=== PATIENT | male | born 1935 | race Caucasian/White ===

== ENCOUNTER 2016-10-02 09:07 | Inpatient (IN) | payer OTHER ==
[2016-10-02 09:27] VITALS: BMI 34.9
--- NOTE | 2016-10-02 09:30 | PDOC ---
History of Present Illness - General History Source: Patient Exam Limitations: No Limitations - History of Present Illness Initial Comments: 10/02/16 09:51 The patient is a 81 year old male with significant medical hx of dementia, aortic aneurysm (mild ascending aortic aneurysm (4.2 cm) per 01/[address]), CAD ( stents x2 in 2010; thrombectomy & PCI of proximal and mid LAD with Promus Premier stents and PTCA of D1 on 12/18/2015 at [facility] for acute/subacute anteroseptal [place]), recent Tib/Fib fracture, HTN, hyperlipidemia, constipation, diverticulosis, DM and hypothyroidism, who presents to the ED with intermittent tremors since last night. Patient states he is not speaking properly but can't describe the issue well. Patient states he was also experiencing right lower abdominal pain last night that resolved itself. Patient denies feeling cold. Patient denies chest pain. Patient denies SOB. Patient denies fever, nausea, vomiting, diarrhea. PCP: Dr. Rowan <Daniel Leach - Last Filed: 10/02/16 13:17> <Desiree Aguilar - Last Filed: 10/02/16 19:02> - General Chief Complaint: Tremors Stated Complaint: shaking Time Seen by Provider: 10/02/16 09:15 Past History <Daniel Leach - Last Filed: 10/02/16 13:17> - Past Medical History Anemia: No Asthma: No Cancer: No Cardiac Disorders: Yes (2 cardiac stents) CVA: No COPD: No CHF: No DVT: No Dementia: Yes Diabetes: Yes (IDDM) Dialysis: No GI Disorders: Yes (DIVERTICULITIS) Disorders: No HTN: Yes Hypercholesterolemia: Yes HIV: No Kidney Stones: No Liver Disease: No Psychiatric Problems: No Suicide Attempt (Hx): No Seizures: No Thyroid Disease: Yes (HYPOTHYROIDISM) Lung CA: No - Surgical History Abdominal Surgery: Yes (FOR DIVERTICULITIS; partial colectomy) Appendectomy: No Cardiac Surgery: Yes (STENT X 2) Cholecystectomy: No Gastric Stapling: No GI Surgery: Yes Lung Surgery: No Neurologic Surgery: No Orthopedic Surgery: No - Immunization History Td Vaccination: No TDAP Vaccination: (unknown on last date now will receive on 12/18/2015) Immunization Up to Date: Yes (FLU ) - Psycho/Social/Smoking Cessation Hx Anxiety: No Suicidal Ideation: No Smoking Status: No Smoking History: Never smoked Have you smoked in the past 12 months: No Number of Cigarettes Smoked Daily: 0 Hx Alcohol Use: No Drug/Substance Use Hx: No Substance Use Type: None Hx Substance Use Treatment: No <AguilarDesiree - Last Filed: 10/02/16 19:02> - Past Medical History Allergies/Adverse Reactions: Allergies Allergy/AdvReac Type Severity Reaction Status Date / Time No Known Drug Allergies Allergy Verified 10/02/16 09:16 Home Medications: Ambulatory Orders Acetaminophen [Pain Relief] 650 mg PO PRN PRN 07/29/16 Albuterol 2.5/Ipratropium 0.5 [Duoneb -] 1 neb NEB Q4H PRN 07/29/16 Alprazolam [Xanax] 0.25 mg PO BID 07/29/16 Atorvastatin Ca [Lipitor] 80 mg PO HS 07/29/16 Bacitracin - [Bacitracin Topical Ointment -] 1 applic TP DAILY 07/29/16 Carvedilol 3.125 mg PO BID 07/29/16 Cetirizine HCl [Zyrtec -] 10 mg PO DAILY 07/29/16 Duloxetine HCl [Cymbalta] 60 mg PO DAILY 07/29/16 Enalapril Maleate 2.5 mg PO DAILY 07/29/16 Gabapentin 200 mg PO BID 07/29/16 Insulin Detemir [Levemir Flextouch] 40 unit SQ BID 07/29/16 Lipase/Protease/Amylase [Creon Dr 6,000 Units Capsule] 1 cap PO TID 07/29/16 Methylnaltrexone [place] [Relistor] 12 mg SQ DAILY 07/29/16 Montelukast Na [Singulair -] 10 mg PO HS 07/29/16 Omeprazole 20 mg PO BID 07/29/16 Oxycodone HCl 5 mg PO Q4H PRN 07/29/16 Polyethylene Glycol 3350 [Miralax 119 gm Btl -] 17 gm PO DAILY 07/29/16 Tamsulosin HCl [Flomax] 0.4 mg PO DAILY 07/29/16 Ticagrelor [Brilinta] 90 mg PO BID 07/29/16 Aspirin Coated [Ecotrin -] 81 mg PO DAILY tablet.ec 08/04/16 Chlorhexidine Gluconate [Peridex -] 15 ml MM BID cup 08/04/16 Ranolazine [Ranexa -] 500 mg PO BID tab 08/04/16 Acetylcysteine 10% [Mucomyst] 200 mg NEB TID 10/02/16 Prednisone [Deltasone -] 20 mg PO DAILY 10/02/16 Review of Systems - Review of Systems Able to Perform ROS?: Yes Comments:: 10/02/16 09:52 GENERAL/CONSTITUTIONAL: + shaking. No fever. No weakness. HEAD, EYES, EARS, NOSE AND THROAT: No change in vision. No ear pain or discharge. No sore throat. CARDIOVASCULAR: No chest pain or shortness of breath. RESPIRATORY: No cough, wheezing, or hemoptysis. GASTROINTESTINAL: No nausea, vomiting, diarrhea or constipation. GENITOURINARY: No dysuria, frequency, or change in urination. MUSCULOSKELETAL: No joint or muscle swelling or pain. No neck or back pain. SKIN: No rash NEUROLOGIC: No headache, vertigo, loss of consciousness, or change in strength/ sensation. ENDOCRINE: No increased thirst. No abnormal weight change. HEMATOLOGIC/LYMPHATIC: No anemia, easy bleeding, or history of blood clots. ALLERGIC/IMMUNOLOGIC: No hives or skin allergy. <Daniel Leach - Last Filed: 10/02/16 13:17> *Physical Exam - Vital Signs Last Vital Signs Temp Pulse Resp BP Pulse Ox 98.4 F 81 18 142/57 100 10/02/16 09:25 10/02/16 09:25 10/02/16 09:25 10/02/16 09:25 10/02/16 09:25 <Daniel Leach - Last Filed: 10/02/16 13:17> - Vital Signs Last Vital Signs Temp Pulse Resp BP Pulse Ox 98.4 F 81 18 142/57 100 10/02/16 09:25 10/02/16 09:25 10/02/16 09:25 10/02/16 09:25 10/02/16 09:25 - Physical Exam Comments: GENERAL: Awake, alert, and fully oriented, in no acute distress. Obese. HEAD: No signs of trauma EYES: PERRLA, EOMI, sclera anicteric, conjunctiva clear ENT: Auricles normal inspection, hearing grossly normal, nares patent, oropharynx clear without exudates. Dry mucosa. NECK: Normal ROM, supple, no lymphadenopathy, JVD, or masses LUNGS: Good air entry B/L. Dec breath sounds L base. HEART: Irregularly irregular. ABDOMEN: Soft, nontender, normoactive bowel sounds. No guarding, no rebound. No masses EXTREMITIES: Normal range of motion, no edema. No clubbing or cyanosis. No cords, erythema, or tenderness NEUROLOGICAL: Cranial nerves II through XII grossly intact. Normal speech, normal gait SKIN: Warm, Dry, normal turgor, no rashes or lesions noted. <Desiree Aguilar - Last Filed: 10/02/16 19:02> Heart Score/ECG Review - ECG Impressions Comment:: EKG read 09:28- afib, rate 68 bpm Compared with prior EKGs from 08/03/16 and 09/19/16- no afib present. <Desiree Aguilar - Last Filed: 10/02/16 19:02> ED Treatment Course - LABORATORY CBC & Chemistry Diagram: 10/02/16 10:00 10/02/16 10:00 <Daniel Leach - Last Filed: 10/02/16 13:17> - LABORATORY CBC & Chemistry Diagram: 10/02/16 10:00 10/02/16 10:00 <Desiree Aguilar - Last Filed: 10/02/16 19:02> Medical Decision Making - Medical Decision Making 10/02/16 12:40 Discussed case with PCP ( Dr. Rowan) at 12:40. 10/02/16 12:[address] Gonzales (cardiology) at 12:54. 10/02/16 13:[address] Gonzales at 13:17 <Daniel Leach - Last Filed: 10/02/16 13:17> - Medical Decision Making 10/02/16 13:21 Case d/w Dr. Gonzales. Pt with multiple comorbidities, now with new onset afib. Will evaluate. <Desiree Aguilar - Last Filed: 10/02/16 19:02> *DC/Admit/Observation/Transfer - Attestations Scribe Attestion: 10/02/16 09:53 Documentation prepared by Daniel Leach, acting as medical assistant instructor for Desiree Aguilar MD, . <Daniel Leach - Last Filed: 10/02/16 13:17> - Discharge Dispostion Admit: Yes <Desiree Aguilar - Last Filed: 10/02/16 19:02> Diagnosis at time of Disposition: Atrial fibrillation Qualifiers: Atrial fibrillation type: unspecified Qualified Code(s): I48.91 - Unspecified atrial fibrillation - Discharge Dispostion Condition at time of disposition: Stable - Referrals
[2016-10-02 10:35] LABS: BASOPHIL 0.8 % (0-2.0); BILIRUBIN,TOTAL 0.6 mg/dL (0.2-1.0); CALCIUM 8.6 mg/dL (8.5-10.1); CREATININE 1.2 mg/dL (0.7-1.3); EOSINOPHIL 1.7 % (0-4.5); MCHC 33.1 g/dl (32.0-35.9); MEAN CELL VOLUME 87.7 fl (80-96); NEUTROPHILS 76.3 % (42.8-82.8); PLATELET COUNT 247 K/MM3 (134-434); RDW 18.7 % (11.9-15.9); TOT PROT 6.7 g/dl (6.4-8.2); WHITE BLOOD COUNT 12.9 K/mm3 (4.0-10.0)
[2016-10-02 10:37] LABS: TROPONIN I 0.06 ng/ml (0.00-0.05)
[2016-10-02 10:41] LABS: URINE APPEARANCE CLEAR; URINE BILIRUBIN NEGATIVE (NEGATIVE); URINE BLOOD NEGATIVE (NEGATIVE); URINE COLOR LTYELLOW; URINE GLUCOSE (UA) 2+ (NEGATIVE); URINE KETONE NEGATIVE (NEGATIVE); URINE LEUK ESTERASE NEGATIVE (NEGATIVE); URINE NITRITE NEGATIVE (NEGATIVE); URINE PROTEIN NEGATIVE (NEGATIVE); URINE UROBILINOGEN NEGATIVE E.U./dl (0.2-1.0)
[2016-10-02 11:07] LABS: INR 1.05 (0.82-1.09); PROTHROMBIN TIME (PATIENT) 11.6 SEC (9.98-11.88)
[2016-10-02] MEDS ORDERED: POTASSIUM CHLORIDE TABS 20 MEQ TABLET.ER (FP) PO ONE ×3 (11:26→11:58)
--- NOTE | 2016-10-02 13:39 | CONSULT ---
Consult Consult Specialty:: Cardiology Referred by:: Dr. Aguilar/Dr. Rowan Reason for Consultation:: New onset atrial fibrillation - History of Present Illness History of Present Illness: 81 yo male with remote smoking history, HTN, hyperlipidemia, DM, CAD -> reported stents x2 in 2010 (no prior [place]), acute/subacute anteroseptal [place] on 12/17 and underwent thrombectomy and PCI of proximal and mid LAD with Promus Premier stents and PTCA of D1 at [facility], and ischemic cardiomyopathy (LVEF 34 % per 02/16/16 nuclear stress test), who presents to ED with intermittent tremors of hands/arms since last evening. Denies chest pain, palpitations, orthopnea, or dyspnea. Patient was noted to be in new onset atrial fibrillation per ECG. 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 No: Alzheimer's Cardio/Vascular: Yes: Aneurysm (mild ascending aortic aneurysm (4.2 cm) per chest CT), CAD (stents x2 in 2010; thrombectomy & PCI of proximal and mid LAD with Promus Premier stents and PTCA of D1 on 12/18/15 at [facility] for acute/ subacute anteroseptal [place]), HTN, Hyperlipdemia, Other (ischemic cardiomyopathy ( LVEF 34% per 02/16/16 nuclear study)) Gastrointestinal: Yes: Constipation, Diverticulosis Musculoskeletal: Yes: Other (rib fx's right) Endocrine: Yes: Diabetes Mellitus, Hypothyroidism - Past Surgical History Past Surgical History: Yes: Arthrosocopy (Right knee arthroscopy w/ partial medial and lateral meniscectomy 09/01/15), Colectomy Additional Surgical History: Left tib/fib fracture s/p lM linda 07/14/16 - Alcohol/Substance Use Hx Alcohol Use: No History of Substance Use: reports: None - Smoking History Smoking history: Never smoked Have you smoked in the past 12 months: No Aproximately how many cigarettes per day: 0 - Social History Usual Living Arrangement: Correction (since last d/c) 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 History of Recent Travel: No Home Medications - Allergies Allergies/Adverse Reactions: Allergies Allergy/AdvReac Type Severity Reaction Status Date / Time No Known Drug Allergies Allergy Verified 10/02/16 09:16 - Home Medications Home Medications: Ambulatory Orders Acetaminophen [Pain Relief] 650 mg PO PRN PRN 07/29/16 Albuterol 2.5/Ipratropium 0.5 [Duoneb -] 1 neb NEB Q4H PRN 07/29/16 Alprazolam [Xanax] 0.25 mg PO BID 07/29/16 Atorvastatin Ca [Lipitor] 80 mg PO HS 07/29/16 Bacitracin - [Bacitracin Topical Ointment -] 1 applic TP DAILY 07/29/16 Carvedilol 3.125 mg PO BID 07/29/16 Cetirizine HCl [Zyrtec -] 10 mg PO DAILY 07/29/16 Duloxetine HCl [Cymbalta] 60 mg PO DAILY 07/29/16 Enalapril Maleate 2.5 mg PO DAILY 07/29/16 Gabapentin 200 mg PO BID 07/29/16 Insulin Detemir [Levemir Flextouch] 40 unit SQ BID 07/29/16 Lipase/Protease/Amylase [Creon Dr 6,000 Units Capsule] 1 cap PO TID 07/29/16 Methylnaltrexone [place] [Relistor] 12 mg SQ DAILY 07/29/16 Montelukast Na [Singulair -] 10 mg PO HS 07/29/16 Omeprazole 20 mg PO BID 07/29/16 Oxycodone HCl 5 mg PO Q4H PRN 07/29/16 Polyethylene Glycol 3350 [Miralax 119 gm Btl -] 17 gm PO DAILY 07/29/16 Tamsulosin HCl [Flomax] 0.4 mg PO DAILY 07/29/16 Ticagrelor [Brilinta] 90 mg PO BID 07/29/16 Aspirin Coated [Ecotrin -] 81 mg PO DAILY tablet.ec 08/04/16 Chlorhexidine Gluconate [Peridex -] 15 ml MM BID cup 08/04/16 Ranolazine [Ranexa -] 500 mg PO BID tab 08/04/16 Acetylcysteine 10% [Mucomyst] 200 mg NEB TID 10/02/16 Prednisone [Deltasone -] 20 mg PO DAILY 10/02/16 Family Disease History - Family Disease History Family History: Denies (premature CAD or SCD) Review of Systems - Review of Systems Constitutional: reports: No Symptoms Eyes: reports: No Symptoms HENT: reports: No Symptoms Neck: reports: No Symptoms Cardiovascular: reports: No Symptoms Respiratory: reports: No Symptoms Gastrointestinal: reports: No Symptoms Genitourinary: reports: No Symptoms Neurological: reports: Tremors Endocrine: reports: No Symptoms Hematology/Lymphatic: reports: No Symptoms Vital Signs: Vital Signs Temperature 98.3 F 10/02/16 10:55 Pulse Rate 63 10/02/16 10:55 Respiratory Rate 20 10/02/16 10:55 Blood Pressure 141/80 10/02/16 10:55 O2 Sat by Pulse Oximetry (%) 100 10/02/16 10:55 Constitutional: Yes: No Distress Eyes: Yes: Conjunctiva Clear, EOM Intact HENT: Yes: Atraumatic, Normocephalic Respiratory: Yes: CTA Bilaterally Gastrointestinal: Yes: Normal Bowel Sounds, Soft. No: Tenderness Cardiovascular: Yes: Pulse Irregular JVD: No Carotid Bruit: No Heart Sounds: Yes: S1, S2 Murmur: No: Systolic Murmur Edema: No Neurological: Yes: Alert, Oriented Psychiatric: Yes: WNL - Other Data Labs, Other Data: INR, PTT INR 1.05 (0.82-1.09) 10/02/16 10:00 10/02/16 ECG: Atrial fibrillation, rate 68 bpm, anteroseptal infarct (old), non- specific ST-T abnormalities. Imaging - Results Chest X-ray: Image Reviewed (No effusions) Assessment/Plan 81 yo male with remote smoking history, HTN, hyperlipidemia, DM, CAD -> reported stents x2 in 2010 (no prior [place]), acute/subacute anteroseptal [place] on 12/17 and underwent thrombectomy and PCI of proximal and mid LAD with Promus Premier stents and PTCA of D1 at [facility], and ischemic cardiomyopathy (LVEF 34 % per 02/16/16 nuclear stress test). Patient presented to ED with intermittent tremors of hands/arms since last evening. Patient was also incidently noted to be in new onset atrial fibrillation. Currently rate controlled. Denies chest pain, palpitations, orthopnea, or dyspnea. [id number] score = 5 (6.7% annual risk of stroke) Risks and benefits of anticoagulation were discussed with patient. It was decided to try coumadin 5 mg po daily. INR goal 2-3. Do not need to cover with lovenox. Patient currently has Medicare, however, if patient can afford one of the NOACs (novel oral anticoagulants), then he can be changed to Xarelto or Eliquis. Patient will be at increased risk of bleeding given that he is also on aspirin and Brilinta for anteroseptal [place] on 12/18/15. However, Brilinta should ideally be continued until 11/2016 (1 year after [place]). Will continue Brilinta until that time unless patient should develop bleeding complications prior to that date. No further cardiac testing needed at this time. Will continue patient's home cardiac medical regimen. Will follow. Call with questions.
[2016-10-02] MEDS ORDERED: WARFARIN NA 5 MG TABLET (UD) ONE (14:08)
[2016-10-02] MEDS ORDERED: WARFARIN NA 5 MG TABLET (UD) PO ONE (14:15)
--- NOTE | 2016-10-02 17:17 | EKG ---
Test Reason : Blood Pressure : / mmHG Vent. Rate : 068 BPM Atrial Rate : 064 BPM P-R Int : 000 ms QRS Dur : 102 ms QT Int : 482 ms P-R-T Axes : 000 -02 089 degrees QTc Int : 512 ms ATRIAL FIBRILLATION ANTEROSEPTAL INFARCT (CITED ON OR BEFORE 18-DEC-2015) ABNORMAL ECG WHEN COMPARED WITH ECG OF 19-SEP-2016 15:31, ATRIAL FIBRILLATION HAS REPLACED SINUS RHYTHM Confirmed by DAVID LEDESMA, JEN ([id number]) on 10/02/2016 5:16:54 PM Referred By: Confirmed By:JEN HERNANDEZ MD
--- NOTE | 2016-10-02 17:24 | EKG ---
Test Reason : Blood Pressure : / mmHG Vent. Rate : 063 BPM Atrial Rate : 070 BPM P-R Int : 000 ms QRS Dur : 096 ms QT Int : 470 ms P-R-T Axes : 000 -12 185 degrees QTc Int : 480 ms ATRIAL FIBRILLATION ANTEROSEPTAL INFARCT (CITED ON OR BEFORE 18-DEC-2015) ABNORMAL ECG WHEN COMPARED WITH ECG OF 02-OCT-2016 09:25, NO SIGNIFICANT CHANGE WAS FOUND Confirmed by DAVID LEDESMA, JEN ([id number]) on 10/02/2016 5:23:47 PM Referred By: Confirmed By:JEN HERNANDEZ MD
[2016-10-02] MEDS ORDERED: PT OWN MED DRAWER 7, Y5N ONE (21:43)
[2016-10-02] MEDS: CARVEDILOL 3.125 MG TABLET (FP) PO SCH (22:33)
[2016-10-02] MEDS: TICAGRELOR 90 MG TABLET PO SCH (22:33)
[2016-10-02] MEDS: ATORVASTATIN CA 80 MG TABLET (FP) PO SCH (22:33)
[2016-10-03 07:30] LABS: INR 1.02 (0.82-1.09); PROTHROMBIN TIME (PATIENT) 11.2 SEC (9.98-11.88)
[2016-10-03 07:37] LABS: CALCIUM 8.7 mg/dL (8.5-10.1)
[2016-10-03 07:40] LABS: CREATININE 1.1 mg/dL (0.7-1.3)
--- NOTE | 2016-10-03 08:05 | HP ---
Admitting History and Physical - Admission History of Present Illness: 81 year old male with significant medical hx of dementia, aortic aneurysm (mild ascending aortic aneurysm (4.2 cm) per 01/[address]), CAD ( stents x2 in 2010; thrombectomy & PCI of proximal and mid LAD with Promus Premier stents and PTCA of D1 on 12/18/2015 at [facility] for acute/subacute anteroseptal [place]), recent Tib/ Fib fracture, HTN, hyperlipidemia, constipation, diverticulosis, DM and hypothyroidism, who presents to the ED with intermittent tremors since last night. Patient states he is not speaking properly but can't describe the issue well. Patient states he was also experiencing right lower abdominal pain last night that resolved itself. 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 No: Alzheimer's Cardiovascular: Yes: Aneurysm (mild ascending aortic aneurysm (4.2 cm) per 01/[address]), CAD (stents x2 in 2010; thrombectomy & PCI of proximal and mid LAD with Promus Premier stents and PTCA of D1 on 12/18/15 at [facility] for acute/ subacute anteroseptal [place]), HTN, Hyperlipdemia, Other (ischemic cardiomyopathy ( LVEF 34% per 02/16/16 nuclear study)) Gastrointestinal: Yes: Constipation, Diverticulosis Heme/Onc: Yes: Anemia Musculoskeletal: Yes: Other (rib fx's right) Endocrine: Yes: Diabetes Mellitus, Hypothyroidism - Past Surgical History Past Surgical History: Yes: Arthrosocopy (Right knee arthroscopy w/ partial medial and lateral meniscectomy 09/01/15), Colectomy - Smoking History Smoking history: Never smoked Have you smoked in the past 12 months: No Aproximately how many cigarettes per day: 0 - Alcohol/Substance Use Hx Alcohol Use: No History of Substance Use: reports: None - Social History 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 History of Recent Travel: No Home Medications - Allergies Allergies/Adverse Reactions: Allergies Allergy/AdvReac Type Severity Reaction Status Date / Time No Known Drug Allergies Allergy Verified 10/02/16 09:16 - Home Medications Home Medications: Ambulatory Orders Acetaminophen [Pain Relief] 650 mg PO PRN PRN 07/29/16 Albuterol 2.5/Ipratropium 0.5 [Duoneb -] 1 neb NEB Q4H PRN 07/29/16 Alprazolam [Xanax] 0.25 mg PO BID 07/29/16 Atorvastatin Ca [Lipitor] 80 mg PO HS 07/29/16 Bacitracin - [Bacitracin Topical Ointment -] 1 applic TP DAILY 07/29/16 Carvedilol 3.125 mg PO BID 07/29/16 Cetirizine HCl [Zyrtec -] 10 mg PO DAILY 07/29/16 Duloxetine HCl [Cymbalta] 60 mg PO DAILY 07/29/16 Enalapril Maleate 2.5 mg PO DAILY 07/29/16 Gabapentin 200 mg PO BID 07/29/16 Insulin Detemir [Levemir Flextouch] 40 unit SQ BID 07/29/16 Lipase/Protease/Amylase [Creon Dr 6,000 Units Capsule] 1 cap PO TID 07/29/16 Methylnaltrexone [place] [Relistor] 12 mg SQ DAILY 07/29/16 Montelukast Na [Singulair -] 10 mg PO HS 07/29/16 Omeprazole 20 mg PO BID 07/29/16 Oxycodone HCl 5 mg PO Q4H PRN 07/29/16 Polyethylene Glycol 3350 [Miralax 119 gm Btl -] 17 gm PO DAILY 07/29/16 Tamsulosin HCl [Flomax] 0.4 mg PO DAILY 07/29/16 Ticagrelor [Brilinta] 90 mg PO BID 07/29/16 Aspirin Coated [Ecotrin -] 81 mg PO DAILY tablet.ec 08/04/16 Chlorhexidine Gluconate [Peridex -] 15 ml MM BID cup 08/04/16 Ranolazine [Ranexa -] 500 mg PO BID tab 08/04/16 Acetylcysteine 10% [Mucomyst] 200 mg NEB TID 10/02/16 Prednisone [Deltasone -] 20 mg PO DAILY 10/02/16 Review of Systems - Review of Systems Cardiovascular: denies: Chest Pain, Palpitations, Shortness of Breath Respiratory: reports: SOB on Exertion Gastrointestinal: reports: Bloating Physical Examination Vital Signs: Vital Signs Temperature 98.0 F 10/03/16 02:44 Pulse Rate 65 10/03/16 02:44 Respiratory Rate 18 10/03/16 02:44 Blood Pressure 116/67 10/03/16 02:44 O2 Sat by Pulse Oximetry (%) 94 L 10/02/16 15:40 Cardiovascular: Yes: Murmur, S1, S2 Respiratory: Yes: Regular, CTA Bilaterally Gastrointestinal: Yes: Normal Bowel Sounds, Soft, Abdomen, Obese, Distention. No: Tenderness Edema: No Imaging - Results X-ray: Report Reviewed Cat Scan: Report Reviewed Problem List - Problems (1) Atrial fibrillation Assessment/Plan: CARDIO CONSULT NOTED ON COUMADIN MONITOR LABS Code(s): I48.91 - UNSPECIFIED ATRIAL FIBRILLATION Qualifiers: Atrial fibrillation type: unspecified Qualified Code(s): I48.91 - Unspecified atrial fibrillation (2) CAD in [place] artery Assessment/Plan: CONTINUE WITH ASA/BRILLINTA Code(s): I25.10 - ATHSCL HEART DISEASE OF [place] CORONARY ARTERY W/O ANG PCTRS (3) Abdominal distension (gaseous) Assessment/Plan: ADD SIMITHICONE ON PPI Code(s): R14.0 - ABDOMINAL DISTENSION (GASEOUS) (4) Diabetes Assessment/Plan: INSULIN BGM Code(s): E11.9 - TYPE 2 DIABETES MELLITUS WITHOUT COMPLICATIONS Qualifiers: Diabetes mellitus type: type 2 (5) Fracture, tibia and fibula, shaft Code(s): S82.209A - UNSP FRACTURE OF SHAFT OF UNSP TIBIA, INIT FOR CLOS FX S82.409A - UNSP FRACTURE OF SHAFT OF UNSP FIBULA, INIT FOR CLOS FX Qualifiers : Encounter type: initial encounter Fracture type: closed Laterality : left Qualified Code(s): S82.202A - Unspecified fracture of shaft of left tibia, initial encounter for closed fracture; S82.402A - Unspecified fracture of shaft of left fibula, initial encounter for closed fracture
[2016-10-03] MEDS ORDERED: ALPRAZolam 0.25 MG TABLET PO PRN (08:07)
[2016-10-03] MEDS ORDERED: ALBUTEROL SO4 2.5/IPRATROPIUM 0.5 INH SOL 3 ML VIAL.NEB. NEB PRN (08:07)
[2016-10-03] MEDS ORDERED: PATIENT'S OWN MEDICATION (NON-FORMULARY) (Acetaminophen [Pain Relief] 650 MG) PO PRN (08:07)
[2016-10-03] MEDS: CARVEDILOL 3.125 MG TABLET (FP) PO SCH ×2 (09:00→22:33)
[2016-10-03] MEDS: FUROSEMIDE 40 MG TABLET (FP) PO SCH (09:00)
[2016-10-03] MEDS: LISINOPRIL 5 MG TABLET (FP) PO SCH (09:00)
[2016-10-03] MEDS: TICAGRELOR 90 MG TABLET PO SCH ×2 (09:00→22:38)
[2016-10-03] MEDS: SPIRONOLACTONE 25 MG TABLET (FP) PO SCH (09:00)
[2016-10-03] MEDS: ASPIRIN COATED 81 MG TABLET.EC PO SCH (09:00)
[2016-10-03] MEDS: ACETAMINOPHEN 325 MG TABLET (FP) PO PRN (09:01)
[2016-10-03] MEDS: predniSONE 10 MG TABLET (UD) PO SCH (10:03)
[2016-10-03] MEDS: TAMSULOSIN HCL 0.4 MG CAP.ER.24H (FP) PO SCH (10:03)
[2016-10-03] MEDS: GABAPENTIN 100 MG CAPSULE (FP) PO SCH ×2 (10:03→22:33)
[2016-10-03] MEDS: DULoxetine HCL 30 MG CAPSULE.DR (FP) PO SCH (10:03)
[2016-10-03] MEDS: POLYETHYLENE GLYCOL 3350 119 GM BTL PO SCH (10:04)
[2016-10-03] MEDS: SIMETHICONE 80 MG TAB.CHEW (FP) PO SCH ×4 (10:04→22:33)
[2016-10-03] MEDS: LORATADINE 10 MG TABLET PO SCH (10:04)
[2016-10-03] MEDS: PANTOPRAZOLE 40 MG TABLET (FP) PO SCH (10:04)
[2016-10-03] MEDS: RANOLAZINE E.R. 500 MG TABLET (FP) PO SCH ×2 (10:04→22:33)
--- NOTE | 2016-10-03 10:32 | PN ---
Progress Note, Physician History of Present Illness: Reports some chest discomfort last night. Denies dyspnea. - Current Medication List Current Medications: Active Medications Acetaminophen (Tylenol -) 650 mg PO Q6H PRN PRN Reason: FEVER OR PAIN Last Admin: 10/03/16 09:01 Dose: 650 mg Albuterol/Ipratropium (Duoneb -) 1 amp NEB Q4H PRN PRN Reason: sob Alprazolam (Xanax -) 0.25 mg PO BID PRN PRN Reason: ANXIETY Aspirin (Ecotrin -) 81 mg PO DAILY [facility] Last Admin: 10/03/16 09:00 Dose: 81 mg Atorvastatin Calcium (Lipitor -) 80 mg PO HS [facility] Last Admin: 10/02/16 22:33 Dose: 80 mg Carvedilol (Coreg -) 3.125 mg PO BID [facility] Last Admin: 10/03/16 09:00 Dose: 3.125 mg Duloxetine HCl (Cymbalta -) 60 mg PO DAILY [facility] Last Admin: 10/03/16 10:03 Dose: 60 mg Furosemide (Lasix -) 40 mg PO DAILY [facility] Last Admin: 10/03/16 09:00 Dose: 40 mg Gabapentin (Neurontin -) 200 mg PO BID [facility] Last Admin: 10/03/16 10:03 Dose: 200 mg Insulin Aspart (Novolog Vial Sliding Scale -) 1 vial SQ ACHS [facility] PRN Reason: Protocol Insulin Detemir (Levemir Vial) 25 units SQ BIDI [facility] Lisinopril (Prinivil) 5 mg PO DAILY [facility] Last Admin: 10/03/16 09:00 Dose: 5 mg Loratadine (Claritin -) 10 mg PO DAILY [facility] Last Admin: 10/03/16 10:04 Dose: 10 mg Methylnaltrexone [place] (Relistor -) 12 mg SQ DAILY [facility] Montelukast Sodium (Singulair -) 10 mg PO HS [facility] Pancrelipase (Creon Dr 6,000 Units Capsule) 1 cap PO TID [facility] Pantoprazole Sodium (Protonix -) 40 mg PO DAILY [facility] Last Admin: 10/03/16 10:04 Dose: 40 mg Polyethylene Glycol (Miralax (For Daily Use) -) 17 gm PO DAILY [facility] Last Admin: 10/03/16 10:04 Dose: Not Given Prednisone (Deltasone -) 10 mg PO DAILY [facility] Last Admin: 10/03/16 10:03 Dose: 10 mg Ranolazine (Ranexa -) 500 mg PO BID [facility] Last Admin: 10/03/16 10:04 Dose: 500 mg Simethicone (Mylicon -) 80 mg PO QID [facility] Last Admin: 10/03/16 10:04 Dose: 80 mg Spironolactone (Aldactone -) 25 mg PO DAILY [facility] Last Admin: 10/03/16 09:00 Dose: 25 mg Tamsulosin HCl (Flomax -) 0.4 mg PO DAILY@0830 [facility] Last Admin: 10/03/16 10:03 Dose: 0.4 mg Ticagrelor (Brilinta -) 90 mg PO BID [facility] Last Admin: 10/03/16 09:00 Dose: 90 mg Warfarin Sodium (Coumadin -) 5 mg PO DAILY@1800 [facility] - Objective Vital Signs: Vital Signs Temperature 98.0 F 10/03/16 02:44 Pulse Rate 65 10/03/16 02:44 Respiratory Rate 18 10/03/16 02:44 Blood Pressure 116/67 10/03/16 02:44 O2 Sat by Pulse Oximetry (%) 94 L 10/02/16 15:40 Constitutional: Yes: No Distress Eyes: Yes: Conjunctiva Clear, EOM Intact HENT: Yes: Atraumatic, Normocephalic Cardiovascular: Yes: Regular Rate and Rhythm Respiratory: Yes: CTA Bilaterally Gastrointestinal: Yes: Normal Bowel Sounds. No: Soft, Tenderness Edema: No Neurological: Yes: Alert, Oriented, Cran Nerves II-XII Intact Labs: CBC, BMP 10/03/16 05:35 INR, PTT INR 1.02 (0.82-1.09) 10/03/16 05:35 Assessment/Plan 81 yo male with remote smoking history, HTN, hyperlipidemia, DM, CAD -> reported stents x2 in 2010 (no prior SC), acute/subacute anteroseptal SC on 12/17 and underwent thrombectomy and PCI of proximal and mid LAD with Promus Premier stents and PTCA of D1 at [facility], and ischemic cardiomyopathy (LVEF 34 % per 02/16/16 nuclear stress test). Patient presented to ED with intermittent tremors of hands/arms. Patient was also incidently noted to be in new onset atrial fibrillation, but rate controlled. Currently rate controlled. [id number] score = 5 (6.7% annual risk of stroke) Risks and benefits of anticoagulation were discussed with patient. It was decided to start anticoagulation with coumadin (INR goal 2-3). Patient currently has Medicare, however, if patient can afford one of the NOACs (novel oral anticoagulants), then he can be changed to Xarelto or Eliquis. Patient will be at increased risk of bleeding given that he is also on aspirin and Brilinta for anteroseptal SC on 12/18/15. However, Brilinta should ideally be continued until 11/2016 (1 year after SC). Will continue Brilinta until that time unless patient should develop bleeding complications prior to that date. RECS: Continue current cardiac meds. Continue coumadin 5 mg po daily, goal INR 2-3. Monitor INR daily. Will repeat ECG and check troponin this AM given reported chest pain last evening. Will follow. Call with questions.
[2016-10-03] MEDS: INSULIN SLIDING SCALE (NOVOLOG) 1 VIAL SQ SCH ×3 (11:51→22:34)
[2016-10-03] MEDS: Methylnaltrexone Bromide 12 MG/0.6 ML KIT SQ SCH (11:54)
[2016-10-03] MEDS: LIPASE/PROTEASE/AMYLASE 6,000 UNIT CAPSULE PO SCH ×2 (14:20→22:38)
[2016-10-03] MEDS: INSULIN DETEMIR 100 UNITS/ML MDV SQ SCH (16:51)
[2016-10-03] MEDS: WARFARIN NA 5 MG TABLET (UD) PO SCH (17:16)
--- NOTE | 2016-10-03 18:18 | EKG ---
Test Reason : Blood Pressure : / mmHG Vent. Rate : 056 BPM Atrial Rate : 056 BPM P-R Int : 334 ms QRS Dur : 096 ms QT Int : 520 ms P-R-T Axes : 077 010 203 degrees QTc Int : 501 ms SINUS BRADYCARDIA WITH 1ST DEGREE A-V BLOCK WITH FREQUENT PREMATURE VENTRICULAR COMPLEXES ANTEROSEPTAL INFARCT (CITED ON OR BEFORE 18-DEC-2015) PROLONGED QT ABNORMAL ECG WHEN COMPARED WITH ECG OF 02-OCT-2016 15:01, SINUS RHYTHM HAS REPLACED ATRIAL FIBRILLATION VENTRICULAR ECTOPIES ARE SEEN Confirmed by DAVID LEDESMA, JEN ([id number]) on 10/03/2016 6:18:02 PM Referred By: Pasquale VÁZUQEZ Confirmed By:JEN HERNANDEZ MD
--- NOTE | 2016-10-03 18:44 | CONS ---
DATE OF CONSULTATION: 10/03/2016 REFERRING PHYSICIAN: Rodriguez Rowan MD HISTORY OF PRESENT ILLNESS: The patient is an 81-year-old man with past medical history of mild dementia, who was admitted with tremors. The patient also was noted to have slurred speech. He has a history of extensive medical problems including coronary artery disease, status post stenting, recent tibia and fibula fracture, diabetes, and mild dementia. Patient on admission underwent multiple studies including CT of the brain, which showed no acute intracranial hemorrhage, edema, midline shift, mass effect, or infarct. Chest x-ray on October 02, 2016, showed no evidence of pneumonia, congestive heart failure, pleural effusion, or pneumothorax. Blood work showed a slight elevation of WBC, 12.9, hemoglobin 11.9, platelet count normal at 247. On admission he had electrolyte abnormalities with elevated BUN 25, creatinine 1.2. His sodium was low at 133, low potassium 3.2, and low chloride 97, albumin notably low at 3.0. Troponin borderline high at 0.06. Followup chemistry showed elevation in BUN, 19, but normal creatinine 1.1, normal sodium 136, potassium normal 4.0. Patient notes that he does feel improved since admission and complains of chest pain, for which the nurse is aware. Patient is now seen in rehabilitation evaluation. Review of past medical and surgical history is extensive. History of TIA, aneurysm, coronary artery disease status post stenting x2, thrombectomy, NV, hypertension, hyperlipidemia, ischemic cardiomyopathy, left ventricular ejection fraction estimated at 34% in January 2016 on nuclear study, history of diverticulosis, rib fractures, diabetes, hypothyroidism, arthroscopic surgery on his right knee, undergoing both medial and lateral meniscectomy in August 2015, history of colectomy. SOCIAL HISTORY: Lives with family in a private house. He has no stairs to enter and stays on the 1st level. Premorbidly, he was limited with his mobility but states he was independent. CURRENT FUNCTION: Patient evaluated by Physical Therapy. Able to transfer sit to stand with supervision. Ambulated 20 feet with a rolling walker, contact guard of 1. REVIEW OF SYSTEMS: No current headache. No lightheadedness, dizziness. No blurry vision, double vision, or change in vision. No nausea, vomiting, difficulty swallowing, difficulty chewing. Does get short of breath with exertion but is more complaining of tremor. No numbness, tingling. He has chronic problems with his right knee. No bowel or bladder incontinence, fever, chills. He may have gained some weight but no unexplained weight loss. No reported falls. No rash. EXAMINATION: General: The patient is an overweight man seen lying in bed. He is in no acute distress. HEENT: He is normocephalic and atraumatic. His extraocular muscles appear intact although his eyes seem discoordinated. He does not report any double vision. No facial weakness. Neck: Supple. Extremities: Without any tenderness. Pitting edema in the lower extremities. Neuromuscular: He is awake, alert. He did not know the month but he knew he was in the hospital and why he was in the hospital. Cranial nerves 2-12 appear grossly intact. Again, his eyes do not seem to be coordinated but he has no loss of vision. He has fairly good strength and range of his upper extremities. No noted tremor. Symmetric reflexes. Normal sensation. He does have medial joint line tenderness in the right knee. Proximal weakness in both lower extremities 3+/5 but good distal strength, normal sensation to light touch and pinprick in the lower extremities but depressed to absent reflexes. Unable to stand or ambulate him at this time as no assistive device is available. OVERALL IMPRESSION: 1. Deficits in mobility and activities of daily living. 2. Deconditioning with proximal lower extremity weakness. 3. Tremors, uncertain etiology. 4. Right knee osteoarthritis with a history of arthroscopic surgery. 5. Electrolyte abnormalities, improved. 6. Mild dementia. 7. History of diabetes. 8. History of ischemic cardiomyopathy. 9. History of coronary artery disease, status post myocardial infarction. 10. History of aneurysm 4.2 cm. 11. Elevated risk for deep vein thrombosis due to immobility. 12. History of tibia and fibula fracture per history. 13. History of colectomy. PLAN, SUGGESTION: 1. Continue physical therapy at the bedside for bed mobility transfers, gait training, strengthening, reconditioning, family training if appropriate. 2. Out of bed to chair with assistance. 3. Cardiac precaution. 4. Safety/fall precaution. 5. Monitor blood work including sodium and potassium, which have been low. 6. Patient has a low albumin. Would monitor. 7. Skin precautions. Disposition may depend on availability of family for assistance and supervision, possibly home with home care versus short-term rehab in a custodial facility. Thank you very much for this consultation. ADRIEL LABOY M.D. [id number]
[2016-10-03] MEDS ORDERED: SODIUM PHOSPHATE/NA BIPHOS 133 ML ENEMA RC ONE (21:00)
[2016-10-03] MEDS ORDERED: PT OWN MED DRAWER 7, Y5N ONE (21:50)
[2016-10-03] MEDS: MONTELUKAST NA 10 MG TABLET PO SCH (22:33)
[2016-10-03] MEDS: LACTULOSE 20 GM/30 ML UDC (FOR ORAL USE ONLY) PO SCH (22:38)
[2016-10-03] MEDS: ATORVASTATIN CA 80 MG TABLET (FP) PO SCH (22:38)
[2016-10-04] MEDS: INSULIN SLIDING SCALE (NOVOLOG) 1 VIAL SQ SCH ×4 (06:11→23:36)
[2016-10-04] MEDS: LIPASE/PROTEASE/AMYLASE 6,000 UNIT CAPSULE PO SCH ×3 (06:16→17:00)
[2016-10-04] MEDS: LACTULOSE 20 GM/30 ML UDC (FOR ORAL USE ONLY) PO SCH (06:16)
[2016-10-04] MEDS: ACETAMINOPHEN 325 MG TABLET (FP) PO PRN (06:16)
[2016-10-04] MEDS: INSULIN DETEMIR 100 UNITS/ML MDV SQ SCH ×2 (06:21→16:59)
[2016-10-04 07:30] LABS: MCH 29.5 pg (25.7-33.7); MCHC 33.1 g/dl (32.0-35.9); MEAN CELL VOLUME 89.2 fl (80-96); PLATELET COUNT 254 K/MM3 (134-434); RDW 18.8 % (11.9-15.9); WHITE BLOOD COUNT 11.9 K/mm3 (4.0-10.0)
[2016-10-04 07:47] LABS: INR 1.07 (0.82-1.09); PROTHROMBIN TIME (PATIENT) 11.8 SEC (9.98-11.88)
[2016-10-04 08:18] LABS: CREATININE 1.2 mg/dL (0.7-1.3)
[2016-10-04] MEDS: TAMSULOSIN HCL 0.4 MG CAP.ER.24H (FP) PO SCH (08:22)
--- NOTE | 2016-10-04 08:40 | CONSULT ---
Consult Consult Specialty:: GI Referred by:: Dr Rowan Reason for Consultation:: Abdominal pain - History of Present Illness Chief Complaint: abdominal pain History of Present Illness: 81 M with h/o HTN, HLD, CAD s/P PCI, EF 34%, admitted with tremor and found to be in AF. Subsequently called for abdominal pain. He is well-known to our practice and often has abdomoinal snowden related to constipation. He has already responded to laxative therapy and has had several large BMs with resolution of pain - History Source History Provided By: Patient, Medical Record Limitations to Obtaining History: No Limitations - Past Medical History AIDS NURSE: Yes: TIA. No: Alzheimer's Cardio/Vascular: Yes: Aneurysm (mild ascending aortic aneurysm (4.2 cm) per chest CT), CAD (stents x2 in 2010; thrombectomy & PCI of proximal and mid LAD with Promus Premier stents and PTCA of D1 on 12/18/15 [facility] for [facility]), HTN, Hyperlipdemia, Other (ischemic cardiomyopathy ( LVEF 34% per 02/16/16 nuclear study)) Gastrointestinal: Yes: Constipation, Diverticulosis Musculoskeletal: Yes: Other (rib fx's right) Endocrine: Yes: Diabetes Mellitus, Hypothyroidism - Past Surgical History Past Surgical History: Yes: Arthrosocopy (Right knee arthroscopy w/ partial medial and lateral meniscectomy 09/01/15), Colectomy Additional Surgical History: Left tib/fib fracture s/p lM linda 07/14/16 - Alcohol/Substance Use Hx Alcohol Use: No History of Substance Use: reports: None - Smoking History Smoking history: Never smoked Have you smoked in the past 12 months: No Aproximately how many cigarettes per day: 0 - Social History Usual Living Arrangement: [facility] (since last d/c) 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 History of Recent Travel: No Home Medications - Allergies Allergies/Adverse Reactions: Allergies Allergy/AdvReac Type Severity Reaction Status Date / Time No Known Drug Allergies Allergy Verified 10/02/16 09:16 - Home Medications Home Medications: Ambulatory Orders Acetaminophen [Pain Relief] 650 mg PO PRN PRN 07/29/16 Albuterol 2.5/Ipratropium 0.5 [Duoneb -] 1 neb NEB Q4H PRN 07/29/16 Alprazolam [Xanax] 0.25 mg PO BID 07/29/16 Atorvastatin Ca [Lipitor] 80 mg PO HS 07/29/16 Bacitracin - [Bacitracin Topical Ointment -] 1 applic TP DAILY 07/29/16 Carvedilol 3.125 mg PO BID 07/29/16 Cetirizine HCl [Zyrtec -] 10 mg PO DAILY 07/29/16 Duloxetine HCl [Cymbalta] 60 mg PO DAILY 07/29/16 Enalapril Maleate 2.5 mg PO DAILY 07/29/16 Gabapentin 200 mg PO BID 07/29/16 Insulin Detemir [Levemir Flextouch] 40 unit SQ BID 07/29/16 Lipase/Protease/Amylase [Surendra Dr 6,000 Units Capsule] 1 cap PO TID 07/29/16 Methylnaltrexone [place] [Relistor] 12 mg SQ DAILY 07/29/16 Montelukast Na [Singulair -] 10 mg PO HS 07/29/16 Omeprazole 20 mg PO BID 07/29/16 Oxycodone HCl 5 mg PO Q4H PRN 07/29/16 Polyethylene Glycol 3350 [Miralax 119 gm Btl -] 17 gm PO DAILY 07/29/16 Tamsulosin HCl [Flomax] 0.4 mg PO DAILY 07/29/16 Ticagrelor [Brilinta] 90 mg PO BID 07/29/16 Aspirin Coated [Ecotrin -] 81 mg PO DAILY tablet.ec 08/04/16 Chlorhexidine Gluconate [Peridex -] 15 ml MM BID cup 08/04/16 Ranolazine [Ranexa -] 500 mg PO BID tab 08/04/16 Acetylcysteine 10% [Mucomyst] 200 mg NEB TID 10/02/16 Prednisone [Deltasone -] 20 mg PO DAILY 10/02/16 Physical Exam-GI Vital Signs: Vital Signs Temperature 98.2 F 10/04/16 06:00 Pulse Rate 78 10/04/16 06:00 Respiratory Rate 20 10/04/16 06:00 Blood Pressure 111/50 10/04/16 06:00 O2 Sat by Pulse Oximetry (%) 93 L 10/03/16 22:00 Constitutional: Yes: Obese HENT: Yes: Normocephalic Neck: Yes: Supple Cardiovascular: Yes: Regular Rate and Rhythm Respiratory: Yes: CTA Bilaterally Gastrointestinal Inspection: Yes: Distention ...Auscultate: Yes: Normoactive Bowel Sounds ...Palpate: No: Tenderness ...Percussion: Yes: Tympanitic Labs: CBC, BMP 10/04/16 05:35 10/04/16 05:35 INR, PTT INR 1.07 (0.82-1.09) 10/04/16 05:35 Hepatic Panel Total Bilirubin 0.6 mg/dL (0.2-1.0) 10/02/16 10:00 AST 12 U/L (15-37) L 10/02/16 10:00 ALT 18 U/L (12-78) 10/02/16 10:00 Alkaline Phosphatase 104 U/L (45-117) 10/02/16 10:00 Albumin 3.0 g/dl (3.4-5.0) L 10/02/16 10:00 Imaging - Results Cat Scan: Report Reviewed (2 cm hypodense lesion in the liver on CT done 09/19) Assessment/Plan 81 M with above history now with abdominal pain relieved with BM Laxative regimen ordered including enemas AXR as quite distended Liver lesion (new) noted ion CT a few weeks ago. Rec AFP, [id number] at this time
--- NOTE | 2016-10-04 09:17 | PN ---
Progress Note, Physician History of Present Illness: feels better - Current Medication List Current Medications: Active Medications Acetaminophen (Tylenol -) 650 mg PO Q6H PRN PRN Reason: FEVER OR PAIN Last Admin: 10/04/16 06:16 Dose: 650 mg Albuterol/Ipratropium (Duoneb -) 1 amp NEB Q4H PRN PRN Reason: sob Alprazolam (Xanax -) 0.25 mg PO BID PRN PRN Reason: ANXIETY Aspirin (Ecotrin -) 81 mg PO DAILY [facility] Last Admin: 10/03/16 09:00 Dose: 81 mg Atorvastatin Calcium (Lipitor -) 80 mg PO HS [facility] Last Admin: 10/03/16 22:38 Dose: 80 mg Bisacodyl (Dulcolax -) 5 mg PO DAILY [facility] Carvedilol (Coreg -) 3.125 mg PO BID [facility] Last Admin: 10/03/16 22:33 Dose: 3.125 mg Duloxetine HCl (Cymbalta -) 60 mg PO DAILY [facility] Last Admin: 10/03/16 10:03 Dose: 60 mg Furosemide (Lasix -) 40 mg PO DAILY [facility] Last Admin: 10/03/16 09:00 Dose: 40 mg Gabapentin (Neurontin -) 200 mg PO BID [facility] Last Admin: 10/03/16 22:33 Dose: 200 mg Insulin Aspart (Novolog Vial Sliding Scale -) 1 vial SQ ACHS [facility] PRN Reason: Protocol Last Admin: 10/04/16 06:11 Dose: Not Given Insulin Detemir (Levemir Vial) 25 units SQ BIDI [facility] Last Admin: 10/04/16 06:21 Dose: 25 units Lisinopril (Prinivil) 5 mg PO DAILY [facility] Last Admin: 10/03/16 09:00 Dose: 5 mg Loratadine (Claritin -) 10 mg PO DAILY [facility] Last Admin: 10/03/16 10:04 Dose: 10 mg Methylnaltrexone [place] (Relistor -) 12 mg SQ DAILY [facility] Last Admin: 10/03/16 11:54 Dose: 12 mg Montelukast Sodium (Singulair -) 10 mg PO HS [facility] Last Admin: 10/03/16 22:33 Dose: 10 mg Pancrelipase (Creon Dr 6,000 Units Capsule) 4 cap PO TIDCM [facility] Pantoprazole Sodium (Protonix -) 40 mg PO DAILY [facility] Last Admin: 10/03/16 10:04 Dose: 40 mg Polyethylene Glycol (Miralax (For Daily Use) -) 17 gm PO DAILY [facility] Last Admin: 10/03/16 10:04 Dose: Not Given Prednisone (Deltasone -) 10 mg PO DAILY [facility] Last Admin: 10/03/16 10:03 Dose: 10 mg Ranolazine (Ranexa -) 500 mg PO BID [facility] Last Admin: 10/03/16 22:33 Dose: 500 mg Simethicone (Mylicon -) 80 mg PO QID [facility] Last Admin: 10/03/16 22:33 Dose: 80 mg Spironolactone (Aldactone -) 25 mg PO DAILY [facility] Last Admin: 10/03/16 09:00 Dose: 25 mg Tamsulosin HCl (Flomax -) 0.4 mg PO DAILY@0830 [facility] Last Admin: 10/04/16 08:22 Dose: 0.4 mg Ticagrelor (Brilinta -) 90 mg PO BID [facility] Last Admin: 10/03/16 22:38 Dose: 90 mg Warfarin Sodium (Coumadin -) 5 mg PO DAILY@1800 [facility] Last Admin: 10/03/16 17:16 Dose: 5 mg - Objective Vital Signs: Vital Signs Temperature 97.8 F 10/04/16 08:40 Pulse Rate 64 10/04/16 08:40 Respiratory Rate 20 10/04/16 08:40 Blood Pressure 100/66 10/04/16 08:40 O2 Sat by Pulse Oximetry (%) 93 L 10/03/16 22:00 Cardiovascular: Yes: Regular Rate and Rhythm Respiratory: Yes: Regular, CTA Bilaterally Gastrointestinal: Yes: Normal Bowel Sounds, Soft, Distention Labs: CBC, BMP 10/04/16 05:35 10/04/16 05:35 INR, PTT INR 1.07 (0.82-1.09) 10/04/16 05:35 Problem List - Problems (1) Atrial fibrillation Assessment/Plan: CARDIO CONSULT NOTED ON COUMADIN MONITOR LABS Code(s): I48.91 - UNSPECIFIED ATRIAL FIBRILLATION Qualifiers: Atrial fibrillation type: unspecified Qualified Code(s): I48.91 - Unspecified atrial fibrillation (2) CAD in [place] artery Assessment/Plan: CONTINUE WITH ASA/BRILLINTA Code(s): I25.10 - ATHSCL HEART DISEASE OF [place] CORONARY ARTERY W/O ANG PCTRS (3) Abdominal distension (gaseous) Assessment/Plan: ADD SIMITHICONE ON PPI Code(s): R14.0 - ABDOMINAL DISTENSION (GASEOUS) (4) Diabetes Assessment/Plan: INSULIN BGM Code(s): E11.9 - TYPE 2 DIABETES MELLITUS WITHOUT COMPLICATIONS Qualifiers: Diabetes mellitus type: type 2 (5) Fracture, tibia and fibula, shaft Code(s): S82.209A - UNSP FRACTURE OF SHAFT OF UNSP TIBIA, INIT FOR CLOS FX S82.409A - UNSP FRACTURE OF SHAFT OF UNSP FIBULA, INIT FOR CLOS FX Qualifiers : Encounter type: initial encounter Fracture type: closed Laterality : left Qualified Code(s): S82.202A - Unspecified fracture of shaft of left tibia, initial encounter for closed fracture; S82.402A - Unspecified fracture of shaft of left fibula, initial encounter for closed fracture (6) Liver lesion Assessment/Plan: w/u ordered consider mri Code(s): K76.9 - LIVER DISEASE, UNSPECIFIED
[2016-10-04] MEDS: SPIRONOLACTONE 25 MG TABLET (FP) PO SCH (09:59)
[2016-10-04] MEDS: predniSONE 10 MG TABLET (UD) PO SCH (10:01)
[2016-10-04] MEDS: CARVEDILOL 3.125 MG TABLET (FP) PO SCH ×2 (10:01→23:30)
[2016-10-04] MEDS: ASPIRIN COATED 81 MG TABLET.EC PO SCH (10:01)
[2016-10-04] MEDS: FUROSEMIDE 40 MG TABLET (FP) PO SCH (10:02)
[2016-10-04] MEDS: POLYETHYLENE GLYCOL 3350 119 GM BTL PO SCH (10:02)
[2016-10-04] MEDS: LISINOPRIL 5 MG TABLET (FP) PO SCH (10:03)
[2016-10-04] MEDS: SIMETHICONE 80 MG TAB.CHEW (FP) PO SCH ×4 (10:03→23:29)
[2016-10-04] MEDS: GABAPENTIN 100 MG CAPSULE (FP) PO SCH ×2 (10:03→23:29)
[2016-10-04] MEDS: PANTOPRAZOLE 40 MG TABLET (FP) PO SCH (10:03)
[2016-10-04] MEDS: DULoxetine HCL 30 MG CAPSULE.DR (FP) PO SCH (10:04)
[2016-10-04] MEDS ORDERED: PT OWN MED DRAWER 7, Y5N ONE ×3 (10:09→23:27)
[2016-10-04] MEDS: RANOLAZINE E.R. 500 MG TABLET (FP) PO SCH ×2 (10:10→23:29)
[2016-10-04] MEDS: BISACODYL 5 MG TABLET.DR (FP) PO SCH (10:10)
[2016-10-04] MEDS: LORATADINE 10 MG TABLET PO SCH (10:11)
[2016-10-04] MEDS: TICAGRELOR 90 MG TABLET PO SCH ×2 (10:11→23:29)
--- NOTE | 2016-10-04 11:58 | PN ---
Progress Note, Physician History of Present Illness: Denies dyspnea or chest pain currently. - Current Medication List Current Medications: Active Medications Acetaminophen (Tylenol -) 650 mg PO Q6H PRN PRN Reason: FEVER OR PAIN Last Admin: 10/04/16 06:16 Dose: 650 mg Albuterol/Ipratropium (Duoneb -) 1 amp NEB Q4H PRN PRN Reason: sob Alprazolam (Xanax -) 0.25 mg PO BID PRN PRN Reason: ANXIETY Aspirin (Ecotrin -) 81 mg PO DAILY [facility] Last Admin: 10/04/16 10:01 Dose: 81 mg Atorvastatin Calcium (Lipitor -) 80 mg PO HS [facility] Last Admin: 10/03/16 22:38 Dose: 80 mg Bisacodyl (Dulcolax -) 5 mg PO DAILY [facility] Last Admin: 10/04/16 10:10 Dose: 5 mg Carvedilol (Coreg -) 3.125 mg PO BID [facility] Last Admin: 10/04/16 10:01 Dose: 3.125 mg Duloxetine HCl (Cymbalta -) 60 mg PO DAILY [facility] Last Admin: 10/04/16 10:04 Dose: 60 mg Furosemide (Lasix -) 40 mg PO DAILY [facility] Last Admin: 10/04/16 10:02 Dose: 40 mg Gabapentin (Neurontin -) 200 mg PO BID [facility] Last Admin: 10/04/16 10:03 Dose: 200 mg Insulin Aspart (Novolog Vial Sliding Scale -) 1 vial SQ ACHS [facility] PRN Reason: Protocol Last Admin: 10/04/16 11:47 Dose: Not Given Insulin Detemir (Levemir Vial) 25 units SQ BIDI [facility] Last Admin: 10/04/16 06:21 Dose: 25 units Lisinopril (Prinivil) 5 mg PO DAILY [facility] Last Admin: 10/04/16 10:03 Dose: 5 mg Loratadine (Claritin -) 10 mg PO DAILY [facility] Last Admin: 10/04/16 10:11 Dose: 10 mg Methylnaltrexone [place] (Relistor -) 12 mg SQ DAILY [facility] Last Admin: 10/03/16 11:54 Dose: 12 mg Montelukast Sodium (Singulair -) 10 mg PO HS [facility] Last Admin: 10/03/16 22:33 Dose: 10 mg Pancrelipase (Creon Dr 6,000 Units Capsule) 4 cap PO TIDCM [facility] Last Admin: 10/04/16 11:48 Dose: 4 cap Pantoprazole Sodium (Protonix -) 40 mg PO DAILY [facility] Last Admin: 10/04/16 10:03 Dose: 40 mg Polyethylene Glycol (Miralax (For Daily Use) -) 17 gm PO DAILY [facility] Last Admin: 10/04/16 10:02 Dose: 17 gm Prednisone (Deltasone -) 10 mg PO DAILY [facility] Last Admin: 10/04/16 10:01 Dose: 10 mg Ranolazine (Ranexa -) 500 mg PO BID [facility] Last Admin: 10/04/16 10:10 Dose: 500 mg Simethicone (Mylicon -) 80 mg PO QID [facility] Last Admin: 10/04/16 10:03 Dose: 80 mg Spironolactone (Aldactone -) 25 mg PO DAILY [facility] Last Admin: 10/04/16 09:59 Dose: 25 mg Tamsulosin HCl (Flomax -) 0.4 mg PO DAILY@0830 [facility] Last Admin: 10/04/16 08:22 Dose: 0.4 mg Ticagrelor (Brilinta -) 90 mg PO BID [facility] Last Admin: 10/04/16 10:11 Dose: 90 mg Warfarin Sodium (Coumadin -) 5 mg PO DAILY@1800 [facility] Last Admin: 10/03/16 17:16 Dose: 5 mg - Objective Vital Signs: Vital Signs Temperature 97.8 F 10/04/16 08:40 Pulse Rate 64 10/04/16 08:40 Respiratory Rate 20 10/04/16 08:40 Blood Pressure 100/66 10/04/16 08:40 O2 Sat by Pulse Oximetry (%) 93 L 10/03/16 22:00 Constitutional: Yes: Well Nourished, No Distress Eyes: Yes: Conjunctiva Clear, EOM Intact HENT: Yes: Atraumatic, Normocephalic Cardiovascular: Yes: Regular Rate and Rhythm. No: JVD Respiratory: Yes: CTA Bilaterally Edema: No Labs: CBC, BMP 10/04/16 05:35 10/04/16 05:35 INR, PTT INR 1.07 (0.82-1.09) 10/04/16 05:35 Assessment/Plan 81 yo male with remote smoking history, HTN, hyperlipidemia, DM, CAD -> reported stents x2 in 2010 (no prior [place]), acute/subacute anteroseptal [place] on 12/17 and underwent thrombectomy and PCI of proximal and mid LAD with Promus Premier stents and PTCA of D1 at [facility], and ischemic cardiomyopathy (LVEF 34 % per 02/16/16 nuclear stress test). Patient presented to ED with intermittent tremors of hands/arms. Patient was also incidently noted to be in new onset atrial fibrillation, but rate controlled. Currently rate controlled. [id number] score = 5 (6.7% annual risk of stroke) Risks and benefits of anticoagulation were discussed with patient. It was decided to start anticoagulation with coumadin (INR goal 2-3). Patient currently has Medicare, however, if patient can afford one of the NOACs (novel oral anticoagulants), then he can be changed to Xarelto or Eliquis. Patient will be at increased risk of bleeding given that he is also on aspirin and Brilinta for anteroseptal [place] on 12/18/15. However, Brilinta should ideally be continued until 11/2016 (1 year after [place]). Will continue Brilinta until that time unless patient should develop bleeding complications prior to that date. Trops 0.06 -> 0.04 (10/03) RECS: Continue current cardiac meds. Continue coumadin 5 mg po daily, goal INR 2-3. Monitor INR daily. Will follow. Call with questions.
[2016-10-04] MEDS: Methylnaltrexone Bromide 12 MG/0.6 ML KIT SQ SCH (12:40)
--- NOTE | 2016-10-04 16:51 | HOSP ---
Subjective - Review of Symptoms Subjective: requested by Dr Rowan to evaluate the patient as he was complaining to RN that he was having blurry vision Pt states he had sudden onset of blurry vision last night. he states he can see but things in a distance are not as clear as they typically are. Also feels like his L eye is droopy. denies CP, floaters, curtain like blindness, pruritis , discharge, photophobia HEENT R eye droop. PERRL, EOMI, no conjunctivitis or discharge appreciated, visual acuity intact Neuro CN II-XII grossly intact -no sign of conjunctivitis or uveitis. visual acuity intact. would recommend further workup and evaluation by optical engineering technician, inpatient or outpatient per PMD decision Physical Examination Vital Signs: Vital Signs Temperature 98 F 10/04/16 15:39 Pulse Rate 62 10/04/16 15:39 Respiratory Rate 18 10/04/16 15:39 Blood Pressure 124/62 10/04/16 15:39 O2 Sat by Pulse Oximetry (%) 95 10/04/16 09:00 Labs: CBC, BMP 10/04/16 05:35 10/04/16 05:35
[2016-10-04] MEDS ORDERED: INSULIN (NOVOLOG) ASPART 100 UNITS/ML 10ML VIAL ONE (16:54)
[2016-10-04] MEDS: WARFARIN NA 5 MG TABLET (UD) PO SCH (17:55)
[2016-10-04] MEDS: ATORVASTATIN CA 80 MG TABLET (FP) PO SCH (23:29)
[2016-10-04] MEDS: MONTELUKAST NA 10 MG TABLET PO SCH (23:30)
[2016-10-05] MEDS: INSULIN SLIDING SCALE (NOVOLOG) 1 VIAL SQ SCH ×4 (06:48→22:08)
[2016-10-05] MEDS: INSULIN DETEMIR 100 UNITS/ML MDV SQ SCH ×2 (06:54→17:34)
--- NOTE | 2016-10-05 07:40 | PN ---
Progress Note, Physician History of Present Illness: feels better - Current Medication List Current Medications: Active Medications Acetaminophen (Tylenol -) 650 mg PO Q6H PRN PRN Reason: FEVER OR PAIN Last Admin: 10/04/16 06:16 Dose: 650 mg Albuterol/Ipratropium (Duoneb -) 1 amp NEB Q4H PRN PRN Reason: sob Alprazolam (Xanax -) 0.25 mg PO BID PRN PRN Reason: ANXIETY Aspirin (Ecotrin -) 81 mg PO DAILY [facility] Last Admin: 10/04/16 10:01 Dose: 81 mg Atorvastatin Calcium (Lipitor -) 80 mg PO HS [facility] Last Admin: 10/04/16 23:29 Dose: 80 mg Bisacodyl (Dulcolax -) 5 mg PO DAILY [facility] Last Admin: 10/04/16 10:10 Dose: 5 mg Carvedilol (Coreg -) 3.125 mg PO BID [facility] Last Admin: 10/04/16 23:30 Dose: 3.125 mg Duloxetine HCl (Cymbalta -) 60 mg PO DAILY [facility] Last Admin: 10/04/16 10:04 Dose: 60 mg Furosemide (Lasix -) 40 mg PO DAILY [facility] Last Admin: 10/04/16 10:02 Dose: 40 mg Gabapentin (Neurontin -) 200 mg PO BID [facility] Last Admin: 10/04/16 23:29 Dose: 200 mg Insulin Aspart (Novolog Vial Sliding Scale -) 1 vial SQ ACHS [facility] PRN Reason: Protocol Last Admin: 10/05/16 06:48 Dose: Not Given Insulin Detemir (Levemir Vial) 25 units SQ BIDI [facility] Last Admin: 10/05/16 06:54 Dose: 25 units Lisinopril (Prinivil) 5 mg PO DAILY [facility] Last Admin: 10/04/16 10:03 Dose: 5 mg Loratadine (Claritin -) 10 mg PO DAILY [facility] Last Admin: 10/04/16 10:11 Dose: 10 mg Methylnaltrexone [place] (Relistor -) 12 mg SQ DAILY [facility] Last Admin: 10/04/16 12:40 Dose: 12 mg Montelukast Sodium (Singulair -) 10 mg PO HS [facility] Last Admin: 10/04/16 23:30 Dose: 10 mg Pancrelipase (Creon Dr 6,000 Units Capsule) 4 cap PO TIDCM [facility] Last Admin: 10/04/16 17:00 Dose: 4 cap Pantoprazole Sodium (Protonix -) 40 mg PO DAILY [facility] Last Admin: 10/04/16 10:03 Dose: 40 mg Polyethylene Glycol (Miralax (For Daily Use) -) 17 gm PO DAILY [facility] Last Admin: 10/04/16 10:02 Dose: 17 gm Prednisone (Deltasone -) 10 mg PO DAILY [facility] Last Admin: 10/04/16 10:01 Dose: 10 mg Ranolazine (Ranexa -) 500 mg PO BID [facility] Last Admin: 10/04/16 23:29 Dose: 500 mg Simethicone (Mylicon -) 80 mg PO QID [facility] Last Admin: 10/04/16 23:29 Dose: 80 mg Spironolactone (Aldactone -) 25 mg PO DAILY [facility] Last Admin: 10/04/16 09:59 Dose: 25 mg Tamsulosin HCl (Flomax -) 0.4 mg PO DAILY@0830 [facility] Last Admin: 10/04/16 08:22 Dose: 0.4 mg Ticagrelor (Brilinta -) 90 mg PO BID [facility] Last Admin: 10/04/16 23:29 Dose: 90 mg Warfarin Sodium (Coumadin -) 5 mg PO DAILY@1800 [facility] Last Admin: 10/04/16 17:55 Dose: 5 mg - Objective Vital Signs: Vital Signs Temperature 97.6 F 10/05/16 06:00 Pulse Rate 55 L 10/05/16 06:00 Respiratory Rate 20 10/05/16 06:00 Blood Pressure 117/67 10/05/16 06:00 O2 Sat by Pulse Oximetry (%) 96 10/04/16 22:00 Cardiovascular: Yes: Regular Rate and Rhythm Respiratory: Yes: Regular, CTA Bilaterally Gastrointestinal: Yes: Normal Bowel Sounds, Soft, Distention Edema: No Labs: CBC, BMP 10/04/16 05:35 10/04/16 05:35 INR, PTT INR 1.07 (0.82-1.09) 10/04/16 05:35 Problem List - Problems (1) Atrial fibrillation Assessment/Plan: CARDIO CONSULT NOTED ON COUMADIN MONITOR LABS Code(s): I48.91 - UNSPECIFIED ATRIAL FIBRILLATION Qualifiers: Atrial fibrillation type: unspecified Qualified Code(s): I48.91 - Unspecified atrial fibrillation (2) CAD in [place] artery Assessment/Plan: CONTINUE WITH ASA/BRILLINTA Code(s): I25.10 - ATHSCL HEART DISEASE OF [place] CORONARY ARTERY W/O ANG PCTRS (3) Abdominal distension (gaseous) Assessment/Plan: ADD SIMITHICONE ON PPI Code(s): R14.0 - ABDOMINAL DISTENSION (GASEOUS) (4) Diabetes Assessment/Plan: INSULIN BGM Code(s): E11.9 - TYPE 2 DIABETES MELLITUS WITHOUT COMPLICATIONS Qualifiers: Diabetes mellitus type: type 2 (5) Fracture, tibia and fibula, shaft Code(s): S82.209A - UNSP FRACTURE OF SHAFT OF UNSP TIBIA, INIT FOR CLOS FX S82.409A - UNSP FRACTURE OF SHAFT OF UNSP FIBULA, INIT FOR CLOS FX Qualifiers : Encounter type: initial encounter Fracture type: closed Laterality : left Qualified Code(s): S82.202A - Unspecified fracture of shaft of left tibia, initial encounter for closed fracture; S82.402A - Unspecified fracture of shaft of left fibula, initial encounter for closed fracture (6) Liver lesion Assessment/Plan: w/u ordered await mri results Code(s): K76.9 - LIVER DISEASE, UNSPECIFIED
[2016-10-05 07:57] LABS: INR 1.4 (0.82-1.09); PROTHROMBIN TIME (PATIENT) 15.5 SEC (9.98-11.88)
[2016-10-05] MEDS: GABAPENTIN 100 MG CAPSULE (FP) PO SCH ×2 (10:07→21:59)
[2016-10-05] MEDS: BISACODYL 5 MG TABLET.DR (FP) PO SCH (10:08)
[2016-10-05] MEDS: SPIRONOLACTONE 25 MG TABLET (FP) PO SCH (10:08)
[2016-10-05] MEDS: TAMSULOSIN HCL 0.4 MG CAP.ER.24H (FP) PO SCH (10:08)
[2016-10-05] MEDS: SIMETHICONE 80 MG TAB.CHEW (FP) PO SCH ×4 (10:08→21:59)
[2016-10-05] MEDS: ASPIRIN COATED 81 MG TABLET.EC PO SCH (10:08)
[2016-10-05] MEDS: LISINOPRIL 5 MG TABLET (FP) PO SCH (10:08)
[2016-10-05] MEDS: RANOLAZINE E.R. 500 MG TABLET (FP) PO SCH ×2 (10:09→22:00)
[2016-10-05] MEDS: predniSONE 10 MG TABLET (UD) PO SCH (10:09)
[2016-10-05] MEDS: FUROSEMIDE 40 MG TABLET (FP) PO SCH (10:09)
[2016-10-05] MEDS: LORATADINE 10 MG TABLET PO SCH (10:09)
[2016-10-05] MEDS: DULoxetine HCL 30 MG CAPSULE.DR (FP) PO SCH (10:09)
[2016-10-05] MEDS: CARVEDILOL 3.125 MG TABLET (FP) PO SCH ×2 (10:09→21:59)
[2016-10-05] MEDS: PANTOPRAZOLE 40 MG TABLET (FP) PO SCH (10:09)
[2016-10-05] MEDS: LIPASE/PROTEASE/AMYLASE 6,000 UNIT CAPSULE PO SCH ×3 (10:10→17:33)
[2016-10-05] MEDS ORDERED: PT OWN MED DRAWER 7, Y5N ONE ×3 (11:46→21:03)
[2016-10-05] MEDS: POLYETHYLENE GLYCOL 3350 119 GM BTL PO SCH (12:24)
[2016-10-05] MEDS: TICAGRELOR 90 MG TABLET PO SCH ×2 (12:24→21:59)
[2016-10-05] MEDS: Methylnaltrexone Bromide 12 MG/0.6 ML KIT SQ SCH (14:36)
--- NOTE | 2016-10-05 15:30 | PN ---
Progress Note, Physician History of Present Illness: No new complaints - Current Medication List Current Medications: Active Medications Acetaminophen (Tylenol -) 650 mg PO Q6H PRN PRN Reason: FEVER OR PAIN Last Admin: 10/04/16 06:16 Dose: 650 mg Albuterol/Ipratropium (Duoneb -) 1 amp NEB Q4H PRN PRN Reason: sob Alprazolam (Xanax -) 0.25 mg PO BID PRN PRN Reason: ANXIETY Aspirin (Ecotrin -) 81 mg PO DAILY [facility] Last Admin: 10/05/16 10:08 Dose: 81 mg Atorvastatin Calcium (Lipitor -) 80 mg PO HS [facility] Last Admin: 10/04/16 23:29 Dose: 80 mg Bisacodyl (Dulcolax -) 5 mg PO DAILY [facility] Last Admin: 10/05/16 10:08 Dose: 5 mg Carvedilol (Coreg -) 3.125 mg PO BID [facility] Last Admin: 10/05/16 10:09 Dose: 3.125 mg Duloxetine HCl (Cymbalta -) 60 mg PO DAILY [facility] Last Admin: 10/05/16 10:09 Dose: 60 mg Furosemide (Lasix -) 40 mg PO DAILY [facility] Last Admin: 10/05/16 10:09 Dose: 40 mg Gabapentin (Neurontin -) 200 mg PO BID [facility] Last Admin: 10/05/16 10:07 Dose: 200 mg Insulin Aspart (Novolog Vial Sliding Scale -) 1 vial SQ ACHS [facility] PRN Reason: Protocol Last Admin: 10/05/16 12:25 Dose: Not Given Insulin Detemir (Levemir Vial) 25 units SQ BIDI [facility] Last Admin: 10/05/16 06:54 Dose: 25 units Lisinopril (Prinivil) 5 mg PO DAILY [facility] Last Admin: 10/05/16 10:08 Dose: 5 mg Loratadine (Claritin -) 10 mg PO DAILY [facility] Last Admin: 10/05/16 10:09 Dose: 10 mg Methylnaltrexone [place] (Relistor -) 12 mg SQ DAILY [facility] Last Admin: 10/05/16 14:36 Dose: 12 mg Montelukast Sodium (Singulair -) 10 mg PO HS [facility] Last Admin: 10/04/16 23:30 Dose: 10 mg Pancrelipase (Creon Dr 6,000 Units Capsule) 4 cap PO TIDCM [facility] Last Admin: 10/05/16 12:25 Dose: 4 cap Pantoprazole Sodium (Protonix -) 40 mg PO DAILY [facility] Last Admin: 10/05/16 10:09 Dose: 40 mg Polyethylene Glycol (Miralax (For Daily Use) -) 17 gm PO DAILY [facility] Last Admin: 10/05/16 12:24 Dose: 17 gm Prednisone (Deltasone -) 10 mg PO DAILY [facility] Last Admin: 10/05/16 10:09 Dose: 10 mg Ranolazine (Ranexa -) 500 mg PO BID [facility] Last Admin: 10/05/16 10:09 Dose: 500 mg Simethicone (Mylicon -) 80 mg PO QID [facility] Last Admin: 10/05/16 14:36 Dose: 80 mg Spironolactone (Aldactone -) 25 mg PO DAILY [facility] Last Admin: 10/05/16 10:08 Dose: 25 mg Tamsulosin HCl (Flomax -) 0.4 mg PO DAILY@0830 [facility] Last Admin: 10/05/16 10:08 Dose: 0.4 mg Ticagrelor (Brilinta -) 90 mg PO BID [facility] Last Admin: 10/05/16 12:24 Dose: 90 mg Warfarin Sodium (Coumadin -) 5 mg PO DAILY@1800 [facility] Last Admin: 10/04/16 17:55 Dose: 5 mg - Objective Vital Signs: Vital Signs Temperature 97.8 F 10/05/16 10:00 Pulse Rate 62 10/05/16 10:00 Respiratory Rate 18 10/05/16 10:00 Blood Pressure 90/53 10/05/16 10:00 O2 Sat by Pulse Oximetry (%) 96 10/04/16 22:00 Constitutional: Yes: No Distress, Obese Eyes: Yes: Conjunctiva Clear HENT: Yes: Atraumatic Neck: Yes: Supple Cardiovascular: Yes: Other (regular and brett) Respiratory: Yes: CTA Bilaterally Gastrointestinal: Yes: Normal Bowel Sounds, Abdomen, Obese Extremities: Yes: Other (warm) Edema: No Peripheral Pulses WNL: Yes Neurological: Yes: Alert, Oriented Psychiatric: Yes: Alert, Oriented Labs: CBC, BMP 10/04/16 05:35 10/04/16 05:35 INR, PTT INR 1.40 (0.82-1.09) H D 10/05/16 05:35 - ....Imaging Other: Other (tele -> SB) Assessment/Plan 81 yo male with remote smoking history, HTN, hyperlipidemia, DM, CAD -> reported stents x2 in 2010 (no prior [place]), acute/subacute anteroseptal [place] on 12/17 and underwent thrombectomy and PCI of proximal and mid LAD with Promus Premier stents and PTCA of D1 at [facility], and ischemic cardiomyopathy (LVEF 34 % per 02/16/16 nuclear stress test). Patient presented to ED with intermittent tremors of hands/arms. Patient was also incidently noted to be in new onset atrial fibrillation, but rate controlled. Currently rate controlled. [id number] score = 5 (6.7% annual risk of stroke) Risks and benefits of anticoagulation were discussed with patient. It was decided to start anticoagulation with coumadin (INR goal 2-3). Patient currently has Medicare, however, if patient can afford one of the NOACs (novel oral anticoagulants), then he can be changed to Xarelto or Eliquis. Patient will be at increased risk of bleeding given that he is also on aspirin and Brilinta for anteroseptal [place] on 12/18/15. However, Brilinta should ideally be continued until 11/2016 (1 year after [place]). Will continue Brilinta until that time unless patient should develop bleeding complications prior to that date. Trops 0.06 -> 0.04 (10/03) No new complaints INR 1.4 today RECS: Continue current cardiac meds. Continue coumadin 5 mg po daily, goal INR 2-3. Monitor INR daily. Per IM Thanks! We'll see prn!
[2016-10-05] MEDS: WARFARIN NA 5 MG TABLET (UD) PO SCH (17:34)
[2016-10-05] MEDS: ATORVASTATIN CA 80 MG TABLET (FP) PO SCH (21:59)
[2016-10-05] MEDS: MONTELUKAST NA 10 MG TABLET PO SCH (22:00)
[2016-10-06] MEDS: INSULIN DETEMIR 100 UNITS/ML MDV SQ SCH ×2 (06:00→16:59)
[2016-10-06] MEDS: INSULIN SLIDING SCALE (NOVOLOG) 1 VIAL SQ SCH ×3 (06:06→16:59)
[2016-10-06 07:32] LABS: INR 1.76 (0.82-1.09); PROTHROMBIN TIME (PATIENT) 19.6 SEC (9.98-11.88)
[2016-10-06] MEDS ORDERED: PT OWN MED DRAWER 7, Y5N ONE (07:57)
[2016-10-06] MEDS ORDERED: BISACODYL 10 MG SUPP.RECT RC ONE (09:09)
[2016-10-06] MEDS ORDERED: TAMSULOSIN HCL 0.4 MG CAP.ER.24H (FP) PO ONE (09:09)
--- NOTE | 2016-10-06 09:10 | PN ---
Progress Note, Physician History of Present Illness: C/O LEG PAIN C/O CONSTIPATION C/O DIFFICULTY URINATING - Current Medication List Current Medications: Active Medications Acetaminophen (Tylenol -) 650 mg PO Q6H PRN PRN Reason: FEVER OR PAIN Last Admin: 10/04/16 06:16 Dose: 650 mg Albuterol/Ipratropium (Duoneb -) 1 amp NEB Q4H PRN PRN Reason: sob Aspirin (Ecotrin -) 81 mg PO DAILY [facility] Last Admin: 10/05/16 10:08 Dose: 81 mg Atorvastatin Calcium (Lipitor -) 80 mg PO HS [facility] Last Admin: 10/05/16 21:59 Dose: 80 mg Bisacodyl (Dulcolax -) 5 mg PO DAILY [facility] Last Admin: 10/05/16 10:08 Dose: 5 mg Bisacodyl (Dulcolax Suppository -) 10 mg NC ONCE ONE Stop: 10/06/16 09:10 Carvedilol (Coreg -) 3.125 mg PO BID [facility] Last Admin: 10/05/16 21:59 Dose: 3.125 mg Duloxetine HCl (Cymbalta -) 60 mg PO DAILY [facility] Last Admin: 10/05/16 10:09 Dose: 60 mg Furosemide (Lasix -) 40 mg PO DAILY [facility] Last Admin: 10/05/16 10:09 Dose: 40 mg Gabapentin (Neurontin -) 200 mg PO BID [facility] Last Admin: 10/05/16 21:59 Dose: 200 mg Insulin Aspart (Novolog Vial Sliding Scale -) 1 vial SQ [facility] PRN Reason: Protocol Last Admin: 10/06/16 06:06 Dose: Not Given Insulin Detemir (Levemir Vial) 25 units SQ BIDI [facility] Last Admin: 10/06/16 06:00 Dose: 25 units Lisinopril (Prinivil) 5 mg PO DAILY [facility] Last Admin: 10/05/16 10:08 Dose: 5 mg Loratadine (Claritin -) 10 mg PO DAILY [facility] Last Admin: 10/05/16 10:09 Dose: 10 mg Methylnaltrexone [place] (Relistor -) 12 mg SQ DAILY [facility] Last Admin: 10/05/16 14:36 Dose: 12 mg Montelukast Sodium (Singulair -) 10 mg PO HS [facility] Last Admin: 10/05/16 22:00 Dose: 10 mg Pancrelipase (Creon Dr 6,000 Units Capsule) 4 cap PO TIDCM [facility] Last Admin: 10/05/16 17:33 Dose: 4 cap Pantoprazole Sodium (Protonix -) 40 mg PO DAILY [facility] Last Admin: 10/05/16 10:09 Dose: 40 mg Polyethylene Glycol (Miralax (For Daily Use) -) 17 gm PO BID [facility] Prednisone (Deltasone -) 10 mg PO DAILY [facility] Last Admin: 10/05/16 10:09 Dose: 10 mg Ranolazine (Ranexa -) 500 mg PO BID [facility] Last Admin: 10/05/16 22:00 Dose: 500 mg Simethicone (Mylicon -) 80 mg PO QID [facility] Last Admin: 10/05/16 21:59 Dose: 80 mg Spironolactone (Aldactone -) 25 mg PO DAILY [facility] Last Admin: 10/05/16 10:08 Dose: 25 mg Tamsulosin HCl (Flomax -) 0.4 mg PO DAILY@0830 [facility] Last Admin: 10/05/16 10:08 Dose: 0.4 mg Ticagrelor (Brilinta -) 90 mg PO BID [facility] Last Admin: 10/05/16 21:59 Dose: 90 mg Warfarin Sodium (Coumadin -) 5 mg PO DAILY@1800 [facility] Last Admin: 10/05/16 17:34 Dose: 5 mg - Objective Vital Signs: Vital Signs Temperature 97.6 F 10/05/16 22:00 Pulse Rate 66 10/05/16 22:00 Respiratory Rate 20 10/05/16 22:00 Blood Pressure 110/71 10/05/16 22:00 O2 Sat by Pulse Oximetry (%) 95 10/05/16 21:00 Neck: Yes: Supple Cardiovascular: Yes: Regular Rate and Rhythm Respiratory: Yes: Regular, CTA Bilaterally Gastrointestinal: Yes: Normal Bowel Sounds, Soft, Distention Labs: CBC, BMP 10/04/16 05:35 10/04/16 05:35 INR, PTT INR 1.76 (0.82-1.09) H 10/06/16 05:35 Problem List - Problems (1) Atrial fibrillation Assessment/Plan: CARDIO CONSULT NOTED ON COUMADIN MONITOR LABS Code(s): I48.91 - UNSPECIFIED ATRIAL FIBRILLATION Qualifiers: Atrial fibrillation type: unspecified Qualified Code(s): I48.91 - Unspecified atrial fibrillation (2) CAD in [place] artery Assessment/Plan: CONTINUE WITH ASA/BRILLINTA Code(s): I25.10 - ATHSCL HEART DISEASE OF [place] CORONARY ARTERY W/O ANG PCTRS (3) Abdominal distension (gaseous) Assessment/Plan: CONSTIPATION MEDS ADJUSTED ADD SIMITHICONE ON PPI Code(s): R14.0 - ABDOMINAL DISTENSION (GASEOUS) (4) Diabetes Assessment/Plan: INSULIN BGM Code(s): E11.9 - TYPE 2 DIABETES MELLITUS WITHOUT COMPLICATIONS Qualifiers: Diabetes mellitus type: type 2 (5) Fracture, tibia and fibula, shaft Assessment/Plan: XRAY ORTHO Code(s): S82.209A - UNSP FRACTURE OF SHAFT OF UNSP TIBIA, INIT FOR CLOS FX S82.409A - UNSP FRACTURE OF SHAFT OF UNSP FIBULA, INIT FOR CLOS FX Qualifiers : Encounter type: initial encounter Fracture type: closed Laterality : left Qualified Code(s): S82.202A - Unspecified fracture of shaft of left tibia, initial encounter for closed fracture; S82.402A - Unspecified fracture of shaft of left fibula, initial encounter for closed fracture (6) Liver lesion Assessment/Plan: MRI NOTED CONSIDER PET SCAN Code(s): K76.9 - LIVER DISEASE, UNSPECIFIED
[2016-10-06] MEDS: DULoxetine HCL 30 MG CAPSULE.DR (FP) PO SCH (09:37)
[2016-10-06] MEDS: TAMSULOSIN HCL 0.4 MG CAP.ER.24H (FP) PO SCH (09:37)
[2016-10-06] MEDS: FUROSEMIDE 40 MG TABLET (FP) PO SCH (09:37)
[2016-10-06] MEDS: LORATADINE 10 MG TABLET PO SCH (09:37)
[2016-10-06] MEDS: LIPASE/PROTEASE/AMYLASE 6,000 UNIT CAPSULE PO SCH ×3 (09:37→16:59)
[2016-10-06] MEDS: RANOLAZINE E.R. 500 MG TABLET (FP) PO SCH ×2 (09:37→22:57)
[2016-10-06] MEDS: SPIRONOLACTONE 25 MG TABLET (FP) PO SCH (09:37)
[2016-10-06] MEDS: LISINOPRIL 5 MG TABLET (FP) PO SCH (09:37)
[2016-10-06] MEDS: POLYETHYLENE GLYCOL 3350 119 GM BTL PO SCH ×2 (09:38→22:56)
[2016-10-06] MEDS: predniSONE 10 MG TABLET (UD) PO SCH (09:38)
[2016-10-06] MEDS: BISACODYL 5 MG TABLET.DR (FP) PO SCH (09:38)
[2016-10-06] MEDS: ASPIRIN COATED 81 MG TABLET.EC PO SCH (09:38)
[2016-10-06] MEDS: SIMETHICONE 80 MG TAB.CHEW (FP) PO SCH ×4 (09:38→22:56)
[2016-10-06] MEDS: CARVEDILOL 3.125 MG TABLET (FP) PO SCH ×3 (09:38→23:00)
[2016-10-06] MEDS: PANTOPRAZOLE 40 MG TABLET (FP) PO SCH (09:38)
[2016-10-06] MEDS: GABAPENTIN 100 MG CAPSULE (FP) PO SCH ×2 (09:38→22:56)
[2016-10-06] MEDS: TICAGRELOR 90 MG TABLET PO SCH (09:51)
[2016-10-06] MEDS: Methylnaltrexone Bromide 12 MG/0.6 ML KIT SQ SCH (11:29)
--- NOTE | 2016-10-06 14:48 | CONSULT ---
Consult - text type - Consultation Consultation Note: FULL CONSULT DICTATED IMP: DELAYED UNION LEFT TIBIA/FIBULA SHAFT FX PLAN: WHEN MEDICALLY OPTIMIZED I WOULD BONE GRAFT HIM IN THE OR. CAN BE ELECTIVELY SCHEDULED OUTPATIENT PROCEDURE
[2016-10-06] MEDS: WARFARIN NA 5 MG TABLET (UD) PO SCH (16:59)
[2016-10-06] MEDS: ATORVASTATIN CA 80 MG TABLET (FP) PO SCH (22:56)
[2016-10-06] MEDS: MONTELUKAST NA 10 MG TABLET PO SCH (22:57)
[2016-10-06] MEDS: ACETAMINOPHEN 325 MG TABLET (FP) PO PRN (23:00)
[2016-10-07] MEDS: INSULIN SLIDING SCALE (NOVOLOG) 1 VIAL SQ SCH ×5 (00:31→22:11)
[2016-10-07] MEDS: TICAGRELOR 90 MG TABLET PO SCH ×3 (00:32→22:10)
[2016-10-07] MEDS: INSULIN DETEMIR 100 UNITS/ML MDV SQ SCH ×2 (07:28→17:33)
--- NOTE | 2016-10-07 09:17 | PN ---
Progress Note (short form) - Note Progress Note: Pt seen, comfortable, we discussed his orthopedic plan again. 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 Surgical clearance as per Dr Rowan. Can be done as an out pt.
[2016-10-07] MEDS: POLYETHYLENE GLYCOL 3350 119 GM BTL PO SCH ×2 (09:38→22:10)
[2016-10-07] MEDS: DULoxetine HCL 30 MG CAPSULE.DR (FP) PO SCH (09:47)
[2016-10-07] MEDS: LIPASE/PROTEASE/AMYLASE 6,000 UNIT CAPSULE PO SCH ×3 (09:47→17:33)
[2016-10-07] MEDS: TAMSULOSIN HCL 0.4 MG CAP.ER.24H (FP) PO SCH (09:47)
[2016-10-07] MEDS: FUROSEMIDE 40 MG TABLET (FP) PO SCH (09:47)
[2016-10-07] MEDS: SIMETHICONE 80 MG TAB.CHEW (FP) PO SCH ×4 (09:47→22:11)
[2016-10-07] MEDS: BISACODYL 5 MG TABLET.DR (FP) PO SCH (09:48)
[2016-10-07] MEDS: LORATADINE 10 MG TABLET PO SCH (09:48)
[2016-10-07] MEDS: ASPIRIN COATED 81 MG TABLET.EC PO SCH (09:48)
[2016-10-07] MEDS: PANTOPRAZOLE 40 MG TABLET (FP) PO SCH (09:48)
[2016-10-07] MEDS: LISINOPRIL 5 MG TABLET (FP) PO SCH (09:48)
[2016-10-07] MEDS: SPIRONOLACTONE 25 MG TABLET (FP) PO SCH (09:48)
[2016-10-07] MEDS: predniSONE 10 MG TABLET (UD) PO SCH (09:48)
[2016-10-07] MEDS: CARVEDILOL 3.125 MG TABLET (FP) PO SCH ×2 (09:48→22:10)
[2016-10-07] MEDS: RANOLAZINE E.R. 500 MG TABLET (FP) PO SCH ×2 (09:48→22:11)
[2016-10-07] MEDS: GABAPENTIN 100 MG CAPSULE (FP) PO SCH ×2 (09:48→22:11)
[2016-10-07] MEDS ORDERED: PT OWN MED DRAWER 7, Y5N ONE ×2 (09:49→21:30)
[2016-10-07 11:32] LABS: BASOPHIL 0.7 % (0-2.0); EOSINOPHIL 3.7 % (0-4.5); MCH 29.3 pg (25.7-33.7); MCHC 33.1 g/dl (32.0-35.9); MEAN CELL VOLUME 88.6 fl (80-96); NEUTROPHILS 76.2 % (42.8-82.8); PLATELET COUNT 212 K/MM3 (134-434); RDW 18.6 % (11.9-15.9); WHITE BLOOD COUNT 11.2 K/mm3 (4.0-10.0)
[2016-10-07 11:43] LABS: INR 2.2 (0.82-1.09); PROTHROMBIN TIME (PATIENT) 24.6 SEC (9.98-11.88)
--- NOTE | 2016-10-07 12:21 | PN ---
Progress Note, Physician History of Present Illness: C/O LEG PAIN C/O CONSTIPATION C/O DIFFICULTY URINATING - Current Medication List Current Medications: Active Medications Acetaminophen (Tylenol -) 650 mg PO Q6H PRN PRN Reason: FEVER OR PAIN Last Admin: 10/06/16 23:00 Dose: 650 mg Albuterol/Ipratropium (Duoneb -) 1 amp NEB Q4H PRN PRN Reason: sob Aspirin (Ecotrin -) 81 mg PO DAILY [facility] Last Admin: 10/07/16 09:48 Dose: 81 mg Atorvastatin Calcium (Lipitor -) 80 mg PO HS [facility] Last Admin: 10/06/16 22:56 Dose: 80 mg Bisacodyl (Dulcolax -) 5 mg PO DAILY [facility] Last Admin: 10/07/16 09:48 Dose: 5 mg Carvedilol (Coreg -) 3.125 mg PO BID [facility] Last Admin: 10/07/16 09:48 Dose: 3.125 mg Duloxetine HCl (Cymbalta -) 60 mg PO DAILY [facility] Last Admin: 10/07/16 09:47 Dose: 60 mg Furosemide (Lasix -) 40 mg PO DAILY [facility] Last Admin: 10/07/16 09:47 Dose: 40 mg Gabapentin (Neurontin -) 200 mg PO BID [facility] Last Admin: 10/07/16 09:48 Dose: 200 mg Insulin Aspart (Novolog Vial Sliding Scale -) 1 vial SQ ACHS [facility] PRN Reason: Protocol Last Admin: 10/07/16 11:46 Dose: 2 units Insulin Detemir (Levemir Vial) 25 units SQ BIDI [facility] Last Admin: 10/07/16 07:28 Dose: 25 units Lisinopril (Prinivil) 5 mg PO DAILY [facility] Last Admin: 10/07/16 09:48 Dose: 5 mg Loratadine (Claritin -) 10 mg PO DAILY [facility] Last Admin: 10/07/16 09:48 Dose: 10 mg Methylnaltrexone [place] (Relistor -) 12 mg SQ DAILY [facility] Last Admin: 10/06/16 11:29 Dose: 12 mg Montelukast Sodium (Singulair -) 10 mg PO HS [facility] Last Admin: 10/06/16 22:57 Dose: 10 mg Pancrelipase (Creon Dr 6,000 Units Capsule) 4 cap PO TIDCM [facility] Last Admin: 10/07/16 11:47 Dose: 4 cap Pantoprazole Sodium (Protonix -) 40 mg PO DAILY [facility] Last Admin: 10/07/16 09:48 Dose: 40 mg Polyethylene Glycol (Miralax (For Daily Use) -) 17 gm PO BID [facility] Last Admin: 10/07/16 09:38 Dose: 17 gm Prednisone (Deltasone -) 10 mg PO DAILY [facility] Last Admin: 10/07/16 09:48 Dose: 10 mg Ranolazine (Ranexa -) 500 mg PO BID [facility] Last Admin: 10/07/16 09:48 Dose: 500 mg Simethicone (Mylicon -) 80 mg PO QID [facility] Last Admin: 10/07/16 09:47 Dose: 80 mg Spironolactone (Aldactone -) 25 mg PO DAILY [facility] Last Admin: 10/07/16 09:48 Dose: 25 mg Tamsulosin HCl (Flomax -) 0.4 mg PO DAILY@0830 [facility] Last Admin: 10/07/16 09:47 Dose: 0.4 mg Ticagrelor (Brilinta -) 90 mg PO BID [facility] Last Admin: 10/07/16 09:50 Dose: 90 mg Warfarin Sodium (Coumadin -) 5 mg PO DAILY@1800 [facility] Last Admin: 10/06/16 16:59 Dose: 5 mg - Objective Vital Signs: Vital Signs Temperature 97.8 F 10/07/16 02:10 Pulse Rate 55 L 10/07/16 02:10 Respiratory Rate 58 H 10/07/16 02:10 Blood Pressure 108/40 10/07/16 02:10 O2 Sat by Pulse Oximetry (%) 97 10/06/16 21:00 Cardiovascular: Yes: Regular Rate and Rhythm Respiratory: Yes: Regular, CTA Bilaterally Gastrointestinal: Yes: Normal Bowel Sounds, Soft Labs: CBC, BMP 10/07/16 11:00 10/07/16 11:00 INR, PTT INR 2.20 (0.82-1.09) H 10/07/16 11:00 Problem List - Problems (1) Atrial fibrillation Assessment/Plan: CARDIO CONSULT NOTED ON COUMADIN MONITOR LABS--INR 2.2 Code(s): I48.91 - UNSPECIFIED ATRIAL FIBRILLATION Qualifiers: Atrial fibrillation type: unspecified Qualified Code(s): I48.91 - Unspecified atrial fibrillation (2) CAD in [place] artery Assessment/Plan: CONTINUE WITH ASA/BRILLINTA Code(s): I25.10 - ATHSCL HEART DISEASE OF [place] CORONARY ARTERY W/O ANG PCTRS (3) Abdominal distension (gaseous) Assessment/Plan: CONSTIPATION MEDS ADJUSTED ADD SIMITHICONE ON PPI FUA Code(s): R14.0 - ABDOMINAL DISTENSION (GASEOUS) (4) Diabetes Code(s): E11.9 - TYPE 2 DIABETES MELLITUS WITHOUT COMPLICATIONS Qualifiers: Diabetes mellitus type: type 2 (5) Fracture, tibia and fibula, shaft Assessment/Plan: XRAY ORTHO Code(s): S82.209A - UNSP FRACTURE OF SHAFT OF UNSP TIBIA, INIT FOR CLOS FX S82.409A - UNSP FRACTURE OF SHAFT OF UNSP FIBULA, INIT FOR CLOS FX Qualifiers : Encounter type: initial encounter Fracture type: closed Laterality : left Qualified Code(s): S82.202A - Unspecified fracture of shaft of left tibia, initial encounter for closed fracture; S82.402A - Unspecified fracture of shaft of left fibula, initial encounter for closed fracture (6) Liver lesion Assessment/Plan: MRI NOTED CONSIDER PET SCAN OUTPATIENT VS F/U MRI Code(s): K76.9 - LIVER DISEASE, UNSPECIFIED
[2016-10-07] MEDS: Methylnaltrexone Bromide 12 MG/0.6 ML KIT SQ SCH (12:37)
[2016-10-07 12:56] LABS: ALBUMIN 2.9 g/dl (3.4-5.0); ALK PHOS 115 U/L (45-117); ANION GAP 13 (8-16); BILIRUBIN,TOTAL 0.4 mg/dL (0.2-1.0); CALCIUM 8.8 mg/dL (8.5-10.1); CO2 26 mmol/L (21-32); CREATININE 1.1 mg/dL (0.7-1.3); GLUCOSE,RANDOM 209 mg/dL (74-106); SGOT/AST 10 U/L (15-37); SGPT/ALT 20 U/L (12-78); TOT PROT 6.2 g/dl (6.4-8.2)
--- NOTE | 2016-10-07 14:48 | PN ---
GI Progress Note Subjective: Patient seen. Feeling better. Abdominal pain resolved for the most part. Seems to get relief with enemas which were ordered MRI reviewed. Benign vs malignant lesion AFP and CA19-9 negative - Objective Vital Signs: Vital Signs Temperature 97.8 F 10/07/16 02:10 Pulse Rate 55 L 10/07/16 02:10 Respiratory Rate 58 H 10/07/16 02:10 Blood Pressure 108/40 10/07/16 02:10 O2 Sat by Pulse Oximetry (%) 97 10/06/16 21:00 Constitutional: Well Nourished HENT: Yes: Normocephalic Neck: Yes: Supple Cardiovascular: Yes: Regular Rate and Rhythm, Bradycardia Respiratory: Yes: CTA Bilaterally Gastrointestinal Inspection: Yes: WNL ...Auscultate: Yes: Normoactive Bowel Sounds ...Palpate: Yes: Soft, Tenderness (RLQ) Labs: CBC, BMP 10/07/16 11:00 10/07/16 11:00 INR, PTT INR 2.20 (0.82-1.09) H 10/07/16 11:00 CA19-9 20 AFP 1.4 - ....Imaging MRI: Image Reviewed (irregular lesion in) Assessment/Plan 81 M with above history now with abdominal pain relieved with BM Laxative regimen ordered including enemas AXR shows possible cecal volvulus which is unlikely based on clinical status- patinet eating and having regular BMs Liver lesion (new) noted ion CT a few weeks ago. AFP, CA19-9 negative MRI equivocal Family more inclined for conservative approach, and are deciding whether PET vs MRI in 3 months Poor candidate for liver resection.
[2016-10-07] MEDS: WARFARIN NA 5 MG TABLET (UD) PO SCH (17:32)
[2016-10-07] MEDS: ATORVASTATIN CA 80 MG TABLET (FP) PO SCH (22:10)
[2016-10-07] MEDS: MONTELUKAST NA 10 MG TABLET PO SCH (22:11)
[2016-10-07 23:43] LABS: URINE APPEARANCE CLEAR; URINE BILIRUBIN NEGATIVE (NEGATIVE); URINE BLOOD NEGATIVE (NEGATIVE); URINE COLOR STRAW; URINE GLUCOSE (UA) 3+ (NEGATIVE); URINE KETONE NEGATIVE (NEGATIVE); URINE LEUK ESTERASE NEGATIVE (NEGATIVE); URINE NITRITE NEGATIVE (NEGATIVE); URINE PROTEIN NEGATIVE (NEGATIVE); URINE UROBILINOGEN NEGATIVE E.U./dl (0.2-1.0)
[2016-10-08] MEDS: ACETAMINOPHEN 325 MG TABLET (FP) PO PRN ×2 (05:30→23:50)
[2016-10-08] MEDS: INSULIN SLIDING SCALE (NOVOLOG) 1 VIAL SQ SCH ×4 (06:31→22:54)
[2016-10-08] MEDS: INSULIN DETEMIR 100 UNITS/ML MDV SQ SCH ×2 (06:32→17:35)
[2016-10-08] MEDS: oxyCODONE HCL 5 MG TABLET PO PRN ×2 (07:10→22:39)
[2016-10-08 08:00] LABS: BASOPHIL 0.6 % (0-2.0); EOSINOPHIL 3.4 % (0-4.5); MCH 29.7 pg (25.7-33.7); MCHC 33.9 g/dl (32.0-35.9); MEAN CELL VOLUME 87.5 fl (80-96); MEAN PLT VOLUME 9.1 fl (7.5-11.1); PLATELET COUNT 196 K/MM3 (134-434); RDW 19.1 % (11.9-15.9)
[2016-10-08 08:07] LABS: INR 2.31 (0.82-1.09); PROTHROMBIN TIME (PATIENT) 25.8 SEC (9.98-11.88)
[2016-10-08] MEDS ORDERED: PT OWN MED DRAWER 7, Y5N ONE ×3 (08:19→21:59)
[2016-10-08] MEDS: TAMSULOSIN HCL 0.4 MG CAP.ER.24H (FP) PO SCH (08:23)
[2016-10-08] MEDS: LIPASE/PROTEASE/AMYLASE 6,000 UNIT CAPSULE PO SCH ×3 (08:23→17:36)
[2016-10-08 08:40] LABS: ALBUMIN 2.7 g/dl (3.4-5.0); BILIRUBIN,TOTAL 0.4 mg/dL (0.2-1.0); CALCIUM 8.3 mg/dL (8.5-10.1); CREATININE 1.4 mg/dL (0.7-1.3)
[2016-10-08] MEDS: RANOLAZINE E.R. 500 MG TABLET (FP) PO SCH ×2 (10:07→22:39)
[2016-10-08] MEDS: DULoxetine HCL 30 MG CAPSULE.DR (FP) PO SCH (10:07)
[2016-10-08] MEDS: CARVEDILOL 3.125 MG TABLET (FP) PO SCH ×2 (10:09→22:38)
[2016-10-08] MEDS: GABAPENTIN 100 MG CAPSULE (FP) PO SCH ×2 (10:09→22:39)
[2016-10-08] MEDS: PANTOPRAZOLE 40 MG TABLET (FP) PO SCH (10:09)
[2016-10-08] MEDS: LISINOPRIL 5 MG TABLET (FP) PO SCH (10:10)
[2016-10-08] MEDS: LORATADINE 10 MG TABLET PO SCH (10:10)
[2016-10-08] MEDS: SPIRONOLACTONE 25 MG TABLET (FP) PO SCH (10:10)
[2016-10-08] MEDS: predniSONE 10 MG TABLET (UD) PO SCH (10:11)
[2016-10-08] MEDS: ASPIRIN COATED 81 MG TABLET.EC PO SCH (10:11)
[2016-10-08] MEDS: BISACODYL 5 MG TABLET.DR (FP) PO SCH (10:11)
[2016-10-08] MEDS: FUROSEMIDE 40 MG TABLET (FP) PO SCH (10:12)
[2016-10-08] MEDS: SIMETHICONE 80 MG TAB.CHEW (FP) PO SCH ×4 (10:12→22:39)
[2016-10-08] MEDS: TICAGRELOR 90 MG TABLET PO SCH ×2 (10:15→22:38)
[2016-10-08] MEDS: POLYETHYLENE GLYCOL 3350 119 GM BTL PO SCH ×2 (10:16→22:38)
--- NOTE | 2016-10-08 10:17 | PN ---
Progress Note, Physician History of Present Illness: C/O LEG PAIN C/O CONSTIPATION C/O DIFFICULTY URINATING - Current Medication List Current Medications: Active Medications Acetaminophen (Tylenol -) 650 mg PO Q6H PRN PRN Reason: FEVER OR PAIN Last Admin: 10/08/16 05:30 Dose: 650 mg Albuterol/Ipratropium (Duoneb -) 1 amp NEB Q4H PRN PRN Reason: sob Aspirin (Ecotrin -) 81 mg PO DAILY [facility] Last Admin: 10/07/16 09:48 Dose: 81 mg Atorvastatin Calcium (Lipitor -) 80 mg PO HS [facility] Last Admin: 10/07/16 22:10 Dose: 80 mg Bisacodyl (Dulcolax -) 5 mg PO DAILY [facility] Last Admin: 10/07/16 09:48 Dose: 5 mg Carvedilol (Coreg -) 3.125 mg PO BID [facility] Last Admin: 10/07/16 22:10 Dose: 3.125 mg Duloxetine HCl (Cymbalta -) 60 mg PO DAILY [facility] Last Admin: 10/07/16 09:47 Dose: 60 mg Furosemide (Lasix -) 40 mg PO DAILY [facility] Last Admin: 10/07/16 09:47 Dose: 40 mg Gabapentin (Neurontin -) 200 mg PO BID [facility] Last Admin: 10/07/16 22:11 Dose: 200 mg Insulin Aspart (Novolog Vial Sliding Scale -) 1 vial SQ ACHS [facility] PRN Reason: Protocol Last Admin: 10/08/16 06:31 Dose: 2 units Insulin Detemir (Levemir Vial) 25 units SQ BIDI [facility] Last Admin: 10/08/16 06:32 Dose: 25 units Lisinopril (Prinivil) 5 mg PO DAILY [facility] Last Admin: 10/07/16 09:48 Dose: 5 mg Loratadine (Claritin -) 10 mg PO DAILY [facility] Last Admin: 10/07/16 09:48 Dose: 10 mg Methylnaltrexone [place] (Relistor -) 12 mg SQ DAILY [facility] Last Admin: 10/07/16 12:37 Dose: Not Given Montelukast Sodium (Singulair -) 10 mg PO HS [facility] Last Admin: 10/07/16 22:11 Dose: 10 mg Oxycodone HCl (Roxicodone -) 5 mg PO QID PRN Last Admin: 10/08/16 07:10 Dose: 5 mg Pancrelipase (Creon Dr 6,000 Units Capsule) 4 cap PO TIDCM [facility] Last Admin: 10/08/16 08:23 Dose: 4 cap Pantoprazole Sodium (Protonix -) 40 mg PO DAILY [facility] Last Admin: 10/07/16 09:48 Dose: 40 mg Polyethylene Glycol (Miralax (For Daily Use) -) 17 gm PO BID [facility] Last Admin: 10/07/16 22:10 Dose: 17 gm Prednisone (Deltasone -) 10 mg PO DAILY [facility] Last Admin: 10/07/16 09:48 Dose: 10 mg Ranolazine (Ranexa -) 500 mg PO BID [facility] Last Admin: 10/07/16 22:11 Dose: 500 mg Simethicone (Mylicon -) 80 mg PO QID [facility] Last Admin: 10/07/16 22:11 Dose: 80 mg Spironolactone (Aldactone -) 25 mg PO DAILY [facility] Last Admin: 10/07/16 09:48 Dose: 25 mg Tamsulosin HCl (Flomax -) 0.4 mg PO DAILY@0830 [facility] Last Admin: 10/08/16 08:23 Dose: 0.4 mg Ticagrelor (Brilinta -) 90 mg PO BID [facility] Last Admin: 10/07/16 22:10 Dose: 90 mg Warfarin Sodium (Coumadin -) 5 mg PO DAILY@1800 [facility] Last Admin: 10/07/16 17:32 Dose: 5 mg - Objective Vital Signs: Vital Signs Temperature 98.2 F 10/08/16 06:23 Pulse Rate 52 L 10/08/16 06:23 Respiratory Rate 20 10/08/16 06:23 Blood Pressure 94/42 10/08/16 06:23 O2 Sat by Pulse Oximetry (%) 94 L 10/07/16 21:00 Cardiovascular: Yes: Regular Rate and Rhythm Respiratory: Yes: Regular, CTA Bilaterally Gastrointestinal: Yes: Normal Bowel Sounds, Soft. No: Tenderness Edema: No Labs: CBC, BMP 10/08/16 05:35 10/08/16 05:35 INR, PTT INR 2.31 (0.82-1.09) H 10/08/16 05:35 Problem List - Problems (1) Atrial fibrillation Assessment/Plan: CARDIO CONSULT NOTED ON COUMADIN MONITOR LABS--INR 2.2 INR, PTT INR 2.31 (0.82-1.09) H 10/08/16 05:35 Code(s): I48.91 - UNSPECIFIED ATRIAL FIBRILLATION Qualifiers: Atrial fibrillation type: unspecified Qualified Code(s): I48.91 - Unspecified atrial fibrillation (2) CAD in [place] artery Assessment/Plan: CONTINUE WITH ASA/BRILLINTA Code(s): I25.10 - ATHSCL HEART DISEASE OF [place] CORONARY ARTERY W/O ANG PCTRS (3) Abdominal distension (gaseous) Assessment/Plan: CONSTIPATION MEDS ADJUSTED ADD SIMITHICONE ON PPI FUA Code(s): R14.0 - ABDOMINAL DISTENSION (GASEOUS) (4) Diabetes Assessment/Plan: INSULIN BGM Code(s): E11.9 - TYPE 2 DIABETES MELLITUS WITHOUT COMPLICATIONS Qualifiers: Diabetes mellitus type: type 2 (5) Fracture, tibia and fibula, shaft Assessment/Plan: XRAY ORTHO Code(s): S82.209A - UNSP FRACTURE OF SHAFT OF UNSP TIBIA, INIT FOR CLOS FX S82.409A - UNSP FRACTURE OF SHAFT OF UNSP FIBULA, INIT FOR CLOS FX Qualifiers : Encounter type: initial encounter Fracture type: closed Laterality : left Qualified Code(s): S82.202A - Unspecified fracture of shaft of left tibia, initial encounter for closed fracture; S82.402A - Unspecified fracture of shaft of left fibula, initial encounter for closed fracture (6) Liver lesion Assessment/Plan: MRI NOTED CONSIDER PET SCAN OUTPATIENT VS F/U MRI Code(s): K76.9 - LIVER DISEASE, UNSPECIFIED
[2016-10-08] MEDS ORDERED: ALBUTEROL SO4 2.5/IPRATROPIUM 0.5 INH SOL 3 ML VIAL.NEB. NEB SCH ×2 (10:45→13:39)
[2016-10-08] MEDS: Methylnaltrexone Bromide 12 MG/0.6 ML KIT SQ SCH (12:11)
[2016-10-08] MEDS: WARFARIN NA 5 MG TABLET (UD) PO SCH (17:36)
[2016-10-08] MEDS: ALBUTEROL SO4 2.5/IPRATROPIUM 0.5 INH SOL 3 ML VIAL.NEB. NEB SCH (21:45)
[2016-10-08] MEDS: ATORVASTATIN CA 80 MG TABLET (FP) PO SCH (22:38)
[2016-10-08] MEDS: MONTELUKAST NA 10 MG TABLET PO SCH (22:39)
[2016-10-09] MEDS: INSULIN SLIDING SCALE (NOVOLOG) 1 VIAL SQ SCH ×4 (06:08→22:38)
[2016-10-09] MEDS: INSULIN DETEMIR 100 UNITS/ML MDV SQ SCH ×2 (06:09→19:14)
--- NOTE | 2016-10-09 06:09 | HOSP ---
Physical Examination Vital Signs: Vital Signs Temperature 97.7 F 10/09/16 02:00 Pulse Rate 57 L 10/09/16 02:00 Respiratory Rate 18 10/09/16 02:00 Blood Pressure 84/52 10/09/16 02:00 O2 Sat by Pulse Oximetry (%) 94 L 10/08/16 21:00 Labs: CBC, BMP 10/08/16 05:35 10/08/16 05:35 Hospitalist Encounter Assessment: I was paged by the nurse to come examine the patient who complains of chest pain. When questioning the patient he states he had sharp left sided chest pain around 0414 ( two hours prior to encounter) but reports the pain resolved. He now reports resolution of chest pain and denies any shortness of breath, palpitations, nausea, vomiting, diaphoresis. PHYSICAL EXAM: Vitals: 127/61, 58 HR, 98.1 F, 97% O2 sat @ RA, 198 glucose Cardiovascular: Bradycardia with regular rhythm. Normal S1 and S2. No murmurs, rubs or gallops Pulmonology: Speaking without difficulty and no use of accessory muscles. Lungs clear throughout lung bases with no wheezes. 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 -Patient's post commander and PCP called by nurse and messages left to their intelligence applications services. Visit type - Emergency Visit Emergency Visit: No - New Patient This patient is new to me today: Yes Date on this admission: 10/09/16 - Critical Care Critical Care patient: No
[2016-10-09] MEDS: ALBUTEROL SO4 2.5/IPRATROPIUM 0.5 INH SOL 3 ML VIAL.NEB. NEB SCH ×5 (06:35→23:30)
[2016-10-09] MEDS ORDERED: PT OWN MED DRAWER 7, Y5N ONE ×4 (08:27→22:24)
[2016-10-09] MEDS: LIPASE/PROTEASE/AMYLASE 6,000 UNIT CAPSULE PO SCH ×3 (08:30→19:15)
[2016-10-09] MEDS: TAMSULOSIN HCL 0.4 MG CAP.ER.24H (FP) PO SCH (08:30)
--- NOTE | 2016-10-09 08:37 | PN ---
Progress Note, Physician History of Present Illness: C/O LEG PAIN C/O CONSTIPATION C/O DIFFICULTY URINATING HAD CHEST PAIN - Current Medication List Current Medications: Active Medications Acetaminophen (Tylenol -) 650 mg PO Q6H PRN PRN Reason: FEVER OR PAIN Last Admin: 10/08/16 23:50 Dose: 650 mg Albuterol/Ipratropium (Duoneb -) 1 amp NEB Q4HWA [facility] Last Admin: 10/09/16 06:35 Dose: 1 amp Aspirin (Ecotrin -) 81 mg PO DAILY [facility] Last Admin: 10/08/16 10:11 Dose: 81 mg Atorvastatin Calcium (Lipitor -) 80 mg PO HS [facility] Last Admin: 10/08/16 22:38 Dose: 80 mg Bisacodyl (Dulcolax -) 5 mg PO DAILY [facility] Last Admin: 10/08/16 10:11 Dose: 5 mg Carvedilol (Coreg -) 3.125 mg PO BID [facility] Last Admin: 10/08/16 22:38 Dose: 3.125 mg Duloxetine HCl (Cymbalta -) 60 mg PO DAILY [facility] Last Admin: 10/08/16 10:07 Dose: 60 mg Furosemide (Lasix -) 40 mg PO DAILY [facility] Last Admin: 10/08/16 10:12 Dose: 40 mg Gabapentin (Neurontin -) 200 mg PO BID [facility] Last Admin: 10/08/16 22:39 Dose: 200 mg Insulin Aspart (Novolog Vial Sliding Scale -) 1 vial SQ ACHS [facility] PRN Reason: Protocol Last Admin: 10/09/16 06:08 Dose: Not Given Insulin Detemir (Levemir Vial) 25 units SQ BIDI [facility] Last Admin: 10/09/16 06:09 Dose: 25 units Lisinopril (Prinivil) 5 mg PO DAILY [facility] Last Admin: 10/08/16 10:10 Dose: 5 mg Loratadine (Claritin -) 10 mg PO DAILY [facility] Last Admin: 10/08/16 10:10 Dose: 10 mg Methylnaltrexone [place] (Relistor -) 12 mg SQ DAILY [facility] Last Admin: 10/08/16 12:11 Dose: Not Given Montelukast Sodium (Singulair -) 10 mg PO HS [facility] Last Admin: 10/08/16 22:39 Dose: 10 mg Oxycodone HCl (Roxicodone -) 5 mg PO QID PRN Last Admin: 10/08/16 22:39 Dose: 5 mg Pancrelipase (Creon Dr 6,000 Units Capsule) 4 cap PO TIDCM [facility] Last Admin: 10/09/16 08:30 Dose: 4 cap Pantoprazole Sodium (Protonix -) 40 mg PO DAILY [facility] Last Admin: 10/08/16 10:09 Dose: 40 mg Polyethylene Glycol (Miralax (For Daily Use) -) 17 gm PO BID [facility] Last Admin: 10/08/16 22:38 Dose: 17 gm Prednisone (Deltasone -) 5 mg PO DAILY [facility] Ranolazine (Ranexa -) 500 mg PO BID [facility] Last Admin: 10/08/16 22:39 Dose: 500 mg Simethicone (Mylicon -) 80 mg PO QID [facility] Last Admin: 10/08/16 22:39 Dose: 80 mg Spironolactone (Aldactone -) 25 mg PO DAILY [facility] Last Admin: 10/08/16 10:10 Dose: 25 mg Tamsulosin HCl (Flomax -) 0.4 mg PO DAILY@0830 [facility] Last Admin: 10/09/16 08:30 Dose: 0.4 mg Ticagrelor (Brilinta -) 90 mg PO BID [facility] Last Admin: 10/08/16 22:38 Dose: 90 mg Warfarin Sodium (Coumadin -) 5 mg PO DAILY@1800 [facility] Last Admin: 10/08/16 17:36 Dose: 5 mg - Objective Vital Signs: Vital Signs Temperature 98.1 F 10/09/16 06:00 Pulse Rate 58 L 10/09/16 06:00 Respiratory Rate 20 10/09/16 06:00 Blood Pressure 127/60 10/09/16 06:00 O2 Sat by Pulse Oximetry (%) 94 L 10/08/16 21:00 Cardiovascular: Yes: Regular Rate and Rhythm Respiratory: Yes: Regular, CTA Bilaterally Gastrointestinal: Yes: Normal Bowel Sounds, Soft Labs: CBC, BMP 10/08/16 05:35 10/08/16 05:35 INR, PTT INR 2.31 (0.82-1.09) H 10/08/16 05:35 Problem List - Problems (1) Atrial fibrillation Assessment/Plan: CARDIO CONSULT NOTED ON COUMADIN MONITOR LABS--INR 2.2 INR, PTT INR 2.31 (0.82-1.09) H 10/08/16 05:35 Code(s): I48.91 - UNSPECIFIED ATRIAL FIBRILLATION Qualifiers: Atrial fibrillation type: unspecified Qualified Code(s): I48.91 - Unspecified atrial fibrillation (2) CAD in [place] artery Assessment/Plan: CONTINUE WITH ASA/BRILLINTA FOLLOW UP CE AND EKG Code(s): I25.10 - ATHSCL HEART DISEASE OF [place] CORONARY ARTERY W/O ANG PCTRS (3) Abdominal distension (gaseous) Assessment/Plan: CONSTIPATION MEDS ADJUSTED ADD SIMITHICONE ON PPI FUA NOTED--[place] Code(s): R14.0 - ABDOMINAL DISTENSION (GASEOUS) (4) Diabetes Assessment/Plan: INSULIN BGM Code(s): E11.9 - TYPE 2 DIABETES MELLITUS WITHOUT COMPLICATIONS Qualifiers: Diabetes mellitus type: type 2 (5) Fracture, tibia and fibula, shaft Assessment/Plan: XRAY ORTHO Code(s): S82.209A - UNSP FRACTURE OF SHAFT OF UNSP TIBIA, INIT FOR CLOS FX S82.409A - UNSP FRACTURE OF SHAFT OF UNSP FIBULA, INIT FOR CLOS FX Qualifiers : Encounter type: initial encounter Fracture type: closed Laterality : left Qualified Code(s): S82.202A - Unspecified fracture of shaft of left tibia, initial encounter for closed fracture; S82.402A - Unspecified fracture of shaft of left fibula, initial encounter for closed fracture (6) Liver lesion Assessment/Plan: MRI NOTED CONSIDER PET SCAN OUTPATIENT VS F/U MRI Code(s): K76.9 - LIVER DISEASE, UNSPECIFIED
[2016-10-09 08:58] LABS: BASOPHIL 0.9 % (0-2.0); EOSINOPHIL 3.9 % (0-4.5); MCH 29.7 pg (25.7-33.7); MCHC 33.7 g/dl (32.0-35.9); MEAN PLT VOLUME 9.3 fl (7.5-11.1); PLATELET COUNT 218 K/MM3 (134-434); RDW 18.5 % (11.9-15.9); WHITE BLOOD COUNT 9.4 K/mm3 (4.0-10.0)
--- NOTE | 2016-10-09 09:04 | PN ---
Progress Note, Physician History of Present Illness: Denies dyspnea. He reports intermittent left sided chest discomfort/epigastric discomfort only when waking in morning. Currently denies chest pain. - Current Medication List Current Medications: Active Medications Acetaminophen (Tylenol -) 650 mg PO Q6H PRN PRN Reason: FEVER OR PAIN Last Admin: 10/08/16 23:50 Dose: 650 mg Albuterol/Ipratropium (Duoneb -) 1 amp NEB Q4HWA [facility] Last Admin: 10/09/16 06:35 Dose: 1 amp Aspirin (Ecotrin -) 81 mg PO DAILY [facility] Last Admin: 10/08/16 10:11 Dose: 81 mg Atorvastatin Calcium (Lipitor -) 80 mg PO HS [facility] Last Admin: 10/08/16 22:38 Dose: 80 mg Bisacodyl (Dulcolax -) 5 mg PO DAILY [facility] Last Admin: 10/08/16 10:11 Dose: 5 mg Carvedilol (Coreg -) 3.125 mg PO BID [facility] Last Admin: 10/08/16 22:38 Dose: 3.125 mg Duloxetine HCl (Cymbalta -) 60 mg PO DAILY [facility] Last Admin: 10/08/16 10:07 Dose: 60 mg Furosemide (Lasix -) 40 mg PO DAILY [facility] Last Admin: 10/08/16 10:12 Dose: 40 mg Gabapentin (Neurontin -) 200 mg PO BID [facility] Last Admin: 10/08/16 22:39 Dose: 200 mg Insulin Aspart (Novolog Vial Sliding Scale -) 1 vial SQ ACHS [facility] PRN Reason: Protocol Last Admin: 10/09/16 06:08 Dose: Not Given Insulin Detemir (Levemir Vial) 25 units SQ BIDI [facility] Last Admin: 10/09/16 06:09 Dose: 25 units Lisinopril (Prinivil) 5 mg PO DAILY [facility] Last Admin: 10/08/16 10:10 Dose: 5 mg Loratadine (Claritin -) 10 mg PO DAILY [facility] Last Admin: 10/08/16 10:10 Dose: 10 mg Methylnaltrexone [place] (Relistor -) 12 mg SQ DAILY [facility] Last Admin: 10/08/16 12:11 Dose: Not Given Montelukast Sodium (Singulair -) 10 mg PO HS [facility] Last Admin: 10/08/16 22:39 Dose: 10 mg Oxycodone HCl (Roxicodone -) 5 mg PO QID PRN Last Admin: 10/08/16 22:39 Dose: 5 mg Pancrelipase (Creon Dr 6,000 Units Capsule) 4 cap PO TIDCM [facility] Last Admin: 10/09/16 08:30 Dose: 4 cap Pantoprazole Sodium (Protonix -) 40 mg PO DAILY [facility] Last Admin: 10/08/16 10:09 Dose: 40 mg Polyethylene Glycol (Miralax (For Daily Use) -) 17 gm PO TID [facility] Prednisone (Deltasone -) 5 mg PO DAILY [facility] Ranolazine (Ranexa -) 500 mg PO BID [facility] Last Admin: 10/08/16 22:39 Dose: 500 mg Simethicone (Mylicon -) 80 mg PO QID [facility] Last Admin: 10/08/16 22:39 Dose: 80 mg Spironolactone (Aldactone -) 25 mg PO DAILY [facility] Last Admin: 10/08/16 10:10 Dose: 25 mg Tamsulosin HCl (Flomax -) 0.4 mg PO DAILY@0830 [facility] Last Admin: 10/09/16 08:30 Dose: 0.4 mg Ticagrelor (Brilinta -) 90 mg PO BID [facility] Last Admin: 10/08/16 22:38 Dose: 90 mg Warfarin Sodium (Coumadin -) 5 mg PO DAILY@1800 [facility] Last Admin: 10/08/16 17:36 Dose: 5 mg - Objective Vital Signs: Vital Signs Temperature 98.1 F 10/09/16 06:00 Pulse Rate 58 L 10/09/16 06:00 Respiratory Rate 20 10/09/16 06:00 Blood Pressure 127/60 10/09/16 06:00 O2 Sat by Pulse Oximetry (%) 94 L 10/08/16 21:00 Constitutional: Yes: No Distress Eyes: Yes: Conjunctiva Clear, EOM Intact HENT: Yes: Atraumatic, Normocephalic Cardiovascular: Yes: Regular Rate and Rhythm. No: JVD, Murmur Respiratory: Yes: CTA Bilaterally Gastrointestinal: Yes: Normal Bowel Sounds, Soft Edema: No Neurological: Yes: Alert, Oriented, Cran Nerves II-XII Intact Labs: INR, PTT INR 2.31 (0.82-1.09) H 10/08/16 05:35 Assessment/Plan 81 yo male with remote smoking history, HTN, hyperlipidemia, DM, CAD -> reported stents x2 in 2010 (no prior TN), acute/subacute anteroseptal TN on 12/17 and underwent thrombectomy and PCI of proximal and mid LAD with Promus Premier stents and PTCA of D1 at [facility], and ischemic cardiomyopathy (LVEF 34 % per 02/16/16 nuclear stress test). Patient presented to ED with intermittent tremors of hands/arms. Patient was also incidently noted to be in new onset atrial fibrillation, but rate controlled. Currently rate controlled. [id number] score = 5 (6.7% annual risk of stroke) Risks and benefits of anticoagulation were discussed with patient. It was decided to start anticoagulation with coumadin (INR goal 2-3). Patient currently has Medicare, however, if patient can afford one of the NOACs (novel oral anticoagulants), then he can be changed to Xarelto or Eliquis. Patient will be at increased risk of bleeding given that he is also on aspirin and Brilinta for anteroseptal TN on 12/18/15. However, Brilinta should ideally be continued until 11/2016 (1 year after TN). Will continue Brilinta until that time unless patient should develop bleeding complications prior to that date. 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 LVEF 34%. Patient with intermittent epigastric discomfort in AM only. Suspect GI cause of his symptoms as his trop this AM was negative and ECG today did not demonstrate any acute ECG changes. RECS: Continue current cardiac meds. Continue coumadin 5 mg po daily, goal INR 2-3. Monitor INR daily. Will follow. Call with questions.
--- NOTE | 2016-10-09 09:26 | PN ---
Progress Note (short form) - Note Progress Note: Ortho Pt seen and examined s/p left tib IM linda with delayed union incisions well healed, mild ttp, good rom nvi a/p will need bone graft for delayed union can be done as outpatient may d/c from ortho pov d/w Dr. Harris
[2016-10-09] MEDS: SPIRONOLACTONE 25 MG TABLET (FP) PO SCH (10:20)
[2016-10-09] MEDS: Methylnaltrexone Bromide 12 MG/0.6 ML KIT SQ SCH (10:20)
[2016-10-09] MEDS: SIMETHICONE 80 MG TAB.CHEW (FP) PO SCH ×4 (10:21→22:25)
[2016-10-09] MEDS: BISACODYL 5 MG TABLET.DR (FP) PO SCH (10:21)
[2016-10-09] MEDS: DULoxetine HCL 30 MG CAPSULE.DR (FP) PO SCH (10:21)
[2016-10-09] MEDS: CARVEDILOL 3.125 MG TABLET (FP) PO SCH ×2 (10:21→22:26)
[2016-10-09] MEDS: GABAPENTIN 100 MG CAPSULE (FP) PO SCH ×2 (10:21→22:25)
[2016-10-09] MEDS: ASPIRIN COATED 81 MG TABLET.EC PO SCH (10:21)
[2016-10-09] MEDS: FUROSEMIDE 40 MG TABLET (FP) PO SCH (10:21)
[2016-10-09] MEDS: predniSONE 5 MG TABLET (UD) PO SCH (10:21)
[2016-10-09] MEDS: LORATADINE 10 MG TABLET PO SCH (10:21)
[2016-10-09] MEDS: TICAGRELOR 90 MG TABLET PO SCH ×2 (10:21→22:27)
[2016-10-09] MEDS: PANTOPRAZOLE 40 MG TABLET (FP) PO SCH (10:22)
[2016-10-09] MEDS: RANOLAZINE E.R. 500 MG TABLET (FP) PO SCH ×2 (10:22→22:26)
[2016-10-09] MEDS: LISINOPRIL 5 MG TABLET (FP) PO SCH (10:22)
[2016-10-09 10:54] LABS: ALBUMIN 3.1 g/dl (3.4-5.0); BILIRUBIN,TOTAL 0.4 mg/dL (0.2-1.0); CALCIUM 8.6 mg/dL (8.5-10.1); CREATININE 1.2 mg/dL (0.7-1.3); TOT PROT 6.4 g/dl (6.4-8.2)
[2016-10-09 10:57] LABS: TROPONIN I 0.02 ng/ml (0.00-0.05)
[2016-10-09] MEDS: POLYETHYLENE GLYCOL 3350 119 GM BTL PO SCH ×2 (13:51→22:30)
[2016-10-09] MEDS ORDERED: SODIUM PHOSPHATE/NA BIPHOS 133 ML ENEMA RC ONE (14:15)
[2016-10-09 15:46] LABS: INR 2.31 (0.82-1.09); PROTHROMBIN TIME (PATIENT) 25.9 SEC (9.98-11.88)
[2016-10-09] MEDS: WARFARIN NA 5 MG TABLET (UD) PO SCH (19:12)
[2016-10-09] MEDS: MONTELUKAST NA 10 MG TABLET PO SCH (22:26)
[2016-10-09] MEDS: ATORVASTATIN CA 80 MG TABLET (FP) PO SCH (22:26)
[2016-10-10] MEDS ORDERED: INSULIN (NOVOLOG) ASPART 100 UNITS/ML 10ML VIAL ONE (06:13)
[2016-10-10] MEDS: INSULIN SLIDING SCALE (NOVOLOG) 1 VIAL SQ SCH ×3 (06:27→17:08)
[2016-10-10] MEDS: INSULIN DETEMIR 100 UNITS/ML MDV SQ SCH ×2 (06:29→17:07)
[2016-10-10] MEDS: POLYETHYLENE GLYCOL 3350 119 GM BTL PO SCH ×2 (06:29→14:49)
[2016-10-10] MEDS: ALBUTEROL SO4 2.5/IPRATROPIUM 0.5 INH SOL 3 ML VIAL.NEB. NEB SCH ×4 (07:21→17:29)
[2016-10-10] MEDS ORDERED: PT OWN MED DRAWER 7, Y5N ONE (08:01)
[2016-10-10] MEDS: TAMSULOSIN HCL 0.4 MG CAP.ER.24H (FP) PO SCH (08:05)
[2016-10-10] MEDS: LIPASE/PROTEASE/AMYLASE 6,000 UNIT CAPSULE PO SCH ×3 (08:05→17:09)
--- NOTE | 2016-10-10 10:21 | PN ---
Progress Note, Physician History of Present Illness: No new complaints. Resting comfortably. - Current Medication List Current Medications: Active Medications Acetaminophen (Tylenol -) 650 mg PO Q6H PRN PRN Reason: FEVER OR PAIN Last Admin: 10/08/16 23:50 Dose: 650 mg Albuterol/Ipratropium (Duoneb -) 1 amp NEB Q4HWA [facility] Last Admin: 10/10/16 07:21 Dose: 1 amp Aspirin (Ecotrin -) 81 mg PO DAILY [facility] Last Admin: 10/09/16 10:21 Dose: 81 mg Atorvastatin Calcium (Lipitor -) 80 mg PO HS [facility] Last Admin: 10/09/16 22:26 Dose: 80 mg Bisacodyl (Dulcolax -) 5 mg PO DAILY [facility] Last Admin: 10/09/16 10:21 Dose: 5 mg Carvedilol (Coreg -) 3.125 mg PO BID [facility] Last Admin: 10/09/16 22:26 Dose: 3.125 mg Duloxetine HCl (Cymbalta -) 60 mg PO DAILY [facility] Last Admin: 10/09/16 10:21 Dose: 60 mg Furosemide (Lasix -) 40 mg PO DAILY [facility] Last Admin: 10/09/16 10:21 Dose: 40 mg Gabapentin (Neurontin -) 200 mg PO BID [facility] Last Admin: 10/09/16 22:25 Dose: 200 mg Insulin Aspart (Novolog Vial Sliding Scale -) 1 vial SQ ACHS [facility] PRN Reason: Protocol Last Admin: 10/10/16 06:27 Dose: Not Given Insulin Detemir (Levemir Vial) 25 units SQ BIDI [facility] Last Admin: 10/10/16 06:29 Dose: 25 units Lisinopril (Prinivil) 5 mg PO DAILY [facility] Last Admin: 10/09/16 10:22 Dose: 5 mg Loratadine (Claritin -) 10 mg PO DAILY [facility] Last Admin: 10/09/16 10:21 Dose: 10 mg Methylnaltrexone Ke[place] (Relistor -) 12 mg SQ DAILY [facility] Last Admin: 10/09/16 10:20 Dose: 12 mg Montelukast Sodium (Singulair -) 10 mg PO HS [facility] Last Admin: 10/09/16 22:26 Dose: 10 mg Oxycodone HCl (Roxicodone -) 5 mg PO QID PRN Last Admin: 10/08/16 22:39 Dose: 5 mg Pancrelipase (Creon Dr 6,000 Units Capsule) 4 cap PO TIDCM [facility] Last Admin: 10/10/16 08:05 Dose: 4 cap Pantoprazole Sodium (Protonix -) 40 mg PO DAILY [facility] Last Admin: 10/09/16 10:22 Dose: 40 mg Polyethylene Glycol (Miralax (For Daily Use) -) 17 gm PO TID [facility] Last Admin: 10/10/16 06:29 Dose: 17 gm Prednisone (Deltasone -) 5 mg PO DAILY [facility] Last Admin: 10/09/16 10:21 Dose: 5 mg Ranolazine (Ranexa -) 500 mg PO BID [facility] Last Admin: 10/09/16 22:26 Dose: 500 mg Simethicone (Mylicon -) 80 mg PO QID [facility] Last Admin: 10/09/16 22:25 Dose: 80 mg Spironolactone (Aldactone -) 25 mg PO DAILY [facility] Last Admin: 10/09/16 10:20 Dose: 25 mg Tamsulosin HCl (Flomax -) 0.4 mg PO DAILY@0830 [facility] Last Admin: 10/10/16 08:05 Dose: 0.4 mg Ticagrelor (Brilinta -) 90 mg PO BID [facility] Last Admin: 10/09/16 22:27 Dose: 90 mg Warfarin Sodium (Coumadin -) 5 mg PO DAILY@1800 [facility] Last Admin: 10/09/16 19:12 Dose: 5 mg - Objective Vital Signs: Vital Signs Temperature 97.5 F L 10/10/16 08:00 Pulse Rate 53 L 10/10/16 08:00 Respiratory Rate 20 10/10/16 08:00 Blood Pressure 114/55 10/10/16 08:00 O2 Sat by Pulse Oximetry (%) 92 L 10/09/16 21:00 Constitutional: Yes: No Distress Eyes: Yes: Conjunctiva Clear, EOM Intact HENT: Yes: Atraumatic, Normocephalic Cardiovascular: Yes: Regular Rate and Rhythm. No: JVD, Murmur Respiratory: Yes: CTA Bilaterally Edema: No Labs: CBC, BMP 10/09/16 05:35 10/09/16 05:35 INR, PTT INR 2.31 (0.82-1.09) H 10/09/16 14:55 Assessment/Plan 81 yo male with remote smoking history, HTN, hyperlipidemia, DM, CAD -> reported stents x2 in 2010 (no prior NE), acute/subacute anteroseptal NE on 12/17 and underwent thrombectomy and PCI of proximal and mid LAD with Promus Premier stents and PTCA of D1 at [facility], and ischemic cardiomyopathy (LVEF 34 % per 02/16/16 nuclear stress test). Patient presented to ED with intermittent tremors of hands/arms. Patient was also incidently noted to be in new onset atrial fibrillation, but rate controlled. Currently rate controlled. [id number] score = 5 (6.7% annual risk of stroke) Risks and benefits of anticoagulation were discussed with patient. It was decided to start anticoagulation with coumadin (INR goal 2-3). Patient currently has Medicare, however, if patient can afford one of the NOACs (novel oral anticoagulants), then he can be changed to Xarelto or Eliquis. Patient will be at increased risk of bleeding given that he is also on aspirin and Brilinta for anteroseptal NE on 12/18/15. However, Brilinta should ideally be continued until 11/2016 (1 year after NE). Will continue Brilinta until that time unless patient should develop bleeding complications prior to that date. 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 LVEF 34%. Patient with intermittent epigastric discomfort in AM only. Suspect GI cause of his symptoms as his trop this AM was negative and ECG today did not demonstrate any acute ECG changes. RECS: Continue current cardiac meds. Continue coumadin 5 mg po daily, goal INR 2-3. INR 2.31 on 10/09. INR today pending. Monitor INR daily. Patient may be discharged from cardiac standpoint with outpatient follow-up. Patient will also need INR check in 1 week. Will see prn. Call with questions.
[2016-10-10] MEDS: GABAPENTIN 100 MG CAPSULE (FP) PO SCH (10:40)
[2016-10-10] MEDS: SIMETHICONE 80 MG TAB.CHEW (FP) PO SCH ×3 (10:41→17:09)
[2016-10-10] MEDS: CARVEDILOL 3.125 MG TABLET (FP) PO SCH (10:42)
[2016-10-10] MEDS: RANOLAZINE E.R. 500 MG TABLET (FP) PO SCH (10:42)
[2016-10-10] MEDS: LORATADINE 10 MG TABLET PO SCH (10:42)
[2016-10-10] MEDS: predniSONE 5 MG TABLET (UD) PO SCH (10:42)
[2016-10-10] MEDS: BISACODYL 5 MG TABLET.DR (FP) PO SCH (10:42)
[2016-10-10] MEDS: ASPIRIN COATED 81 MG TABLET.EC PO SCH (10:42)
[2016-10-10] MEDS: LISINOPRIL 5 MG TABLET (FP) PO SCH (10:42)
[2016-10-10] MEDS: PANTOPRAZOLE 40 MG TABLET (FP) PO SCH (10:42)
[2016-10-10] MEDS: SPIRONOLACTONE 25 MG TABLET (FP) PO SCH (10:42)
[2016-10-10] MEDS: FUROSEMIDE 40 MG TABLET (FP) PO SCH (10:42)
[2016-10-10] MEDS: TICAGRELOR 90 MG TABLET PO SCH (10:43)
[2016-10-10] MEDS: Methylnaltrexone Bromide 12 MG/0.6 ML KIT SQ SCH (10:44)
[2016-10-10] MEDS: DULoxetine HCL 30 MG CAPSULE.DR (FP) PO SCH (10:47)
--- NOTE | 2016-10-10 10:52 | DS ---
Physical Examination Vital Signs: Vital Signs Temperature 97.5 F L 10/10/16 08:00 Pulse Rate 53 L 10/10/16 08:00 Respiratory Rate 20 10/10/16 08:00 Blood Pressure 114/55 10/10/16 08:00 O2 Sat by Pulse Oximetry (%) 92 L 10/09/16 21:00 Constitutional: Yes: Calm Neck: Yes: Trachea Midline Cardiovascular: Yes: Regular Rate and Rhythm, S1, S2 Respiratory: Yes: CTA Bilaterally Gastrointestinal: Yes: Normal Bowel Sounds, Soft Edema: Yes Neurological: Yes: Alert, Oriented Labs: CBC, BMP 10/09/16 05:35 10/09/16 05:35 Discharge Summary Reason For Visit: ATRIAL FIBRILLATION Current Active Problems ASHD (arteriosclerotic heart disease) (Acute) Atrial fibrillation (Acute) CAD in [place] artery (Acute) Chest pain (Acute) Encephalopathy (Acute) Hemoglobin drop (Acute) Liver lesion (Acute) Pleural effusion (Acute) Hospital Course: 81 year old male with significant medical hx of dementia, aortic aneurysm (mild ascending aortic aneurysm (4.2 cm) per 01/[address]), CAD ( stents x2 in 2010; thrombectomy & PCI of proximal and mid LAD with Promus Premier stents and PTCA of D1 on 12/18/2015 at [facility] for acute/subacute anteroseptal [place]), recent Tib/ Fib fracture, HTN, hyperlipidemia, constipation, diverticulosis, DM and hypothyroidism, who presents to the ED with intermittent tremors since last night. Patient states he is not speaking properly but can't describe the issue well. Patient states he was also experiencing right lower abdominal pain last night that resolved itself. seen by ortho for left leg pain delay union will need bone graft as outpatient had abdominal MRI for liver lobe lesion outpatient FU seen by cardio on Coumadin for new onset afib brilinta and aspirin for stents in heart to continue tilll november of 2016 started on aldactone needs outpatinet FU with MD and Cardio Condition: Stable - Instructions Diet, Activity, Other Instructions: couamdin for atrial fibrillation INR check in one week Referrals: Rodriguez Rowan MD [Primary Care Provider] - 1 Week (for INR check) Fan Lynne MD [Staff Physician] - 2 Weeks (for leg pain- needs bone graft) Brian Burrell MD [Staff Physician] - 2 Weeks (liver lobe lesion) Disposition: HOME - Home Medications Comprehensive Discharge Medication List: Ambulatory Orders Acetaminophen [Pain Relief] 650 mg PO PRN PRN 07/29/16 Albuterol 2.5/Ipratropium 0.5 [Duoneb -] 1 neb NEB Q4H PRN 07/29/16 Alprazolam [Xanax] 0.25 mg PO BID 07/29/16 Atorvastatin Ca [Lipitor] 80 mg PO HS 07/29/16 Bacitracin - [Bacitracin Topical Ointment -] 1 applic TP DAILY 07/29/16 Carvedilol 3.125 mg PO BID 07/29/16 Cetirizine HCl [Zyrtec -] 10 mg PO DAILY 07/29/16 Duloxetine HCl [Cymbalta] 60 mg PO DAILY 07/29/16 Enalapril Maleate 2.5 mg PO DAILY 07/29/16 Gabapentin 200 mg PO BID 07/29/16 Insulin Detemir [Levemir Flextouch] 40 unit SQ BID 07/29/16 Lipase/Protease/Amylase [Creon Dr 6,000 Units Capsule] 1 cap PO TID 07/29/16 Methylnaltrexone [place]ell [Relistor] 12 mg SQ DAILY 07/29/16 Montelukast Na [Singulair -] 10 mg PO HS 07/29/16 Omeprazole 20 mg PO BID 07/29/16 Oxycodone HCl 5 mg PO Q4H PRN 07/29/16 Polyethylene Glycol 3350 [Miralax 119 gm Btl -] 17 gm PO DAILY 07/29/16 Tamsulosin HCl [Flomax] 0.4 mg PO DAILY 07/29/16 Ticagrelor [Brilinta] 90 mg PO BID 07/29/16 Aspirin Coated [Ecotrin -] 81 mg PO DAILY tablet.ec 08/04/16 Chlorhexidine Gluconate [Peridex -] 15 ml MM BID cup 08/04/16 Ranolazine [Ranexa -] 500 mg PO BID tab 08/04/16 Acetylcysteine 10% [Mucomyst] 200 mg NEB TID 10/02/16 Prednisone [Deltasone -] 20 mg PO DAILY 10/02/16
[2016-10-10 11:28] LABS: INR 3.13 (0.82-1.09); PROTHROMBIN TIME (PATIENT) 35.2 SEC (9.98-11.88)
--- NOTE | 2016-10-10 13:51 | PN ---
Progress Note (short form) - Note Progress Note: Ortho Pt seen and examined s/p left tib IM linda with delayed union incisions well healed, mild ttp, good rom nvi a/p will need bone graft for delayed union and dynamization can be done as outpatient may d/c from ortho pov f/u in the office in 1 week to schedule d/w Dr. Lynne
[2016-10-10 15:42] VITALS: BP 67/34; PULSE 61; TEMP 98.1
--- NOTE | 2016-10-10 16:37 | EKG ---
Test Reason : Blood Pressure : / mmHG Vent. Rate : 051 BPM Atrial Rate : 051 BPM P-R Int : 330 ms QRS Dur : 098 ms QT Int : 504 ms P-R-T Axes : 093 -19 155 degrees QTc Int : 464 ms SINUS BRADYCARDIA WITH 1ST DEGREE A-V BLOCK CANNOT RULE OUT SEPTAL INFARCT (CITED ON OR BEFORE 18-DEC-2015) ABNORMAL ECG WHEN COMPARED WITH ECG OF 03-OCT-2016 10:47, PREMATURE VENTRICULAR COMPLEXES ARE NO LONGER PRESENT T WAVE VARIATION Confirmed by JEN HERNANDEZ MD ([id number]) on 10/10/2016 4:37:45 PM Referred By: Confirmed By:JEN HERNANDEZ MD
--- NOTE | 2016-10-10 16:37 | EKG ---
Test Reason : Blood Pressure : / mmHG Vent. Rate : 070 BPM Atrial Rate : 070 BPM P-R Int : 418 ms QRS Dur : 100 ms QT Int : 430 ms P-R-T Axes : 118 -20 146 degrees QTc Int : 464 ms SINUS RHYTHM WITH 1ST DEGREE A-V BLOCK ANTEROSEPTAL INFARCT (CITED ON OR BEFORE 18-DEC-2015) ABNORMAL ECG WHEN COMPARED WITH ECG OF 09-OCT-2016 05:07, NO SIGNIFICANT CHANGE WAS FOUND Confirmed by JEN HERNANDEZ MD ([id number]) on 10/10/2016 4:37:07 PM Referred By: Pasquale VÁZQUEZ Confirmed By:JEN HERNANDEZ MD
[2016-10-10] MEDS: WARFARIN NA 5 MG TABLET (UD) PO SCH (17:09)
--- NOTE | 2016-10-12 15:40 | CONS ---
DATE OF CONSULTATION: 10/06/2016 ORTHOPEDIC CONSULTATION HISTORY OF PRESENT ILLNESS: Patient is an 81-year-old male, well known to me. He is status post intramedullary rodding of his left tibia/fibula shaft fracture. He had been in the rehabilitation center for quite some time and was discharged recently, now presents back to the hospital for medical conditions. Patient still complaining of some pain in his left leg. PHYSICAL EXAMINATION: Calf is soft, nontender. Good range of motion in the ankle and toes. Incisions are well healed, otherwise neurovascularly intact. X-rays which were reviewed in the hospital show paucity of callus at the level of the fracture, but otherwise good alignment, intact hardware. IMPRESSION: Delayed union of left tibia/fibula shaft fracture. PLAN: Once medical conditions are optimized, patient can be booked for a dynamization of the linda, iliac crest harvesting, and bone grafting of the fracture. I would schedule this once medical condition has optimized either during this admission or as an outpatient. TIFFANY MARTINEZ M.D. [id number]
== END 2016-10-10 18:27 | DRG 310 ==
LOC: JER 09:07 → JERBED 12:49 → J4W 15:26 → J8W 10-09 14:35
PROVIDERS: ADMIT Family Medicine; ATTEND Family Medicine
DX: I48.91 Unspecified atrial fibrillation (principal); I71.2 Thoracic aortic aneurysm, without rupture; E11.9 Type 2 diabetes mellitus without complications; E78.00 Pure hypercholesterolemia, unspecified; E03.9 Hypothyroidism, unspecified; K57.90 Diverticulosis of intestine, part unspecified, without perforation or abscess without bleeding; I25.10 Atherosclerotic heart disease of native coronary artery without angina pectoris; I25.2 Old myocardial infarction; K59.09 Other constipation; D64.9 Anemia, unspecified; R14.0 Abdominal distension (gaseous); I25.5 Ischemic cardiomyopathy; K76.9 Liver disease, unspecified; S82.292G Other fracture of shaft of left tibia, subsequent encounter for closed fracture with delayed healing; S82.492 Other fracture of shaft of left fibula; X58.XXXD Exposure to other specified factors, subsequent encounter; F03.90 Unspecified dementia, unspecified severity, without behavioral disturbance, psychotic disturbance, mood disturbance, and anxiety; Z95.5 Presence of coronary angioplasty implant and graft
CPT/HCPCS: 36415; 70450-TC; 71010-TC; 71020-TC; 73590-TC-LT; 74000-TC; 74020-TC; 74183-TC; 80048; 80053; 81003; 82105; 82550; 82553; 84484; 85025; 85027; 85610; 85730; 86301; 93005; 93010; 94640; 97116-GP; 97163-GP; 99283-25; A9576

== ENCOUNTER → 2016-11-24 | Emergency (ER) | payer OTHER ==
[~2016-11-24] MED LIST: FAMOTIDINE 20 MG/50 ML IVPB 50 ML IVPB ONE; FUROSEMIDE 40 MG/5 ML UNIT-DOSE CUP PO ONE; MAG HYDROX/AL HYDROX/SIMETH 30 ML UNIT-DOSE CUP PO ONE; POTASSIUM CHLORIDE TABS 20 MEQ TABLET.ER (FP) PO ONE; SIMETHICONE 80 MG TAB.CHEW (FP) PO ONE
[2016-11-24 10:13] VITALS: TEMP 97.4; BMI 34.9
--- NOTE | 2016-11-24 10:30 | PDOC ---
History of Present Illness - General History Source: Patient, Family (Daughter ), Old Records Exam Limitations: No Limitations - History of Present Illness Initial Comments: 11/24/16 11:29 The patient is an 81 year old male, with a significant past medical history of multiple comorbidities including hypertension, hyperlipidemia, diabetes, hypothyroidism, diverticulitis, atrial fibrillation, aortic aneurysm (mild ascending aortic aneurysm (4.2 cm) per 01/[address]), coronary artery disease ( stents x2 in 2010; thrombectomy & PCI of proximal and mid LAD with Promus Premier stents and PTCA of D1 on 12/18/2015 at [facility] for acute/subacute anteroseptal [place]), recent left Tib/Fib fracture (07/11/2016) and mild dementia, who presents to the emergency department with midsternal nonradiating chest pressure since yesterday. The patient describes the chest pressure as a tightness. The patient denies nausea, diaphoresis, palpitations or shortness of breath. The patient denies any recent illnesses. The patient denies any trauma. The patients daughter is at the bedside. The patients daughter reports that the patient is regularly followed by a merchandiser retail representative. The patients primary language is Somali, patients daughter is translating. Allergies: None reported. Past Surgical History: Stents x 2; Partial Colectomy; Right Knee Arthroscopy w/ partial medial and lateral meniscectomy (09/01/2015); Left Tibia Fracture s/p lM linda (07/14/2016). Social History: Non smoker. Denies alcohol or drug use. PCP: Dr. Rowan <Mary Grace Falcon - Last Filed: 11/24/16 15:12> <Kameron Rojo - Last Filed: 11/24/16 17:39> - General Chief Complaint: Chest Pain Stated Complaint: CHEST TIGHTNESS Time Seen by Provider: 11/24/16 10:30 Past History <Mary Grace Falcon - Last Filed: 11/24/16 15:12> - Past Medical History Anemia: No Asthma: No Cancer: No Cardiac Disorders: Yes (2 cardiac stents, A.FIB) CVA: No COPD: No CHF: No DVT: No Dementia: Yes Diabetes: Yes (IDDM) Dialysis: No GI Disorders: Yes (DIVERTICULITIS, colectomy) Disorders: No HTN: Yes Hypercholesterolemia: Yes HIV: No Kidney Stones: No Liver Disease: No Psychiatric Problems: No Suicide Attempt (Hx): No Seizures: No Thyroid Disease: Yes (HYPOTHYROIDISM) Lung CA: No - Surgical History Abdominal Surgery: Yes (FOR DIVERTICULITIS; partial colectomy) Appendectomy: No Cardiac Surgery: Yes (STENT X 2) Cholecystectomy: No Gastric Stapling: No GI Surgery: Yes Lung Surgery: No Neurologic Surgery: No Orthopedic Surgery: No - Immunization History Td Vaccination: No TDAP Vaccination: (unknown on last date now will receive on 12/18/2015) Immunization Up to Date: Yes (FLU ) - Psycho/Social/Smoking Cessation Hx Anxiety: No Suicidal Ideation: No Smoking Status: No Smoking History: Never smoked Have you smoked in the past 12 months: No Number of Cigarettes Smoked Daily: 0 Information on smoking cessation initiated: No Hx Alcohol Use: No Drug/Substance Use Hx: No Substance Use Type: None Hx Substance Use Treatment: No <Kameron Rojo - Last Filed: 11/24/16 17:39> - Past Medical History Allergies/Adverse Reactions: Allergies Allergy/AdvReac Type Severity Reaction Status Date / Time No Known Drug Allergies Allergy Verified 11/24/16 10:08 Home Medications: Ambulatory Orders Acetaminophen [Pain Relief] 650 mg PO PRN PRN 07/29/16 Albuterol 2.5/Ipratropium 0.5 [Duoneb -] 1 neb NEB Q4H PRN 07/29/16 Alprazolam [Xanax] 0.25 mg PO BID 07/29/16 Atorvastatin Ca [Lipitor] 80 mg PO HS 07/29/16 Bacitracin - [Bacitracin Topical Ointment -] 1 applic TP DAILY 07/29/16 Carvedilol 3.125 mg PO BID 07/29/16 Cetirizine HCl [Zyrtec -] 10 mg PO DAILY 07/29/16 Duloxetine HCl [Cymbalta] 60 mg PO DAILY 07/29/16 Gabapentin 200 mg PO BID 07/29/16 Lipase/Protease/Amylase [Creon Dr 6,000 Units Capsule] 1 cap PO TID 07/29/16 Methylnaltrexone Palmer [Relistor] 12 mg SQ DAILY 07/29/16 Montelukast Na [Singulair -] 10 mg PO HS 07/29/16 Omeprazole 20 mg PO BID 07/29/16 Polyethylene Glycol 3350 [Miralax 119 gm Btl -] 17 gm PO DAILY 07/29/16 Tamsulosin HCl [Flomax] 0.4 mg PO DAILY 07/29/16 Ticagrelor [Brilinta] 90 mg PO BID 07/29/16 Aspirin Coated [Ecotrin -] 81 mg PO DAILY tablet.ec 08/04/16 Ranolazine [Ranexa -] 500 mg PO BID tab 08/04/16 Insulin (Levemir) [Levemir Vial] 25 units SQ BIDI ml 10/10/16 Spironolactone [Aldactone -] 25 mg PO DAILY #30 tablet 10/10/16 Warfarin Na [Coumadin -] 5 mg PO DAILY@1800 #20 tablet 10/10/16 Oxycodone HCl 5 mg PO Q6H PRN #50 capsule MDD 4 11/24/16 Review of Systems - Review of Systems Able to Perform ROS?: Yes Comments:: 11/24/16 11:03 GENERAL/CONSTITUTIONAL: No fever or chills. No weakness. HEAD, EYES, EARS, NOSE AND THROAT: No change in vision. No ear pain or discharge. No sore throat. CARDIOVASCULAR: +Chest pressure. No shortness of breath. RESPIRATORY: No cough, wheezing, or hemoptysis. GASTROINTESTINAL: No nausea, vomiting, diarrhea or constipation. GENITOURINARY: No dysuria, frequency, or change in urination. MUSCULOSKELETAL: No joint or muscle swelling or pain. No neck or back pain. SKIN: No rash. NEUROLOGIC: No headache, vertigo, loss of consciousness, or change in strength/ sensation. ENDOCRINE: No increased thirst. No abnormal weight change. HEMATOLOGIC/LYMPHATIC: No anemia, easy bleeding, or history of blood clots. ALLERGIC/IMMUNOLOGIC: No hives or skin allergy. <Mary Grace Falcon - Last Filed: 11/24/16 15:12> *Physical Exam - Vital Signs Last Vital Signs Temp Pulse Resp BP Pulse Ox 97.4 F L 65 18 120/62 100 11/24/16 10:08 11/24/16 10:08 11/24/16 10:08 11/24/16 10:08 11/24/16 10:08 - Physical Exam Comments: 11/24/16 11:00 GENERAL: Awake, alert, and fully oriented, in no acute distress. HEAD: No signs of trauma. EYES: PERRLA, EOMI, sclera anicteric, conjunctiva clear. ENT: Auricles normal inspection, hearing grossly normal, nares patent, oropharynx clear without exudates. Moist mucosa. NECK: Normal ROM, supple, no lymphadenopathy, JVD, or masses. LUNGS: Breath sounds equal, clear to auscultation bilaterally. No wheezes, and no crackles. HEART: Distant heart sounds but otherwise unremarkable. Regular rate and rhythm , normal S1 and S2, no murmurs, rubs or gallops. ABDOMEN: Obese abdomen. Soft, nontender, normoactive bowel sounds. No guarding, no rebound. No masses. EXTREMITIES: Normal range of motion, no edema. No clubbing or cyanosis. No cords , erythema, or tenderness. NEUROLOGICAL: Cranial nerves II through XII intact. Normal speech, gait deferred. SKIN: Warm, dry, normal turgor, no rashes or lesions noted. <Mary Grace Falcon - Last Filed: 11/24/16 15:12> - Vital Signs Last Vital Signs Temp Pulse Resp BP Pulse Ox 97.4 F L 65 18 120/62 100 11/24/16 10:08 11/24/16 10:08 11/24/16 10:08 11/24/16 10:08 11/24/16 10:08 <Kameron Rojo - Last Filed: 11/24/16 17:39> ED Treatment Course - LABORATORY CBC & Chemistry Diagram: 11/24/16 10:50 11/24/16 10:50 <Mary Grace Falcon - Last Filed: 11/24/16 15:12> - LABORATORY CBC & Chemistry Diagram: 11/24/16 10:50 11/24/16 10:50 <Kameron Rojo - Last Filed: 11/24/16 17:39> Medical Decision Making - Medical Decision Making 11/24/16 15:12 EXAM: RAD/CHEST X-RAY PORTABLE Reviewed By: Dr. Salvatore Cheney IMPRESSION: No evidence of CHF, pulmonary infiltrates. Right pleural effusion cannot be entirely excluded. <Mary Grace Falcon - Last Filed: 11/24/16 15:12> *DC/Admit/Observation/Transfer - Attestations Scribe Attestion: 11/24/16 10:41 Documentation prepared by Mary Grace Falcon, acting as biomedical field service engineer for Kameron Rojo MD/. <Mary Grace Falcon - Last Filed: 11/24/16 15:12> - Attestations Physician Attestion: 11/24/16 10:30 I, Dr. Kameron Rojo, attest that this document has been prepared under my direction and personally reviewed by me in its entirety. I further attest, that it accurately reflects all work, treatment, procedures and medical decision -making performed by me. <Kameron Rojo - Last Filed: 11/24/16 17:39> Diagnosis at time of Disposition: Atypical chest pain - Discharge Dispostion Disposition: HOME Condition at time of disposition: Good - Referrals Referrals: Rodriguez Rowan MD [Primary Care Provider] - - Patient Instructions Printed Discharge Instructions: DI for Atypical Chest Pain Additional Instructions: Mr Cook- Your second set of enzymes are negative. So this is not your heart. Follow up with your doctors next week. Return to us in the meantime if any problems. Best- Dr. Kamerno Rojo
[2016-11-24 11:42] LABS: BASOPHIL 1.1 % (0-2.0); EOSINOPHIL 8.8 % (0-4.5); MCH 29.5 pg (25.7-33.7); MCHC 33.7 g/dl (32.0-35.9); MEAN CELL VOLUME 87.6 fl (80-96); MEAN PLT VOLUME 8.3 fl (7.5-11.1); NEUTROPHILS 65.3 % (42.8-82.8); PLATELET COUNT 252 K/MM3 (134-434); RDW 16.2 % (11.9-15.9); WHITE BLOOD COUNT 7.7 K/mm3 (4.0-10.0)
[2016-11-24 11:54] LABS: INR 2.2 (0.82-1.09); PROTHROMBIN TIME (PATIENT) 24.6 SEC (9.98-11.88)
[2016-11-24 12:11] LABS: ALBUMIN 2.9 g/dl (3.4-5.0); ANION GAP 8 (8-16); CALCIUM 8.6 mg/dL (8.5-10.1); CO2 29 mmol/L (21-32); CREATININE 1.1 mg/dL (0.7-1.3); GLUCOSE,RANDOM 218 mg/dL (74-106); MAGNESIUM 1.6 mg/dL (1.8-2.4); SGOT/AST 10 U/L (15-37); SGPT/ALT 11 U/L (12-78)
[2016-11-24 12:16] LABS: ALK PHOS 137 U/L (45-117); BILIRUBIN,TOTAL 0.5 mg/dL (0.2-1.0); TOT PROT 6.7 g/dl (6.4-8.2); TROPONIN I 0.02 ng/ml (0.00-0.05)
--- NOTE | 2016-11-24 15:16 | EKG ---
Test Reason : Blood Pressure : / mmHG Vent. Rate : 063 BPM Atrial Rate : 063 BPM P-R Int : 354 ms QRS Dur : 098 ms QT Int : 458 ms P-R-T Axes : -26 -15 218 degrees QTc Int : 468 ms SINUS RHYTHM WITH 1ST DEGREE A-V BLOCK ANTEROSEPTAL INFARCT (CITED ON OR BEFORE 18-DEC-2015) NONSPECIFIC ST ABNORMALITY ABNORMAL ECG WHEN COMPARED WITH ECG OF 09-OCT-2016 09:05, NO SIGNIFICANT CHANGE WAS FOUND Confirmed by MADI RUTH MD ([id number]) on 11/24/2016 3:16:22 PM Referred By: Confirmed By:MADI RUTH MD
[2016-11-24 16:19] LABS: TROPONIN I < 0.02 ng/ml (0.00-0.05)
[2016-11-24 17:04] VITALS: BP 114/64; PULSE 71
== END ==
LOC: JER 10:01
PROC: 3E033GC Introduction of Other Therapeutic Substance into Peripheral Vein, Percutaneous Approach (ICD-10-PCS; principal; 2016-11-24)
DX: R07.89 Other chest pain (principal); I25.2 Old myocardial infarction; I10 Essential (primary) hypertension; I48.91 Unspecified atrial fibrillation; Z79.01 Long term (current) use of anticoagulants; E11.9 Type 2 diabetes mellitus without complications; Z79.4 Long term (current) use of insulin; E78.00 Pure hypercholesterolemia, unspecified; E03.9 Hypothyroidism, unspecified; F03.90 Unspecified dementia, unspecified severity, without behavioral disturbance, psychotic disturbance, mood disturbance, and anxiety; Z95.5 Presence of coronary angioplasty implant and graft; I71.9 Aortic aneurysm of unspecified site, without rupture; Z87.81 Personal history of (healed) traumatic fracture
CPT/HCPCS: 36415; 71010-TC; 80053; 82550; 83690; 83735; 83880; 84484; 85025; 85610; 93005; 93010; 96365; 99283-25

== ENCOUNTER 2017-06-17 23:10 | Inpatient (IN) | payer OTHER ==
[2017-06-17 23:29] VITALS: BMI 35.7
--- NOTE | 2017-06-18 00:36 | PDOC ---
History of Present Illness - General History Source: Patient Exam Limitations: No Limitations - History of Present Illness Initial Comments: 06/18/17 04:34 The patient is a 82 year old male with a significant past medical history of hypertension, hyperlipidemia, diabetes, hypothyroidism, diverticulitis, atrial fibrillation, aortic aneurysm (mild ascending aortic aneurysm (4.2 cm) per 01/[address]), coronary artery disease (stents x2 in 2010; thrombectomy & PCI of proximal and mid LAD with Promus Premier stents and PTCA of D1 on 12/18/2015 at [facility] for acute/subacute anteroseptal [place]), recent left Tib/Fib fracture () and mild dementia, who presents to the ED with oozing from a lesion on his left atkinson this morning. Patient states he has had a similar occurrence 6 months ago, with it clearing up in a week with appliance of bacitracin. Patient also complains of left ankle pain and swelling, along with chills. Patient states he typically experiences chills from a potassium deficiency. Patient is not ambulatory due to the left ankle pain. Allergies: None reported. Past Surgical History: Stents x 2; Partial Colectomy; Right Knee Arthroscopy w/ partial medial and lateral meniscectomy (09/01/2015); Left Tibia Fracture s/p lM linda (07/14/2016). Social History: Non smoker. Denies alcohol or drug use. PCP: Dr. Rowan <Daniel Leach - Last Filed: 06/18/17 04:34> <Edelmira Lloyd - Last Filed: 06/22/17 22:01> - General Chief Complaint: Pain Stated Complaint: ANKLE PAIN Time Seen by Provider: 06/18/17 00:02 Past History <Daniel Leach - Last Filed: 06/18/17 04:34> - Past Medical History Anemia: No Asthma: No Cancer: No Cardiac Disorders: Yes (2 cardiac stents) CVA: No COPD: No CHF: No DVT: No Dementia: Yes Diabetes: Yes (IDDM) Dialysis: No GI Disorders: Yes (DIVERTICULITIS, colectomy) Disorders: No HTN: Yes Hypercholesterolemia: Yes Kidney Stones: No Liver Disease: No Psychiatric Problems: No Seizures: No Thyroid Disease: Yes (HYPOTHYROIDISM) Lung CA: No - Surgical History Abdominal Surgery: Yes (FOR DIVERTICULITIS; partial colectomy) Appendectomy: No Cardiac Surgery: Yes (STENT X 2) Cholecystectomy: No Gastric Stapling: No GI Surgery: Yes Lung Surgery: No Neurologic Surgery: No Orthopedic Surgery: No - Immunization History Td Vaccination: No TDAP Vaccination: (unknown on last date now will receive on 12/18/2015) Immunization Up to Date: Yes (FLU ) - Suicide/Smoking/Psychosocial Hx Smoking Status: No Smoking History: Never smoked Have you smoked in the past 12 months: No Number of Cigarettes Smoked Daily: 0 Information on smoking cessation initiated: No Hx Alcohol Use: No Drug/Substance Use Hx: No Substance Use Type: None Hx Substance Use Treatment: No <Edelmira Lloyd - Last Filed: 06/22/17 22:01> - Past Medical History Allergies/Adverse Reactions: Allergies Allergy/AdvReac Type Severity Reaction Status Date / Time No Known Drug Allergies Allergy Verified 06/17/17 23:26 Home Medications: Ambulatory Orders Acetaminophen [Pain Relief] 650 mg PO PRN PRN 07/29/16 Albuterol 2.5/Ipratropium 0.5 [Duoneb -] 1 neb NEB Q4H PRN 07/29/16 Alprazolam [Xanax] 0.25 mg PO BID 07/29/16 Atorvastatin Ca [Lipitor] 80 mg PO HS 07/29/16 Bacitracin - [Bacitracin Topical Ointment -] 1 applic TP DAILY 07/29/16 Carvedilol 3.125 mg PO BID 07/29/16 Cetirizine HCl [Zyrtec -] 10 mg PO DAILY 07/29/16 Duloxetine HCl [Cymbalta] 60 mg PO DAILY 07/29/16 Gabapentin 200 mg PO BID 07/29/16 Lipase/Protease/Amylase [Creon Dr 6,000 Units Capsule] 1 cap PO TID 07/29/16 Methylnaltrexone [place] [Relistor] 12 mg SQ DAILY 07/29/16 Montelukast Na [Singulair -] 10 mg PO HS 07/29/16 Omeprazole 20 mg PO BID 07/29/16 Polyethylene Glycol 3350 [Miralax 119 gm Btl -] 17 gm PO DAILY 07/29/16 Tamsulosin HCl [Flomax] 0.4 mg PO DAILY 07/29/16 Ticagrelor [Brilinta] 90 mg PO BID 07/29/16 Aspirin Coated [Ecotrin -] 81 mg PO DAILY tablet.ec 08/04/16 Ranolazine [Ranexa -] 500 mg PO BID tab 08/04/16 Insulin (Levemir) [Levemir Vial] 25 units SQ BIDI ml 10/10/16 Spironolactone [Aldactone -] 25 mg PO DAILY #30 tablet 10/10/16 Warfarin Na [Coumadin -] 5 mg PO DAILY@1800 #20 tablet 10/10/16 Acetaminophen [Tylenol .Regular Strength -] 650 mg PO Q4H PRN #0 tablet Albuterol 0.083% Nebulizer Gloria [Ventolin 0.083% Nebulizer Soln -] 1 amp NEB QIDR amp 06/21/17 Insulin (Levemir) [Levemir Vial] 42 units SQ BID@07,22 ml 06/21/17 Insulin Sliding Scale [Novolog Vial Sliding Scale -] 1 vial SQ ACHS units 06/21 Iron Sucrose Injection [Venofer Injection -] 300 mg IVPB DAILY vial 06/21/17 Review of Systems - Review of Systems Able to Perform ROS?: Yes Comments:: 06/18/17 04:34 GENERAL/CONSTITUTIONAL: No fever or chills. No weakness. HEAD, EYES, EARS, NOSE AND THROAT: No change in vision. No ear pain or discharge. No sore throat. CARDIOVASCULAR: No chest pain or shortness of breath. RESPIRATORY: No cough, wheezing, or hemoptysis. GASTROINTESTINAL: No nausea, vomiting, diarrhea or constipation. GENITOURINARY: No dysuria, frequency, or change in urination. MUSCULOSKELETAL: + left ankle swelling. + left lower leg redness. No neck or back pain. SKIN: No rash NEUROLOGIC: No headache, vertigo, loss of consciousness, or change in strength/ sensation. ENDOCRINE: No increased thirst. No abnormal weight change. HEMATOLOGIC/LYMPHATIC: No anemia, easy bleeding, or history of blood clots. ALLERGIC/IMMUNOLOGIC: No hives or skin allergy. <Daniel Leach - Last Filed: 06/18/17 04:34> *Physical Exam - Vital Signs Last Vital Signs Temp Pulse Resp BP Pulse Ox 98.7 F 56 L 18 118/67 97 06/17/17 23:27 06/17/17 23:27 06/17/17 23:27 06/17/17 23:27 06/18/17 00:47 - Physical Exam Comments: 06/18/17 04:35 GENERAL: Awake, alert, and fully oriented, in no acute distress HEAD: No signs of trauma EYES: PERRLA, EOMI, sclera anicteric, conjunctiva clear ENT: Auricles normal inspection, hearing grossly normal, nares patent, oropharynx clear without exudates. Moist mucosa NECK: Normal ROM, supple, no lymphadenopathy, JVD, or masses LUNGS: Breath sounds equal, clear to auscultation bilaterally. No wheezes, and no crackles HEART: Afib. irregularly irregular, normal S1 and S2, no murmurs, rubs or gallops ABDOMEN: Soft, nontender, normoactive bowel sounds. No guarding, no rebound. No masses EXTREMITIES: Right leg normal. Left ankle swollen left lower leg was celulitic and red. Normal range of motion, no edema. NEUROLOGICAL: Cranial nerves II through XII grossly intact. Normal speech, normal gait SKIN: Warm, Dry, normal turgor, no rashes or lesions noted. <Daniel Leach - Last Filed: 06/18/17 04:34> - Vital Signs Last Vital Signs Temp Pulse Resp BP Pulse Ox 98.7 F 56 L 18 118/67 97 06/17/17 23:27 06/17/17 23:27 06/17/17 23:27 06/17/17 23:27 06/17/17 23:27 <Edelmira Lloyd - Last Filed: 06/22/17 22:01> ED Treatment Course - LABORATORY CBC & Chemistry Diagram: 06/18/17 01:10 06/18/17 01:10 - ADDITIONAL ORDERS Additional order review: Laboratory Results 06/18/17 06/18/17 06/18/17 02:10 01:10 01:10 PT with INR 41.30 H INR 3.66 H D Sodium Potassium Chloride Carbon Dioxide Anion Gap BUN Creatinine Creat Clearance w eGFR Random Glucose Lactic Acid 1.7 Calcium Total Bilirubin AST ALT Alkaline Phosphatase C-Reactive Protein Total Protein Albumin Acetone, Qual Negative 06/18/17 06/18/17 01:10 01:10 PT with INR INR Sodium 136 Potassium 4.0 Chloride 101 Carbon Dioxide 23 D Anion Gap 12 BUN 24 H D Creatinine 1.5 H D Creat Clearance w eGFR 44.92 Random Glucose 264 H D Lactic Acid Calcium 8.3 L Total Bilirubin 0.5 AST 7 L D ALT 12 Alkaline Phosphatase 144 H C-Reactive Protein 13.0 H D Total Protein 7.1 Albumin 2.8 L Acetone, Qual 06/18/17 01:10 RBC 4.22 MCV 82.4 MCHC 32.2 RDW 16.6 H MPV 8.8 Neutrophils % 72.8 Lymphocytes % 12.4 Monocytes % 13.3 H Eosinophils % 1.0 D Basophils % 0.5 <Daniel Leach - Last Filed: 06/18/17 04:34> - LABORATORY CBC & Chemistry Diagram: 06/22/17 10:45 06/22/17 10:45 <Edelmira Lloyd - Last Filed: 06/22/17 22:01> Medical Decision Making - Medical Decision Making 06/22/17 21:59 Pt will be admitted for his inability to ambulate and his cellulitis of the lower leg/foot area. Pt teated with abx. Admitted to PMD. WBC elevated mildly at 11+. Dr. Rowan aware of the patient. <Edelmira Lloyd - Last Filed: 06/22/17 22:01> *DC/Admit/Observation/Transfer - Attestations Scribe Attestion: 06/18/17 04:37 Documentation prepared by Daniel Leach, acting as director medical surgical for Edelmira Lloyd MD. <Daniel Leach - Last Filed: 06/18/17 04:34> - Discharge Dispostion Admit: Yes <Edelmira Lloyd - Last Filed: 06/22/17 22:01> Diagnosis at time of Disposition: Ankle pain, Inability to ambulate due to ankle or foot Cellulitis of leg Qualifiers: Laterality: left Qualified Code(s): L03.116 - Cellulitis of left lower limb - Discharge Dispostion Disposition: TRANSFER ACUTE CARE/OTHER HOSP Condition at time of disposition: Guarded
[2017-06-18 01:25] LABS: BASOPHIL 0.5 % (0-2.0); MCH 26.5 pg (25.7-33.7); MCHC 32.2 g/dl (32.0-35.9); MEAN CELL VOLUME 82.4 fl (80-96); MEAN PLT VOLUME 8.8 fl (7.5-11.1); NEUTROPHILS 72.8 % (42.8-82.8); PLATELET COUNT 246 K/MM3 (134-434); RDW 16.6 % (11.9-15.9)
[2017-06-18 02:08] LABS: ALBUMIN 2.8 g/dl (3.4-5.0); ALK PHOS 144 U/L (45-117); ANION GAP 12 (8-16); BILIRUBIN,TOTAL 0.5 mg/dL (0.2-1.0); CALCIUM 8.3 mg/dL (8.5-10.1); CO2 23 mmol/L (21-32); CREATININE 1.5 mg/dL (0.7-1.3); SGOT/AST 7 U/L (15-37); SGPT/ALT 12 U/L (12-78); TOT PROT 7.1 g/dl (6.4-8.2)
[2017-06-18 02:09] LABS: GLUCOSE,RANDOM 264 mg/dL (74-106)
[2017-06-18 02:31] LABS: INR 3.66 (0.82-1.09); PROTHROMBIN TIME (PATIENT) 41.3 SEC (9.98-11.88)
[2017-06-18] MEDS ORDERED: VANCOMYCIN 1,000 MG in DEXTROSE 5%-WATER - 250 ML IVPB ONE (03:33)
[2017-06-18] MEDS ORDERED: CLINDAMYCIN 600MG PREMIX IVPB 50 ML IVPB ONE ×2 (03:34→04:18)
[2017-06-18] MEDS ORDERED: VANCOMYCIN 1 GRAM (PRE-DOCKED) 250 ML IVPB ONE (04:18)
[2017-06-18 04:55] LABS: URINE APPEARANCE CLEAR; URINE BILIRUBIN NEGATIVE (NEGATIVE); URINE BLOOD NEGATIVE (NEGATIVE); URINE COLOR YELLOW; URINE GLUCOSE (UA) 3+ (NEGATIVE); URINE KETONE NEGATIVE (NEGATIVE); URINE LEUK ESTERASE NEGATIVE (NEGATIVE); URINE NITRITE NEGATIVE (NEGATIVE); URINE PROTEIN NEGATIVE (NEGATIVE); URINE UROBILINOGEN NEGATIVE mg/dL (0.2-1.0)
[2017-06-18] MEDS: TAMSULOSIN HCL 0.4 MG CAP.ER.24H (FP) PO SCH (09:04)
--- NOTE | 2017-06-18 09:28 | CON.ORTH ---
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 No: Alzheimer's Cardio/Vascular: Yes: Aneurysm (mild ascending aortic aneurysm (4.2 cm) per chest CT), CAD (stents x2 in 2010; thrombectomy & PCI of proximal and mid LAD with Promus Premier stents and PTCA of D1 on 12/18/15 at [facility] for acute/ subacute anteroseptal [place]), HTN, Hyperlipdemia, Other (ischemic cardiomyopathy ( LVEF 34% per 02/16/16 nuclear study)) Gastrointestinal: Yes: Constipation, Diverticulosis Musculoskeletal: Yes: Other (rib fx's right) Endocrine: Yes: Diabetes Mellitus, Hypothyroidism - Past Surgical History Past Surgical History: Yes: Arthrosocopy (Right knee arthroscopy w/ partial medial and lateral meniscectomy 09/01/15), Colectomy - Alcohol/Substance Use Hx Alcohol Use: No History of Substance Use: reports: None - Smoking History Smoking history: Never smoked Have you smoked in the past 12 months: No Aproximately how many cigarettes per day: 0 - Social History Usual Living Arrangement: Group Home (since last d/c) 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 History of Recent Travel: No Home Medications - Allergies Allergies/Adverse Reactions: Allergies Allergy/AdvReac Type Severity Reaction Status Date / Time No Known Drug Allergies Allergy Verified 06/17/17 23:26 - Home Medications Home Medications: Ambulatory Orders Acetaminophen [Pain Relief] 650 mg PO PRN PRN 07/29/16 Albuterol 2.5/Ipratropium 0.5 [Duoneb -] 1 neb NEB Q4H PRN 07/29/16 Alprazolam [Xanax] 0.25 mg PO BID 07/29/16 Atorvastatin Ca [Lipitor] 80 mg PO HS 07/29/16 Bacitracin - [Bacitracin Topical Ointment -] 1 applic TP DAILY 07/29/16 Carvedilol 3.125 mg PO BID 07/29/16 Cetirizine HCl [Zyrtec -] 10 mg PO DAILY 07/29/16 Duloxetine HCl [Cymbalta] 60 mg PO DAILY 07/29/16 Gabapentin 200 mg PO BID 07/29/16 Lipase/Protease/Amylase [Creon Dr 6,000 Units Capsule] 1 cap PO TID 07/29/16 Methylnaltrexone [place] [Relistor] 12 mg SQ DAILY 07/29/16 Montelukast Na [Singulair -] 10 mg PO HS 07/29/16 Omeprazole 20 mg PO BID 07/29/16 Polyethylene Glycol 3350 [Miralax 119 gm Btl -] 17 gm PO DAILY 07/29/16 Tamsulosin HCl [Flomax] 0.4 mg PO DAILY 07/29/16 Ticagrelor [Brilinta] 90 mg PO BID 07/29/16 Aspirin Coated [Ecotrin -] 81 mg PO DAILY tablet.ec 08/04/16 Ranolazine [Ranexa -] 500 mg PO BID tab 08/04/16 Insulin (Levemir) [Levemir Vial] 25 units SQ BIDI ml 10/10/16 Spironolactone [Aldactone -] 25 mg PO DAILY #30 tablet 10/10/16 Warfarin Na [Coumadin -] 5 mg PO DAILY@1800 #20 tablet 10/10/16 Oxycodone HCl 5 mg PO Q6H PRN #50 capsule MDD 4 11/24/16 Unobtainable 06/18/17 Physical Exam for Ortho Vital Signs: Vital Signs Temperature 98.7 F 06/17/17 23:27 Pulse Rate 59 L 06/18/17 07:43 Respiratory Rate 18 06/18/17 07:43 Blood Pressure 122/65 06/18/17 07:43 O2 Sat by Pulse Oximetry (%) 99 06/18/17 07:43 Labs: INR, PTT INR 3.66 (0.82-1.09) H D 06/18/17 02:10 - Lower Extremity Leg: Yes: Left, Erythema, Pain, Swelling, Tenderness, Other (small wound on anterior aspect of tibia, no active drainage, +ttp, good rom of ankle and knee, nvi) Imaging - Results X-ray: Report Reviewed, Image Reviewed Assessment/Plan 82 year old male with a significant past medical history of hypertension, hyperlipidemia, diabetes, hypothyroidism, diverticulitis, atrial fibrillation, aortic aneurysm (mild ascending aortic aneurysm (4.2 cm) per 01/[address]), coronary artery disease (stents x2 in 2010; thrombectomy & PCI of proximal and mid LAD with Promus Premier stents and PTCA of D1 on 12/18/2015 at [facility] for acute/subacute anteroseptal [place]), recent left Tib/Fib fracture (07/11/2016) and mild dementia, who presented to the ED with oozing from a lesion on his left atkinson this morning. Patient states he has had a similar occurrence 6 months ago, with it clearing up in a week with appliance of bacitracin. Currently no active draining. Pt had been doing well until 2 weeks ago when the pain started worsening. a/p- s/p Left tibia IM linda with non-union ?drainage from anterior wound XRays of tib/fib ordered Cellulitis vs infected hardware vs non-union ID consult will advise after xrays d/w Dr. Lynne
--- NOTE | 2017-06-18 10:20 | HP ---
Admitting History and Physical - Primary Care Physician PCP: Rodriguez Rowan - Admission Chief Complaint: Cellulitis History of Present Illness: The patient is a 82 year old male with a significant past medical history of hypertension, hyperlipidemia, diabetes, hypothyroidism, diverticulitis, atrial fibrillation, aortic aneurysm (mild ascending aortic aneurysm (4.2 cm) per 01/[address]), coronary artery disease (stents x2 in 2010; thrombectomy & PCI of proximal and mid LAD with Promus Premier stents and PTCA of D1 on 12/18/2015 at [facility] for acute/subacute anteroseptal [place]), recent left Tib/Fib fracture () and mild dementia, who presents to the ED with oozing from a lesion on his left atkinson this morning. Patient states he has had a similar occurrence 6 months ago, with it clearing up in a week with appliance of bacitracin. Patient also complains of left ankle pain and swelling, along with chills. History Source: Patient Limitations to Obtaining History: No Limitations - Past Medical History [employer]ER M113: Yes: TIA. No: Alzheimer's Cardiovascular: Yes: Aneurysm (mild ascending aortic aneurysm (4.2 cm) per 01/[address]), CAD (stents x2 in 2010; thrombectomy & PCI of proximal and mid LAD with Promus Premier stents and PTCA of D1 on 12/18/15 at [facility] for acute/ subacute anteroseptal [place]), HTN, Hyperlipdemia, Other (ischemic cardiomyopathy ( LVEF 34% per 02/16/16 nuclear study)) Gastrointestinal: Yes: Constipation, Diverticulosis Heme/Onc: Yes: Anemia Musculoskeletal: Yes: Other (rib fx's right) Endocrine: Yes: Diabetes Mellitus, Hypothyroidism - Past Surgical History Past Surgical History: Yes: Arthrosocopy (Right knee arthroscopy w/ partial medial and lateral meniscectomy 09/01/15), Colectomy - Smoking History Smoking history: Never smoked Have you smoked in the past 12 months: No Aproximately how many cigarettes per day: 0 - Alcohol/Substance Use Hx Alcohol Use: No History of Substance Use: reports: None - Social History 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 History of Recent Travel: No Home Medications - Allergies Allergies/Adverse Reactions: Allergies Allergy/AdvReac Type Severity Reaction Status Date / Time No Known Drug Allergies Allergy Verified 06/17/17 23:26 - Home Medications Home Medications: Ambulatory Orders Acetaminophen [Pain Relief] 650 mg PO PRN PRN 07/29/16 Albuterol 2.5/Ipratropium 0.5 [Duoneb -] 1 neb NEB Q4H PRN 07/29/16 Alprazolam [Xanax] 0.25 mg PO BID 07/29/16 Atorvastatin Ca [Lipitor] 80 mg PO HS 07/29/16 Bacitracin - [Bacitracin Topical Ointment -] 1 applic TP DAILY 07/29/16 Carvedilol 3.125 mg PO BID 07/29/16 Cetirizine HCl [Zyrtec -] 10 mg PO DAILY 07/29/16 Duloxetine HCl [Cymbalta] 60 mg PO DAILY 07/29/16 Gabapentin 200 mg PO BID 07/29/16 Lipase/Protease/Amylase [Creon Dr 6,000 Units Capsule] 1 cap PO TID 07/29/16 Methylnaltrexone [place] [Relistor] 12 mg SQ DAILY 07/29/16 Montelukast Na [Singulair -] 10 mg PO HS 07/29/16 Omeprazole 20 mg PO BID 07/29/16 Polyethylene Glycol 3350 [Miralax 119 gm Btl -] 17 gm PO DAILY 07/29/16 Tamsulosin HCl [Flomax] 0.4 mg PO DAILY 07/29/16 Ticagrelor [Brilinta] 90 mg PO BID 07/29/16 Aspirin Coated [Ecotrin -] 81 mg PO DAILY tablet.ec 08/04/16 Ranolazine [Ranexa -] 500 mg PO BID tab 08/04/16 Insulin (Levemir) [Levemir Vial] 25 units SQ BIDI ml 10/10/16 Spironolactone [Aldactone -] 25 mg PO DAILY #30 tablet 10/10/16 Warfarin Na [Coumadin -] 5 mg PO DAILY@1800 #20 tablet 10/10/16 Oxycodone HCl 5 mg PO Q6H PRN #50 capsule MDD 4 11/24/16 Unobtainable 06/18/17 Review of Systems - Review of Systems Constitutional: reports: Chills Eyes: reports: No Symptoms HENT: reports: No Symptoms Neck: reports: No Symptoms Cardiovascular: reports: No Symptoms Respiratory: reports: No Symptoms Gastrointestinal: reports: No Symptoms Genitourinary: reports: No Symptoms Breasts: reports: No Symptoms Reported Musculoskeletal: reports: Decreased ROM, Extremity Pain, Joint Pain, Joint Swelling Integumentary: reports: No Symptoms Physical Examination Vital Signs: Vital Signs Temperature 98.7 F 06/17/17 23:27 Pulse Rate 59 L 06/18/17 07:43 Respiratory Rate 18 06/18/17 07:43 Blood Pressure 122/65 06/18/17 07:43 O2 Sat by Pulse Oximetry (%) 99 06/18/17 07:43 Constitutional: Yes: Well Nourished, No Distress, Calm Cardiovascular: Yes: Regular Rate and Rhythm Respiratory: Yes: Regular Gastrointestinal: Yes: Normal Bowel Sounds Musculoskeletal: Yes: Joint Swelling (left ankle) Edema: Yes Edema: LLE: 1+ Peripheral Pulses WNL: No Peripheral Pulses: Left Doralis Pedis: 1+ Wound/Incision: Yes: Open to air, Draining (serous fluid), Reddened Neurological: Yes: Alert, Oriented Psychiatric: Yes: Alert, Oriented Imaging - Results Chest X-ray: Report Reviewed X-ray: Report Reviewed (ankle Xray, no fracture or dislocation) Problem List - Problems (1) Cellulitis of leg Assessment/Plan: -IV abx -to be seen by ID -seen by orthopedic -ankle xray negative for any fracture or dislocation -pain management Code(s): L03.119 - CELLULITIS OF UNSPECIFIED PART OF LIMB (2) Inability to ambulate due to ankle or foot Code(s): R26.2 - DIFFICULTY IN WALKING, NOT ELSEWHERE CLASSIFIED (3) Unsteady gait Assessment/Plan: -uses cane and walker at home -will order physical therapy Code(s): R26.81 - UNSTEADINESS ON FEET (4) Atrial fibrillation Assessment/Plan: -paroxysmal, chronic -on warfarin, will hold, INR >3.0 -repeat labs in AM Code(s): I48.91 - UNSPECIFIED ATRIAL FIBRILLATION Qualifiers: Atrial fibrillation type: unspecified Qualified Code(s): I48.91 - Unspecified atrial fibrillation Assessment/Plan see problem list
[2017-06-18] MEDS ORDERED: PT OWN MED DRAWER 7, Y5N ONE ×2 (10:58→17:18)
[2017-06-18] MEDS: RANOLAZINE E.R. 500 MG TABLET (FP) PO SCH ×2 (11:00→21:19)
[2017-06-18] MEDS: PANTOPRAZOLE 20 MG TABLET (FP) PO SCH ×2 (11:00→21:19)
[2017-06-18] MEDS: DULoxetine HCL 30 MG CAPSULE.DR (FP) PO SCH (11:00)
[2017-06-18] MEDS: GABAPENTIN 100 MG CAPSULE (FP) PO SCH ×2 (11:00→21:19)
[2017-06-18] MEDS: ASPIRIN COATED 81 MG TABLET.EC PO SCH (11:00)
[2017-06-18] MEDS: LIPASE/PROTEASE/AMYLASE 6,000 UNIT CAPSULE PO SCH ×3 (11:02→17:21)
[2017-06-18] MEDS: CARVEDILOL 3.125 MG TABLET (FP) PO SCH ×2 (11:02→21:19)
[2017-06-18] MEDS: LORATADINE 10 MG TABLET PO SCH (11:02)
[2017-06-18] MEDS: POLYETHYLENE GLYCOL 3350 119 GM BTL PO SCH (11:05)
[2017-06-18] MEDS: Methylnaltrexone Bromide 12 MG/0.6 ML KIT SQ SCH (11:05)
--- NOTE | 2017-06-18 11:05 | EKG ---
Test Reason : Blood Pressure : / mmHG Vent. Rate : 051 BPM Atrial Rate : 053 BPM P-R Int : 000 ms QRS Dur : 146 ms QT Int : 478 ms P-R-T Axes : -03 -14 263 degrees QTc Int : 440 ms SINUS BRADYCARDIA WITH 1ST DEGREE A-V BLOCK RIGHT BUNDLE BRANCH BLOCK ANTEROSEPTAL INFARCT (CITED ON OR BEFORE 18-DEC-2015) ABNORMAL ECG WHEN COMPARED WITH ECG OF 24-NOV-2016 10:08, RIGHT BUNDLE BRANCH BLOCK IS NOW PRESENT Confirmed by RAFAEL SMITH MD ([id number]) on 06/18/2017 11:04:54 AM Referred By: Confirmed By:RAFAEL SMITH MD
[2017-06-18] MEDS ORDERED: CLINDAMYCIN 300 MG PREMIX IVPB 50 ML IVPB SCH (12:00)
[2017-06-18] MEDS: TICAGRELOR 90 MG TABLET PO SCH ×2 (12:08→21:20)
[2017-06-18] MEDS: ALBUTEROL SO4 0.083% IH SOL 2.5 MG/3 ML VIAL.NEB. NEB SCH ×2 (12:35→17:04)
--- NOTE | 2017-06-18 13:49 | PN ---
Progress Note (short form) - Note Progress Note: ID consult patient is poor historian- pmh DM, HT, CAD s/p fracutb of left tib/fib in 06/2016 s/p shilpa notes 5 month history of leg pain? worsening recently now unable to walk notes area of erythema and induration on anterior aspect of left lower leg no drainage noted elevated inflammatory markers no history of MRSA cellulitis of LLE would get xray of tib/fib ancef for now will d/c Dr Rowan- he has had chronic pain but no erythema of the leg, was seen by ortho has a malunion he has declined repair. erythema of the leg is new Problem List - Problems (1) Cellulitis of leg Code(s): L03.119 - CELLULITIS OF UNSPECIFIED PART OF LIMB Qualifiers: Laterality: left Qualified Code(s): L03.116 - Cellulitis of left lower limb (2) Fracture, tibia and fibula, shaft Code(s): S82.209A - UNSP FRACTURE OF SHAFT OF UNSP TIBIA, INIT FOR CLOS FX S82.409A - UNSP FRACTURE OF SHAFT OF UNSP FIBULA, INIT FOR CLOS FX Qualifiers : Encounter type: initial encounter Fracture type: closed Laterality : left Qualified Code(s): S82.202A - Unspecified fracture of shaft of left tibia, initial encounter for closed fracture; S82.402A - Unspecified fracture of shaft of left fibula, initial encounter for closed fracture
[2017-06-18] MEDS ORDERED: ceFAZolin 2 GRAM PREMIX BAG IVPB SCH (14:00)
[2017-06-18] MEDS ORDERED: DEXTROSE 5%-WATER 100 ML IVPB ONE (17:19)
[2017-06-18] MEDS: CEFTRIAXONE 2 GM in DEXTROSE 5%-WATER 100 ML IVPB SCH (17:22)
[2017-06-18] MEDS: INSULIN DETEMIR 100 UNITS/ML MDV SQ SCH (17:22)
[2017-06-18] MEDS: oxyCODONE HCL 5 MG TABLET PO PRN (17:36)
[2017-06-18] MEDS ORDERED: cefTRIAXone 2 GM/100 ML BAG (PRE-DOCKED) IVPB SCH (18:00)
[2017-06-18] MEDS: ACETAMINOPHEN 325 MG TABLET (FP) PO PRN (20:50)
[2017-06-18] MEDS: ATORVASTATIN CA 80 MG TABLET (FP) PO SCH (21:19)
[2017-06-18] MEDS: MONTELUKAST NA 10 MG TABLET PO SCH (21:20)
[2017-06-19] MEDS: ALBUTEROL SO4 0.083% IH SOL 2.5 MG/3 ML VIAL.NEB. NEB SCH ×4 (00:05→17:31)
[2017-06-19] MEDS: INSULIN DETEMIR 100 UNITS/ML MDV SQ SCH ×2 (06:18→17:58)
[2017-06-19] MEDS ORDERED: INSULIN (NOVOLOG) ASPART 100 UNITS/ML 10ML VIAL ONE ×3 (06:57→17:23)
[2017-06-19] MEDS ORDERED: INSULIN (NOVOLOG) ASPART 100 UNITS/ML 10ML VIAL SQ ONE (07:15)
[2017-06-19 07:27] LABS: BASOPHIL 0.6 % (0-2.0); MCH 26.8 pg (25.7-33.7); MCHC 32.7 g/dl (32.0-35.9); MEAN PLT VOLUME 9.1 fl (7.5-11.1); NEUTROPHILS 76.9 % (42.8-82.8); PLATELET COUNT 201 K/MM3 (134-434); RDW 16.4 % (11.9-15.9); WHITE BLOOD COUNT 8.9 K/mm3 (4.0-10.0)
[2017-06-19 07:39] LABS: INR 3.95 (0.82-1.09); PROTHROMBIN TIME (PATIENT) 44.7 SEC (9.98-11.88)
[2017-06-19] MEDS ORDERED: PT OWN MED DRAWER 7, Y5N ONE ×4 (08:29→18:28)
[2017-06-19 08:31] LABS: ALBUMIN 2.3 g/dl (3.4-5.0); ALK PHOS 110 U/L (45-117); ANION GAP 7 (8-16); BILIRUBIN,TOTAL 0.7 mg/dL (0.2-1.0); CALCIUM 8.1 mg/dL (8.5-10.1); CO2 25 mmol/L (21-32); CREATININE 1.3 mg/dL (0.7-1.3); GLUCOSE,RANDOM 294 mg/dL (74-106); SGOT/AST 5 U/L (15-37); SGPT/ALT 11 U/L (12-78); TOT PROT 6.4 g/dl (6.4-8.2)
[2017-06-19] MEDS: LIPASE/PROTEASE/AMYLASE 6,000 UNIT CAPSULE PO SCH ×3 (08:34→18:02)
[2017-06-19] MEDS: TAMSULOSIN HCL 0.4 MG CAP.ER.24H (FP) PO SCH (08:34)
[2017-06-19] MEDS: DULoxetine HCL 30 MG CAPSULE.DR (FP) PO SCH (10:00)
[2017-06-19] MEDS ORDERED: DEXTROSE 5%-WATER 100 ML IVPB ONE (10:32)
--- NOTE | 2017-06-19 10:32 | PN ---
Progress Note, Physician Chief Complaint: LLE Open Cellulitis History of Present Illness: NAD, in bed -seen by ID -IV abx -Warfarin on hold for INR >3.0 -WBC decreased -H/H mild drop - Current Medication List Current Medications: Active Medications Acetaminophen (Tylenol -) 650 mg PO Q4H PRN PRN Reason: FEVER OR PAIN Last Admin: 06/18/17 20:50 Dose: 650 mg Albuterol Sulfate (Ventolin 0.083% Nebulizer Soln -) 1 amp NEB QIDR [facility] Last Admin: 06/19/17 06:26 Dose: 1 amp Aspirin (Ecotrin -) 81 mg PO DAILY [facility] Last Admin: 06/18/17 11:00 Dose: 81 mg Atorvastatin Calcium (Lipitor -) 80 mg PO HS [facility] Last Admin: 06/18/17 21:19 Dose: 80 mg Carvedilol (Coreg -) 3.125 mg PO BID [facility] Last Admin: 06/18/17 21:19 Dose: 3.125 mg Duloxetine HCl (Cymbalta -) 60 mg PO DAILY [facility] Last Admin: 06/18/17 11:00 Dose: 60 mg Gabapentin (Neurontin -) 200 mg PO BID [facility] Last Admin: 06/18/17 21:19 Dose: 200 mg Ceftriaxone Sodium 2 gm/ (Dextrose) 100 mls @ 200 mls/hr IVPB DAILY [facility] Last Admin: 06/18/17 17:22 Dose: 200 mls/hr Insulin Aspart (Novolog Vial Sliding Scale -) 1 vial SQ ACHS [facility] PRN Reason: Protocol Insulin Detemir (Levemir Vial) 25 units SQ BIDI [facility] Last Admin: 06/19/17 06:18 Dose: 25 units Loratadine (Claritin -) 10 mg PO DAILY [facility] Last Admin: 06/18/17 11:02 Dose: 10 mg Methylnaltrexone [place] (Relistor -) 12 mg SQ DAILY [facility] Last Admin: 06/18/17 11:05 Dose: 12 mg Montelukast Sodium (Singulair -) 10 mg PO HS [facility] Last Admin: 06/18/17 21:20 Dose: 10 mg Oxycodone HCl (Roxicodone -) 5 mg PO Q6H PRN PRN Reason: PAIN LEVEL 6-10 Last Admin: 06/18/17 17:36 Dose: 5 mg Pancrelipase (Creon Dr 6,000 Units Capsule) 1 cap PO TIDCM [facility] Last Admin: 06/19/17 08:34 Dose: 1 cap Pantoprazole Sodium (Protonix -) 20 mg PO BID [facility] Last Admin: 06/18/17 21:19 Dose: 20 mg Polyethylene Glycol (Miralax (For Daily Use) -) 17 gm PO DAILY [facility] Last Admin: 06/18/17 11:05 Dose: 17 gm Ranolazine (Ranexa -) 500 mg PO BID [facility] Last Admin: 06/18/17 21:19 Dose: 500 mg Tamsulosin HCl (Flomax -) 0.4 mg PO DAILY@0830 [facility] Last Admin: 06/19/17 08:34 Dose: 0.4 mg Ticagrelor (Brilinta -) 90 mg PO BID [facility] Last Admin: 06/18/17 21:20 Dose: 90 mg - Objective Vital Signs: Vital Signs Temperature 99.5 F 06/19/17 06:00 Pulse Rate 61 06/19/17 06:00 Respiratory Rate 18 06/19/17 06:00 Blood Pressure 112/51 06/19/17 06:00 O2 Sat by Pulse Oximetry (%) 96 06/18/17 21:00 Constitutional: Yes: Well Nourished, No Distress, Calm Cardiovascular: Yes: Regular Rate and Rhythm Respiratory: Yes: Regular Gastrointestinal: Yes: Normal Bowel Sounds Musculoskeletal: Yes: Muscle Pain (LLE) Edema: Yes Edema: LLE: 1+ Peripheral Pulses WNL: No Peripheral Pulses: Left Doralis Pedis: 1+ Integumentary: Yes: Erythema (LLE) Wound/Incision: Yes: Well Approximated, Open to air Neurological: Yes: Alert, Oriented Psychiatric: Yes: Alert, Oriented Labs: CBC, BMP 06/19/17 06:00 06/19/17 06:00 INR, PTT INR 3.95 (0.82-1.09) H 06/19/17 06:00 Problem List - Problems (1) Cellulitis of leg Assessment/Plan: -responding well to IV abx -seen by ID -seen by orthopedic -ankle xray negative for any fracture or dislocation -pain management Code(s): L03.119 - CELLULITIS OF UNSPECIFIED PART OF LIMB Qualifiers: Laterality: left Qualified Code(s): L03.116 - Cellulitis of left lower limb (2) Inability to ambulate due to ankle or foot Assessment/Plan: Physical therapy Code(s): R26.2 - DIFFICULTY IN WALKING, NOT ELSEWHERE CLASSIFIED (3) Unsteady gait Assessment/Plan: -uses cane and walker at home -physical therapy Code(s): R26.81 - UNSTEADINESS ON FEET (4) Atrial fibrillation Assessment/Plan: -paroxysmal, chronic -on warfarin, will hold, INR >3.0 -repeat labs in AM Code(s): I48.91 - UNSPECIFIED ATRIAL FIBRILLATION Qualifiers: Atrial fibrillation type: unspecified Qualified Code(s): I48.91 - Unspecified atrial fibrillation (5) Anemia Assessment/Plan: -stool ob -iron profile -Vit B 12 Code(s): D64.9 - ANEMIA, UNSPECIFIED (6) Diabetes mellitus, insulin dependent (IDDM), uncontrolled Assessment/Plan: -recheck A1C -on Insulin -Endocrinology consult Code(s): E10.65 - TYPE 1 DIABETES MELLITUS WITH HYPERGLYCEMIA Qualifiers: Diabetes mellitus complication detail: with unspecified neuropathy Assessment/Plan see problem list
[2017-06-19] MEDS: CARVEDILOL 3.125 MG TABLET (FP) PO SCH ×2 (10:34→21:39)
[2017-06-19] MEDS: TICAGRELOR 90 MG TABLET PO SCH ×2 (10:34→21:38)
[2017-06-19] MEDS: RANOLAZINE E.R. 500 MG TABLET (FP) PO SCH ×2 (10:34→21:39)
[2017-06-19] MEDS: LORATADINE 10 MG TABLET PO SCH (10:34)
[2017-06-19] MEDS: CEFTRIAXONE 2 GM in DEXTROSE 5%-WATER 100 ML IVPB SCH (10:35)
[2017-06-19] MEDS: ASPIRIN COATED 81 MG TABLET.EC PO SCH (10:35)
[2017-06-19] MEDS: PANTOPRAZOLE 20 MG TABLET (FP) PO SCH ×2 (10:35→21:39)
[2017-06-19] MEDS: GABAPENTIN 100 MG CAPSULE (FP) PO SCH ×2 (10:35→21:39)
[2017-06-19] MEDS: Methylnaltrexone Bromide 12 MG/0.6 ML KIT SQ SCH (10:36)
--- NOTE | 2017-06-19 10:36 | CONS ---
INFECTIOUS DISEASE CONSULTATION DATE OF CONSULTATION: 06/18/2017 REQUESTING PHYSICIAN: Rodriguez Rowan MD HISTORY OF PRESENT ILLNESS: This is an 82-year-old man with a past medical history of coronary artery disease and diabetes as well as hypertension. In June of 2016, he had a left tibiofibular fracture. At which time, he had rodding of his leg. He reports he was doing well with that leg until about 4 or 5 months ago when he started having chronic pain. I spoke with Dr. Rowan who referred him back to his orthopedist who reported that there was some malunion at the site, and he offered repeat surgery which the patient declined. He apparently had been doing well until recently when he developed erythema from a lesion on his left anterior atkinson. The leg was so painful he could not ambulate, and he came to the emergency room. He had chills at home, but he denied any fever. PAST MEDICAL HISTORY: Notable for hypertension, hyperlipidemia, diabetes, hypothyroidism, diverticulitis, atrial fibrillation, aortic aneurysm, coronary artery disease. He is status post stenting. PAST SURGICAL HISTORY: He has a history of the left tibiofibular fracture as well as he has had a partial colectomy, right knee arthroscopy, and stents in the past. He has a history of diverticulitis in the past and colectomy. SOCIAL HISTORY: There is no history of any cigarette use. ALLERGIES: He has no known drug allergies. MEDICATIONS: Include DuoNebs, Xanax, Lipitor, Coreg, Zyrtec, Cymbalta, gabapentin, Creon, Relistor, Singulair, omeprazole, MiraLAX, tamsulosin, Brilinta, Ecotrin, Ranexa, insulin, Aldactone, Coumadin, and oxycodone. FAMILY HISTORY: Noncontributory. REVIEW OF SYSTEMS: He notes chills. He denies fever. He notes pain which he says has been chronic for the last several months and is worsening in his leg. The erythema is apparently new. PHYSICAL EXAMINATION: Vital Signs: T-max was 100.8. Current temperature is 99.6. Pulse of 70, blood pressure is 113/61, respiratory rate is 18. He is saturating 99% on room air. HEENT: He is normocephalic. Eyes are anicteric. Neck: Supple. Lungs: Clear to auscultation. Heart: Regular rate and rhythm. Abdomen: Soft, nontender. It is obese and protuberant. Extremities: Notable for swelling of his left leg with erythema of the anterior part of his leg noticed with some swelling of the ankle. DIAGNOSTIC DATA: His white count is 11,000, hemoglobin 11.2, platelets are 246. INR is 3.6. BUN and creatinine are 24 and 1.5, with a CRP of 13. Urinalysis has 3+ glucose. X-ray of the ankle was done which shows the linda and the screw but does not show the affected area. Chest x-ray shows cardiomegaly. No evidence of any infiltrates. In summary, this is an 82-year-old man with cellulitis of the left lower extremity with elevated inflammatory markers. No history of methicillin-resistant Staphylococcus aureus. Would get an x-ray of the tibia-fibula, treat with Ancef for now. I spoke with Dr. Rowan who reports that the erythema of the leg is new. Further recommendations to follow based on his cultures. Michelle [id number] MTDD
[2017-06-19] MEDS: POLYETHYLENE GLYCOL 3350 119 GM BTL PO SCH (10:37)
[2017-06-19] MEDS: INSULIN SLIDING SCALE (NOVOLOG) 1 VIAL SQ SCH ×3 (12:01→21:49)
--- NOTE | 2017-06-19 13:42 | PN ---
Progress Note (short form) - Note Progress Note: fevers resolved, pain unchanged no abdominal pain , no dysuria Vital Signs Period Temp Pulse Resp BP Sys/[place] Pulse Ox Last 24 Hr 98 F-100.5 F 61-75 18-20 112-133/51-73 96-99 cor-rrr lungs clear abd soft,nt ext less erythema of the leg CBC, BMP 06/19/17 06:00 06/19/17 06:00 Laboratory Tests 01/11/16 06/19/17 06:00 06:00 C-Reactive Protein 1.1 H Random Vancomycin 22.154 Microbiology 06/18/17 01:10 Blood - Peripheral Venous Blood Culture - Preliminary Group D Strep Or Entero Coccus 06/18/17 01:10 Blood - Peripheral Venous Blood Culture - Preliminary NO GROWTH OBTAINED AFTER 24 HOURS, INCUBATION TO CONTINUE FOR 4 DAYS. a/p enterococcal bacteremia- ?source vancomycin therapeutic repeat blood cultures echo pending ct abd/pelvis to look for source ua negative is anemic- consider GI evaluation, will order stool guaic cardiology consult vanco level in am cellulitis of LLE would get xray of tib/fib will d/c rocephin Problem List - Problems (1) Cellulitis of leg Code(s): L03.119 - CELLULITIS OF UNSPECIFIED PART OF LIMB Qualifiers: Laterality: left Qualified Code(s): L03.116 - Cellulitis of left lower limb (2) Fracture, tibia and fibula, shaft Code(s): S82.209A - UNSP FRACTURE OF SHAFT OF UNSP TIBIA, INIT FOR CLOS FX S82.409A - UNSP FRACTURE OF SHAFT OF UNSP FIBULA, INIT FOR CLOS FX Qualifiers : Encounter type: initial encounter Fracture type: closed Laterality : left Qualified Code(s): S82.202A - Unspecified fracture of shaft of left tibia, initial encounter for closed fracture; S82.402A - Unspecified fracture of shaft of left fibula, initial encounter for closed fracture
--- NOTE | 2017-06-19 15:01 | CON.CARD ---
Consult Consult Specialty:: Cardiology Referred by:: Dr. Rowan Reason for Consultation:: CAD and paroxysmal atrial fibrillation - History of Present Illness Chief Complaint: Left leg pain with a history of CAD and paroxysmal atrial fibrillation History of Present Illness: 82 year old man with a PMHx of hypertension, DM-II, hyperlipidemia, hypothyroidism, diverticulitis, paroxysmal atrial fibrillation on Warfarin, mild ascending aortic aneurysm (4.2 cm) per 01/09/[address], CAD s/p stents x2 in 2010; thrombectomy & PCI of proximal and mid LAD with Promus Premier stents and PTCA of D1 on 12/18/2015 at [facility] for acute/subacute anteroseptal [place], recent (07/11/2016) left Tib/Fib fracture and mild dementia admitted 2016 with left leg pain with evidence of cellulitis.Seen by Ortho and ID. Abx started. Patient has been stable from cardiac stand point. He has no recent chest pain, SOB or palpitation. He is able to ambulate in the house. - History Source History Provided By: Patient, Family Member Limitations to Obtaining History: No Limitations - Past Medical History [employer]: Yes: TIA. No: Alzheimer's Cardio/Vascular: Yes: Aneurysm (mild ascending aortic aneurysm (4.2 cm) per chest CT), CAD (stents x2 in 2010; thrombectomy & PCI of proximal and mid LAD with Promus Premier stents and PTCA of D1 on 12/18/15 at [facility] for acute/ subacute anteroseptal [place]), HTN, Hyperlipdemia, Other (ischemic cardiomyopathy ( LVEF 34% per 02/16/16 nuclear study)) Gastrointestinal: Yes: Constipation, Diverticulosis Musculoskeletal: Yes: Other (rib fx's right) Endocrine: Yes: Diabetes Mellitus, Hypothyroidism - Past Surgical History Past Surgical History: Yes: Arthrosocopy (Right knee arthroscopy w/ partial medial and lateral meniscectomy 09/01/15), Colectomy - Alcohol/Substance Use Hx Alcohol Use: No History of Substance Use: reports: None - Smoking History Smoking history: Never smoked Have you smoked in the past 12 months: No Aproximately how many cigarettes per day: 0 - Social History Usual Living Arrangement: [facility] (since last d/c) 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 History of Recent Travel: No Home Medications - Allergies Allergies/Adverse Reactions: Allergies Allergy/AdvReac Type Severity Reaction Status Date / Time No Known Drug Allergies Allergy Verified 06/17/17 23:26 - Home Medications Home Medications: Ambulatory Orders Acetaminophen [Pain Relief] 650 mg PO PRN PRN 07/29/16 Albuterol 2.5/Ipratropium 0.5 [Duoneb -] 1 neb NEB Q4H PRN 07/29/16 Alprazolam [Xanax] 0.25 mg PO BID 07/29/16 Atorvastatin Ca [Lipitor] 80 mg PO HS 07/29/16 Bacitracin - [Bacitracin Topical Ointment -] 1 applic TP DAILY 07/29/16 Carvedilol 3.125 mg PO BID 07/29/16 Cetirizine HCl [Zyrtec -] 10 mg PO DAILY 07/29/16 Duloxetine HCl [Cymbalta] 60 mg PO DAILY 07/29/16 Gabapentin 200 mg PO BID 07/29/16 Lipase/Protease/Amylase [Creon Dr 6,000 Units Capsule] 1 cap PO TID 07/29/16 Methylnaltrexone [place] [Relistor] 12 mg SQ DAILY 07/29/16 Montelukast Na [Singulair -] 10 mg PO HS 07/29/16 Omeprazole 20 mg PO BID 07/29/16 Polyethylene Glycol 3350 [Miralax 119 gm Btl -] 17 gm PO DAILY 07/29/16 Tamsulosin HCl [Flomax] 0.4 mg PO DAILY 07/29/16 Ticagrelor [Brilinta] 90 mg PO BID 07/29/16 Aspirin Coated [Ecotrin -] 81 mg PO DAILY tablet.ec 08/04/16 Ranolazine [Ranexa -] 500 mg PO BID tab 08/04/16 Insulin (Levemir) [Levemir Vial] 25 units SQ BIDI ml 10/10/16 Spironolactone [Aldactone -] 25 mg PO DAILY #30 tablet 10/10/16 Warfarin Na [Coumadin -] 5 mg PO DAILY@1800 #20 tablet 10/10/16 Oxycodone HCl 5 mg PO Q6H PRN #50 capsule MDD 4 11/24/16 Unobtainable 06/18/17 Review of Systems - Review of Systems Constitutional: reports: Chills Eyes: reports: No Symptoms HENT: reports: No Symptoms Neck: reports: No Symptoms Cardiovascular: reports: No Symptoms Respiratory: reports: No Symptoms Gastrointestinal: reports: No Symptoms Genitourinary: reports: No Symptoms Musculoskeletal: reports: Other (Left leg and ankle pain.) Integumentary: reports: Lesions Neurological: reports: No Symptoms Endocrine: reports: No Symptoms Hematology/Lymphatic: reports: No Symptoms Psychiatric: reports: No Symptoms (2-3) Vital Signs: Vital Signs Temperature 100.0 F H 06/19/17 14:00 Pulse Rate 62 06/19/17 14:00 Respiratory Rate 18 06/19/17 14:00 Blood Pressure 120/65 06/19/17 14:00 O2 Sat by Pulse Oximetry (%) 99 06/19/17 09:00 Constitutional: Yes: Well Nourished, No Distress, Calm Eyes: Yes: WNL, Conjunctiva Clear, EOM Intact HENT: Yes: Atraumatic, Normocephalic Neck: Yes: WNL, Supple, Trachea Midline Respiratory: Yes: Regular, CTA Bilaterally Gastrointestinal: Yes: Normal Bowel Sounds, Soft Cardiovascular: Yes: Regular Rate and Rhythm JVD: No Carotid Bruit: No PMI: Non-Displaced Heart Sounds: Yes: S1, S2 Murmur: Yes: Systolic Murmur, Grade 1 Edema: LLE: 1+, RLE: Trace (erythema and warmths) Peripheral Pulses WNL: Yes Integumentary: Yes: Erythema (leg) Neurological: Yes: Alert, Oriented - Other Data Labs, Other Data: CBC, BMP 06/19/17 06:00 06/19/17 06:00 INR, PTT INR 3.95 (0.82-1.09) H 06/19/17 06:00 Imaging - Results EKG: Image Reviewed Assessment/Plan 82 year old man with a PMHx of hypertension, DM-II, hyperlipidemia, hypothyroidism, diverticulitis, paroxysmal atrial fibrillation on Warfarin, mild ascending aortic aneurysm (4.2 cm) per 01/09/[address], CAD s/p stents x2 in 2010; thrombectomy & PCI of proximal and mid LAD with Promus Premier stents and PTCA of D1 on 12/18/2015 at [facility] for acute/subacute anteroseptal [place], recent (07/11/2016) left Tib/Fib fracture and mild dementia admitted 2016 with left leg pain with evidence of cellulitis.Seen by Ortho and ID. Abx started. Patient has been stable from cardiac stand point without symptoms of angina, CHF or palpitation. Paroxysmal atrial fibrillation: No recurrent palpitation or recurrent atrial fibrillation. ECG showed sinus rhythm with mild bradycardia and first degree AVB. Continue Carvedilol and warfarin with target INR 2-3. CAD and [place] s/p stents x2 in 2010; thrombectomy & PCI of proximal and mid LAD with Promus Premier stents and PTCA of D1 on 12/18/2015 at [facility]. No recurrent angina or symptoms of CHF. Continue Atorvastatin and Carvedilol Please call us for reconsult as needed.
--- NOTE | 2017-06-19 15:13 | CONSULT ---
Consult - text type - Consultation Consultation Note: FULL CONSULT DICTATED IMP: CHRONIC NONUNION LEFT TIBIAL SHAFT FX PLAN: PATIENT NEEDS EXCHANGE RODDING AND BONE GRAFTING BUT FIRST CURRENT INFECTIOUS PROCESS MUST BE DEALT WITH. ONCE OPTIMIZED HE CAN BE FOLLOWED AT [facility] FOR THIS PROCEDURE
[2017-06-19] MEDS ORDERED: INSULIN DETEMIR 100 UNITS/ML MDV SQ ONE (18:29)
[2017-06-19] MEDS: ATORVASTATIN CA 80 MG TABLET (FP) PO SCH (21:38)
[2017-06-19] MEDS: MONTELUKAST NA 10 MG TABLET PO SCH (21:39)
[2017-06-20] MEDS: ALBUTEROL SO4 0.083% IH SOL 2.5 MG/3 ML VIAL.NEB. NEB SCH ×4 (00:28→17:30)
--- NOTE | 2017-06-20 00:45 | CONS ---
DATE OF CONSULTATION: 06/19/2017 HISTORY: Patient is an 82-year-old male, well-known to me. He is status post intramedullary rodding of his left tibia, about a year ago, for a left tibia-fibula fracture. Patient initially did very well, but was developing a delayed union. Multiple attempts to bring the patient to the operating room were constantly postponed due to patient's recurrent medical conditions that kept on delaying the procedure. Patient eventually developed a nonunion of his left distal tibia. Patient was referred to the [facility] for treatment of this nonunion as the patient needed at least exchange rodding, fibula osteotomy, and bone grafting. This was a few months ago. Patient now presents with enterococcal bacteremia and some pain and swelling in his left leg. He is now on broad-spectrum antibiotics. PHYSICAL EXAMINATION: Patient has good range of motion of the knee, ankle, and toes. His calf is soft and nontender. He does have a small erythema area anteriorly over the fracture site, but there is no drainage in this region. No fluctuance. X-rays, which are evaluated, showed a hypertrophic nonunion of the left tibial shaft. 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 PLAN: The bacteremia needs to be dealt with first as the patient needs to be medically cleared and optimized prior to any operative procedure for his left tibia. He will eventually need again a removal of his current linda and exchange rodding with a reamed intramedullary nailing, questionable fibula osteotomy, bone grafting. I recommend that this patient go to a tertiary facility to an orthopedic traumatologist who specializes in taking care of this most difficult and challenging problem. Patient will be optimized medically and then we can arrange for the patient to be followed up with such a specialist. TIFFANY MARTINEZ M.D. [id number]
[2017-06-20] MEDS: INSULIN DETEMIR 100 UNITS/ML MDV SQ SCH ×2 (06:08→22:56)
[2017-06-20] MEDS: INSULIN SLIDING SCALE (NOVOLOG) 1 VIAL SQ SCH ×5 (06:09→21:43)
[2017-06-20 07:37] LABS: BASOPHIL 0.6 % (0-2.0); EOSINOPHIL 3.1 % (0-4.5); MCH 26.7 pg (25.7-33.7); MCHC 32.8 g/dl (32.0-35.9); MEAN CELL VOLUME 81.4 fl (80-96); MEAN PLT VOLUME 9.3 fl (7.5-11.1); NEUTROPHILS 76.1 % (42.8-82.8); PLATELET COUNT 213 K/MM3 (134-434); RDW 16.9 % (11.9-15.9); WHITE BLOOD COUNT 8.4 K/mm3 (4.0-10.0)
[2017-06-20 07:39] LABS: INR 3.14 (0.82-1.09); PROTHROMBIN TIME (PATIENT) 35.4 SEC (9.98-11.88)
[2017-06-20 08:04] LABS: ALBUMIN 2.3 g/dl (3.4-5.0); ALK PHOS 112 U/L (45-117); ANION GAP 11 (8-16); BILIRUBIN,TOTAL 0.7 mg/dL (0.2-1.0); CALCIUM 8.5 mg/dL (8.5-10.1); CO2 23 mmol/L (21-32); CREATININE 1.1 mg/dL (0.7-1.3); GLUCOSE,RANDOM 220 mg/dL (74-106); SGOT/AST 12 U/L (15-37); SGPT/ALT 13 U/L (12-78); TOT PROT 6.4 g/dl (6.4-8.2)
[2017-06-20 08:07] LABS: SERUM IRON 17 ug/dL (38-169); TOTAL IRON BINDING CAPACITY 204 ug/dL (250-450); UIBC 187 ug/dL (111-343)
--- NOTE | 2017-06-20 08:20 | PN ---
Progress Note, Physician - Current Medication List Current Medications: Active Medications Acetaminophen (Tylenol -) 650 mg PO Q4H PRN PRN Reason: FEVER OR PAIN Last Admin: 06/18/17 20:50 Dose: 650 mg Albuterol Sulfate (Ventolin 0.083% Nebulizer Soln -) 1 amp NEB QIDR [facility] Last Admin: 06/20/17 06:56 Dose: 1 amp Aspirin (Ecotrin -) 81 mg PO DAILY [facility] Last Admin: 06/19/17 10:35 Dose: 81 mg Atorvastatin Calcium (Lipitor -) 80 mg PO HS [facility] Last Admin: 06/19/17 21:38 Dose: 80 mg Carvedilol (Coreg -) 3.125 mg PO BID [facility] Last Admin: 06/19/17 21:39 Dose: 3.125 mg Duloxetine HCl (Cymbalta -) 60 mg PO DAILY [facility] Last Admin: 06/19/17 10:00 Dose: 60 mg Gabapentin (Neurontin -) 200 mg PO BID [facility] Last Admin: 06/19/17 21:39 Dose: 200 mg Insulin Aspart (Novolog Vial Sliding Scale -) 1 vial SQ ACHS [facility] PRN Reason: Protocol Last Admin: 06/20/17 06:09 Dose: 2 units Insulin Detemir (Levemir Vial) 25 units SQ BIDI [facility] Last Admin: 06/20/17 06:08 Dose: 25 units Loratadine (Claritin -) 10 mg PO DAILY [facility] Last Admin: 06/19/17 10:34 Dose: 10 mg Methylnaltrexone [place] (Relistor -) 12 mg SQ DAILY [facility] Last Admin: 06/19/17 10:36 Dose: 12 mg Montelukast Sodium (Singulair -) 10 mg PO HS [facility] Last Admin: 06/19/17 21:39 Dose: 10 mg Oxycodone HCl (Roxicodone -) 5 mg PO Q6H PRN PRN Reason: PAIN LEVEL 6-10 Last Admin: 06/18/17 17:36 Dose: 5 mg Pancrelipase (Creon Dr 6,000 Units Capsule) 1 cap PO TIDCM [facility] Last Admin: 06/19/17 18:02 Dose: 1 cap Pantoprazole Sodium (Protonix -) 20 mg PO BID [facility] Last Admin: 06/19/17 21:39 Dose: 20 mg Polyethylene Glycol (Miralax (For Daily Use) -) 17 gm PO DAILY [facility] Last Admin: 06/19/17 10:37 Dose: 17 gm Ranolazine (Ranexa -) 500 mg PO BID [facility] Last Admin: 06/19/17 21:39 Dose: 500 mg Tamsulosin HCl (Flomax -) 0.4 mg PO DAILY@0830 [facility] Last Admin: 06/19/17 08:34 Dose: 0.4 mg Ticagrelor (Brilinta -) 90 mg PO BID [facility] Last Admin: 06/19/17 21:38 Dose: 90 mg - Objective Vital Signs: Vital Signs Temperature 98.1 F 06/20/17 06:00 Pulse Rate 71 06/20/17 06:00 Respiratory Rate 24 06/20/17 06:00 Blood Pressure 106/52 06/20/17 06:00 O2 Sat by Pulse Oximetry (%) 99 06/19/17 21:00 Labs: CBC, BMP 06/20/17 06:00 INR, PTT INR 3.14 (0.82-1.09) H 06/20/17 06:00 Problem List - Problems (1) Bacteremia due to Enterobacter species Assessment/Plan: --IV ABX PER ID --ON VANCO--MONITOR LEVEL --GI --CT Code(s): R78.81 - BACTEREMIA B96.89 - OTH BACTERIAL AGENTS THE CAUSE OF DISEASES CLASSD [id number] Assessment/Plan - Problems (1) Cellulitis of leg Assessment/Plan: -responding well to IV abx -seen by ID -seen by orthopedic -ankle xray negative --no new fracture -pain management Code(s): L03.119 - CELLULITIS OF UNSPECIFIED PART OF LIMB Qualifiers: Laterality: left Qualified Code(s): L03.116 - Cellulitis of left lower limb (2) Inability to ambulate due to ankle or foot Assessment/Plan: Physical therapy Code(s): R26.2 - DIFFICULTY IN WALKING, NOT ELSEWHERE CLASSIFIED (3) Unsteady gait Assessment/Plan: -uses cane and walker at home -physical therapy Code(s): R26.81 - UNSTEADINESS ON FEET (4) Atrial fibrillation Assessment/Plan: -paroxysmal, chronic -on warfarin, will hold, INR >3.0 -repeat labs Code(s): I48.91 - UNSPECIFIED ATRIAL FIBRILLATION Qualifiers: Atrial fibrillation type: unspecified Qualified Code(s): I48.91 - Unspecified atrial fibrillation (5) Anemia Assessment/Plan: -stool ob -iron profile -Vit B 12 -gi consult Code(s): D64.9 - ANEMIA, UNSPECIFIED (6) Diabetes mellitus, insulin dependent (IDDM), uncontrolled Assessment/Plan: -recheck A1C -on Insulin -Endocrinology consult Code(s): E10.65 - TYPE 1 DIABETES MELLITUS WITH HYPERGLYCEMIA Qualifiers: Diabetes mellitus complication detail: with unspecified neuropathy
[2017-06-20] MEDS ORDERED: cefTRIAXone 2 GM/100 ML BAG (PRE-DOCKED) IVPB SCH (09:45)
[2017-06-20] MEDS ORDERED: CEFTRIAXONE 2 GM in DEXTROSE 5%-WATER 100 ML IVPB SCH (10:00)
[2017-06-20] MEDS ORDERED: DEXTROSE 5%-WATER 100 ML IVPB ONE (10:14)
[2017-06-20] MEDS: LIPASE/PROTEASE/AMYLASE 6,000 UNIT CAPSULE PO SCH ×3 (10:20→17:43)
[2017-06-20] MEDS: TAMSULOSIN HCL 0.4 MG CAP.ER.24H (FP) PO SCH (10:21)
[2017-06-20] MEDS: ACETAMINOPHEN 325 MG TABLET (FP) PO PRN ×2 (10:22→20:51)
[2017-06-20] MEDS: oxyCODONE HCL 5 MG TABLET PO PRN (10:23)
[2017-06-20] MEDS: RANOLAZINE E.R. 500 MG TABLET (FP) PO SCH ×2 (10:24→21:01)
[2017-06-20] MEDS: ASPIRIN COATED 81 MG TABLET.EC PO SCH (10:24)
[2017-06-20] MEDS: DULoxetine HCL 30 MG CAPSULE.DR (FP) PO SCH (10:24)
[2017-06-20] MEDS: CARVEDILOL 3.125 MG TABLET (FP) PO SCH ×2 (10:24→21:02)
[2017-06-20] MEDS: LORATADINE 10 MG TABLET PO SCH (10:24)
[2017-06-20] MEDS: GABAPENTIN 100 MG CAPSULE (FP) PO SCH ×2 (10:24→21:01)
[2017-06-20] MEDS: POLYETHYLENE GLYCOL 3350 119 GM BTL PO SCH (10:25)
[2017-06-20] MEDS: PANTOPRAZOLE 20 MG TABLET (FP) PO SCH ×2 (10:25→21:01)
[2017-06-20] MEDS: Methylnaltrexone Bromide 12 MG/0.6 ML KIT SQ SCH (10:29)
[2017-06-20] MEDS: TICAGRELOR 90 MG TABLET PO SCH ×2 (10:29→21:09)
[2017-06-20] MEDS ORDERED: PT OWN MED DRAWER 7, Y5N ONE ×4 (10:29→21:46)
[2017-06-20] MEDS ORDERED: FENTANYL PATCH WASTE TD PRN (11:59)
[2017-06-20] MEDS ORDERED: fentaNYL 12mcg/hr PATCH.TD72 TD SCH (12:00)
[2017-06-20] MEDS: AMPICILLIN - 2 GM in SODIUM CHLORIDE 100 ML IVPB SCH ×4 (12:03→21:02)
[2017-06-20] MEDS: IRON SUCROSE INJECTION 300 MG in SODIUM CHLORIDE 235 ML IVPB SCH (12:39)
--- NOTE | 2017-06-20 14:26 | PN ---
Progress Note (short form) - Note Progress Note: fevers resolved, pain unchanged no abdominal pain , no dysuria Vital Signs Period Temp Pulse Resp BP Sys/[place] Pulse Ox Last 24 Hr 98.1 F-98.8 F 69-73 18-24 106-132/52-75 98-99 cor-rrr llungs clear abd soft,nt ext unchanged, erythema of the anterior lower leg unchanged CBC, BMP 06/20/17 06:00 06/20/17 06:00 Microbiology 06/18/17 01:10 Blood - Peripheral Venous Blood Culture - Preliminary Enterococcus Faecalis 06/18/17 01:10 Blood - Peripheral Venous Blood Culture - Preliminary Group D Strep Or Entero Coccus 06/19/17 06:00 Blood - Peripheral Venous Blood Culture - Preliminary NO GROWTH OBTAINED AFTER 24 HOURS, INCUBATION TO CONTINUE FOR 4 DAYS. 06/19/17 06:00 Blood - Peripheral Venous Blood Culture - Preliminary NO GROWTH OBTAINED AFTER 24 HOURS, INCUBATION TO CONTINUE FOR 4 DAYS. a/p enterococcal bacteremia- ?source amp/rocephin, gent resistant echo pending ct abd/pelvis to look for source ua negative is anemic- consider GI evaluation, will order stool guaic cardiology consult cellulitis of LLE would get xray of tib/fib will d/c rocephin Problem List - Problems (1) Cellulitis of leg Code(s): L03.119 - CELLULITIS OF UNSPECIFIED PART OF LIMB Qualifiers: Laterality: left Qualified Code(s): L03.116 - Cellulitis of left lower limb (2) Fracture, tibia and fibula, shaft Code(s): S82.209A - UNSP FRACTURE OF SHAFT OF UNSP TIBIA, INIT FOR CLOS FX S82.409A - UNSP FRACTURE OF SHAFT OF UNSP FIBULA, INIT FOR CLOS FX Qualifiers : Encounter type: initial encounter Fracture type: closed Laterality : left Qualified Code(s): S82.202A - Unspecified fracture of shaft of left tibia, initial encounter for closed fracture; S82.402A - Unspecified fracture of shaft of left fibula, initial encounter for closed fracture
[2017-06-20] MEDS ORDERED: INSULIN DETEMIR 100 UNITS/ML MDV SQ SCH (16:30)
[2017-06-20] MEDS ORDERED: INSULIN (NOVOLOG) ASPART 100 UNITS/ML 10ML VIAL ONE (18:04)
--- NOTE | 2017-06-20 19:10 | CON.GI ---
Consult Consult Specialty:: GI Referred by:: Dr Rowan Reason for Consultation:: E faecalis bacteremia - History of Present Illness Chief Complaint: Foot infection History of Present Illness: 82 M well-known to our service with chronic narcotic-induced constipation HTN, HLD, recent anteroseptal OR, CAD with 2 stents, now admitted with LLE lesion with infection. Also c/o tactile fever with chills and rigors at home. I am called to address E faecalis septicemia. He is chronically anemic and has normocytic anemia with Hgb 10 which is his baseline. He denies abd pain, no N/V or diarrhea. 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 No: Alzheimer's Cardio/Vascular: Yes: Aneurysm (mild ascending aortic aneurysm (4.2 cm) per chest CT), CAD (stents x2 in 2010; thrombectomy & PCI of proximal and mid LAD with Promus Premier stents and PTCA of D1 on 12/18/15 at [facility] for acute/ subacute anteroseptal OR), HTN, Hyperlipdemia, Other (ischemic cardiomyopathy ( LVEF 34% per 02/16/16 nuclear study)) Gastrointestinal: Yes: Constipation, Diverticulosis Musculoskeletal: Yes: Other (rib fx's right) Endocrine: Yes: Diabetes Mellitus, Hypothyroidism - Past Surgical History Past Surgical History: Yes: Arthrosocopy (Right knee arthroscopy w/ partial medial and lateral meniscectomy 09/01/15), Colectomy - Alcohol/Substance Use Hx Alcohol Use: No History of Substance Use: reports: None - Smoking History Smoking history: Never smoked Have you smoked in the past 12 months: No Aproximately how many cigarettes per day: 0 - Social History Usual Living Arrangement: [facility] (since last d/c) 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 History of Recent Travel: No Home Medications - Allergies Allergies/Adverse Reactions: Allergies Allergy/AdvReac Type Severity Reaction Status Date / Time No Known Drug Allergies Allergy Verified 06/17/17 23:26 - Home Medications Home Medications: Ambulatory Orders Acetaminophen [Pain Relief] 650 mg PO PRN PRN 07/29/16 Albuterol 2.5/Ipratropium 0.5 [Duoneb -] 1 neb NEB Q4H PRN 07/29/16 Alprazolam [Xanax] 0.25 mg PO BID 07/29/16 Atorvastatin Ca [Lipitor] 80 mg PO HS 07/29/16 Bacitracin - [Bacitracin Topical Ointment -] 1 applic TP DAILY 07/29/16 Carvedilol 3.125 mg PO BID 07/29/16 Cetirizine HCl [Zyrtec -] 10 mg PO DAILY 07/29/16 Duloxetine HCl [Cymbalta] 60 mg PO DAILY 07/29/16 Gabapentin 200 mg PO BID 07/29/16 Lipase/Protease/Amylase [Creon Dr 6,000 Units Capsule] 1 cap PO TID 07/29/16 Methylnaltrexone [place] [Relistor] 12 mg SQ DAILY 07/29/16 Montelukast Na [Singulair -] 10 mg PO HS 07/29/16 Omeprazole 20 mg PO BID 07/29/16 Polyethylene Glycol 3350 [Miralax 119 gm Btl -] 17 gm PO DAILY 07/29/16 Tamsulosin HCl [Flomax] 0.4 mg PO DAILY 07/29/16 Ticagrelor [Brilinta] 90 mg PO BID 07/29/16 Aspirin Coated [Ecotrin -] 81 mg PO DAILY tablet.ec 08/04/16 Ranolazine [Ranexa -] 500 mg PO BID tab 08/04/16 Insulin (Levemir) [Levemir Vial] 25 units SQ BIDI ml 10/10/16 Spironolactone [Aldactone -] 25 mg PO DAILY #30 tablet 10/10/16 Warfarin Na [Coumadin -] 5 mg PO DAILY@1800 #20 tablet 10/10/16 Oxycodone HCl 5 mg PO Q6H PRN #50 capsule MDD 4 11/24/16 Unobtainable 06/18/17 Physical Exam-GI Vital Signs: Vital Signs Temperature 99.5 F 06/20/17 17:46 Pulse Rate 69 06/20/17 17:46 Respiratory Rate 20 06/20/17 17:46 Blood Pressure 122/67 06/20/17 17:46 O2 Sat by Pulse Oximetry (%) 98 06/20/17 09:00 Constitutional: Yes: Well Nourished (states he is feeling better.) Gastrointestinal Inspection: Yes: Distention ...Auscultate: Yes: Hypoactive Bowel Sounds ...Palpate: No: Tenderness ...Percussion: Yes: Tympanitic Labs: CBC, BMP 06/20/17 06:00 06/20/17 06:00 INR, PTT INR 3.14 (0.82-1.09) H 06/20/17 06:00 Imaging - Results Cat Scan: Report Reviewed (no acute process, moderate stool throughout colon) Assessment/Plan E faecalis sepsis. While it is a bowel organism. it can be isolated in several different places, in this case most likely from infection on leg. Rec culture wound. Not a good candidate for colonoscopy due to advanced age, multiple co-morbid conditions. CT negative for acute pathology. Normal colon 5 years ago Ab rx per iD cardiac diet
[2017-06-20] MEDS: ATORVASTATIN CA 80 MG TABLET (FP) PO SCH (21:01)
[2017-06-20] MEDS: MONTELUKAST NA 10 MG TABLET PO SCH (21:01)
[2017-06-20] MEDS: CEFTRIAXONE 2 GM in SODIUM CHLORIDE 100 ML IVPB SCH (21:51)
--- NOTE | 2017-06-20 22:27 | CONSULT ---
Consult Consult Specialty:: encocrine Referred by:: robi bradford np Reason for Consultation:: iddm hyperglycemia - History of Present Illness Chief Complaint: left leg pain and swelling History of Present Illness: 82 year old male with a significant past medical history of hypertension, hyperlipidemia, diabetes, hypothyroidism, diverticulitis, atrial fibrillation, aortic aneurysm (mild ascending aortic aneurysm (4.2 cm) per 01/[address]), coronary artery disease (stents x2 in 2010; thrombectomy & PCI of proximal and mid LAD with Promus Premier stents and PTCA of D1 on 12/18/2015 at [facility] for acute/subacute anteroseptal SD), recent left Tib/Fib fracture (07/11/2016) and mild dementia, who presents to the ED with oozing from a lesion on his left atkinson this morning. Patient states he has had a similar occurrence 6 months ago, with it clearing up in a week with appliance of bacitracin.has frequent high blood sugars despite taking more insulin has dependent on higher doses of short acting insulin and fears low sugars. - History Source History Provided By: Patient - Past Medical History TRUCKER: Yes: TIA. No: Alzheimer's Cardio/Vascular: Yes: Aneurysm (mild ascending aortic aneurysm (4.2 cm) per chest CT), CAD (stents x2 in 2010; thrombectomy & PCI of proximal and mid LAD with Promus Premier stents and PTCA of D1 on 12/18/15 at [facility] for acute/ subacute anteroseptal SD), HTN, Hyperlipdemia, Other (ischemic cardiomyopathy ( LVEF 34% per 02/16/16 nuclear study)) Gastrointestinal: Yes: Constipation, Diverticulosis Musculoskeletal: Yes: Other (rib fx's right) Endocrine: Yes: Diabetes Mellitus, Hypothyroidism - Past Surgical History Past Surgical History: Yes: Arthrosocopy (Right knee arthroscopy w/ partial medial and lateral meniscectomy 09/01/15), Colectomy - Alcohol/Substance Use Hx Alcohol Use: No History of Substance Use: reports: None - Smoking History Smoking history: Never smoked Have you smoked in the past 12 months: No Aproximately how many cigarettes per day: 0 - Social History Usual Living Arrangement: [facility] (since last d/c) 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 History of Recent Travel: No Home Medications - Allergies Allergies/Adverse Reactions: Allergies Allergy/AdvReac Type Severity Reaction Status Date / Time No Known Drug Allergies Allergy Verified 06/17/17 23:26 - Home Medications Home Medications: Ambulatory Orders Acetaminophen [Pain Relief] 650 mg PO PRN PRN 07/29/16 Albuterol 2.5/Ipratropium 0.5 [Duoneb -] 1 neb NEB Q4H PRN 07/29/16 Alprazolam [Xanax] 0.25 mg PO BID 07/29/16 Atorvastatin Ca [Lipitor] 80 mg PO HS 07/29/16 Bacitracin - [Bacitracin Topical Ointment -] 1 applic TP DAILY 07/29/16 Carvedilol 3.125 mg PO BID 07/29/16 Cetirizine HCl [Zyrtec -] 10 mg PO DAILY 07/29/16 Duloxetine HCl [Cymbalta] 60 mg PO DAILY 07/29/16 Gabapentin 200 mg PO BID 07/29/16 Lipase/Protease/Amylase [Creon Dr 6,000 Units Capsule] 1 cap PO TID 07/29/16 Methylnaltrexone [place] [Relistor] 12 mg SQ DAILY 07/29/16 Montelukast Na [Singulair -] 10 mg PO HS 07/29/16 Omeprazole 20 mg PO BID 07/29/16 Polyethylene Glycol 3350 [Miralax 119 gm Btl -] 17 gm PO DAILY 07/29/16 Tamsulosin HCl [Flomax] 0.4 mg PO DAILY 07/29/16 Ticagrelor [Brilinta] 90 mg PO BID 07/29/16 Aspirin Coated [Ecotrin -] 81 mg PO DAILY tablet.ec 08/04/16 Ranolazine [Ranexa -] 500 mg PO BID tab 08/04/16 Insulin (Levemir) [Levemir Vial] 25 units SQ BIDI ml 10/10/16 Spironolactone [Aldactone -] 25 mg PO DAILY #30 tablet 10/10/16 Warfarin Na [Coumadin -] 5 mg PO DAILY@1800 #20 tablet 10/10/16 Oxycodone HCl 5 mg PO Q6H PRN #50 capsule MDD 4 11/24/16 Unobtainable 06/18/17 Review of Systems - Review of Systems Constitutional: reports: Lethargy, Weakness Eyes: reports: Blurred Vision HENT: reports: No Symptoms Neck: reports: No Symptoms Cardiovascular: reports: Palpitations, Shortness of Breath Respiratory: reports: Exercise Intolerance, SOB on Exertion Gastrointestinal: reports: Bloating, Constipation Genitourinary: reports: No Symptoms Breasts: reports: No Symptoms Reported Musculoskeletal: reports: Extremity Pain, Joint Swelling, Muscle Pain, Muscle Cramps, Muscle Weakness Integumentary: reports: Change in Color Neurological: reports: No Symptoms Endocrine: reports: Unexplained Weight Gain Hematology/Lymphatic: reports: No Symptoms Physical Exam Vital Signs: Vital Signs Temperature 99.5 F 06/20/17 17:46 Pulse Rate 69 06/20/17 17:46 Respiratory Rate 20 06/20/17 17:46 Blood Pressure 122/67 06/20/17 17:46 O2 Sat by Pulse Oximetry (%) 98 06/20/17 21:00 Constitutional: Yes: Anxious Eyes: Yes: EOM Intact HENT: Yes: Normocephalic Neck: Yes: Trachea Midline Cardiovascular: Yes: Regular Rate and Rhythm Respiratory: Yes: CTA Bilaterally Gastrointestinal: Yes: Normal Bowel Sounds ...Rectal Exam: Yes: Deferred Renal/: Yes: WNL Breast(s): Yes: WNL Musculoskeletal: Yes: Joint Stiffness, Joint Swelling, Muscle Pain, Muscle Weakness Extremities: Yes: WNL, Delayed Capillary Refill Edema: Yes Edema: LLE: 3+ Integumentary: Yes: WNL Wound/Incision: Yes: Clean/Dry Labs: CBC, BMP 06/20/17 06:00 06/20/17 06:00 Problem List - Problems (1) ASHD (arteriosclerotic heart disease) Code(s): I25.10 - ATHSCL HEART DISEASE OF [place] CORONARY ARTERY W/O ANG PCTRS (2) Ankle pain Code(s): M25.579 - PAIN IN UNSPECIFIED ANKLE AND JOINTS OF UNSPECIFIED FOOT (3) Bacteremia due to Enterobacter species Code(s): R78.81 - BACTEREMIA B96.89 - OTH BACTERIAL AGENTS THE CAUSE OF DISEASES CLASSD [id number] (4) CAD in [place] artery Code(s): I25.10 - ATHSCL HEART DISEASE OF [place] CORONARY ARTERY W/O ANG PCTRS (5) Cellulitis of leg Code(s): L03.119 - CELLULITIS OF UNSPECIFIED PART OF LIMB Qualifiers: Laterality: left Qualified Code(s): L03.116 - Cellulitis of left lower limb (6) 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 Code(s): E11.311 - TYPE 2 DIABETES W UNSP DIABETIC RETINOPATHY W MACULAR EDEMA Assessment/Plan Current Active Problems ASHD (arteriosclerotic heart disease) (Acute) Anemia (Acute) Ankle pain (Acute) Bacteremia due to Enterobacter species (Acute) CAD in [place] artery (Acute) Cellulitis of leg (Acute) Chest pain (Acute) Encephalopathy (Acute) Hemoglobin drop (Acute) Inability to ambulate due to ankle or foot (Acute) Pleural effusion (Acute) Unsteady gait (Acute) Abnormal Lab Results 06/19/17 06/20/17 06/20/17 11:05 06:00 06:00 RBC 3.73 L Hgb 10.0 L Hct 30.3 L RDW 16.9 H Monocytes % 10.9 H PT with INR 35.40 H INR 3.14 H Sodium BUN Random Glucose Iron 17 L TIBC 204 L Iron Saturation 8 L AST C-Reactive Protein Albumin 06/20/17 06/20/17 06:00 06:00 RBC Hgb Hct RDW Monocytes % PT with INR INR Sodium 133 L BUN 21 H Random Glucose 220 H D Iron TIBC Iron Saturation AST 12 L D C-Reactive Protein 17.7 H D Albumin 2.3 L Laboratory Results - last 24 hr 06/19/17 06/19/17 06/20/17 11:05 21:46 06:00 WBC RBC Hgb Hct MCV MCH MCHC RDW Plt Count MPV Neutrophils % Lymphocytes % Monocytes % Eosinophils % Basophils % PT with INR INR Sodium Potassium Chloride Carbon Dioxide Anion Gap BUN Creatinine Creat Clearance w eGFR POC Glucometer 303 Random Glucose Calcium Iron 17 L TIBC 204 L Iron Saturation 8 L Total Bilirubin AST ALT Alkaline Phosphatase C-Reactive Protein Total Protein Albumin Random Vancomycin 21.789 06/20/17 06/20/17 06/20/17 06:00 06:00 06:00 WBC 8.4 RBC 3.73 L Hgb 10.0 L Hct 30.3 L MCV 81.4 MCH 26.7 MCHC 32.8 RDW 16.9 H Plt Count 213 MPV 9.3 Neutrophils % 76.1 Lymphocytes % 9.3 Monocytes % 10.9 H Eosinophils % 3.1 Basophils % 0.6 PT with INR 35.40 H INR 3.14 H Sodium 133 L Potassium 3.9 Chloride 99 Carbon Dioxide 23 Anion Gap 11 BUN 21 H Creatinine 1.1 Creat Clearance w eGFR > 60 POC Glucometer Random Glucose 220 H D Calcium 8.5 Iron TIBC Iron Saturation Total Bilirubin 0.7 AST 12 L D ALT 13 Alkaline Phosphatase 112 C-Reactive Protein Total Protein 6.4 Albumin 2.3 L Random Vancomycin 06/20/17 06/20/17 06/20/17 06:00 06:07 11:35 WBC RBC Hgb Hct MCV MCH MCHC RDW Plt Count MPV Neutrophils % Lymphocytes % Monocytes % Eosinophils % Basophils % PT with INR INR Sodium Potassium Chloride Carbon Dioxide Anion Gap BUN Creatinine Creat Clearance w eGFR POC Glucometer 227 307 Random Glucose Calcium Iron TIBC Iron Saturation Total Bilirubin AST ALT Alkaline Phosphatase C-Reactive Protein 17.7 H D Total Protein Albumin Random Vancomycin 06/20/17 06/20/17 16:58 21:27 WBC RBC Hgb Hct MCV MCH MCHC RDW Plt Count MPV Neutrophils % Lymphocytes % Monocytes % Eosinophils % Basophils % PT with INR INR Sodium Potassium Chloride Carbon Dioxide Anion Gap BUN Creatinine Creat Clearance w eGFR POC Glucometer 284 261 Random Glucose Calcium Iron TIBC Iron Saturation Total Bilirubin AST ALT Alkaline Phosphatase C-Reactive Protein Total Protein Albumin Random Vancomycin plan: bgm qid novolog insulin doses levemir 37 units bid ck hb a1c
[2017-06-21] MEDS: ALBUTEROL SO4 0.083% IH SOL 2.5 MG/3 ML VIAL.NEB. NEB SCH ×5 (00:05→23:10)
[2017-06-21] MEDS: AMPICILLIN - 2 GM in SODIUM CHLORIDE 100 ML IVPB SCH ×2 (01:30→05:24)
[2017-06-21] MEDS: INSULIN DETEMIR 100 UNITS/ML MDV SQ SCH ×2 (06:12→22:46)
[2017-06-21] MEDS: INSULIN SLIDING SCALE (NOVOLOG) 1 VIAL SQ SCH ×4 (06:13→22:45)
--- NOTE | 2017-06-21 09:35 | PN ---
Progress Note, Physician Chief Complaint: ID Febrile despite antibiotic and the patient complains of LLE LUE pain - Current Medication List Current Medications: Active Medications Acetaminophen (Tylenol -) 650 mg PO Q4H PRN PRN Reason: FEVER OR PAIN Last Admin: 06/20/17 20:51 Dose: 650 mg Albuterol Sulfate (Ventolin 0.083% Nebulizer Soln -) 1 amp NEB QIDR [facility] Last Admin: 06/21/17 07:09 Dose: 1 amp Aspirin (Ecotrin -) 81 mg PO DAILY [facility] Last Admin: 06/20/17 10:24 Dose: 81 mg Atorvastatin Calcium (Lipitor -) 80 mg PO HS [facility] Last Admin: 06/20/17 21:01 Dose: 80 mg Carvedilol (Coreg -) 3.125 mg PO BID [facility] Last Admin: 06/20/17 21:02 Dose: 3.125 mg Duloxetine HCl (Cymbalta -) 60 mg PO DAILY [facility] Last Admin: 06/20/17 10:24 Dose: 60 mg Fentanyl (Duragesic 12mcg Patch -) 1 patch TD Q72H [facility] Stop: 06/27/17 11:59 Last Admin: 06/20/17 12:38 Dose: 1 patch Gabapentin (Neurontin -) 200 mg PO BID [facility] Last Admin: 06/20/17 21:01 Dose: 200 mg Ampicillin Sodium 2 gm/ Sodium (Chloride) 100 mls @ 200 mls/hr IVPB Q4H-IV [facility] Last Admin: 06/21/17 05:24 Dose: 200 mls/hr Iron Sucrose 300 mg/ Sodium (Chloride) 250 mls @ 166.667 mls/hr IVPB DAILY [facility] Stop: 06/22/17 11:29 Last Admin: 06/20/17 12:39 Dose: 166.667 mls/hr Ceftriaxone Sodium 2 gm/ (Sodium Chloride) 100 mls @ 200 mls/hr IVPB BID [facility] Last Admin: 06/20/17 21:51 Dose: 200 mls/hr Insulin Aspart (Novolog Vial Sliding Scale -) 1 vial SQ ACHS [facility] PRN Reason: Protocol Last Admin: 06/21/17 06:13 Dose: 9 units Insulin Detemir (Levemir Vial) 42 units SQ BID@,22 [facility] Last Admin: 06/21/17 06:12 Dose: 42 units Loratadine (Claritin -) 10 mg PO DAILY [facility] Last Admin: 06/20/17 10:24 Dose: 10 mg Methylnaltrexone [place] (Relistor -) 12 mg SQ DAILY [facility] Last Admin: 06/20/17 10:29 Dose: 12 mg Miscellaneous (Duragesic Patch Waste) 1 each TD PRN PRN PRN Reason: PAIN Montelukast Sodium (Singulair -) 10 mg PO HS [facility] Last Admin: 06/20/17 21:01 Dose: 10 mg Oxycodone HCl (Roxicodone -) 5 mg PO Q6H PRN PRN Reason: PAIN LEVEL 6-10 Last Admin: 06/20/17 10:23 Dose: 5 mg Pancrelipase (Creon Dr 6,000 Units Capsule) 1 cap PO TIDCM [facility] Last Admin: 06/20/17 17:43 Dose: 1 cap Pantoprazole Sodium (Protonix -) 20 mg PO BID [facility] Last Admin: 06/20/17 21:01 Dose: 20 mg Polyethylene Glycol (Miralax (For Daily Use) -) 17 gm PO DAILY [facility] Last Admin: 06/20/17 10:25 Dose: 17 gm Ranolazine (Ranexa -) 500 mg PO BID [facility] Last Admin: 06/20/17 21:01 Dose: 500 mg Tamsulosin HCl (Flomax -) 0.4 mg PO DAILY@0830 [facility] Last Admin: 06/20/17 10:21 Dose: 0.4 mg Ticagrelor (Brilinta -) 90 mg PO BID [facility] Last Admin: 06/20/17 21:09 Dose: 90 mg - Objective Vital Signs: Vital Signs Temperature 100.4 F H 06/21/17 06:38 Pulse Rate 68 06/21/17 06:38 Respiratory Rate 20 06/21/17 06:38 Blood Pressure 140/66 06/21/17 06:38 O2 Sat by Pulse Oximetry (%) 98 06/20/17 21:00 Constitutional: Yes: No Distress Cardiovascular: Yes: Regular Rate and Rhythm, S1, S2. No: Murmur Respiratory: Yes: WNL, Regular, CTA Bilaterally Gastrointestinal: Yes: WNL, Normal Bowel Sounds, Soft. No: Tenderness Extremities: Yes: Other (Left leg diffusely swollen HOT to touch Inguinal tenderness Pretiibal area fluctuant with multiple eschars no drainage however Very tender) Labs: CBC, BMP 06/20/17 06:00 06/20/17 06:00 INR, PTT INR 3.14 (0.82-1.09) H 06/20/17 06:00 Assessment/Plan Microbiology 06/18/17 01:10 Blood - Peripheral Venous Blood Culture - Final Enterococcus Faecalis 06/18/17 01:10 Blood - Peripheral Venous Blood Culture - Final Enterococcus Faecalis 06/19/17 06:00 Blood - Peripheral Venous Blood Culture - Preliminary NO GROWTH OBTAINED AFTER 48 HOURS, INCUBATION TO CONTINUE FOR 3 DAYS. 06/19/17 06:00 Blood - Peripheral Venous Blood Culture - Preliminary NO GROWTH OBTAINED AFTER 48 HOURS, INCUBATION TO CONTINUE FOR 3 DAYS. 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
[2017-06-21] MEDS: LORATADINE 10 MG TABLET PO SCH (09:53)
[2017-06-21] MEDS: RANOLAZINE E.R. 500 MG TABLET (FP) PO SCH ×2 (09:53→22:42)
[2017-06-21] MEDS: GABAPENTIN 100 MG CAPSULE (FP) PO SCH ×2 (09:53→22:42)
[2017-06-21] MEDS: TAMSULOSIN HCL 0.4 MG CAP.ER.24H (FP) PO SCH (09:53)
[2017-06-21] MEDS: ASPIRIN COATED 81 MG TABLET.EC PO SCH (09:54)
[2017-06-21] MEDS: CARVEDILOL 3.125 MG TABLET (FP) PO SCH ×2 (09:54→22:42)
[2017-06-21] MEDS: DULoxetine HCL 30 MG CAPSULE.DR (FP) PO SCH (09:54)
[2017-06-21] MEDS: PANTOPRAZOLE 20 MG TABLET (FP) PO SCH ×2 (09:54→22:42)
[2017-06-21] MEDS: CEFTRIAXONE 2 GM in SODIUM CHLORIDE 100 ML IVPB SCH ×2 (09:55→22:41)
[2017-06-21] MEDS: LIPASE/PROTEASE/AMYLASE 6,000 UNIT CAPSULE PO SCH ×3 (09:55→17:34)
[2017-06-21] MEDS: TICAGRELOR 90 MG TABLET PO SCH ×2 (09:56→22:49)
[2017-06-21] MEDS: IRON SUCROSE INJECTION 300 MG in SODIUM CHLORIDE 235 ML IVPB SCH (09:57)
[2017-06-21] MEDS: Methylnaltrexone Bromide 12 MG/0.6 ML KIT SQ SCH (09:57)
[2017-06-21] MEDS ORDERED: VANCOMYCIN 1,500 MG in DEXTROSE 5%-WATER - 500 ML IVPB ONE (10:00)
--- NOTE | 2017-06-21 10:05 | PN ---
Progress Note (short form) - Note Progress Note: Pt seen and examined. The area of most severe pain is the left knee, not the left tibia. He cannot bear weight because of the pain. PE Left knee looks ok: no swelling, erythema, or obvious signs of infection. Left knee is very tender to palpation, most laterally. Left tibia midshaft, there is an area of erythema, about 4cm, round. + tender Although there is a small eschar, there is no active drainage, I was unable to express any fluid or pus. pt is able to raise the left knee/leg against resistance with only mild pain. 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 Additional orthopedic surgery likely (IM linda exchange, possibly 2 stage, possible bone graft, etc)
--- NOTE | 2017-06-21 10:41 | PN ---
Progress Note, Physician Chief Complaint: LLE Open Cellulitis History of Present Illness: NAD, in bed -seen by ID -IV abx -Warfarin on hold for INR >3.0 -WBC decreased -H/H mild drop seen by ID and ortho, recommended transfer to [facility] for surgical intervention. - Current Medication List Current Medications: Active Medications Acetaminophen (Tylenol -) 650 mg PO Q4H PRN PRN Reason: FEVER OR PAIN Last Admin: 06/20/17 20:51 Dose: 650 mg Albuterol Sulfate (Ventolin 0.083% Nebulizer Soln -) 1 amp NEB QIDR [facility] Last Admin: 06/21/17 07:09 Dose: 1 amp Aspirin (Ecotrin -) 81 mg PO DAILY [facility] Last Admin: 06/21/17 09:54 Dose: 81 mg Atorvastatin Calcium (Lipitor -) 80 mg PO HS [facility] Last Admin: 06/20/17 21:01 Dose: 80 mg Carvedilol (Coreg -) 3.125 mg PO BID [facility] Last Admin: 06/21/17 09:54 Dose: 3.125 mg Duloxetine HCl (Cymbalta -) 60 mg PO DAILY [facility] Last Admin: 06/21/17 09:54 Dose: 60 mg Fentanyl (Duragesic 12mcg Patch -) 1 patch TD Q72H [facility] Stop: 06/27/17 11:59 Last Admin: 06/20/17 12:38 Dose: 1 patch Gabapentin (Neurontin -) 200 mg PO BID [facility] Last Admin: 06/21/17 09:53 Dose: 200 mg Iron Sucrose 300 mg/ Sodium (Chloride) 250 mls @ 166.667 mls/hr IVPB DAILY [facility] Stop: 06/22/17 11:29 Last Admin: 06/21/17 09:57 Dose: 166.667 mls/hr Ceftriaxone Sodium 2 gm/ (Sodium Chloride) 100 mls @ 200 mls/hr IVPB BID [facility] Last Admin: 06/21/17 09:55 Dose: 200 mls/hr Vancomycin HCl 1,500 mg/ (Dextrose) 500 mls @ 250 mls/hr IVPB ONCE ONE PRN Reason: Protocol Stop: 06/21/17 11:59 Insulin Aspart (Novolog Vial Sliding Scale -) 1 vial SQ ACHS [facility] PRN Reason: Protocol Last Admin: 06/21/17 06:13 Dose: 9 units Insulin Detemir (Levemir Vial) 42 units SQ BID@07,22 [facility] Last Admin: 06/21/17 06:12 Dose: 42 units Loratadine (Claritin -) 10 mg PO DAILY [facility] Last Admin: 06/21/17 09:53 Dose: 10 mg Methylnaltrexone [place] (Relistor -) 12 mg SQ DAILY [facility] Last Admin: 06/21/17 09:57 Dose: 12 mg Miscellaneous (Duragesic Patch Waste) 1 each TD PRN PRN PRN Reason: PAIN Montelukast Sodium (Singulair -) 10 mg PO HS [facility] Last Admin: 06/20/17 21:01 Dose: 10 mg Oxycodone HCl (Roxicodone -) 5 mg PO Q6H PRN PRN Reason: PAIN LEVEL 6-10 Last Admin: 06/20/17 10:23 Dose: 5 mg Pancrelipase (Creon Dr 6,000 Units Capsule) 1 cap PO TIDCM [facility] Last Admin: 06/21/17 09:55 Dose: 1 cap Pantoprazole Sodium (Protonix -) 20 mg PO BID [facility] Last Admin: 06/21/17 09:54 Dose: 20 mg Polyethylene Glycol (Miralax (For Daily Use) -) 17 gm PO DAILY [facility] Last Admin: 06/20/17 10:25 Dose: 17 gm Ranolazine (Ranexa -) 500 mg PO BID [facility] Last Admin: 06/21/17 09:53 Dose: 500 mg Tamsulosin HCl (Flomax -) 0.4 mg PO DAILY@0830 [facility] Last Admin: 06/21/17 09:53 Dose: 0.4 mg Ticagrelor (Brilinta -) 90 mg PO BID [facility] Last Admin: 06/21/17 09:56 Dose: 90 mg - Objective Vital Signs: Vital Signs Temperature 100.4 F H 06/21/17 06:38 Pulse Rate 68 06/21/17 06:38 Respiratory Rate 20 06/21/17 06:38 Blood Pressure 140/66 06/21/17 06:38 O2 Sat by Pulse Oximetry (%) 98 06/20/17 21:00 Constitutional: Yes: Well Nourished, No Distress, Calm Cardiovascular: Yes: Regular Rate and Rhythm Respiratory: Yes: Regular Gastrointestinal: Yes: Normal Bowel Sounds Musculoskeletal: Yes: Other (left knee pain) Extremities: Yes: Erythema Edema: Yes Edema: LLE: 2+ Peripheral Pulses WNL: Yes Integumentary: Yes: Erythema Wound/Incision: Yes: Clean/Dry, Well Approximated (4 mm), Open to air Neurological: Yes: Alert, Confusion Psychiatric: Yes: Alert Labs: CBC, BMP 06/20/17 06:00 06/20/17 06:00 INR, PTT INR 3.14 (0.82-1.09) H 06/20/17 06:00 Problem List - Problems (1) Cellulitis of leg Assessment/Plan: -IV abx -was febrile -seen by ID -vancomycin added -seen by orthopedic -ankle xray negative for any fracture or dislocation -pain management Code(s): L03.119 - CELLULITIS OF UNSPECIFIED PART OF LIMB Qualifiers: Laterality: left Qualified Code(s): L03.116 - Cellulitis of left lower limb (2) Inability to ambulate due to ankle or foot Assessment/Plan: Physical therapy Code(s): R26.2 - DIFFICULTY IN WALKING, NOT ELSEWHERE CLASSIFIED (3) Unsteady gait Assessment/Plan: -uses cane and walker at home -physical therapy Code(s): R26.81 - UNSTEADINESS ON FEET (4) Atrial fibrillation Assessment/Plan: -paroxysmal, chronic -on warfarin, will hold, INR >3.0 -repeat labs in AM Code(s): I48.91 - UNSPECIFIED ATRIAL FIBRILLATION Qualifiers: Atrial fibrillation type: unspecified Qualified Code(s): I48.91 - Unspecified atrial fibrillation (5) Anemia Assessment/Plan: -stool ob pending -Venofer Code(s): D64.9 - ANEMIA, UNSPECIFIED (6) Diabetes mellitus, insulin dependent (IDDM), uncontrolled Assessment/Plan: -recheck A1C -on Insulin -Endocrinology consult Code(s): E10.65 - TYPE 1 DIABETES MELLITUS WITH HYPERGLYCEMIA Qualifiers: Diabetes mellitus complication detail: with unspecified neuropathy Assessment/Plan Patient had intramedullary rodding of his left tibia 1 year ago s/p fracture. He developed delayed union of tibial shaft, was unable to reschedule repeat procedure due to patient's medical condition. Patient has been referred to [facility] orthopedic trauma division in the past. He has been seen by orthopedist and ID, who recommend that patient get transferred to [facility] for further intervention. Paperwork for transfer signed. Spoke to patient about it, he seems a little confused, Would hold fentanyl and oxycodone. Tried reaching on the number provided, no voicemail set up, unable to leave message. Called 's cell phone, left message to call back with my cell number. His daughter listed in demographics is . 12N- called the office and spoke to Dr Rowan about transfer
[2017-06-21 11:42] LABS: BASOPHIL 0.5 % (0-2.0); EOSINOPHIL 2.4 % (0-4.5); MCHC 33.1 g/dl (32.0-35.9); MEAN CELL VOLUME 81.6 fl (80-96); MEAN PLT VOLUME 8.2 fl (7.5-11.1); PLATELET COUNT 214 K/MM3 (134-434); RDW 16.5 % (11.9-15.9); WHITE BLOOD COUNT 8.6 K/mm3 (4.0-10.0)
[2017-06-21] MEDS: POLYETHYLENE GLYCOL 3350 119 GM BTL PO SCH (11:54)
[2017-06-21 11:57] LABS: INR 2.06 (0.82-1.09)
[2017-06-21 12:12] LABS: ALBUMIN 2.1 g/dl (3.4-5.0); ANION GAP 8 (8-16); BILIRUBIN,TOTAL 0.4 mg/dL (0.2-1.0); CALCIUM 7.9 mg/dL (8.5-10.1); CO2 24 mmol/L (21-32); CREATININE 1.3 mg/dL (0.7-1.3); GLUCOSE,RANDOM 256 mg/dL (74-106); SGOT/AST 21 U/L (15-37); SGPT/ALT 23 U/L (12-78); TOT PROT 6.3 g/dl (6.4-8.2)
[2017-06-21 12:13] LABS: ALK PHOS 119 U/L (45-117)
--- NOTE | 2017-06-21 14:25 | DS ---
Physical Examination Vital Signs: Vital Signs Temperature 100.4 F H 06/21/17 06:38 Pulse Rate 68 06/21/17 06:38 Respiratory Rate 20 06/21/17 06:38 Blood Pressure 140/66 06/21/17 06:38 O2 Sat by Pulse Oximetry (%) 98 06/20/17 21:00 Constitutional: Yes: Well Nourished, No Distress, Calm Cardiovascular: Yes: Regular Rate and Rhythm Respiratory: Yes: Regular Gastrointestinal: Yes: Normal Bowel Sounds Musculoskeletal: Yes: Other (Left knee pain) Extremities: Yes: Erythema, Other (LLE Edema with dry open wound, erythema and hot to touch) Edema: Yes (LLE) Peripheral Pulses WNL: Yes Integumentary: No: Other (Open cellulitis LLE) Wound/Incision: Yes: Open to air Neurological: Yes: Alert, Confusion Psychiatric: Yes: Alert Labs: CBC, BMP 06/21/17 11:30 06/21/17 11:30 Discharge Summary Reason For Visit: CELLULITIS OF LEG ANKLE PAIN Current Active Problems ASHD (arteriosclerotic heart disease) (Acute) Anemia (Acute) Ankle pain (Acute) Bacteremia due to Enterobacter species (Acute) CAD in [place] artery (Acute) Cellulitis of leg (Acute) Chest pain (Acute) Encephalopathy (Acute) Hemoglobin drop (Acute) Inability to ambulate due to ankle or foot (Acute) Pleural effusion (Acute) 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 (Acute) Unsteady gait (Acute) Hospital Course: The patient is a 82 year old male with a significant past medical history of hypertension, hyperlipidemia, diabetes, hypothyroidism, diverticulitis, atrial fibrillation, aortic aneurysm (mild ascending aortic aneurysm (4.2 cm) per 01/[address]), coronary artery disease (stents x2 in 2010; thrombectomy & PCI of proximal and mid LAD with Promus Premier stents and PTCA of D1 on 12/18/2015 at [facility] for acute/subacute anteroseptal [place]), recent left Tib/Fib fracture () and mild dementia, who presents to the ED with oozing from a lesion on his left [place] this morning. Patient states he has had a similar occurrence 6 months ago, with it clearing up in a week with appliance of bacitracin. Patient also complains of left ankle pain and swelling, along with chills. Upon his admission, His LLE xray showed mid shaft left tibial non union of the old fracture, showed leukocytosis with low grade temps. He was evaluated by ID and orthopedist, was started on IV abx. Orthopedist recommended linda exchange to be done at a tertiary care center. Condition: Guarded - Instructions Referrals: Rodriguez Rowan MD [Primary Care Provider] - - Home Medications Comprehensive Discharge Medication List: Ambulatory Orders Acetaminophen [Pain Relief] 650 mg PO PRN PRN 07/29/16 Albuterol 2.5/Ipratropium 0.5 [Duoneb -] 1 neb NEB Q4H PRN 07/29/16 Alprazolam [Xanax] 0.25 mg PO BID 07/29/16 Atorvastatin Ca [Lipitor] 80 mg PO HS 07/29/16 Bacitracin - [Bacitracin Topical Ointment -] 1 applic TP DAILY 07/29/16 Carvedilol 3.125 mg PO BID 07/29/16 Cetirizine HCl [Zyrtec -] 10 mg PO DAILY 07/29/16 Duloxetine HCl [Cymbalta] 60 mg PO DAILY 07/29/16 Gabapentin 200 mg PO BID 07/29/16 Lipase/Protease/Amylase [Creon Dr 6,000 Units Capsule] 1 cap PO TID 07/29/16 Methylnaltrexone [place] [Relistor] 12 mg SQ DAILY 07/29/16 Montelukast Na [Singulair -] 10 mg PO HS 07/29/16 Omeprazole 20 mg PO BID 07/29/16 Polyethylene Glycol 3350 [Miralax 119 gm Btl -] 17 gm PO DAILY 07/29/16 Tamsulosin HCl [Flomax] 0.4 mg PO DAILY 07/29/16 Ticagrelor [Brilinta] 90 mg PO BID 07/29/16 Aspirin Coated [Ecotrin -] 81 mg PO DAILY tablet.ec 08/04/16 Ranolazine [Ranexa -] 500 mg PO BID tab 08/04/16 Insulin (Levemir) [Levemir Vial] 25 units SQ BIDI ml 10/10/16 Spironolactone [Aldactone -] 25 mg PO DAILY #30 tablet 10/10/16 Warfarin Na [Coumadin -] 5 mg PO DAILY@1800 #20 tablet 10/10/16 Oxycodone HCl 5 mg PO Q6H PRN #50 capsule MDD 4 11/24/16 Unobtainable 06/18/17
[2017-06-21] MEDS ORDERED: PT OWN MED DRAWER 7, Y5N ONE ×2 (16:08→22:49)
[2017-06-21] MEDS: AMPICILLIN - 100 ML IVPB SCH ×3 (16:20→21:24)
[2017-06-21] MEDS: MONTELUKAST NA 10 MG TABLET PO SCH (22:42)
[2017-06-21] MEDS: ATORVASTATIN CA 80 MG TABLET (FP) PO SCH (22:42)
[2017-06-22] MEDS: AMPICILLIN - 100 ML IVPB SCH ×2 (01:40→05:22)
[2017-06-22] MEDS: ACETAMINOPHEN 325 MG TABLET (FP) PO PRN ×2 (02:31→16:56)
[2017-06-22] MEDS ORDERED: PT OWN MED DRAWER 7, Y5N ONE (04:24)
[2017-06-22] MEDS: ALBUTEROL SO4 0.083% IH SOL 2.5 MG/3 ML VIAL.NEB. NEB SCH ×3 (06:24→17:15)
[2017-06-22] MEDS: INSULIN DETEMIR 100 UNITS/ML MDV SQ SCH (06:35)
[2017-06-22] MEDS: INSULIN SLIDING SCALE (NOVOLOG) 1 VIAL SQ SCH ×3 (06:37→17:14)
--- NOTE | 2017-06-22 08:12 | PN ---
Progress Note, Physician Chief Complaint: ID Vancomycin Amp Ceftriaxone NAD Transfer pending - Current Medication List Current Medications: Active Medications Acetaminophen (Tylenol -) 650 mg PO Q4H PRN PRN Reason: FEVER OR PAIN Last Admin: 06/22/17 02:31 Dose: 650 mg Albuterol Sulfate (Ventolin 0.083% Nebulizer Soln -) 1 amp NEB QIDR [facility] Last Admin: 06/22/17 06:24 Dose: 1 amp Aspirin (Ecotrin -) 81 mg PO DAILY [facility] Last Admin: 06/21/17 09:54 Dose: 81 mg Atorvastatin Calcium (Lipitor -) 80 mg PO HS [facility] Last Admin: 06/21/17 22:42 Dose: 80 mg Carvedilol (Coreg -) 3.125 mg PO BID [facility] Last Admin: 06/21/17 22:42 Dose: 3.125 mg Duloxetine HCl (Cymbalta -) 60 mg PO DAILY [facility] Last Admin: 06/21/17 09:54 Dose: 60 mg Fentanyl (Duragesic 12mcg Patch -) 1 patch TD Q72H [facility] Stop: 06/27/17 11:59 Last Admin: 06/20/17 12:38 Dose: 1 patch Gabapentin (Neurontin -) 200 mg PO BID [facility] Last Admin: 06/21/17 22:42 Dose: 200 mg Iron Sucrose 300 mg/ Sodium (Chloride) 250 mls @ 166.667 mls/hr IVPB DAILY [facility] Stop: 06/22/17 11:29 Last Admin: 06/21/17 09:57 Dose: 166.667 mls/hr Ceftriaxone Sodium 2 gm/ (Sodium Chloride) 100 mls @ 200 mls/hr IVPB BID [facility] Last Admin: 06/21/17 22:41 Dose: 200 mls/hr Ampicillin Sodium (Ampicillin 2 Gm Ivpb (Pre-Docked)) 100 mls @ 200 mls/hr IVPB Q4H [facility] Last Admin: 06/22/17 05:22 Dose: 200 mls/hr Insulin Aspart (Novolog Vial Sliding Scale -) 1 vial SQ ACHS [facility] PRN Reason: Protocol Last Admin: 06/22/17 06:37 Dose: Not Given Insulin Detemir (Levemir Vial) 42 units SQ BID@07,22 [facility] Last Admin: 06/22/17 06:35 Dose: 42 units Loratadine (Claritin -) 10 mg PO DAILY [facility] Last Admin: 06/21/17 09:53 Dose: 10 mg Methylnaltrexone [place] (Relistor -) 12 mg SQ DAILY [facility] Last Admin: 06/21/17 09:57 Dose: 12 mg Montelukast Sodium (Singulair -) 10 mg PO HS [facility] Last Admin: 06/21/17 22:42 Dose: 10 mg Pancrelipase (Creon Dr 6,000 Units Capsule) 1 cap PO TIDCM [facility] Last Admin: 06/21/17 17:34 Dose: 1 cap Pantoprazole Sodium (Protonix -) 20 mg PO BID [facility] Last Admin: 06/21/17 22:42 Dose: 20 mg Polyethylene Glycol (Miralax (For Daily Use) -) 17 gm PO DAILY [facility] Last Admin: 06/21/17 11:54 Dose: 17 gm Ranolazine (Ranexa -) 500 mg PO BID [facility] Last Admin: 06/21/17 22:42 Dose: 500 mg Tamsulosin HCl (Flomax -) 0.4 mg PO DAILY@0830 [facility] Last Admin: 06/21/17 09:53 Dose: 0.4 mg Ticagrelor (Brilinta -) 90 mg PO BID [facility] Last Admin: 06/21/17 22:49 Dose: 90 mg - Objective Vital Signs: Vital Signs Temperature 98.1 F 06/22/17 07:00 Pulse Rate 66 06/22/17 07:00 Respiratory Rate 20 06/22/17 07:00 Blood Pressure 113/62 06/22/17 07:00 O2 Sat by Pulse Oximetry (%) 98 06/20/17 21:00 Constitutional: Yes: Obese Neck: Yes: WNL, Supple Cardiovascular: Yes: Regular Rate and Rhythm, S1, S2. No: Murmur Respiratory: Yes: WNL, Regular, CTA Bilaterally Gastrointestinal: Yes: WNL, Normal Bowel Sounds, Soft. 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 06/19/17 06:00 Blood - Peripheral Venous Blood Culture - Preliminary Laboratory Tests 06/20/17 06/21/17 06/21/17 06:00 11:30 11:30 WBC 8.6 Hgb 9.7 L Hct 29.4 L Plt Count 214 BUN 20 H Creatinine 1.3 Creat Clearance w eGFR 52.98 AST 21 D ALT 23 D C-Reactive Protein 17.7 H D Assessment Infected LLE hardware Enterococcal bacteremia Diabetes Mellitus Plan Antibiotic as ordered Transfer for anticipated surgery nonunion fracture with infected hardware Vanco added for additional gram positive coverage Hussein
--- NOTE | 2017-06-22 09:51 | PN ---
Progress Note (short form) - Note Progress Note: Ortho Pt seen and examined to be transferred to [facility] for definitive treatment d/w Dr. Lynne
--- NOTE | 2017-06-22 10:18 | PN ---
Progress Note, Physician Chief Complaint: LLE Open Cellulitis History of Present Illness: NAD, in bed -seen by ID -IV abx -Warfarin on hold for surgical intervention -on Heparin 5000 u BID -WBC decreased -H/H mild drop seen by ID and ortho, awaiting transfer to [facility] for surgical intervention. - Current Medication List Current Medications: Active Medications Acetaminophen (Tylenol -) 650 mg PO Q4H PRN PRN Reason: FEVER OR PAIN Last Admin: 06/22/17 02:31 Dose: 650 mg Albuterol Sulfate (Ventolin 0.083% Nebulizer Soln -) 1 amp NEB QIDR [facility] Last Admin: 06/22/17 06:24 Dose: 1 amp Aspirin (Ecotrin -) 81 mg PO DAILY [facility] Last Admin: 06/21/17 09:54 Dose: 81 mg Atorvastatin Calcium (Lipitor -) 80 mg PO HS [facility] Last Admin: 06/21/17 22:42 Dose: 80 mg Carvedilol (Coreg -) 3.125 mg PO BID [facility] Last Admin: 06/21/17 22:42 Dose: 3.125 mg Duloxetine HCl (Cymbalta -) 60 mg PO DAILY [facility] Last Admin: 06/21/17 09:54 Dose: 60 mg Fentanyl (Duragesic 12mcg Patch -) 1 patch TD Q72H [facility] Stop: 06/27/17 11:59 Last Admin: 06/20/17 12:38 Dose: 1 patch Gabapentin (Neurontin -) 200 mg PO BID [facility] Last Admin: 06/21/17 22:42 Dose: 200 mg Iron Sucrose 300 mg/ Sodium (Chloride) 250 mls @ 166.667 mls/hr IVPB DAILY [facility] Stop: 06/22/17 11:29 Last Admin: 06/21/17 09:57 Dose: 166.667 mls/hr Ceftriaxone Sodium 2 gm/ (Sodium Chloride) 100 mls @ 200 mls/hr IVPB BID [facility] Last Admin: 06/21/17 22:41 Dose: 200 mls/hr Ampicillin Sodium 2 gm/ Sodium (Chloride) 100 mls @ 200 mls/hr IVPB Q4H [facility] Insulin Aspart (Novolog Vial Sliding Scale -) 1 vial SQ ACHS [facility] PRN Reason: Protocol Last Admin: 06/22/17 06:37 Dose: Not Given Insulin Detemir (Levemir Vial) 42 units SQ BID@ [facility] Last Admin: 06/22/17 06:35 Dose: 42 units Loratadine (Claritin -) 10 mg PO DAILY [facility] Last Admin: 06/21/17 09:53 Dose: 10 mg Methylnaltrexone [place] (Relistor -) 12 mg SQ DAILY [facility] Last Admin: 06/21/17 09:57 Dose: 12 mg Montelukast Sodium (Singulair -) 10 mg PO HS [facility] Last Admin: 06/21/17 22:42 Dose: 10 mg Pancrelipase (Creon Dr 6,000 Units Capsule) 1 cap PO TIDCM [facility] Last Admin: 06/21/17 17:34 Dose: 1 cap Pantoprazole Sodium (Protonix -) 20 mg PO BID [facility] Last Admin: 06/21/17 22:42 Dose: 20 mg Polyethylene Glycol (Miralax (For Daily Use) -) 17 gm PO DAILY [facility] Last Admin: 06/21/17 11:54 Dose: 17 gm Ranolazine (Ranexa -) 500 mg PO BID [facility] Last Admin: 06/21/17 22:42 Dose: 500 mg Tamsulosin HCl (Flomax -) 0.4 mg PO DAILY@0830 [facility] Last Admin: 06/21/17 09:53 Dose: 0.4 mg Ticagrelor (Brilinta -) 90 mg PO BID [facility] Last Admin: 06/21/17 22:49 Dose: 90 mg - Objective Vital Signs: Vital Signs Temperature 98.1 F 06/22/17 07:00 Pulse Rate 66 06/22/17 07:00 Respiratory Rate 20 06/22/17 07:00 Blood Pressure 113/62 06/22/17 07:00 O2 Sat by Pulse Oximetry (%) 98 06/20/17 21:00 Constitutional: Yes: Well Nourished, No Distress, Calm Cardiovascular: Yes: Regular Rate and Rhythm Respiratory: Yes: Regular Extremities: Yes: Erythema (LLE) Edema: Yes (LLE) Peripheral Pulses WNL: Yes Integumentary: Yes: Erythema, Other (open cellulitis LLE) Wound/Incision: Yes: Open to air, Reddened Neurological: Yes: Alert, Confusion Psychiatric: Yes: Alert Labs: CBC, BMP 06/21/17 11:30 06/21/17 11:30 INR, PTT INR 2.06 (0.82-1.09) H D 06/21/17 11:30 Problem List - Problems (1) Cellulitis of leg Assessment/Plan: -IV abx -was febrile -seen by ID -vancomycin added -seen by orthopedic -ankle xray negative for any fracture or dislocation -pain management -awaiting bed at [facility] Code(s): L03.119 - CELLULITIS OF UNSPECIFIED PART OF LIMB Qualifiers: Laterality: left Qualified Code(s): L03.116 - Cellulitis of left lower limb (2) Inability to ambulate due to ankle or foot Assessment/Plan: Physical therapy Code(s): R26.2 - DIFFICULTY IN WALKING, NOT ELSEWHERE CLASSIFIED (3) Unsteady gait Assessment/Plan: -uses cane and walker at home -physical therapy Code(s): R26.81 - UNSTEADINESS ON FEET (4) Atrial fibrillation Assessment/Plan: -paroxysmal, chronic -on warfarin, will hold -Heparin 5000 u BID -repeat labs in AM Code(s): I48.91 - UNSPECIFIED ATRIAL FIBRILLATION Qualifiers: Atrial fibrillation type: unspecified Qualified Code(s): I48.91 - Unspecified atrial fibrillation (5) Anemia Assessment/Plan: -stool ob pending -Venofer Code(s): D64.9 - ANEMIA, UNSPECIFIED (6) Diabetes mellitus, insulin dependent (IDDM), uncontrolled Assessment/Plan: -recheck A1C -on Insulin -Endocrinology consult Code(s): E10.65 - TYPE 1 DIABETES MELLITUS WITH HYPERGLYCEMIA Qualifiers: Diabetes mellitus complication detail: with unspecified neuropathy (7) Bacteremia due to Enterobacter species Code(s): R78.81 - BACTEREMIA B96.89 - OTH BACTERIAL AGENTS THE CAUSE OF DISEASES CLASSD [id number] (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
[2017-06-22] MEDS: TAMSULOSIN HCL 0.4 MG CAP.ER.24H (FP) PO SCH (10:45)
[2017-06-22] MEDS: LIPASE/PROTEASE/AMYLASE 6,000 UNIT CAPSULE PO SCH ×3 (10:46→16:55)
[2017-06-22] MEDS: AMPICILLIN - 2 GM in SODIUM CHLORIDE 100 ML IVPB SCH ×4 (10:47→21:07)
[2017-06-22] MEDS: TICAGRELOR 90 MG TABLET PO SCH (10:48)
[2017-06-22] MEDS: LORATADINE 10 MG TABLET PO SCH (10:48)
[2017-06-22] MEDS: CARVEDILOL 3.125 MG TABLET (FP) PO SCH ×2 (10:48→21:03)
[2017-06-22] MEDS: DULoxetine HCL 30 MG CAPSULE.DR (FP) PO SCH (10:48)
[2017-06-22] MEDS: ASPIRIN COATED 81 MG TABLET.EC PO SCH (10:49)
[2017-06-22] MEDS: RANOLAZINE E.R. 500 MG TABLET (FP) PO SCH ×2 (10:49→21:03)
[2017-06-22] MEDS: PANTOPRAZOLE 20 MG TABLET (FP) PO SCH ×2 (10:49→21:03)
[2017-06-22] MEDS: GABAPENTIN 100 MG CAPSULE (FP) PO SCH ×2 (10:49→21:03)
[2017-06-22] MEDS: Methylnaltrexone Bromide 12 MG/0.6 ML KIT SQ SCH (10:50)
[2017-06-22] MEDS: IRON SUCROSE INJECTION 300 MG in SODIUM CHLORIDE 235 ML IVPB SCH (10:50)
[2017-06-22] MEDS: POLYETHYLENE GLYCOL 3350 119 GM BTL PO SCH (11:10)
[2017-06-22 11:16] LABS: BASOPHIL 0.4 % (0-2.0); EOSINOPHIL 3.3 % (0-4.5); MCH 26.7 pg (25.7-33.7); MCHC 32.2 g/dl (32.0-35.9); MEAN CELL VOLUME 82.8 fl (80-96); MEAN PLT VOLUME 8.9 fl (7.5-11.1); NEUTROPHILS 81.2 % (42.8-82.8); PLATELET COUNT 236 K/MM3 (134-434); RDW 17.2 % (11.9-15.9); WHITE BLOOD COUNT 10.3 K/mm3 (4.0-10.0)
[2017-06-22 11:29] LABS: INR 1.67 (0.82-1.09); PROTHROMBIN TIME (PATIENT) 18.6 SEC (9.98-11.88)
[2017-06-22 11:39] LABS: ALBUMIN 2.2 g/dl (3.4-5.0); ALK PHOS 123 U/L (45-117); ANION GAP 8 (8-16); BILIRUBIN,TOTAL 0.5 mg/dL (0.2-1.0); CALCIUM 8.4 mg/dL (8.5-10.1); CO2 24 mmol/L (21-32); CREATININE 1.4 mg/dL (0.7-1.3); GLUCOSE,RANDOM 204 mg/dL (74-106); SGOT/AST 30 U/L (15-37); SGPT/ALT 36 U/L (12-78); TOT PROT 6.6 g/dl (6.4-8.2)
[2017-06-22] MEDS ORDERED: INSULIN (NOVOLOG) ASPART 100 UNITS/ML 10ML VIAL ONE ×2 (11:41→17:13)
[2017-06-22] MEDS: CEFTRIAXONE 2 GM in SODIUM CHLORIDE 100 ML IVPB SCH ×2 (13:03→21:12)
[2017-06-22 21:02] VITALS: BP 123/56; PULSE 68; TEMP 97.6
[2017-06-22] MEDS: MONTELUKAST NA 10 MG TABLET PO SCH (21:03)
[2017-06-22] MEDS: ATORVASTATIN CA 80 MG TABLET (FP) PO SCH (21:03)
== END 2017-06-22 21:55 | disposition short-term general hospital (02) | DRG 559 ==
LOC: JER 23:10 → JERBED 06-18 04:11 → J8W 06-18 08:23
PROVIDERS: ADMIT Family Medicine; ATTEND Family Medicine
DX: T84.623A Infection and inflammatory reaction due to internal fixation device of left tibia, initial encounter (principal); A41.81 Sepsis due to Enterococcus; G93.40 Encephalopathy, unspecified; L03.116 Cellulitis of left lower limb; M84.662A Pathological fracture in other disease, left tibia, initial encounter for fracture; Y83.8 Other surgical procedures as the cause of abnormal reaction of the patient, or of later complication, without mention of misadventure at the time of the procedure; Y92.122 Bedroom in nursing home as the place of occurrence of the external cause; I25.5 Ischemic cardiomyopathy; E11.311 Type 2 diabetes mellitus with unspecified diabetic retinopathy with macular edema; I48.0 Paroxysmal atrial fibrillation; E03.9 Hypothyroidism, unspecified; I71.2 Thoracic aortic aneurysm, without rupture; E66.9 Obesity, unspecified; I10 Essential (primary) hypertension; Z68.39 Body mass index [BMI] 39.0-39.9, adult; K57.30 Diverticulosis of large intestine without perforation or abscess without bleeding; I25.10 Atherosclerotic heart disease of native coronary artery without angina pectoris; Z95.5 Presence of coronary angioplasty implant and graft; Z86.718 Personal history of other venous thrombosis and embolism; I25.2 Old myocardial infarction; F03.90 Unspecified dementia, unspecified severity, without behavioral disturbance, psychotic disturbance, mood disturbance, and anxiety; Z90.49 Acquired absence of other specified parts of digestive tract; Z86.73 Personal history of transient ischemic attack (TIA), and cerebral infarction without residual deficits; E78.5 Hyperlipidemia, unspecified; Z79.01 Long term (current) use of anticoagulants; R26.81 Unsteadiness on feet; D64.9 Anemia, unspecified; Z79.4 Long term (current) use of insulin
CPT/HCPCS: 36415; 71010-TC; 73590-TC-LT; 73610-TC-LT; 74176-TC; 80053; 81003; 82009; 82728; 83036; 83540; 83550; 83605; 85025; 85610; 85651; 86140; 87040; 87186; 93005; 93010; 93306-TC; 94640; 97116-GP; 99283-25; G0480; J1756

== ENCOUNTER 2017-07-03 12:34 | Inpatient (IN) | payer OTHER ==
[2017-07-03 12:43] VITALS: BMI 35.7
--- NOTE | 2017-07-03 13:37 | PDOC ---
History of Present Illness - General History Source: Patient, Family Exam Limitations: No Limitations <Cyndy Prado - Last Filed: 07/03/17 14:40> - General History Source: Patient Exam Limitations: No Limitations - History of Present Illness Initial Comments: 07/03/17 13:37 The patient is an 82 year old male with significant history of hypertension, hyperlipidemia, DM, CAD s/p stents, atrial fibrillation, recent LLE tib-fib fracture with osteomyelitis, and dementia. Approximately 2 weeks ago he presented to the ED for his LLE fracture and cellulitis and was admitted to the hospital for IV Rocephin and Ampicillin. He was transferred to [facility] for further management of his care. Approximately 3 days ago he was discharged to [facility]. Today, [facility] staff noticed he had removed his LUE PICC line and sent him to the ED. On evaluation, the patient complains of chest tightness and shortness of breath that began today. Per [facility] records, his doctor also noticed generalized edema that caused concern. Remainder of history is limited secondary to patient's dementia. <Parris Adhikari - Last Filed: 07/03/17 15:35> - General Chief Complaint: Shortness of Breath Stated Complaint: SOB Time Seen by Provider: 07/03/17 12:45 Past History - Past Medical History Anemia: No Asthma: No Cancer: No Cardiac Disorders: Yes (2 cardiac stents) CVA: No COPD: No CHF: No DVT: No Dementia: Yes Diabetes: Yes (IDDM) Dialysis: No GI Disorders: Yes (DIVERTICULITIS, colectomy) Disorders: No HTN: Yes Hypercholesterolemia: Yes Kidney Stones: No Liver Disease: No Psychiatric Problems: No Seizures: No Thyroid Disease: Yes (HYPOTHYROIDISM) Lung CA: No - Surgical History Abdominal Surgery: Yes (FOR DIVERTICULITIS; partial colectomy) Appendectomy: No Cardiac Surgery: Yes (STENT X 2) Cholecystectomy: No Gastric Stapling: No GI Surgery: Yes Lung Surgery: No Neurologic Surgery: No Orthopedic Surgery: No - Immunization History Td Vaccination: No TDAP Vaccination: (unknown on last date now will receive on 12/18/2015) Immunization Up to Date: Yes (FLU ) - Suicide/Smoking/Psychosocial Hx Smoking Status: No Smoking History: Unknown if ever smoked Have you smoked in the past 12 months: No Number of Cigarettes Smoked Daily: 0 Information on smoking cessation initiated: No Hx Alcohol Use: No Drug/Substance Use Hx: No Substance Use Type: None Hx Substance Use Treatment: No <Cyndy Prado - Last Filed: 07/03/17 14:40> <Parris Adhikari - Last Filed: 07/03/17 15:35> - Past Medical History Allergies/Adverse Reactions: Allergies Allergy/AdvReac Type Severity Reaction Status Date / Time No Known Drug Allergies Allergy Verified 07/03/17 12:43 Home Medications: Ambulatory Orders Acetaminophen [Pain Relief] 650 mg PO PRN PRN 07/29/16 Albuterol 2.5/Ipratropium 0.5 [Duoneb -] 1 neb NEB Q4H PRN 07/29/16 Alprazolam [Xanax] 0.25 mg PO BID 07/29/16 Atorvastatin Ca [Lipitor] 80 mg PO HS 07/29/16 Bacitracin - [Bacitracin Topical Ointment -] 1 applic TP DAILY 07/29/16 Carvedilol 3.125 mg PO BID 07/29/16 Cetirizine HCl [Zyrtec -] 10 mg PO DAILY 07/29/16 Duloxetine HCl [Cymbalta] 60 mg PO DAILY 07/29/16 Gabapentin 200 mg PO BID 07/29/16 Lipase/Protease/Amylase [Creon Dr 6,000 Units Capsule] 1 cap PO TID 07/29/16 Methylnaltrexone [place] [Relistor] 12 mg SQ DAILY 07/29/16 Montelukast Na [Singulair -] 10 mg PO HS 07/29/16 Omeprazole 20 mg PO BID 07/29/16 Polyethylene Glycol 3350 [Miralax 119 gm Btl -] 17 gm PO DAILY 07/29/16 Tamsulosin HCl [Flomax] 0.4 mg PO DAILY 07/29/16 Ticagrelor [Brilinta] 90 mg PO BID 07/29/16 Aspirin Coated [Ecotrin -] 81 mg PO DAILY tablet.ec 08/04/16 Ranolazine [Ranexa -] 500 mg PO BID tab 08/04/16 Insulin (Levemir) [Levemir Vial] 25 units SQ BIDI ml 10/10/16 Spironolactone [Aldactone -] 25 mg PO DAILY #30 tablet 10/10/16 Warfarin Na [Coumadin -] 5 mg PO DAILY@1800 #20 tablet 10/10/16 Acetaminophen [Tylenol .Regular Strength -] 650 mg PO Q4H PRN #0 tablet Albuterol 0.083% Nebulizer Gloria [Ventolin 0.083% Nebulizer Soln -] 1 amp NEB QIDR amp 06/21/17 Insulin (Levemir) [Levemir Vial] 42 units SQ BID@07,22 ml 06/21/17 Insulin Sliding Scale [Novolog Vial Sliding Scale -] 1 vial SQ ACHS units 06/21 Iron Sucrose Injection [Venofer Injection -] 300 mg IVPB DAILY vial 06/21/17 Ampicillin - [Ampicillin 2 gm Ivpb (Pre-Docked)] 2 gm IVPB DAILY 07/03/17 Ceftriaxone Na/Dextrose,Iso [Ceftriaxone 2 gm Piggyback] 2 gm IV DAILY 07/03/17 Famotidine [Pepcid] 20 mg PO DAILY 07/03/17 Review of Systems - Review of Systems Able to Perform ROS?: Yes Comments:: 07/03/17 13:44 GENERAL/CONSTITUTIONAL: No: fever, chills, weakness, loss of appetite. HEAD, EYES, EARS, NOSE AND THROAT: No: change in vision, ear pain, discharge, sore throat, throat swelling. CARDIOVASCULAR: Present: Generalized edema. No: chest pain, lightheadedness, palpitations, syncope RESPIRATORY: Present: Chest tightness, SOB. No: cough, wheezing, hemoptysis, stridor. GASTROINTESTINAL: No: nausea, vomiting, abdominal cramping, diarrhea, rectal bleeding, constipation. GENITOURINARY: No: dysuria, hematuria, frequency, urgency, flank pain. MUSCULOSKELETAL: No: back pain, neck pain, joint pain, muscle swelling or pain SKIN AND BREASTS: Present: LUE bruising. No: lesions, pallor, rash or easy bruising. NEUROLOGIC: No: headache, vertigo, paresthesias, weakness ENDOCRINE: No: unexplained weight gain or loss HEMATOLOGIC/LYMPHATIC: No: anemia, easy bleeding, swelling nodes <Parris Adhikari - Last Filed: 07/03/17 15:35> *Physical Exam - Vital Signs Last Vital Signs Temp Pulse Resp BP Pulse Ox 97.7 F 52 L 18 123/84 98 07/03/17 12:38 07/03/17 13:08 07/03/17 12:38 07/03/17 12:38 07/03/17 13:08 <Cyndy Prado - Last Filed: 07/03/17 14:40> - Vital Signs Last Vital Signs Temp Pulse Resp BP Pulse Ox 97.7 F 52 L 18 123/84 98 07/03/17 12:38 07/03/17 13:08 07/03/17 12:38 07/03/17 12:38 07/03/17 13:08 - Physical Exam Comments: 07/03/17 13:45 GENERAL: The patient is in no acute distress. +Generalized edema. HEAD: Normal with no signs of trauma. EYES: PERRLA, EOMI, sclera anicteric, conjunctiva clear. ENT: Ears normal, nares patent, oropharynx clear without exudates. Moist mucous membranes. NECK: Normal range of motion, supple without lymphadenopathy, JVD, or masses. LUNGS: Decreased breath sounds bilaterally. No crackles. HEART:Regular rate and rhythm, normal S1 and S2 without murmur, rub or gallop. ABDOMEN: Soft, nontender, normoactive bowel sounds. No guarding, no rebound. EXTREMITIES: +Left knee tenderness to palpation NEUROLOGICAL: Cranial nerves II through XII grossly intact. Normal speech. No focal neurological deficits. MUSCULOSKELETAL: Back non-tender to palpation, no CVA tenderness SKIN: +Ecchymosis surrounding LUE PICC line site, no warmth or erythema. Warm, Dry, normal turgor. <Parris Adhikari - Last Filed: 07/03/17 15:35> Heart Score/ECG Review #1 ECG reviewed & interpreted by me at: 14:19 07/03/17 14:19 Twelve-lead EKG was performed and reviewed by me. There is normal sinus rhythm with a lightly bradycardic rate 52bpm. The axis is normal. RBBB. The intervals are normal. There are no ST or T wave abnormalities. <Cyndy Prado - Last Filed: 07/03/17 14:40> ED Treatment Course - RADIOLOGY Radiology Studies Ordered: Category Date Time Status CHEST X-RAY PORTABLE* [RAD] Stat Radiology 07/03/17 13:27 Ordered <Cyndy Prado - Last Filed: 07/03/17 14:40> - LABORATORY CBC & Chemistry Diagram: 07/03/17 14:46 07/03/17 14:46 <Parris Adhikari - Last Filed: 07/03/17 15:35> Medical Decision Making - Medical Decision Making 07/03/17 13:36 A portion of this note was documented by scribe services under my direction. I have reviewed the details of the note, within reason, and agree with the documentation with the following case summary and management plan written by me. Nursing documentation reviewed and incorporated into medical decision making 07/03/17 14:16 This is an 82-year-old male with a history of diabetes, hypertension, hyperlipidemia [facility] Patient apparently sustained a tibial fracture, was sent to the [facility] where he was deemed at to be an operative candidate or 2 Patient's course complicated by osteomyelitis Pt started on antibiotics - Ceftriaxone and Ampicillin Today, seen by Dr Pitt in the jail Noted to be confused He pulled out his PICC line He appeared short of breath Pt apparently had no fevers Is notably fluid overloaded - anasarca Will do labs, including ABG CXR EKG Pt is a difficult IV placement Contacted IR for PICC placement CXR: fluid overloading, bilateral pleural effusions, ? infiltrate 07/03/17 14:40 Call placed to IR regarding PICC line. Told that this can only be done and patient is being discharged due to risk of infection. IR recommend central line placement. Left hand IV placed Pt seen in the ER by Dr. Pitt Will admit to tele Will give Lasix <Cyndy Prado - Last Filed: 07/03/17 14:40> - Medical Decision Making 07/03/17 15:33 Chest x-ray, read and interpreted by Dr. Cornejo. Impression: Since 06/18/2017, again noted is the prominent mediastinum with large heart and unfolded aorta. There are degenerative changes. There are degenerative changes. There is old rib trauma. There are new congestive changes with pleural fluid and questionable infiltrates. Follow up recommended. <Parris Adhikari - Last Filed: 07/03/17 15:35> *DC/Admit/Observation/Transfer - Discharge Dispostion Admit: Yes <Cyndy Prado - Last Filed: 07/03/17 14:40> - Attestations Scribe Attestion: 07/03/17 13:50 Documentation prepared by Parris Adhikari, acting as medical practice assistant for Cyndy Prado MD. <Parris Adhikari - Last Filed: 07/03/17 15:35> Diagnosis at time of Disposition: CHF (congestive heart failure) Qualifiers: Congestive heart failure type: unspecified congestive heart failure type Congestive heart failure chronicity: acute on chronic Qualified Code(s): I50.9 - Heart failure, unspecified - Discharge Dispostion Condition at time of disposition: Fair - Referrals
[2017-07-03] MEDS ORDERED: PICC LINE 8 ML FLUSH PROTOCOL IVPUSH PRN (14:11)
[2017-07-03] MEDS ORDERED: FUROSEMIDE 40 MG/4 ML INJECTABLE VIAL IVPUSH ONE (14:13)
[2017-07-03 14:27] LABS: ALLENS TEST POSITIVE; ART PUNCT SITE LEFT RADIAL; ARTERIAL BLD GAS O2 SATURATION 96.4 % (90-98.9); ARTERIAL BLOOD GAS BASE EXCESS 2.4 meq/l (-2-2); ARTERIAL BLOOD GAS HCO3 26.3 meq/L (22-26); ARTERIAL BLOOD GAS PO2 84.3 mmHg (68-100); ARTERIAL BLOOD GAS pH 7.44 (7.35-7.45); LPM/O2% 21%; PT. ON O2? NO; TYPE OF O2 ROOM AIR
[2017-07-03] MEDS ORDERED: FUROSEMIDE 40 MG/4 ML INJECTABLE VIAL ONE (14:36)
[2017-07-03 14:53] LABS: BASOPHIL 0.8 % (0-2.0); MCH 27.6 pg (25.7-33.7); MCHC 32.2 g/dl (32.0-35.9); MEAN CELL VOLUME 85.8 fl (80-96); MEAN PLT VOLUME 9.1 fl (7.5-11.1); NEUTROPHILS 75.3 % (42.8-82.8); PLATELET COUNT 282 K/MM3 (134-434); RDW 18.1 % (11.9-15.9); WHITE BLOOD COUNT 8.5 K/mm3 (4.0-10.0)
[2017-07-03 15:07] LABS: INR 3.33 (0.82-1.09); PROTHROMBIN TIME (PATIENT) 36.6 SEC (9.98-11.88)
--- NOTE | 2017-07-03 15:09 | HP ---
Admitting History and Physical - Primary Care Physician PCP: Rodriguez Rowan - Admission History of Present Illness: The patient is an 82 year old male with significant history of hypertension, hyperlipidemia, DM, CAD s/p stents, atrial fibrillation, recent LLE tib-fib fracture with h osteomyelitis, and dementia. Approximately 2 weeks ago he presented to the ED for his LLE fracture and cellulitis and was admitted to the hospital for IV Rocephin and Ampicillin. He was transferred to [facility] for further management of his care. Approximately 3 days ago he was discharged to [facility]. Today, [facility] staff noticed he had removed his LUE PICC line and sent him to the ED for change in mental status increased confusion and laboured breathing and no relief with nebulizer treatments. On evaluation, the patient complains of chest tightness and shortness of breath that began today. Per [facility] records, his doctor also noticed generalized edema that caused concern. 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 No: Alzheimer's Cardiovascular: Yes: Aneurysm (mild ascending aortic aneurysm (4.2 cm) per 01/[address]), CAD (stents x2 in 2010; thrombectomy & PCI of proximal and mid LAD with Promus Premier stents and PTCA of D1 on 12/18/15 at [facility] for acute/ subacute anteroseptal NM), HTN, Hyperlipdemia, Other (ischemic cardiomyopathy ( LVEF 34% per 02/16/16 nuclear study)) Gastrointestinal: Yes: Constipation, Diverticulosis Heme/Onc: Yes: Anemia Musculoskeletal: Yes: Other (rib fx's right) Endocrine: Yes: Diabetes Mellitus, Hypothyroidism - Past Surgical History Past Surgical History: Yes: Arthrosocopy (Right knee arthroscopy w/ partial medial and lateral meniscectomy 09/01/15), Colectomy - Smoking History Smoking history: Unknown if ever smoked Have you smoked in the past 12 months: No Aproximately how many cigarettes per day: 0 - Alcohol/Substance Use Hx Alcohol Use: No History of Substance Use: reports: None - Social History 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 History of Recent Travel: No Home Medications - Allergies Allergies/Adverse Reactions: Allergies Allergy/AdvReac Type Severity Reaction Status Date / Time No Known Drug Allergies Allergy Verified 07/03/17 12:43 - Home Medications Home Medications: Ambulatory Orders Acetaminophen [Pain Relief] 650 mg PO PRN PRN 07/29/16 Albuterol 2.5/Ipratropium 0.5 [Duoneb -] 1 neb NEB Q4H PRN 07/29/16 Alprazolam [Xanax] 0.25 mg PO BID 07/29/16 Atorvastatin Ca [Lipitor] 80 mg PO HS 07/29/16 Bacitracin - [Bacitracin Topical Ointment -] 1 applic TP DAILY 07/29/16 Carvedilol 3.125 mg PO BID 07/29/16 Cetirizine HCl [Zyrtec -] 10 mg PO DAILY 07/29/16 Duloxetine HCl [Cymbalta] 60 mg PO DAILY 07/29/16 Gabapentin 200 mg PO BID 07/29/16 Lipase/Protease/Amylase [Creon Dr 6,000 Units Capsule] 1 cap PO TID 07/29/16 Methylnaltrexone [place] [Relistor] 12 mg SQ DAILY 07/29/16 Montelukast Na [Singulair -] 10 mg PO HS 07/29/16 Omeprazole 20 mg PO BID 07/29/16 Polyethylene Glycol 3350 [Miralax 119 gm Btl -] 17 gm PO DAILY 07/29/16 Tamsulosin HCl [Flomax] 0.4 mg PO DAILY 07/29/16 Ticagrelor [Brilinta] 90 mg PO BID 07/29/16 Aspirin Coated [Ecotrin -] 81 mg PO DAILY tablet.ec 08/04/16 Ranolazine [Ranexa -] 500 mg PO BID tab 08/04/16 Insulin (Levemir) [Levemir Vial] 25 units SQ BIDI ml 10/10/16 Spironolactone [Aldactone -] 25 mg PO DAILY #30 tablet 10/10/16 Warfarin Na [Coumadin -] 5 mg PO DAILY@1800 #20 tablet 10/10/16 Acetaminophen [Tylenol .Regular Strength -] 650 mg PO Q4H PRN #0 tablet Albuterol 0.083% Nebulizer [place] [Ventolin 0.083% Nebulizer Soln -] 1 amp NEB QIDR amp 06/21/17 Insulin (Levemir) [Levemir Vial] 42 units SQ BID@07,22 ml 06/21/17 Insulin Sliding Scale [Novolog Vial Sliding Scale -] 1 vial SQ ACHS units 06/21 Iron Sucrose Injection [Venofer Injection -] 300 mg IVPB DAILY vial 06/21/17 Ampicillin - [Ampicillin 2 gm Ivpb (Pre-Docked)] 2 gm IVPB DAILY 07/03/17 Ceftriaxone Na/Dextrose,Iso [Ceftriaxone 2 gm Piggyback] 2 gm IV DAILY 07/03/17 Famotidine [Pepcid] 20 mg PO DAILY 07/03/17 Review of Systems - Review of Systems Cardiovascular: reports: Shortness of Breath Respiratory: reports: SOB Physical Examination Vital Signs: Vital Signs Temperature 97.7 F 07/03/17 12:38 Pulse Rate 52 L 07/03/17 13:08 Respiratory Rate 18 07/03/17 12:38 Blood Pressure 123/84 07/03/17 12:38 O2 Sat by Pulse Oximetry (%) 98 07/03/17 13:08 Constitutional: Yes: Calm Cardiovascular: Yes: Regular Rate and Rhythm, S1, S2 Respiratory: Yes: Accessory Muscle Use, Diminished, On Nasal O2, Rales, Tachypnea Gastrointestinal: Yes: Normal Bowel Sounds, Soft, Abdomen, Obese Edema: Yes Neurological: Yes: Alert, Oriented Labs: CBC, BMP 07/03/17 14:46 Imaging - Results Chest X-ray: Report Reviewed Problem List - Problems (1) CHF (congestive heart failure) Assessment/Plan: acute systolic heart failure echo done at [facility] show ejection fraction 25-30 percent tele cardio iv lasix bid daily cxr and weights Code(s): I50.9 - HEART FAILURE, UNSPECIFIED Qualifiers: Congestive heart failure type: unspecified congestive heart failure type Congestive heart failure chronicity: acute on chronic Qualified Code(s ): I50.9 - Heart failure, unspecified; I50.9 - Heart failure, unspecified; I50.9 - Heart failure, unspecified; I50.9 - Heart failure, unspecified (2) ASHD (arteriosclerotic heart disease) Assessment/Plan: brilinta and coreg ranexa Code(s): I25.10 - ATHSCL HEART DISEASE OF [place] CORONARY ARTERY W/O ANG PCTRS (3) Anxiety Assessment/Plan: xanax Code(s): F41.9 - ANXIETY DISORDER, UNSPECIFIED (4) Atrial fibrillation Assessment/Plan: coreg check INR couamdin dosing for inr btw 2-3 Code(s): I48.91 - UNSPECIFIED ATRIAL FIBRILLATION (5) COPD (chronic obstructive pulmonary disease) Assessment/Plan: bronchodilators singulair claritn Code(s): J44.9 - CHRONIC OBSTRUCTIVE PULMONARY DISEASE, UNSPECIFIED (6) Constipation due to opioid therapy Assessment/Plan: relistor Code(s): K59.09 - OTHER CONSTIPATION T40.2X5A - ADVERSE EFFECT OF OTHER OPIOIDS, INITIAL ENCOUNTER (7) Diabetes mellitus, insulin dependent (IDDM), uncontrolled Assessment/Plan: levemir bid hga1c bgm lipid panel Code(s): E10.65 - TYPE 1 DIABETES MELLITUS WITH HYPERGLYCEMIA (8) Hypothyroid Assessment/Plan: tsh Code(s): E03.9 - HYPOTHYROIDISM, UNSPECIFIED (9) Osteomyelitis Assessment/Plan: per [facility] discharge notes ampicilin 2grm q4 for 4 weeks till 08/11 rocephin 2gm bid for 4 weeks Code(s): M86.9 - OSTEOMYELITIS, UNSPECIFIED
[2017-07-03 15:16] LABS: ALBUMIN 2.3 g/dl (3.4-5.0); ANION GAP 9 (8-16); CO2 27 mmol/L (21-32); CREATININE 1.1 mg/dL (0.7-1.3); GLUCOSE,RANDOM 118 mg/dL (74-106); SGPT/ALT 21 U/L (12-78)
[2017-07-03] MEDS ORDERED: FENTANYL PATCH WASTE TD PRN (15:17)
[2017-07-03] MEDS ORDERED: ALPRAZolam 0.25 MG TABLET PO PRN (15:19)
[2017-07-03 15:20] LABS: ALK PHOS 108 U/L (45-117); BILIRUBIN,TOTAL 0.5 mg/dL (0.2-1.0); TROPONIN I 0.04 ng/ml (0.00-0.05)
[2017-07-03 15:22] LABS: CPK 160 IU/L (39-308); SGOT/AST 32 U/L (15-37)
[2017-07-03] MEDS: fentaNYL 12mcg/hr PATCH.TD72 TD SCH (15:57)
[2017-07-03] MEDS: WARFARIN NA 3 MG TABLET PO SCH (17:27)
[2017-07-03] MEDS: LIPASE/PROTEASE/AMYLASE 6,000 UNIT CAPSULE PO SCH (18:30)
[2017-07-03] MEDS ORDERED: FLU VACCINE QUAD 60 MCG/0.5 ML (MDV 17-18) IM ONE (19:14)
[2017-07-03] MEDS: AMPICILLIN - 2 GM in SODIUM CHLORIDE 100 ML IVPB SCH (22:04)
[2017-07-03] MEDS ORDERED: oxyCODONE HCL 5 MG TABLET PO PRN (22:55)
[2017-07-03] MEDS ORDERED: ACETAMINOPHEN 325 MG TABLET (FP) ONE (23:02)
[2017-07-03] MEDS: RANOLAZINE E.R. 500 MG TABLET (FP) PO SCH (23:04)
[2017-07-03] MEDS: MONTELUKAST NA 10 MG TABLET PO SCH (23:04)
[2017-07-03] MEDS: ATORVASTATIN CA 80 MG TABLET (FP) PO SCH (23:04)
[2017-07-03] MEDS: INSULIN DETEMIR 100 UNITS/ML MDV SQ SCH (23:04)
[2017-07-03] MEDS: PANTOPRAZOLE 20 MG TABLET (FP) PO SCH (23:04)
[2017-07-03] MEDS: CARVEDILOL 3.125 MG TABLET (FP) PO SCH (23:04)
[2017-07-03] MEDS: ACETAMINOPHEN 325 MG TABLET (FP) PO PRN (23:15)
[2017-07-04] MEDS: AMPICILLIN - 2 GM in SODIUM CHLORIDE 100 ML IVPB SCH ×6 (03:00→22:07)
[2017-07-04] MEDS ORDERED: FUROSEMIDE 40 MG/4 ML INJECTABLE VIAL IVPUSH SCH (06:00)
[2017-07-04] MEDS: INSULIN DETEMIR 100 UNITS/ML MDV SQ SCH ×2 (07:04→22:20)
[2017-07-04 07:08] LABS: THYROXINE (T4) 3.1 ug/dl (4.5-12.1)
[2017-07-04 07:17] LABS: THYROID STIMULATING HORMONE 27.1 uIU/ml (0.358-3.74)
--- NOTE | 2017-07-04 08:28 | PN ---
Progress Note, Physician History of Present Illness: sob no cp - Current Medication List Current Medications: Active Medications Acetaminophen (Tylenol -) 650 mg PO Q4H PRN PRN Reason: FEVER OR PAIN Last Admin: 07/03/17 23:15 Dose: 650 mg Alprazolam (Xanax -) 0.25 mg PO BID PRN PRN Reason: ANXIETY Aspirin (Asa -) 81 mg PO DAILY [facility] Atorvastatin Calcium (Lipitor -) 80 mg PO HS [facility] Last Admin: 07/03/17 23:04 Dose: 80 mg Carvedilol (Coreg -) 3.125 mg PO BID [facility] Last Admin: 07/03/17 23:04 Dose: 3.125 mg Duloxetine HCl (Cymbalta -) 60 mg PO DAILY [facility] Fentanyl (Duragesic 12mcg Patch -) 1 patch TD Q72H [facility] Stop: 07/10/17 15:17 Last Admin: 07/03/17 15:57 Dose: 1 patch Furosemide (Lasix Injection -) 60 mg IVPUSH BID@0600,1400 [facility] IV Flush (Picc Line Flush) 8 ml IVPUSH PRN PRN PRN Reason: Protocol Ampicillin Sodium 2 gm/ Sodium (Chloride) 100 mls @ 200 mls/hr IVPB Q6H-IV [facility] Last Admin: 07/04/17 03:00 Dose: 200 mls/hr Insulin Detemir (Levemir Vial) 30 units SQ BID@0700,2200 [facility] Last Admin: 07/04/17 07:04 Dose: 30 units Loratadine (Claritin -) 10 mg PO DAILY [facility] Methylnaltrexone [place] (Relistor -) 12 mg SQ DAILY [facility] Miscellaneous (Duragesic Patch Waste) 1 each TD PRN PRN PRN Reason: PAIN Montelukast Sodium (Singulair -) 10 mg PO HS [facility] Last Admin: 07/03/17 23:04 Dose: 10 mg Oxycodone HCl (Roxicodone -) 5 mg PO Q6H PRN PRN Reason: PAIN Pancrelipase (Creon Dr 6,000 Units Capsule) 1 cap PO TIDCM [facility] Last Admin: 07/03/17 18:30 Dose: Not Given Pantoprazole Sodium (Protonix -) 20 mg PO BID [facility] Last Admin: 07/03/17 23:04 Dose: 20 mg Ranolazine (Ranexa -) 500 mg PO BID [facility] Last Admin: 07/03/17 23:04 Dose: 500 mg Tamsulosin HCl (Flomax -) 0.4 mg PO DAILY@0830 [facility] Warfarin Sodium (Coumadin -) 3 mg PO DAILY@1800 [facility] Last Admin: 07/03/17 17:27 Dose: Not Given - Objective Vital Signs: Vital Signs Temperature 97.4 F L 07/04/17 02:00 Pulse Rate 60 07/04/17 06:00 Respiratory Rate 20 07/04/17 06:00 Blood Pressure 127/70 07/04/17 06:00 O2 Sat by Pulse Oximetry (%) 100 07/03/17 21:00 Cardiovascular: Yes: S1, S2 Respiratory: Yes: Diminished, Rales Gastrointestinal: Yes: Normal Bowel Sounds, Soft Edema: Yes Labs: CBC, BMP 07/03/17 14:46 07/03/17 14:46 INR, PTT INR 3.33 (0.82-1.09) H D 07/03/17 14:46 Assessment/Plan - Problems (1) CHF (congestive heart failure) Assessment/Plan: acute systolic heart failure echo done at [facility] show ejection fraction 25-30 percent tele cardio iv lasix 60 bid daily cxr and weights Code(s): I50.9 - HEART FAILURE, UNSPECIFIED Qualifiers: Congestive heart failure type: unspecified congestive heart failure type Congestive heart failure chronicity: acute on chronic Qualified Code(s ): I50.9 - Heart failure, unspecified; I50.9 - Heart failure, unspecified; I50.9 - Heart failure, unspecified; I50.9 - Heart failure, unspecified (2) ASHD (arteriosclerotic heart disease) Assessment/Plan: -on asa -?brilinta ranexa and coreg Code(s): I25.10 - ATHSCL HEART DISEASE OF [place] CORONARY ARTERY W/O ANG PCTRS (3) Anxiety Assessment/Plan: xanax Code(s): F41.9 - ANXIETY DISORDER, UNSPECIFIED (4) Atrial fibrillation Assessment/Plan: coreg check INR couamdin dosing for inr btw 2-3 Code(s): I48.91 - UNSPECIFIED ATRIAL FIBRILLATION (5) COPD (chronic obstructive pulmonary disease) Assessment/Plan: bronchodilators roxy rees Code(s): J44.9 - CHRONIC OBSTRUCTIVE PULMONARY DISEASE, UNSPECIFIED (6) Constipation due to opioid therapy Assessment/Plan: relistor Code(s): K59.09 - OTHER CONSTIPATION T40.2X5A - ADVERSE EFFECT OF OTHER OPIOIDS, INITIAL ENCOUNTER (7) Diabetes mellitus, insulin dependent (IDDM), uncontrolled Assessment/Plan: levemir bid hga1c bgm lipid panel Code(s): E10.65 - TYPE 1 DIABETES MELLITUS WITH HYPERGLYCEMIA (8) Hypothyroid Assessment/Plan: tsh resume synthroid 100 Code(s): E03.9 - HYPOTHYROIDISM, UNSPECIFIED (9) Osteomyelitis Assessment/Plan: per [facility] discharge notes ampicilin 2grm q4 for 4 weeks till 08/11 rocephin 2gm bid for 4 weeks ID and ORTHO Code(s): M86.9 - OSTEOMYELITIS, UNSPECIFIED
--- NOTE | 2017-07-04 08:59 | PN ---
Progress Note, Physician Chief Complaint: ID Full note dictated and discussed with Dr Rowan - Current Medication List Current Medications: Active Medications Acetaminophen (Tylenol -) 650 mg PO Q4H PRN PRN Reason: FEVER OR PAIN Last Admin: 07/03/17 23:15 Dose: 650 mg Alprazolam (Xanax -) 0.25 mg PO BID PRN PRN Reason: ANXIETY Aspirin (Asa -) 81 mg PO DAILY [facility] Atorvastatin Calcium (Lipitor -) 80 mg PO HS [facility] Last Admin: 07/03/17 23:04 Dose: 80 mg Carvedilol (Coreg -) 3.125 mg PO BID [facility] Last Admin: 07/03/17 23:04 Dose: 3.125 mg Duloxetine HCl (Cymbalta -) 60 mg PO DAILY [facility] Fentanyl (Duragesic 12mcg Patch -) 1 patch TD Q72H [facility] Stop: 07/10/17 15:17 Last Admin: 07/03/17 15:57 Dose: 1 patch Furosemide (Lasix Injection -) 60 mg IVPUSH BID@0600,1400 [facility] IV Flush (Picc Line Flush) 8 ml IVPUSH PRN PRN PRN Reason: Protocol Ampicillin Sodium 2 gm/ Sodium (Chloride) 100 mls @ 200 mls/hr IVPB Q6H-IV MANAN Last Admin: 07/04/17 03:00 Dose: 200 mls/hr Insulin Detemir (Levemir Vial) 30 units SQ BID@0700,2200 [facility] Last Admin: 07/04/17 07:04 Dose: 30 units Levothyroxine Sodium (Synthroid -) 100 mcg PO DAILY@0700 [facility] Loratadine (Claritin -) 10 mg PO DAILY [facility] Methylnaltrexone [place] (Relistor -) 12 mg SQ DAILY [facility] Miscellaneous (Duragesic Patch Waste) 1 each TD PRN PRN PRN Reason: PAIN Montelukast Sodium (Singulair -) 10 mg PO HS [facility] Last Admin: 07/03/17 23:04 Dose: 10 mg Oxycodone HCl (Roxicodone -) 5 mg PO Q6H PRN PRN Reason: PAIN Pancrelipase (Creon Dr 6,000 Units Capsule) 1 cap PO TIDCM [facility] Last Admin: 07/03/17 18:30 Dose: Not Given Pantoprazole Sodium (Protonix -) 20 mg PO BID [facility] Last Admin: 07/03/17 23:04 Dose: 20 mg Ranolazine (Ranexa -) 500 mg PO BID [facility] Last Admin: 07/03/17 23:04 Dose: 500 mg Tamsulosin HCl (Flomax -) 0.4 mg PO DAILY@0830 [facility] Warfarin Sodium (Coumadin -) 3 mg PO DAILY@1800 [facility] Last Admin: 07/03/17 17:27 Dose: Not Given - Objective Vital Signs: Vital Signs Temperature 97.4 F L 07/04/17 02:00 Pulse Rate 60 07/04/17 06:00 Respiratory Rate 20 07/04/17 06:00 Blood Pressure 127/70 07/04/17 06:00 O2 Sat by Pulse Oximetry (%) 100 07/03/17 21:00 Edema: Yes (positive less warm) Labs: CBC, BMP 07/03/17 14:46 07/03/17 14:46 INR, PTT INR 3.33 (0.82-1.09) H D 07/03/17 14:46 Assessment/Plan Microbiology Laboratory Tests 07/03/17 07/03/17 14:46 14:46 WBC 8.5 Hgb 11.2 L D Hct 34.7 L D Plt Count 282 BUN 11 D Creatinine 1.1 D Assessment Infected LE hardware Enterococcal bacteremia recent Plan PICC line Resume antibiotics as before Hussein LEDESMA
[2017-07-04 09:29] LABS: C-REACTIVE PROTEIN 1.9 MG/DL (0.00-0.3)
[2017-07-04] MEDS: ASPIRIN 81 MG CHEWABLE TABLETS PO SCH (09:49)
[2017-07-04] MEDS: CARVEDILOL 3.125 MG TABLET (FP) PO SCH ×2 (09:49→22:28)
[2017-07-04] MEDS: RANOLAZINE E.R. 500 MG TABLET (FP) PO SCH ×2 (09:49→22:28)
[2017-07-04] MEDS: PANTOPRAZOLE 20 MG TABLET (FP) PO SCH ×2 (09:49→22:28)
[2017-07-04] MEDS: DULoxetine HCL 30 MG CAPSULE.DR (FP) PO SCH (09:49)
[2017-07-04] MEDS: LORATADINE 10 MG TABLET PO SCH (09:50)
[2017-07-04] MEDS: TAMSULOSIN HCL 0.4 MG CAP.ER.24H (FP) PO SCH (09:50)
[2017-07-04] MEDS: LIPASE/PROTEASE/AMYLASE 6,000 UNIT CAPSULE PO SCH ×3 (09:50→17:37)
--- NOTE | 2017-07-04 10:29 | CONS ---
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 The patient was initially seen on June [address] Boss with a past medical history of diabetes, hypertension, and coronary artery disease. In June of 2016, he had sustained a fracture to the left tibia-fibular bone. At that time, he underwent placement of a linda. He had been doing well until 4 or 5 months prior to admission in late May of 2017 when he began experiencing chronic pain for which he was admitted. He developed an open wound on his left atkinson, which was very tender, and he was therefore unable to ambulate because of pain. At the time we saw him initially, he was noted to have cellulitis with elevated inflammatory markers and was empirically placed on broad spectrum antibiotics. Subsequently, blood cultures were found to be positive for enterococcus faecalis, and when I saw him in followup, I suspected that the underlying prosthesis was indeed infected and the cause of the bacteremia. Because of the potential for further aggressive surgical intervention, he was seen by orthopedics and then transferred to [facility] with a PICC line receiving ampicillin and ceftriaxone. He apparently only spent a brief few days in the hospital, and I do not have any details regarding the opinions of the physicians who saw him at that time. He is admitted now with apparently the PICC line having fallen out, and he is currently afebrile. At the time of admission, the patient was noted to be confused with labored breathing and experienced no relief with the nebulizer treatment. He also complained of some chest tightness and shortness of breath. He had been admitted by Dr. Pitt with clinical impression of congestive heart failure. Currently, he appears in no acute distress and notes he has been able to ambulate somewhat, although notes edema in both lower extremities. PAST MEDICAL HISTORY: Includes anxiety disorder, atrial fibrillation, COPD, ASHD, enterococcal bacteremia. MEDICATIONS AT HOME: Xanax, Lipitor, carvedilol, gabapentin, Relistor, Singulair, omeprazole, tamsulosin, aspirin, insulin, Coumadin, ampicillin, ceftriaxone. ALLERGIES: None known. SOCIAL HISTORY: Unkown if ever smoked. No history of alcohol use. FAMILY HISTORY: Reviewed and noncontributory. REVIEW OF SYSTEMS: All systems reviewed and noncontributory. PHYSICAL EXAMINATION: General: He was a heavyset male, alert and in no acute distress. Vital signs: The temperature was 97.4, pulse 60, blood pressure 123/84, respirations 18. Neck: Supple. Lungs: With diminished breath sounds bilaterally. Heart: S1, S2, regular rhythm, without audible murmur. Abdomen: Was distended, soft, and nontender. No organomegaly. Extremities: Revealed bilateral peripheral edema, lower extremities. An area of induration and redness previously noted in late May on the atkinson was markedly reduced, though still somewhat indurated. No fluctuance, purulence noted. A smaller area below the knee looking similar was also nontender. No apparent knee effusion or knee tenderness. LABORATORY DATA: The white count is 8.5, hemoglobin 11.2, platelets 282. INR 3.3. BUN 11, creatinine 1.1. Liver enzymes within normal limits. Two sets of blood cultures pending. ASSESSMENT: Enterococcus faecalis bacteremia June 18. 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 Recent x-ray dated June 18, 2017, showed an intramedullary tibial linda with healing fracture and callus formation in the mid-shaft tibia-fibula, a healed fracture distal left fibula. PLAN: Patient needs to continue on long-term antibiotic therapy. It would be important to obtain records from [facility] regarding the opinions of the surgeons and possibly Infectious Disease who may have seen the patient, as well. For now, he will be continued on ampicillin and ceftriaxone. Clinically, he appears much improved with regards to his leg as compared to end may at the time of discharge. A repeat ESR and CRP. 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 The case was discussed with Dr. Anum HOWELL M.D. EVELIO/[id number]
--- NOTE | 2017-07-04 10:54 | EKG ---
Test Reason : Blood Pressure : / mmHG Vent. Rate : 051 BPM Atrial Rate : 067 BPM P-R Int : 000 ms QRS Dur : 146 ms QT Int : 476 ms P-R-T Axes : 014 008 261 degrees QTc Int : 438 ms UNDETERMINED RHYTHM RIGHT BUNDLE BRANCH BLOCK ANTEROSEPTAL INFARCT , AGE UNDETERMINED ABNORMAL ECG WHEN COMPARED WITH ECG OF 03-JUL-2017 13:36, CURRENT UNDETERMINED RHYTHM PRECLUDES RHYTHM COMPARISON, NEEDS REVIEW Confirmed by MADELINE LEDESMA, PANCHO ([id number]) on 07/04/2017 10:54:24 AM Referred By: Pasquale VÁZQUEZ Confirmed By:PANCHO CORREA MD
[2017-07-04 10:59] LABS: INR 3.15 (0.82-1.09); PROTHROMBIN TIME (PATIENT) 34.7 SEC (9.98-11.88)
[2017-07-04] MEDS: CEFTRIAXONE 2 GM in DEXTROSE 5%-WATER - 100 ML IVPB SCH (11:05)
[2017-07-04] MEDS: Methylnaltrexone Bromide 12 MG/0.6 ML KIT SQ SCH (11:05)
--- NOTE | 2017-07-04 12:14 | PN ---
Progress Note (short form) - Note Progress Note: Pt seen and examined. He is well known to us. 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 We are not doing surgery on him. He was referred to [facility] for definitive treatment. He is not a surgical candidate at the present time because of his cardiac function/EF. He is on IV suppressive antibiotics. If he is not a surgical candidate then that is the only treatment option. I recommend he follow up at [facility] if he wants the surgery and understands the risks involved.
--- NOTE | 2017-07-04 13:37 | CON.CARD ---
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 Was [facility] [place] [facility] when noted PICC line was out and patient had confusion along with sob. In ER, patient c/o chest pain and sob. CXR with congestion. BNP elevated. 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 No: Alzheimer's Cardio/Vascular: Yes: Aneurysm (mild ascending aortic aneurysm (4.2 cm) per chest CT), CAD (stents x2 in 2010; thrombectomy & PCI of proximal and mid LAD with Promus Premier stents and PTCA of D1 on 12/18/15 at [facility] for acute/ subacute anteroseptal [place]), HTN, Hyperlipdemia, Other (ischemic cardiomyopathy ( LVEF 34% per 02/16/16 nuclear study)) Gastrointestinal: Yes: Constipation, Diverticulosis Musculoskeletal: Yes: Other (rib fx's right) Endocrine: Yes: Diabetes Mellitus, Hypothyroidism - Past Surgical History Past Surgical History: Yes: Arthrosocopy (Right knee arthroscopy w/ partial medial and lateral meniscectomy 09/01/15), Colectomy - Alcohol/Substance Use Hx Alcohol Use: No History of Substance Use: reports: None - Smoking History Smoking history: Unknown if ever smoked Have you smoked in the past 12 months: No Aproximately how many cigarettes per day: 0 - Social History Usual Living Arrangement: [facility] (since last d/c) 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 History of Recent Travel: No Home Medications - Allergies Allergies/Adverse Reactions: Allergies Allergy/AdvReac Type Severity Reaction Status Date / Time No Known Drug Allergies Allergy Verified 07/03/17 12:43 - Home Medications Home Medications: Ambulatory Orders Acetaminophen [Pain Relief] 650 mg PO PRN PRN 07/29/16 Albuterol 2.5/Ipratropium 0.5 [Duoneb -] 1 neb NEB Q4H PRN 07/29/16 Alprazolam [Xanax] 0.25 mg PO BID 07/29/16 Atorvastatin Ca [Lipitor] 80 mg PO HS 07/29/16 Bacitracin - [Bacitracin Topical Ointment -] 1 applic TP DAILY 07/29/16 Carvedilol 3.125 mg PO BID 07/29/16 Cetirizine HCl [Zyrtec -] 10 mg PO DAILY 07/29/16 Duloxetine HCl [Cymbalta] 60 mg PO DAILY 07/29/16 Gabapentin 200 mg PO BID 07/29/16 Lipase/Protease/Amylase [Creon Dr 6,000 Units Capsule] 1 cap PO TID 07/29/16 Methylnaltrexone [place] [Relistor] 12 mg SQ DAILY 07/29/16 Montelukast Na [Singulair -] 10 mg PO HS 07/29/16 Omeprazole 20 mg PO BID 07/29/16 Polyethylene Glycol 3350 [Miralax 119 gm Btl -] 17 gm PO DAILY 07/29/16 Tamsulosin HCl [Flomax] 0.4 mg PO DAILY 07/29/16 Ticagrelor [Brilinta] 90 mg PO BID 07/29/16 Aspirin Coated [Ecotrin -] 81 mg PO DAILY tablet.ec 08/04/16 Ranolazine [Ranexa -] 500 mg PO BID tab 08/04/16 Insulin (Levemir) [Levemir Vial] 25 units SQ BIDI ml 10/10/16 Spironolactone [Aldactone -] 25 mg PO DAILY #30 tablet 10/10/16 Warfarin Na [Coumadin -] 5 mg PO DAILY@1800 #20 tablet 10/10/16 Acetaminophen [Tylenol .Regular Strength -] 650 mg PO Q4H PRN #0 tablet Albuterol 0.083% Nebulizer [place] [Ventolin 0.083% Nebulizer Soln -] 1 amp NEB QIDR amp 06/21/17 Insulin (Levemir) [Levemir Vial] 42 units SQ BID@07,22 ml 06/21/17 Insulin Sliding Scale [Novolog Vial Sliding Scale -] 1 vial SQ ACHS units 06/21 Iron Sucrose Injection [Venofer Injection -] 300 mg IVPB DAILY vial 06/21/17 Ampicillin - [Ampicillin 2 gm Ivpb (Pre-Docked)] 2 gm IVPB DAILY 07/03/17 Ceftriaxone Na/Dextrose,Iso [Ceftriaxone 2 gm Piggyback] 2 gm IV DAILY 07/03/17 Famotidine [Pepcid] 20 mg PO DAILY 07/03/17 Vital Signs: Vital Signs Temperature 98.2 F 07/04/17 08:15 Pulse Rate 58 L 07/04/17 08:15 Respiratory Rate 18 07/04/17 08:15 Blood Pressure 114/66 07/04/17 08:15 O2 Sat by Pulse Oximetry (%) 100 07/03/17 21:00 Constitutional: Yes: No Distress Respiratory: Yes: Rales Gastrointestinal: Yes: Soft Cardiovascular: Yes: Regular Rate and Rhythm JVD: Yes Carotid Bruit: No Heart Sounds: Yes: S1, S2 Edema: Yes Edema: LLE: 1+, RLE: 1+ - Other Data Labs, Other Data: CBC, BMP 07/03/17 14:46 07/03/17 14:46 INR, PTT INR 3.15 (0.82-1.09) H 07/04/17 10:18 Troponin, BNP 07/03/17 14:46 Troponin I 0.04 D B-Natriuretic Peptide 4391.40 H Troponin, BNP 07/03/17 14:46 Troponin I 0.04 D B-Natriuretic Peptide 4391.40 H sinus bradycardia at 51bpm, 1 avb with wenkenbach, RBBB, anteroseptal infarct pattern Imaging - Results Chest X-ray: Report Reviewed EKG: Image Reviewed Problem List - Problems (1) CAD in [place] artery Code(s): I25.10 - ATHSCL HEART DISEASE OF [place] CORONARY ARTERY W/O ANG PCTRS (2) CHF (congestive heart failure) Code(s): I50.9 - HEART FAILURE, UNSPECIFIED Qualifiers: Congestive heart failure type: unspecified congestive heart failure type Congestive heart failure chronicity: acute on chronic Qualified Code(s ): I50.9 - Heart failure, unspecified; I50.9 - Heart failure, unspecified; I50.9 - Heart failure, unspecified; I50.9 - Heart failure, unspecified Assessment/Plan 82 year old with a pmhx of htn, dm, hld, hypothyroidism, diverticulitis, paroxysmal afib, mild asc aortic aneurysm 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 Was at [place] [facility] when noted PICC line was out and patient had confusion along with sob. In ER, patient c/o chest pain and sob. CXR with congestion. BNP elevated. Given IV lasix with improvement 1) Acute on chronic systolic CHF Known LVEF 35% with ischemic CM -On low dose carvedilol 3.125mg. Will monitor on tele and if can tolerate low dose beta chencho. BP will not allow at this time but if tolerates in future amrita-i/arb -Volume overloaded Furosemide 60mg IV q12 Monitor lytes, weights, I/O's and replete K if needed 2) CAD No acute ischemic ecg changes. On high dose statin On aspirin/brillinta/coumadin. See if any reason why he is on triple therapy and if not than would stop aspirin given risk of bleeding. Can stop ranexa 3) Afib In sinus rhythm Will continue carvedilol if tolerates it On coumadin goal INR 2-3
[2017-07-04] MEDS: FUROSEMIDE 40 MG/4 ML INJECTABLE VIAL IVPUSH SCH (15:21)
[2017-07-04] MEDS ORDERED: PT OWN MED DRAWER 7, Y5N ONE (17:14)
[2017-07-04] MEDS: WARFARIN NA 3 MG TABLET PO SCH (17:31)
[2017-07-04] MEDS: MONTELUKAST NA 10 MG TABLET PO SCH (22:28)
[2017-07-04] MEDS: ATORVASTATIN CA 80 MG TABLET (FP) PO SCH (22:28)
[2017-07-05] MEDS: AMPICILLIN - 2 GM in SODIUM CHLORIDE 100 ML IVPB SCH ×6 (03:00→22:58)
[2017-07-05] MEDS: FUROSEMIDE 40 MG/4 ML INJECTABLE VIAL IVPUSH SCH ×2 (06:49→14:30)
[2017-07-05] MEDS: INSULIN DETEMIR 100 UNITS/ML MDV SQ SCH ×2 (06:50→22:54)
[2017-07-05 06:54] LABS: INR 2.14 (0.82-1.09); PROTHROMBIN TIME (PATIENT) 24.2 SEC (9.98-11.88)
[2017-07-05] MEDS ORDERED: LEVOTHYROXINE NA 100 MCG TABLET (FP) PO SCH (07:00)
[2017-07-05 07:03] LABS: BASOPHIL 1.1 % (0-2.0); EOSINOPHIL 7.4 % (0-4.5); MCHC 31.8 g/dl (32.0-35.9); NEUTROPHILS 70.6 % (42.8-82.8); PLATELET COUNT 268 K/MM3 (134-434); RDW 18.2 % (11.9-15.9); WHITE BLOOD COUNT 7.9 K/mm3 (4.0-10.0)
[2017-07-05 07:11] LABS: ALBUMIN 2.1 g/dl (3.4-5.0); ANION GAP 8 (8-16); CALCIUM 7.8 mg/dL (8.5-10.1); CO2 30 mmol/L (21-32); CREATININE 1.1 mg/dL (0.7-1.3); GLUCOSE,RANDOM 127 mg/dL (74-106); SGOT/AST 15 U/L (15-37); SGPT/ALT 16 U/L (12-78)
[2017-07-05 07:13] LABS: ALK PHOS 98 U/L (45-117); BILIRUBIN,TOTAL 0.4 mg/dL (0.2-1.0); TOT PROT 6.2 g/dl (6.4-8.2)
[2017-07-05] MEDS ORDERED: FLU VACCINE QUAD 60 MCG/0.5 ML (MDV 17-18) IM ONE ×2 (07:45→10:00)
--- NOTE | 2017-07-05 08:19 | PN ---
Progress Note, Physician History of Present Illness: sob no cp CONFUSED - Current Medication List Current Medications: Active Medications Acetaminophen (Tylenol -) 650 mg PO Q4H PRN PRN Reason: FEVER OR PAIN Last Admin: 07/03/17 23:15 Dose: 650 mg Alprazolam (Xanax -) 0.25 mg PO BID PRN PRN Reason: ANXIETY Aspirin (Asa -) 81 mg PO DAILY [facility] Last Admin: 07/04/17 09:49 Dose: 81 mg Atorvastatin Calcium (Lipitor -) 80 mg PO HS [facility] Last Admin: 07/04/17 22:28 Dose: 80 mg Carvedilol (Coreg -) 3.125 mg PO BID [facility] Last Admin: 07/04/17 22:28 Dose: 3.125 mg Duloxetine HCl (Cymbalta -) 60 mg PO DAILY [facility] Last Admin: 07/04/17 09:49 Dose: 60 mg Fentanyl (Duragesic 12mcg Patch -) 1 patch TD Q72H [facility] Stop: 07/10/17 15:17 Last Admin: 07/03/17 15:57 Dose: 1 patch Furosemide (Lasix Injection -) 60 mg IVPUSH BID@0600,1400 [facility] Last Admin: 07/05/17 06:49 Dose: 60 mg IV Flush (Picc Line Flush) 8 ml IVPUSH PRN PRN PRN Reason: Protocol Ceftriaxone Sodium 2 gm/ (Dextrose) 100 mls @ 200 mls/hr IVPB DAILY [facility] Last Admin: 07/04/17 11:05 Dose: 200 mls/hr Ampicillin Sodium 2 gm/ Sodium (Chloride) 100 mls @ 200 mls/hr IVPB Q4H-IV [facility] Last Admin: 07/05/17 06:50 Dose: 200 mls/hr Influenza Virus Vaccine Quadrival (Flulaval Quad [id number]) 60 mcg IM .ONCE ONE Stop: 07/05/17 10:01 Insulin Detemir (Levemir Vial) 30 units SQ BID@0700,2200 [facility] Last Admin: 07/05/17 06:50 Dose: 30 units Levothyroxine Sodium (Synthroid -) 100 mcg PO DAILY@0700 [facility] Last Admin: 07/05/17 06:50 Dose: 100 mcg Loratadine (Claritin -) 10 mg PO DAILY [facility] Last Admin: 07/04/17 09:50 Dose: 10 mg Methylnaltrexone [place] (Relistor -) 12 mg SQ DAILY [facility] Last Admin: 07/04/17 11:05 Dose: 12 mg Miscellaneous (Duragesic Patch Waste) 1 each TD PRN PRN PRN Reason: PAIN Montelukast Sodium (Singulair -) 10 mg PO HS [facility] Last Admin: 07/04/17 22:28 Dose: 10 mg Oxycodone HCl (Roxicodone -) 5 mg PO Q6H PRN PRN Reason: PAIN Pancrelipase (Creon Dr 6,000 Units Capsule) 1 cap PO TIDCM [facility] Last Admin: 07/04/17 17:37 Dose: 1 cap Pantoprazole Sodium (Protonix -) 20 mg PO BID [facility] Last Admin: 07/04/17 22:28 Dose: 20 mg Ranolazine (Ranexa -) 500 mg PO BID [facility] Last Admin: 07/04/17 22:28 Dose: 500 mg Tamsulosin HCl (Flomax -) 0.4 mg PO DAILY@0830 [facility] Last Admin: 07/04/17 09:50 Dose: 0.4 mg Warfarin Sodium (Coumadin -) 3 mg PO DAILY@1800 [facility] Last Admin: 07/04/17 17:31 Dose: Not Given - Objective Vital Signs: Vital Signs Temperature 98.1 F 07/05/17 06:00 Pulse Rate 47 L 07/05/17 06:00 Respiratory Rate 20 07/05/17 06:00 Blood Pressure 119/67 07/05/17 06:00 O2 Sat by Pulse Oximetry (%) 98 07/04/17 21:00 Cardiovascular: Yes: Murmur, S1, S2 Respiratory: Yes: Rales Gastrointestinal: Yes: Normal Bowel Sounds, Soft Edema: Yes Edema: LLE: 3+, RLE: 3+ Labs: CBC, BMP 07/05/17 06:15 07/05/17 06:15 INR, PTT INR 2.14 (0.82-1.09) H D 07/05/17 06:15 Assessment/Plan - Problems (1) CHF (congestive heart failure) Assessment/Plan: acute systolic heart failure echo done at [facility] show ejection fraction 25-30 percent tele cardio iv lasix 60 bid daily cxr and weights Code(s): I50.9 - HEART FAILURE, UNSPECIFIED Qualifiers: Congestive heart failure type: unspecified congestive heart failure type Congestive heart failure chronicity: acute on chronic Qualified Code(s ): I50.9 - Heart failure, unspecified; I50.9 - Heart failure, unspecified; I50.9 - Heart failure, unspecified; I50.9 - Heart failure, unspecified (2) ASHD (arteriosclerotic heart disease) Assessment/Plan: -on asa -?brilinta ranexa and coreg Code(s): I25.10 - ATHSCL HEART DISEASE OF [place] CORONARY ARTERY W/O ANG PCTRS (3) Anxiety Assessment/Plan: xanax Code(s): F41.9 - ANXIETY DISORDER, UNSPECIFIED (4) Atrial fibrillation Assessment/Plan: coreg check INR couamdin dosing for inr btw 2-3 Code(s): I48.91 - UNSPECIFIED ATRIAL FIBRILLATION (5) COPD (chronic obstructive pulmonary disease) Assessment/Plan: bronchodilators singulair claritn Code(s): J44.9 - CHRONIC OBSTRUCTIVE PULMONARY DISEASE, UNSPECIFIED (6) Constipation due to opioid therapy Assessment/Plan: relistor Code(s): K59.09 - OTHER CONSTIPATION T40.2X5A - ADVERSE EFFECT OF OTHER OPIOIDS, INITIAL ENCOUNTER (7) Diabetes mellitus, insulin dependent (IDDM), uncontrolled Assessment/Plan: levemir bid hga1c bgm lipid panel Code(s): E10.65 - TYPE 1 DIABETES MELLITUS WITH HYPERGLYCEMIA (8) Hypothyroid Assessment/Plan: tsh resume synthroid 100 Code(s): E03.9 - HYPOTHYROIDISM, UNSPECIFIED (9) Osteomyelitis Assessment/Plan: per [facility] discharge notes ampicilin 2grm q4 for 4 weeks till 08/11 rocephin 2gm bid for 4 weeks ID and ORTHO Code(s): M86.9 - OSTEOMYELITIS, UNSPECIFIED (10) Confusion Assessment/Plan: CT OF HEAD NEURO
[2017-07-05] MEDS ORDERED: PT OWN MED DRAWER 7, Y5N ONE ×2 (08:37→22:58)
[2017-07-05] MEDS: CEFTRIAXONE 2 GM in DEXTROSE 5%-WATER - 100 ML IVPB SCH (10:10)
[2017-07-05] MEDS: Methylnaltrexone Bromide 12 MG/0.6 ML KIT SQ SCH (10:10)
[2017-07-05] MEDS: LIPASE/PROTEASE/AMYLASE 6,000 UNIT CAPSULE PO SCH ×3 (10:10→17:07)
[2017-07-05] MEDS: RANOLAZINE E.R. 500 MG TABLET (FP) PO SCH ×2 (10:11→22:54)
[2017-07-05] MEDS: CARVEDILOL 3.125 MG TABLET (FP) PO SCH ×2 (10:11→22:53)
[2017-07-05] MEDS: PANTOPRAZOLE 20 MG TABLET (FP) PO SCH ×2 (10:11→22:53)
[2017-07-05] MEDS: ACETAMINOPHEN 325 MG TABLET (FP) PO PRN (10:11)
[2017-07-05] MEDS: TAMSULOSIN HCL 0.4 MG CAP.ER.24H (FP) PO SCH (10:12)
[2017-07-05] MEDS: ASPIRIN 81 MG CHEWABLE TABLETS PO SCH (10:12)
[2017-07-05] MEDS: LORATADINE 10 MG TABLET PO SCH (10:12)
[2017-07-05] MEDS: DULoxetine HCL 30 MG CAPSULE.DR (FP) PO SCH (10:12)
--- NOTE | 2017-07-05 11:05 | PN ---
Progress Note, Physician Chief Complaint: Sitting comfortable eating breakfast Good urine output over 2 liters History of Present Illness: 82 year old with a pmhx of htn, dm, hld, hypothyroidism, diverticulitis, paroxysmal afib, mild asc aortic aneurysm 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 Was at residential when noted PICC line was out and patient had confusion along with sob. In ER, patient c/o chest pain and sob. CXR with congestion. BNP elevated. Given IV lasix with improvement - Current Medication List Current Medications: Active Medications Acetaminophen (Tylenol -) 650 mg PO Q4H PRN PRN Reason: FEVER OR PAIN Last Admin: 07/05/17 10:11 Dose: 650 mg Alprazolam (Xanax -) 0.25 mg PO BID PRN PRN Reason: ANXIETY Aspirin (Asa -) 81 mg PO DAILY [facility] Last Admin: 07/05/17 10:12 Dose: 81 mg Atorvastatin Calcium (Lipitor -) 80 mg PO HS MANAN Last Admin: 07/04/17 22:28 Dose: 80 mg Carvedilol (Coreg -) 3.125 mg PO BID MANAN Last Admin: 07/05/17 10:11 Dose: 3.125 mg Duloxetine HCl (Cymbalta -) 60 mg PO DAILY MANAN Last Admin: 07/05/17 10:12 Dose: 60 mg Fentanyl (Duragesic 12mcg Patch -) 1 patch TD Q72H MANAN Stop: 07/10/17 15:17 Last Admin: 07/03/17 15:57 Dose: 1 patch Furosemide (Lasix Injection -) 60 mg IVPUSH BID@0600,1400 MANAN Last Admin: 07/05/17 06:49 Dose: 60 mg IV Flush (Picc Line Flush) 8 ml IVPUSH PRN PRN PRN Reason: Protocol Ceftriaxone Sodium 2 gm/ (Dextrose) 100 mls @ 200 mls/hr IVPB DAILY MANAN Last Admin: 07/05/17 10:10 Dose: 200 mls/hr Ampicillin Sodium 2 gm/ Sodium (Chloride) 100 mls @ 200 mls/hr IVPB Q4H-IV MANAN Last Admin: 10/12/17 10:11 Dose: 200 mls/hr Insulin Detemir (Levemir Vial) 30 units SQ BID@0700,2200 [facility] Last Admin: 07/05/17 06:50 Dose: 30 units Levothyroxine Sodium (Synthroid -) 100 mcg PO DAILY@0700 [facility] Last Admin: 07/05/17 06:50 Dose: 100 mcg Loratadine (Claritin -) 10 mg PO DAILY [facility] Last Admin: 07/05/17 10:12 Dose: 10 mg Methylnaltrexone [place] (Relistor -) 12 mg SQ DAILY [facility] Last Admin: 07/05/17 10:10 Dose: 12 mg Miscellaneous (Duragesic Patch Waste) 1 each TD PRN PRN PRN Reason: PAIN Montelukast Sodium (Singulair -) 10 mg PO HS [facility] Last Admin: 07/04/17 22:28 Dose: 10 mg Oxycodone HCl (Roxicodone -) 5 mg PO Q6H PRN PRN Reason: PAIN Pancrelipase (Creon Dr 6,000 Units Capsule) 1 cap PO TIDCM [facility] Last Admin: 07/05/17 10:10 Dose: 1 cap Pantoprazole Sodium (Protonix -) 20 mg PO BID [facility] Last Admin: 07/05/17 10:11 Dose: 20 mg Ranolazine (Ranexa -) 500 mg PO BID [facility] Last Admin: 07/05/17 10:11 Dose: 500 mg Tamsulosin HCl (Flomax -) 0.4 mg PO DAILY@0830 [facility] Last Admin: 07/05/17 10:12 Dose: 0.4 mg Warfarin Sodium (Coumadin -) 3 mg PO DAILY@1800 [facility] Last Admin: 07/04/17 17:31 Dose: Not Given - Objective Vital Signs: Vital Signs Temperature 98.2 F 07/05/17 09:00 Pulse Rate 56 L 07/05/17 09:00 Respiratory Rate 20 07/05/17 09:00 Blood Pressure 124/66 07/05/17 09:00 O2 Sat by Pulse Oximetry (%) 98 07/04/17 21:00 Constitutional: Yes: No Distress Cardiovascular: Yes: Bradycardia, JVD, S1, S2. No: Bruit Respiratory: Yes: Diminished (b/l bases) Gastrointestinal: Yes: Normal Bowel Sounds, Soft Edema: Yes Edema: LLE: 1+, RLE: 1+ Labs: CBC, BMP 07/05/17 06:15 07/05/17 06:15 INR, PTT INR 2.14 (0.82-1.09) H D 07/05/17 06:15 Problem List - Problems (1) CAD in [place] artery Code(s): I25.10 - ATHSCL HEART DISEASE OF [place] CORONARY ARTERY W/O ANG PCTRS (2) CHF (congestive heart failure) Code(s): I50.9 - HEART FAILURE, UNSPECIFIED Qualifiers: Congestive heart failure type: unspecified congestive heart failure type Congestive heart failure chronicity: acute on chronic Qualified Code(s ): I50.9 - Heart failure, unspecified; I50.9 - Heart failure, unspecified; I50.9 - Heart failure, unspecified; I50.9 - Heart failure, unspecified Assessment/Plan 82 year old with a pmhx of htn, dm, hld, hypothyroidism, diverticulitis, paroxysmal afib, mild asc aortic aneurysm 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 Was at residential when noted PICC line was out and patient had confusion along with sob. In ER, patient c/o chest pain and sob. CXR with congestion. BNP elevated. Given IV lasix with improvement 1) Acute on chronic systolic CHF Known LVEF 35% with ischemic CM -On low dose carvedilol 3.125mg. Will monitor on tele and if can tolerate low dose beta chencho. BP will not allow at this time but if tolerates in future amrita-i/arb -Volume overloaded but diuresing well Furosemide 60mg IV q12 Monitor lytes, weights, I/O's and replete K if needed 2) CAD No acute ischemic ecg changes. On high dose statin On aspirin/brillinta/coumadin. See if any reason why he is on triple therapy Can stop ranexa 3) Afib In sinus rhythm Will continue carvedilol if tolerates it On coumadin goal INR 2-3
[2017-07-05 15:32] LABS: BASOPHIL 0.7 % (0-2.0); EOSINOPHIL 4.3 % (0-4.5); MCH 27.5 pg (25.7-33.7); MCHC 32.8 g/dl (32.0-35.9); MEAN CELL VOLUME 83.7 fl (80-96); MEAN PLT VOLUME 9.1 fl (7.5-11.1); NEUTROPHILS 80.8 % (42.8-82.8); PLATELET COUNT 307 K/MM3 (134-434); RDW 18.2 % (11.9-15.9); WHITE BLOOD COUNT 10.3 K/mm3 (4.0-10.0)
[2017-07-05 16:03] LABS: ALBUMIN 2.3 g/dl (3.4-5.0); ANION GAP 9 (8-16); CO2 31 mmol/L (21-32); CREATININE 1.3 mg/dL (0.7-1.3); GLUCOSE,RANDOM 240 mg/dL (74-106); SGOT/AST 12 U/L (15-37); SGPT/ALT 15 U/L (12-78)
[2017-07-05 16:05] LABS: ALK PHOS 111 U/L (45-117); BILIRUBIN,TOTAL 0.3 mg/dL (0.2-1.0); TOT PROT 6.7 g/dl (6.4-8.2)
[2017-07-05] MEDS: NYSTATIN POWDER 100,000 UNITS/GM - 15 GM TOPICAL POWDER TP SCH (17:06)
[2017-07-05] MEDS: WARFARIN NA 3 MG TABLET PO SCH (17:06)
--- NOTE | 2017-07-05 22:02 | CONSULT ---
Consult - text type - Consultation Consultation Note: NEUROLOGY CONSULTATION is greatly appreciated: This 82 yo man with complex medical history of HTN, DM, Chol, ASHD, AFib , COPD and "Dementia" is maintained on Insulins, carvedilol, atorvastatin, coumadin, spironolactone, amylase,, singulair, albuterol, renexa, brilinta. S/P left Tib-fib fracture after a fall requiring ORIF (07/09) complicated by osteomyelitis beginning in the spring and diagnosed here in May with enterococcal sepsis. S/P Pic placement and IV ampicillin and ceftriaxone at [facility] but apparently became increasingly confused and pulled out the central line. CT of Head (reviewed): Diffuse atrophy, ex vacuo hydrocephalus and diffuse microvascular changes. No acute changes. Admission labs sig for TSH = 27.1. Started on L-Thyroxin 100 mg today. GREGORY: Obese. Neck supple. No bruits, Diffuse, scattered abrasions and ecchymoses. NEURO: Awake, alert, cooperative but confused. Ox "[place] office", no , 2006. Full shafer. No facial. Full EOM's No drift. Minimal cogwheeling. Areflexic in legs. Plantars silent No vibration in feet. IMP: 1. Moderately severe, B/L cerebral dysfunction (OMS, Chronic features). 2. 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 Diabetic peripheral neuropathy with chronic ataxia SUUGEST: Agree with thyroid Rx. Endocrine consultation. Check B12, ESR, CRP, B1, ammonia levels and repeat TSH in a few days. Thiamine Rx if B1 is low. Rx of infection as per Dr. Savage. Neuro f/u for Rx of chronic OMS in 2 weeks. Thank you very much, Fan Hinton MD
[2017-07-05] MEDS: ATORVASTATIN CA 80 MG TABLET (FP) PO SCH (22:53)
[2017-07-05] MEDS: MONTELUKAST NA 10 MG TABLET PO SCH (22:53)
--- NOTE | 2017-07-05 23:24 | CONSULT ---
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 No: Alzheimer's Cardio/Vascular: Yes: Aneurysm (mild ascending aortic aneurysm (4.2 cm) per chest CT), CAD (stents x2 in 2010; thrombectomy & PCI of proximal and mid LAD with Promus Premier stents and PTCA of D1 on 12/18/15 at [facility] for acute/ subacute anteroseptal [place]), HTN, Hyperlipdemia, Other (ischemic cardiomyopathy ( LVEF 34% per 02/16/16 nuclear study)) Gastrointestinal: Yes: Constipation, Diverticulosis Musculoskeletal: Yes: Other (rib fx's right) Endocrine: Yes: Diabetes Mellitus, Hypothyroidism - Past Surgical History Past Surgical History: Yes: Arthrosocopy (Right knee arthroscopy w/ partial medial and lateral meniscectomy 09/01/15), Colectomy - Alcohol/Substance Use Hx Alcohol Use: No History of Substance Use: reports: None - Smoking History Smoking history: Unknown if ever smoked Have you smoked in the past 12 months: No Aproximately how many cigarettes per day: 0 - Social History Usual Living Arrangement: Prison (since last d/c) 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 History of Recent Travel: No Home Medications - Allergies Allergies/Adverse Reactions: Allergies Allergy/AdvReac Type Severity Reaction Status Date / Time No Known Drug Allergies Allergy Verified 07/03/17 12:43 - Home Medications Home Medications: Ambulatory Orders Acetaminophen [Pain Relief] 650 mg PO PRN PRN 07/29/16 Albuterol 2.5/Ipratropium 0.5 [Duoneb -] 1 neb NEB Q4H PRN 07/29/16 Alprazolam [Xanax] 0.25 mg PO BID 07/29/16 Atorvastatin Ca [Lipitor] 80 mg PO HS 07/29/16 Bacitracin - [Bacitracin Topical Ointment -] 1 applic TP DAILY 07/29/16 Carvedilol 3.125 mg PO BID 07/29/16 Cetirizine HCl [Zyrtec -] 10 mg PO DAILY 07/29/16 Duloxetine HCl [Cymbalta] 60 mg PO DAILY 07/29/16 Gabapentin 200 mg PO BID 07/29/16 Lipase/Protease/Amylase [Creon Dr 6,000 Units Capsule] 1 cap PO TID 07/29/16 Methylnaltrexone [place] [Relistor] 12 mg SQ DAILY 07/29/16 Montelukast Na [Singulair -] 10 mg PO HS 07/29/16 Omeprazole 20 mg PO BID 07/29/16 Polyethylene Glycol 3350 [Miralax 119 gm Btl -] 17 gm PO DAILY 07/29/16 Tamsulosin HCl [Flomax] 0.4 mg PO DAILY 07/29/16 Ticagrelor [Brilinta] 90 mg PO BID 07/29/16 Aspirin Coated [Ecotrin -] 81 mg PO DAILY tablet.ec 08/04/16 Ranolazine [Ranexa -] 500 mg PO BID tab 08/04/16 Insulin (Levemir) [Levemir Vial] 25 units SQ BIDI ml 10/10/16 Spironolactone [Aldactone -] 25 mg PO DAILY #30 tablet 10/10/16 Warfarin Na [Coumadin -] 5 mg PO DAILY@1800 #20 tablet 10/10/16 Acetaminophen [Tylenol .Regular Strength -] 650 mg PO Q4H PRN #0 tablet Albuterol 0.083% Nebulizer Gloria [Ventolin 0.083% Nebulizer Soln -] 1 amp NEB QIDR amp 06/21/17 Insulin (Levemir) [Levemir Vial] 42 units SQ BID@07,22 ml 06/21/17 Insulin Sliding Scale [Novolog Vial Sliding Scale -] 1 vial SQ ACHS units 06/21 Iron Sucrose Injection [Venofer Injection -] 300 mg IVPB DAILY vial 06/21/17 Ampicillin - [Ampicillin 2 gm Ivpb (Pre-Docked)] 2 gm IVPB DAILY 07/03/17 Ceftriaxone Na/Dextrose,Iso [Ceftriaxone 2 gm Piggyback] 2 gm IV DAILY 07/03/17 Famotidine [Pepcid] 20 mg PO DAILY 07/03/17 Review of Systems Unable to obtain ROS, reason: confused unable to obtain Physical Exam Vital Signs: Vital Signs Temperature 98.4 F 07/05/17 17:00 Pulse Rate 56 L 07/05/17 17:00 Respiratory Rate 20 07/05/17 17:00 Blood Pressure 108/46 07/05/17 17:00 O2 Sat by Pulse Oximetry (%) 98 07/05/17 09:00 Constitutional: Yes: Anxious Eyes: Yes: EOM Intact HENT: Yes: Normocephalic Neck: Yes: Trachea Midline Cardiovascular: Yes: Regular Rate and Rhythm, Pulse Irregular Respiratory: Yes: CTA Bilaterally Gastrointestinal: Yes: Normal Bowel Sounds ...Rectal Exam: Yes: Deferred Renal/: Yes: WNL Breast(s): Yes: WNL Musculoskeletal: Yes: WNL, Joint Swelling, Muscle Weakness Extremities: Yes: WNL Edema: Yes Edema: LLE: 1+, RLE: 1+ Neurological: Yes: Alert, Unsteady Gait, Weakness Labs: CBC, BMP 07/05/17 14:45 07/05/17 14:45 Problem List - Problems (1) ASHD (arteriosclerotic heart disease) Code(s): I25.10 - ATHSCL HEART DISEASE OF [place] CORONARY ARTERY W/O ANG PCTRS (2) CAD in [place] artery Code(s): I25.10 - ATHSCL HEART DISEASE OF [place] CORONARY ARTERY W/O ANG PCTRS (3) Chest pain Code(s): R07.9 - CHEST PAIN, UNSPECIFIED Qualifiers: Chest pain type: unspecified Qualified Code(s): R07.9 - Chest pain, unspecified; R07.9 - Chest pain, unspecified (4) Osteomyelitis Code(s): M86.9 - OSTEOMYELITIS, UNSPECIFIED Assessment/Plan Current Active Problems ASHD (arteriosclerotic heart disease) (Acute) CAD in [place] artery (Acute) CHF (congestive heart failure) (Acute) Chest pain (Acute) Encephalopathy (Acute) Hemoglobin drop (Acute) Osteomyelitis (Acute) Pleural effusion (Acute) diabetes mellitus hyperglycemia insulin resistant hypothyroidism tenisha thyroidits Abnormal Lab Results 07/05/17 07/05/17 07/05/17 06:15 06:15 06:15 WBC RBC 3.67 L Hgb 9.9 L D Hct 31.2 L MCHC 31.8 L RDW 18.2 H Eosinophils % 7.4 H ESR PT with INR 24.20 H INR 2.14 H D Sodium Chloride Random Glucose 127 H Calcium 7.8 L AST Total Protein 6.2 L Albumin 2.1 L 07/05/17 07/05/17 07/05/17 06:15 14:45 14:45 WBC 10.3 H D RBC 3.80 L Hgb 10.4 L Hct 31.8 L MCHC RDW 18.2 H Eosinophils % ESR 65 H PT with INR INR Sodium 135 L Chloride 95 L Random Glucose 240 H D Calcium 8.0 L AST 12 L Total Protein Albumin 2.3 L plan: Current Medications Generic Name Dose Route Start Last Admin Trade Name Freq PRN Reason Stop Dose Admin Acetaminophen 650 mg 07/03/17 22:55 07/05/17 10:11 Tylenol - PO 650 mg Q4H PRN Administration FEVER OR PAIN Alprazolam 0.25 mg 07/03/17 15:19 07/05/17 22:53 Xanax - PO 0.25 mg BID PRN Administration ANXIETY Aspirin 81 mg 07/04/17 10:00 07/05/17 10:12 Asa - PO 81 mg DAILY MANAN Administration Atorvastatin Calcium 80 mg 07/03/17 22:00 07/05/17 22:53 Lipitor - PO 80 mg HS MANAN Administration Carvedilol 3.125 mg 07/03/17 22:00 07/05/17 22:53 Coreg - PO 3.125 mg BID MANAN Administration Duloxetine HCl 60 mg 07/04/17 10:00 07/05/17 10:12 Cymbalta - PO 60 mg DAILY MANAN Administration Fentanyl 1 patch 07/03/17 15:30 07/03/17 15:57 Duragesic 12mcg Patch - TD 07/10/17 15:17 1 patch Q72H MANAN Administration Furosemide 60 mg 07/04/17 08:23 07/05/17 14:30 Lasix Injection - IVPUSH 60 mg BID@0600,1400 MANAN Administration IV Flush 8 ml 07/03/17 14:11 Picc Line Flush IVPUSH PRN PRN Protocol Ceftriaxone Sodium 2 gm/ 100 mls @ 200 mls/hr 07/04/17 10:00 07/05/17 10:10 Dextrose IVPB 200 mls/hr DAILY MANAN Administration Ampicillin Sodium 2 gm/ Sodium 100 mls @ 200 mls/hr 07/04/17 10:00 07/05/17 22: 58 Chloride IVPB 200 mls/hr Q4H-IV MANAN Administration Insulin Aspart 1 vial 07/06/17 07:00 Novolog Vial Sliding Scale - SQ ACHS [facility] Protocol Insulin Detemir 30 units 07/03/17 22:00 07/05/17 22:54 Levemir Vial SQ 30 units BID@0700,2200 MANAN Administration Levothyroxine Sodium 100 mcg 07/05/17 07:00 07/05/17 06:50 Synthroid - PO 100 mcg DAILY@0700 MANAN Administration Loratadine 10 mg 07/04/17 10:00 07/05/17 10:12 Claritin - PO 10 mg DAILY MANAN Administration Methylnaltrexone [place] 12 mg 07/04/17 10:00 07/05/17 10:10 Relistor - SQ 12 mg DAILY MANAN Administration Miscellaneous 1 each 07/03/17 15:17 Duragesic Patch Waste TD PRN PRN PAIN Montelukast Sodium 10 mg 07/03/17 22:00 07/05/17 22:53 Singulair - PO 10 mg HS MANAN Administration Nystatin 1 applic 07/05/17 14:15 07/05/17 17:06 Nystop Powder - TP 1 applic DAILY MANAN Administration Oxycodone HCl 5 mg 07/03/17 22:55 Roxicodone - PO Q6H PRN PAIN Pancrelipase 1 cap 07/03/17 17:30 07/05/17 17:07 Cretorri Hayes 6,000 Units Capsule PO 1 cap TIDCM MANAN Administration Pantoprazole Sodium 20 mg 07/03/17 22:00 07/05/17 22:53 Protonix - PO 20 mg BID MANAN Administration Ranolazine 500 mg 07/03/17 22:00 07/05/17 22:54 Ranexa - PO 500 mg BID MANAN Administration Tamsulosin HCl 0.4 mg 07/04/17 08:30 07/05/17 10:12 Flomax - PO 0.4 mg DAILY@0830 MANAN Administration Warfarin Sodium 3 mg 07/03/17 18:00 07/05/17 17:06 Coumadin - PO 3 mg DAILY@1800 MANAN Administration synthroid dose titrate 125mcg daiy give alone
[2017-07-06] MEDS: AMPICILLIN - 2 GM in SODIUM CHLORIDE 100 ML IVPB SCH ×6 (03:00→22:58)
[2017-07-06] MEDS: FUROSEMIDE 40 MG/4 ML INJECTABLE VIAL IVPUSH SCH ×2 (06:43→14:10)
[2017-07-06] MEDS: INSULIN SLIDING SCALE (NOVOLOG) 1 VIAL SQ SCH ×4 (06:43→22:58)
[2017-07-06] MEDS: LEVOTHYROXINE NA 125 MCG TABLET (FP) PO SCH (06:43)
[2017-07-06] MEDS: INSULIN DETEMIR 100 UNITS/ML MDV SQ SCH ×2 (06:44→22:58)
[2017-07-06 07:22] LABS: BASOPHIL 0.9 % (0-2.0); EOSINOPHIL 5.2 % (0-4.5); MCH 27.3 pg (25.7-33.7); MCHC 32.6 g/dl (32.0-35.9); MEAN CELL VOLUME 83.7 fl (80-96); NEUTROPHILS 76.4 % (42.8-82.8); PLATELET COUNT 264 K/MM3 (134-434); RDW 17.7 % (11.9-15.9); WHITE BLOOD COUNT 8.4 K/mm3 (4.0-10.0)
[2017-07-06 07:36] LABS: ANION GAP 6 (8-16); CO2 34 mmol/L (21-32)
[2017-07-06 07:40] LABS: INR 1.58 (0.82-1.09); PROTHROMBIN TIME (PATIENT) 17.8 SEC (9.98-11.88)
[2017-07-06 07:43] LABS: ALBUMIN 2.2 g/dl (3.4-5.0); ALK PHOS 104 U/L (45-117); BILIRUBIN,TOTAL 0.3 mg/dL (0.2-1.0); CALCIUM 8.1 mg/dL (8.5-10.1); CREATININE 1.3 mg/dL (0.7-1.3); GLUCOSE,RANDOM 219 mg/dL (74-106); SGOT/AST 9 U/L (15-37); SGPT/ALT 12 U/L (12-78); TOT PROT 6.1 g/dl (6.4-8.2)
--- NOTE | 2017-07-06 07:49 | PN ---
Progress Note, Physician History of Present Illness: sob no cp CONFUSED - Current Medication List Current Medications: Active Medications Acetaminophen (Tylenol -) 650 mg PO Q4H PRN PRN Reason: FEVER OR PAIN Last Admin: 07/05/17 10:11 Dose: 650 mg Alprazolam (Xanax -) 0.25 mg PO BID PRN PRN Reason: ANXIETY Last Admin: 07/05/17 22:53 Dose: 0.25 mg Aspirin (Asa -) 81 mg PO DAILY [facility] Last Admin: 07/05/17 10:12 Dose: 81 mg Atorvastatin Calcium (Lipitor -) 80 mg PO HS MANAN Last Admin: 07/05/17 22:53 Dose: 80 mg Carvedilol (Coreg -) 3.125 mg PO BID [facility] Last Admin: 07/05/17 22:53 Dose: 3.125 mg Duloxetine HCl (Cymbalta -) 60 mg PO DAILY [facility] Last Admin: 07/05/17 10:12 Dose: 60 mg Fentanyl (Duragesic 12mcg Patch -) 1 patch TD Q72H [facility] Stop: 07/10/17 15:17 Last Admin: 07/03/17 15:57 Dose: 1 patch Furosemide (Lasix Injection -) 60 mg IVPUSH BID@0600,1400 [facility] Last Admin: 07/06/17 06:43 Dose: 60 mg IV Flush (Picc Line Flush) 8 ml IVPUSH PRN PRN PRN Reason: Protocol Ceftriaxone Sodium 2 gm/ (Dextrose) 100 mls @ 200 mls/hr IVPB DAILY [facility] Last Admin: 07/05/17 10:10 Dose: 200 mls/hr Ampicillin Sodium 2 gm/ Sodium (Chloride) 100 mls @ 200 mls/hr IVPB Q4H-IV MANAN Last Admin: 07/06/17 06:41 Dose: 200 mls/hr Insulin Aspart (Novolog Vial Sliding Scale -) 1 vial SQ ACHS MANAN PRN Reason: Protocol Last Admin: 07/06/17 06:43 Dose: 5 units Insulin Detemir (Levemir Vial) 30 units SQ BID@0700,2200 [facility] Last Admin: 07/06/17 06:44 Dose: 30 units Levothyroxine Sodium (Synthroid -) 125 mcg PO DAILY@0700 [facility] Last Admin: 07/06/17 06:43 Dose: 125 mcg Loratadine (Claritin -) 10 mg PO DAILY [facility] Last Admin: 07/05/17 10:12 Dose: 10 mg Methylnaltrexone [place] (Relistor -) 12 mg SQ DAILY [facility] Last Admin: 07/05/17 10:10 Dose: 12 mg Miscellaneous (Duragesic Patch Waste) 1 each TD PRN PRN PRN Reason: PAIN Montelukast Sodium (Singulair -) 10 mg PO HS [facility] Last Admin: 07/05/17 22:53 Dose: 10 mg Nystatin (Nystop Powder -) 1 applic TP DAILY [facility] Last Admin: 07/05/17 17:06 Dose: 1 applic Oxycodone HCl (Roxicodone -) 5 mg PO Q6H PRN PRN Reason: PAIN Pancrelipase (Creon Dr 6,000 Units Capsule) 1 cap PO TIDCM [facility] Last Admin: 07/05/17 17:07 Dose: 1 cap Pantoprazole Sodium (Protonix -) 20 mg PO BID [facility] Last Admin: 07/05/17 22:53 Dose: 20 mg Ranolazine (Ranexa -) 500 mg PO BID [facility] Last Admin: 07/05/17 22:54 Dose: 500 mg Tamsulosin HCl (Flomax -) 0.4 mg PO DAILY@0830 [facility] Last Admin: 07/05/17 10:12 Dose: 0.4 mg Warfarin Sodium (Coumadin -) 3 mg PO DAILY@1800 [facility] Last Admin: 07/05/17 17:06 Dose: 3 mg - Objective Vital Signs: Vital Signs Temperature 98.3 F 07/06/17 06:00 Pulse Rate 58 L 07/06/17 06:00 Respiratory Rate 20 07/06/17 06:00 Blood Pressure 106/65 07/06/17 06:00 O2 Sat by Pulse Oximetry (%) 97 07/05/17 21:00 Cardiovascular: Yes: S1, S2 Respiratory: Yes: Rales Gastrointestinal: Yes: Normal Bowel Sounds, Soft Edema: Yes Labs: INR, PTT INR 2.14 (0.82-1.09) H D 07/05/17 06:15 Assessment/Plan - Problems (1) CHF (congestive heart failure) Assessment/Plan: acute systolic heart failure echo done at [facility] show ejection fraction 25-30 percent tele cardio iv lasix 60 bid daily cxr and weights Code(s): I50.9 - HEART FAILURE, UNSPECIFIED Qualifiers: Congestive heart failure type: unspecified congestive heart failure type Congestive heart failure chronicity: acute on chronic Qualified Code(s ): I50.9 - Heart failure, unspecified; I50.9 - Heart failure, unspecified; I50.9 - Heart failure, unspecified; I50.9 - Heart failure, unspecified (2) ASHD (arteriosclerotic heart disease) Assessment/Plan: -on asa -?brilinta ranexa and coreg Code(s): I25.10 - ATHSCL HEART DISEASE OF [place] CORONARY ARTERY W/O ANG PCTRS (3) Anxiety Assessment/Plan: xanax Code(s): F41.9 - ANXIETY DISORDER, UNSPECIFIED (4) Atrial fibrillation Assessment/Plan: coreg check INR couamdin dosing for inr btw 2-3 Code(s): I48.91 - UNSPECIFIED ATRIAL FIBRILLATION (5) COPD (chronic obstructive pulmonary disease) Assessment/Plan: bronchodilators singulair claritn Code(s): J44.9 - CHRONIC OBSTRUCTIVE PULMONARY DISEASE, UNSPECIFIED (6) Constipation due to opioid therapy Assessment/Plan: relistor Code(s): K59.09 - OTHER CONSTIPATION T40.2X5A - ADVERSE EFFECT OF OTHER OPIOIDS, INITIAL ENCOUNTER (7) Diabetes mellitus, insulin dependent (IDDM), uncontrolled Assessment/Plan: levemir bid hga1c bgm lipid panel Code(s): E10.65 - TYPE 1 DIABETES MELLITUS WITH HYPERGLYCEMIA (8) Hypothyroid Assessment/Plan: tsh resume synthroid 100 Code(s): E03.9 - HYPOTHYROIDISM, UNSPECIFIED (9) Osteomyelitis Assessment/Plan: per [facility] discharge notes ampicilin 2grm q4 for 4 weeks till 08/11 rocephin 2gm bid for 4 weeks ID and ORTHO Code(s): M86.9 - OSTEOMYELITIS, UNSPECIFIED (10) Confusion Assessment/Plan: CT OF HEAD NAD NEURO NOTED--
[2017-07-06] MEDS: DULoxetine HCL 30 MG CAPSULE.DR (FP) PO SCH (09:19)
[2017-07-06] MEDS: TAMSULOSIN HCL 0.4 MG CAP.ER.24H (FP) PO SCH (09:19)
[2017-07-06] MEDS: LORATADINE 10 MG TABLET PO SCH (09:19)
[2017-07-06] MEDS: RANOLAZINE E.R. 500 MG TABLET (FP) PO SCH ×2 (09:19→22:53)
[2017-07-06] MEDS: LIPASE/PROTEASE/AMYLASE 6,000 UNIT CAPSULE PO SCH ×3 (09:19→16:36)
[2017-07-06] MEDS: PANTOPRAZOLE 20 MG TABLET (FP) PO SCH ×2 (09:19→22:53)
[2017-07-06] MEDS: CARVEDILOL 3.125 MG TABLET (FP) PO SCH ×2 (09:19→22:53)
[2017-07-06] MEDS: ASPIRIN 81 MG CHEWABLE TABLETS PO SCH (09:19)
[2017-07-06] MEDS: CEFTRIAXONE 2 GM in DEXTROSE 5%-WATER - 100 ML IVPB SCH (09:19)
[2017-07-06] MEDS: NYSTATIN POWDER 100,000 UNITS/GM - 15 GM TOPICAL POWDER TP SCH (09:20)
[2017-07-06] MEDS: Methylnaltrexone Bromide 12 MG/0.6 ML KIT SQ SCH (09:20)
--- NOTE | 2017-07-06 10:59 | PN ---
Progress Note, Physician Chief Complaint: Diuresing No complaints of sob History of Present Illness: 82 year old with a pmhx of htn, dm, hld, hypothyroidism, diverticulitis, paroxysmal afib, mild asc aortic aneurysm 4.2cm, and CAD s/p stents x2 in 2010 ( thrombectoy and PCI of proximal and mid LAD and PTCA D1 on 12/18/15 at [facility] for [place]al [place]) who has been treated recently for Leg cellulitis on IV abx. [facility] at [facility] when noted PICC line was out and patient had confusion along with sob. In ER, patient c/o chest pain and sob. CXR with congestion. BNP elevated. Given IV lasix with improvement - Current Medication List Current Medications: Active Medications Acetaminophen (Tylenol -) 650 mg PO Q4H PRN PRN Reason: FEVER OR PAIN Last Admin: 07/05/17 10:11 Dose: 650 mg Alprazolam (Xanax -) 0.25 mg PO BID PRN PRN Reason: ANXIETY Last Admin: 07/05/17 22:53 Dose: 0.25 mg Aspirin (Asa -) 81 mg PO DAILY [facility] Last Admin: 07/06/17 09:19 Dose: 81 mg Atorvastatin Calcium (Lipitor -) 80 mg PO HS [facility] Last Admin: 07/05/17 22:53 Dose: 80 mg Carvedilol (Coreg -) 3.125 mg PO BID [facility] Last Admin: 07/06/17 09:19 Dose: 3.125 mg Duloxetine HCl (Cymbalta -) 60 mg PO DAILY [facility] Last Admin: 07/06/17 09:19 Dose: 60 mg Fentanyl (Duragesic 12mcg Patch -) 1 patch TD Q72H [facility] Stop: 07/10/17 15:17 Last Admin: 07/03/17 15:57 Dose: 1 patch Furosemide (Lasix Injection -) 60 mg IVPUSH BID@0600,1400 [facility] Last Admin: 07/06/17 06:43 Dose: 60 mg IV Flush (Picc Line Flush) 8 ml IVPUSH PRN PRN PRN Reason: Protocol Ceftriaxone Sodium 2 gm/ (Dextrose) 100 mls @ 200 mls/hr IVPB DAILY [facility] Last Admin: 07/06/17 09:19 Dose: 200 mls/hr Ampicillin Sodium 2 gm/ Sodium (Chloride) 100 mls @ 200 mls/hr IVPB Q4H-IV [facility] Last Admin: 07/06/17 09:20 Dose: 200 mls/hr Insulin Aspart (Novolog Vial Sliding Scale -) 1 vial SQ ACHS [facility] PRN Reason: Protocol Last Admin: 07/06/17 06:43 Dose: 5 units Insulin Detemir (Levemir Vial) 30 units SQ BID@0700,2200 [facility] Last Admin: 07/06/17 06:44 Dose: 30 units Levothyroxine Sodium (Synthroid -) 125 mcg PO DAILY@0700 [facility] Last Admin: 07/06/17 06:43 Dose: 125 mcg Loratadine (Claritin -) 10 mg PO DAILY [facility] Last Admin: 07/06/17 09:19 Dose: 10 mg Methylnaltrexone [place] (Relistor -) 12 mg SQ DAILY [facility] Last Admin: 07/06/17 09:20 Dose: 12 mg Miscellaneous (Duragesic Patch Waste) 1 each TD PRN PRN PRN Reason: PAIN Montelukast Sodium (Singulair -) 10 mg PO HS [facility] Last Admin: 07/05/17 22:53 Dose: 10 mg Nystatin (Nystop Powder -) 1 applic TP DAILY [facility] Last Admin: 07/06/17 09:20 Dose: 1 applic Oxycodone HCl (Roxicodone -) 5 mg PO Q6H PRN PRN Reason: PAIN Pancrelipase (Creon Dr 6,000 Units Capsule) 1 cap PO TIDCM [facility] Last Admin: 07/06/17 09:19 Dose: 1 cap Pantoprazole Sodium (Protonix -) 20 mg PO BID [facility] Last Admin: 07/06/17 09:19 Dose: 20 mg Ranolazine (Ranexa -) 500 mg PO BID [facility] Last Admin: 07/06/17 09:19 Dose: 500 mg Tamsulosin HCl (Flomax -) 0.4 mg PO DAILY@0830 [facility] Last Admin: 07/06/17 09:19 Dose: 0.4 mg Ticagrelor (Brilinta) 60 mg PO BID [facility] Warfarin Sodium (Coumadin -) 5 mg PO DAILY@1800 [facility] - Objective Vital Signs: Vital Signs Temperature 98.3 F 07/06/17 06:00 Pulse Rate 58 L 07/06/17 06:00 Respiratory Rate 20 07/06/17 06:00 Blood Pressure 106/65 07/06/17 06:00 O2 Sat by Pulse Oximetry (%) 97 07/05/17 21:00 Constitutional: Yes: No Distress Neck: Yes: Supple Cardiovascular: Yes: Regular Rate and Rhythm, S1, S2 Respiratory: Yes: CTA Bilaterally Edema: LLE: 1+, RLE: 1+ Labs: CBC, BMP 07/06/17 05:10 07/06/17 05:10 INR, PTT INR 1.58 (0.82-1.09) H 07/06/17 05:10 Problem List - Problems (1) CAD in [place] artery Code(s): I25.10 - ATHSCL HEART DISEASE OF [place] CORONARY ARTERY W/O ANG PCTRS (2) CHF (congestive heart failure) Code(s): I50.9 - HEART FAILURE, UNSPECIFIED Qualifiers: Congestive heart failure type: unspecified congestive heart failure type Congestive heart failure chronicity: acute on chronic Qualified Code(s ): I50.9 - Heart failure, unspecified; I50.9 - Heart failure, unspecified; I50.9 - Heart failure, unspecified; I50.9 - Heart failure, unspecified Assessment/Plan 82 year old with a pmhx of htn, dm, hld, hypothyroidism, diverticulitis, paroxysmal afib, mild asc aortic aneurysm 4.2cm, and CAD s/p stents x2 in 2010 ( thrombectoy and PCI of proximal and mid LAD and PTCA D1 on 12/18/15 at [facility] [place]al [place]) who has been treated recently for Leg cellulitis on IV abx. [facility] at [facility] when noted P[facility] line was out and patient had confusion along with sob. In ER, patient c/o chest pain and sob. CXR with congestion. BNP elevated. Given IV lasix with improvement 1) Acute on chronic systolic CHF Known LVEF 35% with ischemic CM -On low dose carvedilol 3.125mg. Will monitor on tele and if can tolerate low dose beta chencho. BP will not allow at this time but if tolerates in future amrita-i/arb -Volume overloaded but diuresing well Furosemide 60mg IV q12 Monitor lytes, weights, I/O's and replete K if needed 2) CAD No acute ischemic ecg changes. On high dose statin On aspirin/brillinta/coumadin. See if any reason why he is on triple therapy and if no particular reason stop brillinta and continue aspirin/coumadin Can stop ranexa 3) Afib In sinus rhythm Will continue carvedilol if tolerates it On coumadin goal INR 2-3 4) Endo Treat thyroid disease as per primary team which is likely contributing to patients edema/volume overload.
[2017-07-06] MEDS: TICAGRELOR 60 MG TABLET PO SCH ×2 (11:41→22:53)
[2017-07-06] MEDS: ACETAMINOPHEN 325 MG TABLET (FP) PO PRN ×2 (14:15→20:34)
[2017-07-06] MEDS: fentaNYL 12mcg/hr PATCH.TD72 TD SCH (16:35)
[2017-07-06] MEDS ORDERED: WARFARIN NA 5 MG TABLET (UD) PO SCH (18:00)
[2017-07-06] MEDS: ATORVASTATIN CA 80 MG TABLET (FP) PO SCH (22:53)
[2017-07-06] MEDS: MONTELUKAST NA 10 MG TABLET PO SCH (22:53)
[2017-07-06] MEDS ORDERED: PT OWN MED DRAWER 7, Y5N ONE (22:57)
[2017-07-07] MEDS ORDERED: PT OWN MED DRAWER 7, Y5N ONE ×5 (02:20→22:17)
[2017-07-07] MEDS: AMPICILLIN - 2 GM in SODIUM CHLORIDE 100 ML IVPB SCH ×6 (02:34→22:38)
[2017-07-07] MEDS: LEVOTHYROXINE NA 125 MCG TABLET (FP) PO SCH (06:33)
[2017-07-07] MEDS: FUROSEMIDE 40 MG/4 ML INJECTABLE VIAL IVPUSH SCH ×2 (06:33→14:12)
[2017-07-07] MEDS: INSULIN DETEMIR 100 UNITS/ML MDV SQ SCH ×2 (06:33→22:32)
[2017-07-07] MEDS: INSULIN SLIDING SCALE (NOVOLOG) 1 VIAL SQ SCH ×4 (06:38→22:32)
[2017-07-07] MEDS: ACETAMINOPHEN 325 MG TABLET (FP) PO PRN ×2 (09:05→18:59)
[2017-07-07] MEDS: RANOLAZINE E.R. 500 MG TABLET (FP) PO SCH ×2 (09:07→22:31)
[2017-07-07] MEDS: ASPIRIN 81 MG CHEWABLE TABLETS PO SCH (09:07)
[2017-07-07] MEDS: LORATADINE 10 MG TABLET PO SCH (09:07)
[2017-07-07] MEDS: DULoxetine HCL 30 MG CAPSULE.DR (FP) PO SCH (09:07)
[2017-07-07] MEDS: PANTOPRAZOLE 20 MG TABLET (FP) PO SCH ×2 (09:08→22:31)
[2017-07-07] MEDS: CARVEDILOL 3.125 MG TABLET (FP) PO SCH ×2 (09:08→22:31)
[2017-07-07] MEDS: TAMSULOSIN HCL 0.4 MG CAP.ER.24H (FP) PO SCH (09:08)
[2017-07-07] MEDS: TICAGRELOR 60 MG TABLET PO SCH ×2 (10:35→22:31)
[2017-07-07] MEDS: LIPASE/PROTEASE/AMYLASE 6,000 UNIT CAPSULE PO SCH ×3 (10:35→18:11)
[2017-07-07] MEDS: CEFTRIAXONE 2 GM in DEXTROSE 5%-WATER - 100 ML IVPB SCH (10:37)
[2017-07-07] MEDS: Methylnaltrexone Bromide 12 MG/0.6 ML KIT SQ SCH (10:37)
[2017-07-07] MEDS: NYSTATIN POWDER 100,000 UNITS/GM - 15 GM TOPICAL POWDER TP SCH (10:37)
--- NOTE | 2017-07-07 10:46 | CONS ---
DATE OF CONSULTATION: 07/06/2017 HISTORY OF PRESENT ILLNESS: The patient is an 82-year-old man with an extensive past medical history including diabetes as well as left lower extremity tibia and fibular fracture status post ORIF in 2015 and subsequent osteomyelitis in the spring who was readmitted from a snf facility after hospitalization both at [facility] from approximately June 18 to June 22, 2017 as well as [facility] with enterococcal sepsis. The patient was diagnosed with sepsis. He had undergone x-ray back on June 18, which showed intramedullary linda in the tibia, healing fracture with callus formation midshaft of the tibia-fibula, healed fracture of the distal left fibula. The patient underwent a PICC line placement and was treated with IV antibiotics and subsequently transferred to [facility]. From [facility], [facility] for [facility]. He pulled out his PICC line and became confused. He was brought back to [facility] on July 03. He had slight elevation of WBCs. His INR was near therapeutic at 2.14, but his WBCs were slightly elevated at 10.3. He had a low albumin of 2.3 and an elevated potassium of 5.4. Most recent blood work on July 06 showed normalization of WBCs to 8.4, hemoglobin stable at 10, platelet count 264, INR slightly sub therapeutic at 1.58 for his atrial fibrillation. He continues to have a low albumin. The patient was seen by Physical Therapy when he was here previously and ambulated 12 feet with moderate assistance favoring the left lower extremity. He also underwent a CAT scan, which showed a chronic left occipital infarct but no acute intracranial pathology. He is yet to be seen by Physical Therapy since his readmission. The patient himself seems much more aware of his surroundings and why he is here. He answers questions appropriately. Also, the patient is noted to have a TSH of 27 and had been started on L-Thyroxine yesterday. The patient is referred for rehabilitation evaluation. He also had a hemoglobin A1C of 9.9 and elevated CRP of 1.9. PAST MEDICAL/SURGICAL HISTORY: Atrial fibrillation on Coumadin, COPD, atherosclerotic heart disease, hypercholesterolemia, diabetes, possible diabetic peripheral neuropathy, hypertension, chronic anemia, left lower extremity tibia-fibula fracture status post ORIF as well as osteomyelitis, ischemic cardiomyopathy with ejection fraction in January 2016 of 34%. SOCIAL HISTORY: Per the patient, he lives with his in a private house without any stairs to enter. Premorbidly, he used a walker. Current function, he was walking while at [facility] with a walker and assistance. REVIEW OF SYSTEMS: He has some lightheadedness when he gets up but no headache, no eusebio dizziness, no blurred vision, double vision, or change in vision, no nausea or vomiting, difficulty swallowing, difficulty chewing. No chest pain but he does get short of breath with exertion. No abdominal discomfort. He is unsure when he moved his bowels. He thinks yesterday. States he is urinating fairly well. He has some swelling in the lower extremities, pain in the left lower extremity, but no other complaints currently of any joint arthralgias. No fever or chills. He is unsure whether he has lost any weight or gained weight. PHYSICAL EXAMINATION: General: The patient is seen lying in bed. He is awake and seems alert and cooperative. Extremities: Cranial nerves 2-12 appear grossly intact. He has good strength and range throughout his upper extremities without any focal weakness. In the lower extremities, he has at least antigravity strength in the hip girdle 3+/5, 4/5 knee extensors, and fairly good dorsiflexion and plantar flexion strength. He does have diminished sensation to pinprick distally in the lower extremities and absent reflexes in the lower extremities with depressed vibratory sensation distally in the lower extremities. Better sensation in the upper extremities. Unable to stand or ambulate him at this point. IMPRESSION: 1. Deficits in mobility and activities of daily living. 2. Deconditioning. 3. Hypothyroidism with elevated thyroid-stimulating hormone. 4. Subtherapeutic international normalized ratio with a history of atrial fibrillation. 5. Status post leukocytosis. 6. Anemia. 7. Hypoalbuminemia. 8. Elevated body mass index. 9. Diabetes with diabetic peripheral neuropathy. 10. History of ischemic cardiomyopathy and arteriosclerotic heart disease. 11. History of hypertension. 12. Status post altered mental status, possible mild underlying dementia. PLAN/SUGGESTION: 1. Physical therapy at the bedside for bed mobility transfers, gait is appropriate. 2. Out of bed to chair. 3. Monitor international normalized ratio and alter warfarin as appropriate. 4. Skin precautions. 5. Cardiopulmonary precaution. 6. Edema control in the lower extremities. 7. Return to nursing facility once medically stable. Thank you very much for this referral. ADRIEL LABOY M.D. [id number]
--- NOTE | 2017-07-07 11:29 | PN ---
Progress Note, Physician History of Present Illness: sob no cp CONFUSED - Current Medication List Current Medications: Active Medications Acetaminophen (Tylenol -) 650 mg PO Q4H PRN PRN Reason: FEVER OR PAIN Last Admin: 07/07/17 09:05 Dose: 650 mg Aspirin (Asa -) 81 mg PO DAILY [facility] Last Admin: 07/07/17 09:07 Dose: 81 mg Atorvastatin Calcium (Lipitor -) 80 mg PO HS [facility] Last Admin: 07/06/17 22:53 Dose: 80 mg Carvedilol (Coreg -) 3.125 mg PO BID [facility] Last Admin: 07/07/17 09:08 Dose: 3.125 mg Duloxetine HCl (Cymbalta -) 60 mg PO DAILY [facility] Last Admin: 07/07/17 09:07 Dose: 60 mg Fentanyl (Duragesic 12mcg Patch -) 1 patch TD Q72H [facility] Stop: 07/10/17 15:17 Last Admin: 07/06/17 16:35 Dose: 1 patch Furosemide (Lasix Injection -) 80 mg IVPUSH BID@0600,1400 [facility] IV Flush (Picc Line Flush) 8 ml IVPUSH PRN PRN PRN Reason: Protocol Ceftriaxone Sodium 2 gm/ (Dextrose) 100 mls @ 200 mls/hr IVPB DAILY [facility] Last Admin: 07/07/17 10:37 Dose: 200 mls/hr Ampicillin Sodium 2 gm/ Sodium (Chloride) 100 mls @ 200 mls/hr IVPB Q4H-IV [facility] Last Admin: 07/07/17 10:36 Dose: 200 mls/hr Insulin Aspart (Novolog Vial Sliding Scale -) 1 vial SQ ACHS [facility] PRN Reason: Protocol Last Admin: 07/07/17 06:38 Dose: Not Given Insulin Detemir (Levemir Vial) 30 units SQ BID@0700,2200 [facility] Last Admin: 07/07/17 06:33 Dose: 30 units Levothyroxine Sodium (Synthroid -) 125 mcg PO DAILY@0700 [facility] Last Admin: 07/07/17 06:33 Dose: 125 mcg Loratadine (Claritin -) 10 mg PO DAILY [facility] Last Admin: 07/07/17 09:07 Dose: 10 mg Methylnaltrexone [place] (Relistor -) 12 mg SQ DAILY [facility] Last Admin: 07/07/17 10:37 Dose: 12 mg Miscellaneous (Duragesic Patch Waste) 1 each TD PRN PRN PRN Reason: PAIN Last Admin: 07/06/17 18:28 Dose: 1 each Montelukast Sodium (Singulair -) 10 mg PO HS [facility] Last Admin: 07/06/17 22:53 Dose: 10 mg Nystatin (Nystop Powder -) 1 applic TP DAILY [facility] Last Admin: 07/07/17 10:37 Dose: 1 applic Pancrelipase (Creon Dr 6,000 Units Capsule) 1 cap PO TIDCM [facility] Last Admin: 07/07/17 10:35 Dose: 1 cap Pantoprazole Sodium (Protonix -) 20 mg PO BID [facility] Last Admin: 07/07/17 09:08 Dose: 20 mg Ranolazine (Ranexa -) 500 mg PO BID [facility] Last Admin: 07/07/17 09:07 Dose: 500 mg Tamsulosin HCl (Flomax -) 0.4 mg PO DAILY@0830 [facility] Last Admin: 07/07/17 09:08 Dose: 0.4 mg Ticagrelor (Brilinta) 60 mg PO BID [facility] Last Admin: 07/07/17 10:35 Dose: 60 mg Warfarin Sodium (Coumadin -) 5 mg PO DAILY@1800 [facility] Last Admin: 07/06/17 18:21 Dose: 5 mg - Objective Vital Signs: Vital Signs Temperature 98.1 F 07/07/17 10:00 Pulse Rate 62 07/07/17 10:00 Respiratory Rate 20 07/07/17 10:00 Blood Pressure 120/80 07/07/17 10:00 O2 Sat by Pulse Oximetry (%) 98 07/06/17 21:00 Cardiovascular: Yes: S1, S2 Respiratory: Yes: Diminished Gastrointestinal: Yes: Normal Bowel Sounds, Soft Labs: CBC, BMP 07/06/17 05:10 07/06/17 05:10 INR, PTT INR 1.58 (0.82-1.09) H 07/06/17 05:10 Assessment/Plan - Problems (1) CHF (congestive heart failure) Assessment/Plan: acute systolic heart failure echo done at [facility] show ejection fraction 25-30 percent tele cardio increase iv lasix 80 bid daily cxr and weights Code(s): I50.9 - HEART FAILURE, UNSPECIFIED Qualifiers: Congestive heart failure type: unspecified congestive heart failure type Congestive heart failure chronicity: acute on chronic Qualified Code(s ): I50.9 - Heart failure, unspecified; I50.9 - Heart failure, unspecified; I50.9 - Heart failure, unspecified; I50.9 - Heart failure, unspecified (2) ASHD (arteriosclerotic heart disease) Assessment/Plan: -on asa -?brilinta ranexa and coreg Code(s): I25.10 - ATHSCL HEART DISEASE OF [place] CORONARY ARTERY W/O ANG PCTRS (3) Anxiety Assessment/Plan: xanax Code(s): F41.9 - ANXIETY DISORDER, UNSPECIFIED (4) Atrial fibrillation Assessment/Plan: coreg check INR couamdin dosing for inr btw 2-3 Code(s): I48.91 - UNSPECIFIED ATRIAL FIBRILLATION (5) COPD (chronic obstructive pulmonary disease) Assessment/Plan: bronchodilators singulair claritn Code(s): J44.9 - CHRONIC OBSTRUCTIVE PULMONARY DISEASE, UNSPECIFIED (6) Constipation due to opioid therapy Assessment/Plan: relistor Code(s): K59.09 - OTHER CONSTIPATION T40.2X5A - ADVERSE EFFECT OF OTHER OPIOIDS, INITIAL ENCOUNTER (7) Diabetes mellitus, insulin dependent (IDDM), uncontrolled Assessment/Plan: levemir bid hga1c bgm lipid panel Code(s): E10.65 - TYPE 1 DIABETES MELLITUS WITH HYPERGLYCEMIA (8) Hypothyroid Assessment/Plan: tsh resume synthroid 100 Code(s): E03.9 - HYPOTHYROIDISM, UNSPECIFIED (9) Osteomyelitis Assessment/Plan: per [facility] discharge notes ampicilin 2grm q4 for 4 weeks till 08/11 rocephin 2gm bid for 4 weeks ID and ORTHO Code(s): M86.9 - OSTEOMYELITIS, UNSPECIFIED (10) Confusion Assessment/Plan: CT OF HEAD NAD NEURO NOTED--
--- NOTE | 2017-07-07 11:53 | PN ---
Progress Note, Physician History of Present Illness: The patient is breathing more comfortably. He is supine in no apparent distress. - Current Medication List Current Medications: Active Medications Acetaminophen (Tylenol -) 650 mg PO Q4H PRN PRN Reason: FEVER OR PAIN Last Admin: 07/07/17 09:05 Dose: 650 mg Aspirin (Asa -) 81 mg PO DAILY [facility] Last Admin: 07/07/17 09:07 Dose: 81 mg Atorvastatin Calcium (Lipitor -) 80 mg PO HS [facility] Last Admin: 07/06/17 22:53 Dose: 80 mg Carvedilol (Coreg -) 3.125 mg PO BID [facility] Last Admin: 07/07/17 09:08 Dose: 3.125 mg Duloxetine HCl (Cymbalta -) 60 mg PO DAILY [facility] Last Admin: 07/07/17 09:07 Dose: 60 mg Fentanyl (Duragesic 12mcg Patch -) 1 patch TD Q72H [facility] Stop: 07/10/17 15:17 Last Admin: 07/06/17 16:35 Dose: 1 patch Furosemide (Lasix Injection -) 80 mg IVPUSH BID@0600,1400 [facility] IV Flush (Picc Line Flush) 8 ml IVPUSH PRN PRN PRN Reason: Protocol Ceftriaxone Sodium 2 gm/ (Dextrose) 100 mls @ 200 mls/hr IVPB DAILY [facility] Last Admin: 07/07/17 10:37 Dose: 200 mls/hr Ampicillin Sodium 2 gm/ Sodium (Chloride) 100 mls @ 200 mls/hr IVPB Q4H-IV [facility] Last Admin: 07/07/17 10:36 Dose: 200 mls/hr Insulin Aspart (Novolog Vial Sliding Scale -) 1 vial SQ ACHS [facility] PRN Reason: Protocol Last Admin: 07/07/17 06:38 Dose: Not Given Insulin Detemir (Levemir Vial) 30 units SQ BID@0700,2200 [facility] Last Admin: 07/07/17 06:33 Dose: 30 units Levothyroxine Sodium (Synthroid -) 125 mcg PO DAILY@0700 [facility] Last Admin: 07/07/17 06:33 Dose: 125 mcg Loratadine (Claritin -) 10 mg PO DAILY [facility] Last Admin: 07/07/17 09:07 Dose: 10 mg Methylnaltrexone [place] (Relistor -) 12 mg SQ DAILY [facility] Last Admin: 07/07/17 10:37 Dose: 12 mg Miscellaneous (Duragesic Patch Waste) 1 each TD PRN PRN PRN Reason: PAIN Last Admin: 07/06/17 18:28 Dose: 1 each Montelukast Sodium (Singulair -) 10 mg PO HS [facility] Last Admin: 07/06/17 22:53 Dose: 10 mg Nystatin (Nystop Powder -) 1 applic TP DAILY [facility] Last Admin: 07/07/17 10:37 Dose: 1 applic Pancrelipase (Creon Dr 6,000 Units Capsule) 1 cap PO TIDCM [facility] Last Admin: 07/07/17 10:35 Dose: 1 cap Pantoprazole Sodium (Protonix -) 20 mg PO BID [facility] Last Admin: 07/07/17 09:08 Dose: 20 mg Ranolazine (Ranexa -) 500 mg PO BID [facility] Last Admin: 07/07/17 09:07 Dose: 500 mg Tamsulosin HCl (Flomax -) 0.4 mg PO DAILY@0830 [facility] Last Admin: 07/07/17 09:08 Dose: 0.4 mg Ticagrelor (Brilinta) 60 mg PO BID [facility] Last Admin: 07/07/17 10:35 Dose: 60 mg Warfarin Sodium (Coumadin -) 5 mg PO DAILY@1800 [facility] Last Admin: 07/06/17 18:21 Dose: 5 mg - Objective Vital Signs: Vital Signs Temperature 98.1 F 07/07/17 10:00 Pulse Rate 62 07/07/17 10:00 Respiratory Rate 20 07/07/17 10:00 Blood Pressure 120/80 07/07/17 10:00 O2 Sat by Pulse Oximetry (%) 98 07/06/17 21:00 Constitutional: Yes: Well Nourished, No Distress, Calm Eyes: Yes: WNL HENT: Yes: WNL, Atraumatic, Normocephalic Neck: Yes: WNL, Supple, Trachea Midline Cardiovascular: Yes: WNL, Regular Rate and Rhythm, Bradycardia Respiratory: Yes: Regular, Other (Distant breath sounds we have reduced her movement, basilar rales.) Gastrointestinal: Yes: WNL, Normal Bowel Sounds, Soft ...Rectal Exam: Yes: Deferred Musculoskeletal: Yes: WNL Extremities: Yes: WNL Edema: Yes (trace bilaterally) Peripheral Pulses WNL: Yes Integumentary: Yes: WNL Neurological: Yes: WNL Labs: CBC, BMP 07/06/17 05:10 07/06/17 05:10 INR, PTT INR 1.58 (0.82-1.09) H 07/06/17 05:10 Assessment/Plan The patient is clinically and symptomatically better. Responding to intravenous Lasix. Well beta blocked. Periods of Mobitz 1 on telemetry. Continue intravenous Lasix as currently. Strict salt and fluid restrictions. Continue the other medications as currently. The patient may benefit from nebulizers. Keep potassium around 4.0. Doing well.
[2017-07-07] MEDS: POLYETHYLENE GLYCOL 3350 119 GM BTL PO PRN (15:00)
[2017-07-07 15:52] LABS: INR 1.44 (0.82-1.09); PROTHROMBIN TIME (PATIENT) 16.3 SEC (9.98-11.88)
[2017-07-07] MEDS ORDERED: WARFARIN NA 5 MG, WARFARIN NA 2 MG PO ONE (18:00)
[2017-07-07] MEDS ORDERED: SODIUM PHOSPHATE/NA BIPHOS 133 ML ENEMA RC ONE (18:00)
[2017-07-07] MEDS ORDERED: WARFARIN NA 2 MG TABLET (UD) ONE (18:33)
[2017-07-07] MEDS ORDERED: WARFARIN NA 5 MG TABLET (UD) ONE (18:33)
[2017-07-07] MEDS: MONTELUKAST NA 10 MG TABLET PO SCH (22:31)
[2017-07-07] MEDS: ATORVASTATIN CA 80 MG TABLET (FP) PO SCH (22:31)
[2017-07-08] MEDS ORDERED: PT OWN MED DRAWER 7, Y5N ONE ×4 (01:56→16:52)
[2017-07-08] MEDS: AMPICILLIN - 2 GM in SODIUM CHLORIDE 100 ML IVPB SCH ×6 (02:40→22:36)
[2017-07-08] MEDS: FUROSEMIDE 40 MG/4 ML INJECTABLE VIAL IVPUSH SCH ×2 (06:59→13:32)
[2017-07-08] MEDS: ACETAMINOPHEN 325 MG TABLET (FP) PO PRN ×3 (07:00→18:22)
[2017-07-08] MEDS: LEVOTHYROXINE NA 125 MCG TABLET (FP) PO SCH (07:00)
[2017-07-08] MEDS: INSULIN DETEMIR 100 UNITS/ML MDV SQ SCH ×2 (07:01→22:39)
[2017-07-08] MEDS: INSULIN SLIDING SCALE (NOVOLOG) 1 VIAL SQ SCH ×4 (07:25→22:38)
[2017-07-08 07:52] LABS: BASOPHIL 0.9 % (0-2.0); EOSINOPHIL 4.8 % (0-4.5); MCH 27.2 pg (25.7-33.7); MCHC 32.6 g/dl (32.0-35.9); MEAN CELL VOLUME 83.6 fl (80-96); NEUTROPHILS 73.3 % (42.8-82.8); PLATELET COUNT 255 K/MM3 (134-434); RDW 18.4 % (11.9-15.9)
[2017-07-08] MEDS: LIPASE/PROTEASE/AMYLASE 6,000 UNIT CAPSULE PO SCH ×3 (08:00→17:35)
[2017-07-08] MEDS: TAMSULOSIN HCL 0.4 MG CAP.ER.24H (FP) PO SCH (08:16)
[2017-07-08 08:17] LABS: INR 1.63 (0.82-1.09); PROTHROMBIN TIME (PATIENT) 18.4 SEC (9.98-11.88)
[2017-07-08 08:20] LABS: ALBUMIN 2.2 g/dl (3.4-5.0); ANION GAP 10 (8-16); CALCIUM 8.2 mg/dL (8.5-10.1); CO2 31 mmol/L (21-32); CREATININE 1.3 mg/dL (0.7-1.3); GLUCOSE,RANDOM 167 mg/dL (74-106); SGOT/AST 13 U/L (15-37); SGPT/ALT 14 U/L (12-78)
[2017-07-08 08:22] LABS: ALK PHOS 91 U/L (45-117); BILIRUBIN,TOTAL 0.3 mg/dL (0.2-1.0); TOT PROT 6.3 g/dl (6.4-8.2)
--- NOTE | 2017-07-08 09:08 | PN ---
Progress Note, Physician - Current Medication List Current Medications: Active Medications Acetaminophen (Tylenol -) 650 mg PO Q4H PRN PRN Reason: FEVER OR PAIN Last Admin: 07/08/17 07:00 Dose: 650 mg Aspirin (Asa -) 81 mg PO DAILY [facility] Last Admin: 07/07/17 09:07 Dose: 81 mg Atorvastatin Calcium (Lipitor -) 80 mg PO HS [facility] Last Admin: 07/07/17 22:31 Dose: 80 mg Carvedilol (Coreg -) 3.125 mg PO BID [facility] Last Admin: 07/07/17 22:31 Dose: 3.125 mg Duloxetine HCl (Cymbalta -) 60 mg PO DAILY [facility] Last Admin: 07/07/17 09:07 Dose: 60 mg Fentanyl (Duragesic 12mcg Patch -) 1 patch TD Q72H [facility] Stop: 07/10/17 15:17 Last Admin: 07/06/17 16:35 Dose: 1 patch Furosemide (Lasix Injection -) 80 mg IVPUSH BID@0600,1400 [facility] Last Admin: 07/08/17 06:59 Dose: 80 mg IV Flush (Picc Line Flush) 8 ml IVPUSH PRN PRN PRN Reason: Protocol Ceftriaxone Sodium 2 gm/ (Dextrose) 100 mls @ 200 mls/hr IVPB DAILY [facility] Last Admin: 07/07/17 10:37 Dose: 200 mls/hr Ampicillin Sodium 2 gm/ Sodium (Chloride) 100 mls @ 200 mls/hr IVPB Q4H-IV [facility] Last Admin: 07/08/17 07:00 Dose: 200 mls/hr Insulin Aspart (Novolog Vial Sliding Scale -) 1 vial SQ ACHS [facility] PRN Reason: Protocol Last Admin: 07/08/17 07:25 Dose: 3 units Insulin Detemir (Levemir Vial) 30 units SQ BID@0700,2200 [facility] Last Admin: 07/08/17 07:01 Dose: 30 units Levothyroxine Sodium (Synthroid -) 125 mcg PO DAILY@0700 [facility] Last Admin: 07/08/17 07:00 Dose: 125 mcg Loratadine (Claritin -) 10 mg PO DAILY [facility] Last Admin: 07/07/17 09:07 Dose: 10 mg Methylnaltrexone [place] (Relistor -) 12 mg SQ DAILY [facility] Last Admin: 07/07/17 10:37 Dose: 12 mg Miscellaneous (Duragesic Patch Waste) 1 each TD PRN PRN PRN Reason: PAIN Last Admin: 07/06/17 18:28 Dose: 1 each Montelukast Sodium (Singulair -) 10 mg PO HS [facility] Last Admin: 07/07/17 22:31 Dose: 10 mg Nystatin (Nystop Powder -) 1 applic TP DAILY [facility] Last Admin: 07/07/17 10:37 Dose: 1 applic Pancrelipase (Creon Dr 6,000 Units Capsule) 1 cap PO TIDCM [facility] Last Admin: 07/07/17 18:11 Dose: 1 cap Pantoprazole Sodium (Protonix -) 20 mg PO BID [facility] Last Admin: 07/07/17 22:31 Dose: 20 mg Polyethylene Glycol (Miralax (For Daily Use) -) 17 gm PO DAILY PRN Last Admin: 07/07/17 15:00 Dose: 17 g Ranolazine (Ranexa -) 500 mg PO BID [facility] Last Admin: 07/07/17 22:31 Dose: 500 mg Tamsulosin HCl (Flomax -) 0.4 mg PO DAILY@0830 [facility] Last Admin: 07/08/17 08:16 Dose: 0.4 mg Ticagrelor (Brilinta) 60 mg PO BID [facility] Last Admin: 07/07/17 22:31 Dose: 60 mg Warfarin Sodium (Coumadin -) 5 mg PO DAILY@1800 [facility] Last Admin: 07/06/17 18:21 Dose: 5 mg - Objective Vital Signs: Vital Signs Temperature 98.4 F 07/08/17 06:00 Pulse Rate 55 L 07/08/17 06:00 Respiratory Rate 20 07/08/17 06:00 Blood Pressure 111/71 07/08/17 06:00 O2 Sat by Pulse Oximetry (%) 99 07/07/17 21:00 Cardiovascular: Yes: S1, S2 Respiratory: Yes: Regular, CTA Bilaterally Gastrointestinal: Yes: Normal Bowel Sounds, Soft Edema: Yes Labs: CBC, BMP 07/08/17 05:15 07/08/17 05:15 INR, PTT INR 1.63 (0.82-1.09) H 07/08/17 05:15 Assessment/Plan - Problems (1) CHF (congestive heart failure) Assessment/Plan: acute systolic heart failure echo done at [facility] show ejection fraction 25-30 percent tele cardio increase iv lasix 80 bid daily cxr and weights Code(s): I50.9 - HEART FAILURE, UNSPECIFIED Qualifiers: Congestive heart failure type: unspecified congestive heart failure type Congestive heart failure chronicity: acute on chronic Qualified Code(s ): I50.9 - Heart failure, unspecified; I50.9 - Heart failure, unspecified; I50.9 - Heart failure, unspecified; I50.9 - Heart failure, unspecified (2) ASHD (arteriosclerotic heart disease) Assessment/Plan: -on asa -?brilinta ranexa and coreg Code(s): I25.10 - ATHSCL HEART DISEASE OF [place] CORONARY ARTERY W/O ANG PCTRS (3) Anxiety Assessment/Plan: xanax Code(s): F41.9 - ANXIETY DISORDER, UNSPECIFIED (4) Atrial fibrillation Assessment/Plan: coreg check INR couamdin dosing for inr btw 2-3 Code(s): I48.91 - UNSPECIFIED ATRIAL FIBRILLATION (5) COPD (chronic obstructive pulmonary disease) Assessment/Plan: bronchodilators singulair claritn Code(s): J44.9 - CHRONIC OBSTRUCTIVE PULMONARY DISEASE, UNSPECIFIED (6) Constipation due to opioid therapy Assessment/Plan: relistor Code(s): K59.09 - OTHER CONSTIPATION T40.2X5A - ADVERSE EFFECT OF OTHER OPIOIDS, INITIAL ENCOUNTER (7) Diabetes mellitus, insulin dependent (IDDM), uncontrolled Assessment/Plan: levemir bid hga1c bgm lipid panel Code(s): E10.65 - TYPE 1 DIABETES MELLITUS WITH HYPERGLYCEMIA (8) Hypothyroid Assessment/Plan: tsh resume synthroid 100 Code(s): E03.9 - HYPOTHYROIDISM, UNSPECIFIED (9) Osteomyelitis Assessment/Plan: per [facility] discharge notes ampicilin 2grm q4 for 4 weeks till 08/11 rocephin 2gm bid for 4 weeks ID and ORTHO Code(s): M86.9 - OSTEOMYELITIS, UNSPECIFIED (10) Confusion Assessment/Plan: CT OF HEAD NAD NEURO NOTED--
[2017-07-08] MEDS: CARVEDILOL 3.125 MG TABLET (FP) PO SCH ×2 (10:34→22:17)
[2017-07-08] MEDS: ASPIRIN 81 MG CHEWABLE TABLETS PO SCH (10:34)
[2017-07-08] MEDS: Methylnaltrexone Bromide 12 MG/0.6 ML KIT SQ SCH (10:35)
[2017-07-08] MEDS: RANOLAZINE E.R. 500 MG TABLET (FP) PO SCH ×2 (10:35→22:37)
[2017-07-08] MEDS: PANTOPRAZOLE 20 MG TABLET (FP) PO SCH ×2 (10:35→22:37)
[2017-07-08] MEDS: NYSTATIN POWDER 100,000 UNITS/GM - 15 GM TOPICAL POWDER TP SCH (10:35)
[2017-07-08] MEDS: DULoxetine HCL 30 MG CAPSULE.DR (FP) PO SCH (10:35)
[2017-07-08] MEDS: TICAGRELOR 60 MG TABLET PO SCH ×2 (10:36→22:36)
[2017-07-08] MEDS: LORATADINE 10 MG TABLET PO SCH (10:37)
[2017-07-08] MEDS: CEFTRIAXONE 2 GM in DEXTROSE 5%-WATER - 100 ML IVPB SCH (11:44)
[2017-07-08] MEDS ORDERED: MAG HYDROX/AL HYDROX/SIMETH 30 ML UNIT-DOSE CUP PO ONE ×2 (13:45→18:15)
[2017-07-08] MEDS ORDERED: WARFARIN NA 2 MG TABLET (UD) ONE (16:51)
[2017-07-08] MEDS ORDERED: WARFARIN NA 5 MG TABLET (UD) ONE (16:51)
[2017-07-08] MEDS ORDERED: WARFARIN NA 5 MG, WARFARIN NA 4 MG PO ONE (18:00)
[2017-07-08] MEDS: ATORVASTATIN CA 80 MG TABLET (FP) PO SCH (22:17)
[2017-07-08] MEDS: MONTELUKAST NA 10 MG TABLET PO SCH (22:37)
[2017-07-09] MEDS: AMPICILLIN - 2 GM in SODIUM CHLORIDE 100 ML IVPB SCH ×6 (01:43→22:24)
[2017-07-09] MEDS: POLYETHYLENE GLYCOL 3350 119 GM BTL PO PRN (02:00)
[2017-07-09] MEDS: FUROSEMIDE 40 MG/4 ML INJECTABLE VIAL IVPUSH SCH ×2 (05:53→14:02)
[2017-07-09] MEDS: LEVOTHYROXINE NA 125 MCG TABLET (FP) PO SCH (06:16)
[2017-07-09] MEDS: INSULIN SLIDING SCALE (NOVOLOG) 1 VIAL SQ SCH ×4 (06:16→22:29)
[2017-07-09] MEDS: INSULIN DETEMIR 100 UNITS/ML MDV SQ SCH ×2 (07:06→22:29)
[2017-07-09] MEDS ORDERED: PT OWN MED DRAWER 7, Y5N ONE ×4 (08:08→22:09)
[2017-07-09] MEDS: ACETAMINOPHEN 325 MG TABLET (FP) PO PRN ×2 (08:13→12:06)
[2017-07-09] MEDS: LIPASE/PROTEASE/AMYLASE 6,000 UNIT CAPSULE PO SCH ×3 (08:51→18:03)
[2017-07-09] MEDS: TAMSULOSIN HCL 0.4 MG CAP.ER.24H (FP) PO SCH (08:51)
--- NOTE | 2017-07-09 09:34 | PN ---
Progress Note, Physician Chief Complaint: on iv lasix and iv abx says he is feeling cold having chills no fever documented has not had a BM - Current Medication List Current Medications: Active Medications Acetaminophen (Tylenol -) 650 mg PO Q4H PRN PRN Reason: FEVER OR PAIN Last Admin: 07/09/17 08:13 Dose: 650 mg Aspirin (Asa -) 81 mg PO DAILY [facility] Last Admin: 07/08/17 10:34 Dose: 81 mg Atorvastatin Calcium (Lipitor -) 80 mg PO HS [facility] Last Admin: 07/08/17 22:17 Dose: 80 mg Carvedilol (Coreg -) 3.125 mg PO BID [facility] Last Admin: 07/08/17 22:17 Dose: 3.125 mg Duloxetine HCl (Cymbalta -) 60 mg PO DAILY [facility] Last Admin: 07/08/17 10:35 Dose: 60 mg Fentanyl (Duragesic 12mcg Patch -) 1 patch TD Q72H [facility] Stop: 07/10/17 15:17 Last Admin: 07/06/17 16:35 Dose: 1 patch Furosemide (Lasix Injection -) 80 mg IVPUSH BID@0600,1400 [facility] Last Admin: 07/09/17 05:53 Dose: 80 mg IV Flush (Picc Line Flush) 8 ml IVPUSH PRN PRN PRN Reason: Protocol Ceftriaxone Sodium 2 gm/ (Dextrose) 100 mls @ 200 mls/hr IVPB DAILY [facility] Last Admin: 07/08/17 11:44 Dose: 200 mls/hr Ampicillin Sodium 2 gm/ Sodium (Chloride) 100 mls @ 200 mls/hr IVPB Q4H-IV [facility] Last Admin: 07/09/17 05:53 Dose: 200 mls/hr Insulin Aspart (Novolog Vial Sliding Scale -) 1 vial SQ ACHS [facility] PRN Reason: Protocol Last Admin: 07/09/17 06:16 Dose: Not Given Insulin Detemir (Levemir Vial) 30 units SQ BID@0700,2200 [facility] Last Admin: 07/09/17 07:06 Dose: Not Given Levothyroxine Sodium (Synthroid -) 125 mcg PO DAILY@0700 [facility] Last Admin: 07/09/17 06:16 Dose: 125 mcg Loratadine (Claritin -) 10 mg PO DAILY [facility] Last Admin: 07/08/17 10:37 Dose: 10 mg Methylnaltrexone [place] (Relistor -) 12 mg SQ DAILY [facility] Last Admin: 07/08/17 10:35 Dose: 12 mg Miscellaneous (Duragesic Patch Waste) 1 each TD PRN PRN PRN Reason: PAIN Last Admin: 07/06/17 18:28 Dose: 1 each Montelukast Sodium (Singulair -) 10 mg PO HS [facility] Last Admin: 07/08/17 22:37 Dose: 10 mg Nystatin (Nystop Powder -) 1 applic TP DAILY [facility] Last Admin: 07/08/17 10:35 Dose: 1 applic Pancrelipase (Creon Dr 6,000 Units Capsule) 1 cap PO TIDCM [facility] Last Admin: 07/09/17 08:51 Dose: 1 cap Pantoprazole Sodium (Protonix -) 20 mg PO BID [facility] Last Admin: 07/08/17 22:37 Dose: 20 mg Polyethylene Glycol (Miralax (For Daily Use) -) 17 gm PO DAILY [facility] Last Admin: 07/09/17 02:00 Dose: 17 g Ranolazine (Ranexa -) 500 mg PO BID [facility] Last Admin: 07/08/17 22:37 Dose: 500 mg Tamsulosin HCl (Flomax -) 0.4 mg PO DAILY@0830 [facility] Last Admin: 07/09/17 08:51 Dose: 0.4 mg Ticagrelor (Brilinta) 60 mg PO BID [facility] Last Admin: 07/08/17 22:36 Dose: 60 mg Warfarin Sodium (Coumadin -) 5 mg PO DAILY@1800 [facility] Last Admin: 07/06/17 18:21 Dose: 5 mg - Objective Vital Signs: Vital Signs Temperature 98.2 F 07/09/17 06:00 Pulse Rate 56 L 07/09/17 06:00 Respiratory Rate 20 07/09/17 06:00 Blood Pressure 130/67 07/09/17 06:00 O2 Sat by Pulse Oximetry (%) 98 07/08/17 21:00 Constitutional: Yes: Anxious, Obese Cardiovascular: Yes: Regular Rate and Rhythm, S1, S2 Respiratory: Yes: Diminished, On Nasal O2 Gastrointestinal: Yes: Soft, Abdomen, Obese Edema: Yes Neurological: Yes: Alert, Oriented Labs: CBC, BMP 07/08/17 05:15 07/08/17 05:15 INR, PTT INR 1.63 (0.82-1.09) H 07/08/17 05:15 Problem List - Problems (1) CHF (congestive heart failure) Assessment/Plan: on iv lasix 80mg bid jesse continue for another day Code(s): I50.9 - HEART FAILURE, UNSPECIFIED Qualifiers: Congestive heart failure type: unspecified congestive heart failure type Congestive heart failure chronicity: acute on chronic Qualified Code(s ): I50.9 - Heart failure, unspecified; I50.9 - Heart failure, unspecified; I50.9 - Heart failure, unspecified; I50.9 - Heart failure, unspecified (2) ASHD (arteriosclerotic heart disease) Assessment/Plan: brilinta and coreg ranexa Code(s): I25.10 - ATHSCL HEART DISEASE OF [place] CORONARY ARTERY W/O ANG PCTRS (3) Anxiety Assessment/Plan: xanax Code(s): F41.9 - ANXIETY DISORDER, UNSPECIFIED (4) Atrial fibrillation Assessment/Plan: INR is subtherapeutic will give extra dose of couamdin tonight coreg check INR couamdin dosing for inr btw 2-3 Code(s): I48.91 - UNSPECIFIED ATRIAL FIBRILLATION (5) COPD (chronic obstructive pulmonary disease) Assessment/Plan: bronchodilators singulair claritn Code(s): J44.9 - CHRONIC OBSTRUCTIVE PULMONARY DISEASE, UNSPECIFIED (6) Constipation due to opioid therapy Assessment/Plan: relistor Code(s): K59.09 - OTHER CONSTIPATION T40.2X5A - ADVERSE EFFECT OF OTHER OPIOIDS, INITIAL ENCOUNTER (7) Diabetes mellitus, insulin dependent (IDDM), uncontrolled Assessment/Plan: levemir bid hga1c bgm lipid panel Code(s): E10.65 - TYPE 1 DIABETES MELLITUS WITH HYPERGLYCEMIA (8) Hypothyroid Assessment/Plan: tsh noted to be 28 synthroid 125mcg daily repeat in two weeks Code(s): E03.9 - HYPOTHYROIDISM, UNSPECIFIED (9) Osteomyelitis Assessment/Plan: picc line to be placed tmw for discharge per [facility] discharge notes ampicilin 2grm q4 for 4 weeks till 08/11 rocephin 2gm bid for 4 weeks Code(s): M86.9 - OSTEOMYELITIS, UNSPECIFIED Assessment/Plan conitnue iv lasix today check inr in am picc line tommorow for dc to [facility]
[2017-07-09] MEDS: LORATADINE 10 MG TABLET PO SCH (09:55)
[2017-07-09] MEDS: RANOLAZINE E.R. 500 MG TABLET (FP) PO SCH ×2 (09:55→22:25)
[2017-07-09] MEDS: CARVEDILOL 3.125 MG TABLET (FP) PO SCH ×2 (09:55→22:25)
[2017-07-09] MEDS: ASPIRIN 81 MG CHEWABLE TABLETS PO SCH (09:55)
[2017-07-09] MEDS: DULoxetine HCL 30 MG CAPSULE.DR (FP) PO SCH (09:55)
[2017-07-09] MEDS: PANTOPRAZOLE 20 MG TABLET (FP) PO SCH ×2 (09:59→22:25)
[2017-07-09] MEDS: NYSTATIN POWDER 100,000 UNITS/GM - 15 GM TOPICAL POWDER TP SCH (10:34)
--- NOTE | 2017-07-09 10:38 | PN ---
Progress Note, Physician Chief Complaint: ID Asymptomatic Ambulating with assistance Ampicilin Ceftriaxone - Current Medication List Current Medications: Active Medications Acetaminophen (Tylenol -) 650 mg PO Q4H PRN PRN Reason: FEVER OR PAIN Last Admin: 07/09/17 08:13 Dose: 650 mg Aspirin (Asa -) 81 mg PO DAILY [facility] Last Admin: 07/09/17 09:55 Dose: 81 mg Atorvastatin Calcium (Lipitor -) 80 mg PO HS [facility] Last Admin: 07/08/17 22:17 Dose: 80 mg Carvedilol (Coreg -) 3.125 mg PO BID [facility] Last Admin: 07/09/17 09:55 Dose: 3.125 mg Duloxetine HCl (Cymbalta -) 60 mg PO DAILY [facility] Last Admin: 07/09/17 09:55 Dose: 60 mg Fentanyl (Duragesic 12mcg Patch -) 1 patch TD Q72H [facility] Stop: 07/10/17 15:17 Last Admin: 07/06/17 16:35 Dose: 1 patch Furosemide (Lasix Injection -) 80 mg IVPUSH BID@0600,1400 [facility] Last Admin: 07/09/17 05:53 Dose: 80 mg IV Flush (Picc Line Flush) 8 ml IVPUSH PRN PRN PRN Reason: Protocol Ceftriaxone Sodium 2 gm/ (Dextrose) 100 mls @ 200 mls/hr IVPB DAILY [facility] Last Admin: 07/08/17 11:44 Dose: 200 mls/hr Ampicillin Sodium 2 gm/ Sodium (Chloride) 100 mls @ 200 mls/hr IVPB Q4H-IV [facility] Last Admin: 07/09/17 05:53 Dose: 200 mls/hr Insulin Aspart (Novolog Vial Sliding Scale -) 1 vial SQ ACHS [facility] PRN Reason: Protocol Last Admin: 07/09/17 06:16 Dose: Not Given Insulin Detemir (Levemir Vial) 30 units SQ BID@0700,2200 [facility] Last Admin: 07/09/17 07:06 Dose: Not Given Levothyroxine Sodium (Synthroid -) 125 mcg PO DAILY@0700 [facility] Last Admin: 07/09/17 06:16 Dose: 125 mcg Loratadine (Claritin -) 10 mg PO DAILY [facility] Last Admin: 07/09/17 09:55 Dose: 10 mg Methylnaltrexone [place] (Relistor -) 12 mg SQ DAILY [facility] Last Admin: 07/08/17 10:35 Dose: 12 mg Miscellaneous (Duragesic Patch Waste) 1 each TD PRN PRN PRN Reason: PAIN Last Admin: 07/06/17 18:28 Dose: 1 each Montelukast Sodium (Singulair -) 10 mg PO HS [facility] Last Admin: 07/08/17 22:37 Dose: 10 mg Nystatin (Nystop Powder -) 1 applic TP DAILY [facility] Last Admin: 07/08/17 10:35 Dose: 1 applic Pancrelipase (Creon Dr 6,000 Units Capsule) 1 cap PO TIDCM [facility] Last Admin: 07/09/17 08:51 Dose: 1 cap Pantoprazole Sodium (Protonix -) 20 mg PO BID [facility] Last Admin: 07/09/17 09:59 Dose: 20 mg Polyethylene Glycol (Miralax (For Daily Use) -) 17 gm PO DAILY [facility] Last Admin: 07/09/17 02:00 Dose: 17 g Ranolazine (Ranexa -) 500 mg PO BID [facility] Last Admin: 07/09/17 09:55 Dose: 500 mg Tamsulosin HCl (Flomax -) 0.4 mg PO DAILY@0830 [facility] Last Admin: 07/09/17 08:51 Dose: 0.4 mg Ticagrelor (Brilinta) 60 mg PO BID [facility] Last Admin: 07/08/17 22:36 Dose: 60 mg Warfarin Sodium (Coumadin -) 5 mg PO DAILY@1800 [facility] Last Admin: 07/06/17 18:21 Dose: 5 mg Warfarin Sodium (Coumadin -) 7.5 mg PO ONCE@1800 [facility] Stop: 07/09/17 18:01 - Objective Vital Signs: Vital Signs Temperature 98.3 F 07/09/17 09:00 Pulse Rate 60 07/09/17 09:00 Respiratory Rate 20 07/09/17 09:00 Blood Pressure 102/45 07/09/17 09:00 O2 Sat by Pulse Oximetry (%) 98 07/09/17 09:00 Constitutional: Yes: Well Nourished, No Distress HENT: Yes: WNL, Atraumatic Neck: Yes: WNL, Supple Cardiovascular: Yes: Regular Rate and Rhythm, S1, S2. No: Murmur Respiratory: Yes: WNL, Regular, CTA Bilaterally Gastrointestinal: Yes: WNL, Normal Bowel Sounds, Soft Edema: Yes (indurated pretibial area) Labs: CBC, BMP 07/08/17 05:15 07/08/17 05:15 INR, PTT INR 1.63 (0.82-1.09) H 07/08/17 05:15 Assessment/Plan Microbiology 07/03/17 14:46 Blood - Peripheral Venous Blood Culture - Final NO GROWTH AFTER 5 DAYS INCUBATION 07/03/17 14:46 Blood - Peripheral Venous Blood Culture - Final NO GROWTH AFTER 5 DAYS INCUBATION Laboratory Tests 07/08/17 07/08/17 05:15 05:15 WBC 8.0 Hgb 9.6 L Hct 29.3 L Plt Count 255 BUN 18 Creatinine 1.3 Assessment Infected hardware with bacteremia Still on antibiotic to continue Plan Continue same guanaco Savage MD
[2017-07-09] MEDS: CEFTRIAXONE 2 GM in DEXTROSE 5%-WATER - 100 ML IVPB SCH (11:29)
[2017-07-09] MEDS: TICAGRELOR 60 MG TABLET PO SCH ×2 (11:29→22:25)
[2017-07-09] MEDS: Methylnaltrexone Bromide 12 MG/0.6 ML KIT SQ SCH (13:35)
--- NOTE | 2017-07-09 14:42 | PN ---
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 Was at long-term when noted PICC line was out and patient had confusion along with sob. In ER, patient c/o chest pain and sob. CXR with congestion. BNP elevated. Given IV lasix with improvement - Current Medication List Current Medications: Active Medications Acetaminophen (Tylenol -) 650 mg PO Q4H PRN PRN Reason: FEVER OR PAIN Last Admin: 07/09/17 12:06 Dose: 650 mg Aspirin (Asa -) 81 mg PO DAILY [facility] Last Admin: 07/09/17 09:55 Dose: 81 mg Atorvastatin Calcium (Lipitor -) 80 mg PO HS [facility] Last Admin: 07/08/17 22:17 Dose: 80 mg Carvedilol (Coreg -) 3.125 mg PO BID [facility] Last Admin: 07/09/17 09:55 Dose: 3.125 mg Duloxetine HCl (Cymbalta -) 60 mg PO DAILY [facility] Last Admin: 07/09/17 09:55 Dose: 60 mg Fentanyl (Duragesic 12mcg Patch -) 1 patch TD Q72H [facility] Stop: 07/10/17 15:17 Last Admin: 07/06/17 16:35 Dose: 1 patch Furosemide (Lasix Injection -) 80 mg IVPUSH BID@0600,1400 [facility] Last Admin: 07/09/17 14:02 Dose: 80 mg IV Flush (Picc Line Flush) 8 ml IVPUSH PRN PRN PRN Reason: Protocol Ceftriaxone Sodium 2 gm/ (Dextrose) 100 mls @ 200 mls/hr IVPB DAILY [facility] Last Admin: 07/09/17 11:29 Dose: 200 mls/hr Ampicillin Sodium 2 gm/ Sodium (Chloride) 100 mls @ 200 mls/hr IVPB Q4H-IV [facility] Last Admin: 07/09/17 14:04 Dose: 200 mls/hr Insulin Aspart (Novolog Vial Sliding Scale -) 1 vial SQ ACHS [facility] PRN Reason: Protocol Last Admin: 07/09/17 11:29 Dose: 3 units Insulin Detemir (Levemir Vial) 30 units SQ BID@0700,2200 [facility] Last Admin: 07/09/17 07:06 Dose: Not Given Levothyroxine Sodium (Synthroid -) 125 mcg PO DAILY@0700 [facility] Last Admin: 07/09/17 06:16 Dose: 125 mcg Loratadine (Claritin -) 10 mg PO DAILY [facility] Last Admin: 07/09/17 09:55 Dose: 10 mg Methylnaltrexone [place] (Relistor -) 12 mg SQ DAILY [facility] Last Admin: 07/09/17 13:35 Dose: 12 mg Miscellaneous (Duragesic Patch Waste) 1 each TD PRN PRN PRN Reason: PAIN Last Admin: 07/06/17 18:28 Dose: 1 each Montelukast Sodium (Singulair -) 10 mg PO HS [facility] Last Admin: 07/08/17 22:37 Dose: 10 mg Nystatin (Nystop Powder -) 1 applic TP DAILY [facility] Last Admin: 07/09/17 10:34 Dose: 1 applic Pancrelipase (Creon Dr 6,000 Units Capsule) 1 cap PO TIDCM [facility] Last Admin: 07/09/17 13:35 Dose: 1 cap Pantoprazole Sodium (Protonix -) 20 mg PO BID [facility] Last Admin: 07/09/17 09:59 Dose: 20 mg Polyethylene Glycol (Miralax (For Daily Use) -) 17 gm PO DAILY [facility] Last Admin: 07/09/17 02:00 Dose: 17 g Ranolazine (Ranexa -) 500 mg PO BID [facility] Last Admin: 07/09/17 09:55 Dose: 500 mg Tamsulosin HCl (Flomax -) 0.4 mg PO DAILY@0830 [facility] Last Admin: 07/09/17 08:51 Dose: 0.4 mg Ticagrelor (Brilinta) 60 mg PO BID [facility] Last Admin: 07/09/17 11:29 Dose: 60 mg Warfarin Sodium (Coumadin -) 5 mg PO DAILY@1800 [facility] Last Admin: 07/06/17 18:21 Dose: 5 mg Warfarin Sodium (Coumadin -) 7.5 mg PO ONCE@1800 [facility] Stop: 07/09/17 18:01 - Objective Vital Signs: Vital Signs Temperature 98.6 F 07/09/17 14:06 Pulse Rate 51 L 07/09/17 14:06 Respiratory Rate 20 07/09/17 14:06 Blood Pressure 112/53 07/09/17 14:06 O2 Sat by Pulse Oximetry (%) 98 07/09/17 09:00 Constitutional: Yes: No Distress, Calm, Other Eyes: Yes: Conjunctiva Clear HENT: Yes: Atraumatic, Normocephalic Neck: Yes: Supple, Trachea Midline Cardiovascular: Yes: Regular Rate and Rhythm Respiratory: Yes: Regular, CTA Bilaterally, Rales (bilat bases) Gastrointestinal: Yes: Normal Bowel Sounds, Soft Musculoskeletal: Yes: WNL Extremities: Yes: WNL Edema: Yes Edema: LUE: 1+, RUE: 1+ Labs: CBC, BMP 07/08/17 05:15 07/08/17 05:15 INR, PTT INR 1.63 (0.82-1.09) H 07/08/17 05:15 Problem List - Problems (1) CHF (congestive heart failure) Assessment/Plan: slowly improving. continue IV lasix. follow daily wts. increase coreg to 6.25 bid and add lisinopril 5 mg daily if bp and HR are stable starting tomorrow. Code(s): I50.9 - HEART FAILURE, UNSPECIFIED Qualifiers: Congestive heart failure type: unspecified congestive heart failure type Congestive heart failure chronicity: acute on chronic Qualified Code(s ): I50.9 - Heart failure, unspecified; I50.9 - Heart failure, unspecified; I50.9 - Heart failure, unspecified; I50.9 - Heart failure, unspecified (2) CAD in [place] artery Assessment/Plan: no need for brilinta at this point. continue asa and low dose bb. No angina. Code(s): I25.10 - ATHSCL HEART DISEASE OF [place] CORONARY ARTERY W/O ANG PCTRS (3) Atrial fibrillation Assessment/Plan: continue coumadin for INR 2-3. Code(s): I48.91 - UNSPECIFIED ATRIAL FIBRILLATION Qualifiers: Atrial fibrillation type: paroxysmal Qualified Code(s): I48.0 - Paroxysmal atrial fibrillation; I48.0 - Paroxysmal atrial fibrillation; I48.0 - Paroxysmal atrial fibrillation; I48.0 - Paroxysmal atrial fibrillation
[2017-07-09] MEDS: fentaNYL 12mcg/hr PATCH.TD72 TD SCH (15:13)
[2017-07-09] MEDS ORDERED: WARFARIN NA 7.5 MG TABLET (FP) PO ONE (18:00)
[2017-07-09] MEDS: MAG HYDROX/AL HYDROX/SIMETH 30 ML UNIT-DOSE CUP PO PRN (18:03)
[2017-07-09] MEDS: SIMETHICONE 80 MG TAB.CHEW (FP) PO SCH (20:22)
[2017-07-09] MEDS: MONTELUKAST NA 10 MG TABLET PO SCH (22:25)
[2017-07-09] MEDS: ATORVASTATIN CA 80 MG TABLET (FP) PO SCH (22:25)
--- NOTE | 2017-07-10 01:33 | PN ---
Progress Note, Physician Chief Complaint: still short of breath at slight exertion,blood sugars improved History of Present Illness: dm, hyperglycemia,insulin resistant,morbid obesity,htn,chf,cad,ashd - Current Medication List Current Medications: Active Medications Acetaminophen (Tylenol -) 650 mg PO Q4H PRN PRN Reason: FEVER OR PAIN Last Admin: 07/09/17 12:06 Dose: 650 mg Al Hydroxide/Mg Hydroxide (Mylanta Oral Suspension -) 30 ml PO Q8H PRN PRN Reason: INDIGESTION Last Admin: 07/09/17 18:03 Dose: 30 ml Aspirin (Asa -) 81 mg PO DAILY [facility] Last Admin: 07/09/17 09:55 Dose: 81 mg Atorvastatin Calcium (Lipitor -) 80 mg PO HS [facility] Last Admin: 07/09/17 22:25 Dose: 80 mg Carvedilol (Coreg -) 3.125 mg PO BID [facility] Last Admin: 07/09/17 22:25 Dose: 3.125 mg Duloxetine HCl (Cymbalta -) 60 mg PO DAILY [facility] Last Admin: 07/09/17 09:55 Dose: 60 mg Fentanyl (Duragesic 12mcg Patch -) 1 patch TD Q72H [facility] Stop: 07/10/17 15:17 Last Admin: 07/09/17 15:13 Dose: 1 patch Furosemide (Lasix Injection -) 80 mg IVPUSH BID@0600,1400 [facility] Last Admin: 07/09/17 14:02 Dose: 80 mg IV Flush (Picc Line Flush) 8 ml IVPUSH PRN PRN PRN Reason: Protocol Ceftriaxone Sodium 2 gm/ (Dextrose) 100 mls @ 200 mls/hr IVPB DAILY [facility] Last Admin: 07/09/17 11:29 Dose: 200 mls/hr Ampicillin Sodium 2 gm/ Sodium (Chloride) 100 mls @ 200 mls/hr IVPB Q4H-IV [facility] Last Admin: 07/09/17 22:24 Dose: 200 mls/hr Insulin Aspart (Novolog Vial Sliding Scale -) 1 vial SQ ACHS MANAN PRN Reason: Protocol Last Admin: 07/09/17 22:29 Dose: 7 units Insulin Detemir (Levemir Vial) 30 units SQ BID@0700,2200 [facility] Last Admin: 07/09/17 22:29 Dose: 30 units Levothyroxine Sodium (Synthroid -) 125 mcg PO DAILY@0700 [facility] Last Admin: 07/09/17 06:16 Dose: 125 mcg Loratadine (Claritin -) 10 mg PO DAILY [facility] Last Admin: 07/09/17 09:55 Dose: 10 mg Methylnaltrexone [place] (Relistor -) 12 mg SQ DAILY [facility] Last Admin: 07/09/17 13:35 Dose: 12 mg Miscellaneous (Duragesic Patch Waste) 1 each TD PRN PRN PRN Reason: PAIN Last Admin: 07/06/17 18:28 Dose: 1 each Montelukast Sodium (Singulair -) 10 mg PO HS [facility] Last Admin: 07/09/17 22:25 Dose: 10 mg Nystatin (Nystop Powder -) 1 applic TP DAILY [facility] Last Admin: 07/09/17 10:34 Dose: 1 applic Pancrelipase (Creon Dr 6,000 Units Capsule) 1 cap PO TIDCM [facility] Last Admin: 07/09/17 18:03 Dose: 1 cap Pantoprazole Sodium (Protonix -) 20 mg PO BID [facility] Last Admin: 07/09/17 22:25 Dose: 20 mg Polyethylene Glycol (Miralax (For Daily Use) -) 17 gm PO DAILY PRN Last Admin: 07/09/17 02:00 Dose: 17 g Ranolazine (Ranexa -) 500 mg PO BID [facility] Last Admin: 07/09/17 22:25 Dose: 500 mg Simethicone (Mylicon -) 40 mg PO BIDPC [facility] Last Admin: 07/09/17 20:22 Dose: 40 mg Tamsulosin HCl (Flomax -) 0.4 mg PO DAILY@0830 [facility] Last Admin: 07/09/17 08:51 Dose: 0.4 mg Ticagrelor (Brilinta) 60 mg PO BID [facility] Last Admin: 07/09/17 22:25 Dose: 60 mg Warfarin Sodium (Coumadin -) 5 mg PO DAILY@1800 [facility] Last Admin: 07/06/17 18:21 Dose: 5 mg - Objective Vital Signs: Vital Signs Temperature 97.4 F L 07/09/17 18:00 Pulse Rate 57 L 07/09/17 18:00 Respiratory Rate 20 07/09/17 18:00 Blood Pressure 123/68 07/09/17 18:00 O2 Sat by Pulse Oximetry (%) 98 07/09/17 09:00 Constitutional: Yes: Well Nourished, Anxious Eyes: Yes: EOM Intact HENT: Yes: Normocephalic Neck: Yes: Trachea Midline Cardiovascular: Yes: Tachycardia, S2 Respiratory: Yes: CTA Bilaterally Gastrointestinal: Yes: Normal Bowel Sounds ...Rectal Exam: Yes: Deferred Genitourinary: Yes: WNL Edema: Yes Edema: LLE: 1+, RLE: 1+ Neurological: Yes: Alert, Oriented Labs: CBC, BMP 07/08/17 05:15 07/08/17 05:15 INR, PTT INR 1.63 (0.82-1.09) H 07/08/17 05:15 Problem List - Problems (1) ASHD (arteriosclerotic heart disease) Code(s): I25.10 - ATHSCL HEART DISEASE OF [place] CORONARY ARTERY W/O ANG PCTRS (2) CAD in [place] artery Code(s): I25.10 - ATHSCL HEART DISEASE OF [place] CORONARY ARTERY W/O ANG PCTRS (3) Chest pain Code(s): R07.9 - CHEST PAIN, UNSPECIFIED Qualifiers: Chest pain type: unspecified Qualified Code(s): R07.9 - Chest pain, unspecified; R07.9 - Chest pain, unspecified (4) Osteomyelitis Code(s): M86.9 - OSTEOMYELITIS, UNSPECIFIED Assessment/Plan Current Active Problems ASHD (arteriosclerotic heart disease) (Acute) CAD in [place] artery (Acute) CHF (congestive heart failure) (Acute) Chest pain (Acute) Encephalopathy (Acute) Hemoglobin drop (Acute) Osteomyelitis (Acute) Pleural effusion (Acute) dm hyperglycmia,morbid obesity insuin resistant Laboratory Results - last 24 hr 07/09/17 07/09/17 07/09/17 05:55 11:00 16:39 POC Glucometer 145 167 217 07/09/17 21:33 POC Glucometer 252 plan: oxygen therapy diuretics as ordered bgm qid novolog insulin levemir 30 uinits bid
[2017-07-10] MEDS: AMPICILLIN - 2 GM in SODIUM CHLORIDE 100 ML IVPB SCH ×6 (02:30→20:59)
[2017-07-10] MEDS: ACETAMINOPHEN 325 MG TABLET (FP) PO PRN ×2 (03:12→21:05)
[2017-07-10] MEDS ORDERED: PT OWN MED DRAWER 7, Y5N ONE ×5 (06:06→20:52)
[2017-07-10] MEDS: LEVOTHYROXINE NA 125 MCG TABLET (FP) PO SCH (06:19)
[2017-07-10] MEDS: FUROSEMIDE 40 MG/4 ML INJECTABLE VIAL IVPUSH SCH ×2 (06:21→14:17)
[2017-07-10] MEDS: INSULIN DETEMIR 100 UNITS/ML MDV SQ SCH ×2 (06:26→21:04)
[2017-07-10] MEDS: INSULIN SLIDING SCALE (NOVOLOG) 1 VIAL SQ SCH ×4 (06:27→21:04)
[2017-07-10 06:57] LABS: INR 3.34 (0.82-1.09); PROTHROMBIN TIME (PATIENT) 37.7 SEC (9.98-11.88)
[2017-07-10] MEDS: LIPASE/PROTEASE/AMYLASE 6,000 UNIT CAPSULE PO SCH ×3 (08:12→16:51)
[2017-07-10] MEDS: TAMSULOSIN HCL 0.4 MG CAP.ER.24H (FP) PO SCH (08:12)
[2017-07-10] MEDS ORDERED: PICC LINE 8 ML FLUSH PROTOCOL IVPUSH PRN (09:10)
--- NOTE | 2017-07-10 09:10 | PN ---
Progress Note, Physician - Current Medication List Current Medications: Active Medications Acetaminophen (Tylenol -) 650 mg PO Q4H PRN PRN Reason: FEVER OR PAIN Last Admin: 07/10/17 03:12 Dose: 650 mg Al Hydroxide/Mg Hydroxide (Mylanta Oral Suspension -) 30 ml PO Q8H PRN PRN Reason: INDIGESTION Last Admin: 07/09/17 18:03 Dose: 30 ml Aspirin (Asa -) 81 mg PO DAILY [facility] Last Admin: 07/09/17 09:55 Dose: 81 mg Atorvastatin Calcium (Lipitor -) 80 mg PO HS [facility] Last Admin: 07/09/17 22:25 Dose: 80 mg Carvedilol (Coreg -) 3.125 mg PO BID [facility] Last Admin: 07/09/17 22:25 Dose: 3.125 mg Duloxetine HCl (Cymbalta -) 60 mg PO DAILY [facility] Last Admin: 07/09/17 09:55 Dose: 60 mg Fentanyl (Duragesic 12mcg Patch -) 1 patch TD Q72H [facility] Stop: 07/10/17 15:17 Last Admin: 07/09/17 15:13 Dose: 1 patch Furosemide (Lasix Injection -) 80 mg IVPUSH BID@0600,1400 [facility] Last Admin: 07/10/17 06:21 Dose: 80 mg IV Flush (Picc Line Flush) 8 ml IVPUSH PRN PRN PRN Reason: Protocol Ceftriaxone Sodium 2 gm/ (Dextrose) 100 mls @ 200 mls/hr IVPB DAILY [facility] Last Admin: 07/09/17 11:29 Dose: 200 mls/hr Ampicillin Sodium 2 gm/ Sodium (Chloride) 100 mls @ 200 mls/hr IVPB Q4H-IV [facility] Last Admin: 07/10/17 06:32 Dose: 200 mls/hr Insulin Aspart (Novolog Vial Sliding Scale -) 1 vial SQ ACHS MANAN PRN Reason: Protocol Last Admin: 07/10/17 06:27 Dose: 5 units Insulin Detemir (Levemir Vial) 30 units SQ BID@0700,2200 [facility] Last Admin: 07/10/17 06:26 Dose: 30 units Levothyroxine Sodium (Synthroid -) 125 mcg PO DAILY@0700 [facility] Last Admin: 07/10/17 06:19 Dose: 125 mcg Loratadine (Claritin -) 10 mg PO DAILY [facility] Last Admin: 07/09/17 09:55 Dose: 10 mg Methylnaltrexone [place] (Relistor -) 12 mg SQ DAILY [facility] Last Admin: 07/09/17 13:35 Dose: 12 mg Miscellaneous (Duragesic Patch Waste) 1 each TD PRN PRN PRN Reason: PAIN Last Admin: 07/06/17 18:28 Dose: 1 each Montelukast Sodium (Singulair -) 10 mg PO HS [facility] Last Admin: 07/09/17 22:25 Dose: 10 mg Nystatin (Nystop Powder -) 1 applic TP DAILY [facility] Last Admin: 07/09/17 10:34 Dose: 1 applic Pancrelipase (Creon Dr 6,000 Units Capsule) 1 cap PO TIDCM [facility] Last Admin: 07/10/17 08:12 Dose: 1 cap Pantoprazole Sodium (Protonix -) 20 mg PO BID [facility] Last Admin: 07/09/17 22:25 Dose: 20 mg Polyethylene Glycol (Miralax (For Daily Use) -) 17 gm PO DAILY PRN Last Admin: 07/09/17 02:00 Dose: 17 g Ranolazine (Ranexa -) 500 mg PO BID [facility] Last Admin: 07/09/17 22:25 Dose: 500 mg Simethicone (Mylicon -) 40 mg PO BIDPC [facility] Last Admin: 07/09/17 20:22 Dose: 40 mg Tamsulosin HCl (Flomax -) 0.4 mg PO DAILY@0830 [facility] Last Admin: 07/10/17 08:12 Dose: 0.4 mg Ticagrelor (Brilinta) 60 mg PO BID [facility] Last Admin: 07/09/17 22:25 Dose: 60 mg Warfarin Sodium (Coumadin -) 5 mg PO DAILY@1800 [facility] Last Admin: 07/06/17 18:21 Dose: 5 mg - Objective Vital Signs: Vital Signs Temperature 98.1 F 07/10/17 06:00 Pulse Rate 48 L 07/10/17 06:00 Respiratory Rate 18 07/10/17 06:00 Blood Pressure 111/53 07/10/17 06:00 O2 Sat by Pulse Oximetry (%) 98 07/09/17 21:00 Labs: CBC, BMP 07/08/17 05:15 07/08/17 05:15 INR, PTT INR 3.34 (0.82-1.09) H D 07/10/17 06:15
[2017-07-10 09:34] LABS: BASOPHIL 0.8 % (0-2.0); EOSINOPHIL 5.8 % (0-4.5); MCH 27.3 pg (25.7-33.7); MCHC 32.5 g/dl (32.0-35.9); MEAN PLT VOLUME 9.1 fl (7.5-11.1); NEUTROPHILS 72.1 % (42.8-82.8); PLATELET COUNT 238 K/MM3 (134-434); RDW 18.8 % (11.9-15.9); WHITE BLOOD COUNT 6.2 K/mm3 (4.0-10.0)
[2017-07-10] MEDS: SIMETHICONE 80 MG TAB.CHEW (FP) PO SCH ×2 (09:49→18:23)
[2017-07-10] MEDS: ASPIRIN 81 MG CHEWABLE TABLETS PO SCH (09:51)
[2017-07-10 09:52] LABS: CALCIUM 7.6 mg/dL (8.5-10.1)
[2017-07-10] MEDS: PANTOPRAZOLE 20 MG TABLET (FP) PO SCH ×2 (09:53→20:59)
[2017-07-10] MEDS: DULoxetine HCL 30 MG CAPSULE.DR (FP) PO SCH (09:53)
[2017-07-10] MEDS: RANOLAZINE E.R. 500 MG TABLET (FP) PO SCH ×2 (09:53→20:59)
[2017-07-10] MEDS: CEFTRIAXONE 2 GM in DEXTROSE 5%-WATER - 100 ML IVPB SCH (09:54)
[2017-07-10] MEDS: LORATADINE 10 MG TABLET PO SCH (09:54)
[2017-07-10] MEDS: Methylnaltrexone Bromide 12 MG/0.6 ML KIT SQ SCH (09:56)
[2017-07-10] MEDS: TICAGRELOR 60 MG TABLET PO SCH ×2 (09:57→21:05)
[2017-07-10 09:58] LABS: ALBUMIN 2.5 g/dl (3.4-5.0); ALK PHOS 91 U/L (45-117); ANION GAP 7 (8-16); BILIRUBIN,TOTAL 0.5 mg/dL (0.2-1.0); CO2 31 mmol/L (21-32); CREATININE 1.3 mg/dL (0.7-1.3); GLUCOSE,RANDOM 204 mg/dL (74-106); SGOT/AST 14 U/L (15-37); SGPT/ALT 15 U/L (12-78); TOT PROT 6.5 g/dl (6.4-8.2)
[2017-07-10] MEDS: NYSTATIN POWDER 100,000 UNITS/GM - 15 GM TOPICAL POWDER TP SCH (10:23)
[2017-07-10] MEDS ORDERED: INSULIN (NOVOLOG) ASPART 100 UNITS/ML 10ML VIAL ONE (12:20)
[2017-07-10] MEDS: CARVEDILOL 3.125 MG TABLET (FP) PO SCH ×2 (12:25→21:04)
--- NOTE | 2017-07-10 14:23 | PN ---
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 Was at assisted when noted PICC line was out and patient had confusion along with sob. In ER, patient c/o chest pain and sob. CXR with congestion. BNP elevated. Given IV lasix with improvement - Current Medication List Current Medications: Active Medications Acetaminophen (Tylenol -) 650 mg PO Q4H PRN PRN Reason: FEVER OR PAIN Last Admin: 07/10/17 03:12 Dose: 650 mg Al Hydroxide/Mg Hydroxide (Mylanta Oral Suspension -) 30 ml PO Q8H PRN PRN Reason: INDIGESTION Last Admin: 07/09/17 18:03 Dose: 30 ml Aspirin (Asa -) 81 mg PO DAILY [facility] Last Admin: 07/10/17 09:51 Dose: 81 mg Atorvastatin Calcium (Lipitor -) 80 mg PO HS [facility] Last Admin: 07/09/17 22:25 Dose: 80 mg Carvedilol (Coreg -) 3.125 mg PO BID [facility] Last Admin: 07/10/17 12:25 Dose: Not Given Duloxetine HCl (Cymbalta -) 60 mg PO DAILY [facility] Last Admin: 07/10/17 09:53 Dose: 60 mg Fentanyl (Duragesic 12mcg Patch -) 1 patch TD Q72H [facility] Stop: 07/10/17 15:17 Last Admin: 07/09/17 15:13 Dose: 1 patch Furosemide (Lasix Injection -) 80 mg IVPUSH BID@0600,1400 [facility] Last Admin: 07/10/17 14:17 Dose: 80 mg IV Flush (Picc Line Flush) 8 ml IVPUSH PRN PRN PRN Reason: Protocol IV Flush (Picc Line Flush) 8 ml IVPUSH PRN PRN PRN Reason: Protocol Ceftriaxone Sodium 2 gm/ (Dextrose) 100 mls @ 200 mls/hr IVPB DAILY [facility] Last Admin: 07/10/17 09:54 Dose: 200 mls/hr Ampicillin Sodium 2 gm/ Sodium (Chloride) 100 mls @ 200 mls/hr IVPB Q4H-IV [facility] Last Admin: 07/10/17 14:17 Dose: 200 mls/hr Insulin Aspart (Novolog Vial Sliding Scale -) 1 vial SQ ACHS [facility]NA[facility] PRN Reason: Protocol Last Admin: 07/10/17 12:21 Dose: 8 units Insulin Detemir (Levemir Vial) 30 units SQ BID@0700,2200 [facility] Last Admin: 07/10/17 06:26 Dose: 30 units Levothyroxine Sodium (Synthroid -) 125 mcg PO DAILY@0700 [facility] Last Admin: 07/10/17 06:19 Dose: 125 mcg Loratadine (Claritin -) 10 mg PO DAILY [facility] Last Admin: 07/10/17 09:54 Dose: 10 mg Methylnaltrexone [place] (Relistor -) 12 mg SQ DAILY [facility] Last Admin: 07/10/17 09:56 Dose: 12 mg Miscellaneous (Duragesic Patch Waste) 1 each TD PRN PRN PRN Reason: PAIN Last Admin: 07/06/17 18:28 Dose: 1 each Montelukast Sodium (Singulair -) 10 mg PO HS [facility] Last Admin: 07/09/17 22:25 Dose: 10 mg Nystatin (Nystop Powder -) 1 applic TP DAILY [facility] Last Admin: 07/10/17 10:23 Dose: 1 applic Pancrelipase (Creon Dr 6,000 Units Capsule) 1 cap PO TIDCM [facility] Last Admin: 07/10/17 12:23 Dose: 1 cap Pantoprazole Sodium (Protonix -) 20 mg PO BID [facility] Last Admin: 07/10/17 09:53 Dose: 20 mg Polyethylene Glycol (Miralax (For Daily Use) -) 17 gm PO DAILY [facility] Last Admin: 07/09/17 02:00 Dose: 17 g Ranolazine (Ranexa -) 500 mg PO BID [facility] Last Admin: 07/10/17 09:53 Dose: 500 mg Simethicone (Mylicon -) 40 mg PO BIDPC [facility] Last Admin: 07/10/17 09:49 Dose: 40 mg Tamsulosin HCl (Flomax -) 0.4 mg PO DAILY@0830 [facility] Last Admin: 07/10/17 08:12 Dose: 0.4 mg Ticagrelor (Brilinta) 60 mg PO BID [facility] Last Admin: 07/10/17 09:57 Dose: 60 mg Warfarin Sodium (Coumadin -) 5 mg PO DAILY@1800 [facility] Last Admin: 07/06/17 18:21 Dose: 5 mg - Objective Vital Signs: Vital Signs Temperature 97.8 F 07/10/17 09:00 Pulse Rate 63 07/10/17 09:00 Respiratory Rate 18 07/10/17 09:00 Blood Pressure 119/63 07/10/17 09:00 O2 Sat by Pulse Oximetry (%) 98 07/10/17 09:00 Constitutional: Yes: No Distress Eyes: Yes: Conjunctiva Clear, EOM Intact HENT: Yes: Atraumatic, Normocephalic Neck: Yes: Trachea Midline Cardiovascular: Yes: JVD Respiratory: Yes: CTA Bilaterally Gastrointestinal: Yes: Normal Bowel Sounds, Soft Edema: Yes Edema: LLE: 1+, RLE: 1+ Labs: CBC, BMP 07/10/17 09:30 07/10/17 09:30 INR, PTT INR 3.34 (0.82-1.09) H D 07/10/17 06:15 Problem List - Problems (1) CHF (congestive heart failure) Assessment/Plan: slowly improving. continue IV lasix. follow daily wts. increase coreg to 6.25 bid and add lisinopril 5 mg daily if bp and HR are stable starting tomorrow. Code(s): I50.9 - HEART FAILURE, UNSPECIFIED Qualifiers: Congestive heart failure type: unspecified congestive heart failure type Congestive heart failure chronicity: acute on chronic Qualified Code(s ): I50.9 - Heart failure, unspecified; I50.9 - Heart failure, unspecified; I50.9 - Heart failure, unspecified; I50.9 - Heart failure, unspecified (2) CAD in [place] artery Assessment/Plan: no need for brilinta at this point. continue asa and low dose bb. No angina. Code(s): I25.10 - ATHSCL HEART DISEASE OF [place] CORONARY ARTERY W/O ANG PCTRS (3) Atrial fibrillation Assessment/Plan: continue coumadin for INR 2-3. Code(s): I48.91 - UNSPECIFIED ATRIAL FIBRILLATION Qualifiers: Atrial fibrillation type: paroxysmal Qualified Code(s): I48.0 - Paroxysmal atrial fibrillation; I48.0 - Paroxysmal atrial fibrillation; I48.0 - Paroxysmal atrial fibrillation; I48.0 - Paroxysmal atrial fibrillation
[2017-07-10] MEDS: MONTELUKAST NA 10 MG TABLET PO SCH (20:59)
[2017-07-10] MEDS: ATORVASTATIN CA 80 MG TABLET (FP) PO SCH (20:59)
--- NOTE | 2017-07-10 22:35 | EKG ---
Test Reason : Blood Pressure : / mmHG Vent. Rate : 057 BPM Atrial Rate : 068 BPM P-R Int : 000 ms QRS Dur : 148 ms QT Int : 458 ms P-R-T Axes : 008 -15 -88 degrees QTc Int : 445 ms JUNCTIONAL RHYTHM WITH AV DISASSOCIATION RIGHT BUNDLE BRANCH BLOCK ANTEROLATERAL INFARCT (CITED ON OR BEFORE 18-DEC-2015) ABNORMAL ECG WHEN COMPARED WITH ECG OF 05-JUL-2017 02:56, FOLLOWUP EKG AND CLINICAL CORRELATION RECOMMENDED Confirmed by STALIN WESTBROOK MD ([id number]) on 07/10/2017 10:35:12 PM Referred By: Confirmed By:STALIN WESTBROOK MD
--- NOTE | 2017-07-10 22:44 | EKG ---
Test Reason : Blood Pressure : / mmHG Vent. Rate : 055 BPM Atrial Rate : 060 BPM P-R Int : 000 ms QRS Dur : 144 ms QT Int : 470 ms P-R-T Axes : 000 008 250 degrees QTc Int : 449 ms JUNCTIONAL ESCAPE RHYTHMWITH AV DISASSOCITION VENTRICULAR PREMATURE BEATS RIGHT BUNDLE BRANCH BLOCK ANTEROSEPTAL INFARCT (CITED ON OR BEFORE 18-DEC-2015) ABNORMAL ECG WHEN COMPARED WITH ECG OF 04-JUL-2017 09:00, CLINICAL CORRELATION IS RECOMMENDED FOLLOW UP EKG Confirmed by STALIN WESTBROOK MD ([id number]) on 07/10/2017 10:44:35 PM Referred By: Confirmed By:STALIN WESTBROOK MD
--- NOTE | 2017-07-10 22:47 | EKG ---
Test Reason : Blood Pressure : / mmHG Vent. Rate : 052 BPM Atrial Rate : 086 BPM P-R Int : 000 ms QRS Dur : 144 ms QT Int : 472 ms P-R-T Axes : 000 005 -87 degrees QTc Int : 438 ms JUNCTIOAL ESCAPE RHYTHM WITH AV DISASSOCTION RIGHT BUNDLE BRANCH BLOCK ANTEROSEPTAL INFARCT , AGE UNDETERMINED ABNORMAL ECG WHEN COMPARED WITH ECG OF 03-JUL-2017 12:56, NO MAJOR CHANGE SEEN CLINICAL CORRELATION IS RECOMMENDED Confirmed by STALIN WESTBROOK MD ([id number]) on 07/10/2017 10:46:40 PM Referred By: Confirmed By:STALIN WESTBROOK MD
[2017-07-11] MEDS: AMPICILLIN - 2 GM in SODIUM CHLORIDE 100 ML IVPB SCH ×6 (00:59→20:48)
[2017-07-11] MEDS: INSULIN SLIDING SCALE (NOVOLOG) 1 VIAL SQ SCH ×4 (06:05→21:55)
[2017-07-11] MEDS: FUROSEMIDE 40 MG/4 ML INJECTABLE VIAL IVPUSH SCH (06:14)
[2017-07-11] MEDS: LEVOTHYROXINE NA 125 MCG TABLET (FP) PO SCH (06:26)
[2017-07-11] MEDS: INSULIN DETEMIR 100 UNITS/ML MDV SQ SCH ×2 (07:38→21:39)
[2017-07-11 07:55] LABS: INR 4.16 (0.82-1.09)
[2017-07-11] MEDS: CEFTRIAXONE 2 GM in DEXTROSE 5%-WATER - 100 ML IVPB SCH ×2 (09:12→21:39)
[2017-07-11] MEDS: SIMETHICONE 80 MG TAB.CHEW (FP) PO SCH ×3 (09:13→18:27)
[2017-07-11] MEDS: DULoxetine HCL 30 MG CAPSULE.DR (FP) PO SCH (09:13)
[2017-07-11] MEDS: CARVEDILOL 3.125 MG TABLET (FP) PO SCH ×2 (09:14→21:39)
[2017-07-11] MEDS: TAMSULOSIN HCL 0.4 MG CAP.ER.24H (FP) PO SCH (09:14)
[2017-07-11] MEDS: LORATADINE 10 MG TABLET PO SCH (09:14)
[2017-07-11] MEDS: PANTOPRAZOLE 20 MG TABLET (FP) PO SCH ×2 (09:14→21:39)
[2017-07-11] MEDS: ASPIRIN 81 MG CHEWABLE TABLETS PO SCH (09:14)
[2017-07-11] MEDS: ACETAMINOPHEN 325 MG TABLET (FP) PO PRN ×3 (09:15→21:54)
[2017-07-11] MEDS: LIPASE/PROTEASE/AMYLASE 6,000 UNIT CAPSULE PO SCH ×4 (09:15→17:16)
--- NOTE | 2017-07-11 09:20 | PN ---
Progress Note, Physician History of Present Illness: c/o intermittent abd pain - Current Medication List Current Medications: Active Medications Acetaminophen (Tylenol -) 650 mg PO Q4H PRN PRN Reason: FEVER OR PAIN Last Admin: 07/11/17 09:15 Dose: 650 mg Al Hydroxide/Mg Hydroxide ([place] Oral Suspension -) 30 ml PO Q8H PRN PRN Reason: INDIGESTION Last Admin: 07/09/17 18:03 Dose: 30 ml Aspirin (Asa -) 81 mg PO DAILY [facility] Last Admin: 07/11/17 09:14 Dose: 81 mg Atorvastatin Calcium (Lipitor -) 80 mg PO HS [facility] Last Admin: 07/10/17 20:59 Dose: 80 mg Carvedilol (Coreg -) 3.125 mg PO BID [facility] Last Admin: 07/11/17 09:14 Dose: 3.125 mg Duloxetine HCl (Cymbalta -) 60 mg PO DAILY [facility] Last Admin: 07/11/17 09:13 Dose: 60 mg Furosemide (Lasix Injection -) 80 mg IVPUSH BID@0600,1400 [facility] Last Admin: 07/11/17 06:14 Dose: 80 mg IV Flush (Picc Line Flush) 8 ml IVPUSH PRN PRN PRN Reason: Protocol IV Flush (Picc Line Flush) 8 ml IVPUSH PRN PRN PRN Reason: Protocol Ceftriaxone Sodium 2 gm/ (Dextrose) 100 mls @ 200 mls/hr IVPB DAILY [facility] Last Admin: 07/11/17 09:12 Dose: 200 mls/hr Ampicillin Sodium 2 gm/ Sodium (Chloride) 100 mls @ 200 mls/hr IVPB Q4H-IV [facility] Last Admin: 07/11/17 09:12 Dose: 200 mls/hr Insulin Aspart (Novolog Vial Sliding Scale -) 1 vial SQ ACHS MANAN PRN Reason: Protocol Last Admin: 07/11/17 06:05 Dose: Not Given Insulin Detemir (Levemir Vial) 30 units SQ BID@0700,2200 [facility] Last Admin: 07/11/17 07:38 Dose: 30 units Levothyroxine Sodium (Synthroid -) 125 mcg PO DAILY@0700 [facility] Last Admin: 07/11/17 06:26 Dose: 125 mcg Loratadine (Claritin -) 10 mg PO DAILY [facility] Last Admin: 07/11/17 09:14 Dose: 10 mg Methylnaltrexone [place] (Relistor -) 12 mg SQ DAILY [facility] Last Admin: 07/10/17 09:56 Dose: 12 mg Miscellaneous (Duragesic Patch Waste) 1 each TD PRN PRN PRN Reason: PAIN Last Admin: 07/06/17 18:28 Dose: 1 each Montelukast Sodium (Singulair -) 10 mg PO HS [facility] Last Admin: 07/10/17 20:59 Dose: 10 mg Nystatin (Nystop Powder -) 1 applic TP DAILY [facility] Last Admin: 07/10/17 10:23 Dose: 1 applic Pancrelipase (Creon Dr 6,000 Units Capsule) 1 cap PO TIDCM [facility] Last Admin: 07/11/17 09:15 Dose: 1 cap Pantoprazole Sodium (Protonix -) 20 mg PO BID [facility] Last Admin: 07/11/17 09:14 Dose: 20 mg Polyethylene Glycol (Miralax (For Daily Use) -) 17 gm PO DAILY [facility] Last Admin: 07/09/17 02:00 Dose: 17 g Ranolazine (Ranexa -) 500 mg PO BID [facility] Last Admin: 07/10/17 20:59 Dose: 500 mg Simethicone (Mylicon -) 40 mg PO BIDPC [facility] Last Admin: 07/11/17 09:13 Dose: 40 mg Tamsulosin HCl (Flomax -) 0.4 mg PO DAILY@0830 [facility] Last Admin: 07/11/17 09:14 Dose: 0.4 mg Ticagrelor (Brilinta) 60 mg PO BID [facility] Last Admin: 07/10/17 21:05 Dose: 60 mg Warfarin Sodium (Coumadin -) 5 mg PO DAILY@1800 [facility] Last Admin: 07/06/17 18:21 Dose: 5 mg - Objective Vital Signs: Vital Signs Temperature 97.6 F 07/11/17 06:00 Pulse Rate 54 L 07/11/17 06:00 Respiratory Rate 20 07/11/17 06:00 Blood Pressure 117/60 07/11/17 06:00 O2 Sat by Pulse Oximetry (%) 98 07/10/17 19:55 Cardiovascular: Yes: Regular Rate and Rhythm Respiratory: Yes: Regular, CTA Bilaterally Gastrointestinal: Yes: Normal Bowel Sounds, Soft, Abdomen, Obese. No: Tenderness Labs: CBC, BMP 07/10/17 09:30 07/10/17 09:30 INR, PTT INR 4.16 (0.82-1.09) H* 07/11/17 05:18 Assessment/Plan - Problems (1) CHF (congestive heart failure) Assessment/Plan: acute systolic heart failure echo done at [facility] show ejection fraction 25-30 percent tele cardio increase iv lasix 80 bid-- po demadex 60 bid daily cxr and weights Code(s): I50.9 - HEART FAILURE, UNSPECIFIED Qualifiers: Congestive heart failure type: unspecified congestive heart failure type Congestive heart failure chronicity: acute on chronic Qualified Code(s ): I50.9 - Heart failure, unspecified; I50.9 - Heart failure, unspecified; I50.9 - Heart failure, unspecified; I50.9 - Heart failure, unspecified (2) ASHD (arteriosclerotic heart disease) Assessment/Plan: -on asa -on brilinta ranexa and coreg Code(s): I25.10 - ATHSCL HEART DISEASE OF [place] CORONARY ARTERY W/O ANG PCTRS (3) Anxiety Assessment/Plan: xanax Code(s): F41.9 - ANXIETY DISORDER, UNSPECIFIED (4) Atrial fibrillation Assessment/Plan: coreg check INR couamdin dosing for inr btw 2-3 inr high--hold coumadin Code(s): I48.91 - UNSPECIFIED ATRIAL FIBRILLATION (5) COPD (chronic obstructive pulmonary disease) Assessment/Plan: bronchodilators singulair claritn Code(s): J44.9 - CHRONIC OBSTRUCTIVE PULMONARY DISEASE, UNSPECIFIED (6) Constipation due to opioid therapy Assessment/Plan: relistor miralax gi Code(s): K59.09 - OTHER CONSTIPATION T40.2X5A - ADVERSE EFFECT OF OTHER OPIOIDS, INITIAL ENCOUNTER (7) Diabetes mellitus, insulin dependent (IDDM), uncontrolled Assessment/Plan: levemir bid hga1c bgm lipid panel Code(s): E10.65 - TYPE 1 DIABETES MELLITUS WITH HYPERGLYCEMIA (8) Hypothyroid Assessment/Plan: tsh resume synthroid 100 Code(s): E03.9 - HYPOTHYROIDISM, UNSPECIFIED (9) Osteomyelitis Assessment/Plan: picc line then snf per [facility] discharge notes ampicilin 2grm q4 for 4 weeks till 11/18 rocephin 2gm bid for 4 weeks ID and ORTHO Code(s): M86.9 - OSTEOMYELITIS, UNSPECIFIED (10) Confusion Assessment/Plan: CT OF HEAD NAD NEURO NOTED--
[2017-07-11] MEDS: POLYETHYLENE GLYCOL 3350 119 GM BTL PO SCH ×2 (09:46→21:39)
[2017-07-11] MEDS: RANOLAZINE E.R. 500 MG TABLET (FP) PO SCH ×2 (09:55→21:38)
[2017-07-11] MEDS: TORSEMIDE 20 MG TABLET (FP) PO SCH ×2 (09:55→14:00)
[2017-07-11] MEDS: NYSTATIN POWDER 100,000 UNITS/GM - 15 GM TOPICAL POWDER TP SCH ×2 (09:56→12:36)
[2017-07-11] MEDS: TICAGRELOR 60 MG TABLET PO SCH ×2 (09:56→12:37)
[2017-07-11] MEDS: Methylnaltrexone Bromide 12 MG/0.6 ML KIT SQ SCH ×2 (09:56→12:38)
--- NOTE | 2017-07-11 11:55 | PN ---
Progress Note (short form) - Note Progress Note: Patient complaining of intermittent abdominal pain midepigastric +constipation Vital Signs Period Temp Pulse Resp BP Sys/[place] Pulse Ox Last 24 Hr 97.4 F-98.4 F 51-61 20-20 99-152/54-85 98-100 cor-rrr lungs clear abd soft,mild midepigastric pain to deep palpation \ext no edema, erythema of left midleg noted CBC, BMP 07/10/17 09:30 07/10/17 09:30 Microbiology 07/03/17 14:46 Blood - Peripheral Venous Blood Culture - Final NO GROWTH AFTER 5 DAYS INCUBATION 07/03/17 14:46 Blood - Peripheral Venous Blood Culture - Final NO GROWTH AFTER 5 DAYS INCUBATION a/p d/w Dr Savage plan is to continue ampicillin and ceftriaxone for enterococcal bacteremia awaiting Picc line placement INR is elevated antibiotics renewed
[2017-07-11] MEDS ORDERED: PT OWN MED DRAWER 7, Y5N ONE ×4 (12:31→21:35)
--- NOTE | 2017-07-11 15:20 | PN ---
Progress Note, Physician Chief Complaint: less sob, tele neg History of Present Illness: 82 year old with a pmhx of htn, dm, hld, hypothyroidism, diverticulitis, paroxysmal afib, mild asc aortic aneurysm 4.2cm, and CAD s/p stents x2 in 2010 ( thrombectoy and PCI of proximal and mid LAD and PTCA D1 on 12/18/15 at [facility] for aterosptal [place]) who has been treated recently for Leg cellulitis on IV abx. Was at long-term when noted PICC line was out and patient had confusion along with sob. In ER, patient c/o chest pain and sob. CXR with congestion. BNP elevated. Given IV lasix with improvement Now on PO demadex. - Current Medication List Current Medications: Active Medications Acetaminophen (Tylenol -) 650 mg PO Q4H PRN PRN Reason: FEVER OR PAIN Last Admin: 07/11/17 09:15 Dose: 650 mg Al Hydroxide/Mg Hydroxide (Mylanta Oral Suspension -) 30 ml PO Q8H PRN PRN Reason: INDIGESTION Last Admin: 07/09/17 18:03 Dose: 30 ml Aspirin (Asa -) 81 mg PO DAILY [facility] Last Admin: 07/11/17 09:14 Dose: 81 mg Atorvastatin Calcium (Lipitor -) 80 mg PO HS [facility] Last Admin: 07/10/17 20:59 Dose: 80 mg Carvedilol (Coreg -) 3.125 mg PO BID [facility] Last Admin: 07/11/17 09:14 Dose: 3.125 mg Duloxetine HCl (Cymbalta -) 60 mg PO DAILY [facility] Last Admin: 07/11/17 09:13 Dose: 60 mg IV Flush (Picc Line Flush) 8 ml IVPUSH PRN PRN PRN Reason: Protocol IV Flush (Picc Line Flush) 8 ml IVPUSH PRN PRN PRN Reason: Protocol Ampicillin Sodium 2 gm/ Sodium (Chloride) 100 mls @ 200 mls/hr IVPB Q4H [facility] Last Admin: 07/11/17 12:35 Dose: Not Given Ceftriaxone Sodium 2 gm/ (Dextrose) 100 mls @ 200 mls/hr IVPB BID [facility] Insulin Aspart (Novolog Vial Sliding Scale -) 1 vial SQ ACHS MANAN PRN Reason: Protocol Last Admin: 07/11/17 12:26 Dose: 7 units Insulin Detemir (Levemir Vial) 30 units SQ BID@0700,2200 [facility] Last Admin: 07/11/17 07:38 Dose: 30 units Levothyroxine Sodium (Synthroid -) 125 mcg PO DAILY@0700 [facility] Last Admin: 07/11/17 06:26 Dose: 125 mcg Loratadine (Claritin -) 10 mg PO DAILY [facility] Last Admin: 07/11/17 09:14 Dose: 10 mg Methylnaltrexone [place] (Relistor -) 12 mg SQ DAILY [facility] Last Admin: 07/11/17 12:38 Dose: 12 mg Miscellaneous (Duragesic Patch Waste) 1 each TD PRN PRN PRN Reason: PAIN Last Admin: 07/06/17 18:28 Dose: 1 each Montelukast Sodium (Singulair -) 10 mg PO HS [facility] Last Admin: 07/10/17 20:59 Dose: 10 mg Nystatin (Nystop Powder -) 1 applic TP DAILY [facility] Last Admin: 07/11/17 12:36 Dose: 1 applic Pancrelipase (Creon Dr 6,000 Units Capsule) 1 cap PO TIDCM [facility] Last Admin: 07/11/17 12:37 Dose: 1 cap Pantoprazole Sodium (Protonix -) 20 mg PO BID [facility] Last Admin: 07/11/17 09:14 Dose: 20 mg Polyethylene Glycol (Miralax (For Daily Use) -) 17 gm PO BID [facility] Last Admin: 07/11/17 09:46 Dose: 17 grams Ranolazine (Ranexa -) 500 mg PO BID [facility] Last Admin: 07/11/17 09:55 Dose: 500 mg Simethicone (Mylicon -) 40 mg PO BIDPC [facility] Last Admin: 07/11/17 09:13 Dose: 40 mg Tamsulosin HCl (Flomax -) 0.4 mg PO DAILY@0830 [facility] Last Admin: 07/11/17 09:14 Dose: 0.4 mg Ticagrelor (Brilinta) 60 mg PO BID [facility] Last Admin: 07/11/17 12:37 Dose: 60 mg Torsemide (Demadex -) 60 mg PO BIDLASIX [facility] Last Admin: 07/11/17 09:55 Dose: 60 mg - Objective Vital Signs: Vital Signs Temperature 97.9 F 07/11/17 10:22 Pulse Rate 57 L 07/11/17 10:22 Respiratory Rate 20 07/11/17 10:22 Blood Pressure 99/54 07/11/17 10:22 O2 Sat by Pulse Oximetry (%) 100 07/11/17 09:00 Constitutional: Yes: No Distress, Calm Eyes: Yes: Conjunctiva Clear, EOM Intact HENT: Yes: Atraumatic, Normocephalic Neck: Yes: Supple, Trachea Midline Cardiovascular: Yes: Pulse Irregular Respiratory: Yes: CTA Bilaterally Musculoskeletal: Yes: WNL Extremities: Yes: WNL Edema: Yes Edema: LLE: 1+, RLE: 1+ Peripheral Pulses WNL: Yes Labs: CBC, BMP 07/10/17 09:30 07/10/17 09:30 INR, PTT INR 4.16 (0.82-1.09) H* 07/11/17 05:18 Problem List - Problems (1) CHF (congestive heart failure) Assessment/Plan: improving. continue PO demodex follow daily wts. continue coreg 3.125 bid (baseline bradycardia) and add lisinopril 5 mg daily if bp and HR are stable as outpatient. will see as needed. Code(s): I50.9 - HEART FAILURE, UNSPECIFIED Qualifiers: Congestive heart failure type: unspecified congestive heart failure type Congestive heart failure chronicity: acute on chronic Qualified Code(s ): I50.9 - Heart failure, unspecified; I50.9 - Heart failure, unspecified; I50.9 - Heart failure, unspecified; I50.9 - Heart failure, unspecified (2) CAD in [place] artery Assessment/Plan: no need for brilinta at this point. continue asa and low dose bb, ranexa. No angina. Code(s): I25.10 - ATHSCL HEART DISEASE OF [place] CORONARY ARTERY W/O ANG PCTRS (3) Atrial fibrillation Assessment/Plan: stable on medications. continue coumadin for INR 2-3. Code(s): I48.91 - UNSPECIFIED ATRIAL FIBRILLATION Qualifiers: Atrial fibrillation type: paroxysmal Qualified Code(s): I48.0 - Paroxysmal atrial fibrillation; I48.0 - Paroxysmal atrial fibrillation; I48.0 - Paroxysmal atrial fibrillation; I48.0 - Paroxysmal atrial fibrillation
--- NOTE | 2017-07-11 20:29 | CON.GI ---
Consult Consult Specialty:: GI Referred by:: Dr Rowan Reason for Consultation:: Constipation - History of Present Illness Chief Complaint: constipation and abdominal pain History of Present Illness: 82 M well-known to our service, with h/o HTN, HLD, DM, CAD s/p stents, AF on AC (Brilinta + ASA) recent LLE tib-fib fracture with subsequent osteomyelitis S/P Home IV ABRx, and dementia. He was admitted with chest pain and SOB. Called for constipation, a common problem for him. He tends to exaggerate the problem and tells his nurse that he is not having BMs but he has had witnessed BMs every day since admission. He is on relistor and miralax. 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 No: Alzheimer's Cardio/Vascular: Yes: Aneurysm (mild ascending aortic aneurysm (4.2 cm) per chest CT), CAD (stents x2 in 2010; thrombectomy & PCI of proximal and mid LAD with Promus Premier stents and PTCA of D1 on 12/18/15 at [facility] for acute/ subacute anteroseptal [place]), HTN, Hyperlipdemia, Other (ischemic cardiomyopathy ( LVEF 34% per 02/16/16 nuclear study)) Gastrointestinal: Yes: Constipation, Diverticulosis Musculoskeletal: Yes: Other (rib fx's right) Endocrine: Yes: Diabetes Mellitus, Hypothyroidism - Past Surgical History Past Surgical History: Yes: Arthrosocopy (Right knee arthroscopy w/ partial medial and lateral meniscectomy 09/01/15), Colectomy - Alcohol/Substance Use Hx Alcohol Use: No History of Substance Use: reports: None - Smoking History Smoking history: Unknown if ever smoked Have you smoked in the past 12 months: No Aproximately how many cigarettes per day: 0 - Social History Usual Living Arrangement: Group Home (since last d/c) 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 History of Recent Travel: No Home Medications - Allergies Allergies/Adverse Reactions: Allergies Allergy/AdvReac Type Severity Reaction Status Date / Time No Known Drug Allergies Allergy Verified 07/03/17 12:43 - Home Medications Home Medications: Ambulatory Orders Acetaminophen [Pain Relief] 650 mg PO PRN PRN 07/29/16 Albuterol 2.5/Ipratropium 0.5 [Duoneb -] 1 neb NEB Q4H PRN 07/29/16 Alprazolam [Xanax] 0.25 mg PO BID 07/29/16 Bacitracin - [Bacitracin Topical Ointment -] 1 applic TP DAILY 07/29/16 Carvedilol 3.125 mg PO BID 07/29/16 Cetirizine HCl [Zyrtec -] 10 mg PO DAILY 07/29/16 Duloxetine HCl [Cymbalta] 60 mg PO DAILY 07/29/16 Gabapentin 200 mg PO BID 07/29/16 Lipase/Protease/Amylase [Creon Dr 6,000 Units Capsule] 1 cap PO TID 07/29/16 Methylnaltrexone [place] [Relistor] 12 mg SQ DAILY 07/29/16 Montelukast Na [Singulair -] 10 mg PO HS 07/29/16 Omeprazole 20 mg PO BID 07/29/16 Polyethylene Glycol 3350 [Miralax 119 gm Btl -] 17 gm PO DAILY 07/29/16 Tamsulosin HCl [Flomax] 0.4 mg PO DAILY 07/29/16 Ticagrelor [Brilinta] 90 mg PO BID 07/29/16 Aspirin Coated [Ecotrin -] 81 mg PO DAILY tablet.ec 08/04/16 Ranolazine [Ranexa -] 500 mg PO BID tab 08/04/16 Insulin (Levemir) [Levemir Vial] 25 units SQ BIDI ml 10/10/16 Spironolactone [Aldactone -] 25 mg PO DAILY #30 tablet 10/10/16 Warfarin Na [Coumadin -] 5 mg PO DAILY@1800 #20 tablet 10/10/16 Acetaminophen [Tylenol .Regular Strength -] 650 mg PO Q4H PRN #0 tablet Ampicillin - [Ampicillin 2 gm Ivpb (Pre-Docked)] 2 gm IVPB DAILY 07/03/17 Ceftriaxone Na/Dextrose,Iso [Ceftriaxone 2 gm Piggyback] 2 gm IV DAILY 07/03/17 Famotidine [Pepcid] 20 mg PO DAILY 07/03/17 Atorvastatin Ca [Lipitor] 80 mg PO HS tablet 07/06/17 Furosemide Injection [Lasix Injection -] 60 mg IVPUSH BID@0600,1400 vial Insulin Sliding Scale [Novolog Vial Sliding Scale -] 1 vial SQ ACHS units 07/06 Levothyroxine [Synthroid -] 125 mcg PO DAILY@0700 tablet 07/06/17 Nystatin Powder [Nystop Powder -] 1 applic TP DAILY applic 07/06/17 Physical Exam-GI Vital Signs: Vital Signs Temperature 97.6 F 07/11/17 14:00 Pulse Rate 56 L 07/11/17 14:00 Respiratory Rate 20 07/11/17 10:22 Blood Pressure 134/65 07/11/17 14:00 O2 Sat by Pulse Oximetry (%) 100 07/11/17 09:00 Constitutional: Yes: Anxious, Moderate Distress HENT: Yes: Normocephalic Cardiovascular: Yes: Pulse Irregular Respiratory: Yes: CTA Bilaterally Gastrointestinal Inspection: Yes: WNL (obese) ...Auscultate: Yes: Normoactive Bowel Sounds ...Palpate: Yes: Soft, Tenderness (mild diffuse) Labs: CBC, BMP 07/10/17 09:30 07/10/17 09:30 INR, PTT INR 4.16 (0.82-1.09) H* 07/11/17 05:18 Hepatic Panel Total Bilirubin 0.5 mg/dL (0.2-1.0) D 07/10/17 09:30 AST 14 U/L (15-37) L 07/10/17 09:30 ALT 15 U/L (12-78) 07/10/17 09:30 Alkaline Phosphatase 91 U/L (45-117) 07/10/17 09:30 Albumin 2.5 g/dl (3.4-5.0) L 07/10/17 09:30 Assessment/Plan Patient with constipation being adequately treated at this time. He is somewhat hypochondriacal. Will revieew abd film done today-official read currently pending. Cursory review suggests stool in colon and non-specific bowel gas pattern. No evidence of obstruction.
[2017-07-11] MEDS: MAG HYDROX/AL HYDROX/SIMETH 30 ML UNIT-DOSE CUP PO PRN (20:47)
[2017-07-11] MEDS: ATORVASTATIN CA 80 MG TABLET (FP) PO SCH (21:38)
[2017-07-11] MEDS: MONTELUKAST NA 10 MG TABLET PO SCH (21:39)
[2017-07-11] MEDS ORDERED: INSULIN (NOVOLOG) ASPART 100 UNITS/ML 10ML VIAL ONE (21:52)
[2017-07-12] MEDS ORDERED: PT OWN MED DRAWER 7, Y5N ONE ×4 (00:46→21:23)
[2017-07-12] MEDS: AMPICILLIN - 2 GM in SODIUM CHLORIDE 100 ML IVPB SCH ×6 (00:49→21:32)
[2017-07-12] MEDS: TORSEMIDE 20 MG TABLET (FP) PO SCH ×2 (06:20→13:12)
[2017-07-12] MEDS: LEVOTHYROXINE NA 125 MCG TABLET (FP) PO SCH (06:20)
[2017-07-12] MEDS: INSULIN DETEMIR 100 UNITS/ML MDV SQ SCH ×3 (06:23→21:54)
[2017-07-12] MEDS: INSULIN SLIDING SCALE (NOVOLOG) 1 VIAL SQ SCH ×4 (06:24→21:55)
[2017-07-12 07:53] LABS: EOSINOPHIL 6.4 % (0-4.5); MCH 27.6 pg (25.7-33.7); MCHC 32.6 g/dl (32.0-35.9); MEAN CELL VOLUME 84.8 fl (80-96); MEAN PLT VOLUME 9.1 fl (7.5-11.1); NEUTROPHILS 67.9 % (42.8-82.8); PLATELET COUNT 220 K/MM3 (134-434); RDW 19.2 % (11.9-15.9); WHITE BLOOD COUNT 6.3 K/mm3 (4.0-10.0)
[2017-07-12 08:13] LABS: INR 2.73 (0.82-1.09); PROTHROMBIN TIME (PATIENT) 30.8 SEC (9.98-11.88)
[2017-07-12 08:35] LABS: ALBUMIN 2.7 g/dl (3.4-5.0); ALK PHOS 106 U/L (45-117); BILIRUBIN,TOTAL 0.3 mg/dL (0.2-1.0); CALCIUM 7.9 mg/dL (8.5-10.1); CO2 33 mmol/L (21-32); CREATININE 1.3 mg/dL (0.7-1.3); GLUCOSE,RANDOM 61 mg/dL (74-106); SGOT/AST 12 U/L (15-37); SGPT/ALT 14 U/L (12-78); TOT PROT 6.9 g/dl (6.4-8.2)
[2017-07-12 08:44] LABS: ANION GAP 7 (8-16)
[2017-07-12] MEDS: CEFTRIAXONE 2 GM in DEXTROSE 5%-WATER - 100 ML IVPB SCH ×2 (09:14→21:56)
[2017-07-12] MEDS: DULoxetine HCL 30 MG CAPSULE.DR (FP) PO SCH (09:15)
[2017-07-12] MEDS: LORATADINE 10 MG TABLET PO SCH (09:15)
[2017-07-12] MEDS: CARVEDILOL 3.125 MG TABLET (FP) PO SCH ×2 (09:15→21:53)
[2017-07-12] MEDS: ASPIRIN 81 MG CHEWABLE TABLETS PO SCH (09:15)
[2017-07-12] MEDS: SIMETHICONE 80 MG TAB.CHEW (FP) PO SCH ×2 (09:15→17:38)
[2017-07-12] MEDS: TAMSULOSIN HCL 0.4 MG CAP.ER.24H (FP) PO SCH (09:15)
[2017-07-12] MEDS: RANOLAZINE E.R. 500 MG TABLET (FP) PO SCH ×2 (09:15→21:53)
[2017-07-12] MEDS: PANTOPRAZOLE 20 MG TABLET (FP) PO SCH ×2 (09:15→21:52)
[2017-07-12] MEDS: LIPASE/PROTEASE/AMYLASE 6,000 UNIT CAPSULE PO SCH ×3 (09:16→17:38)
[2017-07-12] MEDS: Methylnaltrexone Bromide 12 MG/0.6 ML KIT SQ SCH (09:16)
[2017-07-12] MEDS: NYSTATIN POWDER 100,000 UNITS/GM - 15 GM TOPICAL POWDER TP SCH (09:16)
[2017-07-12] MEDS: POLYETHYLENE GLYCOL 3350 119 GM BTL PO SCH ×2 (09:16→21:56)
--- NOTE | 2017-07-12 09:35 | DS ---
Physical Examination Vital Signs: Vital Signs Temperature 97.8 F 07/12/17 09:33 Pulse Rate 56 L 07/12/17 09:33 Respiratory Rate 20 07/12/17 09:33 Blood Pressure 131/65 07/12/17 09:33 O2 Sat by Pulse Oximetry (%) 99 07/11/17 21:00 Cardiovascular: Yes: S1, S2 Respiratory: Yes: Regular, CTA Bilaterally Gastrointestinal: Yes: Normal Bowel Sounds, Soft, Abdomen, Obese Labs: CBC, BMP 07/12/17 05:25 07/12/17 05:25 Discharge Summary Reason For Visit: CHF/HYPERVOLEMIA Current Active Problems ASHD (arteriosclerotic heart disease) (Acute) CAD in [place] artery (Acute) CHF (congestive heart failure) (Acute) Chest pain (Acute) Encephalopathy (Acute) Hemoglobin drop (Acute) Osteomyelitis (Acute) Pleural effusion (Acute) Hospital Course: - Problems (1) CHF (congestive heart failure) Assessment/Plan: acute systolic heart failure echo done at [facility] show ejection fraction 25-30 percent tele cardio increase iv lasix 80 bid-- po demadex 60 bid daily cxr and weights Code(s): I50.9 - HEART FAILURE, UNSPECIFIED Qualifiers: Congestive heart failure type: unspecified congestive heart failure type Congestive heart failure chronicity: acute on chronic Qualified Code(s ): I50.9 - Heart failure, unspecified; I50.9 - Heart failure, unspecified; I50.9 - Heart failure, unspecified; I50.9 - Heart failure, unspecified (2) ASHD (arteriosclerotic heart disease) Assessment/Plan: -on asa -on brilinta ranexa and coreg Code(s): I25.10 - ATHSCL HEART DISEASE OF [place] CORONARY ARTERY W/O ANG PCTRS (3) Anxiety Assessment/Plan: xanax Code(s): F41.9 - ANXIETY DISORDER, UNSPECIFIED (4) Atrial fibrillation Assessment/Plan: coreg check INR couamdin dosing for inr btw 2-3 inr high--hold coumadin Code(s): I48.91 - UNSPECIFIED ATRIAL FIBRILLATION (5) COPD (chronic obstructive pulmonary disease) Assessment/Plan: bronchodilators singulair claritn Code(s): J44.9 - CHRONIC OBSTRUCTIVE PULMONARY DISEASE, UNSPECIFIED (6) Constipation due to opioid therapy Assessment/Plan: relistor miralax gi Code(s): K59.09 - OTHER CONSTIPATION T40.2X5A - ADVERSE EFFECT OF OTHER OPIOIDS, INITIAL ENCOUNTER (7) Diabetes mellitus, insulin dependent (IDDM), uncontrolled Assessment/Plan: levemir bid hga1c bgm lipid panel Code(s): E10.65 - TYPE 1 DIABETES MELLITUS WITH HYPERGLYCEMIA (8) Hypothyroid Assessment/Plan: tsh resume synthroid 100 Code(s): E03.9 - HYPOTHYROIDISM, UNSPECIFIED (9) Osteomyelitis Assessment/Plan: picc line then snf per [facility] discharge notes ampicilin 2grm q4 for 4 weeks till 08/11 rocephin 2gm bid for 4 weeks ID and ORTHO Code(s): M86.9 - OSTEOMYELITIS, UNSPECIFIED (10) Confusion Assessment/Plan: CT OF HEAD NAD NEURO NOTED-- Condition: Improved - Instructions Referrals: Rodriguez Rowan MD [Primary Care Provider] - Disposition: [facility] - Home Medications Comprehensive Discharge Medication List: Ambulatory Orders Acetaminophen [Pain Relief] 650 mg PO PRN PRN 07/29/16 Albuterol 2.5/Ipratropium 0.5 [Duoneb -] 1 neb NEB Q4H PRN 07/29/16 Alprazolam [Xanax] 0.25 mg PO BID 07/29/16 Bacitracin - [Bacitracin Topical Ointment -] 1 applic TP DAILY 07/29/16 Carvedilol 3.125 mg PO BID 07/29/16 Cetirizine HCl [Zyrtec -] 10 mg PO DAILY 07/29/16 Duloxetine HCl [Cymbalta] 60 mg PO DAILY 07/29/16 Gabapentin 200 mg PO BID 07/29/16 Lipase/Protease/Amylase [Creon Dr 6,000 Units Capsule] 1 cap PO TID 07/29/16 Methylnaltrexone [place] [Relistor] 12 mg SQ DAILY 07/29/16 Montelukast Na [Singulair -] 10 mg PO HS 07/29/16 Omeprazole 20 mg PO BID 07/29/16 Tamsulosin HCl [Flomax] 0.4 mg PO DAILY 07/29/16 Ticagrelor [Brilinta] 90 mg PO BID 07/29/16 Aspirin Coated [Ecotrin -] 81 mg PO DAILY tablet.ec 08/04/16 Ranolazine [Ranexa -] 500 mg PO BID tab 08/04/16 Insulin (Levemir) [Levemir Vial] 25 units SQ BIDI ml 10/10/16 Spironolactone [Aldactone -] 25 mg PO DAILY #30 tablet 10/10/16 Warfarin Na [Coumadin -] 5 mg PO DAILY@1800 #20 tablet 10/10/16 Acetaminophen [Tylenol .Regular Strength -] 650 mg PO Q4H PRN #0 tablet Ampicillin - [Ampicillin 2 gm Ivpb (Pre-Docked)] 2 gm IVPB DAILY 07/03/17 Ceftriaxone Na/Dextrose,Iso [Ceftriaxone 2 gm Piggyback] 2 gm IV DAILY 07/03/17 Famotidine [Pepcid] 20 mg PO DAILY 07/03/17 Atorvastatin Ca [Lipitor] 80 mg PO HS tablet 07/06/17 Insulin Sliding Scale [Novolog Vial Sliding Scale -] 1 vial SQ ACHS units 07/06 Levothyroxine [Synthroid -] 125 mcg PO DAILY@0700 tablet 07/06/17 Nystatin Powder [Nystop Powder -] 1 applic TP DAILY applic 07/06/17 Polyethylene Glycol 3350 [Miralax 119 gm Btl -] 17 gm PO BID bottle 07/12/17 Simethicone [Mylicon -] 40 mg PO BIDPC tab.chew 07/12/17 Torsemide [Demadex -] 60 mg PO BIDLASIX tablet 07/12/17 Warfarin Na [Coumadin] 3 mg PO DAILY #30 tablet 07/12/17
--- NOTE | 2017-07-12 19:48 | PN ---
Progress Note (short form) - Note Progress Note: NEUROLOGY FOLLOW-UP: Events reviewed, patient examined. On synthroid 125 ug qd. WBC now normal. Pt awake, alert, focused and cooperative. [facility], 2006. Trump. Recalls 1 of 3 at 3 mins. - Frontal release findings. Full shafer. No facial. No drift. Absent AJ's. Normal strength. Reduced vibration in feet but Romberg neg. Gait slightly wide-based. Sl shuffle. IMP: Still with mild B/L Cerebral dysfunction But clearly improved since admission with Rx of hypothyroidism and infection. Suggest: Continue Rx. Repeat TSH. Neuro f/u as out patient for continued eval and Rx of OMS. Thank you very much, Fan Hinton MD
[2017-07-12] MEDS: ATORVASTATIN CA 80 MG TABLET (FP) PO SCH (21:53)
[2017-07-12] MEDS: MONTELUKAST NA 10 MG TABLET PO SCH (21:53)
[2017-07-12] MEDS ORDERED: ALPRAZolam 0.25 MG TABLET PO ONE (22:45)
[2017-07-13] MEDS: AMPICILLIN - 2 GM in SODIUM CHLORIDE 100 ML IVPB SCH ×5 (01:19→16:41)
[2017-07-13] MEDS: TORSEMIDE 20 MG TABLET (FP) PO SCH ×2 (06:51→13:27)
[2017-07-13] MEDS: INSULIN SLIDING SCALE (NOVOLOG) 1 VIAL SQ SCH ×3 (06:51→16:41)
[2017-07-13] MEDS: INSULIN DETEMIR 100 UNITS/ML MDV SQ SCH (06:51)
[2017-07-13] MEDS: LEVOTHYROXINE NA 125 MCG TABLET (FP) PO SCH (06:51)
[2017-07-13 08:23] LABS: INR 1.94 (0.82-1.09); PROTHROMBIN TIME (PATIENT) 21.9 SEC (9.98-11.88)
[2017-07-13 08:41] LABS: ANION GAP 8 (8-16); CALCIUM 7.8 mg/dL (8.5-10.1); CO2 33 mmol/L (21-32); CREATININE 1.4 mg/dL (0.7-1.3); GLUCOSE,RANDOM 174 mg/dL (74-106)
--- NOTE | 2017-07-13 08:51 | DS ---
Physical Examination Vital Signs: Vital Signs Temperature 98.1 F 07/13/17 06:00 Pulse Rate 58 L 07/13/17 06:00 Respiratory Rate 16 07/13/17 06:00 Blood Pressure 119/69 07/13/17 06:00 O2 Sat by Pulse Oximetry (%) 99 07/12/17 21:00 Findings/Remarks: feels better Cardiovascular: Yes: S1, S2 Respiratory: Yes: Regular, CTA Bilaterally Gastrointestinal: Yes: Normal Bowel Sounds, Soft Edema: No Labs: CBC, BMP 07/12/17 05:25 Discharge Summary Reason For Visit: CHF/HYPERVOLEMIA Current Active Problems ASHD (arteriosclerotic heart disease) (Acute) CAD in [place] artery (Acute) CHF (congestive heart failure) (Acute) Chest pain (Acute) Encephalopathy (Acute) Hemoglobin drop (Acute) Osteomyelitis (Acute) Pleural effusion (Acute) Hospital Course: - The patient is an 82 year old male with significant history of hypertension, hyperlipidemia, DM, CAD s/p stents, atrial fibrillation, recent LLE tib-fib fracture with h osteomyelitis, and dementia. Approximately 2 weeks ago he presented to the ED for his LLE fracture and cellulitis and was admitted to the hospital for IV Rocephin and Ampicillin. He was transferred to [facility] for further management of his care. Approximately 3 days ago he was discharged to [facility]. Today, [place] staff noticed he had removed his LUE PICC line and sent him to the ED for change in mental status increased confusion and laboured breathing and no relief with nebulizer treatments. On evaluation, the patient complains of chest tightness and shortness of breath that began today. Per [place] records, his doctor also noticed generalized edema that caused concern. 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 No: Alzheimer's Cardiovascular: Yes: Aneurysm (mild ascending aortic aneurysm (4.2 cm) per 01/[address]), CAD (stents x2 in 2010; thrombectomy & PCI of proximal and mid LAD with Promus Premier stents and PTCA of D1 on 12/18/15 at [facility] for acute/ subacute anteroseptal CT), HTN, Hyperlipdemia, Other (ischemic cardiomyopathy ( LVEF 34% per 02/16/16 nuclear study)) Gastrointestinal: Yes: Constipation, Diverticulosis Heme/Onc: Yes: Anemia Musculoskeletal: Yes: Other (rib fx's right) Endocrine: Yes: Diabetes Mellitus, Hypothyroidism - Past Surgical History Past Surgical History: Yes: Arthrosocopy (Right knee arthroscopy w/ partial medial and lateral meniscectomy 09/01/15), Colectomy Problems (1) CHF (congestive heart failure) Assessment/Plan: acute systolic heart failure echo done at [facility] show ejection fraction 25-30 percent tele cardio increase iv lasix 80 bid-- po demadex 60 bid daily cxr and weights Code(s): I50.9 - HEART FAILURE, UNSPECIFIED Qualifiers: Congestive heart failure type: unspecified congestive heart failure type Congestive heart failure chronicity: acute on chronic Qualified Code(s ): I50.9 - Heart failure, unspecified; I50.9 - Heart failure, unspecified; I50.9 - Heart failure, unspecified; I50.9 - Heart failure, unspecified (2) ASHD (arteriosclerotic heart disease) Assessment/Plan: -on asa -on brilinta ranexa and coreg Code(s): I25.10 - ATHSCL HEART DISEASE OF [place] CORONARY ARTERY W/O ANG PCTRS (3) Anxiety Assessment/Plan: xanax Code(s): F41.9 - ANXIETY DISORDER, UNSPECIFIED (4) Atrial fibrillation Assessment/Plan: coreg check INR couamdin dosing for inr btw 2-3 inr high--hold coumadin Code(s): I48.91 - UNSPECIFIED ATRIAL FIBRILLATION (5) COPD (chronic obstructive pulmonary disease) Assessment/Plan: bronchodilators singulair claritn Code(s): J44.9 - CHRONIC OBSTRUCTIVE PULMONARY DISEASE, UNSPECIFIED (6) Constipation due to opioid therapy Assessment/Plan: relistor miralax gi Code(s): K59.09 - OTHER CONSTIPATION T40.2X5A - ADVERSE EFFECT OF OTHER OPIOIDS, INITIAL ENCOUNTER (7) Diabetes mellitus, insulin dependent (IDDM), uncontrolled Assessment/Plan: levemir bid hga1c bgm lipid panel Code(s): E10.65 - TYPE 1 DIABETES MELLITUS WITH HYPERGLYCEMIA (8) Hypothyroid Assessment/Plan: tsh resume synthroid 100 Code(s): E03.9 - HYPOTHYROIDISM, UNSPECIFIED (9) Osteomyelitis Assessment/Plan: picc line then snf per [facility] discharge notes ampicilin 2grm q4 for 4 weeks till 11/18 rocephin 2gm bid for 4 weeks ID and ORTHO Code(s): M86.9 - OSTEOMYELITIS, UNSPECIFIED (10) Confusion Assessment/Plan: CT OF HEAD NAD NEURO NOTED-- Condition: Improved - Instructions Referrals: Rodriguez Rowan MD [Primary Care Provider] - Disposition: [facility] - Home Medications Comprehensive Discharge Medication List: Ambulatory Orders Acetaminophen [Pain Relief] 650 mg PO PRN PRN 07/29/16 Albuterol 2.5/Ipratropium 0.5 [Duoneb -] 1 neb NEB Q4H PRN 07/29/16 Alprazolam [Xanax] 0.25 mg PO BID 07/29/16 Bacitracin - [Bacitracin Topical Ointment -] 1 applic TP DAILY 07/29/16 Carvedilol 3.125 mg PO BID 07/29/16 Cetirizine HCl [Zyrtec -] 10 mg PO DAILY 07/29/16 Duloxetine HCl [Cymbalta] 60 mg PO DAILY 07/29/16 Gabapentin 200 mg PO BID 07/29/16 Lipase/Protease/Amylase [Creon Dr 6,000 Units Capsule] 1 cap PO TID 07/29/16 Methylnaltrexone [place] [Relistor] 12 mg SQ DAILY 07/29/16 Montelukast Na [Singulair -] 10 mg PO HS 07/29/16 Omeprazole 20 mg PO BID 07/29/16 Tamsulosin HCl [Flomax] 0.4 mg PO DAILY 07/29/16 Ticagrelor [Brilinta] 90 mg PO BID 07/29/16 Aspirin Coated [Ecotrin -] 81 mg PO DAILY tablet.ec 08/04/16 Ranolazine [Ranexa -] 500 mg PO BID tab 08/04/16 Insulin (Levemir) [Levemir Vial] 25 units SQ BIDI ml 10/10/16 Spironolactone [Aldactone -] 25 mg PO DAILY #30 tablet 10/10/16 Warfarin Na [Coumadin -] 5 mg PO DAILY@1800 #20 tablet 10/10/16 Acetaminophen [Tylenol .Regular Strength -] 650 mg PO Q4H PRN #0 tablet Ampicillin - [Ampicillin 2 gm Ivpb (Pre-Docked)] 2 gm IVPB DAILY 07/03/17 Ceftriaxone Na/Dextrose,Iso [Ceftriaxone 2 gm Piggyback] 2 gm IV DAILY 07/03/17 Famotidine [Pepcid] 20 mg PO DAILY 07/03/17 Atorvastatin Ca [Lipitor] 80 mg PO HS tablet 07/06/17 Insulin Sliding Scale [Novolog Vial Sliding Scale -] 1 vial SQ ACHS units 07/06 Levothyroxine [Synthroid -] 125 mcg PO DAILY@0700 tablet 07/06/17 Nystatin Powder [Nystop Powder -] 1 applic TP DAILY applic 07/06/17 Polyethylene Glycol 3350 [Miralax 119 gm Btl -] 17 gm PO BID bottle 07/12/17 Simethicone [Mylicon -] 40 mg PO BIDPC tab.chew 07/12/17 Torsemide [Demadex -] 60 mg PO BIDLASIX tablet 07/12/17 Warfarin Na [Coumadin] 3 mg PO DAILY #30 tablet 07/12/17
[2017-07-13] MEDS ORDERED: PT OWN MED DRAWER 7, Y5N ONE (08:55)
[2017-07-13] MEDS: Methylnaltrexone Bromide 12 MG/0.6 ML KIT SQ SCH (09:06)
[2017-07-13] MEDS: RANOLAZINE E.R. 500 MG TABLET (FP) PO SCH (09:07)
[2017-07-13] MEDS: ACETAMINOPHEN 325 MG TABLET (FP) PO PRN (09:07)
[2017-07-13] MEDS: SIMETHICONE 80 MG TAB.CHEW (FP) PO SCH (09:08)
[2017-07-13] MEDS: ASPIRIN 81 MG CHEWABLE TABLETS PO SCH (09:08)
[2017-07-13] MEDS: DULoxetine HCL 30 MG CAPSULE.DR (FP) PO SCH (09:08)
[2017-07-13] MEDS: TAMSULOSIN HCL 0.4 MG CAP.ER.24H (FP) PO SCH (09:09)
[2017-07-13] MEDS: LORATADINE 10 MG TABLET PO SCH (09:09)
[2017-07-13] MEDS: LIPASE/PROTEASE/AMYLASE 6,000 UNIT CAPSULE PO SCH ×3 (09:09→16:41)
[2017-07-13] MEDS: CARVEDILOL 3.125 MG TABLET (FP) PO SCH (09:09)
[2017-07-13] MEDS: PANTOPRAZOLE 20 MG TABLET (FP) PO SCH (09:09)
[2017-07-13] MEDS: NYSTATIN POWDER 100,000 UNITS/GM - 15 GM TOPICAL POWDER TP SCH (09:10)
[2017-07-13] MEDS: POLYETHYLENE GLYCOL 3350 119 GM BTL PO SCH (09:10)
[2017-07-13] MEDS: CEFTRIAXONE 2 GM in DEXTROSE 5%-WATER - 100 ML IVPB SCH (09:10)
[2017-07-13 15:47] VITALS: BP 124/68; PULSE 60; TEMP 98.9
== END 2017-07-14 07:57 | DRG 291 ==
LOC: JER 12:34 → JERBED 14:15 → J4W 17:24
PROVIDERS: ADMIT Family Medicine; ATTEND Family Medicine
PROC: 02HV33Z Insertion of Infusion Device into Superior Vena Cava, Percutaneous Approach (ICD-10-PCS; principal; 2017-07-13)
DX: I11.0 Hypertensive heart disease with heart failure (principal); G92 Toxic encephalopathy; M86.9 Osteomyelitis, unspecified; I50.23 Acute on chronic systolic (congestive) heart failure; I25.10 Atherosclerotic heart disease of native coronary artery without angina pectoris; Z98.61 Coronary angioplasty status; F41.9 Anxiety disorder, unspecified; J44.9 Chronic obstructive pulmonary disease, unspecified; K59.09 Other constipation; E10.65 Type 1 diabetes mellitus with hyperglycemia; E03.9 Hypothyroidism, unspecified; Z79.4 Long term (current) use of insulin; I48.0 Paroxysmal atrial fibrillation; E11.42 Type 2 diabetes mellitus with diabetic polyneuropathy; E78.5 Hyperlipidemia, unspecified; E66.01 Morbid (severe) obesity due to excess calories; Z68.35 Body mass index [BMI] 35.0-35.9, adult
CPT/HCPCS: 36415; 36569; 36600; 70450-TC; 71010-TC; 74020-TC; 77001-TC; 80048; 80053; 82550; 82553; 82803; 83036; 83605; 83735; 83880; 84436; 84443; 84484; 85025; 85610; 85651; 86140; 87040; 90688; 93005; 93010; 97116-GP; 97161-GP; 99283-25; C1751

== ENCOUNTER 2017-09-25 16:27 | Inpatient (IN) | payer OTHER ==
--- NOTE | 2017-09-25 16:51 | PDOC ---
Rapid Medical Evaluation Time Seen by Provider: 09/25/17 16:48 Medical Evaluation: Allergies Allergy/AdvReac Type Severity Reaction Status Date / Time No Known Drug Allergies Allergy Verified 09/25/17 16:49 09/25/17 16:49 I have performed a brief in-person evaluation of this patient. The patient presents with a chief complaint of: Generalized pruritis x 2 days. H /o CAD w/ stents, CHF, afib on coumadin, HTN, HLD, COPD, LE cellulitis Pertinent physical exam findings: Stable w/ patch of erythema to anterior LLE ( present x 5 months per pt) I have ordered the following:labs The patient will proceed to the ED for further evaluation.
[2017-09-25 16:54] VITALS: BMI 34.9
[2017-09-25 17:48] LABS: URINE APPEARANCE CLEAR; URINE BILIRUBIN NEGATIVE (NEGATIVE); URINE BLOOD 1+ (NEGATIVE); URINE COLOR STRAW; URINE GLUCOSE (UA) 3+ (NEGATIVE); URINE KETONE NEGATIVE (NEGATIVE); URINE LEUK ESTERASE NEGATIVE (NEGATIVE); URINE NITRITE NEGATIVE (NEGATIVE); URINE PROTEIN NEGATIVE (NEGATIVE); URINE UROBILINOGEN NEGATIVE mg/dL (0.2-1.0)
[2017-09-25 17:48] LABS: BASO % 0.2 % (0-2.0); EOS % 0.2 % (0-4.5); HEMATOCRIT 39.5 % (35.4-49); LYMPH % 8.5 % (8-40); MCH 28.6 pg (25.7-33.7); MCHC 32.9 g/dl (32.0-35.9); MEAN CELL VOLUME 86.8 fl (80-96); MEAN PLT VOLUME 9.4 fl (7.5-11.1); MONO % 5.8 % (3.8-10.2); NEUT % 85.3 % (42.8-82.8); PLATELET COUNT 233 K/MM3 (134-434); RBC 4.55 M/mm3 (4.00-5.60); RDW 15.1 % (11.9-15.9); WHITE BLOOD COUNT 9.2 K/mm3 (4.0-10.0)
[2017-09-25 18:09] LABS: EPI CELLS RARE /HPF (FEW); URINE BACTERIA RARE /hpf (NONE SEEN); URINE MUCUS RARE
[2017-09-25 18:14] LABS: ALBUMIN 3.3 g/dl (3.4-5.0); ANION GAP 10 (8-16); BLOOD UREA NITROGEN 39 mg/dL (7-18); CALCIUM 8.8 mg/dL (8.5-10.1); CHLORIDE 94 mmol/L (98-107); CO2 28 mmol/L (21-32); LIPASE 56 U/L (73-393); POTASSIUM 4.2 mmol/L (3.5-5.1); SODIUM 132 mmol/L (136-145)
[2017-09-25] MEDS ORDERED: CLINDAMYCIN 600MG PREMIX IVPB 600 MG/50 ML BAG IVPB ONE ×2 (18:16→19:31)
[2017-09-25 18:19] LABS: ALK PHOS 169 U/L (45-117); BILIRUBIN,TOTAL 0.3 mg/dL (0.2-1.0); CREATININE 1.5 mg/dL (0.7-1.3); SGOT/AST 10 U/L (15-37); SGPT/ALT 23 U/L (12-78)
[2017-09-25 18:26] LABS: GLUCOSE,RANDOM 450 mg/dL (74-106)
[2017-09-25] MEDS ORDERED: SODIUM CHLORIDE 1,000 ML IV ONE (19:37)
--- NOTE | 2017-09-25 19:48 | PDOC ---
History of Present Illness - General History Source: Patient Exam Limitations: No Limitations - History of Present Illness Initial Comments: 09/25/17 19:48 Patient is an 82 year old male, from [facility], with a significant past medical history of CAD, IDDM, HTN, CHF and COPD, who presents to the ED with complaints of left atkinson infection that began 3 days ago. As per patient's daughter, patient began experiencing left atkinson itchiness sunday afternoon and has intensified with each passing day. She reports patient saw PCP last week and no infection or itchiness was presents during visit. Patient reports experiencing general body itching for 3 days, including groin. Patient's daughter states patient was in the hospital a few months ago for same problem. She reports patient is prescribed x3 doses of amoxicillin per day permanently. Denies chest pain, SOB. Denies nausea, vomiting. Denies fevers, chills. Denies numbness, tingling. Denies contact with any sick individuals, out of state travel. Denies any other symptoms. Allergies: None Social history: No smoking. No alcohol. No illicit drugs. Surgical history: Arthroscopy (Right knee arthroscopy w/ partial medial and lateral meniscectomy 09/01/15), Colectomy PMD: Dr. Rowan <Salvatore Brown - Last Filed: 09/25/17 19:48> <Sheree Hudson - Last Filed: 09/25/17 23:16> - General Chief Complaint: Redness To Affected Area Stated Complaint: WOUND Time Seen by Provider: 09/25/17 16:48 Past History <Salvatore Brown - Last Filed: 09/25/17 19:48> - Past Medical History Anemia: No Asthma: No Cancer: No Cardiac Disorders: Yes (2 cardiac stents) CVA: No COPD: No CHF: No DVT: No Dementia: Yes Diabetes: Yes (IDDM) Dialysis: No GI Disorders: Yes (DIVERTICULITIS, colectomy) Disorders: No HTN: Yes Hypercholesterolemia: Yes Kidney Stones: No Liver Disease: No Psychiatric Problems: No Seizures: No Thyroid Disease: Yes (HYPOTHYROIDISM) Lung CA: No - Surgical History Abdominal Surgery: Yes (FOR DIVERTICULITIS; partial colectomy) Appendectomy: No Cardiac Surgery: Yes (STENT X 2,ppm) Cholecystectomy: No Gastric Stapling: No GI Surgery: Yes Lung Surgery: No Neurologic Surgery: No Orthopedic Surgery: No - Immunization History Td Vaccination: No TDAP Vaccination: (unknown on last date now will receive on 12/18/2015) Immunization Up to Date: Yes (FLU ) - Suicide/Smoking/Psychosocial Hx Smoking Status: No Smoking History: Unknown if ever smoked Have you smoked in the past 12 months: No Number of Cigarettes Smoked Daily: 0 Information on smoking cessation initiated: No Hx Alcohol Use: No Drug/Substance Use Hx: No Substance Use Type: None Hx Substance Use Treatment: No <Sheree Hudson - Last Filed: 09/25/17 23:16> - Past Medical History Allergies/Adverse Reactions: Allergies Allergy/AdvReac Type Severity Reaction Status Date / Time No Known Drug Allergies Allergy Verified 09/25/17 16:49 Home Medications: Ambulatory Orders Alprazolam [Xanax] 0.25 mg PO BID 09/25/17 Amoxicillin - [Amoxicillin 500mg Capsule -] 500 mg PO BID 09/25/17 Atorvastatin Ca [Lipitor] 80 mg PO HS 09/25/17 Carvedilol 3.125 mg PO BID 09/25/17 Cetirizine HCl 10 mg PO DAILY 09/25/17 Docusate Sodium 100 mg PO DAILY 09/25/17 Duloxetine HCl [Cymbalta -] 60 mg PO DAILY 09/25/17 Folic Acid 1 mg PO DAILY 09/25/17 Furosemide [Lasix -] 40 mg PO BID 09/25/17 Gabapentin [Neurontin -] 100 mg PO BID 09/25/17 Insulin Glargine,Hum.rec.anlog [Lantus] 40 unit SQ 09/25/17 Insulin Sliding Scale [Novolog Vial Sliding Scale -] 0 units SQ TIDAC 09/25/17 Levothyroxine [Synthroid -] 175 mcg PO DAILY 09/25/17 Montelukast Sodium [Singulair] 10 mg PO DAILY 09/25/17 Polyethylene Glycol 3350 [Miralax (For Daily Use) -] 17 gm PO DAILY 09/25/17 Potassium Chloride [K-Dur -] 20 meq PO DAILY 09/25/17 Spironolactone 25 mg PO DAILY 09/25/17 Tamsulosin HCl [Flomax] 0.4 mg PO DAILY 09/25/17 Warfarin Sodium [Coumadin] 4 mg PO DAILY 09/25/17 Review of Systems - Review of Systems Able to Perform ROS?: Yes Comments:: 09/25/17 19:48 CONSTITUTIONAL: +General body itching. Absent: fever, chills, diaphoresis, generalized weakness, malaise, loss of appetite HEENT: Absent: rhinorrhea, nasal congestion, throat pain, throat swelling, difficulty swallowing, mouth swelling, ear pain, eye pain, visual Changes CARDIOVASCULAR: Absent: chest pain, syncope, palpitations, irregular heart rate, lightheadedness , peripheral edema RESPIRATORY: Absent: cough, shortness of breath, dyspnea with exertion, orthopnea, wheezing, stridor, hemoptysis GASTROINTESTINAL: Absent: abdominal pain, abdominal distension, nausea, vomiting, diarrhea, constipation, melena, hematochezia GENITOURINARY: Absent: dysuria, frequency, urgency, hesitancy, hematuria, flank pain, genital pain MUSCULOSKELETAL: Absent: myalgia, arthralgia, joint swelling SKIN: Absent: rash, itching, pallor HEMATOLOGIC/IMMUNOLOGIC: +Left lower leg infection. +Left lower leg itchiness. Absent: easy bleeding, easy bruising, lymphadenopathy, ENDOCRINE: Absent: unexplained weight gain, unexplained weight loss, heat intolerance, cold intolerance NEUROLOGIC: Absent: headache, focal weakness or paresthesias, dizziness, unsteady gait, seizure, mental status changes, bladder or bowel incontinence PSYCHIATRIC: Absent: anxiety, depression, suicidal or homicidal ideation, hallucinations. All Other Systems: Reviewed and Negative <Salvatore Brown - Last Filed: 09/25/17 19:48> *Physical Exam - Vital Signs Last Vital Signs Temp Pulse Resp BP Pulse Ox 98.5 F 84 18 113/85 100 09/25/17 16:51 09/25/17 16:51 09/25/17 16:51 09/25/17 16:51 09/25/17 16:51 - Physical Exam Comments: 09/25/17 19:49 GENERAL: Well developed, well nourished. Awake and alert. No acute distress. HEENT: Normocephalic, atraumatic. PERRLA, EOMI. No conjunctival pallor. Sclera are non- icteric. Moist mucous membranes. Oropharynx is clear. NECK: Supple. Full ROM. No JVD. Carotid pulses 2+ and symmetric, without bruits. No thyromegaly. No lymphadenopathy. CARDIOVASCULAR: Regular rate and rhythm. No murmurs, rubs, or gallops. Distal pulses are 2+ and symmetric. PULMONARY: No evidence of respiratory distress. Lungs clear to auscultation bilaterally. No wheezing, rales or rhonchi. ABDOMINAL: +Protruding belly Soft. Non-tender. Non-distended. No rebound or guarding. No organomegaly. Normoactive bowel sounds. PELVIC: +Fungal groin infection. MUSCULOSKELETAL Normal range of motion at all joints. No bony deformities or tenderness. No CVA tenderness. EXTREMITIES: +Plus 1 chronic edema. +Circumscribed erythematous area on left atkinson . +ungus in inguinal skin folds No cyanosis. No clubbing. No edema. No calf tenderness. SKIN: Warm and dry. Normal capillary refill. No rashes. No jaundice. NEUROLOGICAL: Alert, awake, appropriate. Cranial nerves 2-12 intact. No deficits to light touch and temperature in face, upper extremities and lower extremities. No motor deficits in the in face, upper extremities and lower extremities. Normoreflexic in the upper and lower extremities. Normal speech. Toes are down-going bilaterally. PSYCHIATRIC: Cooperative. Good eye contact. Appropriate mood and affect. <Salvatore Brown - Last Filed: 09/25/17 19:48> - Vital Signs Last Vital Signs Temp Pulse Resp BP Pulse Ox 98.5 F 84 18 113/85 100 09/25/17 16:51 09/25/17 16:51 09/25/17 16:51 09/25/17 16:51 09/25/17 16:51 <Sheree Hudson - Last Filed: 09/25/17 23:16> ED Treatment Course - LABORATORY CBC & Chemistry Diagram: 09/25/17 17:30 09/25/17 17:30 - ADDITIONAL ORDERS Additional order review: Laboratory Results 09/25/17 09/25/17 17:36 17:30 Sodium 132 L Potassium 4.2 Chloride 94 L Carbon Dioxide 28 Anion Gap 10 BUN 39 H Creatinine 1.5 H Creat Clearance w eGFR 44.92 Random Glucose 450 H* D Calcium 8.8 Total Bilirubin 0.3 D AST 10 L D ALT 23 D Alkaline Phosphatase 169 H D Total Protein 8.0 Albumin 3.3 L Lipase 56 L Urine Color Straw Urine Appearance Clear Urine pH 5.0 D Ur Specific [place] 1.012 Urine Protein Negative Urine Glucose (UA) 3+ H Urine Ketones Negative Urine Blood 1+ H Urine Nitrite Negative Urine Bilirubin Negative Urine Urobilinogen Negative Urine WBC (Auto) <1 Urine RBC (Auto) 2 Ur Epithelial Cells Rare Urine Bacteria Rare Urine Mucus Rare 09/25/17 17:30 RBC 4.55 D MCV 86.8 MCHC 32.9 RDW 15.1 D MPV 9.4 Neutrophils % 85.3 H D Lymphocytes % 8.5 D Monocytes % 5.8 Eosinophils % 0.2 D Basophils % 0.2 - Medications Given in the ED: ED Medications Discontinued Medications Generic Name Dose Route Start Last Admin Trade Name Freq PRN Reason Stop Dose Admin Clindamycin Phosphate 600 mg in 50 mls @ 100 mls/hr 09/25/17 18:16 09/25/17 19:36 Cleocin 600 Mg Premix Ivpb - IVPB 09/25/17 18:45 100 mls/hr ONCE ONE Administration <Salvatore Brown - Last Filed: 09/25/17 19:48> - LABORATORY CBC & Chemistry Diagram: 09/25/17 17:30 09/25/17 17:30 - ADDITIONAL ORDERS Additional order review: Laboratory Results 09/25/17 09/25/17 17:36 17:30 Sodium 132 L Potassium 4.2 Chloride 94 L Carbon Dioxide 28 Anion Gap 10 BUN 39 H Creatinine 1.5 H Creat Clearance w eGFR 44.92 Random Glucose 450 H* D Calcium 8.8 Total Bilirubin 0.3 D AST 10 L D ALT 23 D Alkaline Phosphatase 169 H D Total Protein 8.0 Albumin 3.3 L Lipase 56 L Urine Color Straw Urine Appearance Clear Urine pH 5.0 D Ur Specific [place] 1.012 Urine Protein Negative Urine Glucose (UA) 3+ H Urine Ketones Negative Urine Blood 1+ H Urine Nitrite Negative Urine Bilirubin Negative Urine Urobilinogen Negative Urine WBC (Auto) <1 Urine RBC (Auto) 2 Ur Epithelial Cells Rare Urine Bacteria Rare Urine Mucus Rare 09/25/17 17:30 RBC 4.55 D MCV 86.8 MCHC 32.9 RDW 15.1 D MPV 9.4 Neutrophils % 85.3 H D Lymphocytes % 8.5 D Monocytes % 5.8 Eosinophils % 0.2 D Basophils % 0.2 - Medications Given in the ED: ED Medications Discontinued Medications Generic Name Dose Route Start Last Admin Trade Name [place] PRN Reason Stop Dose Admin Clindamycin Phosphate 600 mg in 50 mls @ 100 mls/hr 09/25/17 18:16 09/25/17 19:36 Cleocin 600 Mg Premix Ivpb - IVPB 09/25/17 18:45 100 mls/hr ONCE ONE Administration <Sheree Hudson - Last Filed: 09/25/17 23:16> Medical Decision Making - Medical Decision Making 09/25/17 23:08 82-year-old male presented to the emergency department because of erythema on his left atkinson. He has a significant history of a left tibial fracture in June 2016 for left fibular fracture. Initially it was rodded. He was doing well, but about 4 months, he dev chronic pain. He is referred to an orthopedist and found some nonunion at the site. Patient was offered repeat surgery but declined. Later he started to develop with erythema from lesion on his left anterior atkinson. Reviewing his old records. There was orthopedic consult from Dr. 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 It was felt the patient would require is an exchange rodding and bone grafting, but the site was infected at the time and this had to be dealing with first. According to the family they were never able to pursue orthopedic surgery because of his cardiac condition which did not make him a good surgical candidate. Dr. Lynne in May 2017 recommended the patient [facility] in taking care of cases that were difficult and challenging like this. Infectious disease had recommended the pt take antibiotics chronically 09/25/17 23:15 <Sheree Hudson - Last Filed: 09/25/17 23:16> *DC/Admit/Observation/Transfer - Attestations Scribe Attestion: 09/25/17 19:49 Documentation prepared by Salvatore Brown, acting as medical coding specialist for Sheree Hudson MD/DO. <Salvatore Brown - Last Filed: 09/25/17 19:48> - Discharge Dispostion Admit: Yes <Sheree Hudson - Last Filed: 09/25/17 23:16> Diagnosis at time of Disposition: Diabetes mellitus, insulin dependent (IDDM), uncontrolled Qualifiers: Diabetes mellitus complication status: with skin complications Diabetes mellitus complication detail: with other skin complication Qualified Code(s): E10.628 - Type 1 diabetes mellitus with other skin complications Cellulitis of leg Qualifiers: Laterality: left Qualified Code(s): L03.116 - Cellulitis of left lower limb - Referrals Referrals: Rodriguez Rowan MD [Primary Care Provider] - - Patient Instructions - Post Discharge Activity
--- NOTE | 2017-09-26 05:11 | PN ---
Teaching Attending Note Name of Resident: Chas Field ATTENDING PHYSICIAN STATEMENT I saw and evaluated the patient. I reviewed the resident's note and discussed the case with the resident. I agree with the resident's findings and plan as documented. SUBJECTIVE: 82 M from [facility] with pmhx of IDDM, HTN, TIA, L. Tib/fib fx, linda placed, aortic aneurysm (4.2cm), CAD s/p Stents, CHF, COPD who presents with L. atkinson puritits 3 days ago, Saw PMD and has been on Amoxicilin. No fevers or chills. No chest pain, pressure or shortness of breath. OBJECTIVE: Physical: VS: Vital Signs Period Temp Pulse Resp BP Sys/[place] Pulse Ox Last 24 Hr 98.5 F-98.5 F 76-84 18-20 113-118/68-87 95-100 GEN: NAD, resting in bed, AA0X3 HEENT: NCAT, PERRL, throat without erythema or exudates CARD: RRR S1, S2 RESP: CTAB ABD: BSx4, NTD to palpation EXT: L. Atkinson with erythema and edema, surrounding excoriations, warm to palpation. RLE - C/C/E CBCD WBC 9.2 K/mm3 (4.0-10.0) 09/25/17 17:30 RBC 4.55 M/mm3 (4.00-5.60) D 09/25/17 17:30 Hgb 13.0 GM/dL (11.7-16.9) D 09/25/17 17:30 Hct 39.5 % (35.4-49) D 09/25/17 17:30 MCV 86.8 fl (80-96) 09/25/17 17:30 MCHC 32.9 g/dl (32.0-35.9) 09/25/17 17:30 RDW 15.1 % (11.9-15.9) D 09/25/17 17:30 Plt Count 233 K/MM3 (134-434) D 09/25/17 17:30 MPV 9.4 fl (7.5-11.1) 09/25/17 17:30 CMP Sodium 132 mmol/L (136-145) L 09/25/17 17:30 Potassium 4.2 mmol/L (3.5-5.1) 09/25/17 17:30 Chloride 94 mmol/L (98-107) L 09/25/17 17:30 Carbon Dioxide 28 mmol/L (21-32) 09/25/17 17:30 Anion Gap 10 (8-16) 09/25/17 17:30 BUN 39 mg/dL (7-18) H 09/25/17 17:30 Creatinine 1.5 mg/dL (0.7-1.3) H 09/25/17 17:30 Creat Clearance w eGFR 44.92 (>60) 09/25/17 17:30 Random Glucose 450 mg/dL (74-106) H* D 09/25/17 17:30 Calcium 8.8 mg/dL (8.5-10.1) 09/25/17 17:30 Total Bilirubin 0.3 mg/dL (0.2-1.0) D 09/25/17 17:30 AST 10 U/L (15-37) L D 09/25/17 17:30 ALT 23 U/L (12-78) D 09/25/17 17:30 Alkaline Phosphatase 169 U/L (45-117) H D 09/25/17 17:30 Total Protein 8.0 g/dl (6.4-8.2) 09/25/17 17:30 Albumin 3.3 g/dl (3.4-5.0) L 09/25/17 17:30 Home Medications Medication Instructions Recorded Alprazolam [Xanax] 0.25 mg PO BID 09/25/17 Amoxicillin - [Amoxicillin 500mg 500 mg PO BID 09/25/17 Capsule -] Atorvastatin Ca [Lipitor] 80 mg PO HS 09/25/17 Carvedilol 3.125 mg PO BID 09/25/17 Cetirizine HCl 10 mg PO DAILY 09/25/17 Docusate Sodium 100 mg PO DAILY 09/25/17 Duloxetine HCl [Cymbalta -] 60 mg PO DAILY 09/25/17 Folic Acid 1 mg PO DAILY 09/25/17 Furosemide [Lasix -] 40 mg PO BID 09/25/17 Gabapentin [Neurontin -] 100 mg PO BID 09/25/17 Insulin Glargine,Hum.rec.anlog 40 unit SQ HS 09/25/17 [Lantus] Insulin Sliding Scale [Novolog 0 units SQ TIDAC 09/25/17 Vial Sliding Scale -] Levothyroxine [Synthroid -] 175 mcg PO DAILY 09/25/17 Montelukast Sodium [Singulair] 10 mg PO DAILY 09/25/17 Polyethylene Glycol 3350 [Miralax 17 gm PO DAILY 09/25/17 (For Daily Use) -] Potassium Chloride [K-Dur -] 20 meq PO DAILY 09/25/17 Spironolactone 25 mg PO DAILY 09/25/17 Tamsulosin HCl [Flomax] 0.4 mg PO DAILY 09/25/17 Warfarin Sodium [Coumadin] 4 mg PO DAILY 09/25/17 REPEAT FS [id number] ASSESSMENT AND PLAN: 82 M from [facility] with pmhx of IDDM, HTN, TIA, aortic aneurysm (4.2cm), CAD s/ p Stents, CHF, COPD who presents with L. atkinson puritits 3 days ag, being admitted for cellulitis 1.) LLE Cellulitis - Vanco/Ceftriaxone - Prior Blood Cx + for E. Faecalis - Xray leg- Prev. hardware- ortho consult - ID consult - Cx - ESR/CRP 2.) Uncontrolled DM - FS, - RAISS - C/W Lantus - DM Diet 3.) CAD - C/W Home meds 4.) Afib - On Coumadin - Chk. PT/INR - C/W Coumadin if in theraputic range, on hold until INR comes back - C/W Coreg 5.) COPD - Not in Exacerbation - C/W home meds 6.) González?CKD - C/W home meds - Monitor CR 6.) Dvt Ppx - On Coumadin - Check INR Place in Med-Sx
--- NOTE | 2017-09-26 05:27 | HP ---
CHIEF COMPLAINT: Itching all over lower extremity and swelling and redness on left atkinson PCP: HISTORY OF PRESENT ILLNESS: Patient is an 82 year old male, from [facility], with a significant past medical history of CAD, IDDM, HTN, CHF and COPD, who presents to the ED with complaints of left atkinson infection that began 3 days ago. As per patient's daughter, patient began experiencing left atkinson itchiness Sunday afternoon and has intensified with each passing day. She reports patient saw PCP last week and no infection or itchiness was presents during visit. Patient reports experiencing general body itching for 3 days, including groin. Patient's daughter states patient was in the hospital a few months ago for same problem. She reports patient is prescribed x3 doses of amoxicillin per day permanently. Denies chest pain, SOB. Denies nausea, vomiting. Denies fevers, chills. Denies numbness, tingling. Denies contact with any sick individuals, out of state travel. Denies any other symptoms. ER course was notable for: (1)CBC, CMP (2) clindamycin 600 IV bp once (3) IVF NS 1L Bolus Recent Travel:denies PAST MEDICAL HISTORY: As per HPI PAST SURGICAL HISTORY: Arthroscopy (Right knee arthroscopy w/ partial medial and lateral meniscectomy 09/01/15), Colectomy Social History: Smoking:cigars long time ago, Alcohol:denies Drugs: denies Family History: Allergies No Known Drug Allergies Allergy (Verified 09/25/17 16:49) HOME MEDICATIONS: Home Medications Medication Instructions Recorded Alprazolam [Xanax] 0.25 mg PO BID 09/25/17 Amoxicillin - [Amoxicillin 500mg 500 mg PO BID 09/25/17 Capsule -] Atorvastatin Ca [Lipitor] 80 mg PO HS 09/25/17 Carvedilol 3.125 mg PO BID 09/25/17 Cetirizine HCl 10 mg PO DAILY 09/25/17 Docusate Sodium 100 mg PO DAILY 09/25/17 Duloxetine HCl [Cymbalta -] 60 mg PO DAILY 09/25/17 Folic Acid 1 mg PO DAILY 09/25/17 Furosemide [Lasix -] 40 mg PO BID 09/25/17 Gabapentin [Neurontin -] 100 mg PO BID 09/25/17 Insulin Glargine,Hum.rec.anlog 40 unit SQ HS 09/25/17 [Lantus] Insulin Sliding Scale [Novolog 0 units SQ TIDAC 09/25/17 Vial Sliding Scale -] Levothyroxine [Synthroid -] 175 mcg PO DAILY 09/25/17 Montelukast Sodium [Singulair] 10 mg PO DAILY 09/25/17 Polyethylene Glycol 3350 [Miralax 17 gm PO DAILY 09/25/17 (For Daily Use) -] Potassium Chloride [K-Dur -] 20 meq PO DAILY 09/25/17 Spironolactone 25 mg PO DAILY 09/25/17 Tamsulosin HCl [Flomax] 0.4 mg PO DAILY 09/25/17 Warfarin Sodium [Coumadin] 4 mg PO DAILY 09/25/17 REVIEW OF SYSTEMS CONSTITUTIONAL: Absent: fever, chills, diaphoresis, generalized weakness, malaise, loss of appetite, weight change HEENT: Absent: rhinorrhea, nasal congestion, throat pain, throat swelling, difficulty swallowing, mouth swelling, ear pain, eye pain, visual changes CARDIOVASCULAR: Absent: chest pain, syncope, palpitations, irregular heart rate, lightheadedness , peripheral edema right leg RESPIRATORY: Absent: cough, shortness of breath, dyspnea with exertion, orthopnea, wheezing, stridor, hemoptysis GASTROINTESTINAL: Absent: abdominal pain, abdominal distension, nausea, vomiting, diarrhea, constipation, melena, hematochezia GENITOURINARY: Absent: dysuria, frequency, urgency, hesitancy, hematuria, flank pain, genital pain MUSCULOSKELETAL: Absent: myalgia, arthralgia, joint swelling, back pain, neck pain SKIN: Absent: rash, itching, pallor HEMATOLOGIC/IMMUNOLOGIC: Absent: easy bleeding, easy bruising, lymphadenopathy, frequent infections ENDOCRINE: Absent: unexplained weight gain, unexplained weight loss, heat intolerance, cold intolerance NEUROLOGIC: Absent: headache, focal weakness or paresthesias, dizziness, unsteady gait, seizure, mental status changes, bladder or bowel incontinence PSYCHIATRIC: Absent: anxiety, depression, suicidal or homicidal ideation, hallucinations. PHYSICAL EXAMINATION Vital Signs - 24 hr 09/25/17 09/25/17 09/25/17 16:51 19:20 23:18 Temperature 98.5 F Pulse Rate 84 Pulse Rate [ 76 Right] Respiratory 18 20 Rate Blood Pressure 113/85 Blood Pressure 118/87 [Left Arm] O2 Sat by Pulse 100 100 100 Oximetry (%) 09/26/17 09/26/17 03:02 03:52 Temperature 98.5 F Pulse Rate 76 Pulse Rate [ Right] Respiratory 20 Rate Blood Pressure 115/68 Blood Pressure [Left Arm] O2 Sat by Pulse 95 Oximetry (%) GENERAL: Awake, alert, and fully oriented, in no acute distress. HEAD: Normal with no signs of trauma. EYES: sclera anicteric, conjunctiva clear. EARS, NOSE, THROAT: Moist mucous membranes. NECK: Normal range of motion, supple without lymphadenopathy, LUNGS: Breath sounds equal, clear to auscultation bilaterally. No wheezes, and no crackles. No accessory muscle use. HEART: Regular rate and rhythm, normal S1 and S2 without murmur, rub or gallop. ABDOMEN: Obese, soft, nontender, not distended, normoactive bowel sounds, no guarding, no rebound, inguinal erythematous changes. MUSCULOSKELETAL: Normal range of motion at all joints. No bony deformities or tenderness. No CVA tenderness. LOWER EXTREMITIES: 2+ pulses, warm, well-perfused. No calf tenderness.right leg trace peripheral edema. erythematous changes on left atkinson with some scar tissue NEUROLOGICAL: No focal deficit . Normal speech. Normal gait. PSYCHIATRIC: Cooperative. Good eye contact. Appropriate mood and affect. SKIN: Warm, dry, erythematous changes in Inguinal area with white borders, Laboratory Results - last 24 hr 09/25/17 09/25/17 09/25/17 17:30 17:30 17:36 WBC 9.2 RBC 4.55 D Hgb 13.0 D Hct 39.5 D MCV 86.8 MCH 28.6 MCHC 32.9 RDW 15.1 D Plt Count 233 D MPV 9.4 Neutrophils % 85.3 H D Lymphocytes % 8.5 D Monocytes % 5.8 Eosinophils % 0.2 D Basophils % 0.2 Sodium 132 L Potassium 4.2 Chloride 94 L Carbon Dioxide 28 Anion Gap 10 BUN 39 H Creatinine 1.5 H Creat Clearance w eGFR 44.92 Random Glucose 450 H* D Calcium 8.8 Total Bilirubin 0.3 D AST 10 L D ALT 23 D Alkaline Phosphatase 169 H D Total Protein 8.0 Albumin 3.3 L Lipase 56 L Urine Color Straw Urine Appearance Clear Urine pH 5.0 D Ur Specific [place] 1.012 Urine Protein Negative Urine Glucose (UA) 3+ H Urine Ketones Negative Urine Blood 1+ H Urine Nitrite Negative Urine Bilirubin Negative Urine Urobilinogen Negative Ur Leukocyte Esterase Negative Urine WBC (Auto) <1 Urine RBC (Auto) 2 Ur Epithelial Cells Rare Urine Bacteria Rare Urine Mucus Rare CBC, BMP 09/25/17 17:30 09/25/17 17:30 ASSESSMENT/PLAN: Patient is an 82 year old male, from [facility], with a significant past medical history of CAD, IDDM, HTN, CHF, 4.2 cm auortic aneurysm and COPD, who presents to the ED with complaints of left atkinson infection that began 3 days ago with itching and swelling was admitted for cellulites. # Cellulitis * afebrile with no leukocytosis * vancomycin IV, Ceftriaxone IV * Blood cx * Prior Blood Cx + for E. Faecalis * Xray leg- Prev. hardware- ortho consult * ID consult * ESR/CRP # Tinea inguinalis (Cruris) * consider clotrimazole topical * avoid fluconazole PO due to CKD * Loratadin 10 mg po daily for itching #uncontrolled DMII * BGM Q 4 hr * ISS * Lantus 40 units SQ HS * diabetic diet # Hypothyroidism * Continue synthroid 175 mcg Po daily # HTN * hold lasix 40 mg po BID, continue spirnolactone 25 mg po daily #HLD * continue Lipitor 80 mg po daily # COPD, * In no acute exacerbation * continue home meds singulair 10 mg po daily # Hyponatremia * NA 132 on admission * IV fluids NS THERON on CKD * BUN/Cr 39/1.5 * likely 2/2 dehydration vs infection * IV fluids * Avoid nephrotoxic agents * # AFIB * continue Coreg 3.125 Po BID * in no acute onset * repeat EKG * INR #CAD * Continue home meds * continue Coumadin 4 mg Po daily * check INR # Anxiety , * Xanax 0.25 mg PO BID * Cymbalta 60 mg po daily # peripheral neuropathy , * continue neurontin 100 mg PO BID * Cymbalta 60 mg po daily # Constipation , * Miralax 17 gm PO daily as needed * Colace 100 mg po daily # urinary retention , * Continue Flomax 0.4 mg PO daily # FEN * F: NS 1L bolus in ED , continue NS @ 100 CC/hr * E: Monitor Bun/Cr * N:low sodium, low diabetic diet # Proph * SCDS , Hold Coumadin 4 mg Po daily , continue after check INR # Admit * Admit to med surge Visit type - Emergency Visit Emergency Visit: Yes ED Registration Date: 09/25/17 Care time: The patient presented to the Emergency Department on the above date and was hospitalized for further evaluation of their emergent condition. - New Patient This patient is new to me today: Yes Date on this admission: 09/26/17 - Critical Care Critical Care patient: No
[2017-09-26] MEDS ORDERED: LEVOTHYROXINE NA 75 MCG TABLET (FP) ONE (05:59)
[2017-09-26] MEDS ORDERED: INSULIN (NOVOLOG) ASPART 100 UNITS/ML 10ML VIAL ONE ×2 (05:59→21:12)
[2017-09-26] MEDS ORDERED: VANCOMYCIN 1,250 MG in DEXTROSE 5%-WATER - 250 ML IVPB ONE (05:59)
[2017-09-26] MEDS ORDERED: LEVOTHYROXINE NA 100 MCG TABLET (FP) ONE (05:59)
[2017-09-26] MEDS ORDERED: HEPARIN NA (PORCINE) 5,000 UNITS/ML 1ML VIAL SQ SCH (06:00)
[2017-09-26] MEDS: INSULIN SLIDING SCALE (NOVOLOG) 1 VIAL SQ SCH ×4 (06:08→21:27)
[2017-09-26] MEDS: LEVOTHYROXINE 100 MCG, LEVOTHYROXINE 75 MCG PO SCH (06:09)
[2017-09-26 08:14] LABS: HEMOGLOBIN 12.4 GM/dL (11.7-16.9); MCHC 32.6 g/dl (32.0-35.9); MEAN CELL VOLUME 85.9 fl (80-96); MEAN PLT VOLUME 9.2 fl (7.5-11.1); PLATELET COUNT 207 K/MM3 (134-434); RBC 4.42 M/mm3 (4.00-5.60); RDW 15.3 % (11.9-15.9); WHITE BLOOD COUNT 4.9 K/mm3 (4.0-10.0)
[2017-09-26 08:35] LABS: ANION GAP 10 (8-16); BLOOD UREA NITROGEN 37 mg/dL (7-18); CALCIUM 8.7 mg/dL (8.5-10.1); CHLORIDE 98 mmol/L (98-107); CO2 25 mmol/L (21-32); CREATININE 1.2 mg/dL (0.7-1.3); POTASSIUM 3.8 mmol/L (3.5-5.1); SODIUM 133 mmol/L (136-145)
[2017-09-26 08:39] LABS: PROTHROMBIN TIME (PATIENT) 67.9 SEC (9.98-11.88)
--- NOTE | 2017-09-26 08:43 | PN ---
Progress Note, Physician - Current Medication List Current Medications: Active Medications Alprazolam (Xanax -) 0.25 mg PO BID [facility] Atorvastatin Calcium (Lipitor -) 80 mg PO HS [facility] Carvedilol (Coreg -) 3.125 mg PO BID [facility] Docusate Sodium (Colace -) 100 mg PO DAILY [facility] Duloxetine HCl (Cymbalta -) 60 mg PO DAILY [facility] Folic Acid (Folic Acid -) 1 mg PO DAILY [facility] Furosemide (Lasix -) 40 mg PO BID [facility] Gabapentin (Neurontin -) 100 mg PO BID [facility] CEFTRIAXONE 1 G/50 ML PREMIX (Ceftriaxone 1 Gm-D5w Bag) 50 mls @ 100 mls/hr IVPB DAILY [facility] Insulin Aspart (Novolog Vial Sliding Scale -) 1 vial SQ ACHS [facility] PRN Reason: Protocol Last Admin: 09/26/17 06:08 Dose: 8 units Insulin Detemir (Levemir Vial) 40 units SQ HS [facility] Levothyroxine Sodium 100 mcg/ (Levothyroxine Sodium 75 mcg) 175 mcg PO DAILY@ 0700 [facility] Last Admin: 09/26/17 06:09 Dose: 175 mcg Loratadine (Claritin -) 10 mg PO DAILY [facility] Montelukast Sodium (Singulair -) 10 mg PO DAILY [facility] Polyethylene Glycol (Miralax (For Daily Use) -) 17 gm PO DAILY [facility] Spironolactone (Aldactone -) 25 mg PO DAILY [facility] Tamsulosin HCl (Flomax -) 0.4 mg PO DAILY@0830 [facility] - Objective Vital Signs: Vital Signs Temperature 98.0 F 09/26/17 06:30 Pulse Rate 69 09/26/17 06:30 Respiratory Rate 18 09/26/17 06:30 Blood Pressure 116/65 09/26/17 06:30 O2 Sat by Pulse Oximetry (%) 95 09/26/17 03:52 Labs: CBC, BMP 09/26/17 07:00 Problem List - Problems (1) Cellulitis of leg Assessment/Plan: * afebrile with no leukocytosis * vancomycin IV, Ceftriaxone IV * Blood cx * Prior Blood Cx + for E. Faecalis * Xray leg- Prev. hardware- ortho consult * ID consult * ESR/CRP * ON PO AMOX OUT PATIENT Code(s): L03.119 - CELLULITIS OF UNSPECIFIED PART OF LIMB Qualifiers: Laterality: left Qualified Code(s): L03.116 - Cellulitis of left lower limb (2) Tinea cruris Assessment/Plan: LOTRISONE BID Code(s): B35.6 - TINEA CRURIS (3) Diabetes mellitus, insulin dependent (IDDM), uncontrolled Assessment/Plan: BGM INSULIN ENDO CONSULT Code(s): E10.65 - TYPE 1 DIABETES MELLITUS WITH HYPERGLYCEMIA Qualifiers: Diabetes mellitus complication status: with skin complications Diabetes mellitus complication detail: with other skin complication Qualified Code(s): E10.628 - Type 1 diabetes mellitus with other skin complications; E10.65 - Type 1 diabetes mellitus with hyperglycemia; E10.65 - Type 1 diabetes mellitus with hyperglycemia; E10.65 - Type 1 diabetes mellitus with hyperglycemia; E10.65 - Type 1 diabetes mellitus with hyperglycemia (4) Anemia Assessment/Plan: STABLE MONITOR Code(s): D64.9 - ANEMIA, UNSPECIFIED (5) Atrial fibrillation Assessment/Plan: INR, PTT INR 6.01 (0.82-1.09) H* D 09/26/17 07:00 HOLD COUMADIN MONITOR Code(s): I48.91 - UNSPECIFIED ATRIAL FIBRILLATION Qualifiers: Atrial fibrillation type: paroxysmal Qualified Code(s): I48.0 - Paroxysmal atrial fibrillation (6) CAD (coronary artery disease) Assessment/Plan: NO CP SAME MEDS Code(s): I25.10 - ATHSCL HEART DISEASE OF [place] CORONARY ARTERY W/O ANG PCTRS Qualifiers: Coronary Disease-Associated Artery/Lesion type: unspecified vessel or lesion type Associated angina: with stable angina (7) COPD (chronic obstructive pulmonary disease) Assessment/Plan: NEBS Code(s): J44.9 - CHRONIC OBSTRUCTIVE PULMONARY DISEASE, UNSPECIFIED
[2017-09-26 09:07] LABS: INR 6.01 (0.82-1.09)
[2017-09-26] MEDS: FUROSEMIDE 40 MG TABLET (FP) PO SCH ×2 (09:10→21:26)
[2017-09-26] MEDS: LORATADINE 10 MG TABLET PO SCH (09:10)
[2017-09-26] MEDS: FOLIC ACID 1 MG TABLET (FP) PO SCH (09:10)
[2017-09-26] MEDS: GABAPENTIN 100 MG CAPSULE (FP) PO SCH ×2 (09:10→21:26)
[2017-09-26] MEDS: CARVEDILOL 3.125 MG TABLET (FP) PO SCH ×2 (09:10→21:26)
[2017-09-26] MEDS: DULoxetine HCL 30 MG CAPSULE.DR (FP) PO SCH (09:10)
[2017-09-26] MEDS: ALPRAZolam 0.25 MG TABLET PO SCH ×2 (09:10→21:26)
[2017-09-26] MEDS: SPIRONOLACTONE 25 MG TABLET (FP) PO SCH (09:10)
[2017-09-26] MEDS: TAMSULOSIN HCL 0.4 MG CAP.ER.24H (FP) PO SCH (09:10)
[2017-09-26] MEDS: MONTELUKAST NA 10 MG TABLET PO SCH (09:10)
--- NOTE | 2017-09-26 09:10 | EKG ---
Test Reason : Blood Pressure : / mmHG Vent. Rate : 076 BPM Atrial Rate : 076 BPM P-R Int : 162 ms QRS Dur : 186 ms QT Int : 488 ms P-R-T Axes : 000 -76 085 degrees QTc Int : 549 ms Atrial-sensed ventricular-paced rhythm ABNORMAL ECG WHEN COMPARED WITH ECG OF 31-JUL-2017 09:00, ELECTRONIC VENTRICULAR PACEMAKER HAS REPLACED SINUS RHYTHM Confirmed by MD Madhu, Chris ([id number]) on 09/26/2017 9:09:35 AM Referred By: Confirmed By:Chris Leung MD
[2017-09-26] MEDS: DOCUSATE SODIUM 100 MG CAPSULE (FP) PO SCH (09:11)
[2017-09-26] MEDS: POLYETHYLENE GLYCOL 3350 119 GM BTL PO SCH (09:11)
--- NOTE | 2017-09-26 09:43 | PN ---
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
--- NOTE | 2017-09-26 09:58 | PN ---
Progress Note (short form) - Note Progress Note: Ortho Full consult dictated by Dr. Lynne a/p chronic infected non-union tibia ABx as per ID NTD january d/c from ortho pov
[2017-09-26] MEDS ORDERED: LEVOTHYROXINE NA 175 MCG TABLET PO SCH (10:00)
[2017-09-26] MEDS ORDERED: CLINDAMYCIN 300 MG PREMIX IVPB 300 MG/50 ML BAG IVPB SCH (10:00)
[2017-09-26 10:33] LABS: GLUCOSE,RANDOM 310 mg/dL (74-106)
--- NOTE | 2017-09-26 10:43 | CONS ---
DATE OF CONSULTATION: DATE OF DICTATION: 09/26/2017 The patient is an 82-year-old male with a history of chronically infected left tibial orthopedic hardware on chronic suppressive antibiotic therapy with amoxicillin, now readmitted with cellulitis of the left lower extremity. The patient cannot give a reliable history. According to the notes and family member, the patient had developed worsening generalized pruritus over the last several days. He had complained of left lower extremity pruritus which he began scratching. He developed worsening erythema, warmth, and swelling as well as pain of the left pretibial area. He had been seen recently by his primary care physician, and no skin infection was noted. He now presents with an area of erythema, warmth, and swelling in the left pretibial area. Cultures were obtained. He was empirically treated with vancomycin and ceftriaxone. He denies any associated fever or chills. No reports of any purulent wound drainage. The patient has a history of chronically infected left tibial orthopedic hardware. He had sustained a fracture of his left tibia in June of 2016. Subsequent to that, it became infected. He had recurrent episodes of enterococcus bacteremia presumably secondary to chronically infected orthopedic hardware. He was recently admitted in May of 2017 for cellulitis of the left lower extremity. He has been maintained on amoxicillin twice a day as long-term suppressive therapy. PAST MEDICAL HISTORY: Positive for diabetes mellitus, coronary artery disease status post coronary artery stents, congestive heart failure, atrial fibrillation, hypertension, hyperlipidemia, COPD, history of recurrent left lower extremity cellulitis. PAST SURGICAL HISTORY: Status post recent AICD, history of colectomy. ALLERGIES: No known allergies. MEDICATIONS: Xanax, amoxicillin 500 mg p.o. b.i.d., Lipitor, carvedilol, Colace, Cymbalta, folic acid, Lasix, Neurontin, insulin, Synthroid, Singulair, K-Dur, Flomax, Coumadin. SOCIAL HISTORY: Presently living at home, had been living in a nursing facility. No active tobacco or alcohol use. REVIEW OF SYSTEMS: Neurologic: No loss of consciousness, seizure activity, focal weakness. Cardiac: Status post AICD. Respiratory: Positive for COPD. Gastrointestinal: Negative vomiting or diarrhea. Genitourinary: Negative for urinary tract infection. LABORATORY DATA: White count 4.9, hematocrit 38.0, platelet count 207. BUN 39, creatinine 1.5, glucose 450. Urinalysis less than 1 white cell. Blood cultures, sedimentation rate, and C-reactive protein pending. PHYSICAL EXAMINATION: General: He is awake and alert. He is in no acute distress. Vital Signs: Temperature 98. Blood pressure 116/65. Pulse 69, regular. Respirations 18 per minute. HEENT: Sclerae are anicteric. Cardiovascular: Heart sounds S1, S2. Lungs: Clear bilaterally. Abdomen: Soft. No tenderness elicited. No mass, rebound, rigidity. Extremities: Lower extremity edema 1+ bilaterally. Examination of the left pretibial area, multiple dry excoriations are present as well as an area of erythema approximately 6 x 5 cm, ovoid in shape, over the left pretibial area. No wound drainage is noted. No crepitus, fluctuance, or lymphangitic streaking. IMPRESSION: 1. Recurrent cellulitis, left pretibial area. 2. Chronically infected left tibial orthopedic hardware, on long-term suppressive therapy with amoxicillin. 3. 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 4. Status post automatic implantable cardioverter-defibrillator. 5. Diabetes mellitus. PLAN: Await blood cultures, sedimentation rate, C-reactive protein. Empiric antibiotic coverage with vancomycin and ceftriaxone. Local wound care, elevation. Hold chronic suppressive amoxicillin while on IV antibiotics. Thank you for the kind referral. MADI WHITTAKER M.D. [id number]
--- NOTE | 2017-09-26 11:52 | CONS ---
DATE OF CONSULTATION: 09/26/2017 Patient is an 82-year-old male well-known to me. I did a tibial linda on him over a year ago. He was diagnosed having a nonunion and was initially sent to [facility], where they did not want to do surgery on him due to numerous medical conditions. He had come back later with draining around the fracture site and had been placed on chronic suppressive antibiotics, which he still had been on to this point. Patient was admitted through the ER with just redness over the nonunion site. The patient is not complaining of any pain. He actually says that he is walking with no pain and has no new complaints. PHYSICAL EXAMINATION: Extremities: On physical exam, he has good range of motion of his knee, ankle and toes. He has just slight erythema anteriorly over the fracture site, but no drainage and no fluctuance at this time and the calf is soft, nontender. X-rays, which were taken recently, show that the fracture has in fact healed. The last x-ray on May did not show that the fracture was healing, but at this period of time, the fracture looks like it is consolidated much more and appears to be healing. There is a small protuberance of bone anteriorly, which may be the source of irritation anteriorly. His labs at this period of time are within normal limits with a white count of 4.9. 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 No evidence of any problems or worsening of his condition at this time. I do not believe the patient needs to be admitted to the hospital, can go home. Weight-bearing as tolerated and continue his chronic suppressive antibiotics. TIFFANY MARTINEZ M.D. [id number]
[2017-09-26] MEDS: CEFTRIAXONE 1 G/50 ML PREMIX 50 ML IVPB SCH (11:55)
[2017-09-26] MEDS ORDERED: PHYTONADIONE 5 MG TABLET PO ONE (12:01)
[2017-09-26] MEDS: CLOTRIMAZOLE/BETAMET DIPROP 15 GM TUBE TP SCH ×2 (12:10→21:32)
[2017-09-26] MEDS ORDERED: INSULIN DETEMIR 100 UNITS/ML MDV SQ ONE (21:11)
[2017-09-26] MEDS: ATORVASTATIN CA 80 MG TABLET (FP) PO SCH (21:26)
[2017-09-26] MEDS ORDERED: INSULIN DETEMIR 100 UNITS/ML MDV SQ SCH ×2 (22:00)
[2017-09-27] MEDS ORDERED: LEVOTHYROXINE NA 100 MCG TABLET (FP) ONE (06:06)
[2017-09-27] MEDS ORDERED: LEVOTHYROXINE NA 75 MCG TABLET (FP) ONE (06:06)
[2017-09-27] MEDS: INSULIN SLIDING SCALE (NOVOLOG) 1 VIAL SQ SCH ×4 (06:17→21:45)
[2017-09-27] MEDS: LEVOTHYROXINE 100 MCG, LEVOTHYROXINE 75 MCG PO SCH (06:17)
[2017-09-27 08:57] LABS: BASO % 0.8 % (0-2.0); EOS % 3.9 % (0-4.5); HEMATOCRIT 37.2 % (35.4-49); HEMOGLOBIN 12.1 GM/dL (11.7-16.9); LYMPH % 12.7 % (8-40); MCH 27.9 pg (25.7-33.7); MCHC 32.5 g/dl (32.0-35.9); MEAN CELL VOLUME 85.8 fl (80-96); MEAN PLT VOLUME 8.9 fl (7.5-11.1); MONO % 8.3 % (3.8-10.2); NEUT % 74.3 % (42.8-82.8); PLATELET COUNT 212 K/MM3 (134-434); RBC 4.34 M/mm3 (4.00-5.60); RDW 15.5 % (11.9-15.9); WHITE BLOOD COUNT 7.6 K/mm3 (4.0-10.0)
[2017-09-27] MEDS: CEFTRIAXONE 1 G/50 ML PREMIX 50 ML IVPB SCH (09:04)
[2017-09-27] MEDS: FOLIC ACID 1 MG TABLET (FP) PO SCH (09:04)
[2017-09-27] MEDS: LORATADINE 10 MG TABLET PO SCH (09:04)
[2017-09-27] MEDS: CARVEDILOL 3.125 MG TABLET (FP) PO SCH ×2 (09:04→21:44)
[2017-09-27] MEDS: ALPRAZolam 0.25 MG TABLET PO SCH ×2 (09:04→21:44)
[2017-09-27] MEDS: SPIRONOLACTONE 25 MG TABLET (FP) PO SCH (09:04)
[2017-09-27] MEDS: MONTELUKAST NA 10 MG TABLET PO SCH (09:04)
[2017-09-27] MEDS: FUROSEMIDE 40 MG TABLET (FP) PO SCH ×2 (09:04→21:44)
[2017-09-27] MEDS: DOCUSATE SODIUM 100 MG CAPSULE (FP) PO SCH (09:05)
[2017-09-27] MEDS: POLYETHYLENE GLYCOL 3350 119 GM BTL PO SCH (09:05)
[2017-09-27] MEDS: GABAPENTIN 100 MG CAPSULE (FP) PO SCH ×2 (09:05→21:44)
[2017-09-27] MEDS: TAMSULOSIN HCL 0.4 MG CAP.ER.24H (FP) PO SCH (09:05)
[2017-09-27] MEDS: DULoxetine HCL 30 MG CAPSULE.DR (FP) PO SCH (09:05)
[2017-09-27] MEDS: CLOTRIMAZOLE/BETAMET DIPROP 15 GM TUBE TP SCH ×2 (09:06→21:50)
[2017-09-27 09:21] LABS: ALBUMIN 3.1 g/dl (3.4-5.0); ANION GAP 12 (8-16); BILIRUBIN,TOTAL 0.5 mg/dL (0.2-1.0); BLOOD UREA NITROGEN 31 mg/dL (7-18); CALCIUM 8.9 mg/dL (8.5-10.1); CHLORIDE 99 mmol/L (98-107); CO2 25 mmol/L (21-32); CREATININE 1.1 mg/dL (0.7-1.3); GLUCOSE,RANDOM 268 mg/dL (74-106); POTASSIUM 3.9 mmol/L (3.5-5.1); SGOT/AST 10 U/L (15-37); SGPT/ALT 20 U/L (12-78); SODIUM 136 mmol/L (136-145); TOT PROT 7.1 g/dl (6.4-8.2)
[2017-09-27 09:22] LABS: ALK PHOS 113 U/L (45-117); INR 1.74 (0.82-1.09); PROTHROMBIN TIME (PATIENT) 19.7 SEC (9.98-11.88)
[2017-09-27] MEDS ORDERED: VANCOMYCIN 1,000 MG in DEXTROSE 5%-WATER - 250 ML IVPB SCH (10:00)
--- NOTE | 2017-09-27 10:02 | PN ---
Progress Note, Physician History of Present Illness: Awake, alert OOB in chair No c/o leg pain No fever/ chills BC no growth - Current Medication List Current Medications: Active Medications Alprazolam (Xanax -) 0.25 mg PO BID [facility] Last Admin: 09/27/17 09:04 Dose: 0.25 mg Atorvastatin Calcium (Lipitor -) 80 mg PO HS [facility] Last Admin: 09/26/17 21:26 Dose: 80 mg Carvedilol (Coreg -) 3.125 mg PO BID [facility] Last Admin: 09/27/17 09:04 Dose: 3.125 mg Clotrimazole (Lotrisone Cream (Small Tube)) 1 applic TP BID [facility] Last Admin: 09/27/17 09:06 Dose: 1 applic Docusate Sodium (Colace -) 100 mg PO DAILY [facility] Last Admin: 09/27/17 09:05 Dose: 100 mg Duloxetine HCl (Cymbalta -) 60 mg PO DAILY [facility] Last Admin: 09/27/17 09:05 Dose: 60 mg Folic Acid (Folic Acid -) 1 mg PO DAILY [facility] Last Admin: 09/27/17 09:04 Dose: 1 mg Furosemide (Lasix -) 40 mg PO BID [facility] Last Admin: 09/27/17 09:04 Dose: 40 mg Gabapentin (Neurontin -) 100 mg PO BID [facility] Last Admin: 09/27/17 09:05 Dose: 100 mg CEFTRIAXONE 1 G/50 ML PREMIX (Ceftriaxone 1 Gm-D5w Bag) 50 mls @ 100 mls/hr IVPB DAILY [facility] Last Admin: 09/27/17 09:04 Dose: 100 mls/hr Vancomycin HCl 1,000 mg/ (Dextrose) 250 mls @ 166.667 mls/hr IVPB Q24H [facility] Insulin Aspart (Novolog Vial Sliding Scale -) 1 vial SQ ACHS [facility] PRN Reason: Protocol Last Admin: 09/27/17 06:17 Dose: 6 units Insulin Detemir (Levemir Vial) 42 units SQ HS [facility] Last Admin: 09/26/17 21:27 Dose: 42 units Levothyroxine Sodium 100 mcg/ (Levothyroxine Sodium 75 mcg) 175 mcg PO DAILY@ 0700 [facility] Last Admin: 09/27/17 06:17 Dose: 175 mcg Loratadine (Claritin -) 10 mg PO DAILY [facility] Last Admin: 09/27/17 09:04 Dose: 10 mg Montelukast Sodium (Singulair -) 10 mg PO DAILY [facility] Last Admin: 09/27/17 09:04 Dose: 10 mg Polyethylene Glycol (Miralax (For Daily Use) -) 17 gm PO DAILY [facility] Last Admin: 09/27/17 09:05 Dose: Not Given Spironolactone (Aldactone -) 25 mg PO DAILY [facility] Last Admin: 09/27/17 09:04 Dose: 25 mg Tamsulosin HCl (Flomax -) 0.4 mg PO DAILY@0830 [facility] Last Admin: 09/27/17 09:05 Dose: 0.4 mg - Objective Vital Signs: Vital Signs Temperature 97.8 F 09/27/17 06:40 Pulse Rate 82 09/27/17 06:40 Respiratory Rate 20 09/27/17 06:40 Blood Pressure 123/87 09/27/17 06:40 O2 Sat by Pulse Oximetry (%) 95 09/26/17 03:52 Constitutional: Yes: No Distress Eyes: Yes: Conjunctiva Clear Cardiovascular: Yes: Regular Rate and Rhythm, S1, S2 Respiratory: Yes: CTA Bilaterally Gastrointestinal: Yes: Normal Bowel Sounds, Soft. 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
--- NOTE | 2017-09-27 11:32 | PN ---
Progress Note, Physician Chief Complaint: Pruritis Chronically infected orthopedic hardware History of Present Illness: NAD, sitting in bed LLE mid tibial pruritic rash with eschar formation applying clotrimazole/betamethasone- is relieving his symptoms seen by ID on IV abx for another 24 hours on prison amoxicillin seen by Ortho -no intervention recommended at this time - Current Medication List Current Medications: Active Medications Alprazolam (Xanax -) 0.25 mg PO BID [facility] Last Admin: 09/27/17 09:04 Dose: 0.25 mg Atorvastatin Calcium (Lipitor -) 80 mg PO HS [facility] Last Admin: 09/26/17 21:26 Dose: 80 mg Carvedilol (Coreg -) 3.125 mg PO BID [facility] Last Admin: 09/27/17 09:04 Dose: 3.125 mg Clotrimazole (Lotrisone Cream (Small Tube)) 1 applic TP BID [facility] Last Admin: 09/27/17 09:06 Dose: 1 applic Docusate Sodium (Colace -) 100 mg PO DAILY [facility] Last Admin: 09/27/17 09:05 Dose: 100 mg Duloxetine HCl (Cymbalta -) 60 mg PO DAILY [facility] Last Admin: 09/27/17 09:05 Dose: 60 mg Folic Acid (Folic Acid -) 1 mg PO DAILY [facility] Last Admin: 09/27/17 09:04 Dose: 1 mg Furosemide (Lasix -) 40 mg PO BID [facility] Last Admin: 09/27/17 09:04 Dose: 40 mg Gabapentin (Neurontin -) 100 mg PO BID [facility] Last Admin: 09/27/17 09:05 Dose: 100 mg CEFTRIAXONE 1 G/50 ML PREMIX (Ceftriaxone 1 Gm-D5w Bag) 50 mls @ 100 mls/hr IVPB DAILY [facility] Last Admin: 09/27/17 09:04 Dose: 100 mls/hr Vancomycin HCl 1,000 mg/ (Dextrose) 250 mls @ 166.667 mls/hr IVPB Q24H [facility] Last Admin: 09/27/17 11:13 Dose: 166.667 mls/hr Insulin Aspart (Novolog Vial Sliding Scale -) 1 vial SQ ACHS [facility] PRN Reason: Protocol Last Admin: 09/27/17 11:07 Dose: 8 units Insulin Detemir (Levemir Vial) 42 units SQ [facility] Last Admin: 09/26/17 21:27 Dose: 42 units Levothyroxine Sodium 100 mcg/ (Levothyroxine Sodium 75 mcg) 175 mcg PO DAILY@ 0700 [facility] Last Admin: 09/27/17 06:17 Dose: 175 mcg Loratadine (Claritin -) 10 mg PO DAILY [facility] Last Admin: 09/27/17 09:04 Dose: 10 mg Montelukast Sodium (Singulair -) 10 mg PO DAILY [facility] Last Admin: 09/27/17 09:04 Dose: 10 mg Polyethylene Glycol (Miralax (For Daily Use) -) 17 gm PO DAILY [facility] Last Admin: 09/27/17 09:05 Dose: Not Given Spironolactone (Aldactone -) 25 mg PO DAILY [facility] Last Admin: 09/27/17 09:04 Dose: 25 mg Tamsulosin HCl (Flomax -) 0.4 mg PO DAILY@0830 [facility] Last Admin: 09/27/17 09:05 Dose: 0.4 mg - Objective Vital Signs: Vital Signs Temperature 97.8 F 09/27/17 06:40 Pulse Rate 82 09/27/17 06:40 Respiratory Rate 20 09/27/17 06:40 Blood Pressure 123/87 09/27/17 06:40 O2 Sat by Pulse Oximetry (%) 95 09/26/17 03:52 Constitutional: Yes: Well Nourished, No Distress, Calm Cardiovascular: Yes: Regular Rate and Rhythm Respiratory: Yes: Regular Gastrointestinal: Yes: WNL, Abdomen, Obese Musculoskeletal: Yes: WNL Extremities: Yes: Erythema (LLE) Edema: No Peripheral Pulses WNL: Yes Integumentary: Yes: Rash (LLE) Neurological: Yes: Alert, Oriented Psychiatric: Yes: Alert, Oriented Labs: CBC, BMP 09/27/17 08:30 09/27/17 08:30 INR, PTT INR 1.74 (0.82-1.09) H D 09/27/17 08:30 Problem List - Problems (1) Cellulitis of leg Assessment/Plan: -seen by ID and ortho -although ortho recommended no admission, was placed on IV abx by ID Code(s): L03.119 - CELLULITIS OF UNSPECIFIED PART OF LIMB Qualifiers: Laterality: left Qualified Code(s): L03.116 - Cellulitis of left lower limb (2) Diabetes mellitus, insulin dependent (IDDM), uncontrolled Assessment/Plan: -last A1C 9.4 in 06/2017 -repeat A1C -Levemir increased for better glycemic control -Novolog sliding scale -endocrinology consult Code(s): E10.65 - TYPE 1 DIABETES MELLITUS WITH HYPERGLYCEMIA Qualifiers: Diabetes mellitus complication status: with skin complications Diabetes mellitus complication detail: with other skin complication Qualified Code(s): E10.628 - Type 1 diabetes mellitus with other skin complications; E10.65 - Type 1 diabetes mellitus with hyperglycemia; E10.65 - Type 1 diabetes mellitus with hyperglycemia; E10.65 - Type 1 diabetes mellitus with hyperglycemia; E10.65 - Type 1 diabetes mellitus with hyperglycemia (3) Infected hardware in left leg Assessment/Plan: -seen by ortho -tibial fracture healed -chronic suppressive amoxicillin Code(s): T84.7XXA - INFECT/INFLM REACT DUE TO OTH INT ORTH PROSTH DEV/GRFT, INIT (4) Non-union of fracture Assessment/Plan: healing well Code(s): KAN4077 - (5) Atrial fibrillation Assessment/Plan: -on Coreg -INR yesterday was 6.0, given vit K 5 mg x 1 -INR today 1.72 -restart warfarin at 2.5 mg po daily and adjust to INR goal of 2.0-3.0 Code(s): I48.91 - UNSPECIFIED ATRIAL FIBRILLATION Qualifiers: Atrial fibrillation type: paroxysmal Qualified Code(s): I48.0 - Paroxysmal atrial fibrillation Assessment/Plan see problem list -Physical therapy -on AC -GI prophylaxis -DC tomorrow
[2017-09-27] MEDS: PANTOPRAZOLE 20 MG TABLET (FP) PO SCH (14:22)
[2017-09-27] MEDS ORDERED: WARFARIN NA 2.5 MG TABLET (FP) PO SCH (18:00)
[2017-09-27] MEDS ORDERED: PT OWN MED DRAWER 7, Y5N ONE (21:39)
[2017-09-27] MEDS ORDERED: INSULIN (NOVOLOG) ASPART 100 UNITS/ML 10ML VIAL ONE (21:40)
[2017-09-27] MEDS: ATORVASTATIN CA 80 MG TABLET (FP) PO SCH (21:44)
[2017-09-27] MEDS ORDERED: INSULIN DETEMIR 100 UNITS/ML MDV SQ SCH (22:00)
[2017-09-28] MEDS ORDERED: LEVOTHYROXINE NA 100 MCG TABLET (FP) ONE (06:02)
[2017-09-28] MEDS ORDERED: LEVOTHYROXINE NA 75 MCG TABLET (FP) ONE (06:02)
[2017-09-28] MEDS: LEVOTHYROXINE 100 MCG, LEVOTHYROXINE 75 MCG PO SCH (06:15)
[2017-09-28] MEDS: INSULIN SLIDING SCALE (NOVOLOG) 1 VIAL SQ SCH ×2 (06:16→11:22)
[2017-09-28 08:35] VITALS: PULSE 75
[2017-09-28 08:54] LABS: BASO % 0.7 % (0-2.0); EOS % 2.7 % (0-4.5); HEMATOCRIT 37.4 % (35.4-49); HEMOGLOBIN 12.3 GM/dL (11.7-16.9); LYMPH % 12.9 % (8-40); MCH 28.2 pg (25.7-33.7); MCHC 32.8 g/dl (32.0-35.9); MEAN CELL VOLUME 85.8 fl (80-96); MEAN PLT VOLUME 9.2 fl (7.5-11.1); NEUT % 73.7 % (42.8-82.8); PLATELET COUNT 214 K/MM3 (134-434); RBC 4.35 M/mm3 (4.00-5.60); RDW 15.2 % (11.9-15.9); WHITE BLOOD COUNT 9.1 K/mm3 (4.0-10.0)
[2017-09-28 09:02] LABS: INR 1.19 (0.82-1.09); PROTHROMBIN TIME (PATIENT) 13.5 SEC (9.98-11.88)
[2017-09-28 09:14] LABS: CHLORIDE 100 mmol/L (98-107); POTASSIUM 4.2 mmol/L (3.5-5.1); SODIUM 133 mmol/L (136-145)
--- NOTE | 2017-09-28 09:15 | DS ---
Physical Examination Vital Signs: Vital Signs Temperature 98.6 F 09/28/17 06:00 Pulse Rate 75 09/28/17 06:00 Respiratory Rate 12 09/28/17 06:00 Blood Pressure 112/64 09/28/17 06:00 O2 Sat by Pulse Oximetry (%) 97 09/27/17 21:00 Findings/Remarks: feels better Cardiovascular: Yes: S1, S2 Respiratory: Yes: Regular, CTA Bilaterally Gastrointestinal: Yes: Normal Bowel Sounds, Soft Edema: Yes (improved) Integumentary: Yes: Venous Stasis Changes Wound/Incision: Yes: Excoriated Labs: CBC, BMP 09/28/17 08:15 Discharge Summary Reason For Visit: DIABETES MELLITUTS,CELLULITIS OF LOWER EXTREMITY Current Active Problems Cellulitis of leg (Acute) Diabetes mellitus, insulin dependent (IDDM), uncontrolled (Acute) Tinea cruris (Acute) Hospital Course: - Problems (1) Cellulitis of leg Assessment/Plan: -seen by ID and ortho -although ortho recommended no admission, was placed on IV abx by ID--NOW CHANGE TO SUPRRESIVE RX Code(s): L03.119 - CELLULITIS OF UNSPECIFIED PART OF LIMB Qualifiers: Laterality: left Qualified Code(s): L03.116 - Cellulitis of left lower limb (2) Diabetes mellitus, insulin dependent (IDDM), uncontrolled Assessment/Plan: -last A1C 9.4 in 06/2017 -repeat A1C -Levemir increased for better glycemic control -Novolog sliding scale -endocrinology consult--LEVEMIR TO 44-NOW ON-50 Code(s): E10.65 - TYPE 1 DIABETES MELLITUS WITH HYPERGLYCEMIA Qualifiers: Diabetes mellitus complication status: with skin complications Diabetes mellitus complication detail: with other skin complication Qualified Code(s): E10.628 - Type 1 diabetes mellitus with other skin complications; E10.65 - Type 1 diabetes mellitus with hyperglycemia; E10.65 - Type 1 diabetes mellitus with hyperglycemia; E10.65 - Type 1 diabetes mellitus with hyperglycemia; E10.65 - Type 1 diabetes mellitus with hyperglycemia (3) Infected hardware in left leg Assessment/Plan: -seen by ortho -tibial fracture healed -chronic suppressive amoxicillin Code(s): T84.7XXA - INFECT/INFLM REACT DUE TO OTH INT ORTH PROSTH DEV/GRFT, INIT (4) Non-union of fracture Assessment/Plan: healing well Code(s): FNL3079 - (5) Atrial fibrillation Assessment/Plan: -on Coreg -INR yesterday was 6.0, given vit K 5 mg x 1 -INR today 1.1 WILL ADD ELIQUIS 5 BID FOR 3 DAYS--INR ON SUNDAY -restart warfarin at 2.5 mg po daily and adjust to INR goal of 2.0-3.0 Code(s): I48.91 - UNSPECIFIED ATRIAL FIBRILLATION Qualifiers: Atrial fibrillation type: paroxysmal Qualified Code(s): I48.0 - Paroxysmal atrial fibrillation Condition: Improved - Instructions Referrals: Rodriguez Rowan MD [Primary Care Provider] - 10/01/17 Disposition: VNS/HOME HEALTH CARE - Home Medications Comprehensive Discharge Medication List: Ambulatory Orders Alprazolam [Xanax] 0.25 mg PO BID 09/25/17 Amoxicillin - [Amoxicillin 500mg Capsule -] 500 mg PO BID 09/25/17 Atorvastatin Ca [Lipitor] 80 mg PO HS 09/25/17 Carvedilol 3.125 mg PO BID 09/25/17 Cetirizine HCl 10 mg PO DAILY 09/25/17 Docusate Sodium 100 mg PO DAILY 09/25/17 Duloxetine HCl [Cymbalta -] 60 mg PO DAILY 09/25/17 Folic Acid 1 mg PO DAILY 09/25/17 Furosemide [Lasix -] 40 mg PO BID 09/25/17 Gabapentin [Neurontin -] 100 mg PO BID 09/25/17 Insulin Sliding Scale [Novolog Vial Sliding Scale -] 0 units SQ TIDAC 09/25/17 Levothyroxine [Synthroid -] 175 mcg PO DAILY 09/25/17 Montelukast Sodium [Singulair] 10 mg PO DAILY 09/25/17 Polyethylene Glycol 3350 [Miralax 119 gm Btl -] 17 gm PO DAILY 09/25/17 Potassium Chloride [K-Dur -] 20 meq PO DAILY 09/25/17 Spironolactone 25 mg PO DAILY 09/25/17 Tamsulosin HCl [Flomax -] 0.4 mg PO DAILY 09/25/17 Clotrimazole/Betamet Diprop [Lotrisone -] 1 applic TP BID #60 grams 09/28/17 Insulin (Levemir) [Levemir Vial] 44 units SQ HS ml 09/28/17 Pantoprazole Sodium [Protonix -] 20 mg PO DAILY #30 tablet.ec 09/28/17 Warfarin Na [Coumadin -] 2.5 mg PO DAILY@1800 #30 tablet 09/28/17
[2017-09-28 09:56] LABS: ALBUMIN 3.1 g/dl (3.4-5.0); ALK PHOS 120 U/L (45-117); ANION GAP 8 (8-16); BILIRUBIN,TOTAL 0.6 mg/dL (0.2-1.0); BLOOD UREA NITROGEN 28 mg/dL (7-18); CALCIUM 8.8 mg/dL (8.5-10.1); CO2 25 mmol/L (21-32); CREATININE 1.1 mg/dL (0.7-1.3); GLUCOSE,RANDOM 250 mg/dL (74-106); SGOT/AST 8 U/L (15-37); SGPT/ALT 18 U/L (12-78); TOT PROT 7.4 g/dl (6.4-8.2)
--- NOTE | 2017-09-28 10:05 | PN ---
Progress Note, Physician History of Present Illness: Awake, alert OOB in chair No c/o leg pain Reports continued improvement L LE erythema No fever/ chills BC no growth - Current Medication List Current Medications: Active Medications Alprazolam (Xanax -) 0.25 mg PO BID [facility] Last Admin: 09/27/17 21:44 Dose: 0.25 mg Atorvastatin Calcium (Lipitor -) 80 mg PO HS [facility] Last Admin: 09/27/17 21:44 Dose: 80 mg Carvedilol (Coreg -) 3.125 mg PO BID [facility] Last Admin: 09/27/17 21:44 Dose: 3.125 mg Clotrimazole (Lotrisone Cream (Small Tube)) 1 applic TP BID [facility] Last Admin: 09/27/17 21:50 Dose: 1 applic Docusate Sodium (Colace -) 100 mg PO DAILY [facility] Last Admin: 09/27/17 09:05 Dose: 100 mg Duloxetine HCl (Cymbalta -) 60 mg PO DAILY [facility] Last Admin: 09/27/17 09:05 Dose: 60 mg Folic Acid (Folic Acid -) 1 mg PO DAILY [facility] Last Admin: 09/27/17 09:04 Dose: 1 mg Furosemide (Lasix -) 40 mg PO BID [facility] Last Admin: 09/27/17 21:44 Dose: 40 mg Gabapentin (Neurontin -) 100 mg PO BID [facility] Last Admin: 09/27/17 21:44 Dose: 100 mg CEFTRIAXONE 1 G/50 ML PREMIX (Ceftriaxone 1 Gm-D5w Bag) 50 mls @ 100 mls/hr IVPB DAILY [facility] Last Admin: 09/27/17 09:04 Dose: 100 mls/hr Vancomycin HCl 1,000 mg/ (Dextrose) 250 mls @ 166.667 mls/hr IVPB Q24H [facility] Last Admin: 09/27/17 11:13 Dose: 166.667 mls/hr Insulin Aspart (Novolog Vial Sliding Scale -) 1 vial SQ [facility] PRN Reason: Protocol Last Admin: 09/28/17 06:16 Dose: 8 units Insulin Detemir (Levemir Vial) 50 units SQ [facility] Levothyroxine Sodium 100 mcg/ (Levothyroxine Sodium 75 mcg) 175 mcg PO DAILY@ 0700 [facility] Last Admin: 09/28/17 06:15 Dose: 175 mcg Loratadine (Claritin -) 10 mg PO DAILY [facility] Last Admin: 09/27/17 09:04 Dose: 10 mg Montelukast Sodium (Singulair -) 10 mg PO DAILY [facility] Last Admin: 09/27/17 09:04 Dose: 10 mg Pantoprazole Sodium (Protonix -) 20 mg PO DAILY [facility] Last Admin: 09/27/17 14:22 Dose: 20 mg Polyethylene Glycol (Miralax (For Daily Use) -) 17 gm PO DAILY [facility] Last Admin: 09/27/17 09:05 Dose: Not Given Spironolactone (Aldactone -) 25 mg PO DAILY [facility] Last Admin: 09/27/17 09:04 Dose: 25 mg Tamsulosin HCl (Flomax -) 0.4 mg PO DAILY@0830 [facility] Last Admin: 09/27/17 09:05 Dose: 0.4 mg Warfarin Sodium (Coumadin -) 2.5 mg PO DAILY@1800 [facility] Last Admin: 09/27/17 18:10 Dose: 2.5 mg - Objective Vital Signs: Vital Signs Temperature 98.6 F 09/28/17 06:00 Pulse Rate 75 09/28/17 06:00 Respiratory Rate 12 09/28/17 06:00 Blood Pressure 112/64 09/28/17 06:00 O2 Sat by Pulse Oximetry (%) 97 09/27/17 21:00 Constitutional: Yes: No Distress Cardiovascular: Yes: Regular Rate and Rhythm, S1, S2 Respiratory: Yes: CTA Bilaterally Gastrointestinal: Yes: Normal Bowel Sounds, Soft. No: Tenderness Extremities: Yes: Other (erythema L pretibial area improved. 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
[2017-09-28] MEDS ORDERED: AMOXICILLIN 500 MG CAPSULE (FP) PO SCH (10:15)
--- NOTE | 2017-09-28 10:16 | PN ---
Progress Note (short form) - Note Progress Note: Ortho Pt seen adn examined, feeling mcuh better, no LLE pain + small ulcerations, minimal swelling, decreasing erythema, nontender, full rom knee and ankle nvi a/p chronic infected non-union tibia ABx as per ID NTD january d/c from ortho pov d/w Dr. Lynne
[2017-09-28] MEDS: LORATADINE 10 MG TABLET PO SCH (10:21)
[2017-09-28] MEDS: TAMSULOSIN HCL 0.4 MG CAP.ER.24H (FP) PO SCH (10:21)
[2017-09-28] MEDS: GABAPENTIN 100 MG CAPSULE (FP) PO SCH (10:21)
[2017-09-28] MEDS: POLYETHYLENE GLYCOL 3350 119 GM BTL PO SCH (10:22)
[2017-09-28] MEDS: PANTOPRAZOLE 20 MG TABLET (FP) PO SCH (10:22)
[2017-09-28] MEDS: DULoxetine HCL 30 MG CAPSULE.DR (FP) PO SCH (10:22)
[2017-09-28] MEDS: FOLIC ACID 1 MG TABLET (FP) PO SCH (10:22)
[2017-09-28] MEDS: CARVEDILOL 3.125 MG TABLET (FP) PO SCH (10:22)
[2017-09-28] MEDS: ALPRAZolam 0.25 MG TABLET PO SCH (10:23)
[2017-09-28] MEDS: DOCUSATE SODIUM 100 MG CAPSULE (FP) PO SCH (10:23)
[2017-09-28] MEDS: MONTELUKAST NA 10 MG TABLET PO SCH (10:24)
[2017-09-28] MEDS: SPIRONOLACTONE 25 MG TABLET (FP) PO SCH (10:26)
[2017-09-28] MEDS ORDERED: APIXABAN 5 MG TABLET PO SCH (10:30)
[2017-09-28] MEDS ORDERED: PT OWN MED DRAWER 7, Y5N ONE (11:19)
[2017-09-28] MEDS: FUROSEMIDE 40 MG TABLET (FP) PO SCH (11:25)
[2017-09-28 11:40] VITALS: BP 95/54; TEMP 98
[2017-09-28] MEDS ORDERED: INSULIN DETEMIR 100 UNITS/ML MDV SQ SCH (22:00)
== END 2017-09-28 13:31 | disposition home health service (06) | DRG 638 ==
LOC: JER 16:27 → JERBED 22:20 → J6S 09-26 03:36
PROVIDERS: ADMIT Family Medicine; ATTEND Family Medicine
DX: E10.65 Type 1 diabetes mellitus with hyperglycemia (principal); T81.4XXA Infection following a procedure, initial encounter; L03.116 Cellulitis of left lower limb; I25.110 Atherosclerotic heart disease of native coronary artery with unstable angina pectoris; E87.1 Hypo-osmolality and hyponatremia; N17.9 Acute kidney failure, unspecified; L97.829 Non-pressure chronic ulcer of other part of left lower leg with unspecified severity; Y83.8 Other surgical procedures as the cause of abnormal reaction of the patient, or of later complication, without mention of misadventure at the time of the procedure; E10.628 Type 1 diabetes mellitus with other skin complications; L29.9 Pruritus, unspecified; Z95.5 Presence of coronary angioplasty implant and graft; I50.9 Heart failure, unspecified; I48.91 Unspecified atrial fibrillation; J44.9 Chronic obstructive pulmonary disease, unspecified; E03.9 Hypothyroidism, unspecified; Z86.73 Personal history of transient ischemic attack (TIA), and cerebral infarction without residual deficits; N18.9 Chronic kidney disease, unspecified; Z87.891 Personal history of nicotine dependence; B35.6 Tinea cruris; K59.00 Constipation, unspecified; R33.9 Retention of urine, unspecified; Z79.4 Long term (current) use of insulin; Z95.810 Presence of automatic (implantable) cardiac defibrillator
CPT/HCPCS: 36415; 73590-TC-LT; 80048; 80053; 81003; 81015; 83036; 83690; 84439; 84443; 84481; 85025; 85027; 85610; 85651; 85730; 86140; 87040; 93005; 93010; 97116-GP; 99283-25

== ENCOUNTER 2017-11-09 12:04 | Inpatient (IN) | payer OTHER ==
[2017-11-09 12:25] VITALS: BMI 39.9
--- NOTE | 2017-11-09 12:34 | PDOC ---
Attending Attestation - HPI HPI: 11/09/17 13:19 The patient is a 82 year old male, with a significant past medical history of CAD(s/p stents x2), CHF, dementia, diabetes, diverticulitis (s/p partial colectomy), hypertension, hyperlipidemia, and hypothyroidism, who presents to the emergency department with 2 days of left sided chest pressure and associated shortness of breath for approximately 2 days. Today, patient reports his symptoms worsened. He endorses his shortness of breath is exacerbated with exertion. He reports associated lower extremity edema, but denies any associated diaphoresis or palpitations. He denies any abdominal pain, nausea, or vomiting. He denies any recent fever, chills, cough, headache, or dizziness. He denies any recent travel or sick contacts. Allergies: NKDA Past Surgical History: Cardiac stentsx2, partial colectomy Social History: Former smoker. No ETOH or recreational drug use. - Medical Decision Making 11/09/17 13:20 Documentation prepared by Fabian Ames, acting as medical engineer for Desiree Aguilar MD. <Fabian Ames - Last Filed: 11/09/17 13:19> - Resident Resident Name: Sae Chávez - ED Attending Attestation I have performed the following: I have examined & evaluated the patient, The case was reviewed & discussed with the resident, I agree w/resident's findings & plan, Exceptions are as noted - Physicial Exam PE: GENERAL: Awake, alert, and fully oriented, in no acute distress. +Mild tachypnea. HEAD: No signs of trauma EYES: PERRLA, EOMI, sclera anicteric, conjunctiva clear ENT: Auricles normal inspection, hearing grossly normal, nares patent, oropharynx clear without exudates. Moist mucosa NECK: Normal ROM, supple, no lymphadenopathy, JVD, or masses LUNGS: Good air entry B/L, +crackles at bases B/L. HEART: Regular rate and rhythm, normal S1 and S2, no murmurs, rubs or gallops ABDOMEN: Soft, nontender, normoactive bowel sounds. No guarding, no rebound. No masses EXTREMITIES: Normal range of motion. 2+ pitting edema BLE to level of ankles. No clubbing or cyanosis. No cords, erythema, or tenderness NEUROLOGICAL: Cranial nerves II through XII grossly intact. Normal speech, normal gait SKIN: Warm, Dry, normal turgor, no rashes or lesions noted. - Medical Decision Making Pt appears fluid-overloaded, noted to have tachypnea on arrival in ED, BLE edema. Will diurese in ED and plan for admission. <Desiree Aguilar - Last Filed: 11/09/17 15:48>
--- NOTE | 2017-11-09 12:38 | PDOC ---
History of Present Illness - General Chief Complaint: Shortness of Breath Stated Complaint: SOB Time Seen by Provider: 11/09/17 12:31 - History of Present Illness Initial Comments: 11/09/17 13:01 The patient is an 82 year old male with a history of HTN, HLD, DM, [place] s/p 2 stents, Hypothyroid, CHF who presents for evaluation of SOB and chest pain. The patient reports a 2 day history of SOB and left sided chest pressure worse with exertion. He states that today he was unable to take 2 steps without being symptomatic prompting his presentation to the ED for evaluation. He denies any radiation of the chest pain and notes that he has not had similar symptoms in the past. He also endorses some lower extremity swelling. He denies fevers, chills, cough, nausea, vomiting, abdominal pain, or changes with urination or bowel movements. Past History - Past Medical History Allergies/Adverse Reactions: Allergies Allergy/AdvReac Type Severity Reaction Status Date / Time No Known Drug Allergies Allergy Verified 11/09/17 12:25 Home Medications: Ambulatory Orders Alprazolam [Xanax] 0.25 mg PO BID 09/25/17 Amoxicillin - [Amoxicillin 500mg Capsule -] 500 mg PO BID 09/25/17 Atorvastatin Ca [Lipitor] 80 mg PO HS 09/25/17 Carvedilol 3.125 mg PO BID 09/25/17 Cetirizine HCl 10 mg PO DAILY 09/25/17 Docusate Sodium 100 mg PO DAILY 09/25/17 Duloxetine HCl [Cymbalta -] 60 mg PO DAILY 09/25/17 Folic Acid 1 mg PO DAILY 09/25/17 Furosemide [Lasix -] 40 mg PO BID 09/25/17 Gabapentin [Neurontin -] 100 mg PO BID 09/25/17 Insulin Sliding Scale [Novolog Vial Sliding Scale -] 0 units SQ TIDAC 09/25/17 Levothyroxine [Synthroid -] 175 mcg PO DAILY 09/25/17 Montelukast Sodium [Singulair] 10 mg PO DAILY 09/25/17 Polyethylene Glycol 3350 [Miralax 119 gm Btl -] 17 gm PO DAILY 09/25/17 Potassium Chloride [K-Dur -] 20 meq PO DAILY 09/25/17 Spironolactone 25 mg PO DAILY 09/25/17 Tamsulosin HCl [Flomax -] 0.4 mg PO DAILY 09/25/17 Apixaban [Eliquis -] 5 mg PO BID #6 tablet 09/28/17 Clotrimazole/Betamet Diprop [Lotrisone -] 1 applic TP BID #60 grams 09/28/17 Insulin (Levemir) [Levemir Vial] 50 units SQ HS ml 09/28/17 Pantoprazole Sodium [Protonix -] 20 mg PO DAILY #30 tablet.ec 09/28/17 Warfarin Na [Coumadin -] 2.5 mg PO DAILY@1800 #30 tablet 09/28/17 Anemia: No Asthma: No Cancer: No Cardiac Disorders: Yes (2 cardiac stents) CVA: No COPD: No CHF: No DVT: No Dementia: Yes Diabetes: Yes (IDDM) Dialysis: No GI Disorders: Yes (DIVERTICULITIS, colectomy) Disorders: No HTN: Yes Hypercholesterolemia: Yes Kidney Stones: No Liver Disease: No Psychiatric Problems: No Seizures: No Thyroid Disease: Yes (HYPOTHYROIDISM) Lung CA: No - Surgical History Abdominal Surgery: Yes (FOR DIVERTICULITIS; partial colectomy) Appendectomy: No Cardiac Surgery: Yes (STENT X 2,ppm) Cholecystectomy: No Gastric Stapling: No GI Surgery: Yes Lung Surgery: No Neurologic Surgery: No Orthopedic Surgery: No - Immunization History Td Vaccination: No TDAP Vaccination: (unknown on last date now will receive on 12/18/2015) Immunization Up to Date: Yes (FLU ) - Suicide/Smoking/Psychosocial Hx Smoking Status: No Smoking History: Former smoker Have you smoked in the past 12 months: No Number of Cigarettes Smoked Daily: 0 If you are a former smoker, when did you quit?: 40 years ago Information on smoking cessation initiated: No Hx Alcohol Use: No Drug/Substance Use Hx: No Substance Use Type: None Hx Substance Use Treatment: No Review of Systems - Review of Systems Comments:: 11/09/17 13:04 Constitutional: No fevers, chills, fatigue, malaise HEENT: No Rhinorrhea, nasal congestion, visual changes Cardiovascular: SOB. Dyspnea on exertion. No syncope, palpitations, lightheadedness Respiratory: Chest pain. No Cough, Hemoptysis, Gastrointestinal: No Abdominal pain, Nausea, Vomiting, Constipation, Diarrhea, Melena Genitourinary: No Dysuria, Frequency, Urgency, Hesitancy, Hematuria, Flank pain Musculoskeletal: No Myalgia, arthralgia Skin: No rashes, itching, bruising, pallor Neurologic: No Headache, Dizziness, Numbness, Weakness, or Tingling Psychiatric: No Hallucinations. No SI or HI *Physical Exam - Vital Signs Last Vital Signs Temp Pulse Resp BP Pulse Ox 97.2 F L 71 19 128/53 98 11/09/17 12:23 11/09/17 12:23 11/09/17 12:23 11/09/17 12:23 11/09/17 12:23 - Physical Exam Comments: 11/09/17 13:05 General Appearance: Nourished. No Apparent Distress HEENT: EOMI, SANDI. No Pharyngeal Erythema, Tonsillar Exudate, Tonsillar Erythema Neck: No Cervical Lymphadenopathy Respiratory/Chest: Lungs Clear, Normal Breath Sounds. No Crackles, Rales, Rhonchi, Wheezing Cardiovascular: Regular Rhythm, Regular Rate. No JVD, Murmur, Gallops, Rubs Gastrointestinal/Abdominal: Normal Bowel Sounds, Soft. No Guarding, Rebound, Tenderness Musculoskeletal: No CVA Tenderness Extremity: 2+ pitting edema in the lower extremities. Normal Capillary Refill Integumentary: Normal Color, Dry, Warm Neurologic: Fully Oriented, Alert, Normal Mood/Affect, Normal Response, Heart Score/ECG Review #1 ECG reviewed & interpreted by me at: 13:06 (Atrial-sensed ventricular-paced rhythm.) General ECG Interpretation: Normal Rate, Normal Intervals, No acute ischemic changes Compared to previous ECG there are: No significant change (09/25/17) ED Treatment Course - LABORATORY CBC & Chemistry Diagram: 11/09/17 13:00 11/09/17 13:00 Medical Decision Making - Medical Decision Making 11/09/17 13:08 The patient is an 82 year old male with a history of HTN, HLD, DM, [place] s/p 2 stents, Hypothyroid, CHF who presents for evaluation of SOB and chest pain. Differential includes but is not limited to: ACS, Pneumonia, CHF, Musculoskeletal, infectious, metabolic derangement. Given the patient's SOB and chest pain worse with exertion, we will obtain a cbc, cmp, troponin, bnp to evaluate further for acs or chf exacerbation. We will also obtain a chest plain film and ekg to evaluate further. We will continue to monitor and reassess. 11/09/17 15:29 CBC, cmp, troponin, are unremarkable. BNP is elevated to 5000s. We believe the patient requires observation admission given his significant co- morbidities. We discussed the case with Dr. Rowan who accepted the patient for admission. *DC/Admit/Observation/Transfer Diagnosis at time of Disposition: Shortness of breath CHF (congestive heart failure) Qualifiers: Heart failure type: unspecified Heart failure chronicity: unspecified Qualified Code(s): I50.9 - Heart failure, unspecified CAD (coronary artery disease) Qualifiers: Coronary Disease-Associated Artery/Lesion type: unspecified vessel or lesion type [place] vs. transplanted heart: [place] heart Associated angina: angina presence unspecified Qualified Code(s): I25.10 - Atherosclerotic heart disease of [place] coronary artery without angina pectoris Chest pain Qualifiers: Chest pain type: unspecified Qualified Code(s): R07.9 - Chest pain, unspecified - Discharge Dispostion Condition at time of disposition: Stable Admit: Yes - Referrals - Patient Instructions - Post Discharge Activity
[2017-11-09 13:24] LABS: EOS % 3.4 % (0-4.5); HEMATOCRIT 36.5 % (35.4-49); HEMOGLOBIN 11.6 GM/dL (11.7-16.9); LYMPH % 10.9 % (8-40); MCH 27.8 pg (25.7-33.7); MCHC 31.9 g/dl (32.0-35.9); MEAN CELL VOLUME 87.2 fl (80-96); MEAN PLT VOLUME 10.2 fl (7.5-11.1); MONO % 8.2 % (3.8-10.2); NEUT % 76.5 % (42.8-82.8); PLATELET COUNT 196 K/MM3 (134-434); RBC 4.19 M/mm3 (4.00-5.60); RDW 15.8 % (11.9-15.9); WHITE BLOOD COUNT 8.3 K/mm3 (4.0-10.0)
[2017-11-09 13:50] LABS: ANION GAP 10 (8-16); BILIRUBIN,TOTAL 0.4 mg/dL (0.2-1.0); BLOOD UREA NITROGEN 26 mg/dL (7-18); CALCIUM 8.6 mg/dL (8.5-10.1); CHLORIDE 100 mmol/L (98-107); CO2 28 mmol/L (21-32); CREATININE 1.4 mg/dL (0.7-1.3); GLUCOSE,RANDOM 229 mg/dL (74-106); POTASSIUM 4.4 mmol/L (3.5-5.1); SGOT/AST 24 U/L (15-37); SGPT/ALT 26 U/L (12-78); SODIUM 138 mmol/L (136-145); TOT PROT 7.2 g/dl (6.4-8.2)
[2017-11-09 13:53] LABS: ALK PHOS 140 U/L (45-117); N-TERMINAL BNP 5140.73 pg/ml (5-450)
[2017-11-09] MEDS ORDERED: FUROSEMIDE 40 MG/4 ML INJECTABLE VIAL IVPUSH ONE (15:49)
[2017-11-09] MEDS ORDERED: FUROSEMIDE 40 MG/4 ML INJECTABLE VIAL ONE (16:58)
[2017-11-09] MEDS ORDERED: PT OWN MED DRAWER 7, Y5N ONE (21:09)
[2017-11-09] MEDS: GABAPENTIN 100 MG CAPSULE (FP) PO SCH (21:17)
[2017-11-09] MEDS: INSULIN DETEMIR 100 UNITS/ML MDV SQ SCH (21:17)
[2017-11-09] MEDS: ALPRAZolam 0.25 MG TABLET PO SCH (21:17)
[2017-11-09] MEDS: APIXABAN 5 MG TABLET PO SCH (21:17)
[2017-11-09] MEDS: CARVEDILOL 3.125 MG TABLET (FP) PO SCH (21:17)
[2017-11-09] MEDS: ATORVASTATIN CA 80 MG TABLET (FP) PO SCH (21:18)
[2017-11-09] MEDS: INSULIN SLIDING SCALE (NOVOLOG) 1 VIAL SQ SCH (21:18)
[2017-11-09] MEDS: PANTOPRAZOLE SODIUM 40 MG VIAL IVPUSH SCH (21:18)
[2017-11-09] MEDS: AMOXICILLIN 500 MG CAPSULE (FP) PO SCH (21:21)
[2017-11-09] MEDS: CLOTRIMAZOLE/BETAMET DIPROP 15 GM TUBE TP SCH (21:21)
[2017-11-09] MEDS ORDERED: ACETAMINOPHEN 1000 MG/100 ML VIAL (NON FORMULARY) IVPB ONE (22:00)
[2017-11-10] MEDS ORDERED: LEVOTHYROXINE NA 50 MCG TABLET (FP) ONE (06:18)
[2017-11-10] MEDS ORDERED: LEVOTHYROXINE NA 125 MCG TABLET (FP) ONE (06:18)
[2017-11-10] MEDS: INSULIN SLIDING SCALE (NOVOLOG) 1 VIAL SQ SCH ×4 (06:42→21:12)
[2017-11-10] MEDS: LEVOTHYROXINE 125 MCG, LEVOTHYROXINE 50 MCG PO SCH (06:46)
[2017-11-10] MEDS: INSULIN DETEMIR 100 UNITS/ML MDV SQ SCH ×2 (06:46→21:12)
[2017-11-10] MEDS: FUROSEMIDE 40 MG/4 ML INJECTABLE VIAL IVPUSH SCH ×2 (06:46→13:17)
[2017-11-10] MEDS ORDERED: LEVOTHYROXINE NA 175 MCG TABLET PO SCH (07:00)
[2017-11-10 07:30] LABS: BASO % 1.2 % (0-2.0); EOS % 6.8 % (0-4.5); HEMATOCRIT 33.2 % (35.4-49); HEMOGLOBIN 10.8 GM/dL (11.7-16.9); LYMPH % 19.1 % (8-40); MCHC 32.6 g/dl (32.0-35.9); MEAN PLT VOLUME 9.9 fl (7.5-11.1); NEUT % 61.9 % (42.8-82.8); PLATELET COUNT 178 K/MM3 (134-434); RBC 3.86 M/mm3 (4.00-5.60); RDW 15.8 % (11.9-15.9); WHITE BLOOD COUNT 6.3 K/mm3 (4.0-10.0)
[2017-11-10 07:57] LABS: ALBUMIN 2.9 g/dl (3.4-5.0); ANION GAP 10 (8-16); BILIRUBIN,TOTAL 0.4 mg/dL (0.2-1.0); BLOOD UREA NITROGEN 26 mg/dL (7-18); CALCIUM 7.9 mg/dL (8.5-10.1); CHLORIDE 102 mmol/L (98-107); CHOLESTEROL 97 mg/dL (50-200); CO2 27 mmol/L (21-32); CREATININE 1.3 mg/dL (0.7-1.3); GLUCOSE,RANDOM 111 mg/dL (74-106); LDL CHOLESTEROL (ONLY SJRH) 54 mg/dL (5-100); POTASSIUM 3.5 mmol/L (3.5-5.1); SGOT/AST 14 U/L (15-37); SGPT/ALT 19 U/L (12-78); SODIUM 139 mmol/L (136-145); TOT PROT 6.4 g/dl (6.4-8.2); TRIGLYCERIDES 94 mg/dL (35-160)
[2017-11-10 07:58] LABS: ALK PHOS 120 U/L (45-117); HDL CHOLESTEROL 34 mg/dL (40-60)
[2017-11-10] MEDS ORDERED: DULoxetine HCL 30 MG CAPSULE.DR (FP) PO ONE (08:54)
[2017-11-10] MEDS ORDERED: PT OWN MED DRAWER 7, Y5N ONE ×2 (08:56→20:48)
[2017-11-10] MEDS: LORATADINE 10 MG TABLET PO SCH (09:01)
[2017-11-10] MEDS: SPIRONOLACTONE 25 MG TABLET (FP) PO SCH (09:01)
[2017-11-10] MEDS: TAMSULOSIN HCL 0.4 MG CAP.ER.24H (FP) PO SCH (09:01)
[2017-11-10] MEDS: ALPRAZolam 0.25 MG TABLET PO SCH ×2 (09:02→21:12)
[2017-11-10] MEDS: DOCUSATE SODIUM 100 MG CAPSULE (FP) PO SCH (09:02)
[2017-11-10] MEDS: APIXABAN 5 MG TABLET PO SCH ×2 (09:02→21:12)
[2017-11-10] MEDS: FOLIC ACID 1 MG TABLET (FP) PO SCH (09:02)
[2017-11-10] MEDS: CARVEDILOL 3.125 MG TABLET (FP) PO SCH ×2 (09:02→21:12)
[2017-11-10] MEDS: POTASSIUM CHLORIDE TABS 20 MEQ TABLET.ER (FP) PO SCH (09:02)
[2017-11-10] MEDS: GABAPENTIN 100 MG CAPSULE (FP) PO SCH ×2 (09:02→21:12)
[2017-11-10] MEDS: MONTELUKAST NA 10 MG TABLET PO SCH (09:02)
[2017-11-10] MEDS: CLOTRIMAZOLE/BETAMET DIPROP 15 GM TUBE TP SCH ×3 (09:03→21:12)
[2017-11-10] MEDS: PANTOPRAZOLE SODIUM 40 MG VIAL IVPUSH SCH ×2 (09:03→21:12)
[2017-11-10] MEDS: AMOXICILLIN 500 MG CAPSULE (FP) PO SCH ×2 (09:03→21:12)
[2017-11-10] MEDS: POLYETHYLENE GLYCOL 3350 119 GM BTL PO SCH (09:16)
[2017-11-10] MEDS ORDERED: DULoxetine HCL 60 MG CAPSULE.DR PO SCH (10:00)
--- NOTE | 2017-11-10 11:23 | HP ---
Admitting History and Physical - Admission History of Present Illness: 82 year old male with a history of HTN, HLD, DM, DC s/p 2 stents, Hypothyroid, CHF who presents for evaluation of SOB and chest pain. The patient reports a 2 day history of SOB and left sided chest pressure worse with exertion. He states that today he was unable to take 2 steps without being symptomatic prompting his presentation to the ED for evaluation. He denies any radiation of the chest pain and notes that he has not had similar symptoms in the past. He also endorses some lower extremity swelling. He denies fevers, chills, cough , nausea, vomiting, abdominal pain, or changes with urination or bowel movements. 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 No: Alzheimer's Cardiovascular: Yes: Aneurysm (mild ascending aortic aneurysm (4.2 cm) per 01/[address]), CAD (stents x2 in 2010; thrombectomy & PCI of proximal and mid LAD with Promus Premier stents and PTCA of D1 on 12/18/[address] [facility] for acute/ subacute anteroseptal [place]), HTN, Hyperlipdemia, Other (ischemic cardiomyopathy ( LVEF 34% per 02/16/16 nuclear study)) Gastrointestinal: Yes: Constipation, Diverticulosis Heme/Onc: Yes: Anemia Musculoskeletal: Yes: Other (rib fx's right) Endocrine: Yes: Diabetes Mellitus, Hypothyroidism - Past Surgical History Past Surgical History: Yes: Arthrosocopy (Right knee arthroscopy w/ partial medial and lateral meniscectomy 09/01/15), Colectomy - Smoking History Smoking history: Former smoker Have you smoked in the past 12 months: No Aproximately how many cigarettes per day: 0 If you are a former smoker, when did you quit?: 40 years ago - Alcohol/Substance Use Hx Alcohol Use: No History of Substance Use: reports: None - Social History 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 History of Recent Travel: No Home Medications - Allergies Allergies/Adverse Reactions: Allergies Allergy/AdvReac Type Severity Reaction Status Date / Time No Known Drug Allergies Allergy Verified 11/09/17 12:25 - Home Medications Home Medications: Ambulatory Orders Alprazolam [Xanax] 0.25 mg PO BID 09/25/17 Amoxicillin - [Amoxicillin 500mg Capsule -] 500 mg PO BID 09/25/17 Atorvastatin Ca [Lipitor] 80 mg PO HS 09/25/17 Carvedilol 3.125 mg PO BID 09/25/17 Cetirizine HCl 10 mg PO DAILY 09/25/17 Docusate Sodium 300 mg PO DAILY 09/25/17 Duloxetine HCl [Cymbalta -] 60 mg PO DAILY 09/25/17 Folic Acid 1 mg PO DAILY 09/25/17 Furosemide [Lasix -] 80 mg PO BID 09/25/17 Gabapentin [Neurontin -] 100 mg PO BID 09/25/17 Insulin Sliding Scale [Novolog Vial Sliding Scale -] 0 units SQ TIDAC 09/25/17 Levothyroxine [Synthroid -] 175 mcg PO DAILY 09/25/17 Montelukast Sodium [Singulair] 10 mg PO DAILY 09/25/17 Polyethylene Glycol 3350 [Miralax 119 gm Btl -] 17 gm PO DAILY 09/25/17 Potassium Chloride [K-Dur -] 20 meq PO DAILY 09/25/17 Spironolactone 25 mg PO DAILY 09/25/17 Tamsulosin HCl [Flomax -] 0.4 mg PO DAILY 09/25/17 Apixaban [Eliquis -] 5 mg PO BID #6 tablet 09/28/17 Clotrimazole/Betamet Diprop [Lotrisone -] 1 applic TP BID #60 grams 09/28/17 Insulin (Levemir) [Levemir Vial] 50 units SQ HS ml 09/28/17 Pantoprazole Sodium [Protonix -] 20 mg PO DAILY #30 tablet.ec 09/28/17 Warfarin Na [Coumadin -] 2.5 mg PO DAILY@1800 #30 tablet 09/28/17 Review of Systems - Review of Systems Cardiovascular: reports: Chest Pain, Shortness of Breath Respiratory: reports: SOB, SOB on Exertion Gastrointestinal: reports: Constipation. denies: Abdominal Pain Genitourinary: reports: No Symptoms Neurological: reports: No Symptoms Physical Examination Vital Signs: Vital Signs Temperature 97.8 F 11/10/17 09:20 Pulse Rate 72 11/10/17 09:20 Respiratory Rate 20 11/10/17 09:20 Blood Pressure 129/78 11/10/17 09:20 O2 Sat by Pulse Oximetry (%) 95 11/10/17 09:00 Cardiovascular: Yes: S1, S2 Respiratory: Yes: Regular, CTA Bilaterally Gastrointestinal: Yes: Normal Bowel Sounds, Soft. No: Tenderness Edema: Yes Labs: CBC, BMP 11/10/17 06:00 11/10/17 06:00 Imaging - Results X-ray: Report Reviewed Problem List - Problems (1) Chest pain Assessment/Plan: FOLLOW CE--MILD ELEVATED--MAY BE DUE TO DEMAND--CHF CARDIO CONTINUE WITH CURRENT MEDS Code(s): R07.9 - CHEST PAIN, UNSPECIFIED Qualifiers: Chest pain type: unspecified Qualified Code(s): R07.9 - Chest pain, unspecified (2) CAD (coronary artery disease) Assessment/Plan: ABOVE Code(s): I25.10 - ATHSCL HEART DISEASE OF [place] CORONARY ARTERY W/O ANG PCTRS Qualifiers: Coronary Disease-Associated Artery/Lesion type: unspecified vessel or lesion type [place] vs. transplanted heart: [place] heart Associated angina: angina presence unspecified Qualified Code(s): I25.10 - Atherosclerotic heart disease of [place] coronary artery without angina pectoris (3) CHF (congestive heart failure) Assessment/Plan: -IV LASIX -MONITOR LYTES Code(s): I50.9 - HEART FAILURE, UNSPECIFIED Qualifiers: Heart failure type: unspecified Heart failure chronicity: unspecified Qualified Code(s): I50.9 - Heart failure, unspecified (4) COPD (chronic obstructive pulmonary disease) Assessment/Plan: NEBS Code(s): J44.9 - CHRONIC OBSTRUCTIVE PULMONARY DISEASE, UNSPECIFIED (5) Diabetes mellitus, insulin dependent (IDDM), uncontrolled Assessment/Plan: INSULIN BGM Code(s): E10.65 - TYPE 1 DIABETES MELLITUS WITH HYPERGLYCEMIA Qualifiers:
--- NOTE | 2017-11-10 12:12 | EKG ---
Test Reason : Blood Pressure : / mmHG Vent. Rate : 080 BPM Atrial Rate : 080 BPM P-R Int : 152 ms QRS Dur : 188 ms QT Int : 508 ms P-R-T Axes : 104 -73 089 degrees QTc Int : 585 ms Atrial-sensed ventricular-paced rhythm WITH FREQUENT PREMATURE VENTRICULAR COMPLEXES ABNORMAL ECG WHEN COMPARED WITH ECG OF 09-NOV-2017 12:30, PREMATURE VENTRICULAR COMPLEXES ARE NOW PRESENT VENT. RATE HAS INCREASED BY 4 BPM Confirmed by SHAHZAD VALLES MD ([id number]) on 11/10/2017 12:11:55 PM Referred By: Pasquale VÁZQUEZ Confirmed By:SHAHZAD VALLES MD
--- NOTE | 2017-11-10 12:15 | EKG ---
Test Reason : Blood Pressure : / mmHG Vent. Rate : 076 BPM Atrial Rate : 076 BPM P-R Int : 148 ms QRS Dur : 180 ms QT Int : 492 ms P-R-T Axes : 112 -70 093 degrees QTc Int : 553 ms Atrial-sensed ventricular-paced rhythm ABNORMAL ECG WHEN COMPARED WITH ECG OF 25-SEP-2017 20:05, NO SIGNIFICANT CHANGE WAS FOUND Confirmed by SHAHZAD VALLES MD ([id number]) on 11/10/2017 12:14:29 PM Referred By: Confirmed By:SHAHZAD VALLES MD
--- NOTE | 2017-11-10 12:35 | CON.CARD ---
Consult Consult Specialty:: cardiology Referred by:: Anum Reason for Consultation:: Chest pain and shortness of breath - History of Present Illness Chief Complaint: Chest pain and shortness of breath History of Present Illness: The patient is an 82-year-old obese man, with a history of diabetes, hypertension, hyperlipidemia, paroxysmal atrial fibrillation on Coumadin, coronary artery disease, status post PCI, status post anteroseptal infarction with stenting of the proximal and mid LAD 12/07, hypothyroidism, diverticulosis, systolic heart failure, status post ICD implantation 08/03/17, now presenting with recurrent chest pains and shortness of breath. The patient is in mild respiratory distress. Chest pain-free at the moment. 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 No: Alzheimer's Cardio/Vascular: Yes: AFIB, Aneurysm (mild ascending aortic aneurysm (4.2 cm) per 01/[address]), CAD (stents x2 in 2010; thrombectomy & PCI of proximal and mid LAD with Promus Premier stents and PTCA of D1 on 12/18/15 at [facility] for acute/subacute anteroseptal [place]), CHF, HTN, Hyperlipdemia, Other (ischemic cardiomyopathy (LVEF 34% per 02/16/16 nuclear study)) Gastrointestinal: Yes: Constipation, Diverticulosis Musculoskeletal: Yes: Other (rib fx's right) Endocrine: Yes: Diabetes Mellitus, Hypothyroidism - Past Surgical History Past Surgical History: Yes: Arthrosocopy (Right knee arthroscopy w/ partial medial and lateral meniscectomy 09/01/15), Colectomy - Alcohol/Substance Use Hx Alcohol Use: No History of Substance Use: reports: None - Smoking History Smoking history: Former smoker Have you smoked in the past 12 months: No Aproximately how many cigarettes per day: 0 If you are a former smoker, when did you quit?: 40 years ago - Social History Usual Living Arrangement: Jail (since last d/c) 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 History of Recent Travel: No Home Medications - Allergies Allergies/Adverse Reactions: Allergies Allergy/AdvReac Type Severity Reaction Status Date / Time No Known Drug Allergies Allergy Verified 11/09/17 12:25 - Home Medications Home Medications: Ambulatory Orders Alprazolam [Xanax] 0.25 mg PO BID 09/25/17 Amoxicillin - [Amoxicillin 500mg Capsule -] 500 mg PO BID 09/25/17 Atorvastatin Ca [Lipitor] 80 mg PO HS 09/25/17 Carvedilol 3.125 mg PO BID 09/25/17 Cetirizine HCl 10 mg PO DAILY 09/25/17 Docusate Sodium 300 mg PO DAILY 09/25/17 Duloxetine HCl [Cymbalta -] 60 mg PO DAILY 09/25/17 Folic Acid 1 mg PO DAILY 09/25/17 Furosemide [Lasix -] 80 mg PO BID 09/25/17 Gabapentin [Neurontin -] 100 mg PO BID 09/25/17 Insulin Sliding Scale [Novolog Vial Sliding Scale -] 0 units SQ TIDAC 09/25/17 Levothyroxine [Synthroid -] 175 mcg PO DAILY 09/25/17 Montelukast Sodium [Singulair] 10 mg PO DAILY 09/25/17 Polyethylene Glycol 3350 [Miralax 119 gm Btl -] 17 gm PO DAILY 09/25/17 Potassium Chloride [K-Dur -] 20 meq PO DAILY 09/25/17 Spironolactone 25 mg PO DAILY 09/25/17 Tamsulosin HCl [Flomax -] 0.4 mg PO DAILY 09/25/17 Apixaban [Eliquis -] 5 mg PO BID #6 tablet 09/28/17 Clotrimazole/Betamet Diprop [Lotrisone -] 1 applic TP BID #60 grams 09/28/17 Insulin (Levemir) [Levemir Vial] 50 units SQ HS ml 09/28/17 Pantoprazole Sodium [Protonix -] 20 mg PO DAILY #30 tablet.ec 09/28/17 Warfarin Na [Coumadin -] 2.5 mg PO DAILY@1800 #30 tablet 09/28/17 Review of Systems - Review of Systems Constitutional: reports: No Symptoms Eyes: reports: No Symptoms HENT: reports: No Symptoms Neck: reports: No Symptoms Cardiovascular: reports: Chest Pain, Edema, Shortness of Breath Respiratory: reports: SOB Gastrointestinal: reports: No Symptoms Genitourinary: reports: No Symptoms Breasts: reports: No Symptoms Reported Musculoskeletal: reports: No Symptoms Integumentary: reports: No Symptoms Neurological: reports: No Symptoms Endocrine: reports: No Symptoms Hematology/Lymphatic: reports: No Symptoms Psychiatric: reports: No Symptoms Vital Signs: Vital Signs Temperature 97.8 F 11/10/17 09:20 Pulse Rate 72 11/10/17 09:20 Respiratory Rate 20 11/10/17 09:20 Blood Pressure 129/78 11/10/17 09:20 O2 Sat by Pulse Oximetry (%) 95 11/10/17 09:00 Constitutional: Yes: No Distress, Calm, Obese Eyes: Yes: WNL, Conjunctiva Clear HENT: Yes: WNL, Atraumatic, Normocephalic Neck: Yes: WNL, Supple, Trachea Midline Respiratory: Yes: Rales, SOB Gastrointestinal: Yes: WNL, Normal Bowel Sounds, Soft Renal/: Yes: WNL Cardiovascular: Yes: Regular Rate and Rhythm JVD: No Carotid Bruit: No PMI: Non-Displaced Heart Sounds: Yes: S1, S2 Murmur: Yes: Systolic Murmur, Grade 2 Musculoskeletal: Yes: WNL Edema: Yes Edema: LLE: 1+, RLE: 1+ Peripheral Pulses WNL: No Peripheral Pulses: 1+ Left Carotid, 1+ Right Carotid, 1+ Left Femoral, 1+ Right Femoral, 1+ Left Popliteal, 1+ Right Popliteal, 1+ Left Doralis Pedis, 1+ Right Dorsalis Pedis Integumentary: Yes: WNL Neurological: Yes: WNL, Alert, Oriented ...Motor Strength: WNL Psychiatric: Yes: WNL - Other Data Labs, Other Data: CBC, BMP 11/10/17 06:00 11/10/17 06:00 Troponin, BNP 11/09/17 11/09/17 11/10/17 13:00 18:00 06:00 Troponin I 0.04 D 0.06 H D 0.06 H B-Natriuretic Peptide 5140.73 H Troponin, BNP 11/09/17 11/09/17 11/10/17 13:00 18:00 06:00 Troponin I 0.04 D 0.06 H D 0.06 H B-Natriuretic Peptide 5140.73 H Assessment/Plan 82-year-old man, with multiple medical problems, now readmitted with recurrent chest pains and shortness of breath. Acute on chronic systolic heart failure. There is no evidence of ischemia nor acute coronary syndrome. No further angina. Continue Lasix 40 mg IV twice a day. Increase Coreg to 6.25 mg twice daily. Start lisinopril 5 mg daily. Start Imdur 30 mg daily. Strict fluid and salt restrictions. Please remove all fluids and ice cubes from the bedside. No need for further cardiac workup at this point. I will attempt to maximize his medical regimen.
[2017-11-10] MEDS: ATORVASTATIN CA 80 MG TABLET (FP) PO SCH (21:12)
[2017-11-11] MEDS ORDERED: ACETAMINOPHEN 325 MG TABLET (FP) ONE (00:18)
[2017-11-11] MEDS ORDERED: ACETAMINOPHEN 325 MG TABLET (FP) PO ONE (01:15)
[2017-11-11] MEDS ORDERED: ALBUTEROL SO4 2.5/IPRATROPIUM 0.5 INH SOL 3 ML VIAL.NEB. NEB ONE ×2 (03:46→04:15)
[2017-11-11] MEDS ORDERED: LEVOTHYROXINE NA 125 MCG TABLET (FP) ONE (05:27)
[2017-11-11] MEDS ORDERED: LEVOTHYROXINE NA 50 MCG TABLET (FP) ONE (05:27)
[2017-11-11] MEDS: FUROSEMIDE 40 MG/4 ML INJECTABLE VIAL IVPUSH SCH ×2 (06:27→14:08)
[2017-11-11] MEDS: INSULIN SLIDING SCALE (NOVOLOG) 1 VIAL SQ SCH ×4 (06:27→21:02)
[2017-11-11] MEDS: INSULIN DETEMIR 100 UNITS/ML MDV SQ SCH ×2 (06:27→21:02)
[2017-11-11] MEDS: LEVOTHYROXINE 125 MCG, LEVOTHYROXINE 50 MCG PO SCH (06:27)
[2017-11-11] MEDS: DOCUSATE SODIUM 100 MG CAPSULE (FP) PO SCH (09:01)
[2017-11-11] MEDS: MONTELUKAST NA 10 MG TABLET PO SCH (09:01)
[2017-11-11] MEDS: ALPRAZolam 0.25 MG TABLET PO SCH ×2 (09:01→21:05)
[2017-11-11] MEDS: CARVEDILOL 3.125 MG TABLET (FP) PO SCH ×2 (09:01→21:02)
[2017-11-11] MEDS: TAMSULOSIN HCL 0.4 MG CAP.ER.24H (FP) PO SCH (09:02)
[2017-11-11] MEDS: DULoxetine HCL 30 MG CAPSULE.DR (FP) PO SCH (09:02)
[2017-11-11] MEDS: SPIRONOLACTONE 25 MG TABLET (FP) PO SCH (09:02)
[2017-11-11] MEDS: LORATADINE 10 MG TABLET PO SCH (09:02)
[2017-11-11] MEDS: GABAPENTIN 100 MG CAPSULE (FP) PO SCH ×2 (09:03→21:05)
[2017-11-11] MEDS: FOLIC ACID 1 MG TABLET (FP) PO SCH (09:03)
[2017-11-11] MEDS: POTASSIUM CHLORIDE TABS 20 MEQ TABLET.ER (FP) PO SCH (09:03)
[2017-11-11] MEDS: POLYETHYLENE GLYCOL 3350 119 GM BTL PO SCH ×2 (09:03→21:04)
[2017-11-11] MEDS: APIXABAN 5 MG TABLET PO SCH ×2 (09:03→21:03)
[2017-11-11] MEDS: PANTOPRAZOLE SODIUM 40 MG VIAL IVPUSH SCH ×2 (09:04→21:02)
[2017-11-11] MEDS: CLOTRIMAZOLE/BETAMET DIPROP 15 GM TUBE TP SCH ×2 (09:04→21:03)
[2017-11-11] MEDS: AMOXICILLIN 500 MG CAPSULE (FP) PO SCH ×2 (09:05→21:02)
[2017-11-11] MEDS ORDERED: BISACODYL 5 MG TABLET.DR (FP) PO ONE (11:22)
--- NOTE | 2017-11-11 11:25 | PN ---
Progress Note, Physician - Current Medication List Current Medications: Active Medications Albuterol/Ipratropium (Duoneb -) 1 amp NEB RQID [facility] Alprazolam (Xanax -) 0.25 mg PO BID [facility] Last Admin: 11/11/17 09:01 Dose: 0.25 mg Amoxicillin (Amoxicillin -) 500 mg PO BID [facility] Last Admin: 11/11/17 09:05 Dose: 500 mg Apixaban (Eliquis -) 5 mg PO BID [facility] Last Admin: 11/11/17 09:03 Dose: 5 mg Atorvastatin Calcium (Lipitor -) 80 mg PO HS [facility] Last Admin: 11/10/17 21:12 Dose: 80 mg Bisacodyl (Dulcolax -) 10 mg PO ONCE ONE Stop: 11/11/17 11:23 Carvedilol (Coreg -) 3.125 mg PO BID [facility] Last Admin: 11/11/17 09:01 Dose: 3.125 mg Clotrimazole (Lotrisone Cream (Small Tube)) 1 applic TP BID [facility] Last Admin: 11/11/17 09:04 Dose: 1 applic Docusate Sodium (Colace -) 100 mg PO DAILY [facility] Last Admin: 11/11/17 09:01 Dose: 100 mg Duloxetine HCl (Cymbalta -) 60 mg PO DAILY [facility] Last Admin: 11/11/17 09:02 Dose: 60 mg Folic Acid (Folic Acid -) 1 mg PO DAILY [facility] Last Admin: 11/11/17 09:03 Dose: 1 mg Furosemide (Lasix Injection -) 40 mg IVPUSH BID@0600,1400 [facility] Last Admin: 11/11/17 06:27 Dose: 40 mg Gabapentin (Neurontin -) 100 mg PO BID [facility] Last Admin: 11/11/17 09:03 Dose: 100 mg Insulin Aspart (Novolog Vial Sliding Scale -) 1 vial SQ [facility] PRN Reason: Protocol Last Admin: 11/11/17 06:27 Dose: 2 units Insulin Detemir (Levemir Vial) 25 units SQ BID@0700,2200 [facility] Last Admin: 11/11/17 06:27 Dose: 25 units Levothyroxine Sodium 125 mcg/ (Levothyroxine Sodium 50 mcg) 175 mcg PO DAILY@ 0700 [facility] Last Admin: 11/11/17 06:27 Dose: 175 mcg Loratadine (Claritin -) 10 mg PO DAILY [facility] Last Admin: 11/11/17 09:02 Dose: 10 mg Montelukast Sodium (Singulair -) 10 mg PO DAILY [facility] Last Admin: 11/11/17 09:01 Dose: 10 mg Pantoprazole Sodium (Protonix Iv) 40 mg IVPUSH BID [facility] Last Admin: 11/11/17 09:04 Dose: 40 mg Polyethylene Glycol (Miralax (For Daily Use) -) 17 gm PO BID [facility] Potassium Chloride (K-Dur -) 20 meq PO DAILY [facility] Last Admin: 11/11/17 09:03 Dose: 20 meq Spironolactone (Aldactone -) 25 mg PO DAILY [facility] Last Admin: 11/11/17 09:02 Dose: 25 mg Tamsulosin HCl (Flomax -) 0.4 mg PO 0830 [facility] Last Admin: 11/11/17 09:02 Dose: 0.4 mg - Objective Vital Signs: Vital Signs Temperature 98.2 F 11/11/17 08:39 Pulse Rate 91 H 11/11/17 08:39 Respiratory Rate 20 11/11/17 08:39 Blood Pressure 123/71 11/11/17 08:39 O2 Sat by Pulse Oximetry (%) 95 11/11/17 08:39 Cardiovascular: Yes: Regular Rate and Rhythm Respiratory: Yes: On Nasal O2, Rales Gastrointestinal: Yes: Normal Bowel Sounds, Soft, Abdomen, Obese Labs: CBC, BMP 11/10/17 06:00 11/10/17 06:00 Problem List - Problems (1) Chest pain Assessment/Plan: RESOLVED FOLLOW CE--MILD ELEVATED--MAY BE DUE TO DEMAND--CHF CARDIO NOTED CONTINUE WITH CURRENT MEDS Code(s): R07.9 - CHEST PAIN, UNSPECIFIED Qualifiers: Chest pain type: unspecified Qualified Code(s): R07.9 - Chest pain, unspecified (2) CAD (coronary artery disease) Assessment/Plan: ABOVE Code(s): I25.10 - ATHSCL HEART DISEASE OF [place] CORONARY ARTERY W/O ANG PCTRS Qualifiers: Coronary Disease-Associated Artery/Lesion type: unspecified vessel or lesion type [place] vs. transplanted heart: [place] heart Associated angina: angina presence unspecified Qualified Code(s): I25.10 - Atherosclerotic heart disease of [place] coronary artery without angina pectoris (3) CHF (congestive heart failure) Assessment/Plan: -IV LASIX -MONITOR LYTES Code(s): I50.9 - HEART FAILURE, UNSPECIFIED Qualifiers: Heart failure type: unspecified Heart failure chronicity: unspecified Qualified Code(s): I50.9 - Heart failure, unspecified (4) COPD (chronic obstructive pulmonary disease) Assessment/Plan: NEBS Code(s): J44.9 - CHRONIC OBSTRUCTIVE PULMONARY DISEASE, UNSPECIFIED (5) Diabetes mellitus, insulin dependent (IDDM), uncontrolled Assessment/Plan: INSULIN BGM Code(s): E10.65 - TYPE 1 DIABETES MELLITUS WITH HYPERGLYCEMIA Qualifiers: (6) Constipation Assessment/Plan: -DULCOLOX -INCREASE MIRALAX Code(s): K59.00 - CONSTIPATION, UNSPECIFIED
[2017-11-11] MEDS: ALBUTEROL SO4 2.5/IPRATROPIUM 0.5 INH SOL 3 ML VIAL.NEB. NEB SCH ×3 (12:20→20:45)
[2017-11-11] MEDS ORDERED: PT OWN MED DRAWER 7, Y5N ONE (20:47)
[2017-11-11] MEDS: ACETAMINOPHEN 325 MG TABLET (FP) PO PRN (20:53)
[2017-11-11] MEDS: ATORVASTATIN CA 80 MG TABLET (FP) PO SCH (21:03)
[2017-11-12] MEDS ORDERED: LEVOTHYROXINE NA 50 MCG TABLET (FP) ONE (06:07)
[2017-11-12] MEDS ORDERED: LEVOTHYROXINE NA 125 MCG TABLET (FP) ONE (06:08)
[2017-11-12] MEDS: LEVOTHYROXINE 125 MCG, LEVOTHYROXINE 50 MCG PO SCH (06:11)
[2017-11-12] MEDS: FUROSEMIDE 40 MG/4 ML INJECTABLE VIAL IVPUSH SCH ×2 (06:11→13:40)
[2017-11-12] MEDS: INSULIN DETEMIR 100 UNITS/ML MDV SQ SCH ×2 (06:12→21:32)
[2017-11-12] MEDS: INSULIN SLIDING SCALE (NOVOLOG) 1 VIAL SQ SCH ×4 (06:12→21:32)
[2017-11-12] MEDS: ALBUTEROL SO4 2.5/IPRATROPIUM 0.5 INH SOL 3 ML VIAL.NEB. NEB SCH ×4 (08:00→19:47)
[2017-11-12] MEDS: TAMSULOSIN HCL 0.4 MG CAP.ER.24H (FP) PO SCH (08:18)
[2017-11-12] MEDS ORDERED: PT OWN MED DRAWER 7, Y5N ONE (09:28)
[2017-11-12] MEDS: PANTOPRAZOLE SODIUM 40 MG VIAL IVPUSH SCH ×2 (09:33→21:32)
[2017-11-12] MEDS: DULoxetine HCL 30 MG CAPSULE.DR (FP) PO SCH (09:34)
[2017-11-12] MEDS: DOCUSATE SODIUM 100 MG CAPSULE (FP) PO SCH (09:34)
[2017-11-12] MEDS: MONTELUKAST NA 10 MG TABLET PO SCH (09:35)
[2017-11-12] MEDS: CARVEDILOL 3.125 MG TABLET (FP) PO SCH ×2 (09:35→21:32)
[2017-11-12] MEDS: FOLIC ACID 1 MG TABLET (FP) PO SCH (09:35)
[2017-11-12] MEDS: LORATADINE 10 MG TABLET PO SCH (09:35)
[2017-11-12] MEDS: APIXABAN 5 MG TABLET PO SCH ×2 (09:35→21:31)
[2017-11-12] MEDS: GABAPENTIN 100 MG CAPSULE (FP) PO SCH ×2 (09:35→21:31)
[2017-11-12] MEDS: SPIRONOLACTONE 25 MG TABLET (FP) PO SCH (09:35)
[2017-11-12] MEDS: AMOXICILLIN 500 MG CAPSULE (FP) PO SCH ×2 (09:35→21:31)
[2017-11-12] MEDS: ALPRAZolam 0.25 MG TABLET PO SCH ×2 (09:35→21:31)
[2017-11-12] MEDS: POTASSIUM CHLORIDE TABS 20 MEQ TABLET.ER (FP) PO SCH (09:35)
[2017-11-12] MEDS: POLYETHYLENE GLYCOL 3350 119 GM BTL PO SCH ×3 (09:36→21:25)
--- NOTE | 2017-11-12 10:23 | PN ---
Progress Note, Physician Chief Complaint: Lesws SOB tele neg History of Present Illness: 82-year-old man, with multiple medical problems, now readmitted with recurrent chest pains and shortness of breath. Acute on chronic systolic heart failure. There is no evidence of ischemia nor acute coronary syndrome. No further angina. - Current Medication List Current Medications: Active Medications Acetaminophen (Tylenol -) 650 mg PO Q6H PRN PRN Reason: PAIN LEVEL 1 - 3 Last Admin: 11/11/17 20:53 Dose: 650 mg Albuterol/Ipratropium (Duoneb -) 1 amp NEB RQID [facility] Last Admin: 11/12/17 08:00 Dose: 1 amp Alprazolam (Xanax -) 0.25 mg PO BID [facility] Last Admin: 11/12/17 09:35 Dose: 0.25 mg Amoxicillin (Amoxicillin -) 500 mg PO BID [facility] Last Admin: 11/12/17 09:35 Dose: 500 mg Apixaban (Eliquis -) 5 mg PO BID [facility] Last Admin: 11/12/17 09:35 Dose: 5 mg Atorvastatin Calcium (Lipitor -) 80 mg PO HS [facility] Last Admin: 11/11/17 21:03 Dose: 80 mg Carvedilol (Coreg -) 3.125 mg PO BID [facility] Last Admin: 11/12/17 09:35 Dose: 3.125 mg Clotrimazole (Lotrisone Cream (Small Tube)) 1 applic TP BID [facility] Last Admin: 11/11/17 21:03 Dose: 1 applic Docusate Sodium (Colace -) 100 mg PO DAILY [facility] Last Admin: 11/12/17 09:34 Dose: 100 mg Duloxetine HCl (Cymbalta -) 60 mg PO DAILY [facility] Last Admin: 11/12/17 09:34 Dose: 60 mg Folic Acid (Folic Acid -) 1 mg PO DAILY [facility] Last Admin: 11/12/17 09:35 Dose: 1 mg Furosemide (Lasix Injection -) 40 mg IVPUSH BID@0600,1400 [facility] Last Admin: 11/12/17 06:11 Dose: 40 mg Gabapentin (Neurontin -) 100 mg PO BID [facility] Last Admin: 11/12/17 09:35 Dose: 100 mg Insulin Aspart (Novolog Vial Sliding Scale -) 1 vial SQ ACHS [facility] PRN Reason: Protocol Last Admin: 11/12/17 06:12 Dose: Not Given Insulin Detemir (Levemir Vial) 25 units SQ BID@0700,2200 [facility] Last Admin: 11/12/17 06:12 Dose: 25 units Levothyroxine Sodium 125 mcg/ (Levothyroxine Sodium 50 mcg) 175 mcg PO DAILY@ 0700 [facility] Last Admin: 11/12/17 06:11 Dose: 175 mcg Loratadine (Claritin -) 10 mg PO DAILY [facility] Last Admin: 11/12/17 09:35 Dose: 10 mg Montelukast Sodium (Singulair -) 10 mg PO DAILY [facility] Last Admin: 11/12/17 09:35 Dose: 10 mg Pantoprazole Sodium (Protonix Iv) 40 mg IVPUSH BID [facility] Last Admin: 11/12/17 09:33 Dose: 40 mg Polyethylene Glycol (Miralax (For Daily Use) -) 17 gm PO BID [facility] Last Admin: 11/12/17 09:45 Dose: 17 gm Potassium Chloride (K-Dur -) 20 meq PO DAILY [facility] Last Admin: 11/12/17 09:35 Dose: 20 meq Spironolactone (Aldactone -) 25 mg PO DAILY [facility] Last Admin: 11/12/17 09:35 Dose: 25 mg Tamsulosin HCl (Flomax -) 0.4 mg PO 0830 [facility] Last Admin: 11/12/17 08:18 Dose: 0.4 mg - Objective Vital Signs: Vital Signs Temperature 97.4 F L 11/12/17 06:00 Pulse Rate 74 11/12/17 06:00 Respiratory Rate 20 11/12/17 06:00 Blood Pressure 128/82 11/12/17 06:00 O2 Sat by Pulse Oximetry (%) 94 L 11/11/17 21:00 Constitutional: Yes: No Distress, Calm Eyes: Yes: Conjunctiva Clear, EOM Intact HENT: Yes: Atraumatic, Normocephalic Neck: Yes: Trachea Midline Cardiovascular: Yes: Regular Rate and Rhythm Respiratory: Yes: Rales (bilat bases) Musculoskeletal: Yes: WNL Extremities: Yes: WNL Edema: No Peripheral Pulses WNL: Yes Labs: CBC, BMP 11/10/17 06:00 11/10/17 06:00 Problem List - Problems (1) CHF (congestive heart failure) Assessment/Plan: Continue Lasix 40 mg IV twice a day. Increase Coreg to 6.25 mg twice daily. Start lisinopril 5 mg daily. Start Imdur 30 mg daily. Strict fluid and salt restrictions. No need for further cardiac workup at this point. Code(s): I50.9 - HEART FAILURE, UNSPECIFIED Qualifiers: Heart failure type: systolic Heart failure chronicity: acute on chronic Qualified Code(s): I50.23 - Acute on chronic systolic (congestive) heart failure (2) Atrial fibrillation Assessment/Plan: doing well, continue Eliquis for stroke prevention. Code(s): I48.91 - UNSPECIFIED ATRIAL FIBRILLATION Qualifiers: Atrial fibrillation type: paroxysmal Qualified Code(s): I48.0 - Paroxysmal atrial fibrillation
[2017-11-12] MEDS: ISOSORBIDE MONONITRATE 30 MG TAB.SR.24H (FP) PO SCH (10:58)
[2017-11-12] MEDS: LISINOPRIL 5 MG TABLET (FP) PO SCH (10:58)
[2017-11-12] MEDS: CLOTRIMAZOLE/BETAMET DIPROP 15 GM TUBE TP SCH ×2 (11:00→21:32)
[2017-11-12] MEDS ORDERED: INSULIN (NOVOLOG) ASPART 100 UNITS/ML 10ML VIAL ONE ×2 (11:02→16:28)
--- NOTE | 2017-11-12 15:14 | PN ---
Progress Note, Physician Chief Complaint: AWAKE C/O RIGHT SIDED ABD PAIN CONSTIPATED NO FEVER DENIES BLOOD IN URINE OR STOOL MY FIRST ENCOUNTER WITH THIS PATIENT EVENTS AND NOTES REVIEWED - Current Medication List Current Medications: Active Medications Acetaminophen (Tylenol -) 650 mg PO Q6H PRN PRN Reason: PAIN LEVEL 1 - 3 Last Admin: 11/11/17 20:53 Dose: 650 mg Albuterol/Ipratropium (Duoneb -) 1 amp NEB RQID [facility] Last Admin: 11/12/17 11:40 Dose: 1 amp Alprazolam (Xanax -) 0.25 mg PO BID [facility] Last Admin: 11/12/17 09:35 Dose: 0.25 mg Amoxicillin (Amoxicillin -) 500 mg PO BID [facility] Last Admin: 11/12/17 09:35 Dose: 500 mg Apixaban (Eliquis -) 5 mg PO BID [facility] Last Admin: 11/12/17 09:35 Dose: 5 mg Atorvastatin Calcium (Lipitor -) 80 mg PO HS [facility] Last Admin: 11/11/17 21:03 Dose: 80 mg Carvedilol (Coreg -) 3.125 mg PO BID [facility] Last Admin: 11/12/17 09:35 Dose: 3.125 mg Clotrimazole (Lotrisone Cream (Small Tube)) 1 applic TP BID [facility] Last Admin: 11/11/17 21:03 Dose: 1 applic Docusate Sodium (Colace -) 100 mg PO DAILY [facility] Last Admin: 11/12/17 09:34 Dose: 100 mg Duloxetine HCl (Cymbalta -) 60 mg PO DAILY [facility] Last Admin: 11/12/17 09:34 Dose: 60 mg Folic Acid (Folic Acid -) 1 mg PO DAILY [facility] Last Admin: 11/12/17 09:35 Dose: 1 mg Furosemide (Lasix Injection -) 40 mg IVPUSH BID@0600,1400 [facility] Last Admin: 11/12/17 13:40 Dose: 40 mg Gabapentin (Neurontin -) 100 mg PO BID [facility] Last Admin: 11/12/17 09:35 Dose: 100 mg Insulin Aspart (Novolog Vial Sliding Scale -) 1 vial SQ ACHS [facility] PRN Reason: Protocol Last Admin: 11/12/17 11:03 Dose: 7 units Insulin Detemir (Levemir Vial) 25 units SQ BID@0700,2200 [facility] Last Admin: 11/12/17 06:12 Dose: 25 units Isosorbide Mononitrate (Imdur -) 30 mg PO DAILY [facility] Last Admin: 11/12/17 10:58 Dose: 30 mg Levothyroxine Sodium 125 mcg/ (Levothyroxine Sodium 50 mcg) 175 mcg PO DAILY@ 0700 [facility] Last Admin: 11/12/17 06:11 Dose: 175 mcg Lisinopril (Prinivil) 5 mg PO DAILY [facility] Last Admin: 11/12/17 10:58 Dose: 5 mg Loratadine (Claritin -) 10 mg PO DAILY [facility] Last Admin: 11/12/17 09:35 Dose: 10 mg Montelukast Sodium (Singulair -) 10 mg PO DAILY [facility] Last Admin: 11/12/17 09:35 Dose: 10 mg Pantoprazole Sodium (Protonix Iv) 40 mg IVPUSH BID [facility] Last Admin: 11/12/17 09:33 Dose: 40 mg Polyethylene Glycol (Miralax (For Daily Use) -) 17 gm PO BID [facility] Last Admin: 11/12/17 09:45 Dose: 17 gm Potassium Chloride (K-Dur -) 20 meq PO DAILY [facility] Last Admin: 11/12/17 09:35 Dose: 20 meq Spironolactone (Aldactone -) 25 mg PO DAILY [facility] Last Admin: 11/12/17 09:35 Dose: 25 mg Tamsulosin HCl (Flomax -) 0.4 mg PO 0830 [facility] Last Admin: 11/12/17 08:18 Dose: 0.4 mg - Objective Vital Signs: Vital Signs Temperature 98.6 F 11/12/17 14:45 Pulse Rate 74 11/12/17 14:45 Respiratory Rate 20 11/12/17 14:45 Blood Pressure 111/60 11/12/17 14:45 O2 Sat by Pulse Oximetry (%) 96 11/12/17 09:00 Constitutional: Yes: Mild Distress Eyes: Yes: WNL HENT: Yes: WNL Neck: Yes: WNL Cardiovascular: Yes: Pulse Irregular Respiratory: Yes: WNL Gastrointestinal: Yes: Tenderness Genitourinary: Yes: WNL Musculoskeletal: Yes: Back Pain, Muscle Weakness Extremities: Yes: WNL Edema: Yes Edema: LLE: Trace, RLE: Trace Peripheral Pulses WNL: Yes Integumentary: Yes: WNL Wound/Incision: Yes: Clean/Dry Neurological: Yes: Pre-Existing Deficit, Unsteady Gait, Weakness ...Motor Strength: LLE, RLE Psychiatric: Yes: Other Labs: CBC, BMP 11/10/17 06:00 11/10/17 06:00 Problem List - Problems (1) Obesity (BMI 30-39.9) Code(s): E66.9 - OBESITY, UNSPECIFIED (2) CAD (coronary artery disease) Code(s): I25.10 - ATHSCL HEART DISEASE OF [place] CORONARY ARTERY W/O ANG PCTRS Qualifiers: Coronary Disease-Associated Artery/Lesion type: unspecified vessel or lesion type [place] vs. transplanted heart: [place] heart Associated angina: angina presence unspecified Qualified Code(s): I25.10 - Atherosclerotic heart disease of [place] coronary artery without angina pectoris (3) CHF (congestive heart failure) Code(s): I50.9 - HEART FAILURE, UNSPECIFIED Qualifiers: Heart failure type: systolic Heart failure chronicity: acute on chronic Qualified Code(s): I50.23 - Acute on chronic systolic (congestive) heart failure (4) Chest pain Code(s): R07.9 - CHEST PAIN, UNSPECIFIED Qualifiers: Chest pain type: unspecified Qualified Code(s): R07.9 - Chest pain, unspecified (5) Shortness of breath Code(s): R06.02 - SHORTNESS OF BREATH (6) ASHD (arteriosclerotic heart disease) Code(s): I25.10 - ATHSCL HEART DISEASE OF [place] CORONARY ARTERY W/O ANG PCTRS (7) Abdominal distension (gaseous) Code(s): R14.0 - ABDOMINAL DISTENSION (GASEOUS) (8) Abdominal pain Code(s): R10.9 - UNSPECIFIED ABDOMINAL PAIN Qualifiers: Abdominal location: right upper quadrant Qualified Code(s): R10.11 - Right upper quadrant pain (9) COPD (chronic obstructive pulmonary disease) Code(s): J44.9 - CHRONIC OBSTRUCTIVE PULMONARY DISEASE, UNSPECIFIED (10) Diabetes mellitus, insulin dependent (IDDM), uncontrolled Code(s): E10.65 - TYPE 1 DIABETES MELLITUS WITH HYPERGLYCEMIA Qualifiers: (11) Type 2 diabetes mellitus with diabetic chronic kidney disease Code(s): E11.22 - TYPE 2 DIABETES MELLITUS W DIABETIC CHRONIC KIDNEY DISEASE (12) 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
[2017-11-12] MEDS: ATORVASTATIN CA 80 MG TABLET (FP) PO SCH (21:31)
[2017-11-12] MEDS: ACETAMINOPHEN 325 MG TABLET (FP) PO PRN (22:14)
[2017-11-13] MEDS ORDERED: LEVOTHYROXINE NA 125 MCG TABLET (FP) ONE (06:12)
[2017-11-13] MEDS ORDERED: LEVOTHYROXINE NA 50 MCG TABLET (FP) ONE (06:12)
[2017-11-13] MEDS: INSULIN SLIDING SCALE (NOVOLOG) 1 VIAL SQ SCH ×4 (06:26→22:27)
[2017-11-13] MEDS: INSULIN DETEMIR 100 UNITS/ML MDV SQ SCH ×2 (06:26→22:26)
[2017-11-13] MEDS: FUROSEMIDE 40 MG/4 ML INJECTABLE VIAL IVPUSH SCH ×2 (06:28→13:08)
[2017-11-13] MEDS: LEVOTHYROXINE 125 MCG, LEVOTHYROXINE 50 MCG PO SCH (06:28)
[2017-11-13] MEDS: ALBUTEROL SO4 2.5/IPRATROPIUM 0.5 INH SOL 3 ML VIAL.NEB. NEB SCH ×4 (07:55→20:23)
--- NOTE | 2017-11-13 08:29 | PN ---
Progress Note, Physician History of Present Illness: pain better today - Current Medication List Current Medications: Active Medications Acetaminophen (Tylenol -) 650 mg PO Q6H PRN PRN Reason: PAIN LEVEL 1 - 3 Last Admin: 11/12/17 22:14 Dose: 650 mg Albuterol/Ipratropium (Duoneb -) 1 amp NEB RQID [facility] Last Admin: 11/12/17 19:47 Dose: 1 amp Alprazolam (Xanax -) 0.25 mg PO BID [facility] Last Admin: 11/12/17 21:31 Dose: 0.25 mg Amoxicillin (Amoxicillin -) 500 mg PO BID [facility] Last Admin: 11/12/17 21:31 Dose: 500 mg Apixaban (Eliquis -) 5 mg PO BID [facility] Last Admin: 11/12/17 21:31 Dose: 5 mg Atorvastatin Calcium (Lipitor -) 80 mg PO HS [facility] Last Admin: 11/12/17 21:31 Dose: 80 mg Carvedilol (Coreg -) 3.125 mg PO BID [facility] Last Admin: 11/12/17 21:32 Dose: Not Given Clotrimazole (Lotrisone Cream (Small Tube)) 1 applic TP BID [facility] Last Admin: 11/12/17 21:32 Dose: 1 applic Docusate Sodium (Colace -) 100 mg PO DAILY [facility] Last Admin: 11/12/17 09:34 Dose: 100 mg Duloxetine HCl (Cymbalta -) 60 mg PO DAILY [facility] Last Admin: 11/12/17 09:34 Dose: 60 mg Folic Acid (Folic Acid -) 1 mg PO DAILY [facility] Last Admin: 11/12/17 09:35 Dose: 1 mg Furosemide (Lasix Injection -) 40 mg IVPUSH BID@0600,1400 [facility] Last Admin: 11/13/17 06:28 Dose: 40 mg Gabapentin (Neurontin -) 100 mg PO BID [facility] Last Admin: 11/12/17 21:31 Dose: 100 mg Insulin Aspart (Novolog Vial Sliding Scale -) 1 vial SQ ACHS [facility] PRN Reason: Protocol Last Admin: 11/13/17 06:26 Dose: Not Given Insulin Detemir (Levemir Vial) 25 units SQ BID@0700,2200 [facility] Last Admin: 11/13/17 06:26 Dose: Not Given Isosorbide Mononitrate (Imdur -) 30 mg PO DAILY [facility] Last Admin: 11/12/17 10:58 Dose: 30 mg Levothyroxine Sodium 125 mcg/ (Levothyroxine Sodium 50 mcg) 175 mcg PO DAILY@ 0700 [facility] Last Admin: 11/13/17 06:28 Dose: 175 mcg Lisinopril (Prinivil) 5 mg PO DAILY [facility] Last Admin: 11/12/17 10:58 Dose: 5 mg Loratadine (Claritin -) 10 mg PO DAILY [facility] Last Admin: 11/12/17 09:35 Dose: 10 mg Montelukast Sodium (Singulair -) 10 mg PO DAILY [facility] Last Admin: 11/12/17 09:35 Dose: 10 mg Pantoprazole Sodium (Protonix Iv) 40 mg IVPUSH BID [facility] Last Admin: 11/12/17 21:32 Dose: 40 mg Polyethylene Glycol (Miralax (For Daily Use) -) 17 gm PO BID [facility] Last Admin: 11/12/17 21:25 Dose: Not Given Potassium Chloride (K-Dur -) 20 meq PO DAILY [facility] Last Admin: 11/12/17 09:35 Dose: 20 meq Spironolactone (Aldactone -) 25 mg PO DAILY [facility] Last Admin: 11/12/17 09:35 Dose: 25 mg Tamsulosin HCl (Flomax -) 0.4 mg PO 0830 [facility] Last Admin: 11/12/17 08:18 Dose: 0.4 mg - Objective Vital Signs: Vital Signs Temperature 98.6 F 11/13/17 06:00 Pulse Rate 73 11/13/17 06:00 Respiratory Rate 20 11/13/17 06:00 Blood Pressure 104/49 11/13/17 06:00 O2 Sat by Pulse Oximetry (%) 95 11/12/17 21:00 Cardiovascular: Yes: S1, S2 Respiratory: Yes: Regular, CTA Bilaterally Gastrointestinal: Yes: Normal Bowel Sounds, Soft. No: Tenderness Labs: CBC, BMP 11/10/17 06:00 11/10/17 06:00 Problem List - Problems (1) Chest pain Assessment/Plan: RESOLVED FOLLOW CE--MILD ELEVATED--MAY BE DUE TO DEMAND--CHF CARDIO NOTED CONTINUE WITH CURRENT MEDS Code(s): R07.9 - CHEST PAIN, UNSPECIFIED Qualifiers: Chest pain type: unspecified Qualified Code(s): R07.9 - Chest pain, unspecified (2) CAD (coronary artery disease) Assessment/Plan: ABOVE Code(s): I25.10 - ATHSCL HEART DISEASE OF [place] CORONARY ARTERY W/O ANG PCTRS Qualifiers: Coronary Disease-Associated Artery/Lesion type: unspecified vessel or lesion type [place] vs. transplanted heart: [place] heart Associated angina: angina presence unspecified Qualified Code(s): I25.10 - Atherosclerotic heart disease of [place] coronary artery without angina pectoris (3) CHF (congestive heart failure) Assessment/Plan: -improving -IV LASIX -MONITOR LYTES Code(s): I50.9 - HEART FAILURE, UNSPECIFIED Qualifiers: Heart failure type: systolic Heart failure chronicity: acute on chronic Qualified Code(s): I50.23 - Acute on chronic systolic (congestive) heart failure (4) COPD (chronic obstructive pulmonary disease) Assessment/Plan: NEBS Code(s): J44.9 - CHRONIC OBSTRUCTIVE PULMONARY DISEASE, UNSPECIFIED (5) Diabetes mellitus, insulin dependent (IDDM), uncontrolled Assessment/Plan: INSULIN BGM Code(s): E10.65 - TYPE 1 DIABETES MELLITUS WITH HYPERGLYCEMIA Qualifiers: (6) Constipation Assessment/Plan: -DULCOLOX -INCREASE MIRALAX Code(s): K59.00 - CONSTIPATION, UNSPECIFIED (7) Abdominal pain Assessment/Plan: -improved -go -xray - Code(s): R10.9 - UNSPECIFIED ABDOMINAL PAIN Qualifiers: Abdominal location: right upper quadrant Qualified Code(s): R10.11 - Right upper quadrant pain
[2017-11-13] MEDS ORDERED: PT OWN MED DRAWER 7, Y5N ONE ×2 (10:23→22:03)
[2017-11-13] MEDS: DULoxetine HCL 30 MG CAPSULE.DR (FP) PO SCH (10:31)
[2017-11-13] MEDS: GABAPENTIN 100 MG CAPSULE (FP) PO SCH ×2 (10:31→22:25)
[2017-11-13] MEDS: APIXABAN 5 MG TABLET PO SCH ×2 (10:31→22:24)
[2017-11-13] MEDS: LORATADINE 10 MG TABLET PO SCH (10:31)
[2017-11-13] MEDS: ISOSORBIDE MONONITRATE 30 MG TAB.SR.24H (FP) PO SCH (10:31)
[2017-11-13] MEDS: AMOXICILLIN 500 MG CAPSULE (FP) PO SCH ×2 (10:31→22:23)
[2017-11-13] MEDS: TAMSULOSIN HCL 0.4 MG CAP.ER.24H (FP) PO SCH (10:31)
[2017-11-13] MEDS: MONTELUKAST NA 10 MG TABLET PO SCH (10:31)
[2017-11-13] MEDS: FOLIC ACID 1 MG TABLET (FP) PO SCH (10:32)
[2017-11-13] MEDS: DOCUSATE SODIUM 100 MG CAPSULE (FP) PO SCH (10:32)
[2017-11-13] MEDS: CLOTRIMAZOLE/BETAMET DIPROP 15 GM TUBE TP SCH ×2 (10:32→22:32)
[2017-11-13] MEDS: POLYETHYLENE GLYCOL 3350 119 GM BTL PO SCH ×2 (10:33→22:24)
[2017-11-13] MEDS: PANTOPRAZOLE SODIUM 40 MG VIAL IVPUSH SCH ×2 (10:33→22:25)
[2017-11-13] MEDS: SPIRONOLACTONE 25 MG TABLET (FP) PO SCH (10:33)
[2017-11-13] MEDS: ALPRAZolam 0.25 MG TABLET PO SCH ×2 (10:34→22:25)
--- NOTE | 2017-11-13 10:49 | PN ---
Progress Note, Physician Chief Complaint: Less SOB tele neg History of Present Illness: 82-year-old man, with multiple medical problems, now readmitted with recurrent chest pains and shortness of breath. Acute on chronic systolic heart failure. There is no evidence of ischemia nor acute coronary syndrome. No further angina. - Current Medication List Current Medications: Active Medications Acetaminophen (Tylenol -) 650 mg PO Q6H PRN PRN Reason: PAIN LEVEL 1 - 3 Last Admin: 11/12/17 22:14 Dose: 650 mg Albuterol/Ipratropium (Duoneb -) 1 amp NEB RQID [facility] Last Admin: 11/13/17 07:55 Dose: 1 amp Alprazolam (Xanax -) 0.25 mg PO BID [facility] Last Admin: 11/13/17 10:34 Dose: 0.25 mg Amoxicillin (Amoxicillin -) 500 mg PO BID [facility] Last Admin: 11/13/17 10:31 Dose: 500 mg Apixaban (Eliquis -) 5 mg PO BID [facility] Last Admin: 11/13/17 10:31 Dose: 5 mg Atorvastatin Calcium (Lipitor -) 80 mg PO HS [facility] Last Admin: 11/12/17 21:31 Dose: 80 mg Carvedilol (Coreg -) 3.125 mg PO BID [facility] Last Admin: 11/12/17 21:32 Dose: Not Given Clotrimazole (Lotrisone Cream (Small Tube)) 1 applic TP BID [facility] Last Admin: 11/13/17 10:32 Dose: 1 applic Docusate Sodium (Colace -) 100 mg PO DAILY [facility] Last Admin: 11/13/17 10:32 Dose: 100 mg Duloxetine HCl (Cymbalta -) 60 mg PO DAILY [facility] Last Admin: 11/13/17 10:31 Dose: 60 mg Folic Acid (Folic Acid -) 1 mg PO DAILY [facility] Last Admin: 11/13/17 10:32 Dose: 1 mg Furosemide (Lasix Injection -) 40 mg IVPUSH BID@0600,1400 [facility] Last Admin: 11/13/17 06:28 Dose: 40 mg Gabapentin (Neurontin -) 100 mg PO BID [facility] Last Admin: 11/13/17 10:31 Dose: 100 mg Insulin Aspart (Novolog Vial Sliding Scale -) 1 vial SQ ACHS [facility] PRN Reason: Protocol Last Admin: 02/20/18 06:26 Dose: Not Given Insulin Detemir (Levemir Vial) 25 units SQ BID@0700,2200 [facility] Last Admin: 11/13/17 06:26 Dose: Not Given Isosorbide Mononitrate (Imdur -) 30 mg PO DAILY [facility] Last Admin: 11/13/17 10:31 Dose: 30 mg Levothyroxine Sodium 125 mcg/ (Levothyroxine Sodium 50 mcg) 175 mcg PO DAILY@ 0700 [facility] Last Admin: 11/13/17 06:28 Dose: 175 mcg Lisinopril (Prinivil) 5 mg PO DAILY [facility] Last Admin: 11/12/17 10:58 Dose: 5 mg Loratadine (Claritin -) 10 mg PO DAILY [facility] Last Admin: 11/13/17 10:31 Dose: 10 mg Montelukast Sodium (Singulair -) 10 mg PO DAILY [facility] Last Admin: 11/13/17 10:31 Dose: 10 mg Pantoprazole Sodium (Protonix Iv) 40 mg IVPUSH BID [facility] Last Admin: 11/13/17 10:33 Dose: 40 mg Polyethylene Glycol (Miralax (For Daily Use) -) 17 gm PO BID [facility] Last Admin: 11/13/17 10:33 Dose: Not Given Potassium Chloride (K-Dur -) 20 meq PO DAILY [facility] Last Admin: 11/12/17 09:35 Dose: 20 meq Spironolactone (Aldactone -) 25 mg PO DAILY [facility] Last Admin: 11/13/17 10:33 Dose: 25 mg Tamsulosin HCl (Flomax -) 0.4 mg PO 0830 [facility] Last Admin: 11/13/17 10:31 Dose: 0.4 mg - Objective Vital Signs: Vital Signs Temperature 98.6 F 11/13/17 06:00 Pulse Rate 73 11/13/17 06:00 Respiratory Rate 20 11/13/17 06:00 Blood Pressure 104/49 11/13/17 06:00 O2 Sat by Pulse Oximetry (%) 95 11/12/17 21:00 Constitutional: Yes: No Distress, Calm Eyes: Yes: Conjunctiva Clear, EOM Intact HENT: Yes: Atraumatic, Normocephalic Neck: Yes: Trachea Midline Cardiovascular: Yes: Regular Rate and Rhythm Respiratory: Yes: CTA Bilaterally Gastrointestinal: Yes: Normal Bowel Sounds, Soft Musculoskeletal: Yes: WNL. No: Back Pain, Joint Stiffness, Joint Swelling, Muscle Pain, Muscle Weakness, Other Edema: No Peripheral Pulses WNL: Yes Labs: CBC, BMP 11/10/17 06:00 11/10/17 06:00 Problem List - Problems (1) CHF (congestive heart failure) Assessment/Plan: Continue Lasix 40 mg IV twice a day. Increase Coreg to 6.25 mg twice daily. Continue lisinopril 5 mg daily. Continue Imdur 30 mg daily. Strict fluid and salt restrictions. No need for further cardiac workup at this point. Code(s): I50.9 - HEART FAILURE, UNSPECIFIED Qualifiers: Heart failure type: systolic Heart failure chronicity: acute on chronic Qualified Code(s): I50.23 - Acute on chronic systolic (congestive) heart failure (2) Atrial fibrillation Assessment/Plan: doing well, continue Eliquis for stroke prevention. d stable and well controlled. Code(s): I48.91 - UNSPECIFIED ATRIAL FIBRILLATION Qualifiers: Atrial fibrillation type: paroxysmal Qualified Code(s): I48.0 - Paroxysmal atrial fibrillation
[2017-11-13] MEDS ORDERED: INSULIN (NOVOLOG) ASPART 100 UNITS/ML 10ML VIAL ONE (11:21)
[2017-11-13 11:40] LABS: BASO % 1.2 % (0-2.0); EOS % 5.5 % (0-4.5); HEMATOCRIT 33.3 % (35.4-49); HEMOGLOBIN 10.6 GM/dL (11.7-16.9); LYMPH % 10.4 % (8-40); MCH 27.6 pg (25.7-33.7); MCHC 31.9 g/dl (32.0-35.9); MEAN CELL VOLUME 86.4 fl (80-96); MONO % 13.7 % (3.8-10.2); NEUT % 69.2 % (42.8-82.8); PLATELET COUNT 140 K/MM3 (134-434); RBC 3.85 M/mm3 (4.00-5.60); RDW 16.1 % (11.9-15.9); WHITE BLOOD COUNT 5.6 K/mm3 (4.0-10.0)
[2017-11-13 12:04] LABS: ALK PHOS 118 U/L (45-117); ANION GAP 6 (8-16); BILIRUBIN,TOTAL 0.7 mg/dL (0.2-1.0); BLOOD UREA NITROGEN 36 mg/dL (7-18); CALCIUM 7.9 mg/dL (8.5-10.1); CHLORIDE 99 mmol/L (98-107); CO2 30 mmol/L (21-32); CREATININE 1.5 mg/dL (0.7-1.3); GLUCOSE,RANDOM 281 mg/dL (74-106); POTASSIUM 3.9 mmol/L (3.5-5.1); SGOT/AST 8 U/L (15-37); SGPT/ALT 15 U/L (12-78); SODIUM 135 mmol/L (136-145); TOT PROT 6.6 g/dl (6.4-8.2)
[2017-11-13] MEDS: POTASSIUM CHLORIDE TABS 20 MEQ TABLET.ER (FP) PO SCH (12:44)
[2017-11-13] MEDS: LISINOPRIL 5 MG TABLET (FP) PO SCH (12:45)
[2017-11-13] MEDS: CARVEDILOL 3.125 MG TABLET (FP) PO SCH ×2 (12:45→22:23)
[2017-11-13] MEDS: ACETAMINOPHEN 325 MG TABLET (FP) PO PRN ×2 (13:18→23:44)
--- NOTE | 2017-11-13 20:25 | CON.GI ---
Consult Consult Specialty:: GI Referred by:: dr Rowan - History of Present Illness History of Present Illness: 82 y/o male with PMH CAD has chronic constipation, abdominal distention and abdominal bloating. 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 No: Alzheimer's Cardio/Vascular: Yes: AFIB, Aneurysm (mild ascending aortic aneurysm (4.2 cm) per 01/[address]), CAD (stents x2 in 2010; thrombectomy & PCI of proximal and mid LAD with Promus Premier stents and PTCA of D1 on 12/18/15 at [facility] for acute/subacute anteroseptal CA), CHF, HTN, Hyperlipdemia, Other (ischemic cardiomyopathy (LVEF 34% per 02/16/16 nuclear study)) Gastrointestinal: Yes: Constipation, Diverticulosis Musculoskeletal: Yes: Other (rib fx's right) Endocrine: Yes: Diabetes Mellitus, Hypothyroidism - Past Surgical History Past Surgical History: Yes: Arthrosocopy (Right knee arthroscopy w/ partial medial and lateral meniscectomy 09/01/15), Colectomy - Alcohol/Substance Use Hx Alcohol Use: No History of Substance Use: reports: None - Smoking History Smoking history: Former smoker Have you smoked in the past 12 months: No Aproximately how many cigarettes per day: 0 If you are a former smoker, when did you quit?: 40 years ago - Social History Usual Living Arrangement: Prison (since last d/c) 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 History of Recent Travel: No Home Medications - Allergies Allergies/Adverse Reactions: Allergies Allergy/AdvReac Type Severity Reaction Status Date / Time No Known Drug Allergies Allergy Verified 11/09/17 12:25 - Home Medications Home Medications: Ambulatory Orders Alprazolam [Xanax] 0.25 mg PO BID 09/25/17 Amoxicillin - [Amoxicillin 500mg Capsule -] 500 mg PO BID 09/25/17 Atorvastatin Ca [Lipitor] 80 mg PO HS 09/25/17 Carvedilol 3.125 mg PO BID 09/25/17 Cetirizine HCl 10 mg PO DAILY 09/25/17 Docusate Sodium 300 mg PO DAILY 09/25/17 Duloxetine HCl [Cymbalta -] 60 mg PO DAILY 09/25/17 Folic Acid 1 mg PO DAILY 09/25/17 Furosemide [Lasix -] 80 mg PO BID 09/25/17 Gabapentin [Neurontin -] 100 mg PO BID 09/25/17 Insulin Sliding Scale [Novolog Vial Sliding Scale -] 0 units SQ TIDAC 09/25/17 Levothyroxine [Synthroid -] 175 mcg PO DAILY 09/25/17 Montelukast Sodium [Singulair] 10 mg PO DAILY 09/25/17 Polyethylene Glycol 3350 [Miralax 119 gm Btl -] 17 gm PO DAILY 09/25/17 Potassium Chloride [K-Dur -] 20 meq PO DAILY 09/25/17 Spironolactone 25 mg PO DAILY 09/25/17 Tamsulosin HCl [Flomax -] 0.4 mg PO DAILY 09/25/17 Apixaban [Eliquis -] 5 mg PO BID #6 tablet 09/28/17 Clotrimazole/Betamet Diprop [Lotrisone -] 1 applic TP BID #60 grams 09/28/17 Insulin (Levemir) [Levemir Vial] 50 units SQ HS ml 09/28/17 Pantoprazole Sodium [Protonix -] 20 mg PO DAILY #30 tablet.ec 09/28/17 Warfarin Na [Coumadin -] 2.5 mg PO DAILY@1800 #30 tablet 09/28/17 Physical Exam-GI Vital Signs: Vital Signs Temperature 98.0 F 11/13/17 14:09 Pulse Rate 64 11/13/17 14:09 Respiratory Rate 18 11/13/17 14:09 Blood Pressure 112/53 11/13/17 14:09 O2 Sat by Pulse Oximetry (%) 95 11/13/17 09:00 Constitutional: Yes: Obese Eyes: Yes: Conjunctiva Clear HENT: Yes: Atraumatic Neck: Yes: Supple Cardiovascular: Yes: Regular Rate and Rhythm Respiratory: Yes: CTA Bilaterally ...Auscultate: No: Hypoactive Bowel Sounds ...Palpate: Yes: Soft, Tenderness (--mild diffuse). No: Firm/Rigid, Guarding, Hepatomegaly, Mass, Pulsatile Mass, Splenomegaly Labs: CBC, BMP 11/13/17 11:25 11/13/17 11:25 Problem List - Problems (1) IBS (irritable bowel syndrome) Assessment/Plan: with constipation suspect small bacterial overgrowth and pancreatic insufficicency R> Citroma 1 naty tonight and tomorrow at 8 am flagyl 250mg tid creon with meals Code(s): K58.9 - IRRITABLE BOWEL SYNDROME WITHOUT DIARRHEA
[2017-11-13] MEDS ORDERED: MAGNESIUM CITRATE 300 ML BOTTLE PO ONE ×2 (20:45→22:15)
[2017-11-13] MEDS: ATORVASTATIN CA 80 MG TABLET (FP) PO SCH (22:24)
[2017-11-13] MEDS: metroNIDAZOLE 250 MG TABLET PO SCH (22:24)
[2017-11-14] MEDS ORDERED: LEVOTHYROXINE NA 50 MCG TABLET (FP) ONE (06:21)
[2017-11-14] MEDS ORDERED: LEVOTHYROXINE NA 125 MCG TABLET (FP) ONE (06:22)
[2017-11-14] MEDS: LEVOTHYROXINE 125 MCG, LEVOTHYROXINE 50 MCG PO SCH (06:27)
[2017-11-14] MEDS: METOCLOPRAMIDE HCL 10 MG TABLET (FP) PO SCH ×3 (06:28→17:07)
[2017-11-14] MEDS: metroNIDAZOLE 250 MG TABLET PO SCH ×3 (06:28→21:51)
[2017-11-14] MEDS: INSULIN DETEMIR 100 UNITS/ML MDV SQ SCH ×2 (06:30→21:52)
[2017-11-14] MEDS: FUROSEMIDE 40 MG/4 ML INJECTABLE VIAL IVPUSH SCH ×2 (06:30→14:32)
[2017-11-14] MEDS: INSULIN SLIDING SCALE (NOVOLOG) 1 VIAL SQ SCH ×4 (06:30→21:52)
[2017-11-14] MEDS: ALBUTEROL SO4 2.5/IPRATROPIUM 0.5 INH SOL 3 ML VIAL.NEB. NEB SCH ×4 (08:45→20:46)
--- NOTE | 2017-11-14 08:53 | PN ---
Progress Note, Physician - Current Medication List Current Medications: Active Medications Acetaminophen (Tylenol -) 650 mg PO Q6H PRN PRN Reason: PAIN LEVEL 1 - 3 Last Admin: 11/13/17 23:44 Dose: 650 mg Albuterol/Ipratropium (Duoneb -) 1 amp NEB RQID [facility] Last Admin: 11/13/17 20:23 Dose: 1 amp Alprazolam (Xanax -) 0.25 mg PO BID [facility] Last Admin: 11/13/17 22:25 Dose: 0.25 mg Amoxicillin (Amoxicillin -) 500 mg PO BID [facility] Last Admin: 11/13/17 22:23 Dose: 500 mg Apixaban (Eliquis -) 5 mg PO BID [facility] Last Admin: 11/13/17 22:24 Dose: 5 mg Atorvastatin Calcium (Lipitor -) 80 mg PO HS [facility] Last Admin: 11/13/17 22:24 Dose: 80 mg Carvedilol (Coreg -) 3.125 mg PO BID [facility] Last Admin: 11/13/17 22:23 Dose: 3.125 mg Clotrimazole (Lotrisone Cream (Small Tube)) 1 applic TP BID [facility] Last Admin: 11/13/17 22:32 Dose: 1 applic Docusate Sodium (Colace -) 100 mg PO DAILY [facility] Last Admin: 11/13/17 10:32 Dose: 100 mg Duloxetine HCl (Cymbalta -) 60 mg PO DAILY [facility] Last Admin: 11/13/17 10:31 Dose: 60 mg Folic Acid (Folic Acid -) 1 mg PO DAILY [facility] Last Admin: 11/13/17 10:32 Dose: 1 mg Furosemide (Lasix Injection -) 60 mg IVPUSH BID@0600,1400 [facility] Gabapentin (Neurontin -) 100 mg PO BID [facility] Last Admin: 11/13/17 22:25 Dose: 100 mg Insulin Aspart (Novolog Vial Sliding Scale -) 1 vial SQ ACHS [facility] PRN Reason: Protocol Last Admin: 11/14/17 06:30 Dose: 2 units Insulin Detemir (Levemir Vial) 25 units SQ BID@0700,2200 [facility] Last Admin: 11/14/17 06:30 Dose: 25 units Isosorbide Mononitrate (Imdur -) 30 mg PO DAILY [facility] Last Admin: 11/13/17 10:31 Dose: 30 mg Levothyroxine Sodium 125 mcg/ (Levothyroxine Sodium 50 mcg) 175 mcg PO DAILY@ 0700 [facility] Last Admin: 11/14/17 06:27 Dose: 175 mcg Lisinopril (Prinivil) 5 mg PO DAILY [facility] Last Admin: 11/13/17 12:45 Dose: 5 mg Loratadine (Claritin -) 10 mg PO DAILY [facility] Last Admin: 11/13/17 10:31 Dose: 10 mg Metoclopramide HCl (Reglan -) 5 mg PO TIDAC [facility] Last Admin: 11/14/17 06:28 Dose: 5 mg Metronidazole (Flagyl -) 250 mg PO TID [facility] Last Admin: 11/14/17 06:28 Dose: 250 mg Montelukast Sodium (Singulair -) 10 mg PO DAILY [facility] Last Admin: 11/13/17 10:31 Dose: 10 mg Pancrelipase (Creon Dr 36,000 Units Capsule) 1 cap PO TIDCM [facility] Pantoprazole Sodium (Protonix Iv) 40 mg IVPUSH BID [facility] Last Admin: 11/13/17 22:25 Dose: 40 mg Polyethylene Glycol (Miralax (For Daily Use) -) 34 gm PO BID [facility] Last Admin: 11/13/17 22:24 Dose: 34 grams Potassium Chloride (K-Dur -) 20 meq PO DAILY [facility] Last Admin: 11/13/17 12:44 Dose: 20 meq Spironolactone (Aldactone -) 25 mg PO DAILY [facility] Last Admin: 11/13/17 10:33 Dose: 25 mg Tamsulosin HCl (Flomax -) 0.4 mg PO 0830 [facility] Last Admin: 11/13/17 10:31 Dose: 0.4 mg - Objective Vital Signs: Vital Signs Temperature 98.9 F 11/14/17 06:00 Pulse Rate 80 11/14/17 06:00 Respiratory Rate 20 11/14/17 06:00 Blood Pressure 100/66 11/14/17 06:00 O2 Sat by Pulse Oximetry (%) 95 11/13/17 21:00 Cardiovascular: Yes: Regular Rate and Rhythm Respiratory: Yes: Regular, CTA Bilaterally Gastrointestinal: Yes: Normal Bowel Sounds, Soft Edema: Yes Labs: CBC, BMP 11/13/17 11:25 11/13/17 11:25 Problem List - Problems (1) Chest pain Assessment/Plan: RESOLVED FOLLOW CE--MILD ELEVATED--MAY BE DUE TO DEMAND--CHF CARDIO NOTED CONTINUE WITH CURRENT MEDS Code(s): R07.9 - CHEST PAIN, UNSPECIFIED Qualifiers: Chest pain type: unspecified Qualified Code(s): R07.9 - Chest pain, unspecified (2) CAD (coronary artery disease) Assessment/Plan: ABOVE Code(s): I25.10 - ATHSCL HEART DISEASE OF [place] CORONARY ARTERY W/O ANG PCTRS Qualifiers: Coronary Disease-Associated Artery/Lesion type: unspecified vessel or lesion type [place] vs. transplanted heart: [place] heart Associated angina: angina presence unspecified Qualified Code(s): I25.10 - Atherosclerotic heart disease of [place] coronary artery without angina pectoris (3) CHF (congestive heart failure) Assessment/Plan: -improving -IV LASIX--Increase to 60 bid -MONITOR LYTES Code(s): I50.9 - HEART FAILURE, UNSPECIFIED Qualifiers: Heart failure type: systolic Heart failure chronicity: acute on chronic Qualified Code(s): I50.23 - Acute on chronic systolic (congestive) heart failure (4) COPD (chronic obstructive pulmonary disease) Assessment/Plan: NEBS Code(s): J44.9 - CHRONIC OBSTRUCTIVE PULMONARY DISEASE, UNSPECIFIED (5) Diabetes mellitus, insulin dependent (IDDM), uncontrolled Assessment/Plan: INSULIN BGM Code(s): E10.65 - TYPE 1 DIABETES MELLITUS WITH HYPERGLYCEMIA Qualifiers: (6) Constipation Assessment/Plan: -DULCOLOX -INCREASE MIRALAX -GI consult noted and appreciated Code(s): K59.00 - CONSTIPATION, UNSPECIFIED (7) Abdominal pain Assessment/Plan: -resolve -gi noted -xray no obstruction -us-fatty liver Code(s): R10.9 - UNSPECIFIED ABDOMINAL PAIN Qualifiers: Abdominal location: right upper quadrant Qualified Code(s): R10.11 - Right upper quadrant pain
[2017-11-14] MEDS: MAGNESIUM CITRATE 300 ML BOTTLE PO ONE ×2 (09:37→09:43)
[2017-11-14] MEDS: AMOXICILLIN 500 MG CAPSULE (FP) PO SCH ×2 (09:38→21:50)
[2017-11-14] MEDS: LIPASE/PROTEASE/AMYLASE 36,000 UNIT CAPSULE PO SCH ×3 (09:38→17:08)
[2017-11-14] MEDS: SPIRONOLACTONE 25 MG TABLET (FP) PO SCH (09:39)
[2017-11-14] MEDS: ISOSORBIDE MONONITRATE 30 MG TAB.SR.24H (FP) PO SCH (09:39)
[2017-11-14] MEDS: DULoxetine HCL 30 MG CAPSULE.DR (FP) PO SCH (09:39)
[2017-11-14] MEDS: ALPRAZolam 0.25 MG TABLET PO SCH ×2 (09:39→21:51)
[2017-11-14] MEDS: TAMSULOSIN HCL 0.4 MG CAP.ER.24H (FP) PO SCH (09:39)
[2017-11-14] MEDS: CARVEDILOL 3.125 MG TABLET (FP) PO SCH ×2 (09:40→21:51)
[2017-11-14] MEDS: LORATADINE 10 MG TABLET PO SCH (09:40)
[2017-11-14] MEDS: LISINOPRIL 5 MG TABLET (FP) PO SCH (09:40)
[2017-11-14] MEDS: GABAPENTIN 100 MG CAPSULE (FP) PO SCH ×2 (09:40→21:51)
[2017-11-14] MEDS: APIXABAN 5 MG TABLET PO SCH ×2 (09:40→21:51)
[2017-11-14] MEDS: MONTELUKAST NA 10 MG TABLET PO SCH (09:40)
[2017-11-14] MEDS: FOLIC ACID 1 MG TABLET (FP) PO SCH (09:40)
[2017-11-14] MEDS: DOCUSATE SODIUM 100 MG CAPSULE (FP) PO SCH (09:41)
[2017-11-14] MEDS: POLYETHYLENE GLYCOL 3350 119 GM BTL PO SCH ×2 (09:41→21:53)
[2017-11-14] MEDS: POTASSIUM CHLORIDE TABS 20 MEQ TABLET.ER (FP) PO SCH (09:41)
[2017-11-14] MEDS: PANTOPRAZOLE SODIUM 40 MG VIAL IVPUSH SCH ×2 (09:41→21:51)
[2017-11-14] MEDS: CLOTRIMAZOLE/BETAMET DIPROP 15 GM TUBE TP SCH ×2 (09:41→21:52)
[2017-11-14] MEDS ORDERED: INSULIN (NOVOLOG) ASPART 100 UNITS/ML 10ML VIAL ONE (12:16)
--- NOTE | 2017-11-14 14:55 | PN ---
Progress Note, Physician Chief Complaint: No SOB tele neg History of Present Illness: 82-year-old man, with multiple medical problems, now readmitted with recurrent chest pains and shortness of breath. Acute on chronic systolic heart failure. There is no evidence of ischemia nor acute coronary syndrome. No further angina. no sob lying flat now. - Current Medication List Current Medications: Active Medications Acetaminophen (Tylenol -) 650 mg PO Q6H PRN PRN Reason: PAIN LEVEL 1 - 3 Last Admin: 11/13/17 23:44 Dose: 650 mg Albuterol/Ipratropium (Duoneb -) 1 amp NEB RQID [facility] Last Admin: 11/14/17 11:20 Dose: 1 amp Alprazolam (Xanax -) 0.25 mg PO BID [facility] Last Admin: 11/14/17 09:39 Dose: 0.25 mg Amoxicillin (Amoxicillin -) 500 mg PO BID [facility] Last Admin: 11/14/17 09:38 Dose: 500 mg Apixaban (Eliquis -) 5 mg PO BID [facility] Last Admin: 11/14/17 09:40 Dose: 5 mg Atorvastatin Calcium (Lipitor -) 80 mg PO HS [facility] Last Admin: 11/13/17 22:24 Dose: 80 mg Carvedilol (Coreg -) 3.125 mg PO BID [facility] Last Admin: 11/14/17 09:40 Dose: 3.125 mg Clotrimazole (Lotrisone Cream (Small Tube)) 1 applic TP BID [facility] Last Admin: 11/14/17 09:41 Dose: 1 applic Docusate Sodium (Colace -) 100 mg PO DAILY [facility] Last Admin: 11/14/17 09:41 Dose: Not Given Duloxetine HCl (Cymbalta -) 60 mg PO DAILY [facility] Last Admin: 11/14/17 09:39 Dose: 60 mg Folic Acid (Folic Acid -) 1 mg PO DAILY [facility] Last Admin: 11/14/17 09:40 Dose: 1 mg Furosemide (Lasix Injection -) 60 mg IVPUSH BID@0600,1400 [facility] Last Admin: 11/14/17 14:32 Dose: 60 mg Gabapentin (Neurontin -) 100 mg PO BID [facility] Last Admin: 11/14/17 09:40 Dose: 100 mg Insulin Aspart (Novolog Vial Sliding Scale -) 1 vial SQ ACHS [facility] PRN Reason: Protocol Last Admin: 11/14/17 12:28 Dose: 7 units Insulin Detemir (Levemir Vial) 25 units SQ BID@0700,2200 [facility] Last Admin: 11/14/17 06:30 Dose: 25 units Isosorbide Mononitrate (Imdur -) 30 mg PO DAILY [facility] Last Admin: 11/14/17 09:39 Dose: 30 mg Levothyroxine Sodium 125 mcg/ (Levothyroxine Sodium 50 mcg) 175 mcg PO DAILY@ 0700 [facility] Last Admin: 11/14/17 06:27 Dose: 175 mcg Lisinopril (Prinivil) 5 mg PO DAILY [facility] Last Admin: 11/14/17 09:40 Dose: 5 mg Loratadine (Claritin -) 10 mg PO DAILY [facility] Last Admin: 11/14/17 09:40 Dose: 10 mg Metoclopramide HCl (Reglan -) 5 mg PO TIDAC [facility] Last Admin: 11/14/17 12:29 Dose: 5 mg Metronidazole (Flagyl -) 250 mg PO TID [facility] Last Admin: 11/14/17 14:32 Dose: 250 mg Montelukast Sodium (Singulair -) 10 mg PO DAILY [facility] Last Admin: 11/14/17 09:40 Dose: 10 mg Pancrelipase (Creon Dr 36,000 Units Capsule) 1 cap PO TIDCM [facility] Last Admin: 11/14/17 12:29 Dose: 1 cap Pantoprazole Sodium (Protonix Iv) 40 mg IVPUSH BID [facility] Last Admin: 11/14/17 09:41 Dose: 40 mg Polyethylene Glycol (Miralax (For Daily Use) -) 34 gm PO BID [facility] Last Admin: 11/14/17 09:41 Dose: Not Given Potassium Chloride (K-Dur -) 20 meq PO DAILY [facility] Last Admin: 11/14/17 09:41 Dose: 20 meq Spironolactone (Aldactone -) 25 mg PO DAILY [facility] Last Admin: 11/14/17 09:39 Dose: 25 mg Tamsulosin HCl (Flomax -) 0.4 mg PO 0830 [facility] Last Admin: 11/14/17 09:39 Dose: 0.4 mg - Objective Vital Signs: Vital Signs Temperature 98.3 F 11/14/17 10:00 Pulse Rate 68 11/14/17 10:00 Respiratory Rate 20 11/14/17 10:00 Blood Pressure 108/67 11/14/17 10:00 O2 Sat by Pulse Oximetry (%) 95 11/14/17 10:00 Constitutional: Yes: No Distress, Calm Eyes: Yes: Conjunctiva Clear, EOM Intact HENT: Yes: Atraumatic, Normocephalic Neck: Yes: Trachea Midline Cardiovascular: Yes: Regular Rate and Rhythm Respiratory: Yes: CTA Bilaterally Gastrointestinal: Yes: Normal Bowel Sounds, Soft Musculoskeletal: Yes: WNL Extremities: Yes: WNL Edema: No Peripheral Pulses WNL: Yes Labs: CBC, BMP 11/13/17 11:25 11/13/17 11:25 Problem List - Problems (1) CHF (congestive heart failure) Assessment/Plan: Continue Lasix 60 mg IV twice a day. change to PO tomorrow 60 BID. Increase Coreg to 6.25 mg twice daily. Continue lisinopril 5 mg daily. Continue Imdur 30 mg daily. Strict fluid and salt restrictions. No need for further cardiac workup at this point. Code(s): I50.9 - HEART FAILURE, UNSPECIFIED Qualifiers: Heart failure type: systolic Heart failure chronicity: acute on chronic Qualified Code(s): I50.23 - Acute on chronic systolic (congestive) heart failure (2) Atrial fibrillation Assessment/Plan: doing well, continue Eliquis for stroke prevention. d stable and well controlled. Code(s): I48.91 - UNSPECIFIED ATRIAL FIBRILLATION Qualifiers: Atrial fibrillation type: paroxysmal Qualified Code(s): I48.0 - Paroxysmal atrial fibrillation
[2017-11-14] MEDS ORDERED: PT OWN MED DRAWER 7, Y5N ONE (18:35)
[2017-11-14] MEDS: ATORVASTATIN CA 80 MG TABLET (FP) PO SCH (21:51)
[2017-11-15] MEDS: FUROSEMIDE 40 MG/4 ML INJECTABLE VIAL IVPUSH SCH (06:20)
[2017-11-15] MEDS: INSULIN SLIDING SCALE (NOVOLOG) 1 VIAL SQ SCH ×4 (06:20→21:43)
[2017-11-15] MEDS ORDERED: LEVOTHYROXINE NA 125 MCG TABLET (FP) ONE (06:22)
[2017-11-15] MEDS ORDERED: LEVOTHYROXINE NA 50 MCG TABLET (FP) ONE (06:22)
[2017-11-15] MEDS: METOCLOPRAMIDE HCL 10 MG TABLET (FP) PO SCH ×3 (06:31→16:47)
[2017-11-15] MEDS: INSULIN DETEMIR 100 UNITS/ML MDV SQ SCH ×2 (06:32→21:43)
[2017-11-15] MEDS: LEVOTHYROXINE 125 MCG, LEVOTHYROXINE 50 MCG PO SCH (06:32)
[2017-11-15] MEDS: metroNIDAZOLE 250 MG TABLET PO SCH ×3 (06:32→21:43)
[2017-11-15] MEDS: ALBUTEROL SO4 2.5/IPRATROPIUM 0.5 INH SOL 3 ML VIAL.NEB. NEB SCH ×4 (07:42→21:27)
[2017-11-15 07:43] LABS: BASO % 0.9 % (0-2.0); EOS % 6.2 % (0-4.5); HEMATOCRIT 30.7 % (35.4-49); HEMOGLOBIN 9.8 GM/dL (11.7-16.9); LYMPH % 12.6 % (8-40); MCH 27.7 pg (25.7-33.7); MCHC 32.1 g/dl (32.0-35.9); MEAN CELL VOLUME 86.3 fl (80-96); MONO % 14.1 % (3.8-10.2); NEUT % 66.2 % (42.8-82.8); PLATELET COUNT 134 K/MM3 (134-434); RBC 3.55 M/mm3 (4.00-5.60); RDW 15.6 % (11.9-15.9)
[2017-11-15 08:13] LABS: ALBUMIN 2.8 g/dl (3.4-5.0); ALK PHOS 111 U/L (45-117); ANION GAP 8 (8-16); BILIRUBIN,TOTAL 0.6 mg/dL (0.2-1.0); BLOOD UREA NITROGEN 40 mg/dL (7-18); CALCIUM 7.6 mg/dL (8.5-10.1); CHLORIDE 97 mmol/L (98-107); CO2 29 mmol/L (21-32); CREATININE 1.5 mg/dL (0.7-1.3); GLUCOSE,RANDOM 131 mg/dL (74-106); SGOT/AST 14 U/L (15-37); SGPT/ALT 17 U/L (12-78); SODIUM 134 mmol/L (136-145); TOT PROT 6.3 g/dl (6.4-8.2)
--- NOTE | 2017-11-15 08:37 | DS ---
Physical Examination Vital Signs: Vital Signs Temperature 98.0 F 11/15/17 05:00 Pulse Rate 72 11/15/17 05:00 Respiratory Rate 18 11/15/17 05:00 Blood Pressure 92/58 11/15/17 05:00 O2 Sat by Pulse Oximetry (%) 98 11/14/17 21:00 Labs: CBC, BMP 11/15/17 06:30 11/15/17 06:30 Discharge Summary Reason For Visit: SOB; CORONARY ARTERY DISEASE; CHF; CHEST PAIN Current Active Problems CAD (coronary artery disease) (Acute) CHF (congestive heart failure) (Acute) Chest pain (Acute) IBS (irritable bowel syndrome) (Acute) Obesity (BMI 30-39.9) (Acute) Shortness of breath (Acute) Condition: Stable - Instructions Referrals: Rodriguez Rowan MD [Primary Care Provider] - 1 Week - Home Medications Comprehensive Discharge Medication List: Ambulatory Orders Alprazolam [Xanax] 0.25 mg PO BID 09/25/17 Amoxicillin - [Amoxicillin 500mg Capsule -] 500 mg PO BID 09/25/17 Atorvastatin Ca [Lipitor] 80 mg PO HS 09/25/17 Cetirizine HCl 10 mg PO DAILY 09/25/17 Docusate Sodium 300 mg PO DAILY 09/25/17 Duloxetine HCl [Cymbalta -] 60 mg PO DAILY 09/25/17 Folic Acid 1 mg PO DAILY 09/25/17 Gabapentin [Neurontin -] 100 mg PO BID 09/25/17 Insulin Sliding Scale [Novolog Vial Sliding Scale -] 0 units SQ TIDAC 09/25/17 Levothyroxine [Synthroid -] 175 mcg PO DAILY 09/25/17 Montelukast Sodium [Singulair] 10 mg PO DAILY 09/25/17 Polyethylene Glycol 3350 [Miralax 119 gm Btl -] 17 gm PO DAILY 09/25/17 Potassium Chloride [K-Dur -] 20 meq PO DAILY 09/25/17 Spironolactone 25 mg PO DAILY 09/25/17 Tamsulosin HCl [Flomax -] 0.4 mg PO DAILY 09/25/17 Apixaban [Eliquis -] 5 mg PO BID #6 tablet 09/28/17 Clotrimazole/Betamet Diprop [Lotrisone -] 1 applic TP BID #60 grams 09/28/17 Furosemide [Lasix -] 60 mg PO BID tablet 11/15/17 Lipase/Protease/Amylase [Surendra Hayes 36,000 Units Capsule] 1 cap PO TIDCM #90 capsule. 11/15/17 Lisinopril [Prinivil] 5 mg PO DAILY #30 tablet 11/15/17 Metoclopramide HCl [Reglan -] 5 mg PO TIDAC #90 tablet 11/15/17 Pantoprazole Sodium [Protonix -] 40 mg PO BID #60 tablet.ec 11/15/17 metroNIDAZOLE [Flagyl -] 250 mg PO TID #15 tablet 11/15/17
[2017-11-15] MEDS: ISOSORBIDE MONONITRATE 30 MG TAB.SR.24H (FP) PO SCH (09:25)
[2017-11-15] MEDS ORDERED: PT OWN MED DRAWER 7, Y5N ONE ×3 (09:30→21:35)
[2017-11-15] MEDS: TAMSULOSIN HCL 0.4 MG CAP.ER.24H (FP) PO SCH (09:50)
[2017-11-15] MEDS: DULoxetine HCL 30 MG CAPSULE.DR (FP) PO SCH (09:50)
[2017-11-15] MEDS: LIPASE/PROTEASE/AMYLASE 36,000 UNIT CAPSULE PO SCH ×3 (09:50→16:48)
[2017-11-15] MEDS: POTASSIUM CHLORIDE TABS 20 MEQ TABLET.ER (FP) PO SCH (09:51)
[2017-11-15] MEDS: FOLIC ACID 1 MG TABLET (FP) PO SCH (09:52)
[2017-11-15] MEDS: SPIRONOLACTONE 25 MG TABLET (FP) PO SCH (09:52)
[2017-11-15] MEDS: GABAPENTIN 100 MG CAPSULE (FP) PO SCH ×2 (09:52→21:43)
[2017-11-15] MEDS: CARVEDILOL 3.125 MG TABLET (FP) PO SCH ×2 (09:52→21:42)
[2017-11-15] MEDS: MONTELUKAST NA 10 MG TABLET PO SCH (09:52)
[2017-11-15] MEDS: PANTOPRAZOLE 40 MG TABLET (FP) PO SCH ×2 (09:53→21:43)
[2017-11-15] MEDS: LISINOPRIL 5 MG TABLET (FP) PO SCH (09:53)
[2017-11-15] MEDS: LORATADINE 10 MG TABLET PO SCH (09:53)
[2017-11-15] MEDS: DOCUSATE SODIUM 100 MG CAPSULE (FP) PO SCH (09:53)
[2017-11-15] MEDS: AMOXICILLIN 500 MG CAPSULE (FP) PO SCH ×2 (09:53→21:43)
[2017-11-15] MEDS: APIXABAN 5 MG TABLET PO SCH ×2 (09:55→21:42)
[2017-11-15] MEDS: FUROSEMIDE 20 MG TABLET (FP) PO SCH ×3 (09:57→14:47)
[2017-11-15] MEDS: POLYETHYLENE GLYCOL 3350 119 GM BTL PO SCH ×2 (09:57→21:44)
[2017-11-15] MEDS: CLOTRIMAZOLE/BETAMET DIPROP 15 GM TUBE TP SCH ×2 (09:57→21:44)
[2017-11-15] MEDS: ALPRAZolam 0.25 MG TABLET PO SCH ×2 (10:49→21:44)
[2017-11-15] MEDS ORDERED: INSULIN (NOVOLOG) ASPART 100 UNITS/ML 10ML VIAL ONE ×2 (11:51→21:34)
[2017-11-15] MEDS: ACETAMINOPHEN 325 MG TABLET (FP) PO PRN ×2 (11:56→21:47)
--- NOTE | 2017-11-15 15:12 | PN ---
Progress Note, Physician Chief Complaint: No SOB tele neg History of Present Illness: 82-year-old man, with multiple medical problems, now readmitted with recurrent chest pains and shortness of breath. Acute on chronic systolic heart failure. There is no evidence of ischemia nor acute coronary syndrome. No further angina. no sob lying flat now. - Current Medication List Current Medications: Active Medications Acetaminophen (Tylenol -) 650 mg PO Q6H PRN PRN Reason: PAIN LEVEL 1 - 3 Last Admin: 11/15/17 11:56 Dose: 650 mg Albuterol/Ipratropium (Duoneb -) 1 amp NEB RQID [facility] Last Admin: 11/15/17 11:12 Dose: 1 amp Alprazolam (Xanax -) 0.25 mg PO BID [facility] Last Admin: 11/15/17 10:49 Dose: Not Given Amoxicillin (Amoxicillin -) 500 mg PO BID [facility] Last Admin: 11/15/17 09:53 Dose: 500 mg Apixaban (Eliquis -) 5 mg PO BID [facility] Last Admin: 11/15/17 09:55 Dose: 5 mg Atorvastatin Calcium (Lipitor -) 80 mg PO HS [facility] Last Admin: 11/14/17 21:51 Dose: 80 mg Carvedilol (Coreg -) 6.25 mg PO BID [facility] Last Admin: 11/15/17 09:52 Dose: Not Given Clotrimazole (Lotrisone Cream (Small Tube)) 1 applic TP BID [facility] Last Admin: 11/15/17 09:57 Dose: 1 applic Docusate Sodium (Colace -) 100 mg PO DAILY [facility] Last Admin: 11/15/17 09:53 Dose: 100 mg Duloxetine HCl (Cymbalta -) 60 mg PO DAILY [facility] Last Admin: 11/15/17 09:50 Dose: 60 mg Folic Acid (Folic Acid -) 1 mg PO DAILY [facility] Last Admin: 11/15/17 09:52 Dose: 1 mg Furosemide (Lasix -) 60 mg PO BIDLASIX [facility] Last Admin: 11/15/17 09:57 Dose: Not Given Gabapentin (Neurontin -) 100 mg PO BID [facility] Last Admin: 11/15/17 09:52 Dose: 100 mg Insulin Aspart (Novolog Vial Sliding Scale -) 1 vial SQ ACHS [facility] PRN Reason: Protocol Last Admin: 11/15/17 11:58 Dose: 2 units Insulin Detemir (Levemir Vial) 25 units SQ BID@0700,2200 [facility] Last Admin: 11/15/17 06:32 Dose: 25 units Isosorbide Mononitrate (Imdur -) 30 mg PO DAILY [facility] Last Admin: 11/15/17 09:25 Dose: 30 mg Levothyroxine Sodium 125 mcg/ (Levothyroxine Sodium 50 mcg) 175 mcg PO DAILY@ 0700 [facility] Last Admin: 11/15/17 06:32 Dose: 175 mcg Lisinopril (Prinivil) 5 mg PO DAILY [facility] Last Admin: 11/15/17 09:53 Dose: 5 mg Loratadine (Claritin -) 10 mg PO DAILY [facility] Last Admin: 11/15/17 09:53 Dose: 10 mg Metoclopramide HCl (Reglan -) 5 mg PO TIDAC [facility] Last Admin: 11/15/17 11:57 Dose: 5 mg Metronidazole (Flagyl -) 250 mg PO TID [facility] Last Admin: 11/15/17 14:46 Dose: 250 mg Montelukast Sodium (Singulair -) 10 mg PO DAILY [facility] Last Admin: 11/15/17 09:52 Dose: 10 mg Pancrelipase (Creon Dr 36,000 Units Capsule) 1 cap PO TIDCM [facility] Last Admin: 11/15/17 12:01 Dose: 1 cap Pantoprazole Sodium (Protonix -) 40 mg PO BID [facility] Last Admin: 11/15/17 09:53 Dose: 40 mg Polyethylene Glycol (Miralax (For Daily Use) -) 34 gm PO BID [facility] Last Admin: 11/15/17 09:57 Dose: Not Given Potassium Chloride (K-Dur -) 20 meq PO DAILY [facility] Last Admin: 11/15/17 09:51 Dose: 20 meq Spironolactone (Aldactone -) 25 mg PO DAILY [facility] Last Admin: 11/15/17 09:52 Dose: 25 mg Tamsulosin HCl (Flomax -) 0.4 mg PO 0830 [facility] Last Admin: 11/15/17 09:50 Dose: 0.4 mg - Objective Vital Signs: Vital Signs Temperature 98.2 F 11/15/17 10:00 Pulse Rate 78 11/15/17 10:00 Respiratory Rate 18 11/15/17 10:00 Blood Pressure 103/48 11/15/17 10:00 O2 Sat by Pulse Oximetry (%) 98 11/15/17 10:00 Constitutional: Yes: No Distress, Calm Eyes: Yes: Conjunctiva Clear, EOM Intact HENT: Yes: Normocephalic Neck: Yes: Trachea Midline Cardiovascular: Yes: Regular Rate and Rhythm Respiratory: Yes: CTA Bilaterally Gastrointestinal: Yes: Normal Bowel Sounds, Soft, Abdomen, Obese Edema: No Peripheral Pulses WNL: Yes Labs: CBC, BMP 11/15/17 06:30 11/15/17 06:30 Problem List - Problems (1) CHF (congestive heart failure) Assessment/Plan: Continue Lasix 60 mg PO twice a day. Increase Coreg to 6.25 mg twice daily. Continue lisinopril 5 mg daily. Continue Imdur 30 mg daily. Strict fluid and salt restrictions. No need for further cardiac workup at this point. will follow as outpatient Code(s): I50.9 - HEART FAILURE, UNSPECIFIED Qualifiers: Heart failure type: systolic Heart failure chronicity: acute on chronic Qualified Code(s): I50.23 - Acute on chronic systolic (congestive) heart failure (2) Atrial fibrillation Assessment/Plan: doing well, continue Eliquis for stroke prevention. d stable and well controlled. Code(s): I48.91 - UNSPECIFIED ATRIAL FIBRILLATION Qualifiers: Atrial fibrillation type: paroxysmal Qualified Code(s): I48.0 - Paroxysmal atrial fibrillation
[2017-11-15] MEDS: ATORVASTATIN CA 80 MG TABLET (FP) PO SCH (21:43)
[2017-11-16] MEDS ORDERED: LEVOTHYROXINE NA 50 MCG TABLET (FP) ONE (05:58)
[2017-11-16] MEDS ORDERED: LEVOTHYROXINE NA 125 MCG TABLET (FP) ONE (05:58)
[2017-11-16] MEDS: FUROSEMIDE 20 MG TABLET (FP) PO SCH ×2 (06:01→13:22)
[2017-11-16] MEDS: METOCLOPRAMIDE HCL 10 MG TABLET (FP) PO SCH ×3 (06:01→16:41)
[2017-11-16] MEDS: metroNIDAZOLE 250 MG TABLET PO SCH ×3 (06:01→21:30)
[2017-11-16] MEDS: LEVOTHYROXINE 125 MCG, LEVOTHYROXINE 50 MCG PO SCH (06:01)
[2017-11-16] MEDS: ACETAMINOPHEN 325 MG TABLET (FP) PO PRN ×3 (06:02→21:30)
[2017-11-16] MEDS: INSULIN DETEMIR 100 UNITS/ML MDV SQ SCH ×2 (06:06→21:38)
[2017-11-16] MEDS: INSULIN SLIDING SCALE (NOVOLOG) 1 VIAL SQ SCH ×4 (06:06→21:38)
[2017-11-16] MEDS ORDERED: INSULIN (NOVOLOG) ASPART 100 UNITS/ML 10ML VIAL ONE ×3 (06:18→21:27)
[2017-11-16] MEDS: ALBUTEROL SO4 2.5/IPRATROPIUM 0.5 INH SOL 3 ML VIAL.NEB. NEB SCH (07:38)
[2017-11-16] MEDS: LIPASE/PROTEASE/AMYLASE 36,000 UNIT CAPSULE PO SCH ×3 (09:00→16:41)
[2017-11-16] MEDS: AMOXICILLIN 500 MG CAPSULE (FP) PO SCH ×2 (09:00→21:30)
[2017-11-16] MEDS: DULoxetine HCL 30 MG CAPSULE.DR (FP) PO SCH (09:00)
[2017-11-16] MEDS: GABAPENTIN 100 MG CAPSULE (FP) PO SCH ×2 (09:03→21:30)
[2017-11-16] MEDS: PANTOPRAZOLE 40 MG TABLET (FP) PO SCH ×2 (09:03→21:30)
[2017-11-16] MEDS: TAMSULOSIN HCL 0.4 MG CAP.ER.24H (FP) PO SCH (09:03)
[2017-11-16] MEDS: FOLIC ACID 1 MG TABLET (FP) PO SCH (09:03)
[2017-11-16] MEDS: POTASSIUM CHLORIDE TABS 20 MEQ TABLET.ER (FP) PO SCH (09:03)
[2017-11-16] MEDS: MONTELUKAST NA 10 MG TABLET PO SCH (09:03)
[2017-11-16] MEDS: ISOSORBIDE MONONITRATE 30 MG TAB.SR.24H (FP) PO SCH (09:03)
[2017-11-16] MEDS: LISINOPRIL 5 MG TABLET (FP) PO SCH (09:03)
[2017-11-16] MEDS: CARVEDILOL 3.125 MG TABLET (FP) PO SCH ×2 (09:03→21:31)
[2017-11-16] MEDS: SPIRONOLACTONE 25 MG TABLET (FP) PO SCH (09:03)
[2017-11-16] MEDS: CLOTRIMAZOLE/BETAMET DIPROP 15 GM TUBE TP SCH ×2 (09:04→21:40)
[2017-11-16] MEDS: LORATADINE 10 MG TABLET PO SCH (09:04)
[2017-11-16] MEDS: DOCUSATE SODIUM 100 MG CAPSULE (FP) PO SCH (09:04)
[2017-11-16] MEDS: POLYETHYLENE GLYCOL 3350 119 GM BTL PO SCH ×2 (09:05→21:41)
[2017-11-16] MEDS: ALPRAZolam 0.25 MG TABLET PO SCH ×2 (09:05→23:23)
[2017-11-16] MEDS: APIXABAN 5 MG TABLET PO SCH ×2 (09:07→21:30)
--- NOTE | 2017-11-16 09:43 | EKG ---
Test Reason : Blood Pressure : / mmHG Vent. Rate : 067 BPM Atrial Rate : 067 BPM P-R Int : 000 ms QRS Dur : 182 ms QT Int : 526 ms P-R-T Axes : 000 -71 093 degrees QTc Int : 555 ms Ventricular-paced rhythm ABNORMAL ECG WHEN COMPARED WITH ECG OF 10-NOV-2017 09:34, PREMATURE VENTRICULAR COMPLEXES ARE NO LONGER PRESENT VENT. RATE HAS DECREASED BY 13 BPM Confirmed by MADI RUTH MD ([id number]) on 11/16/2017 9:42:45 AM Referred By: ERICA CUNNINGHAM DR Confirmed By:MADI RUTH MD
--- NOTE | 2017-11-16 14:41 | PN ---
Progress Note, Physician Chief Complaint: [patient was supposed to go home but having frequent loose BM has had about three since morning still having some abdominal discomfort breathing improved no Chest pain - Current Medication List Current Medications: Active Medications Acetaminophen (Tylenol -) 650 mg PO Q6H PRN PRN Reason: PAIN LEVEL 1 - 3 Last Admin: 11/16/17 13:59 Dose: 650 mg Alprazolam (Xanax -) 0.25 mg PO BID [facility] Last Admin: 11/16/17 09:05 Dose: Not Given Amoxicillin (Amoxicillin -) 500 mg PO BID [facility] Last Admin: 11/16/17 09:00 Dose: 500 mg Apixaban (Eliquis -) 5 mg PO BID [facility] Last Admin: 11/16/17 09:07 Dose: 5 mg Atorvastatin Calcium (Lipitor -) 80 mg PO HS [facility] Last Admin: 11/15/17 21:43 Dose: 80 mg Carvedilol (Coreg -) 6.25 mg PO BID [facility] Last Admin: 11/16/17 09:03 Dose: 6.25 mg Clotrimazole (Lotrisone Cream (Small Tube)) 1 applic TP BID [facility] Last Admin: 11/16/17 09:04 Dose: 1 applic Docusate Sodium (Colace -) 100 mg PO DAILY [facility] Last Admin: 11/16/17 09:04 Dose: Not Given Duloxetine HCl (Cymbalta -) 60 mg PO DAILY [facility] Last Admin: 11/16/17 09:00 Dose: 60 mg Folic Acid (Folic Acid -) 1 mg PO DAILY [facility] Last Admin: 11/16/17 09:03 Dose: 1 mg Furosemide (Lasix -) 60 mg PO BIDLASIX [facility] Last Admin: 11/16/17 13:22 Dose: 60 mg Gabapentin (Neurontin -) 100 mg PO BID [facility] Last Admin: 11/16/17 09:03 Dose: 100 mg Insulin Aspart (Novolog Vial Sliding Scale -) 1 vial SQ ACHS [facility] PRN Reason: Protocol Last Admin: 11/16/17 11:49 Dose: 5 units Insulin Detemir (Levemir Vial) 25 units SQ BID@0700,2200 [facility] Last Admin: 11/16/17 06:06 Dose: 25 units Isosorbide Mononitrate (Imdur -) 30 mg PO DAILY [facility] Last Admin: 11/16/17 09:03 Dose: 30 mg Levothyroxine Sodium 125 mcg/ (Levothyroxine Sodium 50 mcg) 175 mcg PO DAILY@ 0700 [facility] Last Admin: 11/16/17 06:01 Dose: 175 mcg Lisinopril (Prinivil) 5 mg PO DAILY [facility] Last Admin: 11/16/17 09:03 Dose: 5 mg Loratadine (Claritin -) 10 mg PO DAILY [facility] Last Admin: 11/16/17 09:04 Dose: 10 mg Metoclopramide HCl (Reglan -) 5 mg PO TIDAC [facility] Last Admin: 11/16/17 11:49 Dose: 5 mg Metronidazole (Flagyl -) 250 mg PO TID [facility] Last Admin: 11/16/17 13:22 Dose: 250 mg Montelukast Sodium (Singulair -) 10 mg PO DAILY [facility] Last Admin: 11/16/17 09:03 Dose: 10 mg Pancrelipase (Creon Dr 36,000 Units Capsule) 1 cap PO TIDCM [facility] Last Admin: 11/16/17 11:49 Dose: 1 cap Pantoprazole Sodium (Protonix -) 40 mg PO BID [facility] Last Admin: 11/16/17 09:03 Dose: 40 mg Polyethylene Glycol (Miralax (For Daily Use) -) 34 gm PO BID [facility] Last Admin: 11/16/17 09:05 Dose: Not Given Potassium Chloride (K-Dur -) 20 meq PO DAILY [facility] Last Admin: 11/16/17 09:03 Dose: 20 meq Spironolactone (Aldactone -) 25 mg PO DAILY [facility] Last Admin: 11/16/17 09:03 Dose: 25 mg Tamsulosin HCl (Flomax -) 0.4 mg PO 0830 [facility] Last Admin: 11/16/17 09:03 Dose: 0.4 mg - Objective Vital Signs: Vital Signs Temperature 97.7 F 11/16/17 14:33 Pulse Rate 74 11/16/17 14:33 Respiratory Rate 18 11/16/17 14:33 Blood Pressure 105/65 11/16/17 14:33 O2 Sat by Pulse Oximetry (%) 94 L 11/16/17 08:54 Constitutional: Yes: Calm Cardiovascular: Yes: Regular Rate and Rhythm, S1, S2 Respiratory: Yes: CTA Bilaterally, Diminished (at bases) Gastrointestinal: Yes: Normal Bowel Sounds, Soft, Distention Edema: Yes Neurological: Yes: Alert, Oriented Labs: CBC, BMP 11/15/17 06:30 11/15/17 06:30 Problem List - Problems (1) CHF (congestive heart failure) Assessment/Plan: improved lasix coreg lisinopril and imdur aldactone Code(s): I50.9 - HEART FAILURE, UNSPECIFIED Qualifiers: Heart failure type: systolic Heart failure chronicity: acute on chronic Qualified Code(s): I50.23 - Acute on chronic systolic (congestive) heart failure (2) Constipation Assessment/Plan: got miralax and citroma Code(s): K59.00 - CONSTIPATION, UNSPECIFIED (3) IBS (irritable bowel syndrome) Assessment/Plan: 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
[2017-11-16] MEDS ORDERED: PT OWN MED DRAWER 7, Y5N ONE ×2 (16:43→21:28)
[2017-11-16] MEDS: ATORVASTATIN CA 80 MG TABLET (FP) PO SCH (21:30)
[2017-11-17] MEDS ORDERED: MAG HYDROX/AL HYDROX/SIMETH 30 ML UNIT-DOSE CUP PO ONE ×2 (02:09→02:30)
[2017-11-17] MEDS ORDERED: LEVOTHYROXINE NA 50 MCG TABLET (FP) ONE (06:11)
[2017-11-17] MEDS ORDERED: LEVOTHYROXINE NA 125 MCG TABLET (FP) ONE (06:12)
[2017-11-17] MEDS: LEVOTHYROXINE 125 MCG, LEVOTHYROXINE 50 MCG PO SCH (06:15)
[2017-11-17] MEDS: METOCLOPRAMIDE HCL 10 MG TABLET (FP) PO SCH ×4 (06:15→16:45)
[2017-11-17] MEDS: FUROSEMIDE 20 MG TABLET (FP) PO SCH ×2 (06:15→13:54)
[2017-11-17] MEDS: INSULIN DETEMIR 100 UNITS/ML MDV SQ SCH ×2 (06:18→21:46)
[2017-11-17] MEDS: metroNIDAZOLE 250 MG TABLET PO SCH ×3 (06:19→21:44)
[2017-11-17] MEDS: INSULIN SLIDING SCALE (NOVOLOG) 1 VIAL SQ SCH ×4 (06:19→21:46)
[2017-11-17] MEDS ORDERED: INSULIN (NOVOLOG) ASPART 100 UNITS/ML 10ML VIAL ONE (06:56)
[2017-11-17] MEDS: LIPASE/PROTEASE/AMYLASE 36,000 UNIT CAPSULE PO SCH ×3 (08:02→16:45)
[2017-11-17] MEDS: PANTOPRAZOLE 40 MG TABLET (FP) PO SCH ×2 (09:44→21:44)
[2017-11-17] MEDS: DULoxetine HCL 30 MG CAPSULE.DR (FP) PO SCH (09:44)
[2017-11-17] MEDS: POTASSIUM CHLORIDE TABS 20 MEQ TABLET.ER (FP) PO SCH (09:44)
[2017-11-17] MEDS: TAMSULOSIN HCL 0.4 MG CAP.ER.24H (FP) PO SCH (09:45)
[2017-11-17] MEDS: CARVEDILOL 3.125 MG TABLET (FP) PO SCH ×2 (09:45→21:45)
[2017-11-17] MEDS: ISOSORBIDE MONONITRATE 30 MG TAB.SR.24H (FP) PO SCH (09:47)
[2017-11-17] MEDS: GABAPENTIN 100 MG CAPSULE (FP) PO SCH ×2 (09:47→21:44)
[2017-11-17] MEDS: SPIRONOLACTONE 25 MG TABLET (FP) PO SCH (09:47)
[2017-11-17] MEDS: APIXABAN 5 MG TABLET PO SCH ×2 (09:48→21:44)
[2017-11-17] MEDS: LORATADINE 10 MG TABLET PO SCH (09:48)
[2017-11-17] MEDS: DOCUSATE SODIUM 100 MG CAPSULE (FP) PO SCH (09:48)
[2017-11-17] MEDS: FOLIC ACID 1 MG TABLET (FP) PO SCH (09:48)
[2017-11-17] MEDS: MONTELUKAST NA 10 MG TABLET PO SCH (09:49)
[2017-11-17] MEDS: ALPRAZolam 0.25 MG TABLET PO SCH ×2 (09:49→21:45)
[2017-11-17] MEDS: POLYETHYLENE GLYCOL 3350 119 GM BTL PO SCH ×2 (09:49→21:47)
[2017-11-17] MEDS: LISINOPRIL 5 MG TABLET (FP) PO SCH (09:49)
[2017-11-17] MEDS ORDERED: PT OWN MED DRAWER 7, Y5N ONE ×3 (09:59→21:59)
[2017-11-17] MEDS: AMOXICILLIN 500 MG CAPSULE (FP) PO SCH ×2 (10:02→21:46)
[2017-11-17] MEDS: CLOTRIMAZOLE/BETAMET DIPROP 15 GM TUBE TP SCH ×2 (10:02→22:01)
[2017-11-17] MEDS: ACETAMINOPHEN 325 MG TABLET (FP) PO PRN ×2 (11:41→21:44)
--- NOTE | 2017-11-17 11:54 | PN ---
Progress Note (short form) - Note Progress Note: patient was supposed to be d/c today however the patient had 4 episodes of diarrhea this morning will hold the discharge for today. patient is also complaining of left hand cramping and cold his motor strength in both arms are symmetrical with 4/5 strength he has no numbness or tingling no acute neurological change, no chest pain plan: patient is still having episodes of diarrhea will send stool c dif place patient on contact isolation repeat electrolytes and magnesium will consider starting the patient on empiric treatment with metronidazole if the patient has elevated WBC or spikes a fever will continue management him for his chronic diseases will reevaluate the patient tomorrow Problem List - Problems (1) CAD (coronary artery disease) Assessment/Plan: stable Code(s): I25.10 - ATHSCL HEART DISEASE OF [place] CORONARY ARTERY W/O ANG PCTRS Qualifiers: Coronary Disease-Associated Artery/Lesion type: unspecified vessel or lesion type [place] vs. transplanted heart: [place] heart Associated angina: angina presence unspecified Qualified Code(s): I25.10 - Atherosclerotic heart disease of [place] coronary artery without angina pectoris (2) CHF (congestive heart failure) Assessment/Plan: patient is stable no acute exacerbation will c/w same medical management Code(s): I50.9 - HEART FAILURE, UNSPECIFIED Qualifiers: Heart failure type: systolic Heart failure chronicity: acute on chronic Qualified Code(s): I50.23 - Acute on chronic systolic (congestive) heart failure (3) Obesity (BMI 30-39.9) Assessment/Plan: recommended weight loss Code(s): E66.9 - OBESITY, UNSPECIFIED (4) Atrial fibrillation Assessment/Plan: on apixaban and rate control medication Code(s): I48.91 - UNSPECIFIED ATRIAL FIBRILLATION Qualifiers: Atrial fibrillation type: paroxysmal Qualified Code(s): I48.0 - Paroxysmal atrial fibrillation (5) COPD (chronic obstructive pulmonary disease) Assessment/Plan: not in acute exacerbation will continue same medical therapy from home Code(s): J44.9 - CHRONIC OBSTRUCTIVE PULMONARY DISEASE, UNSPECIFIED (6) Diabetes mellitus, insulin dependent (IDDM), uncontrolled Assessment/Plan: patient on insulin sliding scale Code(s): E10.65 - TYPE 1 DIABETES MELLITUS WITH HYPERGLYCEMIA Qualifiers: Visit type - Emergency Visit Emergency Visit: No - New Patient This patient is new to me today: Yes Date on this admission: 11/17/17 - Critical Care Critical Care patient: No - Discharge Referral Referred to [facility] Med P.C.: No
[2017-11-17 12:38] LABS: ALBUMIN 3.1 g/dl (3.4-5.0); ALK PHOS 127 U/L (45-117); ANION GAP 10 (8-16); BILIRUBIN,TOTAL 0.4 mg/dL (0.2-1.0); BLOOD UREA NITROGEN 34 mg/dL (7-18); CALCIUM 8.5 mg/dL (8.5-10.1); CHLORIDE 96 mmol/L (98-107); CO2 26 mmol/L (21-32); CREATININE 1.2 mg/dL (0.7-1.3); GLUCOSE,RANDOM 246 mg/dL (74-106); MAGNESIUM 1.9 mg/dL (1.8-2.4); POTASSIUM 4.6 mmol/L (3.5-5.1); SGOT/AST 22 U/L (15-37); SGPT/ALT 28 U/L (12-78); SODIUM 132 mmol/L (136-145)
[2017-11-17] MEDS: SODIUM CHLORIDE 1,000 ML IV SCH (16:45)
[2017-11-17] MEDS: ATORVASTATIN CA 80 MG TABLET (FP) PO SCH (22:01)
[2017-11-18] MEDS ORDERED: oxyCODONE HCL 5 MG TABLET PO ONE (04:41)
--- NOTE | 2017-11-18 04:49 | HOSP ---
Subjective - Review of Symptoms Subjective: Asked to see pt for ruq pain Pt reports non-radiating ruq pain since getting to hospital. reports pain 7/10 "squeezing" no aggravating or alleviating factors, not associated w food. His nurse gave him Tylenol w no effect. No recent back trauma, no sob, or cp. No vomiting. Pex Gen- alert, in nad, obese Hent- at/nc, leonides, trachea midline Resp- no cough, no cyanosis, lungs ctab Cards- rrr, no jvd, s1s s2 heard Gi- obese, ruq ttp, no guarding, no rebound, +bs a/p 1. ruq pain- check cmp, lipase, abd US. Give 1 dose of Roxicodone. Physical Examination Vital Signs: Vital Signs Temperature 98.1 F 11/17/17 22:00 Pulse Rate 84 11/17/17 22:00 Respiratory Rate 18 11/17/17 22:00 Blood Pressure 127/70 11/17/17 22:00 O2 Sat by Pulse Oximetry (%) 100 11/17/17 21:00 Labs: CBC, BMP 11/15/17 06:30 11/17/17 12:05
[2017-11-18] MEDS: FUROSEMIDE 20 MG TABLET (FP) PO SCH ×2 (05:33→13:18)
[2017-11-18] MEDS: metroNIDAZOLE 250 MG TABLET PO SCH ×3 (05:34→21:18)
[2017-11-18] MEDS: INSULIN SLIDING SCALE (NOVOLOG) 1 VIAL SQ SCH ×4 (06:03→21:22)
[2017-11-18] MEDS ORDERED: LEVOTHYROXINE NA 50 MCG TABLET (FP) ONE (06:10)
[2017-11-18] MEDS ORDERED: LEVOTHYROXINE NA 125 MCG TABLET (FP) ONE (06:10)
[2017-11-18] MEDS: METOCLOPRAMIDE HCL 10 MG TABLET (FP) PO SCH ×3 (06:30→16:14)
[2017-11-18] MEDS: LEVOTHYROXINE 125 MCG, LEVOTHYROXINE 50 MCG PO SCH (06:30)
[2017-11-18] MEDS: INSULIN DETEMIR 100 UNITS/ML MDV SQ SCH ×2 (06:32→21:22)
[2017-11-18 07:05] LABS: ANION GAP 11 (8-16); BLOOD UREA NITROGEN 29 mg/dL (7-18); CALCIUM 8.3 mg/dL (8.5-10.1); CHLORIDE 99 mmol/L (98-107); CO2 26 mmol/L (21-32); CREATININE 1.2 mg/dL (0.7-1.3); GLUCOSE,RANDOM 168 mg/dL (74-106); POTASSIUM 4.4 mmol/L (3.5-5.1); SODIUM 136 mmol/L (136-145)
[2017-11-18] MEDS ORDERED: PT OWN MED DRAWER 7, Y5N ONE ×9 (08:04→17:06)
[2017-11-18 09:12] LABS: ALBUMIN 2.9 g/dl (3.4-5.0); ALK PHOS 110 U/L (45-117); BILIRUBIN,TOTAL 0.4 mg/dL (0.2-1.0); LIPASE 108 U/L (73-393); SGOT/AST 25 U/L (15-37); SGPT/ALT 29 U/L (12-78); TOT PROT 6.8 g/dl (6.4-8.2)
[2017-11-18] MEDS: CARVEDILOL 3.125 MG TABLET (FP) PO SCH ×2 (09:21→22:54)
[2017-11-18] MEDS: AMOXICILLIN 500 MG CAPSULE (FP) PO SCH ×2 (09:21→21:18)
[2017-11-18] MEDS: POTASSIUM CHLORIDE TABS 20 MEQ TABLET.ER (FP) PO SCH (09:22)
[2017-11-18] MEDS: ISOSORBIDE MONONITRATE 30 MG TAB.SR.24H (FP) PO SCH (09:22)
[2017-11-18] MEDS: SPIRONOLACTONE 25 MG TABLET (FP) PO SCH (09:22)
[2017-11-18] MEDS: APIXABAN 5 MG TABLET PO SCH ×2 (09:22→21:18)
[2017-11-18] MEDS: GABAPENTIN 100 MG CAPSULE (FP) PO SCH ×2 (09:22→21:18)
[2017-11-18] MEDS: MONTELUKAST NA 10 MG TABLET PO SCH (09:22)
[2017-11-18] MEDS: LISINOPRIL 5 MG TABLET (FP) PO SCH (09:22)
[2017-11-18] MEDS: DOCUSATE SODIUM 100 MG CAPSULE (FP) PO SCH (09:22)
[2017-11-18] MEDS: LORATADINE 10 MG TABLET PO SCH (09:22)
[2017-11-18] MEDS: PANTOPRAZOLE 40 MG TABLET (FP) PO SCH ×2 (09:22→21:19)
[2017-11-18] MEDS: FOLIC ACID 1 MG TABLET (FP) PO SCH (09:22)
[2017-11-18] MEDS: DULoxetine HCL 30 MG CAPSULE.DR (FP) PO SCH (09:22)
[2017-11-18] MEDS: TAMSULOSIN HCL 0.4 MG CAP.ER.24H (FP) PO SCH (09:24)
[2017-11-18] MEDS: ALPRAZolam 0.25 MG TABLET PO SCH ×2 (09:32→21:18)
[2017-11-18] MEDS: POLYETHYLENE GLYCOL 3350 119 GM BTL PO SCH ×2 (09:32→21:19)
[2017-11-18] MEDS: LIPASE/PROTEASE/AMYLASE 36,000 UNIT CAPSULE PO SCH ×3 (10:35→17:17)
[2017-11-18] MEDS ORDERED: INSULIN (NOVOLOG) ASPART 100 UNITS/ML 10ML VIAL ONE ×2 (11:06→20:47)
--- NOTE | 2017-11-18 11:36 | PN ---
Progress Note (short form) - Note Progress Note: patient is not having any diarrhea today, he is complaining of abdominal cramping left hand cramping and cold resolved his motor strength in both arms are symmetrical with 4/5 strength he has no numbness or tingling no acute neurological change, no chest pain plan: patient is still having episodes of diarrhea will send stool c dif place patient on contact isolation will consider starting the patient on empiric treatment with metronidazole if the patient has elevated WBC or spikes a fever will continue management him for his chronic diseases will reevaluate the patient tomorrow for possible d/c Problem List - Problems (1) CAD (coronary artery disease) Assessment/Plan: stable Code(s): I25.10 - ATHSCL HEART DISEASE OF [place] CORONARY ARTERY W/O ANG PCTRS Qualifiers: Coronary Disease-Associated Artery/Lesion type: unspecified vessel or lesion type [place] vs. transplanted heart: [place] heart Associated angina: angina presence unspecified Qualified Code(s): I25.10 - Atherosclerotic heart disease of [place] coronary artery without angina pectoris (2) CHF (congestive heart failure) Assessment/Plan: patient is stable no acute exacerbation will c/w same medical management Code(s): I50.9 - HEART FAILURE, UNSPECIFIED Qualifiers: Heart failure type: systolic Heart failure chronicity: acute on chronic Qualified Code(s): I50.23 - Acute on chronic systolic (congestive) heart failure (3) Obesity (BMI 30-39.9) Assessment/Plan: recommended weight loss Code(s): E66.9 - OBESITY, UNSPECIFIED (4) Atrial fibrillation Assessment/Plan: on apixaban and rate control medication Code(s): I48.91 - UNSPECIFIED ATRIAL FIBRILLATION Qualifiers: Atrial fibrillation type: paroxysmal Qualified Code(s): I48.0 - Paroxysmal atrial fibrillation (5) COPD (chronic obstructive pulmonary disease) Code(s): J44.9 - CHRONIC OBSTRUCTIVE PULMONARY DISEASE, UNSPECIFIED (6) Diabetes mellitus, insulin dependent (IDDM), uncontrolled Code(s): E10.65 - TYPE 1 DIABETES MELLITUS WITH HYPERGLYCEMIA Qualifiers: Visit type - Emergency Visit Emergency Visit: No - New Patient This patient is new to me today: No - Critical Care Critical Care patient: No - Discharge Referral Referred to [facility] Med P.C.: No
[2017-11-18] MEDS: ACETAMINOPHEN 325 MG TABLET (FP) PO PRN ×3 (12:17→22:34)
[2017-11-18] MEDS: SODIUM CHLORIDE 1,000 ML IV SCH (14:55)
[2017-11-18] MEDS: CLOTRIMAZOLE/BETAMET DIPROP 15 GM TUBE TP SCH ×2 (14:59→21:20)
[2017-11-18] MEDS: ATORVASTATIN CA 80 MG TABLET (FP) PO SCH (21:18)
[2017-11-19] MEDS ORDERED: LEVOTHYROXINE NA 50 MCG TABLET (FP) ONE (06:03)
[2017-11-19] MEDS ORDERED: LEVOTHYROXINE NA 125 MCG TABLET (FP) ONE (06:04)
[2017-11-19] MEDS: ACETAMINOPHEN 325 MG TABLET (FP) PO PRN ×2 (06:22→14:08)
[2017-11-19] MEDS: LEVOTHYROXINE 125 MCG, LEVOTHYROXINE 50 MCG PO SCH (06:22)
[2017-11-19] MEDS: METOCLOPRAMIDE HCL 10 MG TABLET (FP) PO SCH ×3 (06:23→16:11)
[2017-11-19] MEDS: FUROSEMIDE 20 MG TABLET (FP) PO SCH ×2 (06:24→16:10)
[2017-11-19] MEDS: metroNIDAZOLE 250 MG TABLET PO SCH ×3 (06:24→22:09)
[2017-11-19] MEDS: INSULIN DETEMIR 100 UNITS/ML MDV SQ SCH ×2 (06:24→22:08)
[2017-11-19] MEDS: INSULIN SLIDING SCALE (NOVOLOG) 1 VIAL SQ SCH ×4 (06:25→22:08)
[2017-11-19 07:14] LABS: EOS % 3.4 % (0-4.5); HEMATOCRIT 32.7 % (35.4-49); HEMOGLOBIN 10.4 GM/dL (11.7-16.9); LYMPH % 18.7 % (8-40); MCH 27.2 pg (25.7-33.7); MCHC 31.7 g/dl (32.0-35.9); MEAN CELL VOLUME 85.6 fl (80-96); MEAN PLT VOLUME 10.2 fl (7.5-11.1); MONO % 16.4 % (3.8-10.2); NEUT % 60.5 % (42.8-82.8); PLATELET COUNT 101 K/MM3 (134-434); RBC 3.82 M/mm3 (4.00-5.60); RDW 15.8 % (11.9-15.9)
[2017-11-19 07:39] LABS: ALBUMIN 2.8 g/dl (3.4-5.0); ANION GAP 11 (8-16); BLOOD UREA NITROGEN 29 mg/dL (7-18); CALCIUM 7.9 mg/dL (8.5-10.1); CHLORIDE 99 mmol/L (98-107); CO2 24 mmol/L (21-32); GLUCOSE,RANDOM 158 mg/dL (74-106); POTASSIUM 4.3 mmol/L (3.5-5.1); SODIUM 134 mmol/L (136-145)
[2017-11-19 07:42] LABS: ALK PHOS 96 U/L (45-117); BILIRUBIN,TOTAL 0.4 mg/dL (0.2-1.0); CREATININE 1.2 mg/dL (0.7-1.3); SGOT/AST 23 U/L (15-37); SGPT/ALT 28 U/L (12-78); TOT PROT 6.3 g/dl (6.4-8.2)
[2017-11-19] MEDS ORDERED: PT OWN MED DRAWER 7, Y5N ONE ×6 (08:34→22:01)
[2017-11-19] MEDS: TAMSULOSIN HCL 0.4 MG CAP.ER.24H (FP) PO SCH (08:36)
[2017-11-19] MEDS: LIPASE/PROTEASE/AMYLASE 36,000 UNIT CAPSULE PO SCH ×3 (08:37→17:15)
[2017-11-19] MEDS: SODIUM CHLORIDE 1,000 ML IV SCH ×2 (09:31→14:50)
--- NOTE | 2017-11-19 09:31 | PN ---
Progress Note, Physician History of Present Illness: C/O ABDOMINAL PAIN DIARRHEA - Current Medication List Current Medications: Active Medications Acetaminophen (Tylenol -) 650 mg PO Q6H PRN PRN Reason: PAIN LEVEL 1 - 3 Last Admin: 11/19/17 06:22 Dose: 650 mg Alprazolam (Xanax -) 0.25 mg PO BID [facility] Last Admin: 11/18/17 21:18 Dose: 0.25 mg Amoxicillin (Amoxicillin -) 500 mg PO BID [facility] Last Admin: 11/18/17 21:18 Dose: 500 mg Apixaban (Eliquis -) 5 mg PO BID [facility] Last Admin: 11/18/17 21:18 Dose: 5 mg Atorvastatin Calcium (Lipitor -) 80 mg PO HS [facility] Last Admin: 11/18/17 21:18 Dose: 80 mg Carvedilol (Coreg -) 6.25 mg PO BID [facility] Last Admin: 11/18/17 22:54 Dose: Not Given Clotrimazole (Lotrisone Cream (Small Tube)) 1 applic TP BID [facility] Last Admin: 11/18/17 21:20 Dose: 1 applic Docusate Sodium (Colace -) 100 mg PO DAILY [facility] Last Admin: 11/18/17 09:22 Dose: 100 mg Duloxetine HCl (Cymbalta -) 60 mg PO DAILY [facility] Last Admin: 11/18/17 09:22 Dose: 60 mg Folic Acid (Folic Acid -) 1 mg PO DAILY [facility] Last Admin: 11/18/17 09:22 Dose: 1 mg Furosemide (Lasix -) 60 mg PO BIDLASIX [facility] Last Admin: 11/19/17 06:24 Dose: 60 mg Gabapentin (Neurontin -) 100 mg PO BID [facility] Last Admin: 11/18/17 21:18 Dose: 100 mg Sodium Chloride (Normal Saline -) 1,000 mls @ 75 mls/hr IV ASDIR [facility] Last Admin: 11/18/17 14:55 Dose: Not Given Insulin Aspart (Novolog Vial Sliding Scale -) 1 vial SQ ACHS [facility] PRN Reason: Protocol Last Admin: 11/19/17 06:25 Dose: Not Given Insulin Detemir (Levemir Vial) 25 units SQ BID@0700,2200 [facility] Last Admin: 11/19/17 06:24 Dose: 25 units Isosorbide Mononitrate (Imdur -) 30 mg PO DAILY [facility] Last Admin: 11/18/17 09:22 Dose: 30 mg Levothyroxine Sodium 125 mcg/ (Levothyroxine Sodium 50 mcg) 175 mcg PO DAILY@ 0700 [facility] Last Admin: 11/19/17 06:22 Dose: 175 mcg Lisinopril (Prinivil) 5 mg PO DAILY [facility] Last Admin: 11/18/17 09:22 Dose: 5 mg Loratadine (Claritin -) 10 mg PO DAILY [facility] Last Admin: 11/18/17 09:22 Dose: 10 mg Metoclopramide HCl (Reglan -) 5 mg PO TIDAC [facility] Last Admin: 11/19/17 06:23 Dose: 5 mg Metronidazole (Flagyl -) 250 mg PO TID [facility] Last Admin: 11/19/17 06:24 Dose: 250 mg Montelukast Sodium (Singulair -) 10 mg PO DAILY [facility] Last Admin: 11/18/17 09:22 Dose: 10 mg Pancrelipase (Creon Dr 36,000 Units Capsule) 1 cap PO TIDCM [facility] Last Admin: 11/19/17 08:37 Dose: 1 cap Pantoprazole Sodium (Protonix -) 40 mg PO BID [facility] Last Admin: 11/18/17 21:19 Dose: 40 mg Polyethylene Glycol (Miralax (For Daily Use) -) 34 gm PO BID [facility] Last Admin: 11/18/17 21:19 Dose: Not Given Potassium Chloride (K-Dur -) 20 meq PO DAILY [facility] Last Admin: 11/18/17 09:22 Dose: 20 meq Spironolactone (Aldactone -) 25 mg PO DAILY [facility] Last Admin: 11/18/17 09:22 Dose: 25 mg Tamsulosin HCl (Flomax -) 0.4 mg PO 0830 [facility] Last Admin: 11/19/17 08:36 Dose: 0.4 mg - Objective Vital Signs: Vital Signs Temperature 98 F 11/19/17 06:21 Pulse Rate 72 11/19/17 06:21 Respiratory Rate 20 11/19/17 06:21 Blood Pressure 118/66 11/19/17 06:21 O2 Sat by Pulse Oximetry (%) 96 11/18/17 21:00 Cardiovascular: Yes: S1, S2 Respiratory: Yes: Regular, CTA Bilaterally Gastrointestinal: Yes: Normal Bowel Sounds, Soft, Tenderness Labs: CBC, BMP 11/19/17 06:48 11/19/17 06:48 Problem List - Problems (1) Chest pain Code(s): R07.9 - CHEST PAIN, UNSPECIFIED Qualifiers: Chest pain type: unspecified Qualified Code(s): R07.9 - Chest pain, unspecified (2) CAD (coronary artery disease) Assessment/Plan: ABOVE Code(s): I25.10 - ATHSCL HEART DISEASE OF [place] CORONARY ARTERY W/O ANG PCTRS Qualifiers: Coronary Disease-Associated Artery/Lesion type: unspecified vessel or lesion type [place] vs. transplanted heart: [place] heart Associated angina: angina presence unspecified Qualified Code(s): I25.10 - Atherosclerotic heart disease of [place] coronary artery without angina pectoris (3) CHF (congestive heart failure) Assessment/Plan: -improving -PO LASIX -MONITOR LYTES Code(s): I50.9 - HEART FAILURE, UNSPECIFIED Qualifiers: Heart failure type: systolic Heart failure chronicity: acute on chronic Qualified Code(s): I50.23 - Acute on chronic systolic (congestive) heart failure (4) COPD (chronic obstructive pulmonary disease) Assessment/Plan: NEBS Code(s): J44.9 - CHRONIC OBSTRUCTIVE PULMONARY DISEASE, UNSPECIFIED (5) Diabetes mellitus, insulin dependent (IDDM), uncontrolled Assessment/Plan: INSULIN BGM Code(s): E10.65 - TYPE 1 DIABETES MELLITUS WITH HYPERGLYCEMIA Qualifiers: (6) Constipation Code(s): K59.00 - CONSTIPATION, UNSPECIFIED (7) Abdominal pain Assessment/Plan: -ct scan -gi noted--follow up -xray no obstruction -us-fatty liver Code(s): R10.9 - UNSPECIFIED ABDOMINAL PAIN Qualifiers: Abdominal location: right upper quadrant Qualified Code(s): R10.11 - Right upper quadrant pain (8) Pancytopenia Assessment/Plan: hem consult id consult follow labs Code(s): D61.818 - OTHER PANCYTOPENIA
[2017-11-19] MEDS: SPIRONOLACTONE 25 MG TABLET (FP) PO SCH (09:33)
[2017-11-19] MEDS: AMOXICILLIN 500 MG CAPSULE (FP) PO SCH ×2 (09:34→22:08)
[2017-11-19] MEDS: LORATADINE 10 MG TABLET PO SCH (09:37)
[2017-11-19] MEDS: DOCUSATE SODIUM 100 MG CAPSULE (FP) PO SCH (09:38)
[2017-11-19] MEDS: CARVEDILOL 3.125 MG TABLET (FP) PO SCH ×2 (09:39→22:09)
[2017-11-19] MEDS: APIXABAN 5 MG TABLET PO SCH ×2 (09:40→22:09)
[2017-11-19] MEDS: DULoxetine HCL 30 MG CAPSULE.DR (FP) PO SCH (09:40)
[2017-11-19] MEDS: POTASSIUM CHLORIDE TABS 20 MEQ TABLET.ER (FP) PO SCH (09:41)
[2017-11-19] MEDS: FOLIC ACID 1 MG TABLET (FP) PO SCH (09:41)
[2017-11-19] MEDS: ISOSORBIDE MONONITRATE 30 MG TAB.SR.24H (FP) PO SCH (09:41)
[2017-11-19] MEDS: POLYETHYLENE GLYCOL 3350 119 GM BTL PO SCH ×2 (09:42→22:10)
[2017-11-19] MEDS: LISINOPRIL 5 MG TABLET (FP) PO SCH (09:42)
[2017-11-19] MEDS: CLOTRIMAZOLE/BETAMET DIPROP 15 GM TUBE TP SCH ×2 (09:42→22:09)
[2017-11-19] MEDS: MONTELUKAST NA 10 MG TABLET PO SCH (09:43)
[2017-11-19] MEDS: PANTOPRAZOLE 40 MG TABLET (FP) PO SCH ×2 (09:43→22:09)
[2017-11-19] MEDS: GABAPENTIN 100 MG CAPSULE (FP) PO SCH ×2 (09:43→22:09)
[2017-11-19] MEDS: ALPRAZolam 0.25 MG TABLET PO SCH ×2 (09:43→22:09)
--- NOTE | 2017-11-19 10:57 | CON.ID ---
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 Patient was in CHF exacerbation, which has been treated. He was found to have abdominal pain and diarrhea, for which he is being evaluated. We were consulted for leukopenia. Patient was found to have a wbc of 2. Patient denies fever, chills, cough, chest pain. Patient endorses mild diarrhea and abdominal pain. Patient lives at home with his . Patient has no idea of his HIV status. Patient denies any recent infections or liver disease. Patient has never been a smoker, drinker, or drug user. Patient unsure if he had a flu shot, but states many people at home had the flu. 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 No: Alzheimer's Cardio/Vascular: Yes: AFIB, Aneurysm (mild ascending aortic aneurysm (4.2 cm) per 01/[address]), CAD (stents x2 in 2010; thrombectomy & PCI of proximal and mid LAD with Promus Premier stents and PTCA of D1 on 12/18/15 at [facility] for acute/subacute anteroseptal SC), CHF, HTN, Hyperlipdemia, Other (ischemic cardiomyopathy (LVEF 34% per 02/16/16 nuclear study)) Gastrointestinal: Yes: Constipation, Diverticulosis Musculoskeletal: Yes: Other (rib fx's right) Endocrine: Yes: Diabetes Mellitus, Hypothyroidism - Past Surgical History Past Surgical History: Yes: Arthrosocopy (Right knee arthroscopy w/ partial medial and lateral meniscectomy 09/01/15), Colectomy - Alcohol/Substance Use Hx Alcohol Use: No History of Substance Use: reports: None - Smoking History Smoking history: Former smoker Have you smoked in the past 12 months: No Aproximately how many cigarettes per day: 0 If you are a former smoker, when did you quit?: 40 years ago - Social History Usual Living Arrangement: [facility] (since last d/c) 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 History of Recent Travel: No Home Medications - Allergies Allergies/Adverse Reactions: Allergies Allergy/AdvReac Type Severity Reaction Status Date / Time No Known Drug Allergies Allergy Verified 11/09/17 12:25 - Home Medications Home Medications: Ambulatory Orders Alprazolam [Xanax] 0.25 mg PO BID 09/25/17 Amoxicillin - [Amoxicillin 500mg Capsule -] 500 mg PO BID 09/25/17 Atorvastatin Ca [Lipitor] 80 mg PO HS 09/25/17 Cetirizine HCl 10 mg PO DAILY 09/25/17 Docusate Sodium 300 mg PO DAILY 09/25/17 Duloxetine HCl [Cymbalta -] 60 mg PO DAILY 09/25/17 Folic Acid 1 mg PO DAILY 09/25/17 Gabapentin [Neurontin -] 100 mg PO BID 09/25/17 Insulin Sliding Scale [Novolog Vial Sliding Scale -] 0 units SQ TIDAC 09/25/17 Levothyroxine [Synthroid -] 175 mcg PO DAILY 09/25/17 Montelukast Sodium [Singulair] 10 mg PO DAILY 09/25/17 Polyethylene Glycol 3350 [Miralax 119 gm Btl -] 17 gm PO DAILY 09/25/17 Potassium Chloride [K-Dur -] 20 meq PO DAILY 09/25/17 Spironolactone 25 mg PO DAILY 09/25/17 Tamsulosin HCl [Flomax -] 0.4 mg PO DAILY 09/25/17 Apixaban [Eliquis -] 5 mg PO BID #6 tablet 09/28/17 Clotrimazole/Betamet Diprop [Lotrisone -] 1 applic TP BID #60 grams 09/28/17 Carvedilol [Coreg -] 6.25 mg PO BID #60 tablet 11/15/17 Furosemide [Lasix -] 60 mg PO BID tablet 11/15/17 Lipase/Protease/Amylase [Surendra Hayes 36,000 Units Capsule] 1 cap PO TIDCM #90 capsule. 11/15/17 Lisinopril [Prinivil] 5 mg PO DAILY #30 tablet 11/15/17 Metoclopramide HCl [Reglan -] 5 mg PO TIDAC #90 tablet 11/15/17 Pantoprazole Sodium [Protonix -] 40 mg PO BID #60 tablet.ec 11/15/17 metroNIDAZOLE [Flagyl -] 250 mg PO TID #15 tablet 11/15/17 Review of Systems - Review of Systems Constitutional: reports: No Symptoms. denies: Chills, Diaphoresis, Fever Cardiovascular: reports: No Symptoms. denies: Chest Pain Respiratory: reports: No Symptoms. denies: Cough, SOB Gastrointestinal: reports: Abdominal Pain, Diarrhea Physical Exam Vital Signs: Vital Signs Temperature 98 F 11/19/17 06:21 Pulse Rate 72 11/19/17 06:21 Respiratory Rate 20 11/19/17 06:21 Blood Pressure 118/66 11/19/17 06:21 O2 Sat by Pulse Oximetry (%) 96 11/18/17 21:00 Constitutional: Yes: Calm Eyes: Yes: WNL, Conjunctiva Clear, EOM Intact HENT: Yes: WNL, Atraumatic, Normocephalic Neck: Yes: Supple, Trachea Midline Cardiovascular: Yes: Regular Rate and Rhythm, S1, S2 Respiratory: Yes: Regular, CTA Bilaterally Gastrointestinal: Yes: Soft, Abdomen, Obese, Tenderness (RUQ). No: Hepatomegaly , Splenomegaly Edema: No Neurological: Yes: Alert, Oriented Psychiatric: Yes: Alert, Oriented Labs: CBC, BMP 11/19/17 06:48 11/19/17 06:48 Assessment/Plan Assessment: 1. Pancytopenia, of unknown etiology 2. Possible viral syndrome 3. Abdominal pain Plan: 1. No antibiotics necessary at this time 2. Flu swab 3. HIV testing, CMV testing 4. Rotavirus, Norovirus antigen testing 5. Hematology Consult
--- NOTE | 2017-11-19 13:37 | PN ---
Teaching Attending Note Name of Resident: Darin Loza ATTENDING PHYSICIAN STATEMENT I saw and evaluated the patient. I reviewed the resident's note and discussed the case with the resident. I agree with the resident's findings and plan as documented. 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 viral illness ? Marrow suppression from B-lactam (less likely) Check flu swab, HIV, CMV, stool for rotavirus/ norovirus Hematology evaluation
--- NOTE | 2017-11-19 17:00 | EKG ---
Test Reason : Blood Pressure : / mmHG Vent. Rate : 073 BPM Atrial Rate : 073 BPM P-R Int : 158 ms QRS Dur : 180 ms QT Int : 494 ms P-R-T Axes : 115 -71 080 degrees QTc Int : 544 ms Atrial-sensed ventricular-paced rhythm ABNORMAL ECG WHEN COMPARED WITH ECG OF 15-NOV-2017 09:09, VENT. RATE HAS INCREASED BY 6 BPM Confirmed by RAFAEL SMITH MD ([id number]) on 11/19/2017 5:00:20 PM Referred By: Confirmed By:RAFAEL SMITH MD
--- NOTE | 2017-11-19 18:30 | PN ---
Progress Note (short form) - Note Progress Note: PAtient seen and examined 82 year old M with pmh of HTN, HLD, DM, [place] s/p 2 stents, Hypothyroid, CHF, and left tibial hardware on chronic antibiotic therapy (amoxicillin) presented to the hospital 10 days prior with chest pain & SOB. Patient was in CHF exacerbation, which has been treated. He was found to have abdominal pain and diarrhea, for which he is being evaluated. We were consulted for leukopenia. Patient was found to have a wbc of 2. Patient denies fever, chills, cough, chest pain. Patient endorses mild diarrhea and abdominal pain. 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 No: Alzheimer's Cardio/Vascular: Yes: AFIB, Aneurysm (mild ascending aortic aneurysm (4.2 cm) per 01/[address]), CAD (stents x2 in 2010; thrombectomy & PCI of proximal and mid LAD with Promus Premier stents and PTCA of D1 on 12/18/15 at [facility] for acute/subacute anteroseptal [place]), CHF, HTN, Hyperlipdemia, Other (ischemic cardiomyopathy (LVEF 34% per 02/16/16 nuclear study)) Gastrointestinal: Yes: Constipation, Diverticulosis Musculoskeletal: Yes: Other (rib fx's right) Endocrine: Yes: Diabetes Mellitus, Hypothyroidism - Past Surgical History Past Surgical History: Yes: Arthrosocopy (Right knee arthroscopy w/ partial medial and lateral meniscectomy 09/01/15), Colectomy - Smoking History Smoking history: Former smoker - Social History Usual Living Arrangement: Care Home (since last d/c) - Allergies Allergies/Adverse Reactions: Allergies Allergy/AdvReac Type Severity Reaction Status Date / Time No Known Drug Allergies Allergy Verified 11/09/17 12:25 - Home Medications Home Medications: Ambulatory Orders Alprazolam [Xanax] 0.25 mg PO BID 09/25/17 Amoxicillin - [Amoxicillin 500mg Capsule -] 500 mg PO BID 09/25/17 Atorvastatin Ca [Lipitor] 80 mg PO HS 09/25/17 Cetirizine HCl 10 mg PO DAILY 09/25/17 Docusate Sodium 300 mg PO DAILY 09/25/17 Duloxetine HCl [Cymbalta -] 60 mg PO DAILY 09/25/17 Folic Acid 1 mg PO DAILY 09/25/17 Gabapentin [Neurontin -] 100 mg PO BID 09/25/17 Insulin Sliding Scale [Novolog Vial Sliding Scale -] 0 units SQ TIDAC 09/25/17 Levothyroxine [Synthroid -] 175 mcg PO DAILY 09/25/17 Montelukast Sodium [Singulair] 10 mg PO DAILY 09/25/17 Polyethylene Glycol 3350 [Miralax 119 gm Btl -] 17 gm PO DAILY 09/25/17 Potassium Chloride [K-Dur -] 20 meq PO DAILY 09/25/17 Spironolactone 25 mg PO DAILY 09/25/17 Tamsulosin HCl [Flomax -] 0.4 mg PO DAILY 09/25/17 Apixaban [Eliquis -] 5 mg PO BID #6 tablet 09/28/17 Clotrimazole/Betamet Diprop [Lotrisone -] 1 applic TP BID #60 grams 09/28/17 Carvedilol [Coreg -] 6.25 mg PO BID #60 tablet 11/15/17 Furosemide [Lasix -] 60 mg PO BID tablet 11/15/17 Lipase/Protease/Amylase [Surendra Hayes 36,000 Units Capsule] 1 cap PO TIDCM #90 capsule. 11/15/17 Lisinopril [Prinivil] 5 mg PO DAILY #30 tablet 11/15/17 Metoclopramide HCl [Reglan -] 5 mg PO TIDAC #90 tablet 11/15/17 Pantoprazole Sodium [Protonix -] 40 mg PO BID #60 tablet.ec 11/15/17 metroNIDAZOLE [Flagyl -] 250 mg PO TID #15 tablet 11/15/17 Vital Signs: Vital Signs Temperature 98 F 11/19/17 06:21 Pulse Rate 72 11/19/17 06:21 Respiratory Rate 20 11/19/17 06:21 Blood Pressure 118/66 11/19/17 06:21 O2 Sat by Pulse Oximetry (%) 96 11/18/17 21:00 Constitutional: Yes: Calm Eyes: Yes: WNL, Conjunctiva Clear, EOM Intact HENT: Yes: WNL, Atraumatic, Normocephalic Neck: Yes: Supple, Trachea Midline Cardiovascular: Yes: Regular Rate and Rhythm, S1, S2 Respiratory: Yes: Regular, CTA Bilaterally Gastrointestinal: Yes: Soft, Abdomen, Obese, Tenderness (RUQ). No: Hepatomegaly , Splenomegaly Edema: No Neurological: Yes: Alert, Oriented Psychiatric: Yes: Alert, Oriented Labs: Abnormal Lab Results 11/19/17 11/19/17 06:48 06:48 WBC 2.0 L D RBC 3.82 L Hgb 10.4 L Hct 32.7 L MCHC 31.7 L Plt Count 101 L D Monocytes % 16.4 H Sodium 134 L BUN 29 H Random Glucose 158 H Calcium 7.9 L Total Protein 6.3 L Albumin 2.8 L Active Medications Generic Name Dose Route Start Last Admin Trade Name Freq PRN Reason Stop Dose Admin Acetaminophen 650 mg 11/11/17 20:22 11/19/17 14:08 Tylenol - PO 650 mg Q6H PRN Administration PAIN LEVEL 1 - 3 Alprazolam 0.25 mg 11/16/17 23:15 11/19/17 09:43 Xanax - PO 0.25 mg BID MANAN Administration Amoxicillin 500 mg 11/09/17 22:00 11/19/17 09:34 Amoxicillin - PO 500 mg BID MANAN Administration Apixaban 5 mg 11/09/17 22:00 11/19/17 09:40 Eliquis - PO 5 mg BID MANAN Administration Atorvastatin Calcium 80 mg 11/09/17 22:00 11/18/17 21:18 Lipitor - PO 80 mg HS MANAN Administration Carvedilol 6.25 mg 11/15/17 10:00 11/19/17 09:39 Coreg - PO 6.25 mg BID MANAN Administration Clotrimazole 1 applic 11/09/17 22:00 11/19/17 09:42 Lotrisone Cream (Small Tube) TP 1 applic BID MANAN Administration Docusate Sodium 100 mg 11/10/17 10:00 11/19/17 09:38 Colace - PO 100 mg DAILY MANAN Administration Duloxetine HCl 60 mg 11/11/17 10:00 11/19/17 09:40 Cymbalta - PO 60 mg DAILY MANAN Administration Folic Acid 1 mg 11/10/17 10:00 11/19/17 09:41 Folic Acid - PO 1 mg DAILY MANAN Administration Furosemide 60 mg 11/15/17 10:00 11/19/17 16:10 Lasix - PO 60 mg BIDLASIX MANAN Administration Gabapentin 100 mg 11/09/17 22:00 11/19/17 09:43 Neurontin - PO 100 mg BID MANAN Administration Sodium Chloride 1,000 mls @ 75 mls/hr 11/17/17 14:45 11/19/17 14:50 Normal Saline - IV Not Given ASDIR MANAN Insulin Aspart 1 vial 11/09/17 22:00 11/19/17 16:17 Novolog Vial Sliding Scale - SQ 2 units ACHS MANAN Administration Protocol Insulin Detemir 25 units 11/09/17 22:00 11/19/17 06:24 Levemir Vial SQ 25 units BID@0700,2200 MANAN Administration Isosorbide Mononitrate 30 mg 11/12/17 10:45 11/19/17 09:41 Imdur - PO 30 mg DAILY MANAN Administration Levothyroxine Sodium 125 mcg/ 175 mcg 11/10/17 07:00 11/19/17 06:22 Levothyroxine Sodium 50 mcg PO 175 mcg DAILY@0700 MANAN Administration Lisinopril 5 mg 11/12/17 10:45 11/19/17 09:42 Prinivil PO 5 mg DAILY MANAN Administration Loratadine 10 mg 11/10/17 10:00 11/19/17 09:37 Claritin - PO 10 mg DAILY MANAN Administration Metoclopramide HCl 5 mg 11/14/17 07:00 11/19/17 16:11 Reglan - PO 5 mg TIDAC MANAN Administration Metronidazole 250 mg 11/13/17 22:00 11/19/17 16:09 Flagyl - PO 250 mg TID MANAN Administration Montelukast Sodium 10 mg 11/10/17 10:00 11/19/17 09:43 Singulair - PO 10 mg DAILY MANAN Administration Morphine Sulfate 4 mg 11/19/17 16:58 Morphine Sulfate IVPUSH Q4H PRN PAIN LEVEL 6-10 Pancrelipase 1 cap 11/14/17 08:00 11/19/17 17:15 Surendra Hayes 36,000 Units Capsule PO 1 cap TIDCM MANAN Administration Pantoprazole Sodium 40 mg 11/15/17 10:00 11/19/17 09:43 Protonix - PO 40 mg BID MANAN Administration Polyethylene Glycol 34 gm 11/13/17 22:00 11/19/17 09:42 Miralax (For Daily Use) - PO 17 grams BID MANAN Administration Potassium Chloride 20 meq 11/10/17 10:00 11/19/17 09:41 K-Dur - PO 20 meq DAILY MANAN Administration Spironolactone 25 mg 11/10/17 10:00 11/19/17 09:33 Aldactone - PO 25 mg DAILY MANAN Administration Tamsulosin HCl 0.4 mg 11/10/17 08:30 11/19/17 08:36 Flomax - PO 0.4 mg 0830 MANAN Administration A/P 82 year old M with pmh of HTN, HLD, DM, [place] s/p 2 stents, Hypothyroid, CHF, and left tibial hardware on chronic antibiotic therapy (amoxicillin) presented to the hospital 10 days prior with chest pain & SOB. Patient was in CHF exacerbation, which has been treated. He was found to have abdominal pain and diarrhea, for which he is being evaluated. We were consulted for leukopenia. Patient was found to have a wbc of 2. PAncytopenia--new onset check occult infection given chills. patient with chronic left tibial hardware infectionwillmoitor ? due to amoxicillin time frame makes marrow pathology lkess likely. will check flow monitor
[2017-11-19] MEDS: morphine SULFATE 4 MG/ML VIAL IVPUSH PRN (20:11)
[2017-11-19] MEDS: ATORVASTATIN CA 80 MG TABLET (FP) PO SCH (22:08)
[2017-11-20] MEDS: SODIUM CHLORIDE 1,000 ML IV SCH ×2 (01:32→14:00)
[2017-11-20] MEDS: morphine SULFATE 4 MG/ML VIAL IVPUSH PRN (04:15)
[2017-11-20] MEDS: ACETAMINOPHEN 325 MG TABLET (FP) PO PRN ×2 (05:40→14:47)
[2017-11-20] MEDS: INSULIN SLIDING SCALE (NOVOLOG) 1 VIAL SQ SCH ×4 (06:37→22:07)
[2017-11-20] MEDS ORDERED: LEVOTHYROXINE NA 125 MCG TABLET (FP) ONE (06:38)
[2017-11-20] MEDS ORDERED: LEVOTHYROXINE NA 50 MCG TABLET (FP) ONE (06:38)
[2017-11-20] MEDS: LEVOTHYROXINE 125 MCG, LEVOTHYROXINE 50 MCG PO SCH (06:52)
[2017-11-20] MEDS: FUROSEMIDE 20 MG TABLET (FP) PO SCH ×2 (06:53→14:42)
[2017-11-20] MEDS: METOCLOPRAMIDE HCL 10 MG TABLET (FP) PO SCH ×3 (06:53→18:54)
[2017-11-20] MEDS: metroNIDAZOLE 250 MG TABLET PO SCH ×2 (06:53→14:49)
[2017-11-20] MEDS: INSULIN DETEMIR 100 UNITS/ML MDV SQ SCH ×2 (06:54→22:06)
[2017-11-20] MEDS ORDERED: PT OWN MED DRAWER 7, Y5N ONE ×4 (08:54→22:02)
[2017-11-20] MEDS: TAMSULOSIN HCL 0.4 MG CAP.ER.24H (FP) PO SCH (08:56)
[2017-11-20] MEDS: LIPASE/PROTEASE/AMYLASE 36,000 UNIT CAPSULE PO SCH ×3 (08:56→17:55)
[2017-11-20] MEDS: LORATADINE 10 MG TABLET PO SCH (10:36)
[2017-11-20] MEDS: AMOXICILLIN 500 MG CAPSULE (FP) PO SCH ×2 (10:36→22:07)
[2017-11-20] MEDS: DOCUSATE SODIUM 100 MG CAPSULE (FP) PO SCH (10:37)
[2017-11-20] MEDS: DULoxetine HCL 30 MG CAPSULE.DR (FP) PO SCH (10:37)
[2017-11-20] MEDS: CARVEDILOL 3.125 MG TABLET (FP) PO SCH ×2 (10:37→22:06)
[2017-11-20] MEDS: APIXABAN 5 MG TABLET PO SCH ×2 (10:38→22:06)
[2017-11-20] MEDS: FOLIC ACID 1 MG TABLET (FP) PO SCH (10:38)
[2017-11-20] MEDS: POTASSIUM CHLORIDE TABS 20 MEQ TABLET.ER (FP) PO SCH (10:39)
[2017-11-20] MEDS: CLOTRIMAZOLE/BETAMET DIPROP 15 GM TUBE TP SCH ×2 (10:39→22:06)
[2017-11-20] MEDS: GABAPENTIN 100 MG CAPSULE (FP) PO SCH ×2 (10:40→22:06)
[2017-11-20] MEDS: LISINOPRIL 5 MG TABLET (FP) PO SCH (10:40)
[2017-11-20] MEDS: POLYETHYLENE GLYCOL 3350 119 GM BTL PO SCH ×2 (10:40→22:07)
[2017-11-20] MEDS: MONTELUKAST NA 10 MG TABLET PO SCH (10:40)
[2017-11-20] MEDS: ALPRAZolam 0.25 MG TABLET PO SCH ×2 (10:42→22:06)
--- NOTE | 2017-11-20 10:42 | PN ---
Progress Note, Physician History of Present Illness: Patient spiked a temp to 101 today. Patient had no acute events overnight. Has no longer had diarrhea. Patient continues to have abdominal pain. Flu swab negative, HIV testing negative. - Current Medication List Current Medications: Active Medications Acetaminophen (Tylenol -) 650 mg PO Q6H PRN PRN Reason: PAIN LEVEL 1 - 3 Last Admin: 11/20/17 05:40 Dose: 650 mg Alprazolam (Xanax -) 0.25 mg PO BID [facility] Last Admin: 11/19/17 22:09 Dose: 0.25 mg Amoxicillin (Amoxicillin -) 500 mg PO BID [facility] Last Admin: 11/19/17 22:08 Dose: 500 mg Apixaban (Eliquis -) 5 mg PO BID [facility] Last Admin: 11/19/17 22:09 Dose: 5 mg Atorvastatin Calcium (Lipitor -) 80 mg PO HS [facility] Last Admin: 11/19/17 22:08 Dose: 80 mg Carvedilol (Coreg -) 6.25 mg PO BID [facility] Last Admin: 11/19/17 22:09 Dose: 6.25 mg Clotrimazole (Lotrisone Cream (Small Tube)) 1 applic TP BID [facility] Last Admin: 11/19/17 22:09 Dose: 1 applic Docusate Sodium (Colace -) 100 mg PO DAILY [facility] Last Admin: 11/19/17 09:38 Dose: 100 mg Duloxetine HCl (Cymbalta -) 60 mg PO DAILY [facility] Last Admin: 11/19/17 09:40 Dose: 60 mg Folic Acid (Folic Acid -) 1 mg PO DAILY [facility] Last Admin: 11/19/17 09:41 Dose: 1 mg Furosemide (Lasix -) 60 mg PO BIDLASIX [facility] Last Admin: 11/20/17 06:53 Dose: 60 mg Gabapentin (Neurontin -) 100 mg PO BID [facility] Last Admin: 11/19/17 22:09 Dose: 100 mg Sodium Chloride (Normal Saline -) 1,000 mls @ 75 mls/hr IV ASDIR [facility] Last Admin: 11/20/17 01:32 Dose: 75 mls/hr Insulin Aspart (Novolog Vial Sliding Scale -) 1 vial SQ ACHS [facility] PRN Reason: Protocol Last Admin: 11/20/17 06:37 Dose: Not Given Insulin Detemir (Levemir Vial) 25 units SQ BID@0700,2200 [facility] Last Admin: 11/20/17 06:54 Dose: 25 units Isosorbide Mononitrate (Imdur -) 30 mg PO DAILY [facility] Last Admin: 11/19/17 09:41 Dose: 30 mg Levothyroxine Sodium 125 mcg/ (Levothyroxine Sodium 50 mcg) 175 mcg PO DAILY@ 0700 [facility] Last Admin: 11/20/17 06:52 Dose: 175 mcg Lisinopril (Prinivil) 5 mg PO DAILY [facility] Last Admin: 11/19/17 09:42 Dose: 5 mg Loratadine (Claritin -) 10 mg PO DAILY [facility] Last Admin: 11/19/17 09:37 Dose: 10 mg Metoclopramide HCl (Reglan -) 5 mg PO TIDAC [facility] Last Admin: 11/20/17 06:53 Dose: 5 mg Metronidazole (Flagyl -) 250 mg PO TID [facility] Last Admin: 11/20/17 06:53 Dose: 250 mg Montelukast Sodium (Singulair -) 10 mg PO DAILY [facility] Last Admin: 11/19/17 09:43 Dose: 10 mg Morphine Sulfate (Morphine Sulfate) 4 mg IVPUSH Q4H PRN PRN Reason: PAIN LEVEL 6-10 Last Admin: 11/20/17 04:15 Dose: 4 mg Pancrelipase (Creon Dr 36,000 Units Capsule) 1 cap PO TIDCM [facility] Last Admin: 11/20/17 08:56 Dose: 1 cap Pantoprazole Sodium (Protonix -) 40 mg PO BID [facility] Last Admin: 11/19/17 22:09 Dose: 40 mg Polyethylene Glycol (Miralax (For Daily Use) -) 34 gm PO BID [facility] Last Admin: 11/19/17 22:10 Dose: Not Given Potassium Chloride (K-Dur -) 20 meq PO DAILY [facility] Last Admin: 11/19/17 09:41 Dose: 20 meq Spironolactone (Aldactone -) 25 mg PO DAILY [facility] Last Admin: 11/19/17 09:33 Dose: 25 mg Tamsulosin HCl (Flomax -) 0.4 mg PO 0830 [facility] Last Admin: 11/20/17 08:56 Dose: 0.4 mg - Objective Vital Signs: Vital Signs Temperature 101 F H 11/20/17 06:00 Pulse Rate 66 11/20/17 06:00 Respiratory Rate 20 02/27/18 06:00 Blood Pressure 93/50 11/20/17 06:00 O2 Sat by Pulse Oximetry (%) 95 11/19/17 21:00 Constitutional: Yes: Calm Eyes: Yes: WNL, Conjunctiva Clear, EOM Intact HENT: Yes: WNL, Atraumatic, Normocephalic Neck: Yes: Supple, Trachea Midline Cardiovascular: Yes: Regular Rate and Rhythm, S1, S2 Respiratory: Yes: Regular, mild crackles at bases Gastrointestinal: Yes: Soft, Abdomen, Obese, Tenderness (RUQ), Distended. No: Hepatomegaly, Splenomegaly Edema: No Neurological: Yes: Alert, Oriented Psychiatric: Yes: Alert, Oriented Labs: Labs: CBC, BMP 11/19/17 06:48 Assessment/Plan Assessment: 1. Pancytopenia, of unknown etiology 2. Possible viral syndrome 3. Abdominal pain Plan: 1. F/u cx 2. F/u CMV, rotavirus, norovirus testing [facility] 4. F/u CBCs
[2017-11-20] MEDS: PANTOPRAZOLE 40 MG TABLET (FP) PO SCH ×2 (10:47→22:06)
[2017-11-20] MEDS: ISOSORBIDE MONONITRATE 30 MG TAB.SR.24H (FP) PO SCH (10:58)
[2017-11-20] MEDS: SPIRONOLACTONE 25 MG TABLET (FP) PO SCH (10:58)
[2017-11-20 11:01] LABS: BASO % 1.6 % (0-2.0); EOS % 1.3 % (0-4.5); HEMATOCRIT 31.1 % (35.4-49); HEMOGLOBIN 9.8 GM/dL (11.7-16.9); LYMPH % 16.4 % (8-40); MCH 27.1 pg (25.7-33.7); MCHC 31.6 g/dl (32.0-35.9); MEAN CELL VOLUME 85.9 fl (80-96); MEAN PLT VOLUME 10.7 fl (7.5-11.1); MONO % 13.8 % (3.8-10.2); NEUT % 66.9 % (42.8-82.8); PLATELET COUNT 100 K/MM3 (134-434); RBC 3.62 M/mm3 (4.00-5.60); RDW 15.9 % (11.9-15.9); WHITE BLOOD COUNT 2.4 K/mm3 (4.0-10.0)
[2017-11-20] MEDS ORDERED: INSULIN (NOVOLOG) ASPART 100 UNITS/ML 10ML VIAL ONE ×2 (11:50→19:11)
--- NOTE | 2017-11-20 18:44 | PN ---
Teaching Attending Note Name of Resident: Darin Loza ATTENDING PHYSICIAN STATEMENT I saw and evaluated the patient. I reviewed the resident's note and discussed the case with the resident. I agree with the resident's findings and plan as documented. SUBJECTIVE: OBJECTIVE: ASSESSMENT AND PLAN: Pancytopenia ? etiology ? meds Abdominal pain/ diarrhea D/C flagyl ( rare cause leukopenia/ thrombocytopenia) Empiric po vancomycin
[2017-11-20] MEDS: VANCOMYCIN 250 MG/5 ML ORAL SOLUTION PO SCH ×2 (18:53→23:43)
--- NOTE | 2017-11-20 19:51 | PN ---
Progress Note, Physician Chief Complaint: MET WITH FAMILY BEDSIDE DISCUSSING POSSIBILITIES OF THE ABD PAIN/PANCYTOPENIA PATIENT AWAKE IN CHAIR SITTING UP STILL WITH DIARRHEA, NON-BLOODY FEVER OVERNIGHT DOCUMENTED - Current Medication List Current Medications: Active Medications Acetaminophen (Tylenol -) 650 mg PO Q6H PRN PRN Reason: PAIN LEVEL 1 - 3 Last Admin: 11/20/17 14:47 Dose: 650 mg Alprazolam (Xanax -) 0.25 mg PO BID [facility] Last Admin: 11/20/17 10:42 Dose: Not Given Amoxicillin (Amoxicillin -) 500 mg PO BID [facility] Last Admin: 11/20/17 10:36 Dose: 500 mg Apixaban (Eliquis -) 5 mg PO BID [facility] Last Admin: 11/20/17 10:38 Dose: 5 mg Atorvastatin Calcium (Lipitor -) 80 mg PO HS [facility] Last Admin: 11/19/17 22:08 Dose: 80 mg Carvedilol (Coreg -) 6.25 mg PO BID [facility] Last Admin: 11/20/17 10:37 Dose: Not Given Clotrimazole (Lotrisone Cream (Small Tube)) 1 applic TP BID [facility] Last Admin: 11/20/17 10:39 Dose: 1 applic Docusate Sodium (Colace -) 100 mg PO DAILY [facility] Last Admin: 11/20/17 10:37 Dose: 100 mg Duloxetine HCl (Cymbalta -) 60 mg PO DAILY [facility] Last Admin: 11/20/17 10:37 Dose: 60 mg Folic Acid (Folic Acid -) 1 mg PO DAILY [facility] Last Admin: 11/20/17 10:38 Dose: 1 mg Furosemide (Lasix -) 60 mg PO BIDLASIX [facility] Last Admin: 11/20/17 14:42 Dose: 60 mg Gabapentin (Neurontin -) 100 mg PO BID [facility] Last Admin: 11/20/17 10:40 Dose: 100 mg Sodium Chloride (Normal Saline -) 1,000 mls @ 75 mls/hr IV ASDIR [facility] Last Admin: 11/20/17 14:00 Dose: Not Given Insulin Aspart (Novolog Vial Sliding Scale -) 1 vial SQ ACHS [facility] PRN Reason: Protocol Last Admin: 11/20/17 16:55 Dose: Not Given Insulin Detemir (Levemir Vial) 25 units SQ BID@0700,2200 [facility] Last Admin: 11/20/17 06:54 Dose: 25 units Isosorbide Mononitrate (Imdur -) 30 mg PO DAILY [facility] Last Admin: 11/20/17 10:58 Dose: Not Given Levothyroxine Sodium 125 mcg/ (Levothyroxine Sodium 50 mcg) 175 mcg PO DAILY@ 0700 [facility] Last Admin: 11/20/17 06:52 Dose: 175 mcg Lisinopril (Prinivil) 5 mg PO DAILY [facility] Last Admin: 11/20/17 10:40 Dose: Not Given Loratadine (Claritin -) 10 mg PO DAILY [facility] Last Admin: 11/20/17 10:36 Dose: 10 mg Metoclopramide HCl (Reglan -) 5 mg PO TIDAC [facility] Last Admin: 11/20/17 18:54 Dose: 5 mg Montelukast Sodium (Singulair -) 10 mg PO DAILY [facility] Last Admin: 11/20/17 10:40 Dose: 10 mg Morphine Sulfate (Morphine Sulfate) 4 mg IVPUSH Q4H PRN PRN Reason: PAIN LEVEL 6-10 Last Admin: 11/20/17 04:15 Dose: 4 mg Pancrelipase (Creon Dr 36,000 Units Capsule) 1 cap PO TIDCM [facility] Last Admin: 11/20/17 17:55 Dose: 1 cap Pantoprazole Sodium (Protonix -) 40 mg PO BID [facility] Last Admin: 11/20/17 10:47 Dose: 40 mg Polyethylene Glycol (Miralax (For Daily Use) -) 34 gm PO BID [facility] Last Admin: 11/20/17 10:40 Dose: Not Given Potassium Chloride (K-Dur -) 20 meq PO DAILY [facility] Last Admin: 11/20/17 10:39 Dose: 20 meq Spironolactone (Aldactone -) 25 mg PO DAILY [facility] Last Admin: 11/20/17 10:58 Dose: Not Given Tamsulosin HCl (Flomax -) 0.4 mg PO 0830 [facility] Last Admin: 11/20/17 08:56 Dose: 0.4 mg Vancomycin HCl (Vancomycin Oral Solution) 125 mg PO Q6HPO [facility] Last Admin: 11/20/17 18:53 Dose: 125 mg - Objective Vital Signs: Vital Signs Temperature 99.2 F 11/20/17 15:00 Pulse Rate 63 11/20/17 14:00 Respiratory Rate 22 11/20/17 14:00 Blood Pressure 110/62 11/20/17 14:00 O2 Sat by Pulse Oximetry (%) 95 11/20/17 09:00 Constitutional: Yes: Mild Distress Eyes: Yes: WNL HENT: Yes: WNL Neck: Yes: WNL Cardiovascular: Yes: Pulse Irregular Respiratory: Yes: On Nasal O2, SOB Gastrointestinal: Yes: Distention, Tenderness Genitourinary: Yes: Incontinence Musculoskeletal: Yes: Muscle Weakness Extremities: Yes: Other Edema: Yes Edema: LLE: Trace, RLE: Trace Peripheral Pulses WNL: Yes Integumentary: Yes: Rash Wound/Incision: Yes: Dressing Dry and Intact Neurological: Yes: Pre-Existing Deficit ...Motor Strength: LLE, RLE Psychiatric: Yes: Other Labs: CBC, BMP 11/20/17 05:35 11/19/17 06:48 Problem List - Problems (1) Obesity (BMI 30-39.9) Code(s): E66.9 - OBESITY, UNSPECIFIED (2) CAD (coronary artery disease) Code(s): I25.10 - ATHSCL HEART DISEASE OF [place] CORONARY ARTERY W/O ANG PCTRS Qualifiers: Coronary Disease-Associated Artery/Lesion type: unspecified vessel or lesion type [place] vs. transplanted heart: [place] heart Associated angina: angina presence unspecified Qualified Code(s): I25.10 - Atherosclerotic heart disease of [place] coronary artery without angina pectoris (3) CHF (congestive heart failure) Code(s): I50.9 - HEART FAILURE, UNSPECIFIED Qualifiers: Heart failure type: systolic Heart failure chronicity: acute on chronic Qualified Code(s): I50.23 - Acute on chronic systolic (congestive) heart failure (4) Chest pain Code(s): R07.9 - CHEST PAIN, UNSPECIFIED Qualifiers: Chest pain type: unspecified Qualified Code(s): R07.9 - Chest pain, unspecified (5) Shortness of breath Code(s): R06.02 - SHORTNESS OF BREATH (6) ASHD (arteriosclerotic heart disease) Code(s): I25.10 - ATHSCL HEART DISEASE OF [place] CORONARY ARTERY W/O ANG PCTRS (7) Abdominal distension (gaseous) Code(s): R14.0 - ABDOMINAL DISTENSION (GASEOUS) (8) Abdominal pain Code(s): R10.9 - UNSPECIFIED ABDOMINAL PAIN Qualifiers: Abdominal location: right upper quadrant Qualified Code(s): R10.11 - Right upper quadrant pain (9) COPD (chronic obstructive pulmonary disease) Code(s): J44.9 - CHRONIC OBSTRUCTIVE PULMONARY DISEASE, UNSPECIFIED (10) Diabetes mellitus, insulin dependent (IDDM), uncontrolled Code(s): E10.65 - TYPE 1 DIABETES MELLITUS WITH HYPERGLYCEMIA Qualifiers: (11) Type 2 diabetes mellitus with diabetic chronic kidney disease Code(s): E11.22 - TYPE 2 DIABETES MELLITUS W DIABETIC CHRONIC KIDNEY DISEASE (12) 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 Code(s): E11.311 - TYPE 2 DIABETES W UNSP DIABETIC RETINOPATHY W MACULAR EDEMA (13) Type 2 diabetes mellitus with hyperglycemia Code(s): E11.65 - TYPE 2 DIABETES MELLITUS WITH HYPERGLYCEMIA (14) Unsteady gait Code(s): R26.81 - UNSTEADINESS ON FEET (15) IBS (irritable bowel syndrome) Code(s): K58.9 - IRRITABLE BOWEL SYNDROME WITHOUT DIARRHEA Qualifiers: Irritable bowel syndrome type: with diarrhea Qualified Code(s): K58.0 - Irritable bowel syndrome with diarrhea (16) Pancytopenia Code(s): D61.818 - OTHER PANCYTOPENIA (17) Anxiety Code(s): F41.9 - ANXIETY DISORDER, UNSPECIFIED Assessment/Plan I DISCUSSED WITH FAMILY THAT LIKELY MULTIFACTORIAL PROBLEMS CONTRIBUTING TO ALL OF THE SYMPTOMS PATIENT IS COMPLAINING OF CT ABD/PELVIS NO ACUTE CHANGES PANCYTOPENIA POSSIBLE REACTION TO [facility] AMOXICILLAN THERAPY STOPPED FOR NOW, BUT WILL NEED TO READDRESS THE TREATMENT FOR HIS CHRONIC LEFT LOWER EXTREMITY INFECTION. PATIENT WAS ORDERED BY [facility] TO STAY ON AMOXICILLIN FOR LIFE TIME THERAPY. I CALLED GI AND PATIENT WILL BE SEEN TODAY FOR F/U TOLERATING MEALS ON IVF MAKING URINE TODAY F/U LABS PT WILL NEED SNF
[2017-11-20] MEDS ORDERED: ACETAMINOPHEN 1000 MG/100 ML VIAL (NON FORMULARY) IVPB PRN (19:52)
[2017-11-20] MEDS: ATORVASTATIN CA 80 MG TABLET (FP) PO SCH (22:06)
[2017-11-21] MEDS ORDERED: LEVOTHYROXINE NA 50 MCG TABLET (FP) ONE (06:15)
[2017-11-21] MEDS ORDERED: LEVOTHYROXINE NA 125 MCG TABLET (FP) ONE (06:15)
[2017-11-21] MEDS ORDERED: PT OWN MED DRAWER 7, Y5N ONE ×5 (06:16→23:57)
[2017-11-21] MEDS: FUROSEMIDE 20 MG TABLET (FP) PO SCH ×2 (06:17→14:30)
[2017-11-21] MEDS: VANCOMYCIN 250 MG/5 ML ORAL SOLUTION PO SCH ×3 (06:17→17:41)
[2017-11-21] MEDS: LEVOTHYROXINE 125 MCG, LEVOTHYROXINE 50 MCG PO SCH (06:17)
[2017-11-21] MEDS: METOCLOPRAMIDE HCL 10 MG TABLET (FP) PO SCH ×3 (06:18→16:01)
[2017-11-21] MEDS: INSULIN SLIDING SCALE (NOVOLOG) 1 VIAL SQ SCH ×4 (06:19→21:47)
[2017-11-21] MEDS: INSULIN DETEMIR 100 UNITS/ML MDV SQ SCH ×2 (06:20→21:46)
[2017-11-21] MEDS ORDERED: INSULIN DETEMIR 100 UNITS/ML MDV SQ ONE (06:56)
[2017-11-21] MEDS ORDERED: INSULIN (NOVOLOG) ASPART 100 UNITS/ML 10ML VIAL ONE ×2 (06:57→21:11)
[2017-11-21 07:34] LABS: BASO % 0.9 % (0-2.0); HEMATOCRIT 31.7 % (35.4-49); HEMOGLOBIN 10.2 GM/dL (11.7-16.9); LYMPH % 14.9 % (8-40); MCH 27.4 pg (25.7-33.7); MCHC 32.1 g/dl (32.0-35.9); MEAN CELL VOLUME 85.2 fl (80-96); MEAN PLT VOLUME 10.6 fl (7.5-11.1); MONO % 12.8 % (3.8-10.2); NEUT % 70.4 % (42.8-82.8); PLATELET COUNT 92 K/MM3 (134-434); RBC 3.72 M/mm3 (4.00-5.60); RDW 15.6 % (11.9-15.9); WHITE BLOOD COUNT 2.4 K/mm3 (4.0-10.0)
[2017-11-21 07:39] LABS: INR 1.65 (0.82-1.09); PROTHROMBIN TIME (PATIENT) 18.7 SEC (9.98-11.88)
[2017-11-21 07:42] LABS: ACTIVATED PTT 33.8 SECONDS (26.9-34.4)
[2017-11-21 07:50] LABS: ANION GAP 10 (8-16); BLOOD UREA NITROGEN 32 mg/dL (7-18); CALCIUM 7.3 mg/dL (8.5-10.1); CHLORIDE 102 mmol/L (98-107); CO2 22 mmol/L (21-32); CREATININE 1.4 mg/dL (0.7-1.3); GLUCOSE,RANDOM 143 mg/dL (74-106); MAGNESIUM 1.7 mg/dL (1.8-2.4); PHOSPHOROUS 3.4 mg/dL (2.5-4.9); POTASSIUM 4.6 mmol/L (3.5-5.1); SODIUM 134 mmol/L (136-145)
--- NOTE | 2017-11-21 08:24 | PN ---
Progress Note, Physician History of Present Illness: 82 year old M with pancytopenia. Patient switched from Flagyl to PO vanco today. Still complaining of diarrhea and abdominal pain. Denies chest pain, cough, sob, dysuria. - Current Medication List Current Medications: Active Medications Acetaminophen (Tylenol -) 650 mg PO Q6H PRN PRN Reason: PAIN LEVEL 1 - 3 Last Admin: 11/20/17 14:47 Dose: 650 mg Acetaminophen (Ofirmev Injection -) 1,000 mg IVPB Q6H PRN PRN Reason: PAIN LEVEL 6-10 Last Admin: 11/21/17 02:11 Dose: 1,000 mg Alprazolam (Xanax -) 0.25 mg PO BID [facility] Last Admin: 11/20/17 22:06 Dose: 0.25 mg Amoxicillin (Amoxicillin -) 500 mg PO BID [facility] Last Admin: 11/20/17 22:07 Dose: 500 mg Apixaban (Eliquis -) 5 mg PO BID [facility] Last Admin: 11/20/17 22:06 Dose: 5 mg Atorvastatin Calcium (Lipitor -) 80 mg PO HS [facility] Last Admin: 11/20/17 22:06 Dose: 80 mg Carvedilol (Coreg -) 6.25 mg PO BID [facility] Last Admin: 11/20/17 22:06 Dose: 6.25 mg Clotrimazole (Lotrisone Cream (Small Tube)) 1 applic TP BID [facility] Last Admin: 11/20/17 22:06 Dose: 1 applic Docusate Sodium (Colace -) 100 mg PO DAILY [facility] Last Admin: 11/20/17 10:37 Dose: 100 mg Duloxetine HCl (Cymbalta -) 60 mg PO DAILY [facility] Last Admin: 11/20/17 10:37 Dose: 60 mg Folic Acid (Folic Acid -) 1 mg PO DAILY [facility] Last Admin: 11/20/17 10:38 Dose: 1 mg Furosemide (Lasix -) 60 mg PO BIDLASIX [facility] Last Admin: 11/21/17 06:17 Dose: 60 mg Gabapentin (Neurontin -) 100 mg PO BID [facility] Last Admin: 11/20/17 22:06 Dose: 100 mg Sodium Chloride (Normal Saline -) 1,000 mls @ 75 mls/hr IV ASDIR [facility] Last Admin: 11/20/17 14:00 Dose: Not Given Insulin Aspart (Novolog Vial Sliding Scale -) 1 vial SQ [facility] PRN Reason: Protocol Last Admin: 11/21/17 06:19 Dose: Not Given Insulin Detemir (Levemir Vial) 25 units SQ BID@0700,2200 [facility] Last Admin: 11/21/17 06:20 Dose: 25 units Isosorbide Mononitrate (Imdur -) 30 mg PO DAILY [facility] Last Admin: 11/20/17 10:58 Dose: Not Given Levothyroxine Sodium 125 mcg/ (Levothyroxine Sodium 50 mcg) 175 mcg PO DAILY@ 0700 [facility] Last Admin: 11/21/17 06:17 Dose: 175 mcg Lisinopril (Prinivil) 5 mg PO DAILY [facility] Last Admin: 11/20/17 10:40 Dose: Not Given Loratadine (Claritin -) 10 mg PO DAILY [facility] Last Admin: 11/20/17 10:36 Dose: 10 mg Metoclopramide HCl (Reglan -) 5 mg PO TIDAC [facility] Last Admin: 11/21/17 06:18 Dose: 5 mg Montelukast Sodium (Singulair -) 10 mg PO DAILY [facility] Last Admin: 11/20/17 10:40 Dose: 10 mg Pancrelipase (Creon Dr 36,000 Units Capsule) 1 cap PO TIDCM [facility] Last Admin: 11/20/17 17:55 Dose: 1 cap Pantoprazole Sodium (Protonix -) 40 mg PO BID [facility] Last Admin: 11/20/17 22:06 Dose: 40 mg Polyethylene Glycol (Miralax (For Daily Use) -) 34 gm PO BID [facility] Last Admin: 11/20/17 22:07 Dose: Not Given Potassium Chloride (K-Dur -) 20 meq PO DAILY [facility] Last Admin: 11/20/17 10:39 Dose: 20 meq Spironolactone (Aldactone -) 25 mg PO DAILY [facility] Last Admin: 11/20/17 10:58 Dose: Not Given Tamsulosin HCl (Flomax -) 0.4 mg PO 0830 [facility] Last Admin: 11/20/17 08:56 Dose: 0.4 mg Vancomycin HCl (Vancomycin Oral Solution) 125 mg PO Q6HPO [facility] Last Admin: 11/21/17 06:17 Dose: 125 mg - Objective Vital Signs: Vital Signs Temperature 101.4 F H 11/21/17 06:00 Pulse Rate 69 02/28/18 06:00 Respiratory Rate 24 11/21/17 06:00 Blood Pressure 116/41 11/21/17 06:00 O2 Sat by Pulse Oximetry (%) 95 11/20/17 21:00 Constitutional: Yes: Calm Eyes: Yes: WNL, Conjunctiva Clear, EOM Intact HENT: Yes: WNL, Atraumatic, Normocephalic Neck: Yes: Supple, Trachea Midline Cardiovascular: Yes: Regular Rate and Rhythm, S1, S2 Respiratory: Yes: Regular, mild crackles at right base Gastrointestinal: Yes: Soft, Abdomen, Obese, Tenderness (RUQ), Distended. No: Hepatomegaly, Splenomegaly Edema: No Neurological: Yes: Alert, Oriented Psychiatric: Yes: Alert, Oriented Labs: CBC, BMP 11/21/17 07:12 11/21/17 07:12 INR, PTT INR 1.65 (0.82-1.09) H D 11/21/17 07:12
[2017-11-21] MEDS: ACETAMINOPHEN 325 MG TABLET (FP) PO PRN ×3 (08:31→21:16)
[2017-11-21] MEDS: TAMSULOSIN HCL 0.4 MG CAP.ER.24H (FP) PO SCH (08:32)
[2017-11-21] MEDS: LIPASE/PROTEASE/AMYLASE 36,000 UNIT CAPSULE PO SCH ×3 (08:54→17:40)
--- NOTE | 2017-11-21 09:16 | PN ---
Progress Note, Physician History of Present Illness: C/O ABDOMINAL PAIN DIARRHEA - Current Medication List Current Medications: Active Medications Acetaminophen (Tylenol -) 650 mg PO Q6H PRN PRN Reason: PAIN LEVEL 1 - 3 Last Admin: 11/21/17 08:31 Dose: 650 mg Acetaminophen (Ofirmev Injection -) 1,000 mg IVPB Q6H PRN PRN Reason: PAIN LEVEL 6-10 Last Admin: 11/21/17 02:11 Dose: 1,000 mg Alprazolam (Xanax -) 0.25 mg PO BID [facility] Last Admin: 11/20/17 22:06 Dose: 0.25 mg Amoxicillin (Amoxicillin -) 500 mg PO BID [facility] Last Admin: 11/20/17 22:07 Dose: 500 mg Apixaban (Eliquis -) 5 mg PO BID [facility] Last Admin: 11/20/17 22:06 Dose: 5 mg Atorvastatin Calcium (Lipitor -) 80 mg PO HS [facility] Last Admin: 11/20/17 22:06 Dose: 80 mg Carvedilol (Coreg -) 6.25 mg PO BID [facility] Last Admin: 11/20/17 22:06 Dose: 6.25 mg Clotrimazole (Lotrisone Cream (Small Tube)) 1 applic TP BID [facility] Last Admin: 11/20/17 22:06 Dose: 1 applic Docusate Sodium (Colace -) 100 mg PO DAILY [facility] Last Admin: 11/20/17 10:37 Dose: 100 mg Duloxetine HCl (Cymbalta -) 60 mg PO DAILY [facility] Last Admin: 11/20/17 10:37 Dose: 60 mg Folic Acid (Folic Acid -) 1 mg PO DAILY [facility] Last Admin: 11/20/17 10:38 Dose: 1 mg Furosemide (Lasix -) 60 mg PO BIDLASIX [facility] Last Admin: 11/21/17 06:17 Dose: 60 mg Gabapentin (Neurontin -) 100 mg PO BID [facility] Last Admin: 11/20/17 22:06 Dose: 100 mg Insulin Aspart (Novolog Vial Sliding Scale -) 1 vial SQ ACHS [facility] PRN Reason: Protocol Last Admin: 11/21/17 06:19 Dose: Not Given Insulin Detemir (Levemir Vial) 25 units SQ BID@0700,2200 [facility] Last Admin: 11/21/17 06:20 Dose: 25 units Isosorbide Mononitrate (Imdur -) 30 mg PO DAILY [facility] Last Admin: 11/20/17 10:58 Dose: Not Given Levothyroxine Sodium 125 mcg/ (Levothyroxine Sodium 50 mcg) 175 mcg PO DAILY@ 0700 [facility] Last Admin: 11/21/17 06:17 Dose: 175 mcg Lisinopril (Prinivil) 5 mg PO DAILY [facility] Last Admin: 11/20/17 10:40 Dose: Not Given Loratadine (Claritin -) 10 mg PO DAILY [facility] Last Admin: 11/20/17 10:36 Dose: 10 mg Metoclopramide HCl (Reglan -) 5 mg PO TIDAC [facility] Last Admin: 11/21/17 06:18 Dose: 5 mg Montelukast Sodium (Singulair -) 10 mg PO DAILY [facility] Last Admin: 11/20/17 10:40 Dose: 10 mg Pancrelipase (Creon Dr 36,000 Units Capsule) 1 cap PO TIDCM [facility] Last Admin: 11/20/17 17:55 Dose: 1 cap Pantoprazole Sodium (Protonix -) 40 mg PO BID [facility] Last Admin: 11/20/17 22:06 Dose: 40 mg Polyethylene Glycol (Miralax (For Daily Use) -) 34 gm PO BID [facility] Last Admin: 11/20/17 22:07 Dose: Not Given Potassium Chloride (K-Dur -) 20 meq PO DAILY [facility] Last Admin: 11/20/17 10:39 Dose: 20 meq Spironolactone (Aldactone -) 25 mg PO DAILY [facility] Last Admin: 11/20/17 10:58 Dose: Not Given Tamsulosin HCl (Flomax -) 0.4 mg PO 0830 [facility] Last Admin: 11/21/17 08:32 Dose: 0.4 mg Vancomycin HCl (Vancomycin Oral Solution) 125 mg PO Q6HPO [facility] Last Admin: 11/21/17 06:17 Dose: 125 mg - Objective Vital Signs: Vital Signs Temperature 101.4 F H 11/21/17 06:00 Pulse Rate 69 11/21/17 06:00 Respiratory Rate 24 11/21/17 06:00 Blood Pressure 116/41 11/21/17 06:00 O2 Sat by Pulse Oximetry (%) 95 11/20/17 21:00 Cardiovascular: Yes: S1, S2 Respiratory: Yes: Regular, CTA Bilaterally Gastrointestinal: Yes: Normal Bowel Sounds, Soft. No: Tenderness Labs: CBC, BMP 11/21/17 07:12 11/21/17 07:12 INR, PTT INR 1.65 (0.82-1.09) H D 11/21/17 07:12 Problem List - Problems (1) Chest pain Assessment/Plan: RESOLVED FOLLOW CE--MILD ELEVATED--MAY BE DUE TO DEMAND--CHF CARDIO NOTED CONTINUE WITH CURRENT MEDS Code(s): R07.9 - CHEST PAIN, UNSPECIFIED Qualifiers: Chest pain type: unspecified Qualified Code(s): R07.9 - Chest pain, unspecified (2) CAD (coronary artery disease) Assessment/Plan: ABOVE Code(s): I25.10 - ATHSCL HEART DISEASE OF [place] CORONARY ARTERY W/O ANG PCTRS Qualifiers: Coronary Disease-Associated Artery/Lesion type: unspecified vessel or lesion type [place] vs. transplanted heart: [place] heart Associated angina: angina presence unspecified Qualified Code(s): I25.10 - Atherosclerotic heart disease of [place] coronary artery without angina pectoris (3) CHF (congestive heart failure) Assessment/Plan: -improving -PO LASIX -MONITOR LYTES Code(s): I50.9 - HEART FAILURE, UNSPECIFIED Qualifiers: Heart failure type: systolic Heart failure chronicity: acute on chronic Qualified Code(s): I50.23 - Acute on chronic systolic (congestive) heart failure (4) COPD (chronic obstructive pulmonary disease) Code(s): J44.9 - CHRONIC OBSTRUCTIVE PULMONARY DISEASE, UNSPECIFIED (5) Diabetes mellitus, insulin dependent (IDDM), uncontrolled Assessment/Plan: INSULIN BGM Code(s): E10.65 - TYPE 1 DIABETES MELLITUS WITH HYPERGLYCEMIA Qualifiers: (6) Constipation Code(s): K59.00 - CONSTIPATION, UNSPECIFIED (7) Abdominal pain Assessment/Plan: -ct scan noted--GI follow up -xray no obstruction -us-fatty liver Code(s): R10.9 - UNSPECIFIED ABDOMINAL PAIN Qualifiers: Abdominal location: right upper quadrant Qualified Code(s): R10.11 - Right upper quadrant pain (8) Pancytopenia Assessment/Plan: hem consult noted--off flagyl id consult follow labs Code(s): D61.818 - OTHER PANCYTOPENIA
[2017-11-21 10:10] LABS: CMV IgM < 30.0 AU/mL (0.0-29.9)
[2017-11-21] MEDS: PANTOPRAZOLE 40 MG TABLET (FP) PO SCH ×2 (10:50→21:15)
[2017-11-21] MEDS: CARVEDILOL 3.125 MG TABLET (FP) PO SCH ×2 (10:50→21:47)
[2017-11-21] MEDS: GABAPENTIN 100 MG CAPSULE (FP) PO SCH ×2 (10:51→21:15)
[2017-11-21] MEDS: SPIRONOLACTONE 25 MG TABLET (FP) PO SCH (10:51)
[2017-11-21] MEDS: MONTELUKAST NA 10 MG TABLET PO SCH (10:51)
[2017-11-21] MEDS: DULoxetine HCL 30 MG CAPSULE.DR (FP) PO SCH (10:51)
[2017-11-21] MEDS: LISINOPRIL 5 MG TABLET (FP) PO SCH (10:51)
[2017-11-21] MEDS: POTASSIUM CHLORIDE TABS 20 MEQ TABLET.ER (FP) PO SCH (10:51)
[2017-11-21] MEDS: FOLIC ACID 1 MG TABLET (FP) PO SCH (10:52)
[2017-11-21] MEDS: ALPRAZolam 0.25 MG TABLET PO SCH ×2 (10:52→21:47)
[2017-11-21] MEDS: APIXABAN 5 MG TABLET PO SCH ×2 (10:52→21:15)
[2017-11-21] MEDS: ISOSORBIDE MONONITRATE 30 MG TAB.SR.24H (FP) PO SCH (10:52)
[2017-11-21] MEDS: LORATADINE 10 MG TABLET PO SCH (10:53)
[2017-11-21] MEDS: DOCUSATE SODIUM 100 MG CAPSULE (FP) PO SCH (10:53)
[2017-11-21] MEDS: POLYETHYLENE GLYCOL 3350 119 GM BTL PO SCH ×2 (11:07→21:47)
[2017-11-21] MEDS: CLOTRIMAZOLE/BETAMET DIPROP 15 GM TUBE TP SCH ×2 (11:31→21:47)
[2017-11-21] MEDS: AMOXICILLIN 500 MG CAPSULE (FP) PO SCH ×2 (12:41→21:15)
[2017-11-21] MEDS: traMADol HCL 50 MG TABLET PO PRN (18:45)
[2017-11-21] MEDS: ATORVASTATIN CA 80 MG TABLET (FP) PO SCH (21:15)
[2017-11-21] MEDS: MORPHINE SULFATE 10 MG/1 ML *VIAL IVPUSH PRN (21:41)
[2017-11-22] MEDS: traMADol HCL 50 MG TABLET PO PRN ×2 (03:35→11:01)
[2017-11-22] MEDS: MORPHINE SULFATE 10 MG/1 ML *VIAL IVPUSH PRN (04:11)
[2017-11-22] MEDS: INSULIN SLIDING SCALE (NOVOLOG) 1 VIAL SQ SCH ×4 (06:38→21:17)
[2017-11-22] MEDS: INSULIN DETEMIR 100 UNITS/ML MDV SQ SCH ×2 (06:38→21:18)
[2017-11-22] MEDS ORDERED: LEVOTHYROXINE NA 125 MCG TABLET (FP) ONE (07:08)
[2017-11-22] MEDS ORDERED: LEVOTHYROXINE NA 50 MCG TABLET (FP) ONE (07:09)
[2017-11-22] MEDS: FUROSEMIDE 20 MG TABLET (FP) PO SCH ×2 (07:10→14:01)
[2017-11-22] MEDS: LEVOTHYROXINE 125 MCG, LEVOTHYROXINE 50 MCG PO SCH (07:10)
[2017-11-22] MEDS: METOCLOPRAMIDE HCL 10 MG TABLET (FP) PO SCH ×3 (07:10→17:35)
[2017-11-22] MEDS: VANCOMYCIN 250 MG/5 ML ORAL SOLUTION PO SCH ×5 (07:11→23:51)
[2017-11-22 07:13] LABS: EOS % 2.5 % (0-4.5); HEMATOCRIT 29.3 % (35.4-49); HEMOGLOBIN 9.7 GM/dL (11.7-16.9); LYMPH % 25.2 % (8-40); MCH 28.1 pg (25.7-33.7); MEAN CELL VOLUME 85.3 fl (80-96); MEAN PLT VOLUME 10.9 fl (7.5-11.1); MONO % 14.5 % (3.8-10.2); NEUT % 56.8 % (42.8-82.8); PLATELET COUNT 87 K/MM3 (134-434); RBC 3.43 M/mm3 (4.00-5.60); RDW 15.7 % (11.9-15.9); WHITE BLOOD COUNT 2.1 K/mm3 (4.0-10.0)
[2017-11-22 07:42] LABS: ALBUMIN 2.6 g/dl (3.4-5.0); ANION GAP 7 (8-16); BLOOD UREA NITROGEN 39 mg/dL (7-18); CALCIUM 7.1 mg/dL (8.5-10.1); CHLORIDE 104 mmol/L (98-107); CO2 25 mmol/L (21-32); CREATININE 1.5 mg/dL (0.7-1.3); GLUCOSE,RANDOM 79 mg/dL (74-106); POTASSIUM 4.4 mmol/L (3.5-5.1); SGOT/AST 23 U/L (15-37); SGPT/ALT 22 U/L (12-78); SODIUM 136 mmol/L (136-145)
[2017-11-22 07:44] LABS: ALK PHOS 84 U/L (45-117); BILIRUBIN,TOTAL 0.5 mg/dL (0.2-1.0); TOT PROT 5.9 g/dl (6.4-8.2)
--- NOTE | 2017-11-22 08:13 | PN ---
Progress Note, Physician History of Present Illness: C/O ABDOMINAL PAIN DIARRHEA - Current Medication List Current Medications: Active Medications Acetaminophen (Tylenol -) 650 mg PO Q6H PRN PRN Reason: PAIN LEVEL 1 - 3 Last Admin: 11/21/17 21:16 Dose: 650 mg Alprazolam (Xanax -) 0.25 mg PO BID [facility] Last Admin: 11/21/17 21:47 Dose: Not Given Amoxicillin (Amoxicillin -) 500 mg PO BID [facility] Last Admin: 11/21/17 21:15 Dose: 500 mg Apixaban (Eliquis -) 5 mg PO BID [facility] Last Admin: 11/21/17 21:15 Dose: 5 mg Atorvastatin Calcium (Lipitor -) 80 mg PO HS [facility] Last Admin: 11/21/17 21:15 Dose: 80 mg Carvedilol (Coreg -) 6.25 mg PO BID [facility] Last Admin: 11/21/17 21:47 Dose: Not Given Clotrimazole (Lotrisone Cream (Small Tube)) 1 applic TP BID [facility] Last Admin: 11/21/17 21:47 Dose: 1 applic Docusate Sodium (Colace -) 100 mg PO DAILY [facility] Last Admin: 11/21/17 10:53 Dose: Not Given Duloxetine HCl (Cymbalta -) 60 mg PO DAILY [facility] Last Admin: 11/21/17 10:51 Dose: 60 mg Folic Acid (Folic Acid -) 1 mg PO DAILY [facility] Last Admin: 11/21/17 10:52 Dose: 1 mg Furosemide (Lasix -) 60 mg PO BIDLASIX [facility] Last Admin: 11/22/17 07:10 Dose: 60 mg Gabapentin (Neurontin -) 100 mg PO BID [facility] Last Admin: 11/21/17 21:15 Dose: 100 mg Insulin Aspart (Novolog Vial Sliding Scale -) 1 vial SQ ACHS [facility] PRN Reason: Protocol Last Admin: 11/22/17 06:38 Dose: Not Given Insulin Detemir (Levemir Vial) 25 units SQ BID@0700,2200 [facility] Last Admin: 11/22/17 06:38 Dose: Not Given Isosorbide Mononitrate (Imdur -) 30 mg PO DAILY [facility] Last Admin: 11/21/17 10:52 Dose: 30 mg Levothyroxine Sodium 125 mcg/ (Levothyroxine Sodium 50 mcg) 175 mcg PO DAILY@ 0700 [facility] Last Admin: 11/22/17 07:10 Dose: 175 mcg Lisinopril (Prinivil) 5 mg PO DAILY [facility] Last Admin: 11/21/17 10:51 Dose: 5 mg Loratadine (Claritin -) 10 mg PO DAILY [facility] Last Admin: 11/21/17 10:53 Dose: 10 mg Metoclopramide HCl (Reglan -) 5 mg PO TIDAC [facility] Last Admin: 11/22/17 07:10 Dose: 5 mg Montelukast Sodium (Singulair -) 10 mg PO DAILY [facility] Last Admin: 11/21/17 10:51 Dose: 10 mg Pancrelipase (Creon Dr 36,000 Units Capsule) 1 cap PO TIDCM [facility] Last Admin: 11/21/17 17:40 Dose: 1 cap Polyethylene Glycol (Miralax (For Daily Use) -) 34 gm PO BID [facility] Last Admin: 11/21/17 21:47 Dose: Not Given Potassium Chloride (K-Dur -) 20 meq PO DAILY [facility] Last Admin: 11/21/17 10:51 Dose: 20 meq Ranitidine HCl (Zantac -) 150 mg PO BID [facility] Spironolactone (Aldactone -) 25 mg PO DAILY [facility] Last Admin: 11/21/17 10:51 Dose: 25 mg Tamsulosin HCl (Flomax -) 0.4 mg PO 0830 [facility] Last Admin: 11/21/17 08:32 Dose: 0.4 mg Tramadol HCl (Ultram -) 50 mg PO Q8H PRN PRN Reason: PAIN LEVEL 7 - 10 Last Admin: 11/22/17 03:35 Dose: 50 mg Vancomycin HCl (Vancomycin Oral Solution) 125 mg PO Q6HPO [facility] Last Admin: 11/22/17 07:11 Dose: 125 mg - Objective Vital Signs: Vital Signs Temperature 98.8 F 11/22/17 06:00 Pulse Rate 62 11/22/17 06:00 Respiratory Rate 16 11/22/17 06:00 Blood Pressure 126/61 11/22/17 06:00 O2 Sat by Pulse Oximetry (%) 95 11/21/17 20:43 Cardiovascular: Yes: S1, S2 Respiratory: Yes: Regular, CTA Bilaterally Gastrointestinal: Yes: Normal Bowel Sounds, Soft, Distention Labs: CBC, BMP 11/22/17 05:35 INR, PTT INR 1.65 (0.82-1.09) H D 11/21/17 07:12 Problem List - Problems (1) Chest pain Code(s): R07.9 - CHEST PAIN, UNSPECIFIED Qualifiers: Chest pain type: unspecified Qualified Code(s): R07.9 - Chest pain, unspecified (2) CAD (coronary artery disease) Code(s): I25.10 - ATHSCL HEART DISEASE OF [place] CORONARY ARTERY W/O ANG PCTRS Qualifiers: Coronary Disease-Associated Artery/Lesion type: unspecified vessel or lesion type [place] vs. transplanted heart: [place] heart Associated angina: angina presence unspecified Qualified Code(s): I25.10 - Atherosclerotic heart disease of [place] coronary artery without angina pectoris (3) CHF (congestive heart failure) Assessment/Plan: -improving -PO LASIX -MONITOR LYTES Code(s): I50.9 - HEART FAILURE, UNSPECIFIED Qualifiers: Heart failure type: systolic Heart failure chronicity: acute on chronic Qualified Code(s): I50.23 - Acute on chronic systolic (congestive) heart failure (4) COPD (chronic obstructive pulmonary disease) Assessment/Plan: NEBS Code(s): J44.9 - CHRONIC OBSTRUCTIVE PULMONARY DISEASE, UNSPECIFIED (5) Diabetes mellitus, insulin dependent (IDDM), uncontrolled Assessment/Plan: INSULIN BGM Code(s): E10.65 - TYPE 1 DIABETES MELLITUS WITH HYPERGLYCEMIA Qualifiers: (6) Constipation Code(s): K59.00 - CONSTIPATION, UNSPECIFIED (7) Abdominal pain Assessment/Plan: -ct scan noted--GI follow up -xray no obstruction -us-fatty liver Code(s): R10.9 - UNSPECIFIED ABDOMINAL PAIN Qualifiers: Abdominal location: right upper quadrant Qualified Code(s): R10.11 - Right upper quadrant pain (8) Pancytopenia Assessment/Plan: hem consult noted--off flagyl id consult follow labs hem follow up Code(s): D61.818 - OTHER PANCYTOPENIA
[2017-11-22 09:04] LABS: ERYTHROCYTE SEDIMENTATION RATE 53 mm/hr (0-20)
[2017-11-22] MEDS: LIPASE/PROTEASE/AMYLASE 36,000 UNIT CAPSULE PO SCH ×3 (09:20→17:36)
[2017-11-22] MEDS: AMOXICILLIN 500 MG CAPSULE (FP) PO SCH ×2 (09:20→21:15)
[2017-11-22] MEDS: TAMSULOSIN HCL 0.4 MG CAP.ER.24H (FP) PO SCH (09:20)
--- NOTE | 2017-11-22 09:51 | PATH ---
Surgical Pathology Report Patient Name: EVELINA MORALES [facility]. Rec. #: [id number] /Age/Gender: 1935 (Age: 82) / M Account: [id number] Location: [address] [place] [address]/[facility] Taken: 11/20/2017 Received: 11/20/2017 Reported: 11/22/2017 Physicians: Kathryn Mcfarlane M.D. Specimen(s) Received PERIPHERAL BLOOD Clinical History Leukopenia Final Diagnosis Hematologic Myelodysplasia FISH Report performed and interpreted at [facility] in [place], [place] ([id number]) shows the following. INTERPRETATION: No evidence of deletion 5q or monosomy 5 is present. No evidence of deletion 7q or monosomy 7 is present. No evidence of trisomy 8 (+8) is present. No evidence of deletion 13q14 is present. No evidence of a rearrangement of 11q23. No evidence of a deletion of the p53 (17p13) locus. No evidence of deletion 20q12 is present. Comments: Correlation with pending cytogenetics ([id number]) is recommended. See Emerge report for details([id number]). Electronically Signed Daniela Ramirez M.D. Addendum Reported: 11/26/2017 Addendum Diagnosis COMPREHENSIVE FLOW CYTOMETRY [facility] [place] ([id number]) INTERPRETATION: The atypical flow cytometric findings seen. See Emerge report for details ([id number]). Daniela Ramirez M.D. Addendum Reported: 11/27/2017 Addendum Diagnosis CYTOGENETIC K[facility]YS[facility] ([id number][facility] shows the following: TEST RESULTS: Tissue Culture Failure DIAGNOSTIC INTERPRETATION: This unstimulated peripheral blood specimen did not produce any analyzable metaphase cells and, therefore, chromosome analysis is not possible. A bone marrow aspirate, when clinically appropriate, is recommended. See Emerge report for additional details ([id number]) Daniela Ramirez M.D.
--- NOTE | 2017-11-22 10:03 | PN ---
Progress Note (short form) - Note Progress Note: Pt seen and examined Appears lethargic and in abdominal pain. Constitutional: Yes:in pain Eyes: Yes: WNL, Conjunctiva Clear, EOM Intact HENT: Yes: WNL, Atraumatic, Normocephalic Neck: Yes: Supple, Trachea Midline Cardiovascular: Yes: Regular Rate and Rhythm, S1, S2 Respiratory: Yes: Regular, CTA Bilaterally Gastrointestinal: obese, +Tenderness (RUQ). Neurological: Yes: alert, but fatigued Psychiatric: Yes: Alert Last Vital Signs Temp Pulse Resp BP Pulse Ox 98.8 F 62 16 126/61 95 11/22/17 06:00 11/22/17 06:00 11/22/17 06:00 11/22/17 06:00 11/21/17 20:43 CBC, BMP 11/22/17 05:35 11/22/17 05:35 Current Medications Generic Name Dose Route Start Last Admin Trade Name Freq PRN Reason Stop Dose Admin Acetaminophen 650 mg 11/11/17 20:22 11/21/17 21:16 Tylenol - PO 650 mg Q6H PRN Administration PAIN LEVEL 1 - 3 Alprazolam 0.25 mg 11/16/17 23:15 11/21/17 21:47 Xanax - PO Not Given BID MANAN Amoxicillin 500 mg 11/09/17 22:00 11/22/17 09:20 Amoxicillin - PO 500 mg BID MANAN Administration Apixaban 5 mg 11/09/17 22:00 11/21/17 21:15 Eliquis - PO 5 mg BID MANAN Administration Atorvastatin Calcium 80 mg 11/09/17 22:00 11/21/17 21:15 Lipitor - PO 80 mg HS MANAN Administration Carvedilol 6.25 mg 11/15/17 10:00 11/21/17 21:47 Coreg - PO Not Given BID MANAN Clotrimazole 1 applic 11/09/17 22:00 11/21/17 21:47 Lotrisone Cream (Small Tube) TP 1 applic BID [facility]N Administration Docusate Sodium 100 mg 11/10/17 10:00 11/21/17 10:53 Colace - PO Not Given DAILY [facility]N Duloxetine HCl 60 mg 11/11/17 10:00 11/21/17 10:51 Cymbalta - PO 60 mg DAILY [facility]N Administration Folic Acid 1 mg 11/10/17 10:00 11/21/17 10:52 Folic Acid - PO 1 mg DAILY [facility] Administration Furosemide 60 mg 11/15/17 10:00 11/22/17 07:10 Lasix - PO 60 mg BIDLASIX MANAN Administration Gabapentin 100 mg 11/09/17 22:00 11/21/17 21:15 Neurontin - PO 100 mg BID MANAN Administration Insulin Aspart 1 vial 11/09/17 22:00 11/22/17 06:38 Novolog Vial Sliding Scale - SQ Not Given ACHS [facility] Protocol Insulin Detemir 25 units 11/09/17 22:00 11/22/17 06:38 Levemir Vial SQ Not Given BID@0700,2200 [facility] Isosorbide Mononitrate 30 mg 11/12/17 10:45 11/21/17 10:52 Imdur - PO 30 mg DAILY [facility] Administration Levothyroxine Sodium 125 mcg/ 175 mcg 11/10/17 07:00 11/22/17 07:10 Levothyroxine Sodium 50 mcg PO 175 mcg DAILY@0700 [facility] Administration Lisinopril 5 mg 11/12/17 10:45 11/21/17 10:51 Prinivil PO 5 mg DAILY [facility] Administration Loratadine 10 mg 11/10/17 10:00 11/21/17 10:53 Claritin - PO 10 mg DAILY [facility] Administration Metoclopramide HCl 5 mg 11/14/17 07:00 11/22/17 07:10 Reglan - PO 5 mg TIDAC MANAN Administration Montelukast Sodium 10 mg 11/10/17 10:00 11/21/17 10:51 Singulair - PO 10 mg DAILY [facility] Administration Pancrelipase 1 cap 11/14/17 08:00 11/22/17 09:20 Cretorri Hayes 36,000 Units Capsule PO 1 cap TIDCM [facility] Administration Polyethylene Glycol 34 gm 11/13/17 22:00 11/21/17 21:47 Miralax (For Daily Use) - PO Not Given BID [facility] Potassium Chloride 20 meq 11/10/17 10:00 11/21/17 10:51 K-Dur - PO 20 meq DAILY [facility] Administration Ranitidine HCl 150 mg 11/22/17 10:00 Zantac - PO BID [facility]NA[facility] Spironolactone 25 mg 11/10/17 10:00 11/21/17 10:51 Aldactone - PO 25 mg DAILY [facility] Administration Tamsulosin HCl 0.4 mg 11/10/17 08:30 11/22/17 09:20 Flomax - PO 0.4 mg 0830 [facility] Administration Tramadol HCl 50 mg 11/21/17 17:26 11/22/17 03:35 Ultram - PO 50 mg Q8H PRN Administration PAIN LEVEL 7 - 10 Vancomycin HCl 125 mg 11/20/17 18:00 11/22/17 07:11 Vancomycin Oral Solution PO 125 mg Q6HPO [facility] Administration chart reviewed in detail platelets trending down, do think its an acute component , meds( changes made were acknowledged) , infection (?Source abd), would take time for the marrow to recover. No evidence of hemolysis. Peripheral blood flow negative. would also consider slowing on tramadol. In the interim, due to his clinical condition, ordered stat coags, lactic acid, blood cultures, repeat Abd imaging as ordered previously was awaited. Unclear the reason for his abd pain. monitor cr. elevated INR ,likely poor po intake will follow closely d/w RN.
[2017-11-22] MEDS: LORATADINE 10 MG TABLET PO SCH (10:59)
[2017-11-22] MEDS: DULoxetine HCL 30 MG CAPSULE.DR (FP) PO SCH (10:59)
[2017-11-22] MEDS: DOCUSATE SODIUM 100 MG CAPSULE (FP) PO SCH (11:00)
[2017-11-22] MEDS: RANITIDINE HCL 150 MG TABLET (FP) PO SCH ×2 (11:00→21:15)
[2017-11-22] MEDS: GABAPENTIN 100 MG CAPSULE (FP) PO SCH ×2 (11:00→21:16)
[2017-11-22] MEDS: POTASSIUM CHLORIDE TABS 20 MEQ TABLET.ER (FP) PO SCH (11:00)
[2017-11-22] MEDS: APIXABAN 5 MG TABLET PO SCH ×2 (11:00→21:16)
[2017-11-22] MEDS: ALPRAZolam 0.25 MG TABLET PO SCH ×3 (11:00→21:16)
[2017-11-22] MEDS: SPIRONOLACTONE 25 MG TABLET (FP) PO SCH (11:01)
[2017-11-22] MEDS: MONTELUKAST NA 10 MG TABLET PO SCH (11:01)
[2017-11-22] MEDS: ISOSORBIDE MONONITRATE 30 MG TAB.SR.24H (FP) PO SCH (11:01)
[2017-11-22] MEDS: FOLIC ACID 1 MG TABLET (FP) PO SCH (11:01)
[2017-11-22] MEDS: CLOTRIMAZOLE/BETAMET DIPROP 15 GM TUBE TP SCH ×2 (11:02→21:17)
[2017-11-22] MEDS: CARVEDILOL 3.125 MG TABLET (FP) PO SCH ×2 (11:02→21:16)
[2017-11-22] MEDS: POLYETHYLENE GLYCOL 3350 119 GM BTL PO SCH ×2 (11:02→21:17)
[2017-11-22] MEDS: LISINOPRIL 5 MG TABLET (FP) PO SCH (11:03)
[2017-11-22 11:47] LABS: INR 1.47 (0.82-1.09); PROTHROMBIN TIME (PATIENT) 16.6 SEC (9.98-11.88)
[2017-11-22] MEDS ORDERED: CEFTRIAXONE IN IS-OSM DEXTROSE 2 GM/50 ML BAG IVPB ONE (14:45)
[2017-11-22 14:53] LABS: ARTERIAL BLD GAS O2 SATURATION 98.6 % (90-98.9); ARTERIAL BLOOD GAS BASE EXCESS -1.6 meq/l (-2-2); ARTERIAL BLOOD GAS PCO2 34.1 mmHg (35-45); ARTERIAL BLOOD GAS pH 7.42 (7.35-7.45)
[2017-11-22 14:59] LABS: ALLENS TEST POSITIVE
[2017-11-22 15:42] LABS: URINE APPEARANCE SLCLOUDY; URINE BILIRUBIN NEGATIVE (NEGATIVE); URINE BLOOD NEGATIVE (NEGATIVE); URINE COLOR LTYELLOW; URINE GLUCOSE (UA) NEGATIVE (NEGATIVE); URINE KETONE NEGATIVE (NEGATIVE); URINE LEUK ESTERASE NEGATIVE (NEGATIVE); URINE NITRITE NEGATIVE (NEGATIVE); URINE PROTEIN NEGATIVE (NEGATIVE); URINE UROBILINOGEN NEGATIVE mg/dL (0.2-1.0)
--- NOTE | 2017-11-22 15:42 | PN ---
Progress Note, Physician History of Present Illness: Patient continues to spike low grade temperatures. Patient with abdominal pain, improved from prior. Diarrhea has resolved. Patient still pancytopenic. - Current Medication List Current Medications: Active Medications Acetaminophen (Tylenol -) 650 mg PO Q6H PRN PRN Reason: PAIN LEVEL 1 - 3 Last Admin: 11/21/17 21:16 Dose: 650 mg Alprazolam (Xanax -) 0.25 mg PO BID ON [facility] Last Admin: 11/22/17 11:04 Dose: Not Given Amoxicillin (Amoxicillin -) 500 mg PO BID [facility] Last Admin: 11/22/17 09:20 Dose: 500 mg Apixaban (Eliquis -) 5 mg PO BID [facility] Last Admin: 11/22/17 11:00 Dose: 5 mg Atorvastatin Calcium (Lipitor -) 80 mg PO HS [facility] Last Admin: 11/21/17 21:15 Dose: 80 mg Carvedilol (Coreg -) 6.25 mg PO BID [facility] Last Admin: 11/22/17 11:02 Dose: 6.25 mg Clotrimazole (Lotrisone Cream (Small Tube)) 1 applic TP BID [facility] Last Admin: 11/22/17 11:02 Dose: 1 applic Docusate Sodium (Colace -) 100 mg PO DAILY [facility] Last Admin: 11/22/17 11:00 Dose: 100 mg Duloxetine HCl (Cymbalta -) 60 mg PO DAILY [facility] Last Admin: 11/22/17 10:59 Dose: 60 mg Folic Acid (Folic Acid -) 1 mg PO DAILY [facility] Last Admin: 11/22/17 11:01 Dose: 1 mg Furosemide (Lasix -) 60 mg PO BIDLASIX [facility] Last Admin: 11/22/17 14:01 Dose: 60 mg Gabapentin (Neurontin -) 100 mg PO BID [facility] Last Admin: 11/22/17 11:00 Dose: 100 mg Insulin Aspart (Novolog Vial Sliding Scale -) 1 vial SQ ACHS [facility] PRN Reason: Protocol Last Admin: 11/22/17 11:10 Dose: Not Given Insulin Detemir (Levemir Vial) 25 units SQ BID@0700,2200 [facility] Last Admin: 11/22/17 06:38 Dose: Not Given Isosorbide Mononitrate (Imdur -) 30 mg PO DAILY [facility] Last Admin: 11/22/17 11:01 Dose: 30 mg Levothyroxine Sodium 125 mcg/ (Levothyroxine Sodium 50 mcg) 175 mcg PO DAILY@ 0700 [facility] Last Admin: 11/22/17 07:10 Dose: 175 mcg Lisinopril (Prinivil) 5 mg PO DAILY [facility] Last Admin: 11/22/17 11:03 Dose: 5 mg Loratadine (Claritin -) 10 mg PO DAILY [facility] Last Admin: 11/22/17 10:59 Dose: 10 mg Metoclopramide HCl (Reglan -) 5 mg PO TIDAC [facility] Last Admin: 11/22/17 11:01 Dose: 5 mg Montelukast Sodium (Singulair -) 10 mg PO DAILY [facility] Last Admin: 11/22/17 11:01 Dose: 10 mg Pancrelipase (Creon Dr 36,000 Units Capsule) 1 cap PO TIDCM [facility] Last Admin: 11/22/17 12:02 Dose: 1 cap Polyethylene Glycol (Miralax (For Daily Use) -) 34 gm PO BID [facility] Last Admin: 11/22/17 11:02 Dose: 17 grams Potassium Chloride (K-Dur -) 20 meq PO DAILY [facility] Last Admin: 11/22/17 11:00 Dose: 20 meq Ranitidine HCl (Zantac -) 150 mg PO BID [facility] Last Admin: 11/22/17 11:00 Dose: 150 mg Spironolactone (Aldactone -) 25 mg PO DAILY [facility] Last Admin: 11/22/17 11:01 Dose: 25 mg Tamsulosin HCl (Flomax -) 0.4 mg PO 0830 [facility] Last Admin: 11/22/17 09:20 Dose: 0.4 mg Tramadol HCl (Ultram -) 50 mg PO Q8H PRN PRN Reason: PAIN LEVEL 7 - 10 Last Admin: 11/22/17 11:01 Dose: 50 mg Vancomycin HCl (Vancomycin Oral Solution) 125 mg PO Q6HPO [facility] Last Admin: 11/22/17 12:01 Dose: 125 mg - Objective Vital Signs: Vital Signs Temperature 99.5 F 11/22/17 13:53 Pulse Rate 74 11/22/17 13:53 Respiratory Rate 16 11/22/17 13:53 Blood Pressure 103/57 11/22/17 13:53 O2 Sat by Pulse Oximetry (%) 98 11/22/17 09:00 Constitutional: Yes: Calm Eyes: Yes: WNL, Conjunctiva Clear, EOM Intact HENT: Yes: WNL, Atraumatic, Normocephalic Neck: Yes: Supple, Trachea Midline Cardiovascular: Yes: Regular Rate and Rhythm, S1, S2 Respiratory: Yes: Regular, mild crackles at bases Gastrointestinal: Yes: Soft, Abdomen, Obese, Tenderness (RUQ), Distended. No: Hepatomegaly, Splenomegaly Edema: No Neurological: Yes: Alert, Oriented Psychiatric: Yes: Alert, Oriented Labs: CBC, BMP 11/22/17 05:35 11/22/17 05:35 INR, PTT INR 1.47 (0.82-1.09) H 11/22/17 11:10 Fibrinogen 324.0 mg/dL (238-498) 11/22/17 11:10 Assessment/Plan Assessment: 1. Pancytopenia, of unknown etiology 2. Possible viral syndrome 3. Abdominal pain Plan: - F/u new cx (11/22) - old cx ngtd - CMV negative - Continue po vanco - Recommend GI evaluation
--- NOTE | 2017-11-22 17:07 | PN ---
Teaching Attending Note Name of Resident: Darin Loza ATTENDING PHYSICIAN STATEMENT I saw and evaluated the patient. I reviewed the resident's note and discussed the case with the resident. I agree with the resident's findings and plan as documented. SUBJECTIVE: Low grade temp Still with abdominal pain No diarrhea Remains pancytopenic OBJECTIVE: Weak appearing Cor S1S2 Lungs clear Abdomen obese, soft, distended non-tender ASSESSMENT AND PLAN: Panytopenia Abdominal pain/ diarrhea ? viral syndrome Chronically infected L LE hardware Continue po vancomycin GI evaluation
--- NOTE | 2017-11-22 21:08 | CONSULT ---
Consult - text type - Consultation Consultation Note: NEUROLOGY CONSULTATION is greatly appreciated: This 82 yo man with h/o HTN, DM, Chol, hypothyroidism, ASHD, CHF, AFib, S/P PPM and diverticular disease, s/p partial colectomy, was admitted with SOB. On multiple medications including Eliquis. s/p left Tib-fib fracture (07/09) requiring ORIF, complicated by osteomyelitis. Seen by me here in with confusion. Although he had signs of chronic OMS and significant atrophy on CT, his TSH was 27.1 and his OMS improved on T4. Since admission he has been treated for presumed infection. On IV Morphine 11/21-11/22 for abdominal pain with increasing confusion. CT of head (reviewed): Moderately severe, diffuse atrophy with ex vacuo hydrocephalus and diffuse microvascular changes. GREGORY: Obese. neck supple. deep productive cough. No bruits. s/p PPM. s/p left ankle sx. Cor irreg. NEURO: Awake, alert, cooperative. Ox [facility], [place], December 2003. Trump. Recalls 0 of 3 @ 3 mins ++ Glabella, snout, suck, root Full shafer and EOM's. Gag OK No drift. ++ Myoclonus/asterixis. Symmetrical grasps. Depressed reflexes. Absent AJ's. Plantars silent. No obvious dystaxia Reduced vibration in feet is likely but pt withdraws all fours to pinch. IMP: Non-focal exam sig for moderately severe, Bilateral, cerebral dysfunction ( OMS, chronic features). Myoclonus/asterixis supports a Toxic-metabolic encephalopathy as a cause of worsening confusion. SUGGEST: Check B12, TSH, T4, Vanomycin level, ammonia level. D/C gabapentin, reglan Avoid narcotic anlgesics. Thank you very much, Fan Hinton MD
[2017-11-22] MEDS: ATORVASTATIN CA 80 MG TABLET (FP) PO SCH (21:15)
[2017-11-23] MEDS ORDERED: LEVOTHYROXINE NA 125 MCG TABLET (FP) ONE (06:32)
[2017-11-23] MEDS ORDERED: LEVOTHYROXINE NA 50 MCG TABLET (FP) ONE (06:32)
[2017-11-23] MEDS: LEVOTHYROXINE 125 MCG, LEVOTHYROXINE 50 MCG PO SCH (06:51)
[2017-11-23] MEDS: VANCOMYCIN 250 MG/5 ML ORAL SOLUTION PO SCH ×4 (06:51→23:11)
[2017-11-23] MEDS: FUROSEMIDE 20 MG TABLET (FP) PO SCH ×2 (06:53→13:14)
[2017-11-23] MEDS: INSULIN SLIDING SCALE (NOVOLOG) 1 VIAL SQ SCH ×4 (06:54→21:10)
[2017-11-23] MEDS: INSULIN DETEMIR 100 UNITS/ML MDV SQ SCH ×2 (06:54→21:09)
[2017-11-23] MEDS ORDERED: INSULIN (NOVOLOG) ASPART 100 UNITS/ML 10ML VIAL ONE (07:01)
[2017-11-23 07:05] LABS: EOS % 3.5 % (0-4.5); HEMATOCRIT 28.5 % (35.4-49); HEMOGLOBIN 9.3 GM/dL (11.7-16.9); LYMPH % 14.6 % (8-40); MCH 27.9 pg (25.7-33.7); MCHC 32.8 g/dl (32.0-35.9); MEAN CELL VOLUME 85.2 fl (80-96); MEAN PLT VOLUME 11.2 fl (7.5-11.1); NEUT % 69.9 % (42.8-82.8); PLATELET COUNT 91 K/MM3 (134-434); RBC 3.34 M/mm3 (4.00-5.60); RDW 15.9 % (11.9-15.9); WHITE BLOOD COUNT 3.6 K/mm3 (4.0-10.0)
[2017-11-23 08:14] LABS: ALBUMIN 2.6 g/dl (3.4-5.0); ANION GAP 8 (8-16); BLOOD UREA NITROGEN 39 mg/dL (7-18); CALCIUM 7.2 mg/dL (8.5-10.1); CHLORIDE 103 mmol/L (98-107); CO2 24 mmol/L (21-32); GLUCOSE,RANDOM 232 mg/dL (74-106); SODIUM 135 mmol/L (136-145)
[2017-11-23 08:27] LABS: ALK PHOS 81 U/L (45-117); BILIRUBIN,TOTAL 0.5 mg/dL (0.2-1.0); CREATININE 1.7 mg/dL (0.7-1.3); SGOT/AST 20 U/L (15-37); SGPT/ALT 18 U/L (12-78); TOT PROT 5.8 g/dl (6.4-8.2)
[2017-11-23 08:40] LABS: MAGNESIUM 1.4 mg/dL (1.8-2.4)
[2017-11-23] MEDS ORDERED: PT OWN MED DRAWER 7, Y5N ONE ×2 (08:57→20:54)
[2017-11-23] MEDS: TAMSULOSIN HCL 0.4 MG CAP.ER.24H (FP) PO SCH (09:04)
[2017-11-23] MEDS: LIPASE/PROTEASE/AMYLASE 36,000 UNIT CAPSULE PO SCH ×3 (09:04→17:37)
[2017-11-23] MEDS: ALPRAZolam 0.25 MG TABLET PO SCH (10:01)
[2017-11-23] MEDS: DOCUSATE SODIUM 100 MG CAPSULE (FP) PO SCH (10:01)
[2017-11-23] MEDS: ISOSORBIDE MONONITRATE 30 MG TAB.SR.24H (FP) PO SCH (10:02)
[2017-11-23] MEDS: LISINOPRIL 5 MG TABLET (FP) PO SCH (10:02)
[2017-11-23] MEDS: AMOXICILLIN 500 MG CAPSULE (FP) PO SCH ×2 (10:02→21:08)
[2017-11-23] MEDS: DULoxetine HCL 30 MG CAPSULE.DR (FP) PO SCH (10:02)
[2017-11-23] MEDS: MONTELUKAST NA 10 MG TABLET PO SCH (10:02)
[2017-11-23] MEDS: POTASSIUM CHLORIDE TABS 20 MEQ TABLET.ER (FP) PO SCH (10:02)
[2017-11-23] MEDS: CARVEDILOL 3.125 MG TABLET (FP) PO SCH (10:03)
[2017-11-23] MEDS: FOLIC ACID 1 MG TABLET (FP) PO SCH (10:03)
[2017-11-23] MEDS: RANITIDINE HCL 150 MG TABLET (FP) PO SCH ×2 (10:03→21:10)
[2017-11-23] MEDS: LORATADINE 10 MG TABLET PO SCH (10:03)
[2017-11-23] MEDS: APIXABAN 5 MG TABLET PO SCH ×2 (10:03→21:09)
[2017-11-23] MEDS: SPIRONOLACTONE 25 MG TABLET (FP) PO SCH (10:03)
[2017-11-23] MEDS: POLYETHYLENE GLYCOL 3350 119 GM BTL PO SCH ×2 (10:04→21:10)
[2017-11-23] MEDS: CLOTRIMAZOLE/BETAMET DIPROP 15 GM TUBE TP SCH ×2 (10:04→21:09)
--- NOTE | 2017-11-23 10:35 | PN ---
Progress Note, Physician History of Present Illness: C/O ABDOMINAL PAIN DIARRHEA - Current Medication List Current Medications: Active Medications Acetaminophen (Tylenol -) 650 mg PO Q6H PRN PRN Reason: PAIN LEVEL 1 - 3 Last Admin: 11/21/17 21:16 Dose: 650 mg Alprazolam (Xanax -) 0.25 mg PO BID [facility] Last Admin: 11/23/17 10:01 Dose: 0.25 mg Amoxicillin (Amoxicillin -) 500 mg PO BID [facility] Last Admin: 11/23/17 10:02 Dose: 500 mg Apixaban (Eliquis -) 5 mg PO BID [facility] Last Admin: 11/23/17 10:03 Dose: 5 mg Atorvastatin Calcium (Lipitor -) 80 mg PO HS [facility] Last Admin: 11/22/17 21:15 Dose: 80 mg Carvedilol (Coreg -) 6.25 mg PO BID [facility] Last Admin: 11/23/17 10:03 Dose: 6.25 mg Clotrimazole (Lotrisone Cream (Small Tube)) 1 applic TP BID [facility] Last Admin: 11/23/17 10:04 Dose: 1 applic Docusate Sodium (Colace -) 100 mg PO DAILY [facility] Last Admin: 11/23/17 10:01 Dose: 100 mg Duloxetine HCl (Cymbalta -) 60 mg PO DAILY [facility] Last Admin: 11/23/17 10:02 Dose: 60 mg Folic Acid (Folic Acid -) 1 mg PO DAILY [facility] Last Admin: 11/23/17 10:03 Dose: 1 mg Furosemide (Lasix -) 60 mg PO BIDLASIX [facility] Last Admin: 11/23/17 06:53 Dose: 60 mg Insulin Aspart (Novolog Vial Sliding Scale -) 1 vial SQ [facility] PRN Reason: Protocol Last Admin: 11/23/17 06:54 Dose: 2 units Insulin Detemir (Levemir Vial) 25 units SQ BID@0700,2200 [facility] Last Admin: 11/23/17 06:54 Dose: 25 units Isosorbide Mononitrate (Imdur -) 30 mg PO DAILY [facility] Last Admin: 11/23/17 10:02 Dose: 30 mg Levothyroxine Sodium 125 mcg/ (Levothyroxine Sodium 50 mcg) 175 mcg PO DAILY@ 0700 [facility] Last Admin: 11/23/17 06:51 Dose: 175 mcg Lisinopril (Prinivil) 5 mg PO DAILY [facility] Last Admin: 11/23/17 10:02 Dose: 5 mg Loratadine (Claritin -) 10 mg PO DAILY [facility] Last Admin: 11/23/17 10:03 Dose: 10 mg Montelukast Sodium (Singulair -) 10 mg PO DAILY [facility] Last Admin: 11/23/17 10:02 Dose: 10 mg Pancrelipase (Creon Dr 36,000 Units Capsule) 1 cap PO TIDCM [facility] Last Admin: 11/23/17 09:04 Dose: 1 cap Polyethylene Glycol (Miralax (For Daily Use) -) 34 gm PO BID [facility] Last Admin: 11/23/17 10:04 Dose: 17 grams Potassium Chloride (K-Dur -) 20 meq PO DAILY [facility] Last Admin: 11/23/17 10:02 Dose: Not Given Ranitidine HCl (Zantac -) 150 mg PO BID [facility] Last Admin: 11/23/17 10:03 Dose: 150 mg Spironolactone (Aldactone -) 25 mg PO DAILY [facility] Last Admin: 11/23/17 10:03 Dose: 25 mg Tamsulosin HCl (Flomax -) 0.4 mg PO 0830 [facility] Last Admin: 11/23/17 09:04 Dose: 0.4 mg Tramadol HCl (Ultram -) 50 mg PO Q8H PRN PRN Reason: PAIN LEVEL 7 - 10 Last Admin: 11/22/17 11:01 Dose: 50 mg Vancomycin HCl (Vancomycin Oral Solution) 125 mg PO Q6HPO [facility] Last Admin: 11/23/17 06:51 Dose: 125 mg - Objective Vital Signs: Vital Signs Temperature 98.1 F 11/23/17 09:43 Pulse Rate 82 11/23/17 09:43 Respiratory Rate 18 11/23/17 09:43 Blood Pressure 101/41 11/23/17 09:43 O2 Sat by Pulse Oximetry (%) 97 11/23/17 09:00 Cardiovascular: Yes: S1, S2 Respiratory: Yes: Regular, CTA Bilaterally Gastrointestinal: Yes: Normal Bowel Sounds, Soft. No: Tenderness Labs: CBC, BMP 11/23/17 05:35 11/23/17 05:35 INR, PTT INR 1.47 (0.82-1.09) H 11/22/17 11:10 Fibrinogen 324.0 mg/dL (238-498) 11/22/17 11:10 Problem List - Problems (1) Chest pain Code(s): R07.9 - CHEST PAIN, UNSPECIFIED Qualifiers: Chest pain type: unspecified Qualified Code(s): R07.9 - Chest pain, unspecified (2) CAD (coronary artery disease) Code(s): I25.10 - ATHSCL HEART DISEASE OF [place] CORONARY ARTERY W/O ANG PCTRS Qualifiers: Coronary Disease-Associated Artery/Lesion type: unspecified vessel or lesion type [place] vs. transplanted heart: [place] heart Associated angina: angina presence unspecified Qualified Code(s): I25.10 - Atherosclerotic heart disease of [place] coronary artery without angina pectoris (3) CHF (congestive heart failure) Assessment/Plan: -improving -PO LASIX -MONITOR LYTES Code(s): I50.9 - HEART FAILURE, UNSPECIFIED Qualifiers: Heart failure type: systolic Heart failure chronicity: acute on chronic Qualified Code(s): I50.23 - Acute on chronic systolic (congestive) heart failure (4) COPD (chronic obstructive pulmonary disease) Assessment/Plan: NEBS Code(s): J44.9 - CHRONIC OBSTRUCTIVE PULMONARY DISEASE, UNSPECIFIED (5) Diabetes mellitus, insulin dependent (IDDM), uncontrolled Assessment/Plan: INSULIN BGM Code(s): E10.65 - TYPE 1 DIABETES MELLITUS WITH HYPERGLYCEMIA Qualifiers: (6) Constipation Assessment/Plan: -DULCOLOX -INCREASE MIRALAX -GI consult noted and appreciated Code(s): K59.00 - CONSTIPATION, UNSPECIFIED (7) Abdominal pain Assessment/Plan: -ct scan noted--GI follow up -xray no obstruction -us-fatty liver Code(s): R10.9 - UNSPECIFIED ABDOMINAL PAIN Qualifiers: Abdominal location: right upper quadrant Qualified Code(s): R10.11 - Right upper quadrant pain (8) Pancytopenia Assessment/Plan: hem consult noted--off flagyl improving id consult follow labs hem follow up Code(s): D61.818 - OTHER PANCYTOPENIA (9) Change in mental state Assessment/Plan: improved today w/u negative Code(s): R41.82 - ALTERED MENTAL STATUS, UNSPECIFIED
[2017-11-23] MEDS ORDERED: MAGNESIUM 2GM/50ML STERILE WATER IVPB IVPB ONE ×2 (10:45→11:16)
[2017-11-23] MEDS: traMADol HCL 50 MG TABLET PO PRN (10:57)
--- NOTE | 2017-11-23 11:10 | PN ---
Progress Note, Physician History of Present Illness: Patient has been afebrile. Abdominal pain still present. Diarrhea has resolved. Patient's wbc mildly improved. - Current Medication List Current Medications: Active Medications Acetaminophen (Tylenol -) 650 mg PO Q6H PRN PRN Reason: PAIN LEVEL 1 - 3 Last Admin: 11/21/17 21:16 Dose: 650 mg Alprazolam (Xanax -) 0.25 mg PO BID [facility] Last Admin: 11/23/17 10:01 Dose: 0.25 mg Amoxicillin (Amoxicillin -) 500 mg PO BID [facility] Last Admin: 11/23/17 10:02 Dose: 500 mg Apixaban (Eliquis -) 5 mg PO BID [facility] Last Admin: 11/23/17 10:03 Dose: 5 mg Atorvastatin Calcium (Lipitor -) 80 mg PO HS [facility] Last Admin: 11/22/17 21:15 Dose: 80 mg Carvedilol (Coreg -) 6.25 mg PO BID [facility] Last Admin: 11/23/17 10:03 Dose: 6.25 mg Clotrimazole (Lotrisone Cream (Small Tube)) 1 applic TP BID [facility] Last Admin: 11/23/17 10:04 Dose: 1 applic Docusate Sodium (Colace -) 100 mg PO DAILY [facility] Last Admin: 11/23/17 10:01 Dose: 100 mg Duloxetine HCl (Cymbalta -) 60 mg PO DAILY [facility] Last Admin: 11/23/17 10:02 Dose: 60 mg Folic Acid (Folic Acid -) 1 mg PO DAILY [facility] Last Admin: 11/23/17 10:03 Dose: 1 mg Furosemide (Lasix -) 60 mg PO BIDLASIX [facility] Last Admin: 11/23/17 06:53 Dose: 60 mg Insulin Aspart (Novolog Vial Sliding Scale -) 1 vial SQ ACHS [facility] PRN Reason: Protocol Last Admin: 11/23/17 06:54 Dose: 2 units Insulin Detemir (Levemir Vial) 25 units SQ BID@0700,2200 [facility] Last Admin: 11/23/17 06:54 Dose: 25 units Isosorbide Mononitrate (Imdur -) 30 mg PO DAILY [facility] Last Admin: 11/23/17 10:02 Dose: 30 mg Levothyroxine Sodium 125 mcg/ (Levothyroxine Sodium 50 mcg) 175 mcg PO DAILY@ 0700 [facility] Last Admin: 11/23/17 06:51 Dose: 175 mcg Lisinopril (Prinivil) 5 mg PO DAILY [facility] Last Admin: 11/23/17 10:02 Dose: 5 mg Loratadine (Claritin -) 10 mg PO DAILY [facility] Last Admin: 11/23/17 10:03 Dose: 10 mg Montelukast Sodium (Singulair -) 10 mg PO DAILY [facility] Last Admin: 11/23/17 10:02 Dose: 10 mg Pancrelipase (Creon Dr 36,000 Units Capsule) 1 cap PO TIDCM [facility] Last Admin: 11/23/17 09:04 Dose: 1 cap Polyethylene Glycol (Miralax (For Daily Use) -) 34 gm PO BID [facility] Last Admin: 11/23/17 10:04 Dose: 17 grams Potassium Chloride (K-Dur -) 20 meq PO DAILY [facility] Last Admin: 11/23/17 10:02 Dose: Not Given Ranitidine HCl (Zantac -) 150 mg PO BID [facility] Last Admin: 11/23/17 10:03 Dose: 150 mg Spironolactone (Aldactone -) 25 mg PO DAILY [facility] Last Admin: 11/23/17 10:03 Dose: 25 mg Tamsulosin HCl (Flomax -) 0.4 mg PO 0830 [facility] Last Admin: 11/23/17 09:04 Dose: 0.4 mg Tramadol HCl (Ultram -) 50 mg PO Q8H PRN PRN Reason: PAIN LEVEL 7 - 10 Last Admin: 11/23/17 10:57 Dose: 50 mg Vancomycin HCl (Vancomycin Oral Solution) 125 mg PO Q6HPO [facility] Last Admin: 11/23/17 06:51 Dose: 125 mg - Objective Vital Signs: Vital Signs Temperature 98.1 F 11/23/17 09:43 Pulse Rate 82 11/23/17 09:43 Respiratory Rate 18 11/23/17 09:43 Blood Pressure 101/41 11/23/17 09:43 O2 Sat by Pulse Oximetry (%) 97 11/23/17 09:00 Constitutional: Yes: Calm Eyes: Yes: WNL, Conjunctiva Clear, EOM Intact HENT: Yes: WNL, Atraumatic, Normocephalic Neck: Yes: Supple, Trachea Midline Cardiovascular: Yes: Regular Rate and Rhythm, S1, S2 Respiratory: Yes: Regular, mild crackles at bases Gastrointestinal: Yes: Soft, Abdomen, Obese, Tenderness (RUQ), Distended. No: Hepatomegaly, Splenomegaly Edema: No Neurological: Yes: Alert, Oriented Psychiatric: Yes: Alert, Oriented Labs: CBC, BMP 11/23/17 05:35 11/23/17 05:35 INR, PTT INR 1.47 (0.82-1.09) H 11/22/17 11:10 Fibrinogen 324.0 mg/dL (238-498) 11/22/17 11:10 Assessment/Plan Assessment: 1. Pancytopenia, of unknown etiology 2. Possible viral syndrome 3. Abdominal pain Plan: - F/u new cx (11/22) - old cx ngtd - CMV negative - Continue po vanco - Awaiting GI evaluation
[2017-11-23] MEDS ORDERED: MAGNESIUM CITRATE 300 ML BOTTLE PO ONE (17:06)
--- NOTE | 2017-11-23 17:12 | PN ---
Progress Note, Physician History of Present Illness: Abdominal pain less however patient continue to have constipation and mild abdominal distention, patient was seen with his . He appears to have a somnulent affect. - Current Medication List Current Medications: Active Medications Acetaminophen (Tylenol -) 650 mg PO Q6H PRN PRN Reason: PAIN LEVEL 1 - 3 Last Admin: 11/21/17 21:16 Dose: 650 mg Alprazolam (Xanax -) 0.25 mg PO BID [facility] Last Admin: 11/23/17 10:01 Dose: 0.25 mg Amoxicillin (Amoxicillin -) 500 mg PO BID [facility] Last Admin: 11/23/17 10:02 Dose: 500 mg Apixaban (Eliquis -) 5 mg PO BID [facility] Last Admin: 11/23/17 10:03 Dose: 5 mg Atorvastatin Calcium (Lipitor -) 80 mg PO HS [facility] Last Admin: 11/22/17 21:15 Dose: 80 mg Carvedilol (Coreg -) 6.25 mg PO BID [facility] Last Admin: 11/23/17 10:03 Dose: 6.25 mg Clotrimazole (Lotrisone Cream (Small Tube)) 1 applic TP BID [facility] Last Admin: 11/23/17 10:04 Dose: 1 applic Docusate Sodium (Colace -) 100 mg PO DAILY [facility] Last Admin: 11/23/17 10:01 Dose: 100 mg Duloxetine HCl (Cymbalta -) 60 mg PO DAILY [facility] Last Admin: 11/23/17 10:02 Dose: 60 mg Folic Acid (Folic Acid -) 1 mg PO DAILY [facility] Last Admin: 11/23/17 10:03 Dose: 1 mg Furosemide (Lasix -) 60 mg PO BIDLASIX [facility] Last Admin: 11/23/17 13:14 Dose: 60 mg Insulin Aspart (Novolog Vial Sliding Scale -) 1 vial SQ ACHS [facility] PRN Reason: Protocol Last Admin: 11/23/17 16:53 Dose: 2 units Insulin Detemir (Levemir Vial) 25 units SQ BID@0700,2200 [facility] Last Admin: 11/23/17 06:54 Dose: 25 units Isosorbide Mononitrate (Imdur -) 30 mg PO DAILY [facility] Last Admin: 11/23/17 10:02 Dose: 30 mg Levothyroxine Sodium 125 mcg/ (Levothyroxine Sodium 50 mcg) 175 mcg PO DAILY@ 0700 [facility] Last Admin: 11/23/17 06:51 Dose: 175 mcg Lisinopril (Prinivil) 5 mg PO DAILY [facility] Last Admin: 11/23/17 10:02 Dose: 5 mg Loratadine (Claritin -) 10 mg PO DAILY [facility] Last Admin: 11/23/17 10:03 Dose: 10 mg Magnesium Citrate (Citroma -) 300 ml PO ONCE ONE Stop: 11/23/17 17:07 Montelukast Sodium (Singulair -) 10 mg PO DAILY [facility] Last Admin: 11/23/17 10:02 Dose: 10 mg Pancrelipase (Creon Dr 36,000 Units Capsule) 1 cap PO TIDCM [facility] Last Admin: 11/23/17 13:14 Dose: 1 cap Polyethylene Glycol (Miralax (For Daily Use) -) 34 gm PO BID [facility] Last Admin: 11/23/17 10:04 Dose: 17 grams Ranitidine HCl (Zantac -) 150 mg PO BID [facility] Last Admin: 11/23/17 10:03 Dose: 150 mg Spironolactone (Aldactone -) 25 mg PO DAILY [facility] Last Admin: 11/23/17 10:03 Dose: 25 mg Tamsulosin HCl (Flomax -) 0.4 mg PO 0830 [facility] Last Admin: 11/23/17 09:04 Dose: 0.4 mg Tramadol HCl (Ultram -) 50 mg PO Q8H PRN PRN Reason: PAIN LEVEL 7 - 10 Last Admin: 11/23/17 10:57 Dose: 50 mg Vancomycin HCl (Vancomycin Oral Solution) 125 mg PO Q6HPO [facility] Last Admin: 11/23/17 13:14 Dose: 125 mg - Objective Vital Signs: Vital Signs Temperature 98.1 F 11/23/17 14:00 Pulse Rate 60 11/23/17 14:00 Respiratory Rate 20 11/23/17 14:00 Blood Pressure 113/55 11/23/17 14:00 O2 Sat by Pulse Oximetry (%) 97 11/23/17 09:00 CBC,CMP WBC 3.6 K/mm3 (4.0-10.0) L D 11/23/17 05:35 RBC 3.34 M/mm3 (4.00-5.60) L 11/23/17 05:35 Hgb 9.3 GM/dL (11.7-16.9) L 11/23/17 05:35 Hct 28.5 % (35.4-49) L 11/23/17 05:35 MCV 85.2 fl (80-96) 11/23/17 05:35 MCH 27.9 pg (25.7-33.7) 11/23/17 05:35 MCHC 32.8 g/dl (32.0-35.9) 11/23/17 05:35 RDW 15.9 % (11.9-15.9) 11/23/17 05:35 Plt Count 91 K/MM3 (134-434) L 11/23/17 05:35 MPV 11.2 fl (7.5-11.1) H 11/23/17 05:35 Neutrophils % 69.9 % (42.8-82.8) D 11/23/17 05:35 Lymphocytes % 14.6 % (8-40) D 11/23/17 05:35 Monocytes % 11.0 % (3.8-10.2) H 11/23/17 05:35 Eosinophils % 3.5 % (0-4.5) 11/23/17 05:35 Basophils % 1.0 % (0-2.0) 11/23/17 05:35 ESR 53 mm/hr (0-20) H 11/22/17 05:35 Sodium 135 mmol/L (136-145) L 11/23/17 05:35 Potassium 5.0 mmol/L (3.5-5.1) 11/23/17 05:35 Chloride 103 mmol/L (98-107) 11/23/17 05:35 Carbon Dioxide 24 mmol/L (21-32) 11/23/17 05:35 Anion Gap 8 (8-16) 11/23/17 05:35 BUN 39 mg/dL (7-18) H 11/23/17 05:35 Creatinine 1.7 mg/dL (0.7-1.3) H 11/23/17 05:35 Creat Clearance w eGFR 38.88 (>60) 11/23/17 05:35 POC Glucometer 269 UNITS (80-120) 11/23/17 11:49 Random Glucose 232 mg/dL (74-106) H D 11/23/17 05:35 Hemoglobin A1c % 10.6 % (4.8-6.0) H D 11/10/17 06:00 Lactic Acid 1.0 mmol/L (0.0-2.0) 11/22/17 11:10 Calcium 7.2 mg/dL (8.5-10.1) L 11/23/17 05:35 Phosphorus 3.4 mg/dL (2.5-4.9) 11/21/17 07:12 Magnesium 1.4 mg/dL (1.8-2.4) L 11/23/17 05:35 Total Bilirubin 0.5 mg/dL (0.2-1.0) 11/23/17 05:35 AST 20 U/L (15-37) 11/23/17 05:35 ALT 18 U/L (12-78) 11/23/17 05:35 Alkaline Phosphatase 81 U/L (45-117) 11/23/17 05:35 Ammonia 31.68 umol/L (11-32) 11/22/17 22:00 LD Total 211 U/L (87-241) D 11/22/17 11:10 Creatine Kinase 55 IU/L (39-308) 11/19/17 06:48 Troponin I 0.04 ng/ml (0.00-0.05) 11/19/17 06:48 C-Reactive Protein 2.6 MG/DL (0.00-0.3) H 11/22/17 05:35 B-Natriuretic Peptide 5140.73 pg/ml (5-450) H 11/09/17 13:00 Total Protein 5.8 g/dl (6.4-8.2) L 11/23/17 05:35 Albumin 2.6 g/dl (3.4-5.0) L 11/23/17 05:35 Triglycerides 94 mg/dL (35-160) D 11/10/17 06:00 Cholesterol 97 mg/dL (50-200) 11/10/17 06:00 Total LDL Cholesterol 54 mg/dL (5-100) 11/10/17 06:00 HDL Cholesterol 34 mg/dL (40-60) L 11/10/17 06:00 Lipase Cancelled 11/18/17 08:30 Vitamin B12 631 pg/ml (180-914) D 11/23/17 05:35 Folate 1484 ng/mL (>498) 11/20/17 05:35 Folate Hemolysate 452.5 ng/mL (Not Estab.) 11/20/17 05:35 TSH 2.05 uIU/ml (0.358-3.74) D 11/23/17 05:35 Constitutional: Yes: Obese Eyes: Yes: Conjunctiva Clear HENT: Yes: Atraumatic Cardiovascular: Yes: Regular Rate and Rhythm Respiratory: Yes: Regular, CTA Bilaterally Gastrointestinal: Yes: Distention, Other (increase in tympany). No: Soft, Tenderness, Epigastrium, Tenderness, Rebound Labs: CBC, BMP 11/23/17 05:35 11/23/17 05:35 INR, PTT INR 1.47 (0.82-1.09) H 11/22/17 11:10 Fibrinogen 324.0 mg/dL (238-498) 11/22/17 11:10 Problem List - Problems (1) Abdominal pain Assessment/Plan: r/o secondary to IBS with constipation suspected bacterial overgrowth and pancreatic insufficiency Recommendation 1. flagyl 250mg tid for 14 days 2. creon 1 cap each meal 3. Patient has severe constipation and will need 1/2 bottle of citroma every 3 days. Code(s): R10.9 - UNSPECIFIED ABDOMINAL PAIN (2) Pancytopenia Assessment/Plan: recommendation 1.consider hematology consult to r/o myelodysplasia Code(s): D61.818 - OTHER PANCYTOPENIA
--- NOTE | 2017-11-23 18:15 | PN ---
Progress Note (short form) - Note Progress Note: NEUROLOGY FOLLOW-UP: Events reviewed and discussed with Pt's at bedside. TSH, B12 normal. Ammonia is elevated at 37.2 mg%. Elevated CRP. CT revealing atrophy discussed with who does note continued confusion, off narcotics. Pt. is lethargic, arousable. Ox [facility], not month or year. Pt. C/o RLQ pain and bloating. Daughter confirms there is abdominal distention. No drift. + Asterixis/myoclonus. Non-focal exam. 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 SUGGEST: Perhaps GI should Re-see for GI etiology/occult infection (even in face of benign appearing Abd/pelvic CT). Continue antibiotics and hydration. Avait Vanco level but doubt it will be toxic on PO Med. Thank you very much, Fan Hinton MD
--- NOTE | 2017-11-23 19:31 | PN ---
Teaching Attending Note Name of Resident: Darin Loza ATTENDING PHYSICIAN STATEMENT I saw and evaluated the patient. I reviewed the resident's note and discussed the case with the resident. I agree with the resident's findings and plan as documented. SUBJECTIVE: OBJECTIVE: ASSESSMENT AND PLAN:
[2017-11-23] MEDS: ATORVASTATIN CA 80 MG TABLET (FP) PO SCH (21:09)
[2017-11-23] MEDS: CARVEDILOL 6.25 MG TABLET (FP) PO SCH (21:09)
--- NOTE | 2017-11-23 21:27 | PN ---
Progress Note (short form) - Note Progress Note: PAtient seen and examined lethargic. 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 Patient was in CHF exacerbation, which has been treated. We were consulted for leukopenia. PAncytopenia--new onset tibial hardware infection +/- pediatrician active practice amoxicillin stable counts altered mental status--? toxic metabolic abdominal pain/diarrhea--diarrhea improved c.diif -. on po vanco reconsult gi ?? back pain --will discuss with ID --? ? CT T/L spine noncontrast will discuss with ID
[2017-11-24] MEDS ORDERED: LEVOTHYROXINE NA 50 MCG TABLET (FP) ONE (06:03)
[2017-11-24] MEDS ORDERED: LEVOTHYROXINE NA 125 MCG TABLET (FP) ONE (06:03)
[2017-11-24] MEDS: LEVOTHYROXINE 125 MCG, LEVOTHYROXINE 50 MCG PO SCH (06:23)
[2017-11-24] MEDS: FUROSEMIDE 20 MG TABLET (FP) PO SCH ×2 (06:24→14:16)
[2017-11-24] MEDS: VANCOMYCIN 250 MG/5 ML ORAL SOLUTION PO SCH ×4 (06:24→23:13)
[2017-11-24] MEDS: INSULIN SLIDING SCALE (NOVOLOG) 1 VIAL SQ SCH ×4 (06:25→21:13)
[2017-11-24] MEDS: INSULIN DETEMIR 100 UNITS/ML MDV SQ SCH ×2 (06:25→21:12)
[2017-11-24] MEDS ORDERED: PT OWN MED DRAWER 7, Y5N ONE ×4 (09:31→22:39)
[2017-11-24] MEDS: TAMSULOSIN HCL 0.4 MG CAP.ER.24H (FP) PO SCH (09:37)
[2017-11-24] MEDS: LIPASE/PROTEASE/AMYLASE 36,000 UNIT CAPSULE PO SCH ×3 (09:37→17:06)
[2017-11-24] MEDS: LORATADINE 10 MG TABLET PO SCH (09:38)
[2017-11-24] MEDS: CARVEDILOL 6.25 MG TABLET (FP) PO SCH ×2 (09:38→21:13)
[2017-11-24] MEDS: DOCUSATE SODIUM 100 MG CAPSULE (FP) PO SCH (09:38)
[2017-11-24] MEDS: SPIRONOLACTONE 25 MG TABLET (FP) PO SCH (09:38)
[2017-11-24] MEDS: AMOXICILLIN 500 MG CAPSULE (FP) PO SCH ×2 (09:38→21:13)
[2017-11-24] MEDS: APIXABAN 5 MG TABLET PO SCH ×2 (09:39→21:13)
[2017-11-24] MEDS: DULoxetine HCL 30 MG CAPSULE.DR (FP) PO SCH (09:39)
[2017-11-24] MEDS: ISOSORBIDE MONONITRATE 30 MG TAB.SR.24H (FP) PO SCH (09:40)
[2017-11-24] MEDS: POLYETHYLENE GLYCOL 3350 119 GM BTL PO SCH ×2 (09:40→21:14)
[2017-11-24] MEDS: FOLIC ACID 1 MG TABLET (FP) PO SCH (09:40)
[2017-11-24] MEDS: CLOTRIMAZOLE/BETAMET DIPROP 15 GM TUBE TP SCH ×2 (09:40→22:26)
[2017-11-24] MEDS: RANITIDINE HCL 150 MG TABLET (FP) PO SCH ×2 (09:41→21:13)
[2017-11-24] MEDS: MONTELUKAST NA 10 MG TABLET PO SCH (09:41)
[2017-11-24] MEDS: LISINOPRIL 5 MG TABLET (FP) PO SCH (09:41)
--- NOTE | 2017-11-24 10:28 | PN ---
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 Patient was in CHF exacerbation, which has been treated. He was found to have abdominal pain and diarrhea, for which he is being evaluated. We were consulted for leukopenia. Patient was found to have a wbc of 2. PAncytopenia-
--- NOTE | 2017-11-24 13:32 | PN ---
Progress Note, Physician Chief Complaint: SOB Abdominal pain History of Present Illness: complaining of abd pain - Current Medication List Current Medications: Active Medications Acetaminophen (Tylenol -) 650 mg PO Q6H PRN PRN Reason: PAIN LEVEL 1 - 3 Last Admin: 11/21/17 21:16 Dose: 650 mg Amoxicillin (Amoxicillin -) 500 mg PO BID [facility] Last Admin: 11/24/17 09:38 Dose: 500 mg Apixaban (Eliquis -) 5 mg PO BID [facility] Last Admin: 11/24/17 09:39 Dose: 5 mg Atorvastatin Calcium (Lipitor -) 80 mg PO HS [facility] Last Admin: 11/23/17 21:09 Dose: 80 mg Carvedilol (Coreg -) 6.25 mg PO BID [facility] Last Admin: 11/24/17 09:38 Dose: Not Given Clotrimazole (Lotrisone Cream (Small Tube)) 1 applic TP BID [facility] Last Admin: 11/24/17 09:40 Dose: 1 applic Docusate Sodium (Colace -) 100 mg PO DAILY [facility] Last Admin: 11/24/17 09:38 Dose: 100 mg Duloxetine HCl (Cymbalta -) 60 mg PO DAILY [facility] Last Admin: 11/24/17 09:39 Dose: 60 mg Folic Acid (Folic Acid -) 1 mg PO DAILY [facility] Last Admin: 11/24/17 09:40 Dose: 1 mg Furosemide (Lasix -) 60 mg PO BIDLASIX [facility] Last Admin: 11/24/17 06:24 Dose: 60 mg Insulin Aspart (Novolog Vial Sliding Scale -) 1 vial SQ ACHS [facility] PRN Reason: Protocol Last Admin: 11/24/17 11:31 Dose: Not Given Insulin Detemir (Levemir Vial) 25 units SQ BID@0700,2200 [facility] Last Admin: 11/24/17 06:25 Dose: 25 units Isosorbide Mononitrate (Imdur -) 30 mg PO DAILY [facility] Last Admin: 11/24/17 09:40 Dose: 30 mg Levothyroxine Sodium 125 mcg/ (Levothyroxine Sodium 50 mcg) 175 mcg PO DAILY@ 0700 [facility] Last Admin: 11/24/17 06:23 Dose: 175 mcg Lisinopril (Prinivil) 5 mg PO DAILY [facility] Last Admin: 11/24/17 09:41 Dose: 5 mg Loratadine (Claritin -) 10 mg PO DAILY [facility] Last Admin: 11/24/17 09:38 Dose: 10 mg Montelukast Sodium (Singulair -) 10 mg PO DAILY [facility] Last Admin: 11/24/17 09:41 Dose: 10 mg Pancrelipase (Creon Dr 36,000 Units Capsule) 1 cap PO TIDCM [facility] Last Admin: 11/24/17 12:06 Dose: 1 cap Polyethylene Glycol (Miralax (For Daily Use) -) 34 gm PO BID [facility] Last Admin: 11/24/17 09:40 Dose: 34 grams Ranitidine HCl (Zantac -) 150 mg PO BID [facility] Last Admin: 11/24/17 09:41 Dose: 150 mg Spironolactone (Aldactone -) 25 mg PO DAILY [facility] Last Admin: 11/24/17 09:38 Dose: 25 mg Tamsulosin HCl (Flomax -) 0.4 mg PO 0830 [facility] Last Admin: 11/24/17 09:37 Dose: 0.4 mg Tramadol HCl (Ultram -) 50 mg PO Q8H PRN PRN Reason: PAIN LEVEL 7 - 10 Last Admin: 11/23/17 10:57 Dose: 50 mg Vancomycin HCl (Vancomycin Oral Solution) 125 mg PO Q6HPO [facility] Last Admin: 11/24/17 12:06 Dose: 125 mg - Objective Vital Signs: Vital Signs Temperature 98.3 F 11/24/17 10:00 Pulse Rate 66 11/24/17 10:00 Respiratory Rate 20 11/24/17 10:00 Blood Pressure 94/46 11/24/17 10:00 O2 Sat by Pulse Oximetry (%) 95 11/24/17 10:00 Constitutional: Yes: Well Nourished, No Distress, Calm Respiratory: Yes: Regular Gastrointestinal: Yes: Abdomen, Obese Neurological: Yes: Alert, Pre-Existing Deficit Psychiatric: Yes: Alert Labs: CBC, BMP 11/23/17 05:35 11/23/17 05:35 INR, PTT INR 1.47 (0.82-1.09) H 11/22/17 11:10 Fibrinogen 324.0 mg/dL (238-498) 11/22/17 11:10 Problem List - Problems (1) Abdominal pain Assessment/Plan: -seen by GI -Abd Xray from 3/1/18 unremarkable -GI to re-evaluate the pt Code(s): R10.9 - UNSPECIFIED ABDOMINAL PAIN (2) CAD (coronary artery disease) Code(s): I25.10 - ATHSCL HEART DISEASE OF [place] CORONARY ARTERY W/O ANG PCTRS Qualifiers: Coronary Disease-Associated Artery/Lesion type: unspecified vessel or lesion type [place] vs. transplanted heart: [place] heart Associated angina: angina presence unspecified Qualified Code(s): I25.10 - Atherosclerotic heart disease of [place] coronary artery without angina pectoris (3) Small intestinal bacterial overgrowth Assessment/Plan: seen by GI Code(s): K63.89 - OTHER SPECIFIED DISEASES OF INTESTINE (4) Pancytopenia Assessment/Plan: -seen by hematology Code(s): D61.818 - OTHER PANCYTOPENIA (5) Atrial fibrillation Assessment/Plan: chronic -on AC Code(s): I48.91 - UNSPECIFIED ATRIAL FIBRILLATION Qualifiers: Atrial fibrillation type: paroxysmal Qualified Code(s): I48.0 - Paroxysmal atrial fibrillation (6) Diabetes mellitus, insulin dependent (IDDM), uncontrolled Assessment/Plan: -BGM insulin endocrine consult diabetic diet Code(s): E10.65 - TYPE 1 DIABETES MELLITUS WITH HYPERGLYCEMIA Qualifiers: Assessment/Plan see problem list
[2017-11-24] MEDS ORDERED: INSULIN (NOVOLOG) ASPART 100 UNITS/ML 10ML VIAL ONE (21:08)
[2017-11-24] MEDS: ATORVASTATIN CA 80 MG TABLET (FP) PO SCH (21:13)
[2017-11-25] MEDS: ACETAMINOPHEN 325 MG TABLET (FP) PO PRN (01:03)
[2017-11-25] MEDS ORDERED: PT OWN MED DRAWER 7, Y5N ONE ×5 (06:15→21:39)
[2017-11-25] MEDS: LEVOTHYROXINE 125 MCG, LEVOTHYROXINE 50 MCG PO SCH (06:26)
[2017-11-25] MEDS: INSULIN DETEMIR 100 UNITS/ML MDV SQ SCH ×2 (06:26→22:03)
[2017-11-25] MEDS: FUROSEMIDE 20 MG TABLET (FP) PO SCH ×2 (06:26→14:45)
[2017-11-25] MEDS: INSULIN SLIDING SCALE (NOVOLOG) 1 VIAL SQ SCH ×4 (06:26→22:03)
[2017-11-25] MEDS: VANCOMYCIN 250 MG/5 ML ORAL SOLUTION PO SCH ×4 (06:27→23:51)
--- NOTE | 2017-11-25 07:18 | RAPID ---
Physical Examination Vital Signs: Vital Signs Temperature 97.6 F 11/25/17 06:00 Pulse Rate 67 11/25/17 06:00 Respiratory Rate 18 11/25/17 06:00 Blood Pressure 90/61 11/25/17 06:00 O2 Sat by Pulse Oximetry (%) 99 11/24/17 20:28 Labs: CBC, BMP 11/23/17 05:35 11/23/17 05:35 Rapid Response - Rapid Response Assessment: Rapid response called for patient s/p fall after getting out of bed. Patient is on eliquis. Patient states that he was getting up to go to the bathroom and fell , hit the back of his head, L shoulder, and L hip. He denies loss of conciousness. Patient denies feeling lightheaded. Denies chest pain or SOB. It was an unwitnessed fall. PE: Head: atraumatic Cardiac: RRR Lungs: CTA Neuro: motor strength 5/5 b/l upper and lower extremities. Sensation intact. CN II-XII grossly intact Extremities: small abrasion on L elbow posteriorly A/P: 82yo patient s/p unwitnessed fall -CT head w/o contrast to r/o intracranial bleed -PTT level -XR L shoulder, L hip, L elbow to r/o acute fracture
[2017-11-25 07:42] LABS: BASO % 0.6 % (0-2.0); EOS % 8.7 % (0-4.5); HEMATOCRIT 27.9 % (35.4-49); HEMOGLOBIN 9.4 GM/dL (11.7-16.9); LYMPH % 11.4 % (8-40); MCH 28.2 pg (25.7-33.7); MCHC 33.5 g/dl (32.0-35.9); MONO % 10.7 % (3.8-10.2); NEUT % 68.6 % (42.8-82.8); PLATELET COUNT 111 K/MM3 (134-434); RBC 3.32 M/mm3 (4.00-5.60)
[2017-11-25 08:42] LABS: ALBUMIN 2.6 g/dl (3.4-5.0); CHLORIDE 103 mmol/L (98-107); SODIUM 135 mmol/L (136-145)
[2017-11-25 08:46] LABS: ALK PHOS 86 U/L (45-117); ANION GAP 8 (8-16); BILIRUBIN,TOTAL 0.6 mg/dL (0.2-1.0); BLOOD UREA NITROGEN 41 mg/dL (7-18); CALCIUM 7.7 mg/dL (8.5-10.1); CO2 24 mmol/L (21-32); CREATININE 1.5 mg/dL (0.7-1.3); GLUCOSE,RANDOM 225 mg/dL (74-106); SGOT/AST 25 U/L (15-37); SGPT/ALT 23 U/L (12-78); TOT PROT 5.9 g/dl (6.4-8.2)
[2017-11-25] MEDS: TAMSULOSIN HCL 0.4 MG CAP.ER.24H (FP) PO SCH (11:00)
[2017-11-25] MEDS: LIPASE/PROTEASE/AMYLASE 36,000 UNIT CAPSULE PO SCH ×3 (11:00→17:42)
[2017-11-25] MEDS: DULoxetine HCL 30 MG CAPSULE.DR (FP) PO SCH (11:22)
[2017-11-25] MEDS: traMADol HCL 50 MG TABLET PO PRN (11:22)
[2017-11-25] MEDS: DOCUSATE SODIUM 100 MG CAPSULE (FP) PO SCH (11:23)
[2017-11-25] MEDS: ISOSORBIDE MONONITRATE 30 MG TAB.SR.24H (FP) PO SCH (11:23)
[2017-11-25] MEDS: LORATADINE 10 MG TABLET PO SCH (11:23)
[2017-11-25] MEDS: SPIRONOLACTONE 25 MG TABLET (FP) PO SCH (11:24)
[2017-11-25] MEDS: AMOXICILLIN 500 MG CAPSULE (FP) PO SCH ×2 (11:24→22:02)
[2017-11-25] MEDS: FOLIC ACID 1 MG TABLET (FP) PO SCH (11:24)
[2017-11-25] MEDS: RANITIDINE HCL 150 MG TABLET (FP) PO SCH ×2 (11:24→22:02)
[2017-11-25] MEDS: MONTELUKAST NA 10 MG TABLET PO SCH (11:24)
[2017-11-25] MEDS: CARVEDILOL 6.25 MG TABLET (FP) PO SCH ×2 (11:24→22:02)
[2017-11-25] MEDS: CLOTRIMAZOLE/BETAMET DIPROP 15 GM TUBE TP SCH ×2 (11:24→22:02)
[2017-11-25] MEDS: APIXABAN 5 MG TABLET PO SCH ×2 (11:24→22:02)
[2017-11-25] MEDS: LISINOPRIL 5 MG TABLET (FP) PO SCH (11:24)
[2017-11-25] MEDS: POLYETHYLENE GLYCOL 3350 119 GM BTL PO SCH ×2 (11:25→22:03)
--- NOTE | 2017-11-25 17:13 | PN ---
Progress Note, Physician Chief Complaint: SOB Abdominal pain History of Present Illness: complaining of abd pain lethargic, confused daughter at bedside Fall this AM all workup negative Is getting Tramadol for abdominal pain---> could be contributing to confusion, would d/c and observe GI notified yesterday to re-evaluate pt for abdominal pain on PO abx - Current Medication List Current Medications: Active Medications Acetaminophen (Tylenol -) 650 mg PO Q6H PRN PRN Reason: PAIN LEVEL 1 - 3 Last Admin: 11/25/17 01:03 Dose: 650 mg Amoxicillin (Amoxicillin -) 500 mg PO BID [facility] Last Admin: 11/25/17 11:24 Dose: 500 mg Apixaban (Eliquis -) 5 mg PO BID [facility] Last Admin: 11/25/17 11:24 Dose: 5 mg Atorvastatin Calcium (Lipitor -) 80 mg PO HS [facility] Last Admin: 11/24/17 21:13 Dose: 80 mg Carvedilol (Coreg -) 6.25 mg PO BID [facility] Last Admin: 11/25/17 11:24 Dose: 6.25 mg Clotrimazole (Lotrisone Cream (Small Tube)) 1 applic TP BID [facility] Last Admin: 11/25/17 11:24 Dose: 1 applic Docusate Sodium (Colace -) 100 mg PO DAILY [facility] Last Admin: 11/25/17 11:23 Dose: 100 mg Duloxetine HCl (Cymbalta -) 60 mg PO DAILY [facility] Last Admin: 11/25/17 11:22 Dose: 60 mg Folic Acid (Folic Acid -) 1 mg PO DAILY [facility] Last Admin: 11/25/17 11:24 Dose: 1 mg Furosemide (Lasix -) 60 mg PO BIDLASIX [facility] Last Admin: 11/25/17 14:45 Dose: 60 mg Insulin Aspart (Novolog Vial Sliding Scale -) 1 vial SQ ACHS [facility] PRN Reason: Protocol Last Admin: 11/25/17 16:50 Dose: Not Given Insulin Detemir (Levemir Vial) 25 units SQ BID@0700,2200 [facility] Last Admin: 11/25/17 06:26 Dose: 25 units Isosorbide Mononitrate (Imdur -) 30 mg PO DAILY [facility] Last Admin: 11/25/17 11:23 Dose: 30 mg Levothyroxine Sodium 125 mcg/ (Levothyroxine Sodium 50 mcg) 175 mcg PO DAILY@ 0700 [facility] Last Admin: 11/25/17 06:26 Dose: 175 mcg Lisinopril (Prinivil) 5 mg PO DAILY [facility] Last Admin: 11/25/17 11:24 Dose: 5 mg Loratadine (Claritin -) 10 mg PO DAILY [facility] Last Admin: 11/25/17 11:23 Dose: 10 mg Montelukast Sodium (Singulair -) 10 mg PO DAILY [facility] Last Admin: 11/25/17 11:24 Dose: 10 mg Pancrelipase (Creon Dr 36,000 Units Capsule) 1 cap PO TIDCM [facility] Last Admin: 11/25/17 13:00 Dose: Not Given Polyethylene Glycol (Miralax (For Daily Use) -) 34 gm PO BID [facility] Last Admin: 11/25/17 11:25 Dose: 34 grams Ranitidine HCl (Zantac -) 150 mg PO BID [facility] Last Admin: 11/25/17 11:24 Dose: 150 mg Spironolactone (Aldactone -) 25 mg PO DAILY [facility] Last Admin: 11/25/17 11:24 Dose: 25 mg Tamsulosin HCl (Flomax -) 0.4 mg PO 0830 [facility] Last Admin: 11/25/17 11:00 Dose: Not Given Vancomycin HCl (Vancomycin Oral Solution) 125 mg PO Q6HPO [facility] Last Admin: 11/25/17 11:26 Dose: 125 mg - Objective Vital Signs: Vital Signs Temperature 98.3 F 11/25/17 13:56 Pulse Rate 69 11/25/17 13:56 Respiratory Rate 22 11/25/17 13:56 Blood Pressure 114/62 11/25/17 13:56 O2 Sat by Pulse Oximetry (%) 98 11/25/17 10:00 Constitutional: Yes: Well Nourished, No Distress, Calm Cardiovascular: Yes: Regular Rate and Rhythm Respiratory: Yes: Regular Musculoskeletal: Yes: WNL Extremities: Yes: WNL Neurological: Yes: Alert, Confusion, Lethargy Psychiatric: Yes: Alert Labs: CBC, BMP 11/25/17 06:20 11/25/17 06:20 INR, PTT INR 1.47 (0.82-1.09) H 11/22/17 11:10 Fibrinogen 324.0 mg/dL (238-498) 11/22/17 11:10 Problem List - Problems (1) Abdominal pain Assessment/Plan: -seen by GI -Abd Xray from 11/22/17 unremarkable -GI to re-evaluate the pt Code(s): R10.9 - UNSPECIFIED ABDOMINAL PAIN (2) CAD (coronary artery disease) Code(s): I25.10 - ATHSCL HEART DISEASE OF [place] CORONARY ARTERY W/O ANG PCTRS Qualifiers: Coronary Disease-Associated Artery/Lesion type: unspecified vessel or lesion type [place] vs. transplanted heart: [place] heart Associated angina: angina presence unspecified Qualified Code(s): I25.10 - Atherosclerotic heart disease of [place] coronary artery without angina pectoris (3) Small intestinal bacterial overgrowth Assessment/Plan: seen by GI Code(s): K63.89 - OTHER SPECIFIED DISEASES OF INTESTINE (4) Pancytopenia Assessment/Plan: -seen by hematology Code(s): D61.818 - OTHER PANCYTOPENIA (5) Atrial fibrillation Assessment/Plan: chronic -on AC Code(s): I48.91 - UNSPECIFIED ATRIAL FIBRILLATION Qualifiers: Atrial fibrillation type: paroxysmal Qualified Code(s): I48.0 - Paroxysmal atrial fibrillation (6) Diabetes mellitus, insulin dependent (IDDM), uncontrolled Assessment/Plan: -BGM insulin endocrine consult diabetic diet Code(s): E10.65 - TYPE 1 DIABETES MELLITUS WITH HYPERGLYCEMIA Qualifiers: (7) Change in mental state Assessment/Plan: -seen by Neurology -CT head unremarkable -MRI unable to do because of PPM -D/C tramadol and observe -Tyelnol only for pain for now -Metabolic encephalopathy? Code(s): R41.82 - ALTERED MENTAL STATUS, UNSPECIFIED Assessment/Plan see problem list
[2017-11-25] MEDS: ATORVASTATIN CA 80 MG TABLET (FP) PO SCH (22:02)
[2017-11-26] MEDS ORDERED: LEVOTHYROXINE NA 50 MCG TABLET (FP) ONE (05:33)
[2017-11-26] MEDS ORDERED: LEVOTHYROXINE NA 125 MCG TABLET (FP) ONE (05:33)
[2017-11-26] MEDS ORDERED: PT OWN MED DRAWER 7, Y5N ONE ×2 (05:34→12:10)
[2017-11-26] MEDS: FUROSEMIDE 20 MG TABLET (FP) PO SCH ×2 (05:39→14:19)
[2017-11-26] MEDS: VANCOMYCIN 250 MG/5 ML ORAL SOLUTION PO SCH ×2 (05:39→12:13)
[2017-11-26] MEDS: INSULIN DETEMIR 100 UNITS/ML MDV SQ SCH ×2 (06:33→22:19)
[2017-11-26] MEDS: INSULIN SLIDING SCALE (NOVOLOG) 1 VIAL SQ SCH ×4 (06:33→21:59)
[2017-11-26] MEDS: LEVOTHYROXINE 125 MCG, LEVOTHYROXINE 50 MCG PO SCH (06:33)
--- NOTE | 2017-11-26 08:53 | PN ---
Progress Note, Physician - Current Medication List Current Medications: Active Medications Acetaminophen (Tylenol -) 650 mg PO Q6H PRN PRN Reason: PAIN LEVEL 1 - 3 Last Admin: 11/25/17 01:03 Dose: 650 mg Amoxicillin (Amoxicillin -) 500 mg PO BID [facility] Last Admin: 11/25/17 22:02 Dose: 500 mg Apixaban (Eliquis -) 5 mg PO BID [facility] Last Admin: 11/25/17 22:02 Dose: 5 mg Atorvastatin Calcium (Lipitor -) 80 mg PO HS [facility] Last Admin: 11/25/17 22:02 Dose: 80 mg Carvedilol (Coreg -) 6.25 mg PO BID [facility] Last Admin: 11/25/17 22:02 Dose: Not Given Clotrimazole (Lotrisone Cream (Small Tube)) 1 applic TP BID [facility] Last Admin: 11/25/17 22:02 Dose: 1 applic Docusate Sodium (Colace -) 100 mg PO DAILY [facility] Last Admin: 11/25/17 11:23 Dose: 100 mg Duloxetine HCl (Cymbalta -) 60 mg PO DAILY [facility] Last Admin: 11/25/17 11:22 Dose: 60 mg Folic Acid (Folic Acid -) 1 mg PO DAILY [facility] Last Admin: 11/25/17 11:24 Dose: 1 mg Furosemide (Lasix -) 60 mg PO BIDLASIX [facility] Last Admin: 11/26/17 05:39 Dose: 60 mg Insulin Aspart (Novolog Vial Sliding Scale -) 1 vial SQ ACHS [facility] PRN Reason: Protocol Last Admin: 11/26/17 06:33 Dose: Not Given Insulin Detemir (Levemir Vial) 25 units SQ BID@0700,2200 [facility] Last Admin: 11/26/17 06:33 Dose: 25 units Isosorbide Mononitrate (Imdur -) 30 mg PO DAILY [facility] Last Admin: 11/25/17 11:23 Dose: 30 mg Levothyroxine Sodium 125 mcg/ (Levothyroxine Sodium 50 mcg) 175 mcg PO DAILY@ 0700 [facility] Last Admin: 11/26/17 06:33 Dose: 175 mcg Lisinopril (Prinivil) 5 mg PO DAILY [facility] Last Admin: 11/25/17 11:24 Dose: 5 mg Loratadine (Claritin -) 10 mg PO DAILY [facility] Last Admin: 11/25/17 11:23 Dose: 10 mg Montelukast Sodium (Singulair -) 10 mg PO DAILY [facility] Last Admin: 11/25/17 11:24 Dose: 10 mg Pancrelipase (Creon Dr 36,000 Units Capsule) 1 cap PO TIDCM [facility] Last Admin: 11/25/17 17:42 Dose: 1 cap Polyethylene Glycol (Miralax (For Daily Use) -) 34 gm PO BID [facility] Last Admin: 11/25/17 22:03 Dose: Not Given Ranitidine HCl (Zantac -) 150 mg PO BID [facility] Last Admin: 11/25/17 22:02 Dose: 150 mg Spironolactone (Aldactone -) 25 mg PO DAILY [facility] Last Admin: 11/25/17 11:24 Dose: 25 mg Tamsulosin HCl (Flomax -) 0.4 mg PO 0830 [facility] Last Admin: 11/25/17 11:00 Dose: Not Given Vancomycin HCl (Vancomycin Oral Solution) 125 mg PO Q6HPO [facility] Last Admin: 11/26/17 05:39 Dose: 125 mg - Objective Vital Signs: Vital Signs Temperature 98.2 F 11/26/17 05:20 Pulse Rate 78 11/26/17 05:20 Respiratory Rate 18 11/26/17 05:20 Blood Pressure 116/64 11/26/17 05:20 O2 Sat by Pulse Oximetry (%) 95 11/25/17 21:00 Cardiovascular: Yes: S1, S2 Respiratory: Yes: Rhonchi Gastrointestinal: Yes: Normal Bowel Sounds, Soft Labs: CBC, BMP 11/25/17 06:20 11/25/17 06:20 INR, PTT INR 1.47 (0.82-1.09) H 11/22/17 11:10 Fibrinogen 324.0 mg/dL (238-498) 11/22/17 11:10 Problem List - Problems (1) Chest pain Code(s): R07.9 - CHEST PAIN, UNSPECIFIED Qualifiers: Chest pain type: unspecified Qualified Code(s): R07.9 - Chest pain, unspecified (2) CAD (coronary artery disease) Code(s): I25.10 - ATHSCL HEART DISEASE OF [place] CORONARY ARTERY W/O ANG PCTRS Qualifiers: Coronary Disease-Associated Artery/Lesion type: unspecified vessel or lesion type [place] vs. transplanted heart: [place] heart Associated angina: angina presence unspecified Qualified Code(s): I25.10 - Atherosclerotic heart disease of [place] coronary artery without angina pectoris (3) CHF (congestive heart failure) Code(s): I50.9 - HEART FAILURE, UNSPECIFIED Qualifiers: Heart failure type: systolic Heart failure chronicity: acute on chronic Qualified Code(s): I50.23 - Acute on chronic systolic (congestive) heart failure (4) COPD (chronic obstructive pulmonary disease) Code(s): J44.9 - CHRONIC OBSTRUCTIVE PULMONARY DISEASE, UNSPECIFIED (5) Diabetes mellitus, insulin dependent (IDDM), uncontrolled Code(s): E10.65 - TYPE 1 DIABETES MELLITUS WITH HYPERGLYCEMIA Qualifiers: (6) Constipation Code(s): K59.00 - CONSTIPATION, UNSPECIFIED (7) Abdominal pain Code(s): R10.9 - UNSPECIFIED ABDOMINAL PAIN Qualifiers: Abdominal location: right upper quadrant Qualified Code(s): R10.11 - Right upper quadrant pain (8) Pancytopenia Code(s): D61.818 - OTHER PANCYTOPENIA (9) Change in mental state Code(s): R41.82 - ALTERED MENTAL STATUS, UNSPECIFIED Assessment/Plan - Problems (1) Abdominal pain Assessment/Plan: -seen by GI -Abd Xray from 11/22/17 unremarkable -GI to re-evaluate the pt Code(s): R10.9 - UNSPECIFIED ABDOMINAL PAIN (2) CAD (coronary artery disease) Code(s): I25.10 - ATHSCL HEART DISEASE OF [place] CORONARY ARTERY W/O ANG PCTRS Qualifiers: Coronary Disease-Associated Artery/Lesion type: unspecified vessel or lesion type [place] vs. transplanted heart: [place] heart Associated angina: angina presence unspecified Qualified Code(s): I25.10 - Atherosclerotic heart disease of [place] coronary artery without angina pectoris (3) Small intestinal bacterial overgrowth Assessment/Plan: seen by GI Code(s): K63.89 - OTHER SPECIFIED DISEASES OF INTESTINE (4) Pancytopenia Assessment/Plan: -seen by hematology Code(s): D61.818 - OTHER PANCYTOPENIA (5) Atrial fibrillation Assessment/Plan: chronic -on AC Code(s): I48.91 - UNSPECIFIED ATRIAL FIBRILLATION Qualifiers: Atrial fibrillation type: paroxysmal Qualified Code(s): I48.0 - Paroxysmal atrial fibrillation (6) Diabetes mellitus, insulin dependent (IDDM), uncontrolled Assessment/Plan: -BGM insulin endocrine consult diabetic diet Code(s): E10.65 - TYPE 1 DIABETES MELLITUS WITH HYPERGLYCEMIA Qualifiers: (7) Change in mental state Assessment/Plan: -seen by Neurology -CT head unremarkable -MRI unable to do because of PPM -D/C tramadol and observe -Tyelnol only for pain for now -Metabolic encephalopathy? -pt--snf Code(s): R41.82 - ALTERED MENTAL STATUS, UNSPECIFIED (8) Abnormal CxR Assessment/Plan: -r/o pna -CT
[2017-11-26] MEDS: ISOSORBIDE MONONITRATE 30 MG TAB.SR.24H (FP) PO SCH (10:46)
[2017-11-26] MEDS: AMOXICILLIN 500 MG CAPSULE (FP) PO SCH ×2 (10:46→21:57)
[2017-11-26] MEDS: LORATADINE 10 MG TABLET PO SCH (10:47)
[2017-11-26] MEDS: RANITIDINE HCL 150 MG TABLET (FP) PO SCH ×2 (10:47→21:58)
[2017-11-26] MEDS: APIXABAN 5 MG TABLET PO SCH ×2 (10:47→21:58)
[2017-11-26] MEDS: FOLIC ACID 1 MG TABLET (FP) PO SCH (10:47)
[2017-11-26] MEDS: MONTELUKAST NA 10 MG TABLET PO SCH (10:47)
[2017-11-26] MEDS: TAMSULOSIN HCL 0.4 MG CAP.ER.24H (FP) PO SCH (10:47)
[2017-11-26] MEDS: DULoxetine HCL 30 MG CAPSULE.DR (FP) PO SCH (10:47)
[2017-11-26] MEDS: CARVEDILOL 6.25 MG TABLET (FP) PO SCH ×2 (10:47→21:57)
[2017-11-26] MEDS: SPIRONOLACTONE 25 MG TABLET (FP) PO SCH (10:47)
[2017-11-26] MEDS: LISINOPRIL 5 MG TABLET (FP) PO SCH (10:48)
[2017-11-26] MEDS: DOCUSATE SODIUM 100 MG CAPSULE (FP) PO SCH (10:48)
[2017-11-26] MEDS: LIPASE/PROTEASE/AMYLASE 36,000 UNIT CAPSULE PO SCH ×3 (10:49→18:41)
[2017-11-26] MEDS: POLYETHYLENE GLYCOL 3350 119 GM BTL PO SCH ×2 (12:14→21:59)
[2017-11-26] MEDS: CLOTRIMAZOLE/BETAMET DIPROP 15 GM TUBE TP SCH ×2 (12:20→21:58)
--- NOTE | 2017-11-26 14:56 | PN ---
Progress Note, Physician History of Present Illness: Awake but lethargic Offers no complaints No c/o abdominal pain. No diarrhea Afebrile WBC now WNL. Plt count improved - Current Medication List Current Medications: Active Medications Acetaminophen (Tylenol -) 650 mg PO Q6H PRN PRN Reason: PAIN LEVEL 1 - 3 Last Admin: 11/25/17 01:03 Dose: 650 mg Amoxicillin (Amoxicillin -) 500 mg PO BID [facility] Last Admin: 11/26/17 10:46 Dose: 500 mg Apixaban (Eliquis -) 5 mg PO BID [facility] Last Admin: 11/26/17 10:47 Dose: 5 mg Atorvastatin Calcium (Lipitor -) 80 mg PO HS [facility] Last Admin: 11/25/17 22:02 Dose: 80 mg Carvedilol (Coreg -) 6.25 mg PO BID [facility] Last Admin: 11/26/17 10:47 Dose: 6.25 mg Clotrimazole (Lotrisone Cream (Small Tube)) 1 applic TP BID [facility] Last Admin: 11/26/17 12:20 Dose: 1 applic Docusate Sodium (Colace -) 100 mg PO DAILY [facility] Last Admin: 11/26/17 10:48 Dose: 100 mg Duloxetine HCl (Cymbalta -) 60 mg PO DAILY [facility] Last Admin: 11/26/17 10:47 Dose: 60 mg Folic Acid (Folic Acid -) 1 mg PO DAILY [facility] Last Admin: 11/26/17 10:47 Dose: 1 mg Furosemide (Lasix -) 60 mg PO BIDLASIX [facility] Last Admin: 11/26/17 14:19 Dose: 60 mg Insulin Aspart (Novolog Vial Sliding Scale -) 1 vial SQ ACHS [facility] PRN Reason: Protocol Last Admin: 11/26/17 11:30 Dose: Not Given Insulin Detemir (Levemir Vial) 25 units SQ BID@0700,2200 [facility] Last Admin: 11/26/17 06:33 Dose: 25 units Isosorbide Mononitrate (Imdur -) 30 mg PO DAILY [facility] Last Admin: 11/26/17 10:46 Dose: 30 mg Levothyroxine Sodium 125 mcg/ (Levothyroxine Sodium 50 mcg) 175 mcg PO DAILY@ 0700 [facility] Last Admin: 11/26/17 06:33 Dose: 175 mcg Lisinopril (Prinivil) 5 mg PO DAILY [facility] Last Admin: 03/05/18 10:48 Dose: 5 mg Loratadine (Claritin -) 10 mg PO DAILY [facility] Last Admin: 11/26/17 10:47 Dose: 10 mg Montelukast Sodium (Singulair -) 10 mg PO DAILY [facility] Last Admin: 11/26/17 10:47 Dose: 10 mg Pancrelipase (Creon Dr 36,000 Units Capsule) 1 cap PO TIDCM [facility] Last Admin: 11/26/17 12:13 Dose: 1 cap Polyethylene Glycol (Miralax (For Daily Use) -) 34 gm PO BID [facility] Last Admin: 11/26/17 12:14 Dose: Not Given Ranitidine HCl (Zantac -) 150 mg PO BID [facility] Last Admin: 11/26/17 10:47 Dose: 150 mg Spironolactone (Aldactone -) 25 mg PO DAILY [facility] Last Admin: 11/26/17 10:47 Dose: 25 mg Tamsulosin HCl (Flomax -) 0.4 mg PO 0830 [facility] Last Admin: 11/26/17 10:47 Dose: 0.4 mg Vancomycin HCl (Vancomycin Oral Solution) 125 mg PO Q6HPO [facility] Last Admin: 11/26/17 12:13 Dose: 125 mg - Objective Vital Signs: Vital Signs Temperature 98.2 F 11/26/17 05:20 Pulse Rate 78 11/26/17 05:20 Respiratory Rate 18 11/26/17 05:20 Blood Pressure 116/64 11/26/17 05:20 O2 Sat by Pulse Oximetry (%) 95 11/25/17 21:00 Constitutional: Yes: No Distress, Obese Cardiovascular: Yes: Regular Rate and Rhythm, S1, S2 Respiratory: Yes: CTA Bilaterally Gastrointestinal: Yes: Normal Bowel Sounds, Soft, Abdomen, Obese. No: Tenderness Labs: CBC, BMP 11/25/17 06:20 11/25/17 06:20 INR, PTT INR 1.47 (0.82-1.09) H 11/22/17 11:10 Fibrinogen 324.0 mg/dL (238-498) 11/22/17 11:10 Assessment/Plan Pancytopenia- improved Abdominal pain syndrome Hx chronically infected orthopedic hardware Will D/C po vancomycin Continue rivet maker suppressive therapy with amoxicillin
--- NOTE | 2017-11-26 18:24 | PN ---
Progress Note, Physician History of Present Illness: patient continues t have change in mental status but arousal to verbal stimuli there is no focal deficits noted. Noted to have 2 bowel movements today. Patient is receiving levimir 25 units twice daily with poor PO intake. (Patient seen with Dr. Puckett) - Current Medication List Current Medications: Active Medications Acetaminophen (Tylenol -) 650 mg PO Q6H PRN PRN Reason: PAIN LEVEL 1 - 3 Last Admin: 11/25/17 01:03 Dose: 650 mg Amoxicillin (Amoxicillin -) 500 mg PO BID [facility] Last Admin: 11/26/17 10:46 Dose: 500 mg Apixaban (Eliquis -) 5 mg PO BID [facility] Last Admin: 11/26/17 10:47 Dose: 5 mg Atorvastatin Calcium (Lipitor -) 80 mg PO HS [facility] Last Admin: 11/25/17 22:02 Dose: 80 mg Carvedilol (Coreg -) 6.25 mg PO BID [facility] Last Admin: 11/26/17 10:47 Dose: 6.25 mg Clotrimazole (Lotrisone Cream (Small Tube)) 1 applic TP BID [facility] Last Admin: 11/26/17 12:20 Dose: 1 applic Docusate Sodium (Colace -) 100 mg PO DAILY [facility] Last Admin: 11/26/17 10:48 Dose: 100 mg Duloxetine HCl (Cymbalta -) 60 mg PO DAILY [facility] Last Admin: 11/26/17 10:47 Dose: 60 mg Folic Acid (Folic Acid -) 1 mg PO DAILY [facility] Last Admin: 11/26/17 10:47 Dose: 1 mg Furosemide (Lasix -) 60 mg PO BIDLASIX [facility] Last Admin: 11/26/17 14:19 Dose: 60 mg Insulin Aspart (Novolog Vial Sliding Scale -) 1 vial SQ ACHS [facility] PRN Reason: Protocol Last Admin: 11/26/17 16:40 Dose: Not Given Insulin Detemir (Levemir Vial) 25 units SQ BID@0700,2200 [facility] Last Admin: 11/26/17 06:33 Dose: 25 units Isosorbide Mononitrate (Imdur -) 30 mg PO DAILY [facility] Last Admin: 11/26/17 10:46 Dose: 30 mg Levothyroxine Sodium 125 mcg/ (Levothyroxine Sodium 50 mcg) 175 mcg PO DAILY@ 0700 [facility] Last Admin: 11/26/17 06:33 Dose: 175 mcg Lisinopril (Prinivil) 5 mg PO DAILY [facility] Last Admin: 11/26/17 10:48 Dose: 5 mg Loratadine (Claritin -) 10 mg PO DAILY [facility] Last Admin: 11/26/17 10:47 Dose: 10 mg Montelukast Sodium (Singulair -) 10 mg PO DAILY [facility] Last Admin: 11/26/17 10:47 Dose: 10 mg Pancrelipase (Creon Dr 36,000 Units Capsule) 1 cap PO TIDCM [facility] Last Admin: 11/26/17 12:13 Dose: 1 cap Polyethylene Glycol (Miralax (For Daily Use) -) 34 gm PO BID [facility] Last Admin: 11/26/17 12:14 Dose: Not Given Ranitidine HCl (Zantac -) 300 mg PO BID [facility] Rifaximin (Xifaxan -) 550 mg PO BID [facility] Spironolactone (Aldactone -) 25 mg PO DAILY [facility] Last Admin: 11/26/17 10:47 Dose: 25 mg Tamsulosin HCl (Flomax -) 0.4 mg PO 0830 [facility] Last Admin: 11/26/17 10:47 Dose: 0.4 mg - Objective Vital Signs: Vital Signs Temperature 99.5 F 11/26/17 14:06 Pulse Rate 65 11/26/17 14:06 Respiratory Rate 18 11/26/17 14:06 Blood Pressure 114/68 11/26/17 14:06 O2 Sat by Pulse Oximetry (%) 95 11/26/17 09:00 Constitutional: Yes: Obese Eyes: Yes: Conjunctiva Clear HENT: Yes: Atraumatic Cardiovascular: Yes: Regular Rate and Rhythm Respiratory: Yes: Regular, CTA Bilaterally Neurological: Yes: Alert, Lethargy (response to verbal and tactile stimuli.). No: Pre-Existing Deficit Labs: CBC, BMP 11/25/17 06:20 11/25/17 06:20 INR, PTT INR 1.47 (0.82-1.09) H 11/22/17 11:10 Fibrinogen 324.0 mg/dL (238-498) 11/22/17 11:10 Problem List - Problems (1) Abdominal pain Assessment/Plan: associated with mild abdominal distention, no abdominal pain R/O secondary to bacterial overgrowth Recommendations: 1)discontinue augmentin and xifaxan as patient could not tolerate Po intake. 2) ceftriaxone 1 gram IVPB daily 3) fleet enemas prn Code(s): R10.9 - UNSPECIFIED ABDOMINAL PAIN (2) Pancytopenia Code(s): D61.818 - OTHER PANCYTOPENIA (3) Change in mental status Assessment/Plan: Recommendations: 1)will observe, off levimir and check finger sticks every 4 hours for 24hours, as patient hardly eats. 2) start D5/NS 75ml/hr Code(s): R41.82 - ALTERED MENTAL STATUS, UNSPECIFIED
[2017-11-26] MEDS: DEXTROSE 5%-NORMAL SALINE 1,000 ML IV SCH (18:49)
[2017-11-26] MEDS: ATORVASTATIN CA 80 MG TABLET (FP) PO SCH (21:58)
[2017-11-26] MEDS: RIFAXIMIN 550 MG TABLET (UD) PO SCH (21:59)
[2017-11-27] MEDS ORDERED: LEVOTHYROXINE NA 50 MCG TABLET (FP) ONE (05:59)
[2017-11-27] MEDS ORDERED: LEVOTHYROXINE NA 125 MCG TABLET (FP) ONE (05:59)
[2017-11-27] MEDS: FUROSEMIDE 20 MG TABLET (FP) PO SCH ×2 (06:12→14:37)
[2017-11-27] MEDS: INSULIN SLIDING SCALE (NOVOLOG) 1 VIAL SQ SCH ×3 (06:13→23:02)
[2017-11-27] MEDS: LEVOTHYROXINE 125 MCG, LEVOTHYROXINE 50 MCG PO SCH (06:13)
[2017-11-27] MEDS: INSULIN DETEMIR 100 UNITS/ML MDV SQ SCH (06:13)
[2017-11-27] MEDS: DEXTROSE 5%-NORMAL SALINE 1,000 ML IV SCH ×3 (06:20→19:56)
[2017-11-27] MEDS ORDERED: PT OWN MED DRAWER 7, Y5N ONE ×7 (06:59→18:13)
[2017-11-27] MEDS: TAMSULOSIN HCL 0.4 MG CAP.ER.24H (FP) PO SCH (08:49)
[2017-11-27] MEDS: LIPASE/PROTEASE/AMYLASE 36,000 UNIT CAPSULE PO SCH ×3 (08:59→18:11)
[2017-11-27] MEDS: LORATADINE 10 MG TABLET PO SCH (11:00)
[2017-11-27] MEDS: LISINOPRIL 5 MG TABLET (FP) PO SCH (11:00)
[2017-11-27] MEDS: FOLIC ACID 1 MG TABLET (FP) PO SCH (11:00)
[2017-11-27] MEDS: CARVEDILOL 6.25 MG TABLET (FP) PO SCH ×2 (11:01→23:01)
[2017-11-27] MEDS: SPIRONOLACTONE 25 MG TABLET (FP) PO SCH (11:01)
[2017-11-27] MEDS: CLOTRIMAZOLE/BETAMET DIPROP 15 GM TUBE TP SCH ×2 (11:01→23:01)
[2017-11-27] MEDS: MONTELUKAST NA 10 MG TABLET PO SCH (11:01)
[2017-11-27] MEDS: AMOXICILLIN 500 MG CAPSULE (FP) PO SCH ×2 (11:02→23:01)
[2017-11-27] MEDS: APIXABAN 5 MG TABLET PO SCH ×2 (11:02→23:01)
[2017-11-27] MEDS: ISOSORBIDE MONONITRATE 30 MG TAB.SR.24H (FP) PO SCH (11:05)
[2017-11-27] MEDS: RANITIDINE HCL 150 MG TABLET (FP) PO SCH (11:10)
[2017-11-27] MEDS: DULoxetine HCL 30 MG CAPSULE.DR (FP) PO SCH (11:15)
[2017-11-27] MEDS: POLYETHYLENE GLYCOL 3350 119 GM BTL PO SCH ×2 (11:15→23:02)
[2017-11-27] MEDS ORDERED: INSULIN (NOVOLOG) ASPART 100 UNITS/ML 10ML VIAL ONE ×2 (11:54→17:01)
[2017-11-27] MEDS: RIFAXIMIN 550 MG TABLET (UD) PO SCH ×2 (12:25→23:01)
[2017-11-27] MEDS: DOCUSATE SODIUM 100 MG CAPSULE (FP) PO SCH (12:26)
--- NOTE | 2017-11-27 14:30 | CONSULT ---
Admitting History and Physical - Primary Care Physician PCP: Sweetie Biswas - Admission History of Present Illness: 82 year old male with a history of HTN, HLD, DM, NE s/p 2 stents, Hypothyroid, CHF who presents for evaluation to ER in 11/10/17 with of SOB and chest pain. The patient reports a 2 day history of SOB and left sided chest pressure worse with exertion. During course of hospitalization he has become mor lethargic and confused, admitted o x 3, ambulating with a cane. Today pt is lethargic, able to be aroused but resistent to evaluation, opushing away trials of soda and applesauce. He is confused. He was choking and expectorating spaghetti lunch time.He tloerated puree,soups, drinks, but limited PO acceptance. History Source: Medical Record - Past Medical History BACK PANEL PADDER: Yes: TIA. No: Alzheimer's Cardiovascular: Yes: AFIB, Aneurysm (mild ascending aortic aneurysm (4.2 cm) per 01/[address]), CAD (stents x2 in 2010; thrombectomy & PCI of proximal and mid LAD with Promus Premier stents and PTCA of D1 on 12/18/15 [facility] for acute/subacute anteroseptal NE), CHF, HTN, Hyperlipdemia, Other (ischemic cardiomyopathy (LVEF 34% per 02/16/16 nuclear study)) Gastrointestinal: Yes: Constipation, Diverticulosis Heme/Onc: Yes: Anemia Musculoskeletal: Yes: Other (rib fx's right) Endocrine: Yes: Diabetes Mellitus, Hypothyroidism - Past Surgical History Past Surgical History: Yes: Arthrosocopy (Right knee arthroscopy w/ partial medial and lateral meniscectomy 09/01/15), Colectomy - Smoking History Smoking history: Former smoker Have you smoked in the past 12 months: No Aproximately how many cigarettes per day: 0 If you are a former smoker, when did you quit?: 40 years ago - Alcohol/Substance Use Hx Alcohol Use: No History of Substance Use: reports: None - Social History 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 History of Recent Travel: No History - Admission Reason For Visit: SOB; CORONARY ARTERY DISEASE; CHF; CHEST PAIN - Diagnostics X-ray: Report Reviewed CT Scan: Report Reviewed - General Mental Status: Confused, Lethargic Attention: Moderate Impairment Speech Evaluation - Communication Primary Language: MALAY Communication: Yes: Simple Responses - Speech Characteristics Articulation: Yes: Precise - Swallow Evaluation/Bedside Assessment Current Nutritional Intake: Regular, Thin Liquids Facial Symmetry at Rest: Symmetrical Against Resistance Opening: Normal Against Resistance Closing: Normal Lingual Movement: Normal, Symmetric Lingual Speed of Movement: Normal Lingual Movement Strgth Against Opposition: Normal Lingual Movement Characteristics: Normal Laryngeal Elevation: WFL Laryngeal Movement: Able to Palpate Bolus Size: Small Labial Seal: WFL Oral Prep Time: WFL A-P Transit: WFL Pocketing: None Coughing/Throat Clear: No Change in Voice: No Recommendations - Speech Evaluation, Impression/Plan Impression: Lethargic, arousable briefly, resistant, confused. Coughed with solids. Etiology of AMS/lethargy? - Dysphagia Impressions/Plan *Silent aspiration: cannot be R/O at bedside Dysphagia Treatment Plan: Small Bites, Chin Tuck/Down, Safe Rate, Elevate HOB during feed, Other (Feed only when alert) Recommendations: Modified Barium Swallow (if cough, congestion persists.) - Recommendations Diet Consistency: Dysphagia Pureed Medication Administration: Crushed with applesauce Liquids: [place] Thick Supplement: Magic Cup, Ensure Pudding
[2017-11-27] MEDS: RANITIDINE HCL 150 MG/10 ML UNIT-DOSE PO SCH ×2 (14:35→23:01)
--- NOTE | 2017-11-27 14:45 | PN ---
Progress Note, Physician Chief Complaint: patient seen and examined he is lethargic only eating apple sauce poo po intake jesse get patricia barry to see patient will do plate watch as well - Current Medication List Current Medications: Active Medications Acetaminophen (Tylenol -) 650 mg PO Q6H PRN PRN Reason: PAIN LEVEL 1 - 3 Last Admin: 11/25/17 01:03 Dose: 650 mg Amoxicillin (Amoxicillin -) 500 mg PO BID [facility] Last Admin: 11/27/17 11:02 Dose: 500 mg Apixaban (Eliquis -) 5 mg PO BID [facility] Last Admin: 11/27/17 11:02 Dose: 5 mg Atorvastatin Calcium (Lipitor -) 80 mg PO HS [facility] Last Admin: 11/26/17 21:58 Dose: 80 mg Carvedilol (Coreg -) 6.25 mg PO BID [facility] Last Admin: 11/27/17 11:01 Dose: 6.25 mg Clotrimazole (Lotrisone Cream (Small Tube)) 1 applic TP BID [facility] Last Admin: 11/27/17 11:01 Dose: 1 applic Docusate Sodium (Colace -) 100 mg PO DAILY [facility] Last Admin: 11/27/17 12:26 Dose: 100 mg Duloxetine HCl (Cymbalta -) 60 mg PO DAILY [facility] Last Admin: 11/27/17 11:15 Dose: Not Given Folic Acid (Folic Acid -) 1 mg PO DAILY [facility] Last Admin: 11/27/17 11:00 Dose: 1 mg Furosemide (Lasix -) 60 mg PO BIDLASIX [facility] Last Admin: 11/27/17 14:37 Dose: 60 mg Dextrose/Sodium Chloride (D5-Ns -) 1,000 mls @ 75 mls/hr IV ASDIR [facility] Stop: 11/29/17 07:49 Last Admin: 11/27/17 06:20 Dose: 75 mls/hr Insulin Aspart (Novolog Vial Sliding Scale -) 1 vial SQ ACHS [facility] PRN Reason: Protocol Last Admin: 11/27/17 12:00 Dose: 5 units Insulin Detemir (Levemir Vial) 25 units SQ BID@0700,2200 [facility] Last Admin: 11/27/17 06:13 Dose: Not Given Isosorbide Mononitrate (Ismo -) 10 mg PO BID@0800,1500 [facility] Levothyroxine Sodium 125 mcg/ (Levothyroxine Sodium 50 mcg) 175 mcg PO DAILY@ 0700 [facility] Last Admin: 11/27/17 06:13 Dose: 175 mcg Lisinopril (Prinivil) 5 mg PO DAILY [facility] Last Admin: 11/27/17 11:00 Dose: 5 mg Montelukast Sodium (Singulair -) 10 mg PO DAILY [facility] Last Admin: 11/27/17 11:01 Dose: 10 mg Pancrelipase (Creon Dr 36,000 Units Capsule) 1 cap PO TIDCM [facility] Last Admin: 11/27/17 12:25 Dose: 1 cap Polyethylene Glycol (Miralax (For Daily Use) -) 34 gm PO BID [facility] Last Admin: 11/27/17 11:15 Dose: Not Given Ranitidine HCl (Zantac Oral Solution -) 300 mg PO BID [facility] Last Admin: 11/27/17 14:35 Dose: Not Given Rifaximin (Xifaxan -) 550 mg PO BID [facility] Last Admin: 11/27/17 12:25 Dose: 550 mg Spironolactone (Aldactone -) 25 mg PO DAILY [facility] Last Admin: 11/27/17 11:01 Dose: 25 mg Tamsulosin HCl (Flomax -) 0.4 mg PO 0830 [facility] Last Admin: 11/27/17 08:49 Dose: 0.4 mg - Objective Vital Signs: Vital Signs Temperature 99.3 F 11/27/17 10:54 Pulse Rate 65 11/27/17 14:29 Respiratory Rate 20 11/27/17 14:29 Blood Pressure 138/61 11/27/17 14:29 O2 Sat by Pulse Oximetry (%) 95 11/26/17 21:00 Constitutional: Yes: Calm Cardiovascular: Yes: Regular Rate and Rhythm, S1, S2 Respiratory: Yes: CTA Bilaterally, Diminished (at the bases) Gastrointestinal: Yes: Normal Bowel Sounds, Soft Neurological: Yes: Lethargy Labs: CBC, BMP 11/25/17 06:20 11/25/17 06:20 INR, PTT INR 1.47 (0.82-1.09) H 11/22/17 11:10 Fibrinogen 324.0 mg/dL (238-498) 11/22/17 11:10 Problem List - Problems (1) Lethargy Assessment/Plan: ct head noted neurology on board endocrine for DM check tsh no signs of infection ( no fever , normal WBC count) hold cymbalta and dc singular and claritin calorie count patriciaerasmo barry Code(s): R53.83 - OTHER FATIGUE (2) CHF (congestive heart failure) Assessment/Plan: improved lasix coreg lisinopril and imdur aldactone pleural effusion on lasix Code(s): I50.9 - HEART FAILURE, UNSPECIFIED Qualifiers: Heart failure type: systolic Heart failure chronicity: acute on chronic Qualified Code(s): I50.23 - Acute on chronic systolic (congestive) heart failure (3) Constipation Assessment/Plan: miralax and colace Code(s): K59.00 - CONSTIPATION, UNSPECIFIED (4) IBS (irritable bowel syndrome) Assessment/Plan: 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
[2017-11-27] MEDS: ISOSORBIDE MONONITRATE 20 MG TABLET PO SCH (15:42)
--- NOTE | 2017-11-27 16:47 | PN ---
Progress Note, Physician Chief Complaint: Abdominal pain and constipation History of Present Illness: patient remains lethargic but responsive to verbal stimuli, he continues to report abdominal pain on palpation. patient constipated despite miralax and colace possible secondary to poor PO intake. He was evaluated by speech and swallow for aspiration on spaghetti at lunch time.Puree diet was recommended. - Current Medication List Current Medications: Active Medications Acetaminophen (Tylenol -) 650 mg PO Q6H PRN PRN Reason: PAIN LEVEL 1 - 3 Last Admin: 11/25/17 01:03 Dose: 650 mg Amoxicillin (Amoxicillin -) 500 mg PO BID [facility] Last Admin: 11/27/17 11:02 Dose: 500 mg Apixaban (Eliquis -) 5 mg PO BID [facility] Last Admin: 11/27/17 11:02 Dose: 5 mg Atorvastatin Calcium (Lipitor -) 80 mg PO HS [facility] Last Admin: 11/26/17 21:58 Dose: 80 mg Carvedilol (Coreg -) 6.25 mg PO BID [facility] Last Admin: 11/27/17 11:01 Dose: 6.25 mg Clotrimazole (Lotrisone Cream (Small Tube)) 1 applic TP BID [facility] Last Admin: 11/27/17 11:01 Dose: 1 applic Docusate Sodium (Colace -) 100 mg PO DAILY [facility] Last Admin: 11/27/17 12:26 Dose: 100 mg Duloxetine HCl (Cymbalta -) 60 mg PO DAILY [facility] Last Admin: 11/27/17 11:15 Dose: Not Given Folic Acid (Folic Acid -) 1 mg PO DAILY [facility] Last Admin: 11/27/17 11:00 Dose: 1 mg Furosemide (Lasix -) 60 mg PO BIDLASIX [facility] Last Admin: 11/27/17 14:37 Dose: 60 mg Dextrose/Sodium Chloride (D5-Ns -) 1,000 mls @ 75 mls/hr IV ASDIR [facility] Stop: 11/29/17 07:49 Last Admin: 11/27/17 06:20 Dose: 75 mls/hr Insulin Aspart (Novolog Vial Sliding Scale -) 1 vial SQ QID [facility] PRN Reason: Protocol Isosorbide Mononitrate (Ismo -) 10 mg PO BID@0800,1500 [facility] Last Admin: 11/27/17 15:42 Dose: 10 mg Levothyroxine Sodium 125 mcg/ (Levothyroxine Sodium 50 mcg) 175 mcg PO DAILY@ 0700 [facility] Last Admin: 11/27/17 06:13 Dose: 175 mcg Lisinopril (Prinivil) 5 mg PO DAILY [facility] Last Admin: 11/27/17 11:00 Dose: 5 mg Pancrelipase (Creon Dr 36,000 Units Capsule) 1 cap PO TIDCM [facility] Last Admin: 11/27/17 12:25 Dose: 1 cap Polyethylene Glycol (Miralax (For Daily Use) -) 34 gm PO BID [facility] Last Admin: 11/27/17 11:15 Dose: Not Given Ranitidine HCl (Zantac Oral Solution -) 300 mg PO BID [facility] Last Admin: 11/27/17 14:35 Dose: Not Given Rifaximin (Xifaxan -) 550 mg PO BID [facility] Last Admin: 11/27/17 12:25 Dose: 550 mg Spironolactone (Aldactone -) 25 mg PO DAILY [facility] Last Admin: 11/27/17 11:01 Dose: 25 mg Tamsulosin HCl (Flomax -) 0.4 mg PO 0830 [facility] Last Admin: 11/27/17 08:49 Dose: 0.4 mg - Objective Vital Signs: Vital Signs Temperature 99.4 F 11/27/17 14:40 Pulse Rate 64 11/27/17 15:36 Respiratory Rate 20 11/27/17 15:36 Blood Pressure 116/61 11/27/17 15:36 O2 Sat by Pulse Oximetry (%) 95 11/26/17 21:00 Constitutional: Yes: No Distress Eyes: Yes: Conjunctiva Clear HENT: Yes: Atraumatic Cardiovascular: Yes: Regular Rate and Rhythm Respiratory: Yes: CTA Bilaterally Gastrointestinal: Yes: Abdomen, Obese, Hypoactive Bowel Sounds, Tenderness, Epigastrium (Diffused). No: Vomiting Neurological: Yes: Lethargy (responsive to verbal commands), Unsteady Gait Labs: CBC, BMP 11/25/17 06:20 11/25/17 06:20 INR, PTT INR 1.47 (0.82-1.09) H 11/22/17 11:10 Fibrinogen 324.0 mg/dL (238-498) 11/22/17 11:10 Problem List - Problems (1) Abdominal pain Assessment/Plan: associated with mild abdominal distention, no abdominal pain R/O secondary to bacterial overgrowth Recommendations: 1)discontinue augmentin and xifaxan as patient could not tolerate Po intake. 2) ceftriaxone 1 gram IVPB daily 3) fleet enemas prn Code(s): R10.9 - UNSPECIFIED ABDOMINAL PAIN (2) Pancytopenia Code(s): D61.818 - OTHER PANCYTOPENIA (3) Change in mental status Assessment/Plan: Recommendations: 1)continue D5/NS 75ml/hr Code(s): R41.82 - ALTERED MENTAL STATUS, UNSPECIFIED (4) Constipation Assessment/Plan: secondary to decreased mobility Recommendation: 1) administer enema Code(s): K59.00 - CONSTIPATION, UNSPECIFIED
[2017-11-27 17:18] LABS: BASO % 0.4 % (0-2.0); EOS % 7.1 % (0-4.5); HEMATOCRIT 30.2 % (35.4-49); HEMOGLOBIN 10.2 GM/dL (11.7-16.9); LYMPH % 10.3 % (8-40); MCH 28.5 pg (25.7-33.7); MCHC 33.7 g/dl (32.0-35.9); MEAN CELL VOLUME 84.5 fl (80-96); MEAN PLT VOLUME 10.3 fl (7.5-11.1); NEUT % 74.2 % (42.8-82.8); PLATELET COUNT 196 K/MM3 (134-434); RBC 3.57 M/mm3 (4.00-5.60); RDW 15.8 % (11.9-15.9); WHITE BLOOD COUNT 4.5 K/mm3 (4.0-10.0)
[2017-11-27 17:39] LABS: ALBUMIN 2.5 g/dl (3.4-5.0); ANION GAP 7 (8-16); BLOOD UREA NITROGEN 22 mg/dL (7-18); CALCIUM 7.8 mg/dL (8.5-10.1); CHLORIDE 105 mmol/L (98-107); CO2 27 mmol/L (21-32); GLUCOSE,RANDOM 298 mg/dL (74-106); MAGNESIUM 1.7 mg/dL (1.8-2.4); POTASSIUM 4.5 mmol/L (3.5-5.1); SODIUM 139 mmol/L (136-145)
[2017-11-27 17:50] LABS: ALK PHOS 84 U/L (45-117); CREATININE 1.1 mg/dL (0.7-1.3); SGOT/AST 20 U/L (15-37); SGPT/ALT 23 U/L (12-78); TOT PROT 6.1 g/dl (6.4-8.2)
[2017-11-27] MEDS ORDERED: INSULIN SLIDING SCALE (NOVOLOG) 1 VIAL SQ SCH (18:00)
--- NOTE | 2017-11-27 19:04 | PN ---
Progress Note (short form) - Note Progress Note: Patient seen and examined, agree with plan and care of the patient. Case discussed with Miss Nowak Problem List - Problems (1) IBS (irritable bowel syndrome) Code(s): K58.9 - IRRITABLE BOWEL SYNDROME WITHOUT DIARRHEA Qualifiers: Irritable bowel syndrome type: with diarrhea Qualified Code(s): K58.0 - Irritable bowel syndrome with diarrhea
--- NOTE | 2017-11-27 20:42 | PN ---
Progress Note (short form) - Note Progress Note: Pt seen and examined improved than prior. but still drowsy, no abdominal pain Constitutional: Yes:in NAD Eyes: Yes: WNL, Conjunctiva Clear, EOM Intact HENT: Yes: WNL, Atraumatic, Normocephalic Neck: Yes: Supple, Trachea Midline Cardiovascular: Yes: Regular Rate and Rhythm, S1, S2 Respiratory: Yes: Regular, CTA Bilaterally Gastrointestinal: obese, negative Tenderness (RUQ). Neurological: Yes: alert, but fatigued Psychiatric: Yes: Alert Last Vital Signs Temp Pulse Resp BP Pulse Ox 98.3 F 79 20 121/57 98 11/27/17 20:08 11/27/17 20:08 11/27/17 20:08 11/27/17 20:08 11/27/17 11:05 CBC, BMP 11/27/17 16:00 11/27/17 16:00 Current Medications Generic Name Dose Route Start Last Admin Trade Name Freq PRN Reason Stop Dose Admin Acetaminophen 650 mg 11/11/17 20:22 11/25/17 01:03 Tylenol - PO 650 mg Q6H PRN Administration PAIN LEVEL 1 - 3 Amoxicillin 500 mg 11/09/17 22:00 11/27/17 11:02 Amoxicillin - PO 500 mg BID MANAN Administration Apixaban 5 mg 11/09/17 22:00 11/27/17 11:02 Eliquis - PO 5 mg BID MANAN Administration Atorvastatin Calcium 80 mg 11/09/17 22:00 11/26/17 21:58 Lipitor - PO 80 mg HS MANAN Administration Carvedilol 6.25 mg 11/23/17 19:12 11/27/17 11:01 Coreg - PO 6.25 mg BID MANAN Administration Clotrimazole 1 applic 11/09/17 22:00 11/27/17 11:01 Lotrisone Cream (Small Tube) TP 1 applic BID MANAN Administration Docusate Sodium 100 mg 11/10/17 10:00 11/27/17 12:26 Colace - PO 100 mg DAILY MANAN Administration Duloxetine HCl 60 mg 11/11/17 10:00 11/27/17 11:15 Cymbalta - PO Not Given DAILY MANAN Folic Acid 1 mg 11/10/17 10:00 11/27/17 11:00 Folic Acid - PO 1 mg DAILY MANAN Administration Furosemide 60 mg 11/15/17 10:00 11/27/17 14:37 Lasix - PO 60 mg BIDLASIX MANAN Administration Dextrose/Sodium Chloride 1,000 mls @ 75 mls/hr 11/26/17 18:30 11/27/17 19:56 D5-Ns - IV 11/29/17 07:49 75 mls/hr ASDIR MANAN Administration Insulin Aspart 1 vial 11/27/17 22:00 Novolog Vial Sliding Scale - SQ ACHS [facility] Protocol Isosorbide Mononitrate 10 mg 11/27/17 15:00 11/27/17 15:42 Ismo - PO 10 mg BID@0800,1500 [facility] Administration Levothyroxine Sodium 125 mcg/ 175 mcg 11/10/17 07:00 11/27/17 06:13 Levothyroxine Sodium 50 mcg PO 175 mcg DAILY@0700 [facility] Administration Lisinopril 5 mg 11/12/17 10:45 11/27/17 11:00 Prinivil PO 5 mg DAILY [facility] Administration Pancrelipase 1 cap 11/14/17 08:00 11/27/17 18:11 Surendra Hayes 36,000 Units Capsule PO Not Given TIDCM [facility] Polyethylene Glycol 34 gm 11/13/17 22:00 11/27/17 11:15 Miralax (For Daily Use) - PO Not Given BID [facility] Ranitidine HCl 300 mg 11/27/17 12:00 11/27/17 14:35 Zantac Oral Solution - PO Not Given BID [facility] Rifaximin 550 mg 11/26/17 22:00 11/27/17 12:25 Xifaxan - PO 550 mg BID [facility] Administration Sodium Phosphate 133 ml 11/28/17 06:00 Fleet Adult Rectal Enema - [place] 11/28/17 06:01 ONCE ONE Spironolactone 25 mg 11/10/17 10:00 11/27/17 11:01 Aldactone - PO 25 mg DAILY [facility] Administration Tamsulosin HCl 0.4 mg 11/10/17 08:30 11/27/17 08:49 Flomax - PO 0.4 mg 0830 MANAN Administration counts improved ?med related ?acute process resolving likely ACD ID c/s noted continue to monitor
[2017-11-27] MEDS: ATORVASTATIN CA 80 MG TABLET (FP) PO SCH (23:02)
[2017-11-28] MEDS ORDERED: LEVOTHYROXINE NA 50 MCG TABLET (FP) ONE (05:49)
[2017-11-28] MEDS ORDERED: LEVOTHYROXINE NA 125 MCG TABLET (FP) ONE (05:49)
[2017-11-28] MEDS ORDERED: SODIUM PHOSPHATE/NA BIPHOS 133 ML ENEMA PR ONE (06:00)
[2017-11-28] MEDS: FUROSEMIDE 20 MG TABLET (FP) PO SCH ×2 (06:27→15:40)
[2017-11-28] MEDS: LEVOTHYROXINE 125 MCG, LEVOTHYROXINE 50 MCG PO SCH (06:27)
[2017-11-28] MEDS: INSULIN SLIDING SCALE (NOVOLOG) 1 VIAL SQ SCH ×4 (06:28→21:40)
--- NOTE | 2017-11-28 08:59 | DS ---
Physical Examination Vital Signs: Vital Signs Temperature 99.6 F 11/28/17 06:00 Pulse Rate 81 11/28/17 06:00 Respiratory Rate 18 11/28/17 06:00 Blood Pressure 123/63 11/28/17 06:00 O2 Sat by Pulse Oximetry (%) 98 11/27/17 21:00 Findings/Remarks: UNABLE TO GET OUT OF BED, NURSES HAVE TRIED TO MOTIVATE PATIENT AND GET HIM OOB TO CHAIR WITH ASSIST UNABLE TO AT THIS TIME, I SPOKE WITH ADAM THE DAUGHTER AND WE BOTH AGREED AT THIS POINT THIS IS METABOLIC TOXIC ENCEPHALOPATHY AND PATIENT NEEDS PHYSICAL THERAPY AND TIME FOR THIS TO PASS UNTIL HE IS STRONGER Constitutional: Yes: Mild Distress Eyes: Yes: WNL HENT: Yes: WNL Neck: Yes: WNL Cardiovascular: Yes: Pulse Irregular Respiratory: Yes: WNL Gastrointestinal: Yes: WNL Renal/: Yes: WNL Musculoskeletal: Yes: Muscle Weakness Extremities: Yes: WNL Edema: No Peripheral Pulses WNL: Yes Integumentary: Yes: WNL Wound/Incision: Yes: Clean/Dry Neurological: Yes: Confusion, Unsteady Gait, Weakness ...Motor Strength: LLE, RLE Psychiatric: Yes: Other Labs: CBC, BMP 11/27/17 16:00 11/27/17 16:00 Discharge Summary Reason For Visit: SOB; CORONARY ARTERY DISEASE; CHF; CHEST PAIN Current Active Problems Abdominal pain (Acute) CAD (coronary artery disease) (Acute) CHF (congestive heart failure) (Acute) Change in mental state (Acute) Change in mental status (Acute) Chest pain (Acute) Constipation (Acute) IBS (irritable bowel syndrome) (Acute) Lethargy (Acute) Obesity (BMI 30-39.9) (Acute) Pancytopenia (Acute) Pancytopenia (Acute) Shortness of breath (Acute) Small intestinal bacterial overgrowth (Acute) Hospital Course: ADMITTED WITH ABD PAIN, CHEST PAIN WORKED UP AND PATIENT DEVELOPED WITH PANCYTOPENIA LIKELY B-LACTAM REACTION TO AMOXICILLAN. TOXIC METABOLIC ENCEPHALOPATHY THAT NEEDS REHAB AND TIME FOR THIS TO CORRECT. CT BRAIN NO ACUTE CHANGES. Condition: Stable - Instructions Diet, Activity, Other Instructions: ADA LOW SODIUM BGM AC/HS AGGRESSIVE PT AND INCENTIVE SPIROMETRY Referrals: Rodriguez Rowan MD [Primary Care Provider] - 1 Week Disposition: [facility] - Home Medications Comprehensive Discharge Medication List: Ambulatory Orders Joshuazolam [Xanax] 0.25 mg PO BID 09/25/17 Amoxicillin - [Amoxicillin 500mg Capsule -] 500 mg PO BID 09/25/17 Atorvastatin Ca [Lipitor] 80 mg PO HS 09/25/17 Cetirizine HCl 10 mg PO DAILY 09/25/17 Docusate Sodium 300 mg PO DAILY 09/25/17 Duloxetine HCl [Cymbalta -] 60 mg PO DAILY 09/25/17 Folic Acid 1 mg PO DAILY 09/25/17 Gabapentin [Neurontin -] 100 mg PO BID 09/25/17 Insulin Sliding Scale [Novolog Vial Sliding Scale -] 0 units SQ TIDAC 09/25/17 Levothyroxine [Synthroid -] 175 mcg PO DAILY 09/25/17 Montelukast Sodium [Singulair] 10 mg PO DAILY 09/25/17 Polyethylene Glycol 3350 [Miralax 119 gm Btl -] 17 gm PO DAILY 09/25/17 Potassium Chloride [K-Dur -] 20 meq PO DAILY 09/25/17 Spironolactone 25 mg PO DAILY 09/25/17 Tamsulosin HCl [Flomax -] 0.4 mg PO DAILY 09/25/17 Apixaban [Eliquis -] 5 mg PO BID #6 tablet 09/28/17 Clotrimazole/Betamet Diprop [Lotrisone -] 1 applic TP BID #60 grams 09/28/17 Carvedilol [Coreg -] 6.25 mg PO BID #60 tablet 11/15/17 Furosemide [Lasix -] 60 mg PO BID tablet 11/15/17 Lipase/Protease/Amylase [Surendra Hayes 36,000 Units Capsule] 1 cap PO TIDCM #90 capsule. 11/15/17 Lisinopril [Prinivil] 5 mg PO DAILY #30 tablet 11/15/17 Metoclopramide HCl [Reglan -] 5 mg PO TIDAC #90 tablet 11/15/17 Pantoprazole Sodium [Protonix -] 40 mg PO BID #60 tablet.ec 11/15/17 metroNIDAZOLE [Flagyl -] 250 mg PO TID #15 tablet 11/15/17
[2017-11-28] MEDS: LIPASE/PROTEASE/AMYLASE 36,000 UNIT CAPSULE PO SCH ×3 (09:00→17:57)
[2017-11-28] MEDS: POLYETHYLENE GLYCOL 3350 119 GM BTL PO SCH ×2 (11:03→21:41)
[2017-11-28] MEDS ORDERED: PT OWN MED DRAWER 7, Y5N ONE ×2 (11:08→17:50)
[2017-11-28] MEDS: SPIRONOLACTONE 25 MG TABLET (FP) PO SCH (11:11)
[2017-11-28] MEDS: DOCUSATE SODIUM 100 MG CAPSULE (FP) PO SCH (11:11)
[2017-11-28] MEDS: LISINOPRIL 5 MG TABLET (FP) PO SCH (11:11)
[2017-11-28] MEDS: FOLIC ACID 1 MG TABLET (FP) PO SCH (11:11)
[2017-11-28] MEDS: TAMSULOSIN HCL 0.4 MG CAP.ER.24H (FP) PO SCH (11:11)
[2017-11-28] MEDS: CARVEDILOL 6.25 MG TABLET (FP) PO SCH ×2 (11:12→21:39)
[2017-11-28] MEDS: RANITIDINE HCL 150 MG/10 ML UNIT-DOSE PO SCH ×2 (11:17→21:38)
[2017-11-28] MEDS: RIFAXIMIN 550 MG TABLET (UD) PO SCH ×2 (11:18→21:39)
[2017-11-28] MEDS: ISOSORBIDE MONONITRATE 20 MG TABLET PO SCH ×2 (11:18→17:48)
[2017-11-28] MEDS: APIXABAN 5 MG TABLET PO SCH ×2 (11:19→21:39)
[2017-11-28] MEDS: AMOXICILLIN 500 MG CAPSULE (FP) PO SCH ×2 (11:20→21:39)
[2017-11-28] MEDS: CLOTRIMAZOLE/BETAMET DIPROP 15 GM TUBE TP SCH ×2 (11:20→21:40)
--- NOTE | 2017-11-28 11:54 | CONSULT ---
Consult Consult Specialty:: endocrine Referred by:: dr.annabi iglesias Reason for Consultation:: diabetes mellitus - History of Present Illness Chief Complaint: difficulty with sugar on current diet History of Present Illness: 82 year old male with a history of HTN, HLD, DM, RI s/p 2 stents, Hypothyroid, CHF who presents for evaluation of SOB and chest pain. The patient reports higher sugars since new diet with diet,takes high dose insulin has had mostly high sugars no hypoglycemia,denies chest pain fever or cough.has diificulty with ambulation feels weak in legs family aware need for snf given his frail condition. 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 No: Alzheimer's Cardio/Vascular: Yes: AFIB, Aneurysm (mild ascending aortic aneurysm (4.2 cm) per 01/[address]), CAD (stents x2 in 2010; thrombectomy & PCI of proximal and mid LAD with Promus Premier stents and PTCA of D1 on 12/18/[address] [facility] for acute/subacute anteroseptal RI), CHF, HTN, Hyperlipdemia, Other (ischemic cardiomyopathy (LVEF 34% per 02/16/16 nuclear study)) Gastrointestinal: Yes: Constipation, Diverticulosis Musculoskeletal: Yes: Other (rib fx's right) Endocrine: Yes: Diabetes Mellitus, Hypothyroidism - Past Surgical History Past Surgical History: Yes: Arthrosocopy (Right knee arthroscopy w/ partial medial and lateral meniscectomy 09/01/15), Colectomy - Alcohol/Substance Use Hx Alcohol Use: No History of Substance Use: reports: None - Smoking History Smoking history: Former smoker Have you smoked in the past 12 months: No Aproximately how many cigarettes per day: 0 If you are a former smoker, when did you quit?: 40 years ago - Social History Usual Living Arrangement: [facility] (since last d/c) 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 History of Recent Travel: No Home Medications - Allergies Allergies/Adverse Reactions: Allergies Allergy/AdvReac Type Severity Reaction Status Date / Time No Known Drug Allergies Allergy Verified 11/09/17 12:25 - Home Medications Home Medications: Ambulatory Orders Amoxicillin - [Amoxicillin 500mg Capsule -] 500 mg PO BID 09/25/17 Atorvastatin Ca [Lipitor] 80 mg PO HS 09/25/17 Docusate Sodium 300 mg PO DAILY 09/25/17 Duloxetine HCl [Cymbalta -] 60 mg PO DAILY 09/25/17 Folic Acid 1 mg PO DAILY 09/25/17 Insulin Sliding Scale [Novolog Vial Sliding Scale -] 0 units SQ TIDAC 09/25/17 Levothyroxine [Synthroid -] 175 mcg PO DAILY 09/25/17 Montelukast Sodium [Singulair] 10 mg PO DAILY 09/25/17 Polyethylene Glycol 3350 [Miralax 119 gm Btl -] 17 gm PO DAILY 09/25/17 Potassium Chloride [K-Dur -] 20 meq PO DAILY 09/25/17 Spironolactone 25 mg PO DAILY 09/25/17 Tamsulosin HCl [Flomax -] 0.4 mg PO DAILY 09/25/17 Apixaban [Eliquis -] 5 mg PO BID #6 tablet 09/28/17 Clotrimazole/Betamet Diprop [Lotrisone -] 1 applic TP BID #60 grams 09/28/17 Carvedilol [Coreg -] 6.25 mg PO BID #60 tablet 11/15/17 Furosemide [Lasix -] 60 mg PO BID tablet 11/15/17 Lipase/Protease/Amylase [Surendra Hayes 36,000 Units Capsule] 1 cap PO TIDCM #90 capsule. 11/15/17 Lisinopril [Prinivil] 5 mg PO DAILY #30 tablet 11/15/17 Metoclopramide HCl [Reglan -] 5 mg PO TIDAC #90 tablet 11/15/17 Pantoprazole Sodium [Protonix -] 40 mg PO BID #60 tablet.ec 11/15/17 Acetaminophen [Tylenol .Regular Strength -] 650 mg PO Q6H PRN tablet 11/28/17 Insulin (Levemir) [Levemir Vial] 10 units SQ BID@0700,2200 ml 11/28/17 Insulin Sliding Scale [Novolog Vial Sliding Scale -] 1 vial SQ ACHS units 11/28 Insulin Sliding Scale [Novolog Vial Sliding Scale -] 1 vial SQ ACHS units 11/28 Levothyroxine [Synthroid -] 175 mcg PO DAILY@0700 tablet 11/28/17 Review of Systems - Review of Systems Constitutional: reports: No Symptoms Eyes: reports: No Symptoms HENT: reports: No Symptoms Gastrointestinal: reports: No Symptoms Genitourinary: reports: No Symptoms Breasts: reports: No Symptoms Reported Musculoskeletal: reports: Joint Pain, Muscle Cramps Integumentary: reports: No Symptoms Neurological: reports: Numbness, Unsteady Gait, Weakness Endocrine: reports: Unexplained Weight Gain Physical Exam Vital Signs: Vital Signs Temperature 99.6 F 11/28/17 06:00 Pulse Rate 81 11/28/17 06:00 Respiratory Rate 18 11/28/17 06:00 Blood Pressure 123/63 11/28/17 06:00 O2 Sat by Pulse Oximetry (%) 98 11/27/17 21:00 Constitutional: Yes: Calm Eyes: Yes: EOM Intact HENT: Yes: Normocephalic Neck: Yes: WNL Cardiovascular: Yes: Regular Rate and Rhythm Respiratory: Yes: WNL Gastrointestinal: Yes: WNL ...Rectal Exam: Yes: Deferred Renal/: Yes: WNL Musculoskeletal: Yes: Back Pain Extremities: Yes: WNL Psychiatric: Yes: Alert, Oriented Labs: CBC, BMP 11/27/17 16:00 11/27/17 16:00 Problem List - Problems (1) Type 2 diabetes mellitus with diabetic neuropathic arthropathy Code(s): E11.610 - TYPE 2 DIABETES MELLITUS W DIABETIC NEUROPATHIC ARTHROPATHY (2) Constipation Code(s): K59.00 - CONSTIPATION, UNSPECIFIED (3) IBS (irritable bowel syndrome) Code(s): K58.9 - IRRITABLE BOWEL SYNDROME WITHOUT DIARRHEA Qualifiers: Irritable bowel syndrome type: with diarrhea Qualified Code(s): K58.0 - Irritable bowel syndrome with diarrhea Assessment/Plan Current Active Problems Abdominal pain (Acute) CAD (coronary artery disease) (Acute) CHF (congestive heart failure) (Acute) Change in mental state (Acute) Change in mental status (Acute) Chest pain (Acute) Constipation (Acute) IBS (irritable bowel syndrome) (Acute) Lethargy (Acute) Obesity (BMI 30-39.9) (Acute) Pancytopenia (Acute) Pancytopenia (Acute) Shortness of breath (Acute) Small intestinal bacterial overgrowth (Acute) diabetes mellitus hyperglycemia Abnormal Lab Results 11/27/17 11/27/17 16:00 16:00 RBC 3.57 L Hgb 10.2 L Hct 30.2 L Eosinophils % 7.1 H Anion Gap 7 L BUN 22 H D Random Glucose 298 H D Calcium 7.8 L Magnesium 1.7 L D Total Protein 6.1 L Albumin 2.5 L Laboratory Results - last 24 hr 11/27/17 11/27/17 11/27/17 11:50 13:48 16:00 WBC RBC Hgb Hct MCV MCH MCHC RDW Plt Count MPV Neutrophils % Lymphocytes % Monocytes % Eosinophils % Basophils % Sodium 139 Potassium 4.5 Chloride 105 Carbon Dioxide 27 Anion Gap 7 L BUN 22 H D Creatinine 1.1 D Creat Clearance w eGFR > 60 POC Glucometer 289 312 Random Glucose 298 H D Calcium 7.8 L Magnesium 1.7 L D Total Bilirubin 1.0 D AST 20 ALT 23 Alkaline Phosphatase 84 Total Protein 6.1 L Albumin 2.5 L TSH 0.59 D 11/27/17 11/27/17 11/27/17 16:00 17:42 23:00 WBC 4.5 RBC 3.57 L Hgb 10.2 L Hct 30.2 L MCV 84.5 MCH 28.5 MCHC 33.7 RDW 15.8 Plt Count 196 D MPV 10.3 Neutrophils % 74.2 Lymphocytes % 10.3 Monocytes % 8.0 Eosinophils % 7.1 H Basophils % 0.4 Sodium Potassium Chloride Carbon Dioxide Anion Gap BUN Creatinine Creat Clearance w eGFR POC Glucometer 356 283 Random Glucose Calcium Magnesium Total Bilirubin AST ALT Alkaline Phosphatase Total Protein Albumin TSH 11/28/17 06:26 WBC RBC Hgb Hct MCV MCH MCHC RDW Plt Count MPV Neutrophils % Lymphocytes % Monocytes % Eosinophils % Basophils % Sodium Potassium Chloride Carbon Dioxide Anion Gap BUN Creatinine Creat Clearance w eGFR POC Glucometer 299 Random Glucose Calcium Magnesium Total Bilirubin AST ALT Alkaline Phosphatase Total Protein Albumin TSH plan: bgm qid novolog dose adjustment restart levemir 20 units am levemir 15 unit hs physical therapy
[2017-11-28 18:52] VITALS: TEMP 99.2
[2017-11-28] MEDS ORDERED: INSULIN (NOVOLOG) ASPART 100 UNITS/ML 10ML VIAL ONE (20:56)
[2017-11-28] MEDS ORDERED: INSULIN DETEMIR 100 UNITS/ML MDV SQ ONE (20:56)
[2017-11-28] MEDS: DEXTROSE 5%-NORMAL SALINE 1,000 ML IV SCH (21:37)
[2017-11-28] MEDS: ATORVASTATIN CA 80 MG TABLET (FP) PO SCH (21:39)
[2017-11-28] MEDS ORDERED: INSULIN DETEMIR 100 UNITS/ML MDV SQ SCH (22:00)
[2017-11-29] MEDS ORDERED: LEVOTHYROXINE NA 125 MCG TABLET (FP) ONE (05:27)
[2017-11-29] MEDS ORDERED: LEVOTHYROXINE NA 50 MCG TABLET (FP) ONE (05:28)
[2017-11-29] MEDS: FUROSEMIDE 20 MG TABLET (FP) PO SCH (06:25)
[2017-11-29] MEDS: LEVOTHYROXINE 125 MCG, LEVOTHYROXINE 50 MCG PO SCH (06:25)
[2017-11-29] MEDS: INSULIN SLIDING SCALE (NOVOLOG) 1 VIAL SQ SCH ×3 (06:26→12:05)
[2017-11-29 06:35] LABS: HEMATOCRIT 31.1 % (35.4-49); HEMOGLOBIN 10.4 GM/dL (11.7-16.9); MCH 28.6 pg (25.7-33.7); MCHC 33.4 g/dl (32.0-35.9); MEAN CELL VOLUME 85.6 fl (80-96); MEAN PLT VOLUME 9.7 fl (7.5-11.1); PLATELET COUNT 233 K/MM3 (134-434); RBC 3.64 M/mm3 (4.00-5.60); RDW 16.1 % (11.9-15.9); WHITE BLOOD COUNT 5.7 K/mm3 (4.0-10.0)
[2017-11-29] MEDS ORDERED: INSULIN DETEMIR 100 UNITS/ML MDV SQ SCH (07:00)
[2017-11-29 07:58] LABS: ANION GAP 12 (8-16); BLOOD UREA NITROGEN 20 mg/dL (7-18); CALCIUM 8.6 mg/dL (8.5-10.1); CHLORIDE 107 mmol/L (98-107); CO2 26 mmol/L (21-32); GLUCOSE,RANDOM 289 mg/dL (74-106); MAGNESIUM 1.9 mg/dL (1.8-2.4); POTASSIUM 4.2 mmol/L (3.5-5.1); SODIUM 145 mmol/L (136-145)
[2017-11-29] MEDS: LIPASE/PROTEASE/AMYLASE 36,000 UNIT CAPSULE PO SCH ×2 (09:30→12:03)
[2017-11-29] MEDS ORDERED: PT OWN MED DRAWER 7, Y5N ONE (10:25)
[2017-11-29] MEDS: APIXABAN 5 MG TABLET PO SCH (10:32)
[2017-11-29] MEDS: AMOXICILLIN 500 MG CAPSULE (FP) PO SCH (10:32)
[2017-11-29] MEDS: SPIRONOLACTONE 25 MG TABLET (FP) PO SCH (10:32)
[2017-11-29] MEDS: RANITIDINE HCL 150 MG/10 ML UNIT-DOSE PO SCH (10:32)
[2017-11-29] MEDS: FOLIC ACID 1 MG TABLET (FP) PO SCH (10:32)
[2017-11-29] MEDS: DOCUSATE SODIUM 100 MG CAPSULE (FP) PO SCH (10:32)
[2017-11-29] MEDS: CARVEDILOL 6.25 MG TABLET (FP) PO SCH (10:32)
[2017-11-29] MEDS: ISOSORBIDE MONONITRATE 20 MG TABLET PO SCH (10:33)
[2017-11-29] MEDS: LISINOPRIL 5 MG TABLET (FP) PO SCH (10:33)
[2017-11-29] MEDS: CLOTRIMAZOLE/BETAMET DIPROP 15 GM TUBE TP SCH (10:35)
[2017-11-29] MEDS: TAMSULOSIN HCL 0.4 MG CAP.ER.24H (FP) PO SCH (10:38)
[2017-11-29] MEDS: POLYETHYLENE GLYCOL 3350 119 GM BTL PO SCH (10:49)
--- NOTE | 2017-11-29 11:23 | PN ---
Progress Note, Physician Chief Complaint: pateint more awake today and eat his Breakfast PT had him stand up with assist of two people - Current Medication List Current Medications: Active Medications Acetaminophen (Tylenol -) 650 mg PO Q6H PRN PRN Reason: PAIN LEVEL 1 - 3 Last Admin: 11/25/17 01:03 Dose: 650 mg Amoxicillin (Amoxicillin -) 500 mg PO BID [facility] Last Admin: 11/29/17 10:32 Dose: 500 mg Apixaban (Eliquis -) 5 mg PO BID [facility] Last Admin: 11/29/17 10:32 Dose: 5 mg Atorvastatin Calcium (Lipitor -) 80 mg PO HS [facility] Last Admin: 11/28/17 21:39 Dose: 80 mg Carvedilol (Coreg -) 6.25 mg PO BID [facility] Last Admin: 11/29/17 10:32 Dose: 6.25 mg Clotrimazole (Lotrisone Cream (Small Tube)) 1 applic TP BID [facility] Last Admin: 11/29/17 10:35 Dose: 1 applic Docusate Sodium (Colace -) 100 mg PO DAILY [facility] Last Admin: 11/29/17 10:32 Dose: 100 mg Duloxetine HCl (Cymbalta -) 60 mg PO DAILY [facility] Last Admin: 11/27/17 11:15 Dose: Not Given Folic Acid (Folic Acid -) 1 mg PO DAILY [facility] Last Admin: 11/29/17 10:32 Dose: 1 mg Furosemide (Lasix -) 60 mg PO BIDLASIX [facility] Last Admin: 11/29/17 06:25 Dose: 60 mg Insulin Aspart (Novolog Vial Sliding Scale -) 1 vial SQ [facility] PRN Reason: Protocol Last Admin: 11/29/17 06:26 Dose: 5 units Insulin Detemir (Levemir Vial) 20 units SQ AM [facility] Last Admin: 11/29/17 06:26 Dose: 20 units Insulin Detemir (Levemir Vial) 15 units SQ HS [facility] Last Admin: 11/28/17 21:39 Dose: 15 units Isosorbide Mononitrate (Ismo -) 10 mg PO BID@0800,1500 [facility] Last Admin: 11/29/17 10:33 Dose: 10 mg Levothyroxine Sodium 125 mcg/ (Levothyroxine Sodium 50 mcg) 175 mcg PO DAILY@ 0700 [facility] Last Admin: 11/29/17 06:25 Dose: 175 mcg Lisinopril (Prinivil) 5 mg PO DAILY [facility] Last Admin: 11/29/17 10:33 Dose: 5 mg Pancrelipase (Creon Dr 36,000 Units Capsule) 1 cap PO TIDCM [facility] Last Admin: 11/29/17 09:30 Dose: 1 cap Polyethylene Glycol (Miralax (For Daily Use) -) 34 gm PO BID [facility] Last Admin: 11/29/17 10:49 Dose: 17 grams Ranitidine HCl (Zantac Oral Solution -) 300 mg PO BID [facility] Last Admin: 11/29/17 10:32 Dose: 300 mg Rifaximin (Xifaxan -) 550 mg PO BID [facility] Last Admin: 11/28/17 21:39 Dose: 550 mg Spironolactone (Aldactone -) 25 mg PO DAILY [facility] Last Admin: 11/29/17 10:32 Dose: 25 mg Tamsulosin HCl (Flomax -) 0.4 mg PO 829 [facility] Last Admin: 11/29/17 10:38 Dose: 0.4 mg - Objective Vital Signs: Vital Signs Temperature 99.2 F 11/29/17 06:00 Pulse Rate 76 11/29/17 06:00 Respiratory Rate 18 11/29/17 06:00 Blood Pressure 111/69 11/29/17 06:00 O2 Sat by Pulse Oximetry (%) 98 11/28/17 21:00 Constitutional: Yes: Calm Neck: Yes: Trachea Midline Cardiovascular: Yes: Regular Rate and Rhythm, S1, S2 Respiratory: Yes: CTA Bilaterally Gastrointestinal: Yes: Normal Bowel Sounds, Soft Edema: No Neurological: Yes: Alert, Oriented Labs: CBC, BMP 11/29/17 06:00 11/29/17 06:00 INR, PTT INR 1.47 (0.82-1.09) H 11/22/17 11:10 Fibrinogen 324.0 mg/dL (238-498) 11/22/17 11:10 Problem List - Problems (1) Lethargy Assessment/Plan: ct head noted neurology on board endocrine for DM check tsh no signs of infection ( no fever , normal WBC count) hold cymbalta and dc singular and claritin calorie count patricia barry note appreciate pureed food will need some sanjiv to recover trying to get intouch with family to see of will send him to SNFfamily refused yesterday and have 40 staris in house Code(s): R53.83 - OTHER FATIGUE (2) CHF (congestive heart failure) Assessment/Plan: improved lasix coreg lisinopril and imdur aldactone pleural effusion on lasix Code(s): I50.9 - HEART FAILURE, UNSPECIFIED Qualifiers: Heart failure type: systolic Heart failure chronicity: acute on chronic Qualified Code(s): I50.23 - Acute on chronic systolic (congestive) heart failure (3) Constipation Assessment/Plan: miralax and colace Code(s): K59.00 - CONSTIPATION, UNSPECIFIED (4) IBS (irritable bowel syndrome) Assessment/Plan: pancreatic insufficiey on creon Code(s): K58.9 - IRRITABLE BOWEL SYNDROME WITHOUT DIARRHEA Qualifiers: Irritable bowel syndrome type: with diarrhea Qualified Code(s): K58.0 - Irritable bowel syndrome with diarrhea (5) Hypothyroid Assessment/Plan: on synthroid Code(s): E03.9 - HYPOTHYROIDISM, UNSPECIFIED (6) Atrial fibrillation Assessment/Plan: eliquis coreg Code(s): I48.91 - UNSPECIFIED ATRIAL FIBRILLATION Qualifiers: Atrial fibrillation type: paroxysmal Qualified Code(s): I48.0 - Paroxysmal atrial fibrillation Assessment/Plan jesse need extensive rehab family jesse have take full responsiblilty if the y take him home bc his total care right now till he improves strongly advise to send the patient to go for STR
--- NOTE | 2017-11-29 11:39 | PN ---
Progress Note (short form) - Note Progress Note: spoke to cruz [phone] she says that no stairs at the home and long [address] going up to the kitchen entrance she said nephew who live at home with him and they will help lift him he has hospital bed ,wheel chair and walker she said that patient will refuse care a snf if sent there and family feels that it will be better to take him home and they have his room all set up spoke to social welfare clerk to go homw with vns and home PT in ambulance explained to daughter that he is total assist right now and will need extensive rehab and needs assist of two people to get him up and out of bed. Problem List - Problems (1) Lethargy Code(s): R53.83 - OTHER FATIGUE (2) CHF (congestive heart failure) Code(s): I50.9 - HEART FAILURE, UNSPECIFIED Qualifiers: Heart failure type: systolic Heart failure chronicity: acute on chronic Qualified Code(s): I50.23 - Acute on chronic systolic (congestive) heart failure (3) Constipation Code(s): K59.00 - CONSTIPATION, UNSPECIFIED (4) IBS (irritable bowel syndrome) Code(s): K58.9 - IRRITABLE BOWEL SYNDROME WITHOUT DIARRHEA Qualifiers: Irritable bowel syndrome type: with diarrhea Qualified Code(s): K58.0 - Irritable bowel syndrome with diarrhea (5) Hypothyroid Code(s): E03.9 - HYPOTHYROIDISM, UNSPECIFIED (6) Atrial fibrillation Code(s): I48.91 - UNSPECIFIED ATRIAL FIBRILLATION Qualifiers: Atrial fibrillation type: paroxysmal Qualified Code(s): I48.0 - Paroxysmal atrial fibrillation
--- NOTE | 2017-11-29 11:50 | PN ---
Progress Note, PATIENT REPRESENTATIVE - Note Progress Note: Selected Entries 11/23/17 11/23/17 11/23/17 06:00 09:43 14:00 Breakfast Lunch Supper Temperature 98.1 F 98.1 F 98.1 F 11/23/17 11/23/17 11/24/17 18:00 22:00 06:00 Breakfast Lunch Supper Temperature 97.9 F 98.6 F 98.0 F 11/24/17 11/24/17 11/24/17 10:00 14:09 17:50 Breakfast Lunch Supper Temperature 98.3 F 98.3 F 98.3 F 11/24/17 11/25/17 11/25/17 20:28 06:00 07:04 Breakfast Lunch Supper Temperature 99.8 F H 97.6 F 97.6 F 11/25/17 11/25/17 11/25/17 09:01 09:09 10:00 Breakfast 25% 25% Lunch Supper Temperature 98.0 F 11/25/17 11/25/17 11/25/17 13:04 13:56 17:04 Breakfast Lunch 0 Supper Temperature 97.8 F 98.3 F 98.5 F 11/25/17 11/25/17 11/25/17 18:00 18:20 21:04 Breakfast Lunch Supper 50% Temperature 98.5 F 99.3 F 11/25/17 11/26/17 11/26/17 22:00 05:20 09:00 Breakfast Lunch Supper Temperature 99.3 F 98.2 F 97.8 F 11/26/17 11/26/17 11/26/17 14:00 14:06 23:48 Breakfast 75% 75% Lunch 25% 25% Supper 25% Temperature 99.5 F 99.5 F 11/27/17 11/27/17 11/27/17 06:00 09:15 10:54 Breakfast 25% Lunch Supper Temperature 99.1 F 99.3 F 11/28/17 11/28/17 11/28/17 06:00 14:46 18:51 Breakfast Lunch Supper 50% Temperature 99.6 F 99.3 F 99.2 F 11/29/17 06:00 Breakfast Lunch Supper Temperature 99.2 F Laboratory Tests 11/29/17 06:00 WBC 5.7 Much more awake! Ate 75% of breakfast. On puree/nectar thick liquid. Swallowing reassessed.Cough response on 3 oz water test. Up for d/c home today. Suggest Dys ground and nectar thick liquid at home. Out pt MBS to upgrade diet safely, once pt is stronger.
[2017-11-29] MEDS: RIFAXIMIN 550 MG TABLET (UD) PO SCH (12:03)
[2017-11-29 13:34] VITALS: BP 130/72; PULSE 68
== END 2017-11-29 13:37 | disposition home health service (06) | DRG 291 ==
LOC: JER 12:04 → JERBED 14:44 → OBSVTOIN 16:35 → J4S 17:05 → J5S 11-25 15:52
PROVIDERS: ADMIT Family Medicine; ATTEND Family Medicine
DX: I11.0 Hypertensive heart disease with heart failure (principal); G92 Toxic encephalopathy; D61.811 Other drug-induced pancytopenia; T85.79XA Infection and inflammatory reaction due to other internal prosthetic devices, implants and grafts, initial encounter; I50.23 Acute on chronic systolic (congestive) heart failure; I25.10 Atherosclerotic heart disease of native coronary artery without angina pectoris; Z98.61 Coronary angioplasty status; R41.82 Altered mental status, unspecified; R07.9 Chest pain, unspecified; K59.00 Constipation, unspecified; K58.9 Irritable bowel syndrome, unspecified; E66.9 Obesity, unspecified; Z68.39 Body mass index [BMI] 39.0-39.9, adult; E03.9 Hypothyroidism, unspecified; I48.0 Paroxysmal atrial fibrillation; R53.83 Other fatigue; R19.7 Diarrhea, unspecified; J44.9 Chronic obstructive pulmonary disease, unspecified; E10.65 Type 1 diabetes mellitus with hyperglycemia; E11.22 Type 2 diabetes mellitus with diabetic chronic kidney disease; E11.311 Type 2 diabetes mellitus with unspecified diabetic retinopathy with macular edema; E78.5 Hyperlipidemia, unspecified; Y83.9 Surgical procedure, unspecified as the cause of abnormal reaction of the patient, or of later complication, without mention of misadventure at the time of the procedure
CPT/HCPCS: 36415; 36600; 70450-TC; 71045-TC-FY; 71046-TC-FY; 71250-TC; 73030-TC-LT-FY; 73070-TC-LT-FY; 73502-TC-LT-FY; 74018-TC-FY; 74019-TC-FY; 74176-TC; 76700-TC; 80048; 80053; 80061; 81003; 82140; 82550; 82607; 82747; 82803; 82962; 83036; 83605; 83615; 83690; 83721; 83735; 83880; 84100; 84425; 84436; 84443; 84484; 85014; 85025; 85027; 85384; 85610; 85651; 85730; 86140; 86593; 86644; 86645; 87040; 87086; 87324; 87389; 87449; 87798; 87804; 88300-TC; 93005; 93010; 94010; 94640; 97116-GP; 97161-GP; 97164-GP; 99283-25; G0378; G0480

== ENCOUNTER 2017-12-10 09:13 | Inpatient (IN) | payer OTHER ==
[2017-12-10 09:37] VITALS: BMI 30.1
[2017-12-10] MEDS ORDERED: ACETAMINOPHEN 1000 MG/100 ML VIAL (NON FORMULARY) IVPB ONE (09:59)
[2017-12-10] MEDS ORDERED: SODIUM CHLORIDE 0.9% 1000 ML INFUS.BAG IV ONE (09:59)
[2017-12-10] MEDS ORDERED: ACETAMINOPHEN INJECTION 100 ML IVPB ONE (10:15)
[2017-12-10 10:36] LABS: BASO % 0.9 % (0-2.0); EOS % 4.6 % (0-4.5); HEMOGLOBIN 10.8 GM/dL (11.7-16.9); LYMPH % 12.6 % (8-40); MCH 27.8 pg (25.7-33.7); MCHC 32.8 g/dl (32.0-35.9); MEAN CELL VOLUME 84.8 fl (80-96); MEAN PLT VOLUME 10.4 fl (7.5-11.1); MONO % 12.4 % (3.8-10.2); NEUT % 69.5 % (42.8-82.8); PLATELET COUNT 193 K/MM3 (134-434); RBC 3.89 M/mm3 (4.00-5.60); RDW 16.7 % (11.9-15.9); WHITE BLOOD COUNT 8.4 K/mm3 (4.0-10.0)
[2017-12-10 10:56] LABS: ALBUMIN 3.3 g/dl (3.4-5.0); ALK PHOS 130 U/L (45-117); ANION GAP 8 (8-16); BILIRUBIN,TOTAL 0.4 mg/dL (0.2-1.0); BLOOD UREA NITROGEN 38 mg/dL (7-18); CALCIUM 8.2 mg/dL (8.5-10.1); CHLORIDE 95 mmol/L (98-107); CO2 24 mmol/L (21-32); CREATININE 1.1 mg/dL (0.7-1.3); GLUCOSE,RANDOM 203 mg/dL (74-106); SGPT/ALT 19 U/L (12-78); SODIUM 127 mmol/L (136-145); TOT PROT 7.8 g/dl (6.4-8.2)
[2017-12-10 11:02] LABS: POTASSIUM 5.1 mmol/L (3.5-5.1); SGOT/AST 22 U/L (15-37)
--- NOTE | 2017-12-10 12:36 | PDOC ---
History of Present Illness - General History Source: Patient Exam Limitations: No Limitations - History of Present Illness Initial Comments: 12/10/17 13:09 The patient is an 82 year old male with a significant PMH of CHF, TX (s/p stents x2 and PPM), HTN, hyperlipidemia, diabetes, and hypothyroidism who presents to the emergency department with lower back pain s/p trip and fall approximately 2 days ago. The patient reports he was walking to the TV in his house when he turned around quickly and fell on the ground. He reports he is unsure if he hit his head but denies LOC. He denies experiencing any symptoms prior to the fall. The patient denies chest pain, shortness of breath, headache and dizziness. Denies fever, chills, nausea, vomit, diarrhea and constipation. Denies dysuria, frequency, urgency and hematuria. Allergies: NKDA Past surgical history: Cardiac stent placement x2. Permanent pacemaker. Social history: Former smoker. No reported alcohol or drug use. PCP: Dr. Rowan <Martin Payne - Last Filed: 12/10/17 13:09> <Malvin Paniagua - Last Filed: 12/10/17 17:21> - General Chief Complaint: Back Pain Stated Complaint: BACK PAIN Time Seen by Provider: 12/10/17 09:33 Past History <Martin Payne - Last Filed: 12/10/17 13:09> - Past Medical History Anemia: No Asthma: No Cancer: No Cardiac Disorders: Yes (2 cardiac stents) CVA: No COPD: No CHF: No DVT: No Dementia: (?) Diabetes: Yes (IDDM) Dialysis: No GI Disorders: Yes (DIVERTICULITIS, colectomy) Disorders: No HTN: Yes Hypercholesterolemia: Yes Kidney Stones: No Liver Disease: No Psychiatric Problems: No Seizures: No Thyroid Disease: Yes (HYPOTHYROIDISM) Lung CA: No - Surgical History Abdominal Surgery: Yes (FOR DIVERTICULITIS; partial colectomy) Appendectomy: No Cardiac Surgery: Yes (STENT X 2,ppm) Cholecystectomy: No Gastric Stapling: No GI Surgery: Yes Lung Surgery: No Neurologic Surgery: No Orthopedic Surgery: No - Immunization History Td Vaccination: No TDAP Vaccination: (unknown on last date now will receive on 12/18/2015) Immunization Up to Date: Yes (FLU ) - Suicide/Smoking/Psychosocial Hx Smoking Status: No Smoking History: Former smoker Have you smoked in the past 12 months: No Number of Cigarettes Smoked Daily: 0 If you are a former smoker, when did you quit?: 40 years ago Information on smoking cessation initiated: No Hx Alcohol Use: No Drug/Substance Use Hx: No Substance Use Type: None Hx Substance Use Treatment: No <Malvin Paniagua - Last Filed: 12/10/17 17:21> - Past Medical History Allergies/Adverse Reactions: Allergies Allergy/AdvReac Type Severity Reaction Status Date / Time No Known Drug Allergies Allergy Verified 12/10/17 09:37 Home Medications: Ambulatory Orders Atorvastatin Ca [Lipitor] 80 mg PO HS 09/25/17 Docusate Sodium 300 mg PO DAILY 09/25/17 Duloxetine HCl [Cymbalta -] 60 mg PO DAILY 09/25/17 Folic Acid 1 mg PO DAILY 09/25/17 Levothyroxine [Synthroid -] 175 mcg PO DAILY 09/25/17 Montelukast Sodium [Singulair] 10 mg PO DAILY 09/25/17 Polyethylene Glycol 3350 [Miralax 119 gm Btl -] 17 gm PO DAILY 09/25/17 Potassium Chloride [K-Dur -] 20 meq PO DAILY 09/25/17 Spironolactone 25 mg PO DAILY 09/25/17 Tamsulosin HCl [Flomax -] 0.4 mg PO DAILY 09/25/17 Apixaban [Eliquis -] 5 mg PO BID #6 tablet 09/28/17 Clotrimazole/Betamet Diprop [Lotrisone -] 1 applic TP BID #60 grams 09/28/17 Carvedilol [Coreg -] 6.25 mg PO BID #60 tablet 11/15/17 Furosemide [Lasix -] 60 mg PO BID tablet 11/15/17 Lipase/Protease/Amylase [Surendra Hayes 36,000 Units Capsule] 1 cap PO TIDCM #90 capsule. 11/15/17 Lisinopril [Prinivil] 5 mg PO DAILY #30 tablet 11/15/17 Metoclopramide HCl [Reglan -] 5 mg PO TIDAC #90 tablet 11/15/17 Pantoprazole Sodium [Protonix -] 40 mg PO BID #60 tablet.ec 11/15/17 Acetaminophen [Tylenol .Regular Strength -] 650 mg PO Q6H PRN tablet 11/28/17 Insulin (Levemir) [Levemir Vial] 10 units SQ BID@0700,2200 ml 11/28/17 Insulin Sliding Scale [Novolog Vial Sliding Scale -] 1 vial SQ ACHS units 11/28 Review of Systems - Review of Systems Able to Perform ROS?: Yes Comments:: 12/10/17 13:09 A complete review of 10 out of 10 review of systems is taken and is negative apart from what is previously mentioned below and in the HPI. <Martin Payne - Last Filed: 12/10/17 13:09> *Physical Exam - Vital Signs Last Vital Signs Temp Pulse Resp BP Pulse Ox 97.8 F 83 16 116/58 100 12/10/17 09:15 12/10/17 09:15 12/10/17 09:15 12/10/17 09:15 12/10/17 09:15 - Physical Exam Comments: 12/10/17 13:09 Vitals: Triage Vital signs reviewed General Appearance: no acute distress, well nourished well developed, Head: Atraumatic, normocephalic Eyes: Pupils equal reactive round, extraocular movement intact Neck: Supple;No Nuchal rigidity Cardiac: Regular rate and rhythm, no murmurs, no rubs, no gallops, Extremities: Full range of motion to all extremities, no cyanosis, clubbing, or edema Back: No CVA tenderness. No bony deformities. Neuro: AOX3; Cranial Nerves 2-12 grossly intact, Strength intact to all extremities, Sensation intact to all extremities Psych: normal mood, normal affect <Martin Payne - Last Filed: 12/10/17 13:09> - Vital Signs Last Vital Signs Temp Pulse Resp BP Pulse Ox 97.8 F 83 16 116/58 100 12/10/17 09:15 12/10/17 09:15 12/10/17 09:15 12/10/17 09:15 12/10/17 09:15 <Malvin Paniagua - Last Filed: 12/10/17 17:21> ED Treatment Course - LABORATORY CBC & Chemistry Diagram: 12/10/17 10:25 12/10/17 10:25 - ADDITIONAL ORDERS Additional order review: Laboratory Results 12/10/17 10:25 Sodium 127 L Potassium 5.1 Chloride 95 L Carbon Dioxide 24 Anion Gap 8 BUN 38 H Creatinine 1.1 Creat Clearance w eGFR > 60 Random Glucose 203 H Calcium 8.2 L Total Bilirubin 0.4 D AST 22 D ALT 19 Alkaline Phosphatase 130 H Total Protein 7.8 Albumin 3.3 L 12/10/17 10:25 RBC 3.89 L MCV 84.8 MCHC 32.8 RDW 16.7 H MPV 10.4 D Neutrophils % 69.5 Lymphocytes % 12.6 D Monocytes % 12.4 H Eosinophils % 4.6 H D Basophils % 0.9 - Medications Given in the ED: ED Medications Discontinued Medications Generic Name Dose Route Start Last Admin Trade Name Freq PRN Reason Stop Dose Admin Acetaminophen 1,000 mg 12/10/17 09:59 12/10/17 10:22 Ofirmev Injection - IVPB 12/10/17 10:00 1,000 mg ONCE ONE Administration Sodium Chloride 1,000 ml 12/10/17 09:59 12/10/17 10:22 Normal Saline - IV 12/10/17 10:00 1,000 ml ONCE ONE Administration <Martin Payne - Last Filed: 12/10/17 13:09> - LABORATORY CBC & Chemistry Diagram: 12/10/17 10:25 12/10/17 10:25 - ADDITIONAL ORDERS Additional order review: Laboratory Results 12/10/17 10:25 Sodium 127 L Potassium 5.1 Chloride 95 L Carbon Dioxide 24 Anion Gap 8 BUN 38 H Creatinine 1.1 Creat Clearance w eGFR > 60 Random Glucose 203 H Calcium 8.2 L Total Bilirubin 0.4 D AST 22 D ALT 19 Alkaline Phosphatase 130 H Total Protein 7.8 Albumin 3.3 L 12/10/17 10:25 RBC 3.89 L MCV 84.8 MCHC 32.8 RDW 16.7 H MPV 10.4 D Neutrophils % 69.5 Lymphocytes % 12.6 D Monocytes % 12.4 H Eosinophils % 4.6 H D Basophils % 0.9 - RADIOLOGY Radiology Studies Ordered: Category Date Time Status LUMBAR SPINE CT W/O CONTRAST [CT] Stat CT Scan 12/10/17 10:00 Taken CXRPORT [CHEST X-RAY PORTABLE*] [RAD] Stat Radiology 12/10/17 10:00 Completed - Medications Given in the ED: ED Medications Discontinued Medications Generic Name Dose Route Start Last Admin Trade Name Freq PRN Reason Stop Dose Admin Acetaminophen 1,000 mg 12/10/17 09:59 12/10/17 10:22 Ofirmev Injection - IVPB 12/10/17 10:00 1,000 mg ONCE ONE Administration Sodium Chloride 1,000 ml 12/10/17 09:59 12/10/17 10:22 Normal Saline - IV 12/10/17 10:00 1,000 ml ONCE ONE Administration <Malvin Paniagua - Last Filed: 12/10/17 17:21> Medical Decision Making - Medical Decision Making 12/10/17 13:09 A&P Lab: CBC, CMP, UA Radiology: Lumbar spine CT, CXR Meds: Acetaminophen injection, normal saline. Micro: Urine culture. <Martin Payne - Last Filed: 12/10/17 13:09> - Medical Decision Making Patient with multiple falls at home. Here in the emergency department age indeterminate T12 fracture as well as slight hyponatremia Case discussed with patient's primary care provider recommends observation overnight and likely placement and pain management 12/10/17 17:20 <Malvin Paniagua - Last Filed: 12/10/17 17:21> *DC/Admit/Observation/Transfer - Attestations Scribe Attestion: 12/10/17 13:10 Documentation prepared by Martin Payne, acting as certified medical dosimetrist for Malvin Paniagua MD. <Martin Payne - Last Filed: 12/10/17 13:09> - Discharge Dispostion Admit: Yes <Malvin Paniagua - Last Filed: 12/10/17 17:21> Diagnosis at time of Disposition: Hyponatremia Fall Qualifiers: Encounter type: initial encounter Qualified Code(s): W19.XXXA - Unspecified fall, initial encounter
[2017-12-10] MEDS ORDERED: traMADol HCL 50 MG TABLET PO ONE (15:25)
[2017-12-10] MEDS ORDERED: traMADol HCL 50 MG TABLET ONE ×2 (15:32→22:36)
[2017-12-10] MEDS ORDERED: morphine SULFATE 4 MG/ML VIAL ONE (15:33)
[2017-12-10] MEDS ORDERED: morphine CARPU-JECT 2 MG/1 ML DISP.SYRIN IVPUSH ONE (15:45)
[2017-12-10] MEDS ORDERED: FUROSEMIDE 20 MG TABLET (FP) PO SCH ×2 (15:45→16:21)
--- NOTE | 2017-12-10 15:50 | HP ---
Admitting History and Physical - Primary Care Physician PCP: Rodriguez Rowan - Admission Chief Complaint: back pain History of Present Illness: HPI This is a 82 year old male pmhx CAD (s/p stents x2), CHF, dementia, DM II, diverticulitis (s/p partial colectomy), HTN, HLD, hypothyroidism, s/p mechanical fall 12/08 after tripping outside. At that time, CT head and pelvis was negative for acute pathology. Today the patient presents with increased pain in the last 2 days. Family has also noted pt to be increasing unsteady at home. Currently, pt is ambulating, however in acute pain requesting pain medication. He denies sob, chest pain, abd pain, n/v, changes in urinary or bowel habits. He wants to eat and urinate. CT head and pelvis unremarkable. T11 fracture noted, likely old. Pt with no midline T-spine tenderness. 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 No: Alzheimer's Cardiovascular: Yes: AFIB, Aneurysm (mild ascending aortic aneurysm (4.2 cm) per 01/[address]), CAD (stents x2 in 2010; thrombectomy & PCI of proximal and mid LAD with Promus Premier stents and PTCA of D1 on 12/18/15 at [facility] for acute/subacute anteroseptal [place]), CHF, HTN, Hyperlipdemia, Other (ischemic cardiomyopathy (LVEF 34% per 02/16/16 nuclear study)) Gastrointestinal: Yes: Constipation, Diverticulosis Heme/Onc: Yes: Anemia Musculoskeletal: Yes: Other (rib fx's right) Endocrine: Yes: Diabetes Mellitus, Hypothyroidism - Past Surgical History Past Surgical History: Yes: Arthrosocopy (Right knee arthroscopy w/ partial medial and lateral meniscectomy 09/01/15), Colectomy - Smoking History Smoking history: Former smoker Have you smoked in the past 12 months: No Aproximately how many cigarettes per day: 0 If you are a former smoker, when did you quit?: 40 years ago - Alcohol/Substance Use Hx Alcohol Use: No History of Substance Use: reports: None - Social History 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 History of Recent Travel: No Home Medications - Allergies Allergies/Adverse Reactions: Allergies Allergy/AdvReac Type Severity Reaction Status Date / Time No Known Drug Allergies Allergy Verified 12/10/17 09:37 - Home Medications Home Medications: Ambulatory Orders Atorvastatin Ca [Lipitor] 80 mg PO HS 09/25/17 Docusate Sodium 300 mg PO DAILY 09/25/17 Duloxetine HCl [Cymbalta -] 60 mg PO DAILY 09/25/17 Folic Acid 1 mg PO DAILY 09/25/17 Levothyroxine [Synthroid -] 175 mcg PO DAILY 09/25/17 Montelukast Sodium [Singulair] 10 mg PO DAILY 09/25/17 Polyethylene Glycol 3350 [Miralax 119 gm Btl -] 17 gm PO DAILY 09/25/17 Potassium Chloride [K-Dur -] 20 meq PO DAILY 09/25/17 Spironolactone 25 mg PO DAILY 09/25/17 Tamsulosin HCl [Flomax -] 0.4 mg PO DAILY 09/25/17 Apixaban [Eliquis -] 5 mg PO BID #6 tablet 09/28/17 Clotrimazole/Betamet Diprop [Lotrisone -] 1 applic TP BID #60 grams 09/28/17 Carvedilol [Coreg -] 6.25 mg PO BID #60 tablet 11/15/17 Furosemide [Lasix -] 60 mg PO BID tablet 11/15/17 Lipase/Protease/Amylase [Surendra Hayes 36,000 Units Capsule] 1 cap PO TIDCM #90 capsule.dr 11/15/17 Lisinopril [Prinivil] 5 mg PO DAILY #30 tablet 11/15/17 Metoclopramide HCl [Reglan -] 5 mg PO TIDAC #90 tablet 11/15/17 Pantoprazole Sodium [Protonix -] 40 mg PO BID #60 tablet.ec 11/15/17 Acetaminophen [Tylenol .Regular Strength -] 650 mg PO Q6H PRN tablet 11/28/17 Insulin (Levemir) [Levemir Vial] 10 units SQ BID@0700,2200 ml 11/28/17 Insulin Sliding Scale [Novolog Vial Sliding Scale -] 1 vial SQ ACHS units 11/28 Physical Examination Vital Signs: Vital Signs Temperature 97.8 F 12/10/17 09:15 Pulse Rate 83 12/10/17 09:15 Respiratory Rate 16 12/10/17 09:15 Blood Pressure 116/58 12/10/17 09:15 O2 Sat by Pulse Oximetry (%) 100 12/10/17 09:15 Labs: CBC, BMP 12/10/17 10:25 12/10/17 10:25 Imaging - Results Chest X-ray: Report Reviewed, Image Reviewed (T11 fracture noted, likely old. no disc herniation) Cat Scan: Report Reviewed Problem List - Problems (1) Intractable low back pain Code(s): M54.5 - LOW BACK PAIN (2) Fall Code(s): W19.XXXA - UNSPECIFIED FALL, INITIAL ENCOUNTER Qualifiers: Encounter type: initial encounter Qualified Code(s): W19.XXXA - Unspecified fall, initial encounter (3) ASHD (arteriosclerotic heart disease) Code(s): I25.10 - ATHSCL HEART DISEASE OF [place] CORONARY ARTERY W/O ANG PCTRS (4) Atrial fibrillation Code(s): I48.91 - UNSPECIFIED ATRIAL FIBRILLATION Qualifiers: Atrial fibrillation type: paroxysmal Qualified Code(s): I48.0 - Paroxysmal atrial fibrillation (5) CAD (coronary artery disease) Code(s): I25.10 - ATHSCL HEART DISEASE OF [place] CORONARY ARTERY W/O ANG PCTRS Qualifiers: Coronary Disease-Associated Artery/Lesion type: unspecified vessel or lesion type [place] vs. transplanted heart: [place] heart Associated angina: angina presence unspecified Qualified Code(s): I25.10 - Atherosclerotic heart disease of [place] coronary artery without angina pectoris (6) CHF (congestive heart failure) Code(s): I50.9 - HEART FAILURE, UNSPECIFIED Qualifiers: Heart failure type: systolic Heart failure chronicity: acute on chronic Qualified Code(s): I50.23 - Acute on chronic systolic (congestive) heart failure (7) COPD (chronic obstructive pulmonary disease) Code(s): J44.9 - CHRONIC OBSTRUCTIVE PULMONARY DISEASE, UNSPECIFIED (8) Diabetes mellitus, insulin dependent (IDDM), uncontrolled Code(s): E10.65 - TYPE 1 DIABETES MELLITUS WITH HYPERGLYCEMIA Qualifiers: (9) Hypothyroid Code(s): E03.9 - HYPOTHYROIDISM, UNSPECIFIED (10) Unsteady gait Code(s): R26.81 - UNSTEADINESS ON FEET Assessment/Plan Assessment: 82 year old male admitted with worsening low back pain Plan: 1. Intractable back pain - Start Ultram q6 - Morphine 0.5mg x1 - PT eval - SNF placement 2. CAD s/p stents - Decrease Lasix 60mg daily - Coreg 6.25mg BID - Lisinopril 5mg - Aldactone 25mg daily 3. A fib - Eliquis 5mg BID 4. CHF - Not in exacerbation 5. DM II - Levemir 20units qam - Levemir 15 units qpm - ISS, BGM ACHS 6. Hypothyroid - Synthroid 175mcg 7. COPD - Not in exacerbation - Singulair 10mg HS 8. BPH - Flomax 9. Pleural effusion - CXR improved here today - Lasix as above 10. Hyponatremia - Corrected 129.5 - Possible due over diuresis - Decrease lasix 60 daily 11. Weakness - Exacerbated from fall and hyponatremia - Check bmp in am Visit type - Emergency Visit Emergency Visit: Yes Care time: The patient presented to the Emergency Department on the above date and was hospitalized for further evaluation of their emergent condition. - New Patient This patient is new to me today: Yes Date on this admission: 12/10/17 - Critical Care Critical Care patient: No Hospitalist Screening - Colonoscopy Questionnaire Colonoscopy Questionnaire: Colonoscopy Questionnaire - Patient: 50 - 75 years old and never had a screening colonoscopy: Unknown History of colon or rectal polyps, or CA: Unknown History of IBD, Crohn's disease or UC: Unknown History of abdominal radiation therapy as a child: Unknown - Relative: 1 with colon or rectal CA, or polyps at age 60 or younger: Unknown Colon or rectal CA diagnosed at age 45 or younger: Unknown Multiple relatives with colon or rectal CA: Unknown - Outcome: Screening Result: Negative Screen
[2017-12-10] MEDS ORDERED: HEPARIN NA (PORCINE) 5,000 UNITS/ML 1ML VIAL SQ SCH (18:00)
[2017-12-10] MEDS: INSULIN SLIDING SCALE (NOVOLOG) 1 VIAL SQ SCH ×2 (18:14→23:00)
[2017-12-10] MEDS ORDERED: INSULIN DETEMIR 100 UNITS/ML MDV SQ SCH (22:00)
[2017-12-10] MEDS: INSULIN DETEMIR 100 UNITS/ML MDV SQ SCH (23:00)
[2017-12-10] MEDS: ATORVASTATIN CA 80 MG TABLET (FP) PO SCH (23:00)
[2017-12-10] MEDS: APIXABAN 5 MG TABLET PO SCH (23:00)
[2017-12-10] MEDS: PANTOPRAZOLE 40 MG TABLET (FP) PO SCH (23:00)
[2017-12-10] MEDS: CARVEDILOL 6.25 MG TABLET (FP) PO SCH (23:00)
[2017-12-10] MEDS: traMADol HCL 50 MG TABLET PO PRN (23:00)
[2017-12-10] MEDS: MONTELUKAST NA 10 MG TABLET PO SCH (23:00)
[2017-12-10] MEDS ORDERED: INSULIN (NOVOLOG) ASPART 100 UNITS/ML 10ML VIAL ONE (23:42)
[2017-12-11] MEDS: traMADol HCL 50 MG TABLET PO PRN ×2 (05:38→14:01)
[2017-12-11] MEDS ORDERED: LEVOTHYROXINE NA 100 MCG TABLET (FP) ONE (06:03)
[2017-12-11] MEDS ORDERED: LEVOTHYROXINE NA 75 MCG TABLET (FP) ONE (06:03)
[2017-12-11] MEDS: LEVOTHYROXINE 100 MCG, LEVOTHYROXINE 75 MCG PO SCH (06:37)
[2017-12-11] MEDS: INSULIN DETEMIR 100 UNITS/ML MDV SQ SCH ×2 (06:38→21:35)
[2017-12-11] MEDS: INSULIN SLIDING SCALE (NOVOLOG) 1 VIAL SQ SCH ×4 (06:38→21:36)
[2017-12-11] MEDS ORDERED: LEVOTHYROXINE NA 175 MCG TABLET PO SCH (07:00)
[2017-12-11] MEDS ORDERED: morphine SULFATE 4 MG/ML VIAL IVPUSH ONE ×3 (08:00→20:00)
[2017-12-11 08:17] LABS: EOS % 4.1 % (0-4.5); HEMATOCRIT 32.7 % (35.4-49); HEMOGLOBIN 10.7 GM/dL (11.7-16.9); LYMPH % 14.6 % (8-40); MCH 27.8 pg (25.7-33.7); MCHC 32.7 g/dl (32.0-35.9); MEAN CELL VOLUME 85.1 fl (80-96); MEAN PLT VOLUME 10.3 fl (7.5-11.1); MONO % 11.6 % (3.8-10.2); NEUT % 68.7 % (42.8-82.8); PLATELET COUNT 213 K/MM3 (134-434); RBC 3.84 M/mm3 (4.00-5.60); RDW 16.7 % (11.9-15.9); WHITE BLOOD COUNT 7.1 K/mm3 (4.0-10.0)
[2017-12-11 08:27] LABS: ANION GAP 5 (8-16); BLOOD UREA NITROGEN 31 mg/dL (7-18); CALCIUM 8.5 mg/dL (8.5-10.1); CHLORIDE 97 mmol/L (98-107); CO2 28 mmol/L (21-32); GLUCOSE,RANDOM 230 mg/dL (74-106); SODIUM 130 mmol/L (136-145)
[2017-12-11 09:02] LABS: URINE APPEARANCE CLEAR; URINE BILIRUBIN NEGATIVE (NEGATIVE); URINE BLOOD NEGATIVE (NEGATIVE); URINE COLOR STRAW; URINE GLUCOSE (UA) 3+ (NEGATIVE); URINE KETONE NEGATIVE (NEGATIVE); URINE LEUK ESTERASE NEGATIVE (NEGATIVE); URINE NITRITE NEGATIVE (NEGATIVE); URINE PROTEIN NEGATIVE (NEGATIVE); URINE UROBILINOGEN NEGATIVE mg/dL (0.2-1.0)
--- NOTE | 2017-12-11 09:04 | PN ---
Progress Note, Physician History of Present Illness: PT C/O BACK PAIN C/O WEAKNESS C/O SOB ON EXERTION - Current Medication List Current Medications: Active Medications Apixaban (Eliquis -) 5 mg PO BID [facility] Last Admin: 12/10/17 23:00 Dose: 5 mg Atorvastatin Calcium (Lipitor -) 80 mg PO HS [facility] Last Admin: 12/10/17 23:00 Dose: 80 mg Carvedilol (Coreg -) 6.25 mg PO BID [facility] Last Admin: 12/10/17 23:00 Dose: 6.25 mg Furosemide (Lasix -) 60 mg PO DAILY [facility] Insulin Aspart (Novolog Vial Sliding Scale -) 0 vial SQ ACHS [facility] PRN Reason: Protocol Last Admin: 12/11/17 06:38 Dose: 6 units Insulin Detemir (Levemir Vial) 15 units SQ HS [facility] Last Admin: 12/10/17 23:00 Dose: 15 units Insulin Detemir (Levemir Vial) 20 units SQ AM [facility] Last Admin: 12/11/17 06:38 Dose: 20 units Levothyroxine Sodium 100 mcg/ (Levothyroxine Sodium 75 mcg) 175 mcg PO DAILY@ 0700 [facility] Last Admin: 12/11/17 06:37 Dose: 175 mcg Lisinopril (Prinivil) 5 mg PO DAILY [facility] Montelukast Sodium (Singulair -) 10 mg PO HS [facility] Last Admin: 12/10/17 23:00 Dose: 10 mg Pantoprazole Sodium (Protonix -) 40 mg PO BID [facility] Last Admin: 12/10/17 23:00 Dose: 40 mg Spironolactone (Aldactone -) 25 mg PO DAILY [facility] Tamsulosin HCl (Flomax -) 0.4 mg PO DAILY@0830 [facility] Tramadol HCl (Ultram -) 50 mg PO Q6H PRN PRN Reason: PAIN LEVEL 4 - 6 Last Admin: 12/11/17 05:38 Dose: 50 mg - Objective Vital Signs: Vital Signs Temperature 98.1 F 12/11/17 05:00 Pulse Rate 73 12/11/17 05:00 Respiratory Rate 18 12/11/17 05:24 Blood Pressure 115/69 12/11/17 05:00 O2 Sat by Pulse Oximetry (%) 95 12/11/17 05:24 Cardiovascular: Yes: S1, S2 Respiratory: Yes: Diminished, On Nasal O2, Rhonchi Gastrointestinal: Yes: Normal Bowel Sounds, Soft Edema: Yes Labs: CBC, BMP 12/11/17 07:10 12/11/17 07:10 Problem List - Problems (1) Compression fracture Assessment/Plan: PAIN CONTROL PT NS Code(s): [id number] - (2) Fall Assessment/Plan: PT EVAL Code(s): W19.XXXA - UNSPECIFIED FALL, INITIAL ENCOUNTER Qualifiers: Encounter type: initial encounter Qualified Code(s): W19.XXXA - Unspecified fall, initial encounter (3) Hyponatremia Assessment/Plan: MONITOR ON DIURETICS Code(s): E87.1 - HYPO-OSMOLALITY AND HYPONATREMIA (4) Anemia Assessment/Plan: MONITOR Code(s): D64.9 - ANEMIA, UNSPECIFIED (5) CHF (congestive heart failure) Assessment/Plan: CONTINUE WITH LASIX MONITOR LABS CARDIO FOLLOW UP CXR BNP TROP Code(s): I50.9 - HEART FAILURE, UNSPECIFIED Qualifiers: Heart failure type: systolic Heart failure chronicity: acute on chronic Qualified Code(s): I50.23 - Acute on chronic systolic (congestive) heart failure (6) COPD (chronic obstructive pulmonary disease) Assessment/Plan: ADD NEBS Code(s): J44.9 - CHRONIC OBSTRUCTIVE PULMONARY DISEASE, UNSPECIFIED (7) Diabetes mellitus, insulin dependent (IDDM), uncontrolled Assessment/Plan: INSULIN BGM ENDO Code(s): E10.65 - TYPE 1 DIABETES MELLITUS WITH HYPERGLYCEMIA Qualifiers:
[2017-12-11] MEDS ORDERED: PT OWN MED DRAWER 7, Y5N ONE ×2 (09:30→21:30)
[2017-12-11] MEDS: PANTOPRAZOLE 40 MG TABLET (FP) PO SCH ×2 (09:48→21:27)
[2017-12-11] MEDS: SPIRONOLACTONE 25 MG TABLET (FP) PO SCH (09:48)
[2017-12-11] MEDS: CARVEDILOL 6.25 MG TABLET (FP) PO SCH ×2 (09:48→23:14)
[2017-12-11] MEDS: TAMSULOSIN HCL 0.4 MG CAP.ER.24H (FP) PO SCH (09:48)
[2017-12-11] MEDS: FUROSEMIDE 40 MG TABLET (FP) PO SCH (09:48)
[2017-12-11] MEDS: LISINOPRIL 5 MG TABLET (FP) PO SCH (09:48)
[2017-12-11 10:52] LABS: N-TERMINAL BNP 11629.57 pg/ml (5-450)
[2017-12-11] MEDS: ALBUTEROL SO4 2.5/IPRATROPIUM 0.5 INH SOL 3 ML VIAL.NEB. NEB SCH ×2 (11:58→15:30)
[2017-12-11] MEDS: APIXABAN 5 MG TABLET PO SCH ×2 (13:01→21:32)
[2017-12-11] MEDS: ONDANSETRON 4 MG/2 ML VIAL IVPB PRN (14:19)
--- NOTE | 2017-12-11 14:21 | CONSULT ---
Consult - text type - Consultation Consultation Note: NEUROSURGERY CONSULTATION Deion Cook is a 82 year old male who suffered a fall on December 08. Although he was found not to have any intracranial pathology on Head CT (by report), he did have back pain. This pain has intensified and he was brought to the [facility] ER for further evaluation. He has difficulty withbearing weight and a CT Lumbar spine revealed a compression fracture of T12 with mild anterior loss of height, but no significant angulation or any retropulsion of bone. The patient is Neurologically nonfocal. I feel that immobilization in a brace will be the best initial course of treatment for this fracture. We will order a TLSO brace and get standing films with the brace on afterwards. If the patient can bear weight and does not angulate further, bracing for 3 months will be the appropriate treatment. If there is any angulation, inability to bear weight or interval development of a Neurological deficit, I will re-evaluate him for potential intervention. All questions were answered.
[2017-12-11] MEDS: LIDOCAINE 5% TOPICAL PATCH TP SCH (15:35)
--- NOTE | 2017-12-11 16:53 | CON.CARD ---
Consult Consult Specialty:: Cardiology - History of Present Illness Chief Complaint: CHF History of Present Illness: 82 year old male pmhx CAD s/p stents, CHF, sp AICD, Afib on Eliquis, dementia, DM II, diverticulitis (s/p partial colectomy), HTN, HLD, hypothyroidism, s/p mechanical fall 12/08 after tripping outside. Patient presents with increased pain in the last 2 days. Family has also noted pt to be increasing unsteady at home. He denies sob, chest pain, abd pain, n/v. T11 fracture noted, likely old. Pt with no midline T-spine tenderness. 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 No: Alzheimer's Cardio/Vascular: Yes: AFIB, Aneurysm (mild ascending aortic aneurysm (4.2 cm) per 01/[address]), CAD (stents x2 in 2010; thrombectomy & PCI of proximal and mid LAD with Promus Premier stents and PTCA of D1 on 12/18/15 at [facility] for acute/subacute anteroseptal [place]), CHF, HTN, Hyperlipdemia, Other (ischemic cardiomyopathy (LVEF 34% per 02/16/16 nuclear study)) Gastrointestinal: Yes: Constipation, Diverticulosis Musculoskeletal: Yes: Other (rib fx's right) Endocrine: Yes: Diabetes Mellitus, Hypothyroidism - Past Surgical History Past Surgical History: Yes: Arthrosocopy (Right knee arthroscopy w/ partial medial and lateral meniscectomy 09/01/15), Colectomy - Alcohol/Substance Use Hx Alcohol Use: No History of Substance Use: reports: None - Smoking History Smoking history: Former smoker Have you smoked in the past 12 months: No Aproximately how many cigarettes per day: 0 If you are a former smoker, when did you quit?: 40 years ago - Social History Usual Living Arrangement: Detention (since last d/c) 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 History of Recent Travel: No Home Medications - Allergies Allergies/Adverse Reactions: Allergies Allergy/AdvReac Type Severity Reaction Status Date / Time No Known Drug Allergies Allergy Verified 12/10/17 09:37 - Home Medications Home Medications: Ambulatory Orders Atorvastatin Ca [Lipitor] 80 mg PO HS 09/25/17 Docusate Sodium 300 mg PO DAILY 09/25/17 Duloxetine HCl [Cymbalta -] 60 mg PO DAILY 09/25/17 Folic Acid 1 mg PO DAILY 09/25/17 Levothyroxine [Synthroid -] 175 mcg PO DAILY 09/25/17 Montelukast Sodium [Singulair] 10 mg PO DAILY 09/25/17 Polyethylene Glycol 3350 [Miralax 119 gm Btl -] 17 gm PO DAILY 09/25/17 Potassium Chloride [K-Dur -] 20 meq PO DAILY 09/25/17 Spironolactone 25 mg PO DAILY 09/25/17 Tamsulosin HCl [Flomax -] 0.4 mg PO DAILY 09/25/17 Apixaban [Eliquis -] 5 mg PO BID #6 tablet 09/28/17 Clotrimazole/Betamet Diprop [Lotrisone -] 1 applic TP BID #60 grams 09/28/17 Carvedilol [Coreg -] 6.25 mg PO BID #60 tablet 11/15/17 Furosemide [Lasix -] 60 mg PO BID tablet 11/15/17 Lipase/Protease/Amylase [Surendra Hayes 36,000 Units Capsule] 1 cap PO TIDCM #90 capsule. 11/15/17 Lisinopril [Prinivil] 5 mg PO DAILY #30 tablet 11/15/17 Metoclopramide HCl [Reglan -] 5 mg PO TIDAC #90 tablet 11/15/17 Pantoprazole Sodium [Protonix -] 40 mg PO BID #60 tablet.ec 11/15/17 Acetaminophen [Tylenol .Regular Strength -] 650 mg PO Q6H PRN tablet 11/28/17 Insulin (Levemir) [Levemir Vial] 10 units SQ BID@0700,2200 ml 11/28/17 Insulin Sliding Scale [Novolog Vial Sliding Scale -] 1 vial SQ ACHS units 11/28 Review of Systems Unable to obtain ROS, reason: Dementia Vital Signs: Vital Signs Temperature 97.6 F 12/11/17 15:07 Pulse Rate 70 12/11/17 15:07 Respiratory Rate 16 12/11/17 15:07 Blood Pressure 99/57 12/11/17 15:07 O2 Sat by Pulse Oximetry (%) 95 12/11/17 05:24 Constitutional: Yes: Well Nourished, No Distress Eyes: Yes: Conjunctiva Clear, EOM Intact HENT: Yes: Atraumatic, Normocephalic Neck: Yes: Supple, Trachea Midline Respiratory: Yes: Regular, CTA Bilaterally Gastrointestinal: Yes: Normal Bowel Sounds Cardiovascular: Yes: Regular Rate and Rhythm JVD: No Carotid Bruit: No PMI: Non-Displaced Heart Sounds: Yes: S1, S2 Murmur: No: Systolic Murmur, Diastolic Murmur - Other Data Labs, Other Data: CBC, BMP 12/11/17 07:10 12/11/17 07:10 Troponin, BNP 12/11/17 12/11/17 07:10 07:10 Troponin I 0.04 D Cancelled B-Natriuretic Peptide 42237.57 H Cancelled Troponin, BNP 12/11/17 12/11/17 07:10 07:10 Troponin I 0.04 D Cancelled B-Natriuretic Peptide 91929.57 H Cancelled Imaging - Results Chest X-ray: Report Reviewed Problem List - Problems (1) ASHD (arteriosclerotic heart disease) Code(s): I25.10 - ATHSCL HEART DISEASE OF [place] CORONARY ARTERY W/O ANG PCTRS (2) Atrial fibrillation Code(s): I48.91 - UNSPECIFIED ATRIAL FIBRILLATION Qualifiers: Atrial fibrillation type: paroxysmal Qualified Code(s): I48.0 - Paroxysmal atrial fibrillation (3) CAD (coronary artery disease) Code(s): I25.10 - ATHSCL HEART DISEASE OF [place] CORONARY ARTERY W/O ANG PCTRS Qualifiers: Coronary Disease-Associated Artery/Lesion type: unspecified vessel or lesion type [place] vs. transplanted heart: [place] heart Associated angina: angina presence unspecified Qualified Code(s): I25.10 - Atherosclerotic heart disease of [place] coronary artery without angina pectoris (4) CHF (congestive heart failure) Code(s): I50.9 - HEART FAILURE, UNSPECIFIED Qualifiers: Heart failure type: systolic Heart failure chronicity: acute on chronic Qualified Code(s): I50.23 - Acute on chronic systolic (congestive) heart failure Assessment/Plan 82 M with Afib, Ischemic Cardiomyopathy with chronic systolic CHF. dementia sp falling. 1. Afib is rate controlled. * Continue with Eliquis and Coreg. * 2. Chronic Systolic heart failure. Compensated CHF with elevated BNP and clear lungs on exam and on medical therapy. Continue with lasix, ACEI and Aldactone Will see as needed.
--- NOTE | 2017-12-11 20:01 | CONS ---
DATE OF CONSULTATION: 12/11/2017 PHYSICAL MEDICINE REHABILITATION CONSULTATION REFERRING PHYSICIAN: Rodriguez Rowan M.D. HISTORY OF PRESENT ILLNESS: Patient is an 82-year-old man who is known from prior admission to [facility] with an extensive past medical history which includes the left lower extremity tibia-fibula fracture status post ORIF in 2015 with subsequent osteomyelitis in the spring as well as a history of diabetes who was admitted to [facility] with back pain and difficulty walking following a fall at home. Patient evidently had been hospitalized back in June, at which point he was seen. He went to a shelter facility for further rehabilitation and medical care. He subsequently was able to return home and ambulated with a straight cane or a walker depending on how he was doing. Patient notes that he did require some assistance for activities of daily living at times. Patient suffered a fall on December 08 and presented to the emergency room where he underwent a CT of the head which was negative. He developed increasing pain over the 2 days prior to admission and presented back to the emergency room on December [address] of the lumbar spine which showed mild compression deformity of T12, inferior end plate, L4-5 moderate facet hypertrophy, and some spondylosis was also identified at other levels. There was some dilatation involving some of his vessels including the bilateral common iliac. Patient continues to complain of some pain in his lower back. He is maintained on pain medication. Blood work on admission showed a low sodium of 127, normal potassium 5.1, chloride 95, CO2 of 24, elevated BUN of 38, creatinine 1.1. CBC was normal with WBC 8.4, hemoglobin 10.8, platelet count 193. His BNP however was extremely elevated over 11,000. Chest x-ray on admission showed less congestion when compared to November 22, 2017, with enlarged heart, permanent pacemaker noted. Patient is on Eliquis and again receives pain medication including Ultram. He states he has been able to get out of bed onto a bedside commode with assistance. Followup blood work done today showed WBC 7.1, stable hemoglobin 10.7, platelet count 213. Sodium slightly improved to 130, BUN also slightly improved to 31, creatinine 1.0, potassium normal 5.0. Patient has no radicular symptoms but pain across his lower back. PAST MEDICAL AND SURGICAL HISTORY: Atrial fibrillation, again on Eliquis. COPD. Atherosclerotic heart disease. Hypercholesterolemia. Diabetes. Possible diabetic peripheral neuropathy. Left tibia-fibula fracture status post ORIF with subsequent osteomyelitis, ischemic cardiomyopathy, ejection fraction 2 years ago was 34%. SOCIAL HISTORY: Lives with his in a private house. He states no stairs. He uses a cane or a walker and requires some assistance. Again, he has been getting out of bed onto a bedside commode with assistance. REVIEW OF SYSTEMS: He has no current headache, no lightheadedness, no dizziness. No blurry vision, double vision that is new. No change in vision. No nausea, vomiting, difficulty swallowing, difficulty chewing. No chest pain. He does get dyspneic with any exertion and short of breath at times. No night orthopnea. No abdominal discomfort. He states he is moving his bowels and urinating without difficulty. He has chronic problems including pain and swelling in the left lower extremity and pain across his back. No complaints of any numbness or tingling. No fever or chills. No skin rash or breakdown. No significant weight loss. He may have gained some weight. PHYSICAL EXAMINATION: General: Overweight elderly man seen lying in bed. He is awake, alert and cooperative with examination and seems oriented with good insight into his medical condition. HEENT: Normocephalic, atraumatic. Extraocular muscles appear intact. He has no obvious facial weakness. Neck: Supple. No palpable spasm. Thoracic spine without any palpable tenderness. His lumbar spine however he has tenderness and spasm in the lumbosacral paraspinal musculature bilaterally. Extremities: He has some edema left more than right lower limb but no isolated calf tenderness. Skin: Healed incisions in the left lower extremity from prior surgery but no rash, no heel breakdown. Neuromuscular: He is awake, alert, cooperative. Cranial nerves 2-12 appear grossly intact. He has fairly good strength and range in his upper extremities except for in the shoulder girdle where he may be slightly limited. It is difficult due to his gown, may be inhibiting his shoulder range, but has at least 110 to 120 degrees of forward flexion and perhaps more. He has 4+ out of 5 proximal and 5- out of 5 distal strength in the upper extremities with normal sensation to light touch. In the lower extremities, he has diminished sensation below the knees to light touch and pinprick with antigravity strength in both lower extremities, but the left is a little bit weaker, 3+ out of 5 compared to the right side which is 4 out of 5 proximally . He has better dorsiflexion, plantar flexion bilaterally. Unable to stand or ambulate him at this time, and he may have some arthritic changes in his knees, left more than right. OVERALL IMPRESSION: 1. Deficits to mobility and activities of daily living, multifactorial. 2. Low back pain with evidence of a T12 compression fracture, underlying facet arthropathy at L4-5 and spondylosis. 3. Status post fall. 4. Hyponatremia. 5. Prerenal azotemia. 6. Elevated BNP with congestion on chest x-ray consistent with his history of ischemic cardiomyopathy and possible congestive heart failure. 7. Atrial fibrillation on Eliquis. 8. Chronic obstructive pulmonary disease. 9. Diabetes with probable underlying diabetic peripheral neuropathy. 10. History of left tibia-fibula fracture status post open reduction internal fixation and osteomyelitis. 11. Probable underlying knee osteoarthritis. 12. Elevated risks for deep vein thrombosis due to immobility. PLANS/SUGGESTIONS: 1. Physical therapy for mobilization including bed mobility, transfers, gait training, strengthening, reconditioning of the lower extremities. 2. Out of bed to chair with assistance. 3. Pain medication. Consider adding Lidoderm patch. 4. Consider lumbosacral corset which could be obtained as an outpatient. 5. Ice or heat as needed. 6. Patient is on Eliquis, no further DVT prophylaxis is needed. 7. Skin precautions. Monitor heel and sacrum for erythema or breakdown. 8. Bowel regimen, monitor for constipation due to immobility and pain medication. 9. Patient may require short-term rehabilitation in shelter facility. He has been to [facility] previously, would have case management evaluate him. Thank you for this referral. ADRIEL LABOY M.D. MARY [id number]
[2017-12-11] MEDS: MONTELUKAST NA 10 MG TABLET PO SCH (21:27)
[2017-12-11] MEDS: LIDOCAINE PATCH REMOVAL MC SCH (21:27)
[2017-12-11] MEDS: ATORVASTATIN CA 80 MG TABLET (FP) PO SCH (21:27)
[2017-12-12] MEDS ORDERED: LEVOTHYROXINE NA 100 MCG TABLET (FP) ONE (05:57)
[2017-12-12] MEDS ORDERED: LEVOTHYROXINE NA 75 MCG TABLET (FP) ONE (05:57)
[2017-12-12] MEDS: LEVOTHYROXINE 100 MCG, LEVOTHYROXINE 75 MCG PO SCH (06:37)
[2017-12-12] MEDS: INSULIN DETEMIR 100 UNITS/ML MDV SQ SCH ×2 (06:38→23:29)
[2017-12-12] MEDS: INSULIN SLIDING SCALE (NOVOLOG) 1 VIAL SQ SCH ×4 (06:38→23:34)
[2017-12-12 08:06] LABS: BASO % 0.3 % (0-2.0); EOS % 1.6 % (0-4.5); HEMATOCRIT 29.2 % (35.4-49); HEMOGLOBIN 9.8 GM/dL (11.7-16.9); LYMPH % 8.8 % (8-40); MCH 28.2 pg (25.7-33.7); MCHC 33.5 g/dl (32.0-35.9); MEAN CELL VOLUME 84.2 fl (80-96); MONO % 8.7 % (3.8-10.2); NEUT % 80.6 % (42.8-82.8); PLATELET COUNT 179 K/MM3 (134-434); RBC 3.47 M/mm3 (4.00-5.60); WHITE BLOOD COUNT 11.3 K/mm3 (4.0-10.0)
[2017-12-12 08:19] LABS: CHLORIDE 99 mmol/L (98-107); SODIUM 135 mmol/L (136-145)
[2017-12-12] MEDS: ALBUTEROL SO4 2.5/IPRATROPIUM 0.5 INH SOL 3 ML VIAL.NEB. NEB SCH ×5 (08:20→20:04)
[2017-12-12 08:37] LABS: ALBUMIN 2.9 g/dl (3.4-5.0); ALK PHOS 100 U/L (45-117); ANION GAP 12 (8-16); BILIRUBIN,TOTAL 0.8 mg/dL (0.2-1.0); BLOOD UREA NITROGEN 36 mg/dL (7-18); CALCIUM 8.6 mg/dL (8.5-10.1); CO2 24 mmol/L (21-32); CREATININE 1.5 mg/dL (0.7-1.3); SGOT/AST 8 U/L (15-37); SGPT/ALT 15 U/L (12-78); TOT PROT 6.7 g/dl (6.4-8.2)
[2017-12-12 08:55] LABS: GLUCOSE,RANDOM 119 mg/dL (74-106)
[2017-12-12] MEDS ORDERED: ACETAMINOPHEN 325 MG TABLET (FP) PO PRN (09:09)
--- NOTE | 2017-12-12 09:11 | PN ---
Progress Note, Physician Chief Complaint: Hyponatremia Weakness History of Present Illness: NAD, in bed has back pain Tramadol not helping Seen by Neurosurgery, recommended conservative efforts first, trial of TLSO brace Had fever this AM, mild leukocytosis UC pending Was on Amoxicillin Chronically for chronic cellulitis-non healing - Current Medication List Current Medications: Active Medications Acetaminophen (Tylenol -) 650 mg PO Q6H PRN PRN Reason: FEVER Albuterol/Ipratropium (Duoneb -) 1 amp NEB RQID [facility] Last Admin: 12/11/17 15:30 Dose: 1 amp Apixaban (Eliquis -) 5 mg PO BID [facility] Last Admin: 12/11/17 21:32 Dose: 5 mg Atorvastatin Calcium (Lipitor -) 80 mg PO HS [facility] Last Admin: 12/11/17 21:27 Dose: 80 mg Carvedilol (Coreg -) 6.25 mg PO BID [facility] Last Admin: 12/11/17 23:14 Dose: Not Given Furosemide (Lasix -) 60 mg PO DAILY [facility] Last Admin: 12/11/17 09:48 Dose: 60 mg Insulin Aspart (Novolog Vial Sliding Scale -) 0 vial SQ [facility] PRN Reason: Protocol Last Admin: 12/12/17 06:38 Dose: 2 units Insulin Detemir (Levemir Vial) 15 units SQ HS [facility] Last Admin: 12/11/17 21:35 Dose: 15 units Insulin Detemir (Levemir Vial) 20 units SQ AM [facility] Last Admin: 12/12/17 06:38 Dose: 20 units Levothyroxine Sodium 100 mcg/ (Levothyroxine Sodium 75 mcg) 175 mcg PO DAILY@ 0700 [facility] Last Admin: 12/12/17 06:37 Dose: 175 mcg Lidocaine (Lidoderm Patch -) 1 patch TP DAILY [facility] Last Admin: 12/11/17 15:35 Dose: 1 patch Lisinopril (Prinivil) 5 mg PO DAILY [facility] Last Admin: 12/11/17 09:48 Dose: 5 mg Miscellaneous (Lidoderm Patch Removal) 1 each MC DAILY@2200 [facility] Last Admin: 12/11/17 21:27 Dose: 1 each Montelukast Sodium (Singulair -) 10 mg PO HS [facility] Last Admin: 12/11/17 21:27 Dose: 10 mg Ondansetron HCl (Zofran Injection) 4 mg IVPB Q6H PRN PRN Reason: NAUSEA Last Admin: 12/11/17 14:19 Dose: 4 mg Pantoprazole Sodium (Protonix -) 40 mg PO BID [facility] Last Admin: 12/11/17 21:27 Dose: 40 mg Spironolactone (Aldactone -) 25 mg PO DAILY [facility] Last Admin: 12/11/17 09:48 Dose: 25 mg Tamsulosin HCl (Flomax -) 0.4 mg PO DAILY@0830 [facility] Last Admin: 12/11/17 09:48 Dose: 0.4 mg Tramadol HCl (Ultram -) 50 mg PO Q6H PRN PRN Reason: PAIN LEVEL 4 - 6 Last Admin: 12/11/17 14:01 Dose: 50 mg - Objective Vital Signs: Vital Signs Temperature 100.5 F H 12/12/17 06:00 Pulse Rate 71 12/12/17 06:00 Respiratory Rate 18 12/12/17 06:00 Blood Pressure 95/50 12/12/17 06:00 O2 Sat by Pulse Oximetry (%) 96 12/11/17 21:00 Constitutional: Yes: Well Nourished, No Distress, Calm Cardiovascular: Yes: Regular Rate and Rhythm Respiratory: Yes: Regular Gastrointestinal: Yes: Normal Bowel Sounds, Soft, Abdomen, Obese Musculoskeletal: Yes: WNL Extremities: Yes: WNL Edema: No Peripheral Pulses WNL: Yes Wound/Incision: Yes: Clean/Dry, Other (Left atkinson chroic non healing wound, dry, not drainig, not warm to touch) Neurological: Yes: Alert, Pre-Existing Deficit Psychiatric: Yes: Alert Labs: CBC, BMP 12/12/17 07:20 12/12/17 07:20 Problem List - Problems (1) Chronic cellulitis Assessment/Plan: -Left atkinson, 2.2 to non healing fracture -Restart Amoxicillin -Seen by ID Code(s): L03.90 - CELLULITIS, UNSPECIFIED (2) Diabetes mellitus, insulin dependent (IDDM), uncontrolled Assessment/Plan: -diabetic diet -BGM -Endocrinology consult -Insulin Code(s): E10.65 - TYPE 1 DIABETES MELLITUS WITH HYPERGLYCEMIA Qualifiers: (3) Intractable low back pain Assessment/Plan: -mild compression fracture of T12 -Seen by Neurosurgery -TLSO brace -pain management Code(s): M54.5 - LOW BACK PAIN (4) Compression fracture Code(s): CPS6122 - (5) THERON (acute kidney injury) Assessment/Plan: -renal consult -cut back on furosemide? would leave it up to renal and cardiology Code(s): N17.9 - ACUTE KIDNEY FAILURE, UNSPECIFIED (6) Hyponatremia Assessment/Plan: -improved -renal consult Code(s): E87.1 - HYPO-OSMOLALITY AND HYPONATREMIA Assessment/Plan see problem list SNF upon discharge
--- NOTE | 2017-12-12 10:19 | PN ---
Progress Note, Physician Chief Complaint: ID Follow up examination for this 82 year old male well known to me for chronically infected left IM linda HIstory of Enterococcal bacteremia on chronic surpressive Amoxicillin Febrile 100.5 no localizing complaints - Current Medication List Current Medications: Active Medications Acetaminophen (Tylenol -) 650 mg PO Q6H PRN PRN Reason: FEVER Albuterol/Ipratropium (Duoneb -) 1 amp NEB RQID [facility] Last Admin: 12/12/17 08:22 Dose: 1 amp Apixaban (Eliquis -) 5 mg PO BID [facility] Last Admin: 12/11/17 21:32 Dose: 5 mg Atorvastatin Calcium (Lipitor -) 80 mg PO HS [facility] Last Admin: 12/11/17 21:27 Dose: 80 mg Carvedilol (Coreg -) 6.25 mg PO BID [facility] Last Admin: 12/11/17 23:14 Dose: Not Given Furosemide (Lasix -) 60 mg PO DAILY [facility] Last Admin: 12/11/17 09:48 Dose: 60 mg Insulin Aspart (Novolog Vial Sliding Scale -) 0 vial SQ [facility] PRN Reason: Protocol Last Admin: 12/12/17 06:38 Dose: 2 units Insulin Detemir (Levemir Vial) 15 units SQ HS [facility] Last Admin: 12/11/17 21:35 Dose: 15 units Insulin Detemir (Levemir Vial) 20 units SQ AM [facility] Last Admin: 12/12/17 06:38 Dose: 20 units Levothyroxine Sodium 100 mcg/ (Levothyroxine Sodium 75 mcg) 175 mcg PO DAILY@ 0700 [facility] Last Admin: 12/12/17 06:37 Dose: 175 mcg Lidocaine (Lidoderm Patch -) 1 patch TP DAILY [facility] Last Admin: 12/11/17 15:35 Dose: 1 patch Lisinopril (Prinivil) 5 mg PO DAILY [facility] Last Admin: 12/11/17 09:48 Dose: 5 mg Miscellaneous (Lidoderm Patch Removal) 1 each MC DAILY@2200 [facility] Last Admin: 12/11/17 21:27 Dose: 1 each Montelukast Sodium (Singulair -) 10 mg PO HS [facility] Last Admin: 12/11/17 21:27 Dose: 10 mg Ondansetron HCl (Zofran Injection) 4 mg IVPB Q6H PRN PRN Reason: NAUSEA Last Admin: 12/11/17 14:19 Dose: 4 mg Pantoprazole Sodium (Protonix -) 40 mg PO BID [facility] Last Admin: 12/11/17 21:27 Dose: 40 mg Spironolactone (Aldactone -) 25 mg PO DAILY [facility] Last Admin: 12/11/17 09:48 Dose: 25 mg Tamsulosin HCl (Flomax -) 0.4 mg PO DAILY@0830 [facility] Last Admin: 12/11/17 09:48 Dose: 0.4 mg Tramadol HCl (Ultram -) 50 mg PO Q6H PRN PRN Reason: PAIN LEVEL 4 - 6 Last Admin: 12/11/17 14:01 Dose: 50 mg - Objective Vital Signs: Vital Signs Temperature 100.5 F H 12/12/17 06:00 Pulse Rate 71 12/12/17 06:00 Respiratory Rate 18 12/12/17 06:00 Blood Pressure 95/50 12/12/17 06:00 O2 Sat by Pulse Oximetry (%) 96 12/11/17 21:00 Constitutional: Yes: Well Nourished, No Distress HENT: Yes: WNL, Atraumatic Cardiovascular: Yes: Regular Rate and Rhythm, S2. No: Murmur Respiratory: Yes: WNL, Regular, CTA Bilaterally Gastrointestinal: Yes: Soft. No: Tenderness, Tenderness, Epigastrium Extremities: Yes: Other (Mild induration ant mid shaft nontender no drainage No erythema NO sinus opening) Labs: CBC, BMP 12/12/17 07:20 12/12/17 07:20 Assessment/Plan Microbiology 12/11/17 04:15 Urine - Urine Clean Catch Urine Culture - Preliminary Non Lactose Fermenting Gnb Laboratory Tests 12/12/17 12/12/17 07:20 07:20 WBC 11.3 H D Hgb 9.8 L Hct 29.2 L Plt Count 179 BUN 36 H Creatinine 1.5 H D Assessment Low grade temp ? urinary source prostate in this elderly man Plan Blood cultures x 2 Treat with Zosyn pending final cultures for the NLF ? pseudo BLood cultures CRP ESR Resume oral surpressive Amox Hussein LEDESMA
[2017-12-12] MEDS: LIDOCAINE 5% TOPICAL PATCH TP SCH (11:24)
[2017-12-12] MEDS: TAMSULOSIN HCL 0.4 MG CAP.ER.24H (FP) PO SCH (11:25)
[2017-12-12] MEDS: APIXABAN 5 MG TABLET PO SCH ×2 (11:28→22:45)
[2017-12-12] MEDS: PANTOPRAZOLE 40 MG TABLET (FP) PO SCH ×2 (11:28→22:47)
[2017-12-12] MEDS: ONDANSETRON 4 MG/2 ML VIAL IVPB PRN (12:18)
[2017-12-12] MEDS ORDERED: PT OWN MED DRAWER 7, Y5N ONE ×4 (12:54→22:37)
[2017-12-12] MEDS: traMADol HCL 50 MG TABLET PO PRN ×2 (13:02→22:43)
[2017-12-12] MEDS: PIPERACILLIN/TAZOB 3.375 GM 3.375 GM in DEXTROSE 5%-WATER - 50 ML IVPB SCH ×2 (13:03→17:21)
[2017-12-12] MEDS: FUROSEMIDE 40 MG TABLET (FP) PO SCH (13:07)
[2017-12-12] MEDS: CARVEDILOL 6.25 MG TABLET (FP) PO SCH ×2 (13:07→22:46)
[2017-12-12] MEDS: LISINOPRIL 5 MG TABLET (FP) PO SCH (13:08)
[2017-12-12] MEDS: SPIRONOLACTONE 25 MG TABLET (FP) PO SCH (13:08)
--- NOTE | 2017-12-12 13:13 | CONSULT ---
Consult - text type - Consultation Consultation Note: Renal consult for THERON This is a 82 year old gentleman with PMhx of CAD, CHF, Afib, dementia, Hypthyrodism, Hypertension who presented with mechanical fall and developed THERON as inpatient. Pt reports b/l knee pain. Pt started on Abx for Pseudomonas in the urine. Denies any sob, chest pain, abd pain. No contrast exposure, flank pain, NSAID use. Pt is on ARB/Aldactone/Lasix. Pt noted to have a fever and normal to hypotensive BP's. Pt denies any obstructive symptoms. PMhx: as above Allergies: NKDA Family Hx: NC Social hx: No T/A/D ROS: as per HPI, all other pertinent ros negative Home Medications Medication Instructions Recorded Atorvastatin Ca [Lipitor] 80 mg PO HS 09/25/17 Docusate Sodium 300 mg PO DAILY 09/25/17 Duloxetine HCl [Cymbalta -] 60 mg PO DAILY 09/25/17 Folic Acid 1 mg PO DAILY 09/25/17 Levothyroxine [Synthroid -] 175 mcg PO DAILY 09/25/17 Montelukast Sodium [Singulair] 10 mg PO DAILY 09/25/17 Polyethylene Glycol 3350 [Miralax 17 gm PO DAILY 09/25/17 119 gm Btl -] Potassium Chloride [K-Dur -] 20 meq PO DAILY 09/25/17 Spironolactone 25 mg PO DAILY 09/25/17 Tamsulosin HCl [Flomax -] 0.4 mg PO DAILY 09/25/17 Apixaban [Eliquis -] 5 mg PO BID #6 tablet 09/28/17 Clotrimazole/Betamet Diprop 1 applic TP BID #60 grams 09/28/17 [Lotrisone -] Carvedilol [Coreg -] 6.25 mg PO BID #60 tablet 11/15/17 Furosemide [Lasix -] 60 mg PO BID tablet 11/15/17 Lipase/Protease/Amylase [Surendra Hayes 1 cap PO TIDCM #90 capsule. 11/15/17 36,000 Units Capsule] Lisinopril [Prinivil] 5 mg PO DAILY #30 tablet 11/15/17 Metoclopramide HCl [Reglan -] 5 mg PO TIDAC #90 tablet 11/15/17 Pantoprazole Sodium [Protonix -] 40 mg PO BID #60 tablet.ec 11/15/17 Acetaminophen [Tylenol .Regular 650 mg PO Q6H PRN tablet 11/28/17 Strength -] Insulin (Levemir) [Levemir Vial] 10 units SQ BID@0700,2200 ml 11/28/17 Insulin Sliding Scale [Novolog 1 vial SQ ACHS units 11/28/17 Vial Sliding Scale -] Vital Signs Temperature 100.5 F H 12/12/17 06:00 Pulse Rate 71 12/12/17 06:00 Respiratory Rate 18 12/12/17 06:00 Blood Pressure 95/50 12/12/17 06:00 O2 Sat by Pulse Oximetry (%) 96 12/11/17 21:00 Intake & Output 12/09/17 12/10/17 12/11/17 12/12/17 23:59 23:59 23:59 23:59 Intake Total 600 200 Balance 600 200 Weight 95.254 kg 95.254 kg NAD awake and alert irregular Dec BS, no rales Obese, NT/ND no bladder distensin No LE edema CBC, BMP 12/12/17 07:20 12/12/17 07:20 Current Medications Acetaminophen (Tylenol -) 650 mg PO Q6H PRN PRN Reason: FEVER Albuterol/Ipratropium (Duoneb -) 1 amp NEB RQID [facility] Last Admin: 12/12/17 11:10 Dose: 1 amp Amoxicillin (Amoxicillin -) 500 mg PO BID [facility] Apixaban (Eliquis -) 5 mg PO BID [facility] Last Admin: 12/12/17 11:28 Dose: 5 mg Atorvastatin Calcium (Lipitor -) 80 mg PO HS [facility] Last Admin: 12/11/17 21:27 Dose: 80 mg Carvedilol (Coreg -) 6.25 mg PO BID [facility] Last Admin: 12/12/17 13:07 Dose: Not Given Furosemide (Lasix -) 60 mg PO DAILY [facility] Last Admin: 12/12/17 13:07 Dose: Not Given Piperacillin Sod/Tazobactam (Sod 3.375 gm/ Dextrose) 50 mls @ 100 mls/hr IVPB Q8H-IV MANAN PRN Reason: Protocol Last Admin: 12/12/17 13:03 Dose: 100 mls/hr Insulin Aspart (Novolog Vial Sliding Scale -) 0 vial SQ ACHS [facility] PRN Reason: Protocol Last Admin: 12/12/17 12:17 Dose: 4 units Insulin Detemir (Levemir Vial) 15 units SQ HS [facility] Last Admin: 12/11/17 21:35 Dose: 15 units Insulin Detemir (Levemir Vial) 20 units SQ AM [facility] Last Admin: 12/12/17 06:38 Dose: 20 units Levothyroxine Sodium 100 mcg/ (Levothyroxine Sodium 75 mcg) 175 mcg PO DAILY@ 0700 [facility] Last Admin: 12/12/17 06:37 Dose: 175 mcg Lidocaine (Lidoderm Patch -) 1 patch TP DAILY [facility] Last Admin: 12/12/17 11:24 Dose: 1 patch Miscellaneous (Lidoderm Patch Removal) 1 each MC DAILY@2200 [facility] Last Admin: 12/11/17 21:27 Dose: 1 each Montelukast Sodium (Singulair -) 10 mg PO [facility] Last Admin: 12/11/17 21:27 Dose: 10 mg Ondansetron HCl (Zofran Injection) 4 mg IVPB Q6H PRN PRN Reason: NAUSEA Last Admin: 12/12/17 12:18 Dose: 4 mg Oxycodone HCl (Roxicodone -) 5 mg PO Q6H PRN PRN Reason: PAIN LEVEL 7 - 10 Pantoprazole Sodium (Protonix -) 40 mg PO BID [facility] Last Admin: 12/12/17 11:28 Dose: 40 mg Tamsulosin HCl (Flomax -) 0.4 mg PO DAILY@0830 [facility] Last Admin: 12/12/17 11:25 Dose: 0.4 mg Tramadol HCl (Ultram -) 100 mg PO TID PRN PRN Reason: PAIN LEVEL 4 - 6 Last Admin: 12/12/17 13:02 Dose: 100 mg 82 year old gentleman with PMhx of CAD, CHF, Afib, dementia, Hypthyrodism, Hypertension who presented with mechanical fall and developed THERON as inpatient. 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
--- NOTE | 2017-12-12 14:32 | EKG ---
Test Reason : Blood Pressure : / mmHG Vent. Rate : 060 BPM Atrial Rate : 060 BPM P-R Int : 186 ms QRS Dur : 182 ms QT Int : 548 ms P-R-T Axes : 000 -79 138 degrees QTc Int : 548 ms AV dual-paced rhythm ABNORMAL ECG WHEN COMPARED WITH ECG OF 11-DEC-2017 03:22, VENT. RATE HAS DECREASED BY 12 BPM Confirmed by MADELINE LEDESMA, PANCHO ([id number]) on 12/12/2017 2:31:51 PM Referred By: Pasquale VZÁQUEZ Confirmed By:PANCHO CORREA MD
--- NOTE | 2017-12-12 15:52 | RAPID ---
Physical Examination Vital Signs: Vital Signs Temperature 98.6 F 12/12/17 10:00 Pulse Rate 60 12/12/17 10:00 Respiratory Rate 18 12/12/17 10:00 Blood Pressure 95/52 12/12/17 10:00 O2 Sat by Pulse Oximetry (%) 96 12/11/17 21:00 Constitutional: Yes: No Distress Cardiovascular: Yes: Regular Rate and Rhythm Respiratory: Yes: CTA Bilaterally Gastrointestinal: Yes: Soft, Abdomen, Obese Extremities: Yes: WNL Labs: CBC, BMP 12/12/17 07:20 12/12/17 07:20 Rapid Response - Rapid Response Assessment: Rapid response was called when patient was complaining of L sided chest pain. Patient was having left sided chest pain for ~15minutes. Patient has recently identified T12 compression fracture. Vital signs on arrival were: L arm BP 120/ 89 and R arm 109/50, SpO2 98% on 2L NC. Patient speaking in full sentence with no acute distress. Physical exam was notable for chest pain reproducible with palpation. #chest pain, r/o ACS -Stat EKG and Troponin PCP Dr. Rowan was notified.
[2017-12-12] MEDS: oxyCODONE HCL 5 MG TABLET PO PRN (19:09)
[2017-12-12] MEDS: AMOXICILLIN 500 MG CAPSULE (FP) PO SCH ×2 (19:10→22:44)
[2017-12-12] MEDS: ATORVASTATIN CA 80 MG TABLET (FP) PO SCH (22:00)
[2017-12-12] MEDS: LIDOCAINE PATCH REMOVAL MC SCH (22:47)
[2017-12-12] MEDS: MONTELUKAST NA 10 MG TABLET PO SCH (22:48)
[2017-12-13] MEDS: PIPERACILLIN/TAZOB 3.375 GM 3.375 GM in DEXTROSE 5%-WATER - 50 ML IVPB SCH ×2 (02:40→08:59)
[2017-12-13] MEDS ORDERED: PT OWN MED DRAWER 7, Y5N ONE ×4 (03:09→15:08)
[2017-12-13] MEDS ORDERED: LEVOTHYROXINE NA 100 MCG TABLET (FP) ONE (05:29)
[2017-12-13] MEDS ORDERED: LEVOTHYROXINE NA 75 MCG TABLET (FP) ONE (05:30)
[2017-12-13] MEDS: INSULIN SLIDING SCALE (NOVOLOG) 1 VIAL SQ SCH ×4 (06:34→21:39)
[2017-12-13] MEDS: INSULIN DETEMIR 100 UNITS/ML MDV SQ SCH ×2 (06:36→21:43)
[2017-12-13] MEDS: LEVOTHYROXINE 100 MCG, LEVOTHYROXINE 75 MCG PO SCH (06:40)
[2017-12-13] MEDS: ALBUTEROL SO4 2.5/IPRATROPIUM 0.5 INH SOL 3 ML VIAL.NEB. NEB SCH ×4 (08:10→20:36)
[2017-12-13 08:20] LABS: BASO % 0.8 % (0-2.0); EOS % 6.9 % (0-4.5); HEMATOCRIT 30.7 % (35.4-49); HEMOGLOBIN 10.2 GM/dL (11.7-16.9); LYMPH % 14.2 % (8-40); MCH 28.4 pg (25.7-33.7); MCHC 33.1 g/dl (32.0-35.9); MEAN CELL VOLUME 85.6 fl (80-96); MEAN PLT VOLUME 9.6 fl (7.5-11.1); MONO % 11.1 % (3.8-10.2); PLATELET COUNT 177 K/MM3 (134-434); RBC 3.59 M/mm3 (4.00-5.60); RDW 16.7 % (11.9-15.9); WHITE BLOOD COUNT 7.3 K/mm3 (4.0-10.0)
[2017-12-13 08:45] LABS: CHLORIDE 95 mmol/L (98-107); POTASSIUM 4.7 mmol/L (3.5-5.1); SODIUM 132 mmol/L (136-145)
[2017-12-13] MEDS: oxyCODONE HCL 5 MG TABLET PO PRN ×2 (08:53→21:40)
[2017-12-13] MEDS: TAMSULOSIN HCL 0.4 MG CAP.ER.24H (FP) PO SCH (08:54)
[2017-12-13] MEDS: ONDANSETRON 4 MG/2 ML VIAL IVPB PRN (08:54)
[2017-12-13 08:57] LABS: ALBUMIN 3.1 g/dl (3.4-5.0); ALK PHOS 107 U/L (45-117); ANION GAP 12 (8-16); BLOOD UREA NITROGEN 38 mg/dL (7-18); CALCIUM 8.4 mg/dL (8.5-10.1); CO2 25 mmol/L (21-32); CREATININE 1.6 mg/dL (0.7-1.3); MAGNESIUM 2.3 mg/dL (1.8-2.4); PHOSPHOROUS 3.8 mg/dL (2.5-4.9); SGOT/AST 10 U/L (15-37); SGPT/ALT 20 U/L (12-78); TOT PROT 7.4 g/dl (6.4-8.2)
[2017-12-13] MEDS: LIDOCAINE 5% TOPICAL PATCH TP SCH (08:59)
[2017-12-13] MEDS: PANTOPRAZOLE 40 MG TABLET (FP) PO SCH ×2 (08:59→21:38)
[2017-12-13] MEDS: AMOXICILLIN 500 MG CAPSULE (FP) PO SCH ×2 (08:59→21:37)
[2017-12-13 09:07] LABS: GLUCOSE,RANDOM 150 mg/dL (74-106)
--- NOTE | 2017-12-13 09:24 | PN ---
Progress Note, Physician History of Present Illness: PT C/O BACK PAIN C/O CHEST PAIN--RIGHT SIDE C/O WEAKNESS C/O SOB ON EXERTION - Current Medication List Current Medications: Active Medications Acetaminophen (Tylenol -) 650 mg PO Q6H PRN PRN Reason: FEVER Last Admin: 12/12/17 18:25 Dose: 650 mg Albuterol/Ipratropium (Duoneb -) 1 amp NEB RQID [facility] Last Admin: 12/12/17 20:04 Dose: 1 amp Amoxicillin (Amoxicillin -) 500 mg PO BID [facility] Last Admin: 12/13/17 08:59 Dose: 500 mg Apixaban (Eliquis -) 5 mg PO BID [facility] Last Admin: 12/12/17 22:45 Dose: 5 mg Atorvastatin Calcium (Lipitor -) 80 mg PO [facility] Last Admin: 12/12/17 22:00 Dose: 80 mg Carvedilol (Coreg -) 6.25 mg PO BID [facility] Last Admin: 12/12/17 22:46 Dose: 6.25 mg Piperacillin Sod/Tazobactam (Sod 3.375 gm/ Dextrose) 50 mls @ 100 mls/hr IVPB Q8H-IV [facility] PRN Reason: Protocol Last Admin: 12/13/17 08:59 Dose: 100 mls/hr Insulin Aspart (Novolog Vial Sliding Scale -) 0 vial SQ ACHS [facility] PRN Reason: Protocol Last Admin: 12/13/17 06:34 Dose: Not Given Insulin Detemir (Levemir Vial) 15 units SQ [facility] Last Admin: 12/12/17 23:29 Dose: 15 units Insulin Detemir (Levemir Vial) 20 units SQ AM [facility] Last Admin: 12/13/17 06:36 Dose: 20 units Levothyroxine Sodium 100 mcg/ (Levothyroxine Sodium 75 mcg) 175 mcg PO DAILY@ 0700 [facility] Last Admin: 12/13/17 06:40 Dose: 175 mcg Lidocaine (Lidoderm Patch -) 1 patch TP DAILY [facility] Last Admin: 12/13/17 08:59 Dose: 1 patch Miscellaneous (Lidoderm Patch Removal) 1 each MC DAILY@2200 [facility] Last Admin: 12/12/17 22:47 Dose: 1 each Montelukast Sodium (Singulair -) 10 mg PO [facility] Last Admin: 12/12/17 22:48 Dose: 10 mg Ondansetron HCl (Zofran Injection) 4 mg IVPB Q6H PRN PRN Reason: NAUSEA Last Admin: 12/13/17 08:54 Dose: 4 mg Oxycodone HCl (Roxicodone -) 5 mg PO Q6H PRN PRN Reason: PAIN LEVEL 7 - 10 Last Admin: 12/13/17 08:53 Dose: 5 mg Pantoprazole Sodium (Protonix -) 40 mg PO BID [facility] Last Admin: 12/13/17 08:59 Dose: 40 mg Tamsulosin HCl (Flomax -) 0.4 mg PO DAILY@0830 [facility] Last Admin: 12/13/17 08:54 Dose: 0.4 mg Tramadol HCl (Ultram -) 100 mg PO TID PRN PRN Reason: PAIN LEVEL 4 - 6 Last Admin: 12/12/17 22:43 Dose: 100 mg - Objective Vital Signs: Vital Signs Temperature 98.2 F 12/13/17 06:00 Pulse Rate 66 12/13/17 06:00 Respiratory Rate 18 12/13/17 06:00 Blood Pressure 94/51 12/13/17 06:00 O2 Sat by Pulse Oximetry (%) 99 12/13/17 01:20 Cardiovascular: Yes: S1, S2 Respiratory: Yes: Regular, CTA Bilaterally Gastrointestinal: Yes: Normal Bowel Sounds, Soft Labs: CBC, BMP 12/13/17 06:20 12/13/17 06:20 Problem List - Problems (1) Compression fracture Assessment/Plan: PAIN CONTROL PT NS Code(s): AAT1472 - (2) Fall Assessment/Plan: PT EVAL Code(s): W19.XXXA - UNSPECIFIED FALL, INITIAL ENCOUNTER Qualifiers: Encounter type: initial encounter Qualified Code(s): W19.XXXA - Unspecified fall, initial encounter (3) Hyponatremia Assessment/Plan: MONITOR ON DIURETICS Code(s): E87.1 - HYPO-OSMOLALITY AND HYPONATREMIA (4) Anemia Assessment/Plan: MONITOR Code(s): D64.9 - ANEMIA, UNSPECIFIED (5) CHF (congestive heart failure) Assessment/Plan: CONTINUE WITH LASIX MONITOR LABS CARDIO FOLLOW UP CXR BNP TROP Code(s): I50.9 - HEART FAILURE, UNSPECIFIED Qualifiers: Heart failure type: systolic Heart failure chronicity: acute on chronic Qualified Code(s): I50.23 - Acute on chronic systolic (congestive) heart failure (6) COPD (chronic obstructive pulmonary disease) Assessment/Plan: ADD NEBS Code(s): J44.9 - CHRONIC OBSTRUCTIVE PULMONARY DISEASE, UNSPECIFIED (7) Diabetes mellitus, insulin dependent (IDDM), uncontrolled Assessment/Plan: INSULIN BGM ENDO Code(s): E10.65 - TYPE 1 DIABETES MELLITUS WITH HYPERGLYCEMIA Qualifiers: (8) Chest pain Assessment/Plan: MAYBE MUSCULAR MAYBE RADICULOPATHY PAIN CONTROL CXR--CE Code(s): R07.9 - CHEST PAIN, UNSPECIFIED Qualifiers: Chest pain type: unspecified Qualified Code(s): R07.9 - Chest pain, unspecified
--- NOTE | 2017-12-13 11:10 | EKG ---
Test Reason : Blood Pressure : / mmHG Vent. Rate : 068 BPM Atrial Rate : 068 BPM P-R Int : 000 ms QRS Dur : 186 ms QT Int : 510 ms P-R-T Axes : 000 -77 095 degrees QTc Int : 542 ms AV dual-paced rhythm ABNORMAL ECG WHEN COMPARED WITH ECG OF 12-DEC-2017 21:04, VENT. RATE HAS INCREASED BY 8 BPM Confirmed by SHAHZAD VALLES MD ([id number]) on 12/13/2017 11:10:42 AM Referred By: JOSH LOVE Confirmed By:SHAHZAD VALLES MD
[2017-12-13] MEDS ORDERED: INSULIN (NOVOLOG) ASPART 100 UNITS/ML 10ML VIAL ONE ×3 (12:10→20:55)
[2017-12-13] MEDS: traMADol HCL 50 MG TABLET PO SCH ×4 (12:15→23:33)
[2017-12-13] MEDS: APIXABAN 5 MG TABLET PO SCH ×2 (12:15→21:38)
[2017-12-13] MEDS: CARVEDILOL 6.25 MG TABLET (FP) PO SCH ×2 (12:17→21:38)
[2017-12-13] MEDS: POLYETHYLENE GLYCOL 3350 119 GM BTL PO SCH ×2 (12:17→21:39)
--- NOTE | 2017-12-13 13:50 | HOSP ---
Subjective - Review of Symptoms Subjective: called by RN as pt was having CP. pt assessed bedside. resting comfortable states he woke up with back pain which was relieved with pain medication but then developed CP not radiating. states pain is 8/10 exam S1 S2 RRR no murmur +chest wall tenderness A&P 1. 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 check troponins and EKG. would recommend better control of back pain Physical Examination Vital Signs: Vital Signs Temperature 98.6 F 12/13/17 10:00 Pulse Rate 62 12/13/17 10:00 Respiratory Rate 20 12/13/17 10:00 Blood Pressure 99/52 12/13/17 10:00 O2 Sat by Pulse Oximetry (%) 99 12/13/17 01:20 Labs: CBC, BMP 12/13/17 06:20 12/13/17 06:20
--- NOTE | 2017-12-13 14:14 | PN ---
Progress Note, Physician Chief Complaint: Asked to reevaluate Pt with chest pain. He has generalized body aches including left sided pain around the nipple which is ongoing overnight and imprvoed after analgesics. No provoking factors. ECG showed a ventricular paced rhythm and TP are negative. History of Present Illness: 82 year old male pmhx CAD s/p stents, CHF, sp AICD, Afib on Eliquis, dementia, DM II, diverticulitis (s/p partial colectomy), HTN, HLD, hypothyroidism, s/p mechanical fall 12/08 after tripping outside. Patient presents with increased pain in the last 2 days. Family has also noted pt to be increasing unsteady at home. T11 fracture noted, likely old. Pt with no midline T-spine tenderness. - Current Medication List Current Medications: Active Medications Acetaminophen (Tylenol -) 650 mg PO Q6H PRN PRN Reason: FEVER Last Admin: 12/12/17 18:25 Dose: 650 mg Albuterol/Ipratropium (Duoneb -) 1 amp NEB RQID [facility] Last Admin: 12/12/17 20:04 Dose: 1 amp Amoxicillin (Amoxicillin -) 500 mg PO BID [facility] Last Admin: 12/13/17 08:59 Dose: 500 mg Apixaban (Eliquis -) 5 mg PO BID [facility] Last Admin: 12/13/17 12:15 Dose: 5 mg Atorvastatin Calcium (Lipitor -) 80 mg PO HS [facility] Last Admin: 12/12/17 22:00 Dose: 80 mg Carvedilol (Coreg -) 6.25 mg PO BID [facility] Last Admin: 12/13/17 12:17 Dose: Not Given Piperacillin Sod/Tazobactam (Sod 3.375 gm/ Dextrose) 50 mls @ 100 mls/hr IVPB Q8H-IV [facility]NA[facility] PRN Reason: Protocol Last Admin: 12/13/17 08:59 Dose: 100 mls/hr Insulin Aspart (Novolog Vial Sliding Scale -) 0 vial SQ ACHS [facility] PRN Reason: Protocol Last Admin: 12/13/17 12:14 Dose: 4 units Insulin Detemir (Levemir Vial) 15 units SQ HS [facility] Last Admin: 12/12/17 23:29 Dose: 15 units Insulin Detemir (Levemir Vial) 20 units SQ AM [facility] Last Admin: 12/13/17 06:36 Dose: 20 units Levothyroxine Sodium 100 mcg/ (Levothyroxine Sodium 75 mcg) 175 mcg PO DAILY@ 0700 [facility] Last Admin: 12/13/17 06:40 Dose: 175 mcg Lidocaine (Lidoderm Patch -) 1 patch TP DAILY [facility] Last Admin: 12/13/17 08:59 Dose: 1 patch Miscellaneous (Lidoderm Patch Removal) 1 each MC DAILY@2200 [facility] Last Admin: 12/12/17 22:47 Dose: 1 each Montelukast Sodium (Singulair -) 10 mg PO [facility] Last Admin: 12/12/17 22:48 Dose: 10 mg Ondansetron HCl (Zofran Injection) 4 mg IVPB Q6H PRN PRN Reason: NAUSEA Last Admin: 12/13/17 08:54 Dose: 4 mg Oxycodone HCl (Roxicodone -) 5 mg PO Q6H PRN PRN Reason: PAIN LEVEL 7 - 10 Last Admin: 12/13/17 08:53 Dose: 5 mg Pantoprazole Sodium (Protonix -) 40 mg PO BID [facility] Last Admin: 12/13/17 08:59 Dose: 40 mg Polyethylene Glycol (Miralax (For Daily Use) -) 17 gm PO BID [facility] Last Admin: 12/13/17 12:17 Dose: 17 gm Senna (Senna -) 2 tab PO [facility] Tamsulosin HCl (Flomax -) 0.4 mg PO DAILY@0830 [facility] Last Admin: 12/13/17 08:54 Dose: 0.4 mg Tramadol HCl (Ultram -) 50 mg PO TID [facility] Last Admin: 12/13/17 12:15 Dose: 50 mg - Objective Vital Signs: Vital Signs Temperature 98.6 F 12/13/17 10:00 Pulse Rate 62 12/13/17 10:00 Respiratory Rate 20 12/13/17 10:00 Blood Pressure 99/52 12/13/17 10:00 O2 Sat by Pulse Oximetry (%) 99 12/13/17 01:20 Constitutional: Yes: No Distress, Calm Eyes: Yes: Conjunctiva Clear HENT: Yes: Atraumatic, Normocephalic Neck: Yes: Supple, Trachea Midline Cardiovascular: Yes: Regular Rate and Rhythm, S1, S2. No: JVD Respiratory: Yes: Regular, CTA Bilaterally Gastrointestinal: Yes: Normal Bowel Sounds Edema: No Labs: CBC, BMP 12/13/17 06:20 12/13/17 06:20 Problem List - Problems (1) ASHD (arteriosclerotic heart disease) Code(s): I25.10 - ATHSCL HEART DISEASE OF [place] CORONARY ARTERY W/O ANG PCTRS (2) Atrial fibrillation Code(s): I48.91 - UNSPECIFIED ATRIAL FIBRILLATION Qualifiers: Atrial fibrillation type: paroxysmal Qualified Code(s): I48.0 - Paroxysmal atrial fibrillation (3) CAD (coronary artery disease) Code(s): I25.10 - ATHSCL HEART DISEASE OF [place] CORONARY ARTERY W/O ANG PCTRS Qualifiers: Coronary Disease-Associated Artery/Lesion type: unspecified vessel or lesion type [place] vs. transplanted heart: [place] heart Associated angina: angina presence unspecified Qualified Code(s): I25.10 - Atherosclerotic heart disease of [place] coronary artery without angina pectoris (4) CHF (congestive heart failure) Code(s): I50.9 - HEART FAILURE, UNSPECIFIED Qualifiers: Heart failure type: systolic Heart failure chronicity: acute on chronic Qualified Code(s): I50.23 - Acute on chronic systolic (congestive) heart failure Assessment/Plan 82 M with Afib, Ischemic Cardiomyopathy with chronic systolic CHF [place] and chest pain. A previous stress test showed severe fixed anterior and apical defects without ischemia. His CP has been ongoing without dynamic ECG changes although less sensitive due to chronic pacing. TP have been repeatedly normal. I do not believe that his pain is cardiac in origin. Given [place] suggest lowering Eliquis 2.5mg bid. Resume heart failure therapies after [place] improves.
--- NOTE | 2017-12-13 14:22 | PN ---
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 12/12/17 10:25 Blood - Peripheral Venous Blood Culture - Preliminary NO GROWTH OBTAINED AFTER 24 HOURS, INCUBATION TO CONTINUE FOR 4 DAYS. 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
--- NOTE | 2017-12-13 14:34 | EKG ---
Test Reason : Blood Pressure : / mmHG Vent. Rate : 072 BPM Atrial Rate : 072 BPM P-R Int : 156 ms QRS Dur : 184 ms QT Int : 506 ms P-R-T Axes : 105 -68 096 degrees QTc Int : 554 ms Atrial-sensed ventricular-paced rhythm ABNORMAL ECG WHEN COMPARED WITH ECG OF 08-DEC-2017 13:06, VENT. RATE HAS INCREASED BY 8 BPM Confirmed by SHAHZAD VALLES MD ([id number]) on 12/13/2017 2:34:00 PM Referred By: Confirmed By:SHAHZAD VALLES MD
[2017-12-13] MEDS ORDERED: traMADol HCL 50 MG TABLET PO SCH (15:30)
--- NOTE | 2017-12-13 16:03 | PN ---
Progress Note (short form) - Note Progress Note: Patient resting in bed. TLSO brace received and applied to patient. Will follow progress. Rapid response events and aftermath notes reviewed. PLAN -TLSO brace for 3 months -Standing films in brace (AP & Lateral plain Lumbar films to include T12) If patient angulates or cannot tolerate weight bearing, we will reassess.
--- NOTE | 2017-12-13 17:19 | PN ---
Progress Note (short form) - Note Progress Note: Renal follow up for THERON pt seen and examined at the bedside no acute complaints no sob, chest pain, abd pain making urine Vital Signs Temperature 97.9 F 12/13/17 14:19 Pulse Rate 63 12/13/17 14:19 Respiratory Rate 16 12/13/17 14:19 Blood Pressure 117/65 12/13/17 14:19 O2 Sat by Pulse Oximetry (%) 94 L 12/13/17 09:00 Intake & Output 12/10/17 12/11/17 12/12/17 12/13/17 23:59 23:59 23:59 23:59 Intake Total 600 440 830 Output Total 250 700 Balance 600 190 130 Weight 95.254 kg 95.254 kg NAD awake and alert irregular Dec BS, no rales Obese, NT/ND no bladder distensin No LE edema CBC, BMP 12/13/17 06:20 12/13/17 06:20 Current Medications Acetaminophen (Tylenol -) 650 mg PO Q6H PRN PRN Reason: FEVER Last Admin: 12/12/17 18:25 Dose: 650 mg Albuterol/Ipratropium (Duoneb -) 1 amp NEB RQID [facility] Last Admin: 12/13/17 12:10 Dose: 1 amp Amoxicillin (Amoxicillin -) 500 mg PO BID [facility] Last Admin: 12/13/17 08:59 Dose: 500 mg Apixaban (Eliquis -) 2.5 mg PO BID [facility] Atorvastatin Calcium (Lipitor -) 80 mg PO HS [facility] Last Admin: 12/12/17 22:00 Dose: 80 mg Carvedilol (Coreg -) 6.25 mg PO BID [facility] Last Admin: 12/13/17 12:17 Dose: Not Given Insulin Aspart (Novolog Vial Sliding Scale -) 0 vial SQ ACHS [facility] PRN Reason: Protocol Last Admin: 12/13/17 17:04 Dose: 2 units Insulin Detemir (Levemir Vial) 15 units SQ HS [facility] Last Admin: 12/12/17 23:29 Dose: 15 units Insulin Detemir (Levemir Vial) 20 units SQ AM [facility] Last Admin: 12/13/17 06:36 Dose: 20 units Levothyroxine Sodium 100 mcg/ (Levothyroxine Sodium 75 mcg) 175 mcg PO DAILY@ 0700 [facility] Last Admin: 12/13/17 06:40 Dose: 175 mcg Lidocaine (Lidoderm Patch -) 1 patch TP DAILY [facility] Last Admin: 12/13/17 08:59 Dose: 1 patch Miscellaneous (Lidoderm Patch Removal) 1 each MC DAILY@2200 [facility] Last Admin: 12/12/17 22:47 Dose: 1 each Montelukast Sodium (Singulair -) 10 mg PO [facility] Last Admin: 12/12/17 22:48 Dose: 10 mg Ondansetron HCl (Zofran Injection) 4 mg IVPB Q6H PRN PRN Reason: NAUSEA Last Admin: 12/13/17 08:54 Dose: 4 mg Oxycodone HCl (Roxicodone -) 5 mg PO Q6H PRN PRN Reason: PAIN LEVEL 7 - 10 Last Admin: 12/13/17 08:53 Dose: 5 mg Pantoprazole Sodium (Protonix -) 40 mg PO BID [facility] Last Admin: 12/13/17 08:59 Dose: 40 mg Polyethylene Glycol (Miralax (For Daily Use) -) 17 gm PO BID [facility] Last Admin: 12/13/17 12:17 Dose: 17 gm Senna (Senna -) 2 tab PO [facility] Tamsulosin HCl (Flomax -) 0.4 mg PO DAILY@0830 [facility] Last Admin: 12/13/17 08:54 Dose: 0.4 mg Tramadol HCl (Ultram -) 50 mg PO Q8H [facility] Last Admin: 12/13/17 16:59 Dose: 50 mg 82 year old gentleman with PMhx of CAD, CHF, Afib, dementia, Hypthyrodism, Hypertension who presented with mechanical fall and developed THERON as inpatient. #THERON likely due to renal hypoprofusion +/- ATN in setting of hypotension/ infection +SARAH/diuretics renal function unchanged at this time clinically stable BP slightly improved continue to trend BUN/Cr off SARAH/Adlactone/lasix Thank you Keshav Werner DO
--- NOTE | 2017-12-13 18:33 | CONSULT ---
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 No: Alzheimer's Cardio/Vascular: Yes: AFIB, Aneurysm (mild ascending aortic aneurysm (4.2 cm) per 01/[address]), CAD (stents x2 in 2010; thrombectomy & PCI of proximal and mid LAD with Promus Premier stents and PTCA of D1 on 12/18/15 at [facility] for acute/subacute anteroseptal [place]), CHF, HTN, Hyperlipdemia, Other (ischemic cardiomyopathy (LVEF 34% per 02/16/16 nuclear study)) Gastrointestinal: Yes: Constipation, Diverticulosis Musculoskeletal: Yes: Other (rib fx's right) Endocrine: Yes: Diabetes Mellitus, Hypothyroidism - Past Surgical History Past Surgical History: Yes: Arthrosocopy (Right knee arthroscopy w/ partial medial and lateral meniscectomy 09/01/15), Colectomy - Alcohol/Substance Use Hx Alcohol Use: No History of Substance Use: reports: None - Smoking History Smoking history: Former smoker Have you smoked in the past 12 months: No Aproximately how many cigarettes per day: 0 If you are a former smoker, when did you quit?: 40 years ago - Social History Usual Living Arrangement: Longterm (since last d/c) 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 History of Recent Travel: No Home Medications - Allergies Allergies/Adverse Reactions: Allergies Allergy/AdvReac Type Severity Reaction Status Date / Time No Known Drug Allergies Allergy Verified 12/10/17 09:37 - Home Medications Home Medications: Ambulatory Orders Atorvastatin Ca [Lipitor] 80 mg PO HS 09/25/17 Docusate Sodium 300 mg PO DAILY 09/25/17 Duloxetine HCl [Cymbalta -] 60 mg PO DAILY 09/25/17 Folic Acid 1 mg PO DAILY 09/25/17 Levothyroxine [Synthroid -] 175 mcg PO DAILY 09/25/17 Montelukast Sodium [Singulair] 10 mg PO DAILY 09/25/17 Polyethylene Glycol 3350 [Miralax 119 gm Btl -] 17 gm PO DAILY 09/25/17 Potassium Chloride [K-Dur -] 20 meq PO DAILY 09/25/17 Spironolactone 25 mg PO DAILY 09/25/17 Tamsulosin HCl [Flomax -] 0.4 mg PO DAILY 09/25/17 Apixaban [Eliquis -] 5 mg PO BID #6 tablet 09/28/17 Clotrimazole/Betamet Diprop [Lotrisone -] 1 applic TP BID #60 grams 09/28/17 Carvedilol [Coreg -] 6.25 mg PO BID #60 tablet 11/15/17 Furosemide [Lasix -] 60 mg PO BID tablet 11/15/17 Lipase/Protease/Amylase [Surendra Hayes 36,000 Units Capsule] 1 cap PO TIDCM #90 capsule.dr 11/15/17 Lisinopril [Prinivil] 5 mg PO DAILY #30 tablet 11/15/17 Metoclopramide HCl [Reglan -] 5 mg PO TIDAC #90 tablet 11/15/17 Pantoprazole Sodium [Protonix -] 40 mg PO BID #60 tablet.ec 11/15/17 Acetaminophen [Tylenol .Regular Strength -] 650 mg PO Q6H PRN tablet 11/28/17 Insulin (Levemir) [Levemir Vial] 10 units SQ BID@0700,2200 ml 11/28/17 Insulin Sliding Scale [Novolog Vial Sliding Scale -] 1 vial SQ ACHS units 11/28 Physical Exam Vital Signs: Vital Signs Temperature 97.6 F 12/13/17 17:55 Pulse Rate 81 12/13/17 17:55 Respiratory Rate 18 12/13/17 17:55 Blood Pressure 124/70 12/13/17 17:55 O2 Sat by Pulse Oximetry (%) 94 L 12/13/17 09:00 Labs: CBC, BMP 12/13/17 06:20 12/13/17 06:20 Assessment/Plan 82 yr old man with a history of pruritis for 2 days . Patient complains of pruritis on chest and arms. On physical exam he has multiple excoriations on his chest and abdomen. There is an eczematous eruption on both inner upper arms. Overall the patient has very dry skin and due to his Diabetes he will be prone to dry skin and itching. Please apply moisturizer amd triamcinolone 0.1 cream to affected area QD. There is no primary eruption other than eczema on arms
[2017-12-13 21:01] LABS: URINE APPEARANCE CLEAR; URINE BILIRUBIN NEGATIVE (NEGATIVE); URINE BLOOD NEGATIVE (NEGATIVE); URINE COLOR LTYELLOW; URINE GLUCOSE (UA) 1+ (NEGATIVE); URINE KETONE NEGATIVE (NEGATIVE); URINE NITRITE NEGATIVE (NEGATIVE); URINE PROTEIN NEGATIVE (NEGATIVE); URINE UROBILINOGEN NEGATIVE mg/dL (0.2-1.0)
[2017-12-13] MEDS: TRIAMCINOLONE ACET 0.1% CREAM 15 GM TUBE TP SCH (21:34)
[2017-12-13] MEDS: MONTELUKAST NA 10 MG TABLET PO SCH (21:37)
[2017-12-13] MEDS: LIDOCAINE PATCH REMOVAL MC SCH (21:39)
[2017-12-13] MEDS: ATORVASTATIN CA 80 MG TABLET (FP) PO SCH (21:39)
[2017-12-13 21:41] LABS: URINE LEUK ESTERASE 1+ (NEGATIVE)
[2017-12-13 21:46] LABS: EPI CELLS RARE /HPF (FEW)
[2017-12-13] MEDS ORDERED: SENNOSIDES 8.6MG TABLET (FP) PO SCH (22:00)
[2017-12-14] MEDS ORDERED: LEVOTHYROXINE NA 75 MCG TABLET (FP) ONE (05:22)
[2017-12-14] MEDS ORDERED: LEVOTHYROXINE NA 100 MCG TABLET (FP) ONE (05:22)
[2017-12-14] MEDS: INSULIN SLIDING SCALE (NOVOLOG) 1 VIAL SQ SCH ×2 (06:24→11:40)
[2017-12-14] MEDS: INSULIN DETEMIR 100 UNITS/ML MDV SQ SCH (06:24)
[2017-12-14] MEDS: LEVOTHYROXINE 100 MCG, LEVOTHYROXINE 75 MCG PO SCH (06:25)
[2017-12-14 07:27] LABS: BASO % 0.5 % (0-2.0); EOS % 4.4 % (0-4.5); HEMATOCRIT 30.1 % (35.4-49); HEMOGLOBIN 10.1 GM/dL (11.7-16.9); LYMPH % 5.5 % (8-40); MCH 28.4 pg (25.7-33.7); MCHC 33.4 g/dl (32.0-35.9); MEAN CELL VOLUME 84.9 fl (80-96); MEAN PLT VOLUME 9.4 fl (7.5-11.1); MONO % 7.8 % (3.8-10.2); NEUT % 81.8 % (42.8-82.8); PLATELET COUNT 192 K/MM3 (134-434); RBC 3.55 M/mm3 (4.00-5.60); RDW 17.1 % (11.9-15.9); WHITE BLOOD COUNT 10.9 K/mm3 (4.0-10.0)
[2017-12-14] MEDS: ALBUTEROL SO4 2.5/IPRATROPIUM 0.5 INH SOL 3 ML VIAL.NEB. NEB SCH ×2 (07:30→11:57)
[2017-12-14] MEDS: TAMSULOSIN HCL 0.4 MG CAP.ER.24H (FP) PO SCH (08:04)
[2017-12-14] MEDS: traMADol HCL 50 MG TABLET PO SCH (08:05)
[2017-12-14 08:22] LABS: ANION GAP 6 (8-16); BLOOD UREA NITROGEN 32 mg/dL (7-18); CALCIUM 8.6 mg/dL (8.5-10.1); CHLORIDE 99 mmol/L (98-107); CO2 27 mmol/L (21-32); CREATININE 1.2 mg/dL (0.7-1.3); GLUCOSE,RANDOM 177 mg/dL (74-106); MAGNESIUM 2.3 mg/dL (1.8-2.4); PHOSPHOROUS 3.9 mg/dL (2.5-4.9); POTASSIUM 5.6 mmol/L (3.5-5.1); SODIUM 132 mmol/L (136-145)
[2017-12-14] MEDS: CARVEDILOL 6.25 MG TABLET (FP) PO SCH (09:53)
[2017-12-14] MEDS: PANTOPRAZOLE 40 MG TABLET (FP) PO SCH (09:53)
[2017-12-14] MEDS: AMOXICILLIN 500 MG CAPSULE (FP) PO SCH (09:53)
[2017-12-14] MEDS: LIDOCAINE 5% TOPICAL PATCH TP SCH (09:54)
[2017-12-14] MEDS: APIXABAN 5 MG TABLET PO SCH (09:54)
[2017-12-14] MEDS: TRIAMCINOLONE ACET 0.1% CREAM 15 GM TUBE TP SCH (09:57)
--- NOTE | 2017-12-14 09:57 | EKG ---
Test Reason : Blood Pressure : / mmHG Vent. Rate : 060 BPM Atrial Rate : 060 BPM P-R Int : 188 ms QRS Dur : 180 ms QT Int : 544 ms P-R-T Axes : 000 -76 124 degrees QTc Int : 544 ms AV dual-paced rhythm ABNORMAL ECG WHEN COMPARED WITH ECG OF 12-DEC-2017 14:02, NO SIGNIFICANT CHANGE WAS FOUND Confirmed by MADI RUTH MD ([id number]) on 12/14/2017 9:57:10 AM Referred By: Confirmed By:MADI RUTH MD
[2017-12-14] MEDS: POLYETHYLENE GLYCOL 3350 119 GM BTL PO SCH (10:00)
--- NOTE | 2017-12-14 11:24 | PN ---
Progress Note, Physician Chief Complaint: Hyponatremia Weakness History of Present Illness: NAD, in bed has back pain Seen by Neurosurgery, recommended conservative efforts first, trial of TLSO brace UC ESBL but not confirmative of UTI Amoxicillin BID indefinite - Current Medication List Current Medications: Active Medications Acetaminophen (Tylenol -) 650 mg PO Q6H PRN PRN Reason: FEVER Last Admin: 12/12/17 18:25 Dose: 650 mg Albuterol/Ipratropium (Duoneb -) 1 amp NEB RQID [facility] Last Admin: 12/14/17 07:30 Dose: 1 amp Amoxicillin (Amoxicillin -) 500 mg PO BID [facility] Last Admin: 12/14/17 09:53 Dose: 500 mg Apixaban (Eliquis -) 2.5 mg PO BID [facility] Last Admin: 12/14/17 09:54 Dose: 2.5 mg Atorvastatin Calcium (Lipitor -) 80 mg PO HS [facility] Last Admin: 12/13/17 21:39 Dose: 80 mg Carvedilol (Coreg -) 6.25 mg PO BID [facility] Last Admin: 12/14/17 09:53 Dose: 6.25 mg Insulin Aspart (Novolog Vial Sliding Scale -) 0 vial SQ [facility] PRN Reason: Protocol Last Admin: 12/14/17 06:24 Dose: 2 units Insulin Detemir (Levemir Vial) 15 units SQ HS [facility] Last Admin: 12/13/17 21:43 Dose: 15 units Insulin Detemir (Levemir Vial) 20 units SQ AM [facility] Last Admin: 12/14/17 06:24 Dose: 20 units Levothyroxine Sodium 100 mcg/ (Levothyroxine Sodium 75 mcg) 175 mcg PO DAILY@ 0700 [facility] Last Admin: 12/14/17 06:25 Dose: 175 mcg Lidocaine (Lidoderm Patch -) 1 patch TP DAILY [facility] Last Admin: 12/14/17 09:54 Dose: 1 patch Miscellaneous (Lidoderm Patch Removal) 1 each MC DAILY@2200 [facility] Last Admin: 12/13/17 21:39 Dose: 1 each Montelukast Sodium (Singulair -) 10 mg PO [facility] Last Admin: 12/13/17 21:37 Dose: 10 mg Ondansetron HCl (Zofran Injection) 4 mg IVPB Q6H PRN PRN Reason: NAUSEA Last Admin: 12/13/17 08:54 Dose: 4 mg Oxycodone HCl (Roxicodone -) 5 mg PO Q6H PRN PRN Reason: PAIN LEVEL 7 - 10 Last Admin: 12/13/17 21:40 Dose: 5 mg Pantoprazole Sodium (Protonix -) 40 mg PO BID [facility] Last Admin: 12/14/17 09:53 Dose: 40 mg Polyethylene Glycol (Miralax (For Daily Use) -) 17 gm PO BID [facility] Last Admin: 12/14/17 10:00 Dose: 17 gm Senna (Senna -) 2 tab PO HS [facility] Last Admin: 12/13/17 21:37 Dose: 2 tab Tamsulosin HCl (Flomax -) 0.4 mg PO DAILY@0830 [facility] Last Admin: 12/14/17 08:04 Dose: 0.4 mg Tramadol HCl (Ultram -) 50 mg PO Q8H [facility] Last Admin: 12/14/17 08:05 Dose: 50 mg Triamcinolone Acetonide (Aristocort 0.1% Cream -) 1 applic TP BID [facility] Last Admin: 12/14/17 09:57 Dose: 1 applic - Objective Vital Signs: Vital Signs Temperature 98.6 F 12/14/17 06:00 Pulse Rate 73 12/14/17 06:00 Respiratory Rate 18 12/14/17 06:00 Blood Pressure 106/53 12/14/17 06:00 O2 Sat by Pulse Oximetry (%) 97 12/13/17 21:00 Constitutional: Yes: Well Nourished, No Distress, Calm Cardiovascular: Yes: Regular Rate and Rhythm Respiratory: Yes: Regular Gastrointestinal: Yes: Normal Bowel Sounds, Abdomen, Obese Musculoskeletal: Yes: WNL Extremities: Yes: WNL Edema: No Peripheral Pulses WNL: Yes Neurological: Yes: Alert, Oriented Psychiatric: Yes: Alert, Oriented Labs: CBC, BMP 12/14/17 06:30 12/14/17 06:30 Problem List - Problems (1) Chronic cellulitis Assessment/Plan: -Left atkinson, 2/2 to non healing fracture -Amoxicillin bid indefinite -Seen by ID Code(s): L03.90 - CELLULITIS, UNSPECIFIED (2) Diabetes mellitus, insulin dependent (IDDM), uncontrolled Assessment/Plan: -diabetic diet -BGM -Endocrinology consult -Insulin Code(s): E10.65 - TYPE 1 DIABETES MELLITUS WITH HYPERGLYCEMIA Qualifiers: (3) Intractable low back pain Assessment/Plan: -mild compression fracture of T12 -Seen by Neurosurgery -TLSO brace -pain management Code(s): M54.5 - LOW BACK PAIN (4) Compression fracture Code(s): GOE8840 - (5) THERON (acute kidney injury) Assessment/Plan: -renal consult appreciated -BUN gradually improving Code(s): N17.9 - ACUTE KIDNEY FAILURE, UNSPECIFIED (6) Hyponatremia Assessment/Plan: -improved -renal consult Code(s): E87.1 - HYPO-OSMOLALITY AND HYPONATREMIA Assessment/Plan see problem list SNF today with repeat CMP tomorrow
[2017-12-14] MEDS ORDERED: INSULIN (NOVOLOG) ASPART 100 UNITS/ML 10ML VIAL ONE (11:37)
--- NOTE | 2017-12-14 11:38 | DS ---
Physical Examination Vital Signs: Vital Signs Temperature 98.6 F 12/14/17 06:00 Pulse Rate 73 12/14/17 06:00 Respiratory Rate 18 12/14/17 06:00 Blood Pressure 106/53 12/14/17 06:00 O2 Sat by Pulse Oximetry (%) 97 12/13/17 21:00 Constitutional: Yes: Well Nourished, No Distress, Calm Cardiovascular: Yes: Regular Rate and Rhythm Respiratory: Yes: Regular Gastrointestinal: Yes: Normal Bowel Sounds, Abdomen, Obese Musculoskeletal: Yes: WNL Extremities: Yes: WNL Edema: No Peripheral Pulses WNL: Yes Neurological: Yes: Alert, Oriented Psychiatric: Yes: Alert, Oriented Labs: CBC, BMP 12/14/17 06:30 12/14/17 06:30 Discharge Summary Reason For Visit: HYPONATREMIA Current Active Problems THERON (acute kidney injury) (Acute) Chronic cellulitis (Acute) Compression fracture (Acute) Fall (Acute) Hyponatremia (Acute) Intractable low back pain (Acute) Hospital Course: This is a 82 year old male pmhx CAD (s/p stents x2), CHF, dementia, DM II, diverticulitis (s/p partial colectomy), HTN, HLD, hypothyroidism, s/p mechanical fall 12/08 after tripping outside. At that time, CT head and pelvis was negative for acute pathology. Today the patient presents with increased pain in the last 2 days. Family has also noted pt to be increasing unsteady at home. Currently, pt is ambulating, however in acute pain requesting pain medication. He denies sob, chest pain, abd pain, n/v, changes in urinary or bowel habits. He wants to eat and urinate. CT head and pelvis unremarkable. T11 fracture noted, likely old. Pt with no midline T-spine tenderness. Condition: Stable - Instructions Diet, Activity, Other Instructions: -Low Sodium Diabetic diet -Amoxicillin 500 mg po BID indefinitely for chronic cellulitis on LLE due to non healing hardware. -CMP on 12/15/17- notify renal -Follow up with Keshav Sam outpatient within 1 week. Referrals: Rodriguez Rowan MD [Primary Care Provider] - Keshav Werner MD [Staff Physician] - Disposition: [facility] - Home Medications Comprehensive Discharge Medication List: Ambulatory Orders Atorvastatin Ca [Lipitor] 80 mg PO HS 09/25/17 Docusate Sodium 300 mg PO DAILY 09/25/17 Duloxetine HCl [Cymbalta -] 60 mg PO DAILY 09/25/17 Folic Acid 1 mg PO DAILY 09/25/17 Levothyroxine [Synthroid -] 175 mcg PO DAILY 09/25/17 Montelukast Sodium [Singulair] 10 mg PO DAILY 09/25/17 Polyethylene Glycol 3350 [Miralax 119 gm Btl -] 17 gm PO DAILY 09/25/17 Potassium Chloride [K-Dur -] 20 meq PO DAILY 09/25/17 Spironolactone 25 mg PO DAILY 09/25/17 Tamsulosin HCl [Flomax -] 0.4 mg PO DAILY 09/25/17 Apixaban [Eliquis -] 5 mg PO BID #6 tablet 09/28/17 Clotrimazole/Betamet Diprop [Lotrisone -] 1 applic TP BID #60 grams 09/28/17 Carvedilol [Coreg -] 6.25 mg PO BID #60 tablet 11/15/17 Furosemide [Lasix -] 60 mg PO BID tablet 11/15/17 Lipase/Protease/Amylase [Surendra Hayes 36,000 Units Capsule] 1 cap PO TIDCM #90 capsule. 11/15/17 Lisinopril [Prinivil] 5 mg PO DAILY #30 tablet 11/15/17 Metoclopramide HCl [Reglan -] 5 mg PO TIDAC #90 tablet 11/15/17 Pantoprazole Sodium [Protonix -] 40 mg PO BID #60 tablet.ec 11/15/17 Acetaminophen [Tylenol .Regular Strength -] 650 mg PO Q6H PRN tablet 11/28/17 Insulin (Levemir) [Levemir Vial] 10 units SQ BID@0700,2200 ml 11/28/17 Insulin Sliding Scale [Novolog Vial Sliding Scale -] 1 vial SQ ACHS units 11/28
[2017-12-14 12:05] VITALS: BP 103/57; PULSE 60; TEMP 98.2
--- NOTE | 2017-12-14 13:11 | PN ---
Progress Note (short form) - Note Progress Note: Patient more comfortable than yesterday. No Neurosurgical restriction on discharge planning. TLSO for comfort as tolerated. Patient given contact information if he does not improve.
--- NOTE | 2017-12-14 17:43 | PN ---
Progress Note (short form) - Note Progress Note: Renal follow up for THERON pt seen and examined at the bedside no complaints denies any sob, chest pain, abd pain K noted to 5.6, pt had been eating bannas and other foods brought by family Vital Signs Temperature 98.2 F 12/14/17 10:00 Pulse Rate 60 12/14/17 10:00 Respiratory Rate 18 12/14/17 10:00 Blood Pressure 103/57 12/14/17 10:00 O2 Sat by Pulse Oximetry (%) 97 12/14/17 09:00 Intake & Output 12/11/17 12/12/17 12/13/17 12/14/17 23:59 23:59 23:59 23:59 Intake Total 600 440 830 Output Total 250 700 Balance 600 190 130 Weight 95.254 kg NAD awake and alert irregular Dec BS, no rales Obese, NT/ND no bladder distensin No LE edema CBC, BMP 12/14/17 06:30 12/14/17 06:30 82 year old gentleman with PMhx of CAD, CHF, Afib, dementia, Hypthyrodism, Hypertension who presented with mechanical fall and developed THERON as inpatient. #THERON likely due to renal hypoprofusion +/- ATN in setting of hypotension/ infection +SARAH/diuretics Renal function is now improved to baseline would continue to hold SARAH/Aldactone given hyperkalemia importance of restricting high potassium foods discussed with the patient will need repeat BMP in ~5 days can resume SARAH/Aldactone once potassium normalizes can restart diuretics as needed for edema management Thank you for allowing us to take part in the care of this patient Keshav Werner DO
== END 2017-12-14 14:24 | DRG 552 ==
LOC: JER 09:13 → JERBED 14:59 → J5S 12-11 02:18 → OBSVTOIN 12-11 07:54 → J8W 12-13 15:08
PROVIDERS: ADMIT Internal Medicine; ATTEND Family Medicine
DX: S22.089A Unspecified fracture of T11-T12 vertebra, initial encounter for closed fracture (principal); E87.1 Hypo-osmolality and hyponatremia; N17.9 Acute kidney failure, unspecified; I50.22 Chronic systolic (congestive) heart failure; L03.116 Cellulitis of left lower limb; M54.5 Low back pain; I25.10 Atherosclerotic heart disease of native coronary artery without angina pectoris; Z98.61 Coronary angioplasty status; F03.90 Unspecified dementia, unspecified severity, without behavioral disturbance, psychotic disturbance, mood disturbance, and anxiety; E78.5 Hyperlipidemia, unspecified; E03.9 Hypothyroidism, unspecified; E10.65 Type 1 diabetes mellitus with hyperglycemia; I48.0 Paroxysmal atrial fibrillation; I11.0 Hypertensive heart disease with heart failure; R26.81 Unsteadiness on feet; N40.0 Benign prostatic hyperplasia without lower urinary tract symptoms; D72.829 Elevated white blood cell count, unspecified; W19.XXXA Unspecified fall, initial encounter; Y93.9 Activity, unspecified; Y92.89 Other specified places as the place of occurrence of the external cause; Y99.9 Unspecified external cause status; I25.5 Ischemic cardiomyopathy
CPT/HCPCS: 36415; 70450-TC; 71045-TC-FY; 72131-TC; 72192-TC; 80048; 80053; 81003; 81015; 82550; 82570; 82962; 83735; 83880; 84100; 84156; 84300; 84484; 84540; 85025; 85610; 85651; 85730; 86140; 87040; 87086; 87186; 93005; 93010; 94640; 97116-GP; 97161-GP; 99282-25; 99283-25; G0378; J0131; J7030

== ENCOUNTER 2018-01-04 09:59 | Emergency (ER) | payer OTHER ==
[2018-01-04 10:04] VITALS: BMI 38.2
--- NOTE | 2018-01-04 10:32 | PDOC ---
History of Present Illness - General History Source: Patient Exam Limitations: No Limitations - History of Present Illness Initial Comments: 01/04/18 11:14 The patient is a 83 year old male with a significant past medical history of CHF, Afib (/on Coumadin 4mg), MA (s/p stents x2 and PPM), HTN, HLD, IDDM, hypothyroidism, and diverticulitis (s/p partial colectomy) who presents to the emergency department with RUQ abdominal pain for the past couple of days. The patient reports gradual onset of RUQ abdominal pain, non-radiating, sharp, 10/ 10 in severity with no exacerbating or alleviating factors. The patient states he is eating and drinking normally. The patient endorses subjective fevers, nausea, thirst, fatigue, and chronic intermittent CP. The patient states he took his insulin this morning. Last BM yesterday. The patient denies trouble swallowing, CVA pain, blood in the stool or urine, chills, chest pain, headache or dizziness. Patient denies vomit, constipation, or diarrhea. Patient denies dysuria, frequency, urgency or hematuria. Patient denies sick contacts or recent travel. Allergies: NKDA Past Surgical History: partial colectomy, s/p stents x2, PPM Past Social History: No reported alcohol, drug, or cigarette use. <Carlie Gil - Last Filed: 01/04/18 14:19> <Desiree Aguilar - Last Filed: 01/05/18 14:53> - General Chief Complaint: Pain Stated Complaint: PAIN/ SIDE, BACK Time Seen by Provider: 01/04/18 10:30 Past History <Carlie Gil - Last Filed: 01/04/18 14:19> - Past Medical History Anemia: No Asthma: No Cancer: No Cardiac Disorders: Yes (2 cardiac stents) CVA: No COPD: No CHF: No DVT: No Dementia: (?) Diabetes: Yes (IDDM) Dialysis: No GI Disorders: Yes (DIVERTICULITIS, colectomy) Disorders: No HTN: Yes Hypercholesterolemia: Yes Kidney Stones: No Liver Disease: No Psychiatric Problems: No Seizures: No Thyroid Disease: Yes (HYPOTHYROIDISM) Lung CA: No - Surgical History Abdominal Surgery: Yes (FOR DIVERTICULITIS; partial colectomy) Appendectomy: No Cardiac Surgery: Yes (STENT X 2,ppm) Cholecystectomy: No Gastric Stapling: No GI Surgery: Yes Lung Surgery: No Neurologic Surgery: No Orthopedic Surgery: No - Immunization History Td Vaccination: No TDAP Vaccination: (unknown on last date now will receive on 12/18/2015) Immunization Up to Date: Yes (FLU ) - Suicide/Smoking/Psychosocial Hx Smoking Status: No Smoking History: Never smoked Have you smoked in the past 12 months: No Number of Cigarettes Smoked Daily: 0 If you are a former smoker, when did you quit?: 40 years ago Information on smoking cessation initiated: No Hx Alcohol Use: No Drug/Substance Use Hx: No Substance Use Type: None Hx Substance Use Treatment: No <Desiree Aguilar - Last Filed: 01/05/18 14:53> - Past Medical History Allergies/Adverse Reactions: Allergies Allergy/AdvReac Type Severity Reaction Status Date / Time No Known Drug Allergies Allergy Verified 12/10/17 09:37 Home Medications: Ambulatory Orders Duloxetine HCl [Cymbalta -] 60 mg PO DAILY 09/25/17 Folic Acid 1 mg PO DAILY 09/25/17 Levothyroxine [Synthroid -] 175 mcg PO DAILY 09/25/17 Spironolactone 25 mg PO DAILY 09/25/17 Albuterol 2.5/Ipratropium 0.5 [Duoneb -] 1 amp NEB RQID amp 12/14/17 Atorvastatin Ca [Lipitor] 80 mg PO HS tablet 12/14/17 Montelukast Na [Singulair -] 10 mg PO HS tablet 12/14/17 Tamsulosin HCl [Flomax -] 0.4 mg PO DAILY@0830 cap.er.24h 12/14/17 Alprazolam 0.25 mg PO BID 01/04/18 Carvedilol [Coreg -] 3.125 mg PO BID 01/04/18 Docusate Sodium 100 mg PO DAILY 01/04/18 Furosemide [Lasix -] 40 mg PO BID 01/04/18 Gabapentin 100 mg PO BID 01/04/18 Potassium Chloride [K-Dur -] 20 meq PO DAILY 01/04/18 Warfarin Sodium [Coumadin] 4 mg PO DAILY 01/04/18 Review of Systems - Review of Systems Comments:: <Carlie Gil - Last Filed: 01/04/18 14:19> - Review of Systems Able to Perform ROS?: Yes Comments:: GENERAL/CONSTITUTIONAL: No fever or chills. No weakness. HEAD, EYES, EARS, NOSE AND THROAT: No change in vision. No ear pain or discharge. No sore throat. CARDIOVASCULAR: No chest pain or shortness of breath. RESPIRATORY: No cough, wheezing, or hemoptysis. GASTROINTESTINAL: +Nausea. No vomiting, diarrhea or constipation. +Abd pain. GENITOURINARY: No dysuria, frequency, or change in urination. MUSCULOSKELETAL: No joint or muscle swelling or pain. No neck or back pain. SKIN: No rash NEUROLOGIC: No headache, vertigo, loss of consciousness, or change in strength/ sensation. ENDOCRINE: No increased thirst. No abnormal weight change. HEMATOLOGIC/LYMPHATIC: No anemia, easy bleeding, or history of blood clots. ALLERGIC/IMMUNOLOGIC: No hives or skin allergy. <Desiree Aguilar - Last Filed: 01/05/18 14:53> *Physical Exam - Vital Signs Last Vital Signs Temp Pulse Resp BP Pulse Ox 98.6 F 110 H 18 123/56 99 01/04/18 10:02 01/04/18 10:02 01/04/18 10:02 01/04/18 10:02 01/04/18 10:02 <Carlie Gil - Last Filed: 01/04/18 14:19> - Vital Signs Last Vital Signs Temp Pulse Resp BP Pulse Ox 98.6 F 110 H 18 123/56 99 01/04/18 10:02 01/04/18 10:02 01/04/18 10:02 01/04/18 10:02 01/04/18 10:02 - Physical Exam Comments: GENERAL: Awake, alert, and fully oriented, in no acute distress. Appears uncomfortable. HEAD: No signs of trauma EYES: PERRLA, EOMI, sclera anicteric, conjunctiva clear ENT: Auricles normal inspection, hearing grossly normal, nares patent, oropharynx clear without exudates. Dry mucosa NECK: Normal ROM, supple, no lymphadenopathy, JVD, or masses LUNGS: Breath sounds equal, clear to auscultation bilaterally. No wheezes, and no crackles HEART: Regular rate and rhythm, normal S1 and S2, no murmurs, rubs or gallops ABDOMEN: Soft, +RUQ/RLQ tenderness, normoactive bowel sounds. No guarding, no rebound. No masses EXTREMITIES: Normal range of motion, no edema. No clubbing or cyanosis. No cords, erythema, or tenderness NEUROLOGICAL: Cranial nerves II through XII grossly intact. Normal speech, normal gait SKIN: Warm, Dry, normal turgor, no rashes or lesions noted. <Desiree Aguilar - Last Filed: 01/05/18 14:53> Heart Score/ECG Review - ECG Impressions Comment:: EKG read 12:20- atrial sensed, ventricular paced rhythm 99 bpm. <Desiree Aguilar - Last Filed: 01/05/18 14:53> ED Treatment Course - LABORATORY CBC & Chemistry Diagram: 01/04/18 11:20 01/04/18 11:20 <Carlie Gil - Last Filed: 01/04/18 14:19> - LABORATORY CBC & Chemistry Diagram: 01/04/18 11:20 01/04/18 11:20 <Desiree Aguilar - Last Filed: 01/05/18 14:53> Medical Decision Making - Medical Decision Making 01/04/18 11:53 Pt requesting water for chest discomfort, but immediately became nauseous. Will keep NPO and plan for CT a/p. 01/04/18 17:10 CT read as normal by radiology. Patient given a PO challenge which he tolerated. Stable for DC home. <Desiree Aguilar - Last Filed: 01/05/18 14:53> *DC/Admit/Observation/Transfer - Attestations Scribe Attestion: 01/04/18 12:01 Documentation prepared by Carlie Gil, acting as director of medical staff services for Desiree Aguilar MD. <Carlie Gil - Last Filed: 01/04/18 14:19> - Discharge Dispostion Admit: No <Desiree Aguilar - Last Filed: 01/05/18 14:53> Diagnosis at time of Disposition: Abdominal pain Qualifiers: Abdominal location: unspecified location Qualified Code(s): R10.9 - Unspecified abdominal pain - Discharge Dispostion Disposition: HOME Condition at time of disposition: Stable - Patient Instructions Printed Discharge Instructions: DI for Abdominal Pain-Adult, DI for Hyperglycemia -- Adult
[2018-01-04] MEDS ORDERED: SODIUM CHLORIDE 1,000 ML IV STA (11:00)
[2018-01-04] MEDS ORDERED: ONDANSETRON 4 MG/2 ML VIAL IVPUSH ONE (11:00)
[2018-01-04] MEDS ORDERED: SODIUM CHLORIDE 500 ML IV STA (11:01)
[2018-01-04] MEDS ORDERED: ONDANSETRON 4 MG/2 ML VIAL ONE (11:10)
[2018-01-04 11:24] LABS: BASO % 1.2 % (0-2.0); EOS % 3.8 % (0-4.5); HEMATOCRIT 34.6 % (35.4-49); HEMOGLOBIN 11.5 GM/dL (11.7-16.9); MCHC 33.2 g/dl (32.0-35.9); MEAN CELL VOLUME 84.3 fl (80-96); MEAN PLT VOLUME 8.2 fl (7.5-11.1); MONO % 13.2 % (3.8-10.2); NEUT % 67.8 % (42.8-82.8); PLATELET COUNT 233 K/MM3 (134-434); RDW 17.8 % (11.9-15.9); WHITE BLOOD COUNT 6.7 K/mm3 (4.0-10.0)
[2018-01-04 11:42] LABS: CHLORIDE 89 mmol/L (98-107); POTASSIUM 5.1 mmol/L (3.5-5.1); SODIUM 128 mmol/L (136-145)
[2018-01-04 11:44] LABS: INR 1.26 (0.82-1.09); PROTHROMBIN TIME (PATIENT) 14.2 SEC (9.98-11.88)
[2018-01-04 11:59] LABS: ALBUMIN 3.2 g/dl (3.4-5.0); ALK PHOS 143 U/L (45-117); ANION GAP 13 (8-16); BILIRUBIN,TOTAL 0.5 mg/dL (0.2-1.0); BLOOD UREA NITROGEN 25 mg/dL (7-18); CALCIUM 9.2 mg/dL (8.5-10.1); CO2 26 mmol/L (21-32); CREATININE 1.2 mg/dL (0.7-1.3); LIPASE 49 U/L (73-393); SGOT/AST 13 U/L (15-37); SGPT/ALT 17 U/L (12-78); TOT PROT 7.9 g/dl (6.4-8.2)
[2018-01-04 12:05] LABS: GLUCOSE,RANDOM 340 mg/dL (74-106)
[2018-01-04] MEDS ORDERED: INSULIN REGULAR HUMAN 100 UNITS/ML *VIAL SQ ONE (15:12)
[2018-01-04] MEDS ORDERED: INSULIN REGULAR HUMAN 100 UNITS/ML *VIAL ONE (16:09)
[2018-01-04 16:43] LABS: URINE APPEARANCE CLEAR; URINE BILIRUBIN NEGATIVE (<2.0 mg/dL); URINE BLOOD NEGATIVE (NEGATIVE); URINE COLOR LTYELLOW; URINE GLUCOSE (UA) 3+ (NEGATIVE); URINE KETONE NEGATIVE (NEGATIVE); URINE LEUK ESTERASE TRACE (NEGATIVE); URINE NITRITE NEGATIVE (NEGATIVE); URINE PROTEIN NEGATIVE (NEGATIVE); URINE UROBILINOGEN NEGATIVE mg/dL (0.2-1.0)
[2018-01-04] MEDS ORDERED: ACETAMINOPHEN 325 MG TABLET (FP) ONE (17:29)
[2018-01-04] MEDS ORDERED: ACETAMINOPHEN 325 MG TABLET (FP) PO ONE (17:51)
[2018-01-04 17:52] VITALS: BP 139/89; PULSE 90; TEMP 98.6
--- NOTE | 2018-01-07 14:14 | EKG ---
Test Reason : Blood Pressure : / mmHG Vent. Rate : 099 BPM Atrial Rate : 099 BPM P-R Int : 000 ms QRS Dur : 182 ms QT Int : 420 ms P-R-T Axes : 000 -76 089 degrees QTc Int : 539 ms Atrial-sensed ventricular-paced rhythm ABNORMAL ECG WHEN COMPARED WITH ECG OF 13-DEC-2017 09:05, VENT. RATE HAS INCREASED BY 31 BPM Confirmed by RAFAEL SMITH MD ([id number]) on 01/07/2018 2:14:03 PM Referred By: Confirmed By:RAFAEL SMITH MD
== END 2018-01-04 18:35 | disposition home or self-care (01) ==
LOC: JER 09:59
PROC: 3E033VG Introduction of Insulin into Peripheral Vein, Percutaneous Approach (ICD-10-PCS; principal; 2018-01-04)
PROC: 3E033GC Introduction of Other Therapeutic Substance into Peripheral Vein, Percutaneous Approach (ICD-10-PCS; 2018-01-04)
PROC: 3E0337Z Introduction of Electrolytic and Water Balance Substance into Peripheral Vein, Percutaneous Approach (ICD-10-PCS; 2018-01-04)
DX: R10.9 Unspecified abdominal pain (principal); Z95.5 Presence of coronary angioplasty implant and graft; E11.9 Type 2 diabetes mellitus without complications; I10 Essential (primary) hypertension; E78.00 Pure hypercholesterolemia, unspecified; E03.9 Hypothyroidism, unspecified; Z87.891 Personal history of nicotine dependence
CPT/HCPCS: 36415; 71045-TC-FY; 74176-TC; 80053; 81003; 81015; 82550; 82962; 83690; 84484; 85025; 85610; 93005; 93010; 96361; 96372; 96374; 99283-25; J7030

== ENCOUNTER 2018-01-09 14:37 | Inpatient (IN) | payer OTHER ==
--- NOTE | 2018-01-09 14:48 | PDOC ---
Rapid Medical Evaluation Time Seen by Provider: 01/09/18 14:41 Medical Evaluation: Allergies Allergy/AdvReac Type Severity Reaction Status Date / Time No Known Drug Allergies Allergy Verified 12/10/17 09:37 01/09/18 14:41 I have performed a brief in-person evaluation of this patient. The patient presents with a chief complaint of: right knee gave out on him, tripped, fell on knee, denies LOC/vomiting, on coumadin, "wheezing, breathing heavy", per daughter patient acting at baseline, hx of htn, hld, dm, s/p 3 stents and pacer, hx of stroke Pertinent physical exam findings: pale, +cough, lungs ctab I have ordered the following: labs, ekg The patient will proceed to the ED for further evaluation. Discharge Disposition - Diagnosis Fall - Referrals Referrals: Rodriguez Rowan MD [Primary Care Provider] - - Patient Instructions - Post Discharge Activity
--- NOTE | 2018-01-09 16:06 | PDOC ---
*Physical Exam - Vital Signs Last Vital Signs Temp Pulse Resp BP Pulse Ox 98.2 F 88 16 101/70 100 01/09/18 14:45 01/09/18 14:45 01/09/18 14:45 01/09/18 14:45 01/09/18 14:45 - Physical Exam Comments: 01/09/18 16:06 The patient was examined by [RENAY Valladares] under my direct supervision. I personally evaluated the patient. I concur with the above findings and the plan of care. *DC/Admit/Observation/Transfer Diagnosis at time of Disposition: Fall - Referrals Referrals: Rodriguez Rowan MD [Primary Care Provider] - - Patient Instructions - Post Discharge Activity
[2018-01-09 16:22] LABS: BASO % 0.7 % (0-2.0); EOS % 1.1 % (0-4.5); HEMATOCRIT 32.6 % (35.4-49); HEMOGLOBIN 11.2 GM/dL (11.7-16.9); LYMPH % 9.6 % (8-40); MCHC 34.2 g/dl (32.0-35.9); MEAN CELL VOLUME 84.6 fl (80-96); MEAN PLT VOLUME 8.9 fl (7.5-11.1); MONO % 11.6 % (3.8-10.2); PLATELET COUNT 259 K/MM3 (134-434); RBC 3.86 M/mm3 (4.00-5.60); RDW 17.1 % (11.9-15.9); WHITE BLOOD COUNT 7.9 K/mm3 (4.0-10.0)
--- NOTE | 2018-01-09 16:34 | PDOC ---
History of Present Illness - General Chief Complaint: Shortness of Breath Stated Complaint: RT knee pain/SOB/Cough Time Seen by Provider: 01/09/18 14:41 History Source: Patient, Family Exam Limitations: Clinical Condition, Dementia - History of Present Illness Initial Comments: 01/09/18 16:29 HPI: 72-year-old male presents to the emergency room with his home health aide/ daughter. Apparently the daughter states that he was having some shortness of breath and was going to come here to the emergency room when he fell outside the house and they called 911. He said he legs got weak and he landed on his right knee. 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 FH: Pt has not recently traveled outside the country in the last 30 days. Pt has not been in contact with people who have traveled out of the country, in contact with people who have been ill with fever, n, v, d. SH: smoking use: NONE illicit drug use: NONE alcohol use: NONE PSH: Home med use noted on NOV Allergies:nka Immunizations: PCP: Past History - Past Medical History Allergies/Adverse Reactions: Allergies Allergy/AdvReac Type Severity Reaction Status Date / Time No Known Drug Allergies Allergy Verified 01/09/18 14:48 Home Medications: Ambulatory Orders Duloxetine HCl [Cymbalta -] 60 mg PO DAILY 09/25/17 Folic Acid 1 mg PO DAILY 09/25/17 Levothyroxine [Synthroid -] 175 mcg PO DAILY 09/25/17 Spironolactone 25 mg PO DAILY 09/25/17 Albuterol 2.5/Ipratropium 0.5 [Duoneb -] 1 amp NEB RQID amp 12/14/17 Atorvastatin Ca [Lipitor] 80 mg PO HS tablet 12/14/17 Montelukast Na [Singulair -] 10 mg PO HS tablet 12/14/17 Tamsulosin HCl [Flomax -] 0.4 mg PO DAILY@0830 cap.er.24h 12/14/17 Alprazolam 0.25 mg PO BID 01/04/18 Carvedilol [Coreg -] 3.125 mg PO BID 01/04/18 Docusate Sodium 100 mg PO DAILY 01/04/18 Furosemide [Lasix -] 40 mg PO BID 01/04/18 Gabapentin 100 mg PO BID 01/04/18 Potassium Chloride [K-Dur -] 20 meq PO DAILY 01/04/18 Warfarin Sodium [Coumadin] 4 mg PO DAILY 01/04/18 Anemia: No Asthma: No Cancer: No Cardiac Disorders: Yes (3 cardiac stents) CVA: Yes COPD: No CHF: No DVT: No Dementia: (?) Diabetes: Yes (IDDM) Dialysis: No GI Disorders: Yes (DIVERTICULITIS, colectomy) Disorders: No HTN: Yes Hypercholesterolemia: Yes Kidney Stones: No Liver Disease: No Psychiatric Problems: No Seizures: No Thyroid Disease: Yes (HYPOTHYROIDISM) Lung CA: No - Surgical History Abdominal Surgery: Yes (FOR DIVERTICULITIS; partial colectomy) Appendectomy: No Cardiac Surgery: Yes (STENT X 3,ppm) Cholecystectomy: No Gastric Stapling: No GI Surgery: Yes Lung Surgery: No Neurologic Surgery: No Orthopedic Surgery: No - Immunization History Td Vaccination: No TDAP Vaccination: (unknown on last date now will receive on 12/18/2015) Immunization Up to Date: Yes (FLU ) - Suicide/Smoking/Psychosocial Hx Smoking Status: No Smoking History: Never smoked Have you smoked in the past 12 months: No Number of Cigarettes Smoked Daily: 0 If you are a former smoker, when did you quit?: 40 years ago Information on smoking cessation initiated: No Hx Alcohol Use: No Drug/Substance Use Hx: No Substance Use Type: None Hx Substance Use Treatment: No Review of Systems - Review of Systems Able to Perform ROS?: Yes Comments:: 01/09/18 16:31 General statement: Pt with c/o sob Hematology: neg history of bleeding/blood thinners Skin: Neg for lesions, rash, bruising. HEENT: Neg symptoms Respiratory: + SOB with out difficulty in breathing Cardiac: Neg chest pain GI: Neg pain, n/v : Neg problems on voiding MS: Neg for joint pain/stiffness, no edema Neuro: Neg for LOC, +weakness, Endocrine: Neg for excess thirst/hunger, cold/heat intolerance, excess sweating Allergies: Neg for allergies *Physical Exam - Vital Signs Last Vital Signs Temp Pulse Resp BP Pulse Ox 98.2 F 88 16 101/70 100 01/09/18 14:45 01/09/18 14:45 01/09/18 14:45 01/09/18 14:45 01/09/18 14:45 - Physical Exam Comments: 01/09/18 16:31 General Appearance: This overweight 82 yr old male appears sob, poor historian with daughter present. He is incont of urine, not following all commands, and had a recent fall. He was seen here 3 days ago. V/S: hemodynamically stable, afebrile Skin: WNL of pt's skin color, no signs of pallor, mottling, cyanosis, noted eccymotic on arms. Head:symmetrical Eyes: EOM's intact, PERRLA Ears: denies pain Nose: patent Throat: lips, teeth, gums, tongue, buccal mucos pink and moist Lungs: Chest symmetry equal. Cap refill <3 seconds. Lung sounds bibasilar rales 1/2 up Cardiac: PMI at R 4MCL space, pos S1 and S2, irregular rate. Abdomen: Soft, round, nontender : Not observed Muscularskeletal: ungait steady when walking, no edema +PMS Neuro: AAOx2, azeri speaking and slow speech. Daughter said this is not new for pt. . ED Treatment Course - LABORATORY CBC & Chemistry Diagram: 01/09/18 15:50 01/09/18 15:50 - ADDITIONAL ORDERS Additional order review: 01/09/18 15:50 RBC 3.86 L MCV 84.6 MCHC 34.2 RDW 17.1 H MPV 8.9 Neutrophils % 77.0 Lymphocytes % 9.6 D Monocytes % 11.6 H Eosinophils % 1.1 Basophils % 0.7 - RADIOLOGY Radiology Studies Ordered: Category Date Time Status HEAD CT WITHOUT CONTRAST [CT] Stat CT Scan 01/09/18 15:50 Ordered CHEST X-RAY PORTABLE* [RAD] Stat Radiology 01/09/18 15:42 Ordered Medical Decision Making - Medical Decision Making 01/09/18 16:34 a/p: 82 yr old male who is very familiar with hospital with his significant history. now here with recent fall and sob -head ct -labs with coags, bnp, trops -cxr -ua -ekg 01/09/18 18:16 Laboratory Tests 01/09/18 01/09/18 01/09/18 15:50 15:50 15:50 WBC 7.9 Hgb 11.2 L Hct 32.6 L Plt Count 259 PT with INR 24.50 H INR 2.17 H D Sodium 123 L* Potassium 5.3 H Chloride 88 L Carbon Dioxide 27 Anion Gap 8 BUN 39 H D Creatinine 1.2 Creat Clearance w eGFR 58.11 Random Glucose 328 H* Calcium 8.8 Magnesium Total Bilirubin 0.4 AST 30 D ALT 41 D Alkaline Phosphatase 184 H D Creatine Kinase 52 Troponin I 0.09 H D B-Natriuretic Peptide Total Protein 7.7 Albumin 3.3 L 01/09/18 15:50 WBC Hgb Hct Plt Count PT with INR INR Sodium Potassium Chloride Carbon Dioxide Anion Gap BUN Creatinine Creat Clearance w eGFR Random Glucose Calcium Magnesium 1.4 L D Total Bilirubin AST ALT Alkaline Phosphatase Creatine Kinase Troponin I B-Natriuretic Peptide 98216.47 H Total Protein Albumin 01/09/18 18:17 Pt is noted to be hyponatremic at 123, [place] [address] [place] lasix at home with now sob electrolyte imbalance noted and will replete INR within range with coumadin head ct pending results *DC/Admit/Observation/Transfer Diagnosis at time of Disposition: Hyponatremia Fall Qualifiers: Encounter type: initial encounter Qualified Code(s): W19.XXXA - Unspecified fall, initial encounter - Discharge Dispostion Condition at time of disposition: Poor Admit: Yes - Referrals Referrals: Rodriguez Rowan MD [Primary Care Provider] - - Patient Instructions - Post Discharge Activity
[2018-01-09 16:41] LABS: INR 2.17 (0.82-1.09); PROTHROMBIN TIME (PATIENT) 24.5 SEC (9.98-11.88)
[2018-01-09 17:03] LABS: ALBUMIN 3.3 g/dl (3.4-5.0); ANION GAP 8 (8-16); BLOOD UREA NITROGEN 39 mg/dL (7-18); CALCIUM 8.8 mg/dL (8.5-10.1); CHLORIDE 88 mmol/L (98-107); CO2 27 mmol/L (21-32); POTASSIUM 5.3 mmol/L (3.5-5.1); SGPT/ALT 41 U/L (12-78)
[2018-01-09 17:12] LABS: ALK PHOS 184 U/L (45-117); BILIRUBIN,TOTAL 0.4 mg/dL (0.2-1.0); CREATININE 1.2 mg/dL (0.7-1.3); SGOT/AST 30 U/L (15-37); TOT PROT 7.7 g/dl (6.4-8.2)
[2018-01-09 17:13] LABS: MAGNESIUM 1.4 mg/dL (1.8-2.4)
[2018-01-09 17:15] LABS: GLUCOSE,RANDOM 328 mg/dL (74-106); SODIUM 123 mmol/L (136-145)
[2018-01-09 17:18] LABS: N-TERMINAL BNP 18806.47 pg/ml (5-450)
[2018-01-09] MEDS ORDERED: MAGNESIUM SULF 50% (8.12 MEQ/2 ML-1 GM VIAL) IVPB ONE (19:44)
[2018-01-09] MEDS ORDERED: MAGNESIUM SULFATE IN WATER 2 GM/50 ML IVPB IVPB ONE (20:00)
--- NOTE | 2018-01-09 20:13 | HP ---
CHIEF COMPLAINT: SOB, s/p Fall PCP: Dr. Rowan HISTORY OF PRESENT ILLNESS: This is a 82 y/o man with PMH of CHF (EF 34), TX, stents x4, PM, IDDM, Afib (on Coumadin), HTN, HLD, Hypothyroid, Diverticulitis (with colectomy), Aneurysm 4.2cm. Who presents to the ED with SOB, s/p fall. Patient reports having progressively SOB, with LE edema. Patient denies LOC or head trauma. 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 Family History: Non-contributory Allergies No Known Drug Allergies Allergy (Verified 01/09/18 14:48) HOME MEDICATIONS: Home Medications Medication Instructions Recorded Duloxetine HCl [Cymbalta -] 60 mg PO DAILY 09/25/17 Folic Acid 1 mg PO DAILY 09/25/17 Levothyroxine [Synthroid -] 175 mcg PO DAILY 09/25/17 Spironolactone 25 mg PO DAILY 09/25/17 Albuterol 2.5/Ipratropium 0.5 1 amp NEB RQID amp 12/14/17 [Duoneb -] Atorvastatin Ca [Lipitor] 80 mg PO HS tablet 12/14/17 Montelukast Na [Singulair -] 10 mg PO HS tablet 12/14/17 Tamsulosin HCl [Flomax -] 0.4 mg PO DAILY@0830 cap.er.24h 12/14/17 Alprazolam 0.25 mg PO BID 01/04/18 Carvedilol [Coreg -] 3.125 mg PO BID 01/04/18 Docusate Sodium 100 mg PO DAILY 01/04/18 Furosemide [Lasix -] 40 mg PO BID 01/04/18 Gabapentin 100 mg PO BID 01/04/18 Potassium Chloride [K-Dur -] 20 meq PO DAILY 01/04/18 Warfarin Sodium [Coumadin] 4 mg PO DAILY 01/04/18 REVIEW OF SYSTEMS CONSTITUTIONAL: generalized weakness, malaise Absent: fever, chills, diaphoresis, loss of appetite, weight change HEENT: Absent: rhinorrhea, nasal congestion, throat pain, throat swelling, difficulty swallowing, mouth swelling, ear pain, eye pain, visual changes CARDIOVASCULAR: peripheral edema Absent: chest pain, syncope, palpitations, irregular heart rate, lightheadedness RESPIRATORY: cough, shortness of breath, dyspnea with exertion, orthopnea, Absent: wheezing, stridor, hemoptysis GASTROINTESTINAL: Absent: abdominal pain, abdominal distension, nausea, vomiting, diarrhea, constipation, melena, hematochezia GENITOURINARY: Absent: dysuria, frequency, urgency, hesitancy, hematuria, flank pain, genital pain MUSCULOSKELETAL: Absent: myalgia, arthralgia, joint swelling, back pain, neck pain SKIN: Absent: rash, itching, pallor HEMATOLOGIC/IMMUNOLOGIC: Absent: easy bleeding, easy bruising, lymphadenopathy, frequent infections ENDOCRINE: Absent: unexplained weight gain, unexplained weight loss, heat intolerance, cold intolerance NEUROLOGIC: unsteady gait Absent: headache, focal weakness or paresthesias, dizziness, seizure, mental status changes, bladder or bowel incontinence PSYCHIATRIC: Absent: anxiety, depression, suicidal or homicidal ideation, hallucinations. PHYSICAL EXAMINATION Vital Signs - 24 hr 01/09/18 01/09/18 01/09/18 14:45 18:11 19:43 Temperature 98.2 F Pulse Rate 88 Pulse Rate [ 89 Radial] Respiratory 16 20 Rate Blood Pressure 101/70 Blood Pressure 122/80 [Right Arm] O2 Sat by Pulse 100 98 100 Oximetry (%) GENERAL: Awake, alert, and fully oriented, in no acute distress. HEAD: Normal with no signs of trauma. EYES: Pupils equal, round and reactive to light, extraocular movements intact, sclera anicteric, conjunctiva clear. No lid lag. EARS, NOSE, THROAT: Ears normal, nares patent, oropharynx clear without exudates. Dry mucous membranes. NECK: Normal range of motion, supple without lymphadenopathy, JVD, or masses. LUNGS: Coarse scattered diffuse crackles throughout. No wheezes, No accessory muscle use. HEART: Irregular rate and rhythm, normal S1 and S2 systolic grade 1 murmur. No rub or gallop. ABDOMEN: Soft, obese, nontender, not distended, normoactive bowel sounds, no guarding, no rebound, no masses. No hepatomegaly or splenomegaly. MUSCULOSKELETAL: Normal range of motion at all joints. No bony deformities or tenderness. No CVA tenderness. UPPER EXTREMITIES: 2+ pulses, warm, well-perfused. No cyanosis. No clubbing. No peripheral edema. LOWER EXTREMITIES: 2+ pulses, warm, well-perfused. No calf tenderness. +2 pitting B/L peripheral edema. NEUROLOGICAL: Cranial nerves II-XII intact. Normal speech. Gait not observed. PSYCHIATRIC: Cooperative. Good eye contact. Appropriate mood and affect. SKIN: Warm, dry, normal turgor, no rashes or lesions noted, normal capillary refill. Laboratory Results - last 24 hr 01/09/18 01/09/18 01/09/18 15:50 15:50 15:50 WBC 7.9 RBC 3.86 L Hgb 11.2 L Hct 32.6 L MCV 84.6 MCH 29.0 MCHC 34.2 RDW 17.1 H Plt Count 259 MPV 8.9 Neutrophils % 77.0 Lymphocytes % 9.6 D Monocytes % 11.6 H Eosinophils % 1.1 Basophils % 0.7 PT with INR 24.50 H INR 2.17 H D Sodium 123 L* Potassium 5.3 H Chloride 88 L Carbon Dioxide 27 Anion Gap 8 BUN 39 H D Creatinine 1.2 Creat Clearance w eGFR 58.11 Random Glucose 328 H* Calcium 8.8 Magnesium Total Bilirubin 0.4 AST 30 D ALT 41 D Alkaline Phosphatase 184 H D Creatine Kinase 52 Troponin I 0.09 H D B-Natriuretic Peptide Total Protein 7.7 Albumin 3.3 L 01/09/18 15:50 WBC RBC Hgb Hct MCV MCH MCHC RDW Plt Count MPV Neutrophils % Lymphocytes % Monocytes % Eosinophils % Basophils % PT with INR INR Sodium Potassium Chloride Carbon Dioxide Anion Gap BUN Creatinine Creat Clearance w eGFR Random Glucose Calcium Magnesium 1.4 L D Total Bilirubin AST ALT Alkaline Phosphatase Creatine Kinase Troponin I B-Natriuretic Peptide 26548.47 H Total Protein Albumin ASSESSMENT/PLAN: This is a 82 y/o man who presents to the ED with progressive SOB, s/p fall. Admitted for Acute on Chronic Systolic Heart Failure, Acute Hyponatremia, Uncontrolled DM. Plan: 1. Cardiology Acute on Chronic Systolic Heart Failure Hyponatremia HTN HLD TX hx Afib PM3. - [id number] 5 - EKG- atrial ventricular paced rhythm, no change compared to prior study - Continue home meds - Daily weights - Strict INOs - Appreciate Cardiology Consult - Echo - Monitor BMP - Monitor vitals 2. Endocrinology Uncontrolled DM - Likely secondary to non-compliance - BGMs - ISS - Appreciate Endocrinology consult - HgbA1c in am - Monitor renal function 3. GI Diverticulitis hx - stable - Continue to monitor and treat with interventions accordingly - Repeat CBC, BMP in am - Consider US or CT if complaints of abdominal pain given hx 4. FEN - Fluid Restriction - Replete lytes prn - NPO 5. DVT ppx - OOB - SCDs - Continue Coumadin Dispo: Patient Requires Inpatient Care Problem List - Problem (1) Acute on chronic systolic (congestive) heart failure Code(s): I50.23 - ACUTE ON CHRONIC SYSTOLIC (CONGESTIVE) HEART FAILURE (2) Fall Code(s): W19.XXXA - UNSPECIFIED FALL, INITIAL ENCOUNTER Qualifiers: Encounter type: initial encounter Qualified Code(s): W19.XXXA - Unspecified fall, initial encounter (3) Hyponatremia Code(s): E87.1 - HYPO-OSMOLALITY AND HYPONATREMIA (4) ASHD (arteriosclerotic heart disease) Code(s): I25.10 - ATHSCL HEART DISEASE OF [place] CORONARY ARTERY W/O ANG PCTRS (5) Atrial fibrillation Code(s): I48.91 - UNSPECIFIED ATRIAL FIBRILLATION Qualifiers: Atrial fibrillation type: paroxysmal Qualified Code(s): I48.0 - Paroxysmal atrial fibrillation (6) CAD (coronary artery disease) Code(s): I25.10 - ATHSCL HEART DISEASE OF [place] CORONARY ARTERY W/O ANG PCTRS Qualifiers: Coronary Disease-Associated Artery/Lesion type: unspecified vessel or lesion type [place] vs. transplanted heart: [place] heart Associated angina: angina presence unspecified Qualified Code(s): I25.10 - Atherosclerotic heart disease of [place] coronary artery without angina pectoris (7) Diabetes mellitus, insulin dependent (IDDM), uncontrolled Code(s): E10.65 - TYPE 1 DIABETES MELLITUS WITH HYPERGLYCEMIA Qualifiers: (8) Hypothyroid Code(s): E03.9 - HYPOTHYROIDISM, UNSPECIFIED Visit type - Emergency Visit Emergency Visit: Yes ED Registration Date: 01/09/18 Care time: The patient presented to the Emergency Department on the above date and was hospitalized for further evaluation of their emergent condition. - New Patient This patient is new to me today: Yes Date on this admission: 01/09/18 - Critical Care Critical Care patient: No Hospitalist Screening - Colonoscopy Questionnaire Colonoscopy Questionnaire: Colonoscopy Questionnaire - Patient: 50 - 75 years old and never had a screening colonoscopy: Unknown History of colon or rectal polyps, or CA: Unknown History of IBD, Crohn's disease or UC: Unknown History of abdominal radiation therapy as a child: Unknown - Relative: 1 with colon or rectal CA, or polyps at age 60 or younger: Unknown Colon or rectal CA diagnosed at age 45 or younger: Unknown Multiple relatives with colon or rectal CA: Unknown - Outcome: Screening Result: Negative Screen
[2018-01-09 21:30] VITALS: BMI 36.6
[2018-01-09 22:43] LABS: ANION GAP 6 (8-16); BLOOD UREA NITROGEN 37 mg/dL (7-18); CALCIUM 8.3 mg/dL (8.5-10.1); CHLORIDE 90 mmol/L (98-107); CO2 29 mmol/L (21-32); CREATININE 1.1 mg/dL (0.7-1.3); GLUCOSE,RANDOM 248 mg/dL (74-106); POTASSIUM 4.6 mmol/L (3.5-5.1); SODIUM 125 mmol/L (136-145)
[2018-01-10 10:17] LABS: EOS % 2.3 % (0-4.5); HEMATOCRIT 31.5 % (35.4-49); HEMOGLOBIN 10.5 GM/dL (11.7-16.9); LYMPH % 10.8 % (8-40); MCH 28.3 pg (25.7-33.7); MCHC 33.5 g/dl (32.0-35.9); MEAN CELL VOLUME 84.5 fl (80-96); MEAN PLT VOLUME 8.8 fl (7.5-11.1); MONO % 9.9 % (3.8-10.2); PLATELET COUNT 216 K/MM3 (134-434); RBC 3.72 M/mm3 (4.00-5.60); RDW 17.6 % (11.9-15.9); WHITE BLOOD COUNT 8.4 K/mm3 (4.0-10.0)
[2018-01-10] MEDS ORDERED: FUROSEMIDE 40 MG TABLET (FP) PO SCH (10:30)
[2018-01-10] MEDS ORDERED: LEVOTHYROXINE NA 175 MCG TABLET PO SCH (10:30)
[2018-01-10] MEDS ORDERED: HEPARIN NA (PORCINE) 5,000 UNITS/ML 1ML VIAL SQ SCH (10:30)
[2018-01-10] MEDS ORDERED: DULoxetine HCL 60 MG CAPSULE.DR PO SCH (10:30)
--- NOTE | 2018-01-10 10:33 | PN ---
Progress Note, Physician Chief Complaint: SOB Fall Hyponatremia History of Present Illness: NAD in bed, complains of heaviness in his chest SOB on exertion Nasal o2 fall after he lost his balance - Current Medication List Current Medications: Active Medications Albuterol/Ipratropium (Duoneb -) 1 amp NEB RQID MANAN Alprazolam (Xanax -) 0.25 mg PO BID PRN PRN Reason: ANXIETY Atorvastatin Calcium (Lipitor -) 80 mg PO HS MANAN Carvedilol (Coreg -) 3.125 mg PO BID MANAN Docusate Sodium (Colace -) 100 mg PO DAILY MANAN Duloxetine HCl (Cymbalta -) 60 mg PO DAILY MANAN Folic Acid (Folic Acid -) 1 mg PO DAILY MANAN Furosemide (Lasix -) 40 mg PO BID MANAN Gabapentin (Neurontin -) 100 mg PO BID MANAN Insulin Aspart (Novolog Vial Sliding Scale -) 1 vial SQ ACHS MANAN PRN Reason: Protocol Levothyroxine Sodium (Synthroid -) 175 mcg PO DAILY [facility] Magnesium Oxide (Mag-Ox -) 400 mg PO BID MANAN Montelukast Sodium (Singulair -) 10 mg PO HS [facility] Non-Formulary Medication (Warfarin Sodium [Coumadin]) 4 mg PO DAILY [facility] Potassium Chloride (K-Dur -) 20 meq PO DAILY MANAN Spironolactone (Aldactone -) 25 mg PO DAILY MANAN Tamsulosin HCl (Flomax -) 0.4 mg PO DAILY@0830 [facility] - Objective Vital Signs: Vital Signs Temperature 98.5 F 01/10/18 06:07 Pulse Rate 92 H 01/10/18 06:07 Respiratory Rate 20 01/10/18 06:07 Blood Pressure 135/75 01/10/18 06:07 O2 Sat by Pulse Oximetry (%) 99 01/10/18 06:00 Constitutional: Yes: Well Nourished, No Distress, Calm Cardiovascular: Yes: Regular Rate and Rhythm Respiratory: Yes: Regular, Rales (BLLL) Gastrointestinal: Yes: Normal Bowel Sounds, Soft, Abdomen, Obese Musculoskeletal: Yes: Muscle Weakness Extremities: Yes: WNL Edema: No Peripheral Pulses WNL: Yes Neurological: Yes: Alert, Oriented Psychiatric: Yes: Alert, Oriented Labs: CBC, BMP 01/10/18 09:05 INR, PTT INR 2.17 (0.82-1.09) H D 01/09/18 15:50 Problem List - Problems (1) Acute on chronic systolic (congestive) heart failure Assessment/Plan: -cardiology -diuretics -I&O's -low sodium diet -RD consult Code(s): I50.23 - ACUTE ON CHRONIC SYSTOLIC (CONGESTIVE) HEART FAILURE (2) Fall Assessment/Plan: -Physical therapy Code(s): W19.XXXA - UNSPECIFIED FALL, INITIAL ENCOUNTER Qualifiers: Encounter type: initial encounter Qualified Code(s): W19.XXXA - Unspecified fall, initial encounter (3) Atrial fibrillation Assessment/Plan: chronic -on Warfarin Code(s): I48.91 - UNSPECIFIED ATRIAL FIBRILLATION Qualifiers: Atrial fibrillation type: paroxysmal Qualified Code(s): I48.0 - Paroxysmal atrial fibrillation (4) Atypical chest pain Assessment/Plan: -Cardiac workup negative -Cardiology consult appreciated - Code(s): R07.89 - OTHER CHEST PAIN (5) Diabetes mellitus, insulin dependent (IDDM), uncontrolled Assessment/Plan: -BGM -Diabetic diet -insulin -endocrinology consult -RD consult -enforce dietary compliance Code(s): E10.65 - TYPE 1 DIABETES MELLITUS WITH HYPERGLYCEMIA Qualifiers: Assessment/Plan see problem list
[2018-01-10 10:36] LABS: ANION GAP 6 (8-16); BLOOD UREA NITROGEN 33 mg/dL (7-18); CALCIUM 8.6 mg/dL (8.5-10.1); CHLORIDE 92 mmol/L (98-107); CO2 29 mmol/L (21-32); GLUCOSE,RANDOM 207 mg/dL (74-106); POTASSIUM 4.3 mmol/L (3.5-5.1); SODIUM 127 mmol/L (136-145)
--- NOTE | 2018-01-10 10:41 | CON.PULM ---
Consult Consult Specialty:: PULMONARY Referred by:: RENAY Smith Reason for Consultation:: shortness of breath - History of Present Illness Chief Complaint: shortness of breath History of Present Illness: 82yo male with h/o HTN, DM, hyperlipidemia, hypothyroidism, CAD s/p stents, LV systolic dysfunction, atrial fibrillation s/p PPM who was admitted with worsening shortness of breath. He does report some intermittent anterior chest discomfort. Occasional nonproductive cough without wheezing. No fevers, chills or sweats. Also reports increasing leg swelling and orthopnea. 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 No: Alzheimer's Cardio/Vascular: Yes: AFIB, Aneurysm (mild ascending aortic aneurysm (4.2 cm) per 01/[address]), CAD (stents x2 in 2010; thrombectomy & PCI of proximal and mid LAD with Promus Premier stents and PTCA of D1 on 12/18/15 at [facility] for acute/subacute anteroseptal CT), CHF, HTN, Hyperlipdemia, Other (ischemic cardiomyopathy (LVEF 34% per 02/16/16 nuclear study)) Gastrointestinal: Yes: Constipation, Diverticulosis Musculoskeletal: Yes: Other (rib fx's right) Endocrine: Yes: Diabetes Mellitus, Hypothyroidism - Past Surgical History Past Surgical History: Yes: Arthrosocopy (Right knee arthroscopy w/ partial medial and lateral meniscectomy 09/01/15), Colectomy - Alcohol/Substance Use Hx Alcohol Use: No History of Substance Use: reports: None - Smoking History Smoking history: Former smoker Have you smoked in the past 12 months: No Aproximately how many cigarettes per day: 0 If you are a former smoker, when did you quit?: 40 years ago - Social History Usual Living Arrangement: Long-Term (since last d/c) 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 History of Recent Travel: No Home Medications - Allergies Allergies/Adverse Reactions: Allergies Allergy/AdvReac Type Severity Reaction Status Date / Time No Known Drug Allergies Allergy Verified 01/09/18 14:48 - Home Medications Home Medications: Ambulatory Orders Duloxetine HCl [Cymbalta -] 60 mg PO DAILY 09/25/17 Folic Acid 1 mg PO DAILY 09/25/17 Levothyroxine [Synthroid -] 175 mcg PO DAILY 09/25/17 Spironolactone 25 mg PO DAILY 09/25/17 Albuterol 2.5/Ipratropium 0.5 [Duoneb -] 1 amp NEB RQID amp 12/14/17 Atorvastatin Ca [Lipitor] 80 mg PO HS tablet 12/14/17 Montelukast Na [Singulair -] 10 mg PO HS tablet 12/14/17 Tamsulosin HCl [Flomax -] 0.4 mg PO DAILY@0830 cap.er.24h 12/14/17 Alprazolam 0.25 mg PO BID 01/04/18 Carvedilol [Coreg -] 3.125 mg PO BID 01/04/18 Docusate Sodium 100 mg PO DAILY 01/04/18 Furosemide [Lasix -] 40 mg PO BID 01/04/18 Gabapentin 100 mg PO BID 01/04/18 Potassium Chloride [K-Dur -] 20 meq PO DAILY 01/04/18 Warfarin Sodium [Coumadin] 4 mg PO DAILY 01/04/18 Review of Systems - Review of Systems Constitutional: denies: Chills, Fever Eyes: denies: Recent Change in Vision HENT: denies: Nasal Congestion, Throat Pain Neck: denies: Stiffness, Tenderness Cardiovascular: reports: Chest Pain, Edema, Shortness of Breath. denies: Palpitations Respiratory: reports: Cough, SOB, SOB on Exertion. denies: Hemoptysis, Wheezing Gastrointestinal: denies: Abdominal Pain, Nausea, Vomiting Genitourinary: denies: Dysuria, Hematuria Neurological: denies: Dizziness, Headache Physical Exam Vital Sings: Vital Signs Temperature 98.5 F 01/10/18 06:07 Pulse Rate 92 H 01/10/18 06:07 Respiratory Rate 20 01/10/18 06:07 Blood Pressure 135/75 01/10/18 06:07 O2 Sat by Pulse Oximetry (%) 99 01/10/18 06:00 Constitutional: Yes: Calm Eyes: Yes: Conjunctiva Clear, EOM Intact HENT: Yes: Atraumatic, Normocephalic Neck: Yes: Supple, Trachea Midline Cardiovascular: Yes: Pulse Irregular Respiratory: Yes: Diminished (decreased breath sounds at the bases) ...Clubbing: No Gastrointestinal: Yes: Normal Bowel Sounds, Soft. No: Tenderness Edema: Yes (trace) Neurological: Yes: Alert, Oriented Labs: CBC, BMP 01/10/18 09:05 Imaging - Results Chest X-ray: Report Reviewed, Image Reviewed (pulmonary vascular congestion) Problem List - Problems (1) Acute on chronic systolic (congestive) heart failure Code(s): I50.23 - ACUTE ON CHRONIC SYSTOLIC (CONGESTIVE) HEART FAILURE (2) Atrial fibrillation Code(s): I48.91 - UNSPECIFIED ATRIAL FIBRILLATION Qualifiers: Atrial fibrillation type: paroxysmal Qualified Code(s): I48.0 - Paroxysmal atrial fibrillation (3) CAD (coronary artery disease) Code(s): I25.10 - ATHSCL HEART DISEASE OF [place] CORONARY ARTERY W/O ANG PCTRS Qualifiers: Coronary Disease-Associated Artery/Lesion type: unspecified vessel or lesion type [place] vs. transplanted heart: [place] heart Associated angina: angina presence unspecified Qualified Code(s): I25.10 - Atherosclerotic heart disease of [place] coronary artery without angina pectoris (4) Diabetes Code(s): E11.9 - TYPE 2 DIABETES MELLITUS WITHOUT COMPLICATIONS Qualifiers: Diabetes mellitus type: type 2 Diabetes mellitus complication detail: with other neurological complication Assessment/Plan Acute on Chronic Systolic Heart Failure Hyponatremia Atrial Fibrillation CAD HTN DM Hyperlipidemia Hypothyroidism - IV lasix - monitor urine output, creatinine - daily weights, I/Os - echocardiogram if none done recently - urine lytes, osms, serum osms - monitor lytes - repeat CXR in AM - O2 to keep Spo2 >90% - rate control - continue anticoagulation Thank you for this consult Eliezer Gallagher MD
[2018-01-10] MEDS ORDERED: DULoxetine HCL 30 MG CAPSULE.DR (FP) PO ONE (10:54)
[2018-01-10] MEDS: MAGNESIUM OXIDE 400 MG TABLET (FP) PO SCH ×2 (10:57→21:15)
[2018-01-10] MEDS: FOLIC ACID 1 MG TABLET (FP) PO SCH (10:57)
[2018-01-10] MEDS: DOCUSATE SODIUM 100 MG CAPSULE (FP) PO SCH (10:57)
[2018-01-10] MEDS: GABAPENTIN 100 MG CAPSULE (FP) PO SCH ×2 (10:57→21:24)
[2018-01-10] MEDS: CARVEDILOL 3.125 MG TABLET (FP) PO SCH ×2 (10:57→21:15)
[2018-01-10] MEDS: FUROSEMIDE 40 MG/4 ML INJECTABLE VIAL IVPUSH SCH ×2 (10:58→14:12)
[2018-01-10] MEDS: POTASSIUM CHLORIDE TABS 20 MEQ TABLET.ER (FP) PO SCH (11:00)
[2018-01-10] MEDS: SPIRONOLACTONE 25 MG TABLET (FP) PO SCH (11:00)
[2018-01-10] MEDS: ALBUTEROL SO4 2.5/IPRATROPIUM 0.5 INH SOL 3 ML VIAL.NEB. NEB SCH ×3 (11:15→20:46)
--- NOTE | 2018-01-10 11:24 | EKG ---
Test Reason : Blood Pressure : / mmHG Vent. Rate : 094 BPM Atrial Rate : 094 BPM P-R Int : 160 ms QRS Dur : 178 ms QT Int : 456 ms P-R-T Axes : 008 -79 091 degrees QTc Int : 570 ms Atrial-sensed ventricular-paced rhythm ABNORMAL ECG WHEN COMPARED WITH ECG OF 04-JAN-2018 12:06, VENT. RATE HAS DECREASED BY 5 BPM Confirmed by REENA LEDESMA, SHAHZAD ([id number]) on 01/10/2018 11:23:42 AM Referred By: Confirmed By:SHAHZAD VALLES MD
[2018-01-10] MEDS ORDERED: INSULIN (NOVOLOG) ASPART 100 UNITS/ML 10ML VIAL ONE (11:44)
[2018-01-10] MEDS: ALPRAZolam 0.25 MG TABLET PO PRN (11:45)
[2018-01-10] MEDS: INSULIN SLIDING SCALE (NOVOLOG) 1 VIAL SQ SCH ×3 (11:47→21:28)
[2018-01-10] MEDS ORDERED: LEVOTHYROXINE NA 75 MCG TABLET (FP) ONE (11:56)
[2018-01-10] MEDS ORDERED: LEVOTHYROXINE NA 100 MCG TABLET (FP) ONE (11:56)
[2018-01-10] MEDS: LEVOTHYROXINE 75 MCG, LEVOTHYROXINE 100 MCG PO SCH (11:58)
--- NOTE | 2018-01-10 12:28 | CON.CARD ---
Consult Consult Specialty:: cardiology Referred by:: Camilo Reason for Consultation:: Shortness of breath - History of Present Illness Chief Complaint: Shortness of breath History of Present Illness: The patient is an 82-year-old man, we've a history of diabetes, hypertension, hyperlipidemia, paroxysmal atrial fibrillation on Coumadin, coronary artery disease and prior PCI's, status post myocardial infarction, severe left ventricular systolic dysfunction, status post AICD implantation now presenting with recurrent shortness of breath, acute on chronic systolic heart failure. The patient is breathing better this morning. He looks quite comfortable. Denies chest pains. 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 No: Alzheimer's Cardio/Vascular: Yes: AFIB, Aneurysm (mild ascending aortic aneurysm (4.2 cm) per 01/[address]), CAD (stents x2 in 2010; thrombectomy & PCI of proximal and mid LAD with Promus Premier stents and PTCA of D1 on 12/18/15 at [facility] for acute/subacute anteroseptal [place]), CHF, HTN, Hyperlipdemia, Other (ischemic cardiomyopathy (LVEF 34% per 02/16/16 nuclear study)) Gastrointestinal: Yes: Constipation, Diverticulosis Musculoskeletal: Yes: Other (rib fx's right) Endocrine: Yes: Diabetes Mellitus, Hypothyroidism - Past Surgical History Past Surgical History: Yes: Arthrosocopy (Right knee arthroscopy w/ partial medial and lateral meniscectomy 09/01/15), Colectomy - Alcohol/Substance Use Hx Alcohol Use: No History of Substance Use: reports: None - Smoking History Smoking history: Former smoker Have you smoked in the past 12 months: No Aproximately how many cigarettes per day: 0 If you are a former smoker, when did you quit?: 40 years ago - Social History Usual Living Arrangement: Intermediate (since last d/c) 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 History of Recent Travel: No Home Medications - Allergies Allergies/Adverse Reactions: Allergies Allergy/AdvReac Type Severity Reaction Status Date / Time No Known Drug Allergies Allergy Verified 01/09/18 14:48 - Home Medications Home Medications: Ambulatory Orders Duloxetine HCl [Cymbalta -] 60 mg PO DAILY 09/25/17 Folic Acid 1 mg PO DAILY 09/25/17 Levothyroxine [Synthroid -] 175 mcg PO DAILY 09/25/17 Spironolactone 25 mg PO DAILY 09/25/17 Albuterol 2.5/Ipratropium 0.5 [Duoneb -] 1 amp NEB RQID amp 12/14/17 Atorvastatin Ca [Lipitor] 80 mg PO HS tablet 12/14/17 Montelukast Na [Singulair -] 10 mg PO HS tablet 12/14/17 Tamsulosin HCl [Flomax -] 0.4 mg PO DAILY@0830 cap.er.24h 12/14/17 Alprazolam 0.25 mg PO BID 01/04/18 Carvedilol [Coreg -] 3.125 mg PO BID 01/04/18 Docusate Sodium 100 mg PO DAILY 01/04/18 Furosemide [Lasix -] 40 mg PO BID 01/04/18 Gabapentin 100 mg PO BID 01/04/18 Potassium Chloride [K-Dur -] 20 meq PO DAILY 01/04/18 Warfarin Sodium [Coumadin] 4 mg PO DAILY 01/04/18 Review of Systems - Review of Systems Constitutional: reports: Weakness Eyes: reports: No Symptoms HENT: reports: No Symptoms Neck: reports: No Symptoms Cardiovascular: reports: Shortness of Breath Respiratory: reports: SOB Gastrointestinal: reports: No Symptoms Genitourinary: reports: No Symptoms Breasts: reports: No Symptoms Reported Musculoskeletal: reports: No Symptoms Integumentary: reports: No Symptoms Neurological: reports: No Symptoms Endocrine: reports: No Symptoms Hematology/Lymphatic: reports: No Symptoms Psychiatric: reports: No Symptoms Vital Signs: Vital Signs Temperature 98.5 F 01/10/18 09:00 Pulse Rate 90 01/10/18 09:00 Respiratory Rate 20 01/10/18 10:00 Blood Pressure 117/90 01/10/18 09:00 O2 Sat by Pulse Oximetry (%) 99 01/10/18 10:00 Constitutional: Yes: Well Nourished, No Distress, Calm Eyes: Yes: WNL, Conjunctiva Clear, EOM Intact HENT: Yes: WNL, Atraumatic, Normocephalic Neck: Yes: WNL, Supple, Trachea Midline Respiratory: Yes: On Nasal O2, Rales, SOB Gastrointestinal: Yes: WNL, Normal Bowel Sounds, Soft Renal/: Yes: WNL Cardiovascular: Yes: WNL, Regular Rate and Rhythm JVD: No Carotid Bruit: No PMI: Displaced Heart Sounds: Yes: S1, S2 Murmur: Yes: Systolic Murmur, Grade 2 Musculoskeletal: Yes: WNL, Back Pain Extremities: Yes: WNL Edema: No Peripheral Pulses: 1+ Left Carotid, 1+ Right Carotid, 1+ Left Femoral, 1+ Right Femoral, 1+ Left Popliteal, 1+ Right Popliteal, 1+ Left Doralis Pedis, 1+ Right Dorsalis Pedis Integumentary: Yes: WNL Neurological: Yes: WNL, Alert, Oriented ...Motor Strength: WNL Psychiatric: Yes: WNL - Other Data Labs, Other Data: CBC, BMP 01/10/18 09:05 01/10/18 09:05 INR, PTT INR 2.17 (0.82-1.09) H D 01/09/18 15:50 Troponin, BNP 01/09/18 01/09/18 01/09/18 15:50 15:50 21:45 Troponin I 0.09 H D 0.09 H B-Natriuretic Peptide 10797.47 H Troponin, BNP 01/09/18 01/09/18 01/09/18 15:50 15:50 21:45 Troponin I 0.09 H D 0.09 H B-Natriuretic Peptide 85464.47 H Assessment/Plan 82-year-old man with a known ischemic cardiomyopathy and severe systolic dysfunction, status post ICD implantation, now presenting with shortness of breath. Acute on chronic systolic heart failure. There is no evidence of ischemia nor acute coronary syndrome. Please continue intravenous Lasix and current regimen. Strict salt and fluid restrictions. Please remove all fluids from the bedside, including ice cubes. There is no need for further cardiac testing nor workup at this point. There is no need to repeat the echocardiogram. We'll follow.
[2018-01-10 12:34] LABS: INR 2.03 (0.82-1.09); PROTHROMBIN TIME (PATIENT) 22.9 SEC (9.98-11.88)
--- NOTE | 2018-01-10 14:26 | CONSULT ---
Consult Consult Specialty:: Nephrology ( Luke/ Alphonso) Reason for Consultation:: Acute Hyponatremia - History of Present Illness Chief Complaint: 82 year old male presented with shortness of breath and history of fall outside the house and they called 911. He said his legs got weak and he landed on his right knee. He does have significant history of CHF with an EF of only 34, has Atrial Fibrillation on Coumadin, he had an SD, h/o PTCI with 4 stents and a thrombectomy. Has a pacemaker, h/o hypertension, hyperlipidemia, IDDM, hypothyroidism, diverticulitis with a colectomy. The reasom for the consult is Acute hyponatremia. 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 for acute/subacute anteroseptal [place]), CHF, HTN, Hyperlipdemia, Other (ischemic cardiomyopathy (LVEF 34% per 02/16/16 nuclear study)) Gastrointestinal: Yes: Constipation, Diverticulosis Musculoskeletal: Yes: Other (rib fx's right) Endocrine: Yes: Diabetes Mellitus, Hypothyroidism - Past Surgical History Past Surgical History: Yes: Arthrosocopy (Right knee arthroscopy w/ partial medial and lateral meniscectomy 09/01/15), Colectomy - Alcohol/Substance Use Hx Alcohol Use: No History of Substance Use: reports: None - Smoking History Smoking history: Former smoker Have you smoked in the past 12 months: No Aproximately how many cigarettes per day: 0 If you are a former smoker, when did you quit?: 40 years ago - Social History Usual Living Arrangement: Residential (since last d/c) 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 History of Recent Travel: No Home Medications - Allergies Allergies/Adverse Reactions: Allergies Allergy/AdvReac Type Severity Reaction Status Date / Time No Known Drug Allergies Allergy Verified 01/09/18 14:48 - Home Medications Home Medications: Ambulatory Orders Duloxetine HCl [Cymbalta -] 60 mg PO DAILY 09/25/17 Folic Acid 1 mg PO DAILY 09/25/17 Levothyroxine [Synthroid -] 175 mcg PO DAILY 09/25/17 Spironolactone 25 mg PO DAILY 09/25/17 Albuterol 2.5/Ipratropium 0.5 [Duoneb -] 1 amp NEB RQID amp 12/14/17 Atorvastatin Ca [Lipitor] 80 mg PO HS tablet 12/14/17 Montelukast Na [Singulair -] 10 mg PO HS tablet 12/14/17 Tamsulosin HCl [Flomax -] 0.4 mg PO DAILY@0830 cap.er.24h 12/14/17 Alprazolam 0.25 mg PO BID 01/04/18 Carvedilol [Coreg -] 3.125 mg PO BID 01/04/18 Docusate Sodium 100 mg PO DAILY 01/04/18 Furosemide [Lasix -] 40 mg PO BID 01/04/18 Gabapentin 100 mg PO BID 01/04/18 Potassium Chloride [K-Dur -] 20 meq PO DAILY 01/04/18 Warfarin Sodium [Coumadin] 4 mg PO DAILY 01/04/18 Review of Systems - Review of Systems Constitutional: reports: No Symptoms Eyes: reports: No Symptoms Cardiovascular: reports: Shortness of Breath Respiratory: reports: Cough, SOB, SOB on Exertion, Wheezing Musculoskeletal: reports: Back Pain, Extremity Pain, Joint Pain, Muscle Pain, Muscle Weakness Neurological: reports: Change in LOC Psychiatric: reports: Anxiety Physical Exam Vital Signs: Vital Signs Temperature 98.5 F 01/10/18 09:00 Pulse Rate 90 01/10/18 09:00 Respiratory Rate 20 01/10/18 10:00 Blood Pressure 117/90 01/10/18 09:00 O2 Sat by Pulse Oximetry (%) 99 01/10/18 10:00 Constitutional: Yes: Well Nourished, Anxious, Mild Distress Eyes: Yes: Conjunctiva Clear HENT: Yes: Normocephalic Cardiovascular: Yes: Pulse Irregular, S1, S2 Respiratory: Yes: CTA Bilaterally, Diminished, Dullness, Poor Air Entry, Rales, Rhonchi Gastrointestinal: Yes: Normal Bowel Sounds, Soft, Abdomen, Obese Renal/: No: Bladder Distention, CVA Tenderness - Left, CVA Tenderness - Right , Hematuria Extremities: Yes: Delayed Capillary Refill Edema: Yes Edema: LLE: 1+, RLE: 1+ Neurological: Yes: Alert, Oriented, Confusion Labs: CBC, BMP 01/10/18 09:05 01/10/18 09:05 Problem List - Problems (1) Hyponatremia Code(s): E87.1 - HYPO-OSMOLALITY AND HYPONATREMIA (2) ASHD (arteriosclerotic heart disease) Code(s): I25.10 - ATHSCL HEART DISEASE OF [place] CORONARY ARTERY W/O ANG PCTRS (3) Abdominal distension (gaseous) Code(s): R14.0 - ABDOMINAL DISTENSION (GASEOUS) (4) Abdominal pain Code(s): R10.9 - UNSPECIFIED ABDOMINAL PAIN Qualifiers: Abdominal location: right upper quadrant Qualified Code(s): R10.11 - Right upper quadrant pain (5) Anemia Code(s): D64.9 - ANEMIA, UNSPECIFIED (6) Ankle pain Code(s): M25.579 - PAIN IN UNSPECIFIED ANKLE AND JOINTS OF UNSPECIFIED FOOT (7) Anxiety Code(s): F41.9 - ANXIETY DISORDER, UNSPECIFIED (8) Atelectasis Code(s): J98.11 - ATELECTASIS (9) Atrial fibrillation Code(s): I48.91 - UNSPECIFIED ATRIAL FIBRILLATION Qualifiers: Atrial fibrillation type: paroxysmal Qualified Code(s): I48.0 - Paroxysmal atrial fibrillation (10) CAD (coronary artery disease) Code(s): I25.10 - ATHSCL HEART DISEASE OF [place] CORONARY ARTERY W/O ANG PCTRS Qualifiers: Coronary Disease-Associated Artery/Lesion type: unspecified vessel or lesion type [place] vs. transplanted heart: [place] heart Associated angina: angina presence unspecified Qualified Code(s): I25.10 - Atherosclerotic heart disease of [place] coronary artery without angina pectoris (11) Shortness of breath Code(s): R06.02 - SHORTNESS OF BREATH (12) Type 2 diabetes mellitus with diabetic chronic kidney disease Code(s): E11.22 - TYPE 2 DIABETES MELLITUS W DIABETIC CHRONIC KIDNEY DISEASE Assessment/Plan 82y/o male presents to the emergency room h/o fall outside the house. Has multiple medical issues. The patient has a persistent cough, shortness of breath and leg pains. The Serum Sodium is low, and the patient admits to drinking large amounts of fluids. Urine out put acceptable. The Acute hyponatremia could be secondary to Non-osmotic ADH release, and could be 2/2 Pain, Pulmonary process. The patient may also have an intrinsic defect with urinary dilution ( Reset Osmostat) Will continue free water restriction. Basic w/u as ordered. urinary electrolyte profile may be erroneous at this point due to the diuretic effects. Will monitor the Renal functions with you. IV Loop diuretics to continue. It will facilitate free water excretion. Extensive w/u not warranted at this time. Thank you. Will follow with you. Eliza Butler MD
[2018-01-10] MEDS ORDERED: PT OWN MED DRAWER 7, Y5N ONE (17:11)
[2018-01-10] MEDS: WARFARIN NA 2 MG TABLET (UD) PO SCH (17:13)
[2018-01-10] MEDS: ACETAMINOPHEN 325 MG TABLET (FP) PO PRN (20:39)
[2018-01-10] MEDS: MONTELUKAST NA 10 MG TABLET PO SCH (21:15)
[2018-01-10] MEDS: ATORVASTATIN CA 80 MG TABLET (FP) PO SCH (21:29)
[2018-01-10 22:13] LABS: URINE APPEARANCE CLEAR; URINE BILIRUBIN NEGATIVE (<2.0 mg/dL); URINE COLOR LTYELLOW; URINE GLUCOSE (UA) 2+ (NEGATIVE); URINE KETONE NEGATIVE (NEGATIVE); URINE LEUK ESTERASE 2+ (NEGATIVE); URINE NITRITE NEGATIVE (NEGATIVE); URINE PROTEIN NEGATIVE (NEGATIVE); URINE UROBILINOGEN NEGATIVE mg/dL (0.2-1.0)
[2018-01-10 22:16] LABS: EPI CELLS RARE /HPF (FEW); URINE HYALINE CAST 4 /lpf
[2018-01-11] MEDS ORDERED: LEVOTHYROXINE NA 100 MCG TABLET (FP) ONE (06:06)
[2018-01-11] MEDS ORDERED: LEVOTHYROXINE NA 75 MCG TABLET (FP) ONE (06:06)
[2018-01-11] MEDS: ACETAMINOPHEN 325 MG TABLET (FP) PO PRN (06:41)
[2018-01-11] MEDS: LEVOTHYROXINE 75 MCG, LEVOTHYROXINE 100 MCG PO SCH (06:42)
[2018-01-11] MEDS: FUROSEMIDE 40 MG/4 ML INJECTABLE VIAL IVPUSH SCH ×2 (06:42→13:17)
[2018-01-11] MEDS: ALBUTEROL SO4 2.5/IPRATROPIUM 0.5 INH SOL 3 ML VIAL.NEB. NEB SCH ×4 (07:10→20:45)
[2018-01-11 07:56] LABS: BASO % 0.9 % (0-2.0); EOS % 4.1 % (0-4.5); HEMATOCRIT 32.1 % (35.4-49); HEMOGLOBIN 10.7 GM/dL (11.7-16.9); LYMPH % 13.4 % (8-40); MCH 28.4 pg (25.7-33.7); MCHC 33.4 g/dl (32.0-35.9); MEAN PLT VOLUME 9.3 fl (7.5-11.1); MONO % 9.7 % (3.8-10.2); NEUT % 71.9 % (42.8-82.8); PLATELET COUNT 231 K/MM3 (134-434); RBC 3.77 M/mm3 (4.00-5.60); RDW 17.6 % (11.9-15.9); WHITE BLOOD COUNT 7.8 K/mm3 (4.0-10.0)
[2018-01-11 08:01] LABS: INR 2.07 (0.82-1.09); PROTHROMBIN TIME (PATIENT) 23.4 SEC (9.98-11.88)
[2018-01-11 08:30] LABS: ANION GAP 7 (8-16); BILIRUBIN,TOTAL 0.3 mg/dL (0.2-1.0); BLOOD UREA NITROGEN 35 mg/dL (7-18); CALCIUM 8.1 mg/dL (8.5-10.1); CHLORIDE 94 mmol/L (98-107); CO2 27 mmol/L (21-32); CREATININE 1.1 mg/dL (0.7-1.3); GLUCOSE,RANDOM 290 mg/dL (74-106); POTASSIUM 4.9 mmol/L (3.5-5.1); SGOT/AST 21 U/L (15-37); SGPT/ALT 36 U/L (12-78); SODIUM 128 mmol/L (136-145); TOT PROT 7.2 g/dl (6.4-8.2)
[2018-01-11 08:38] LABS: ALK PHOS 173 U/L (45-117)
[2018-01-11] MEDS: TAMSULOSIN HCL 0.4 MG CAP.ER.24H (FP) PO SCH (08:43)
[2018-01-11] MEDS: ALPRAZolam 0.25 MG TABLET PO PRN (08:43)
[2018-01-11] MEDS: SPIRONOLACTONE 25 MG TABLET (FP) PO SCH (09:39)
[2018-01-11] MEDS: GABAPENTIN 100 MG CAPSULE (FP) PO SCH ×2 (09:39→21:44)
[2018-01-11] MEDS: DOCUSATE SODIUM 100 MG CAPSULE (FP) PO SCH (09:39)
[2018-01-11] MEDS: POTASSIUM CHLORIDE TABS 20 MEQ TABLET.ER (FP) PO SCH (09:39)
[2018-01-11] MEDS: FOLIC ACID 1 MG TABLET (FP) PO SCH (09:39)
[2018-01-11] MEDS: CARVEDILOL 3.125 MG TABLET (FP) PO SCH ×2 (09:39→21:40)
[2018-01-11] MEDS: DULoxetine HCL 30 MG CAPSULE.DR (FP) PO SCH (09:39)
[2018-01-11] MEDS: MAGNESIUM OXIDE 400 MG TABLET (FP) PO SCH ×2 (09:39→21:44)
--- NOTE | 2018-01-11 10:26 | PN ---
Progress Note (short form) - Note Progress Note: PULMONARY OOB TO CHAIR COMPLAINING OF ABD DISCOMFORT VSS/AFEB ANICTERIC DIMINISHED BREATH SOUNDS B/L BASES S1S2 IRREG BS+ DISTENDED MILD DIFFUSE TENDERNESS TO PALPATION 1+ EDEMA ANKLES LABS/MEDS/NOTES/IMAGES/PREVIOUS CT ABD NOTED Acute on Chronic Systolic Heart Failure Hyponatremia Abd pain/distention Atrial Fibrillation CAD HTN DM Hyperlipidemia Hypothyroidism - IV lasix - monitor urine output, creatinine - daily weights, I/Os - echocardiogram when clinically stable - urine lytes, osms, serum osms as per renal - monitor lytes - O2 to keep Spo2 >90% - rate control - continue anticoagulation - GHULAM SAGASTUME MD
[2018-01-11] MEDS: INSULIN SLIDING SCALE (NOVOLOG) 1 VIAL SQ SCH ×4 (11:51→22:09)
--- NOTE | 2018-01-11 12:18 | PN ---
Progress Note, Physician Chief Complaint: SOB Fall Hyponatremia History of Present Illness: NAD in bed, Still complaining of right sided chest pain SOB on exertion Nasal o2 fall after he lost his balance - Current Medication List Current Medications: Active Medications Acetaminophen (Tylenol -) 650 mg PO Q4H PRN PRN Reason: PAIN LEVEL 1-5 Last Admin: 01/11/18 06:41 Dose: 650 mg Albuterol/Ipratropium (Duoneb -) 1 amp NEB RQID [facility] Last Admin: 01/11/18 11:04 Dose: 1 amp Alprazolam (Xanax -) 0.25 mg PO BID PRN PRN Reason: ANXIETY Last Admin: 01/11/18 08:43 Dose: 0.25 mg Atorvastatin Calcium (Lipitor -) 80 mg PO [facility] Last Admin: 01/10/18 21:29 Dose: 80 mg Carvedilol (Coreg -) 3.125 mg PO BID [facility] Last Admin: 01/11/18 09:39 Dose: 3.125 mg Docusate Sodium (Colace -) 100 mg PO DAILY [facility] Last Admin: 01/11/18 09:39 Dose: 100 mg Duloxetine HCl (Cymbalta -) 60 mg PO DAILY [facility] Last Admin: 01/11/18 09:39 Dose: 60 mg Folic Acid (Folic Acid -) 1 mg PO DAILY [facility] Last Admin: 01/11/18 09:39 Dose: 1 mg Furosemide (Lasix Injection -) 40 mg IVPUSH BID@0600,1400 [facility] Last Admin: 01/11/18 06:42 Dose: 40 mg Gabapentin (Neurontin -) 100 mg PO BID [facility] Last Admin: 01/11/18 09:39 Dose: 100 mg Insulin Aspart (Novolog Vial Sliding Scale -) 1 vial SQ ACHS [facility] PRN Reason: Protocol Last Admin: 01/11/18 11:51 Dose: 8 units Levothyroxine Sodium 75 mcg/ (Levothyroxine Sodium 100 mcg) 175 mcg PO DAILY@ 0700 [facility] Last Admin: 01/11/18 06:42 Dose: 175 mcg Magnesium Oxide (Mag-Ox -) 400 mg PO BID [facility] Last Admin: 01/11/18 09:39 Dose: 400 mg Montelukast Sodium (Singulair -) 10 mg PO [facility] Last Admin: 01/10/18 21:15 Dose: 10 mg Potassium Chloride (K-Dur -) 20 meq PO DAILY [facility] Last Admin: 01/11/18 09:39 Dose: 20 meq Spironolactone (Aldactone -) 25 mg PO DAILY [facility] Last Admin: 01/11/18 09:39 Dose: 25 mg Tamsulosin HCl (Flomax -) 0.4 mg PO DAILY@0830 [facility] Last Admin: 01/11/18 08:43 Dose: 0.4 mg Warfarin Sodium (Coumadin -) 4 mg PO DAILY@1800 [facility] Last Admin: 01/10/18 17:13 Dose: 4 mg - Objective Vital Signs: Vital Signs Temperature 97.6 F 01/11/18 06:49 Pulse Rate 83 01/11/18 06:49 Respiratory Rate 20 01/11/18 06:49 Blood Pressure 118/78 01/11/18 06:49 O2 Sat by Pulse Oximetry (%) 99 01/11/18 06:00 Constitutional: Yes: Well Nourished, No Distress, Calm Cardiovascular: Yes: Regular Rate and Rhythm Respiratory: Yes: Regular Gastrointestinal: Yes: Normal Bowel Sounds, Soft, Abdomen, Obese, Tenderness ( RLQ) Musculoskeletal: Yes: Muscle Weakness Extremities: Yes: WNL Edema: No Peripheral Pulses WNL: Yes Neurological: Yes: Alert, Oriented Psychiatric: Yes: Alert, Oriented Labs: CBC, BMP 01/11/18 06:30 01/11/18 06:30 INR, PTT INR 2.07 (0.82-1.09) H 01/11/18 06:30 Problem List - Problems (1) Acute on chronic systolic (congestive) heart failure Assessment/Plan: -cardiology -furosemide as needed -CXR reviewed Code(s): I50.23 - ACUTE ON CHRONIC SYSTOLIC (CONGESTIVE) HEART FAILURE (2) Fall Assessment/Plan: -Physical therapy Code(s): W19.XXXA - UNSPECIFIED FALL, INITIAL ENCOUNTER Qualifiers: Encounter type: initial encounter Qualified Code(s): W19.XXXA - Unspecified fall, initial encounter (3) Hyponatremia Code(s): E87.1 - HYPO-OSMOLALITY AND HYPONATREMIA (4) THERON (acute kidney injury) Code(s): N17.9 - ACUTE KIDNEY FAILURE, UNSPECIFIED (5) Atrial fibrillation Assessment/Plan: chronic -on Warfarin -daily INR's Code(s): I48.91 - UNSPECIFIED ATRIAL FIBRILLATION Qualifiers: Atrial fibrillation type: paroxysmal Qualified Code(s): I48.0 - Paroxysmal atrial fibrillation (6) Atypical chest pain Assessment/Plan: -Cardiac workup negative -Cardiology consult appreciated Code(s): R07.89 - OTHER CHEST PAIN (7) Diabetes mellitus, insulin dependent (IDDM), uncontrolled Assessment/Plan: -BGM -Diabetic diet -insulin -endocrinology consult -RD consult -enforce dietary compliance Code(s): E10.65 - TYPE 1 DIABETES MELLITUS WITH HYPERGLYCEMIA Qualifiers: Assessment/Plan see problem list
--- NOTE | 2018-01-11 12:40 | PN ---
Progress Note, Physician Chief Complaint: Comfortable at this moment Sleeping in chair Episode of chest pain last night History of Present Illness: 82-year-old man with a known ischemic cardiomyopathy and severe systolic dysfunction, status post ICD implantation, now presenting with shortness of breath. Acute on chronic systolic heart failure. There is no evidence of ischemia nor acute coronary syndrome. - Current Medication List Current Medications: Active Medications Acetaminophen (Tylenol -) 650 mg PO Q4H PRN PRN Reason: PAIN LEVEL 1-5 Last Admin: 01/11/18 06:41 Dose: 650 mg Albuterol/Ipratropium (Duoneb -) 1 amp NEB RQID [facility] Last Admin: 01/11/18 11:04 Dose: 1 amp Alprazolam (Xanax -) 0.25 mg PO BID PRN PRN Reason: ANXIETY Last Admin: 01/11/18 08:43 Dose: 0.25 mg Atorvastatin Calcium (Lipitor -) 80 mg PO HS [facility] Last Admin: 01/10/18 21:29 Dose: 80 mg Carvedilol (Coreg -) 3.125 mg PO BID [facility] Last Admin: 01/11/18 09:39 Dose: 3.125 mg Docusate Sodium (Colace -) 100 mg PO DAILY [facility] Last Admin: 01/11/18 09:39 Dose: 100 mg Duloxetine HCl (Cymbalta -) 60 mg PO DAILY [facility] Last Admin: 01/11/18 09:39 Dose: 60 mg Folic Acid (Folic Acid -) 1 mg PO DAILY [facility] Last Admin: 01/11/18 09:39 Dose: 1 mg Furosemide (Lasix Injection -) 40 mg IVPUSH BID@0600,1400 [facility] Last Admin: 01/11/18 06:42 Dose: 40 mg Gabapentin (Neurontin -) 100 mg PO BID [facility] Last Admin: 01/11/18 09:39 Dose: 100 mg Insulin Aspart (Novolog Vial Sliding Scale -) 1 vial SQ [facility] PRN Reason: Protocol Insulin Detemir (Levemir Vial) 10 units SQ [facility] Levothyroxine Sodium 75 mcg/ (Levothyroxine Sodium 100 mcg) 175 mcg PO DAILY@ 0700 [facility] Last Admin: 01/11/18 06:42 Dose: 175 mcg Magnesium Oxide (Mag-Ox -) 400 mg PO BID [facility] Last Admin: 01/11/18 09:39 Dose: 400 mg Montelukast Sodium (Singulair -) 10 mg PO HS [facility] Last Admin: 01/10/18 21:15 Dose: 10 mg Potassium Chloride (K-Dur -) 20 meq PO DAILY [facility] Last Admin: 01/11/18 09:39 Dose: 20 meq Spironolactone (Aldactone -) 25 mg PO DAILY [facility] Last Admin: 01/11/18 09:39 Dose: 25 mg Tamsulosin HCl (Flomax -) 0.4 mg PO DAILY@0830 [facility] Last Admin: 01/11/18 08:43 Dose: 0.4 mg Warfarin Sodium (Coumadin -) 4 mg PO DAILY@1800 [facility] Last Admin: 01/10/18 17:13 Dose: 4 mg - Objective Vital Signs: Vital Signs Temperature 97.6 F 01/11/18 06:49 Pulse Rate 83 01/11/18 06:49 Respiratory Rate 20 01/11/18 06:49 Blood Pressure 118/78 01/11/18 06:49 O2 Sat by Pulse Oximetry (%) 99 01/11/18 06:00 Constitutional: Yes: No Distress Neck: Yes: Supple Cardiovascular: Yes: Regular Rate and Rhythm, JVD, S1, S2 Respiratory: Yes: Rales Gastrointestinal: Yes: Soft Edema: LLE: 1+, RLE: 1+ Labs: CBC, BMP 01/11/18 06:30 01/11/18 06:30 INR, PTT INR 2.07 (0.82-1.09) H 01/11/18 06:30 Assessment/Plan 82-year-old man with a known ischemic cardiomyopathy and severe systolic dysfunction, status post ICD implantation, now presenting with shortness of breath. Acute on chronic systolic heart failure. There is no evidence of ischemia nor acute coronary syndrome. 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
[2018-01-11] MEDS ORDERED: ISOSORBIDE MONONITRATE 30 MG TAB.SR.24H (FP) PO SCH (13:45)
[2018-01-11] MEDS: WARFARIN NA 2 MG TABLET (UD) PO SCH (17:29)
[2018-01-11] MEDS ORDERED: INSULIN (NOVOLOG) ASPART 100 UNITS/ML 10ML VIAL ONE (21:14)
[2018-01-11] MEDS: MONTELUKAST NA 10 MG TABLET PO SCH (21:44)
[2018-01-11] MEDS: ATORVASTATIN CA 80 MG TABLET (FP) PO SCH (21:44)
[2018-01-11] MEDS ORDERED: INSULIN (LEVEMIR) 100 UNITS/ML UNITS SQ SCH (22:00)
[2018-01-12] MEDS ORDERED: LEVOTHYROXINE NA 100 MCG TABLET (FP) ONE (04:12)
[2018-01-12] MEDS ORDERED: LEVOTHYROXINE NA 75 MCG TABLET (FP) ONE (04:12)
[2018-01-12] MEDS: FUROSEMIDE 40 MG/4 ML INJECTABLE VIAL IVPUSH SCH ×2 (05:34→13:44)
[2018-01-12] MEDS: LEVOTHYROXINE 75 MCG, LEVOTHYROXINE 100 MCG PO SCH (06:11)
[2018-01-12] MEDS: ALBUTEROL SO4 2.5/IPRATROPIUM 0.5 INH SOL 3 ML VIAL.NEB. NEB SCH ×5 (06:25→20:24)
[2018-01-12] MEDS: ACETAMINOPHEN 325 MG TABLET (FP) PO PRN ×2 (06:26→21:04)
[2018-01-12] MEDS: INSULIN SLIDING SCALE (NOVOLOG) 1 VIAL SQ SCH ×4 (06:27→21:13)
[2018-01-12] MEDS ORDERED: INSULIN (NOVOLOG) ASPART 100 UNITS/ML 10ML VIAL ONE ×3 (06:55→20:50)
[2018-01-12] MEDS ORDERED: INSULIN (LEVEMIR) 100 UNITS/ML UNITS SQ ONE (06:56)
[2018-01-12] MEDS: ALPRAZolam 0.25 MG TABLET PO PRN ×2 (07:05→21:17)
[2018-01-12 08:12] LABS: BASO % 1.3 % (0-2.0); EOS % 6.1 % (0-4.5); HEMATOCRIT 29.5 % (35.4-49); HEMOGLOBIN 9.9 GM/dL (11.7-16.9); LYMPH % 10.4 % (8-40); MCH 28.5 pg (25.7-33.7); MCHC 33.4 g/dl (32.0-35.9); MEAN CELL VOLUME 85.2 fl (80-96); MEAN PLT VOLUME 9.1 fl (7.5-11.1); MONO % 9.6 % (3.8-10.2); NEUT % 72.6 % (42.8-82.8); PLATELET COUNT 228 K/MM3 (134-434); RBC 3.46 M/mm3 (4.00-5.60); RDW 17.8 % (11.9-15.9); WHITE BLOOD COUNT 7.8 K/mm3 (4.0-10.0)
[2018-01-12 08:29] LABS: INR 2.26 (0.82-1.09); PROTHROMBIN TIME (PATIENT) 25.5 SEC (9.98-11.88)
[2018-01-12 08:41] LABS: ALK PHOS 142 U/L (45-117); ANION GAP 10 (8-16); BILIRUBIN,TOTAL 0.5 mg/dL (0.2-1.0); BLOOD UREA NITROGEN 34 mg/dL (7-18); CALCIUM 8.9 mg/dL (8.5-10.1); CHLORIDE 95 mmol/L (98-107); CO2 28 mmol/L (21-32); GLUCOSE,RANDOM 183 mg/dL (74-106); POTASSIUM 4.6 mmol/L (3.5-5.1); SGOT/AST 17 U/L (15-37); SGPT/ALT 31 U/L (12-78); SODIUM 133 mmol/L (136-145)
--- NOTE | 2018-01-12 09:56 | PN ---
Progress Note (short form) - Note Progress Note: PULMONARY RESTING COMFORTABLY APPEARS STABLE VSS/AFEB ANICTERIC DIMINISHED BREATH SOUNDS B/L BASES S1S2 IRREG BS+ DISTENDED MINIMAL TENDERNESS TO PALPATION 1+ EDEMA ANKLES LABS/MEDS/NOTES/IMAGES/PREVIOUS CT ABD NOTED ABD XRAY NL Acute on Chronic Systolic Heart Failure Hyponatremia improved Abd pain/distention less Atrial Fibrillation CAD HTN DM Hyperlipidemia Hypothyroidism - IV lasix - monitor urine output, creatinine - daily weights, I/Os - echocardiogram when clinically stable - urine lytes, osms, serum osms as per renal - monitor lytes - O2 to keep Spo2 >90% - rate control - continue anticoagulation Neftali SAGASTUME MD
[2018-01-12] MEDS: DOCUSATE SODIUM 100 MG CAPSULE (FP) PO SCH (10:06)
[2018-01-12] MEDS: POTASSIUM CHLORIDE TABS 20 MEQ TABLET.ER (FP) PO SCH (10:43)
[2018-01-12] MEDS: SPIRONOLACTONE 25 MG TABLET (FP) PO SCH (10:43)
[2018-01-12] MEDS: ISOSORBIDE MONONITRATE 30 MG TAB.SR.24H (FP) PO SCH (10:43)
[2018-01-12] MEDS: MAGNESIUM OXIDE 400 MG TABLET (FP) PO SCH ×2 (10:43→21:11)
[2018-01-12] MEDS: TAMSULOSIN HCL 0.4 MG CAP.ER.24H (FP) PO SCH (10:43)
[2018-01-12] MEDS: FOLIC ACID 1 MG TABLET (FP) PO SCH (10:43)
[2018-01-12] MEDS: CARVEDILOL 3.125 MG TABLET (FP) PO SCH ×2 (10:43→21:08)
[2018-01-12] MEDS: DULoxetine HCL 30 MG CAPSULE.DR (FP) PO SCH (10:43)
[2018-01-12] MEDS: GABAPENTIN 100 MG CAPSULE (FP) PO SCH ×2 (10:43→21:11)
[2018-01-12] MEDS ORDERED: SODIUM CHLORIDE NASAL SPRAY 44 ML BOTTLE NS PRN (11:09)
--- NOTE | 2018-01-12 11:12 | PN ---
Progress Note (short form) - Note Progress Note: Renal follow up for Hyponatremia Pt seen and examined at the bedside awake and alert reports SOB is slightly improved no cp, cough, fever, chills, abd pain having some soft BMs Vital Signs Temperature 97.9 F 01/12/18 06:00 Pulse Rate 90 01/12/18 06:00 Respiratory Rate 20 01/12/18 06:00 Blood Pressure 117/72 01/12/18 06:00 O2 Sat by Pulse Oximetry (%) 100 01/11/18 21:00 Intake & Output 01/09/18 01/10/18 01/11/18 01/12/18 23:59 23:59 23:59 23:59 Intake Total 800 1300 200 Output Total 950 360 Balance -150 940 200 Weight 99.79 kg 97.341 kg NAD awake and alert RRR Dec BS at lung bases obese, NT/ND trace LE edema CBC, BMP 01/12/18 06:45 01/12/18 06:45 Current Medications Acetaminophen (Tylenol -) 650 mg PO Q4H PRN PRN Reason: PAIN LEVEL 1-5 Last Admin: 01/12/18 06:26 Dose: 650 mg Albuterol/Ipratropium (Duoneb -) 1 amp NEB RQID [facility] Last Admin: 01/12/18 07:50 Dose: 1 amp Alprazolam (Xanax -) 0.25 mg PO BID PRN PRN Reason: ANXIETY Last Admin: 01/12/18 07:05 Dose: 0.25 mg Atorvastatin Calcium (Lipitor -) 80 mg PO HS [facility] Last Admin: 01/11/18 21:44 Dose: 80 mg Carvedilol (Coreg -) 3.125 mg PO BID [facility] Last Admin: 01/12/18 10:43 Dose: 3.125 mg Docusate Sodium (Colace -) 100 mg PO DAILY [facility] Last Admin: 01/12/18 10:06 Dose: Not Given Duloxetine HCl (Cymbalta -) 60 mg PO DAILY [facility] Last Admin: 01/12/18 10:43 Dose: 60 mg Folic Acid (Folic Acid -) 1 mg PO DAILY [facility] Last Admin: 01/12/18 10:43 Dose: 1 mg Furosemide (Lasix Injection -) 40 mg IVPUSH BID@0600,1400 [facility] Last Admin: 01/12/18 05:34 Dose: 40 mg Gabapentin (Neurontin -) 100 mg PO BID [facility] Last Admin: 01/12/18 10:43 Dose: 100 mg Insulin Aspart (Novolog Vial Sliding Scale -) 1 vial SQ [facility] PRN Reason: Protocol Last Admin: 01/12/18 06:27 Dose: 4 units Insulin Detemir (Levemir Vial) 10 units SQ [facility] Last Admin: 01/11/18 21:44 Dose: 10 units Isosorbide Mononitrate (Imdur -) 30 mg PO DAILY [facility] Last Admin: 01/12/18 10:43 Dose: 30 mg Levothyroxine Sodium 75 mcg/ (Levothyroxine Sodium 100 mcg) 175 mcg PO DAILY@ 0700 [facility] Last Admin: 01/12/18 06:11 Dose: 175 mcg Magnesium Oxide (Mag-Ox -) 400 mg PO BID [facility] Last Admin: 01/12/18 10:43 Dose: 400 mg Montelukast Sodium (Singulair -) 10 mg PO [facility] Last Admin: 01/11/18 21:44 Dose: 10 mg Potassium Chloride (K-Dur -) 20 meq PO DAILY [facility] Last Admin: 01/12/18 10:43 Dose: 20 meq Sodium Chloride ([place] Nasal [place] -) 2 spray NS TID PRN PRN Reason: NASAL CONGESTION Spironolactone (Aldactone -) 25 mg PO DAILY [facility] Last Admin: 01/12/18 10:43 Dose: 25 mg Tamsulosin HCl (Flomax -) 0.4 mg PO DAILY@0830 [facility] Last Admin: 01/12/18 10:43 Dose: 0.4 mg Warfarin Sodium (Coumadin -) 4 mg PO DAILY@1800 [facility] Last Admin: 01/11/18 17:29 Dose: 4 mg 82 year old gentleman with PMhx of CHF, Hypertension, Afib, HLD, Hypothyrodism who presented with SOB and found to have hyponatremia. #Hypervolemic hyponatremia in setting of CHF #Acute Systolic HF #Hypertension #Anemia serum Na improving with IV diuresis free water restriction Cardiology follow up Trend daily weights check renal function and electrolytes daily Trend H/H check iron studies as Hgb downtrending Keshav Werner DO
--- NOTE | 2018-01-12 12:59 | PN ---
Progress Note, Physician Chief Complaint: Comfortable at this moment History of Present Illness: 82-year-old man with a known ischemic cardiomyopathy and severe systolic dysfunction, status post ICD implantation, now presenting with shortness of breath. Acute on chronic systolic heart failure. There is no evidence of ischemia nor acute coronary syndrome. - Current Medication List Current Medications: Active Medications Acetaminophen (Tylenol -) 650 mg PO Q4H PRN PRN Reason: PAIN LEVEL 1-5 Last Admin: 01/12/18 06:26 Dose: 650 mg Albuterol/Ipratropium (Duoneb -) 1 amp NEB RQID [facility] Last Admin: 01/12/18 11:30 Dose: Not Given Alprazolam (Xanax -) 0.25 mg PO BID PRN PRN Reason: ANXIETY Last Admin: 01/12/18 07:05 Dose: 0.25 mg Atorvastatin Calcium (Lipitor -) 80 mg PO HS [facility] Last Admin: 01/11/18 21:44 Dose: 80 mg Carvedilol (Coreg -) 3.125 mg PO BID [facility] Last Admin: 01/12/18 10:43 Dose: 3.125 mg Docusate Sodium (Colace -) 100 mg PO DAILY [facility] Last Admin: 01/12/18 10:06 Dose: Not Given Duloxetine HCl (Cymbalta -) 60 mg PO DAILY [facility] Last Admin: 01/12/18 10:43 Dose: 60 mg Folic Acid (Folic Acid -) 1 mg PO DAILY [facility] Last Admin: 01/12/18 10:43 Dose: 1 mg Furosemide (Lasix Injection -) 40 mg IVPUSH BID@0600,1400 [facility] Last Admin: 01/12/18 05:34 Dose: 40 mg Gabapentin (Neurontin -) 100 mg PO BID [facility] Last Admin: 01/12/18 10:43 Dose: 100 mg Insulin Aspart (Novolog Vial Sliding Scale -) 1 vial SQ [facility] PRN Reason: Protocol Last Admin: 01/12/18 11:49 Dose: 6 units Insulin Detemir (Levemir Vial) 10 units SQ HS [facility] Last Admin: 01/11/18 21:44 Dose: 10 units Isosorbide Mononitrate (Imdur -) 30 mg PO DAILY [facility] Last Admin: 01/12/18 10:43 Dose: 30 mg Levothyroxine Sodium 75 mcg/ (Levothyroxine Sodium 100 mcg) 175 mcg PO DAILY@ 0700 [facility] Last Admin: 01/12/18 06:11 Dose: 175 mcg Magnesium Oxide (Mag-Ox -) 400 mg PO BID [facility] Last Admin: 01/12/18 10:43 Dose: 400 mg Montelukast Sodium (Singulair -) 10 mg PO HS [facility] Last Admin: 01/11/18 21:44 Dose: 10 mg Potassium Chloride (K-Dur -) 20 meq PO DAILY [facility] Last Admin: 01/12/18 10:43 Dose: 20 meq Sodium Chloride ([place] Nasal [place] -) 2 spray NS TID PRN PRN Reason: NASAL CONGESTION Last Admin: 01/12/18 11:47 Dose: 2 spray Spironolactone (Aldactone -) 25 mg PO DAILY [facility] Last Admin: 01/12/18 10:43 Dose: 25 mg Tamsulosin HCl (Flomax -) 0.4 mg PO DAILY@0830 [facility] Last Admin: 01/12/18 10:43 Dose: 0.4 mg Warfarin Sodium (Coumadin -) 4 mg PO DAILY@1800 [facility] Last Admin: 01/11/18 17:29 Dose: 4 mg - Objective Vital Signs: Vital Signs Temperature 97.5 F L 01/12/18 10:00 Pulse Rate 89 01/12/18 10:00 Respiratory Rate 20 01/12/18 10:00 Blood Pressure 113/69 01/12/18 10:00 O2 Sat by Pulse Oximetry (%) 97 01/12/18 09:00 Constitutional: Yes: No Distress Cardiovascular: Yes: Regular Rate and Rhythm, S1, S2 Respiratory: Yes: CTA Bilaterally, Diminished, Rales Edema: LLE: 1+, RLE: 1+ Labs: CBC, BMP 01/12/18 06:45 01/12/18 06:45 INR, PTT INR 2.26 (0.82-1.09) H 01/12/18 06:45 Assessment/Plan 82-year-old man with a known ischemic cardiomyopathy and severe systolic dysfunction, status post ICD implantation, now presenting with shortness of breath. Acute on chronic systolic heart failure. There is no evidence of ischemia nor acute coronary syndrome. 1) Acute on chronic systolic chf exacerbation -Continue IV furosemide for diurese Monitor lytes, daily weights, and I/Os Fluid restriction 2) CAD NST with large areas of infarcts with no reversibility -aspirin/statin/beta chencho -Imdur started by pmd. If BP drops would titrate down spironolactone to 12.5mg
--- NOTE | 2018-01-12 17:27 | PN ---
Progress Note, Physician Chief Complaint: AWAKE ALERT MILD DISTRESS C/O PAIN ARTHRITIC IN NATURE - Current Medication List Current Medications: Active Medications Acetaminophen (Tylenol -) 650 mg PO Q4H PRN PRN Reason: PAIN LEVEL 1-5 Last Admin: 01/12/18 06:26 Dose: 650 mg Albuterol/Ipratropium (Duoneb -) 1 amp NEB RQID [facility] Last Admin: 01/12/18 15:09 Dose: 1 amp Alprazolam (Xanax -) 0.25 mg PO BID PRN PRN Reason: ANXIETY Last Admin: 01/12/18 07:05 Dose: 0.25 mg Atorvastatin Calcium (Lipitor -) 80 mg PO HS [facility] Last Admin: 01/11/18 21:44 Dose: 80 mg Carvedilol (Coreg -) 3.125 mg PO BID [facility] Last Admin: 01/12/18 10:43 Dose: 3.125 mg Docusate Sodium (Colace -) 100 mg PO DAILY [facility] Last Admin: 01/12/18 10:06 Dose: Not Given Duloxetine HCl (Cymbalta -) 60 mg PO DAILY [facility] Last Admin: 01/12/18 10:43 Dose: 60 mg Folic Acid (Folic Acid -) 1 mg PO DAILY [facility] Last Admin: 01/12/18 10:43 Dose: 1 mg Furosemide (Lasix Injection -) 40 mg IVPUSH BID@0600,1400 [facility] Last Admin: 01/12/18 13:44 Dose: Not Given Gabapentin (Neurontin -) 100 mg PO BID [facility] Last Admin: 01/12/18 10:43 Dose: 100 mg Insulin Aspart (Novolog Vial Sliding Scale -) 1 vial SQ [facility] PRN Reason: Protocol Last Admin: 01/12/18 11:49 Dose: 6 units Insulin Detemir (Levemir Vial) 10 units SQ HS [facility] Last Admin: 01/11/18 21:44 Dose: 10 units Isosorbide Mononitrate (Imdur -) 30 mg PO DAILY [facility] Last Admin: 01/12/18 10:43 Dose: 30 mg Levothyroxine Sodium 75 mcg/ (Levothyroxine Sodium 100 mcg) 175 mcg PO DAILY@ 0700 [facility] Last Admin: 01/12/18 06:11 Dose: 175 mcg Magnesium Oxide (Mag-Ox -) 400 mg PO BID [facility] Last Admin: 01/12/18 10:43 Dose: 400 mg Montelukast Sodium (Singulair -) 10 mg PO HS [facility] Last Admin: 01/11/18 21:44 Dose: 10 mg Potassium Chloride (K-Dur -) 20 meq PO DAILY [facility] Last Admin: 01/12/18 10:43 Dose: 20 meq Sodium Chloride ([place] Nasal [place] -) 2 spray NS TID PRN PRN Reason: NASAL CONGESTION Last Admin: 01/12/18 11:47 Dose: 2 spray Spironolactone (Aldactone -) 25 mg PO DAILY [facility] Last Admin: 01/12/18 10:43 Dose: 25 mg Tamsulosin HCl (Flomax -) 0.4 mg PO DAILY@0830 [facility] Last Admin: 01/12/18 10:43 Dose: 0.4 mg Warfarin Sodium (Coumadin -) 4 mg PO DAILY@1800 [facility] Last Admin: 01/11/18 17:29 Dose: 4 mg - Objective Vital Signs: Vital Signs Temperature 98.7 F 01/12/18 16:30 Pulse Rate 81 01/12/18 16:30 Respiratory Rate 18 01/12/18 16:30 Blood Pressure 95/66 01/12/18 16:30 O2 Sat by Pulse Oximetry (%) 97 01/12/18 09:00 Constitutional: Yes: Mild Distress Eyes: Yes: WNL HENT: Yes: WNL Neck: Yes: WNL Cardiovascular: Yes: Pulse Irregular Respiratory: Yes: WNL Gastrointestinal: Yes: WNL Genitourinary: Yes: Incontinence Musculoskeletal: Yes: Back Pain, Muscle Pain, Muscle Weakness Extremities: Yes: WNL Edema: No Peripheral Pulses WNL: Yes Integumentary: Yes: WNL Wound/Incision: Yes: Clean/Dry Neurological: Yes: Pre-Existing Deficit ...Motor Strength: LLE, RLE Psychiatric: Yes: Agitated, Other Labs: CBC, BMP 01/12/18 06:45 01/12/18 06:45 INR, PTT INR 2.26 (0.82-1.09) H 01/12/18 06:45 Problem List - Problems (1) Acute on chronic systolic (congestive) heart failure Code(s): I50.23 - ACUTE ON CHRONIC SYSTOLIC (CONGESTIVE) HEART FAILURE (2) Hyponatremia Code(s): E87.1 - HYPO-OSMOLALITY AND HYPONATREMIA (3) THERON (acute kidney injury) Code(s): N17.9 - ACUTE KIDNEY FAILURE, UNSPECIFIED (4) ASHD (arteriosclerotic heart disease) Code(s): I25.10 - ATHSCL HEART DISEASE OF [place] CORONARY ARTERY W/O ANG PCTRS (5) Abdominal pain Code(s): R10.9 - UNSPECIFIED ABDOMINAL PAIN Qualifiers: Abdominal location: right upper quadrant Qualified Code(s): R10.11 - Right upper quadrant pain (6) Anemia Code(s): D64.9 - ANEMIA, UNSPECIFIED (7) Atrial fibrillation Code(s): I48.91 - UNSPECIFIED ATRIAL FIBRILLATION Qualifiers: Atrial fibrillation type: paroxysmal Qualified Code(s): I48.0 - Paroxysmal atrial fibrillation (8) IBS (irritable bowel syndrome) Code(s): K58.9 - IRRITABLE BOWEL SYNDROME WITHOUT DIARRHEA Qualifiers: Irritable bowel syndrome type: with diarrhea Qualified Code(s): K58.0 - Irritable bowel syndrome with diarrhea (9) Obesity (BMI 30-39.9) Code(s): E66.9 - OBESITY, UNSPECIFIED (10) Type 2 diabetes mellitus with diabetic chronic kidney disease Code(s): E11.22 - TYPE 2 DIABETES MELLITUS W DIABETIC CHRONIC KIDNEY DISEASE (11) Type 2 diabetes mellitus with diabetic neuropathic arthropathy Code(s): E11.610 - TYPE 2 DIABETES MELLITUS W DIABETIC NEUROPATHIC ARTHROPATHY (12) 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
[2018-01-12] MEDS: WARFARIN NA 2 MG TABLET (UD) PO SCH (17:35)
[2018-01-12] MEDS: ATORVASTATIN CA 80 MG TABLET (FP) PO SCH (21:11)
[2018-01-12] MEDS: MONTELUKAST NA 10 MG TABLET PO SCH (21:11)
[2018-01-12] MEDS: INSULIN (LEVEMIR) 100 UNITS/ML UNITS SQ SCH (21:12)
--- NOTE | 2018-01-13 01:48 | CONSULT ---
Consult Consult Specialty:: endocrine Referred by:: dr.rabadi willoughby Reason for Consultation:: diabetes melllitus - History of Present Illness Chief Complaint: weak and fell at home History of Present Illness: 82 y/o man with PMH of CHF (EF 34), CA, stents x4, PM, IDDM, Afib (on Coumadin) , HTN, HLD, Hypothyroid, Diverticulitis (with colectomy), . Who presents to the ED with SOB, s/p fall. has been progressively SOB, with LE edema. Patient denies LOC or head trauma. 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 No: Alzheimer's Cardio/Vascular: Yes: AFIB, Aneurysm (mild ascending aortic aneurysm (4.2 cm) per 01/[address]), CAD (stents x2 in 2010; thrombectomy & PCI of proximal and mid LAD with Promus Premier stents and PTCA of D1 on 12/18/15 at [facility] for acute/subacute anteroseptal CA), CHF, HTN, Hyperlipdemia, Other (ischemic cardiomyopathy (LVEF 34% per 02/16/16 nuclear study)) Gastrointestinal: Yes: Constipation, Diverticulosis Musculoskeletal: Yes: Other (rib fx's right) Endocrine: Yes: Diabetes Mellitus, Hypothyroidism - Past Surgical History Past Surgical History: Yes: Arthrosocopy (Right knee arthroscopy w/ partial medial and lateral meniscectomy 09/01/15), Colectomy - Alcohol/Substance Use Hx Alcohol Use: No History of Substance Use: reports: None - Smoking History Smoking history: Former smoker Have you smoked in the past 12 months: No Aproximately how many cigarettes per day: 0 If you are a former smoker, when did you quit?: 40 years ago - Social History Usual Living Arrangement: [facility] (since last d/c) 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 History of Recent Travel: No Home Medications - Allergies Allergies/Adverse Reactions: Allergies Allergy/AdvReac Type Severity Reaction Status Date / Time No Known Drug Allergies Allergy Verified 01/09/18 14:48 - Home Medications Home Medications: Ambulatory Orders Duloxetine HCl [Cymbalta -] 60 mg PO DAILY 09/25/17 Folic Acid 1 mg PO DAILY 09/25/17 Levothyroxine [Synthroid -] 175 mcg PO DAILY 09/25/17 Spironolactone 25 mg PO DAILY 09/25/17 Albuterol 2.5/Ipratropium 0.5 [Duoneb -] 1 amp NEB RQID amp 12/14/17 Atorvastatin Ca [Lipitor] 80 mg PO HS tablet 12/14/17 Montelukast Na [Singulair -] 10 mg PO HS tablet 12/14/17 Tamsulosin HCl [Flomax -] 0.4 mg PO DAILY@0830 cap.er.24h 12/14/17 Alprazolam 0.25 mg PO BID 01/04/18 Carvedilol [Coreg -] 3.125 mg PO BID 01/04/18 Docusate Sodium 100 mg PO DAILY 01/04/18 Furosemide [Lasix -] 40 mg PO BID 01/04/18 Gabapentin 100 mg PO BID 01/04/18 Potassium Chloride [K-Dur -] 20 meq PO DAILY 01/04/18 Warfarin Sodium [Coumadin] 4 mg PO DAILY 01/04/18 Review of Systems - Review of Systems Constitutional: reports: Weakness Eyes: reports: Blurred Vision HENT: reports: No Symptoms Neck: reports: No Symptoms Cardiovascular: reports: Palpitations, Shortness of Breath Respiratory: reports: Exercise Intolerance, SOB on Exertion Gastrointestinal: reports: Bloating, Constipation Genitourinary: reports: No Symptoms Breasts: reports: No Symptoms Reported Musculoskeletal: reports: Extremity Pain, Muscle Cramps, Muscle Weakness Integumentary: reports: No Symptoms Neurological: reports: Numbness, Unsteady Gait, Weakness Endocrine: reports: Unexplained Weight Gain Physical Exam Vital Signs: Vital Signs Temperature 98.3 F 01/12/18 20:39 Pulse Rate 81 01/12/18 21:09 Respiratory Rate 20 01/12/18 21:09 Blood Pressure 99/58 01/12/18 21:09 O2 Sat by Pulse Oximetry (%) 100 01/12/18 21:00 Constitutional: Yes: Anxious Eyes: Yes: EOM Intact HENT: Yes: Normocephalic Neck: Yes: Trachea Midline Cardiovascular: Yes: Tachycardia, Murmur, S3 Respiratory: Yes: CTA Bilaterally, Rales, Tachypnea Gastrointestinal: Yes: Normal Bowel Sounds, Abdomen, Obese, Hypoactive Bowel Sounds ...Rectal Exam: Yes: Deferred Renal/: Yes: WNL Breast(s): Yes: WNL Musculoskeletal: Yes: Back Pain, Muscle Weakness Edema: Yes Edema: LLE: 2+, RLE: 2+ Peripheral Pulses WNL: Yes Neurological: Yes: Alert, Oriented Labs: CBC, BMP 01/12/18 06:45 01/12/18 06:45 Problem List - Problems (1) Controlled diabetes mellitus with diabetic peripheral angiopathy without gangrene, without long-term current use of insulin Code(s): E11.51 - TYPE 2 DIABETES W DIABETIC PERIPHERAL ANGIOPATH W/O GANGRENE Qualifiers: Diabetes mellitus type: due to underlying condition Qualified Code(s): E08.51 - Diabetes mellitus due to underlying condition with diabetic peripheral angiopathy without gangrene (2) Acute on chronic systolic (congestive) heart failure Code(s): I50.23 - ACUTE ON CHRONIC SYSTOLIC (CONGESTIVE) HEART FAILURE (3) THERON (acute kidney injury) Code(s): N17.9 - ACUTE KIDNEY FAILURE, UNSPECIFIED (4) ASHD (arteriosclerotic heart disease) Code(s): I25.10 - ATHSCL HEART DISEASE OF [place] CORONARY ARTERY W/O ANG PCTRS (5) Abdominal distension (gaseous) Code(s): R14.0 - ABDOMINAL DISTENSION (GASEOUS) (6) Abdominal pain Code(s): R10.9 - UNSPECIFIED ABDOMINAL PAIN Qualifiers: Abdominal location: right upper quadrant Qualified Code(s): R10.11 - Right upper quadrant pain Assessment/Plan Current Active Problems Acute on chronic systolic (congestive) heart failure (Acute) Fall (Acute) Hyponatremia (Acute) diabetes mellitus ckd diabetic neuropathy hyperlipidemia hypothyroidism tenisha thyroidism Current Medications Generic Name Dose Route Start Last Admin Trade Name Freq PRN Reason Stop Dose Admin Acetaminophen 650 mg 01/10/18 16:27 01/12/18 21:04 Tylenol - PO 650 mg Q4H PRN Administration PAIN LEVEL 1-5 Albuterol/Ipratropium 1 amp 01/10/18 12:00 01/12/18 20:24 Duoneb - NEB 1 amp RQID MANAN Administration Alprazolam 0.25 mg 01/10/18 10:22 01/12/18 21:17 Xanax - PO 0.25 mg BID PRN Administration ANXIETY Atorvastatin Calcium 80 mg 01/10/18 22:00 01/12/18 21:11 Lipitor - PO 80 mg HS MANAN Administration Carvedilol 3.125 mg 01/11/18 22:01 01/12/18 21:08 Coreg - PO Not Given BID MANAN Docusate Sodium 100 mg 01/10/18 10:30 01/12/18 10:06 Colace - PO Not Given DAILY MANAN Duloxetine HCl 60 mg 01/11/18 10:00 01/12/18 10:43 Cymbalta - PO 60 mg DAILY MANAN Administration Folic Acid 1 mg 01/10/18 10:30 01/12/18 10:43 Folic Acid - PO 1 mg DAILY MANAN Administration Furosemide 40 mg 01/10/18 10:45 01/12/18 13:44 Lasix Injection - IVPUSH Not Given BID@0600,1400 MANAN Gabapentin 100 mg 01/10/18 10:30 01/12/18 21:11 Neurontin - PO 100 mg BID MANAN Administration Insulin Aspart 1 vial 01/11/18 12:20 01/12/18 21:13 Novolog Vial Sliding Scale - SQ 8 units ACHS MANAN Administration Protocol Insulin Detemir 20 units 01/13/18 07:00 Levemir Vial SQ AM MANAN Insulin Detemir 10 units 01/12/18 22:00 01/12/18 21:12 Levemir Vial SQ 10 units HS MANAN Administration Isosorbide Mononitrate 30 mg 01/11/18 22:01 01/12/18 10:43 Imdur - PO 30 mg DAILY MANAN Administration Levothyroxine Sodium 75 mcg/ 175 mcg 01/10/18 11:15 01/12/18 06:11 Levothyroxine Sodium 100 mcg PO 175 mcg DAILY@0700 MANAN Administration Magnesium Oxide 400 mg 01/10/18 10:30 01/12/18 21:11 Mag-Ox - PO 400 mg BID MANAN Administration Montelukast Sodium 10 mg 01/10/18 22:00 01/12/18 21:11 Singulair - PO 10 mg HS MANAN Administration Potassium Chloride 20 meq 01/10/18 10:30 01/12/18 10:43 K-Dur - PO 20 meq DAILY MANAN Administration Sodium Chloride 2 spray 01/12/18 11:09 01/12/18 11:47 [place] Nasal [place] - NS 2 spray TID PRN Administration NASAL CONGESTION Spironolactone 25 mg 01/10/18 10:30 01/12/18 10:43 Aldactone - PO 25 mg DAILY MANAN Administration Tamsulosin HCl 0.4 mg 01/11/18 08:30 01/12/18 10:43 Flomax - PO 0.4 mg DAILY@0830 MANAN Administration Warfarin Sodium 4 mg 01/10/18 18:00 01/12/18 17:35 Coumadin - PO 4 mg DAILY@1800 MANAN Administration Abnormal Lab Results 01/12/18 01/12/18 01/12/18 06:45 06:45 06:45 RBC 3.46 L Hgb 9.9 L Hct 29.5 L RDW 17.8 H Eosinophils % 6.1 H PT with INR 25.50 H INR 2.26 H Sodium 133 L Chloride 95 L BUN 34 H Random Glucose 183 H D Alkaline Phosphatase 142 H Albumin 3.0 L Laboratory Results - last 24 hr 01/11/18 01/12/18 01/12/18 06:30 06:14 06:45 WBC RBC Hgb Hct MCV MCH MCHC RDW Plt Count MPV Neutrophils % Lymphocytes % Monocytes % Eosinophils % Basophils % PT with INR 25.50 H INR 2.26 H Sodium Potassium Chloride Carbon Dioxide Anion Gap BUN Creatinine Creat Clearance w eGFR POC Glucometer 210 Random Glucose Calcium Total Bilirubin AST ALT Alkaline Phosphatase Total Protein Albumin Free T3 2.1 01/12/18 01/12/18 01/12/18 06:45 06:45 11:29 WBC 7.8 RBC 3.46 L Hgb 9.9 L Hct 29.5 L MCV 85.2 MCH 28.5 MCHC 33.4 RDW 17.8 H Plt Count 228 MPV 9.1 Neutrophils % 72.6 Lymphocytes % 10.4 D Monocytes % 9.6 Eosinophils % 6.1 H Basophils % 1.3 PT with INR INR Sodium 133 L Potassium 4.6 Chloride 95 L Carbon Dioxide 28 Anion Gap 10 BUN 34 H Creatinine 1.0 Creat Clearance w eGFR > 60 POC Glucometer 296 Random Glucose 183 H D Calcium 8.9 Total Bilirubin 0.5 D AST 17 ALT 31 Alkaline Phosphatase 142 H Total Protein 7.0 Albumin 3.0 L Free T3 01/12/18 01/12/18 16:50 21:10 WBC RBC Hgb Hct MCV MCH MCHC RDW Plt Count MPV Neutrophils % Lymphocytes % Monocytes % Eosinophils % Basophils % PT with INR INR Sodium Potassium Chloride Carbon Dioxide Anion Gap BUN Creatinine Creat Clearance w eGFR POC Glucometer 301 335 Random Glucose Calcium Total Bilirubin AST ALT Alkaline Phosphatase Total Protein Albumin Free T3 plan; bgm qid novolog insulin dose schedule will avoid hypoglycemia given risk of falling continue synthroid on am schedule
[2018-01-13] MEDS ORDERED: LEVOTHYROXINE NA 75 MCG TABLET (FP) ONE (06:10)
[2018-01-13] MEDS ORDERED: LEVOTHYROXINE NA 100 MCG TABLET (FP) ONE (06:10)
[2018-01-13] MEDS: LEVOTHYROXINE 75 MCG, LEVOTHYROXINE 100 MCG PO SCH (06:14)
[2018-01-13] MEDS: FUROSEMIDE 40 MG/4 ML INJECTABLE VIAL IVPUSH SCH (06:15)
[2018-01-13] MEDS: INSULIN (LEVEMIR) 100 UNITS/ML UNITS SQ SCH ×2 (06:19→22:03)
[2018-01-13] MEDS: INSULIN SLIDING SCALE (NOVOLOG) 1 VIAL SQ SCH ×4 (06:19→22:02)
[2018-01-13] MEDS ORDERED: INSULIN (LEVEMIR) 100 UNITS/ML UNITS SQ ONE (06:32)
[2018-01-13 07:14] LABS: BASO % 1.1 % (0-2.0); EOS % 6.8 % (0-4.5); HEMATOCRIT 28.4 % (35.4-49); HEMOGLOBIN 9.5 GM/dL (11.7-16.9); LYMPH % 12.3 % (8-40); MCH 28.4 pg (25.7-33.7); MCHC 33.4 g/dl (32.0-35.9); MEAN CELL VOLUME 84.9 fl (80-96); MEAN PLT VOLUME 9.3 fl (7.5-11.1); MONO % 10.6 % (3.8-10.2); NEUT % 69.2 % (42.8-82.8); PLATELET COUNT 217 K/MM3 (134-434); RBC 3.34 M/mm3 (4.00-5.60); RDW 17.7 % (11.9-15.9)
[2018-01-13 07:15] LABS: INR 2.34 (0.82-1.09); PROTHROMBIN TIME (PATIENT) 26.4 SEC (9.98-11.88)
[2018-01-13 07:42] LABS: ALBUMIN 2.9 g/dl (3.4-5.0); ANION GAP 8 (8-16); BLOOD UREA NITROGEN 30 mg/dL (7-18); CALCIUM 8.6 mg/dL (8.5-10.1); CHLORIDE 96 mmol/L (98-107); CO2 28 mmol/L (21-32); GLUCOSE,RANDOM 278 mg/dL (74-106); PHOSPHOROUS 3.4 mg/dL (2.5-4.9); POTASSIUM 4.7 mmol/L (3.5-5.1); SGOT/AST 13 U/L (15-37); SGPT/ALT 28 U/L (12-78); SODIUM 132 mmol/L (136-145)
[2018-01-13 07:45] LABS: ALK PHOS 152 U/L (45-117); BILIRUBIN,TOTAL 0.4 mg/dL (0.2-1.0); TOT PROT 6.7 g/dl (6.4-8.2)
[2018-01-13] MEDS: ALBUTEROL SO4 2.5/IPRATROPIUM 0.5 INH SOL 3 ML VIAL.NEB. NEB SCH ×4 (07:45→22:05)
[2018-01-13] MEDS: CARVEDILOL 3.125 MG TABLET (FP) PO SCH ×2 (09:06→21:24)
[2018-01-13] MEDS: ISOSORBIDE MONONITRATE 30 MG TAB.SR.24H (FP) PO SCH (09:06)
[2018-01-13] MEDS: SPIRONOLACTONE 25 MG TABLET (FP) PO SCH (09:06)
[2018-01-13] MEDS ORDERED: PT OWN MED DRAWER 7, Y5N ONE (09:09)
[2018-01-13] MEDS: POTASSIUM CHLORIDE TABS 20 MEQ TABLET.ER (FP) PO SCH (09:15)
[2018-01-13] MEDS: DOCUSATE SODIUM 100 MG CAPSULE (FP) PO SCH (09:15)
[2018-01-13] MEDS: TAMSULOSIN HCL 0.4 MG CAP.ER.24H (FP) PO SCH (09:15)
[2018-01-13] MEDS: DULoxetine HCL 30 MG CAPSULE.DR (FP) PO SCH (09:15)
[2018-01-13] MEDS: FOLIC ACID 1 MG TABLET (FP) PO SCH (09:15)
[2018-01-13] MEDS: MAGNESIUM OXIDE 400 MG TABLET (FP) PO SCH ×2 (09:15→22:01)
[2018-01-13] MEDS: GABAPENTIN 100 MG CAPSULE (FP) PO SCH ×2 (09:16→22:01)
[2018-01-13] MEDS ORDERED: INSULIN (NOVOLOG) ASPART 100 UNITS/ML 10ML VIAL ONE (10:36)
[2018-01-13] MEDS: ACETAMINOPHEN 325 MG TABLET (FP) PO PRN ×2 (11:08→22:01)
--- NOTE | 2018-01-13 11:33 | PN ---
Progress Note (short form) - Note Progress Note: PULMONARY RESTING COMFORTABLY APPEARS STABLE LESS ABD DISCOMFORT VSS/AFEB ANICTERIC DIMINISHED BREATH SOUNDS B/L BASES S1S2 IRREG BS+ DISTENDED MINIMAL TENDERNESS TO PALPATION 1+ EDEMA ANKLES LABS/MEDS/NOTES/IMAGES/PREVIOUS CT ABD NOTED ABD XRAY NL Acute on Chronic Systolic Heart Failure Hyponatremia improved Abd pain/distention less Atrial Fibrillation CAD HTN DM Hyperlipidemia Hypothyroidism - IV lasix - monitor urine output, creatinine - daily weights, I/Os - glycemic control - echocardiogram when clinically stable - urine lytes, osms, serum osms as per renal - monitor lytes - O2 to keep Spo2 >90% - rate control - continue anticoagulation Neftali SAGASTUME MD
[2018-01-13] MEDS ORDERED: MAGNESIUM HYDROX 2400MG/30ML ORAL SUSPENSION 30 ML CUP PO ONE (11:56)
--- NOTE | 2018-01-13 11:58 | PN ---
Progress Note, Physician Chief Complaint: C/O ABD PAIN AND CONSTIPATION - Current Medication List Current Medications: Active Medications Acetaminophen (Tylenol -) 650 mg PO Q4H PRN PRN Reason: PAIN LEVEL 1-5 Last Admin: 01/13/18 11:08 Dose: 650 mg Albuterol/Ipratropium (Duoneb -) 1 amp NEB RQID [facility] Last Admin: 01/13/18 11:50 Dose: Not Given Atorvastatin Calcium (Lipitor -) 80 mg PO [facility] Last Admin: 01/12/18 21:11 Dose: 80 mg Carvedilol (Coreg -) 3.125 mg PO BID [facility] Last Admin: 01/13/18 09:06 Dose: Not Given Docusate Sodium (Colace -) 100 mg PO DAILY [facility] Last Admin: 01/13/18 09:15 Dose: 100 mg Duloxetine HCl (Cymbalta -) 60 mg PO DAILY [facility] Last Admin: 01/13/18 09:15 Dose: 60 mg Folic Acid (Folic Acid -) 1 mg PO DAILY [facility] Last Admin: 01/13/18 09:15 Dose: 1 mg Furosemide (Lasix Injection -) 40 mg IVPUSH BID@0600,1400 [facility] Last Admin: 01/13/18 06:15 Dose: 40 mg Gabapentin (Neurontin -) 100 mg PO BID [facility] Last Admin: 01/13/18 09:16 Dose: 100 mg Insulin Aspart (Novolog Vial Sliding Scale -) 1 vial SQ [facility] PRN Reason: Protocol Last Admin: 01/13/18 10:40 Dose: 10 units Insulin Detemir (Levemir Vial) 20 units SQ AM [facility] Last Admin: 01/13/18 06:19 Dose: 20 units Insulin Detemir (Levemir Vial) 10 units SQ HS [facility] Last Admin: 01/12/18 21:12 Dose: 10 units Isosorbide Mononitrate (Imdur -) 30 mg PO DAILY [facility] Last Admin: 01/13/18 09:06 Dose: Not Given Levothyroxine Sodium 75 mcg/ (Levothyroxine Sodium 100 mcg) 175 mcg PO DAILY@ 0700 [facility] Last Admin: 01/13/18 06:14 Dose: 175 mcg Magnesium Hydroxide (Milk Of Magnesia -) 30 ml PO ONCE ONE Stop: 01/13/18 11:57 Magnesium Oxide (Mag-Ox -) 400 mg PO BID [facility] Last Admin: 01/13/18 09:15 Dose: 400 mg Montelukast Sodium (Singulair -) 10 mg PO HS [facility] Last Admin: 01/12/18 21:11 Dose: 10 mg Polyethylene Glycol (Miralax (For Daily Use) -) 17 gm PO DAILY [facility] Potassium Chloride (K-Dur -) 20 meq PO DAILY [facility] Last Admin: 01/13/18 09:15 Dose: 20 meq Sodium Chloride ([place] Nasal [place] -) 2 spray NS TID PRN PRN Reason: NASAL CONGESTION Last Admin: 01/12/18 11:47 Dose: 2 spray Spironolactone (Aldactone -) 25 mg PO DAILY [facility] Last Admin: 01/13/18 09:06 Dose: Not Given Tamsulosin HCl (Flomax -) 0.4 mg PO DAILY@0830 [facility] Last Admin: 01/13/18 09:15 Dose: 0.4 mg Warfarin Sodium (Coumadin -) 4 mg PO DAILY@1800 [facility] Last Admin: 01/12/18 17:35 Dose: 4 mg - Objective Vital Signs: Vital Signs Temperature 97.5 F L 01/13/18 10:00 Pulse Rate 87 01/13/18 10:00 Respiratory Rate 20 01/13/18 10:00 Blood Pressure 99/64 01/13/18 10:00 O2 Sat by Pulse Oximetry (%) 98 01/13/18 09:00 Constitutional: Yes: Mild Distress Eyes: Yes: WNL HENT: Yes: WNL Neck: Yes: WNL Cardiovascular: Yes: Pulse Irregular Respiratory: Yes: WNL Gastrointestinal: Yes: Tenderness Genitourinary: Yes: Incontinence Musculoskeletal: Yes: Muscle Weakness Extremities: Yes: Other Edema: Yes Edema: LLE: Trace, RLE: Trace Peripheral Pulses WNL: Yes Integumentary: Yes: WNL Wound/Incision: Yes: Clean/Dry Neurological: Yes: Pre-Existing Deficit ...Motor Strength: LLE, RLE Psychiatric: Yes: Other Labs: CBC, BMP 01/13/18 06:00 01/13/18 06:00 INR, PTT INR 2.34 (0.82-1.09) H 01/13/18 06:00 Problem List - Problems (1) Acute on chronic systolic (congestive) heart failure Code(s): I50.23 - ACUTE ON CHRONIC SYSTOLIC (CONGESTIVE) HEART FAILURE (2) Hyponatremia Code(s): E87.1 - HYPO-OSMOLALITY AND HYPONATREMIA (3) THERON (acute kidney injury) Code(s): N17.9 - ACUTE KIDNEY FAILURE, UNSPECIFIED (4) ASHD (arteriosclerotic heart disease) Code(s): I25.10 - ATHSCL HEART DISEASE OF [place] CORONARY ARTERY W/O ANG PCTRS (5) Abdominal pain Code(s): R10.9 - UNSPECIFIED ABDOMINAL PAIN Qualifiers: Abdominal location: right upper quadrant Qualified Code(s): R10.11 - Right upper quadrant pain (6) Anemia Code(s): D64.9 - ANEMIA, UNSPECIFIED (7) Atrial fibrillation Code(s): I48.91 - UNSPECIFIED ATRIAL FIBRILLATION Qualifiers: Atrial fibrillation type: paroxysmal Qualified Code(s): I48.0 - Paroxysmal atrial fibrillation (8) IBS (irritable bowel syndrome) Code(s): K58.9 - IRRITABLE BOWEL SYNDROME WITHOUT DIARRHEA Qualifiers: Irritable bowel syndrome type: with diarrhea Qualified Code(s): K58.0 - Irritable bowel syndrome with diarrhea (9) Obesity (BMI 30-39.9) Code(s): E66.9 - OBESITY, UNSPECIFIED (10) Type 2 diabetes mellitus with diabetic chronic kidney disease Code(s): E11.22 - TYPE 2 DIABETES MELLITUS W DIABETIC CHRONIC KIDNEY DISEASE (11) Type 2 diabetes mellitus with diabetic neuropathic arthropathy Code(s): E11.610 - TYPE 2 DIABETES MELLITUS W DIABETIC NEUROPATHIC ARTHROPATHY (12) 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
[2018-01-13] MEDS ORDERED: POLYETHYLENE GLYCOL 3350 119 GM BTL PO SCH (12:00)
[2018-01-13] MEDS: FUROSEMIDE 40 MG TABLET (FP) PO SCH (14:25)
[2018-01-13] MEDS: LORATADINE 10 MG TABLET PO SCH (14:27)
--- NOTE | 2018-01-13 15:32 | EKG ---
Test Reason : Blood Pressure : / mmHG Vent. Rate : 074 BPM Atrial Rate : 074 BPM P-R Int : 160 ms QRS Dur : 178 ms QT Int : 500 ms P-R-T Axes : 105 -72 112 degrees QTc Int : 555 ms Atrial-sensed ventricular-paced rhythm ABNORMAL ECG WHEN COMPARED WITH ECG OF 09-JAN-2018 16:27, VENT. RATE HAS DECREASED BY 20 BPM Confirmed by MADELINE LEDESMA, PANCHO ([id number]) on 01/13/2018 3:31:57 PM Referred By: Confirmed By:PANCHO CORREA MD
[2018-01-13] MEDS: WARFARIN NA 2 MG TABLET (UD) PO SCH (18:05)
[2018-01-13] MEDS: ALPRAZolam 0.25 MG TABLET PO PRN (22:01)
[2018-01-13] MEDS: MONTELUKAST NA 10 MG TABLET PO SCH (22:01)
[2018-01-13] MEDS: ATORVASTATIN CA 80 MG TABLET (FP) PO SCH (22:01)
[2018-01-13 22:29] LABS: URINE APPEARANCE CLEAR; URINE BILIRUBIN NEGATIVE (<2.0 mg/dL); URINE COLOR LTYELLOW; URINE GLUCOSE (UA) 2+ (NEGATIVE); URINE KETONE NEGATIVE (NEGATIVE); URINE LEUK ESTERASE NEGATIVE (NEGATIVE); URINE NITRITE NEGATIVE (NEGATIVE); URINE PROTEIN NEGATIVE (NEGATIVE); URINE UROBILINOGEN NEGATIVE mg/dL (0.2-1.0)
[2018-01-14] MEDS ORDERED: MAGNESIUM HYDROX 2400MG/30ML ORAL SUSPENSION 30 ML CUP PO ONE (02:02)
[2018-01-14] MEDS ORDERED: LEVOTHYROXINE NA 75 MCG TABLET (FP) ONE (05:14)
[2018-01-14] MEDS ORDERED: LEVOTHYROXINE NA 100 MCG TABLET (FP) ONE (05:14)
[2018-01-14] MEDS: FUROSEMIDE 40 MG TABLET (FP) PO SCH ×2 (06:02→13:55)
[2018-01-14] MEDS: INSULIN SLIDING SCALE (NOVOLOG) 1 VIAL SQ SCH ×4 (06:02→21:26)
[2018-01-14] MEDS: INSULIN (LEVEMIR) 100 UNITS/ML UNITS SQ SCH ×2 (06:02→21:27)
[2018-01-14] MEDS: LEVOTHYROXINE 75 MCG, LEVOTHYROXINE 100 MCG PO SCH (06:02)
[2018-01-14] MEDS ORDERED: INSULIN (NOVOLOG) ASPART 100 UNITS/ML 10ML VIAL ONE (06:55)
[2018-01-14 07:05] LABS: BASO % 1.2 % (0-2.0); EOS % 7.7 % (0-4.5); HEMATOCRIT 29.6 % (35.4-49); HEMOGLOBIN 9.9 GM/dL (11.7-16.9); LYMPH % 13.7 % (8-40); MCH 28.5 pg (25.7-33.7); MCHC 33.3 g/dl (32.0-35.9); MEAN CELL VOLUME 85.3 fl (80-96); MONO % 10.3 % (3.8-10.2); NEUT % 67.1 % (42.8-82.8); PLATELET COUNT 224 K/MM3 (134-434); RBC 3.47 M/mm3 (4.00-5.60); RDW 17.9 % (11.9-15.9); WHITE BLOOD COUNT 6.8 K/mm3 (4.0-10.0)
[2018-01-14] MEDS: ALBUTEROL SO4 2.5/IPRATROPIUM 0.5 INH SOL 3 ML VIAL.NEB. NEB SCH ×4 (07:15→20:44)
[2018-01-14 07:42] LABS: ALBUMIN 2.9 g/dl (3.4-5.0); ANION GAP 5 (8-16); BILIRUBIN,TOTAL 0.4 mg/dL (0.2-1.0); BLOOD UREA NITROGEN 27 mg/dL (7-18); CALCIUM 8.7 mg/dL (8.5-10.1); CHLORIDE 96 mmol/L (98-107); CO2 30 mmol/L (21-32); GLUCOSE,RANDOM 197 mg/dL (74-106); POTASSIUM 4.6 mmol/L (3.5-5.1); SGOT/AST 12 U/L (15-37); SGPT/ALT 23 U/L (12-78); SODIUM 131 mmol/L (136-145); TOT PROT 6.8 g/dl (6.4-8.2)
[2018-01-14 07:43] LABS: ALK PHOS 134 U/L (45-117)
[2018-01-14 07:46] LABS: INR 2.45 (0.82-1.09); PROTHROMBIN TIME (PATIENT) 27.7 SEC (9.98-11.88)
[2018-01-14 08:09] LABS: SERUM IRON SATURATION 10 % (15-55); TOTAL IRON BINDING CAPACITY 265 ug/dL (250-450); UIBC 238 ug/dL (111-343)
--- NOTE | 2018-01-14 08:47 | PN ---
Progress Note, Physician - Current Medication List Current Medications: Active Medications Acetaminophen (Tylenol -) 650 mg PO Q4H PRN PRN Reason: PAIN LEVEL 1-5 Last Admin: 01/13/18 22:01 Dose: 650 mg Albuterol/Ipratropium (Duoneb -) 1 amp NEB RQID [facility] Last Admin: 01/14/18 07:15 Dose: 1 amp Alprazolam (Xanax -) 0.25 mg PO Q12H PRN PRN Reason: ANXIETY Last Admin: 01/13/18 22:01 Dose: 0.25 mg Atorvastatin Calcium (Lipitor -) 80 mg PO HS [facility] Last Admin: 01/13/18 22:01 Dose: 80 mg Carvedilol (Coreg -) 3.125 mg PO BID [facility] Last Admin: 01/13/18 21:24 Dose: Not Given Docusate Sodium (Colace -) 100 mg PO DAILY [facility] Last Admin: 01/13/18 09:15 Dose: 100 mg Duloxetine HCl (Cymbalta -) 60 mg PO DAILY [facility] Last Admin: 01/13/18 09:15 Dose: 60 mg Folic Acid (Folic Acid -) 1 mg PO DAILY [facility] Last Admin: 01/13/18 09:15 Dose: 1 mg Furosemide (Lasix -) 40 mg PO BID@0600,1400 [facility] Last Admin: 01/14/18 06:02 Dose: 40 mg Gabapentin (Neurontin -) 100 mg PO BID [facility] Last Admin: 01/13/18 22:01 Dose: 100 mg Levofloxacin (Levaquin 500 Mg Premixed Ivpb -) 500 mg in 100 mls @ 100 mls/hr IVPB DAILY [facility] PRN Reason: Protocol Insulin Aspart (Novolog Vial Sliding Scale -) 1 vial SQ ACHS [facility] PRN Reason: Protocol Last Admin: 01/14/18 06:02 Dose: 5 units Insulin Detemir (Levemir Vial) 20 units SQ AM [facility] Last Admin: 01/14/18 06:02 Dose: 20 units Insulin Detemir (Levemir Vial) 10 units SQ HS [facility] Last Admin: 01/13/18 22:03 Dose: 10 units Isosorbide Mononitrate (Imdur -) 30 mg PO DAILY [facility] Last Admin: 01/13/18 09:06 Dose: Not Given Levothyroxine Sodium 75 mcg/ (Levothyroxine Sodium 100 mcg) 175 mcg PO DAILY@ 0700 [facility] Last Admin: 01/14/18 06:02 Dose: 175 mcg Loratadine (Claritin -) 10 mg PO DAILY [facility] Last Admin: 01/13/18 14:27 Dose: 10 mg Magnesium Oxide (Mag-Ox -) 400 mg PO BID [facility] Last Admin: 01/13/18 22:01 Dose: 400 mg Montelukast Sodium (Singulair -) 10 mg PO HS [facility] Last Admin: 01/13/18 22:01 Dose: 10 mg Potassium Chloride (K-Dur -) 20 meq PO DAILY [facility] Last Admin: 01/13/18 09:15 Dose: 20 meq Sodium Chloride ([place] Nasal [place] -) 2 spray NS TID PRN PRN Reason: NASAL CONGESTION Last Admin: 01/12/18 11:47 Dose: 2 spray Spironolactone (Aldactone -) 25 mg PO DAILY [facility] Last Admin: 01/13/18 09:06 Dose: Not Given Tamsulosin HCl (Flomax -) 0.4 mg PO DAILY@0830 [facility] Last Admin: 01/13/18 09:15 Dose: 0.4 mg Warfarin Sodium (Coumadin -) 4 mg PO DAILY@1800 [facility] Last Admin: 01/13/18 18:05 Dose: 4 mg - Objective Vital Signs: Vital Signs Temperature 97.9 F 01/14/18 04:29 Pulse Rate 81 01/14/18 04:29 Respiratory Rate 22 01/14/18 04:29 Blood Pressure 118/71 01/14/18 04:29 O2 Sat by Pulse Oximetry (%) 100 01/13/18 21:00 Cardiovascular: Yes: S1, S2 Respiratory: Yes: Regular, CTA Bilaterally Gastrointestinal: Yes: Normal Bowel Sounds, Soft Edema: No Labs: CBC, BMP 01/14/18 06:00 01/14/18 06:00 INR, PTT INR 2.45 (0.82-1.09) H 01/14/18 06:00 Problem List - Problems (1) Acute on chronic systolic (congestive) heart failure Assessment/Plan: LASIX CARDIO ON BOARD Code(s): I50.23 - ACUTE ON CHRONIC SYSTOLIC (CONGESTIVE) HEART FAILURE (2) Hyponatremia Assessment/Plan: IMPROVED MONITOR Code(s): E87.1 - HYPO-OSMOLALITY AND HYPONATREMIA (3) Abdominal pain Assessment/Plan: CONSTIPATION ENEMA INCREASE MIRALAX GI Code(s): R10.9 - UNSPECIFIED ABDOMINAL PAIN Qualifiers: Abdominal location: right upper quadrant Qualified Code(s): R10.11 - Right upper quadrant pain (4) Atrial fibrillation Assessment/Plan: ON COUMADIN Code(s): I48.91 - UNSPECIFIED ATRIAL FIBRILLATION Qualifiers: Atrial fibrillation type: paroxysmal Qualified Code(s): I48.0 - Paroxysmal atrial fibrillation (5) COPD (chronic obstructive pulmonary disease) Assessment/Plan: NEBS Code(s): J44.9 - CHRONIC OBSTRUCTIVE PULMONARY DISEASE, UNSPECIFIED (6) Diabetes mellitus, insulin dependent (IDDM), uncontrolled Assessment/Plan: INSULIN BGM ENDO ON CASE Code(s): E10.65 - TYPE 1 DIABETES MELLITUS WITH HYPERGLYCEMIA Qualifiers:
[2018-01-14] MEDS: DULoxetine HCL 30 MG CAPSULE.DR (FP) PO SCH (09:42)
[2018-01-14] MEDS: GABAPENTIN 100 MG CAPSULE (FP) PO SCH ×2 (09:42→21:09)
[2018-01-14] MEDS: FOLIC ACID 1 MG TABLET (FP) PO SCH (09:42)
[2018-01-14] MEDS: TAMSULOSIN HCL 0.4 MG CAP.ER.24H (FP) PO SCH (09:42)
[2018-01-14] MEDS: POTASSIUM CHLORIDE TABS 20 MEQ TABLET.ER (FP) PO SCH (09:43)
[2018-01-14] MEDS: DOCUSATE SODIUM 100 MG CAPSULE (FP) PO SCH (09:43)
[2018-01-14] MEDS: MAGNESIUM OXIDE 400 MG TABLET (FP) PO SCH ×2 (09:43→21:09)
[2018-01-14] MEDS: ISOSORBIDE MONONITRATE 30 MG TAB.SR.24H (FP) PO SCH (09:43)
[2018-01-14] MEDS: LORATADINE 10 MG TABLET PO SCH (09:44)
[2018-01-14] MEDS: CARVEDILOL 3.125 MG TABLET (FP) PO SCH ×2 (09:44→21:09)
[2018-01-14] MEDS: POLYETHYLENE GLYCOL 3350 119 GM BTL PO SCH ×2 (09:44→21:12)
[2018-01-14] MEDS: SPIRONOLACTONE 25 MG TABLET (FP) PO SCH (09:45)
--- NOTE | 2018-01-14 13:33 | PN ---
Progress Note, Physician History of Present Illness: pulmonary alert,no distress,-sob.pt c/o ruq abd discomfort - Current Medication List Current Medications: Active Medications Acetaminophen (Tylenol -) 650 mg PO Q4H PRN PRN Reason: PAIN LEVEL 1-5 Last Admin: 01/13/18 22:01 Dose: 650 mg Albuterol/Ipratropium (Duoneb -) 1 amp NEB RQID [facility] Last Admin: 01/14/18 11:01 Dose: 1 amp Alprazolam (Xanax -) 0.25 mg PO Q12H PRN PRN Reason: ANXIETY Last Admin: 01/13/18 22:01 Dose: 0.25 mg Atorvastatin Calcium (Lipitor -) 80 mg PO HS [facility] Last Admin: 01/13/18 22:01 Dose: 80 mg Carvedilol (Coreg -) 3.125 mg PO BID [facility] Last Admin: 01/14/18 09:44 Dose: 3.125 mg Docusate Sodium (Colace -) 100 mg PO DAILY [facility] Last Admin: 01/14/18 09:43 Dose: 100 mg Duloxetine HCl (Cymbalta -) 60 mg PO DAILY [facility] Last Admin: 01/14/18 09:42 Dose: 60 mg Folic Acid (Folic Acid -) 1 mg PO DAILY [facility] Last Admin: 01/14/18 09:42 Dose: 1 mg Furosemide (Lasix -) 40 mg PO BID@0600,1400 [facility] Last Admin: 01/14/18 06:02 Dose: 40 mg Gabapentin (Neurontin -) 100 mg PO BID [facility] Last Admin: 01/14/18 09:42 Dose: 100 mg Levofloxacin (Levaquin 500 Mg Premixed Ivpb -) 500 mg in 100 mls @ 100 mls/hr IVPB DAILY [facility] PRN Reason: Protocol Last Admin: 01/14/18 09:41 Dose: 100 mls/hr Insulin Aspart (Novolog Vial Sliding Scale -) 1 vial SQ ACHS [facility] PRN Reason: Protocol Last Admin: 01/14/18 06:02 Dose: 5 units Insulin Detemir (Levemir Vial) 20 units SQ AM [facility] Last Admin: 01/14/18 06:02 Dose: 20 units Insulin Detemir (Levemir Vial) 10 units SQ HS [facility] Last Admin: 01/13/18 22:03 Dose: 10 units Isosorbide Mononitrate (Imdur -) 30 mg PO DAILY [facility] Last Admin: 01/14/18 09:43 Dose: 30 mg Levothyroxine Sodium 75 mcg/ (Levothyroxine Sodium 100 mcg) 175 mcg PO DAILY@ 0700 [facility] Last Admin: 01/14/18 06:02 Dose: 175 mcg Loratadine (Claritin -) 10 mg PO DAILY [facility] Last Admin: 01/14/18 09:44 Dose: 10 mg Magnesium Oxide (Mag-Ox -) 400 mg PO BID [facility] Last Admin: 01/14/18 09:43 Dose: 400 mg Montelukast Sodium (Singulair -) 10 mg PO HS [facility] Last Admin: 01/13/18 22:01 Dose: 10 mg Polyethylene Glycol (Miralax (For Daily Use) -) 17 gm PO BID [facility] Last Admin: 01/14/18 09:44 Dose: 17 grams Potassium Chloride (K-Dur -) 20 meq PO DAILY [facility] Last Admin: 01/14/18 09:43 Dose: 20 meq Sodium Chloride ([place] Nasal [place] -) 2 spray NS TID PRN PRN Reason: NASAL CONGESTION Last Admin: 01/12/18 11:47 Dose: 2 spray Spironolactone (Aldactone -) 25 mg PO DAILY [facility] Last Admin: 01/14/18 09:45 Dose: 25 mg Tamsulosin HCl (Flomax -) 0.4 mg PO DAILY@0830 [facility] Last Admin: 01/14/18 09:42 Dose: 0.4 mg Warfarin Sodium (Coumadin -) 4 mg PO DAILY@1800 [facility] Last Admin: 01/13/18 18:05 Dose: 4 mg - Objective Vital Signs: Vital Signs Temperature 97.9 F 01/14/18 09:45 Pulse Rate 86 01/14/18 09:45 Respiratory Rate 18 01/14/18 09:45 Blood Pressure 102/63 01/14/18 09:45 O2 Sat by Pulse Oximetry (%) 100 01/13/18 21:00 Constitutional: Yes: Well Nourished, Calm Eyes: Yes: WNL HENT: Yes: WNL Neck: Yes: WNL Cardiovascular: Yes: Pulse Irregular, S1, S2 Respiratory: Yes: Diminished Gastrointestinal: Yes: Normal Bowel Sounds, Soft, Abdomen, Obese, Tenderness, Rebound (RUQ) Extremities: Yes: WNL Edema: Yes Labs: CBC, BMP 01/14/18 06:00 01/14/18 06:00 INR, PTT INR 2.45 (0.82-1.09) H 01/14/18 06:00 Problem List - Problems (1) Acute on chronic systolic (congestive) heart failure Code(s): I50.23 - ACUTE ON CHRONIC SYSTOLIC (CONGESTIVE) HEART FAILURE (2) Fall Code(s): W19.XXXA - UNSPECIFIED FALL, INITIAL ENCOUNTER Qualifiers: Encounter type: initial encounter Qualified Code(s): W19.XXXA - Unspecified fall, initial encounter (3) Hyponatremia Code(s): E87.1 - HYPO-OSMOLALITY AND HYPONATREMIA (4) THERON (acute kidney injury) Code(s): N17.9 - ACUTE KIDNEY FAILURE, UNSPECIFIED (5) ASHD (arteriosclerotic heart disease) Code(s): I25.10 - ATHSCL HEART DISEASE OF [place] CORONARY ARTERY W/O ANG PCTRS (6) Abdominal pain Code(s): R10.9 - UNSPECIFIED ABDOMINAL PAIN Qualifiers: Abdominal location: right upper quadrant Qualified Code(s): R10.11 - Right upper quadrant pain (7) Atrial fibrillation Code(s): I48.91 - UNSPECIFIED ATRIAL FIBRILLATION Qualifiers: Atrial fibrillation type: paroxysmal Qualified Code(s): I48.0 - Paroxysmal atrial fibrillation (8) CAD (coronary artery disease) Code(s): I25.10 - ATHSCL HEART DISEASE OF [place] CORONARY ARTERY W/O ANG PCTRS Qualifiers: Coronary Disease-Associated Artery/Lesion type: unspecified vessel or lesion type [place] vs. transplanted heart: [place] heart Associated angina: angina presence unspecified Qualified Code(s): I25.10 - Atherosclerotic heart disease of [place] coronary artery without angina pectoris (9) COPD with exacerbation Code(s): J44.1 - CHRONIC OBSTRUCTIVE PULMONARY DISEASE W (ACUTE) EXACERBATION Assessment/Plan Acute on Chronic Systolic Heart Failure clinically improving Hyponatremia improved Abd pain/distention less Atrial Fibrillation CAD HTN DM Hyperlipidemia Hypothyroidism - IV lasix - monitor urine output, creatinine - daily weights, I/Os - glycemic control - urine lytes, osms, serum osms as per renal - monitor lytes - O2 to keep Spo2 >90% - rate control - anticoagulation DR SPRINGER
--- NOTE | 2018-01-14 14:55 | PN ---
Progress Note, Physician Chief Complaint: The patient is sitting comfortably at the time of exam. He has no SOB at rest, chest pain or palpitation. History of Present Illness: 82-year-old man with a known ischemic cardiomyopathy, chronic systolic CHF with severe LV systolic dysfunction, s/p ICD implantation, admitted 01/09/2018 with shortness of breath with evidence of acute on chronic systolic heart failure. There is no evidence of ischemia nor acute coronary syndrome. - Current Medication List Current Medications: Active Medications Acetaminophen (Tylenol -) 650 mg PO Q4H PRN PRN Reason: PAIN LEVEL 1-5 Last Admin: 01/13/18 22:01 Dose: 650 mg Albuterol/Ipratropium (Duoneb -) 1 amp NEB RQID [facility] Last Admin: 01/14/18 11:01 Dose: 1 amp Alprazolam (Xanax -) 0.25 mg PO Q12H PRN PRN Reason: ANXIETY Last Admin: 01/13/18 22:01 Dose: 0.25 mg Atorvastatin Calcium (Lipitor -) 80 mg PO HS [facility] Last Admin: 01/13/18 22:01 Dose: 80 mg Carvedilol (Coreg -) 3.125 mg PO BID [facility] Last Admin: 01/14/18 09:44 Dose: 3.125 mg Docusate Sodium (Colace -) 100 mg PO DAILY [facility] Last Admin: 01/14/18 09:43 Dose: 100 mg Duloxetine HCl (Cymbalta -) 60 mg PO DAILY [facility] Last Admin: 01/14/18 09:42 Dose: 60 mg Folic Acid (Folic Acid -) 1 mg PO DAILY [facility] Last Admin: 01/14/18 09:42 Dose: 1 mg Furosemide (Lasix -) 40 mg PO BID@0600,1400 [facility] Last Admin: 01/14/18 13:55 Dose: Not Given Gabapentin (Neurontin -) 100 mg PO BID [facility] Last Admin: 01/14/18 09:42 Dose: 100 mg Levofloxacin (Levaquin 500 Mg Premixed Ivpb -) 500 mg in 100 mls @ 100 mls/hr IVPB DAILY [facility] PRN Reason: Protocol Last Admin: 01/14/18 09:41 Dose: 100 mls/hr Insulin Aspart (Novolog Vial Sliding Scale -) 1 vial SQ ACHS [facility] PRN Reason: Protocol Last Admin: 01/14/18 13:40 Dose: 6 units Insulin Detemir (Levemir Vial) 20 units SQ AM [facility] Last Admin: 01/14/18 06:02 Dose: 20 units Insulin Detemir (Levemir Vial) 10 units SQ HS [facility] Last Admin: 01/13/18 22:03 Dose: 10 units Isosorbide Mononitrate (Imdur -) 30 mg PO DAILY [facility] Last Admin: 01/14/18 09:43 Dose: 30 mg Levothyroxine Sodium 75 mcg/ (Levothyroxine Sodium 100 mcg) 175 mcg PO DAILY@ 0700 [facility] Last Admin: 01/14/18 06:02 Dose: 175 mcg Loratadine (Claritin -) 10 mg PO DAILY [facility] Last Admin: 01/14/18 09:44 Dose: 10 mg Magnesium Oxide (Mag-Ox -) 400 mg PO BID [facility] Last Admin: 01/14/18 09:43 Dose: 400 mg Montelukast Sodium (Singulair -) 10 mg PO HS [facility] Last Admin: 01/13/18 22:01 Dose: 10 mg Polyethylene Glycol (Miralax (For Daily Use) -) 17 gm PO BID [facility] Last Admin: 01/14/18 09:44 Dose: 17 grams Potassium Chloride (K-Dur -) 20 meq PO DAILY [facility] Last Admin: 01/14/18 09:43 Dose: 20 meq Sodium Chloride ([place] Nasal [place] -) 2 spray NS TID PRN PRN Reason: NASAL CONGESTION Last Admin: 01/12/18 11:47 Dose: 2 spray Spironolactone (Aldactone -) 25 mg PO DAILY [facility] Last Admin: 01/14/18 09:45 Dose: 25 mg Tamsulosin HCl (Flomax -) 0.4 mg PO DAILY@0830 [facility] Last Admin: 01/14/18 09:42 Dose: 0.4 mg Warfarin Sodium (Coumadin -) 4 mg PO DAILY@1800 [facility] Last Admin: 01/13/18 18:05 Dose: 4 mg - Objective Vital Signs: Vital Signs Temperature 98.2 F 01/14/18 14:45 Pulse Rate 86 01/14/18 14:45 Respiratory Rate 16 01/14/18 14:45 Blood Pressure 99/57 01/14/18 14:45 O2 Sat by Pulse Oximetry (%) 100 01/13/18 21:00 General: Well developed.Chronic ill. No acute distress. Head: Normocephalic. Atraumatic, Eyes: PERRLA, EOMI. Sclerae anicteric. Conjunctivae clear. Neck: Supple. No JVD. No bruits. Heart: Normal S1, S2: Irregularly regular rhythm and rate. No murmur. No gallop or rub. Lungs: Symmetrical air entry. Bibasilar crackle. No wheezing or rhonchi. Abdomen: Distended. Soft. Bowel sound positive. Non tender. No masses. Extremities: Trace- 1+No edema. Venous stasis. Neuro: Intact, no focal findings. AAO X3. Labs: CBC, BMP 01/14/18 06:00 01/14/18 06:00 INR, PTT INR 2.45 (0.82-1.09) H 01/14/18 06:00 Assessment/Plan 82-year-old man with a known ischemic cardiomyopathy and severe systolic dysfunction, status post ICD implantation, now presenting with shortness of breath. Acute on chronic systolic heart failure. There is no evidence of ischemia nor acute coronary syndrome. He was treated with IV diuresis with improvement. 1) Acute on chronic systolic chf exacerbation -Continue IV furosemide 40 mg BID to keep Os > IS. Monitor lytes, daily weights, and I/Os Fluid restriction. Consider increase carvedilol 6.25 mg BID if BP tolerated. Continue spironolactone 25 mg daily. 2) CAD: No symptoms of anginna. NST with large areas of infarcts with no reversibility -aspirin/statin/beta chencho and Imdur.
[2018-01-14] MEDS: WARFARIN NA 2 MG TABLET (UD) PO SCH (19:58)
[2018-01-14] MEDS: MONTELUKAST NA 10 MG TABLET PO SCH (21:09)
[2018-01-14] MEDS: ATORVASTATIN CA 80 MG TABLET (FP) PO SCH (21:09)
[2018-01-14] MEDS: ACETAMINOPHEN 325 MG TABLET (FP) PO PRN (21:10)
[2018-01-15] MEDS ORDERED: LEVOTHYROXINE NA 100 MCG TABLET (FP) ONE (05:26)
[2018-01-15] MEDS ORDERED: LEVOTHYROXINE NA 75 MCG TABLET (FP) ONE (05:27)
[2018-01-15] MEDS: FUROSEMIDE 40 MG TABLET (FP) PO SCH ×2 (05:54→16:11)
[2018-01-15] MEDS: LEVOTHYROXINE 75 MCG, LEVOTHYROXINE 100 MCG PO SCH (06:02)
[2018-01-15] MEDS: INSULIN (LEVEMIR) 100 UNITS/ML UNITS SQ SCH (06:06)
[2018-01-15] MEDS: INSULIN SLIDING SCALE (NOVOLOG) 1 VIAL SQ SCH ×3 (06:06→17:20)
--- NOTE | 2018-01-15 08:20 | DS ---
Physical Examination Vital Signs: Vital Signs Temperature 98.8 F 01/15/18 07:11 Pulse Rate 81 01/15/18 07:11 Respiratory Rate 18 01/15/18 07:11 Blood Pressure 125/77 01/15/18 07:11 O2 Sat by Pulse Oximetry (%) 100 01/14/18 21:00 Findings/Remarks: The patient is an 82-year-old man, we've a history of diabetes, hypertension, hyperlipidemia, paroxysmal atrial fibrillation on Coumadin, coronary artery disease and prior PCI's, status post myocardial infarction, severe left ventricular systolic dysfunction, status post AICD implantation now presenting with recurrent shortness of breath, acute on chronic systolic heart failure. The patient is breathing better this morning. He looks quite comfortable. Denies chest pains. - History Source History Provided By: Patient, Medical Record Limitations to Obtaining History: No Limitations - Past Medical History CORN GROWER: Yes: TIA. No: Alzheimer's Cardio/Vascular: Yes: AFIB, Aneurysm (mild ascending aortic aneurysm (4.2 cm) per 01/[address]), CAD (stents x2 in 2010; thrombectomy & PCI of proximal and mid LAD with Promus Premier stents and PTCA of D1 on 12/18/15 at [facility] for acute/subacute anteroseptal [place]), CHF, HTN, Hyperlipdemia, Other (ischemic cardiomyopathy (LVEF 34% per 02/16/16 nuclear study)) Gastrointestinal: Yes: Constipation, Diverticulosis Musculoskeletal: Yes: Other (rib fx's right) Endocrine: Yes: Diabetes Mellitus, Hypothyroidism - Past Surgical History Past Surgical History: Yes: Arthrosocopy (Right knee arthroscopy w/ partial medial and lateral meniscectomy 09/01/15), Colectomy Labs: CBC, BMP 01/14/18 06:00 01/14/18 06:00 Discharge Summary Reason For Visit: HYPONATREMIA Current Active Problems Acute on chronic systolic (congestive) heart failure (Acute) Controlled diabetes mellitus with diabetic peripheral angiopathy without gangrene, without long-term current use of insulin (Acute) Fall (Acute) Hyponatremia (Acute) Hospital Course: - Problems (1) Acute on chronic systolic (congestive) heart failure Assessment/Plan: LASIX CARDIO ON BOARD Code(s): I50.23 - ACUTE ON CHRONIC SYSTOLIC (CONGESTIVE) HEART FAILURE (2) Hyponatremia Assessment/Plan: IMPROVED MONITOR Code(s): E87.1 - HYPO-OSMOLALITY AND HYPONATREMIA (3) Abdominal pain Assessment/Plan: CONSTIPATION ENEMA WITH GOOD RESPONSE INCREASE MIRALAX GI CT NAD Code(s): R10.9 - UNSPECIFIED ABDOMINAL PAIN Qualifiers: Abdominal location: right upper quadrant Qualified Code(s): R10.11 - Right upper quadrant pain (4) Atrial fibrillation Assessment/Plan: ON COUMADIN Code(s): I48.91 - UNSPECIFIED ATRIAL FIBRILLATION Qualifiers: Atrial fibrillation type: paroxysmal Qualified Code(s): I48.0 - Paroxysmal atrial fibrillation (5) COPD (chronic obstructive pulmonary disease) Assessment/Plan: NEBS Code(s): J44.9 - CHRONIC OBSTRUCTIVE PULMONARY DISEASE, UNSPECIFIED (6) Diabetes mellitus, insulin dependent (IDDM), uncontrolled Assessment/Plan: INSULIN BGM ENDO ON CASE Code(s): E10.65 - TYPE 1 DIABETES MELLITUS WITH HYPERGLYCEMIA Qualifiers: (7) UTI Assessment/Plan: LEVAQUIN Condition: Improved - Instructions Referrals: Rodriguez Rowan MD [Primary Care Provider] - 2 Weeks Disposition: VNS/HOME HEALTH CARE - Home Medications Comprehensive Discharge Medication List: Ambulatory Orders Duloxetine HCl [Cymbalta -] 60 mg PO DAILY 09/25/17 Folic Acid 1 mg PO DAILY 09/25/17 Levothyroxine [Synthroid -] 175 mcg PO DAILY 09/25/17 Spironolactone 25 mg PO DAILY 09/25/17 Albuterol 2.5/Ipratropium 0.5 [Duoneb -] 1 amp NEB RQID amp 12/14/17 Atorvastatin Ca [Lipitor] 80 mg PO HS tablet 12/14/17 Montelukast Na [Singulair -] 10 mg PO HS tablet 12/14/17 Tamsulosin HCl [Flomax -] 0.4 mg PO DAILY@0830 cap.er.24h 12/14/17 Alprazolam 0.25 mg PO BID 01/04/18 Carvedilol [Coreg -] 3.125 mg PO BID 01/04/18 Docusate Sodium 100 mg PO DAILY 01/04/18 Furosemide [Lasix -] 40 mg PO BID 01/04/18 Gabapentin 100 mg PO BID 01/04/18 Potassium Chloride [K-Dur -] 20 meq PO DAILY 01/04/18 Warfarin Sodium [Coumadin] 4 mg PO DAILY 01/04/18 Loratadine [Claritin -] 10 mg PO DAILY tablet 01/15/18 Polyethylene Glycol 3350 [Miralax 119 gm Btl -] 17 gm PO BID bottle 01/15/18 Sodium Chloride Nasal [place] [[place] Nasal [place] -] 2 spray NS TID PRN spray 01/15/18 levoFLOXacin [Levaquin -] 500 mg PO DAILY #5 tablet 01/15/18
[2018-01-15] MEDS: ALBUTEROL SO4 2.5/IPRATROPIUM 0.5 INH SOL 3 ML VIAL.NEB. NEB SCH (08:30)
--- NOTE | 2018-01-15 10:02 | PN ---
Progress Note, Physician Chief Complaint: The patient appears comfortable at the time of exam. He has no SOB at rest, and denies chest pain or palpitation. History of Present Illness: 82-year-old man with a known ischemic cardiomyopathy, chronic systolic CHF with severe LV systolic dysfunction, s/p ICD implantation, admitted 01/09/2018 with shortness of breath with evidence of acute on chronic systolic heart failure. There is no evidence of ischemia nor acute coronary syndrome. - Current Medication List Current Medications: Active Medications Acetaminophen (Tylenol -) 650 mg PO Q4H PRN PRN Reason: PAIN LEVEL 1-5 Last Admin: 01/14/18 21:10 Dose: 650 mg Albuterol/Ipratropium (Duoneb -) 1 amp NEB RQID [facility] Last Admin: 01/14/18 20:44 Dose: 1 amp Alprazolam (Xanax -) 0.25 mg PO Q12H PRN PRN Reason: ANXIETY Last Admin: 01/13/18 22:01 Dose: 0.25 mg Atorvastatin Calcium (Lipitor -) 80 mg PO HS [facility] Last Admin: 01/14/18 21:09 Dose: 80 mg Carvedilol (Coreg -) 3.125 mg PO BID [facility] Last Admin: 01/14/18 21:09 Dose: 3.125 mg Docusate Sodium (Colace -) 100 mg PO DAILY [facility] Last Admin: 01/14/18 09:43 Dose: 100 mg Duloxetine HCl (Cymbalta -) 60 mg PO DAILY [facility] Last Admin: 01/14/18 09:42 Dose: 60 mg Folic Acid (Folic Acid -) 1 mg PO DAILY [facility] Last Admin: 01/14/18 09:42 Dose: 1 mg Furosemide (Lasix -) 40 mg PO BID@0600,1400 [facility] Last Admin: 01/15/18 05:54 Dose: 40 mg Gabapentin (Neurontin -) 100 mg PO BID [facility] Last Admin: 01/14/18 21:09 Dose: 100 mg Insulin Aspart (Novolog Vial Sliding Scale -) 1 vial SQ ACHS [facility] PRN Reason: Protocol Last Admin: 01/15/18 06:06 Dose: 5 units Insulin Detemir (Levemir Vial) 20 units SQ AM [facility] Last Admin: 01/15/18 06:06 Dose: 20 units Insulin Detemir (Levemir Vial) 10 units SQ HS [facility] Last Admin: 01/14/18 21:27 Dose: 10 units Isosorbide Mononitrate (Imdur -) 30 mg PO DAILY [facility] Last Admin: 01/14/18 09:43 Dose: 30 mg Levofloxacin (Levaquin -) 500 mg PO DAILY@0600 [facility] Levothyroxine Sodium 75 mcg/ (Levothyroxine Sodium 100 mcg) 175 mcg PO DAILY@ 0700 [facility] Last Admin: 01/15/18 06:02 Dose: 175 mcg Loratadine (Claritin -) 10 mg PO DAILY [facility] Last Admin: 01/14/18 09:44 Dose: 10 mg Magnesium Oxide (Mag-Ox -) 400 mg PO BID [facility] Last Admin: 01/14/18 21:09 Dose: 400 mg Montelukast Sodium (Singulair -) 10 mg PO [facility] Last Admin: 01/14/18 21:09 Dose: 10 mg Polyethylene Glycol (Miralax (For Daily Use) -) 17 gm PO BID [facility] Last Admin: 01/14/18 21:12 Dose: 17 grams Potassium Chloride (K-Dur -) 20 meq PO DAILY [facility] Last Admin: 01/14/18 09:43 Dose: 20 meq Sodium Chloride ([place] Nasal [place] -) 2 spray NS TID PRN PRN Reason: NASAL CONGESTION Last Admin: 01/12/18 11:47 Dose: 2 spray Spironolactone (Aldactone -) 25 mg PO DAILY [facility] Last Admin: 01/14/18 09:45 Dose: 25 mg Tamsulosin HCl (Flomax -) 0.4 mg PO DAILY@0830 [facility] Last Admin: 01/14/18 09:42 Dose: 0.4 mg Warfarin Sodium (Coumadin -) 4 mg PO DAILY@1800 [facility] Last Admin: 01/14/18 19:58 Dose: 4 mg - Objective Vital Signs: Vital Signs Temperature 98.8 F 01/15/18 07:11 Pulse Rate 81 01/15/18 07:11 Respiratory Rate 18 01/15/18 07:11 Blood Pressure 125/77 01/15/18 07:11 O2 Sat by Pulse Oximetry (%) 100 01/14/18 21:00 General: Well developed.Chronic ill. No acute distress. Head: Normocephalic. Atraumatic, Eyes: PERRLA, EOMI. Sclerae anicteric. Conjunctivae clear. Neck: Supple. No JVD. No bruits. Heart: Normal S1, S2: Regularly regular rhythm and rate. No murmur. No gallop or rub. Lungs: Symmetrical air entry. Bibasilar crackle. No wheezing or rhonchi. Abdomen: Distended. Soft. Bowel sound positive. Non tender. No masses. Extremities: Trace- No edema. Labs: CBC, BMP 01/14/18 06:00 01/14/18 06:00 INR, PTT INR 2.45 (0.82-1.09) H 01/14/18 06:00 Assessment/Plan 82-year-old man with a known ischemic cardiomyopathy and severe systolic dysfunction, status post ICD implantation, now presenting with shortness of breath. Acute on chronic systolic heart failure. There is no evidence of ischemia nor acute coronary syndrome. He was treated with IV diuresis with improvement. 1) Acute on chronic systolic CHF: -Agree to change furosemide to PO 40 mg BID. -Continue fluid restriction. -Increase carvedilol 6.25 mg BID. -Continue spironolactone 25 mg daily. 2) CAD: No symptoms of anginna. NST with large areas of infarcts with no reversibility -aspirin/statin/beta chencho and Imdur. 3) Discharge plan: The patient can be discharge with close out-patient follow up.
[2018-01-15] MEDS ORDERED: CARVEDILOL 6.25 MG TABLET (FP) PO SCH (10:06)
[2018-01-15] MEDS: DOCUSATE SODIUM 100 MG CAPSULE (FP) PO SCH (10:11)
[2018-01-15] MEDS: POLYETHYLENE GLYCOL 3350 119 GM BTL PO SCH (10:12)
--- NOTE | 2018-01-15 10:12 | EKG ---
Test Reason : Blood Pressure : / mmHG Vent. Rate : 083 BPM Atrial Rate : 083 BPM P-R Int : 162 ms QRS Dur : 184 ms QT Int : 478 ms P-R-T Axes : 107 -72 090 degrees QTc Int : 561 ms NORMAL SINUS RHYTHM Atrial-sensed ventricular-paced rhythm ABNORMAL ECG WHEN COMPARED WITH ECG OF 10-JAN-2018 22:57, VENT. RATE HAS INCREASED BY 9 BPM Confirmed by MD VALDEZ, KATIA ([id number]) on 01/15/2018 10:11:58 AM Referred By: Pasquale VÁZQUEZ Confirmed By:KATIA KELLOGG MD
[2018-01-15] MEDS: GABAPENTIN 100 MG CAPSULE (FP) PO SCH (10:14)
[2018-01-15] MEDS: ACETAMINOPHEN 325 MG TABLET (FP) PO PRN (10:14)
[2018-01-15] MEDS: MAGNESIUM OXIDE 400 MG TABLET (FP) PO SCH (10:15)
[2018-01-15] MEDS: ALPRAZolam 0.25 MG TABLET PO PRN (10:15)
[2018-01-15] MEDS: SPIRONOLACTONE 25 MG TABLET (FP) PO SCH (10:15)
[2018-01-15] MEDS: ISOSORBIDE MONONITRATE 30 MG TAB.SR.24H (FP) PO SCH (10:15)
[2018-01-15] MEDS: DULoxetine HCL 30 MG CAPSULE.DR (FP) PO SCH (10:16)
[2018-01-15] MEDS: TAMSULOSIN HCL 0.4 MG CAP.ER.24H (FP) PO SCH (10:16)
[2018-01-15] MEDS: LORATADINE 10 MG TABLET PO SCH (10:16)
[2018-01-15] MEDS: POTASSIUM CHLORIDE TABS 20 MEQ TABLET.ER (FP) PO SCH (10:17)
[2018-01-15] MEDS: CARVEDILOL 3.125 MG TABLET (FP) PO SCH (10:17)
[2018-01-15] MEDS: FOLIC ACID 1 MG TABLET (FP) PO SCH (10:17)
--- NOTE | 2018-01-15 11:29 | CON.GI ---
Consult Consult Specialty:: Gi Referred by:: Dr Rowan - Past Medical History BULB TESTER: Yes: TIA. No: Alzheimer's Cardio/Vascular: Yes: AFIB, Aneurysm (mild ascending aortic aneurysm (4.2 cm) per 01/[address]), CAD (stents x2 in 2010; thrombectomy & PCI of proximal and mid LAD with Promus Premier stents and PTCA of D1 on 12/18/15 at [facility] for acute/subacute anteroseptal [place]), CHF, HTN, Hyperlipdemia, Other (ischemic cardiomyopathy (LVEF 34% per 02/16/16 nuclear study)) Gastrointestinal: Yes: Constipation, Diverticulosis Musculoskeletal: Yes: Other (rib fx's right) Endocrine: Yes: Diabetes Mellitus, Hypothyroidism - Past Surgical History Past Surgical History: Yes: Arthrosocopy (Right knee arthroscopy w/ partial medial and lateral meniscectomy 09/01/15), Colectomy - Alcohol/Substance Use Hx Alcohol Use: No History of Substance Use: reports: None - Smoking History Smoking history: Former smoker Have you smoked in the past 12 months: No Aproximately how many cigarettes per day: 0 If you are a former smoker, when did you quit?: 40 years ago - Social History Usual Living Arrangement: Group Home (since last d/c) 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 History of Recent Travel: No Home Medications - Allergies Allergies/Adverse Reactions: Allergies Allergy/AdvReac Type Severity Reaction Status Date / Time No Known Drug Allergies Allergy Verified 01/09/18 14:48 - Home Medications Home Medications: Ambulatory Orders Duloxetine HCl [Cymbalta -] 60 mg PO DAILY 09/25/17 Folic Acid 1 mg PO DAILY 09/25/17 Levothyroxine [Synthroid -] 175 mcg PO DAILY 09/25/17 Spironolactone 25 mg PO DAILY 09/25/17 Albuterol 2.5/Ipratropium 0.5 [Duoneb -] 1 amp NEB RQID amp 12/14/17 Atorvastatin Ca [Lipitor] 80 mg PO HS tablet 12/14/17 Montelukast Na [Singulair -] 10 mg PO HS tablet 12/14/17 Tamsulosin HCl [Flomax -] 0.4 mg PO DAILY@0830 cap.er.24h 12/14/17 Alprazolam 0.25 mg PO BID 01/04/18 Carvedilol [Coreg -] 3.125 mg PO BID 01/04/18 Docusate Sodium 100 mg PO DAILY 01/04/18 Furosemide [Lasix -] 40 mg PO BID 01/04/18 Gabapentin 100 mg PO BID 01/04/18 Potassium Chloride [K-Dur -] 20 meq PO DAILY 01/04/18 Warfarin Sodium [Coumadin] 4 mg PO DAILY 01/04/18 Loratadine [Claritin -] 10 mg PO DAILY tablet 01/15/18 Polyethylene Glycol 3350 [Miralax 119 gm Btl -] 17 gm PO BID bottle 01/15/18 Sodium Chloride Nasal [place] [[place] Nasal [place] -] 2 spray NS TID PRN spray 01/15/18 levoFLOXacin [Levaquin -] 500 mg PO DAILY #5 tablet 01/15/18 Physical Exam-GI Vital Signs: Vital Signs Temperature 98.4 F 01/15/18 10:15 Pulse Rate 84 01/15/18 10:15 Respiratory Rate 20 01/15/18 10:15 Blood Pressure 107/69 01/15/18 10:15 O2 Sat by Pulse Oximetry (%) 100 01/14/18 21:00 Labs: CBC, BMP 01/14/18 06:00 01/14/18 06:00 INR, PTT INR 2.45 (0.82-1.09) H 01/14/18 06:00
--- NOTE | 2018-01-15 11:47 | PN ---
Progress Note (short form) - Note Progress Note: Overall breathing is better. No acute events overnight. Intake & Output 01/12/18 01/13/18 01/14/18 01/15/18 23:59 23:59 23:59 23:59 Intake Total 600 630 800 Output Total 1050 550 Balance 600 -420 250 Weight 214 lb 9.6 oz 216 lb 220 lb 225 lb Last Vital Signs Temp Pulse Resp BP Pulse Ox 98.4 F 84 20 107/69 100 01/15/18 10:15 01/15/18 10:15 01/15/18 10:15 01/15/18 10:15 01/14/18 21:00 Active Medications Acetaminophen (Tylenol -) 650 mg PO Q4H PRN PRN Reason: PAIN LEVEL 1-5 Last Admin: 01/15/18 10:14 Dose: 650 mg Albuterol/Ipratropium (Duoneb -) 1 amp NEB RQID [facility] Last Admin: 01/14/18 20:44 Dose: 1 amp Alprazolam (Xanax -) 0.25 mg PO Q12H PRN PRN Reason: ANXIETY Last Admin: 01/15/18 10:15 Dose: 0.25 mg Atorvastatin Calcium (Lipitor -) 80 mg PO HS [facility] Last Admin: 01/14/18 21:09 Dose: 80 mg Carvedilol (Coreg -) 6.25 mg PO BID [facility] Last Admin: 01/15/18 10:15 Dose: 6.25 mg Docusate Sodium (Colace -) 100 mg PO DAILY [facility] Last Admin: 01/15/18 10:11 Dose: Not Given Duloxetine HCl (Cymbalta -) 60 mg PO DAILY [facility] Last Admin: 01/15/18 10:16 Dose: 60 mg Folic Acid (Folic Acid -) 1 mg PO DAILY [facility] Last Admin: 01/15/18 10:17 Dose: 1 mg Furosemide (Lasix -) 40 mg PO BID@0600,1400 [facility] Last Admin: 01/15/18 05:54 Dose: 40 mg Gabapentin (Neurontin -) 100 mg PO BID [facility] Last Admin: 01/15/18 10:14 Dose: 100 mg Insulin Aspart (Novolog Vial Sliding Scale -) 1 vial SQ ACHS [facility] PRN Reason: Protocol Last Admin: 01/15/18 06:06 Dose: 5 units Insulin Detemir (Levemir Vial) 20 units SQ AM [facility] Last Admin: 01/15/18 06:06 Dose: 20 units Insulin Detemir (Levemir Vial) 10 units SQ HS [facility] Last Admin: 01/14/18 21:27 Dose: 10 units Isosorbide Mononitrate (Imdur -) 30 mg PO DAILY [facility] Last Admin: 01/15/18 10:15 Dose: 30 mg Levofloxacin (Levaquin -) 500 mg PO DAILY@0600 [facility] Last Admin: 01/15/18 10:17 Dose: 500 mg Levothyroxine Sodium 75 mcg/ (Levothyroxine Sodium 100 mcg) 175 mcg PO DAILY@ 0700 [facility] Last Admin: 01/15/18 06:02 Dose: 175 mcg Loratadine (Claritin -) 10 mg PO DAILY [facility] Last Admin: 01/15/18 10:16 Dose: 10 mg Magnesium Oxide (Mag-Ox -) 400 mg PO BID [facility] Last Admin: 01/15/18 10:15 Dose: 400 mg Montelukast Sodium (Singulair -) 10 mg PO [facility] Last Admin: 01/14/18 21:09 Dose: 10 mg Polyethylene Glycol (Miralax (For Daily Use) -) 17 gm PO BID [facility] Last Admin: 01/15/18 10:12 Dose: Not Given Potassium Chloride (K-Dur -) 20 meq PO DAILY [facility] Last Admin: 01/15/18 10:17 Dose: 20 meq Sodium Chloride ([place] Nasal [place] -) 2 spray NS TID PRN PRN Reason: NASAL CONGESTION Last Admin: 01/12/18 11:47 Dose: 2 spray Spironolactone (Aldactone -) 25 mg PO DAILY [facility] Last Admin: 01/15/18 10:15 Dose: 25 mg Tamsulosin HCl (Flomax -) 0.4 mg PO DAILY@0830 [facility] Last Admin: 01/15/18 10:16 Dose: 0.4 mg Warfarin Sodium (Coumadin -) 4 mg PO DAILY@1800 [facility] Last Admin: 01/14/18 19:58 Dose: 4 mg Constitutional: Yes: NAD Eyes: Yes: WNL HENT: Yes: WNL Neck: Yes: WNL Cardiovascular: Yes: Pulse Irregular, S1, S2 Respiratory: Yes: Diminished at the bases Gastrointestinal: Yes: Normal Bowel Sounds, Soft, Abdomen, Obese, Tenderness, Rebound (RUQ) Extremities: Yes: WNL Edema: Yes Labs: Laboratory Results - last 24 hr 01/14/18 01/14/18 01/14/18 11:43 17:30 21:25 POC Glucometer 264 232 266 Creatine Kinase Troponin I 01/15/18 01/15/18 01/15/18 05:46 09:10 11:22 POC Glucometer 249 217 Creatine Kinase 39 Troponin I 0.04 D Problem List - Problems (1) Acute on chronic systolic (congestive) heart failure Code(s): I50.23 - ACUTE ON CHRONIC SYSTOLIC (CONGESTIVE) HEART FAILURE (2) Fall Code(s): W19.XXXA - UNSPECIFIED FALL, INITIAL ENCOUNTER Qualifiers: Encounter type: initial encounter Qualified Code(s): W19.XXXA - Unspecified fall, initial encounter (3) Hyponatremia Code(s): E87.1 - HYPO-OSMOLALITY AND HYPONATREMIA (4) THERON (acute kidney injury) Code(s): N17.9 - ACUTE KIDNEY FAILURE, UNSPECIFIED (5) ASHD (arteriosclerotic heart disease) Code(s): I25.10 - ATHSCL HEART DISEASE OF [place] CORONARY ARTERY W/O ANG PCTRS (6) Abdominal pain Code(s): R10.9 - UNSPECIFIED ABDOMINAL PAIN Qualifiers: Abdominal location: right upper quadrant Qualified Code(s): R10.11 - Right upper quadrant pain (7) Atrial fibrillation Code(s): I48.91 - UNSPECIFIED ATRIAL FIBRILLATION Qualifiers: Atrial fibrillation type: paroxysmal Qualified Code(s): I48.0 - Paroxysmal atrial fibrillation (8) CAD (coronary artery disease) Code(s): I25.10 - ATHSCL HEART DISEASE OF [place] CORONARY ARTERY W/O ANG PCTRS Qualifiers: Coronary Disease-Associated Artery/Lesion type: unspecified vessel or lesion type [place] vs. transplanted heart: [place] heart Associated angina: angina presence unspecified Qualified Code(s): I25.10 - Atherosclerotic heart disease of [place] coronary artery without angina pectoris (9) COPD with exacerbation Code(s): J44.1 - CHRONIC OBSTRUCTIVE PULMONARY DISEASE W (ACUTE) EXACERBATION Assessment/Plan Acute on Chronic Systolic Heart Failure clinically improving Hyponatremia improved Abd pain/distention less Atrial Fibrillation CAD HTN DM Hyperlipidemia Hypothyroidism - Lasix - glycemic control - O2 as needed - Coumadin - D/C planning Dr Ramirez
[2018-01-15] MEDS ORDERED: INSULIN (NOVOLOG) ASPART 100 UNITS/ML 10ML VIAL ONE (12:07)
[2018-01-15 15:20] VITALS: BP 120/84; PULSE 70; TEMP 98.2
== END 2018-01-15 18:44 | disposition home health service (06) | DRG 292 ==
LOC: JER 14:37 → JERBED 18:35 → J8W 20:52
PROVIDERS: ADMIT Internal Medicine; ATTEND Family Medicine
DX: I11.0 Hypertensive heart disease with heart failure (principal); E87.1 Hypo-osmolality and hyponatremia; N39.0 Urinary tract infection, site not specified; I50.23 Acute on chronic systolic (congestive) heart failure; E11.65 Type 2 diabetes mellitus with hyperglycemia; E78.5 Hyperlipidemia, unspecified; Z91.14 Patient's other noncompliance with medication regimen; I25.10 Atherosclerotic heart disease of native coronary artery without angina pectoris; I48.0 Paroxysmal atrial fibrillation; E03.9 Hypothyroidism, unspecified; I25.5 Ischemic cardiomyopathy; E13.51 Other specified diabetes mellitus with diabetic peripheral angiopathy without gangrene; R10.11 Right upper quadrant pain; J44.9 Chronic obstructive pulmonary disease, unspecified; K59.00 Constipation, unspecified; E11.22 Type 2 diabetes mellitus with diabetic chronic kidney disease; E11.311 Type 2 diabetes mellitus with unspecified diabetic retinopathy with macular edema; R26.81 Unsteadiness on feet; D64.9 Anemia, unspecified; Z98.61 Coronary angioplasty status; R07.89 Other chest pain
CPT/HCPCS: 36415; 70450-TC; 71045-TC-FY; 74018-TC-FY; 74177-TC; 80048; 80053; 81003; 81015; 82550; 82570; 82728; 82962; 83036; 83540; 83550; 83735; 83880; 84100; 84300; 84439; 84443; 84481; 84484; 85025; 85610; 85730; 87086; 87186; 93005; 93010; 94640; 97116-GP; 97161-GP; 99285-25; J7620

== ENCOUNTER 2018-01-17 11:45 | Inpatient (IN) | payer OTHER ==
--- NOTE | 2018-01-17 12:26 | PDOC ---
History of Present Illness - General History Source: Patient, Family Exam Limitations: Clinical Condition - History of Present Illness Initial Comments: 01/17/18 12:57 The patient is a 83 year old male with a significant past medical history of CHF, Afib (on Coumadin 4mg), [place] (s/p stents x2 and PPM), HTN, HLD, IDDM, hypothyroidism, and diverticulitis (s/p partial colectomy) who presents to the emergency department s/p discharge on 01/15, for evaluation froy confusion, weakness, and fatigue as per and VNS today. The patient endorses nausea, chills, and increased thirst. He also reports a moment of chest pain about 20 minutes prior to arrival which has since resolved. The at bedside states the patient was walking at his baseline yesterday with occasional use of his walker. She states he woke up confused today. The nurse reports taking the patients glucose this morning and reports the BG was in 300s. The BG is 375 in the ED now. Allergies: NKDA Past Surgical History: partial colectomy, s/p stents x2, PPM Past Social History: No reported alcohol, drug, or cigarette use. <Janene Wiley - Last Filed: 01/17/18 16:51> <Malvin Paniagua - Last Filed: 01/17/18 17:28> - General Chief Complaint: Syncope/Near Syncope Stated Complaint: DIFFICULTY BREATHING Time Seen by Provider: 01/17/18 12:18 Past History <Janene Wiley - Last Filed: 01/17/18 16:51> - Past Medical History Anemia: No Asthma: No Cancer: No Cardiac Disorders: Yes (3 cardiac stents) CVA: Yes COPD: No CHF: No DVT: No Dementia: (?) Diabetes: Yes (IDDM) Dialysis: No GI Disorders: Yes (DIVERTICULITIS, colectomy) Disorders: No HTN: Yes Hypercholesterolemia: Yes Kidney Stones: No Liver Disease: No Psychiatric Problems: No Seizures: No Thyroid Disease: Yes (HYPOTHYROIDISM) Lung CA: No - Surgical History Abdominal Surgery: Yes (FOR DIVERTICULITIS; partial colectomy) Appendectomy: No Cardiac Surgery: Yes (STENT X 3,ppm) Cholecystectomy: No Gastric Stapling: No GI Surgery: Yes Lung Surgery: No Neurologic Surgery: No Orthopedic Surgery: No - Immunization History Td Vaccination: No TDAP Vaccination: (unknown on last date now will receive on 12/18/2015) Immunization Up to Date: Yes (FLU ) - Suicide/Smoking/Psychosocial Hx Smoking Status: No Smoking History: Former smoker Have you smoked in the past 12 months: No Number of Cigarettes Smoked Daily: 0 If you are a former smoker, when did you quit?: 40 years ago Information on smoking cessation initiated: No Hx Alcohol Use: No Drug/Substance Use Hx: No Substance Use Type: None Hx Substance Use Treatment: No <Malvin Paniagua - Last Filed: 01/17/18 17:28> - Past Medical History Allergies/Adverse Reactions: Allergies Allergy/AdvReac Type Severity Reaction Status Date / Time No Known Drug Allergies Allergy Verified 01/17/18 12:06 Home Medications: Ambulatory Orders Duloxetine HCl [Cymbalta -] 60 mg PO DAILY 09/25/17 Folic Acid 1 mg PO DAILY 09/25/17 Levothyroxine [Synthroid -] 175 mcg PO DAILY 09/25/17 Spironolactone 25 mg PO DAILY 09/25/17 Albuterol 2.5/Ipratropium 0.5 [Duoneb -] 1 amp NEB RQID amp 12/14/17 Atorvastatin Ca [Lipitor] 80 mg PO HS tablet 12/14/17 Montelukast Na [Singulair -] 10 mg PO HS tablet 12/14/17 Tamsulosin HCl [Flomax -] 0.4 mg PO DAILY@0830 cap.er.24h 12/14/17 Alprazolam 0.25 mg PO BID 01/04/18 Docusate Sodium 100 mg PO DAILY 01/04/18 Furosemide [Lasix -] 40 mg PO BID 01/04/18 Gabapentin 100 mg PO BID 01/04/18 Potassium Chloride [K-Dur -] 20 meq PO DAILY 01/04/18 Warfarin Sodium [Coumadin] 4 mg PO DAILY 01/04/18 Carvedilol [Coreg -] 6.25 mg PO BID #60 tablet 01/15/18 Loratadine [Claritin -] 10 mg PO DAILY tablet 01/15/18 Polyethylene Glycol 3350 [Miralax 119 gm Btl -] 17 gm PO BID bottle 01/15/18 Sodium Chloride Nasal [place] [[place] Nasal [place] -] 2 spray NS TID PRN spray 01/15/18 levoFLOXacin [Levaquin -] 500 mg PO DAILY #5 tablet 01/15/18 Review of Systems - Review of Systems Able to Perform ROS?: Yes Comments:: 01/17/18 12:59 As per VNS and at bedside. Constitutional:(+) recent illness/hospitalization; no fever ENT: No sore throat Cardiovascular: No palpitations; no chest pain Pulmonary: No cough; no trouble breathing Gastrointestinal:(+) nausea. NO vomiting; no diarrhea Genitourinary: No urinary problems; no hematuria Skin: No rash Lymph system: No swollen glands Endo: (+) increased thirst Musculoskeletal: No joint swelling Neurological: (+) weakness and AMS; No numbness; No Headache; no vertigo; no lightheadedness Psychiatric:No anxiety; no depression A complete review of 10 out of 10 review of systems is taken and is negative apart from what is previously mentioned below and in the HPI. <Janene Wiley - Last Filed: 01/17/18 16:51> *Physical Exam - Vital Signs Last Vital Signs Temp Pulse Resp BP Pulse Ox 98.7 F 60 23 98/66 97 01/17/18 12:01 01/17/18 12:01 01/17/18 12:01 01/17/18 12:01 01/17/18 12:01 - Physical Exam Comments: 01/17/18 13:01 Vitals: Triage vital signs reviewed General Appearance: No apparent distress. Well developed. Head: Atraumatic Eyes: Pupils equal reactive round, extraocular movement intact Neck: Supple; No nuchal rigidity Chest Wall: Nontender Cardiac: Regular rate and rhythm, no murmurs, no rubs, no gallops Lungs: (+) crackles bilaterally. good air movement bilaterally Abdomen: Soft, nondistended, normal bowel sounds, nontender to palpation Genitourinary: No rashes. no discharge. Rectal: Exam deferred Extremities: (+) 1+ pitting edema bilateral LE. Full range of motion to all extremities, no cyanosis, clubbing Skin: Warm and dry, no rashes or lesions, no rash, no petechiae Neuro: Strength intact to all extremities, Sensation intact to all extremities , <Janene Wiley - Last Filed: 01/17/18 16:51> - Vital Signs Last Vital Signs Temp Pulse Resp BP Pulse Ox 98.7 F 60 23 98/66 97 01/17/18 12:01 01/17/18 12:01 01/17/18 12:01 01/17/18 12:01 01/17/18 12:01 <SivaMalvin - Last Filed: 01/17/18 17:28> ED Treatment Course - LABORATORY CBC & Chemistry Diagram: 01/17/18 13:12 01/17/18 15:05 - ADDITIONAL ORDERS Additional order review: Laboratory Results 01/17/18 12:14 POC Glucometer 375.47360 01/17/18 12:14 POC Glucometer 375.17299 <Janene Wiley - Last Filed: 01/17/18 16:51> - LABORATORY CBC & Chemistry Diagram: 01/17/18 13:12 01/17/18 15:05 <aMlvin Paniagua - Last Filed: 01/17/18 17:28> Medical Decision Making - Medical Decision Making 01/17/18 13:04 CC: AMS today, two days s.p discharge from hospital. HPI: The patient is a 83 year old male with a significant past medical history of CHF, Afib (on Coumadin 4mg), [place] (s/p stents x2 and PPM), HTN, HLD, IDDM, hypothyroidism, and diverticulitis (s/p partial colectomy) who presents to the emergency department s/p discharge on 01/15, for evaluation froy confusion, weakness, and fatigue as per and VNS today. The patient endorses nausea, chills, and increased thirst. He also reports a moment of chest pain about 20 minutes prior to arrival which has since resolved. The at bedside states the patient was walking at his baseline yesterday with occasional use of his walker. She states he woke up confused today. The nurse reports taking the patients glucose this morning and reports the BG was in 300s. The BG is 375 in the ED now. ROS: A complete review of 10 out of 10 review of systems is taken and is negative apart from what is previously mentioned below and in the HPI. Exam: Vitals: Triage Vital signs reviewed General Appearance: no acute distress, well nourished well developed, Head: Atraumatic, normocephalic Eyes: Pupils equal reactive round, extraocular movement intact Neck: Supple;No Nuchal rigidity Chest Wall: Nontender Cardiac: Regular rate and rhythm, no murmurs, no rubs, no gallops, Lungs: (+) crackles bilaterally. good air movement bilaterally, Abdomen: Soft, nondistended, normal bowel sounds, nontender to palpation Rectal: Exam deferred Extremities: (+) b/l lower extremit edema 1+ pitting. Full range of motion to all extremities, no cyanosis, clubbing Skin: Warm and dry, no rashes or lesions, no petechiae Neuro: Strength intact to all extremities, Sensation intact to all extremities 01/17/18 16:50 Dr. Rowan was called at the office ([phone]) requesting a doctor to doctor regarding admission of this patient. The patient's case was discussed. Dr. Rowan accepts this patient for admission. <Janene Wiley - Last Filed: 01/17/18 16:51> - Medical Decision Making Altered mental status unclear etiology differential diagnosis includes possible early pneumonia possible early GI etiology possible polypharmacy Case discussed with patient's primary care provider Dr. Rowan. We'll add on tox panel cover with Vancocin Zosyn for possible infection will admit patient to telemetry for further evaluation. <Malvin Paniagua - Last Filed: 01/17/18 17:28> *DC/Admit/Observation/Transfer - Attestations Scribe Attestion: 01/17/18 13:07 Documentation prepared by Janene Wiley, acting as medical billing instructor for Malvin Paniagua MD, <Janene Wiley - Last Filed: 01/17/18 16:51> - Discharge Dispostion Admit: Yes <Malvin Paniagua - Last Filed: 01/17/18 17:28> Diagnosis at time of Disposition: Altered mental status Qualifiers: Altered mental status type: unspecified Qualified Code(s): R41.82 - Altered mental status, unspecified
[2018-01-17] MEDS ORDERED: SODIUM CHLORIDE 0.9% 1000 ML INFUS.BAG IV ONE (12:44)
--- NOTE | 2018-01-17 12:55 | EKG ---
Test Reason : Blood Pressure : / mmHG Vent. Rate : 073 BPM Atrial Rate : 073 BPM P-R Int : 154 ms QRS Dur : 184 ms QT Int : 496 ms P-R-T Axes : 098 -72 075 degrees QTc Int : 546 ms Atrial-sensed ventricular-paced rhythm ABNORMAL ECG WHEN COMPARED WITH ECG OF 15-JAN-2018 09:18, VENT. RATE HAS DECREASED BY 10 BPM Confirmed by REENA LEDESMA, SHAHZAD ([id number]) on 01/17/2018 12:54:32 PM Referred By: Confirmed By:SHAHZAD VALLES MD
[2018-01-17 13:22] LABS: BASO % 0.5 % (0-2.0); EOS % 1.8 % (0-4.5); HEMATOCRIT 30.6 % (35.4-49); HEMOGLOBIN 10.2 GM/dL (11.7-16.9); LYMPH % 8.2 % (8-40); MCH 28.2 pg (25.7-33.7); MCHC 33.2 g/dl (32.0-35.9); MEAN CELL VOLUME 85.1 fl (80-96); MEAN PLT VOLUME 9.3 fl (7.5-11.1); MONO % 9.7 % (3.8-10.2); NEUT % 79.8 % (42.8-82.8); PLATELET COUNT 253 K/MM3 (134-434); RDW 17.6 % (11.9-15.9); WHITE BLOOD COUNT 9.5 K/mm3 (4.0-10.0)
[2018-01-17 13:35] LABS: INR 2.07 (0.82-1.09); PROTHROMBIN TIME (PATIENT) 23.4 SEC (9.7-13.0)
[2018-01-17 13:38] LABS: ACTIVATED PTT 36.2 SECONDS (26.9-34.4)
[2018-01-17 15:41] LABS: ALBUMIN 2.7 g/dl (3.4-5.0); ALK PHOS 261 U/L (45-117); ANION GAP 8 (8-16); BILIRUBIN,TOTAL 0.6 mg/dL (0.2-1.0); BLOOD UREA NITROGEN 44 mg/dL (7-18); CALCIUM 8.1 mg/dL (8.5-10.1); CHLORIDE 96 mmol/L (98-107); CO2 25 mmol/L (21-32); CREATININE 1.3 mg/dL (0.7-1.3); GLUCOSE,RANDOM 214 mg/dL (74-106); POTASSIUM 4.9 mmol/L (3.5-5.1); SGOT/AST 170 U/L (15-37); SGPT/ALT 198 U/L (12-78); SODIUM 129 mmol/L (136-145); TOT PROT 6.9 g/dl (6.4-8.2)
[2018-01-17 16:19] LABS: URINE APPEARANCE CLEAR; URINE BILIRUBIN NEGATIVE (<2.0 mg/dL); URINE COLOR YELLOW; URINE GLUCOSE (UA) 3+ (NEGATIVE); URINE KETONE NEGATIVE (NEGATIVE); URINE LEUK ESTERASE NEGATIVE (NEGATIVE); URINE NITRITE NEGATIVE (NEGATIVE); URINE PROTEIN NEGATIVE (NEGATIVE); URINE UROBILINOGEN NEGATIVE mg/dL (0.2-1.0)
[2018-01-17 16:30] LABS: ARTERIAL BLD GAS O2 SATURATION 98.8 % (90-98.9); ARTERIAL BLOOD GAS BASE EXCESS -0.9 meq/l (-2-2); ARTERIAL BLOOD GAS PCO2 37.8 mmHg (35-45); CARBOXYHEMOGLOBIN 1.5 gm% (0.5-2.0)
[2018-01-17] MEDS ORDERED: VANCOMYCIN 1,000 MG in DEXTROSE 5%-WATER - 250 ML IVPB ONE (16:49)
[2018-01-17] MEDS ORDERED: PIPERACILLIN/TAZOB 3.375 GM 3.375 GM in DEXTROSE 5%-WATER - 50 ML IVPB ONE (16:49)
[2018-01-17] MEDS ORDERED: VANCOMYCIN 1 GRAM (PRE-DOCKED) 1,000 MG/250 ML BAG IVPB ONE (16:57)
[2018-01-17] MEDS ORDERED: PIPERACILLIN/TAZOB 3.375 GM 3.375 GM/50 ML BAG IVPB ONE (16:58)
[2018-01-17] MEDS ORDERED: SODIUM CHLORIDE NASAL SPRAY 44 ML BOTTLE NS PRN (17:23)
[2018-01-17] MEDS: WARFARIN NA 2 MG TABLET (UD) PO SCH (19:30)
[2018-01-17] MEDS ORDERED: ALBUTEROL SO4 2.5/IPRATROPIUM 0.5 INH SOL 3 ML VIAL.NEB. NEB ONE (20:37)
[2018-01-17] MEDS: ALBUTEROL SO4 2.5/IPRATROPIUM 0.5 INH SOL 3 ML VIAL.NEB. NEB SCH (20:43)
[2018-01-17 21:28] LABS: ACETAMINOPHEN < 2.000 ug/mL; SALICYLATE < 1.700 mg/dL
[2018-01-17 22:02] LABS: COCAINE, UR NEGATIVE ng/ml (CUTOFF=300); METHADONE, UR NEGATIVE ng/ml (CUTOFF=300); OPIATES, URI NEGATIVE ng/ml (CUTOFF=300); PHENCYCLIDINE,URINE NEGATIVE ng/ml (CUTOFF=25); URINE AMPHETAMINES NEGATIVE ng/ml (CUTOFF=500); URINE BARBITURATES NEGATIVE ng/ml (CUTOFF=200); URINE BENZODIAZEPINES NEGATIVE ng/ml (CUTOFF=200)
[2018-01-17] MEDS ORDERED: ATORVASTATIN CA 80 MG TABLET (FP) ONE (22:18)
[2018-01-17] MEDS ORDERED: CARVEDILOL 12.5 MG TABLET (FP) ONE (22:18)
[2018-01-17] MEDS ORDERED: GABAPENTIN 100 MG CAPSULE (FP) ONE (22:19)
[2018-01-17] MEDS: INSULIN SLIDING SCALE (NOVOLOG) 1 VIAL SQ SCH (22:22)
[2018-01-17] MEDS: GABAPENTIN 100 MG CAPSULE (FP) PO SCH (22:23)
[2018-01-17] MEDS: CARVEDILOL 6.25 MG TABLET (FP) PO SCH (22:23)
[2018-01-17] MEDS: ATORVASTATIN CA 80 MG TABLET (FP) PO SCH (22:23)
[2018-01-17] MEDS: POLYETHYLENE GLYCOL 3350 119 GM BTL PO SCH (22:23)
[2018-01-17] MEDS ORDERED: MONTELUKAST NA 10 MG TABLET ONE (22:24)
[2018-01-17] MEDS: MONTELUKAST NA 10 MG TABLET PO SCH (22:24)
[2018-01-18] MEDS ORDERED: FUROSEMIDE 40 MG TABLET (FP) PO SCH (06:00)
[2018-01-18] MEDS ORDERED: LEVOTHYROXINE NA 125 MCG TABLET (FP) ONE (06:21)
[2018-01-18] MEDS ORDERED: LEVOTHYROXINE NA 50 MCG TABLET (FP) ONE (06:21)
[2018-01-18] MEDS: LEVOTHYROXINE 125 MCG, LEVOTHYROXINE 50 MCG PO SCH (06:21)
[2018-01-18] MEDS: INSULIN SLIDING SCALE (NOVOLOG) 1 VIAL SQ SCH ×4 (06:22→21:08)
[2018-01-18] MEDS ORDERED: LEVOTHYROXINE NA 175 MCG TABLET PO SCH (07:00)
[2018-01-18] MEDS: ALBUTEROL SO4 2.5/IPRATROPIUM 0.5 INH SOL 3 ML VIAL.NEB. NEB SCH ×4 (08:00→20:29)
[2018-01-18] MEDS ORDERED: TAMSULOSIN HCL 0.4 MG CAP.ER.24H (FP) PO SCH (08:30)
[2018-01-18] MEDS ORDERED: D5-1/2NS+20 MEQ KCL - 20 MEQ/1,000 ML INFUS.BAG IV SCH (08:30)
[2018-01-18 08:44] LABS: BASO % 0.9 % (0-2.0); EOS % 2.3 % (0-4.5); HEMATOCRIT 29.4 % (35.4-49); HEMOGLOBIN 9.9 GM/dL (11.7-16.9); LYMPH % 6.9 % (8-40); MCH 28.5 pg (25.7-33.7); MCHC 33.6 g/dl (32.0-35.9); MEAN CELL VOLUME 84.9 fl (80-96); MEAN PLT VOLUME 8.8 fl (7.5-11.1); MONO % 8.1 % (3.8-10.2); NEUT % 81.8 % (42.8-82.8); PLATELET COUNT 239 K/MM3 (134-434); RBC 3.47 M/mm3 (4.00-5.60); RDW 17.7 % (11.9-15.9); WHITE BLOOD COUNT 8.2 K/mm3 (4.0-10.0)
[2018-01-18 08:58] LABS: INR 2.51 (0.82-1.09); PROTHROMBIN TIME (PATIENT) 28.4 SEC (9.7-13.0)
[2018-01-18] MEDS ORDERED: DULoxetine HCL 30 MG CAPSULE.DR (FP) PO ONE (09:01)
[2018-01-18] MEDS ORDERED: DEXTROSE 5%-WATER - 50 ML IVPB ONE (09:02)
[2018-01-18] MEDS ORDERED: PIPERACILLIN/TAZOBACTAM 3.375 GM VIAL IVPB ONE (09:02)
[2018-01-18 09:09] LABS: ALBUMIN 2.6 g/dl (3.4-5.0); ANION GAP 6 (8-16); BLOOD UREA NITROGEN 42 mg/dL (7-18); CALCIUM 8.3 mg/dL (8.5-10.1); CHLORIDE 99 mmol/L (98-107); CO2 26 mmol/L (21-32); GLUCOSE,RANDOM 105 mg/dL (74-106); POTASSIUM 4.8 mmol/L (3.5-5.1); SODIUM 131 mmol/L (136-145)
[2018-01-18 09:17] LABS: ALK PHOS 221 U/L (45-117); BILIRUBIN,TOTAL 0.7 mg/dL (0.2-1.0); CHOLESTEROL 61 mg/dL (50-200); CREATININE 1.2 mg/dL (0.7-1.3); HDL CHOLESTEROL 31 mg/dL (40-60); SGOT/AST 94 U/L (15-37); SGPT/ALT 160 U/L (12-78); TOT PROT 6.6 g/dl (6.4-8.2); TRIGLYCERIDES 69 mg/dL (35-160)
[2018-01-18] MEDS: CARVEDILOL 6.25 MG TABLET (FP) PO SCH ×2 (09:35→21:08)
[2018-01-18] MEDS: GABAPENTIN 100 MG CAPSULE (FP) PO SCH (09:35)
[2018-01-18] MEDS: FOLIC ACID 1 MG TABLET (FP) PO SCH (09:35)
[2018-01-18] MEDS: POLYETHYLENE GLYCOL 3350 119 GM BTL PO SCH ×2 (09:35→21:08)
[2018-01-18] MEDS: POTASSIUM CHLORIDE TABS 20 MEQ TABLET.ER (FP) PO SCH (09:35)
[2018-01-18] MEDS: DOCUSATE SODIUM 100 MG CAPSULE (FP) PO SCH (09:36)
--- NOTE | 2018-01-18 09:41 | EKG ---
Test Reason : Blood Pressure : / mmHG Vent. Rate : 072 BPM Atrial Rate : 072 BPM P-R Int : 148 ms QRS Dur : 188 ms QT Int : 500 ms P-R-T Axes : 052 -75 076 degrees QTc Int : 547 ms Atrial-sensed ventricular-paced rhythm ABNORMAL ECG WHEN COMPARED WITH ECG OF 17-JAN-2018 11:59, NO SIGNIFICANT CHANGE WAS FOUND Confirmed by MADI RUTH MD ([id number]) on 01/18/2018 9:41:22 AM Referred By: Confirmed By:MADI RUTH MD
--- NOTE | 2018-01-18 09:41 | EKG ---
Test Reason : Blood Pressure : / mmHG Vent. Rate : 075 BPM Atrial Rate : 075 BPM P-R Int : 166 ms QRS Dur : 188 ms QT Int : 492 ms P-R-T Axes : 002 -79 079 degrees QTc Int : 549 ms Atrial-sensed ventricular-paced rhythm ABNORMAL ECG WHEN COMPARED WITH ECG OF 18-JAN-2018 05:23, VENT. RATE HAS INCREASED BY 7 BPM Confirmed by MADI RUTH MD ([id number]) on 01/18/2018 9:40:24 AM Referred By: Confirmed By:MADI RUTH MD
[2018-01-18] MEDS ORDERED: DULoxetine HCL 60 MG CAPSULE.DR PO SCH (10:00)
[2018-01-18] MEDS ORDERED: PIPERACILLIN/TAZOB 3.375 GM 3.375 GM in DEXTROSE 5%-WATER - 50 ML IVPB SCH (10:00)
[2018-01-18] MEDS ORDERED: LORATADINE 10 MG TABLET PO SCH (10:00)
[2018-01-18] MEDS ORDERED: SPIRONOLACTONE 25 MG TABLET (FP) PO SCH (10:00)
[2018-01-18] MEDS ORDERED: PATIENT'S OWN MEDICATION (NON-FORMULARY) (Warfarin Sodium [Coumadin] 4 MG) PO SCH (10:00)
--- NOTE | 2018-01-18 10:11 | CONSULT ---
Admitting History and Physical - Primary Care Physician PCP: Rodriguez Rowan - Admission History of Present Illness: Last seen by me 11/29/17:On puree/nectar thick liquid. Swallowing reassessed.Cough response on 3 oz water test. Up for d/c home today. Suggest Dys ground and nectar thick liquid at home. Out pt MBS to upgrade diet safely, once pt is stronger. Admitted twice since, at which time I did not see the pt. He was on a regular diet and thin liquid, reportedly tolerating 75-100% intake, Pt was reported to be eating most of meals with good tolerance. This admission :The patient is a 83 year old male with a significant past medical history of CHF, Afib (on Coumadin 4mg), [place] (s/p stents x2 and PPM), HTN , HLD, IDDM, hypothyroidism, and diverticulitis (s/p partial colectomy) who presents to the emergency department s/p discharge on 01/15, for evaluation froy confusion, weakness, and fatigue Altered mental status unclear etiology differential diagnosis includes possible early pneumonia possible early GI etiology possible polypharmacy w/u in progress NPO at this time. Ventimask in place. History Source: Patient, Medical Record Limitations to Obtaining History: Clinical Condition, Language Barrier - Past Medical History GIFT WRAPPER: Yes: TIA. No: Alzheimer's Cardiovascular: Yes: AFIB, Aneurysm (mild ascending aortic aneurysm (4.2 cm) per 01/[address]), CAD (stents x2 in 2010; thrombectomy & PCI of proximal and mid LAD with Promus Premier stents and PTCA of D1 on 12/18/15 at [facility] for acute/subacute anteroseptal GA), CHF, HTN, Hyperlipdemia, Other (ischemic cardiomyopathy (LVEF 34% per 02/16/16 nuclear study)) Gastrointestinal: Yes: Constipation, Diverticulosis Heme/Onc: Yes: Anemia Musculoskeletal: Yes: Other (rib fx's right) Endocrine: Yes: Diabetes Mellitus, Hypothyroidism - Past Surgical History Past Surgical History: Yes: Arthrosocopy (Right knee arthroscopy w/ partial medial and lateral meniscectomy 09/01/15), Colectomy - Smoking History Smoking history: Former smoker Have you smoked in the past 12 months: No Aproximately how many cigarettes per day: 0 If you are a former smoker, when did you quit?: 40 years ago - Alcohol/Substance Use Hx Alcohol Use: No History of Substance Use: reports: None - Social History 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 History of Recent Travel: No History - Admission Reason For Visit: ALTERED MENTAL STATUS - Diagnostics X-ray: Report Reviewed CT Scan: Report Reviewed - General Mental Status: Awake and Alert, Able to Follow Commands, Intermittently Confused Attention: Intact Ability to Follow Directions: Good - Hearing Hearing: Normal Speech Evaluation - Communication Primary Language: [place] Secondary Language: [place] Communication: Yes: Within Normal Limits Oral Expression Ability: Yes: No Impairment - Speech Production Able to Make Needs Known: Yes: WNL Intelligibility: Yes: WNL - Speech Characteristics Voice Loudness: Normal Voice Pitch: Yes: Normal Voice Phonatory-based Quality: Yes: Hoarse (mild) Speech Pattern: Normal Speech Clarity: < 100% Nasal Resonance: Normal Articulation: Yes: Precise - Language/Auditory Comprehension Follows: Yes: 1 Stage Simple Commands - Language/Verbal Expression Able to Communicate Wants and Needs: Yes: WNL - Swallow Evaluation/Bedside Assessment Current Nutritional Intake: NPO Oral Secretions: Yes: WFL Dentition: Yes: Adequate Facial Symmetry at Rest: Symmetrical Facial Symmetry on Retraction: Symmetrical Against Resistance Opening: Normal Against Resistance Closing: Normal Pucker Lips: Normal Smile: Normal Lingual Movement: Normal, Symmetric Lingual Speed of Movement: Normal Lingual Movement Strgth Against Opposition: Reduced Lingual Movement Characteristics: Normal Velopharyngeal Movement: Normal Laryngeal Movement: Able to Palpate, Labored,delay initiation Rate of Intake: WFL Labial Seal: WFL Oral Prep Time: WFL A-P Transit: WFL Timing of Swallow: Delayed Coughing/Throat Clear: Yes (Cough response on thin liquid.) Recommendations - Speech Evaluation, Impression/Plan Impression: Cough response sec to thin liquids. - Dysphagia Impressions/Plan Swallowing Skills: Impaired Dysphagia Impressions: Ongoing Evaluation *Silent aspiration: cannot be R/O at bedside Recommendations: Modified Barium Swallow (when medically stable), Other (If PO intake initiated before MBS, suggest puree/nectar/no thin liquids until MBS can be done.) - Recommendations Medication Administration: Crushed with applesauce
--- NOTE | 2018-01-18 10:25 | HP ---
Admitting History and Physical - Admission History of Present Illness: 83 year old male with a significant past medical history of CHF, Afib (on Coumadin 4mg), [place] (s/p stents x2 and PPM), HTN, HLD, IDDM, hypothyroidism, and diverticulitis (s/p partial colectomy) who presents to the emergency department s/p discharge on 01/15, for evaluation froy confusion, weakness, and fatigue as per and VNS today. The patient endorses nausea, chills, and increased thirst. He also reports a moment of chest pain about 20 minutes prior to arrival which has since resolved. The at bedside states the patient was walking at his baseline yesterday with occasional use of his walker. She states he woke up confused today. The nurse reports taking the patients glucose this morning and reports the BG was in 300s. The BG is 375 in the ED now. 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 No: Alzheimer's Cardiovascular: Yes: AFIB, Aneurysm (mild ascending aortic aneurysm (4.2 cm) per 01/[address]), CAD (stents x2 in 2010; thrombectomy & PCI of proximal and mid LAD with Promus Premier stents and PTCA of D1 on 12/18/15 at [facility] for acute/subacute anteroseptal [place]), CHF, HTN, Hyperlipdemia, Other (ischemic cardiomyopathy (LVEF 34% per 02/16/16 nuclear study)) Gastrointestinal: Yes: Constipation, Diverticulosis Heme/Onc: Yes: Anemia Musculoskeletal: Yes: Other (rib fx's right) Endocrine: Yes: Diabetes Mellitus, Hypothyroidism - Past Surgical History Past Surgical History: Yes: Arthrosocopy (Right knee arthroscopy w/ partial medial and lateral meniscectomy 09/01/15), Colectomy - Smoking History Smoking history: Former smoker Have you smoked in the past 12 months: No Aproximately how many cigarettes per day: 0 If you are a former smoker, when did you quit?: 40 years ago - Alcohol/Substance Use Hx Alcohol Use: No History of Substance Use: reports: None - Social History 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 History of Recent Travel: No Home Medications - Allergies Allergies/Adverse Reactions: Allergies Allergy/AdvReac Type Severity Reaction Status Date / Time No Known Drug Allergies Allergy Verified 01/17/18 12:06 - Home Medications Home Medications: Ambulatory Orders Duloxetine HCl [Cymbalta -] 60 mg PO DAILY 09/25/17 Folic Acid 1 mg PO DAILY 09/25/17 Levothyroxine [Synthroid -] 175 mcg PO DAILY 09/25/17 Spironolactone 25 mg PO DAILY 09/25/17 Albuterol 2.5/Ipratropium 0.5 [Duoneb -] 1 amp NEB RQID amp 12/14/17 Atorvastatin Ca [Lipitor] 80 mg PO HS tablet 12/14/17 Montelukast Na [Singulair -] 10 mg PO HS tablet 12/14/17 Tamsulosin HCl [Flomax -] 0.4 mg PO DAILY@0830 cap.er.24h 12/14/17 Alprazolam 0.25 mg PO TID 01/04/18 Docusate Sodium 100 mg PO DAILY 01/04/18 Furosemide [Lasix -] 40 mg PO BID 01/04/18 Gabapentin 100 mg PO BID 01/04/18 Potassium Chloride [K-Dur -] 20 meq PO DAILY 01/04/18 Warfarin Sodium [Coumadin] 4 mg PO DAILY 01/04/18 Carvedilol [Coreg -] 6.25 mg PO BID #60 tablet 01/15/18 Loratadine [Claritin -] 10 mg PO DAILY tablet 01/15/18 Polyethylene Glycol 3350 [Miralax 119 gm Btl -] 17 gm PO BID bottle 01/15/18 Sodium Chloride Nasal [place] [[place] Nasal [place] -] 2 spray NS TID PRN spray 01/15/18 levoFLOXacin [Levaquin -] 500 mg PO DAILY #5 tablet 01/15/18 Review of Systems - Review of Systems Cardiovascular: reports: Chest Pain (resolved) Respiratory: reports: SOB, SOB on Exertion Gastrointestinal: reports: Abdominal Pain. denies: Nausea, Vomiting Genitourinary: denies: Dysuria Neurological: reports: Confusion (resolved) Physical Examination Vital Signs: Vital Signs Temperature 98.4 F 01/18/18 05:25 Pulse Rate 74 01/18/18 09:11 Respiratory Rate 20 01/18/18 08:53 Blood Pressure 96/55 01/18/18 05:25 O2 Sat by Pulse Oximetry (%) 97 04/27/18 09:11 Cardiovascular: Yes: S1, S2 Respiratory: Yes: Regular, CTA Bilaterally, On Venti-Mask Gastrointestinal: Yes: Normal Bowel Sounds, Soft, Tenderness (mild rlq) Edema: Yes Edema: LLE: Trace, RLE: Trace Labs: CBC, BMP 01/18/18 08:28 01/18/18 08:28 Problem List - Problems (1) Abdominal fluid collection Assessment/Plan: -R/O BOWEL PERFORATION -R/O ABSCESS --NPO -IVF -IV ABX -GI,ID AND SURGICAL CONSULTS Code(s): R18.8 - OTHER ASCITES (2) Change in mental status Assessment/Plan: -IMPROVED -R/O SEPSIS -MAY HAVE BEEN TOXIC METABOLIC -NEURO Code(s): R41.82 - ALTERED MENTAL STATUS, UNSPECIFIED Qualifiers: Altered mental status type: unspecified Qualified Code(s): R41.82 - Altered mental status, unspecified (3) Atrial fibrillation Assessment/Plan: -HOLD COUMADIN -FOLLOW INR -WHEN BELOW 2 WILL NEED BRIDGING -CARDIO Code(s): I48.91 - UNSPECIFIED ATRIAL FIBRILLATION Qualifiers: Atrial fibrillation type: paroxysmal Qualified Code(s): I48.0 - Paroxysmal atrial fibrillation (4) CAD (coronary artery disease) Assessment/Plan: -SAME MEDS -MONITOR SYMPTOMS Code(s): I25.10 - ATHSCL HEART DISEASE OF [place] CORONARY ARTERY W/O ANG PCTRS Qualifiers: Coronary Disease-Associated Artery/Lesion type: unspecified vessel or lesion type [place] vs. transplanted heart: [place] heart Associated angina: angina presence unspecified Qualified Code(s): I25.10 - Atherosclerotic heart disease of [place] coronary artery without angina pectoris (5) Diabetes Assessment/Plan: HOLD INSULIN SINCE NPO -IVF -BGM Code(s): E11.9 - TYPE 2 DIABETES MELLITUS WITHOUT COMPLICATIONS Qualifiers: Diabetes mellitus type: type 2 Diabetes mellitus complication detail: with other neurological complication
[2018-01-18 10:29] LABS: ERYTHROCYTE SEDIMENTATION RATE 105 mm/hr (0-20)
--- NOTE | 2018-01-18 11:13 | PN ---
Progress Note (short form) - Note Progress Note: ID consult dictated imp/reccd 82 year old man pmh cad/chf,afib just hospitalized 01/09 to 01/15 with sob and abd pain readmitted 01/17 with confusion , weakness and fatigue no fevers at home, fever to 101.4 in ed +chills ct scan in ED 01/17 with interval development of intra-abdominal fluid collection in comparison to CT scan 01/14 started on zosyn NPO urinary retention overnight martin placed this am r/o intra-abdominal abscess- new flluid collection in setting of chronic constipation and abdominal pain gi/surgery to see continue zosyn abnl lfts-s/p choly, no ductal dilation seen on ct scan urinary retention chf/cad Problem List - Problems (1) Fever Code(s): R50.9 - FEVER, UNSPECIFIED (2) Abdominal fluid collection Code(s): R18.8 - OTHER ASCITES (3) Urinary retention Code(s): R33.9 - RETENTION OF URINE, UNSPECIFIED (4) Diabetes mellitus, insulin dependent (IDDM), uncontrolled Code(s): E10.65 - TYPE 1 DIABETES MELLITUS WITH HYPERGLYCEMIA Qualifiers:
--- NOTE | 2018-01-18 11:54 | CONS ---
DATE OF CONSULTATION: REQUESTING PHYSICIAN: Rodriguez Rowan MD HISTORY: This is an 82-year-old man who was just in the hospital from the to the with complaints of shortness of breath. He was hyponatremic as well. He had chronic abdominal pain and constipation. He was discharged home on the . He was on Levaquin for a Klebsiella UTI. He had started treatment on the . After the discharge home on the , he was seen by the VNS yesterday morning. He was noted to be confused and weak and fatigued. reports on the day prior, per the ER note, he had been doing better. He woke up yesterday morning confused. The blood sugar was in the 300s, and he was sent to the emergency room. In the ER, he had CAT scans done of his chest, abdomen, and pelvis. He had a prior abdomen done January 14 for abdominal pain, and a CAT scan was notable for interval development from the of a localized fluid collection between the sigmoid colon and urinary bladder dome. Question of abscess was raised, and I am asked to see him. He denies fever, but he has some chills. He denies any nausea or vomiting. He has chronic constipation. Of note, overnight he was unable to void. He had a bladder scan and was found to be in urinary retention, and a Bean catheter was placed with over a liter of urine obtained. He is resting comfortably now. Still says he has abdominal pain but at the same time says he is hungry and wants to eat. T-max in the emergency room was 101.4 and is currently afebrile. PAST MEDICAL HISTORY: Notable for multiple emergency room and hospital admissions. He has history including TIA in the past and atrial fibrillation. He has coronary artery disease status post stents, CHF, hypertension, hyperlipidemia, ischemic cardiomyopathy with ejection fraction of 34%. He has an aortic aneurysm 4.2 cm in size, history of chronic constipation, and diverticulosis. He has had right rib fractures, history of diabetes and hypothyroidism. He has a history of left tibial hardware in his leg and is on chronic antibiotic therapy with amoxicillin. He has had arthroscopy as well of the leg. He is status post colectomy. As well, he has a history of prior cholecystectomy and pacemaker. His colectomy was apparently secondary to diverticulitis in the past. SOCIAL HISTORY: He lives at home with his . There is no report of alcohol, drug, or cigarette use. He occasionally uses his walker. ALLERGIES: He has no known drug allergies. MEDICATIONS: At home include Cymbalta, folic acid, Synthroid, spironolactone, DuoNebs, atorvastatin, Singulair, tamsulosin, alprazolam, Colace, Lasix, gabapentin, K-Dur, warfarin, Coreg, Claritin, MiraLAX. He was started on Levaquin for 5 days at the time of his discharge on the . REVIEW OF SYSTEMS: He has had multiple hospitalizations. Of note, most recently he had this Klebsiella in his urine. In May 2017 he had an enterococcal bacteremia for which he was treated with long-term antibiotics. He was on suppressive treatment for his hardware. It is unclear if he still remains on suppression, though details are not known. He had urinary retention overnight. A Bean catheter was placed with 1000 mL of urine. He notes chronic constipation, and he still complains of chronic abdominal pain, although he states he is hungry and wants to eat. PHYSICAL EXAMINATION: General: He is an elderly man. Vital Signs: Temperature 98.4, T-max had been with fever of 101.4 in the emergency room, pulse 74, blood pressure 96/55, respiratory rate 20, saturating 97% on 8 L. He is wearing a venturi mask. HEENT: He is normocephalic. His eyes are anicteric. Neck: Supple. Lungs: Diminished breath sounds at the bases. Heart: Regular rate and rhythm. Abdomen: Slightly distended. It is soft. He has no peritoneal signs but diffuse discomfort on palpation. He has diminished bowel sounds. Extremities: Without edema. Genitourinary: Bean is draining clear urine. LABORATORIES: Notable for a white count 8.2, hemoglobin 9.9, platelets 239. Chemistries are notable for a BUN 42, creatinine 1.2, hemoglobin A1C 10.5. Liver enzymes are elevated with an AST 94, ALT 160, alkaline phosphatase 221. Troponin less than 0.07. Urinalysis is negative. In summary, this is an 82-year-old man with: 1. Multiple medical problems now admitted with fever who has evidence of a possible intra-abdominal abscess. He was started on Zosyn, which I would suggest we continue at this time. GI Surgery consult has been ordered, and he is currently n.p.o. Cultures have been sent, which we should follow up as well. 2. Abnormal LFTs status post cholecystectomy. No ductal dilatation seen on CAT scan. May be secondary to his infection and sepsis. 3. Urinary retention status post Bean placement. 4. History of CHF, CAD. 5. Poorly controlled diabetes. Hemoglobin A1C 10.5 and positive troponins. Further recommendations to follow based on his clinical course. GIA FERRARA M.D. [id number]
--- NOTE | 2018-01-18 12:55 | CONSULT ---
Consult Consult Specialty:: general surgery Reason for Consultation:: intraabdominal free fluid - History of Present Illness Chief Complaint: altered mental status History of Present Illness: 83 yo male PMH CHF, Afib (on Coumadin 4mg), [place] (s/p stents x2 and PPM), HTN, HLD , IDDM, hypothyroidism, and diverticulitis (s/p partial colectomy) who presents to the emergency department after discharge on 01/15, for evaluation froy confusion, weakness, and fatigue as per and VNS today. The patient reports having nausea, chills, and increased thirst. He also reports a moment of chest pain about 20 minutes prior to arrival which has since resolved. The at bedside states the patient was walking at his baseline yesterday with occasional use of his walker. The next day he was awoke with confusion. The nurse reports taking the patients glucose this morning and reports the BG was in 300s. He has normal WBC 9 down to 8, but fevers 101.4 and chills, improving today. CT scan shows a new intraabdomnial collection at the interface of the sigmoid and bladder. 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 No: Alzheimer's Cardio/Vascular: Yes: AFIB, Aneurysm (mild ascending aortic aneurysm (4.2 cm) per 01/[address]), CAD (stents x2 in 2010; thrombectomy & PCI of proximal and mid LAD with Promus Premier stents and PTCA of D1 on 12/18/15 at [facility] for acute/subacute anteroseptal [place]), CHF, HTN, Hyperlipdemia, Other (ischemic cardiomyopathy (LVEF 34% per 02/16/16 nuclear study)) Gastrointestinal: Yes: Constipation, Diverticulosis Musculoskeletal: Yes: Other (rib fx's right) Endocrine: Yes: Diabetes Mellitus, Hypothyroidism - Past Surgical History Past Surgical History: Yes: Arthrosocopy (Right knee arthroscopy w/ partial medial and lateral meniscectomy 09/01/15), Colectomy - Alcohol/Substance Use Hx Alcohol Use: No History of Substance Use: reports: None - Smoking History Smoking history: Former smoker Have you smoked in the past 12 months: No Aproximately how many cigarettes per day: 0 If you are a former smoker, when did you quit?: 40 years ago - Social History Usual Living Arrangement: [facility] (since last d/c) 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 History of Recent Travel: No Home Medications - Allergies Allergies/Adverse Reactions: Allergies Allergy/AdvReac Type Severity Reaction Status Date / Time No Known Drug Allergies Allergy Verified 01/17/18 12:06 - Home Medications Home Medications: Ambulatory Orders Duloxetine HCl [Cymbalta -] 60 mg PO DAILY 09/25/17 Folic Acid 1 mg PO DAILY 09/25/17 Levothyroxine [Synthroid -] 175 mcg PO DAILY 09/25/17 Spironolactone 25 mg PO DAILY 09/25/17 Albuterol 2.5/Ipratropium 0.5 [Duoneb -] 1 amp NEB RQID amp 12/14/17 Atorvastatin Ca [Lipitor] 80 mg PO HS tablet 12/14/17 Montelukast Na [Singulair -] 10 mg PO HS tablet 12/14/17 Tamsulosin HCl [Flomax -] 0.4 mg PO DAILY@0830 cap.er.24h 12/14/17 Alprazolam 0.25 mg PO TID 01/04/18 Docusate Sodium 100 mg PO DAILY 01/04/18 Furosemide [Lasix -] 40 mg PO BID 01/04/18 Gabapentin 100 mg PO BID 01/04/18 Potassium Chloride [K-Dur -] 20 meq PO DAILY 01/04/18 Warfarin Sodium [Coumadin] 4 mg PO DAILY 01/04/18 Carvedilol [Coreg -] 6.25 mg PO BID #60 tablet 01/15/18 Loratadine [Claritin -] 10 mg PO DAILY tablet 01/15/18 Polyethylene Glycol 3350 [Miralax 119 gm Btl -] 17 gm PO BID bottle 01/15/18 Sodium Chloride Nasal [place] [[place] Nasal [place] -] 2 spray NS TID PRN spray 01/15/18 levoFLOXacin [Levaquin -] 500 mg PO DAILY #5 tablet 01/15/18 Physical Exam Vital Signs: Vital Signs Temperature 98.4 F 01/18/18 05:25 Pulse Rate 74 01/18/18 09:11 Respiratory Rate 20 01/18/18 08:53 Blood Pressure 96/55 01/18/18 05:25 O2 Sat by Pulse Oximetry (%) 97 01/18/18 09:11 Vital Signs Period Temp Pulse Resp BP Sys/[place] Pulse Ox Last 24 Hr 98.4 F-101.4 F 60-101 - 96-175/51-72 97-100 Intake & Output 01/17/18 01/18/18 01/18/18 23:59 07:59 15:59 Intake Total 10 240 Output Total 980 Balance 10 240 -980 Weight 225 lb 221 lb 3.2 oz Intake: IV 10 right hand #20G 01/17 10 Oral 240 Output: Urine 980 Bean 980 Other: Voiding Method Urinal Indwelling Catheter # Unmeasured Voids Bean 1 Bowel Movement Yes # Bowel Movements 2 Height 5 ft 5 in Body Mass Index (BMI) 37.4 Weight Measurement Method Estimated by Patient Standing Scale Constitutional: Yes: No Distress, Calm Eyes: Yes: Conjunctiva Clear, EOM Intact HENT: Yes: Atraumatic, Normocephalic Neck: Yes: Supple, Trachea Midline Cardiovascular: Yes: Regular Rate and Rhythm, S1, S2 Respiratory: Yes: Regular, CTA Bilaterally, On Nasal O2, Rales (lower lung bilatraly posterolateral) Gastrointestinal: Yes: Normal Bowel Sounds, Soft, Abdomen, Obese, Distention. No: Tenderness, Tenderness, Epigastrium, Tenderness, Rebound ...Rectal Exam: Yes: Sphincter Tone Normal, Other (pasty brown stool). No: Hemorrhoids/External, Hemorrhoids/Internal Renal/: No: CVA Tenderness - Left, CVA Tenderness - Right Extremities: No: Cool, Cyanosis Integumentary: No: Rash Wound/Incision: Yes: Clean/Dry, Well Approximated Neurological: Yes: Alert, Oriented Psychiatric: Yes: Alert, Oriented Labs: CBC, BMP 01/18/18 08:28 01/18/18 08:28 INR, PTT INR 2.51 (0.82-1.09) H 01/18/18 08:28 CBC,CMP WBC 8.2 K/mm3 (4.0-10.0) 01/18/18 08:28 RBC 3.47 M/mm3 (4.00-5.60) L 01/18/18 08:28 Hgb 9.9 GM/dL (11.7-16.9) L 01/18/18 08:28 Hct 29.4 % (35.4-49) L 01/18/18 08:28 MCV 84.9 fl (80-96) 01/18/18 08:28 MCH 28.5 pg (25.7-33.7) 01/18/18 08: MCHC 33.6 g/dl (32.0-35.9) 01/18/18 08:28 RDW 17.7 % (11.9-15.9) H 01/18/18 08:28 Plt Count 239 K/MM3 (134-434) 01/18/18 08:28 MPV 8.8 fl (7.5-11.1) 01/18/18 08:28 Neutrophils % 81.8 % (42.8-82.8) 01/18/18 08: Lymphocytes % 6.9 % (8-40) L 01/18/18 08: Monocytes % 8.1 % (3.8-10.2) 01/18/18 08: Eosinophils % 2.3 % (0-4.5) 01/18/18 08: Basophils % 0.9 % (0-2.0) 01/18/18 08:28 ESR 105 mm/hr (0-20) H 01/18/18 08:28 Sodium 131 mmol/L (136-145) L 01/18/18 08:28 Potassium 4.8 mmol/L (3.5-5.1) 01/18/18 08:28 Chloride 99 mmol/L (98-107) 01/18/18 08: Carbon Dioxide 26 mmol/L (21-32) 01/18/18 08:28 Anion Gap 6 (8-16) L 01/18/18 08:28 BUN 42 mg/dL (7-18) H 01/18/18 08:28 Creatinine 1.2 mg/dL (0.7-1.3) 01/18/18 08:28 Creat Clearance w eGFR 58.11 (>60) 01/18/18 08:28 POC Glucometer 149 UNITS (80-120) 01/18/18 12:19 Random Glucose 105 mg/dL (74-106) D 01/18/18 08:28 Hemoglobin A1c % 10.5 % (4.8-6.0) H D 01/18/18 08:28 Lactic Acid 1.3 mmol/L (0.0-2.0) 01/17/18 15:05 Calcium 8.3 mg/dL (8.5-10.1) L 01/18/18 08:28 Total Bilirubin 0.7 mg/dL (0.2-1.0) 01/18/18 08:28 AST 94 U/L (15-37) H D 01/18/18 08:28 ALT 160 U/L (12-78) H 01/18/18 08:28 Alkaline Phosphatase 221 U/L (45-117) H 01/18/18 08:28 Ammonia 11.62 umol/L (11-32) 01/17/18 20:47 Creatine Kinase 30 IU/L (39-308) L 01/18/18 08:28 Troponin I 0.07 ng/ml (0.00-0.05) H D 01/18/18 08:28 Total Protein 6.6 g/dl (6.4-8.2) 01/18/18 08:28 Albumin 2.6 g/dl (3.4-5.0) L 01/18/18 08:28 Triglycerides 69 mg/dL (35-160) D 01/18/18 08:28 Cholesterol 61 mg/dL (50-200) D 01/18/18 08:28 Total LDL Cholesterol 31 mg/dL (5-100) D 01/18/18 08:28 HDL Cholesterol 31 mg/dL (40-60) L 01/18/18 08:28 TSH 0.50 uIU/ml (0.358-3.74) D 01/18/18 08:28 Imaging - Results Cat Scan: Report Reviewed, Image Reviewed (small effusions bilateally, small new fluid collectionat the interface of bladder an sigmoid.) Problem List - Problems (1) Abdominal fluid collection Assessment/Plan: 82yo male MMP with abdominal distension and constipation and a new abdominal fluid collection, reviwed with Dr. Renee, there is no IR access but this not rosalia to be an abscess. Passing flatus and having BM. Will follow clinical and no acute surgical intervention. NPO and IVF hydration IV antibotics at the discretion of ID Fever workup, [place] culture Trend labs, repeat lactic acid, tumor markers Serial abdominal exams Thank you for the opportunity to participate in the care of this patient. Code(s): R18.8 - OTHER ASCITES (2) Change in mental status Code(s): R41.82 - ALTERED MENTAL STATUS, UNSPECIFIED Qualifiers: Altered mental status type: unspecified Qualified Code(s): R41.82 - Altered mental status, unspecified (3) Fever Code(s): R50.9 - FEVER, UNSPECIFIED Qualifiers: Fever type: unspecified Qualified Code(s): R50.9 - Fever, unspecified (4) Urinary retention Code(s): R33.9 - RETENTION OF URINE, UNSPECIFIED (5) CAD (coronary artery disease) Code(s): I25.10 - ATHSCL HEART DISEASE OF [place] CORONARY ARTERY W/O ANG PCTRS Qualifiers: Coronary Disease-Associated Artery/Lesion type: unspecified vessel or lesion type [place] vs. transplanted heart: [place] heart Associated angina: angina presence unspecified Qualified Code(s): I25.10 - Atherosclerotic heart disease of [place] coronary artery without angina pectoris (6) CHF (congestive heart failure) Code(s): I50.9 - HEART FAILURE, UNSPECIFIED Qualifiers: Heart failure type: systolic Heart failure chronicity: acute on chronic Qualified Code(s): I50.23 - Acute on chronic systolic (congestive) heart failure (7) COPD (chronic obstructive pulmonary disease) Code(s): J44.9 - CHRONIC OBSTRUCTIVE PULMONARY DISEASE, UNSPECIFIED (8) Constipation Code(s): K59.00 - CONSTIPATION, UNSPECIFIED (9) Diabetes mellitus, insulin dependent (IDDM), uncontrolled Code(s): E10.65 - TYPE 1 DIABETES MELLITUS WITH HYPERGLYCEMIA Qualifiers:
--- NOTE | 2018-01-18 14:59 | CON.CARD ---
Consult Consult Specialty:: Cardiology Referred by:: Dr. Rowan Reason for Consultation:: systolic CHF - History of Present Illness Chief Complaint: Altered mental status and SOB History of Present Illness: 82 year old man with a PMHx of HTN, DM, HLD, CAD, anterior wall [place], s/p PCI 2010 , s/p PCI, thrombectomy to proximal, mid LAD, D1 at [facility] on 12/18/2015, ischemic cardiomyopathy, chronic systolic CHF, s/p ACID implantation 08/03/2017 , paroxysmal Afib (on Coumadin 4mg), hypothyroidism, and diverticulitis (s/p partial colectomy), recent (01/15/2018) discharge for CHF readmitted 01/17/2018 for altered mental status with confusion, weakness and fatigue. The patient reports nausea, chills and episode of chest pain about 20 minutes. His SOB is at his baseline. ECG showed sinus rhythm with atrial sensing and ventricular pacing. BP is relatively low. Lasix is on hold. 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 No: Alzheimer's Cardio/Vascular: Yes: AFIB, Aneurysm (mild ascending aortic aneurysm (4.2 cm) per 01/[address]), CAD (stents x2 in 2010; thrombectomy & PCI of proximal and mid LAD with Promus Premier stents and PTCA of D1 on 12/18/15 at [facility] for acute/subacute anteroseptal [place]), CHF, HTN, Hyperlipdemia, Other (ischemic cardiomyopathy (LVEF 34% per 02/16/16 nuclear study)) Gastrointestinal: Yes: Constipation, Diverticulosis Musculoskeletal: Yes: Other (rib fx's right) Endocrine: Yes: Diabetes Mellitus, Hypothyroidism - Past Surgical History Past Surgical History: Yes: Arthrosocopy (Right knee arthroscopy w/ partial medial and lateral meniscectomy 09/01/15), Colectomy - Alcohol/Substance Use Hx Alcohol Use: No History of Substance Use: reports: None - Smoking History Smoking history: Former smoker Have you smoked in the past 12 months: No Aproximately how many cigarettes per day: 0 If you are a former smoker, when did you quit?: 40 years ago - Social History Usual Living Arrangement: [facility] (since last d/c) 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 History of Recent Travel: No Home Medications - Allergies Allergies/Adverse Reactions: Allergies Allergy/AdvReac Type Severity Reaction Status Date / Time No Known Drug Allergies Allergy Verified 01/17/18 12:06 - Home Medications Home Medications: Ambulatory Orders Duloxetine HCl [Cymbalta -] 60 mg PO DAILY 09/25/17 Folic Acid 1 mg PO DAILY 09/25/17 Levothyroxine [Synthroid -] 175 mcg PO DAILY 09/25/17 Spironolactone 25 mg PO DAILY 09/25/17 Albuterol 2.5/Ipratropium 0.5 [Duoneb -] 1 amp NEB RQID amp 12/14/17 Atorvastatin Ca [Lipitor] 80 mg PO HS tablet 12/14/17 Montelukast Na [Singulair -] 10 mg PO HS tablet 12/14/17 Tamsulosin HCl [Flomax -] 0.4 mg PO DAILY@0830 cap.er.24h 12/14/17 Alprazolam 0.25 mg PO TID 01/04/18 Docusate Sodium 100 mg PO DAILY 01/04/18 Furosemide [Lasix -] 40 mg PO BID 01/04/18 Gabapentin 100 mg PO BID 01/04/18 Potassium Chloride [K-Dur -] 20 meq PO DAILY 01/04/18 Warfarin Sodium [Coumadin] 4 mg PO DAILY 01/04/18 Carvedilol [Coreg -] 6.25 mg PO BID #60 tablet 01/15/18 Loratadine [Claritin -] 10 mg PO DAILY tablet 01/15/18 Polyethylene Glycol 3350 [Miralax 119 gm Btl -] 17 gm PO BID bottle 01/15/18 Sodium Chloride Nasal [place] [[place] Nasal [place] -] 2 spray NS TID PRN spray 01/15/18 levoFLOXacin [Levaquin -] 500 mg PO DAILY #5 tablet 01/15/18 Review of Systems - Review of Systems Constitutional: reports: Chills, Lethargy, Weakness Eyes: reports: No Symptoms HENT: reports: No Symptoms Neck: reports: No Symptoms Cardiovascular: reports: Chest Pain, Shortness of Breath Respiratory: reports: SOB Genitourinary: reports: No Symptoms Breasts: reports: No Symptoms Reported Musculoskeletal: reports: No Symptoms Integumentary: reports: No Symptoms Vital Signs: Vital Signs Temperature 98.7 F 01/18/18 10:00 Pulse Rate 78 01/18/18 10:00 Respiratory Rate 20 01/18/18 10:00 Blood Pressure 113/62 01/18/18 10:00 O2 Sat by Pulse Oximetry (%) 97 01/18/18 09:11 General: Well developed. Chronic ill. No acute distress. Head: Normocephalic. Atraumatic, Eyes: PERRLA, EOMI. Sclerae anicteric. Conjunctivae clear. Neck: Supple. No JVD. No bruits. Heart: Normal S1, S2: Regularly regular rhythm and rate. No gallop or rub. Lungs: Symmetrical air entry. Clear to auscultation. No crackle. No wheezing or rhonchi. Abdomen: Soft. Bowel sound positive. Non tender. No masses. Extremities: No edema. No clubbing or cyanosis. - Other Data Labs, Other Data: CBC, BMP 01/18/18 08:28 01/18/18 08:28 INR, PTT INR 2.51 (0.82-1.09) H 01/18/18 08:28 Troponin, BNP 01/17/18 01/18/18 15:00 08:28 Troponin I 0.04 0.07 H D Troponin, BNP 01/17/18 01/18/18 15:00 08:28 Troponin I 0.04 0.07 H D Imaging - Results EKG: Image Reviewed (ECG showed sinus rhythm with atrial sensing and ventricular pacing.) Assessment/Plan 82 year old man with a PMHx of HTN, DM, HLD, CAD, anterior wall [place], s/p PCI 2010 , s/p PCI, thrombectomy to proximal, mid LAD, D1 at [facility] on 12/18/2015, ischemic cardiomyopathy, chronic systolic CHF, s/p ACID implantation 08/03/2017 , paroxysmal Afib (on Coumadin 4mg), hypothyroidism, and diverticulitis (s/p partial colectomy), recent (01/15/2018) discharge for CHF readmitted 01/17/2018 for altered mental status with confusion, weakness and fatigue. The patient had chest pain about 20 minutes before admission. His SOB is at his baseline. ECG showed sinus rhythm with atrial sensing and ventricular pacing. BP is relatively low. Lasix is on hold. 1) Systolic CHF secondary to ischemic cardiomyopathy, s/p AICD. Stable, no respiratory distress, no physical signs of fluid overload at this time. May use Lasix as needed at this time. Continue carvedilol 6.25 mg BID. 2) CAD, anterior wall [place], s/p PCI 2010, s/p PCI, thrombectomy to proximal, mid LAD, D1 at [facility] on 12/18/2015. Had chest pain about 20 minutes before admission. CK is normal. Troponin is borderline. Conservative care. Continue atorvastatin and carvedilol. 3) Paroxysmal atrial fibrillation: Currently in sinus rhythm with atrial sensing and ventricular pacing. INR is therapeutic while on warfarin. Please call us for reconsult as needed.
[2018-01-18] MEDS ORDERED: PIPERACILLIN/TAZOBACTAM 4.5 GM VIAL IVPB ONE (17:03)
[2018-01-18] MEDS ORDERED: DEXTROSE 5%-WATER 100 ML IVPB ONE (17:04)
[2018-01-18] MEDS: WARFARIN NA 2 MG TABLET (UD) PO SCH (17:23)
[2018-01-18] MEDS: PIPERACILLIN/TAZOB 4.5 GM 4.5 GM in DEXTROSE 5%-WATER 100 ML IVPB SCH (17:23)
--- NOTE | 2018-01-18 17:52 | CON.GI ---
Consult Consult Specialty:: GI Referred by:: Dr Rowan - History of Present Illness History of Present Illness: 82 y/o male was asked to be seen because of elevated liver enzymes. He has PMH of IBS with Constipation, bacterial overgrowth and pancreatic insufficiency. As an outpatient he has uncontrolled blood sugars. His abfominal paiin resolved after inserting a martin catheter which drained 1 liter of urine and had a large bowel movement. 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 No: Alzheimer's Cardio/Vascular: Yes: AFIB, Aneurysm (mild ascending aortic aneurysm (4.2 cm) per 01/[address]), CAD (stents x2 in 2010; thrombectomy & PCI of proximal and mid LAD with Promus Premier stents and PTCA of D1 on 12/18/15 at [facility] for acute/subacute anteroseptal [place]), CHF, HTN, Hyperlipdemia, Other (ischemic cardiomyopathy (LVEF 34% per 02/16/16 nuclear study)) Gastrointestinal: Yes: Constipation, Diverticulosis Musculoskeletal: Yes: Other (rib fx's right) Endocrine: Yes: Diabetes Mellitus, Hypothyroidism - Past Surgical History Past Surgical History: Yes: Arthrosocopy (Right knee arthroscopy w/ partial medial and lateral meniscectomy 09/01/15), Colectomy - Alcohol/Substance Use Hx Alcohol Use: No History of Substance Use: reports: None - Smoking History Smoking history: Former smoker Have you smoked in the past 12 months: No Aproximately how many cigarettes per day: 0 If you are a former smoker, when did you quit?: 40 years ago - Social History Usual Living Arrangement: Jail (since last d/c) 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 History of Recent Travel: No Home Medications - Allergies Allergies/Adverse Reactions: Allergies Allergy/AdvReac Type Severity Reaction Status Date / Time No Known Drug Allergies Allergy Verified 01/17/18 12:06 - Home Medications Home Medications: Ambulatory Orders Duloxetine HCl [Cymbalta -] 60 mg PO DAILY 09/25/17 Folic Acid 1 mg PO DAILY 09/25/17 Levothyroxine [Synthroid -] 175 mcg PO DAILY 09/25/17 Spironolactone 25 mg PO DAILY 09/25/17 Albuterol 2.5/Ipratropium 0.5 [Duoneb -] 1 amp NEB RQID amp 12/14/17 Atorvastatin Ca [Lipitor] 80 mg PO HS tablet 12/14/17 Montelukast Na [Singulair -] 10 mg PO HS tablet 12/14/17 Tamsulosin HCl [Flomax -] 0.4 mg PO DAILY@0830 cap.er.24h 12/14/17 Alprazolam 0.25 mg PO TID 01/04/18 Docusate Sodium 100 mg PO DAILY 01/04/18 Furosemide [Lasix -] 40 mg PO BID 01/04/18 Gabapentin 100 mg PO BID 01/04/18 Potassium Chloride [K-Dur -] 20 meq PO DAILY 01/04/18 Warfarin Sodium [Coumadin] 4 mg PO DAILY 01/04/18 Carvedilol [Coreg -] 6.25 mg PO BID #60 tablet 01/15/18 Loratadine [Claritin -] 10 mg PO DAILY tablet 01/15/18 Polyethylene Glycol 3350 [Miralax 119 gm Btl -] 17 gm PO BID bottle 01/15/18 Sodium Chloride Nasal [place] [[place] Nasal [place] -] 2 spray NS TID PRN spray 01/15/18 levoFLOXacin [Levaquin -] 500 mg PO DAILY #5 tablet 01/15/18 Physical Exam-GI Vital Signs: Vital Signs Temperature 97.4 F L 01/18/18 14:05 Pulse Rate 62 01/18/18 14:05 Respiratory Rate 18 01/18/18 14:05 Blood Pressure 80/50 01/18/18 14:05 O2 Sat by Pulse Oximetry (%) 97 01/18/18 09:11 Constitutional: Yes: Well Nourished Eyes: Yes: Conjunctiva Clear HENT: Yes: Atraumatic Neck: Yes: Trachea Midline Cardiovascular: Yes: Regular Rate and Rhythm Respiratory: Yes: CTA Bilaterally ...Palpate: Yes: Soft. No: Firm/Rigid, Guarding, Hepatomegaly, Mass, Pulsatile Mass, Splenomegaly, Tenderness Labs: CBC, BMP 01/18/18 08:28 01/18/18 08:28 INR, PTT INR 2.51 (0.82-1.09) H 01/18/18 08:28 Hepatic Panel Total Bilirubin 0.7 mg/dL (0.2-1.0) 01/18/18 08:28 AST 94 U/L (15-37) H D 01/18/18 08:28 ALT 160 U/L (12-78) H 01/18/18 08:28 Alkaline Phosphatase 221 U/L (45-117) H 01/18/18 08:28 Albumin 2.6 g/dl (3.4-5.0) L 01/18/18 08:28 Problem List - Problems (1) Urinary retention Assessment/Plan: maintain on mratin consider urology consult Code(s): R33.9 - RETENTION OF URINE, UNSPECIFIED (2) Abdominal pain Code(s): R10.9 - UNSPECIFIED ABDOMINAL PAIN Qualifiers: Abdominal location: right upper quadrant Qualified Code(s): R10.11 - Right upper quadrant pain (3) IBS (irritable bowel syndrome) Assessment/Plan: maintain on Miralax 17 grams bid low residue, lactose free Code(s): K58.9 - IRRITABLE BOWEL SYNDROME WITHOUT DIARRHEA Qualifiers: Qualified Code(s): K58.9 - Irritable bowel syndrome without diarrhea
--- NOTE | 2018-01-18 18:54 | CONSULT ---
Consult - text type - Consultation Consultation Note: NMEUROLOGY CONSULTAION is greatly appreciated: This 82 yo man, recently at home with his has PMH of HTN, Chol, DM , COPD, hypothyroidism, depression and ASHD, s/p Stents, s/p PPM , AFib, on coumadin and multiple meds. s/p left Tib-Fib fracture 07/09 complicated by osteomyelitis. He is well-known to me with multiple admissions for confusion: once associated with hypothyroidism, once by hyperammonemia, once due to narcotics, and all, associated with infections. Now admitted with confusion. Required Bean catheter (but UA unremarkable for UTI). In ER: CT of head (reviewed) shows diffuse atrophy, ex vacuo hydrocephalus, microvasular changes. ? Left occipital lucency. Na= 129 mg%. Glu= 375 mg%, Increased LFT's. Ammonia Normal. TSH normal. INR= 2.07. WBC= 9.5K NEURO: Awake, alert, cooperative. Fluent speech Recognizes me as "Dr.". [facility]. 2015. [place]. Recalls 1 of 3 @ 3 mins + Glabella, snout, suck. CN: reduced blink to threat from R. No facial. Full EOM's. Gag OK Motor: Mild right drift. Good grasps. Good INESSA's. Areflexic in the legs. Plantars silent No FTN Dystaxia Reduced vibration to the calves. Wide-based, unsteady gait. IMP: 1. Moderate, B/L cerebral Dysfunction (OMS, chronic features) 2. Possible, Left cerebral accentuation. R/O CVA 3. 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 4. Toxic-metabolic encephalopathy. (Hyperglycemia?, Osteomyelitis, hyponatremia, etc.) SUGGEST: Correct the correctable. Repeat CT of head in 24-48 hours. Check ESR, CRP for chronic infection. PT for gait with walker. 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
[2018-01-18] MEDS ORDERED: traMADol HCL 50 MG TABLET PO ONE (20:36)
[2018-01-18] MEDS ORDERED: INSULIN (NOVOLOG) ASPART 100 UNITS/ML 10ML VIAL ONE (20:38)
[2018-01-18] MEDS: ATORVASTATIN CA 80 MG TABLET (FP) PO SCH (21:07)
[2018-01-18] MEDS: MONTELUKAST NA 10 MG TABLET PO SCH (21:07)
[2018-01-19] MEDS ORDERED: DEXTROSE 5%-WATER 100 ML IVPB ONE ×3 (01:09→16:51)
[2018-01-19] MEDS ORDERED: PIPERACILLIN/TAZOBACTAM 4.5 GM VIAL IVPB ONE ×3 (01:09→16:51)
[2018-01-19] MEDS: PIPERACILLIN/TAZOB 4.5 GM 4.5 GM in DEXTROSE 5%-WATER 100 ML IVPB SCH ×3 (01:26→18:00)
--- NOTE | 2018-01-19 05:59 | HOSP ---
Subjective - Review of Symptoms Events since last encounter: Hospitalist Encounter Notified by RN, patient reports chest pain Subjective: Arrived to bedside patient is asleep but arousable, he reports L- sided CP non radiating. See PE Plan: - EKG- stat - Trop I- stat Cardiovascular: Yes: Chest Pain Physical Examination Vital Signs: Vital Signs Temperature 98.4 F 01/19/18 01:36 Pulse Rate 74 01/19/18 01:36 Respiratory Rate 20 01/19/18 01:36 Blood Pressure 109/51 01/19/18 01:36 O2 Sat by Pulse Oximetry (%) 99 01/18/18 21:00 Constitutional: Yes: Well Nourished, No Distress, Calm, Obese Eyes: Yes: WNL, Conjunctiva Clear, PERRL HENT: Yes: WNL, Atraumatic, Normocephalic Neck: Yes: WNL, Supple, Trachea Midline Cardiovascular: Yes: Pulse Irregular, S1, S2, Other (CP non-reproducible) Respiratory: Yes: Rhonchi, SOB Gastrointestinal: Yes: Normal Bowel Sounds, Soft, Abdomen, Obese Neurological: Yes: Alert, Cran Nerves II-XII Intact ...Motor Strength: WNL Psychiatric: Yes: Alert Labs: CBC, BMP 01/18/18 08:28 01/18/18 08:28 Troponin, BNP 01/18/18 08:28 Troponin I 0.07 H D Current Medications Generic Name Dose Route Start Last Admin Trade Name Freq PRN Reason Stop Dose Admin Albuterol/Ipratropium 1 amp 01/17/18 20:00 01/18/18 20:29 Duoneb - NEB 1 amp RQID MANAN Administration Atorvastatin Calcium 80 mg 01/17/18 22:00 01/18/18 21:07 Lipitor - PO 80 mg HS MANAN Administration Carvedilol 6.25 mg 01/17/18 22:00 01/18/18 21:08 Coreg - PO Not Given BID MANAN Docusate Sodium 100 mg 01/18/18 10:00 01/18/18 09:36 Colace - PO 100 mg DAILY MANAN Administration Duloxetine HCl 60 mg 01/19/18 10:00 Cymbalta - PO DAILY MANAN Folic Acid 1 mg 01/18/18 10:00 01/18/18 09:35 Folic Acid - PO 1 mg DAILY MANAN Administration Piperacillin Sod/Tazobactam 100 mls @ 200 mls/hr 01/18/18 18:00 01/19/18 01: 26 Sod 4.5 gm/ Dextrose IVPB 200 mls/hr Q8H-IV MANAN Administration Protocol Insulin Aspart 1 vial 01/17/18 22:00 01/18/18 21:08 Novolog Vial Sliding Scale - SQ 5 units ACHS MANAN Administration Protocol Levothyroxine Sodium 125 mcg/ 175 mcg 01/18/18 07:00 01/18/18 06:21 Levothyroxine Sodium 50 mcg PO 175 mcg DAILY@0700 MANAN Administration Montelukast Sodium 10 mg 01/17/18 22:00 01/18/18 21:07 Singulair - PO 10 mg HS MANAN Administration Polyethylene Glycol 17 gm 01/17/18 22:00 01/18/18 21:08 Miralax (For Daily Use) - PO Not Given BID MANAN Potassium Chloride 20 meq 01/18/18 10:00 01/18/18 09:35 K-Dur - PO 20 meq DAILY MANAN Administration Sodium Chloride 2 spray 01/17/18 17:23 [place] Nasal [place] - NS Q8H PRN NASAL CONGESTION Warfarin Sodium 4 mg 01/17/18 18:00 01/18/18 17:23 Coumadin - PO 4 mg DAILY@1800 [facility] Administration Hospitalist Encounter Assessment: 82 y/o man Admitted for Change in Mental Status, Hyperglycemia Outcome: EKG- Paced Rhythm- no change compared to prior study Trop I- neg 0.04
[2018-01-19] MEDS ORDERED: LEVOTHYROXINE NA 125 MCG TABLET (FP) ONE (06:11)
[2018-01-19] MEDS ORDERED: LEVOTHYROXINE NA 50 MCG TABLET (FP) ONE (06:11)
[2018-01-19] MEDS: LEVOTHYROXINE 125 MCG, LEVOTHYROXINE 50 MCG PO SCH (06:20)
[2018-01-19] MEDS: INSULIN SLIDING SCALE (NOVOLOG) 1 VIAL SQ SCH ×4 (06:20→21:02)
[2018-01-19 06:39] LABS: BASO % 1.1 % (0-2.0); EOS % 3.7 % (0-4.5); HEMATOCRIT 29.1 % (35.4-49); HEMOGLOBIN 9.9 GM/dL (11.7-16.9); LYMPH % 8.3 % (8-40); MCH 28.9 pg (25.7-33.7); MEAN PLT VOLUME 9.4 fl (7.5-11.1); MONO % 12.5 % (3.8-10.2); NEUT % 74.4 % (42.8-82.8); PLATELET COUNT 238 K/MM3 (134-434); RBC 3.42 M/mm3 (4.00-5.60); RDW 17.7 % (11.9-15.9); WHITE BLOOD COUNT 6.3 K/mm3 (4.0-10.0)
[2018-01-19] MEDS: ALBUTEROL SO4 2.5/IPRATROPIUM 0.5 INH SOL 3 ML VIAL.NEB. NEB SCH ×4 (07:58→20:07)
[2018-01-19] MEDS: DOCUSATE SODIUM 100 MG CAPSULE (FP) PO SCH (09:56)
[2018-01-19] MEDS: DULoxetine HCL 30 MG CAPSULE.DR (FP) PO SCH (09:57)
[2018-01-19] MEDS: CARVEDILOL 6.25 MG TABLET (FP) PO SCH ×2 (09:57→21:01)
[2018-01-19] MEDS: POLYETHYLENE GLYCOL 3350 119 GM BTL PO SCH ×2 (09:57→21:02)
[2018-01-19] MEDS: FOLIC ACID 1 MG TABLET (FP) PO SCH (09:57)
[2018-01-19] MEDS: POTASSIUM CHLORIDE TABS 20 MEQ TABLET.ER (FP) PO SCH (09:57)
--- NOTE | 2018-01-19 11:30 | EKG ---
Test Reason : Blood Pressure : / mmHG Vent. Rate : 073 BPM Atrial Rate : 073 BPM P-R Int : 160 ms QRS Dur : 188 ms QT Int : 502 ms P-R-T Axes : 090 -72 077 degrees QTc Int : 553 ms Atrial-sensed ventricular-paced rhythm ABNORMAL ECG WHEN COMPARED WITH ECG OF 18-JAN-2018 08:44, VENT. RATE HAS DECREASED BY 2 BPM Confirmed by REENA LEDESMA, SHAHZAD ([id number]) on 01/19/2018 11:30:26 AM Referred By: Confirmed By:SHAHZAD VALLES MD
[2018-01-19] MEDS ORDERED: INSULIN (NOVOLOG) ASPART 100 UNITS/ML 10ML VIAL ONE (11:34)
--- NOTE | 2018-01-19 11:59 | PN ---
Progress Note, Physician History of Present Illness: OOB in chair Mildly confused No complaints offered Temps down BC prelim negative - Current Medication List Current Medications: Active Medications Albuterol/Ipratropium (Duoneb -) 1 amp NEB RQID [facility] Last Admin: 01/19/18 11:46 Dose: 1 amp Atorvastatin Calcium (Lipitor -) 80 mg PO HS [facility] Last Admin: 01/18/18 21:07 Dose: 80 mg Carvedilol (Coreg -) 6.25 mg PO BID [facility] Last Admin: 01/19/18 09:57 Dose: 6.25 mg Docusate Sodium (Colace -) 100 mg PO DAILY [facility] Last Admin: 01/19/18 09:56 Dose: 100 mg Duloxetine HCl (Cymbalta -) 60 mg PO DAILY [facility] Last Admin: 01/19/18 09:57 Dose: 60 mg Folic Acid (Folic Acid -) 1 mg PO DAILY [facility] Last Admin: 01/19/18 09:57 Dose: 1 mg Piperacillin Sod/Tazobactam (Sod 4.5 gm/ Dextrose) 100 mls @ 200 mls/hr IVPB Q8H-IV MANAN PRN Reason: Protocol Last Admin: 01/19/18 09:56 Dose: 200 mls/hr Insulin Aspart (Novolog Vial Sliding Scale -) 1 vial SQ ACHS [facility] PRN Reason: Protocol Last Admin: 01/19/18 11:36 Dose: 10 units Levothyroxine Sodium 125 mcg/ (Levothyroxine Sodium 50 mcg) 175 mcg PO DAILY@ 0700 [facility] Last Admin: 01/19/18 06:20 Dose: 175 mcg Montelukast Sodium (Singulair -) 10 mg PO [facility] Last Admin: 01/18/18 21:07 Dose: 10 mg Polyethylene Glycol (Miralax (For Daily Use) -) 17 gm PO BID [facility] Last Admin: 01/19/18 09:57 Dose: 17 mg Potassium Chloride (K-Dur -) 20 meq PO DAILY [facility] Last Admin: 01/19/18 09:57 Dose: 20 meq Sodium Chloride ([place] Nasal [place] -) 2 spray NS Q8H PRN PRN Reason: NASAL CONGESTION Warfarin Sodium (Coumadin -) 4 mg PO DAILY@1800 [facility] Last Admin: 01/18/18 17:23 Dose: 4 mg - Objective Vital Signs: Vital Signs Temperature 98.1 F 01/19/18 06:00 Pulse Rate 72 01/19/18 06:00 Respiratory Rate 20 01/19/18 06:00 Blood Pressure 101/72 01/19/18 06:00 O2 Sat by Pulse Oximetry (%) 99 01/19/18 07:59 Constitutional: Yes: No Distress Eyes: Yes: Conjunctiva Clear Cardiovascular: Yes: Regular Rate and Rhythm, S1, S2 Respiratory: Yes: CTA Bilaterally Gastrointestinal: Yes: Normal Bowel Sounds, Soft, Abdomen, Obese. No: Tenderness Edema: LLE: 1+, RLE: 1+ Labs: CBC, BMP 01/19/18 06:17 01/18/18 08:28 INR, PTT INR 2.51 (0.82-1.09) H 01/18/18 08:28 Assessment/Plan Abdominal fluid collection Fever- improved Confusion Hx chronically infected L LE hardware Await c/s Continue empiric zosyn
[2018-01-19] MEDS ORDERED: ACETAMINOPHEN 325 MG TABLET (FP) PO PRN (14:02)
[2018-01-19] MEDS ORDERED: morphine CARPU-JECT 2 MG/1 ML DISP.SYRIN IVPUSH PRN (14:03)
--- NOTE | 2018-01-19 14:04 | PN ---
Progress Note, Physician Chief Complaint: Abdominal Pain History of Present Illness: in chair, complaining of abdominal pain - Current Medication List Current Medications: Active Medications Albuterol/Ipratropium (Duoneb -) 1 amp NEB RQID [facility] Last Admin: 01/19/18 11:46 Dose: 1 amp Atorvastatin Calcium (Lipitor -) 80 mg PO [facility] Last Admin: 01/18/18 21:07 Dose: 80 mg Carvedilol (Coreg -) 6.25 mg PO BID [facility] Last Admin: 01/19/18 09:57 Dose: 6.25 mg Docusate Sodium (Colace -) 100 mg PO DAILY [facility] Last Admin: 01/19/18 09:56 Dose: 100 mg Duloxetine HCl (Cymbalta -) 60 mg PO DAILY [facility] Last Admin: 01/19/18 09:57 Dose: 60 mg Folic Acid (Folic Acid -) 1 mg PO DAILY [facility] Last Admin: 01/19/18 09:57 Dose: 1 mg Piperacillin Sod/Tazobactam (Sod 4.5 gm/ Dextrose) 100 mls @ 200 mls/hr IVPB Q8H-IV MANAN PRN Reason: Protocol Last Admin: 01/19/18 09:56 Dose: 200 mls/hr Insulin Aspart (Novolog Vial Sliding Scale -) 1 vial SQ ACHS [facility] PRN Reason: Protocol Last Admin: 01/19/18 11:36 Dose: 10 units Levothyroxine Sodium 125 mcg/ (Levothyroxine Sodium 50 mcg) 175 mcg PO DAILY@ 0700 [facility] Last Admin: 01/19/18 06:20 Dose: 175 mcg Montelukast Sodium (Singulair -) 10 mg PO [facility] Last Admin: 01/18/18 21:07 Dose: 10 mg Polyethylene Glycol (Miralax (For Daily Use) -) 17 gm PO BID [facility] Last Admin: 01/19/18 09:57 Dose: 17 mg Potassium Chloride (K-Dur -) 20 meq PO DAILY [facility] Last Admin: 01/19/18 09:57 Dose: 20 meq Sodium Chloride ([place] Nasal [place] -) 2 spray NS Q8H PRN PRN Reason: NASAL CONGESTION Warfarin Sodium (Coumadin -) 4 mg PO DAILY@1800 [facility] Last Admin: 01/18/18 17:23 Dose: 4 mg - Objective Vital Signs: Vital Signs Temperature 99.5 F 01/19/18 13:52 Pulse Rate 69 01/19/18 13:52 Respiratory Rate 20 01/19/18 13:52 Blood Pressure 108/56 01/19/18 13:52 O2 Sat by Pulse Oximetry (%) 96 01/19/18 10:00 Constitutional: Yes: Well Nourished, Calm, Mild Distress Labs: CBC, BMP 01/19/18 06:17 01/18/18 08:28 INR, PTT INR 2.51 (0.82-1.09) H 01/18/18 08:28 Problem List - Problems (1) Abdominal fluid collection Assessment/Plan: -seen by Surgery -minimal, no invasive intervention indicated at this time Code(s): R18.8 - OTHER ASCITES (2) THERON (acute kidney injury) Assessment/Plan: -nephrology consult -monitor trend Code(s): N17.9 - ACUTE KIDNEY FAILURE, UNSPECIFIED (3) CAD (coronary artery disease) Assessment/Plan: -statin -cardiology consult appreciated Code(s): I25.10 - ATHSCL HEART DISEASE OF [place] CORONARY ARTERY W/O ANG PCTRS Qualifiers: Coronary Disease-Associated Artery/Lesion type: unspecified vessel or lesion type [place] vs. transplanted heart: [place] heart Associated angina: angina presence unspecified Qualified Code(s): I25.10 - Atherosclerotic heart disease of [place] coronary artery without angina pectoris (4) CHF (congestive heart failure) Assessment/Plan: -Furosemide 40 mg IVP now, then daily -I&O's -bronchodilators -seen by cardiology and pulmonary Code(s): I50.9 - HEART FAILURE, UNSPECIFIED Qualifiers: Heart failure type: systolic Heart failure chronicity: acute on chronic Qualified Code(s): I50.23 - Acute on chronic systolic (congestive) heart failure Assessment/Plan see problem list
[2018-01-19] MEDS: traMADol HCL 50 MG TABLET PO PRN (14:32)
[2018-01-19] MEDS ORDERED: PT OWN MED DRAWER 7, Y5N ONE ×2 (14:35→16:50)
[2018-01-19] MEDS: MAG HYDROX/AL HYDROX/SIMETH 30 ML UNIT-DOSE CUP PO PRN (14:44)
--- NOTE | 2018-01-19 15:22 | PN ---
GI Progress Note Subjective: patient has new pelvic collection in the sigmoid colon, complains of abdominal distention,no abdominal pain, no leukocytosis, no BM - Objective Vital Signs: Vital Signs Temperature 99.5 F 01/19/18 13:52 Pulse Rate 69 01/19/18 13:52 Respiratory Rate 20 01/19/18 13:52 Blood Pressure 108/56 01/19/18 13:52 O2 Sat by Pulse Oximetry (%) 96 01/19/18 10:00 Constitutional: Obese Eyes: Yes: Conjunctiva Clear HENT: Yes: Atraumatic Neck: Yes: Supple Cardiovascular: Yes: Regular Rate and Rhythm Respiratory: Yes: CTA Bilaterally Gastrointestinal Inspection: Yes: Distention ...Auscultate: Yes: Normoactive Bowel Sounds ...Palpate: Yes: Soft. No: Firm/Rigid, Guarding, Hepatomegaly, Mass, Pulsatile Mass, Splenomegaly, Tenderness ...Percussion: Yes: Tympanitic Labs: CBC, BMP 01/19/18 06:17 01/18/18 08:28 INR, PTT INR 2.51 (0.82-1.09) H 01/18/18 08:28 Problem List - Problems (1) Urinary retention Code(s): R33.9 - RETENTION OF URINE, UNSPECIFIED (2) Abdominal pain Code(s): R10.9 - UNSPECIFIED ABDOMINAL PAIN Qualifiers: Abdominal location: right upper quadrant Qualified Code(s): R10.11 - Right upper quadrant pain (3) IBS (irritable bowel syndrome) Assessment/Plan: R> add Relistor xifaxan Creon Code(s): K58.9 - IRRITABLE BOWEL SYNDROME WITHOUT DIARRHEA Qualifiers: Qualified Code(s): K58.9 - Irritable bowel syndrome without diarrhea (4) Pelvic fluid collection Assessment/Plan: etiology unclear R> repeat ct with out contrast in 3 days Code(s): R18.8 - OTHER ASCITES
[2018-01-19] MEDS: METOCLOPRAMIDE HCL 10 MG TABLET (FP) PO SCH (16:55)
[2018-01-19] MEDS: LIPASE/PROTEASE/AMYLASE 36,000 UNIT CAPSULE PO SCH (17:59)
[2018-01-19] MEDS: WARFARIN NA 2 MG TABLET (UD) PO SCH (18:00)
[2018-01-19] MEDS: MONTELUKAST NA 10 MG TABLET PO SCH (21:01)
[2018-01-19] MEDS: RIFAXIMIN 550 MG TABLET (UD) PO SCH (21:01)
[2018-01-19] MEDS: PANTOPRAZOLE 40 MG TABLET (FP) PO SCH (21:01)
[2018-01-19] MEDS: ATORVASTATIN CA 80 MG TABLET (FP) PO SCH (21:01)
[2018-01-20] MEDS ORDERED: PIPERACILLIN/TAZOBACTAM 4.5 GM VIAL IVPB ONE ×4 (01:50→17:26)
[2018-01-20] MEDS ORDERED: DEXTROSE 5%-WATER 100 ML IVPB ONE ×3 (01:50→11:09)
[2018-01-20] MEDS: PIPERACILLIN/TAZOB 4.5 GM 4.5 GM in DEXTROSE 5%-WATER 100 ML IVPB SCH ×2 (02:15→11:49)
[2018-01-20] MEDS ORDERED: LEVOTHYROXINE NA 125 MCG TABLET (FP) ONE (05:46)
[2018-01-20] MEDS ORDERED: LEVOTHYROXINE NA 50 MCG TABLET (FP) ONE (05:46)
[2018-01-20] MEDS: LEVOTHYROXINE 125 MCG, LEVOTHYROXINE 50 MCG PO SCH (06:01)
[2018-01-20] MEDS: RIFAXIMIN 550 MG TABLET (UD) PO SCH ×3 (06:02→21:16)
[2018-01-20] MEDS: METOCLOPRAMIDE HCL 10 MG TABLET (FP) PO SCH ×3 (06:02→17:14)
[2018-01-20] MEDS: traMADol HCL 50 MG TABLET PO PRN (06:02)
[2018-01-20] MEDS: INSULIN SLIDING SCALE (NOVOLOG) 1 VIAL SQ SCH ×4 (06:02→21:20)
[2018-01-20] MEDS ORDERED: morphine SULFATE 4 MG/ML VIAL IVPUSH PRN (06:45)
[2018-01-20] MEDS: ALBUTEROL SO4 2.5/IPRATROPIUM 0.5 INH SOL 3 ML VIAL.NEB. NEB SCH ×4 (08:33→20:17)
[2018-01-20] MEDS ORDERED: PT OWN MED DRAWER 7, Y5N ONE (08:36)
--- NOTE | 2018-01-20 09:32 | PN ---
Progress Note (short form) - Note Progress Note: ID Milo day 2 Afebrile Very confused Has BM Selected Entries 01/20/18 01/20/18 06:00 08:33 Temperature 98.8 F Pulse Rate 78 Respiratory 20 Rate Blood Pressure 100/52 O2 Sat by Pulse 98 Oximetry (%) Abd Soft nontender Microbiology 01/17/18 12:27 Urine - Urine - Catheterized Urine Culture - Final NO GROWTH OBTAINED 01/17/18 11:08 Blood - Peripheral Venous Blood Culture - Preliminary NO GROWTH OBTAINED AFTER 48 HOURS, INCUBATION TO CONTINUE FOR 3 DAYS. 01/17/18 11:08 Blood - Peripheral Venous Blood Culture - Preliminary NO GROWTH OBTAINED AFTER 48 HOURS, INCUBATION TO CONTINUE FOR 3 DAYS. Laboratory Tests 01/18/18 01/18/18 01/18/18 08:28 08:28 08:28 WBC RBC Hct ESR 105 H BUN 42 H Creatinine 1.2 Hemoglobin A1c % 10.5 H D 01/19/18 06:17 WBC 6.3 RBC 3.42 L Hct 29.1 L ESR BUN Creatinine Hemoglobin A1c % Assessment Intrabdominal collection between sigmoid and bladder Plan Continue antibiotics and obtain CRP tp helo follow response to treatment Hussein LEDESMA
[2018-01-20] MEDS: POTASSIUM CHLORIDE TABS 20 MEQ TABLET.ER (FP) PO SCH (09:41)
[2018-01-20] MEDS: FOLIC ACID 1 MG TABLET (FP) PO SCH (09:41)
[2018-01-20] MEDS: DULoxetine HCL 30 MG CAPSULE.DR (FP) PO SCH (09:41)
[2018-01-20] MEDS: CARVEDILOL 6.25 MG TABLET (FP) PO SCH ×2 (09:41→21:16)
[2018-01-20] MEDS: PANTOPRAZOLE 40 MG TABLET (FP) PO SCH ×2 (09:41→21:16)
[2018-01-20] MEDS: DOCUSATE SODIUM 100 MG CAPSULE (FP) PO SCH (09:41)
[2018-01-20] MEDS: POLYETHYLENE GLYCOL 3350 119 GM BTL PO SCH ×2 (09:41→21:16)
[2018-01-20] MEDS: LIPASE/PROTEASE/AMYLASE 36,000 UNIT CAPSULE PO SCH ×3 (09:41→17:15)
[2018-01-20] MEDS ORDERED: PIPERACILLIN/TAZOB 4.5 GM 4.5 GM in SODIUM CHLORIDE 100 ML IVPB SCH (11:17)
[2018-01-20] MEDS ORDERED: methylPREDNISolone NA SUCC 40 MG/1 ML VIAL IVPUSH ONE (11:19)
[2018-01-20 12:06] LABS: BASO % 1.3 % (0-2.0); EOS % 3.1 % (0-4.5); HEMATOCRIT 29.3 % (35.4-49); HEMOGLOBIN 9.7 GM/dL (11.7-16.9); LYMPH % 7.6 % (8-40); MCH 28.5 pg (25.7-33.7); MCHC 33.1 g/dl (32.0-35.9); MEAN PLT VOLUME 9.5 fl (7.5-11.1); MONO % 11.4 % (3.8-10.2); NEUT % 76.6 % (42.8-82.8); PLATELET COUNT 229 K/MM3 (134-434); RBC 3.41 M/mm3 (4.00-5.60); RDW 17.8 % (11.9-15.9); WHITE BLOOD COUNT 6.5 K/mm3 (4.0-10.0)
--- NOTE | 2018-01-20 13:10 | CON.PULM ---
Consult Consult Specialty:: PULMONARY Referred by:: Dr. Rowan Reason for Consultation:: shortness of breath - History of Present Illness Chief Complaint: altered mental status History of Present Illness: 82yo male with h/o HTN, DM, hyperlipidemia, CAD s/p stents, atrial fibrillation s/p PPM, LV systolic dysfunction, hypothyroidism, h/o diverticulitis who was admitted with altered mental status. Recent admission for decompensated CHF, found to have an intra-abdominal fluid collection started on antibiotics. Reports worsening shortness of breath, cough and wheezing. Somnolent but arousable, unable to provide reliable history at this time. - History Source History Provided By: Patient, Medical Record Limitations to Obtaining History: Clinical Condition - Past Medical History [employer]: Yes: TIA. No: Alzheimer's Cardio/Vascular: Yes: AFIB, Aneurysm (mild ascending aortic aneurysm (4.2 cm) per 01/[address]), CAD (stents x2 in 2010; thrombectomy & PCI of proximal and mid LAD with Promus Premier stents and PTCA of D1 on 12/18/15 at [facility] for acute/subacute anteroseptal MT), CHF, HTN, Hyperlipdemia, Other (ischemic cardiomyopathy (LVEF 34% per 02/16/16 nuclear study)) Gastrointestinal: Yes: Constipation, Diverticulosis Musculoskeletal: Yes: Other (rib fx's right) Endocrine: Yes: Diabetes Mellitus, Hypothyroidism - Past Surgical History Past Surgical History: Yes: Arthrosocopy (Right knee arthroscopy w/ partial medial and lateral meniscectomy 09/01/15), Colectomy - Alcohol/Substance Use Hx Alcohol Use: No History of Substance Use: reports: None - Smoking History Smoking history: Former smoker Have you smoked in the past 12 months: No Aproximately how many cigarettes per day: 0 If you are a former smoker, when did you quit?: 40 years ago - Social History Usual Living Arrangement: Long Term (since last d/c) 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 History of Recent Travel: No Home Medications - Allergies Allergies/Adverse Reactions: Allergies Allergy/AdvReac Type Severity Reaction Status Date / Time No Known Drug Allergies Allergy Verified 01/17/18 12:06 - Home Medications Home Medications: Ambulatory Orders Duloxetine HCl [Cymbalta -] 60 mg PO DAILY 09/25/17 Folic Acid 1 mg PO DAILY 09/25/17 Levothyroxine [Synthroid -] 175 mcg PO DAILY 09/25/17 Spironolactone 25 mg PO DAILY 09/25/17 Albuterol 2.5/Ipratropium 0.5 [Duoneb -] 1 amp NEB RQID amp 12/14/17 Atorvastatin Ca [Lipitor] 80 mg PO HS tablet 12/14/17 Montelukast Na [Singulair -] 10 mg PO HS tablet 12/14/17 Tamsulosin HCl [Flomax -] 0.4 mg PO DAILY@0830 cap.er.24h 12/14/17 Alprazolam 0.25 mg PO TID 01/04/18 Docusate Sodium 100 mg PO DAILY 01/04/18 Furosemide [Lasix -] 40 mg PO BID 01/04/18 Gabapentin 100 mg PO BID 01/04/18 Potassium Chloride [K-Dur -] 20 meq PO DAILY 01/04/18 Warfarin Sodium [Coumadin] 4 mg PO DAILY 01/04/18 Carvedilol [Coreg -] 6.25 mg PO BID #60 tablet 01/15/18 Loratadine [Claritin -] 10 mg PO DAILY tablet 01/15/18 Polyethylene Glycol 3350 [Miralax 119 gm Btl -] 17 gm PO BID bottle 01/15/18 Sodium Chloride Nasal [place] [[place] Nasal [place] -] 2 spray NS TID PRN spray 01/15/18 levoFLOXacin [Levaquin -] 500 mg PO DAILY #5 tablet 01/15/18 Review of Systems Unable to obtain ROS, reason: pt lethargic Physical Exam Vital Sings: Vital Signs Temperature 97.8 F 01/20/18 10:00 Pulse Rate 74 01/20/18 10:00 Respiratory Rate 20 01/20/18 10:00 Blood Pressure 102/64 01/20/18 10:00 O2 Sat by Pulse Oximetry (%) 96 01/20/18 10:00 Constitutional: Yes: Mild Distress Eyes: Yes: Conjunctiva Clear, EOM Intact HENT: Yes: Atraumatic, Normocephalic Neck: Yes: Supple, Trachea Midline Cardiovascular: Yes: Pulse Irregular Respiratory: Yes: Rhonchi, Wheezes ...Clubbing: No Gastrointestinal: Yes: Normal Bowel Sounds, Soft, Abdomen, Obese. No: Tenderness Edema: No Neurological: Yes: Lethargy Labs: CBC, BMP 01/20/18 10:15 ABG Results ABG pH 7.40 (7.35-7.45) 01/17/18 15:35 ABG pCO2 at Pt Temp 37.8 mmHg (35-45) 01/17/18 15:35 ABG pO2 at Pt Temp 135.0 mmHg (68-100) H D 01/17/18 15:35 ABG HCO3 23.1 meq/L (22-26) 01/17/18 15:35 ABG O2 Sat (Measured) 98.8 % (90-98.9) 01/17/18 15:35 ABG O2 Content 13.9 % vol (15-22) L 01/17/18 15:35 ABG Base Excess -0.9 meq/l (-2-2) 01/17/18 15:35 Imaging - Results Chest X-ray: Report Reviewed, Image Reviewed (pulmonary vascular congestion) Problem List - Problems (1) Acute on chronic systolic (congestive) heart failure Code(s): I50.23 - ACUTE ON CHRONIC SYSTOLIC (CONGESTIVE) HEART FAILURE (2) Abdominal fluid collection Code(s): R18.8 - OTHER ASCITES (3) Change in mental status Code(s): R41.82 - ALTERED MENTAL STATUS, UNSPECIFIED Qualifiers: Altered mental status type: unspecified Qualified Code(s): R41.82 - Altered mental status, unspecified (4) CAD (coronary artery disease) Code(s): I25.10 - ATHSCL HEART DISEASE OF [place] CORONARY ARTERY W/O ANG PCTRS Qualifiers: Coronary Disease-Associated Artery/Lesion type: unspecified vessel or lesion type [place] vs. transplanted heart: [place] heart Associated angina: angina presence unspecified Qualified Code(s): I25.10 - Atherosclerotic heart disease of [place] coronary artery without angina pectoris (5) Diabetes Code(s): E11.9 - TYPE 2 DIABETES MELLITUS WITHOUT COMPLICATIONS Qualifiers: Diabetes mellitus type: type 2 Diabetes mellitus complication detail: with other neurological complication (6) Hyponatremia Code(s): E87.1 - HYPO-OSMOLALITY AND HYPONATREMIA (7) Atrial fibrillation Code(s): I48.91 - UNSPECIFIED ATRIAL FIBRILLATION Qualifiers: Atrial fibrillation type: paroxysmal Qualified Code(s): I48.0 - Paroxysmal atrial fibrillation Assessment/Plan Intra-abdominal Fluid Collection r/o Sepsis Altered Mental Status Hyponatremia Acute on Chronic Systolic Heart Failure Atrial Fibrillation CAD HTN DM Hypothyroidism h/o Diverticulitis - antibiotics per ID - f/u cultures - would give lasix as CXR congested and wheezes may be related to cardiac wheeze - monitor urine output, creatinine - monitor lytes - inhaled bronchodilators standing and PRN - will defer steroids for now unless needed as to avoid confusing possible infectious work up - O2 to keep SpO2 >90% - aspiration precautions - rate controlled - continue anticoagulation Thank you for this consult Eliezer Gallagher MD
[2018-01-20 13:29] LABS: ALBUMIN 2.6 g/dl (3.4-5.0); ANION GAP 7 (8-16); BILIRUBIN,TOTAL 0.7 mg/dL (0.2-1.0); BLOOD UREA NITROGEN 43 mg/dL (7-18); CALCIUM 8.1 mg/dL (8.5-10.1); CHLORIDE 99 mmol/L (98-107); CO2 24 mmol/L (21-32); CREATININE 1.5 mg/dL (0.7-1.3); GLUCOSE,RANDOM 164 mg/dL (74-106); POTASSIUM 5.1 mmol/L (3.5-5.1); SGOT/AST 271 U/L (15-37); SGPT/ALT 390 U/L (12-78); SODIUM 130 mmol/L (136-145); TOT PROT 6.7 g/dl (6.4-8.2)
[2018-01-20 13:30] LABS: ALK PHOS 375 U/L (45-117)
--- NOTE | 2018-01-20 13:34 | PN ---
Progress Note, Physician Chief Complaint: abdominal pain History of Present Illness: 83 yo male PMH CHF, Afib (on Coumadin 4mg), MS (s/p stents x2 and PPM), HTN, HLD , IDDM, hypothyroidism, and diverticulitis (s/p partial colectomy) who presents to the emergency department after discharge on 01/15, for evaluation froy confusion, weakness, and fatigue as per and VNS today. Found to have a new intraabdominal collection and abdominal pain. - Current Medication List Current Medications: Active Medications Acetaminophen (Tylenol -) 650 mg PO Q4H PRN PRN Reason: PAIN LEVEL 1 - 3 Al Hydroxide/Mg Hydroxide (Mylanta Oral Suspension -) 30 ml PO Q6H PRN PRN Reason: DYSPEPSIA Last Admin: 01/19/18 14:44 Dose: 30 ml Albuterol Sulfate (Ventolin 0.083% Nebulizer Soln -) 1 amp NEB Q4H PRN PRN Reason: SHORT OF BREATH/WHEEZING Albuterol/Ipratropium (Duoneb -) 1 amp NEB RQID [facility] Last Admin: 01/20/18 11:52 Dose: 1 amp Atorvastatin Calcium (Lipitor -) 80 mg PO HS [facility] Last Admin: 01/19/18 21:01 Dose: 80 mg Carvedilol (Coreg -) 6.25 mg PO BID [facility] Last Admin: 01/20/18 09:41 Dose: 6.25 mg Docusate Sodium (Colace -) 100 mg PO DAILY [facility] Last Admin: 01/20/18 09:41 Dose: 100 mg Duloxetine HCl (Cymbalta -) 60 mg PO DAILY [facility] Last Admin: 01/20/18 09:41 Dose: 60 mg Folic Acid (Folic Acid -) 1 mg PO DAILY [facility] Last Admin: 01/20/18 09:41 Dose: 1 mg Piperacillin Sod/Tazobactam (Sod 4.5 gm/ Sodium Chloride) 100 mls @ 200 mls/hr IVPB Q8H-IV MANAN PRN Reason: Protocol Insulin Aspart (Novolog Vial Sliding Scale -) 1 vial SQ ACHS MANAN PRN Reason: Protocol Last Admin: 01/20/18 11:45 Dose: Not Given Levothyroxine Sodium 125 mcg/ (Levothyroxine Sodium 50 mcg) 175 mcg PO DAILY@ 0700 [facility] Last Admin: 01/20/18 06:01 Dose: 175 mcg Methylnaltrexone [place] (Relistor -) 12 mg SQ DAILY [facility] Metoclopramide HCl (Reglan -) 5 mg PO TIDAC [facility] Last Admin: 01/20/18 11:49 Dose: 5 mg Montelukast Sodium (Singulair -) 10 mg PO HS [facility] Last Admin: 01/19/18 21:01 Dose: 10 mg Morphine Sulfate (Morphine Sulfate) 1 mg IVPUSH Q4H PRN PRN Reason: PAIN LEVEL 7 - 10 Pancrelipase (Creon Dr 36,000 Units Capsule) 1 cap PO TIDCM [facility] Last Admin: 01/20/18 11:50 Dose: 1 cap Pantoprazole Sodium (Protonix -) 40 mg PO BID [facility] Last Admin: 01/20/18 09:41 Dose: 40 mg Polyethylene Glycol (Miralax (For Daily Use) -) 17 gm PO BID [facility] Last Admin: 01/20/18 09:41 Dose: 17 gm Potassium Chloride (K-Dur -) 20 meq PO DAILY [facility] Last Admin: 01/20/18 09:41 Dose: 20 meq Rifaximin (Xifaxan -) 550 mg PO TID [facility] Stop: 02/02/18 14:01 Last Admin: 01/20/18 06:02 Dose: 550 mg Sodium Chloride ([place] Nasal [place] -) 2 spray NS Q8H PRN PRN Reason: NASAL CONGESTION Tramadol HCl (Ultram -) 50 mg PO Q8H PRN PRN Reason: PAIN LEVEL 4 - 6 Last Admin: 01/20/18 06:02 Dose: 50 mg Warfarin Sodium (Coumadin -) 4 mg PO DAILY@1800 [facility] Last Admin: 01/19/18 18:00 Dose: 4 mg - Objective Vital Signs: Vital Signs Temperature 97.8 F 01/20/18 10:00 Pulse Rate 74 01/20/18 10:00 Respiratory Rate 20 01/20/18 10:00 Blood Pressure 102/64 01/20/18 10:00 O2 Sat by Pulse Oximetry (%) 96 01/20/18 10:00 Vital Signs Period Temp Pulse Resp BP Sys/[place] Pulse Ox Last 24 Hr 97.7 F-99.5 F 69-79 18-20 100-108/52-70 96-98 Constitutional: Yes: No Distress, Calm, Obese Eyes: Yes: Conjunctiva Clear, EOM Intact HENT: Yes: Atraumatic, Normocephalic Neck: Yes: Supple, Trachea Midline Cardiovascular: Yes: Regular Rate and Rhythm, S1, S2 Respiratory: Yes: Regular, CTA Bilaterally Gastrointestinal: Yes: Normal Bowel Sounds, Soft, Abdomen, Obese, Distention ( minimal). No: Tenderness, Tenderness, Epigastrium, Tenderness, Rebound ...Rectal Exam: Yes: Deferred Genitourinary: No: CVA Tenderness - Left, CVA Tenderness - Right Extremities: No: Cool, Cyanosis Integumentary: No: Jaundice, Rash Neurological: Yes: Alert, Confusion Psychiatric: Yes: Alert Labs: CBC, BMP 01/20/18 10:15 INR, PTT INR 2.51 (0.82-1.09) H 01/18/18 08:28 Microbiology 01/17/18 11:08 Blood - Peripheral Venous Blood Culture - Preliminary NO GROWTH OBTAINED AFTER 72 HOURS, INCUBATION TO CONTINUE FOR 2 DAYS. 01/17/18 11:08 Blood - Peripheral Venous Blood Culture - Preliminary NO GROWTH OBTAINED AFTER 72 HOURS, INCUBATION TO CONTINUE FOR 2 DAYS. 01/17/18 12:27 Urine - Urine - Catheterized Urine Culture - Final NO GROWTH OBTAINED Problem List - Problems (1) Abdominal fluid collection Assessment/Plan: 82yo male MMP with abdominal distension and constipation and a new abdominal fluid collection, reviwed with Dr. Renee, there is no IR access but this not likely to be an abscess. Passing flatus and having BM. Cultures negative. No leukocystosis. If all other potential explanations for AMS are eliminated I would consider putting and drain in the collection laparoscopically. NPO and IVF hydration IV antibotics per ID Trend labs repeat lactic acid, tumor markers Serial abdominal exams will follow Code(s): R18.8 - OTHER ASCITES (2) Change in mental status Code(s): R41.82 - ALTERED MENTAL STATUS, UNSPECIFIED Qualifiers: Altered mental status type: unspecified Qualified Code(s): R41.82 - Altered mental status, unspecified (3) Fever Code(s): R50.9 - FEVER, UNSPECIFIED Qualifiers: Fever type: unspecified Qualified Code(s): R50.9 - Fever, unspecified (4) Urinary retention Code(s): R33.9 - RETENTION OF URINE, UNSPECIFIED (5) CAD (coronary artery disease) Code(s): I25.10 - ATHSCL HEART DISEASE OF [place] CORONARY ARTERY W/O ANG PCTRS Qualifiers: Coronary Disease-Associated Artery/Lesion type: unspecified vessel or lesion type [place] vs. transplanted heart: [place] heart Associated angina: angina presence unspecified Qualified Code(s): I25.10 - Atherosclerotic heart disease of [place] coronary artery without angina pectoris (6) CHF (congestive heart failure) Code(s): I50.9 - HEART FAILURE, UNSPECIFIED Qualifiers: Heart failure type: systolic Heart failure chronicity: acute on chronic Qualified Code(s): I50.23 - Acute on chronic systolic (congestive) heart failure (7) COPD (chronic obstructive pulmonary disease) Code(s): J44.9 - CHRONIC OBSTRUCTIVE PULMONARY DISEASE, UNSPECIFIED (8) Constipation Code(s): K59.00 - CONSTIPATION, UNSPECIFIED (9) Diabetes mellitus, insulin dependent (IDDM), uncontrolled Code(s): E10.65 - TYPE 1 DIABETES MELLITUS WITH HYPERGLYCEMIA Qualifiers:
[2018-01-20 14:15] LABS: CARCINOEMBRYONIC ANTIGEN 3.8 ng/mL (0.0-4.7)
[2018-01-20] MEDS ORDERED: FUROSEMIDE 40 MG/4 ML INJECTABLE VIAL IVPUSH ONE (14:36)
[2018-01-20] MEDS: Methylnaltrexone Bromide 12 MG/0.6 ML KIT SQ SCH (14:36)
--- NOTE | 2018-01-20 14:40 | PN ---
GI Progress Note Subjective: patient with SOB and confusion, C-xray consistent with mild CHF - Objective Vital Signs: Vital Signs Temperature 97.8 F 01/20/18 10:00 Pulse Rate 74 01/20/18 10:00 Respiratory Rate 20 01/20/18 10:00 Blood Pressure 102/64 01/20/18 10:00 O2 Sat by Pulse Oximetry (%) 96 01/20/18 10:00 Constitutional: Obese Eyes: Yes: Conjunctiva Clear HENT: Yes: Atraumatic Neck: Yes: Trachea Midline Cardiovascular: Yes: Regular Rate and Rhythm Respiratory: Yes: CTA Bilaterally Gastrointestinal Inspection: Yes: Distention ...Auscultate: Yes: Normoactive Bowel Sounds ...Palpate: Yes: Soft. No: Firm/Rigid, Guarding, Hepatomegaly, Mass, Pulsatile Mass, Splenomegaly ...Percussion: Yes: Tympanitic Labs: CBC, BMP 01/20/18 10:15 01/20/18 10:25 INR, PTT INR 2.51 (0.82-1.09) H 01/18/18 08:28 Problem List - Problems (1) Urinary retention Code(s): R33.9 - RETENTION OF URINE, UNSPECIFIED (2) Abdominal pain Code(s): R10.9 - UNSPECIFIED ABDOMINAL PAIN Qualifiers: Abdominal location: right upper quadrant Qualified Code(s): R10.11 - Right upper quadrant pain (3) IBS (irritable bowel syndrome) Assessment/Plan: Relistor not given yesterday , it was out of stock, patient to receive first dose today, Code(s): K58.9 - IRRITABLE BOWEL SYNDROME WITHOUT DIARRHEA Qualifiers: Qualified Code(s): K58.9 - Irritable bowel syndrome without diarrhea (4) Pelvic fluid collection Code(s): R18.8 - OTHER ASCITES
--- NOTE | 2018-01-20 15:01 | PN ---
Progress Note, Physician Chief Complaint: Abdominal Pain History of Present Illness: in bed events overnight ordered, was SOB, confused repeat CXR this AM shows congestive changes furosemide 40 mg po once solumedrol 40 mg once NPO except meds and ice chips until MBS is done, he is coughing during meals - Current Medication List Current Medications: Active Medications Acetaminophen (Tylenol -) 650 mg PO Q4H PRN PRN Reason: PAIN LEVEL 1 - 3 Al Hydroxide/Mg Hydroxide ([place] Oral Suspension -) 30 ml PO Q6H PRN PRN Reason: DYSPEPSIA Last Admin: 01/19/18 14:44 Dose: 30 ml Albuterol Sulfate (Ventolin 0.083% Nebulizer Soln -) 1 amp NEB Q4H PRN PRN Reason: SHORT OF BREATH/WHEEZING Albuterol/Ipratropium (Duoneb -) 1 amp NEB RQID [facility] Last Admin: 01/20/18 11:52 Dose: 1 amp Atorvastatin Calcium (Lipitor -) 80 mg PO HS [facility] Last Admin: 01/19/18 21:01 Dose: 80 mg Carvedilol (Coreg -) 6.25 mg PO BID [facility] Last Admin: 01/20/18 09:41 Dose: 6.25 mg Docusate Sodium (Colace -) 100 mg PO DAILY [facility] Last Admin: 01/20/18 09:41 Dose: 100 mg Duloxetine HCl (Cymbalta -) 60 mg PO DAILY [facility] Last Admin: 01/20/18 09:41 Dose: 60 mg Folic Acid (Folic Acid -) 1 mg PO DAILY [facility] Last Admin: 01/20/18 09:41 Dose: 1 mg Furosemide (Lasix Injection -) 40 mg IVPUSH DAILY [facility] Piperacillin Sod/Tazobactam (Sod 4.5 gm/ Sodium Chloride) 100 mls @ 200 mls/hr IVPB Q8H-IV MANAN PRN Reason: Protocol Insulin Aspart (Novolog Vial Sliding Scale -) 1 vial SQ ACHS MANAN PRN Reason: Protocol Last Admin: 01/20/18 11:45 Dose: Not Given Levothyroxine Sodium 125 mcg/ (Levothyroxine Sodium 50 mcg) 175 mcg PO DAILY@ 0700 [facility] Last Admin: 01/20/18 06:01 Dose: 175 mcg Methylnaltrexone [place] (Relistor -) 12 mg SQ DAILY [facility] Last Admin: 01/20/18 14:36 Dose: 12 mg Metoclopramide HCl (Reglan -) 5 mg PO TIDAC [facility] Last Admin: 01/20/18 11:49 Dose: 5 mg Montelukast Sodium (Singulair -) 10 mg PO HS [facility] Last Admin: 01/19/18 21:01 Dose: 10 mg Morphine Sulfate (Morphine Sulfate) 1 mg IVPUSH Q4H PRN PRN Reason: PAIN LEVEL 7 - 10 Pancrelipase (Creon Dr 36,000 Units Capsule) 1 cap PO TIDCM [facility] Last Admin: 01/20/18 11:50 Dose: 1 cap Pantoprazole Sodium (Protonix -) 40 mg PO BID [facility] Last Admin: 01/20/18 09:41 Dose: 40 mg Polyethylene Glycol (Miralax (For Daily Use) -) 17 gm PO BID [facility] Last Admin: 01/20/18 09:41 Dose: 17 gm Potassium Chloride (K-Dur -) 20 meq PO DAILY [facility] Last Admin: 01/20/18 09:41 Dose: 20 meq Rifaximin (Xifaxan -) 550 mg PO TID [facility] Stop: 02/02/18 14:01 Last Admin: 01/20/18 06:02 Dose: 550 mg Sodium Chloride ([place] Nasal [place] -) 2 spray NS Q8H PRN PRN Reason: NASAL CONGESTION Tramadol HCl (Ultram -) 50 mg PO Q8H PRN PRN Reason: PAIN LEVEL 4 - 6 Last Admin: 01/20/18 06:02 Dose: 50 mg Warfarin Sodium (Coumadin -) 4 mg PO DAILY@1800 [facility] Last Admin: 01/19/18 18:00 Dose: 4 mg - Objective Vital Signs: Vital Signs Temperature 97.8 F 01/20/18 10:00 Pulse Rate 74 01/20/18 10:00 Respiratory Rate 20 01/20/18 10:00 Blood Pressure 102/64 01/20/18 10:00 O2 Sat by Pulse Oximetry (%) 96 01/20/18 10:00 Constitutional: Yes: Well Nourished, No Distress, Calm Cardiovascular: Yes: Regular Rate and Rhythm Respiratory: Yes: Cough, Diminished, On Nasal O2, [place] (BLLL), SOB on Exertion , Tachypnea Gastrointestinal: Yes: Normal Bowel Sounds, Soft Musculoskeletal: Yes: Muscle Weakness Edema: Yes Edema: LLE: Trace, RLE: Trace Peripheral Pulses WNL: Yes Neurological: Yes: Alert, Pre-Existing Deficit Psychiatric: Yes: Alert Labs: CBC, BMP 01/20/18 10:15 01/20/18 10:25 INR, PTT INR 2.51 (0.82-1.09) H 01/18/18 08:28 Problem List - Problems (1) Abdominal fluid collection Assessment/Plan: -seen by Surgery -minimal, no invasive intervention indicated at this time Code(s): R18.8 - OTHER ASCITES (2) THERON (acute kidney injury) Assessment/Plan: -nephrology consult -monitor trend Code(s): N17.9 - ACUTE KIDNEY FAILURE, UNSPECIFIED (3) CAD (coronary artery disease) Assessment/Plan: -statin -cardiology consult appreciated Code(s): I25.10 - ATHSCL HEART DISEASE OF [place] CORONARY ARTERY W/O ANG PCTRS Qualifiers: Coronary Disease-Associated Artery/Lesion type: unspecified vessel or lesion type [place] vs. transplanted heart: [place] heart Associated angina: angina presence unspecified Qualified Code(s): I25.10 - Atherosclerotic heart disease of [place] coronary artery without angina pectoris (4) CHF (congestive heart failure) Assessment/Plan: -Furosemide 40 mg IVP now, then daily -I&O's -bronchodilators -seen by cardiology and pulmonary Code(s): I50.9 - HEART FAILURE, UNSPECIFIED Qualifiers: Heart failure type: systolic Heart failure chronicity: acute on chronic Qualified Code(s): I50.23 - Acute on chronic systolic (congestive) heart failure (5) Paroxysmal atrial fibrillation Assessment/Plan: -on Warfarin -Daily INR's Code(s): I48.0 - PAROXYSMAL ATRIAL FIBRILLATION (6) Aspiration into respiratory tract Assessment/Plan: -speech therapy -NPO -MBS Code(s): T17.908A - UNSP FB IN RESP TRACT, PART UNSP CAUSING OTH INJURY, INIT Assessment/Plan see problem list
[2018-01-20 16:21] LABS: ALLENS TEST POSITIVE; ARTERIAL BLD GAS O2 SATURATION 98.2 % (90-98.9); ARTERIAL BLOOD GAS BASE EXCESS -2.2 meq/l (-2-2); ARTERIAL BLOOD GAS PCO2 41.3 mmHg (35-45); ARTERIAL BLOOD GAS pH 7.36 (7.35-7.45)
[2018-01-20 17:04] LABS: PROTHROMBIN TIME (PATIENT) 55.4 SEC (9.7-13.0)
[2018-01-20 17:10] LABS: INR 4.9 (0.82-1.09)
[2018-01-20] MEDS ORDERED: SODIUM CHLORIDE 100 ML IVPB ONE (17:26)
[2018-01-20] MEDS: WARFARIN NA 2 MG TABLET (UD) PO SCH (17:31)
[2018-01-20] MEDS: PIPERACILLIN/TAZOB 4.5 GM 4.5 GM in SODIUM CHLORIDE 100 ML IVPB SCH (17:51)
[2018-01-20 18:16] VITALS: BMI 36.8
--- NOTE | 2018-01-20 18:16 | CON.NEP ---
Consult Consult Specialty:: nephrology Referred by:: robi bradford Reason for Consultation:: azotemia - History of Present Illness Chief Complaint: sob, malaise History of Present Illness: retuned to the hosp after eval of confusion and weakness/fatigue previously been seen in er and discharged this time he c/o nausea chills and thirst also chest pain and uncontrolled blood sugars PMHx copd, htn hld dm hypothyroidism h/o diverticulitis s/p partial colectomy cad/chf/paf on coumadin h/o mi /p stents x2 ppm ?aspiration risk - History Source History Provided By: Medical Record Limitations to Obtaining History: Dementia - Past 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 No: Alzheimer's Cardio/Vascular: Yes: AFIB, Aneurysm (mild ascending aortic aneurysm (4.2 cm) per 01/[address]), CAD (stents x2 in 2010; thrombectomy & PCI of proximal and mid LAD with Promus Premier stents and PTCA of D1 on 12/18/15 at [facility] for acute/subacute anteroseptal CT), CHF, HTN, Hyperlipdemia, Other (ischemic cardiomyopathy (LVEF 34% per 02/16/16 nuclear study)) Gastrointestinal: Yes: Constipation, Diverticulosis Musculoskeletal: Yes: Other (rib fx's right) Endocrine: Yes: Diabetes Mellitus, Hypothyroidism - Past Surgical History Past Surgical History: Yes: Arthrosocopy (Right knee arthroscopy w/ partial medial and lateral meniscectomy 09/01/15), Colectomy - Alcohol/Substance Use Hx Alcohol Use: No History of Substance Use: reports: None - Smoking History Smoking history: Former smoker Have you smoked in the past 12 months: No Aproximately how many cigarettes per day: 0 If you are a former smoker, when did you quit?: 40 years ago - Social History Usual Living Arrangement: [facility] (since last d/c) 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 History of Recent Travel: No Home Medications - Allergies Allergies/Adverse Reactions: Allergies Allergy/AdvReac Type Severity Reaction Status Date / Time No Known Drug Allergies Allergy Verified 01/17/18 12:06 - Home Medications Home Medications: Ambulatory Orders Duloxetine HCl [Cymbalta -] 60 mg PO DAILY 09/25/17 Folic Acid 1 mg PO DAILY 09/25/17 Levothyroxine [Synthroid -] 175 mcg PO DAILY 09/25/17 Spironolactone 25 mg PO DAILY 09/25/17 Albuterol 2.5/Ipratropium 0.5 [Duoneb -] 1 amp NEB RQID amp 12/14/17 Atorvastatin Ca [Lipitor] 80 mg PO HS tablet 12/14/17 Montelukast Na [Singulair -] 10 mg PO HS tablet 12/14/17 Tamsulosin HCl [Flomax -] 0.4 mg PO DAILY@0830 cap.er.24h 12/14/17 Alprazolam 0.25 mg PO TID 01/04/18 Docusate Sodium 100 mg PO DAILY 01/04/18 Furosemide [Lasix -] 40 mg PO BID 01/04/18 Gabapentin 100 mg PO BID 01/04/18 Potassium Chloride [K-Dur -] 20 meq PO DAILY 01/04/18 Warfarin Sodium [Coumadin] 4 mg PO DAILY 01/04/18 Carvedilol [Coreg -] 6.25 mg PO BID #60 tablet 01/15/18 Loratadine [Claritin -] 10 mg PO DAILY tablet 01/15/18 Polyethylene Glycol 3350 [Miralax 119 gm Btl -] 17 gm PO BID bottle 01/15/18 Sodium Chloride Nasal [place] [[place] Nasal [place] -] 2 spray NS TID PRN spray 01/15/18 levoFLOXacin [Levaquin -] 500 mg PO DAILY #5 tablet 01/15/18 Review of Systems - Review of Systems Respiratory: reports: SOB, SOB on Exertion Nephrology Consult - Height Height: 5 ft 5 in - Weight Weight: 221 lb 3.2 oz - BMI Body Mass Index (BMI): 36.8 - Lab Results CBC,BMP: CBC, BMP 01/20/18 10:15 01/20/18 10:25 Anion Gap: Anion Gap Anion Gap 7 (8-16) L 01/20/18 10:25 - Physical Examination Vital Signs: Vital Signs Temperature 98.8 F 01/20/18 14:22 Pulse Rate 80 01/20/18 14:22 Respiratory Rate 24 01/20/18 14:22 Blood Pressure 114/66 01/20/18 14:22 O2 Sat by Pulse Oximetry (%) 96 01/20/18 10:00 Constitutional: Yes: Anxious, Obese Eyes: Yes: WNL, Conjunctiva Clear, EOM Intact HENT: Yes: WNL, Atraumatic, Normocephalic Neck: Yes: WNL, Supple, Trachea Midline Cardiovascular: Yes: WNL, Regular Rate and Rhythm Respiratory: Yes: Cough, On Venti-Mask, Rhonchi Gastrointestinal: Yes: Abdomen, Obese, Distention Musculoskeletal: Yes: WNL Extremities: Yes: WNL Edema: Yes Peripheral Pulses WNL: No Integumentary: Yes: WNL Neurological: Yes: WNL, Alert, Oriented Psychiatric: Yes: WNL, Alert, Oriented Assessment/Plan acute kidney dysfunction in setting of acute illness with acute resp component/aspiration generalized constitutional symptoms like fever/chills/malaise/and resp distress Plan- strict I and O monitor and trend renal profile daily weights
[2018-01-20] MEDS: ATORVASTATIN CA 80 MG TABLET (FP) PO SCH (21:16)
[2018-01-20] MEDS: MONTELUKAST NA 10 MG TABLET PO SCH (21:16)
[2018-01-21] MEDS ORDERED: SODIUM CHLORIDE 100 ML IVPB ONE ×2 (01:55→08:37)
[2018-01-21] MEDS ORDERED: PIPERACILLIN/TAZOBACTAM 4.5 GM VIAL IVPB ONE ×2 (01:55→08:37)
[2018-01-21] MEDS: PIPERACILLIN/TAZOB 4.5 GM 4.5 GM in SODIUM CHLORIDE 100 ML IVPB SCH ×2 (02:07→09:17)
[2018-01-21] MEDS ORDERED: LEVOTHYROXINE NA 50 MCG TABLET (FP) ONE (06:19)
[2018-01-21] MEDS ORDERED: LEVOTHYROXINE NA 125 MCG TABLET (FP) ONE (06:19)
[2018-01-21] MEDS: RIFAXIMIN 550 MG TABLET (UD) PO SCH ×3 (06:26→22:49)
[2018-01-21] MEDS: INSULIN SLIDING SCALE (NOVOLOG) 1 VIAL SQ SCH ×4 (06:26→22:49)
[2018-01-21] MEDS: LEVOTHYROXINE 125 MCG, LEVOTHYROXINE 50 MCG PO SCH (06:27)
[2018-01-21] MEDS: METOCLOPRAMIDE HCL 10 MG TABLET (FP) PO SCH ×3 (06:28→17:38)
[2018-01-21 06:56] LABS: BASO % 0.1 % (0-2.0); HEMATOCRIT 29.4 % (35.4-49); HEMOGLOBIN 9.9 GM/dL (11.7-16.9); LYMPH % 3.7 % (8-40); MCH 28.5 pg (25.7-33.7); MCHC 33.6 g/dl (32.0-35.9); MEAN PLT VOLUME 9.6 fl (7.5-11.1); MONO % 8.8 % (3.8-10.2); NEUT % 87.4 % (42.8-82.8); PLATELET COUNT 202 K/MM3 (134-434); RBC 3.46 M/mm3 (4.00-5.60); RDW 17.8 % (11.9-15.9); WHITE BLOOD COUNT 4.9 K/mm3 (4.0-10.0)
[2018-01-21 07:14] LABS: PROTHROMBIN TIME (PATIENT) 65.2 SEC (9.7-13.0)
[2018-01-21 07:18] LABS: INR 5.77 (0.82-1.09)
[2018-01-21 07:20] LABS: ALBUMIN 2.7 g/dl (3.4-5.0); ANION GAP 10 (8-16); BLOOD UREA NITROGEN 56 mg/dL (7-18); CALCIUM 8.7 mg/dL (8.5-10.1); CHLORIDE 95 mmol/L (98-107); CO2 24 mmol/L (21-32); POTASSIUM 5.8 mmol/L (3.5-5.1); SODIUM 129 mmol/L (136-145)
[2018-01-21] MEDS: ALBUTEROL SO4 2.5/IPRATROPIUM 0.5 INH SOL 3 ML VIAL.NEB. NEB SCH ×4 (07:20→20:30)
[2018-01-21 07:25] LABS: ALK PHOS 391 U/L (45-117); BILIRUBIN,TOTAL 0.9 mg/dL (0.2-1.0); CREATININE 1.7 mg/dL (0.7-1.3); SGOT/AST 138 U/L (15-37); SGPT/ALT 325 U/L (12-78); TOT PROT 6.9 g/dl (6.4-8.2)
[2018-01-21 07:43] LABS: GLUCOSE,RANDOM 388 mg/dL (74-106)
[2018-01-21] MEDS: DULoxetine HCL 30 MG CAPSULE.DR (FP) PO SCH (09:16)
[2018-01-21] MEDS: LIPASE/PROTEASE/AMYLASE 36,000 UNIT CAPSULE PO SCH ×3 (09:16→17:38)
[2018-01-21] MEDS: CARVEDILOL 6.25 MG TABLET (FP) PO SCH ×2 (09:16→22:49)
[2018-01-21] MEDS: DOCUSATE SODIUM 100 MG CAPSULE (FP) PO SCH (09:16)
[2018-01-21] MEDS: FUROSEMIDE 40 MG/4 ML INJECTABLE VIAL IVPUSH SCH (09:17)
[2018-01-21] MEDS: POTASSIUM CHLORIDE TABS 20 MEQ TABLET.ER (FP) PO SCH (09:17)
[2018-01-21] MEDS: PANTOPRAZOLE 40 MG TABLET (FP) PO SCH ×2 (09:17→22:48)
[2018-01-21] MEDS: FOLIC ACID 1 MG TABLET (FP) PO SCH (09:17)
[2018-01-21] MEDS: POLYETHYLENE GLYCOL 3350 119 GM BTL PO SCH ×2 (09:17→22:50)
[2018-01-21] MEDS ORDERED: INSULIN (NOVOLOG) ASPART 100 UNITS/ML 10ML VIAL ONE (11:03)
--- NOTE | 2018-01-21 11:44 | PN ---
Progress Note, Physician History of Present Illness: PULMONARY ALERT,C/O ABD DISCOMFORT,-RESP DISTRESS - Current Medication List Current Medications: Active Medications Al Hydroxide/Mg Hydroxide (Mylanta Oral Suspension -) 30 ml PO Q6H PRN PRN Reason: DYSPEPSIA Last Admin: 01/19/18 14:44 Dose: 30 ml Albuterol Sulfate (Ventolin 0.083% Nebulizer Soln -) 1 amp NEB Q4H PRN PRN Reason: SHORT OF BREATH/WHEEZING Albuterol/Ipratropium (Duoneb -) 1 amp NEB RQID [facility] Last Admin: 01/21/18 07:20 Dose: 1 amp Carvedilol (Coreg -) 6.25 mg PO BID [facility] Last Admin: 01/21/18 09:16 Dose: 6.25 mg Docusate Sodium (Colace -) 100 mg PO DAILY [facility] Last Admin: 01/21/18 09:16 Dose: 100 mg Duloxetine HCl (Cymbalta -) 60 mg PO DAILY [facility] Last Admin: 01/21/18 09:16 Dose: 60 mg Folic Acid (Folic Acid -) 1 mg PO DAILY [facility] Last Admin: 01/21/18 09:17 Dose: 1 mg Furosemide (Lasix Injection -) 40 mg IVPUSH DAILY [facility] Last Admin: 01/21/18 09:17 Dose: 40 mg Piperacillin Sod/Tazobactam (Sod 4.5 gm/ Sodium Chloride) 100 mls @ 200 mls/hr IVPB Q8H-IV MANAN PRN Reason: Protocol Last Admin: 01/21/18 09:17 Dose: 200 mls/hr Insulin Aspart (Novolog Vial Sliding Scale -) 1 vial SQ ACHS MANAN PRN Reason: Protocol Last Admin: 01/21/18 06:26 Dose: 10 units Levothyroxine Sodium 125 mcg/ (Levothyroxine Sodium 50 mcg) 175 mcg PO DAILY@ 0700 [facility] Last Admin: 01/21/18 06:27 Dose: 175 mcg Methylnaltrexone [place] (Relistor -) 12 mg SQ DAILY [facility] Last Admin: 01/20/18 14:36 Dose: 12 mg Metoclopramide HCl (Reglan -) 5 mg PO TIDAC [facility] Last Admin: 01/21/18 06:28 Dose: 5 mg Montelukast Sodium (Singulair -) 10 mg PO HS [facility] Last Admin: 01/20/18 21:16 Dose: 10 mg Morphine Sulfate (Morphine Sulfate) 1 mg IVPUSH Q4H PRN PRN Reason: PAIN LEVEL 7 - 10 Pancrelipase (Creon Dr 36,000 Units Capsule) 1 cap PO TIDCM [facility] Last Admin: 01/21/18 09:16 Dose: 1 cap Pantoprazole Sodium (Protonix -) 40 mg PO BID [facility] Last Admin: 01/21/18 09:17 Dose: 40 mg Polyethylene Glycol (Miralax (For Daily Use) -) 17 gm PO BID [facility] Last Admin: 01/21/18 09:17 Dose: 17 gm Rifaximin (Xifaxan -) 550 mg PO TID [facility] Stop: 02/02/18 14:01 Last Admin: 01/21/18 06:26 Dose: Not Given Sodium Chloride ([place] Nasal [place] -) 2 spray NS Q8H PRN PRN Reason: NASAL CONGESTION Tramadol HCl (Ultram -) 50 mg PO Q8H PRN PRN Reason: PAIN LEVEL 4 - 6 Last Admin: 01/20/18 06:02 Dose: 50 mg - Objective Vital Signs: Vital Signs Temperature 98.8 F 01/21/18 10:00 Pulse Rate 76 01/21/18 10:00 Respiratory Rate 20 01/21/18 10:00 Blood Pressure 126/46 01/21/18 10:00 O2 Sat by Pulse Oximetry (%) 96 01/20/18 21:00 Constitutional: Yes: Well Nourished, Calm Eyes: Yes: WNL HENT: Yes: WNL Neck: Yes: WNL Cardiovascular: Yes: Regular Rate and Rhythm, S1, S2 Respiratory: Yes: Wheezes (SCATTERED [place] WHEEZES) Gastrointestinal: Yes: Normal Bowel Sounds, Soft Extremities: Yes: WNL Edema: Yes Edema: LLE: Trace, RLE: Trace Labs: CBC, BMP 01/21/18 06:26 01/21/18 06:26 INR, PTT INR 5.77 (0.82-1.09) H* 01/21/18 06:26 Assessment/Plan Problem List - Problems (1) Acute on chronic systolic (congestive) heart failure Code(s): I50.23 - ACUTE ON CHRONIC SYSTOLIC (CONGESTIVE) HEART FAILURE (2) Abdominal fluid collection Code(s): R18.8 - OTHER ASCITES (3) Change in mental status Code(s): R41.82 - ALTERED MENTAL STATUS, UNSPECIFIED Qualifiers: Altered mental status type: unspecified Qualified Code(s): R41.82 - Altered mental status, unspecified (4) CAD (coronary artery disease) Code(s): I25.10 - ATHSCL HEART DISEASE OF [place] CORONARY ARTERY W/O ANG PCTRS Qualifiers: Coronary Disease-Associated Artery/Lesion type: unspecified vessel or lesion type [place] vs. transplanted heart: [place] heart Associated angina: angina presence unspecified Qualified Code(s): I25.10 - Atherosclerotic heart disease of [place] coronary artery without angina pectoris (5) Diabetes Code(s): E11.9 - TYPE 2 DIABETES MELLITUS WITHOUT COMPLICATIONS Qualifiers: Diabetes mellitus type: type 2 Diabetes mellitus complication detail: with other neurological complication (6) Hyponatremia Code(s): E87.1 - HYPO-OSMOLALITY AND HYPONATREMIA (7) Atrial fibrillation Code(s): I48.91 - UNSPECIFIED ATRIAL FIBRILLATION Qualifiers: Atrial fibrillation type: paroxysmal Qualified Code(s): I48.0 - Paroxysmal atrial fibrillation Assessment/Plan Intra-abdominal Fluid Collection r/o Sepsis Altered Mental Status improved Hyponatremia Acute on Chronic Systolic Heart Failure Atrial Fibrillation CAD HTN DM Hypothyroidism h/o Diverticulitis - antibiotics per ID - would give lasix as CXR congested and wheezes may be related to cardiac wheeze - monitor urine output, creatinine - monitor lytes - inhaled bronchodilators standing and PRN - O2 to keep SpO2 >90% - aspiration precautions - rate controlled - f/u chest x-rays DR SPRINGER
--- NOTE | 2018-01-21 13:33 | PN ---
Progress Note (short form) - Note Progress Note: confused wearing a jeanette asking for water to drink +BM-hard stools Vital Signs Period Temp Pulse Resp BP Sys/[place] Pulse Ox Last 24 Hr 97.0 F-99 F 65-80 20-24 101-126/46-69 95-96 cor-rrr llungs decreased bs at bases abd soft, reports discomfort everywhere on palpation ext +edema +martin CBC, BMP 01/21/18 06:26 01/21/18 06:26 Microbiology 01/17/18 11:08 Blood - Peripheral Venous Blood Culture - Preliminary NO GROWTH OBTAINED AFTER 96 HOURS, INCUBATION TO CONTINUE FOR 1 DAYS. 01/17/18 11:08 Blood - Peripheral Venous Blood Culture - Preliminary NO GROWTH OBTAINED AFTER 96 HOURS, INCUBATION TO CONTINUE FOR 1 DAYS. 01/17/18 12:27 Urine - Urine - Catheterized Urine Culture - Final NO GROWTH OBTAINED a/p r/o intra-abdominal abscess- new flluid collection in setting of chronic constipation and abdominal pain continue zosyn re-image per GI abnl lfts-s/p choly, no ductal dilation seen on ct scan urinary retention chf/cad elevated creatinine- adjust zosyn dose Problem List - Problems (1) Fever Code(s): R50.9 - FEVER, UNSPECIFIED Qualifiers: Fever type: unspecified Qualified Code(s): R50.9 - Fever, unspecified (2) Abdominal fluid collection Code(s): R18.8 - OTHER ASCITES (3) Urinary retention Code(s): R33.9 - RETENTION OF URINE, UNSPECIFIED (4) Diabetes mellitus, insulin dependent (IDDM), uncontrolled Code(s): E10.65 - TYPE 1 DIABETES MELLITUS WITH HYPERGLYCEMIA Qualifiers:
[2018-01-21] MEDS: Methylnaltrexone Bromide 12 MG/0.6 ML KIT SQ SCH (14:07)
--- NOTE | 2018-01-21 14:35 | PN ---
Progress Note, Physician Chief Complaint: AWAKE CONFUSED TOMI SHIELDS FOR SAFETY SISTER BEDSIDE - Current Medication List Current Medications: Active Medications Al Hydroxide/Mg Hydroxide (Mylanta Oral Suspension -) 30 ml PO Q6H PRN PRN Reason: DYSPEPSIA Last Admin: 01/19/18 14:44 Dose: 30 ml Albuterol Sulfate (Ventolin 0.083% Nebulizer Soln -) 1 amp NEB Q4H PRN PRN Reason: SHORT OF BREATH/WHEEZING Albuterol/Ipratropium (Duoneb -) 1 amp NEB RQID [facility] Last Admin: 01/21/18 11:15 Dose: 1 amp Carvedilol (Coreg -) 6.25 mg PO BID [facility] Last Admin: 01/21/18 09:16 Dose: 6.25 mg Docusate Sodium (Colace -) 100 mg PO DAILY [facility] Last Admin: 01/21/18 09:16 Dose: 100 mg Duloxetine HCl (Cymbalta -) 60 mg PO DAILY [facility] Last Admin: 01/21/18 09:16 Dose: 60 mg Folic Acid (Folic Acid -) 1 mg PO DAILY [facility] Last Admin: 01/21/18 09:17 Dose: 1 mg Furosemide (Lasix Injection -) 40 mg IVPUSH DAILY [facility] Last Admin: 01/21/18 09:17 Dose: 40 mg Piperacillin Sod/Tazobactam (Sod 3.375 gm/ Dextrose) 50 mls @ 100 mls/hr IVPB Q8H-IV MANAN PRN Reason: Protocol Insulin Aspart (Novolog Vial Sliding Scale -) 1 vial SQ ACHS MANAN PRN Reason: Protocol Last Admin: 01/21/18 12:15 Dose: 10 units Levothyroxine Sodium 125 mcg/ (Levothyroxine Sodium 50 mcg) 175 mcg PO DAILY@ 0700 [facility] Last Admin: 01/21/18 06:27 Dose: 175 mcg Methylnaltrexone [place] (Relistor -) 12 mg SQ DAILY [facility] Last Admin: 01/21/18 14:07 Dose: 12 mg Metoclopramide HCl (Reglan -) 5 mg PO TIDAC [facility] Last Admin: 01/21/18 12:41 Dose: Not Given Montelukast Sodium (Singulair -) 10 mg PO HS [facility] Last Admin: 01/20/18 21:16 Dose: 10 mg Morphine Sulfate (Morphine Sulfate) 1 mg IVPUSH Q4H PRN PRN Reason: PAIN LEVEL 7 - 10 Pancrelipase ([place] Dr 36,000 Units Capsule) 1 cap PO TIDCM [facility] Last Admin: 01/21/18 12:41 Dose: Not Given Pantoprazole Sodium (Protonix -) 40 mg PO BID [facility] Last Admin: 01/21/18 09:17 Dose: 40 mg Phytonadione ([place] Injection -) 2.5 mg SQ ONCE ONE Stop: 01/21/18 14:35 Polyethylene Glycol (Miralax (For Daily Use) -) 17 gm PO BID [facility] Last Admin: 01/21/18 09:17 Dose: 17 gm Rifaximin (Xifaxan -) 550 mg PO TID [facility] Stop: 02/02/18 14:01 Last Admin: 01/21/18 14:08 Dose: 550 mg Sodium Chloride ([place] Nasal [place] -) 2 spray NS Q8H PRN PRN Reason: NASAL CONGESTION Tramadol HCl (Ultram -) 50 mg PO Q8H PRN PRN Reason: PAIN LEVEL 4 - 6 Last Admin: 01/20/18 06:02 Dose: 50 mg - Objective Vital Signs: Vital Signs Temperature 98.8 F 01/21/18 10:00 Pulse Rate 76 01/21/18 10:00 Respiratory Rate 20 01/21/18 10:00 Blood Pressure 126/46 01/21/18 10:00 O2 Sat by Pulse Oximetry (%) 95 01/21/18 10:20 Constitutional: Yes: Mild Distress Eyes: Yes: WNL HENT: Yes: WNL Neck: Yes: WNL Cardiovascular: Yes: WNL Respiratory: Yes: WNL Gastrointestinal: Yes: Distention, Tenderness Genitourinary: Yes: Incontinence Musculoskeletal: Yes: Back Pain, Muscle Weakness Extremities: Yes: WNL Edema: Yes Peripheral Pulses WNL: Yes Integumentary: Yes: WNL Wound/Incision: Yes: Clean/Dry Neurological: Yes: Confusion ...Motor Strength: LLE, RLE Psychiatric: Yes: Agitated Labs: CBC, BMP 01/21/18 06:26 01/21/18 06:26 INR, PTT INR 5.77 (0.82-1.09) H* 01/21/18 06:26 Problem List - Problems (1) Abdominal fluid collection Code(s): R18.8 - OTHER ASCITES (2) Aspiration into respiratory tract Code(s): T17.908A - UNSP FB IN RESP TRACT, PART UNSP CAUSING OTH INJURY, INIT (3) Change in mental status Code(s): R41.82 - ALTERED MENTAL STATUS, UNSPECIFIED Qualifiers: Altered mental status type: unspecified Qualified Code(s): R41.82 - Altered mental status, unspecified (4) Fever Code(s): R50.9 - FEVER, UNSPECIFIED Qualifiers: Fever type: unspecified Qualified Code(s): R50.9 - Fever, unspecified (5) Paroxysmal atrial fibrillation Code(s): I48.0 - PAROXYSMAL ATRIAL FIBRILLATION (6) Pelvic fluid collection Code(s): R18.8 - OTHER ASCITES (7) Urinary retention Code(s): R33.9 - RETENTION OF URINE, UNSPECIFIED (8) Abdominal pain Code(s): R10.9 - UNSPECIFIED ABDOMINAL PAIN Qualifiers: Abdominal location: right upper quadrant Qualified Code(s): R10.11 - Right upper quadrant pain (9) Type 2 diabetes mellitus with diabetic chronic kidney disease Code(s): E11.22 - TYPE 2 DIABETES MELLITUS W DIABETIC CHRONIC KIDNEY DISEASE (10) Type 2 diabetes mellitus with other diabetic kidney complication Code(s): E11.29 - TYPE 2 DIABETES MELLITUS W OTH DIABETIC KIDNEY COMPLICATION Assessment/Plan INR ELEVATED 5.77 VITK 2.5MG X 1 SQ CHECK LABS IN AM ABX PER ID RESTRAINTS FOR SAFETY WILL NEED PLACEMENT SNF ABD COLLECTION NOT A CANDIDATE FOR SURGERY AT THIS TIME GI/RENAL EVAL
[2018-01-21] MEDS ORDERED: PHYTONADIONE 10 MG/1 ML AMP SQ ONE (15:15)
[2018-01-21] MEDS ORDERED: PIPERACILLIN/TAZOBACTAM 3.375 GM VIAL IVPB ONE (16:59)
[2018-01-21] MEDS ORDERED: DEXTROSE 5%-WATER - 50 ML IVPB ONE (17:00)
[2018-01-21 17:05] LABS: ANION GAP 7 (8-16); BLOOD UREA NITROGEN 58 mg/dL (7-18); CALCIUM 8.3 mg/dL (8.5-10.1); CHLORIDE 97 mmol/L (98-107); CO2 25 mmol/L (21-32); CREATININE 1.9 mg/dL (0.7-1.3); POTASSIUM 5.4 mmol/L (3.5-5.1); SODIUM 129 mmol/L (136-145)
[2018-01-21 17:11] LABS: GLUCOSE,RANDOM 356 mg/dL (74-106)
[2018-01-21] MEDS: PIPERACILLIN/TAZOB 3.375 GM 3.375 GM in DEXTROSE 5%-WATER - 50 ML IVPB SCH (17:34)
--- NOTE | 2018-01-21 19:38 | PN ---
Progress Note (short form) - Note Progress Note: Renal follow up for THERON on CKD and Hyponatremia Pt seen and examined at the bedside awake and alert family at the bedside making urine via martin has mild sob + abd pain no diarrhea Vital Signs Temperature 98.1 F 01/21/18 17:25 Pulse Rate 73 01/21/18 17:25 Respiratory Rate 18 01/21/18 17:25 Blood Pressure 116/71 01/21/18 17:25 O2 Sat by Pulse Oximetry (%) 95 01/21/18 10:20 Intake & Output 01/18/18 01/19/18 01/20/18 01/21/18 23:59 23:59 23:59 23:59 Intake Total 310 1200 960 Output Total 0636 355 1736 850 Balance -1670 250 -690 -850 Weight 100.335 kg 100.335 kg NAD awake and alert MMM no JVD irregular dec BS soft NT/ND Trace LE edema CBC, BMP 01/21/18 06:26 01/21/18 16:20 Current Medications Al Hydroxide/Mg Hydroxide (Myl[place] Oral Suspension -) 30 ml PO Q6H PRN PRN Reason: DYSPEPSIA Last Admin: 01/19/18 14:44 Dose: 30 ml Albuterol Sulfate (Ventolin 0.083% Nebulizer Soln -) 1 amp NEB Q4H PRN PRN Reason: SHORT OF BREATH/WHEEZING Albuterol/Ipratropium (Duoneb -) 1 amp NEB RQID [facility] Last Admin: 01/21/18 16:15 Dose: 1 amp Carvedilol (Coreg -) 6.25 mg PO BID [facility] Last Admin: 01/21/18 09:16 Dose: 6.25 mg Docusate Sodium (Colace -) 100 mg PO DAILY [facility] Last Admin: 01/21/18 09:16 Dose: 100 mg Duloxetine HCl (Cymbalta -) 60 mg PO DAILY [facility] Last Admin: 01/21/18 09:16 Dose: 60 mg Folic Acid (Folic Acid -) 1 mg PO DAILY [facility] Last Admin: 01/21/18 09:17 Dose: 1 mg Furosemide (Lasix Injection -) 40 mg IVPUSH DAILY [facility] Last Admin: 01/21/18 09:17 Dose: 40 mg Piperacillin Sod/Tazobactam (Sod 3.375 gm/ Dextrose) 50 mls @ 100 mls/hr IVPB Q8H-IV MANAN PRN Reason: Protocol Last Admin: 01/21/18 17:34 Dose: 100 mls/hr Insulin Aspart (Novolog Vial Sliding Scale -) 1 vial SQ ACHS MANAN PRN Reason: Protocol Last Admin: 01/21/18 17:33 Dose: 10 units Levothyroxine Sodium 125 mcg/ (Levothyroxine Sodium 50 mcg) 175 mcg PO DAILY@ 0700 [facility] Last Admin: 01/21/18 06:27 Dose: 175 mcg Methylnaltrexone [place] (Relistor -) 12 mg SQ DAILY [facility] Last Admin: 01/21/18 14:07 Dose: 12 mg Metoclopramide HCl (Reglan -) 5 mg PO TIDAC [facility] Last Admin: 01/21/18 17:38 Dose: 5 mg Montelukast Sodium (Singulair -) 10 mg PO HS [facility] Last Admin: 01/20/18 21:16 Dose: 10 mg Morphine Sulfate (Morphine Sulfate) 1 mg IVPUSH Q4H PRN PRN Reason: PAIN LEVEL 7 - 10 Pancrelipase (Creon Dr 36,000 Units Capsule) 1 cap PO TIDCM [facility] Last Admin: 01/21/18 17:38 Dose: 1 cap Pantoprazole Sodium (Protonix -) 40 mg PO BID [facility] Last Admin: 01/21/18 09:17 Dose: 40 mg Polyethylene Glycol (Miralax (For Daily Use) -) 17 gm PO BID [facility] Last Admin: 01/21/18 09:17 Dose: 17 gm Rifaximin (Xifaxan -) 550 mg PO TID [facility] Stop: 02/02/18 14:01 Last Admin: 01/21/18 14:08 Dose: 550 mg Sodium Chloride ([place] Nasal [place] -) 2 spray NS Q8H PRN PRN Reason: NASAL CONGESTION Tramadol HCl (Ultram -) 50 mg PO Q8H PRN PRN Reason: PAIN LEVEL 4 - 6 Last Admin: 01/20/18 06:02 Dose: 50 mg 83 year old gentleman with PMhx of CHF, AFib on coumadin, CAD, Hypertension, HLD , IDDM who presented with confusion and weakness and found to have intra- abdominal fluid collection with suspsion of abcess with THERON. #THERON in setting of suspected sepsis/intra-abdominal collection #CHF with fluid overload #Intraadbominal collection #Hyperkalemia #Hyponatremia Renal function w/o improvement thus far this admission pt still with signs of volume overload, will re-dose Lasix 40mg IV this evening keep MAP >65 d/c K supplaments Trend renal function and electrolytes daily no indication for 3% saline will follow Keshav Werner DO
[2018-01-21] MEDS ORDERED: FUROSEMIDE 40 MG/4 ML INJECTABLE VIAL IVPUSH ONE (19:40)
--- NOTE | 2018-01-21 22:39 | CONSULT ---
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 No: Alzheimer's Cardio/Vascular: Yes: AFIB, Aneurysm (mild ascending aortic aneurysm (4.2 cm) per 01/[address]), CAD (stents x2 in 2010; thrombectomy & PCI of proximal and mid LAD with Promus Premier stents and PTCA of D1 on 12/18/15 at [facility] for acute/subacute anteroseptal [place]), CHF, HTN, Hyperlipdemia, Other (ischemic cardiomyopathy (LVEF 34% per 02/16/16 nuclear study)) Gastrointestinal: Yes: Constipation, Diverticulosis Musculoskeletal: Yes: Other (rib fx's right) Endocrine: Yes: Diabetes Mellitus, Hypothyroidism - Past Surgical History Past Surgical History: Yes: Arthrosocopy (Right knee arthroscopy w/ partial medial and lateral meniscectomy 09/01/15), Colectomy - Alcohol/Substance Use Hx Alcohol Use: No History of Substance Use: reports: None - Smoking History Smoking history: Former smoker Have you smoked in the past 12 months: No Aproximately how many cigarettes per day: 0 If you are a former smoker, when did you quit?: 40 years ago - Social History Usual Living Arrangement: Retirement (since last d/c) 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 History of Recent Travel: No Home Medications - Allergies Allergies/Adverse Reactions: Allergies Allergy/AdvReac Type Severity Reaction Status Date / Time No Known Drug Allergies Allergy Verified 01/17/18 12:06 - Home Medications Home Medications: Ambulatory Orders Duloxetine HCl [Cymbalta -] 60 mg PO DAILY 09/25/17 Folic Acid 1 mg PO DAILY 09/25/17 Levothyroxine [Synthroid -] 175 mcg PO DAILY 09/25/17 Spironolactone 25 mg PO DAILY 09/25/17 Albuterol 2.5/Ipratropium 0.5 [Duoneb -] 1 amp NEB RQID amp 12/14/17 Atorvastatin Ca [Lipitor] 80 mg PO HS tablet 12/14/17 Montelukast Na [Singulair -] 10 mg PO HS tablet 12/14/17 Tamsulosin HCl [Flomax -] 0.4 mg PO DAILY@0830 cap.er.24h 12/14/17 Alprazolam 0.25 mg PO TID 01/04/18 Docusate Sodium 100 mg PO DAILY 01/04/18 Furosemide [Lasix -] 40 mg PO BID 01/04/18 Gabapentin 100 mg PO BID 01/04/18 Potassium Chloride [K-Dur -] 20 meq PO DAILY 01/04/18 Warfarin Sodium [Coumadin] 4 mg PO DAILY 01/04/18 Carvedilol [Coreg -] 6.25 mg PO BID #60 tablet 01/15/18 Loratadine [Claritin -] 10 mg PO DAILY tablet 01/15/18 Polyethylene Glycol 3350 [Miralax 119 gm Btl -] 17 gm PO BID bottle 01/15/18 Sodium Chloride Nasal [place] [[place] Nasal [place] -] 2 spray NS TID PRN spray 01/15/18 levoFLOXacin [Levaquin -] 500 mg PO DAILY #5 tablet 01/15/18 Review of Systems - Review of Systems Constitutional: reports: Lethargy HENT: reports: Difficult Swallowing Neck: reports: Decreased ROM Cardiovascular: reports: Palpitations, Shortness of Breath Respiratory: reports: Exercise Intolerance, SOB on Exertion Gastrointestinal: reports: Bloating, Constipation, Nausea Genitourinary: reports: Frequency Breasts: reports: No Symptoms Reported Musculoskeletal: reports: Joint Swelling, Muscle Pain, Muscle Cramps, Muscle Weakness Endocrine: reports: Unexplained Weight Gain Physical Exam Vital Signs: Vital Signs Temperature 98.1 F 01/21/18 17:25 Pulse Rate 73 01/21/18 17:25 Respiratory Rate 18 01/21/18 17:25 Blood Pressure 116/71 01/21/18 17:25 O2 Sat by Pulse Oximetry (%) 95 01/21/18 10:20 Constitutional: Yes: Anxious Eyes: Yes: EOM Intact HENT: Yes: Normocephalic Neck: Yes: Trachea Midline Cardiovascular: Yes: Tachycardia, S3 Respiratory: Yes: Rales, SOB, Tachypnea Gastrointestinal: Yes: Abdomen, Obese, Ascites, Distention ...Rectal Exam: Yes: Deferred Renal/: Yes: Bean Present Musculoskeletal: Yes: Muscle Weakness Extremities: Yes: Delayed Capillary Refill Edema: LLE: 1+, RLE: 1+ Neurological: Yes: Alert, Oriented, Unsteady Gait Labs: CBC, BMP 01/21/18 06:26 01/21/18 16:20 Problem List - Problems (1) Controlled diabetes mellitus with diabetic peripheral angiopathy without gangrene, with long-term current use of insulin Code(s): E11.51 - TYPE 2 DIABETES W DIABETIC PERIPHERAL ANGIOPATH W/O GANGRENE; Z79.4 - 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 (2) Abdominal fluid collection Code(s): R18.8 - OTHER ASCITES (3) Paroxysmal atrial fibrillation Code(s): I48.0 - PAROXYSMAL ATRIAL FIBRILLATION (4) Pelvic fluid collection Code(s): R18.8 - OTHER ASCITES (5) Urinary retention Code(s): R33.9 - RETENTION OF URINE, UNSPECIFIED (6) THERON (acute kidney injury) Code(s): N17.9 - ACUTE KIDNEY FAILURE, UNSPECIFIED Assessment/Plan Current Active Problems Abdominal fluid collection (Acute) Aspiration into respiratory tract (Acute) Change in mental status (Acute) Fever (Acute) Paroxysmal atrial fibrillation (Acute) Pelvic fluid collection (Acute) Urinary retention (Acute) hypothyroidism iddm hyperglycemia ckd Abnormal Lab Results 01/21/18 01/21/18 01/21/18 06:26 06:26 06:26 RBC 3.46 L Hgb 9.9 L Hct 29.4 L RDW 17.8 H Neutrophils % 87.4 H Lymphocytes % 3.7 L D PT with INR 65.20 H INR 5.77 H* Sodium 129 L Potassium 5.8 H Chloride 95 L Anion Gap BUN 56 H D Creatinine 1.7 H Random Glucose 388 H* D Calcium AST 138 H D ALT 325 H Alkaline Phosphatase 391 H Albumin 2.7 L U Random Total Protein 01/21/18 01/21/18 16:20 21:00 RBC Hgb Hct RDW Neutrophils % Lymphocytes % PT with INR INR Sodium 129 L Potassium 5.4 H Chloride 97 L Anion Gap 7 L BUN 58 H Creatinine 1.9 H Random Glucose 356 H* Calcium 8.3 L AST ALT Alkaline Phosphatase Albumin U Random Total Protein 32 H Laboratory Tests 01/21/18 01/21/18 01/21/18 05:39 05:41 12:13 Sodium Potassium Chloride Carbon Dioxide Anion Gap BUN Creatinine POC Glucometer 398 387 386 Calcium 01/21/18 01/21/18 16:20 16:31 Sodium 129 L Potassium 5.4 H Chloride 97 L Carbon Dioxide 25 Anion Gap 7 L BUN 58 H Creatinine 1.9 H POC Glucometer 384 Calcium 8.3 L plan: bgm qid novolog insulin doses levemir 25 units am levemir 15 units hs synthroid 175mcg daily
[2018-01-21] MEDS ORDERED: PT OWN MED DRAWER 7, Y5N ONE (22:42)
[2018-01-21] MEDS: MONTELUKAST NA 10 MG TABLET PO SCH (22:48)
[2018-01-22] MEDS ORDERED: DEXTROSE 5%-WATER - 50 ML IVPB ONE ×3 (01:00→16:24)
[2018-01-22] MEDS ORDERED: PIPERACILLIN/TAZOBACTAM 3.375 GM VIAL IVPB ONE ×3 (01:00→16:24)
[2018-01-22] MEDS: PIPERACILLIN/TAZOB 3.375 GM 3.375 GM in DEXTROSE 5%-WATER - 50 ML IVPB SCH ×3 (01:23→18:08)
[2018-01-22] MEDS ORDERED: LEVOTHYROXINE NA 50 MCG TABLET (FP) ONE (05:43)
[2018-01-22] MEDS ORDERED: LEVOTHYROXINE NA 125 MCG TABLET (FP) ONE (05:44)
[2018-01-22] MEDS: LEVOTHYROXINE 125 MCG, LEVOTHYROXINE 50 MCG PO SCH (06:18)
[2018-01-22] MEDS: METOCLOPRAMIDE HCL 10 MG TABLET (FP) PO SCH ×3 (06:19→17:08)
[2018-01-22] MEDS: RIFAXIMIN 550 MG TABLET (UD) PO SCH ×3 (06:20→22:27)
[2018-01-22] MEDS: INSULIN SLIDING SCALE (NOVOLOG) 1 VIAL SQ SCH ×4 (06:20→22:26)
[2018-01-22] MEDS: INSULIN (LEVEMIR) 100 UNITS/ML UNITS SQ SCH ×2 (06:20→22:25)
[2018-01-22 07:47] LABS: ALBUMIN 2.6 g/dl (3.4-5.0); ALK PHOS 447 U/L (45-117); ANION GAP 8 (8-16); BILIRUBIN,TOTAL 0.8 mg/dL (0.2-1.0); BLOOD UREA NITROGEN 57 mg/dL (7-18); CALCIUM 8.2 mg/dL (8.5-10.1); CHLORIDE 96 mmol/L (98-107); CO2 27 mmol/L (21-32); CREATININE 1.7 mg/dL (0.7-1.3); GLUCOSE,RANDOM 264 mg/dL (74-106); MAGNESIUM 2.1 mg/dL (1.8-2.4); PHOSPHOROUS 3.7 mg/dL (2.5-4.9); POTASSIUM 4.4 mmol/L (3.5-5.1); SGOT/AST 150 U/L (15-37); SGPT/ALT 327 U/L (12-78); SODIUM 131 mmol/L (136-145); TOT PROT 6.8 g/dl (6.4-8.2)
[2018-01-22 07:51] LABS: BASO % 0.4 % (0-2.0); EOS % 0.5 % (0-4.5); HEMATOCRIT 28.8 % (35.4-49); HEMOGLOBIN 9.7 GM/dL (11.7-16.9); MCH 28.6 pg (25.7-33.7); MCHC 33.7 g/dl (32.0-35.9); MEAN CELL VOLUME 84.8 fl (80-96); MEAN PLT VOLUME 9.4 fl (7.5-11.1); MONO % 12.2 % (3.8-10.2); NEUT % 79.9 % (42.8-82.8); PLATELET COUNT 197 K/MM3 (134-434); RBC 3.39 M/mm3 (4.00-5.60); RDW 17.8 % (11.9-15.9); WHITE BLOOD COUNT 6.6 K/mm3 (4.0-10.0)
[2018-01-22] MEDS: ALBUTEROL SO4 2.5/IPRATROPIUM 0.5 INH SOL 3 ML VIAL.NEB. NEB SCH ×4 (08:02→16:48)
[2018-01-22 08:13] LABS: INR 4.07 (0.82-1.09)
[2018-01-22] MEDS: LIPASE/PROTEASE/AMYLASE 36,000 UNIT CAPSULE PO SCH ×3 (08:50→17:08)
[2018-01-22] MEDS: FUROSEMIDE 40 MG/4 ML INJECTABLE VIAL IVPUSH SCH ×2 (09:48→18:09)
[2018-01-22] MEDS: FOLIC ACID 1 MG TABLET (FP) PO SCH (09:48)
[2018-01-22] MEDS: PANTOPRAZOLE 40 MG TABLET (FP) PO SCH ×2 (09:49→22:27)
[2018-01-22] MEDS: DULoxetine HCL 30 MG CAPSULE.DR (FP) PO SCH (09:49)
[2018-01-22] MEDS: DOCUSATE SODIUM 100 MG CAPSULE (FP) PO SCH (09:49)
[2018-01-22] MEDS: CARVEDILOL 6.25 MG TABLET (FP) PO SCH (09:51)
[2018-01-22] MEDS: POLYETHYLENE GLYCOL 3350 119 GM BTL PO SCH ×2 (09:52→22:41)
--- NOTE | 2018-01-22 11:16 | PN ---
Progress Note, Physician History of Present Illness: pulmonary alert,mildly dyspneic,less abd discomfort - Current Medication List Current Medications: Active Medications Al Hydroxide/Mg Hydroxide (Mylanta Oral Suspension -) 30 ml PO Q6H PRN PRN Reason: DYSPEPSIA Last Admin: 01/19/18 14:44 Dose: 30 ml Albuterol Sulfate (Ventolin 0.083% Nebulizer Soln -) 1 amp NEB Q4H PRN PRN Reason: SHORT OF BREATH/WHEEZING Albuterol/Ipratropium (Duoneb -) 1 amp NEB RQID [facility] Last Admin: 01/22/18 08:02 Dose: 1 amp Carvedilol (Coreg -) 6.25 mg PO BID [facility] Last Admin: 01/22/18 09:51 Dose: 6.25 mg Docusate Sodium (Colace -) 100 mg PO DAILY [facility] Last Admin: 01/22/18 09:49 Dose: 100 mg Duloxetine HCl (Cymbalta -) 60 mg PO DAILY [facility] Last Admin: 01/22/18 09:49 Dose: 60 mg Folic Acid (Folic Acid -) 1 mg PO DAILY [facility] Last Admin: 01/22/18 09:48 Dose: 1 mg Furosemide (Lasix Injection -) 40 mg IVPUSH BID@0600,1400 [facility] Piperacillin Sod/Tazobactam (Sod 3.375 gm/ Dextrose) 50 mls @ 100 mls/hr IVPB Q8H-IV MANAN PRN Reason: Protocol Last Admin: 01/22/18 09:47 Dose: 100 mls/hr Insulin Aspart (Novolog Vial Sliding Scale -) 1 vial SQ ACHS [facility] PRN Reason: Protocol Last Admin: 01/22/18 06:20 Dose: 7 units Insulin Detemir (Levemir Vial) 25 units SQ AM [facility] Last Admin: 01/22/18 06:20 Dose: 25 units Insulin Detemir (Levemir Vial) 15 units SQ HS [facility] Levothyroxine Sodium 125 mcg/ (Levothyroxine Sodium 50 mcg) 175 mcg PO DAILY@ 0700 [facility] Last Admin: 01/22/18 06:18 Dose: 175 mcg Methylnaltrexone [place] (Relistor -) 12 mg SQ DAILY [facility] Last Admin: 01/21/18 14:07 Dose: 12 mg Metoclopramide HCl (Reglan -) 5 mg PO TIDAC [facility] Last Admin: 01/22/18 06:19 Dose: 5 mg Montelukast Sodium (Singulair -) 10 mg PO HS [facility] Last Admin: 01/21/18 22:48 Dose: 10 mg Morphine Sulfate (Morphine Sulfate) 1 mg IVPUSH Q4H PRN PRN Reason: PAIN LEVEL 7 - 10 Pancrelipase (Creon Dr 36,000 Units Capsule) 1 cap PO TIDCM [facility] Last Admin: 01/22/18 08:50 Dose: 1 cap Pantoprazole Sodium (Protonix -) 40 mg PO BID [facility] Last Admin: 01/22/18 09:49 Dose: 40 mg Polyethylene Glycol (Miralax (For Daily Use) -) 17 gm PO BID [facility] Last Admin: 01/22/18 09:52 Dose: 17 gm Rifaximin (Xifaxan -) 550 mg PO TID [facility] Stop: 02/02/18 14:01 Last Admin: 01/22/18 06:20 Dose: 550 mg Sodium Chloride ([place] Nasal [place] -) 2 spray NS Q8H PRN PRN Reason: NASAL CONGESTION Tramadol HCl (Ultram -) 50 mg PO Q8H PRN PRN Reason: PAIN LEVEL 4 - 6 Last Admin: 01/20/18 06:02 Dose: 50 mg - Objective Vital Signs: Vital Signs Temperature 97.1 F L 01/22/18 09:00 Pulse Rate 67 01/22/18 09:00 Respiratory Rate 20 01/22/18 09:00 Blood Pressure 105/69 01/22/18 09:00 O2 Sat by Pulse Oximetry (%) 99 01/22/18 09:00 Constitutional: Yes: Well Nourished, Calm, Obese Eyes: Yes: WNL HENT: Yes: WNL Neck: Yes: WNL Cardiovascular: Yes: Pulse Irregular, S1 Respiratory: Yes: Rhonchi (scattered [place] rhonchi) Gastrointestinal: Yes: Normal Bowel Sounds, Soft Extremities: Yes: WNL Edema: Yes Labs: CBC, BMP 01/22/18 06:00 01/22/18 06:00 INR, PTT INR 4.07 (0.82-1.09) H* 01/22/18 06:00 Assessment/Plan Problem List - Problems (1) Acute on chronic systolic (congestive) heart failure Code(s): I50.23 - ACUTE ON CHRONIC SYSTOLIC (CONGESTIVE) HEART FAILURE (2) Abdominal fluid collection Code(s): R18.8 - OTHER ASCITES (3) Change in mental status Code(s): R41.82 - ALTERED MENTAL STATUS, UNSPECIFIED Qualifiers: Altered mental status type: unspecified Qualified Code(s): R41.82 - Altered mental status, unspecified (4) CAD (coronary artery disease) Code(s): I25.10 - ATHSCL HEART DISEASE OF [place] CORONARY ARTERY W/O ANG PCTRS Qualifiers: Coronary Disease-Associated Artery/Lesion type: unspecified vessel or lesion type [place] vs. transplanted heart: [place] heart Associated angina: angina presence unspecified Qualified Code(s): I25.10 - Atherosclerotic heart disease of [place] coronary artery without angina pectoris (5) Diabetes Code(s): E11.9 - TYPE 2 DIABETES MELLITUS WITHOUT COMPLICATIONS Qualifiers: Diabetes mellitus type: type 2 Diabetes mellitus complication detail: with other neurological complication (6) Hyponatremia Code(s): E87.1 - HYPO-OSMOLALITY AND HYPONATREMIA (7) Atrial fibrillation Code(s): I48.91 - UNSPECIFIED ATRIAL FIBRILLATION Qualifiers: Atrial fibrillation type: paroxysmal Qualified Code(s): I48.0 - Paroxysmal atrial fibrillation Assessment/Plan Intra-abdominal Fluid Collection r/o Sepsis Altered Mental Status improved Hyponatremia Acute on Chronic Systolic Heart Failure Atrial Fibrillation CAD HTN DM Hypothyroidism h/o Diverticulitis - antibiotics per ID - lasix - monitor urine output, creatinine - monitor lytes - inhaled bronchodilators standing and PRN - O2 to keep SpO2 >90% - aspiration precautions - rate controlled - f/u chest x-rays DR SPRINGER
[2018-01-22] MEDS: Methylnaltrexone Bromide 12 MG/0.6 ML KIT SQ SCH (11:24)
[2018-01-22] MEDS ORDERED: PT OWN MED DRAWER 7, Y5N ONE (11:30)
[2018-01-22] MEDS: traMADol HCL 50 MG TABLET PO PRN (11:32)
--- NOTE | 2018-01-22 11:35 | PN ---
Progress Note, AUTO JOB ESTIMATOR - Note Progress Note: MBS reviewed with staff. Selected Entries 01/22/18 01/22/18 01/22/18 01:00 05:00 09:00 Breakfast Temperature 98.3 F 97.7 F 97.1 F L 01/22/18 10:30 Breakfast 75% Temperature Laboratory Tests 01/22/18 06:00 WBC 6.6 D Tolerating chopped diet/thin liquids. Rec reviewed
[2018-01-22] MEDS: ALBUTEROL SO4 0.083% IH SOL 2.5 MG/3 ML VIAL.NEB. NEB PRN (12:59)
--- NOTE | 2018-01-22 14:03 | PN ---
Progress Note, Physician Chief Complaint: ASLEEP RESTRAINT FOR FALL PRECAUTIONS - Current Medication List Current Medications: Active Medications Al Hydroxide/Mg Hydroxide (Mylanta Oral Suspension -) 30 ml PO Q6H PRN PRN Reason: DYSPEPSIA Last Admin: 01/19/18 14:44 Dose: 30 ml Albuterol Sulfate (Ventolin 0.083% Nebulizer Soln -) 1 amp NEB Q4H PRN PRN Reason: SHORT OF BREATH/WHEEZING Last Admin: 01/22/18 12:59 Dose: 1 amp Albuterol/Ipratropium (Duoneb -) 1 amp NEB RQID [facility] Last Admin: 01/22/18 13:22 Dose: Not Given Carvedilol (Coreg -) 6.25 mg PO BID [facility] Last Admin: 01/22/18 09:51 Dose: 6.25 mg Docusate Sodium (Colace -) 100 mg PO DAILY [facility] Last Admin: 01/22/18 09:49 Dose: 100 mg Duloxetine HCl (Cymbalta -) 60 mg PO DAILY [facility] Last Admin: 01/22/18 09:49 Dose: 60 mg Folic Acid (Folic Acid -) 1 mg PO DAILY [facility] Last Admin: 01/22/18 09:48 Dose: 1 mg Furosemide (Lasix Injection -) 40 mg IVPUSH BID@0600,1400 [facility] Piperacillin Sod/Tazobactam (Sod 3.375 gm/ Dextrose) 50 mls @ 100 mls/hr IVPB Q8H-IV MANAN PRN Reason: Protocol Last Admin: 01/22/18 09:47 Dose: 100 mls/hr Insulin Aspart (Novolog Vial Sliding Scale -) 1 vial SQ ACHS [facility] PRN Reason: Protocol Last Admin: 01/22/18 11:31 Dose: 5 units Insulin Detemir (Levemir Vial) 25 units SQ AM [facility] Last Admin: 01/22/18 06:20 Dose: 25 units Insulin Detemir (Levemir Vial) 15 units SQ HS [facility] Levothyroxine Sodium 125 mcg/ (Levothyroxine Sodium 50 mcg) 175 mcg PO DAILY@ 0700 [facility] Last Admin: 01/22/18 06:18 Dose: 175 mcg Methylnaltrexone [place] (Relistor -) 12 mg SQ DAILY [facility] Last Admin: 01/22/18 11:24 Dose: 12 mg Metoclopramide HCl (Reglan -) 5 mg PO TIDAC [facility] Last Admin: 01/22/18 11:33 Dose: 5 mg Montelukast Sodium (Singulair -) 10 mg PO HS [facility] Last Admin: 01/21/18 22:48 Dose: 10 mg Morphine Sulfate (Morphine Sulfate) 1 mg IVPUSH Q4H PRN PRN Reason: PAIN LEVEL 7 - 10 Pancrelipase (Creon Dr 36,000 Units Capsule) 1 cap PO TIDCM [facility] Last Admin: 01/22/18 11:34 Dose: 1 cap Pantoprazole Sodium (Protonix -) 40 mg PO BID [facility] Last Admin: 01/22/18 09:49 Dose: 40 mg Polyethylene Glycol (Miralax (For Daily Use) -) 17 gm PO BID [facility] Last Admin: 01/22/18 09:52 Dose: 17 gm Rifaximin (Xifaxan -) 550 mg PO TID [facility] Stop: 02/02/18 14:01 Last Admin: 01/22/18 06:20 Dose: 550 mg Sodium Chloride ([place] Nasal [place] -) 2 spray NS Q8H PRN PRN Reason: NASAL CONGESTION Tramadol HCl (Ultram -) 50 mg PO Q8H PRN PRN Reason: PAIN LEVEL 4 - 6 Last Admin: 01/22/18 11:32 Dose: 50 mg - Objective Vital Signs: Vital Signs Temperature 97.1 F L 01/22/18 09:00 Pulse Rate 67 01/22/18 09:00 Respiratory Rate 20 01/22/18 09:00 Blood Pressure 105/69 01/22/18 09:00 O2 Sat by Pulse Oximetry (%) 99 01/22/18 09:00 Constitutional: Yes: No Distress Eyes: Yes: WNL HENT: Yes: WNL Neck: Yes: WNL Cardiovascular: Yes: Pulse Irregular Respiratory: Yes: WNL Gastrointestinal: Yes: WNL Genitourinary: Yes: Incontinence Musculoskeletal: Yes: Muscle Weakness Extremities: Yes: Other Edema: Yes Peripheral Pulses WNL: Yes Integumentary: Yes: WNL Wound/Incision: Yes: Clean/Dry Neurological: Yes: Confusion ...Motor Strength: WNL Psychiatric: Yes: WNL Labs: CBC, BMP 01/22/18 06:00 01/22/18 06:00 INR, PTT INR 4.07 (0.82-1.09) H* 01/22/18 06:00 Problem List - Problems (1) Abdominal fluid collection Code(s): R18.8 - OTHER ASCITES (2) Aspiration into respiratory tract Code(s): T17.908A - UNSP FB IN RESP TRACT, PART UNSP CAUSING OTH INJURY, INIT (3) Change in mental status Code(s): R41.82 - ALTERED MENTAL STATUS, UNSPECIFIED Qualifiers: Altered mental status type: unspecified Qualified Code(s): R41.82 - Altered mental status, unspecified (4) Fever Code(s): R50.9 - FEVER, UNSPECIFIED Qualifiers: Fever type: unspecified Qualified Code(s): R50.9 - Fever, unspecified (5) Paroxysmal atrial fibrillation Code(s): I48.0 - PAROXYSMAL ATRIAL FIBRILLATION (6) Pelvic fluid collection Code(s): R18.8 - OTHER ASCITES (7) Urinary retention Code(s): R33.9 - RETENTION OF URINE, UNSPECIFIED (8) Abdominal pain Code(s): R10.9 - UNSPECIFIED ABDOMINAL PAIN Qualifiers: Abdominal location: right upper quadrant Qualified Code(s): R10.11 - Right upper quadrant pain (9) Type 2 diabetes mellitus with diabetic chronic kidney disease Code(s): E11.22 - TYPE 2 DIABETES MELLITUS W DIABETIC CHRONIC KIDNEY DISEASE (10) Type 2 diabetes mellitus with other diabetic kidney complication Code(s): E11.29 - TYPE 2 DIABETES MELLITUS W OTH DIABETIC KIDNEY COMPLICATION Assessment/Plan INR ELEVATED 4.2 CHECK LABS IN AM ABX PER ID RESTRAINTS FOR SAFETY WILL NEED PLACEMENT SNF ABD COLLECTION NOT A CANDIDATE FOR SURGERY AT THIS TIME GI/RENAL EVAL
--- NOTE | 2018-01-22 14:49 | PN ---
Progress Note (short form) - Note Progress Note: Renal follow up for THERON on CKD and Hyponatremia Pt seen and examined at the bedside awake and alert sob is improved, abd pain is improved making urine denies any fever, chills has back pain Vital Signs Temperature 97.1 F L 01/22/18 09:00 Pulse Rate 67 01/22/18 09:00 Respiratory Rate 20 01/22/18 09:00 Blood Pressure 105/69 01/22/18 09:00 O2 Sat by Pulse Oximetry (%) 99 01/22/18 09:00 Intake & Output 01/19/18 01/20/18 01/21/18 01/22/18 23:59 23:59 23:59 23:59 Intake Total 1200 960 0 350 Output Total 950 1650 1350 1000 Balance 250 -690 -1350 -650 Weight 100.335 kg 95.028 kg NAD awake and alert MMM no JVD irregular dec BS soft NT/ND Trace LE edema CBC, BMP 01/22/18 06:00 01/22/18 06:00 Current Medications Al Hydroxide/Mg Hydroxide ([place] Oral Suspension -) 30 ml PO Q6H PRN PRN Reason: DYSPEPSIA Last Admin: 01/19/18 14:44 Dose: 30 ml Albuterol Sulfate (Ventolin 0.083% Nebulizer Soln -) 1 amp NEB Q4H PRN PRN Reason: SHORT OF BREATH/WHEEZING Last Admin: 01/22/18 12:59 Dose: 1 amp Albuterol/Ipratropium (Duoneb -) 1 amp NEB RQID [facility] Last Admin: 01/22/18 13:22 Dose: Not Given Carvedilol (Coreg -) 6.25 mg PO BID [facility] Last Admin: 01/22/18 09:51 Dose: 6.25 mg Docusate Sodium (Colace -) 100 mg PO DAILY [facility] Last Admin: 01/22/18 09:49 Dose: 100 mg Duloxetine HCl (Cymbalta -) 60 mg PO DAILY [facility] Last Admin: 01/22/18 09:49 Dose: 60 mg Folic Acid (Folic Acid -) 1 mg PO DAILY [facility] Last Admin: 01/22/18 09:48 Dose: 1 mg Furosemide (Lasix Injection -) 40 mg IVPUSH BID@0600,1400 [facility] Piperacillin Sod/Tazobactam (Sod 3.375 gm/ Dextrose) 50 mls @ 100 mls/hr IVPB Q8H-IV MANAN PRN Reason: Protocol Last Admin: 01/22/18 09:47 Dose: 100 mls/hr Insulin Aspart (Novolog Vial Sliding Scale -) 1 vial SQ ACHS [facility] PRN Reason: Protocol Last Admin: 01/22/18 11:31 Dose: 5 units Insulin Detemir (Levemir Vial) 25 units SQ AM [facility] Last Admin: 01/22/18 06:20 Dose: 25 units Insulin Detemir (Levemir Vial) 15 units SQ HS [facility] Levothyroxine Sodium 125 mcg/ (Levothyroxine Sodium 50 mcg) 175 mcg PO DAILY@ 0700 [facility] Last Admin: 01/22/18 06:18 Dose: 175 mcg Methylnaltrexone [place] (Relistor -) 12 mg SQ DAILY [facility] Last Admin: 01/22/18 11:24 Dose: 12 mg Metoclopramide HCl (Reglan -) 5 mg PO TIDAC [facility] Last Admin: 01/22/18 11:33 Dose: 5 mg Montelukast Sodium (Singulair -) 10 mg PO [facility] Last Admin: 01/21/18 22:48 Dose: 10 mg Morphine Sulfate (Morphine Sulfate) 1 mg IVPUSH Q4H PRN PRN Reason: PAIN LEVEL 7 - 10 Pancrelipase (Creon Dr 36,000 Units Capsule) 1 cap PO TIDCM [facility] Last Admin: 01/22/18 11:34 Dose: 1 cap Pantoprazole Sodium (Protonix -) 40 mg PO BID [facility] Last Admin: 01/22/18 09:49 Dose: 40 mg Polyethylene Glycol (Miralax (For Daily Use) -) 17 gm PO BID [facility] Last Admin: 01/22/18 09:52 Dose: 17 gm Rifaximin (Xifaxan -) 550 mg PO TID [facility] Stop: 02/02/18 14:01 Last Admin: 01/22/18 06:20 Dose: 550 mg Sodium Chloride ([place] Nasal [place] -) 2 spray NS Q8H PRN PRN Reason: NASAL CONGESTION Tramadol HCl (Ultram -) 50 mg PO Q8H PRN PRN Reason: PAIN LEVEL 4 - 6 Last Admin: 01/22/18 11:32 Dose: 50 mg 83 year old gentleman with PMhx of CHF, AFib on coumadin, CAD, Hypertension, HLD , IDDM who presented with confusion and weakness and found to have intra- abdominal fluid collection with suspsion of abcess with THERON. #THERON in setting of suspected sepsis/intra-abdominal collection #CHF with fluid overload #Intraadbominal collection #Hyperkalemia #Hyponatremia Renal function improving with BID IV Lasix K is improved off supplements trend serum na on diuretics continue Abx as per ID Keshav Werner DO
[2018-01-22] MEDS ORDERED: FUROSEMIDE 40 MG/4 ML INJECTABLE VIAL IVPUSH ONE (19:15)
--- NOTE | 2018-01-22 20:42 | PN ---
Progress Note, Physician Chief Complaint: abdominal pain History of Present Illness: 83 yo male PMH CHF, Afib (on Coumadin 4mg), ND (s/p stents x2 and PPM), HTN, HLD , IDDM, hypothyroidism, and diverticulitis (s/p partial colectomy) who presents to the emergency department after discharge on 01/15, for evaluation froy confusion, weakness, and fatigue as per and VNS today. Found to have a new intraabdominal collection. Abdominal pain is improved. - Current Medication List Current Medications: Active Medications Al Hydroxide/Mg Hydroxide (Mylanta Oral Suspension -) 30 ml PO Q6H PRN PRN Reason: DYSPEPSIA Last Admin: 01/19/18 14:44 Dose: 30 ml Albuterol Sulfate (Ventolin 0.083% Nebulizer Soln -) 1 amp NEB Q4H PRN PRN Reason: SHORT OF BREATH/WHEEZING Last Admin: 01/22/18 12:59 Dose: 1 amp Carvedilol (Coreg -) 6.25 mg PO BID [facility] Last Admin: 01/22/18 09:51 Dose: 6.25 mg Docusate Sodium (Colace -) 100 mg PO DAILY [facility] Last Admin: 01/22/18 09:49 Dose: 100 mg Duloxetine HCl (Cymbalta -) 60 mg PO DAILY [facility] Last Admin: 01/22/18 09:49 Dose: 60 mg Folic Acid (Folic Acid -) 1 mg PO DAILY [facility] Last Admin: 01/22/18 09:48 Dose: 1 mg Furosemide (Lasix Injection -) 40 mg IVPUSH BID@0600,1400 [facility] Last Admin: 01/22/18 18:09 Dose: Not Given Piperacillin Sod/Tazobactam (Sod 3.375 gm/ Dextrose) 50 mls @ 100 mls/hr IVPB Q8H-IV MANAN PRN Reason: Protocol Last Admin: 01/22/18 18:08 Dose: 100 mls/hr Insulin Aspart (Novolog Vial Sliding Scale -) 1 vial SQ ACHS [facility] PRN Reason: Protocol Last Admin: 01/22/18 15:08 Dose: 5 units Insulin Detemir (Levemir Vial) 25 units SQ AM [facility] Last Admin: 01/22/18 06:20 Dose: 25 units Insulin Detemir (Levemir Vial) 15 units SQ HS [facility] Levothyroxine Sodium 125 mcg/ (Levothyroxine Sodium 50 mcg) 175 mcg PO DAILY@ 0700 [facility] Last Admin: 01/22/18 06:18 Dose: 175 mcg Methylnaltrexone [place] (Relistor -) 12 mg SQ DAILY [facility] Last Admin: 01/22/18 11:24 Dose: 12 mg Metoclopramide HCl (Reglan -) 5 mg PO TIDAC [facility] Last Admin: 01/22/18 17:08 Dose: 5 mg Montelukast Sodium (Singulair -) 10 mg PO [facility] Last Admin: 01/21/18 22:48 Dose: 10 mg Morphine Sulfate (Morphine Sulfate) 1 mg IVPUSH Q4H PRN PRN Reason: PAIN LEVEL 7 - 10 Pancrelipase (Creon Dr 36,000 Units Capsule) 1 cap PO TIDCM [facility] Last Admin: 01/22/18 17:08 Dose: 1 cap Pantoprazole Sodium (Protonix -) 40 mg PO BID [facility] Last Admin: 01/22/18 09:49 Dose: 40 mg Polyethylene Glycol (Miralax (For Daily Use) -) 17 gm PO BID [facility] Last Admin: 01/22/18 09:52 Dose: 17 gm Rifaximin (Xifaxan -) 550 mg PO TID [facility] Stop: 02/02/18 14:01 Last Admin: 01/22/18 15:07 Dose: 550 mg Sodium Chloride ([place] Nasal [place] -) 2 spray NS Q8H PRN PRN Reason: NASAL CONGESTION Tramadol HCl (Ultram -) 50 mg PO Q8H PRN PRN Reason: PAIN LEVEL 4 - 6 Last Admin: 01/22/18 11:32 Dose: 50 mg - Objective Vital Signs: Vital Signs Temperature 97.6 F 01/22/18 14:26 Pulse Rate 67 01/22/18 14:45 Respiratory Rate 22 01/22/18 14:26 Blood Pressure 92/58 01/22/18 14:45 O2 Sat by Pulse Oximetry (%) 99 01/22/18 09:00 Vital Signs Period Temp Pulse Resp BP Sys/[place] Pulse Ox Last 24 Hr 97.1 F-98.3 F 65-88 20-22 92-124/54-82 97-99 Constitutional: Yes: Well Nourished, No Distress, Calm Eyes: Yes: Conjunctiva Clear, EOM Intact HENT: Yes: Atraumatic, Normocephalic Neck: Yes: Supple, Trachea Midline Cardiovascular: Yes: Regular Rate and Rhythm, S1, S2 Respiratory: Yes: Regular, CTA Bilaterally Gastrointestinal: Yes: Normal Bowel Sounds, Soft, Abdomen, Obese. No: Tenderness Extremities: No: Cool, Cyanosis Labs: CBC, BMP 01/22/18 06:00 01/22/18 06:00 INR, PTT INR 4.07 (0.82-1.09) H* 01/22/18 06:00 Problem List - Problems (1) Abdominal fluid collection Assessment/Plan: 82yo male MMP with abdominal distension and constipation and a new abdominal fluid collection, reviwed with Dr. Renee, there is no IR access but this not likely to be an abscess. Passing flatus and having BM. Cultures negative. No leukocystosis. If all other potential explanations for AMS are eliminated I would consider putting and drain in the collection laparoscopically. adv diet as tolerated IV antibotics per ID Trend labs repeat lactic acid, tumor markers Serial abdominal exams will follow peripherally Code(s): R18.8 - OTHER ASCITES (2) Change in mental status Code(s): R41.82 - ALTERED MENTAL STATUS, UNSPECIFIED Qualifiers: Altered mental status type: unspecified Qualified Code(s): R41.82 - Altered mental status, unspecified (3) Fever Code(s): R50.9 - FEVER, UNSPECIFIED Qualifiers: Fever type: unspecified Qualified Code(s): R50.9 - Fever, unspecified (4) Urinary retention Code(s): R33.9 - RETENTION OF URINE, UNSPECIFIED (5) CAD (coronary artery disease) Code(s): I25.10 - ATHSCL HEART DISEASE OF [place] CORONARY ARTERY W/O ANG PCTRS Qualifiers: Coronary Disease-Associated Artery/Lesion type: unspecified vessel or lesion type [place] vs. transplanted heart: [place] heart Associated angina: angina presence unspecified Qualified Code(s): I25.10 - Atherosclerotic heart disease of [place] coronary artery without angina pectoris (6) CHF (congestive heart failure) Code(s): I50.9 - HEART FAILURE, UNSPECIFIED Qualifiers: Heart failure type: systolic Heart failure chronicity: acute on chronic Qualified Code(s): I50.23 - Acute on chronic systolic (congestive) heart failure (7) COPD (chronic obstructive pulmonary disease) Code(s): J44.9 - CHRONIC OBSTRUCTIVE PULMONARY DISEASE, UNSPECIFIED (8) Constipation Code(s): K59.00 - CONSTIPATION, UNSPECIFIED (9) Diabetes mellitus, insulin dependent (IDDM), uncontrolled Code(s): E10.65 - TYPE 1 DIABETES MELLITUS WITH HYPERGLYCEMIA Qualifiers:
[2018-01-22] MEDS: MONTELUKAST NA 10 MG TABLET PO SCH (22:27)
[2018-01-23] MEDS ORDERED: PIPERACILLIN/TAZOBACTAM 3.375 GM VIAL IVPB ONE ×3 (00:43→17:22)
[2018-01-23] MEDS ORDERED: DEXTROSE 5%-WATER - 50 ML IVPB ONE ×3 (00:44→17:22)
[2018-01-23] MEDS: PIPERACILLIN/TAZOB 3.375 GM 3.375 GM in DEXTROSE 5%-WATER - 50 ML IVPB SCH ×3 (01:00→17:23)
[2018-01-23] MEDS ORDERED: LEVOTHYROXINE NA 125 MCG TABLET (FP) ONE (06:25)
[2018-01-23] MEDS ORDERED: LEVOTHYROXINE NA 50 MCG TABLET (FP) ONE (06:25)
[2018-01-23] MEDS: FUROSEMIDE 40 MG/4 ML INJECTABLE VIAL IVPUSH SCH ×2 (06:34→14:32)
[2018-01-23] MEDS: LEVOTHYROXINE 125 MCG, LEVOTHYROXINE 50 MCG PO SCH (06:34)
[2018-01-23] MEDS: RIFAXIMIN 550 MG TABLET (UD) PO SCH ×3 (06:35→21:41)
[2018-01-23] MEDS: METOCLOPRAMIDE HCL 10 MG TABLET (FP) PO SCH ×3 (06:35→16:50)
[2018-01-23] MEDS: INSULIN (LEVEMIR) 100 UNITS/ML UNITS SQ SCH ×2 (06:35→21:41)
[2018-01-23] MEDS: INSULIN SLIDING SCALE (NOVOLOG) 1 VIAL SQ SCH ×4 (06:36→21:41)
[2018-01-23 06:47] LABS: BASO % 0.5 % (0-2.0); EOS % 2.4 % (0-4.5); HEMATOCRIT 29.2 % (35.4-49); HEMOGLOBIN 9.7 GM/dL (11.7-16.9); LYMPH % 9.8 % (8-40); MCHC 33.1 g/dl (32.0-35.9); MEAN CELL VOLUME 84.7 fl (80-96); MEAN PLT VOLUME 9.3 fl (7.5-11.1); MONO % 12.4 % (3.8-10.2); NEUT % 74.9 % (42.8-82.8); PLATELET COUNT 193 K/MM3 (134-434); RBC 3.44 M/mm3 (4.00-5.60); RDW 17.7 % (11.9-15.9); WHITE BLOOD COUNT 7.9 K/mm3 (4.0-10.0)
[2018-01-23 07:00] LABS: INR 2.44 (0.82-1.09); PROTHROMBIN TIME (PATIENT) 27.6 SEC (9.7-13.0)
[2018-01-23 07:22] LABS: CALCIUM 8.4 mg/dL (8.5-10.1); CHLORIDE 96 mmol/L (98-107); POTASSIUM 3.8 mmol/L (3.5-5.1); SODIUM 136 mmol/L (136-145)
[2018-01-23 07:28] LABS: ALBUMIN 2.6 g/dl (3.4-5.0); ALK PHOS 428 U/L (45-117); ANION GAP 11 (8-16); BILIRUBIN,TOTAL 0.8 mg/dL (0.2-1.0); BLOOD UREA NITROGEN 51 mg/dL (7-18); CO2 29 mmol/L (21-32); CREATININE 1.5 mg/dL (0.7-1.3); GLUCOSE,RANDOM 135 mg/dL (74-106); PHOSPHOROUS 3.5 mg/dL (2.5-4.9); SGOT/AST 90 U/L (15-37); SGPT/ALT 262 U/L (12-78); TOT PROT 6.9 g/dl (6.4-8.2)
[2018-01-23] MEDS: LIPASE/PROTEASE/AMYLASE 36,000 UNIT CAPSULE PO SCH ×3 (08:50→17:20)
--- NOTE | 2018-01-23 10:52 | PN ---
Progress Note, Physician Chief Complaint: AWAKE, DROWSEY NO FEVERS TOLERATING PO DIET VEST FOR SAFETY - Current Medication List Current Medications: Active Medications Al Hydroxide/Mg Hydroxide (Mylanta Oral Suspension -) 30 ml PO Q6H PRN PRN Reason: DYSPEPSIA Last Admin: 01/19/18 14:44 Dose: 30 ml Albuterol Sulfate (Ventolin 0.083% Nebulizer Soln -) 1 amp NEB Q4H PRN PRN Reason: SHORT OF BREATH/WHEEZING Last Admin: 01/22/18 12:59 Dose: 1 amp Carvedilol (Coreg -) 6.25 mg PO BID [facility] Last Admin: 01/22/18 09:51 Dose: 6.25 mg Docusate Sodium (Colace -) 100 mg PO DAILY [facility] Last Admin: 01/22/18 09:49 Dose: 100 mg Duloxetine HCl (Cymbalta -) 60 mg PO DAILY [facility] Last Admin: 01/22/18 09:49 Dose: 60 mg Folic Acid (Folic Acid -) 1 mg PO DAILY [facility] Last Admin: 01/22/18 09:48 Dose: 1 mg Furosemide (Lasix Injection -) 40 mg IVPUSH BID@0600,1400 [facility] Last Admin: 01/23/18 06:34 Dose: 40 mg Piperacillin Sod/Tazobactam (Sod 3.375 gm/ Dextrose) 50 mls @ 100 mls/hr IVPB Q8H-IV MANAN PRN Reason: Protocol Last Admin: 01/23/18 01:00 Dose: 100 mls/hr Insulin Aspart (Novolog Vial Sliding Scale -) 1 vial SQ ACHS MANAN PRN Reason: Protocol Last Admin: 01/23/18 06:36 Dose: Not Given Insulin Detemir (Levemir Vial) 25 units SQ AM [facility] Last Admin: 01/23/18 06:35 Dose: 25 units Insulin Detemir (Levemir Vial) 15 units SQ HS [facility] Last Admin: 01/22/18 22:25 Dose: 15 units Levothyroxine Sodium 125 mcg/ (Levothyroxine Sodium 50 mcg) 175 mcg PO DAILY@ 0700 [facility] Last Admin: 01/23/18 06:34 Dose: 175 mcg Methylnaltrexone [place] (Relistor -) 12 mg SQ DAILY [facility] Last Admin: 01/22/18 11:24 Dose: 12 mg Metoclopramide HCl (Reglan -) 5 mg PO TIDAC [facility] Last Admin: 01/23/18 06:35 Dose: 5 mg Montelukast Sodium (Singulair -) 10 mg PO HS [facility] Last Admin: 01/22/18 22:27 Dose: 10 mg Pancrelipase (Creon Dr 36,000 Units Capsule) 1 cap PO TIDCM [facility] Last Admin: 01/23/18 08:50 Dose: 1 cap Pantoprazole Sodium (Protonix -) 40 mg PO BID [facility] Last Admin: 01/22/18 22:27 Dose: 40 mg Polyethylene Glycol (Miralax (For Daily Use) -) 17 gm PO BID [facility] Last Admin: 01/22/18 22:41 Dose: Not Given Rifaximin (Xifaxan -) 550 mg PO TID [facility] Stop: 02/02/18 14:01 Last Admin: 01/23/18 06:35 Dose: 550 mg Sodium Chloride ([place] Nasal [place] -) 2 spray NS Q8H PRN PRN Reason: NASAL CONGESTION Tramadol HCl (Ultram -) 50 mg PO Q8H PRN PRN Reason: PAIN LEVEL 4 - 6 Last Admin: 01/22/18 11:32 Dose: 50 mg - Objective Vital Signs: Vital Signs Temperature 99.3 F 01/23/18 10:00 Pulse Rate 69 01/23/18 10:00 Respiratory Rate 20 01/23/18 10:00 Blood Pressure 117/75 01/23/18 10:00 O2 Sat by Pulse Oximetry (%) 99 01/23/18 00:01 Constitutional: Yes: Mild Distress Eyes: Yes: WNL HENT: Yes: WNL, Tonsillar Exudate Cardiovascular: Yes: Pulse Irregular Respiratory: Yes: WNL Gastrointestinal: Yes: Normal Bowel Sounds, Distention Genitourinary: Yes: Incontinence Musculoskeletal: Yes: Muscle Weakness Extremities: Yes: WNL Edema: Yes Edema: LLE: Trace, RLE: Trace Peripheral Pulses WNL: Yes Integumentary: Yes: Venous Stasis Changes Wound/Incision: Yes: Dressing Dry and Intact Neurological: Yes: Confusion, Pre-Existing Deficit ...Motor Strength: LLE, RLE Psychiatric: Yes: Other Labs: CBC, BMP 01/23/18 05:35 01/23/18 05:35 INR, PTT INR 2.44 (0.82-1.09) H D 01/23/18 05:35 Problem List - Problems (1) Abdominal fluid collection Code(s): R18.8 - OTHER ASCITES (2) Aspiration into respiratory tract Code(s): T17.908A - UNSP FB IN RESP TRACT, PART UNSP CAUSING OTH INJURY, INIT (3) Change in mental status Code(s): R41.82 - ALTERED MENTAL STATUS, UNSPECIFIED Qualifiers: Altered mental status type: unspecified Qualified Code(s): R41.82 - Altered mental status, unspecified (4) Fever Code(s): R50.9 - FEVER, UNSPECIFIED Qualifiers: Fever type: unspecified Qualified Code(s): R50.9 - Fever, unspecified (5) Paroxysmal atrial fibrillation Code(s): I48.0 - PAROXYSMAL ATRIAL FIBRILLATION (6) Pelvic fluid collection Code(s): R18.8 - OTHER ASCITES (7) Urinary retention Code(s): R33.9 - RETENTION OF URINE, UNSPECIFIED (8) Abdominal pain Code(s): R10.9 - UNSPECIFIED ABDOMINAL PAIN Qualifiers: Abdominal location: right upper quadrant Qualified Code(s): R10.11 - Right upper quadrant pain (9) Type 2 diabetes mellitus with diabetic chronic kidney disease Code(s): E11.22 - TYPE 2 DIABETES MELLITUS W DIABETIC CHRONIC KIDNEY DISEASE (10) Type 2 diabetes mellitus with other diabetic kidney complication Code(s): E11.29 - TYPE 2 DIABETES MELLITUS W OTH DIABETIC KIDNEY COMPLICATION (11) Toxic metabolic encephalopathy Code(s): G92 - TOXIC ENCEPHALOPATHY Assessment/Plan LFT'S STILL HIGH GI F/U APPRECIATED AVOID HEPATOTOXIC MEDS NEURO CONSULT FOR ENCEPHALOPATHY INR 2.4 TODAY WILL NOT RESTART COUMADIN YET, PATIENT STILL BEING FOLLOWED BY SURGERY. WILL START HEPARIN DRIP INSTEAD TOMORROW THEN DECIDE IF COUMADIN SHOULD BE RESTARTED HIGH RISK FOR FALLS ON COUMADIN, WILL DISCUSS BENEFITS VS RISKS WITH CARDIOLOGY AND FAMILY. VEST FOR FALL SAFETY
[2018-01-23] MEDS: PANTOPRAZOLE 40 MG TABLET (FP) PO SCH (11:03)
[2018-01-23] MEDS: FOLIC ACID 1 MG TABLET (FP) PO SCH (11:03)
[2018-01-23] MEDS: DOCUSATE SODIUM 100 MG CAPSULE (FP) PO SCH (11:03)
[2018-01-23] MEDS: Methylnaltrexone Bromide 12 MG/0.6 ML KIT SQ SCH (11:04)
[2018-01-23] MEDS: POLYETHYLENE GLYCOL 3350 119 GM BTL PO SCH ×2 (11:04→21:42)
[2018-01-23] MEDS: DULoxetine HCL 30 MG CAPSULE.DR (FP) PO SCH (11:04)
[2018-01-23] MEDS: CARVEDILOL 6.25 MG TABLET (FP) PO SCH ×2 (11:04→21:41)
[2018-01-23] MEDS ORDERED: LACTULOSE 20 GM/30 ML UDC (FOR ORAL USE ONLY) PO PRN (11:04)
--- NOTE | 2018-01-23 12:44 | PN ---
Progress Note, Physician History of Present Illness: PULMONARY ALERT,FEELING BETTER,-RESP DISTRESS,ABD PAIN IMPROVED - Current Medication List Current Medications: Active Medications Al Hydroxide/Mg Hydroxide (Mylanta Oral Suspension -) 30 ml PO Q6H PRN PRN Reason: DYSPEPSIA Last Admin: 01/19/18 14:44 Dose: 30 ml Albuterol Sulfate (Ventolin 0.083% Nebulizer Soln -) 1 amp NEB Q4H PRN PRN Reason: SHORT OF BREATH/WHEEZING Last Admin: 01/22/18 12:59 Dose: 1 amp Carvedilol (Coreg -) 6.25 mg PO BID [facility] Last Admin: 01/23/18 11:04 Dose: 6.25 mg Docusate Sodium (Colace -) 100 mg PO DAILY [facility] Last Admin: 01/23/18 11:03 Dose: 100 mg Duloxetine HCl (Cymbalta -) 60 mg PO DAILY [facility] Last Admin: 01/23/18 11:04 Dose: 60 mg Folic Acid (Folic Acid -) 1 mg PO DAILY [facility] Last Admin: 01/23/18 11:03 Dose: 1 mg Furosemide (Lasix Injection -) 40 mg IVPUSH BID@0600,1400 [facility] Last Admin: 01/23/18 06:34 Dose: 40 mg Piperacillin Sod/Tazobactam (Sod 3.375 gm/ Dextrose) 50 mls @ 100 mls/hr IVPB Q8H-IV MANAN PRN Reason: Protocol Last Admin: 01/23/18 11:03 Dose: 100 mls/hr Insulin Aspart (Novolog Vial Sliding Scale -) 1 vial SQ ACHS MANAN PRN Reason: Protocol Last Admin: 01/23/18 11:15 Dose: 2 units Insulin Detemir (Levemir Vial) 25 units SQ AM [facility] Last Admin: 01/23/18 06:35 Dose: 25 units Insulin Detemir (Levemir Vial) 15 units SQ HS [facility] Last Admin: 01/22/18 22:25 Dose: 15 units Lactulose (Ce[place] (Oral Use)) 20 gm PO TID PRN PRN Reason: CONSTIPATION Last Admin: 01/23/18 12:13 Dose: 20 gm Levothyroxine Sodium 125 mcg/ (Levothyroxine Sodium 50 mcg) 175 mcg PO DAILY@ 0700 [facility] Last Admin: 05/02/18 06:34 Dose: 175 mcg Methylnaltrexone [place] (Relistor -) 12 mg SQ DAILY [facility] Last Admin: 01/23/18 11:04 Dose: 12 mg Metoclopramide HCl (Reglan -) 5 mg PO TIDAC [facility] Last Admin: 01/23/18 11:04 Dose: 5 mg Montelukast Sodium (Singulair -) 10 mg PO HS [facility] Last Admin: 01/22/18 22:27 Dose: 10 mg Pancrelipase (Creon Dr 36,000 Units Capsule) 1 cap PO TIDCM [facility] Last Admin: 01/23/18 12:14 Dose: 1 cap Pantoprazole Sodium (Protonix -) 40 mg PO BID [facility] Last Admin: 01/23/18 11:03 Dose: 40 mg Polyethylene Glycol (Miralax (For Daily Use) -) 17 gm PO BID [facility] Last Admin: 01/23/18 11:04 Dose: 17 gm Rifaximin (Xifaxan -) 550 mg PO TID [facility] Stop: 02/02/18 14:01 Last Admin: 01/23/18 06:35 Dose: 550 mg Sodium Chloride ([place] Nasal [place] -) 2 spray NS Q8H PRN PRN Reason: NASAL CONGESTION - Objective Vital Signs: Vital Signs Temperature 99.3 F 01/23/18 10:00 Pulse Rate 69 01/23/18 10:00 Respiratory Rate 20 01/23/18 10:00 Blood Pressure 117/75 01/23/18 10:00 O2 Sat by Pulse Oximetry (%) 99 01/23/18 00:01 Constitutional: Yes: Well Nourished, Calm Eyes: Yes: WNL HENT: Yes: WNL Neck: Yes: WNL Cardiovascular: Yes: Pulse Irregular, S1, S2 Respiratory: Yes: Diminished Gastrointestinal: Yes: Normal Bowel Sounds, Soft Extremities: Yes: WNL Edema: Yes Edema: LLE: Trace, RLE: Trace Labs: CBC, BMP 01/23/18 05:35 01/23/18 05:35 INR, PTT INR 2.44 (0.82-1.09) H D 01/23/18 05:35 Assessment/Plan Problem List - Problems (1) Acute on chronic systolic (congestive) heart failure Code(s): I50.23 - ACUTE ON CHRONIC SYSTOLIC (CONGESTIVE) HEART FAILURE (2) Abdominal fluid collection Code(s): R18.8 - OTHER ASCITES (3) Change in mental status Code(s): R41.82 - ALTERED MENTAL STATUS, UNSPECIFIED Qualifiers: Altered mental status type: unspecified Qualified Code(s): R41.82 - Altered mental status, unspecified (4) CAD (coronary artery disease) Code(s): I25.10 - ATHSCL HEART DISEASE OF [place] CORONARY ARTERY W/O ANG PCTRS Qualifiers: Coronary Disease-Associated Artery/Lesion type: unspecified vessel or lesion type [place] vs. transplanted heart: [place] heart Associated angina: angina presence unspecified Qualified Code(s): I25.10 - Atherosclerotic heart disease of [place] coronary artery without angina pectoris (5) Diabetes Code(s): E11.9 - TYPE 2 DIABETES MELLITUS WITHOUT COMPLICATIONS Qualifiers: Diabetes mellitus type: type 2 Diabetes mellitus complication detail: with other neurological complication (6) Hyponatremia Code(s): E87.1 - HYPO-OSMOLALITY AND HYPONATREMIA improved (7) Atrial fibrillation Code(s): I48.91 - UNSPECIFIED ATRIAL FIBRILLATION Qualifiers: Atrial fibrillation type: paroxysmal Qualified Code(s): I48.0 - Paroxysmal atrial fibrillation Assessment/Plan Intra-abdominal Fluid Collection r/o Sepsis Altered Mental Status improved Hyponatremia Acute on Chronic Systolic Heart Failure Atrial Fibrillation CAD HTN DM Hypothyroidism h/o Diverticulitis Elevated LFTs - antibiotics per ID - lasix - monitor urine output, creatinine - monitor lytes,LFTs - inhaled bronchodilators standing and PRN - O2 to keep SpO2 >90% - aspiration precautions - rate controlled - f/u chest x-rays DR SPRINGER
--- NOTE | 2018-01-23 14:08 | PN ---
Progress Note, TRANSIT CLERK - Note Progress Note: MBS reviewed with staff. Selected Entries 01/22/18 01/22/18 01/22/18 01:00 05:00 09:00 Breakfast Temperature 98.3 F 97.7 F 97.1 F L 01/22/18 10:30 Breakfast 75% Temperature Laboratory Tests 01/22/18 06:00 WBC 6.6 D P with difficulty with larger pieces in chopped diet including coleslaw and monegasque fries. He tolerates minced food well. Rec:Downgrade to dys ground/thin liquids/no straw. HOB fully elevated meal time.
--- NOTE | 2018-01-23 14:14 | CON.GI ---
Consult Consult Specialty:: GI Reason for Consultation:: abnormal liver chemistry, - History of Present Illness History of Present Illness: chart reviewed. Events noted. As per initial intake: 83 yo male PMH CHF, Afib (on Coumadin 4mg), TX (s/p stents x2 and PPM), HTN, HLD, IDDM, hypothyroidism, and diverticulitis (s/p partial colectomy) who presents to the emergency department after discharge on 01/15, for evaluation froy confusion, weakness, and fatigue as per and VNS today. Found to have a new intraabdominal collection. The collection does not appear to be IR drainable. Surgery considering laparoscopic drainage when other acute issues are under control. At the time of this exam, the patient is in safety vest, however is awake, alert and calm. Reports no prior history of liver disease. Denies chronic alcohol abuse. Denies personal, family history of autoimmune, genetic, or viral liver issues. Has not been told in the past he had abnormal liver enzymes. he had 2 CAT scans of the abdomen and pelvis on this admission that showed no significant liver pathology. Liver chemistry exhibits hepatocellular pattern with likely intrahepatic cholestasis. . AST, ALT were normal up until current admission. ALP was mildly elevated going back, at least, 2 years ago however it is markedly elevated on this admission. - History Source History Provided By: Patient, Medical Record - Past Medical History [employer]ITY [employer]IE[employer]UM: Yes: TIA. No: Alzheimer's Cardio/Vascular: Yes: AFIB, Aneurysm (mild ascending aortic aneurysm (4.2 cm) per 01/[address]), CAD (stents x2 in 2010; thrombectomy & PCI of proximal and mid LAD with Promus Premier stents and PTCA of D1 on 12/18/15 at [facility] for acute/subacute anteroseptal [place]), CHF, HTN, Hyperlipdemia, Other (ischemic cardiomyopathy (LVEF 34% per 02/16/16 nuclear study)) Gastrointestinal: Yes: Constipation, Diverticulosis Musculoskeletal: Yes: Other (rib fx's right) Endocrine: Yes: Diabetes Mellitus, Hypothyroidism - Past Surgical History Past Surgical History: Yes: Arthrosocopy (Right knee arthroscopy w/ partial medial and lateral meniscectomy 09/01/15), Colectomy - Alcohol/Substance Use Hx Alcohol Use: No History of Substance Use: reports: None - Smoking History Smoking history: Former smoker Have you smoked in the past 12 months: No Aproximately how many cigarettes per day: 0 If you are a former smoker, when did you quit?: 40 years ago - Social History Usual Living Arrangement: Halfway (since last d/c) 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 History of Recent Travel: No Home Medications - Allergies Allergies/Adverse Reactions: Allergies Allergy/AdvReac Type Severity Reaction Status Date / Time No Known Drug Allergies Allergy Verified 01/17/18 12:06 - Home Medications Home Medications: Ambulatory Orders Duloxetine HCl [Cymbalta -] 60 mg PO DAILY 09/25/17 Folic Acid 1 mg PO DAILY 09/25/17 Levothyroxine [Synthroid -] 175 mcg PO DAILY 09/25/17 Spironolactone 25 mg PO DAILY 09/25/17 Albuterol 2.5/Ipratropium 0.5 [Duoneb -] 1 amp NEB RQID amp 12/14/17 Atorvastatin Ca [Lipitor] 80 mg PO HS tablet 12/14/17 Montelukast Na [Singulair -] 10 mg PO HS tablet 12/14/17 Tamsulosin HCl [Flomax -] 0.4 mg PO DAILY@0830 cap.er.24h 12/14/17 Alprazolam 0.25 mg PO TID 01/04/18 Docusate Sodium 100 mg PO DAILY 01/04/18 Furosemide [Lasix -] 40 mg PO BID 01/04/18 Gabapentin 100 mg PO BID 01/04/18 Potassium Chloride [K-Dur -] 20 meq PO DAILY 01/04/18 Warfarin Sodium [Coumadin] 4 mg PO DAILY 01/04/18 Carvedilol [Coreg -] 6.25 mg PO BID #60 tablet 01/15/18 Loratadine [Claritin -] 10 mg PO DAILY tablet 01/15/18 Polyethylene Glycol 3350 [Miralax 119 gm Btl -] 17 gm PO BID bottle 01/15/18 Sodium Chloride Nasal [place] [[place] Nasal [place] -] 2 spray NS TID PRN spray 01/15/18 levoFLOXacin [Levaquin -] 500 mg PO DAILY #5 tablet 01/15/18 Family Disease History - Family Disease History Family History: Unremarkable (noncontributory) Review of Systems Findings/Remarks: as per H&P and HPI Physical Exam-GI Vital Signs: Vital Signs Temperature 99.3 F 01/23/18 10:00 Pulse Rate 69 01/23/18 10:00 Respiratory Rate 20 01/23/18 10:00 Blood Pressure 117/75 01/23/18 10:00 O2 Sat by Pulse Oximetry (%) 99 01/23/18 09:00 Constitutional: Yes: No Distress, Calm Eyes: Yes: Conjunctiva Clear HENT: Yes: Atraumatic Neck: Yes: Supple Cardiovascular: Yes: Regular Rate and Rhythm Respiratory: Yes: Regular, SOB, Wheezes Gastrointestinal Inspection: Yes: Distention. No: Ascites ...Auscultate: Yes: Normoactive Bowel Sounds ...Palpate: Yes: Soft. No: Splenomegaly, Tenderness, Tenderness, Epigastium, Tenderness, Rebound Neurological: Yes: Alert Labs: CBC, BMP 01/23/18 05:35 01/23/18 05:35 INR, PTT INR 2.44 (0.82-1.09) H D 01/23/18 05:35 Laboratory Last Values WBC 7.9 K/mm3 (4.0-10.0) 01/23/18 05:35 RBC 3.44 M/mm3 (4.00-5.60) L 01/23/18 05:35 Hgb 9.7 GM/dL (11.7-16.9) L 01/23/18 05:35 Hct 29.2 % (35.4-49) L 01/23/18 05:35 MCV 84.7 fl (80-96) 01/23/18 05:35 MCH 28.0 pg (25.7-33.7) 01/23/18 05:35 MCHC 33.1 g/dl (32.0-35.9) 01/23/18 05:35 RDW 17.7 % (11.9-15.9) H 01/23/18 05:35 Plt Count 193 K/MM3 (134-434) 01/23/18 05:35 MPV 9.3 fl (7.5-11.1) 01/23/18 05:35 Neutrophils % 74.9 % (42.8-82.8) 01/23/18 05:35 Lymphocytes % 9.8 % (8-40) D 01/23/18 05:35 Monocytes % 12.4 % (3.8-10.2) H 01/23/18 05:35 Eosinophils % 2.4 % (0-4.5) D 01/23/18 05:35 Basophils % 0.5 % (0-2.0) 01/23/18 05:35 ESR 105 mm/hr (0-20) H 01/18/18 08:28 PT with INR 27.60 SEC (9.7-13.0) H 01/23/18 05:35 INR 2.44 (0.82-1.09) H D 01/23/18 05:35 PTT (Actin FS) 36.2 SECONDS (26.9-34.4) H 01/17/18 13:12 Anticoagulation Therapy No Result Required. 01/20/18 16:10 Puncture Site Left radial 01/20/18 16:10 ABG pH 7.36 (7.35-7.45) 01/20/18 16:10 ABG pCO2 at Pt Temp 41.3 mmHg (35-45) 01/20/18 16:10 ABG pO2 at Pt Temp 119.0 mmHg (68-100) H 01/20/18 16:10 ABG HCO3 22.6 meq/L (22-26) 01/20/18 16:10 ABG O2 Sat (Measured) 98.2 % (90-98.9) 01/20/18 16:10 ABG O2 Content 13.7 % vol (15-22) L 01/20/18 16:10 ABG Base Excess -2.2 meq/l (-2-2) L 01/20/18 16:10 Edu Test Positive 01/20/18 16:10 Carboxyhemoglobin 1.5 gm% (0.5-2.0) 01/17/18 15:35 Methemoglobin 1.0 % (0.4-1.5) 01/17/18 15:35 O2 Delivery Device Nc 01/20/18 16:10 Oxygen Flow Rate 3l 01/20/18 16:10 Vent Mode No Result Required. 01/20/18 16:10 Vent Rate No Result Required. 01/20/18 16:10 Mechanical Rate No Result Required. 01/20/18 16:10 Pressure Support Vent No Result Required. 01/20/18 16:10 Sodium 136 mmol/L (136-145) 01/23/18 05:35 Potassium 3.8 mmol/L (3.5-5.1) 01/23/18 05:35 Chloride 96 mmol/L (98-107) L 01/23/18 05:35 Carbon Dioxide 29 mmol/L (21-32) 01/23/18 05:35 Anion Gap 11 (8-16) 01/23/18 05:35 BUN 51 mg/dL (7-18) H 01/23/18 05:35 Creatinine 1.5 mg/dL (0.7-1.3) H 01/23/18 05:35 Creat Clearance w eGFR 44.81 (>60) 01/23/18 05:35 POC Glucometer 211 UNITS (80-120) 01/23/18 11:09 Random Glucose 135 mg/dL (74-106) H D 01/23/18 05:35 Hemoglobin A1c % 10.5 % (4.8-6.0) H D 01/18/18 08:28 Lactic Acid 1.2 mmol/L (0.0-2.0) 01/19/18 06:17 Calcium 8.4 mg/dL (8.5-10.1) L 01/23/18 05:35 Phosphorus 3.5 mg/dL (2.5-4.9) 01/23/18 05:35 Magnesium 2.0 mg/dL (1.8-2.4) 01/23/18 05:35 Total Bilirubin 0.8 mg/dL (0.2-1.0) 01/23/18 05:35 AST 90 U/L (15-37) H D 01/23/18 05:35 ALT 262 U/L (12-78) H 01/23/18 05:35 Alkaline Phosphatase 428 U/L (45-117) H 01/23/18 05:35 Ammonia 50.06 umol/L (11-32) H 01/23/18 11:28 Creatine Kinase 30 IU/L (39-308) L 01/18/18 08:28 Troponin I 0.04 ng/ml (0.00-0.05) D 01/19/18 06:17 C-Reactive Protein 8.8 MG/DL (0.00-0.3) H 01/20/18 10:25 Total Protein 6.9 g/dl (6.4-8.2) 01/23/18 05:35 Albumin 2.6 g/dl (3.4-5.0) L 01/23/18 05:35 Triglycerides 69 mg/dL (35-160) D 01/18/18 08:28 Cholesterol 61 mg/dL (50-200) D 01/18/18 08:28 Total LDL Cholesterol 31 mg/dL (5-100) D 01/18/18 08:28 HDL Cholesterol 31 mg/dL (40-60) L 01/18/18 08:28 Carcinoembryonic Ag 3.8 ng/mL (0.0-4.7) 01/19/18 06:17 CA 19-9 Antigen 13 U/mL (0-35) 01/19/18 06:17 Prostate Specific Ag 0.60 ng/ml (0.0-4.0) 01/19/18 06:17 TSH 0.50 uIU/ml (0.358-3.74) D 01/18/18 08:28 Urine Color Yellow 01/17/18 12:27 Urine Appearance Clear 01/17/18 12:27 Urine pH 5.0 (5.0-8.0) 01/17/18 12:27 Ur Specific [place] 1.011 (1.001-1.035) 01/17/18 12:27 Urine Protein Negative (NEGATIVE) 01/17/18 12:27 Urine Glucose (UA) 3+ (NEGATIVE) H 01/17/18 12:27 Urine Ketones Negative (NEGATIVE) 01/17/18 12:27 Urine Blood Negative (NEGATIVE) 01/17/18 12:27 Urine Nitrite Negative (NEGATIVE) 01/17/18 12:27 Urine Bilirubin Negative (<2.0 mg/dL) 01/17/18 12:27 Urine Urobilinogen Negative mg/dL (0.2-1.0) 01/17/18 12:27 Ur Leukocyte Esterase Negative (NEGATIVE) 01/17/18 12:27 U Random Total Protein 32 mg/dl (5-11.9) H 01/21/18 21:00 Ur Random Urea Nitrogn 446 mg/dL 01/21/18 21:00 Urine Creatinine 46.0 mg/dL (20-370) 01/21/18 21:00 Salicylates < 1.700 mg/dL 01/17/18 20:47 Opiates Screen Negative ng/ml (EKMVGP=615) 01/17/18 21:40 Methadone Screen Negative ng/ml (MRQGDZ=851) 01/17/18 21:40 Acetaminophen < 2.000 ug/mL 01/17/18 20:47 Barbiturate Screen Negative ng/ml (QZVCZI=709) 01/17/18 21:40 Phencyclidine Screen Negative ng/ml (CUTOFF=25) 01/17/18 21:40 Ur Amphetamines Screen Negative ng/ml (KJCRMQ=213) 01/17/18 21:40 MDMA (Ecstasy) Screen Negative ng/ml (ZKJEEJ=587) 01/17/18 21:40 Benzodiazepines Screen Negative ng/ml (WKDCUD=906) 01/17/18 21:40 Cocaine Screen Negative ng/ml (AIJZSV=396) 01/17/18 21:40 U Marijuana (THC) Screen Negative ng/ml (CUTOFF=50) 01/17/18 21:40 Imaging - Results Cat Scan: Report Reviewed Problem List - Problems (1) Hepatitis Code(s): K75.9 - INFLAMMATORY LIVER DISEASE, UNSPECIFIED (2) Intrahepatic cholestasis Code(s): K76.89 - OTHER SPECIFIED DISEASES OF LIVER Assessment/Plan The liver injury pattern is predominantly hepatocellular. Etiologies such as infection and/or dili are possible. No obvious parenchymal, or ductal lesions on multiple imaging studies. Will obtain viral profile. would minimize , or awoid hepatotoxic medications and eliminate all nonessential medications. Serial liver enzymes. If abnormality is indeed drug-related, it may take up to 6 weeks to normalize. Will follow.
[2018-01-23] MEDS ORDERED: PT OWN MED DRAWER 7, Y5N ONE ×2 (17:18→21:00)
[2018-01-23] MEDS ORDERED: INSULIN (NOVOLOG) ASPART 100 UNITS/ML 10ML VIAL ONE ×2 (17:19→20:59)
--- NOTE | 2018-01-23 17:54 | PN ---
Progress Note (short form) - Note Progress Note: Renal follow up for THERON on CKD and Hyponatremia Pt seen and examined at the bedside awake and alert sob and cough is improved abd pain is also improved making urine Vital Signs Temperature 99.3 F 01/23/18 10:00 Pulse Rate 69 01/23/18 10:00 Respiratory Rate 20 01/23/18 10:00 Blood Pressure 117/75 01/23/18 10:00 O2 Sat by Pulse Oximetry (%) 99 01/23/18 09:00 Intake & Output 01/20/18 01/21/18 01/22/18 01/23/18 23:59 23:59 23:59 23:59 Intake Total 960 0 1070 950 Output Total 1650 1350 2300 1550 Balance -690 -1350 -1230 -600 Weight 100.335 kg 95.028 kg 97.976 kg NAD awake and alert MMM no JVD irregular dec BS soft NT/ND Trace LE edema CBC, BMP 01/23/18 05:35 01/23/18 05:35 Current Medications Al Hydroxide/Mg Hydroxide (Mylanta Oral Suspension -) 30 ml PO Q6H PRN PRN Reason: DYSPEPSIA Last Admin: 01/19/18 14:44 Dose: 30 ml Albuterol Sulfate (Ventolin 0.083% Nebulizer Soln -) 1 amp NEB Q4H PRN PRN Reason: SHORT OF BREATH/WHEEZING Last Admin: 01/22/18 12:59 Dose: 1 amp Carvedilol (Coreg -) 6.25 mg PO BID [facility] Last Admin: 01/23/18 11:04 Dose: 6.25 mg Docusate Sodium (Colace -) 100 mg PO DAILY [facility] Last Admin: 01/23/18 11:03 Dose: 100 mg Duloxetine HCl (Cymbalta -) 60 mg PO DAILY [facility] Last Admin: 01/23/18 11:04 Dose: 60 mg Folic Acid (Folic Acid -) 1 mg PO DAILY [facility] Last Admin: 01/23/18 11:03 Dose: 1 mg Furosemide (Lasix Injection -) 40 mg IVPUSH BID@0600,1400 [facility] Last Admin: 01/23/18 14:32 Dose: 40 mg Piperacillin Sod/Tazobactam (Sod 3.375 gm/ Dextrose) 50 mls @ 100 mls/hr IVPB Q8H-IV MANAN PRN Reason: Protocol Last Admin: 01/23/18 17:23 Dose: 100 mls/hr Insulin Aspart (Novolog Vial Sliding Scale -) 1 vial SQ ACHS MANAN PRN Reason: Protocol Last Admin: 01/23/18 16:50 Dose: 5 units Insulin Detemir (Levemir Vial) 25 units SQ AM [facility] Last Admin: 01/23/18 06:35 Dose: 25 units Insulin Detemir (Levemir Vial) 15 units SQ HS [facility] Last Admin: 01/22/18 22:25 Dose: 15 units Lactulose (Cephulac (Oral Use)) 20 gm PO TID PRN PRN Reason: CONSTIPATION Last Admin: 01/23/18 12:13 Dose: 20 gm Levothyroxine Sodium 125 mcg/ (Levothyroxine Sodium 50 mcg) 175 mcg PO DAILY@ 0700 [facility] Last Admin: 01/23/18 06:34 Dose: 175 mcg Methylnaltrexone [place] (Relistor -) 12 mg SQ DAILY [facility] Last Admin: 01/23/18 11:04 Dose: 12 mg Metoclopramide HCl (Reglan -) 5 mg PO TIDAC [facility] Last Admin: 01/23/18 16:50 Dose: 5 mg Montelukast Sodium (Singulair -) 10 mg PO HS [facility] Last Admin: 01/22/18 22:27 Dose: 10 mg Pancrelipase (Creon Dr 36,000 Units Capsule) 1 cap PO TIDCM [facility] Last Admin: 01/23/18 17:20 Dose: 1 cap Pantoprazole Sodium (Protonix -) 40 mg PO BID [facility] Last Admin: 01/23/18 11:03 Dose: 40 mg Polyethylene Glycol (Miralax (For Daily Use) -) 17 gm PO BID [facility] Last Admin: 01/23/18 11:04 Dose: 17 gm Rifaximin (Xifaxan -) 550 mg PO TID [facility] Stop: 02/02/18 14:01 Last Admin: 01/23/18 14:31 Dose: 550 mg Sodium Chloride ([place] Nasal [place] -) 2 spray NS Q8H PRN PRN Reason: NASAL CONGESTION 83 year old gentleman with PMhx of CHF, AFib on coumadin, CAD, Hypertension, HLD , IDDM who presented with confusion and weakness and found to have intra- abdominal fluid collection with suspsion of abcess with THERON. #THERON in setting of suspected sepsis/intra-abdominal collection #CHF with fluid overload #Intraadbominal collection #Hyperkalemia #Hyponatremia Renal function improved thus far with diuretics continue IV Lasix BID trend renal function daily continue supplamental O2 Surgical and ID follow up Keshav Werner DO
--- NOTE | 2018-01-23 19:08 | PN ---
Progress Note (short form) - Note Progress Note: NEUROLOGY FOLLOW-UP: Events reviewed and discussed with his daughter at bedside. Pt is more lethargic and confused since admission. OPn antibiotics for pleural and retro-colonic fluid collections, possible abscesses. However, Labs also show increasing LFT's, ammonia levels (50 mg%), and increasing coagulopathy- now off coumadin. EXAM: Neck supple. Neg [place] Lethargic but arousable. He remembers my name and [place] but not the month or year. Sl. dysarthric speech. Moves all fours well. Scattered myoclonic jerks. IMP: Progressive Toxic-metabolic encephalopathy- Probably on a Hepatic basis. SUGGEST: W/u of hepatopathy as per GI Follow Ammonia levels. D/C any meds possible. Give thiamine IV. Thank you very much, Fan Menendez MD
[2018-01-23] MEDS: THIAMINE HCL 200 MG/2 ML VIAL IVPB SCH (21:40)
[2018-01-23] MEDS: MONTELUKAST NA 10 MG TABLET PO SCH (21:41)
[2018-01-23] MEDS: ALBUTEROL SO4 0.083% IH SOL 2.5 MG/3 ML VIAL.NEB. NEB PRN (23:39)
[2018-01-24] MEDS ORDERED: PIPERACILLIN/TAZOBACTAM 3.375 GM VIAL IVPB ONE ×3 (00:58→16:40)
[2018-01-24] MEDS ORDERED: DEXTROSE 5%-WATER - 50 ML IVPB ONE ×3 (00:59→16:40)
[2018-01-24] MEDS: PIPERACILLIN/TAZOB 3.375 GM 3.375 GM in DEXTROSE 5%-WATER - 50 ML IVPB SCH ×3 (01:11→17:10)
[2018-01-24] MEDS: THIAMINE HCL 200 MG/2 ML VIAL IVPB SCH ×3 (01:16→17:29)
[2018-01-24] MEDS ORDERED: LEVOTHYROXINE NA 125 MCG TABLET (FP) ONE (06:02)
[2018-01-24] MEDS ORDERED: LEVOTHYROXINE NA 50 MCG TABLET (FP) ONE (06:02)
[2018-01-24] MEDS ORDERED: PT OWN MED DRAWER 7, Y5N ONE ×2 (06:03→10:00)
[2018-01-24] MEDS ORDERED: INSULIN (NOVOLOG) ASPART 100 UNITS/ML 10ML VIAL ONE (06:03)
[2018-01-24 06:39] LABS: BASO % 0.3 % (0-2.0); EOS % 4.4 % (0-4.5); HEMATOCRIT 29.1 % (35.4-49); HEMOGLOBIN 9.6 GM/dL (11.7-16.9); LYMPH % 8.8 % (8-40); MCH 28.2 pg (25.7-33.7); MCHC 33.1 g/dl (32.0-35.9); MEAN CELL VOLUME 85.5 fl (80-96); MEAN PLT VOLUME 9.5 fl (7.5-11.1); MONO % 9.7 % (3.8-10.2); NEUT % 76.8 % (42.8-82.8); PLATELET COUNT 200 K/MM3 (134-434); RBC 3.41 M/mm3 (4.00-5.60); RDW 18.5 % (11.9-15.9); WHITE BLOOD COUNT 7.2 K/mm3 (4.0-10.0)
[2018-01-24] MEDS: LEVOTHYROXINE 125 MCG, LEVOTHYROXINE 50 MCG PO SCH (06:46)
[2018-01-24] MEDS: RIFAXIMIN 550 MG TABLET (UD) PO SCH ×3 (06:46→21:56)
[2018-01-24] MEDS: METOCLOPRAMIDE HCL 10 MG TABLET (FP) PO SCH ×3 (06:46→17:11)
[2018-01-24] MEDS: FUROSEMIDE 40 MG/4 ML INJECTABLE VIAL IVPUSH SCH ×2 (06:46→14:06)
[2018-01-24 06:51] LABS: INR 1.71 (0.82-1.09); PROTHROMBIN TIME (PATIENT) 19.3 SEC (9.7-13.0)
[2018-01-24] MEDS: INSULIN (LEVEMIR) 100 UNITS/ML UNITS SQ SCH ×2 (06:59→21:55)
[2018-01-24] MEDS: INSULIN SLIDING SCALE (NOVOLOG) 1 VIAL SQ SCH ×4 (07:00→21:56)
[2018-01-24 07:09] LABS: ALBUMIN 2.5 g/dl (3.4-5.0); ANION GAP 7 (8-16); BLOOD UREA NITROGEN 42 mg/dL (7-18); CHLORIDE 97 mmol/L (98-107); CO2 31 mmol/L (21-32); GLUCOSE,RANDOM 194 mg/dL (74-106); POTASSIUM 3.5 mmol/L (3.5-5.1); SODIUM 135 mmol/L (136-145)
[2018-01-24 07:13] LABS: ALK PHOS 395 U/L (45-117); BILIRUBIN,TOTAL 0.8 mg/dL (0.2-1.0); CREATININE 1.1 mg/dL (0.7-1.3); PHOSPHOROUS 2.9 mg/dL (2.5-4.9); SGOT/AST 40 U/L (15-37); SGPT/ALT 184 U/L (12-78); TOT PROT 6.5 g/dl (6.4-8.2)
[2018-01-24] MEDS: LIPASE/PROTEASE/AMYLASE 36,000 UNIT CAPSULE PO SCH ×3 (08:00→17:12)
--- NOTE | 2018-01-24 09:15 | PN ---
Progress Note, Physician - Current Medication List Current Medications: Active Medications Al Hydroxide/Mg Hydroxide (Mylanta Oral Suspension -) 30 ml PO Q6H PRN PRN Reason: DYSPEPSIA Last Admin: 01/19/18 14:44 Dose: 30 ml Albuterol Sulfate (Ventolin 0.083% Nebulizer Soln -) 1 amp NEB Q4H PRN PRN Reason: SHORT OF BREATH/WHEEZING Last Admin: 01/23/18 23:39 Dose: 1 amp Carvedilol (Coreg -) 6.25 mg PO BID [facility] Last Admin: 01/23/18 21:41 Dose: Not Given Docusate Sodium (Colace -) 100 mg PO DAILY [facility] Last Admin: 01/23/18 11:03 Dose: 100 mg Duloxetine HCl (Cymbalta -) 60 mg PO DAILY [facility] Last Admin: 01/23/18 11:04 Dose: 60 mg Folic Acid (Folic Acid -) 1 mg PO DAILY [facility] Last Admin: 01/23/18 11:03 Dose: 1 mg Furosemide (Lasix Injection -) 40 mg IVPUSH BID@0600,1400 [facility] Last Admin: 01/24/18 06:46 Dose: 40 mg Piperacillin Sod/Tazobactam (Sod 3.375 gm/ Dextrose) 50 mls @ 100 mls/hr IVPB Q8H-IV MANAN PRN Reason: Protocol Last Admin: 01/24/18 01:11 Dose: 100 mls/hr Insulin Aspart (Novolog Vial Sliding Scale -) 1 vial SQ ACHS MANAN PRN Reason: Protocol Last Admin: 01/24/18 07:00 Dose: 2 units Insulin Detemir (Levemir Vial) 25 units SQ AM MANAN Last Admin: 01/24/18 06:59 Dose: 25 units Insulin Detemir (Levemir Vial) 15 units SQ HS [facility] Last Admin: 01/23/18 21:41 Dose: 15 units Lactulose (Cephulac (Oral Use)) 20 gm PO TID PRN PRN Reason: CONSTIPATION Last Admin: 01/23/18 12:13 Dose: 20 gm Levothyroxine Sodium 125 mcg/ (Levothyroxine Sodium 50 mcg) 175 mcg PO DAILY@ 0700 [facility] Last Admin: 01/24/18 06:46 Dose: 175 mcg Methylnaltrexone [place] (Relistor -) 12 mg SQ DAILY [facility] Last Admin: 01/23/18 11:04 Dose: 12 mg Metoclopramide HCl (Reglan -) 5 mg PO TIDAC [facility] Last Admin: 01/24/18 06:46 Dose: 5 mg Montelukast Sodium (Singulair -) 10 mg PO HS [facility] Last Admin: 01/23/18 21:41 Dose: 10 mg Pancrelipase (Creon Dr 36,000 Units Capsule) 1 cap PO TIDCM [facility] Last Admin: 01/23/18 17:20 Dose: 1 cap Pantoprazole Sodium (Protonix -) 40 mg PO BID [facility] Last Admin: 01/23/18 11:03 Dose: 40 mg Polyethylene Glycol (Miralax (For Daily Use) -) 17 gm PO BID [facility] Last Admin: 01/23/18 21:42 Dose: Not Given Rifaximin (Xifaxan -) 550 mg PO TID [facility] Stop: 02/02/18 14:01 Last Admin: 01/24/18 06:46 Dose: 550 mg Sodium Chloride ([place] Nasal [place] -) 2 spray NS Q8H PRN PRN Reason: NASAL CONGESTION Thiamine HCl (Vitamin B1 Injection -) 200 mg IVPB Q8H-IV [facility] Stop: 01/26/18 19:44 Last Admin: 01/24/18 01:16 Dose: 200 mg - Objective Vital Signs: Vital Signs Temperature 98.7 F 01/24/18 06:00 Pulse Rate 60 01/24/18 06:00 Respiratory Rate 20 01/24/18 06:00 Blood Pressure 100/63 01/24/18 06:00 O2 Sat by Pulse Oximetry (%) 99 01/24/18 06:39 Cardiovascular: Yes: S1, S2 Respiratory: Yes: Regular, CTA Bilaterally Gastrointestinal: Yes: Normal Bowel Sounds, Soft. No: Tenderness Labs: CBC, BMP 01/24/18 05:35 01/24/18 05:35 INR, PTT INR 1.71 (0.82-1.09) H 01/24/18 05:35 Problem List - Problems (1) Abdominal fluid collection Code(s): R18.8 - OTHER ASCITES (2) Change in mental status Code(s): R41.82 - ALTERED MENTAL STATUS, UNSPECIFIED Qualifiers: Altered mental status type: unspecified Qualified Code(s): R41.82 - Altered mental status, unspecified (3) Atrial fibrillation Code(s): I48.91 - UNSPECIFIED ATRIAL FIBRILLATION Qualifiers: Atrial fibrillation type: paroxysmal Qualified Code(s): I48.0 - Paroxysmal atrial fibrillation (4) CAD (coronary artery disease) Code(s): I25.10 - ATHSCL HEART DISEASE OF [place] CORONARY ARTERY W/O ANG PCTRS Qualifiers: Coronary Disease-Associated Artery/Lesion type: unspecified vessel or lesion type [place] vs. transplanted heart: [place] heart Associated angina: angina presence unspecified Qualified Code(s): I25.10 - Atherosclerotic heart disease of [place] coronary artery without angina pectoris (5) Diabetes Code(s): E11.9 - TYPE 2 DIABETES MELLITUS WITHOUT COMPLICATIONS Qualifiers: Diabetes mellitus type: type 2 Diabetes mellitus complication detail: with other neurological complication Assessment/Plan - Problems (1) Abdominal fluid collection Assessment/Plan: -seen by Surgery -minimal, no invasive intervention indicated at this time -f/u ct results Code(s): R18.8 - OTHER ASCITES (2) THERON (acute kidney injury) Assessment/Plan: -nephrology consult -monitor trend -improving Code(s): N17.9 - ACUTE KIDNEY FAILURE, UNSPECIFIED (3) CAD (coronary artery disease) Assessment/Plan: -statin -cardiology consult appreciated Code(s): I25.10 - ATHSCL HEART DISEASE OF [place] CORONARY ARTERY W/O ANG PCTRS Qualifiers: Coronary Disease-Associated Artery/Lesion type: unspecified vessel or lesion type [place] vs. transplanted heart: [place] heart Associated angina: angina presence unspecified Qualified Code(s): I25.10 - Atherosclerotic heart disease of [place] coronary artery without angina pectoris (4) CHF (congestive heart failure) Assessment/Plan: -Furosemide 40 mg IVP now, then daily -I&O's -bronchodilators -seen by cardiology and pulmonary Code(s): I50.9 - HEART FAILURE, UNSPECIFIED Qualifiers: Heart failure type: systolic Heart failure chronicity: acute on chronic Qualified Code(s): I50.23 - Acute on chronic systolic (congestive) heart failure (5) Paroxysmal atrial fibrillation Assessment/Plan: -off Warfarin -start lovenox -Daily INR's Code(s): I48.0 - PAROXYSMAL ATRIAL FIBRILLATION (6) Aspiration into respiratory tract Assessment/Plan: -speech therapy -diet as ordered -[facility] [place] Code(s): T17.908A - UNSP FB IN RESP TRACT, PART UNSP CAUSING OTH INJURY, INIT
[2018-01-24] MEDS: FOLIC ACID 1 MG TABLET (FP) PO SCH (09:39)
[2018-01-24] MEDS: CARVEDILOL 6.25 MG TABLET (FP) PO SCH ×2 (09:39→21:55)
[2018-01-24] MEDS: DOCUSATE SODIUM 100 MG CAPSULE (FP) PO SCH (09:39)
[2018-01-24] MEDS: POLYETHYLENE GLYCOL 3350 119 GM BTL PO SCH ×2 (09:42→21:55)
--- NOTE | 2018-01-24 10:33 | PN ---
Progress Note, [employer] - Note Progress Note: Selected Entries 01/23/18 01/23/18 01/23/18 02:00 06:00 10:00 Breakfast Lunch Supper Temperature 98.2 F 97.4 F L 99.3 F 01/23/18 01/23/18 01/23/18 11:30 13:09 14:00 Breakfast 50% Lunch 75% Supper Temperature 97.3 F L 01/23/18 01/23/18 01/24/18 18:23 22:00 01:34 Breakfast Lunch Supper 25% Temperature 97.9 F 98.3 F 97.3 F L 01/24/18 06:00 Breakfast Lunch Supper Temperature 98.7 F Pt tolerating finely minced and pureed consistency foods. Dietary has modified the diet. MBS reviewed with nursing and dietary downgrade suggestion for dys ground/thin liquids/no straw.Ideally OOB for meals or HOB fully elevated . Pending MD order to downgrade to dys ground.
--- NOTE | 2018-01-24 10:44 | PN ---
Progress Note (short form) - Note Progress Note: PULMONARY More alert, awake but confused. Last Vital Signs Temp Pulse Resp BP Pulse Ox 98.7 F 60 20 100/63 99 01/24/18 06:00 01/24/18 06:00 01/24/18 06:00 01/24/18 06:00 01/24/18 06:39 Gen: NAD, confused Heart: RRR Lung: decreased breath sounds at the bases Abd: soft, nontender Ext: no edema CBC, BMP 01/24/18 05:35 01/24/18 05:35 Active Medications Al Hydroxide/Mg Hydroxide (Mylanta Oral Suspension -) 30 ml PO Q6H PRN PRN Reason: DYSPEPSIA Last Admin: 01/19/18 14:44 Dose: 30 ml Albuterol Sulfate (Ventolin 0.083% Nebulizer Soln -) 1 amp NEB Q4H PRN PRN Reason: SHORT OF BREATH/WHEEZING Last Admin: 01/23/18 23:39 Dose: 1 amp Carvedilol (Coreg -) 6.25 mg PO BID [facility] Last Admin: 01/24/18 09:39 Dose: 6.25 mg Docusate Sodium (Colace -) 100 mg PO DAILY [facility] Last Admin: 01/24/18 09:39 Dose: 100 mg Duloxetine HCl (Cymbalta -) 60 mg PO DAILY [facility] Last Admin: 01/23/18 11:04 Dose: 60 mg Enoxaparin Sodium (Lovenox -) 80 mg SQ BID [facility] Folic Acid (Folic Acid -) 1 mg PO DAILY [facility] Last Admin: 01/24/18 09:39 Dose: 1 mg Furosemide (Lasix Injection -) 40 mg IVPUSH BID@0600,1400 [facility] Last Admin: 01/24/18 06:46 Dose: 40 mg Piperacillin Sod/Tazobactam (Sod 3.375 gm/ Dextrose) 50 mls @ 100 mls/hr IVPB Q8H-IV [facility]NAN PRN Reason: Protocol Last Admin: 01/24/18 09:41 Dose: 100 mls/hr Insulin Aspart (Novolog Vial Sliding Scale -) 1 vial SQ ACHS MANAN PRN Reason: Protocol Last Admin: 01/24/18 07:00 Dose: 2 units Insulin Detemir (Levemir Vial) 25 units SQ AM [facility] Last Admin: 01/24/18 06:59 Dose: 25 units Insulin Detemir (Levemir Vial) 15 units SQ [facility] Last Admin: 01/23/18 21:41 Dose: 15 units Lactulose (Cephulac (Oral Use)) 20 gm PO TID [facility] Levothyroxine Sodium 125 mcg/ (Levothyroxine Sodium 50 mcg) 175 mcg PO DAILY@ 0700 [facility] Last Admin: 01/24/18 06:46 Dose: 175 mcg Methylnaltrexone [place] (Relistor -) 12 mg SQ DAILY [facility] Last Admin: 01/23/18 11:04 Dose: 12 mg Metoclopramide HCl (Reglan -) 5 mg PO TIDAC [facility] Last Admin: 01/24/18 06:46 Dose: 5 mg Montelukast Sodium (Singulair -) 10 mg PO [facility] Last Admin: 01/23/18 21:41 Dose: 10 mg Pancrelipase (Creon Dr 36,000 Units Capsule) 1 cap PO TIDCM [facility] Last Admin: 01/24/18 08:00 Dose: Not Given Pantoprazole Sodium (Protonix -) 40 mg PO BID [facility] Last Admin: 01/23/18 11:03 Dose: 40 mg Polyethylene Glycol (Miralax (For Daily Use) -) 17 gm PO BID [facility] Last Admin: 01/24/18 09:42 Dose: 17 gm Rifaximin (Xifaxan -) 550 mg PO TID [facility] Stop: 02/02/18 14:01 Last Admin: 01/24/18 06:46 Dose: 550 mg Sodium Chloride ([place] Nasal [place] -) 2 spray NS Q8H PRN PRN Reason: NASAL CONGESTION Thiamine HCl (Vitamin B1 Injection -) 200 mg IVPB Q8H-IV [facility] Stop: 01/26/18 19:44 Last Admin: 01/24/18 01:16 Dose: 200 mg A/P Intra-abdominal Fluid Collection r/o Sepsis Altered Mental Status improving Hyponatremia Acute on Chronic Systolic Heart Failure Atrial Fibrillation CAD HTN DM Hypothyroidism h/o Diverticulitis Elevated LFTs - antibiotics per ID - lasix - monitor urine output, creatinine - monitor lytes,LFTs - inhaled bronchodilators standing and PRN - O2 to keep SpO2 >90% - aspiration precautions - rate controlled Problem List - Problems (1) Acute on chronic systolic (congestive) heart failure Code(s): I50.23 - ACUTE ON CHRONIC SYSTOLIC (CONGESTIVE) HEART FAILURE (2) Abdominal fluid collection Code(s): R18.8 - OTHER ASCITES (3) Change in mental status Code(s): R41.82 - ALTERED MENTAL STATUS, UNSPECIFIED Qualifiers: Altered mental status type: unspecified Qualified Code(s): R41.82 - Altered mental status, unspecified (4) CAD (coronary artery disease) Code(s): I25.10 - ATHSCL HEART DISEASE OF [place] CORONARY ARTERY W/O ANG PCTRS Qualifiers: Coronary Disease-Associated Artery/Lesion type: unspecified vessel or lesion type [place] vs. transplanted heart: [place] heart Associated angina: angina presence unspecified Qualified Code(s): I25.10 - Atherosclerotic heart disease of [place] coronary artery without angina pectoris (5) Diabetes Code(s): E11.9 - TYPE 2 DIABETES MELLITUS WITHOUT COMPLICATIONS Qualifiers: Diabetes mellitus type: type 2 Diabetes mellitus complication detail: with other neurological complication (6) Hyponatremia Code(s): E87.1 - HYPO-OSMOLALITY AND HYPONATREMIA (7) Atrial fibrillation Code(s): I48.91 - UNSPECIFIED ATRIAL FIBRILLATION Qualifiers: Atrial fibrillation type: paroxysmal Qualified Code(s): I48.0 - Paroxysmal atrial fibrillation
--- NOTE | 2018-01-24 11:09 | PN ---
Progress Note, Physician History of Present Illness: Clinically the same. No acute events overnight. Denies nausea, vomiting, abdominal pain. Liver enzymes show slight improvement. - Current Medication List Current Medications: Active Medications Al Hydroxide/Mg Hydroxide (Mylanta Oral Suspension -) 30 ml PO Q6H PRN PRN Reason: DYSPEPSIA Last Admin: 01/19/18 14:44 Dose: 30 ml Albuterol Sulfate (Ventolin 0.083% Nebulizer Soln -) 1 amp NEB Q4H PRN PRN Reason: SHORT OF BREATH/WHEEZING Last Admin: 01/23/18 23:39 Dose: 1 amp Carvedilol (Coreg -) 6.25 mg PO BID [facility] Last Admin: 01/24/18 09:39 Dose: 6.25 mg Docusate Sodium (Colace -) 100 mg PO DAILY [facility] Last Admin: 01/24/18 09:39 Dose: 100 mg Duloxetine HCl (Cymbalta -) 60 mg PO DAILY [facility] Last Admin: 01/23/18 11:04 Dose: 60 mg Enoxaparin Sodium (Lovenox -) 80 mg SQ BID [facility] Folic Acid (Folic Acid -) 1 mg PO DAILY [facility] Last Admin: 01/24/18 09:39 Dose: 1 mg Furosemide (Lasix Injection -) 40 mg IVPUSH BID@0600,1400 [facility] Last Admin: 01/24/18 06:46 Dose: 40 mg Piperacillin Sod/Tazobactam (Sod 3.375 gm/ Dextrose) 50 mls @ 100 mls/hr IVPB Q8H-IV MANAN PRN Reason: Protocol Last Admin: 01/24/18 09:41 Dose: 100 mls/hr Insulin Aspart (Novolog Vial Sliding Scale -) 1 vial SQ ACHS [facility] PRN Reason: Protocol Last Admin: 01/24/18 07:00 Dose: 2 units Insulin Detemir (Levemir Vial) 25 units SQ AM [facility] Last Admin: 01/24/18 06:59 Dose: 25 units Insulin Detemir (Levemir Vial) 15 units SQ HS [facility] Last Admin: 01/23/18 21:41 Dose: 15 units Lactulose (Cephulac (Oral Use)) 20 gm PO TID [facility] Levothyroxine Sodium 125 mcg/ (Levothyroxine Sodium 50 mcg) 175 mcg PO DAILY@ 0700 [facility] Last Admin: 01/24/18 06:46 Dose: 175 mcg Methylnaltrexone [place] (Relistor -) 12 mg SQ DAILY [facility] Last Admin: 01/23/18 11:04 Dose: 12 mg Metoclopramide HCl (Reglan -) 5 mg PO TIDAC [facility] Last Admin: 01/24/18 06:46 Dose: 5 mg Montelukast Sodium (Singulair -) 10 mg PO HS [facility] Last Admin: 01/23/18 21:41 Dose: 10 mg Pancrelipase (Creon Dr 36,000 Units Capsule) 1 cap PO TIDCM [facility] Last Admin: 01/24/18 08:00 Dose: Not Given Pantoprazole Sodium (Protonix -) 40 mg PO BID [facility] Last Admin: 01/23/18 11:03 Dose: 40 mg Polyethylene Glycol (Miralax (For Daily Use) -) 17 gm PO BID [facility] Last Admin: 01/24/18 09:42 Dose: 17 gm Rifaximin (Xifaxan -) 550 mg PO TID [facility] Stop: 02/02/18 14:01 Last Admin: 01/24/18 06:46 Dose: 550 mg Sodium Chloride ([place] -) 2 spray NS Q8H PRN PRN Reason: NASAL CONGESTION Thiamine HCl (Vitamin B1 Injection -) 200 mg IVPB Q8H-IV [facility] Stop: 01/26/18 19:44 Last Admin: 01/24/18 10:58 Dose: 200 mg - Objective Vital Signs: Vital Signs Temperature 98.7 F 01/24/18 06:00 Pulse Rate 60 01/24/18 06:00 Respiratory Rate 20 01/24/18 06:00 Blood Pressure 100/63 01/24/18 06:00 O2 Sat by Pulse Oximetry (%) 99 01/24/18 06:39 Constitutional: Yes: No Distress, Calm Gastrointestinal: Yes: Soft. No: Tenderness, Tenderness, Rebound, Vomiting Neurological: Yes: Alert Labs: CBC, BMP 01/24/18 05:35 01/24/18 05:35 INR, PTT INR 1.71 (0.82-1.09) H 01/24/18 05:35 Laboratory Last Values WBC 7.2 K/mm3 (4.0-10.0) 01/24/18 05:35 RBC 3.41 M/mm3 (4.00-5.60) L 01/24/18 05:35 Hgb 9.6 GM/dL (11.7-16.9) L 01/24/18 05:35 Hct 29.1 % (35.4-49) L 01/24/18 05:35 MCV 85.5 fl (80-96) 01/24/18 05:35 MCH 28.2 pg (25.7-33.7) 01/24/18 05:35 MCHC 33.1 g/dl (32.0-35.9) 01/24/18 05:35 RDW 18.5 % (11.9-15.9) H 01/24/18 05:35 Plt Count 200 K/MM3 (134-434) 01/24/18 05:35 MPV 9.5 fl (7.5-11.1) 01/24/18 05:35 Neutrophils % 76.8 % (42.8-82.8) 01/24/18 05:35 Lymphocytes % 8.8 % (8-40) 01/24/18 05:35 Monocytes % 9.7 % (3.8-10.2) 01/24/18 05:35 Eosinophils % 4.4 % (0-4.5) D 01/24/18 05:35 Basophils % 0.3 % (0-2.0) 01/24/18 05:35 ESR 105 mm/hr (0-20) H 01/18/18 08:28 PT with INR 19.30 SEC (9.7-13.0) H 01/24/18 05:35 INR 1.71 (0.82-1.09) H 01/24/18 05:35 PTT (Actin FS) 36.2 SECONDS (26.9-34.4) H 01/17/18 13:12 Anticoagulation Therapy No Result Required. 01/20/18 16:10 Puncture Site Left radial 01/20/18 16:10 ABG pH 7.36 (7.35-7.45) 01/20/18 16:10 ABG pCO2 at Pt Temp 41.3 mmHg (35-45) 01/20/18 16:10 ABG pO2 at Pt Temp 119.0 mmHg (68-100) H 01/20/18 16:10 ABG HCO3 22.6 meq/L (22-26) 01/20/18 16:10 ABG O2 Sat (Measured) 98.2 % (90-98.9) 01/20/18 16:10 ABG O2 Content 13.7 % vol (15-22) L 01/20/18 16:10 ABG Base Excess -2.2 meq/l (-2-2) L 01/20/18 16:10 Edu Test Positive 01/20/18 16:10 Carboxyhemoglobin 1.5 gm% (0.5-2.0) 01/17/18 15:35 Methemoglobin 1.0 % (0.4-1.5) 01/17/18 15:35 O2 Delivery Device Nc 01/20/18 16:10 Oxygen Flow Rate 3l 01/20/18 16:10 Vent Mode No Result Required. 01/20/18 16:10 Vent Rate No Result Required. 01/20/18 16:10 Mechanical Rate No Result Required. 01/20/18 16:10 Pressure Support Vent No Result Required. 01/20/18 16:10 Sodium 135 mmol/L (136-145) L 01/24/18 05:35 Potassium 3.5 mmol/L (3.5-5.1) 01/24/18 05:35 Chloride 97 mmol/L (98-107) L 01/24/18 05:35 Carbon Dioxide 31 mmol/L (21-32) 01/24/18 05:35 Anion Gap 7 (8-16) L 01/24/18 05:35 BUN 42 mg/dL (7-18) H 01/24/18 05:35 Creatinine 1.1 mg/dL (0.7-1.3) D 01/24/18 05:35 Creat Clearance w eGFR > 60 (>60) 01/24/18 05:35 POC Glucometer 210 UNITS (80-120) 01/24/18 06:59 Random Glucose 194 mg/dL (74-106) H D 01/24/18 05:35 Hemoglobin A1c % 10.5 % (4.8-6.0) H D 01/18/18 08:28 Lactic Acid 1.2 mmol/L (0.0-2.0) 01/19/18 06:17 Calcium 8.0 mg/dL (8.5-10.1) L 01/24/18 05:35 Phosphorus 2.9 mg/dL (2.5-4.9) 01/24/18 05:35 Magnesium 2.0 mg/dL (1.8-2.4) 01/24/18 05:35 Total Bilirubin 0.8 mg/dL (0.2-1.0) 01/24/18 05:35 AST 40 U/L (15-37) H D 01/24/18 05:35 ALT 184 U/L (12-78) H D 01/24/18 05:35 Alkaline Phosphatase 395 U/L (45-117) H 01/24/18 05:35 Ammonia 50.06 umol/L (11-32) H 01/23/18 11:28 Creatine Kinase 30 IU/L (39-308) L 01/18/18 08:28 Troponin I 0.04 ng/ml (0.00-0.05) D 01/19/18 06:17 C-Reactive Protein 8.8 MG/DL (0.00-0.3) H 01/20/18 10:25 Total Protein 6.5 g/dl (6.4-8.2) 01/24/18 05:35 Albumin 2.5 g/dl (3.4-5.0) L 01/24/18 05:35 Triglycerides 69 mg/dL (35-160) D 01/18/18 08:28 Cholesterol 61 mg/dL (50-200) D 01/18/18 08:28 Total LDL Cholesterol 31 mg/dL (5-100) D 01/18/18 08:28 HDL Cholesterol 31 mg/dL (40-60) L 01/18/18 08:28 Carcinoembryonic Ag 3.8 ng/mL (0.0-4.7) 01/19/18 06:17 CA 19-9 Antigen 13 U/mL (0-35) 01/19/18 06:17 Prostate Specific Ag 0.60 ng/ml (0.0-4.0) 01/19/18 06:17 TSH 0.50 uIU/ml (0.358-3.74) D 01/18/18 08:28 Urine Color Yellow 01/17/18 12:27 Urine Appearance Clear 01/17/18 12:27 Urine pH 5.0 (5.0-8.0) 01/17/18 12:27 Ur Specific [place] 1.011 (1.001-1.035) 01/17/18 12:27 Urine Protein Negative (NEGATIVE) 01/17/18 12: Urine Glucose (UA) 3+ (NEGATIVE) H 01/17/18 12:27 Urine Ketones Negative (NEGATIVE) 01/17/18 12:27 Urine Blood Negative (NEGATIVE) 01/17/18 12: Urine Nitrite Negative (NEGATIVE) 01/17/18 12: Urine Bilirubin Negative (<2.0 mg/dL) 01/17/18 12: Urine Urobilinogen Negative mg/dL (0.2-1.0) 01/17/18 12: Ur Leukocyte Esterase Negative (NEGATIVE) 01/17/18 12: U Random Total Protein 32 mg/dl (5-11.9) H 01/21/18 21:00 Ur Random Urea Nitrogn 446 mg/dL 01/21/18 21:00 Urine Creatinine 46.0 mg/dL (20-370) 01/21/18 21:00 Salicylates < 1.700 mg/dL 01/17/18 20:47 Opiates Screen Negative ng/ml (KUKLYY=364) 01/17/18 21:40 Methadone Screen Negative ng/ml (VXHDOX=083) 01/17/18 21:40 Acetaminophen < 2.000 ug/mL 01/17/18 20:47 Barbiturate Screen Negative ng/ml (IGCETP=281) 01/17/18 21:40 Phencyclidine Screen Negative ng/ml (CUTOFF=25) 01/17/18 21:40 Ur Amphetamines Screen Negative ng/ml (JPZNVO=913) 01/17/18 21:40 MDMA (Ecstasy) Screen Negative ng/ml (WTXUVX=565) 01/17/18 21:40 Benzodiazepines Screen Negative ng/ml (BIMKDW=036) 01/17/18 21:40 Cocaine Screen Negative ng/ml (TMKLHJ=786) 01/17/18 21:40 U Marijuana (THC) Screen Negative ng/ml (CUTOFF=50) 01/17/18 21:40 Problem List - Problems (1) Hepatitis Code(s): K75.9 - INFLAMMATORY LIVER DISEASE, UNSPECIFIED (2) Intrahepatic cholestasis Code(s): K76.89 - OTHER SPECIFIED DISEASES OF LIVER Assessment/Plan Liver chemistry trending down so far. Continue current care. Follow viral serology results.
[2018-01-24] MEDS: ENOXAPARIN NA (PORCINE) 80 MG/0.8 ML DISP.SYRIN SQ SCH ×2 (11:11→21:55)
--- NOTE | 2018-01-24 11:23 | PN ---
Progress Note, Physician - Current Medication List Current Medications: Active Medications Al Hydroxide/Mg Hydroxide (Mylanta Oral Suspension -) 30 ml PO Q6H PRN PRN Reason: DYSPEPSIA Last Admin: 01/19/18 14:44 Dose: 30 ml Albuterol Sulfate (Ventolin 0.083% Nebulizer Soln -) 1 amp NEB Q4H PRN PRN Reason: SHORT OF BREATH/WHEEZING Last Admin: 01/23/18 23:39 Dose: 1 amp Carvedilol (Coreg -) 6.25 mg PO BID [facility] Last Admin: 01/24/18 09:39 Dose: 6.25 mg Docusate Sodium (Colace -) 100 mg PO DAILY [facility] Last Admin: 01/24/18 09:39 Dose: 100 mg Duloxetine HCl (Cymbalta -) 60 mg PO DAILY [facility] Last Admin: 01/23/18 11:04 Dose: 60 mg Enoxaparin Sodium (Lovenox -) 80 mg SQ BID [facility] Last Admin: 01/24/18 11:11 Dose: 80 mg Folic Acid (Folic Acid -) 1 mg PO DAILY [facility] Last Admin: 01/24/18 09:39 Dose: 1 mg Furosemide (Lasix Injection -) 40 mg IVPUSH BID@0600,1400 [facility] Last Admin: 01/24/18 06:46 Dose: 40 mg Piperacillin Sod/Tazobactam (Sod 3.375 gm/ Dextrose) 50 mls @ 100 mls/hr IVPB Q8H-IV [facility]NA[facility] PRN Reason: Protocol Last Admin: 01/24/18 09:41 Dose: 100 mls/hr Insulin Aspart (Novolog Vial Sliding Scale -) 1 vial SQ ACHS [facility] PRN Reason: Protocol Last Admin: 01/24/18 07:00 Dose: 2 units Insulin Detemir (Levemir Vial) 25 units SQ AM [facility] Last Admin: 01/24/18 06:59 Dose: 25 units Insulin Detemir (Levemir Vial) 15 units SQ HS [facility] Last Admin: 01/23/18 21:41 Dose: 15 units Lactulose (Cephulac (Oral Use)) 20 gm PO TID [facility] Levothyroxine Sodium 125 mcg/ (Levothyroxine Sodium 50 mcg) 175 mcg PO DAILY@ 0700 [facility] Last Admin: 01/24/18 06:46 Dose: 175 mcg Methylnaltrexone [place] (Relistor -) 12 mg SQ DAILY [facility] Last Admin: 01/23/18 11:04 Dose: 12 mg Metoclopramide HCl (Reglan -) 5 mg PO TIDAC [facility] Last Admin: 01/24/18 06:46 Dose: 5 mg Montelukast Sodium (Singulair -) 10 mg PO HS [facility] Last Admin: 01/23/18 21:41 Dose: 10 mg Pancrelipase (Creon Dr 36,000 Units Capsule) 1 cap PO TIDCM [facility] Last Admin: 01/24/18 08:00 Dose: Not Given Pantoprazole Sodium (Protonix -) 40 mg PO BID [facility] Last Admin: 01/23/18 11:03 Dose: 40 mg Polyethylene Glycol (Miralax (For Daily Use) -) 17 gm PO BID [facility] Last Admin: 01/24/18 09:42 Dose: 17 gm Rifaximin (Xifaxan -) 550 mg PO TID [facility] Stop: 02/02/18 14:01 Last Admin: 01/24/18 06:46 Dose: 550 mg Sodium Chloride ([place] Nasal [place] -) 2 spray NS Q8H PRN PRN Reason: NASAL CONGESTION Thiamine HCl (Vitamin B1 Injection -) 200 mg IVPB Q8H-IV [facility] Stop: 01/26/18 19:44 Last Admin: 01/24/18 10:58 Dose: 200 mg - Objective Vital Signs: Vital Signs Temperature 98.7 F 01/24/18 06:00 Pulse Rate 60 01/24/18 06:00 Respiratory Rate 20 01/24/18 06:00 Blood Pressure 100/63 01/24/18 06:00 O2 Sat by Pulse Oximetry (%) 99 01/24/18 06:39 Labs: CBC, BMP 01/24/18 05:35 01/24/18 05:35 INR, PTT INR 1.71 (0.82-1.09) H 01/24/18 05:35 Problem List - Problems (1) Abdominal fluid collection Code(s): R18.8 - OTHER ASCITES (2) Aspiration into respiratory tract Code(s): T17.908A - UNSP FB IN RESP TRACT, PART UNSP CAUSING OTH INJURY, INIT (3) Change in mental status Code(s): R41.82 - ALTERED MENTAL STATUS, UNSPECIFIED Qualifiers: Altered mental status type: unspecified Qualified Code(s): R41.82 - Altered mental status, unspecified (4) Fever Code(s): R50.9 - FEVER, UNSPECIFIED Qualifiers: Fever type: unspecified Qualified Code(s): R50.9 - Fever, unspecified (5) Paroxysmal atrial fibrillation Code(s): I48.0 - PAROXYSMAL ATRIAL FIBRILLATION (6) Pelvic fluid collection Code(s): R18.8 - OTHER ASCITES (7) Urinary retention Code(s): R33.9 - RETENTION OF URINE, UNSPECIFIED (8) Abdominal pain Code(s): R10.9 - UNSPECIFIED ABDOMINAL PAIN Qualifiers: Abdominal location: right upper quadrant Qualified Code(s): R10.11 - Right upper quadrant pain (9) Type 2 diabetes mellitus with diabetic chronic kidney disease Code(s): E11.22 - TYPE 2 DIABETES MELLITUS W DIABETIC CHRONIC KIDNEY DISEASE (10) Type 2 diabetes mellitus with other diabetic kidney complication Code(s): E11.29 - TYPE 2 DIABETES MELLITUS W OTH DIABETIC KIDNEY COMPLICATION (11) Toxic metabolic encephalopathy Code(s): G92 - TOXIC ENCEPHALOPATHY
[2018-01-24] MEDS: Methylnaltrexone Bromide 12 MG/0.6 ML KIT SQ SCH (12:21)
[2018-01-24] MEDS: LACTULOSE 20 GM/30 ML UDC (FOR ORAL USE ONLY) PO SCH ×2 (14:06→21:55)
--- NOTE | 2018-01-24 14:26 | PN ---
Progress Note (short form) - Note Progress Note: Renal follow up for THERON on CKD and Hyponatremia Pt seen and examined at the bedside awake and alert sob and cough is improved abd pain is also improved making urine Vital Signs Temperature 99.3 F 01/23/18 10:00 Pulse Rate 69 01/23/18 10:00 Respiratory Rate 20 01/23/18 10:00 Blood Pressure 117/75 01/23/18 10:00 O2 Sat by Pulse Oximetry (%) 99 01/23/18 09:00 Intake & Output 01/20/18 01/21/18 01/22/18 01/23/18 23:59 23:59 23:59 23:59 Intake Total 960 0 1070 950 Output Total 1650 1350 2300 1550 Balance -690 -1350 -1230 -600 Weight 100.335 kg 95.028 kg 97.976 kg NAD awake and alert MMM no JVD irregular dec BS soft NT/ND Trace LE edema CBC, BMP 01/23/18 05:35 01/23/18 05:35 Current Medications Al Hydroxide/Mg Hydroxide (Mylanta Oral Suspension -) 30 ml PO Q6H PRN PRN Reason: DYSPEPSIA Last Admin: 01/19/18 14:44 Dose: 30 ml Albuterol Sulfate (Ventolin 0.083% Nebulizer Soln -) 1 amp NEB Q4H PRN PRN Reason: SHORT OF BREATH/WHEEZING Last Admin: 01/22/18 12:59 Dose: 1 amp Carvedilol (Coreg -) 6.25 mg PO BID [facility] Last Admin: 01/23/18 11:04 Dose: 6.25 mg Docusate Sodium (Colace -) 100 mg PO DAILY [facility] Last Admin: 01/23/18 11:03 Dose: 100 mg Duloxetine HCl (Cymbalta -) 60 mg PO DAILY [facility] Last Admin: 01/23/18 11:04 Dose: 60 mg Folic Acid (Folic Acid -) 1 mg PO DAILY [facility] Last Admin: 01/23/18 11:03 Dose: 1 mg Furosemide (Lasix Injection -) 40 mg IVPUSH BID@0600,1400 [facility] Last Admin: 01/23/18 14:32 Dose: 40 mg Piperacillin Sod/Tazobactam (Sod 3.375 gm/ Dextrose) 50 mls @ 100 mls/hr IVPB Q8H-IV [facility] PRN Reason: Protocol Last Admin: 01/23/18 17:23 Dose: 100 mls/hr Insulin Aspart (Novolog Vial Sliding Scale -) 1 vial SQ ACHS [facility] PRN Reason: Protocol Last Admin: 01/23/18 16:50 Dose: 5 units Insulin Detemir (Levemir Vial) 25 units SQ AM [facility] Last Admin: 01/23/18 06:35 Dose: 25 units Insulin Detemir (Levemir Vial) 15 units SQ HS [facility] Last Admin: 01/22/18 22:25 Dose: 15 units Lactulose (Cephulac (Oral Use)) 20 gm PO TID PRN PRN Reason: CONSTIPATION Last Admin: 01/23/18 12:13 Dose: 20 gm Levothyroxine Sodium 125 mcg/ (Levothyroxine Sodium 50 mcg) 175 mcg PO DAILY@ 0700 [facility] Last Admin: 01/23/18 06:34 Dose: 175 mcg Methylnaltrexone [place] (Relistor -) 12 mg SQ DAILY [facility] Last Admin: 01/23/18 11:04 Dose: 12 mg Metoclopramide HCl (Reglan -) 5 mg PO TIDAC [facility] Last Admin: 01/23/18 16:50 Dose: 5 mg Montelukast Sodium (Singulair -) 10 mg PO HS [facility] Last Admin: 01/22/18 22:27 Dose: 10 mg Pancrelipase (Creon Dr 36,000 Units Capsule) 1 cap PO TIDCM [facility] Last Admin: 01/23/18 17:20 Dose: 1 cap Pantoprazole Sodium (Protonix -) 40 mg PO BID [facility] Last Admin: 01/23/18 11:03 Dose: 40 mg Polyethylene Glycol (Miralax (For Daily Use) -) 17 gm PO BID [facility] Last Admin: 01/23/18 11:04 Dose: 17 gm Rifaximin (Xifaxan -) 550 mg PO TID [facility] Stop: 02/02/18 14:01 Last Admin: 01/23/18 14:31 Dose: 550 mg Sodium Chloride ([place] -) 2 spray NS Q8H PRN PRN Reason: NASAL CONGESTION 83 year old gentleman with PMhx of CHF, AFib on coumadin, CAD, Hypertension, HLD , IDDM who presented with confusion and weakness and found to have intra- abdominal fluid collection with suspsion of abcess with THERON. #THERON in setting of suspected sepsis/intra-abdominal collection #CHF with fluid overload #Intraadbominal collection #Hyperkalemia #Hyponatremia renal function stable at this time continue present dose diuretics CXR done yesterday does now show overt effusions continue Abx as per ID K and Na is improved Keshav Werner DO
[2018-01-24] MEDS: MONTELUKAST NA 10 MG TABLET PO SCH (21:56)
[2018-01-25] MEDS ORDERED: DEXTROSE 5%-WATER - 50 ML IVPB ONE ×4 (00:53→16:59)
[2018-01-25] MEDS ORDERED: PIPERACILLIN/TAZOBACTAM 3.375 GM VIAL IVPB ONE ×4 (00:53→16:59)
[2018-01-25] MEDS: THIAMINE HCL 200 MG/2 ML VIAL IVPB SCH ×3 (01:17→17:51)
[2018-01-25] MEDS: PIPERACILLIN/TAZOB 3.375 GM 3.375 GM in DEXTROSE 5%-WATER - 50 ML IVPB SCH ×3 (01:17→17:12)
[2018-01-25] MEDS ORDERED: FUROSEMIDE 40 MG/4 ML INJECTABLE VIAL IVPUSH ONE (01:22)
--- NOTE | 2018-01-25 01:24 | HOSP ---
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 Patient awake, alert, but not oriented x3. He deviates off into tangents during the conversation. Unable to elaborate on chest pain. VS: T-98.5 BP-115/68 HR-68 RR-14 O2 - 92 Physical exam notable for RRR on cardiac exam. Diffuse crackles bilaterally. Pt has hx of CHF Will order IV Lasix 40 x1, with close BP monitoring. STAT EKG is unchanged from previous with J point elevations that were present previously in V3 and V4 Chest pain likely from congestion. Will obtain CXR Will r/o ACS with trops O2 as needed Visit type - Emergency Visit Emergency Visit: Yes ED Registration Date: 01/17/18 Care time: The patient presented to the Emergency Department on the above date and was hospitalized for further evaluation of their emergent condition. - New Patient This patient is new to me today: Yes Date on this admission: 01/28/18 - Critical Care Critical Care patient: No
[2018-01-25] MEDS ORDERED: LEVOTHYROXINE NA 50 MCG TABLET (FP) ONE (05:57)
[2018-01-25] MEDS ORDERED: LEVOTHYROXINE NA 125 MCG TABLET (FP) ONE (05:57)
[2018-01-25] MEDS: LACTULOSE 20 GM/30 ML UDC (FOR ORAL USE ONLY) PO SCH ×3 (06:24→22:42)
[2018-01-25] MEDS: METOCLOPRAMIDE HCL 10 MG TABLET (FP) PO SCH ×3 (06:24→17:13)
[2018-01-25] MEDS: FUROSEMIDE 40 MG/4 ML INJECTABLE VIAL IVPUSH SCH ×3 (06:24→13:56)
[2018-01-25] MEDS: RIFAXIMIN 550 MG TABLET (UD) PO SCH ×3 (06:25→22:44)
[2018-01-25] MEDS: LEVOTHYROXINE 125 MCG, LEVOTHYROXINE 50 MCG PO SCH (06:25)
[2018-01-25] MEDS: INSULIN (LEVEMIR) 100 UNITS/ML UNITS SQ SCH ×2 (06:29→22:41)
[2018-01-25] MEDS: INSULIN SLIDING SCALE (NOVOLOG) 1 VIAL SQ SCH ×4 (06:30→22:39)
[2018-01-25] MEDS ORDERED: PT OWN MED DRAWER 7, Y5N ONE ×3 (06:42→22:38)
[2018-01-25 07:38] LABS: BASO % 0.7 % (0-2.0); EOS % 3.5 % (0-4.5); HEMOGLOBIN 9.9 GM/dL (11.7-16.9); LYMPH % 9.2 % (8-40); MEAN CELL VOLUME 84.8 fl (80-96); MEAN PLT VOLUME 9.3 fl (7.5-11.1); MONO % 8.5 % (3.8-10.2); NEUT % 78.1 % (42.8-82.8); PLATELET COUNT 204 K/MM3 (134-434); RBC 3.54 M/mm3 (4.00-5.60); RDW 17.6 % (11.9-15.9); WHITE BLOOD COUNT 9.7 K/mm3 (4.0-10.0)
[2018-01-25 07:47] LABS: INR 1.51 (0.82-1.09); PROTHROMBIN TIME (PATIENT) 17.1 SEC (9.7-13.0)
[2018-01-25 07:48] LABS: ALBUMIN 2.4 g/dl (3.4-5.0); ANION GAP 9 (8-16); BLOOD UREA NITROGEN 27 mg/dL (7-18); CALCIUM 8.2 mg/dL (8.5-10.1); CHLORIDE 94 mmol/L (98-107); CO2 33 mmol/L (21-32); GLUCOSE,RANDOM 84 mg/dL (74-106); MAGNESIUM 1.8 mg/dL (1.8-2.4); POTASSIUM 3.1 mmol/L (3.5-5.1); SGOT/AST 28 U/L (15-37); SGPT/ALT 142 U/L (12-78); SODIUM 136 mmol/L (136-145)
[2018-01-25 07:50] LABS: ALK PHOS 337 U/L (45-117); BILIRUBIN,TOTAL 1.1 mg/dL (0.2-1.0); TOT PROT 6.7 g/dl (6.4-8.2)
[2018-01-25] MEDS: LIPASE/PROTEASE/AMYLASE 36,000 UNIT CAPSULE PO SCH ×3 (09:00→17:13)
--- NOTE | 2018-01-25 09:31 | EKG ---
Test Reason : Blood Pressure : / mmHG Vent. Rate : 068 BPM Atrial Rate : 068 BPM P-R Int : 128 ms QRS Dur : 204 ms QT Int : 518 ms P-R-T Axes : 091 269 110 degrees QTc Int : 550 ms Atrial-sensed ventricular-paced rhythm ABNORMAL ECG WHEN COMPARED WITH ECG OF 19-JAN-2018 06:09, VENT. RATE HAS DECREASED BY 5 BPM Confirmed by MADI RUTH MD ([id number]) on 01/25/2018 9:31:15 AM Referred By: Confirmed By:MADI RUTH MD
[2018-01-25] MEDS: FOLIC ACID 1 MG TABLET (FP) PO SCH (09:51)
[2018-01-25] MEDS: DOCUSATE SODIUM 100 MG CAPSULE (FP) PO SCH (09:51)
[2018-01-25] MEDS: ENOXAPARIN NA (PORCINE) 80 MG/0.8 ML DISP.SYRIN SQ SCH ×2 (09:51→22:42)
[2018-01-25] MEDS: CARVEDILOL 6.25 MG TABLET (FP) PO SCH ×2 (09:51→22:43)
[2018-01-25] MEDS: Methylnaltrexone Bromide 12 MG/0.6 ML KIT SQ SCH (09:52)
[2018-01-25] MEDS: POLYETHYLENE GLYCOL 3350 119 GM BTL PO SCH ×2 (09:52→22:44)
[2018-01-25] MEDS ORDERED: POTASSIUM CHLORIDE 10 MEQ in SODIUM CHLORIDE 100 ML IVPB SCH (11:00)
--- NOTE | 2018-01-25 11:00 | PN ---
Progress Note, Physician Chief Complaint: NOTES AND EVENTS REVIEWED OVERNIGHT PATIENT DEVELOPED WORSENING OF PULMONARY CONGESTION AND WAS GIVEN LASIX IV DOSE. CXR REVIEWED PATIENT IS AWAKE ALERT TODAY NO DISTRESS - Current Medication List Current Medications: Active Medications Al Hydroxide/Mg Hydroxide (Mylanta Oral Suspension -) 30 ml PO Q6H PRN PRN Reason: DYSPEPSIA Last Admin: 01/19/18 14:44 Dose: 30 ml Albuterol Sulfate (Ventolin 0.083% Nebulizer Soln -) 1 amp NEB Q4H PRN PRN Reason: SHORT OF BREATH/WHEEZING Last Admin: 01/23/18 23:39 Dose: 1 amp Carvedilol (Coreg -) 6.25 mg PO BID [facility] Last Admin: 01/25/18 09:51 Dose: 6.25 mg Docusate Sodium (Colace -) 100 mg PO DAILY [facility] Last Admin: 01/25/18 09:51 Dose: 100 mg Duloxetine HCl (Cymbalta -) 60 mg PO DAILY [facility] Last Admin: 01/23/18 11:04 Dose: 60 mg Enoxaparin Sodium (Lovenox -) 80 mg SQ BID [facility] Last Admin: 01/25/18 09:51 Dose: 80 mg Folic Acid (Folic Acid -) 1 mg PO DAILY [facility] Last Admin: 01/25/18 09:51 Dose: 1 mg Furosemide (Lasix Injection -) 40 mg IVPUSH BID@0600,1400 [facility] Last Admin: 01/25/18 06:24 Dose: 40 mg Piperacillin Sod/Tazobactam (Sod 3.375 gm/ Dextrose) 50 mls @ 100 mls/hr IVPB Q8H-IV [facility]NA[facility] PRN Reason: Protocol Last Admin: 01/25/18 09:52 Dose: 100 mls/hr Potassium Chloride (Potassium Chloride 10 Meq Premix Ivpb -) 10 meq in 100 mls @ 100 mls/hr IVPB Q60M [facility] Stop: 01/25/18 11:59 Insulin Aspart (Novolog Vial Sliding Scale -) 1 vial SQ ACHS [facility] PRN Reason: Protocol Last Admin: 01/25/18 06:30 Dose: Not Given Insulin Detemir (Levemir Vial) 25 units SQ AM [facility] Last Admin: 01/25/18 06:29 Dose: 25 units Insulin Detemir (Levemir Vial) 15 units SQ HS [facility] Last Admin: 01/24/18 21:55 Dose: 15 units Lactulose (Cephulac (Oral Use)) 20 gm PO TID [facility] Last Admin: 01/25/18 06:24 Dose: 20 gm Levothyroxine Sodium 125 mcg/ (Levothyroxine Sodium 50 mcg) 175 mcg PO DAILY@ 0700 [facility] Last Admin: 01/25/18 06:25 Dose: 175 mcg Methylnaltrexone [place] (Relistor -) 12 mg SQ DAILY [facility] Last Admin: 01/25/18 09:52 Dose: 12 mg Metoclopramide HCl (Reglan -) 5 mg PO TIDAC [facility] Last Admin: 01/25/18 06:24 Dose: 5 mg Montelukast Sodium (Singulair -) 10 mg PO HS [facility] Last Admin: 01/24/18 21:56 Dose: 10 mg Pancrelipase (Creon Dr 36,000 Units Capsule) 1 cap PO TIDCM [facility] Last Admin: 01/25/18 09:00 Dose: 1 cap Pantoprazole Sodium (Protonix -) 40 mg PO BID [facility] Last Admin: 01/23/18 11:03 Dose: 40 mg Polyethylene Glycol (Miralax (For Daily Use) -) 17 gm PO BID [facility] Last Admin: 01/25/18 09:52 Dose: 17 gm Potassium Chloride (Potassium Chloride Oral Liquid) 40 meq PO ONCE ONE Stop: 01/25/18 11:31 Rifaximin (Xifaxan -) 550 mg PO TID [facility] Stop: 02/02/18 14:01 Last Admin: 01/25/18 06:25 Dose: 550 mg Sodium Chloride ([place] Nasal [place] -) 2 spray NS Q8H PRN PRN Reason: NASAL CONGESTION Thiamine HCl (Vitamin B1 Injection -) 200 mg IVPB Q8H-IV [facility] Stop: 01/26/18 19:44 Last Admin: 01/25/18 10:32 Dose: 200 mg - Objective Vital Signs: Vital Signs Temperature 98.6 F 01/25/18 05:25 Pulse Rate 65 01/25/18 05:25 Respiratory Rate 18 01/25/18 05:25 Blood Pressure 109/67 01/25/18 05:25 O2 Sat by Pulse Oximetry (%) 98 01/24/18 21:00 Constitutional: Yes: No Distress Eyes: Yes: WNL HENT: Yes: WNL Neck: Yes: WNL Cardiovascular: Yes: Pulse Irregular Respiratory: Yes: Diminished, On Nasal O2 Gastrointestinal: Yes: Tenderness Genitourinary: Yes: Incontinence Musculoskeletal: Yes: Muscle Weakness Extremities: Yes: Other Edema: Yes Edema: LLE: Trace, RLE: Trace Peripheral Pulses WNL: Yes Integumentary: Yes: Pressure Ulcer, Rash, Venous Stasis Changes Wound/Incision: Yes: Dressing Dry and Intact Neurological: Yes: Confusion, Pre-Existing Deficit ...Motor Strength: LLE, RLE Psychiatric: Yes: Other Labs: CBC, BMP 01/25/18 07:07 01/25/18 07:07 INR, PTT INR 1.51 (0.82-1.09) H 01/25/18 07:07 Problem List - Problems (1) Abdominal fluid collection Code(s): R18.8 - OTHER ASCITES (2) Aspiration into respiratory tract Code(s): T17.908A - UNSP FB IN RESP TRACT, PART UNSP CAUSING OTH INJURY, INIT (3) Change in mental status Code(s): R41.82 - ALTERED MENTAL STATUS, UNSPECIFIED Qualifiers: Altered mental status type: unspecified Qualified Code(s): R41.82 - Altered mental status, unspecified (4) Fever Code(s): R50.9 - FEVER, UNSPECIFIED Qualifiers: Fever type: unspecified Qualified Code(s): R50.9 - Fever, unspecified (5) Paroxysmal atrial fibrillation Code(s): I48.0 - PAROXYSMAL ATRIAL FIBRILLATION (6) Pelvic fluid collection Code(s): R18.8 - OTHER ASCITES (7) Urinary retention Code(s): R33.9 - RETENTION OF URINE, UNSPECIFIED (8) Abdominal pain Code(s): R10.9 - UNSPECIFIED ABDOMINAL PAIN Qualifiers: Abdominal location: right upper quadrant Qualified Code(s): R10.11 - Right upper quadrant pain (9) Type 2 diabetes mellitus with diabetic chronic kidney disease Code(s): E11.22 - TYPE 2 DIABETES MELLITUS W DIABETIC CHRONIC KIDNEY DISEASE (10) Type 2 diabetes mellitus with other diabetic kidney complication Code(s): E11.29 - TYPE 2 DIABETES MELLITUS W OTH DIABETIC KIDNEY COMPLICATION (11) Toxic metabolic encephalopathy Code(s): G92 - TOXIC ENCEPHALOPATHY Assessment/Plan AMMONIA LEVEL ELEVATED ADD XIFAXIN WITH LACTULOSE LOVENOX FOR AC BARIUM STILL IN GI TRACT AWAIT TIL THIS CLEARS ONCE IR FEELS BARIUM HAS PASSED MAY ASPIRATE GI ASPIRATIONS/FLUID COLLECTION PALLIAITVE CARE CONSULT CALLED PATIENT WILL NEED [facility] PLACEMENT IN A HALF-WAY SETTING RESTRAINT VEST FOR FALL PRECAUTIONS
[2018-01-25] MEDS ORDERED: POTASSIUM CHLORIDE ORAL LIQUID 20 MEQ/15 ML PO ONE (11:30)
--- NOTE | 2018-01-25 12:54 | PN ---
Progress Note, Physician History of Present Illness: pulmonary alert,increased congestion lasix given with some improvement,less abd discomfort - Current Medication List Current Medications: Active Medications Al Hydroxide/Mg Hydroxide (Mylanta Oral Suspension -) 30 ml PO Q6H PRN PRN Reason: DYSPEPSIA Last Admin: 01/19/18 14:44 Dose: 30 ml Albuterol Sulfate (Ventolin 0.083% Nebulizer Soln -) 1 amp NEB Q4H PRN PRN Reason: SHORT OF BREATH/WHEEZING Last Admin: 01/23/18 23:39 Dose: 1 amp Carvedilol (Coreg -) 6.25 mg PO BID [facility] Last Admin: 01/25/18 09:51 Dose: 6.25 mg Docusate Sodium (Colace -) 100 mg PO DAILY [facility] Last Admin: 01/25/18 09:51 Dose: 100 mg Duloxetine HCl (Cymbalta -) 60 mg PO DAILY [facility] Last Admin: 01/23/18 11:04 Dose: 60 mg Enoxaparin Sodium (Lovenox -) 80 mg SQ BID [facility] Last Admin: 01/25/18 09:51 Dose: 80 mg Folic Acid (Folic Acid -) 1 mg PO DAILY [facility] Last Admin: 01/25/18 09:51 Dose: 1 mg Furosemide (Lasix Injection -) 40 mg IVPUSH BID@0600,1400 [facility] Last Admin: 01/25/18 06:24 Dose: 40 mg Piperacillin Sod/Tazobactam (Sod 3.375 gm/ Dextrose) 50 mls @ 100 mls/hr IVPB Q8H-IV [facility] PRN Reason: Protocol Last Admin: 01/25/18 09:52 Dose: 100 mls/hr Insulin Aspart (Novolog Vial Sliding Scale -) 1 vial SQ ACHS [facility] PRN Reason: Protocol Last Admin: 01/25/18 11:35 Dose: Not Given Insulin Detemir (Levemir Vial) 25 units SQ AM [facility] Last Admin: 01/25/18 06:29 Dose: 25 units Insulin Detemir (Levemir Vial) 15 units SQ HS [facility] Last Admin: 01/24/18 21:55 Dose: 15 units Lactulose (Cephulac (Oral Use)) 20 gm PO TID [facility] Last Admin: 01/25/18 06:24 Dose: 20 gm Levothyroxine Sodium 125 mcg/ (Levothyroxine Sodium 50 mcg) 175 mcg PO DAILY@ 0700 [facility] Last Admin: 01/25/18 06:25 Dose: 175 mcg Methylnaltrexone [place] (Relistor -) 12 mg SQ DAILY [facility] Last Admin: 01/25/18 09:52 Dose: 12 mg Metoclopramide HCl (Reglan -) 5 mg PO TIDAC [facility] Last Admin: 01/25/18 11:35 Dose: 5 mg Montelukast Sodium (Singulair -) 10 mg PO HS [facility] Last Admin: 01/24/18 21:56 Dose: 10 mg Pancrelipase (Creon Dr 36,000 Units Capsule) 1 cap PO TIDCM [facility] Last Admin: 01/25/18 12:27 Dose: 1 cap Pantoprazole Sodium (Protonix -) 40 mg PO BID [facility] Last Admin: 01/23/18 11:03 Dose: 40 mg Polyethylene Glycol (Miralax (For Daily Use) -) 17 gm PO BID [facility] Last Admin: 01/25/18 09:52 Dose: 17 gm Rifaximin (Xifaxan -) 550 mg PO TID [facility] Stop: 02/02/18 14:01 Last Admin: 01/25/18 06:25 Dose: 550 mg Sodium Chloride ([place] Nasal [place] -) 2 spray NS Q8H PRN PRN Reason: NASAL CONGESTION Thiamine HCl (Vitamin B1 Injection -) 200 mg IVPB Q8H-IV [facility] Stop: 01/26/18 19:44 Last Admin: 01/25/18 10:32 Dose: 200 mg - Objective Vital Signs: Vital Signs Temperature 98.6 F 01/25/18 05:25 Pulse Rate 65 01/25/18 05:25 Respiratory Rate 18 01/25/18 05:25 Blood Pressure 109/67 01/25/18 05:25 O2 Sat by Pulse Oximetry (%) 98 01/24/18 21:00 Constitutional: Yes: Well Nourished, Calm Eyes: Yes: WNL HENT: Yes: WNL Neck: Yes: WNL Cardiovascular: Yes: Pulse Irregular, S1, S2 Respiratory: Yes: Rhonchi, Wheezes (scattered [place] wheezes and rhonchi) Gastrointestinal: Yes: Soft Extremities: Yes: WNL Edema: No Labs: CBC, BMP 01/25/18 07:07 01/25/18 07:07 INR, PTT INR 1.51 (0.82-1.09) H 01/25/18 07:07 Assessment/Plan Problem List - Problems (1) Acute on chronic systolic (congestive) heart failure Code(s): I50.23 - ACUTE ON CHRONIC SYSTOLIC (CONGESTIVE) HEART FAILURE (2) Abdominal fluid collection Code(s): R18.8 - OTHER ASCITES (3) Change in mental status Code(s): R41.82 - ALTERED MENTAL STATUS, UNSPECIFIED Qualifiers: Altered mental status type: unspecified Qualified Code(s): R41.82 - Altered mental status, unspecified (4) CAD (coronary artery disease) Code(s): I25.10 - ATHSCL HEART DISEASE OF [place] CORONARY ARTERY W/O ANG PCTRS Qualifiers: Coronary Disease-Associated Artery/Lesion type: unspecified vessel or lesion type [place] vs. transplanted heart: [place] heart Associated angina: angina presence unspecified Qualified Code(s): I25.10 - Atherosclerotic heart disease of [place] coronary artery without angina pectoris (5) Diabetes Code(s): E11.9 - TYPE 2 DIABETES MELLITUS WITHOUT COMPLICATIONS Qualifiers: Diabetes mellitus type: type 2 Diabetes mellitus complication detail: with other neurological complication (6) Hyponatremia Code(s): E87.1 - HYPO-OSMOLALITY AND HYPONATREMIA improved (7) Atrial fibrillation Code(s): I48.91 - UNSPECIFIED ATRIAL FIBRILLATION Qualifiers: Atrial fibrillation type: paroxysmal Qualified Code(s): I48.0 - Paroxysmal atrial fibrillation Assessment/Plan Intra-abdominal Fluid Collection r/o Sepsis Altered Mental Status Hyponatremia Acute on Chronic Systolic Heart Failure Atrial Fibrillation CAD HTN DM Hypothyroidism h/o Diverticulitis Elevated LFTs Elevated ammonia level - antibiotics per ID - lasix - monitor urine output, creatinine - monitor lytes,LFTs - inhaled bronchodilators standing and PRN - O2 to keep SpO2 >90% - aspiration precautions - rate controlled - f/u chest x-rays - lactulose - monitor ammonia level DR SPRINGER
--- NOTE | 2018-01-25 14:02 | PN ---
Progress Note (short form) - Note Progress Note: Renal follow up for THERON on CKD and Hyponatremia Pt seen and examined at the bedside awake and alert on NC O2 making urine sob improved but not at baseline abd pain is improved Vital Signs Temperature 98.7 F 01/25/18 13:52 Pulse Rate 63 01/25/18 13:52 Respiratory Rate 12 01/25/18 13:52 Blood Pressure 136/58 01/25/18 13:52 O2 Sat by Pulse Oximetry (%) 98 01/24/18 21:00 Intake & Output 01/22/18 01/23/18 01/24/18 01/25/18 23:59 23:59 23:59 23:59 Intake Total 1070 1360 530 550 Output Total 2300 3350 2900 2700 Balance -0 -1989 -0 -0 Weight 95.028 kg 97.976 kg 87.09 kg 97.432 kg NAD awake and alert MMM no JVD irregular some rales in lower lung shafer soft NT/ND Trace LE edema CBC, BMP 01/25/18 07:07 01/25/18 07:07 Current Medications Al Hydroxide/Mg Hydroxide (Mylanta Oral Suspension -) 30 ml PO Q6H PRN PRN Reason: DYSPEPSIA Last Admin: 01/19/18 14:44 Dose: 30 ml Albuterol Sulfate (Ventolin 0.083% Nebulizer Soln -) 1 amp NEB Q4H PRN PRN Reason: SHORT OF BREATH/WHEEZING Last Admin: 01/23/18 23:39 Dose: 1 amp Carvedilol (Coreg -) 6.25 mg PO BID [facility] Last Admin: 01/25/18 09:51 Dose: 6.25 mg Docusate Sodium (Colace -) 100 mg PO DAILY [facility] Last Admin: 01/25/18 09:51 Dose: 100 mg Duloxetine HCl (Cymbalta -) 60 mg PO DAILY [facility] Last Admin: 01/23/18 11:04 Dose: 60 mg Enoxaparin Sodium (Lovenox -) 80 mg SQ BID [facility] Last Admin: 01/25/18 09:51 Dose: 80 mg Folic Acid (Folic Acid -) 1 mg PO DAILY [facility] Last Admin: 01/25/18 09:51 Dose: 1 mg Furosemide (Lasix Injection -) 60 mg IVPUSH BID@0600,1400 [facility] Last Admin: 01/25/18 13:56 Dose: 20 mg Piperacillin Sod/Tazobactam (Sod 3.375 gm/ Dextrose) 50 mls @ 100 mls/hr IVPB Q8H-IV [facility] PRN Reason: Protocol Last Admin: 01/25/18 09:52 Dose: 100 mls/hr Insulin Aspart (Novolog Vial Sliding Scale -) 1 vial SQ ACHS [facility] PRN Reason: Protocol Last Admin: 01/25/18 11:35 Dose: Not Given Insulin Detemir (Levemir Vial) 25 units SQ AM [facility] Last Admin: 01/25/18 06:29 Dose: 25 units Insulin Detemir (Levemir Vial) 15 units SQ HS [facility] Last Admin: 01/24/18 21:55 Dose: 15 units Lactulose (Cephulac (Oral Use)) 20 gm PO TID [facility] Last Admin: 01/25/18 13:25 Dose: 20 gm Levothyroxine Sodium 125 mcg/ (Levothyroxine Sodium 50 mcg) 175 mcg PO DAILY@ 0700 [facility] Last Admin: 01/25/18 06:25 Dose: 175 mcg Methylnaltrexone [place] (Relistor -) 12 mg SQ DAILY [facility] Last Admin: 01/25/18 09:52 Dose: 12 mg Metoclopramide HCl (Reglan -) 5 mg PO TIDAC [facility] Last Admin: 01/25/18 11:35 Dose: 5 mg Montelukast Sodium (Singulair -) 10 mg PO HS [facility] Last Admin: 01/24/18 21:56 Dose: 10 mg Pancrelipase (Creon Dr 36,000 Units Capsule) 1 cap PO TIDCM [facility] Last Admin: 01/25/18 12:27 Dose: 1 cap Pantoprazole Sodium (Protonix -) 40 mg PO BID [facility] Last Admin: 01/23/18 11:03 Dose: 40 mg Polyethylene Glycol (Miralax (For Daily Use) -) 17 gm PO BID [facility] Last Admin: 01/25/18 09:52 Dose: 17 gm Potassium Chloride (K-Dur -) 40 meq PO ONCE ONE Stop: 01/25/18 22:01 Rifaximin (Xifaxan -) 550 mg PO TID [facility] Stop: 02/02/18 14:01 Last Admin: 01/25/18 13:25 Dose: 550 mg Sodium Chloride ([place] Nasal [place] -) 2 spray NS Q8H PRN PRN Reason: NASAL CONGESTION Thiamine HCl (Vitamin B1 Injection -) 200 mg IVPB Q8H-IV [facility] Stop: 01/26/18 19:44 Last Admin: 01/25/18 10:32 Dose: 200 mg 83 year old gentleman with PMhx of CHF, AFib on coumadin, CAD, Hypertension, HLD , IDDM who presented with confusion and weakness and found to have intra- abdominal fluid collection with suspsion of abcess with THERON. #THERON in setting of suspected sepsis/intra-abdominal collection #CHF with fluid overload #Intraadbominal collection #Hyperkalemia #Hyponatremia (now resolved) Renal function improved and stable will increase Lasix to 60mg IV BID as CXR shows persistent congestion continue Abx for Abd collection will give additional KCL this evening, trend K and Mg daily Keshav Werner DO
--- NOTE | 2018-01-25 14:30 | PN ---
Progress Note, Physician History of Present Illness: Awake but confused No complaints offered Afebrile - Current Medication List Current Medications: Active Medications Al Hydroxide/Mg Hydroxide (Mylanta Oral Suspension -) 30 ml PO Q6H PRN PRN Reason: DYSPEPSIA Last Admin: 01/19/18 14:44 Dose: 30 ml Albuterol Sulfate (Ventolin 0.083% Nebulizer Soln -) 1 amp NEB Q4H PRN PRN Reason: SHORT OF BREATH/WHEEZING Last Admin: 01/23/18 23:39 Dose: 1 amp Carvedilol (Coreg -) 6.25 mg PO BID [facility] Last Admin: 01/25/18 09:51 Dose: 6.25 mg Docusate Sodium (Colace -) 100 mg PO DAILY [facility] Last Admin: 01/25/18 09:51 Dose: 100 mg Duloxetine HCl (Cymbalta -) 60 mg PO DAILY [facility] Last Admin: 01/23/18 11:04 Dose: 60 mg Enoxaparin Sodium (Lovenox -) 80 mg SQ BID [facility] Last Admin: 01/25/18 09:51 Dose: 80 mg Folic Acid (Folic Acid -) 1 mg PO DAILY [facility] Last Admin: 01/25/18 09:51 Dose: 1 mg Furosemide (Lasix Injection -) 60 mg IVPUSH BID@0600,1400 [facility] Last Admin: 01/25/18 13:56 Dose: 20 mg Piperacillin Sod/Tazobactam (Sod 3.375 gm/ Dextrose) 50 mls @ 100 mls/hr IVPB Q8H-IV [facility] PRN Reason: Protocol Last Admin: 01/25/18 09:52 Dose: 100 mls/hr Insulin Aspart (Novolog Vial Sliding Scale -) 1 vial SQ ACHS [facility] PRN Reason: Protocol Last Admin: 01/25/18 11:35 Dose: Not Given Insulin Detemir (Levemir Vial) 25 units SQ AM [facility] Last Admin: 01/25/18 06:29 Dose: 25 units Insulin Detemir (Levemir Vial) 15 units SQ HS [facility] Last Admin: 01/24/18 21:55 Dose: 15 units Lactulose (Cephulac (Oral Use)) 20 gm PO TID [facility] Last Admin: 01/25/18 13:25 Dose: 20 gm Levothyroxine Sodium 125 mcg/ (Levothyroxine Sodium 50 mcg) 175 mcg PO DAILY@ 0700 [facility] Last Admin: 01/25/18 06:25 Dose: 175 mcg Methylnaltrexone [place] (Relistor -) 12 mg SQ DAILY [facility] Last Admin: 01/25/18 09:52 Dose: 12 mg Metoclopramide HCl (Reglan -) 5 mg PO TIDAC [facility] Last Admin: 01/25/18 11:35 Dose: 5 mg Montelukast Sodium (Singulair -) 10 mg PO HS [facility] Last Admin: 01/24/18 21:56 Dose: 10 mg Pancrelipase (Creon Dr 36,000 Units Capsule) 1 cap PO TIDCM [facility] Last Admin: 01/25/18 12:27 Dose: 1 cap Pantoprazole Sodium (Protonix -) 40 mg PO BID [facility] Last Admin: 01/23/18 11:03 Dose: 40 mg Polyethylene Glycol (Miralax (For Daily Use) -) 17 gm PO BID [facility] Last Admin: 01/25/18 09:52 Dose: 17 gm Potassium Chloride (K-Dur -) 40 meq PO ONCE ONE Stop: 01/25/18 22:01 Rifaximin (Xifaxan -) 550 mg PO TID [facility] Stop: 02/02/18 14:01 Last Admin: 01/25/18 13:25 Dose: 550 mg Sodium Chloride ([place] Nasal [place] -) 2 spray NS Q8H PRN PRN Reason: NASAL CONGESTION Thiamine HCl (Vitamin B1 Injection -) 200 mg IVPB Q8H-IV [facility] Stop: 01/26/18 19:44 Last Admin: 01/25/18 10:32 Dose: 200 mg - Objective Vital Signs: Vital Signs Temperature 98.7 F 01/25/18 13:52 Pulse Rate 63 01/25/18 13:52 Respiratory Rate 12 01/25/18 13:52 Blood Pressure 136/58 01/25/18 13:52 O2 Sat by Pulse Oximetry (%) 98 01/24/18 21:00 Constitutional: Yes: No Distress Eyes: Yes: Conjunctiva Clear Cardiovascular: Yes: Regular Rate and Rhythm, S1, S2 Respiratory: Yes: Diminished Gastrointestinal: Yes: Normal Bowel Sounds, Soft, Other (distended). No: Tenderness Edema: Yes Labs: CBC, BMP 01/25/18 07:07 01/25/18 07:07 INR, PTT INR 1.51 (0.82-1.09) H 01/25/18 07:07 Assessment/Plan Abdominal fluid collection Fever- improved Confusion Hx chronically infected L LE hardware Continue empiric zosyn
[2018-01-25] MEDS ORDERED: POTASSIUM CHLORIDE TABS 20 MEQ TABLET.ER (FP) PO ONE (22:00)
[2018-01-25] MEDS: MONTELUKAST NA 10 MG TABLET PO SCH (22:42)
[2018-01-26 00:15] LABS: HBSAG SCREEN Negative (Negative); HEP A AB, IGM Negative (Negative); HEP B CORE AB, TOT Negative (Negative)
[2018-01-26] MEDS ORDERED: PIPERACILLIN/TAZOBACTAM 3.375 GM VIAL IVPB ONE ×3 (01:33→17:30)
[2018-01-26] MEDS ORDERED: DEXTROSE 5%-WATER - 50 ML IVPB ONE ×3 (01:34→17:30)
[2018-01-26] MEDS: PIPERACILLIN/TAZOB 3.375 GM 3.375 GM in DEXTROSE 5%-WATER - 50 ML IVPB SCH ×3 (01:48→17:34)
[2018-01-26] MEDS: THIAMINE HCL 200 MG/2 ML VIAL IVPB SCH ×3 (01:48→17:34)
[2018-01-26] MEDS: ALBUTEROL SO4 0.083% IH SOL 2.5 MG/3 ML VIAL.NEB. NEB PRN ×2 (03:35→20:40)
[2018-01-26] MEDS: MAG HYDROX/AL HYDROX/SIMETH 30 ML UNIT-DOSE CUP PO PRN (03:36)
[2018-01-26] MEDS ORDERED: LEVOTHYROXINE NA 125 MCG TABLET (FP) ONE (06:07)
[2018-01-26] MEDS ORDERED: LEVOTHYROXINE NA 50 MCG TABLET (FP) ONE (06:07)
[2018-01-26] MEDS ORDERED: PT OWN MED DRAWER 7, Y5N ONE ×2 (06:08→09:01)
[2018-01-26] MEDS: INSULIN SLIDING SCALE (NOVOLOG) 1 VIAL SQ SCH ×4 (06:09→21:50)
[2018-01-26] MEDS: LEVOTHYROXINE 125 MCG, LEVOTHYROXINE 50 MCG PO SCH (06:09)
[2018-01-26] MEDS: METOCLOPRAMIDE HCL 10 MG TABLET (FP) PO SCH ×3 (06:09→17:26)
[2018-01-26] MEDS: FUROSEMIDE 40 MG/4 ML INJECTABLE VIAL IVPUSH SCH ×2 (06:10→14:16)
[2018-01-26] MEDS: INSULIN (LEVEMIR) 100 UNITS/ML UNITS SQ SCH ×2 (06:10→21:49)
[2018-01-26] MEDS: RIFAXIMIN 550 MG TABLET (UD) PO SCH ×2 (06:10→14:16)
[2018-01-26] MEDS: LACTULOSE 20 GM/30 ML UDC (FOR ORAL USE ONLY) PO SCH ×3 (06:10→22:01)
[2018-01-26] MEDS ORDERED: INSULIN (NOVOLOG) ASPART 100 UNITS/ML 10ML VIAL ONE (06:46)
[2018-01-26 07:48] LABS: ALBUMIN 2.5 g/dl (3.4-5.0); ANION GAP 9 (8-16); BLOOD UREA NITROGEN 21 mg/dL (7-18); CALCIUM 8.2 mg/dL (8.5-10.1); CHLORIDE 96 mmol/L (98-107); CO2 32 mmol/L (21-32); GLUCOSE,RANDOM 159 mg/dL (74-106); MAGNESIUM 1.7 mg/dL (1.8-2.4); SGOT/AST 23 U/L (15-37); SGPT/ALT 101 U/L (12-78); SODIUM 137 mmol/L (136-145)
[2018-01-26 07:51] LABS: ALK PHOS 304 U/L (45-117); TOT PROT 6.7 g/dl (6.4-8.2)
[2018-01-26 07:53] LABS: HEMATOCRIT 30.8 % (35.4-49); HEMOGLOBIN 10.1 GM/dL (11.7-16.9); MCH 27.6 pg (25.7-33.7); MCHC 32.7 g/dl (32.0-35.9); MEAN CELL VOLUME 84.6 fl (80-96); MEAN PLT VOLUME 9.2 fl (7.5-11.1); PLATELET COUNT 220 K/MM3 (134-434); RBC 3.64 M/mm3 (4.00-5.60); RDW 17.3 % (11.9-15.9); WHITE BLOOD COUNT 9.4 K/mm3 (4.0-10.0)
--- NOTE | 2018-01-26 09:20 | PN ---
Progress Note, Physician History of Present Illness: weak today - Current Medication List Current Medications: Active Medications Al Hydroxide/Mg Hydroxide (Mylanta Oral Suspension -) 30 ml PO Q6H PRN PRN Reason: DYSPEPSIA Last Admin: 01/26/18 03:36 Dose: 30 ml Albuterol Sulfate (Ventolin 0.083% Nebulizer Soln -) 1 amp NEB Q4H PRN PRN Reason: SHORT OF BREATH/WHEEZING Last Admin: 01/26/18 03:35 Dose: 1 amp Carvedilol (Coreg -) 6.25 mg PO BID [facility] Last Admin: 01/25/18 22:43 Dose: 6.25 mg Docusate Sodium (Colace -) 100 mg PO DAILY [facility] Last Admin: 01/25/18 09:51 Dose: 100 mg Duloxetine HCl (Cymbalta -) 60 mg PO DAILY [facility] Last Admin: 01/23/18 11:04 Dose: 60 mg Enoxaparin Sodium (Lovenox -) 80 mg SQ BID [facility] Last Admin: 01/25/18 22:42 Dose: 80 mg Folic Acid (Folic Acid -) 1 mg PO DAILY [facility] Last Admin: 01/25/18 09:51 Dose: 1 mg Furosemide (Lasix Injection -) 60 mg IVPUSH BID@0600,1400 [facility] Last Admin: 01/26/18 06:10 Dose: 60 mg Piperacillin Sod/Tazobactam (Sod 3.375 gm/ Dextrose) 50 mls @ 100 mls/hr IVPB Q8H-IV MANAN PRN Reason: Protocol Last Admin: 01/26/18 01:48 Dose: 100 mls/hr Insulin Aspart (Novolog Vial Sliding Scale -) 1 vial SQ ACHS ON [facility] PRN Reason: Protocol Last Admin: 01/26/18 06:09 Dose: Not Given Insulin Detemir (Levemir Vial) 25 units SQ AM [facility] Last Admin: 01/26/18 06:10 Dose: 25 units Insulin Detemir (Levemir Vial) 15 units SQ HS [facility] Last Admin: 01/25/18 22:41 Dose: 15 units Lactulose (Cephulac (Oral Use)) 20 gm PO TID ON [facility] Last Admin: 01/26/18 06:10 Dose: 20 gm Levothyroxine Sodium 125 mcg/ (Levothyroxine Sodium 50 mcg) 175 mcg PO DAILY@ 0700 [facility] Last Admin: 01/26/18 06:09 Dose: 175 mcg Methylnaltrexone [place] (Relistor -) 12 mg SQ DAILY [facility] Last Admin: 01/25/18 09:52 Dose: 12 mg Metoclopramide HCl (Reglan -) 5 mg PO TIDAC [facility] Last Admin: 01/26/18 06:09 Dose: 5 mg Montelukast Sodium (Singulair -) 10 mg PO HS [facility] Last Admin: 01/25/18 22:42 Dose: 10 mg Pancrelipase (Creon Dr 36,000 Units Capsule) 1 cap PO TIDCM [facility] Last Admin: 01/25/18 17:13 Dose: 1 cap Pantoprazole Sodium (Protonix -) 40 mg PO BID [facility] Last Admin: 01/23/18 11:03 Dose: 40 mg Polyethylene Glycol (Miralax (For Daily Use) -) 17 gm PO BID [facility] Last Admin: 01/25/18 22:44 Dose: 17 gm Rifaximin (Xifaxan -) 550 mg PO TID [facility] Stop: 02/02/18 14:01 Last Admin: 01/26/18 06:10 Dose: 550 mg Sodium Chloride ([place] Nasal [place] -) 2 spray NS Q8H PRN PRN Reason: NASAL CONGESTION Thiamine HCl (Vitamin B1 Injection -) 200 mg IVPB Q8H-IV ON [facility] OF [facility] Stop: 01/26/18 19:44 Last Admin: 01/26/18 01:48 Dose: 200 mg - Objective Vital Signs: Vital Signs Temperature 98.7 F 01/26/18 06:00 Pulse Rate 69 01/26/18 06:00 Respiratory Rate 20 01/26/18 06:00 Blood Pressure 113/63 01/26/18 06:00 O2 Sat by Pulse Oximetry (%) 98 01/25/18 21:00 Cardiovascular: Yes: S1, S2 Respiratory: Yes: Regular, CTA Bilaterally, On Nasal O2 Gastrointestinal: Yes: Normal Bowel Sounds, Soft. No: Tenderness Labs: CBC, BMP 01/26/18 06:00 01/26/18 06:00 INR, PTT INR 1.51 (0.82-1.09) H 01/25/18 07:07 Problem List - Problems (1) Abdominal fluid collection Code(s): R18.8 - OTHER ASCITES (2) Change in mental status Code(s): R41.82 - ALTERED MENTAL STATUS, UNSPECIFIED Qualifiers: Altered mental status type: unspecified Qualified Code(s): R41.82 - Altered mental status, unspecified (3) Atrial fibrillation Code(s): I48.91 - UNSPECIFIED ATRIAL FIBRILLATION Qualifiers: Atrial fibrillation type: paroxysmal Qualified Code(s): I48.0 - Paroxysmal atrial fibrillation (4) CAD (coronary artery disease) Code(s): I25.10 - ATHSCL HEART DISEASE OF [place] CORONARY ARTERY W/O ANG PCTRS Qualifiers: Coronary Disease-Associated Artery/Lesion type: unspecified vessel or lesion type [place] vs. transplanted heart: [place] heart Associated angina: angina presence unspecified Qualified Code(s): I25.10 - Atherosclerotic heart disease of [place] coronary artery without angina pectoris (5) Diabetes Code(s): E11.9 - TYPE 2 DIABETES MELLITUS WITHOUT COMPLICATIONS Qualifiers: Diabetes mellitus type: type 2 Diabetes mellitus complication detail: with other neurological complication Assessment/Plan - Problems (1) Abdominal fluid collection Assessment/Plan: -seen by Surgery -minimal, no invasive intervention indicated at this time -will d/w IR--d/w dr dasilva Code(s): R18.8 - OTHER ASCITES (2) THERON (acute kidney injury) Assessment/Plan: -nephrology consult -monitor trend -improving Code(s): N17.9 - ACUTE KIDNEY FAILURE, UNSPECIFIED (3) CAD (coronary artery disease) Assessment/Plan: -statin -cardiology consult appreciated Code(s): I25.10 - ATHSCL HEART DISEASE OF [place] CORONARY ARTERY W/O ANG PCTRS Qualifiers: Coronary Disease-Associated Artery/Lesion type: unspecified vessel or lesion type [place] vs. transplanted heart: [place] heart Associated angina: angina presence unspecified Qualified Code(s): I25.10 - Atherosclerotic heart disease of [place] coronary artery without angina pectoris (4) CHF (congestive heart failure) Assessment/Plan: -Furosemide 40 mg IVP now, then daily -I&O's -bronchodilators -seen by cardiology and pulmonary Code(s): I50.9 - HEART FAILURE, UNSPECIFIED Qualifiers: Heart failure type: systolic Heart failure chronicity: acute on chronic Qualified Code(s): I50.23 - Acute on chronic systolic (congestive) heart failure (5) Paroxysmal atrial fibrillation Assessment/Plan: -off Warfarin -start lovenox -Daily INR's Code(s): I48.0 - PAROXYSMAL ATRIAL FIBRILLATION (6) Aspiration into respiratory tract Assessment/Plan: -speech therapy -d[place] [place] Code(s): T17.908A - UNSP FB IN RESP TRACT, PART UNSP CAUSING OTH INJURY, INIT
[2018-01-26] MEDS ORDERED: MAGNESIUM 4GM/H20 - 4 GM/100 ML IVPB IVPB ONE (10:02)
[2018-01-26] MEDS: LIPASE/PROTEASE/AMYLASE 36,000 UNIT CAPSULE PO SCH ×3 (10:05→17:26)
[2018-01-26] MEDS: DULoxetine HCL 30 MG CAPSULE.DR (FP) PO SCH (10:10)
[2018-01-26] MEDS: FOLIC ACID 1 MG TABLET (FP) PO SCH (10:10)
[2018-01-26] MEDS: DOCUSATE SODIUM 100 MG CAPSULE (FP) PO SCH (10:10)
[2018-01-26] MEDS: POLYETHYLENE GLYCOL 3350 119 GM BTL PO SCH ×2 (10:11→21:51)
[2018-01-26] MEDS: ENOXAPARIN NA (PORCINE) 80 MG/0.8 ML DISP.SYRIN SQ SCH ×2 (10:17→21:51)
[2018-01-26] MEDS: CARVEDILOL 6.25 MG TABLET (FP) PO SCH ×2 (10:18→21:49)
[2018-01-26] MEDS: Methylnaltrexone Bromide 12 MG/0.6 ML KIT SQ SCH (11:17)
--- NOTE | 2018-01-26 11:23 | PN ---
Progress Note, Physician History of Present Illness: pulmonary alert,feeling better,less congested,-abd pain - Current Medication List Current Medications: Active Medications Al Hydroxide/Mg Hydroxide (Mylanta Oral Suspension -) 30 ml PO Q6H PRN PRN Reason: DYSPEPSIA Last Admin: 01/26/18 03:36 Dose: 30 ml Albuterol Sulfate (Ventolin 0.083% Nebulizer Soln -) 1 amp NEB Q4H PRN PRN Reason: SHORT OF BREATH/WHEEZING Last Admin: 01/26/18 03:35 Dose: 1 amp Carvedilol (Coreg -) 6.25 mg PO BID [facility] Last Admin: 01/26/18 10:18 Dose: 6.25 mg Docusate Sodium (Colace -) 100 mg PO DAILY [facility] Last Admin: 01/26/18 10:10 Dose: Not Given Duloxetine HCl (Cymbalta -) 60 mg PO DAILY [facility] Last Admin: 01/26/18 10:10 Dose: Not Given Enoxaparin Sodium (Lovenox -) 80 mg SQ BID [facility] Last Admin: 01/26/18 10:17 Dose: 80 mg Folic Acid (Folic Acid -) 1 mg PO DAILY [facility] Last Admin: 01/26/18 10:10 Dose: Not Given Furosemide (Lasix Injection -) 60 mg IVPUSH BID@0600,1400 [facility] Last Admin: 01/26/18 06:10 Dose: 60 mg Piperacillin Sod/Tazobactam (Sod 3.375 gm/ Dextrose) 50 mls @ 100 mls/hr IVPB Q8H-IV MANAN PRN Reason: Protocol Last Admin: 01/26/18 10:18 Dose: 100 mls/hr Magnesium Sulfate (Magnesium 4gm/H20 -) 4 gm in 100 mls @ 33.333 mls/hr IVPB ONCE ONE Stop: 01/26/18 13:01 Last Admin: 01/26/18 11:16 Dose: 33.333 mls/hr Insulin Aspart (Novolog Vial Sliding Scale -) 1 vial SQ ACHS [facility] PRN Reason: Protocol Last Admin: 01/26/18 06:09 Dose: Not Given Insulin Detemir (Levemir Vial) 25 units SQ AM [facility] Last Admin: 01/26/18 06:10 Dose: 25 units Insulin Detemir (Levemir Vial) 15 units SQ HS [facility] Last Admin: 01/25/18 22:41 Dose: 15 units Lactulose (Cephulac (Oral Use)) 20 gm PO TID [facility] Last Admin: 01/26/18 06:10 Dose: 20 gm Levothyroxine Sodium 125 mcg/ (Levothyroxine Sodium 50 mcg) 175 mcg PO DAILY@ 0700 [facility] Last Admin: 01/26/18 06:09 Dose: 175 mcg Methylnaltrexone [place] (Relistor -) 12 mg SQ DAILY [facility] Last Admin: 01/26/18 11:17 Dose: 12 mg Metoclopramide HCl (Reglan -) 5 mg PO TIDAC [facility] Last Admin: 01/26/18 06:09 Dose: 5 mg Montelukast Sodium (Singulair -) 10 mg PO [facility] Last Admin: 01/25/18 22:42 Dose: 10 mg Pancrelipase (Creon Dr 36,000 Units Capsule) 1 cap PO TIDCM [facility] Last Admin: 01/26/18 10:05 Dose: Not Given Pantoprazole Sodium (Protonix -) 40 mg PO BID [facility] Last Admin: 01/23/18 11:03 Dose: 40 mg Polyethylene Glycol (Miralax (For Daily Use) -) 17 gm PO BID [facility] Last Admin: 01/26/18 10:11 Dose: Not Given Rifaximin (Xifaxan -) 550 mg PO TID [facility] Stop: 02/02/18 14:01 Last Admin: 01/26/18 06:10 Dose: 550 mg Sodium Chloride ([place] Nasal [place] -) 2 spray NS Q8H PRN PRN Reason: NASAL CONGESTION Thiamine HCl (Vitamin B1 Injection -) 200 mg IVPB Q8H-IV [facility] Stop: 01/26/18 19:44 Last Admin: 01/26/18 10:17 Dose: 200 mg - Objective Vital Signs: Vital Signs Temperature 98.7 F 01/26/18 06:00 Pulse Rate 69 01/26/18 06:00 Respiratory Rate 20 01/26/18 06:00 Blood Pressure 113/63 01/26/18 06:00 O2 Sat by Pulse Oximetry (%) 98 01/25/18 21:00 Constitutional: Yes: Well Nourished, Calm Eyes: Yes: WNL HENT: Yes: WNL Neck: Yes: WNL Cardiovascular: Yes: Pulse Irregular, S1, S2 Respiratory: Yes: Rhonchi (few scattered rhonchi) Gastrointestinal: Yes: Normal Bowel Sounds, Soft Extremities: Yes: WNL Edema: Yes Labs: CBC, BMP 01/26/18 06:00 01/26/18 06:00 INR, PTT INR 1.51 (0.82-1.09) H 01/25/18 07:07 Assessment/Plan Problem List - Problems (1) Acute on chronic systolic (congestive) heart failure Code(s): I50.23 - ACUTE ON CHRONIC SYSTOLIC (CONGESTIVE) HEART FAILURE (2) Abdominal fluid collection Code(s): R18.8 - OTHER ASCITES (3) Change in mental status Code(s): R41.82 - ALTERED MENTAL STATUS, UNSPECIFIED Qualifiers: Altered mental status type: unspecified Qualified Code(s): R41.82 - Altered mental status, unspecified (4) CAD (coronary artery disease) Code(s): I25.10 - ATHSCL HEART DISEASE OF [place] CORONARY ARTERY W/O ANG PCTRS Qualifiers: Coronary Disease-Associated Artery/Lesion type: unspecified vessel or lesion type [place] vs. transplanted heart: [place] heart Associated angina: angina presence unspecified Qualified Code(s): I25.10 - Atherosclerotic heart disease of [place] coronary artery without angina pectoris (5) Diabetes Code(s): E11.9 - TYPE 2 DIABETES MELLITUS WITHOUT COMPLICATIONS Qualifiers: Diabetes mellitus type: type 2 Diabetes mellitus complication detail: with other neurological complication (6) Hyponatremia Code(s): E87.1 - HYPO-OSMOLALITY AND HYPONATREMIA improved (7) Atrial fibrillation Code(s): I48.91 - UNSPECIFIED ATRIAL FIBRILLATION Qualifiers: Atrial fibrillation type: paroxysmal Qualified Code(s): I48.0 - Paroxysmal atrial fibrillation Assessment/Plan Intra-abdominal Fluid Collection r/o Sepsis Altered Mental Status Hyponatremia Acute on Chronic Systolic Heart Failure Atrial Fibrillation CAD HTN DM Hypothyroidism h/o Diverticulitis Elevated LFTs Elevated ammonia level - antibiotics per ID - lasix - monitor urine output, creatinine - monitor lytes,LFTs - inhaled bronchodilators standing and PRN - O2 to keep SpO2 >90% - rate controlled - f/u chest x-rays - lactulose - monitor ammonia level DR SPRINGER
--- NOTE | 2018-01-26 11:35 | PN ---
Progress Note (short form) - Note Progress Note: Renal follow up for THERON on CKD and Hyponatremia Pt seen and examined at the bedside awake and alert denies any sob, chest pain, abd pain no N/V/D Vital Signs Temperature 98.7 F 01/26/18 06:00 Pulse Rate 69 01/26/18 06:00 Respiratory Rate 20 01/26/18 06:00 Blood Pressure 113/63 01/26/18 06:00 O2 Sat by Pulse Oximetry (%) 98 01/25/18 21:00 Intake & Output 01/23/18 01/24/18 01/25/18 01/26/18 23:59 23:59 23:59 23:59 Intake Total 4464 190 5489 140 Output Total 3350 2900 3700 650 Balance -1990 -2370 -2600 -510 Weight 97.976 kg 87.09 kg 97.432 kg 94.858 kg NAD awake and alert MMM no JVD irregular dec BS lung bases soft NT/ND Trace LE edema CBC, BMP 01/26/18 06:00 01/26/18 06:00 Current Medications Al Hydroxide/Mg Hydroxide (Mylanta Oral Suspension -) 30 ml PO Q6H PRN PRN Reason: DYSPEPSIA Last Admin: 01/26/18 03:36 Dose: 30 ml Albuterol Sulfate (Ventolin 0.083% Nebulizer Soln -) 1 amp NEB Q4H PRN PRN Reason: SHORT OF BREATH/WHEEZING Last Admin: 01/26/18 03:35 Dose: 1 amp Carvedilol (Coreg -) 6.25 mg PO BID [facility] Last Admin: 01/26/18 10:18 Dose: 6.25 mg Docusate Sodium (Colace -) 100 mg PO DAILY [facility] Last Admin: 01/26/18 10:10 Dose: Not Given Duloxetine HCl (Cymbalta -) 60 mg PO DAILY [facility] Last Admin: 01/26/18 10:10 Dose: Not Given Enoxaparin Sodium (Lovenox -) 80 mg SQ BID [facility] Last Admin: 01/26/18 10:17 Dose: 80 mg Folic Acid (Folic Acid -) 1 mg PO DAILY [facility] Last Admin: 01/26/18 10:10 Dose: Not Given Furosemide (Lasix Injection -) 60 mg IVPUSH BID@0600,1400 [facility] Last Admin: 01/26/18 06:10 Dose: 60 mg Piperacillin Sod/Tazobactam (Sod 3.375 gm/ Dextrose) 50 mls @ 100 mls/hr IVPB Q8H-IV MANAN PRN Reason: Protocol Last Admin: 01/26/18 10:18 Dose: 100 mls/hr Magnesium Sulfate (Magnesium 4gm/H20 -) 4 gm in 100 mls @ 33.333 mls/hr IVPB ONCE ONE Stop: 01/26/18 13:01 Last Admin: 01/26/18 11:16 Dose: 33.333 mls/hr Insulin Aspart (Novolog Vial Sliding Scale -) 1 vial SQ ACHS [facility] PRN Reason: Protocol Last Admin: 01/26/18 06:09 Dose: Not Given Insulin Detemir (Levemir Vial) 25 units SQ AM [facility] Last Admin: 01/26/18 06:10 Dose: 25 units Insulin Detemir (Levemir Vial) 15 units SQ HS [facility] Last Admin: 01/25/18 22:41 Dose: 15 units Lactulose (Cephulac (Oral Use)) 20 gm PO TID [facility] Last Admin: 01/26/18 06:10 Dose: 20 gm Levothyroxine Sodium 125 mcg/ (Levothyroxine Sodium 50 mcg) 175 mcg PO DAILY@ 0700 [facility] Last Admin: 01/26/18 06:09 Dose: 175 mcg Methylnaltrexone [place] (Relistor -) 12 mg SQ DAILY [facility] Last Admin: 01/26/18 11:17 Dose: 12 mg Metoclopramide HCl (Reglan -) 5 mg PO TIDAC [facility] Last Admin: 01/26/18 06:09 Dose: 5 mg Montelukast Sodium (Singulair -) 10 mg PO HS [facility] Last Admin: 01/25/18 22:42 Dose: 10 mg Pancrelipase (Creon Dr 36,000 Units Capsule) 1 cap PO TIDCM [facility] Last Admin: 01/26/18 10:05 Dose: Not Given Pantoprazole Sodium (Protonix -) 40 mg PO BID [facility] Last Admin: 01/23/18 11:03 Dose: 40 mg Polyethylene Glycol (Miralax (For Daily Use) -) 17 gm PO BID [facility] Last Admin: 01/26/18 10:11 Dose: Not Given Rifaximin (Xifaxan -) 550 mg PO TID [facility] Stop: 02/02/18 14:01 Last Admin: 01/26/18 06:10 Dose: 550 mg Sodium Chloride ([place]afael [place] Nasal [place] -) 2 spray NS Q8H PRN PRN Reason: NASAL CONGESTION Thiamine HCl (Vitamin B1 Injection -) 200 mg IVPB Q8H-IV MANAN Stop: 01/26/18 19:44 Last Admin: 01/26/18 10:17 Dose: 200 mg 83 year old gentleman with PMhx of CHF, AFib on coumadin, CAD, Hypertension, HLD , IDDM who presented with confusion and weakness and found to have intra- abdominal fluid collection with suspsion of abcess with THERON. #THERON in setting of suspected sepsis/intra-abdominal collection #CHF with fluid overload #Intraadbominal collection #Hyperkalemia #Hyponatremia (now resolved) Renal function stable at this time continue IV Lasix BID, trend daily weights, BUN/Cr and electrolytes low salt diet Continue Abx as per ID Keshav Werner DO
[2018-01-26] MEDS: MONTELUKAST NA 10 MG TABLET PO SCH (21:52)
[2018-01-26] MEDS: PANTOPRAZOLE 40 MG TABLET (FP) PO SCH (21:54)
[2018-01-27] MEDS ORDERED: PIPERACILLIN/TAZOBACTAM 3.375 GM VIAL IVPB ONE ×3 (01:45→17:03)
[2018-01-27] MEDS ORDERED: DEXTROSE 5%-WATER - 50 ML IVPB ONE ×3 (01:45→17:04)
[2018-01-27] MEDS: PIPERACILLIN/TAZOB 3.375 GM 3.375 GM in DEXTROSE 5%-WATER - 50 ML IVPB SCH ×3 (02:01→17:25)
[2018-01-27] MEDS ORDERED: LEVOTHYROXINE NA 50 MCG TABLET (FP) ONE (05:53)
[2018-01-27] MEDS ORDERED: LEVOTHYROXINE NA 125 MCG TABLET (FP) ONE (05:53)
[2018-01-27] MEDS: METOCLOPRAMIDE HCL 10 MG TABLET (FP) PO SCH ×3 (06:28→17:25)
[2018-01-27] MEDS: FUROSEMIDE 40 MG/4 ML INJECTABLE VIAL IVPUSH SCH ×2 (06:28→13:31)
[2018-01-27] MEDS: LACTULOSE 20 GM/30 ML UDC (FOR ORAL USE ONLY) PO SCH ×3 (06:28→21:37)
[2018-01-27] MEDS: LEVOTHYROXINE 125 MCG, LEVOTHYROXINE 50 MCG PO SCH (06:28)
[2018-01-27] MEDS: INSULIN SLIDING SCALE (NOVOLOG) 1 VIAL SQ SCH ×5 (06:28→21:38)
[2018-01-27] MEDS: INSULIN (LEVEMIR) 100 UNITS/ML UNITS SQ SCH ×2 (06:29→21:38)
[2018-01-27 08:47] LABS: ANION GAP 5 (8-16); BLOOD UREA NITROGEN 18 mg/dL (7-18); CALCIUM 8.3 mg/dL (8.5-10.1); CHLORIDE 97 mmol/L (98-107); CO2 34 mmol/L (21-32); CREATININE 1.1 mg/dL (0.7-1.3); GLUCOSE,RANDOM 164 mg/dL (74-106); MAGNESIUM 2.4 mg/dL (1.8-2.4); PHOSPHOROUS 2.6 mg/dL (2.5-4.9); POTASSIUM 3.6 mmol/L (3.5-5.1); SODIUM 136 mmol/L (136-145)
[2018-01-27] MEDS ORDERED: PT OWN MED DRAWER 7, Y5N ONE (09:10)
[2018-01-27] MEDS: PANTOPRAZOLE 40 MG TABLET (FP) PO SCH ×2 (09:14→21:37)
[2018-01-27] MEDS: DULoxetine HCL 30 MG CAPSULE.DR (FP) PO SCH (09:14)
[2018-01-27] MEDS: LIPASE/PROTEASE/AMYLASE 36,000 UNIT CAPSULE PO SCH ×3 (09:15→17:25)
[2018-01-27] MEDS: DOCUSATE SODIUM 100 MG CAPSULE (FP) PO SCH (09:15)
[2018-01-27] MEDS: CARVEDILOL 6.25 MG TABLET (FP) PO SCH ×2 (09:15→21:38)
[2018-01-27] MEDS: FOLIC ACID 1 MG TABLET (FP) PO SCH (09:15)
[2018-01-27] MEDS: ENOXAPARIN NA (PORCINE) 80 MG/0.8 ML DISP.SYRIN SQ SCH ×2 (09:15→21:37)
[2018-01-27] MEDS: Methylnaltrexone Bromide 12 MG/0.6 ML KIT SQ SCH (09:16)
[2018-01-27] MEDS: POLYETHYLENE GLYCOL 3350 119 GM BTL PO SCH ×2 (09:56→21:40)
--- NOTE | 2018-01-27 10:03 | PN ---
Progress Note, Physician History of Present Illness: sitting in chair - Current Medication List Current Medications: Active Medications Al Hydroxide/Mg Hydroxide (Mylanta Oral Suspension -) 30 ml PO Q6H PRN PRN Reason: DYSPEPSIA Last Admin: 01/26/18 03:36 Dose: 30 ml Albuterol Sulfate (Ventolin 0.083% Nebulizer Soln -) 1 amp NEB Q4H PRN PRN Reason: SHORT OF BREATH/WHEEZING Last Admin: 01/26/18 20:40 Dose: 1 amp Carvedilol (Coreg -) 6.25 mg PO BID [facility] Last Admin: 01/27/18 09:15 Dose: 6.25 mg Docusate Sodium (Colace -) 100 mg PO DAILY [facility] Last Admin: 01/27/18 09:15 Dose: 100 mg Duloxetine HCl (Cymbalta -) 60 mg PO DAILY [facility] Last Admin: 01/27/18 09:14 Dose: 60 mg Enoxaparin Sodium (Lovenox -) 80 mg SQ BID [facility] Last Admin: 01/27/18 09:15 Dose: 80 mg Folic Acid (Folic Acid -) 1 mg PO DAILY [facility] Last Admin: 01/27/18 09:15 Dose: 1 mg Furosemide (Lasix Injection -) 60 mg IVPUSH BID@0600,1400 [facility] Last Admin: 01/27/18 06:28 Dose: 60 mg Piperacillin Sod/Tazobactam (Sod 3.375 gm/ Dextrose) 50 mls @ 100 mls/hr IVPB Q8H-IV MANAN PRN Reason: Protocol Last Admin: 01/27/18 09:15 Dose: 100 mls/hr Insulin Aspart (Novolog Vial Sliding Scale -) 1 vial SQ ACHS [facility] PRN Reason: Protocol Last Admin: 01/27/18 06:28 Dose: Not Given Insulin Detemir (Levemir Vial) 25 units SQ AM [facility] Last Admin: 01/27/18 06:29 Dose: 25 units Insulin Detemir (Levemir Vial) 15 units SQ HS [facility] Last Admin: 01/26/18 21:49 Dose: 15 units Lactulose (Cephulac (Oral Use)) 20 gm PO TID [facility] Last Admin: 01/27/18 06:28 Dose: 20 gm Levothyroxine Sodium 125 mcg/ (Levothyroxine Sodium 50 mcg) 175 mcg PO DAILY@ 0700 [facility] Last Admin: 01/27/18 06:28 Dose: 175 mcg Methylnaltrexone [place] (Relistor -) 12 mg SQ DAILY [facility] Last Admin: 01/27/18 09:16 Dose: 12 mg Metoclopramide HCl (Reglan -) 5 mg PO TIDAC [facility] Last Admin: 01/27/18 06:28 Dose: 5 mg Montelukast Sodium (Singulair -) 10 mg PO HS [facility] Last Admin: 01/26/18 21:52 Dose: 10 mg Pancrelipase (Creon Dr 36,000 Units Capsule) 1 cap PO TIDCM [facility] Last Admin: 01/27/18 09:15 Dose: 1 cap Pantoprazole Sodium (Protonix -) 40 mg PO BID [facility] Last Admin: 01/27/18 09:14 Dose: 40 mg Polyethylene Glycol (Miralax (For Daily Use) -) 17 gm PO BID [facility] Last Admin: 01/27/18 09:56 Dose: 17 gm Sodium Chloride ([place] Nasal [place] -) 2 spray NS Q8H PRN PRN Reason: NASAL CONGESTION - Objective Vital Signs: Vital Signs Temperature 97.6 F 01/27/18 06:00 Pulse Rate 71 01/27/18 06:00 Respiratory Rate 20 01/27/18 06:00 Blood Pressure 118/76 01/27/18 06:00 O2 Sat by Pulse Oximetry (%) 99 01/26/18 21:00 Cardiovascular: Yes: S1, S2 Respiratory: Yes: Regular, CTA Bilaterally Gastrointestinal: Yes: Normal Bowel Sounds, Soft Labs: CBC, BMP 01/26/18 06:00 01/27/18 07:30 INR, PTT INR 1.51 (0.82-1.09) H 01/25/18 07:07 Problem List - Problems (1) Abdominal fluid collection Code(s): R18.8 - OTHER ASCITES (2) Change in mental status Code(s): R41.82 - ALTERED MENTAL STATUS, UNSPECIFIED Qualifiers: Altered mental status type: unspecified Qualified Code(s): R41.82 - Altered mental status, unspecified (3) Atrial fibrillation Code(s): I48.91 - UNSPECIFIED ATRIAL FIBRILLATION Qualifiers: Atrial fibrillation type: paroxysmal Qualified Code(s): I48.0 - Paroxysmal atrial fibrillation (4) CAD (coronary artery disease) Code(s): I25.10 - ATHSCL HEART DISEASE OF [place] CORONARY ARTERY W/O ANG PCTRS Qualifiers: Coronary Disease-Associated Artery/Lesion type: unspecified vessel or lesion type [place] vs. transplanted heart: [place] heart Associated angina: angina presence unspecified Qualified Code(s): I25.10 - Atherosclerotic heart disease of [place] coronary artery without angina pectoris (5) Diabetes Code(s): E11.9 - TYPE 2 DIABETES MELLITUS WITHOUT COMPLICATIONS Qualifiers: Diabetes mellitus type: type 2 Diabetes mellitus complication detail: with other neurological complication Assessment/Plan - Problems (1) Abdominal fluid collection Assessment/Plan: -seen by Surgery -minimal, no invasive intervention indicated at this time -will d/w IR--d/w dr dasilva Code(s): R18.8 - OTHER ASCITES (2) THERON (acute kidney injury) Assessment/Plan: -nephrology consult -monitor trend -improving Code(s): N17.9 - ACUTE KIDNEY FAILURE, UNSPECIFIED (3) CAD (coronary artery disease) Assessment/Plan: -statin -cardiology consult appreciated Code(s): I25.10 - ATHSCL HEART DISEASE OF [place] CORONARY ARTERY W/O ANG PCTRS Qualifiers: Coronary Disease-Associated Artery/Lesion type: unspecified vessel or lesion type [place] vs. transplanted heart: [place] heart Associated angina: angina presence unspecified Qualified Code(s): I25.10 - Atherosclerotic heart disease of [place] coronary artery without angina pectoris (4) CHF (congestive heart failure) Assessment/Plan: -Furosemide 40 mg IVP now, then daily -I&O's -bronchodilators -seen by cardiology and pulmonary Code(s): I50.9 - HEART FAILURE, UNSPECIFIED Qualifiers: Heart failure type: systolic Heart failure chronicity: acute on chronic Qualified Code(s): I50.23 - Acute on chronic systolic (congestive) heart failure (5) Paroxysmal atrial fibrillation Assessment/Plan: -off Warfarin -start lovenox -Daily INR's Code(s): I48.0 - PAROXYSMAL ATRIAL FIBRILLATION (6) Aspiration into respiratory tract Assessment/Plan: -speech therapy -d[place] as ordered [place] [place] Code(s): T17.908A - UNSP FB IN RESP TRACT, PART UNSP CAUSING OTH INJURY, INIT (7) Acute Respiratory Failure Assessment/Plan: -Bipap-Venti mask--o2
--- NOTE | 2018-01-27 12:43 | PN ---
Progress Note, Physician History of Present Illness: PULMONARY AWAKE,ALERT,COMFORTABLE,-RESP DISTRESS - Current Medication List Current Medications: Active Medications Al Hydroxide/Mg Hydroxide (Mylanta Oral Suspension -) 30 ml PO Q6H PRN PRN Reason: DYSPEPSIA Last Admin: 01/26/18 03:36 Dose: 30 ml Albuterol Sulfate (Ventolin 0.083% Nebulizer Soln -) 1 amp NEB Q4H PRN PRN Reason: SHORT OF BREATH/WHEEZING Last Admin: 01/26/18 20:40 Dose: 1 amp Carvedilol (Coreg -) 6.25 mg PO BID [facility] Last Admin: 01/27/18 09:15 Dose: 6.25 mg Docusate Sodium (Colace -) 100 mg PO DAILY [facility] Last Admin: 01/27/18 09:15 Dose: 100 mg Duloxetine HCl (Cymbalta -) 60 mg PO DAILY [facility] Last Admin: 01/27/18 09:14 Dose: 60 mg Enoxaparin Sodium (Lovenox -) 80 mg SQ BID [facility] Last Admin: 01/27/18 09:15 Dose: 80 mg Folic Acid (Folic Acid -) 1 mg PO DAILY [facility] Last Admin: 01/27/18 09:15 Dose: 1 mg Furosemide (Lasix Injection -) 60 mg IVPUSH BID@0600,1400 [facility] Last Admin: 01/27/18 06:28 Dose: 60 mg Piperacillin Sod/Tazobactam (Sod 3.375 gm/ Dextrose) 50 mls @ 100 mls/hr IVPB Q8H-IV MANAN PRN Reason: Protocol Last Admin: 01/27/18 09:15 Dose: 100 mls/hr Insulin Aspart (Novolog Vial Sliding Scale -) 1 vial SQ ACHS [facility] PRN Reason: Protocol Last Admin: 01/27/18 11:32 Dose: 2 units Insulin Detemir (Levemir Vial) 25 units SQ AM [facility] Last Admin: 01/27/18 06:29 Dose: 25 units Insulin Detemir (Levemir Vial) 15 units SQ HS [facility] Last Admin: 01/26/18 21:49 Dose: 15 units Lactulose (Cephulac (Oral Use)) 20 gm PO TID [facility] Last Admin: 01/27/18 06:28 Dose: 20 gm Levothyroxine Sodium 125 mcg/ (Levothyroxine Sodium 50 mcg) 175 mcg PO DAILY@ 0700 [facility] Last Admin: 01/27/18 06:28 Dose: 175 mcg Methylnaltrexone [place] (Relistor -) 12 mg SQ DAILY [facility] Last Admin: 01/27/18 09:16 Dose: 12 mg Metoclopramide HCl (Reglan -) 5 mg PO TIDAC [facility] Last Admin: 01/27/18 11:31 Dose: 5 mg Montelukast Sodium (Singulair -) 10 mg PO HS [facility] Last Admin: 01/26/18 21:52 Dose: 10 mg Pancrelipase (Creon Dr 36,000 Units Capsule) 1 cap PO TIDCM [facility] Last Admin: 01/27/18 11:31 Dose: 1 cap Pantoprazole Sodium (Protonix -) 40 mg PO BID [facility] Last Admin: 01/27/18 09:14 Dose: 40 mg Polyethylene Glycol (Miralax (For Daily Use) -) 17 gm PO BID [facility] Last Admin: 01/27/18 09:56 Dose: 17 gm Sodium Chloride ([place] Nasal [place] -) 2 spray NS Q8H PRN PRN Reason: NASAL CONGESTION - Objective Vital Signs: Vital Signs Temperature 97.6 F 01/27/18 10:00 Pulse Rate 71 01/27/18 10:00 Respiratory Rate 20 01/27/18 10:00 Blood Pressure 118/76 01/27/18 10:00 O2 Sat by Pulse Oximetry (%) 100 01/27/18 09:00 Constitutional: Yes: Well Nourished, Calm Eyes: Yes: WNL HENT: Yes: WNL Neck: Yes: WNL Cardiovascular: Yes: Pulse Irregular, S1, S2 Respiratory: Yes: Rales (FEW BIBASILAR RALES) Gastrointestinal: Yes: Normal Bowel Sounds, Soft Extremities: Yes: WNL Edema: No Labs: CBC, BMP 01/26/18 06:00 01/27/18 07:30 INR, PTT INR 1.51 (0.82-1.09) H 01/25/18 07:07 Assessment/Plan Problem List - Problems (1) Acute on chronic systolic (congestive) heart failure Code(s): I50.23 - ACUTE ON CHRONIC SYSTOLIC (CONGESTIVE) HEART FAILURE (2) Abdominal fluid collection Code(s): R18.8 - OTHER ASCITES (3) Change in mental status Code(s): R41.82 - ALTERED MENTAL STATUS, UNSPECIFIED Qualifiers: Altered mental status type: unspecified Qualified Code(s): R41.82 - Altered mental status, unspecified (4) CAD (coronary artery disease) Code(s): I25.10 - ATHSCL HEART DISEASE OF [place] CORONARY ARTERY W/O ANG PCTRS Qualifiers: Coronary Disease-Associated Artery/Lesion type: unspecified vessel or lesion type [place] vs. transplanted heart: [place] heart Associated angina: angina presence unspecified Qualified Code(s): I25.10 - Atherosclerotic heart disease of [place] coronary artery without angina pectoris (5) Diabetes Code(s): E11.9 - TYPE 2 DIABETES MELLITUS WITHOUT COMPLICATIONS Qualifiers: Diabetes mellitus type: type 2 Diabetes mellitus complication detail: with other neurological complication (6) Hyponatremia Code(s): E87.1 - HYPO-OSMOLALITY AND HYPONATREMIA improved (7) Atrial fibrillation Code(s): I48.91 - UNSPECIFIED ATRIAL FIBRILLATION Qualifiers: Atrial fibrillation type: paroxysmal Qualified Code(s): I48.0 - Paroxysmal atrial fibrillation Assessment/Plan Intra-abdominal Fluid Collection r/o Sepsis Altered Mental Status Hyponatremia Acute on Chronic Systolic Heart Failure Atrial Fibrillation CAD HTN DM Hypothyroidism h/o Diverticulitis Elevated LFTs Elevated ammonia level - antibiotics per ID - lasix iv - monitor urine output, creatinine - monitor lytes,LFTs - inhaled bronchodilators standing and PRN - O2 to keep SpO2 >90% - rate controlled - f/u chest x-rays - lactulose - monitor ammonia level DR SPRINGER
[2018-01-27] MEDS: ALBUTEROL SO4 0.083% IH SOL 2.5 MG/3 ML VIAL.NEB. NEB PRN (20:45)
[2018-01-27] MEDS: MONTELUKAST NA 10 MG TABLET PO SCH (21:37)
[2018-01-28] MEDS ORDERED: diphenhydrAMINE HCL 25 MG CAPSULE (FP) PO ONE (00:21)
[2018-01-28] MEDS ORDERED: PIPERACILLIN/TAZOBACTAM 3.375 GM VIAL IVPB ONE ×2 (01:13→10:08)
[2018-01-28] MEDS ORDERED: DEXTROSE 5%-WATER - 50 ML IVPB ONE ×2 (01:13→10:08)
[2018-01-28] MEDS: PIPERACILLIN/TAZOB 3.375 GM 3.375 GM in DEXTROSE 5%-WATER - 50 ML IVPB SCH ×2 (01:51→10:43)
[2018-01-28] MEDS ORDERED: LEVOTHYROXINE NA 50 MCG TABLET (FP) ONE (05:52)
[2018-01-28] MEDS ORDERED: LEVOTHYROXINE NA 125 MCG TABLET (FP) ONE (05:52)
[2018-01-28] MEDS: LACTULOSE 20 GM/30 ML UDC (FOR ORAL USE ONLY) PO SCH ×2 (06:38→14:24)
[2018-01-28] MEDS: INSULIN (LEVEMIR) 100 UNITS/ML UNITS SQ SCH (06:38)
[2018-01-28] MEDS: INSULIN SLIDING SCALE (NOVOLOG) 1 VIAL SQ SCH ×2 (06:39→11:34)
[2018-01-28] MEDS: LEVOTHYROXINE 125 MCG, LEVOTHYROXINE 50 MCG PO SCH (06:39)
[2018-01-28] MEDS: METOCLOPRAMIDE HCL 10 MG TABLET (FP) PO SCH ×2 (06:39→10:45)
[2018-01-28] MEDS: FUROSEMIDE 40 MG/4 ML INJECTABLE VIAL IVPUSH SCH ×2 (07:12→14:24)
[2018-01-28] MEDS: ALBUTEROL SO4 0.083% IH SOL 2.5 MG/3 ML VIAL.NEB. NEB PRN (07:34)
[2018-01-28] MEDS ORDERED: PT OWN MED DRAWER 7, Y5N ONE (10:08)
[2018-01-28] MEDS: Methylnaltrexone Bromide 12 MG/0.6 ML KIT SQ SCH (10:43)
[2018-01-28] MEDS: PANTOPRAZOLE 40 MG TABLET (FP) PO SCH (10:44)
[2018-01-28] MEDS: DULoxetine HCL 30 MG CAPSULE.DR (FP) PO SCH (10:44)
[2018-01-28] MEDS: CARVEDILOL 6.25 MG TABLET (FP) PO SCH (10:44)
[2018-01-28] MEDS: FOLIC ACID 1 MG TABLET (FP) PO SCH (10:44)
[2018-01-28] MEDS: DOCUSATE SODIUM 100 MG CAPSULE (FP) PO SCH (10:45)
[2018-01-28] MEDS: LIPASE/PROTEASE/AMYLASE 36,000 UNIT CAPSULE PO SCH ×2 (10:45→11:34)
[2018-01-28] MEDS: ENOXAPARIN NA (PORCINE) 80 MG/0.8 ML DISP.SYRIN SQ SCH (10:45)
[2018-01-28] MEDS: POLYETHYLENE GLYCOL 3350 119 GM BTL PO SCH (10:46)
--- NOTE | 2018-01-28 11:02 | PN ---
Progress Note, Physician History of Present Illness: Clinically the same. No acute events overnight. Denies nausea, vomiting, abdominal pain. Liver enzymes show slight improvement. - Current Medication List Current Medications: Active Medications Al Hydroxide/Mg Hydroxide (Mylanta Oral Suspension -) 30 ml PO Q6H PRN PRN Reason: DYSPEPSIA Last Admin: 01/26/18 03:36 Dose: 30 ml Albuterol Sulfate (Ventolin 0.083% Nebulizer Soln -) 1 amp NEB Q4H PRN PRN Reason: SHORT OF BREATH/WHEEZING Last Admin: 01/28/18 07:34 Dose: 1 amp Carvedilol (Coreg -) 6.25 mg PO BID [facility] Last Admin: 01/28/18 10:44 Dose: 6.25 mg Docusate Sodium (Colace -) 100 mg PO DAILY [facility] Last Admin: 01/28/18 10:45 Dose: 100 mg Duloxetine HCl (Cymbalta -) 60 mg PO DAILY [facility] Last Admin: 01/28/18 10:44 Dose: 60 mg Enoxaparin Sodium (Lovenox -) 80 mg SQ BID [facility] Last Admin: 01/28/18 10:45 Dose: 80 mg Folic Acid (Folic Acid -) 1 mg PO DAILY [facility] Last Admin: 01/28/18 10:44 Dose: 1 mg Furosemide (Lasix Injection -) 60 mg IVPUSH BID@0600,1400 [facility] Last Admin: 01/28/18 07:12 Dose: 60 mg Piperacillin Sod/Tazobactam (Sod 3.375 gm/ Dextrose) 50 mls @ 100 mls/hr IVPB Q8H-IV MANAN PRN Reason: Protocol Last Admin: 01/28/18 10:43 Dose: 100 mls/hr Insulin Aspart (Novolog Vial Sliding Scale -) 1 vial SQ ACHS [facility] PRN Reason: Protocol Last Admin: 01/28/18 06:39 Dose: Not Given Insulin Detemir (Levemir Vial) 25 units SQ AM [facility] Last Admin: 01/28/18 06:38 Dose: 25 units Insulin Detemir (Levemir Vial) 15 units SQ HS [facility] Last Admin: 01/27/18 21:38 Dose: 15 units Lactulose (Cephulac (Oral Use)) 20 gm PO TID [facility] Last Admin: 01/28/18 06:38 Dose: 20 gm Levothyroxine Sodium 125 mcg/ (Levothyroxine Sodium 50 mcg) 175 mcg PO DAILY@ 0700 [facility] Last Admin: 01/28/18 06:39 Dose: 175 mcg Methylnaltrexone [place] (Relistor -) 12 mg SQ DAILY [facility] Last Admin: 01/28/18 10:43 Dose: 12 mg Metoclopramide HCl (Reglan -) 5 mg PO TIDAC [facility] Last Admin: 01/28/18 10:45 Dose: 5 mg Montelukast Sodium (Singulair -) 10 mg PO HS [facility] Last Admin: 01/27/18 21:37 Dose: 10 mg Pancrelipase (Creon Dr 36,000 Units Capsule) 1 cap PO TIDCM [facility] Last Admin: 01/28/18 10:45 Dose: 1 cap Pantoprazole Sodium (Protonix -) 40 mg PO BID [facility] Last Admin: 01/28/18 10:44 Dose: 40 mg Polyethylene Glycol (Miralax (For Daily Use) -) 17 gm PO BID [facility] Last Admin: 01/28/18 10:46 Dose: Not Given Sodium Chloride ([place] Nasal [place] -) 2 spray NS Q8H PRN PRN Reason: NASAL CONGESTION - Objective Vital Signs: Vital Signs Temperature 97.5 F L 01/28/18 06:00 Pulse Rate 68 01/28/18 06:00 Respiratory Rate 20 01/28/18 06:00 Blood Pressure 112/73 01/28/18 06:00 O2 Sat by Pulse Oximetry (%) 99 01/28/18 07:35 HENT: Yes: Atraumatic Neck: Yes: Supple Cardiovascular: Yes: Regular Rate and Rhythm Respiratory: Yes: Regular Gastrointestinal: Yes: Normal Bowel Sounds, Soft. No: Ascites, Rectal Bleeding , Tenderness, Vomiting Labs: CBC, BMP 01/26/18 06:00 01/27/18 07:30 INR, PTT INR 1.51 (0.82-1.09) H 01/25/18 07:07 Laboratory Last Values WBC 9.4 K/mm3 (4.0-10.0) 01/26/18 06:00 RBC 3.64 M/mm3 (4.00-5.60) L 01/26/18 06:00 Hgb 10.1 GM/dL (11.7-16.9) L 01/26/18 06:00 Hct 30.8 % (35.4-49) L 01/26/18 06:00 MCV 84.6 fl (80-96) 01/26/18 06:00 MCH 27.6 pg (25.7-33.7) 01/26/18 06:00 MCHC 32.7 g/dl (32.0-35.9) 01/26/18 06:00 RDW 17.3 % (11.9-15.9) H 01/26/18 06:00 Plt Count 220 K/MM3 (134-434) 01/26/18 06:00 MPV 9.2 fl (7.5-11.1) 01/26/18 06:00 Neutrophils % 78.1 % (42.8-82.8) 01/25/18 07:07 Lymphocytes % 9.2 % (8-40) 01/25/18 07:07 Monocytes % 8.5 % (3.8-10.2) 01/25/18 07:07 Eosinophils % 3.5 % (0-4.5) 01/25/18 07:07 Basophils % 0.7 % (0-2.0) 01/25/18 07:07 ESR 105 mm/hr (0-20) H 01/18/18 08:28 PT with INR 17.10 SEC (9.7-13.0) H 01/25/18 07:07 INR 1.51 (0.82-1.09) H 01/25/18 07:07 PTT (Actin FS) 36.2 SECONDS (26.9-34.4) H 01/17/18 13:12 Anticoagulation Therapy No Result Required. 01/20/18 16:10 Puncture Site Left radial 01/20/18 16:10 ABG pH 7.36 (7.35-7.45) 01/20/18 16:10 ABG pCO2 at Pt Temp 41.3 mmHg (35-45) 01/20/18 16:10 ABG pO2 at Pt Temp 119.0 mmHg (68-100) H 01/20/18 16:10 ABG HCO3 22.6 meq/L (22-26) 01/20/18 16:10 ABG O2 Sat (Measured) 98.2 % (90-98.9) 01/20/18 16:10 ABG O2 Content 13.7 % vol (15-22) L 01/20/18 16:10 ABG Base Excess -2.2 meq/l (-2-2) L 01/20/18 16:10 Edu Test Positive 01/20/18 16:10 Carboxyhemoglobin 1.5 gm% (0.5-2.0) 01/17/18 15:35 Methemoglobin 1.0 % (0.4-1.5) 01/17/18 15:35 O2 Delivery Device Nc 01/20/18 16:10 Oxygen Flow Rate 3l 01/20/18 16:10 Vent Mode No Result Required. 01/20/18 16:10 Vent Rate No Result Required. 01/20/18 16:10 Mechanical Rate No Result Required. 01/20/18 16:10 Pressure Support Vent No Result Required. 01/20/18 16:10 Sodium 136 mmol/L (136-145) 01/27/18 07:30 Potassium 3.6 mmol/L (3.5-5.1) 01/27/18 07:30 Chloride 97 mmol/L (98-107) L 01/27/18 07:30 Carbon Dioxide 34 mmol/L (21-32) H 01/27/18 07:30 Anion Gap 5 (8-16) L 01/27/18 07:30 BUN 18 mg/dL (7-18) 01/27/18 07:30 Creatinine 1.1 mg/dL (0.7-1.3) 01/27/18 07:30 Creat Clearance w eGFR > 60 (>60) 01/26/18 06:00 POC Glucometer 152 UNITS (80-120) 01/28/18 06:37 Random Glucose 164 mg/dL (74-106) H 01/27/18 07:30 Hemoglobin A1c % 10.5 % (4.8-6.0) H D 01/18/18 08:28 Lactic Acid 1.2 mmol/L (0.0-2.0) 01/19/18 06:17 Calcium 8.3 mg/dL (8.5-10.1) L 01/27/18 07:30 Phosphorus 2.6 mg/dL (2.5-4.9) 01/27/18 07:30 Magnesium 2.4 mg/dL (1.8-2.4) D 01/27/18 07:30 Total Bilirubin 1.0 mg/dL (0.2-1.0) 01/26/18 06:00 AST 23 U/L (15-37) 01/26/18 06:00 ALT 101 U/L (12-78) H D 01/26/18 06:00 Alkaline Phosphatase 304 U/L (45-117) H 01/26/18 06:00 Ammonia 49.93 umol/L (11-32) H 01/26/18 06:00 Creatine Kinase 24 IU/L (39-308) L 01/25/18 01:45 Troponin I 0.03 ng/ml (0.00-0.05) 01/25/18 01:45 C-Reactive Protein 8.8 MG/DL (0.00-0.3) H 01/20/18 10:25 Total Protein 6.7 g/dl (6.4-8.2) 01/26/18 06:00 Albumin 2.5 g/dl (3.4-5.0) L 01/26/18 06:00 Triglycerides 69 mg/dL (35-160) D 01/18/18 08:28 Cholesterol 61 mg/dL (50-200) D 01/18/18 08:28 Total LDL Cholesterol 31 mg/dL (5-100) D 01/18/18 08:28 HDL Cholesterol 31 mg/dL (40-60) L 01/18/18 08:28 Carcinoembryonic Ag 3.8 ng/mL (0.0-4.7) 01/19/18 06:17 CA 19-9 Antigen 13 U/mL (0-35) 01/19/18 06:17 Prostate Specific Ag 0.60 ng/ml (0.0-4.0) 01/19/18 06:17 TSH 0.50 uIU/ml (0.358-3.74) D 01/18/18 08:28 PTH Intact 109 pg/mL (15-65) H 01/25/18 07:07 Urine Color Yellow 01/17/18 12:27 Urine Appearance Clear 01/17/18 12:27 Urine pH 5.0 (5.0-8.0) 01/17/18 12:27 Ur Specific [place] 1.011 (1.001-1.035) 01/17/18 12:27 Urine Protein Negative (NEGATIVE) 01/17/18 12:27 Urine Glucose (UA) 3+ (NEGATIVE) H 01/17/18 12:27 Urine Ketones Negative (NEGATIVE) 01/17/18 12:27 Urine Blood Negative (NEGATIVE) 01/17/18 12:27 Urine Nitrite Negative (NEGATIVE) 01/17/18 12:27 Urine Bilirubin Negative (<2.0 mg/dL) 01/17/18 12:27 Urine Urobilinogen Negative mg/dL (0.2-1.0) 01/17/18 12:27 Ur Leukocyte Esterase Negative (NEGATIVE) 01/17/18 12:27 U Random Total Protein 32 mg/dl (5-11.9) H 01/21/18 21:00 Ur Random Urea Nitrogn 446 mg/dL 01/21/18 21:00 Urine Creatinine 46.0 mg/dL (20-370) 01/21/18 21:00 Salicylates < 1.700 mg/dL 01/17/18 20:47 Opiates Screen Negative ng/ml (YXPXDK=965) 01/17/18 21:40 Methadone Screen Negative ng/ml (MHANEL=926) 01/17/18 21:40 Acetaminophen < 2.000 ug/mL 01/17/18 20:47 Barbiturate Screen Negative ng/ml (RZZCOZ=078) 01/17/18 21:40 Phencyclidine Screen Negative ng/ml (CUTOFF=25) 01/17/18 21:40 Ur Amphetamines Screen Negative ng/ml (YXWJVL=041) 01/17/18 21:40 MDMA (Ecstasy) Screen Negative ng/ml (RMLEZH=386) 01/17/18 21:40 Benzodiazepines Screen Negative ng/ml (GFHALV=634) 01/17/18 21:40 Cocaine Screen Negative ng/ml (MJTBAB=251) 01/17/18 21:40 U Marijuana (THC) Screen Negative ng/ml (CUTOFF=50) 01/17/18 21:40 Hep A IgM Ab Confirm Negative (Negative) 01/24/18 05:35 Hepatitis A Ab Total Positive (Negative) H 01/24/18 05:35 Hep Bs Antigen Negative (Negative) 01/24/18 05:35 Hep Bs Antibody Non reactive (.) 01/24/18 05:35 Hep B Core Total Ab Negative (Negative) 01/24/18 05:35 Hep C Ab Diagnostic <0.1 s/co ratio (0.0-0.9) 01/24/18 05:35 Liver Fibrosis Interp (.) 01/24/18 05:35 Problem List - Problems (1) Hepatitis Code(s): K75.9 - INFLAMMATORY LIVER DISEASE, UNSPECIFIED (2) Intrahepatic cholestasis Code(s): K76.89 - OTHER SPECIFIED DISEASES OF LIVER Assessment/Plan Continue current care. Negative viral serology
[2018-01-28] MEDS ORDERED: INSULIN (NOVOLOG) ASPART 100 UNITS/ML 10ML VIAL ONE (11:31)
--- NOTE | 2018-01-28 12:03 | PN ---
Progress Note, Physician History of Present Illness: PULMONARY ALERT,OOB-CHAIR,-SOB - Current Medication List Current Medications: Active Medications Al Hydroxide/Mg Hydroxide (Mylanta Oral Suspension -) 30 ml PO Q6H PRN PRN Reason: DYSPEPSIA Last Admin: 01/26/18 03:36 Dose: 30 ml Albuterol Sulfate (Ventolin 0.083% Nebulizer Soln -) 1 amp NEB Q4H PRN PRN Reason: SHORT OF BREATH/WHEEZING Last Admin: 01/28/18 07:34 Dose: 1 amp Carvedilol (Coreg -) 6.25 mg PO BID [facility] Last Admin: 01/28/18 10:44 Dose: 6.25 mg Docusate Sodium (Colace -) 100 mg PO DAILY [facility] Last Admin: 01/28/18 10:45 Dose: 100 mg Duloxetine HCl (Cymbalta -) 60 mg PO DAILY [facility] Last Admin: 01/28/18 10:44 Dose: 60 mg Enoxaparin Sodium (Lovenox -) 80 mg SQ BID [facility] Last Admin: 01/28/18 10:45 Dose: 80 mg Folic Acid (Folic Acid -) 1 mg PO DAILY [facility] Last Admin: 01/28/18 10:44 Dose: 1 mg Furosemide (Lasix Injection -) 60 mg IVPUSH BID@0600,1400 [facility] Last Admin: 01/28/18 07:12 Dose: 60 mg Piperacillin Sod/Tazobactam (Sod 3.375 gm/ Dextrose) 50 mls @ 100 mls/hr IVPB Q8H-IV MANAN PRN Reason: Protocol Last Admin: 01/28/18 10:43 Dose: 100 mls/hr Insulin Aspart (Novolog Vial Sliding Scale -) 1 vial SQ ACHS [facility] PRN Reason: Protocol Last Admin: 01/28/18 11:34 Dose: 2 units Insulin Detemir (Levemir Vial) 25 units SQ AM [facility] Last Admin: 01/28/18 06:38 Dose: 25 units Insulin Detemir (Levemir Vial) 15 units SQ HS [facility] Last Admin: 01/27/18 21:38 Dose: 15 units Lactulose (Cephulac (Oral Use)) 20 gm PO TID [facility] Last Admin: 01/28/18 06:38 Dose: 20 gm Levothyroxine Sodium 125 mcg/ (Levothyroxine Sodium 50 mcg) 175 mcg PO DAILY@ 0700 [facility] Last Admin: 01/28/18 06:39 Dose: 175 mcg Methylnaltrexone [place] (Relistor -) 12 mg SQ DAILY [facility] Last Admin: 01/28/18 10:43 Dose: 12 mg Metoclopramide HCl (Reglan -) 5 mg PO TIDAC [facility] Last Admin: 01/28/18 10:45 Dose: 5 mg Montelukast Sodium (Singulair -) 10 mg PO HS [facility] Last Admin: 01/27/18 21:37 Dose: 10 mg Pancrelipase (Creon Dr 36,000 Units Capsule) 1 cap PO TIDCM [facility] Last Admin: 01/28/18 11:34 Dose: 1 cap Pantoprazole Sodium (Protonix -) 40 mg PO BID [facility] Last Admin: 01/28/18 10:44 Dose: 40 mg Polyethylene Glycol (Miralax (For Daily Use) -) 17 gm PO BID [facility] Last Admin: 01/28/18 10:46 Dose: Not Given Sodium Chloride ([place] Nasal [place] -) 2 spray NS Q8H PRN PRN Reason: NASAL CONGESTION - Objective Vital Signs: Vital Signs Temperature 97.5 F L 01/28/18 06:00 Pulse Rate 68 01/28/18 06:00 Respiratory Rate 20 01/28/18 06:00 Blood Pressure 112/73 01/28/18 06:00 O2 Sat by Pulse Oximetry (%) 99 01/28/18 07:35 Constitutional: Yes: Well Nourished, Calm Eyes: Yes: WNL HENT: Yes: WNL Neck: Yes: WNL Cardiovascular: Yes: Pulse Irregular, S1, S2 Respiratory: Yes: Rales (FEW BIBASAILAR RALES) Gastrointestinal: Yes: Normal Bowel Sounds, Soft Extremities: Yes: WNL Edema: Yes Edema: LLE: Trace, RLE: Trace Labs: CBC, BMP Assessment/Plan Problem List - Problems (1) Acute on chronic systolic (congestive) heart failure Code(s): I50.23 - ACUTE ON CHRONIC SYSTOLIC (CONGESTIVE) HEART FAILURE (2) Abdominal fluid collection Code(s): R18.8 - OTHER ASCITES (3) Change in mental status Code(s): R41.82 - ALTERED MENTAL STATUS, UNSPECIFIED Qualifiers: Altered mental status type: unspecified Qualified Code(s): R41.82 - Altered mental status, unspecified (4) CAD (coronary artery disease) Code(s): I25.10 - ATHSCL HEART DISEASE OF [place] CORONARY ARTERY W/O ANG PCTRS Qualifiers: Coronary Disease-Associated Artery/Lesion type: unspecified vessel or lesion type [place] vs. transplanted heart: [place] heart Associated angina: angina presence unspecified Qualified Code(s): I25.10 - Atherosclerotic heart disease of [place] coronary artery without angina pectoris (5) Diabetes Code(s): E11.9 - TYPE 2 DIABETES MELLITUS WITHOUT COMPLICATIONS Qualifiers: Diabetes mellitus type: type 2 Diabetes mellitus complication detail: with other neurological complication (6) Hyponatremia Code(s): E87.1 - HYPO-OSMOLALITY AND HYPONATREMIA improved (7) Atrial fibrillation Code(s): I48.91 - UNSPECIFIED ATRIAL FIBRILLATION Qualifiers: Atrial fibrillation type: paroxysmal Qualified Code(s): I48.0 - Paroxysmal atrial fibrillation Assessment/Plan Intra-abdominal Fluid Collection r/o Sepsis Altered Mental Status Hyponatremia Acute on Chronic Systolic Heart Failure Atrial Fibrillation CAD HTN DM Hypothyroidism h/o Diverticulitis Elevated LFTs Elevated ammonia level - antibiotics per ID - lasix iv - monitor urine output, creatinine - monitor lytes,LFTs - inhaled bronchodilators standing and PRN - O2 to keep SpO2 >90% - rate controlled - f/u chest x-rays - lactulose - monitor ammonia level DR SPRINGER
--- NOTE | 2018-01-28 14:31 | DS ---
Physical Examination Vital Signs: Vital Signs Temperature 97.5 F L 01/28/18 06:00 Pulse Rate 68 01/28/18 06:00 Respiratory Rate 20 01/28/18 06:00 Blood Pressure 112/73 01/28/18 06:00 O2 Sat by Pulse Oximetry (%) 99 01/28/18 07:35 Constitutional: Yes: No Distress Eyes: Yes: WNL HENT: Yes: WNL Neck: Yes: WNL Cardiovascular: Yes: Pulse Irregular Respiratory: Yes: WNL Gastrointestinal: Yes: WNL Renal/: Yes: Bean Present Musculoskeletal: Yes: Muscle Weakness Extremities: Yes: WNL Edema: Yes Peripheral Pulses WNL: Yes Integumentary: Yes: WNL Wound/Incision: Yes: Clean/Dry Neurological: Yes: Confusion, Pre-Existing Deficit ...Motor Strength: LLE, RLE Psychiatric: Yes: Other Labs: CBC, BMP 01/26/18 06:00 01/27/18 07:30 Discharge Summary Reason For Visit: ALTERED MENTAL STATUS Current Active Problems Abdominal fluid collection (Acute) Aspiration into respiratory tract (Acute) Change in mental status (Acute) Controlled diabetes mellitus with diabetic peripheral angiopathy without gangrene, with long-term current use of insulin (Acute) Fever (Acute) Hepatitis (Acute) Intrahepatic cholestasis (Acute) Paroxysmal atrial fibrillation (Acute) Pelvic fluid collection (Acute) Toxic metabolic encephalopathy (Acute) Urinary retention (Acute) Procedures: Principal: CT SCANS Hospital Course: ADMITTED FOR ABDOMINAL COLLECTION OF FLUID, TREATED WITH IV ABX, LASIX, NO SURGERY NEEDED AT THIS TIME. RESTART COUMADIN OUTPATIENT AT SNF AND LOVENOX THEN DC LOVENOX WHEN INR 2-3 THERAPEUTIC LEVEL. Condition: Poor - Instructions Diet, Activity, Other Instructions: ADA DIABETIC CHOPPED DIET DYSPHAGIA, HONEY CONSISTANCY FLUIDS Disposition: [facility] - Home Medications Comprehensive Discharge Medication List: Ambulatory Orders Duloxetine HCl [Cymbalta -] 60 mg PO DAILY 09/25/17 Folic Acid 1 mg PO DAILY 09/25/17 Levothyroxine [Synthroid -] 175 mcg PO DAILY 09/25/17 Albuterol 2.5/Ipratropium 0.5 [Duoneb -] 1 amp NEB RQID amp 12/14/17 Atorvastatin Ca [Lipitor] 80 mg PO HS tablet 12/14/17 Montelukast Na [Singulair -] 10 mg PO HS tablet 12/14/17 Tamsulosin HCl [Flomax -] 0.4 mg PO DAILY@0830 cap.er.24h 12/14/17 Alprazolam 0.25 mg PO TID 01/04/18 Docusate Sodium 100 mg PO DAILY 01/04/18 Furosemide [Lasix -] 40 mg PO BID 01/04/18 Gabapentin 100 mg PO BID 01/04/18 Potassium Chloride [K-Dur -] 20 meq PO DAILY 01/04/18 Warfarin Sodium [Coumadin] 4 mg PO DAILY 01/04/18 Carvedilol [Coreg -] 6.25 mg PO BID #60 tablet 01/15/18 Loratadine [Claritin -] 10 mg PO DAILY tablet 01/15/18 Polyethylene Glycol 3350 [Miralax 119 gm Btl -] 17 gm PO BID bottle 01/15/18 Sodium Chloride Nasal [place] [[place] Nasal [place] -] 2 spray NS TID PRN spray 01/15/18 Albuterol 0.083% Nebulizer [place] [Ventolin 0.083% Nebulizer Soln -] 1 amp NEB Q4H PRN amp 01/28/18 Enoxaparin [Lovenox -] 80 mg SQ BID disp.syrin 01/28/18 Insulin (Levemir) [Levemir Vial] 15 units SQ HS ml 01/28/18 Insulin (Levemir) [Levemir Vial] 25 units SQ AM ml 01/28/18 Insulin Sliding Scale [Novolog Vial Sliding Scale -] 1 vial SQ ACHS units 01/28 Lactulose (Oral Use) [Cephulac -] 20 gm PO TID udc 01/28/18 Levothyroxine [Synthroid -] 175 mcg PO DAILY@0700 tablet 01/28/18 Lipase/Protease/Amylase [Surendra Hayes 36,000 Units Capsule] 1 cap PO TIDCM capsule. 01/28/18 Mag Hydrox/Al Hydrox/Simeth [Mylanta Oral Suspension -] 30 ml PO Q6H PRN cup Methylnaltrexone [place] [Relistor -] 12 mg SQ DAILY kit 01/28/18 Metoclopramide HCl [Reglan -] 5 mg PO TIDAC tablet 01/28/18 Pantoprazole Sodium [Protonix -] 40 mg PO BID tablet.ec 01/28/18 Rifaximin [Xifaxan -] 550 mg PO TID tablet 01/28/18
[2018-01-28 15:14] VITALS: BP 104/63; PULSE 66; TEMP 97.8
== END 2018-01-28 18:11 | DRG 291 ==
LOC: JER 11:45 → JERBED 16:58 → J4S 22:52
PROVIDERS: ADMIT Family Medicine; ATTEND Family Medicine
DX: I50.23 Acute on chronic systolic (congestive) heart failure (principal); G92 Toxic encephalopathy; J96.00 Acute respiratory failure, unspecified whether with hypoxia or hypercapnia; R18.8 Other ascites; I42.8 Other cardiomyopathies; N17.9 Acute kidney failure, unspecified; E87.1 Hypo-osmolality and hyponatremia; T17.800A Unspecified foreign body in other parts of respiratory tract causing asphyxiation, initial encounter; Z79.01 Long term (current) use of anticoagulants; I25.2 Old myocardial infarction; E78.5 Hyperlipidemia, unspecified; E03.9 Hypothyroidism, unspecified; I11.0 Hypertensive heart disease with heart failure; Z87.891 Personal history of nicotine dependence; I25.10 Atherosclerotic heart disease of native coronary artery without angina pectoris; I48.0 Paroxysmal atrial fibrillation; R33.9 Retention of urine, unspecified; E11.65 Type 2 diabetes mellitus with hyperglycemia; K59.00 Constipation, unspecified; Z98.61 Coronary angioplasty status; K58.9 Irritable bowel syndrome, unspecified; F32.9 Major depressive disorder, single episode, unspecified; Z95.0 Presence of cardiac pacemaker; J44.9 Chronic obstructive pulmonary disease, unspecified; E11.40 Type 2 diabetes mellitus with diabetic neuropathy, unspecified; E66.9 Obesity, unspecified; Z68.34 Body mass index [BMI] 34.0-34.9, adult; E87.5 Hyperkalemia; I71.2 Thoracic aortic aneurysm, without rupture; E11.51 Type 2 diabetes mellitus with diabetic peripheral angiopathy without gangrene; K76.89 Other specified diseases of liver; K75.9 Inflammatory liver disease, unspecified; X58.XXXA Exposure to other specified factors, initial encounter; Y92.238 Other place in hospital as the place of occurrence of the external cause; Y93.89 Activity, other specified; Y99.8 Other external cause status; Z79.4 Long term (current) use of insulin
CPT/HCPCS: 36415; 36600; 70450-TC; 71045-TC-FY; 71250-TC; 74176-TC; 74230-TC-FY; 80048; 80053; 80061; 80307; 81003; 82140; 82375; 82378; 82550; 82570; 82803; 82962; 83036; 83050; 83605; 83721; 83735; 83970; 84100; 84153; 84156; 84443; 84484; 84540; 85025; 85027; 85610; 85651; 85730; 86140; 86301; 86704; 86706; 86708; 87040; 87086; 87340; 92611-GN; 93005; 93010; 94640; 94660; 97116-GP; 97161-GP; 99285-25; J7030; J7620